=== PATIENT | female | born 1965 | race Caucasian/White ===

== ENCOUNTER 2018-01-29 10:31 | Emergency (ER) | payer OTHER ==
[2018-01-29] MEDS ORDERED: NA CHLORIDE 0.9% 1,000 ML ONE ×2 (11:07→14:00)
[2018-01-29 11:28] LABS: Absolute Lymphocytes (CBC) 1.4 K/uL (0.7-4.9); Absolute Monocytes 0.5 K/uL (0.1-1.3); Absolute Neutrophil 3.6 K/uL (1.8-8.0); Basophils % 0.4 % (0-1.3); Eosinophils % 4.3 % (0-4.4); Hematocrit 34.6 % (36.0-45.0); Lymphocytes % 24.4 % (15.3-44.8); MCH 30.3 pg (27.0-35.0); MCV 88.1 fL (80-100); MPV 8.1 fL (7.6-11.3); Monocytes % 9.3 % (3.3-12.3); RBC Red Blood Cell Count 3.92 M/uL (3.86-4.86)
[2018-01-29 11:34] LABS: Bicarbonate 22 mEq/L (21-31); Glucose Level 131 mg/dL (65-120); Lipase 32 U/L (22-51); Potassium 3.6 mEq/L (3.6-5.0); Sodium Level 135 mEq/L (135-145)
[2018-01-29 11:40] LABS: ALT/SGPT 38 IU/L (10-60); AST/SGOT 22 IU/L (10-42); Albumin 4.1 g/dL (3.2-5.5); Alkaline Phosphatase 169 IU/L (42-121); BUN Blood Urea Nitrogen 5 mg/dL (6-20); Bilirubin Direct < 0.1 mg/dL (0-0.2); Bilirubin Total 0.4 mg/dL (0.3-1.2); Protein, Total 6.5 g/dL (6.0-8.3)
[2018-01-29] MEDS ORDERED: MECLIZINE HCL 12.5 MG TAB ONE (14:00)
--- NOTE | 2018-01-29 14:06 | RAD REPORT ---
EXAM DESCRIPTION: CT - Head Brain Wo Cont - 01/29/2018 1:56 pm CLINICAL HISTORY: Weakness, headache COMPARISON: None. TECHNIQUE: Axial 5 mm thick images of the head were obtained without IV contrast. All CT scans are performed using dose optimization technique as appropriate and may include automated exposure control or mA/KV adjustment according to patient size. FINDINGS: No intracranial hemorrhage, mass, edema or shift of mid-line structures. No acute infarcti on changes seen. No abnormal extra-axial fluid collections. Ventricles are normal. Mastoid air cells and visualized portions of the paranasal sinuses are clear. No acute bony findings. IMPRESSION: Negative non-contrast CT head examination.
--- NOTE | 2018-01-29 15:31 | EDPHYS ---
Physician Documentation [facility] Name: Janice Bosch Age: 52 yrs Sex: Female : 1965 Arrival Date: 01/29/2018 Time: 10:35 Bed 17 Private MD: ED Physician Rob Davis HPI: 01/29 11:04 This 52 yrs old Female presents to ER via Ambulatory with complaints of pm1 Weakness, Decreased Appetite. 11:04 Patient reports flu like symptoms that started two weeks ago that have improved. pm1 Patient initial presentation of symptoms two weeks ago started with a sore throat and a cough. No fevers. Patient's sore throat and cough have resolved but she reports feeling generalized body aches. She reports that her body aches are no different than her chronic fibromyalgia pain. She has not been eating well for the past few days. No nausea, vomiting, or diarrhea. No abdominal pain present. NURSE HEAD: 14:17 LMP N/A - Irregular menses em Historical: - Allergies: 10:43 Reglan; hb 10:43 Requip; hb - Home Meds: 10:43 gabapentin 300 mg Oral cap 2 caps 3 times per day [Active]; amlodipine 5 mg tab once hb daily for Hypertension [Active]; Protonix 40 mg Oral TbEC once daily [Active]; Prozac 40 mg Oral cap 1 cap once daily [Active]; Zanaflex Oral at bedtime [Active]; ziprasidone HCl 60 mg Oral cap at bedtime [Active]; - PMHx: 10:43 Bipolar disorder; bowel obstruction; Fibromyalgia; Hypertension; Migraines; hb - PSHx: 10:43 Hysterectomy; ; Cholecystectomy; Appendectomy; Gastric Bypass; bowel hb obstruction (X 2); - Immunization history:: Adult Immunizations up to date. - Social history:: Smoking status: Patient/guardian denies using tobacco. ROS: 11:04 Eyes: Negative for injury, pain, redness, and discharge, ENT: Negative for injury, pm1 pain, and discharge, Neck: Negative for injury, pain, and swelling, Cardiovascular: Negative for chest pain, palpitations, and edema, Respiratory: Negative for shortness of breath, cough, wheezing, and pleuritic chest pain, Abdomen/GI: Negative for abdominal pain, nausea, vomiting, diarrhea, and constipation, Back: Negative for injury and pain, MS/Extremity: Negative for injury and deformity, Skin: Negative for injury, rash, and discoloration. 11:04 Constitutional: Positive for body aches, poor PO intake, Negative for chills, fever. 11:04 Neuro: Positive for headache, weakness, Negative for numbness, syncope, near syncope, tingling. Exam: 11:04 Constitutional: This is a well developed, well nourished patient who is awake, alert, pm1 and in no acute distress. Head/Face: Normocephalic, atraumatic. Eyes: Pupils equal round and reactive to light, extra-ocular motions intact. Lids and lashes normal. Conjunctiva and sclera are non-icteric and not injected. Cornea within normal limits. Periorbital areas with no swelling, redness, or edema. ENT: Nares patent. No nasal discharge, no septal abnormalities noted. Tympanic membranes are normal and external auditory canals are clear. Oropharynx with no redness, swelling, or masses, exudates, or evidence of obstruction, uvula midline. Mucous membranes moist. Neck: Trachea midline, no thyromegaly or masses palpated, and no cervical lymphadenopathy. Supple, full range of motion without nuchal rigidity, or vertebral point tenderness. No Meningismus. Chest/axilla: Normal chest wall appearance and motion. Nontender with no deformity. No lesions are appreciated. Cardiovascular: Regular rate and rhythm with a normal S1 and S2. No gallops, murmurs, or rubs. No pulse deficits. Respiratory: Lungs have equal breath sounds bilaterally, clear to auscultation and percussion. No rales, rhonchi or wheezes noted. No increased work of breathing, no retractions or nasal flaring. Abdomen/GI: Soft, non-tender, with normal bowel sounds. No distension or tympany. No guarding or rebound. No evidence of tenderness throughout. Back: No spinal tenderness. No costovertebral tenderness. Full range of motion. Skin: Warm, dry with normal turgor. Normal color with no rashes, no lesions, and no evidence of cellulitis. MS/ Extremity: Pulses equal, no cyanosis. Neurovascular intact. Full, normal range of motion. 11:04 Neuro: Orientation: is normal, Mentation: is normal, Cerebellar function: normal finger to nose testing, Motor: is normal, Sensation: is normal, no obvious gross deficits, Gait: is steady, at a normal pace, without difficulty. Vital Signs: 10:43 BP 92 / 67; Pulse 57; Resp 16; Temp 98; Pulse Ox 100% on R/A; Weight 63.5 kg; Height 5 hb ft. 2 in. (157.48 cm); Pain 7/10; 11:00 BP 110 / 71; Pulse 51; Resp 16; Pulse Ox 99% on R/A; Pain 0/10; em 12:05 BP 109 / 69; Pulse 49; Resp 18; Pulse Ox 99% on R/A; em 12:58 BP 100 / 60; Pulse 48; Resp 18; Pulse Ox 100% on R/A; em 14:05 BP 110 / 56; Pulse 48; Resp 18; Pulse Ox 99% on R/A; em 15:05 BP 141 / 84; Pulse 53; Resp 16; Pulse Ox 100% on R/A; em 15:59 BP 116 / 76; Pulse 54; Resp 18; Temp 97.8(O); Pulse Ox 100% on R/A; Pain 0/10; em 10:43 Body Mass Index 25.61 (63.50 kg, 157.48 cm) hb MDM: 10:49 Patient medically screened. pm1 13:30 ED course: Patient with history of vertigo and feels same sensation of spinning. pm1 Patient has taken medications for it with improvement in the past. 15:27 ED course: Patient is feeling better and hungry and wants to go home to eat. Patient pm1 feeling better after medications and NS given in the the ER.. 15:27 Data reviewed: vital signs. Data interpreted: Pulse oximetry: on room air is 100 %. pm1 Interpretation: normal. Counseling: I had a detailed discussion with the patient and/or guardian regarding: the historical points, exam findings, and any diagnostic results supporting the discharge/admit diagnosis, lab results, radiology results, the need for outpatient follow up, to return to the emergency department if symptoms worsen or persist or if there are any questions or concerns that arise at home. 01/29 10:59 Order name: Basic Metabolic Panel; Complete Time: 12:04 pm1 01/29 10:59 Order name: CBC with Diff; Complete Time: 12:04 pm1 01/29 10:59 Order name: Hepatic Function; Complete Time: 12:04 pm1 01/29 10:59 Order name: Lipase; Complete Time: 12:04 pm1 01/29 11:22 Order name: Glucose, Ancillary Testing; Complete Time: 12:04 EDMS 01/29 13:30 Order name: CT Head Brain wo Cont; Complete Time: 14:07 pm1 01/29 10:59 Order name: IV Saline Lock; Complete Time: 11:24 pm1 01/29 10:59 Order name: Labs collected and sent; Complete Time: 11:24 pm1 01/29 10:59 Order name: Urine Dipstick-Ancillary (obtain specimen); Complete Time: 12:23 pm1 Administered Medications: 11:25 Drug: NS 0.9% 1000 ml Route: IV; Rate: 1000 ml; Site: right antecubital; em 15:30 Follow up: IV Status: Completed infusion; IV Intake: 1000ml em 14:12 Drug: Meclizine 50 mg Route: PO; em 15:30 Follow up: Response: No adverse reaction em 14:12 Drug: NS 0.9% 1000 ml Route: IV; Rate: 1000 ml; Site: right antecubital; em 15:30 Follow up: IV Status: Completed infusion; IV Intake: 1000ml em Disposition: 18:55 Co-signature as Attending Physician, Rob Davis MD. Disposition: 01/29/18 15:30 Discharged to Home. Impression: Headache, Benign paroxysmal vertigo. - Condition is Stable. - Discharge Instructions: Benign Positional Vertigo, General Headache Without Cause. - Prescriptions for Meclizine 25 mg Oral Tablet - take 1 tablet by ORAL route every 8 hours As needed; 30 tablet. - Medication Reconciliation Form, Thank You Letter form. - Follow up: Emergency Department; When: As needed; Reason: Worsening of condition. Follow up: Private Physician; When: 2 - 3 days; Reason: Recheck today's complaints, Continuance of care, Re-evaluation by your physician. - Problem is new. - Symptoms have improved. Signatures: Dispatcher [employer] EDMS Zackary Ibarra, PUBLISHING DIRECTOR PUBLISHING DIRECTOR em Nik Griffin, HI LOW TRUCK DRIVER HI LOW TRUCK DRIVER pm1 Ashley Toledo, RN RN Rob Brown MD MD
--- NOTE | 2018-01-29 15:31 | ER ---
Nurse's Notes [facility] Name: Janice Bosch Age: 52 yrs Sex: Female : 1965 Arrival Date: 01/29/2018 Time: 10:35 Bed 17 Private MD: Diagnosis: Headache;Benign paroxysmal vertigo Presentation: 01/29 10:41 Presenting complaint: Patient states: I had the flu 2 weeks ago, and most of my hb symptoms have resolved but I still feel very weak, have a headache, body aches, and have no energy. 10:41 Method Of Arrival: Ambulatory hb 10:42 Transition of care: patient was not received from another setting of care. Onset of hb symptoms is unknown. Care prior to arrival: None. 10:42 Acuity: BONITA 3 hb 10:42 Initial Sepsis Screen: Does the patient meet any 2 criteria? No. Patient's initial hb sepsis screen is negative. Does the patient have a suspected source of infection? No. Patient's initial sepsis screen is negative. 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: 14:17 LMP N/A - Irregular menses em Historical: - Allergies: 10:43 Reglan; hb 10:43 Requip; hb - Home Meds: 10:43 gabapentin 300 mg Oral cap 2 caps 3 times per day [Active]; amlodipine 5 mg tab once hb daily for Hypertension [Active]; Protonix 40 mg Oral TbEC once daily [Active]; Prozac 40 mg Oral cap 1 cap once daily [Active]; Zanaflex Oral at bedtime [Active]; ziprasidone HCl 60 mg Oral cap at bedtime [Active]; - PMHx: 10:43 Bipolar disorder; bowel obstruction; Fibromyalgia; Hypertension; Migraines; hb - PSHx: 10:43 Hysterectomy; ; Cholecystectomy; Appendectomy; Gastric Bypass; bowel hb obstruction (X 2); - Immunization history:: Adult Immunizations up to date. - Social history:: Smoking status: Patient/guardian denies using tobacco. Screenin:42 Abuse screen: Denies threats or abuse. Nutritional screening: No deficits noted. em Tuberculosis screening: No symptoms or risk factors identified. Fall Risk None identified. Assessment: 11:12 General: Appears in no apparent distress. uncomfortable, Behavior is calm, cooperative. em Pain: Denies pain. Neuro: Level of Consciousness is awake, alert, obeys commands, Oriented to person, place, time, situation, Moves all extremities. Speech is normal, Pupils are PERRLA. Cardiovascular: Capillary refill < 3 seconds Patient's skin is warm and dry. Cardiovascular: Heart tones S1 S2 present. Respiratory: Airway is patent Respiratory effort is even, unlabored, Breath sounds are clear bilaterally. GI: Abdomen is flat, non-distended. GI: Reports nausea, vomiting, Patient currently denies diarrhea. : Denies. EENT: No signs and/or symptoms were reported regarding the EENT system. Derm: Skin is intact, Skin is pink, warm \T\ dry. Musculoskeletal: Range of motion: intact in all extremities. 11:20 Reassessment: Patient appears in no apparent distress at this time. No changes from iw previously documented assessment. I agree with above assessment by Zackary Ibarra LVN. 12:05 Reassessment: Patient appears in no apparent distress at this time. Patient and/or em family updated on plan of care and expected duration. Pain level reassessed. Patient is alert, oriented x 3, equal unlabored respirations, skin warm/dry/pink. Patient states symptoms have not improved. 12:56 Reassessment: Patient appears in no apparent distress at this time. Patient and/or em family updated on plan of care and expected duration. Pain level reassessed. Patient is alert, oriented x 3, equal unlabored respirations, skin warm/dry/pink. pt reports having a history of vertigo, sti c/o dizziness. Patient states symptoms have not improved. 14:17 Reassessment: Patient appears in no apparent distress at this time. Patient and/or em family updated on plan of care and expected duration. Pain level reassessed. Patient is alert, oriented x 3, equal unlabored respirations, skin warm/dry/pink. 15:30 Reassessment: Patient appears in no apparent distress at this time. Patient and/or em family updated on plan of care and expected duration. Pain level reassessed. Patient is alert, oriented x 3, equal unlabored respirations, skin warm/dry/pink. Vital Signs: 10:43 BP 92 / 67; Pulse 57; Resp 16; Temp 98; Pulse Ox 100% on R/A; Weight 63.5 kg; Height 5 hb ft. 2 in. (157.48 cm); Pain 7/10; 11:00 BP 110 / 71; Pulse 51; Resp 16; Pulse Ox 99% on R/A; Pain 0/10; em 12:05 BP 109 / 69; Pulse 49; Resp 18; Pulse Ox 99% on R/A; em 12:58 BP 100 / 60; Pulse 48; Resp 18; Pulse Ox 100% on R/A; em 14:05 BP 110 / 56; Pulse 48; Resp 18; Pulse Ox 99% on R/A; em 15:05 BP 141 / 84; Pulse 53; Resp 16; Pulse Ox 100% on R/A; em 15:59 BP 116 / 76; Pulse 54; Resp 18; Temp 97.8(O); Pulse Ox 100% on R/A; Pain 0/10; em 10:43 Body Mass Index 25.61 (63.50 kg, 157.48 cm) hb ED Course: 10:35 Patient arrived in ED. mr 10:44 Arm band placed on right wrist. hb 10:46 Ashley Toledo, RN is Primary Nurse. hb 10:47 Nik Griffin NP is PHCP. pm1 10:47 Rob Davis MD is Attending Physician. pm1 10:48 Triage completed. hb 11:04 Zackary Ibarra LVN is Primary Nurse. em 11:25 Patient has correct armband on for positive identification. Placed in gown. Bed in low em position. Call light in reach. Side rails up X2. Adult w/ patient. 11:25 Initial lab(s) drawn, by me, sent to lab. Inserted saline lock: 22 gauge in right em antecubital area, using aseptic technique. Blood collected. 13:55 CT completed. Patient tolerated procedure well. Patient moved back from CT. cw1 13:56 CT Head Brain wo Cont In Process Unspecified. EDMS 14:18 No provider procedures requiring assistance completed. em 15:58 IV discontinued, intact, bleeding controlled, No redness/swelling at site. Pressure em dressing applied. Administered Medications: 11:25 Drug: NS 0.9% 1000 ml Route: IV; Rate: 1000 ml; Site: right antecubital; em 15:30 Follow up: IV Status: Completed infusion; IV Intake: 1000ml em 14:12 Drug: Meclizine 50 mg Route: PO; em 15:30 Follow up: Response: No adverse reaction em 14:12 Drug: NS 0.9% 1000 ml Route: IV; Rate: 1000 ml; Site: right antecubital; em 15:30 Follow up: IV Status: Completed infusion; IV Intake: 1000ml em Intake: 15:30 IV: 1000ml; Total: 1000ml. em 15:30 IV: 1000ml; Total: 2000ml. em Outcome: 15:30 Discharge ordered by MD. pm1 15:59 Discharged to home ambulatory. em 15:59 Condition: good 15:59 Discharge instructions given to patient, family, Instructed on discharge instructions, follow up and referral plans. medication usage, Demonstrated understanding of instructions, follow-up care, medications, Prescriptions given X 1. 16:00 Patient left the ED. em Signatures: Dispatcher [employer] EDShannan Cunningham, Zackary, TUMBLER DYEING MACHINE OPERATOR TUMBLER DYEING MACHINE OPERATOR em Lesley Wright, Franchesca Corona RN cw1 Nik Griffin, PUNCH PRESS FEEDER PUNCH PRESS FEEDER pm1 Ashley Toledo RN RN hb Corrections: (The following items were deleted from the chart) 10:48 10:42 Initial Sepsis Screen: Does the patient meet any 2 criteria? hb hb
[2018-01-29 16:10] VITALS: O2SAT 100
[2018-01-29 16:11] VITALS: BP 116/76; TEMP 97.8
== END 2018-01-29 16:00 | disposition home or self-care (01) ==
LOC: ER 10:31
DX: H81.10 Benign paroxysmal vertigo, unspecified ear (principal); I10 Essential (primary) hypertension; F31.9 Bipolar disorder, unspecified; Z88.8 Allergy status to other drugs, medicaments and biological substances
CPT/HCPCS: 36415; 70450; 80048; 80076; 82962; 83690; 85025; 96360; 96361; 99284; J7030 ×2

== ENCOUNTER 2018-02-11 12:39 | Emergency (ER) | payer OTHER ==
--- NOTE | 2018-02-11 13:35 | ER ---
Nurse's Notes [facility] Name: Janice Bosch Age: 52 yrs Sex: Female : 1965 Arrival Date: 02/11/2018 Time: 12:43 Bed 23 Private MD: Davin Platt Diagnosis: Encounter for wound check Presentation: 02/11 12:51 Presenting complaint: Patient states: I had sx on my lower back between L4-L5 for pain la1 and my wound has opened back up and is draining clear/blood fluid. Transition of care: patient was not received from another setting of care. Onset of symptoms was February 11, 2018. Initial Sepsis Screen: Does the patient meet any 2 criteria? No. Patient's initial sepsis screen is negative. Does the patient have a suspected source of infection? No. Patient's initial sepsis screen is negative. Care prior to arrival: None. 12:51 Method Of Arrival: Wheelchair la1 12:51 Acuity: BONITA 3 la1 YOKE SETTER: 13:11 LMP N/A - Post-menopause tl3 Historical: - Allergies: 12:52 Reglan; la1 12:52 Requip; la1 - Home Meds: 13:13 amlodipine 5 mg tab once daily for Hypertension [Active]; gabapentin 300 mg Oral cap 2 tl3 caps 3 times per day [Active]; Protonix 40 mg Oral TbEC once daily [Active]; Prozac 40 mg Oral cap 1 cap once daily [Active]; ziprasidone HCl 60 mg Oral cap at bedtime [Active]; Zanaflex Oral at bedtime [Active]; - PMHx: 12:52 Bipolar disorder; bowel obstruction; Fibromyalgia; Hypertension; Migraines; la1 - PSHx: 12:52 ; Cholecystectomy; Appendectomy; Hysterectomy; la1 - Immunization history:: Adult Immunizations up to date. - Social history:: Smoking status: Patient/guardian denies using tobacco. Screenin:07 Abuse screen: Denies threats or abuse. Nutritional screening: No deficits noted. tl3 Tuberculosis screening: No symptoms or risk factors identified. Fall Risk None identified. Assessment: 13:07 General: Appears distressed, uncomfortable, well groomed, well developed, well tl3 nourished, Behavior is calm, cooperative, appropriate for age. Pain: Complains of pain in lumbar area Pain currently is 7 out of 10 on a pain scale. Neuro: Level of Consciousness is awake, alert, obeys commands, Oriented to person, place, time, situation, Appropriate for age. Cardiovascular: No deficits noted. Heart tones S1 S2 present Capillary refill < 3 seconds in bilateral fingers. Respiratory: Breath sounds are clear bilaterally. GI: No signs and/or symptoms were reported involving the gastrointestinal system. : No signs and/or symptoms were reported regarding the genitourinary system. EENT: No signs and/or symptoms were reported regarding the EENT system. Derm: No signs and/or symptoms reported regarding the dermatologic system. Derm: Wound noted lumbar area. Musculoskeletal:. 13:07 Reassessment: pt reports spinal surgery on Tuesday, drainage coming from surgical tl3 site. Dressing changed and site looks WNL, no redness and small amt of bloody discharge noted, site well approximated. Vital Signs: 12:52 BP 147 / 85; Pulse 97; Resp 16; Temp 98.2; Pulse Ox 100% on R/A; Weight 65.77 kg; la1 Height 5 ft. 2 in. (157.48 cm); 13:07 BP 138 / 79; Pulse 85; Resp 18; Pulse Ox 96% on R/A; tl3 13:07 BP 139 / 74; Pulse 84; Resp 18; Pulse Ox 100% on R/A; tl3 12:52 Body Mass Index 26.52 (65.77 kg, 157.48 cm) la1 ED Course: 12:43 Patient arrived in ED. mr 12:43 Davin Platt, DO is Private Physician. mr 12:52 Triage completed. la1 12:53 Arm band placed on left wrist. la1 13:01 Alyssa Braga, LEONID is Primary Nurse. tl3 13:01 Eric Zarco PA is PHCP. jr8 13:01 Mj Jang MD is Attending Physician. jr8 13:07 No apparent distress. Awaiting ED provider evaluation. tl3 13:07 Patient has correct armband on for positive identification. Bed in low position. Call tl3 light in reach. Side rails up X 1. Adult w/ patient. Pulse ox on. NIBP on. 13:07 No provider procedures requiring assistance completed. tl3 13:07 Dressings: Band aid x 1 back and lumbar area non-adherent dressing x 1 back and lumbar tl3 area. Wound care:. Wound care: located on lumbar area Patient tolerated well. Administered Medications: No medications were administered Outcome: 13:34 Discharge ordered by MD. ram 14:01 Patient left the ED. tl3 Signatures: Shannan Angel mr Eric Zarco PA PA jr8 Ernst Flaherty RN RN la1 Alyssa Braga RN RN tl3
--- NOTE | 2018-02-11 13:35 | EDPHYS ---
Physician Documentation [facility] Name: Janice Bosch Age: 52 yrs Sex: Female : 1965 Arrival Date: 02/11/2018 Time: 12:43 Bed 23 Private MD: Lc [facility] ED Physician Mj Jang HPI: 02/11 13:34 This 52 yrs old Female presents to ER via Wheelchair with complaints of jr8 Surgical sight reopened. 13:34 Patient presents to ED for recheck of: incision site. The affected area is on the back. jr8 The patient has not experienced similar symptoms in the past. The patient has not recently seen a physician. Patient had recent spinal surgery. Noted to have drainage from wound last night. Concerned for infection . 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 N/A - Post-menopause tl3 Historical: - Allergies: 12:52 Reglan; la1 12:52 Requip; la1 - Home Meds: 13:13 amlodipine 5 mg tab once daily for Hypertension [Active]; gabapentin 300 mg Oral cap 2 tl3 caps 3 times per day [Active]; Protonix 40 mg Oral TbEC once daily [Active]; Prozac 40 mg Oral cap 1 cap once daily [Active]; ziprasidone HCl 60 mg Oral cap at bedtime [Active]; Zanaflex Oral at bedtime [Active]; - PMHx: 12:52 Bipolar disorder; bowel obstruction; Fibromyalgia; Hypertension; Migraines; la1 - PSHx: 12:52 ; Cholecystectomy; Appendectomy; Hysterectomy; la1 - Immunization history:: Adult Immunizations up to date. - Social history:: Smoking status: Patient/guardian denies using tobacco. ROS: 13:34 Eyes: Negative for injury, pain, redness, and discharge, ENT: Negative for injury, jr8 pain, and discharge, Neck: Negative for injury, pain, and swelling, Cardiovascular: Negative for chest pain, palpitations, and edema, Respiratory: Negative for shortness of breath, cough, wheezing, and pleuritic chest pain, Abdomen/GI: Negative for abdominal pain, nausea, vomiting, diarrhea, and constipation, Back: Negative for injury and pain, MS/Extremity: Negative for injury and deformity, Neuro: Negative for headache, weakness, numbness, tingling, and seizure. 13:34 Skin: Positive for drainage from incision site. Exam: 13:34 Cardiovascular: Regular rate and rhythm with a normal S1 and S2. No gallops, murmurs, jr8 or rubs. Normal PMI, no JVD. No pulse deficits. Respiratory: Lungs have equal breath sounds bilaterally, clear to auscultation and percussion. No rales, rhonchi or wheezes noted. No increased work of breathing, no retractions or nasal flaring. Back: No spinal tenderness. No costovertebral tenderness. Full range of motion. MS/ Extremity: Pulses equal, no cyanosis. Neurovascular intact. Full, normal range of motion. Neuro: Awake and alert, GCS 15, oriented to person, place, time, and situation. Cranial nerves II-XII grossly intact. Motor strength 5/5 in all extremities. Sensory grossly intact. Cerebellar exam normal. Normal gait. 13:34 Skin: approximately 3 inch incision noted to low back midline. Serous drainage noted. No exudative discharge seen or expressed. No surrounding erythema or cellulitis. Mild tenderness to palpation . Vital Signs: 12:52 BP 147 / 85; Pulse 97; Resp 16; Temp 98.2; Pulse Ox 100% on R/A; Weight 65.77 kg; la1 Height 5 ft. 2 in. (157.48 cm); 13:07 BP 138 / 79; Pulse 85; Resp 18; Pulse Ox 96% on R/A; tl3 13:07 BP 139 / 74; Pulse 84; Resp 18; Pulse Ox 100% on R/A; tl3 12:52 Body Mass Index 26.52 (65.77 kg, 157.48 cm) la1 MDM: 13:01 Patient medically screened. jr8 13:31 Data reviewed: vital signs, nurses notes, and as a result, I will discharge patient. jr8 Data interpreted: Pulse oximetry: on room air is 96 %. Interpretation: normal. Counseling: I had a detailed discussion with the patient and/or guardian regarding: the historical points, exam findings, and any diagnostic results supporting the discharge/admit diagnosis, the need for outpatient follow up, spinal surgeon, to return to the emergency department if symptoms worsen or persist or if there are any questions or concerns that arise at home. ED course: Detailed discussion with patient and family that at this time incision site is without discharge, erythema, or surrounding cellulitis. Small amount of serous fluid noted. Mild tenderness to palpation. No fluctuance under wound. More then likely the fluid that was draining last night which we saw today was a seroma. No other signs for infection. Precautions given to watch for fever and increased pain. Patient would f/u with surgeon or come back . 02/11 13:26 Order name: Wound dressing; Complete Time: 13:35 jr8 Administered Medications: No medications were administered Disposition: 02/11/18 13:34 Discharged to Home. Impression: Encounter for wound check . - Condition is Stable. - Discharge Instructions: Incision Care. - Medication Reconciliation Form, Thank You Letter, Antibiotic Education, Prescription Opioid Use form. - Follow up: Private Physician; When: 7 - 10 days; Reason: Recheck today's complaints, Continuance of care, Re-evaluation by your physician. - Problem is new. - Symptoms have improved. Addendum: 02/13/2018 08:55 Co-signature as Attending Physician, Mj Jang MD I agree with the assessment and c nicholas plan of care. Signatures: Mj Jang MD MD cha Roszak, Josh, PA PA jr8 Ernst Flaherty, RN RN la1 Alyssa Braga, RN RN tl3 Corrections: (The following items were deleted from the chart) 02/11 14:01 13:34 02/11/2018 13:34 Discharged to Home. Impression: Encounter for wound check . tl3 Condition is Stable. Forms are Medication Reconciliation Form, Thank You Letter, Antibiotic Education, Prescription Opioid Use. Follow up: Private Physician; When: 7 - 10 days; Reason: Recheck today's complaints, Continuance of care, Re-evaluation by your physician. Problem is new. Symptoms have improved. jr8
[2018-02-11 14:05] VITALS: TEMP 98.2
[2018-02-11 14:06] VITALS: BP 138/79; O2SAT 96
== END 2018-02-11 14:01 | disposition home or self-care (01) ==
LOC: ER 12:39
DX: Z48.01 Encounter for change or removal of surgical wound dressing (principal); I10 Essential (primary) hypertension; F31.9 Bipolar disorder, unspecified; Z88.8 Allergy status to other drugs, medicaments and biological substances
CPT/HCPCS: 99283

== ENCOUNTER 2018-10-18 10:54 | Emergency (ER) | payer OTHER ==
--- OUTSIDE RECORDS SUMMARY | 2018-10-18 10:57 | XMS REPORT ---
:1965 Author Organization [employer] Care Team Providers Name Role Phone Lc Davin Provider Role Unavailable Allergies No Known Allergies Problems Problem Type Condition Code Onset Dates Condition Status Problem Irritable bowel syndrome, K58.9 Active unspecified type Problem Bipolar disorder F31.9 Active Problem Migraine without aura and without G43.009 Active status migrainosus, not intractable Problem Solitary cyst of left breast N60.02 Active Problem Benign essential hypertension I10 Active Problem Depression with anxiety F41.8 Active Problem GERD without esophagitis K21.9 Active Problem Constipation, unspecified K59.00 Active constipation type Problem Nausea R11.0 Active Problem Back pain with left-sided M54.10 Active radiculopathy Problem History of intussusception Z87.19 Active Problem Hemorrhoids, unspecified hemorrhoid K64.9 Active type Problem Fibromyalgia M79.7 Active Medications No Known Medications Results No Known Results Summary Purpose [employer] SBV Submission
--- OUTSIDE RECORDS SUMMARY | 2018-10-18 10:57 | XMS REPORT ---
:1965 Author Organization [employer] Care Team Providers Name Role Phone Lc [facility] Provider Role Unavailable Allergies, Adverse Reactions, Alerts Substance Reaction Event Type Requip Info Not Available Drug Allergy Reglan Info Not Available Drug Allergy surgical tape Info Not Available Non Drug Allergy Problems Problem Type Condition Code Onset Dates Condition Status Problem Irritable bowel syndrome, K58.9 Active unspecified type Problem Bipolar disorder F31.9 Active Problem Migraine without aura and without G43.009 Active status migrainosus, not intractable Problem GERD without esophagitis K21.9 Active Assessment GERD without esophagitis K21.9 Active Problem Constipation, unspecified K59.00 Active constipation type Assessment Hemorrhoids, unspecified hemorrhoid K64.9 Active type Assessment Fibromyalgia M79.7 Active Problem Nausea R11.0 Active Problem Back pain with left-sided M54.10 Active radiculopathy Problem History of intussusception Z87.19 Active Problem Hemorrhoids, unspecified hemorrhoid K64.9 Active type Problem Fibromyalgia M79.7 Active Assessment Benign essential hypertension I10 Active Assessment Depression with anxiety F41.8 Active Assessment Nausea R11.0 Active Assessment Bipolar disorder F31.9 Active Problem Solitary cyst of left breast N60.02 Active Assessment Migraine without aura and without G43.009 Active status migrainosus, not intractable Problem Benign essential hypertension I10 Active Assessment Constipation, unspecified K59.00 Active constipation type Assessment Back pain with left-sided M54.10 Active radiculopathy Problem Depression with anxiety F41.8 Active Medications Medication Code Code Instructions Start End Status Dosage System Date Date Clonazepam [facility] 86502971805 0.5 MG Orally Active 1 tablet at Once a day PRN bedtime Anxiety Prozac [facility] 23499600580 40 MG Orally Active 1 capsule Once a day Propranolol HCl ND 14961640075 10 MG Orally Active 1 tablet on an Twice a day empty stomach Zanaflex [facility] 81275932009 4 MG Orally Active 1 capsule as Once at needed bedtime Vitamin D3 [facility] 64790602074 2000 UNIT Active 1 capsule Orally Once a day baclofen NDC 0 10mg PO Once Active 1 tab as at bedtime as needed for needed pain Gabapentin ND 29157041311 600 MG Orally Active 1 tablet AM Twice a day and 2 Tabs PM Pantoprazole ND 97277189133 40 MG Orally Active 1 tablet Sodium Once a day Promethazine-DM [facility] 34776497010 6.25-15 MG/5ML Active 5 ml as needed Orally every 6 Nausea/Vomitin hrs g Linzess [facility] 40494769750 290 mcg PO QHS Sep 11December Active 1 tab prn 2018 07, constipation 2019 Geodon [facility] 69027972044 60 MG Orally Active 1 capsule with Twice a day food Ultram [facility] 55628253423 50 MG Orally Active 1 tablet as every 6 hrs needed Iron Supplement NDC 0 Active not defined Results No Known Results Summary Purpose [employer] Submission
[2018-10-18 11:16] LABS: Absolute Lymphocytes (CBC) 1.2 K/uL (0.7-4.9); Absolute Monocytes 0.5 K/uL (0.1-1.3); Basophils % 0.5 % (0-1.3); Eosinophils % 4.4 % (0-4.4); Hematocrit 31.1 % (36.0-45.0); MPV 7.8 fL (7.6-11.3); Monocytes % 10.7 % (3.3-12.3); RBC Red Blood Cell Count 3.35 M/uL (3.86-4.86)
[2018-10-18 11:50] LABS: ALT/SGPT 14 U/L (12-78); AST/SGOT 10 U/L (15-37); Alkaline Phosphatase 117 U/L (45-117); BUN Blood Urea Nitrogen 14 mg/dL (7-18); Bicarbonate 20 mmol/L (21-32); Bilirubin Direct < 0.1 mg/dL (0-0.2); Bilirubin Total 0.2 mg/dL (0.2-1.0); Glucose Level 123 mg/dL (74-106); Potassium 3.6 mmol/L (3.5-5.1); Protein, Total 5.7 g/dL (6.4-8.2); Sodium Level 141 mmol/L (136-145); Troponin (Emerg Dept Use Only) < 0.02 ng/mL (0.0-0.045)
[2018-10-18] MEDS ORDERED: GLUCAGON 1 MG/VIAL ONE (11:56)
--- NOTE | 2018-10-18 12:00 | RAD REPORT ---
EXAM DESCRIPTION: CT - Head Brain Wo Cont - 10/18/2018 11:54 am CLINICAL HISTORY: AMS Drowsiness COMPARISON: Head Brain Wo Cont dated 01/29/2018 TECHNIQUE: All CT scans are performed using dose optimization technique as appropriate and may inclu de automated exposure control or mA/KV adjustment according to patient size. FINDINGS: No intracranial hemorrhage, hydrocephalus or extra-axial fluid collection.No areas of brai n edema or evidence of midline shift. The paranasal sinuses and mastoids are clear. The calvarium is intact. IMPRESSION: No acute intracranial abnormality.
[2018-10-18 12:07] LABS: Protime INR 0.96
[2018-10-18] MEDS ORDERED: NA CHLORIDE 0.9% 1,000 ML ONE (12:31)
--- NOTE | 2018-10-18 13:17 | RAD REPORT ---
EXAM DESCRIPTION: RAD - Chest Single View - 10/18/2018 1:11 pm CLINICAL HISTORY: AMS, somnolent, eval for aspiration Chest pain. COMPARISON: ABDOMEN ACUTE SERIES dated 01/29/2015; ABDOMEN 1 VIEW KUB dated 09/06/2014; CHEST SINGLE V IEW dated 09/04/2014; ABDOMEN 1 VIEW KUB dated 04/26/2013 FINDINGS: Portable technique limits examination quality. The lungs are grossly clear. The heart is normal in size. No displaced fractures. IMPRESSION: No acute intrathoracic process suspected.
--- NOTE | 2018-10-18 14:00 | EKG ---
Test Date: 2018-10-18 Test Time: 11:29:06 Back Padder: NIKOLAI MEASUREMENT RESULTS: Intervals: Rate: 50 WA: 164 QRSD: 82 QT: 526 QTc: 479 Marissa: P: 56 WA: 164 QRS: -14 T: 0 INTERPRETIVE STATEMENTS: Sinus bradycardia Otherwise normal ECG Compared to ECG 06/23/2017 16:16:25 Sinus rhythm no longer present Electronically Signed On 10-18-18 14:00:20 HAT LINER by Binu Arroyo
[2018-10-18 14:14] LABS: Urine Blood NEGATIVE (NEG); Urine Glucose NEGATIVE (NEG); Urine Protein NEGATIVE (NEG); Urine Specific Gravity <1.005 (1.005-1.030); Urine pH 6.5 (5.0-7.0)
[2018-10-18 14:34] LABS: Barbiturates NEGATIVE (NEGATIVE); Benzodiazepines NEGATIVE (NEGATIVE); Cocaine NEGATIVE (NEGATIVE); METHAMPHETAM NEGATIVE (NEGATIVE); Methadone NEGATIVE (NEGATIVE); Opiates NEGATIVE (NEGATIVE); Phencyclidine NEGATIVE (NEGATIVE); THC Cannibis NEGATIVE (NEGATIVE)
[2018-10-18] MEDS ORDERED: Calcium Chloride 13.6 mEq (=1 gm)/100 mL NS IV ONE ×2 (15:00)
--- NOTE | 2018-10-18 15:17 | RAD REPORT ---
EXAM DESCRIPTION: RAD - Forearm Left - 10/18/2018 2:53 pm CLINICAL HISTORY: PAIN Swelling COMPARISON: None FINDINGS: Right forearm and right elbow-multiple projections No bone or joint abnormality.
--- NOTE | 2018-10-18 16:01 | ER ---
Nurse's Notes [facility] Name: Janice Bosch Age: 52 yrs Sex: Female : 1965 Arrival Date: 10/18/2018 Time: 10:59 Bed 3 Private MD: Diagnosis: Altered mental status, unspecified;Dehydration Presentation: 10/18 11:09 Presenting complaint: EMS states: pt was found by bystander/family/friend to be drowsy sg and sleeping with pill bottles around the pt, pt reports taking prescribed medicaitons, reports "propranolol and xanax" but not reporting how much of medication she took at this time pt reports she called EMS because she did not know where or who she was. Transition of care: patient was not received from another setting of care. Onset of symptoms was October 18, 2018. Risk Assessment: Do you want to hurt yourself or someone else? Unable to obtain. Initial Sepsis Screen: Does the patient meet any 2 criteria? No. Patient's initial sepsis screen is negative. Does the patient have a suspected source of infection? No. Patient's initial sepsis screen is negative. Care prior to arrival: Medication(s) given: Normal saline infusion, 500 mL, Narcan 1 mg IVP, no effect per EMS IV initiated. 20 GA, in the right forearm. 11:09 Method Of Arrival: EMS: [facility] 11:09 Acuity: BONITA 2 sg Historical: - Allergies: 11:08 Reglan; sg 11:08 Requip; sg - Home Meds: 11:08 amlodipine 5 mg tab once daily for Hypertension [Active]; gabapentin 300 mg Oral cap 2 sg caps 3 times per day [Active]; Protonix 40 mg Oral TbEC once daily [Active]; Prozac 40 mg Oral cap 1 cap once daily [Active]; ziprasidone HCl 60 mg Oral cap at bedtime [Active]; 11:43 Geodon 60 mg oral cap 1 cap 2 times per day [Active]; Zanaflex 4 mg Oral tab 2 tabs sv nightly [Active]; propranolol 10 mg Oral tab twice a day [Active]; clonazepam 0.5 mg Oral tab [Active]; baclofen 10 mg Oral tab [Active]; - PMHx: 11:08 Bipolar disorder; bowel obstruction; Fibromyalgia; Migraines; Hypertension; sg - PSHx: 11:08 ; Cholecystectomy; Appendectomy; Hysterectomy; sg - Immunization history:: Adult Immunizations up to date. - Social history:: Smoking status: unknown. - Ebola Screening: : Unable to complete screening because. - Family history:: not pertinent. - Hospitalizations: : No recent hospitalization is reported. Screenin:00 Abuse screen: Denies threats or abuse. Denies injuries from another. Nutritional sg screening: No deficits noted. Tuberculosis screening: No symptoms or risk factors identified. Never had TB. unknown, but pt has been taking pills as is the reason for ED visit today The patient is alert, able to follow commands. The patient does not exhibit slurred or garbled speech The patient is not exhibiting difficulty speaking. The patient does not exhibit difficulty understanding words. The patient is able to swallow own secretions with no drooling or need for suction. Patient tolerated one teaspoon of water. No drooling, immediate coughing, gurgling, or clearing of the throat was noted. The patient tolerated 90mL of water. No drooling, immediate coughing, gurgling, or clearing of the throat was noted. The patient passed the bedside swallow screening. Oral medications may be given as ordered. Contact Physician for further diet orders. Fall Risk None identified. Assessment: 11:30 General: Appears in no apparent distress. comfortable, well groomed, well developed, sg well nourished, Behavior is cooperative, drowsy, quiet. Pain: Denies pain. 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 Speech is slurred, Facial symmetry appears normal. Cardiovascular: Heart tones S1 S2 present Capillary refill is brisk in bilateral fingers Patient's skin is warm and dry. Chest pain is denied. Respiratory: Airway is patent Respiratory effort is even, unlabored, Respiratory pattern is regular, symmetrical, Breath sounds are clear. GI: Abdomen is round Bowel sounds present X 4 quads. : No signs and/or symptoms were reported regarding the genitourinary system. EENT: No signs and/or symptoms were reported regarding the EENT system. Derm: Skin is intact, is healthy with good turgor, Skin is clammy, Skin is pale, Skin temperature is cool. Musculoskeletal: No deficits noted. 12:37 Reassessment: Patient appears in no apparent distress at this time. Patient and/or sg family updated on plan of care and expected duration. Pain level reassessed. pt spouse remains at bedside at this time, awaiting results, will continue to monitor. 12:54 Reassessment: Patient appears in no apparent distress at this time. xray at bedside at sg this time, pt awakens easily to verbal stimuli, is cooperative at this time. 13:01 Reassessment: Patient appears in no apparent distress at this time. at bedside sg evaluating pt at this time, pt awake, answers questions appropriately at this time. 15:10 Reassessment: Patient appears in no apparent distress at this time. Patient and/or sg family updated on plan of care and expected duration. Pain level reassessed. Patient is alert, oriented x 3, equal unlabored respirations, skin warm/dry/pink. pt spouse remains at bedside at this time, awaiting IV James Gluc to infuse at ordered rate, pt reports feeling better, tolerating PO liquids at this time. 15:50 Reassessment: Patient appears in no apparent distress at this time. pt c/o pain at this sg time, from " my toes to my head." notified pt reports pain at this time, pt is now aa\\T\\ox3 at this time, pt family at bedside, updating on results and plan to be DC to home at this time. Vital Signs: 11:04 BP 115 / 70; Pulse 57; Resp 12; Temp 97.7; Pulse Ox 96% on R/A; sg 12:06 BP 86 / 58; Pulse 45; Resp 13; Pulse Ox 96% on R/A; Pain 0/10; sg 12:30 BP 76 / 49; Pulse 45; Resp 13; Pulse Ox 97% on R/A; sg 13:08 BP 91 / 61; Pulse 45; Resp 17; Pulse Ox 98% on R/A; Pain 3/10; sg 13:35 BP 102 / 60; Pulse 48 MON; Resp 14; Pulse Ox 100% on R/A; sg 14:08 BP 107 / 65; Pulse 43; Resp 14; Pulse Ox 100% ; sv 15:07 BP 113 / 79; Pulse 58; Resp 16; Temp 97.8; Pulse Ox 100% on R/A; sg 15:37 BP 122 / 76; Pulse 57; Resp 17; Pulse Ox 100% on R/A; sg 13:08 pt c/o arm pain at this time, notified, an xray has been ordered per pt sg reports a fall several days ago Vitals: 12:06 Cardiac Rhythm Assessment Sinus anel. sg 12:30 Cardiac Rhythm Assessment Sinus anel. sg NIH Stroke Scale Scores: 13:00 NIHSS Score: 0 sg ED Course: 10:59 Patient arrived in ED. rn 10:59 Dale Varghese MD is Attending Physician. rn 11:03 Gabe Don, LEONID is Primary Nurse. sg 11:12 Triage completed. sg 11:12 Arm band placed on. sg 11:43 EKG done, by tablet technician. reviewed by Dale Varghese MD. tc 11:55 CT Head Brain wo Cont In Process Unspecified. EDMS 11:[address] Patient moved back from [address]. sv 13:06 X-ray completed. Portable x-ray completed in exam room. Patient tolerated procedure mh1 well. 13:12 XRAY Chest (1 view) In Process Unspecified. EDMS 14:55 XRAY Elbow LEFT 3 view In Process Unspecified. EDMS 14:55 XRAY Forearm LEFT In Process Unspecified. EDMS 16:31 No provider procedures requiring assistance completed. IV discontinued, intact, ss bleeding controlled, No redness/swelling at site. Pressure dressing applied. 19:39 Notified ED physician of a critical lab result(s). corrected ETOH level of <3. fc Administered Medications: 11:30 Drug: NS 0.9% 1000 ml Route: IV; Rate: 1000 ml; Site: right forearm; sg 12:30 Follow up: IV Status: Completed infusion; IV Intake: 100ml sg 12:00 Drug: Glucagon 1 mg Route: IVP; Site: right forearm; sg 12:30 Follow up: Response: No adverse reaction; No change in condition sg 12:24 Drug: NS 0.9% 1000 ml Route: IV; Rate: 1000 ml; Site: right antecubital; ss 13:45 Follow up: Response: No adverse reaction; Blood pressure is elevated; IV Status: sg Completed infusion; IV Intake: 990ml 14:38 Drug: Calcium Gluconate 1 grams Route: IVPB; Infused Over: 60 mins; Site: right forearm;sg 15:55 Follow up: Response: No adverse reaction; IV Status: Completed infusion sg Intake: 12:30 IV: 100ml; Total: 100ml. sg 13:45 IV: 990ml; Total: 1090ml. sg Outcome: 16:00 Discharge ordered by . rn 16:31 Discharged to home via wheelchair, with family. ss 16:31 Condition: improved 16:31 Discharge instructions given to patient, family, Instructed on discharge instructions, follow up and referral plans. medication usage, Demonstrated understanding of instructions, follow-up care, medications. 16:31 Patient left the ED. NIH Stroke Scale - NIH Stroke Score Date: 10/18/2018 Time: 13:00 Total Score = 0 1a. Level of Consciousness (LOC) - 0(Alert) 1b. Level of Consciousness (LOC) (Year \\T\\ Age) - 0(Both) 1c. LOC Commands (Open \\T\\ Closes Eyes/Recruitment Internship) - 0(Both) 2. Best Gaze (Lateral Gaze Paresis) - 0(Normal) 3. Visual Field Loss - 0(No visual loss) 4. Facial Palsy - 0(Normal) 5a. Left Arm: Motor (10-second hold) - 0(No drift) 5b. Right Arm: Motor (10-second hold) - 0(No drift) 6a. Left Leg: Motor (5-second hold - always test supine) - 0(No drift) 6b. Right Leg: Motor (5-second hold - always test supine) - 0(No drift) 7. Limb Ataxia (finger/nose \\T\\ heel/fleming - test with eyes open) - 0(Absent) 8. Sensory Loss (pinprick arms/legs/face) - 0(Normal) 9. Best Language: Aphasia (description/naming/reading) - 0(No aphasia) 10. Dysarthria (speech clarity - read or repeat words) - 0(Normal) 11. Extinction and Inattention (visual/tactile/auditory/spatial/personal) - 0(No abnormality) Initials: Signatures: Dispatcher [employer] Kristina Bang RN RN sv Gay, Steven, RN RN Jackelin Redmond [facility] Saima Meza RN RN fc Nieto, Roman, MD MD rn Smirch, Shelby, RN RN Rut Le, screening specialist EKG Ttc Corrections: (The following items were deleted from the chart) 11:43 11:08 Home Meds: Zanaflex Oral at bedtime; sg sv 12:39 11:30 General: Appears in no apparent distress. comfortable, well groomed, well sg developed, well nourished, Behavior is calm, cooperative, appropriate for age, sg
--- NOTE | 2018-10-18 16:01 | EDPHYS ---
Physician Documentation [facility] Name: Janice Bosch Age: 52 yrs Sex: Female : 1965 Arrival Date: 10/18/2018 Time: 10:59 Bed 3 Private MD: ED Physician Dale Varghese HPI: 10/18 11:13 This 52 yrs old Female presents to ER via EMS with complaints of Altered rn Mental Status. 11:13 The patient presents with confusion, decreased mental status, decreased responsiveness. rn Onset: The symptoms/episode began/occurred at an unknown time. Possible causes: unknown. Current symptoms: In the emergency department the patient's symptoms are unchanged from the initial presentation. It is unknown whether or not the patient has had similar symptoms in the past. Per EMS, patient called this morning because didn't feel well, reports felt fine last night, took, xanax and BP med, possibly pain pill reports woke up not feeling good, didn't eat, she didn't know where she was so called 911. Denies focal weakness/visual disturbance/paresthesias. Denies head trauma. Reports headache. Given narcan by EMS without response. . Historical: - Allergies: 11:08 Reglan; sg 11:08 Requip; sg - Home Meds: 11:08 amlodipine 5 mg tab once daily for Hypertension [Active]; gabapentin 300 mg Oral cap 2 sg caps 3 times per day [Active]; Protonix 40 mg Oral TbEC once daily [Active]; Prozac 40 mg Oral cap 1 cap once daily [Active]; ziprasidone HCl 60 mg Oral cap at bedtime [Active]; 11:43 Geodon 60 mg oral cap 1 cap 2 times per day [Active]; Zanaflex 4 mg Oral tab 2 tabs sv nightly [Active]; propranolol 10 mg Oral tab twice a day [Active]; clonazepam 0.5 mg Oral tab [Active]; baclofen 10 mg Oral tab [Active]; - PMHx: 11:08 Bipolar disorder; bowel obstruction; Fibromyalgia; Migraines; Hypertension; sg - PSHx: 11:08 ; Cholecystectomy; Appendectomy; Hysterectomy; sg - Immunization history:: Adult Immunizations up to date. - Social history:: Smoking status: unknown. - Ebola Screening: : Unable to complete screening because. - Family history:: not pertinent. - Hospitalizations: : No recent hospitalization is reported. ROS: 11:13 Constitutional: Negative for fever, chills, and weight loss, Eyes: Negative for injury, rn pain, redness, and discharge, Cardiovascular: Negative for chest pain, palpitations, and edema, Respiratory: Negative for shortness of breath, cough, wheezing, and pleuritic chest pain, Abdomen/GI: Negative for abdominal pain, nausea, vomiting, diarrhea, and constipation, MS/Extremity: Negative for injury and deformity, Skin: Negative for injury, rash, and discoloration, Neuro: Negative for numbness, tingling, and seizure, + generalized weakness and headache Exam: 11:13 Constitutional: This is a well developed, well nourished patient who is awake, rn somnolent but awakens to voice and answers all questions, follows commands Head/Face: Normocephalic, atraumatic. Eyes: Pupils equal round and reactive to light, extra-ocular motions intact. Lids and lashes normal. Conjunctiva and sclera are non-icteric and not injected. Cornea within normal limits. Periorbital areas with no swelling, redness, or edema. ENT: dry MM Neck: Trachea midline, no thyromegaly or masses palpated, and no cervical lymphadenopathy. Supple, full range of motion without nuchal rigidity, or vertebral point tenderness. No Meningismus. Cardiovascular: Regular rate and rhythm. No JVD. No pulse deficits. Respiratory: Lungs have equal breath sounds bilaterally, clear to auscultation MS/ Extremity: Pulses equal, no cyanosis. Neurovascular intact. Full, normal range of motion. Equal circumference. Neuro: Awake and alert, GCS 15, oriented to person, place, and situation. Cranial nerves II-XII grossly intact. Motor strength 4/5 in all extremities. Sensory grossly intact. Slurred speech. Gait not tested due to somnolence Vital Signs: 11:04 BP 115 / 70; Pulse 57; Resp 12; Temp 97.7; Pulse Ox 96% on R/A; sg 12:06 BP 86 / 58; Pulse 45; Resp 13; Pulse Ox 96% on R/A; Pain 0/10; sg 12:30 BP 76 / 49; Pulse 45; Resp 13; Pulse Ox 97% on R/A; sg 13:08 BP 91 / 61; Pulse 45; Resp 17; Pulse Ox 98% on R/A; Pain 3/10; sg 13:35 BP 102 / 60; Pulse 48 MON; Resp 14; Pulse Ox 100% on R/A; sg 14:08 BP 107 / 65; Pulse 43; Resp 14; Pulse Ox 100% ; sv 15:07 BP 113 / 79; Pulse 58; Resp 16; Temp 97.8; Pulse Ox 100% on R/A; sg 15:37 BP 122 / 76; Pulse 57; Resp 17; Pulse Ox 100% on R/A; sg 13:08 pt c/o arm pain at this time, notified, an xray has been ordered per pt sg reports a fall several days ago NIH Stroke Scale Scores: 13:00 NIHSS Score: 0 sg MDM: 10:59 Patient medically screened. rn 11:51 ED course: here, states dizzy and not feeling well for 2 days, reports fell rn recently, hit arm, thinks may have taken extra pain medication last night. Reports got home around 0400 and patient asleep. Awoken this AM when heard "thud". . 14:37 ED course: Pt much improved, more alert, normalized BP, states pretty much back rn to baseline. Normal w/u thus far, anticipate further observation and dc home from ER. Other visits in ER past also show bradycardia in 40s-50s, likely from her taking propranolol. . 15:59 Differential Diagnosis: electrolyte abnormality, alcohol intoxication, hypoglycemia, rn overdose, volume depletion. Data reviewed: vital signs, nurses notes, lab test result(s), EKG, radiologic studies, CT scan, plain films, and as a result, I will discharge patient. Counseling: I had a detailed discussion with the patient and/or guardian regarding: the historical points, exam findings, and any diagnostic results supporting the discharge/admit diagnosis, lab results, radiology results, the need for outpatient follow up, to return to the emergency department if symptoms worsen or persist or if there are any questions or concerns that arise at home. Response to treatment: the patient's symptoms have markedly improved after treatment, the patient's condition has returned to base line, the patient is now symptom free, patient is well hydrated. and as a result, I will discharge patient. Special discussion: I discussed with the patient/guardian in detail that at this point there is no indication for admission to the hospital. It is understood, however, that if the symptoms persist or worsen the patient needs to return immediately for re-evaluation. 10/18 11:01 Order name: Acetaminophen; Complete Time: 12:14 rn 10/18 11:01 Order name: Basic Metabolic Panel; Complete Time: 12:14 rn 10/18 11:01 Order name: CBC with Diff; Complete Time: 11:45 rn 10/18 11:01 Order name: ETOH Level rn 10/18 11:01 Order name: Hepatic Function; Complete Time: 12:14 rn 10/18 11:01 Order name: PT-INR; Complete Time: 12:14 rn 10/18 11:01 Order name: Ptt, Activated; Complete Time: 12:14 rn 10/18 11:01 Order name: Salicylate; Complete Time: 13:26 rn 10/18 11:01 Order name: Urine Drug Screen; Complete Time: 14:34 rn 10/18 11:01 Order name: Troponin (emerg Dept Use Only); Complete Time: 12:14 rn 10/18 11:01 Order name: CT Head Brain wo Cont; Complete Time: 12:14 rn 10/18 11:18 Order name: XRAY Chest (1 view); Complete Time: 13:26 rn 10/18 13:33 Order name: Glucose, Ancillary Testing; Complete Time: 14:18 EDMS 10/18 14:01 Order name: Urine Dipstick--Ancillary (enter results); Complete Time: 14:18 em1 10/18 11:01 Order name: EKG; Complete Time: 11:02 rn 10/18 11:01 Order name: EKG - Nurse/Tech; Complete Time: 11:41 rn 10/18 11:01 Order name: IV Saline Lock; Complete Time: 11:14 rn 10/18 11:01 Order name: Labs collected and sent; Complete Time: 11:14 rn 10/18 11:01 Order name: Urine Dipstick-Ancillary (obtain specimen); Complete Time: 13:58 rn 10/18 11:15 Order name: Straight Cath; Complete Time: 12:24 sg 10/18 14:16 Order name: XRAY Elbow LEFT 3 view rn 10/18 14:16 Order name: XRAY Forearm LEFT; Complete Time: 16:02 rn Administered Medications: 11:30 Drug: NS 0.9% 1000 ml Route: IV; Rate: 1000 ml; Site: right forearm; sg 12:30 Follow up: IV Status: Completed infusion; IV Intake: 100ml sg 12:00 Drug: Glucagon 1 mg Route: IVP; Site: right forearm; sg 12:30 Follow up: Response: No adverse reaction; No change in condition sg 12:24 Drug: NS 0.9% 1000 ml Route: IV; Rate: 1000 ml; Site: right antecubital; ss 13:45 Follow up: Response: No adverse reaction; Blood pressure is elevated; IV Status: sg Completed infusion; IV Intake: 990ml 14:38 Drug: Calcium Gluconate 1 grams Route: IVPB; Infused Over: 60 mins; Site: right forearm;sg 15:55 Follow up: Response: No adverse reaction; IV Status: Completed infusion sg Disposition: 10/18/18 16:00 Discharged to Home. Impression: Altered mental status, unspecified, Dehydration. - Condition is Stable. - Discharge Instructions: Dehydration, Adult, Accidental Overdose, Hypocalcemia, Adult. - Medication Reconciliation Form, Thank You Letter, Antibiotic Education, Prescription Opioid Use form. - Follow up: Private Physician; When: As needed; Reason: Recheck today's complaints, Re-evaluation by your physician. - Problem is new. - Symptoms have improved. NIH Stroke Scale - NIH Stroke Score Date: 10/18/2018 Time: 13:00 Total Score = 0 1a. Level of Consciousness (LOC) - 0(Alert) 1b. Level of Consciousness (LOC) (Year \\T\\ Age) - 0(Both) 1c. LOC Commands (Open \\T\\ Closes Eyes/Certified Physician'S Assistant) - 0(Both) 2. Best Gaze (Lateral Gaze Paresis) - 0(Normal) 3. Visual Field Loss - 0(No visual loss) 4. Facial Palsy - 0(Normal) 5a. Left Arm: Motor (10-second hold) - 0(No drift) 5b. Right Arm: Motor (10-second hold) - 0(No drift) 6a. Left Leg: Motor (5-second hold - always test supine) - 0(No drift) 6b. Right Leg: Motor (5-second hold - always test supine) - 0(No drift) 7. Limb Ataxia (finger/nose \\T\\ heel/fleming - test with eyes open) - 0(Absent) 8. Sensory Loss (pinprick arms/legs/face) - 0(Normal) 9. Best Language: Aphasia (description/naming/reading) - 0(No aphasia) 10. Dysarthria (speech clarity - read or repeat words) - 0(Normal) 11. Extinction and Inattention (visual/tactile/auditory/spatial/personal) - 0(No abnormality) Initials: Signatures: Dispatcher [employer] EDMS Kristina Arriaza RN RN sv Gay, Steven, RN RN sg Nieto, Roman, MD MD rn Smirch, Shelby, RN RN ss Corrections: (The following items were deleted from the chart) 11:19 11:13 Constitutional: This is a well developed, well nourished patient who is rn awake, somnolent but awakens to voice and answers all questions, follows commands Head/Face: Normocephalic, atraumatic. Eyes: Pupils equal round and reactive to light, extra-ocular motions intact. Lids and lashes normal. Conjunctiva and sclera are non-icteric and not injected. Cornea within normal limits. Periorbital areas with no swelling, redness, or edema. ENT: dry MM Neck: Trachea midline, no thyromegaly or masses palpated, and no cervical lymphadenopathy. Supple, full range of motion without nuchal rigidity, or vertebral point tenderness. No Meningismus. Cardiovascular: Regular rate and rhythm. No JVD. No pulse deficits. Respiratory: Lungs have equal breath sounds bilaterally, clear to auscultation rn 11:43 11:08 Home Meds: Zanaflex Oral at bedtime; [facility] 16:31 16:00 10/18/2018 16:00 Discharged to Home. Impression: Altered mental status, ss unspecified; Dehydration. Condition is Stable. Forms are Medication Reconciliation Form, Thank You Letter, Antibiotic Education, Prescription Opioid Use. Follow up: Private Physician; When: As needed; Reason: Recheck today's complaints, Re-evaluation by your physician. Problem is new. Symptoms have improved. rn
[2018-10-18 16:59] VITALS: O2SAT 100
[2018-10-18 17:03] VITALS: TEMP 97.8
[2018-10-18 17:04] VITALS: BP 122/76
--- NOTE | 2018-10-19 10:43 | RAD REPORT ---
EXAM DESCRIPTION: RAD - Elbow Left 3 View - 10/18/2018 2:53 pm CLINICAL HISTORY: PAIN Swelling COMPARISON: None FINDINGS: Right forearm and right elbow-multiple projections No bone or joint abnormality.
== END 2018-10-18 16:31 | disposition home or self-care (01) ==
LOC: ER 10:54
DX: E86.0 Dehydration (principal); R41.82 Altered mental status, unspecified; I10 Essential (primary) hypertension; M79.7 Fibromyalgia; F31.9 Bipolar disorder, unspecified; Z79.899 Other long term (current) drug therapy
CPT/HCPCS: 36415; 70450; 71045; 73080; 73090; 80048; 80076; 80307 ×8; 80320; 80329 ×2; 81003; 82962; 84484; 85025; 85610; 85730; 93005; 96361; 96365; 96375; 99284; J1610; J7030

== ENCOUNTER 2019-06-15 14:55 | Emergency (ER) | payer OTHER ==
--- OUTSIDE RECORDS SUMMARY | 2019-06-15 14:58 | XMS REPORT ---
:1965 Author Organization eClinicalWorks Care Team Providers Name Role Phone Davin Platt Provider Role Unavailable Allergies No Known Allergies [...] Start End Status Dosage System Date Date Geodon [facility] 09133087187 60 MG Orally Active 1 capsule with Twice a day food Linzess [facility] 48287954767 290 mcg PO QHS Active 1 tab prn constipation Zanaflex [facility] 95902343241 4 MG Orally Active 1 capsule as Once at needed bedtime Propranolol HCl [facility] 21333145267 10 MG Orally Active 1 tablet on an Twice a day empty stomach Prozac [facility] 47476446402 40 MG Orally Active 1 capsule Once a day Vitamin D3 [facility] 68162141126 2000 UNIT Active 1 capsule Orally Once a day Iron Supplement [facility] [address]-34 Active not defined baclofen NDC 0 10mg PO Once Active 1 tab as at bedtime as needed for needed pain Gabapentin [facility] 17577739224 600 MG Orally Active 1 tablet AM Twice a day and 2 Tabs PM Pantoprazole [facility] 57025829256 40 MG Orally Active 1 tablet Sodium Once a day Clonazepam [facility] 38282248304 0.5 MG Orally Active 1 tablet at Once a day PRN bedtime Anxiety Promethazine-DM [facility] 42804898086 6.25-15 MG/5ML Active 5 ml as needed Orally every 6 Nausea/Vomitin hrs g Results No Known Results Summary Purpose [employer]ClinicalWorks Submission
--- OUTSIDE RECORDS SUMMARY | 2019-06-15 14:58 | XMS REPORT ---
[...] Medications Results No Known Results Summary Purpose Voovio aka [employer] Submission
--- OUTSIDE RECORDS SUMMARY | 2019-06-15 14:58 | XMS REPORT ---
:1965 Author Organization [employer]Works Care Team Providers Name Role Phone RichDavid Provider Role Unavailable Allergies, Adverse Reactions, Alerts [...] intractable Problem GERD without esophagitis K21.9 Active Problem Constipation, unspecified K59.00 Active constipation type Problem Nausea R11.0 Active Problem Back pain with left-sided M54.10 Active radiculopathy Problem History of intussusception Z87.19 Active Problem Hemorrhoids, unspecified hemorrhoid K64.9 Active type Problem Fibromyalgia M79.7 Active Assessment Pilonidal cyst without infection L05.91 Active Assessment Pilonidal cyst without abscess L05.91 Active Problem Solitary cyst of left breast N60.02 Active Assessment Anal fissure K60.2 Active Problem Benign essential hypertension I10 Active Assessment Grade II hemorrhoids K64.1 Active Problem Depression with anxiety F41.8 Active Medications Medication Code Code Instructions Start End Status Dosage System Date Date Gabapentin [facility] 79452282767 600 MG Orally Active 1 tablet AM Twice a day and 2 Tabs PM Pantoprazole [facility] 52752139635 40 MG Orally Active 1 tablet Sodium Once a day Propranolol HCl [facility] 89424265398 10 MG Orally Active 1 tablet on an Twice a day empty stomach Geodon [facility] 27154680799 60 MG Orally Active 1 capsule with Twice a day food Iron Supplement [facility] [place] [address]-73 Active not defined Zanaflex [facility] 94926215966 4 MG Orally Active 1 capsule as Once at needed bedtime baclofen NDC 0 10mg PO Once Active 1 tab as at bedtime as needed for needed pain Prozac [facility] 87325636905 40 MG Orally Active 1 capsule Once a day Linzess [facility] 33345924513 290 mcg PO QHS Active 1 tab prn constipation Clonazepam [facility] 29487407022 0.5 MG Orally Active 1 tablet at Once a day PRN bedtime Anxiety Vitamin D3 [facility] [place] 29708321147 2000 UNIT Active 1 capsule Orally Once a day Promethazine-DM [facility] 28526669314 6.25-15 MG/5ML Active 5 ml as needed Orally every 6 Nausea/Vomitin hrs g Results No Known Results Summary Purpose eClinicalWorks Submission
--- OUTSIDE RECORDS SUMMARY | 2019-06-15 14:58 | XMS REPORT ---
[...] Medications Results No Known Results Summary Purpose [employer] Submission
--- OUTSIDE RECORDS SUMMARY | 2019-06-15 14:58 | XMS REPORT ---
:1965 Author Organization eClinicalWorks Care Team Providers Name Role Phone L[facility] Provider Role Unavailable Allergies, Adverse Reactions, Alerts [...] End Status Dosage System Date Date Clonazepam [facility] 41977742233 0.5 MG Orally Active 1 tablet at Once a day PRN bedtime Anxiety Prozac [facility] 44547127539 40 MG Orally Active 1 capsule Once a day Propranolol HCl ND 06033255541 10 MG Orally Active 1 tablet on an Twice a day empty stomach Zanaflex [facility] 92054666456 4 MG Orally Active 1 capsule as Once at needed bedtime Vitamin D3 [facility] 19654301240 2000 UNIT Active 1 capsule Orally Once a day baclofen NDC 0 10mg PO Once Active 1 tab as at bedtime as needed for needed pain Gabapentin ND 19985963971 600 MG Orally Active 1 tablet AM Twice a day and 2 Tabs PM Pantoprazole ND 70273754420 40 MG Orally Active 1 tablet Sodium Once a day Promethazine-DM [facility] 19147215598 6.25-15 MG/5ML Active 5 ml as needed Orally every 6 Nausea/Vomitin hrs g Linzess [facility] 68875023750 290 mcg PO QHS Sep 11December Active 1 tab prn 2018 07, constipation 2019 Geodon [facility] 65263673496 60 MG Orally Active 1 capsule with Twice a day food Ultram [facility] 27589281861 50 MG Orally Active 1 tablet as every 6 hrs needed Iron Supplement NDC 0 Active not defined Results No Known Results Summary Purpose eClinicalWorks Submission
--- OUTSIDE RECORDS SUMMARY | 2019-06-15 14:58 | XMS REPORT ---
:1965 Author Organization eClinicalWorks Care Team Providers Name Role Phone SantobrennaDavid Provider Role Unavailable Allergies No Known Allergies [...] Medications Results No Known Results Summary Purpose Anywhere to [employer] Submission
--- OUTSIDE RECORDS SUMMARY | 2019-06-15 14:59 | XMS REPORT ---
:1965 Author Organization eClinicalWorks Care Team Providers Name Role Phone Davin Platt Provider Role Unavailable Allergies, Adverse Reactions, Alerts Substance Reaction Event Type Requip Info Not Available Drug Allergy Reglan Info Not Available Drug Allergy surgical tape Info Not Available Non Drug Allergy Problems Problem Type Condition Code Onset Dates Condition Status Assessment Encounter for screening mammogram Z12.31 Active for breast cancer Assessment Adult BMI 27.0-27.9 kg/sq m Z68.27 Active Assessment Encounter for screening for other Z11.59 Active viral diseases Problem Benign essential hypertension I10 Active Assessment Constipation, unspecified K59.00 Active constipation type Problem Depression with anxiety F41.8 Active Assessment Fibromyalgia M79.7 Active Problem Irritable bowel syndrome, K58.9 Active unspecified type Problem Bipolar disorder F31.9 Active Problem Migraine without aura and without G43.009 Active status migrainosus, not intractable Problem GERD without esophagitis K21.9 Active Problem Constipation, unspecified K59.00 Active constipation type Assessment Nausea R11.0 Active Assessment GERD without esophagitis K21.9 Active Problem Nausea R11.0 Active Assessment Hemorrhoids, unspecified hemorrhoid K64.9 Active type Problem Back pain with left-sided M54.10 Active radiculopathy Problem History of intussusception Z87.19 Active Problem Hemorrhoids, unspecified hemorrhoid K64.9 Active type Problem Fibromyalgia M79.7 Active Assessment Depression with anxiety F41.8 Active Assessment Migraine without aura and without G43.009 Active status migrainosus, not intractable Assessment Bipolar disorder F31.9 Active Assessment Back pain with left-sided M54.10 Active radiculopathy Problem Solitary cyst of left breast N60.02 Active Assessment Medicare annual wellness visit, Z00.00 Active subsequent Assessment Benign essential hypertension I10 Active Medications Medication Code Code Instructions Start End Status Dosage System Date Date Gabapentin [facility] 29232088469 600 MG Orally Active 1 tablet am Twice a day and 2 tabs pm Zanaflex ND 46213311966 4 MG Orally December Active 1 capsule as Once at 31, needed bedtime 2019 Linzess [facility] 09548688757 290 mcg PO QHS Nov 01, Inactive 1 tab prn 2018 constipation Prozac [facility] 32386294911 40 MG Orally Active 1 capsule Once a day Vitamin D3 [facility] 81495982501 2000 UNIT Active 1 capsule Orally Once a day Iron [facility] [address]-07 Active not defined Supplement Promethazine-D [facility] 58766222743 6.25-15 MG/5ML Active 5 ml as M Orally every 6 needed hrs Nausea/Vomiti ng Geodon [facility] 89613921598 60 MG Orally Active 1 capsule Twice a day with food Propranolol [facility] 35927548618 10 MG Orally Active 1 tablet on HCl Twice a day an empty stomach Clonazepam [facility] 93566616238 0.5 MG Orally Active 1 tablet at Once a day PRN bedtime Anxiety Pantoprazole [facility] 34602512319 40 MG Orally Active 1 tablet Sodium Once a day Amitiza [facility] 55510374382 24 MCG Orally Nov 01December Active 1 capsule Twice a day 2018 10, with food 2018 baclofen NDC 0 10mg PO Once Active 1 tab as at bedtime as needed for needed pain Results No Known Results Summary Purpose eClinicalWorks Submission
--- OUTSIDE RECORDS SUMMARY | 2019-06-15 14:59 | XMS REPORT ---
:1965 Author Organization eClinicalWorks Care Team Providers Name Role Phone Platt, [facility] Provider Role Unavailable Allergies, Adverse Reactions, Alerts Substance Reaction Event Type Requip Info Not Available Drug Allergy Reglan Info Not Available Drug Allergy surgical tape Info Not Available Non Drug Allergy Problems Problem Type Condition Code Onset Dates Condition Status Problem Irritable bowel syndrome, K58.9 Active unspecified type Problem History of intussusception Z87.19 Active Problem Bipolar disorder F31.9 Active Problem Fibromyalgia M79.7 Active Problem Nausea R11.0 Active Problem Subclinical hypothyroidism E03.9 Active Problem Hemorrhoids, unspecified hemorrhoid K64.9 Active type Problem Back pain with left-sided M54.10 Active radiculopathy Problem GERD without esophagitis K21.9 Active Problem Constipation, unspecified K59.00 Active constipation type Assessment Acute cystitis without hematuria N30.00 Active Problem Solitary cyst of left breast N60.02 Active Problem Benign essential hypertension I10 Active Assessment Dysuria R30.0 Active Problem Depression with anxiety F41.8 Active Problem Migraine without aura and without G43.009 Active status migrainosus, not intractable Medications Medication Code Code Instructions Start End Status Dosage System Date Date Promethazine-DM [facility] 79972252118 6.25-15 MG/5ML Active 5 ml as Orally every 6 needed hrs Nausea/Vo miting baclofen NDC 0 10mg PO Once at Active 1 tab as bedtime as needed needed for pain Pantoprazole ND 11572849252 40 MG Orally Active 1 tablet Sodium Once a day Geodon ND 26530912601 60 MG Orally Active 1 capsule Twice a day with food Vitamin D3 [facility] 48038704985 2000 UNIT Active 1 capsule Orally Once a day Macrobid ND 00171488015 100 MG Orally January Active 1 capsule every 12 hrs 2018 30, with food 2018 Levothyroxine ND 17212435698 50 MCG Orally December Active 1 tablet Sodium Once a day 2018 on an empty stomach in the morning Gabapentin ND 86416968308 600 MG Orally Active 1 tablet Twice a day am and 2 tabs pm Propranolol HCl [facility] 12195045313 10 MG Orally Active 1 tablet Twice a day on an empty stomach Zanaflex [facility] 41155865879 4 MG Orally Active 1 capsule Once at bedtime as needed Amitiza [facility] 49459570897 24 MCG Orally December Active 1 capsule Twice a day 2018 05, with food 2018 Iron Supplement [facility] [address]-12 Active not defined Clonazepam [facility] 88488645159 0.5 MG Orally Active 1 tablet Once a day PRN at Anxiety bedtime Prozac [facility] 38490101385 40 MG Orally Active 1 capsule Once a day Pyridium [facility] 96305991574 200 MG Orally January Active 1 tablet Three times a 2018, after day 2019 meals Results Name Result Date Reference Range Unit Abnormality Flag Urine Dip Stick ----Appearance clear yellow 20190125 ----SP. Gr 1.010 20190125 ----pH 6.5 20190125 ----Ketone Neg 20190125 ----Glucose Neg 20190125 ----Blood Neg 20190125 ----Protein Trace 20190125 ----Nitrite Neg 20190125 ----Leukocytes Neg 20190125 Summary Purpose eClinicalWorks Submission
--- OUTSIDE RECORDS SUMMARY | 2019-06-15 14:59 | XMS REPORT ---
[...] Medications Results No Known Results Summary Purpose P[employer]ngle Submission
--- OUTSIDE RECORDS SUMMARY | 2019-06-15 14:59 | XMS REPORT ---
:1965 Author Organization eClinicalWorks Care Team Providers Name Role Phone SantobrennaDavid Provider Role Unavailable Allergies, Adverse Reactions, Alerts [...] K64.9 Active type Problem Fibromyalgia M79.7 Active Problem Solitary cyst of left breast N60.02 Active Problem Benign essential hypertension I10 Active Assessment Grade II hemorrhoids K64.1 Active Problem Depression with anxiety F41.8 Active Medications Medication Code Code Instructions Start End Status Dosage System Date Date baclofen NDC 0 10mg PO Once Active 1 tab as at bedtime as needed for needed pain Promethazine-DM ND 78490114816 6.25-15 MG/5ML Active 5 ml as Orally every 6 needed hrs Nausea/Vomiti ng Propranolol HCl ND 40705524603 10 MG Orally Active 1 tablet on Twice a day an empty stomach Zanaflex ND 67647654982 4 MG Orally December Active 1 capsule as Once at 31, needed bedtime 2018 Iron Supplement [facility] [address]-67 Active not defined Geodon ND 19901044967 60 MG Orally Active 1 capsule Twice a day with food Clonazepam ND 16085602788 0.5 MG Orally Active 1 tablet at Once a day PRN bedtime Anxiety Pantoprazole ND 77902770128 40 MG Orally Active 1 tablet Sodium Once a day Rectal Rocket NDC 0 rectally q8 December Active 1 suppository hours as 05, , needed 2019 2019 Gabapentin [facility] 77520762259 600 MG Orally Active 1 tablet am Twice a day and 2 tabs pm Vitamin D3 [facility] 04366036134 2000 UNIT Active 1 capsule Orally Once a day Prozac [facility] 94414268850 40 MG Orally Active 1 capsule Once a day Results No Known Results Summary Purpose eClinicalWorks Submission
--- OUTSIDE RECORDS SUMMARY | 2019-06-15 14:59 | XMS REPORT ---
:1965 Author Organization eClinicalWorks Care Team Providers Name Role Phone Lc Davin Provider Role Unavailable Allergies No Known Allergies Problems Problem Type Condition Code Onset Dates Condition Status Problem Irritable bowel syndrome, K58.9 Active unspecified type Problem History of intussusception Z87.19 Active Problem Bipolar disorder F31.9 Active Problem Solitary cyst of left breast N60.02 Active Problem Benign essential hypertension I10 Active Problem Depression with anxiety F41.8 Active Problem Migraine without aura and without G43.009 Active status migrainosus, not intractable Problem Fibromyalgia M79.7 Active Problem Nausea R11.0 Active Problem Subclinical hypothyroidism E03.9 Active Problem Hemorrhoids, unspecified hemorrhoid K64.9 Active type Problem Back pain with left-sided M54.10 Active radiculopathy Problem GERD without esophagitis K21.9 Active Problem Constipation, unspecified K59.00 Active constipation type Medications No Known Medications Results No Known Results Summary Purpose [employer] Submission
--- OUTSIDE RECORDS SUMMARY | 2019-06-15 14:59 | XMS REPORT ---
[...] Constipation, unspecified K59.00 Active constipation type Problem Solitary cyst of left breast N60.02 Active Problem Benign essential hypertension I10 Active Assessment Acute cystitis without hematuria N30.00 Active Problem Depression with anxiety F41.8 Active Problem Migraine without aura and without G43.009 Active status migrainosus, not intractable Medications Medication Code System Code Instructions Start End Date Status Dosage Date Pyridium [facility] 62434029753 200 MG Orally January 25, Active 1 tablet Three times a day 2018 after meals Bactrim DS ND 66417718914 800-160 MG Orally January 30, February 04, Active 1 tablet Twice a day 2018 2019 Results No Known Results Summary Purpose eClinicalWorks Submission
--- OUTSIDE RECORDS SUMMARY | 2019-06-15 14:59 | XMS REPORT ---
:1965 Author Organization eClinicalWorks Care Team Providers Name Role Phone Lc [facility] Provider Role Unavailable Allergies, Adverse Reactions, Alerts Substance Reaction Event Type Requip Info Not Available Drug Allergy Reglan Info Not Available Drug Allergy surgical tape Info Not Available Non Drug Allergy Problems Problem Type Condition Code Onset Dates Condition Status Assessment Adult BMI 27.0-27.9 kg/sq m Z68.27 Active Assessment Constipation, unspecified K59.00 Active constipation type Assessment Fibromyalgia M79.7 Active Problem Depression with anxiety F41.8 Active Assessment Hemorrhoids, unspecified hemorrhoid K64.9 Active type Problem Migraine without aura and without G43.009 Active status migrainosus, not intractable Assessment GERD without esophagitis K21.9 Active Problem Irritable bowel syndrome, K58.9 Active unspecified type Problem History of intussusception Z87.19 Active Problem Bipolar disorder F31.9 Active Problem Fibromyalgia M79.7 Active Problem Nausea R11.0 Active Assessment Back pain with left-sided M54.10 Active radiculopathy Assessment Bipolar disorder F31.9 Active Problem Subclinical hypothyroidism E03.9 Active Assessment Nausea R11.0 Active Problem Hemorrhoids, unspecified hemorrhoid K64.9 Active type Problem Back pain with left-sided M54.10 Active radiculopathy Problem GERD without esophagitis K21.9 Active Problem Constipation, unspecified K59.00 Active constipation type Assessment Benign essential hypertension I10 Active Assessment Renal insufficiency N28.9 Active Assessment Depression with anxiety F41.8 Active Assessment Migraine without aura and without G43.009 Active status migrainosus, not intractable Problem Solitary cyst of left breast N60.02 Active Problem Benign essential hypertension I10 Active Assessment Subclinical hypothyroidism E03.9 Active Medications Medication Code Code Instructions Start End Status Dosage System Date Date Prozac ND 35098357844 40 MG Orally Active 1 capsule Once a day Pyridium ND 74227725036 200 MG Orally January Active 1 tablet Three times a 2018 after day meals Clonazepam ND 39809452272 0.5 MG Orally Active 1 tablet Once a day PRN at Anxiety bedtime Cambia [facility] 72829027513 50 MG Orally As Sept Active take at needed 14 onset of 2018 severe headache. may repeat in 2 hours if no releif. max 2 in 24 hours Iron Supplement [facility] [address]-91 Active not defined BuPROPion HCl [facility] 11726622217 100 MG Orally Active 1 tablet Twice a day Geodon [facility] 97153636152 60 MG Orally Active 1 capsule Twice a day with food Promethazine-DM [facility] 69552794978 6.25-15 MG/5ML Active 5 ml as Orally every 6 needed hrs Nausea/Vo miting Propranolol HCl [facility] 64036820859 10 MG Orally Active 1 tablet Twice a day on an empty stomach Zanaflex [facility] 30436243586 4 MG Orally Active 1 capsule Once at bedtime as needed baclofen ND 0 10mg PO Once at Active 1 tab as bedtime as needed needed for pain Amitiza [facility] 10002119428 24 MCG Orally Active 1 capsule Twice a day with food Vitamin D3 [facility] 78755761387 2000 UNIT Active 1 capsule Orally Once a day Pantoprazole [facility] 69539691267 40 MG Orally Active 1 tablet Sodium Once a day Levothyroxine [facility] 47736317089 50 MCG Orally Active 1 tablet Sodium Once a day on an empty stomach in the morning Gabapentin [facility] 26833861570 600 MG Orally Active 1 tablet Twice a day am and 2 tabs pm Gabapentin [facility] 35614150894 600 MG Orally Active 1 tablet Twice a day am and 2 tabs pm Wellbutrin SR [facility] 10794956580 100 MG Orally Active 1 tablet Once a day in the morning Pantoprazole [facility] 38051232675 40 MG Orally Active 1 tablet Sodium Once a day Zanaflex [facility] 97746695592 4 MG Active TAKE ONE TABLET BY MOUTH EVERY NIGHT AT BEDTIME NEEDED Results No Known Results Summary Purpose eClinicalWorks Submission
--- OUTSIDE RECORDS SUMMARY | 2019-06-15 14:59 | XMS REPORT ---
:1965 Author Organization eClinicalWorks Care Team Providers Name Role Phone Lc [facility] Provider Role Unavailable Allergies, Adverse [...] End Status Dosage System Date Date Clonazepam [facility] 68862850709 0.5 MG Orally Active 1 tablet at Once a day PRN bedtime Anxiety Propranolol HCl [facility] 83487130509 10 MG Orally Active 1 tablet on Twice a day an empty stomach Iron Supplement [facility] [address]-58 Active not defined Promethazine-DM [facility] 55592937443 6.25-15 MG/5ML Active 5 ml as Orally every 6 needed hrs Nausea/Vomiti ng Gabapentin [facility] 52602008930 600 MG Orally Active 1 tablet am Twice a day and 2 tabs pm Prozac [facility] 18947441763 40 MG Orally Active 1 capsule Once a day Pantoprazole [facility] 38027477773 40 MG Orally Active 1 tablet Sodium Once a day Vitamin D3 [facility] 94508800502 2000 UNIT Active 1 capsule Orally Once a day baclofen NDC 0 10mg PO Once Active 1 tab as at bedtime as needed for needed pain Amitiza [facility] 92345865752 24 MCG Orally December Active 1 capsule Twice a day 07, 05, with food 2018 2018 Levothyroxine [facility] 75908969421 50 MCG Orally December Active 1 tablet on Sodium Once a day 07, an empty 2019 stomach in the morning Rectal Rocket NDC 0 rectally q8 December Active 1 suppository hours as 05, 02, needed 2018 2018 Zanaflex [facility] 67199014847 4 MG Orally Active 1 capsule as Once at needed bedtime Geodon [facility] 05820698768 60 MG Orally Active 1 capsule Twice a day with food Results No Known Results Summary Purpose eClinicalWorks Submission
--- OUTSIDE RECORDS SUMMARY | 2019-06-15 14:59 | XMS REPORT ---
:1965 Author Organization eClinicalWorks Care Team Providers Name Role Phone Lc [facility] Provider Role Unavailable Allergies, Adverse Reactions, Alerts [...] Start End Status Dosage System Date Date Amitiza NDC 08150437737 24 MCG Orally Active 1 capsule Twice a day with food BuPROPion HCl NDC 13810891185 100 MG Orally February 06, Active 1 tablet Twice a day 2018 baclofen NDC 0 10mg PO Once at Active 1 tab as bedtime as needed needed for pain Vitamin D3 [facility] 05749700554 2000 UNIT Active 1 capsule Orally Once a day Zanaflex [facility] 45522443060 4 MG Orally Active 1 capsule Once at bedtime as needed Pantoprazole [facility] 08654108284 40 MG Orally Active 1 tablet Sodium Once a day Zanaflex [facility] 89895566913 4 MG Orally Active 1 capsule Once at bedtime as needed Wellbutrin SR [facility] 10301407178 100 MG Orally Active 1 tablet Once a day in the morning Clonazepam [facility] 96431546155 0.5 MG Orally Active 1 tablet Once a day PRN at Anxiety bedtime Propranolol HCl [facility] 68783303924 10 MG Orally Active 1 tablet Twice a day on an empty stomach Promethazine-DM [facility] 13521387003 6.25-15 MG/5ML Active 5 ml as Orally every 6 needed hrs Nausea/Vo miting Gabapentin [facility] 92015694776 600 MG Orally Active 1 tablet Twice a day am and 2 tabs pm Iron Supplement [facility] [address]-02 Active not defined Geodon [facility] 23047438024 60 MG Orally Active 1 capsule Twice a day with food Pyridium [facility] 91827658198 200 MG Orally Sydnee Active 1 tablet Three times a 2018 after day meals Prozac [facility] 61740799831 40 MG Orally Active 1 capsule Once a day Levothyroxine [facility] 64820741790 50 MCG Orally Active 1 tablet Sodium Once a day on an empty stomach in the morning Results No Known Results Summary Purpose eClinicalWorks Submission
--- OUTSIDE RECORDS SUMMARY | 2019-06-15 15:00 | XMS REPORT ---
[...] Constipation, unspecified K59.00 Active constipation type Assessment Migraine without aura and without G43.009 Active status migrainosus, not intractable Assessment GERD without esophagitis K21.9 Active Assessment Back pain with left-sided M54.10 Active radiculopathy Problem Solitary cyst of left breast N60.02 Active Problem Benign essential hypertension I10 Active Assessment Fibromyalgia M79.7 Active Problem Depression with anxiety F41.8 Active Problem Migraine without aura and without G43.009 Active status migrainosus, not intractable Medications Medication Code Code Instructions Start End Status Dosage System Date Date Gabapentin [facility] 70547496209 300 MG Orally Active 1 capsule twice a day in the morning and 3 capsules in the evening Zanaflex [facility] 06985958997 4 MG Orally Active 1 tablet Once at bedtime as needed Geodon [facility] 52051022638 60 MG Orally Active 1 capsule Twice a day with food Promethazine-DM [facility] 77072467095 6.25-15 MG/5ML Active 5 ml as Orally every 6 needed hrs Nausea/Vom iting Cambia [facility] 76710151406 50 MG Orally As Sept Active take at needed 14, onset of 2019 severe headache. may repeat in 2 hours if no releif. max 2 in 24 hours Clonazepam ND 50600664206 0.5 MG Orally Active 1 tablet Once a day PRN at bedtime Anxiety Propranolol HCl [facility] 90287494488 10 MG Orally Active 1 tablet Twice a day on an empty stomach Pantoprazole [facility] 13876064345 40 MG Orally Active 1 tablet Sodium Once a day Gabapentin [facility] 01623991055 600 MG Orally Active 1 tablet Twice a day am and 2 tabs pm Gabapentin [facility] 59407475204 600 MG Orally Active 1 tablet Twice a day am and 2 tabs pm Zanaflex [facility] 81131513099 4 MG Active TAKE ONE TABLET BY MOUTH EVERY NIGHT AT BEDTIME NEEDED BuPROPion HCl [facility] 46957217162 100 MG Orally Active 1 tablet Twice a day Amitiza [facility] 43977134192 24 MCG Orally Active 1 capsule Twice a day with food Iron Supplement [facility] [address]-05 Active not defined Vitamin D3 [facility] 22664435290 2000 UNIT Active 1 capsule Orally Once a day Prozac [facility] 74613558784 40 MG Orally Active 1 capsule Once a day Pantoprazole [facility] 67249080087 40 MG Orally Active 1 tablet Sodium Once a day Levothyroxine [facility] 83038587289 50 MCG Orally Active 1 tablet Sodium Once a day on an empty stomach in the morning baclofen NDC 0 10mg PO Once at Active 1 tab as bedtime as needed for needed pain Wellbutrin SR [facility] 10868373468 100 MG Orally Active 1 tablet Once a day in the morning Results No Known Results Summary Purpose eClinicalWorks Submission
--- OUTSIDE RECORDS SUMMARY | 2019-06-15 15:00 | XMS REPORT ---
:1965 Author Organization eClinicalWorks Care Team Providers Name Role Phone Justin Platth Provider Role Unavailable Allergies No Known Allergies [...] Medications Results No Known Results Summary Purpose [employer] Submission
[2019-06-15] MEDS ORDERED: HYDROCODONE/APAP 5/325 MG TAB ONE (17:10)
[2019-06-15] MEDS ORDERED: IBUPROFEN 400 MG TAB ONE (17:11)
--- NOTE | 2019-06-15 17:44 | RAD REPORT ---
EXAM DESCRIPTION: RAD - Shoulder Right 2 View - 06/15/2019 5:39 pm CLINICAL HISTORY: PAIN Fall, pain COMPARISON: <Comparisons> FINDINGS: Mildly comminuted fracture is seen involving the proximal right humerus. Dislocation not e vident.
--- NOTE | 2019-06-15 17:54 | EDPHYS ---
Physician Documentation [facility] Name: Janice Bosch Age: 53 yrs Sex: Female : 1965 Arrival Date: 06/15/2019 Time: 14:57 Bed 25 Private MD: ED Physician Dale Varghese HPI: 06/15 16:50 This 53 yrs old Female presents to ER via Ambulatory with complaints of Arm cp Pain. 16:50 The patient or guardian complains of decreased range of motion, injury, pain, that is cp acute. The complaints affect the right shoulder. Context: Patient reports she was removing her pants when she lost her balance and fell forward striking shoulder against table. Onset: The symptoms/episode began/occurred 3 day(s) ago. Treatment prior to arrival includes: sling. Associated signs and symptoms: Pertinent positives: decreased range of motion, Pertinent negatives: deformity, numbness, tingling. 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/A - Hysterectomy hb Historical: - Allergies: 15:12 Reglan; hb 15:12 Requip; hb - Home Meds: 16:54 ziprasidone HCl 60 mg Oral cap at bedtime [Active]; Protonix 40 mg Oral TbEC once daily wh [Active]; propranolol 10 mg Oral tab twice a day [Active]; gabapentin 300 mg Oral cap 2 caps 3 times per day [Active]; clonazepam 0.5 mg Oral tab [Active]; Prozac 40 mg Oral cap 1 cap once daily [Active]; Zanaflex 4 mg Oral tab 2 tabs nightly [Active]; - PMHx: 15:12 Bipolar disorder; Hypertension; Fibromyalgia; bowel obstruction; Migraines; hb - PSHx: 15:12 ; Cholecystectomy; Appendectomy; Hysterectomy; hb - Immunization history:: Adult Immunizations up to date. - Social history:: Smoking status: Patient/guardian denies using tobacco. - Ebola Screening: : No symptoms or risks identified at this time. ROS: 17:00 Constitutional: Negative for body aches, chills, fever, poor PO intake. cp 17:00 Eyes: Negative for injury, pain, redness, and discharge. cp 17:00 ENT: Negative for drainage from ear(s), ear pain, sore throat, difficulty swallowing, difficulty handling secretions. 17:00 Neck: Negative for pain with movement, pain at rest, stiffness, tenderness, bony tenderness. 17:00 Cardiovascular: Negative for chest pain, edema, palpitations. 17:00 Respiratory: Negative for cough, shortness of breath, wheezing. 17:00 Abdomen/GI: Negative for abdominal pain, nausea, vomiting, and diarrhea. 17:00 Back: Negative for pain at rest, pain with movement, radiated pain. 17:00 MS/extremity: Positive for decreased range of motion, pain, tenderness, of the right shoulder, Negative for deformity, paresthesias. 17:00 Neuro: Negative for altered mental status, headache, loss of consciousness, syncope, weakness. 17:00 All other systems are negative. Exam: 17:10 Constitutional: The patient appears in no acute distress, alert, awake, cp non-diaphoretic, non-toxic, well developed, well nourished. 17:10 Head/Face: Normocephalic, atraumatic. cp 17:10 Eyes: Periorbital structures: appear normal, Pupils: equal, round, and reactive to light and accomodation, Conjunctiva: normal, no exudate, no injection, Lids and lashes: appear normal, bilaterally. 17:10 ENT: External ear(s): are unremarkable, Nose: is normal, Mouth: Lips: moist, Oral mucosa: pink and intact, moist, Posterior pharynx: is normal, airway is patent. 17:10 Neck: C-spine: vertebral tenderness, is not appreciated, crepitus, is not appreciated, ROM/movement: is normal, is supple, without pain, no range of motions limitations, no nuchal rigidity. 17:10 Chest/axilla: Inspection: normal, Palpation: is normal, no crepitus, no tenderness. 17:10 Cardiovascular: Rate: normal, Rhythm: regular. 17:10 Respiratory: the patient does not display signs of respiratory distress, Respirations: normal, no use of accessory muscles, no retractions, no splinting, no tachypnea, labored breathing, is not present, Breath sounds: are clear throughout, no decreased breath sounds. 17:10 Back: pain, is absent, ROM is normal. 17:10 Musculoskeletal/extremity: Extremities: grossly normal except: noted in the right shoulder: decreased ROM, pain, tenderness, There is no evidence of deformity, ROM: limited passive range of motion, in the right shoulder, limited passive range of motion due to pain, in the right shoulder, Perfusion: the extremity is normally perfused throughout, Sensation intact. 17:10 Neuro: Orientation: to person, place \T\ time. Mentation: is normal, Sensation: no obvious gross deficits. Vital Signs: 15:12 BP 152 / 82; Pulse 78; Resp 16; Temp 98.5; Pulse Ox 100% on R/A; Weight 73.94 kg; hb Height 5 ft. 2 in. (157.48 cm); Pain 8/10; 16:45 BP 154 / 90; Pulse 68; Resp 18; Pulse Ox 100% on R/A; wh 15:12 Body Mass Index 29.81 (73.94 kg, 157.48 cm) hb MDM: 16:23 Patient medically screened. cp 17:00 Differential diagnosis: dislocation, closed fracture, contusion, tendonitis. cp 17:52 Data reviewed: vital signs, nurses notes, radiologic studies, plain films. cp 17:52 Test interpretation: by ED physician or midlevel provider: plain radiologic studies. cp Counseling: I had a detailed discussion with the patient and/or guardian regarding: the historical points, exam findings, and any diagnostic results supporting the discharge/admit diagnosis, radiology results, the need for outpatient follow up, a orthopedic surgeon. Response to treatment: the patient's symptoms have markedly improved after treatment. ED course: VSS. Pain improved. Patient presented to ED in shoulder sling. Will discharge to home with instructions to continue to wear shoulder sling and f/u with ortho. 06/15 16:47 Order name: XRAY Shoulder RIGHT 2 view cp Administered Medications: 17:12 Drug: Ibuprofen 800 mg Route: PO; 18:03 Follow up: Response: No adverse reaction; Pain is decreased 17:12 Drug: HYDROcodone-acetaminophen (5 mg-500 mg) 1 tabs Route: PO; 18:02 Follow up: Response: No adverse reaction; Pain is decreased; RASS: Alert and Calm (0) Disposition: 06/15/19 17:53 Discharged to Home. Impression: Comminuted fracture proximal right humerus. - Condition is Stable. - Discharge Instructions: Humerus Fracture Treated With Immobilization. - Prescriptions for Ibuprofen 800 mg Oral Tablet - take 1 tablet by ORAL route every 8 hours As needed take with food; 30 tablet. Tylenol- Codeine #3 300-30 mg Oral Tablet - take 2 tablets by ORAL route every 6 hours As needed; 20 tablet. - Medication Reconciliation Form, Thank You Letter, Antibiotic Education, Prescription Opioid Use form. - Follow up: Gabe Hoffman MD; When: 2 - 3 days; Reason: right proximal humerus fracture. - Problem is new. - Symptoms have improved. Addendum: 06/16/2019 20:54 Co-signature as Attending Physician, Dale Varghese MD. r n Signatures: Dispatcher [employer] EDMS Dale Varghese MD MD rn Mj Bhatti PA PA cp Baxter, Heather RN RN Julito Grider Corrections: (The following items were deleted from the chart) 06/15 18:03 17:53 06/15/2019 17:53 Discharged to Home. Impression: Comminuted fracture proximal wh right humerus. Condition is Stable. Forms are Medication Reconciliation Form, Thank You Letter, Antibiotic Education, Prescription Opioid Use. Follow up: Gabe Hoffman; When: 2 - 3 days; Reason: right proximal humerus fracture. Problem is new. Symptoms have improved. cp
--- NOTE | 2019-06-15 17:54 | ER ---
Nurse's Notes [facility] Name: Janice Bosch Age: 53 yrs Sex: Female : 1965 Arrival Date: 06/15/2019 Time: 14:57 Bed 25 [facility] MD: Diagnosis: Comminuted fracture proximal right humerus Presentation: 06/15 15:11 Presenting complaint: Right shoulder pain after fall from standing 3 days ago. hb Transition of care: patient was not received from another setting of care. Onset of symptoms was June 12, 2019. Risk Assessment: Do you want to hurt yourself or someone else? Patient reports no desire to harm self or others. Initial Sepsis Screen: Does the patient meet any 2 criteria? No. Patient's initial sepsis screen is negative. Does the patient have a suspected source of infection? No. Patient's initial sepsis screen is negative. Care prior to arrival: None. 15:11 Method Of Arrival: Ambulatory hb 15:11 Acuity: BONITA 4 hb Triage Assessment: 17:00 General: Behavior is calm, cooperative, appropriate for age. 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 N/A - Hysterectomy hb Historical: - Allergies: 15:12 Reglan; hb 15:12 Requip; hb - Home Meds: 16:54 ziprasidone HCl 60 mg Oral cap at bedtime [Active]; Protonix 40 mg Oral TbEC once daily [Active]; propranolol 10 mg Oral tab twice a day [Active]; gabapentin 300 mg Oral cap 2 caps 3 times per day [Active]; clonazepam 0.5 mg Oral tab [Active]; Prozac 40 mg Oral cap 1 cap once daily [Active]; Zanaflex 4 mg Oral tab 2 tabs nightly [Active]; - PMHx: 15:12 Bipolar disorder; Hypertension; Fibromyalgia; bowel obstruction; Migraines; hb - PSHx: 15:12 ; Cholecystectomy; Appendectomy; Hysterectomy; hb - Immunization history:: Adult Immunizations up to date. - Social history:: Smoking status: Patient/guardian denies using tobacco. - Ebola Screening: : No symptoms or risks identified at this time. Screenin:49 Abuse screen: Denies threats or abuse. Denies injuries from another. Nutritional wh screening: No deficits noted. Tuberculosis screening: No symptoms or risk factors identified. Fall Risk None identified. Assessment: 16:50 General: Appears in no apparent distress. Pain: Complains of pain in Right shoulder wh Pain does not radiate. Pain currently is 8 out of 10 on a pain scale. Quality of pain is described as aching, Pain began 2-3 days ago. Neuro: Level of Consciousness is awake, alert, obeys commands. Cardiovascular: Capillary refill < 3 seconds. Respiratory: Airway is patent Respiratory effort is even, unlabored, Respiratory pattern is regular, symmetrical. GI: Abdomen is flat, non-distended. : No signs and/or symptoms were reported regarding the genitourinary system. EENT: No signs and/or symptoms were reported regarding the EENT system. Derm: Skin is intact, is healthy with good turgor, Skin is pink, warm \T\ dry. normal. Musculoskeletal: Range of motion: limited in right shoulder. 18:01 Reassessment: Patient appears in no apparent distress at this time. No changes from previously documented assessment. Patient and/or family updated on plan of care and expected duration. Pain level reassessed. Patient is alert, oriented x 3, equal unlabored respirations, skin warm/dry/pink. Patient states feeling better. Patient states symptoms have improved. Vital Signs: 15:12 BP 152 / 82; Pulse 78; Resp 16; Temp 98.5; Pulse Ox 100% on R/A; Weight 73.94 kg; hb Height 5 ft. 2 in. (157.48 cm); Pain 8/10; 16:45 BP 154 / 90; Pulse 68; Resp 18; Pulse Ox 100% on R/A; wh 15:12 Body Mass Index 29.81 (73.94 kg, 157.48 cm) ED Course: 14:57 Patient arrived in ED. rg4 15:11 Triage completed. hb 15:12 Arm band placed on. hb 16:18 Julito Grider is Primary Nurse. 16:22 Mj Bhatti PA is PHCP. cp 16:22 Dale Varghese MD is Attending Physician. cp 16:50 Patient has correct armband on for positive identification. Bed in low position. Call light in reach. Side rails up X 1. Pulse ox on. NIBP on. 17:41 XRAY Shoulder RIGHT 2 view In Process Unspecified. EDMS 17:51 Gabe Hoffman MD is Referral Physician. 18:01 No provider procedures requiring assistance completed. Patient did not have IV access during this emergency room visit. Administered Medications: 17:12 Drug: Ibuprofen 800 mg Route: PO; 18:03 Follow up: Response: No adverse reaction; Pain is decreased 17:12 Drug: HYDROcodone-acetaminophen (5 mg-500 mg) 1 tabs Route: PO; 18:02 Follow up: Response: No adverse reaction; Pain is decreased; RASS: Alert and Calm (0) Outcome: 17:53 Discharge ordered by MD. 18:02 Discharged to home ambulatory, with family. 18:02 Condition: good 18:02 Discharge instructions given to patient, Instructed on discharge instructions, follow up and referral plans. no drinking with medication, no driving heavy equipment, medication usage, POC Humerus Fracture Demonstrated understanding of instructions, follow-up care, medications, splint care, POC Prescriptions given X 2. 18:03 Patient left the ED. Signatures: Dispatcher [employer] EDMS Mj Bhatti PA PA cp Baxter, Heather, RN RN Judy Aguilera rg4 Julito Grider
[2019-06-15 18:09] VITALS: O2SAT 100
[2019-06-15 18:10] VITALS: BP 154/90
[2019-06-15 18:15] VITALS: TEMP 98.3
== END 2019-06-15 18:03 | disposition home or self-care (01) ==
LOC: ER 14:55
DX: S42.201A Unspecified fracture of upper end of right humerus, initial encounter for closed fracture (principal); W18.39XA Other fall on same level, initial encounter; Y93.89 Activity, other specified; Y92.9 Unspecified place or not applicable; Z88.8 Allergy status to other drugs, medicaments and biological substances; I10 Essential (primary) hypertension; F31.9 Bipolar disorder, unspecified
CPT/HCPCS: 99284

== ENCOUNTER 2019-06-24 23:19 | Emergency (ER) | payer OTHER ==
--- OUTSIDE RECORDS SUMMARY | 2019-06-24 23:21 | XMS REPORT ---
:1965 Author Organization [employer] Care Team Providers Name Role Phone [place] Provider Role Unavailable Allergies, Adverse Reactions, Alerts [...] Subclinical hypothyroidism E03.9 Active Problem Hemorrhoids, unspecified K64.9 Active hemorrhoid type Problem Back pain with left-sided M54.10 Active radiculopathy Problem GERD without esophagitis K21.9 Active Problem Constipation, unspecified K59.00 Active constipation type Assessment Other closed displaced fracture of S42.291A Active proximal end of right humerus, initial encounter Problem Solitary cyst of left breast N60.02 Active Problem Benign essential hypertension I10 Active Assessment Pain, joint, shoulder, right M25.511 Active Problem Depression with anxiety F41.8 Active Problem Migraine without aura and without G43.009 Active status migrainosus, not intractable Medications Medication Code Code Instructions Start End Status Dosage System Date Date Amitiza [facility] 19465842065 24 MCG Orally Active 1 capsule Twice a day with food Pantoprazole [facility] 29848669354 40 MG Orally Active 1 tablet Sodium Once a day Propranolol HCl ND 43329845813 10 MG Orally Active 1 tablet Twice a day on an empty stomach Vitamin D3 [facility] 75437026485 2000 UNIT Active 1 capsule Orally Once a day Levothyroxine [facility] 70997184932 50 MCG Orally Active 1 tablet Sodium Once a day on an empty stomach in the morning Promethazine-DM [facility] 62849698807 6.25-15 MG/5ML Active 5 ml as Orally every 6 needed hrs Nausea/Vom iting Clonazepam [facility] 88078332814 0.5 MG Orally Active 1 tablet Once a day PRN at bedtime Anxiety BuPROPion HCl [facility] 52732994174 100 MG Orally Active 1 tablet Twice a day Gabapentin [facility] 01952817557 300 MG Orally Active 1 capsule twice a day in the morning and 3 capsules in the evening Zanaflex [facility] 61550267593 4 MG Orally Active 1 tablet Once at bedtime as needed Tylenol # 3 NDC 0 300/30mg PO Jun 20, Active 2 tabs Every 8 hours 2018 as needed for SEVERE PAIN Geodon [facility] 06248972099 60 MG Orally Active 1 capsule Twice a day with food baclofen NDC 0 10mg PO Once at Active 1 tab as bedtime as needed for needed pain Iron Supplement [facility] [address]-63 Active not defined Prozac [facility] 92826615685 40 MG Orally Active 1 capsule Once a day Results No Known Results Summary Purpose [employer] Submission
[2019-06-24] MEDS ORDERED: NA CHLORIDE 0.9% 1,000 ML ONE (23:46)
[2019-06-24] MEDS ORDERED: ONDANSETRON 4 MG/2 ML VIAL ONE (23:46)
[2019-06-24 23:57] LABS: Absolute Lymphocytes (CBC) 1.1 K/uL (0.7-4.9); Basophils % 0.5 % (0-1.3); Hematocrit 37.1 % (36.0-45.0); Lymphocytes % 11.8 % (15.3-44.8); MPV 7.7 fL (7.6-11.3); RBC Red Blood Cell Count 4.23 M/uL (3.86-4.86)
[2019-06-25 00:18] LABS: Bilirubin Direct 0.6 mg/dL (0-0.2); Bilirubin Total 0.8 mg/dL (0.2-1.0); Potassium 4.1 mmol/L (3.5-5.1); Protein, Total 7.6 g/dL (6.4-8.2)
[2019-06-25] MEDS ORDERED: FENTANYL CITR 100 MCG/2 ML ONE ×2 (00:39→02:39)
[2019-06-25 02:27] LABS: Urine Blood NEGATIVE (NEG); Urine Glucose NEGATIVE (NEG); Urine Protein NEGATIVE (NEG)
[2019-06-25 02:28] LABS: Urine Bacteria <20 /HPF (<20); Urine Culture Reflex Order NOT NEEDED; Urine RBC NONE SEEN /HPF (NONE SEEN)
--- NOTE | 2019-06-25 02:46 | ER ---
Nurse's Notes [facility] Name: Janice Bosch Age: 53 yrs Sex: Female : 1965 Arrival Date: 06/24/2019 Time: 23:22 Bed 5 Private MD: Diagnosis: Biliary acute pancreatitis Presentation: 06/24 23:38 Presenting complaint: Patient states: abd pain with N/V since this morning. pt stated ak1 her last BM was this morning and was WNL for pt. pt stated she was in ER last week with fx to right arm and given tylenol #3. Transition of care: patient was not received from another setting of care. Onset of symptoms was June 24, 2019. Risk Assessment: Do you want to hurt yourself or someone else? Patient reports no desire to harm self or others. Initial Sepsis Screen: Does the patient meet any 2 criteria? No. Patient's initial sepsis screen is negative. Does the patient have a suspected source of infection? No. Patient's initial sepsis screen is negative. Care prior to arrival: Phenergan. 23:38 Acuity: BONITA 3 ak1 23:38 Method Of Arrival: Wheelchair ak1 Triage Assessment: 23:37 General: Appears uncomfortable, Behavior is cooperative. Pain: Complains of pain in ak1 abdomen. 23:38 GI: Abdomen is round Reports nausea, vomiting, since this morning. 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 LMP N/A - Hysterectomy ak1 Historical: - Allergies: 23:37 Reglan; ak1 23:37 Requip; ak1 - Home Meds: 23:37 clonazepam 0.5 mg Oral tab [Active]; gabapentin 600 mg oral tab 2 tab [Active]; ak1 ziprasidone HCl 60 mg Oral cap at bedtime [Active]; propranolol 10 mg Oral tab twice a day [Active]; Protonix 40 mg Oral TbEC once daily [Active]; Prozac 40 mg Oral cap 1 cap once daily [Active]; Zanaflex 4 mg Oral tab 2 tabs nightly [Active]; - PMHx: 23:37 Bipolar disorder; bowel obstruction; Fibromyalgia; Hypertension; Migraines; ak1 - PSHx: 23:37 ; Hysterectomy; Appendectomy; Cholecystectomy; bowel obstructions; ak1 - Immunization history:: Adult Immunizations unknown. - Social history:: Smoking status: Patient/guardian denies using tobacco. - Ebola Screening: : No symptoms or risks identified at this time. Screenin:39 Abuse screen: Denies threats or abuse. Denies injuries from another. Nutritional ak1 screening: No deficits noted. Tuberculosis screening: No symptoms or risk factors identified. Fall Risk None identified. Assessment: 06/25 00:24 Reassessment: Patient appears in no apparent distress at this time. No changes from ak1 previously documented assessment. Patient is alert, oriented x 3, equal unlabored respirations, skin warm/dry/pink. pt requesting pain medication, provider notified. pt given blanket. 00:24 GI: Abdomen is round non-distended, Bowel sounds present X 4 quads. Abd is soft and non ak1 tender X 4 quads. 01:31 Reassessment: Patient appears in no apparent distress at this time. Patient is alert, rr5 oriented x 3, equal unlabored respirations, skin warm/dry/pink. awaiting for CT result. 02:35 Reassessment: patient for transfer ED provider explained to patient the result of the rr5 CT scan agreed for the plan of care. she is complaining of severe abdominal pain withorder made and carried out. 03:35 Reassessment: staff nurse diann informed and accepted the case from [facility]. rr5 04:00 Reassessment: Patient appears in no apparent distress at this time. Patient and/or rr5 family updated on plan of care and expected duration. Pain level reassessed. Patient is alert, oriented x 3, equal unlabored respirations, skin warm/dry/pink. awaiting for EMS transport going to [facility]. 04:41 Reassessment: Patient appears in no apparent distress at this time. Patient is alert, rr5 oriented x 3, equal unlabored respirations, skin warm/dry/pink. endorsed to [facility] vitally stable, breathing spontaneously at room air, with IV cannula G20 at left forearm intact. Vital Signs: 06/24 23:37 BP 148 / 91; Pulse 85; Resp 20; Temp 97.9(O); Pulse Ox 99% on R/A; Weight 72.57 kg (R); ak1 Height 5 ft. 2 in. (157.48 cm) (R); Pain 10/10; 06/25 00:30 BP 136 / 95; Pulse 86; Resp 15; Pulse Ox 100% ; rr5 01:30 BP 141 / 85; Pulse 80; Resp 17; Pulse Ox 98% ; rr5 02:35 BP 135 / 82; Pulse 85; Resp 18; Pulse Ox 98% ; Pain 10/10; rr5 03:30 BP 135 / 79; Pulse 89; Resp 19; Pulse Ox 98% ; rr5 03:30 Pain 6/10; rr5 04:30 BP 131 / 80; Pulse 80; Resp 17; Temp 98; Pulse Ox 98% ; rr5 06/24 23:37 Body Mass Index 29.26 (72.57 kg, 157.48 cm) ak1 ED Course: 06/24 23:22 Patient arrived in ED. ds1 23:27 Wayne Chappell MD is Attending Physician. tw4 23:37 Arm band placed on Patient placed in an exam room, on a stretcher, on pulse oximetry, ak1 Patient notified of wait time. 23:39 Triage completed. ak1 23:39 Patient has correct armband on for positive identification. Bed in low position. Call ak1 light in reach. Side rails up X 1. Adult w/ patient. Pulse ox on. NIBP on. 23:40 Inserted saline lock: 20 gauge in left forearm, using aseptic technique. Blood rr5 collected. 06/25 00:23 Silke Shah, RN is Primary Nurse. ak1 01:24 CT Abd/Pelvis - IV Contrast Only In Process Unspecified. EDMS 04:43 No provider procedures requiring assistance completed. Patient transferred, IV remains rr5 in place. intact, No redness/swelling at site. Administered Medications: 06/24 23:52 Drug: NS 0.9% 1000 ml Route: IV; Rate: 1 bolus; Site: left wrist; ak1 06/25 00:23 Follow up: IV Status: Completed infusion; IV Intake: 1000ml ak1 06/24 23:52 Drug: Zofran 4 mg Route: IVP; Site: left forearm; ak1 06/25 00:23 Follow up: Response: No adverse reaction ak1 00:41 Drug: fentaNYL (PF) 25 mcg {Note: rass 0.} Route: IVP; Site: left forearm; rr5 01:40 Follow up: Response: No adverse reaction; RASS: Alert and Calm (0) rr5 02:40 Drug: fentaNYL (PF) 25 mcg {Note: rass 0.} Route: IVP; Site: left forearm; rr5 03:40 Follow up: Response: No adverse reaction; Pain is decreased; RASS: Alert and Calm (0) rr5 03:03 Drug: NS 0.9% 1000 ml Route: IV; Rate: 125 ml/hr; Site: left forearm; rr5 04:44 Follow up: Response: No adverse reaction; IV Status: Infusion continued upon transfer; rr5 IV Intake: 200ml Intake: 00:23 IV: 1000ml; Total: 1000ml. ak1 04:44 IV: 200ml; Total: 1200ml. rr5 Outcome: 02:41 ER care complete, transfer ordered by . tw4 04:43 Transferred by ground EMS to [facility], Transfer form completed. rr5 04:43 Condition: stable 04:43 Instructed on the need for transfer. 04:45 Patient left the ED. rr5 Signatures: Dispatcher [employer] EDOH Aleida Burris ds1 Silke Shah, RN RN ak1 Wayne Chappell MD MD tw4 Anthony Polanco RN RN rr5
--- NOTE | 2019-06-25 02:47 | EDPHYS ---
Physician Documentation [facility] Name: Janice Bosch Age: 53 yrs Sex: Female : 1965 Arrival Date: 06/24/2019 Time: 23:22 Bed 5 Private MD: ED Physician Wayne Chappell HPI: 06/24 23:38 This 53 yrs old Female presents to ER via Unassigned with complaints of tw4 Abdominal Pain, Nausea/Vomiting. 23:38 The patient presents to the emergency department with nausea, vomiting, 5 times since tw4 the onset of symptoms. Onset: The symptoms/episode began/occurred this morning, today. Possible causes: unknown. The symptoms are aggravated by nothing. The symptoms are alleviated by nothing. Associated signs and symptoms: Pertinent positives: abdominal pain, belching, Pertinent negatives: anorexia, constipation, diarrhea, dysuria, fever, flatulence, GI bleeding. The patient has not experienced similar symptoms in the past. 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/A - Hysterectomy ak1 Historical: - Allergies: 23:37 Reglan; ak1 23:37 Requip; ak1 - Home Meds: 23:37 clonazepam 0.5 mg Oral tab [Active]; gabapentin 600 mg oral tab 2 tab [Active]; ak1 ziprasidone HCl 60 mg Oral cap at bedtime [Active]; propranolol 10 mg Oral tab twice a day [Active]; Protonix 40 mg Oral TbEC once daily [Active]; Prozac 40 mg Oral cap 1 cap once daily [Active]; Zanaflex 4 mg Oral tab 2 tabs nightly [Active]; - PMHx: 23:37 Bipolar disorder; bowel obstruction; Fibromyalgia; Hypertension; Migraines; ak1 - PSHx: 23:37 ; Hysterectomy; Appendectomy; Cholecystectomy; bowel obstructions; ak1 - Immunization history:: Adult Immunizations unknown. - Social history:: Smoking status: Patient/guardian denies using tobacco. - Ebola Screening: : No symptoms or risks identified at this time. ROS: 23:38 Constitutional: Negative for fever, chills, and weight loss, Eyes: Negative for injury, tw4 pain, redness, and discharge, Cardiovascular: Negative for chest pain, palpitations, and edema, Respiratory: Negative for shortness of breath, cough, wheezing, and pleuritic chest pain. 23:38 MS/Extremity: Negative for injury and deformity, Skin: Negative for injury, rash, and discoloration. 23:38 Abdomen/GI: Positive for abdominal pain, nausea and vomiting, nausea, vomiting, abdominal cramps, Negative for diarrhea, constipation, abdominal distension, anorexia, dysphagia, hematemesis, black/tarry stool. Exam: 23:38 Constitutional: This is a well developed, well nourished patient who is awake, alert, tw4 and in no acute distress. Eyes: Pupils equal round and reactive to light, extra-ocular motions intact. Lids and lashes normal. Conjunctiva and sclera are non-icteric and not injected. Cornea within normal limits. Periorbital areas with no swelling, redness, or edema. Chest/axilla: Normal chest wall appearance and motion. Nontender with no deformity. No lesions are appreciated. Cardiovascular: Regular rate and rhythm with a normal S1 and S2. No gallops, murmurs, or rubs. Normal PMI, no JVD. No pulse deficits. Respiratory: Lungs have equal breath sounds bilaterally, clear to auscultation and percussion. No rales, rhonchi or wheezes noted. No increased work of breathing, no retractions or nasal flaring. Back: No spinal tenderness. No costovertebral tenderness. Full range of motion. MS/ Extremity: Pulses equal, no cyanosis. Neurovascular intact. Full, normal range of motion. Neuro: Awake and alert, GCS 15, oriented to person, place, time, and situation. Cranial nerves II-XII grossly intact. Motor strength 5/5 in all extremities. Sensory grossly intact. Cerebellar exam normal. Normal gait. 23:38 Abdomen/GI: Inspection: abdomen appears normal, Bowel sounds: diminished, in all quadrants, Palpation: mild abdominal tenderness, in the epigastric area. Vital Signs: 23:37 BP 148 / 91; Pulse 85; Resp 20; Temp 97.9(O); Pulse Ox 99% on R/A; Weight 72.57 kg (R); ak1 Height 5 ft. 2 in. (157.48 cm) (R); Pain 10/10; 06/25 00:30 BP 136 / 95; Pulse 86; Resp 15; Pulse Ox 100% ; rr5 01:30 BP 141 / 85; Pulse 80; Resp 17; Pulse Ox 98% ; rr5 02:35 BP 135 / 82; Pulse 85; Resp 18; Pulse Ox 98% ; Pain 10/10; rr5 03:30 BP 135 / 79; Pulse 89; Resp 19; Pulse Ox 98% ; rr5 03:30 Pain 6/10; rr5 04:30 BP 131 / 80; Pulse 80; Resp 17; Temp 98; Pulse Ox 98% ; rr5 06/24 23:37 Body Mass Index 29.26 (72.57 kg, 157.48 cm) ak1 MDM: 06/24 23:27 Patient medically screened. 06/25 02:42 Differential diagnosis: Nonspecific abd pain, gastritis, cholecystitis, pancreatitis, tw4 appendicitis, diverticulitis, viral gastroenteritis. Data reviewed: vital signs, nurses notes. Data interpreted: Pulse oximetry: Interpretation: normal. Counseling: I had a detailed discussion with the patient and/or guardian regarding: the historical points, exam findings, and any diagnostic results supporting the discharge/admit diagnosis, lab results, radiology results. Medication response: fentanyl. Response to treatment: the patient's symptoms have mildly improved after treatment, and as a result, I will admit patient, administer IV fluids, NS maintenence. 06/24 23:31 Order name: Basic Metabolic Panel; Complete Time: :06/24 23:31 Order name: CBC with Diff; Complete Time: :06/25 01:25 Interpretation: Normal except: MCV 87.7; PLT 425; SOTO% 74.3; LYM% 11.8. 06/24 23:31 Order name: Creatinine for Radiology; Complete Time: 00:15 06/25 00:15 Interpretation: Normal except: GFR 47. 06/24 23:31 Order name: Hepatic Function; Complete Time: :06/25 01:25 Interpretation: Abnormal: AST 1265; ALT 525; ALK 535; BILID 0.6. 06/24 23:31 Order name: Lipase; Complete Time: 01:25 06/25 01:25 Interpretation: Abnormal: LIP 5634. 06/24 23:32 Order name: Urine Microscopic Only; Complete Time: 02:32 06/25 00:14 Order name: CT Abd/Pelvis - IV Contrast Only 06/25 02:17 Order name: Urine Dipstick--Ancillary (enter results); Complete Time: 02:32 em1 06/24 23:31 Order name: IV Saline Lock; Complete Time: 23:44 tw4 06/24 23:31 Order name: Labs collected and sent; Complete Time: 23:44 tw4 06/24 23:32 Order name: Urine Dipstick-Ancillary (obtain specimen); Complete Time: 02:14 tw4 Administered Medications: 06/24 23:52 Drug: NS 0.9% 1000 ml Route: IV; Rate: 1 bolus; Site: left wrist; [facility] 06/25 00:23 Follow up: IV Status: Completed infusion; IV Intake: 1000ml [facility] 06/24 23:52 Drug: Zofran 4 mg Route: IVP; Site: left forearm; [facility] 06/25 00:23 Follow up: Response: No adverse reaction ak1 00:41 Drug: fentaNYL (PF) 25 mcg {Note: rass 0.} Route: IVP; Site: left forearm; rr5 01:40 Follow up: Response: No adverse reaction; RASS: Alert and Calm (0) rr5 02:40 Drug: fentaNYL (PF) 25 mcg {Note: rass 0.} Route: IVP; Site: left forearm; rr5 03:40 Follow up: Response: No adverse reaction; Pain is decreased; RASS: Alert and Calm (0) rr5 03:03 Drug: NS 0.9% 1000 ml Route: IV; Rate: 125 ml/hr; Site: left forearm; rr5 04:44 Follow up: Response: No adverse reaction; IV Status: Infusion continued upon transfer; rr5 IV Intake: 200ml Disposition: 06/25/19 02:41 Transfer ordered to [facility]. Diagnosis is Biliary acute pancreatitis. - Reason for transfer: Higher level of care. - Accepting physician is Dr Donis. - Condition is Fair. - Problem is new. - Symptoms are unchanged. Signatures: Dispatcher [employer] EDSilke Cohen, RN RN ak1 Wayne Chappell MD MD tw4 Anthony Polanco RN RN rr5 Corrections: (The following items were deleted from the chart) 01:30 01:23 TROPONIN (EMERG DEPT USE ONLY)+C.LAB.BRZ ordered. EDMS EDMS 04:45 02:41 06/25/2019 02:41 Transfer ordered to [facility]. Diagnosis is rr5 Biliary acute pancreatitis. Reason for transfer: Higher level of care. Accepting physician is Dr Donis. Condition is Fair. Problem is new. Symptoms are unchanged. tw4
[2019-06-25] MEDS ORDERED: NA CHLORIDE 0.9% 1,000 ML ONE (02:59)
[2019-06-25 05:23] VITALS: O2SAT 98
[2019-06-25 05:27] VITALS: BP 131/80; TEMP 98
--- NOTE | 2019-06-25 10:01 | RAD REPORT ---
EXAM DESCRIPTION: Abdomen Pelvis W Contrast CLINICAL HISTORY: Vomiting;Abd pain COMPARISON: December 07, 2017. TECHNIQUE: CT ABDOMEN PELVIS WITH IV CONTRAST on 06/25/2019 12:14 AM CDT This exam was performed according to our departmental dose-optimization program, which includes autom ated exposure control, adjustment of the mA and/or kV according to patient size and/or use of iterati ve reconstruction technique. FINDINGS: Lower lungs are clear. Abdomen: The liver is normal in appearance. There is minimal intra and extrahepatic biliary dilatatio n. Cholecystectomy was performed. There are postoperative changes of gastric bypass. The pancreas and spleen are normal in appearance. The adrenal glands and kidneys are unremarkable. Abdominal aorta is normal in course and caliber without aneurysm. There is no free air. There is no r etroperitoneal adenopathy. Pelvis: There is extensive dilatation of essentially all of the small bowel to the level of the dista l ileum. Urinary bladder is unremarkable. There is no free fluid. Hysterectomy was performed. Skeleton: There are no acute osseous findings. No suspicious bony lesions. IMPRESSION: Shallow suspect distal small bowel obstruction. Electronically signed by: Tao Benitez MD 06/25/2019 1:46 AM CDT Due to temporary technical issues with the PACS/Fluency reporting system, reports are being signed by the in house radiologist as a courtesy to ensure prompt reporting. The interpreting radiologist is f ully responsible for the content of the report.
== END 2019-06-25 04:45 | disposition short-term general hospital (02) ==
LOC: ER 23:19
DX: K85.10 Biliary acute pancreatitis without necrosis or infection (principal); I10 Essential (primary) hypertension; F31.9 Bipolar disorder, unspecified; Z88.8 Allergy status to other drugs, medicaments and biological substances
CPT/HCPCS: 96361; 85025; 80048; 36415; 80076; 83690; 74177; 96375; 96374; 99285; Q9967; J3010 ×2; J7030 ×2; J2405; 81003; 81015

== ENCOUNTER 2020-07-17 05:09 | Emergency (ER) | payer OTHER ==
--- OUTSIDE RECORDS SUMMARY | 2020-07-17 05:11 | XMS REPORT | Clinical Summary ---
:1965 Author Organization [facility] Address [address] [place] [address] Care Team Providers Name Role Phone Pcp Primary Care Provider Unavailable Allergies Active Allergy Reactions Severity Noted Date Comments Metoclopramide Hcl 06/25/2019 Ropinirole 06/25/2019 Medications Medication Sig Dispensed Refills Start Date End Date Status clonazePAM (KLONOPIN) Take 0.5 mg by 0 Active 0.5 MG tablet mouth 2 (two) times daily as needed for Anxiety. gabapentin Take 600 mg by 0 Acti ve (NEURONTIN) 600 MG mouth 3 (three) tablet times daily. ziprasidone (GEODON) Take 120 mg by 0 Active 60 MG capsule mouth nightly . propranolol (INDERAL) Take 10 mg by 0 Active 10 MG tablet mouth 2 (two) times daily. pantoprazole Take 40 mg by 0 Act dionna (PROTONIX) 40 MG mouth daily. tablet FLUoxetine (PROZAC) Take 40 mg by 0 Active 40 MG capsule mouth daily. tiZANidine (ZANAFLEX) Take 4 mg by 0 Active 4 MG tablet mouth nightly. buPROPion (WELLBUTRIN Take 150 mg by 0 Active XL) 150 MG 24 hr mouth daily. tablet levothyroxine Take 50 mcg by 0 A ctive (SYNTHROID, mouth Every LEVOTHROID) 50 MCG morning on an tablet empty stomach. hydrOXYzine Take 50 mg by 0 Acti ve (VISTARIL) 50 MG mouth once at capsule bedtime. lidocaine (LIDODERM) Place 1 patch 30 patch 0 07/03/201907/05 5 % patch onto the skin daily for 30 days Remove & Discard patch within 12 hours or as directed by MD. Active Problems Problem Noted Date SBO (small bowel obstruction) 06/26/2019 Small bowel obstruction 06/26/2019 Pancreatitis 06/25/2019 Social History Tobacco Use Types Packs/Day Years Used Date Never Smoker Smokeless Tobacco: Never Used Alcohol Use Drinks/Week oz/Week Comments No Alcohol Habits Answer Date Recorded How often do you have a drink containing alcohol? Never 06/25/2019 How many drinks containing alcohol do you have on a typical Not asked day when you are drinking? How often do you have six or more drinks on one occasion? 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 Device Identifier Shelf Model / Expiration Serial / Date Lot Memb Seprafilm Luis F Ramos 5x6 4301-02 - [id number] IMPLANTS N/A : GENZYME DEBORAH: [id number] 11/02/2021 [id number] / Implanted: Qty: 1 on 06/25/2019 by Kendall Cruz MD at [facility] Abdomen BIO-SURG / [id number] Results Not on fileafter 07/17/2019 Insurance Payer Benefit Plan / Subscriber ID Effective Phone Address T ype Group Dates CIGNA CIGNA [id number] 2019-[employer] esent Contracted Advance Directives For more information, please contact: [phone] Code Status Date Activated Date Inactivated Comments Full Code 06/25/2019 10:39 PM 07/03/2019 3:54 PM This code status was determined by: Patient Full Code 06/25/2019 6:16 AM 06/25/2019 10:39 PM This code status was determined by: Patient
--- OUTSIDE RECORDS SUMMARY | 2020-07-17 05:14 | XMS REPORT | Continuity of Care Document ---
:1965 Author Organization [facility] t Address [address] [place] [address] Care Team Providers Name Role Phone Pcp Primary Care Physician Unavailable Clive CONNOLLY Attending Clinician Unavailable Mo BOBBY Admitting Clinician Unavailable Problems Condition Condition Condition Status Onset Resolution Last Treating Co mments Source Name Details Category Date Date Treatment Clinician Date Small Small Disease Active [facility] bowel bowel 06-26 [facility] obstructio obstructio 00:00: Me dical n n 00 Center Pancreatit Pancreatit Disease Active [facility] is is 06-25 [facility] - 00:[facility]: Medical 00 Center Irritable Irritable Problem Active [facility] bowel bowel [facility] - syndrome, syndrome, Daniel candice unspecifie unspecifie l d type d type [facility] Bipolar Bipolar Diagnosis Active [facility] disorder [facility] Migraine Migraine Diagnosis Active [facility] without without [facility] - aura and aura and Memori a without without l status status Outpati migrainosu migrainosu en t s, not s, not Clinics intractabl intractabl e e GERD GERD Problem Active [facility] without without [facility] - esophagiti esophagiti Me moria s s l Outpati ent Clinics Constipati Constipati Problem Active [facility] on, on, [facility] - unspecifie unspecifie Me moria d d l constipati constipati Ou tpati on type on type ent Clinics Hemorrhoid Hemorrhoid Problem Active [facility] s, s, [facility] - unspecifie unspecifie Me moria d d l hemorrhoid hemorrhoid Ou tpati type type ent Clinics Fibromyalg Fibromyalg Problem Active [facility] ia ia [facility] Outpati ent Clinics Nausea Nausea Problem Active [facility] Back pain Back pain Diagnosis Active [facility] with with [facility] - left-sided left-sided Me moria radiculopa radiculopa l thy thy [facility] History of History of Problem Active [facility] intussusce intussusce Maribel kes - ption ption Memoria l [facility] Benign Benign Problem Active [facility] essential essential Luke s - hypertensi hypertensi Me moria on on l [facility] Depression Depression Problem Active [facility] with with [facility] - anxiety anxiety Memoria l [facility] Solitary Solitary Problem Active [facility] cyst of cyst of [facility] - left left Memoria breast breast l [facility] Subclinica Subclinica Diagnosis Active [facility] l l [facility] - hypothyroi hypothyroi Me moria dism dism l [facility] CKD CKD Diagnosis Active [facility] (chronic (chronic [facility] - kidney kidney Memoria disease) disease) l stage 3, stage 3, Outpat i GFR 30-59 GFR 30-59 ent ml/min ml/min Clinics Adult BMI Adult BMI Diagnosis Active [facility] 27.0-27.9 27.0-27.9 Luke s - kg/sq m kg/sq m Memoria l [facility] Allergies, Adverse Reactions, Alerts Allergy Allergy Status Severity Reaction(s) Onset Inactive Treating Comm ents Source Name Type Date Date Clinician Su Miramontes Active [facility] to 06-25 [facility] - Hcl adverse 00:00: Medical reaction 00 [facility] Gely Propensi Active [facility] le ty to 06-25 [facility] - adverse 00:00: Medical reaction 00 [facility] Reglan Adverse Active Info Not [facility] Reaction Available [facility] surgical Adverse Active Info Not [facility] t tape Reaction Available [facility] Requip Adverse Active Info Not [facility] Reaction Available [facility] Social History Social Habit Start Date Stop Date Quantity Comments Source History SDOH [facility] - Alcohol Std Drinks Medica l Center History SDOH [facility] - Alcohol Binge Medical Bruna ter Sex Assigned At [facility] Tobacco use and 2019-06-27 2019-06-[address] Maribel kes - exposure 00:00:00 00:00:00 Medical Center Alcohol intake 2019-06-27 2019-06-[address] [address] Jg es - 00:00:00 00:00:00 non-drinker of Medical Ce nter alcohol (finding) History SDOH 2019-06-25 2019-06-[address] [facility] - Alcohol Frequency 00:00:00 00:00:00 Medical Center Smoking Status Start Date Stop Date Source Never smoker [facility] Medications Ordered Filled Start Stop Current Ordering Indication Dosage Frequency Signature Comments Components Source Medication Medication Date Date Medication? Clinician (SIG) Name Name clonazePAM 2018-10 Yes .5mg Take 0.[address] [facility] (KLONOPIN) 0-01 mg by [facility] - 0.5 MG 13:54: mouth 2 Medical tablet 24 (two) Center times daily as needed for Anxiety. gabapentin 2018-10 Yes 600mg [id number] Take [address] (NEURONTIN) 0-01 [id number] mg by L ukes - 600 MG 13:54: 3D mouth 3 Medical tablet 24 (three) Center times daily. ziprasidone 2018-10 Yes 120mg QD Take [address] (GEODON) 60 0-01 mg by [facility] - MG capsule 13:54: mouth Medica l 24 nightly . Center propranolol 2018-10 Yes 10mg Q.5D Take [address] (INDERAL) 0-01 by mouth 2 Luke s - 10 MG 13:54: (two) Medical tablet 24 times Center daily. pantoprazol 2018-10 Yes 40mg QD Take [address] e 0-01 by mouth [facility] - (PROTONIX) 13:54: daily. Medic al 40 MG 24 Center tablet FLUoxetine 2018-10 Yes 40mg QD Take [address] (PROZAC) 40 0-01 by mouth Luke s - MG capsule 13:54: daily. Medic al 24 Center tiZANidine 2018-10 Yes 4mg QD Take [address] (ZANAFLEX) 0-01 by mouth [facility] - 4 MG tablet 13:54: nightly. Me dical 24 Center buPROPion 2018-10 Yes 150mg QD Take [address] (WELLBUTRIN 0-01 mg by [facility] - XL) 150 MG 13:54: mouth Medica l 24 hr 24 daily. Center tablet levothyroxi 2018-10 Yes 50ug Take [address] ne 0-01 mcg by [facility]ukes - (SYNTHROID, 13:54: mouth Medic al LEVOTHROID) 24 Every Center 50 MCG morning on tablet an empty stomach. hydrOXYzine 2018-10 Yes 50mg Take [address] (VISTARIL) 0-01 by mouth [facility] - 50 MG 13:54: once at Medical capsule 24 bedtime. Center lidocaine 2018-10 2019- No 1{patch Q24H Place [address] (LIDODERM) 0-01 08-02 } patch onto Maribel kes - 5 % patch 00:00: 23:59 the skin Med ical 00 :00 daily for Center 30 days Remove & Discard patch within 12 hours or as directed by . Amitiza Amitiza Yes Davin [address] [facility] with food [facility] Pantoprazol Pantoprazol Yes Davin [address] [facility] e Sodium e Sodium Platt [facility] Propranolol Propranolol Yes Davin [address] [address] HCl HCl Platt on an [facility]ukes - empty Memoria stomach l [facility] Vitamin D3 Vitamin D3 Yes Davin [address] Platt [facility] Levothyroxi Levothyroxi Yes Davin [address] [facility] ne Sodium ne Sodium Platt on an Jg es - empty Memoria stomach in l the [facility] morning ent Clinics Promethazin Promethazin Yes Davin [address] [facility] e-DM e-DM Platt needed [facility] - Nausea/Vom Memoria iting l [facility] Clonazepam Clonazepam Yes Davin [address] [facility] Platt at bedtime [facility] - [facility] Geodon Geodon Yes Davin [address] [facility]att with food [facility] - [facility] baclofen baclofen Yes Davin [address] Platt needed for [facility]ukes - pain Memoria l [facility] Iron Iron Yes Davin not [facility] Supplement Supplement Platt defined [facility] - Memoria l [facility] Ziprasidone Ziprasidone Yes Davin [address] HCl HCl Platt with food [facility] - [facility]oria l [facility] Tizanidine Tizanidine Yes Davin [address] HCl HCl Platt [facility] Outpati ent Clinics HydrOXYzine HydrOXYzine Yes Davin [address] HCl HCl Platt [facility] Outpati ent Clinics Gabapentin Gabapentin Yes Davin [address] Platt am and 2 [facility] Gabapentin Gabapentin Yes Davin TAKE ONE [facility] Platt TABLET BY Lukes - MOUTH Memoria EVERY l MORNING Outpati AND THEN ent TAKE TWO Clinics TABLETS BY MOUTH EVERY EVENING Wellbutrin Wellbutrin Yes Davin [address] [facility] XL XL Platt in the Lukes - morning [facility] l Outpati ent Clinics Fluoxetine Fluoxetine Yes Davin [address] HCl HCl Platt [facility] Outpati ent Clinics Procedures This patient has no known procedures. Encounters Start End Encounter Admission Attending Care Care Encounter Source Date/Time Date/Time Type Type Clinicians Facility Department ID 2020-05-15 2020-05-15 [facility] [id number] 14:15:00 14:15:00 [employer] [facility] Medicine Medicine Outpati ent Clinics 2020-04-09 2020-04-09 [facility] [id number] 08:55:00 08:55:00 [employer] [facility] Medicine Medicine Outpati ent Clinics 2020-04-07 2020-04-07 [facility] [id number] 10:34:00 10:34:00 [employer] [facility] Medicine l Medicine Outpati ent Clinics 2020-02-13 2020-02-13 [facility] [id number] 15:00:00 15:00:00 [employer] [facility] Medicine l Medicine Outpati ent Clinics 2020-02-13 2020-02-13 [facility] [id number] 15:00:00 15:00:00 t [employer] [facility] Medicine l Medicine Outpati ent Clinics 2020-02-08 2020-02-08 [facility] [id number] 08:47:00 08:47:00 [employer] [facility] Medicine l Medicine Outpati ent Clinics 2019-11-19 2019-11-19 [facility] [id number] 13:00:00 13:00:00 t [employer] [facility] ent [facility] 2019-11-12 2019-11-12 [facility] [id number] 08:28:00 08:28:00 [place] [employer] [facility] ent [facility] 2019-09-11 2019-09-11 [facility] [id number] 13:30:00 13:30:00 t Bone Bone and [facility] - and [facility] ent Clinics 2019-08-16 2019-08-16 [facility] [id number] 13:15:00 13:15:00 t [place] [employer] [facility] 2019-07-31 2019-07-31 [facility] [id number] 10:00:00 10:00:00 t Bone Bone and [facility] - and Joint [facility] Clinics 2019-07-30 2019-07-30 [facility] [id number] 14:13:00 14:13:00 t Bone Bone and [facility] - and Joint [facility] Clinics 2019-07-27 2019-07-27 [facility] [id number] 08:51:00 08:51:00 t Bone Bone and [facility] - and Joint [facility] Clinics 2019-07-10 2019-07-10 [facility] [id number] 10:00:00 10:00:00 t Bone Bone and [facility] - and Joint [facility] ent [facility] 2019-07-10 2019-07-10 [facility] [id number] 08:30:00 08:30:00 t [employer] [facility] ent [facility] 2019-07-09 2019-07-09 [facility] [id number] 10:47:00 10:47:00 [place] [employer] Luke s - Drive [facility] Medicine l Medicine Outpati ent Clinics 2019-06-20 2019-06-20 [facility] [id number] 13:30:00 13:30:00 t Bone Bone and [facility] - and Joint [facility] Clinics 2019-06-20 2019-06-20 [facility] [id number] 08:49:00 08:49:00 [place] [employer] Luke s - Drive [facility] Medicine l Medicine Outpati ent Clinics 2019-06-18 2019-06-18 [facility] [id number] 08:30:00 08:30:00 t [place] [employer] s - Drive [facility] l Medicine Outpati ent Clinics 2019-05-21 2019-05-21 [facility] [id number] 13:55:00 13:55:00 [place] [employer] Luke s - Drive [facility] Medicine Outpati ent Clinics 2019-05-18 2019-05-18 [facility] [id number] 14:40:00 14:40:00 t [place] [employer] s - Drive [facility] Medicine Outpati ent Clinics 2019-05-17 2019-05-17 [facility] [id number] 14:00:00 14:00:00 [place] [employer] s - Drive [facility] Medicine Outpati ent Clinics 2019-02-08 2019-02-08 [facility] [id number] 16:40:00 16:40:00 [place] [employer] s - Drive [facility] Medicine Outpati ent Clinics 2019-02-06 2019-02-06 [facility] [id number] 16:30:00 16:30:00 t [place] [employer] s - Drive [facility] l Medicine Outpati ent Clinics 2019-01-30 2019-01-30 [facility] [id number] 11:28:00 11:28:00 [place] [employer] s - Drive [facility] Medicine Outpati ent Clinics 2019-01-25 2019-01-25 [facility] [id number] 14:30:00 14:30:00 t [place] [employer] s - [employer] [facility] Medicine Outpati ent Clinics 2018-12-07 2018-12-07 [facility] [id number] 14:30:00 14:30:00 t [place] [employer] s - [employer] [facility] Medicine Outpati ent Clinics 2018-12-05 2018-12-05 [facility] [id number] 15:15:00 15:15:00 t Specialty/U Maribel kes - Specialty rology Memori a /Urology Clinic l Clinic Outpati ent Clinics 2018-11-08 2018-11-08 [facility] [id number] 13:25:00 13:25:00 t [employer] [facility] Medicine Outpati ent Clinics 2018-11-01 2018-11-01 [facility] [id number] 13:15:00 13:15:00 t [employer] [facility] Medicine Outpati ent Clinics 2018-10-27 2018-10-27 [facility] [id number] 12:16:00 12:16:00 t [employer] [facility] Medicine Outpati ent Clinics 2018-10-26 2018-10-26 [facility] [id number] 15:10:00 15:10:00 t Specialty/U Maribel kes - Specialty rology Memori a /Urology Clinic l Clinic Outpati ent Clinics 2018-10-26 2018-10-26 [facility] [id number] 13:45:00 13:45:00 t Specialty/U Maribel kes - Specialty rology Memori a /Urology Clinic l Clinic Outpati ent Clinics 2018-10-09 2018-10-09 [facility] [id number] 10:45:00 10:45:00 t [place] [employer] [facility] Medicine Outpati ent Clinics 2018-09-13 2018-09-13 [facility] [id number] 09:40:00 09:40:00 [facility] ent [facility] 2018-09-11 2018-09-11 Outpatient [facility]andro [facility] [id number] [facility] 14:30:00 14:30:00 [facility] Results Test Description Test Time Test Comments Results Result Comments Source LIPASE 2019-07-03 06:29:00 Test Item Value Reference Range Interpretation Comme nts LIPASE (BEAKER) (test code = 749) 48 U/L 8-78 COMPREHENSIVE METABOLIC [id number] 06:29:00 Test Item Value Reference Range Interpretation Comments TOTAL PROTEIN 6.4 gm/dL 6.0-8.3 (BEAKER) (test code = 770) ALBUMIN (BEAKER) 3.6 g/dL 3.5-5.0 (test code = 1145) ALKALINE PHOSPHATASE 349 U/L 40-150 H (BEAKER) (test code = 346) BILIRUBIN TOTAL 0.3 mg/dL 0.2-1.2 (BEAKER) (test code = 377) SODIUM (BEAKER) (test 140 meq/L 136-145 code = 381) POTASSIUM (BEAKER) 3.6 meq/L 3.5-5.1 (test code = 379) CHLORIDE (BEAKER) 106 meq/L 98-107 (test code = 382) CO2 (BEAKER) (test 25 meq/L 22-29 code = 355) BLOOD UREA NITROGEN 8 mg/dL 7-21 (BEAKER) (test code = 354) CREATININE (BEAKER) 0.82 mg/dL 0.57-1.25 (test code = 358) GLUCOSE RANDOM 91 mg/dL 70-105 (BEAKER) (test code = 652) CALCIUM (BEAKER) 9.7 mg/dL 8.4-10.2 (test code = 697) AST (SGOT) (BEAKER) 57 U/L 5-34 H (test code = 353) ALT (SGPT) (BEAKER) 64 U/L 6-55 H (test code = 347) EGFR (BEAKER) (test 72 mL/min/1.73 ESTIMA WEN GFR IS code = 1092) sq m NOT ACCURATE CREATININE CLEARANCE IN PREDICTING GLOMERULAR FILTRATION RATE . ESTIMATED GFR I S NOT APPLICABLE FOR DIALYSIS PATIEN TS. CBC W/PLT COUNT & AUTO [id number] 05:57:00 Test Item Value Reference Range Interpretation Comments WHITE BLOOD CELL COUNT (BEAKER) 4.4 K/ L 3.5-10.5 (test code = 775) RED BLOOD CELL COUNT (BEAKER) 3.72 M/ L 3.93-5.22 L (test code = 761) HEMOGLOBIN (BEAKER) (test code = 10.9 GM/DL 11.2-15.7 L 410) HEMATOCRIT (BEAKER) (test code = 33.2 % 34.1-44.9 L 411) MEAN CORPUSCULAR VOLUME (BEAKER) 89.2 fL 79.4-94.8 (test code = 753) MEAN CORPUSCULAR HEMOGLOBIN 29.3 pg 25.6-32.2 (BEAKER) (test code = 751) MEAN CORPUSCULAR HEMOGLOBIN CONC 32.8 GM/DL 32.2-35.5 (BEAKER) (test code = 752) RED CELL DISTRIBUTION WIDTH 13.1 % 11.7-14.4 (BEAKER) (test code = 412) PLATELET COUNT (BEAKER) (test 497 K/CU MM 150-450 H code = 756) MEAN PLATELET VOLUME (BEAKER) 9.3 fL 9.4-12.3 L (test code = 754) NUCLEATED RED BLOOD CELLS 0 /100 WBC 0-0 (BEAKER) (test code = 413) NEUTROPHILS RELATIVE PERCENT 50 % (BEAKER) (test code = 429) LYMPHOCYTES RELATIVE PERCENT 31 % (BEAKER) (test code = 430) MONOCYTES RELATIVE PERCENT 13 % (BEAKER) (test code = 431) EOSINOPHILS RELATIVE PERCENT 6 % (BEAKER) (test code = 432) BASOPHILS RELATIVE PERCENT 0 % (BEAKER) (test code = 437) NEUTROPHILS ABSOLUTE COUNT 2.16 K/ L 1.56-6.13 (BEAKER) (test code = 670) LYMPHOCYTES ABSOLUTE COUNT 1.33 K/ L 1.18-3.74 (BEAKER) (test code = 414) MONOCYTES ABSOLUTE COUNT (BEAKER) 0.55 K/ L 0.24-0.36 H (test code = 415) EOSINOPHILS ABSOLUTE COUNT 0.28 K/ L 0.04-0.36 (BEAKER) (test code = 416) BASOPHILS ABSOLUTE COUNT (BEAKER) 0.01 K/ L 0.01-0.08 (test code = 417) IMMATURE GRANULOCYTES-RELATIVE 1 % 0-1 PERCENT (BEAKER) (test code = 2801) CBC (HEMOGRAM ONLY)2019-07-03 05:57:00 Test Item Value Reference Range Interpretation Comments WHITE BLOOD CELL COUNT (BEAKER) 4.4 K/ L 3.5-10.5 (test code = 775) RED BLOOD CELL COUNT (BEAKER) 3.72 M/ L 3.93-5.22 L (test code = 761) HEMOGLOBIN (BEAKER) (test code = 10.9 GM/DL 11.2-15.7 L 410) HEMATOCRIT (BEAKER) (test code = 33.2 % 34.1-44.9 L 411) MEAN CORPUSCULAR VOLUME (BEAKER) 89.2 fL 79.4-94.8 (test code = 753) MEAN CORPUSCULAR HEMOGLOBIN 29.3 pg 25.6-32.2 (BEAKER) (test code = 751) MEAN CORPUSCULAR HEMOGLOBIN CONC 32.8 GM/DL 32.2-35.5 (BEAKER) (test code = 752) RED CELL DISTRIBUTION WIDTH 13.1 % 11.7-14.4 (BEAKER) (test code = 412) PLATELET COUNT (BEAKER) (test 497 K/CU MM 150-450 H code = 756) MEAN PLATELET VOLUME (BEAKER) 9.3 fL 9.4-12.3 L (test code = 754) NUCLEATED RED BLOOD CELLS 0 /100 WBC 0-0 (BEAKER) (test code = 413) RAD, ABDOMEN SERIES W/ UPRIGHT PA [id number] 13:35:00Reason for exam:- >Postoperative distentionShould this be performed at the bedside?->NoIs the patient ?->NoFINAL REPORT CLINICAL HISTORY: Postoperative distention TECHNIQUE: Supine anderect abdomen and frontal chest views. COMPARISON: Chest 06/25/2019 IMPRESSION: Chest: There are no focal infiltrates or effusions. The cardiomediastinal silhouette is within normal limits for size. The visualized bones are intact. There is elevation of the right hemidiaphragm. Abdomen: The bowel gas pattern is nonspecific with moderate stool in the right hemicolon and transverse colon. There are a few nonspecific air-fluid levels in nondistended appearing loops of small bowel in the upper abdomen. There are left upper and lower abdomen chains sutures with bilateral abdominal surgical clips. There is no free air. Signed: Megha Gutierrez MDReport Verified Date/Time: 07/02/2019 13:35:05 Reading Location: [facility] Radiology Reading Room [id number] 06:54:00 Test Item Value Reference Range Interpretation Comments LIPASE (BEAKER) (test code = 749) 56 U/L 8-78 COMPREHENSIVE METABOLIC [id number] 06:54:00 Test Item Value Reference Range Interpretation Comments TOTAL PROTEIN 6.8 gm/dL 6.0-8.3 (BEAKER) (test code = 770) ALBUMIN (BEAKER) 3.8 g/dL 3.5-5.0 (test code = 1145) ALKALINE PHOSPHATASE 221 U/L 40-150 H (BEAKER) (test code = 346) BILIRUBIN TOTAL 0.3 mg/dL 0.2-1.2 (BEAKER) (test code = 377) SODIUM (BEAKER) (test 138 meq/L 136-145 code = 381) POTASSIUM (BEAKER) 3.6 meq/L 3.5-5.1 (test code = 379) CHLORIDE (BEAKER) 105 meq/L 98-107 (test code = 382) CO2 (BEAKER) (test 25 meq/L 22-29 code = 355) BLOOD UREA NITROGEN 10 mg/dL 7-21 (BEAKER) (test code = 354) CREATININE (BEAKER) 0.95 mg/dL 0.57-1.25 (test code = 358) GLUCOSE RANDOM 79 mg/dL 70-105 (BEAKER) (test code = 652) CALCIUM (BEAKER) 9.6 mg/dL 8.4-10.2 (test code = 697) AST (SGOT) (BEAKER) 26 U/L 5-34 (test code = 353) ALT (SGPT) (BEAKER) 40 U/L 6-55 (test code = 347) EGFR (BEAKER) (test 61 mL/min/1.73 ESTIMA WEN GFR IS code = 1092) sq m NOT ACCURATE CREATININE CLEARANCE IN PREDICTING GLOMERULAR FILTRATION RATE . ESTIMATED GFR I S NOT APPLICABLE FOR DIALYSIS PATIEN TS. CBC W/PLT COUNT & AUTO [id number] 06:31:00 Test Item Value Reference Range Interpretation Comments WHITE BLOOD CELL COUNT (BEAKER) 4.9 K/ L 3.5-10.5 (test code = 775) RED BLOOD CELL COUNT (BEAKER) 3.95 M/ L 3.93-5.22 (test code = 761) HEMOGLOBIN (BEAKER) (test code = 11.1 GM/DL 11.2-15.7 L 410) HEMATOCRIT (BEAKER) (test code = 35.9 % 34.1-44.9 411) MEAN CORPUSCULAR VOLUME (BEAKER) 90.9 fL 79.4-94.8 (test code = 753) MEAN CORPUSCULAR HEMOGLOBIN 28.1 pg 25.6-32.2 (BEAKER) (test code = 751) MEAN CORPUSCULAR HEMOGLOBIN CONC 30.9 GM/DL 32.2-35.5 L (BEAKER) (test code = 752) RED CELL DISTRIBUTION WIDTH 13.1 % 11.7-14.4 (BEAKER) (test code = 412) PLATELET COUNT (BEAKER) (test 463 K/CU MM 150-450 H code = 756) MEAN PLATELET VOLUME (BEAKER) 9.4 fL 9.4-12.3 (test code = 754) NUCLEATED RED BLOOD CELLS 0 /100 WBC 0-0 (BEAKER) (test code = 413) NEUTROPHILS RELATIVE PERCENT 46 % (BEAKER) (test code = 429) LYMPHOCYTES RELATIVE PERCENT 36 % (BEAKER) (test code = 430) MONOCYTES RELATIVE PERCENT 10 % (BEAKER) (test code = 431) EOSINOPHILS RELATIVE PERCENT 7 % (BEAKER) (test code = 432) BASOPHILS RELATIVE PERCENT 0 % (BEAKER) (test code = 437) NEUTROPHILS ABSOLUTE COUNT 2.26 K/ L 1.56-6.13 (BEAKER) (test code = 670) LYMPHOCYTES ABSOLUTE COUNT 1.76 K/ L 1.18-3.74 (BEAKER) (test code = 414) MONOCYTES ABSOLUTE COUNT (BEAKER) 0.51 K/ L 0.24-0.36 H (test code = 415) EOSINOPHILS ABSOLUTE COUNT 0.33 K/ L 0.04-0.36 (BEAKER) (test code = 416) BASOPHILS ABSOLUTE COUNT (BEAKER) 0.02 K/ L 0.01-0.08 (test code = 417) IMMATURE GRANULOCYTES-RELATIVE 1 % 0-1 PERCENT (BEAKER) (test code = 2801) CBC W/PLT COUNT & AUTO [id number] 06:59:00 Test Item Value Reference Range Interpretation Comments WHITE BLOOD CELL COUNT (BEAKER) 4.7 K/ L 3.5-10.5 (test code = 775) RED BLOOD CELL COUNT (BEAKER) 3.66 M/ L 3.93-5.22 L (test code = 761) HEMOGLOBIN (BEAKER) (test code = 10.6 GM/DL 11.2-15.7 L 410) HEMATOCRIT (BEAKER) (test code = 33.5 % 34.1-44.9 L 411) MEAN CORPUSCULAR VOLUME (BEAKER) 91.5 fL 79.4-94.8 (test code = 753) MEAN CORPUSCULAR HEMOGLOBIN 29.0 pg 25.6-32.2 (BEAKER) (test code = 751) MEAN CORPUSCULAR HEMOGLOBIN CONC 31.6 GM/DL 32.2-35.5 L (BEAKER) (test code = 752) RED CELL DISTRIBUTION WIDTH 13.2 % 11.7-14.4 (BEAKER) (test code = 412) PLATELET COUNT (BEAKER) (test 391 K/CU MM 150-450 code = 756) MEAN PLATELET VOLUME (BEAKER) 9.4 fL 9.4-12.3 (test code = 754) NUCLEATED RED BLOOD CELLS 0 /100 WBC 0-0 (BEAKER) (test code = 413) NEUTROPHILS RELATIVE PERCENT 41 % (BEAKER) (test code = 429) LYMPHOCYTES RELATIVE PERCENT 40 % (BEAKER) (test code = 430) MONOCYTES RELATIVE PERCENT 9 % (BEAKER) (test code = 431) EOSINOPHILS RELATIVE PERCENT 9 % (BEAKER) (test code = 432) BASOPHILS RELATIVE PERCENT 1 % (BEAKER) (test code = 437) NEUTROPHILS ABSOLUTE COUNT 1.94 K/ L 1.56-6.13 (BEAKER) (test code = 670) LYMPHOCYTES ABSOLUTE COUNT 1.86 K/ L 1.18-3.74 (BEAKER) (test code = 414) MONOCYTES ABSOLUTE COUNT (BEAKER) 0.42 K/ L 0.24-0.36 H (test code = 415) EOSINOPHILS ABSOLUTE COUNT 0.41 K/ L 0.04-0.36 H (BEAKER) (test code = 416) BASOPHILS ABSOLUTE COUNT (BEAKER) 0.03 K/ L 0.01-0.08 (test code = 417) IMMATURE GRANULOCYTES-RELATIVE 1 % 0-1 PERCENT (BEAKER) (test code = 2801) [id number] 06:51:00 Test Item Value Reference Range Interpretation Comments LIPASE (BEAKER) (test code = 749) 53 U/L 8-78 COMPREHENSIVE METABOLIC [id number] 06:51:00 Test Item Value Reference Range Interpretation Comments TOTAL PROTEIN 6.2 gm/dL 6.0-8.3 (BEAKER) (test code = 770) ALBUMIN (BEAKER) 3.6 g/dL 3.5-5.0 (test code = 1145) ALKALINE PHOSPHATASE 188 U/L 40-150 H (BEAKER) (test code = 346) BILIRUBIN TOTAL 0.2 mg/dL 0.2-1.2 (BEAKER) (test code = 377) SODIUM (BEAKER) (test 140 meq/L 136-145 code = 381) POTASSIUM (BEAKER) 3.5 meq/L 3.5-5.1 (test code = 379) CHLORIDE (BEAKER) 109 meq/L 98-107 H (test code = 382) CO2 (BEAKER) (test 22 meq/L 22-29 code = 355) BLOOD UREA NITROGEN 6 mg/dL 7-21 L (BEAKER) (test code = 354) CREATININE (BEAKER) 0.81 mg/dL 0.57-1.25 (test code = 358) GLUCOSE RANDOM 88 mg/dL 70-105 (BEAKER) (test code = 652) CALCIUM (BEAKER) 9.2 mg/dL 8.4-10.2 (test code = 697) AST (SGOT) (BEAKER) 11 U/L 5-34 (test code = 353) ALT (SGPT) (BEAKER) 43 U/L 6-55 (test code = 347) EGFR (BEAKER) (test 73 mL/min/1.73 ESTIMA WEN GFR IS code = 1092) sq m NOT ACCURATE CREATININE CLEARANCE IN PREDICTING GLOMERULAR FILTRATION RATE . ESTIMATED GFR I S NOT APPLICABLE FOR DIALYSIS PATIEN TS. CBC W/PLT COUNT & AUTO [id number] 06:20:00 Test Item Value Reference Range Interpretation Comments WHITE BLOOD CELL COUNT 3.8 K/ L 3.5-10.5 (BEAKER) (test code = 775) RED BLOOD CELL COUNT 3.71 M/ L 3.93-5.22 L (BEAKER) (test code = 761) HEMOGLOBIN (BEAKER) 10.7 GM/DL 11.2-15.7 L (test code = 410) HEMATOCRIT (BEAKER) 33.4 % 34.1-44.9 L (test code = 411) MEAN CORPUSCULAR 90.0 fL 79.4-94.8 Discordant MCV VOLUME (BEAKER) (test result s compared to code = 753) previous result s; clinical correl ation required. MEAN CORPUSCULAR 28.8 pg 25.6-32.2 HEMOGLOBIN (BEAKER) (test code = 751) MEAN CORPUSCULAR 32.0 GM/DL 32.2-35.5 L HEMOGLOBIN CONC (BEAKER) (test code = 752) RED CELL DISTRIBUTION 13.3 % 11.7-14.4 WIDTH (BEAKER) (test code = 412) PLATELET COUNT 384 K/CU MM 150-450 (BEAKER) (test code = 756) MEAN PLATELET VOLUME 9.6 fL 9.4-12.3 (BEAKER) (test code = 754) NUCLEATED RED BLOOD 0 /100 WBC 0-0 CELLS (BEAKER) (test code = 413) NEUTROPHILS RELATIVE 41 % PERCENT (BEAKER) (test code = 429) LYMPHOCYTES RELATIVE 38 % PERCENT (BEAKER) (test code = 430) MONOCYTES RELATIVE 10 % PERCENT (BEAKER) (test code = 431) EOSINOPHILS RELATIVE 10 % PERCENT (BEAKER) (test code = 432) BASOPHILS RELATIVE 0 % PERCENT (BEAKER) (test code = 437) NEUTROPHILS ABSOLUTE 1.55 K/ L 1.56-6.13 L COUNT (BEAKER) (test code = 670) LYMPHOCYTES ABSOLUTE 1.43 K/ L 1.18-3.74 COUNT (BEAKER) (test code = 414) MONOCYTES ABSOLUTE 0.38 K/ L 0.24-0.36 H COUNT (BEAKER) (test code = 415) EOSINOPHILS ABSOLUTE 0.39 K/ L 0.04-0.36 H COUNT (BEAKER) (test code = 416) BASOPHILS ABSOLUTE 0.01 K/ L 0.01-0.08 COUNT (BEAKER) (test code = 417) IMMATURE 1 % 0-1 GRANULOCYTES-RELATIVE PERCENT (BEAKER) (test code = 2801) [id number] 05:44:00 Test Item Value Reference Range Interpretation Comments LIPASE (BEAKER) (test code = 749) 52 U/L 8-78 COMPREHENSIVE METABOLIC [id number] 05:44:00 Test Item Value Reference Range Interpretation Comments TOTAL PROTEIN 6.1 gm/dL 6.0-8.3 (BEAKER) (test code = 770) ALBUMIN (BEAKER) 3.4 g/dL 3.5-5.0 L (test code = 1145) ALKALINE PHOSPHATASE 194 U/L 40-150 H (BEAKER) (test code = 346) BILIRUBIN TOTAL 0.3 mg/dL 0.2-1.2 (BEAKER) (test code = 377) SODIUM (BEAKER) (test 142 meq/L 136-145 code = 381) POTASSIUM (BEAKER) 3.5 meq/L 3.5-5.1 (test code = 379) CHLORIDE (BEAKER) 113 meq/L 98-107 H (test code = 382) CO2 (BEAKER) (test 22 meq/L 22-29 code = 355) BLOOD UREA NITROGEN 5 mg/dL 7-21 L (BEAKER) (test code = 354) CREATININE (BEAKER) 0.75 mg/dL 0.57-1.25 (test code = 358) GLUCOSE RANDOM 88 mg/dL 70-105 (BEAKER) (test code = 652) CALCIUM (BEAKER) 9.3 mg/dL 8.4-10.2 (test code = 697) AST (SGOT) (BEAKER) 10 U/L 5-34 (test code = 353) ALT (SGPT) (BEAKER) 57 U/L 6-55 H (test code = 347) EGFR (BEAKER) (test 80 mL/min/1.73 ESTIMA WEN GFR IS code = 1092) sq m NOT ACCURATE CREATININE CLEARANCE IN PREDICTING GLOMERULAR FILTRATION RATE . ESTIMATED GFR I S NOT APPLICABLE FOR DIALYSIS PATIEN TS. [id number] 05:21:00 Test Item Value Reference Range Interpretation Comments LIPASE (BEAKER) (test code = 749) 72 U/L 8-78 COMPREHENSIVE METABOLIC [id number] 05:21:00 Test Item Value Reference Range Interpretation Comments TOTAL PROTEIN 6.0 gm/dL 6.0-8.3 (BEAKER) (test code = 770) ALBUMIN (BEAKER) 3.3 g/dL 3.5-5.0 L (test code = 1145) ALKALINE PHOSPHATASE 202 U/L 40-150 H (BEAKER) (test code = 346) BILIRUBIN TOTAL 0.3 mg/dL 0.2-1.2 (BEAKER) (test code = 377) SODIUM (BEAKER) (test 143 meq/L 136-145 code = 381) POTASSIUM (BEAKER) 3.4 meq/L 3.5-5.1 L (test code = 379) CHLORIDE (BEAKER) 118 meq/L 98-107 H (test code = 382) CO2 (BEAKER) (test 19 meq/L 22-29 L code = 355) BLOOD UREA NITROGEN 5 mg/dL 7-21 L (BEAKER) (test code = 354) CREATININE (BEAKER) 0.71 mg/dL 0.57-1.25 (test code = 358) GLUCOSE RANDOM 106 mg/dL 70-105 H (BEAKER) (test code = 652) CALCIUM (BEAKER) 9.5 mg/dL 8.4-10.2 (test code = 697) AST (SGOT) (BEAKER) 17 U/L 5-34 (test code = 353) ALT (SGPT) (BEAKER) 85 U/L 6-55 H (test code = 347) EGFR (BEAKER) (test 85 mL/min/1.73 ESTIMA WEN GFR IS code = 1092) sq m NOT ACCURATE CREATININE CLEARANCE IN PREDICTING GLOMERULAR FILTRATION RATE . ESTIMATED GFR I S NOT APPLICABLE FOR DIALYSIS PATIEN TS. CBC W/PLT COUNT & AUTO [id number] 05:14:00 Test Item Value Reference Range Interpretation Comments WHITE BLOOD CELL COUNT (BEAKER) 4.8 K/ L 3.5-10.5 (test code = 775) RED BLOOD CELL COUNT (BEAKER) 3.63 M/ L 3.93-5.22 L (test code = 761) HEMOGLOBIN (BEAKER) (test code = 10.6 GM/DL 11.2-15.7 L 410) HEMATOCRIT (BEAKER) (test code = 34.6 % 34.1-44.9 411) MEAN CORPUSCULAR VOLUME (BEAKER) 95.3 fL 79.4-94.8 H (test code = 753) MEAN CORPUSCULAR HEMOGLOBIN 29.2 pg 25.6-32.2 (BEAKER) (test code = 751) MEAN CORPUSCULAR HEMOGLOBIN CONC 30.6 GM/DL 32.2-35.5 L (BEAKER) (test code = 752) RED CELL DISTRIBUTION WIDTH 13.2 % 11.7-14.4 (BEAKER) (test code = 412) PLATELET COUNT (BEAKER) (test 322 K/CU MM 150-450 code = 756) MEAN PLATELET VOLUME (BEAKER) 10.0 fL 9.4-12.3 (test code = 754) NUCLEATED RED BLOOD CELLS 0 /100 WBC 0-0 (BEAKER) (test code = 413) NEUTROPHILS RELATIVE PERCENT 39 % (BEAKER) (test code = 429) LYMPHOCYTES RELATIVE PERCENT 39 % (BEAKER) (test code = 430) MONOCYTES RELATIVE PERCENT 12 % (BEAKER) (test code = 431) EOSINOPHILS RELATIVE PERCENT 9 % (BEAKER) (test code = 432) BASOPHILS RELATIVE PERCENT 0 % (BEAKER) (test code = 437) NEUTROPHILS ABSOLUTE COUNT 1.85 K/ L 1.56-6.13 (BEAKER) (test code = 670) LYMPHOCYTES ABSOLUTE COUNT 1.87 K/ L 1.18-3.74 (BEAKER) (test code = 414) MONOCYTES ABSOLUTE COUNT (BEAKER) 0.57 K/ L 0.24-0.36 H (test code = 415) EOSINOPHILS ABSOLUTE COUNT 0.42 K/ L 0.04-0.36 H (BEAKER) (test code = 416) BASOPHILS ABSOLUTE COUNT (BEAKER) 0.02 K/ L 0.01-0.08 (test code = 417) IMMATURE GRANULOCYTES-RELATIVE 1 % 0-1 PERCENT (BEAKER) (test code = 2801) [id number] 05:17:00 Test Item Value Reference Range Interpretation Comments LIPASE (BEAKER) (test code = 749) 55 U/L 8-78 COMPREHENSIVE METABOLIC [id number] 05:17:00 Test Item Value Reference Range Interpretation Comments TOTAL PROTEIN 6.2 gm/dL 6.0-8.3 (BEAKER) (test code = 770) ALBUMIN (BEAKER) 3.4 g/dL 3.5-5.0 L (test code = 1145) ALKALINE PHOSPHATASE 232 U/L 40-150 H (BEAKER) (test code = 346) BILIRUBIN TOTAL 0.5 mg/dL 0.2-1.2 (BEAKER) (test code = 377) SODIUM (BEAKER) (test 137 meq/L 136-145 code = 381) POTASSIUM (BEAKER) 3.8 meq/L 3.5-5.1 (test code = 379) CHLORIDE (BEAKER) 113 meq/L 98-107 H (test code = 382) CO2 (BEAKER) (test 15 meq/L 22-29 L code = 355) BLOOD UREA NITROGEN 5 mg/dL 7-21 L (BEAKER) (test code = 354) CREATININE (BEAKER) 0.74 mg/dL 0.57-1.25 (test code = 358) GLUCOSE RANDOM 121 mg/dL 70-105 H (BEAKER) (test code = 652) CALCIUM (BEAKER) 9.2 mg/dL 8.4-10.2 (test code = 697) AST (SGOT) (BEAKER) 33 U/L 5-34 (test code = 353) ALT (SGPT) (BEAKER) 129 U/L 6-55 H (test code = 347) EGFR (BEAKER) (test 81 mL/min/1.73 ESTIMA WEN GFR IS code = 1092) sq m NOT ACCURATE CREATININE CLEARANCE IN PREDICTING GLOMERULAR FILTRATION RATE . ESTIMATED GFR I S NOT APPLICABLE FOR DIALYSIS PATIEN TS. CBC W/PLT COUNT & AUTO [id number] 04:59:00 Test Item Value Reference Range Interpretation Comments WHITE BLOOD CELL COUNT (BEAKER) 7.5 K/ L 3.5-10.5 (test code = 775) RED BLOOD CELL COUNT (BEAKER) 3.40 M/ L 3.93-5.22 L (test code = 761) HEMOGLOBIN (BEAKER) (test code = 9.7 GM/DL 11.2-15.7 L 410) HEMATOCRIT (BEAKER) (test code = 31.7 % 34.1-44.9 L 411) MEAN CORPUSCULAR VOLUME (BEAKER) 93.2 fL 79.4-94.8 (test code = 753) MEAN CORPUSCULAR HEMOGLOBIN 28.5 pg 25.6-32.2 (BEAKER) (test code = 751) MEAN CORPUSCULAR HEMOGLOBIN CONC 30.6 GM/DL 32.2-35.5 L (BEAKER) (test code = 752) RED CELL DISTRIBUTION WIDTH 13.2 % 11.7-14.4 (BEAKER) (test code = 412) PLATELET COUNT (BEAKER) (test 319 K/CU MM 150-450 code = 756) MEAN PLATELET VOLUME (BEAKER) 9.5 fL 9.4-12.3 (test code = 754) NUCLEATED RED BLOOD CELLS 0 /100 WBC 0-0 (BEAKER) (test code = 413) NEUTROPHILS RELATIVE PERCENT 70 % (BEAKER) (test code = 429) LYMPHOCYTES RELATIVE PERCENT 16 % (BEAKER) (test code = 430) MONOCYTES RELATIVE PERCENT 9 % (BEAKER) (test code = 431) EOSINOPHILS RELATIVE PERCENT 4 % (BEAKER) (test code = 432) BASOPHILS RELATIVE PERCENT 0 % (BEAKER) (test code = 437) NEUTROPHILS ABSOLUTE COUNT 5.23 K/ L 1.56-6.13 (BEAKER) (test code = 670) LYMPHOCYTES ABSOLUTE COUNT 1.22 K/ L 1.18-3.74 (BEAKER) (test code = 414) MONOCYTES ABSOLUTE COUNT (BEAKER) 0.70 K/ L 0.24-0.36 H (test code = 415) EOSINOPHILS ABSOLUTE COUNT 0.30 K/ L 0.04-0.36 (BEAKER) (test code = 416) BASOPHILS ABSOLUTE COUNT (BEAKER) 0.01 K/ L 0.01-0.08 (test code = 417) IMMATURE GRANULOCYTES-RELATIVE 1 % 0-1 PERCENT (BEAKER) (test code = 2801) CBC (HEMOGRAM ONLY)[id number] 04:59:00 Test Item Value Reference Range Interpretation Comments WHITE BLOOD CELL COUNT (BEAKER) 7.5 K/ L 3.5-10.5 (test code = 775) RED BLOOD CELL COUNT (BEAKER) 3.40 M/ L 3.93-5.22 L (test code = 761) HEMOGLOBIN (BEAKER) (test code = 9.7 GM/DL 11.2-15.7 L 410) HEMATOCRIT (BEAKER) (test code = 31.7 % 34.1-44.9 L 411) MEAN CORPUSCULAR VOLUME (BEAKER) 93.2 fL 79.4-94.8 (test code = 753) MEAN CORPUSCULAR HEMOGLOBIN 28.5 pg 25.6-32.2 (BEAKER) (test code = 751) MEAN CORPUSCULAR HEMOGLOBIN CONC 30.6 GM/DL 32.2-35.5 L (BEAKER) (test code = 752) RED CELL DISTRIBUTION WIDTH 13.2 % 11.7-14.4 (BEAKER) (test code = 412) PLATELET COUNT (BEAKER) (test 319 K/CU MM 150-450 code = 756) MEAN PLATELET VOLUME (BEAKER) 9.5 fL 9.4-12.3 (test code = 754) NUCLEATED RED BLOOD CELLS 0 /100 WBC 0-0 (BEAKER) (test code = 413) [id number] 07:03:00 Test Item Value Reference Range Interpretation Comments LIPASE (BEAKER) (test code = 749) 40 U/L 8-78 COMPREHENSIVE METABOLIC [id number] 07:03:00 Test Item Value Reference Range Interpretation Comments TOTAL PROTEIN 5.9 gm/dL 6.0-8.3 L (BEAKER) (test code = 770) ALBUMIN (BEAKER) 3.4 g/dL 3.5-5.0 L (test code = 1145) ALKALINE PHOSPHATASE 259 U/L 40-150 H (BEAKER) (test code = 346) BILIRUBIN TOTAL 0.4 mg/dL 0.2-1.2 (BEAKER) (test code = 377) SODIUM (BEAKER) (test 138 meq/L 136-145 code = 381) POTASSIUM (BEAKER) 3.3 meq/L 3.5-5.1 L (test code = 379) CHLORIDE (BEAKER) 114 meq/L 98-107 H (test code = 382) CO2 (BEAKER) (test 17 meq/L 22-29 L code = 355) BLOOD UREA NITROGEN 6 mg/dL 7-21 L (BEAKER) (test code = 354) CREATININE (BEAKER) 0.78 mg/dL 0.57-1.25 (test code = 358) GLUCOSE RANDOM 118 mg/dL 70-105 H (BEAKER) (test code = 652) CALCIUM (BEAKER) 8.8 mg/dL 8.4-10.2 (test code = 697) AST (SGOT) (BEAKER) 89 U/L 5-34 H (test code = 353) ALT (SGPT) (BEAKER) 192 U/L 6-55 H (test code = 347) EGFR (BEAKER) (test 77 mL/min/1.73 ESTIMA WEN GFR IS code = 1092) sq m NOT ACCURATE CREATININE CLEARANCE IN PREDICTING GLOMERULAR FILTRATION RATE . ESTIMATED GFR I S NOT APPLICABLE FOR DIALYSIS PATIEN TS. CBC W/PLT COUNT & AUTO [id number] 06:03:00 Test Item Value Reference Range Interpretation Comments WHITE BLOOD CELL COUNT (BEAKER) 7.8 K/ L 3.5-10.5 (test code = 775) RED BLOOD CELL COUNT (BEAKER) 3.74 M/ L 3.93-5.22 L (test code = 761) HEMOGLOBIN (BEAKER) (test code = 10.8 GM/DL 11.2-15.7 L 410) HEMATOCRIT (BEAKER) (test code = 35.4 % 34.1-44.9 411) MEAN CORPUSCULAR VOLUME (BEAKER) 94.7 fL 79.4-94.8 (test code = 753) MEAN CORPUSCULAR HEMOGLOBIN 28.9 pg 25.6-32.2 (BEAKER) (test code = 751) MEAN CORPUSCULAR HEMOGLOBIN CONC 30.5 GM/DL 32.2-35.5 L (BEAKER) (test code = 752) RED CELL DISTRIBUTION WIDTH 13.3 % 11.7-14.4 (BEAKER) (test code = 412) PLATELET COUNT (BEAKER) (test 290 K/CU MM 150-450 code = 756) MEAN PLATELET VOLUME (BEAKER) 9.3 fL 9.4-12.3 L (test code = 754) NUCLEATED RED BLOOD CELLS 0 /100 WBC 0-0 (BEAKER) (test code = 413) NEUTROPHILS RELATIVE PERCENT 67 % (BEAKER) (test code = 429) LYMPHOCYTES RELATIVE PERCENT 17 % (BEAKER) (test code = 430) MONOCYTES RELATIVE PERCENT 12 % (BEAKER) (test code = 431) EOSINOPHILS RELATIVE PERCENT 4 % (BEAKER) (test code = 432) BASOPHILS RELATIVE PERCENT 0 % (BEAKER) (test code = 437) NEUTROPHILS ABSOLUTE COUNT 5.27 K/ L 1.56-6.13 (BEAKER) (test code = 670) LYMPHOCYTES ABSOLUTE COUNT 1.32 K/ L 1.18-3.74 (BEAKER) (test code = 414) MONOCYTES ABSOLUTE COUNT (BEAKER) 0.90 K/ L 0.24-0.36 H (test code = 415) EOSINOPHILS ABSOLUTE COUNT 0.29 K/ L 0.04-0.36 (BEAKER) (test code = 416) BASOPHILS ABSOLUTE COUNT (BEAKER) 0.02 K/ L 0.01-0.08 (test code = 417) IMMATURE GRANULOCYTES-RELATIVE 0 % 0-1 PERCENT (BEAKER) (test code = 2801) [id number] 07:19:00 Test Item Value Reference Range Interpretation Comments LIPASE (BEAKER) (test code = 749) 37 U/L 8-78 COMPREHENSIVE METABOLIC [id number] 07:19:00 Test Item Value Reference Range Interpretation Comments TOTAL PROTEIN 6.1 gm/dL 6.0-8.3 (BEAKER) (test code = 770) ALBUMIN (BEAKER) 3.5 g/dL 3.5-5.0 (test code = 1145) ALKALINE PHOSPHATASE 372 U/L 40-150 H (BEAKER) (test code = 346) BILIRUBIN TOTAL 0.5 mg/dL 0.2-1.2 (BEAKER) (test code = 377) SODIUM (BEAKER) (test 140 meq/L 136-145 code = 381) POTASSIUM (BEAKER) 3.6 meq/L 3.5-5.1 (test code = 379) CHLORIDE (BEAKER) 115 meq/L 98-107 H (test code = 382) CO2 (BEAKER) (test 16 meq/L 22-29 L code = 355) BLOOD UREA NITROGEN 10 mg/dL 7-21 (BEAKER) (test code = 354) CREATININE (BEAKER) 0.87 mg/dL 0.57-1.25 (test code = 358) GLUCOSE RANDOM 160 mg/dL 70-105 H (BEAKER) (test code = 652) CALCIUM (BEAKER) 8.2 mg/dL 8.4-10.2 L (test code = 697) AST (SGOT) (BEAKER) 459 U/L 5-34 H (test code = 353) ALT (SGPT) (BEAKER) 353 U/L 6-55 H (test code = 347) EGFR (BEAKER) (test 68 mL/min/1.73 ESTIMA WEN GFR IS code = 1092) sq m NOT ACCURATE CREATININE CLEARANCE IN PREDICTING GLOMERULAR FILTRATION RATE . ESTIMATED GFR I S NOT APPLICABLE FOR DIALYSIS PATIEN TS. CBC W/PLT COUNT & AUTO [id number] 05:30:00 Test Item Value Reference Range Interpretation Comments WHITE BLOOD CELL COUNT (BEAKER) 10.9 K/ L 3.5-10.5 H (test code = 775) RED BLOOD CELL COUNT (BEAKER) 3.95 M/ L 3.93-5.22 (test code = 761) HEMOGLOBIN (BEAKER) (test code = 11.5 GM/DL 11.2-15.7 410) HEMATOCRIT (BEAKER) (test code = 36.9 % 34.1-44.9 411) MEAN CORPUSCULAR VOLUME (BEAKER) 93.4 fL 79.4-94.8 (test code = 753) MEAN CORPUSCULAR HEMOGLOBIN 29.1 pg 25.6-32.2 (BEAKER) (test code = 751) MEAN CORPUSCULAR HEMOGLOBIN CONC 31.2 GM/DL 32.2-35.5 L (BEAKER) (test code = 752) RED CELL DISTRIBUTION WIDTH 13.4 % 11.7-14.4 (BEAKER) (test code = 412) PLATELET COUNT (BEAKER) (test 395 K/CU MM 150-450 code = 756) MEAN PLATELET VOLUME (BEAKER) 9.3 fL 9.4-12.3 L (test code = 754) NUCLEATED RED BLOOD CELLS 0 /100 WBC 0-0 (BEAKER) (test code = 413) NEUTROPHILS RELATIVE PERCENT 85 % (BEAKER) (test code = 429) LYMPHOCYTES RELATIVE PERCENT 5 % (BEAKER) (test code = 430) MONOCYTES RELATIVE PERCENT 9 % (BEAKER) (test code = 431) EOSINOPHILS RELATIVE PERCENT 0 % (BEAKER) (test code = 432) BASOPHILS RELATIVE PERCENT 0 % (BEAKER) (test code = 437) NEUTROPHILS ABSOLUTE COUNT 9.30 K/ L 1.56-6.13 H (BEAKER) (test code = 670) LYMPHOCYTES ABSOLUTE COUNT 0.50 K/ L 1.18-3.74 L (BEAKER) (test code = 414) MONOCYTES ABSOLUTE COUNT (BEAKER) 1.00 K/ L 0.24-0.36 H (test code = 415) EOSINOPHILS ABSOLUTE COUNT 0.04 K/ L 0.04-0.36 (BEAKER) (test code = 416) BASOPHILS ABSOLUTE COUNT (BEAKER) 0.01 K/ L 0.01-0.08 (test code = 417) IMMATURE GRANULOCYTES-RELATIVE 0 % 0-1 PERCENT (BEAKER) (test code = 2801) BASIC METABOLIC [id number] 20:44:00 Test Item Value Reference Range Interpretation Comments SODIUM (BEAKER) 141 meq/L 136-145 (test code = 381) POTASSIUM (BEAKER) 3.3 meq/L 3.5-5.1 L (test code = 379) CHLORIDE (BEAKER) 116 meq/L 98-107 H (test code = 382) CO2 (BEAKER) (test 18 meq/L 22-29 L code = 355) BLOOD UREA NITROGEN 11 mg/dL 7-21 (BEAKER) (test code = 354) CREATININE (BEAKER) 0.82 mg/dL 0.57-1.25 (test code = 358) GLUCOSE RANDOM 105 mg/dL 70-105 (BEAKER) (test code = 652) CALCIUM (BEAKER) 8.0 mg/dL 8.4-10.2 L (test code = 697) EGFR (BEAKER) (test 72 mL/min/1.73 ESTIMA WEN GFR IS code = 1092) sq m NOT ACCURATE CREATININE CLEARANCE IN PREDICTING GLOMERULAR FILTRATION RATE . ESTIMATED GFR I S NOT APPLICABLE FOR DIALYSIS PATIEN TS. CBC (HEMOGRAM ONLY)2019-06-25 20:27:00 Test Item Value Reference Range Interpretation Comments WHITE BLOOD CELL COUNT (BEAKER) 6.1 K/ L 3.5-10.5 (test code = 775) RED BLOOD CELL COUNT (BEAKER) 3.70 M/ L 3.93-5.22 L (test code = 761) HEMOGLOBIN (BEAKER) (test code = 10.8 GM/DL 11.2-15.7 L 410) HEMATOCRIT (BEAKER) (test code = 33.9 % 34.1-44.9 L 411) MEAN CORPUSCULAR VOLUME (BEAKER) 91.6 fL 79.4-94.8 (test code = 753) MEAN CORPUSCULAR HEMOGLOBIN 29.2 pg 25.6-32.2 (BEAKER) (test code = 751) MEAN CORPUSCULAR HEMOGLOBIN CONC 31.9 GM/DL 32.2-35.5 L (BEAKER) (test code = 752) RED CELL DISTRIBUTION WIDTH 13.3 % 11.7-14.4 (BEAKER) (test code = 412) PLATELET COUNT (BEAKER) (test 359 K/CU MM 150-450 code = 756) MEAN PLATELET VOLUME (BEAKER) 9.2 fL 9.4-12.3 L (test code = 754) NUCLEATED RED BLOOD CELLS 0 /100 WBC 0-0 (BEAKER) (test code = 413) PROTHROMBIN TIME/[id number] 15:49:00 Test Item Value Reference Range Interpretation Comments PROTIME (BEAKER) (test code = 13.3 seconds 11.9-14.2 759) INR (BEAKER) (test code = 370) 1.1 <=5.9 Effective 02/28/2019: PT Reference Range ChangeNew: 11.9-14.2 Previous: 11.7- 14.7RECOMMENDED COUMADIN/WARFARIN INR THERAPY RANGESSTANDARD DOSE: 2.0-3.0 Includes: PROPHYLAXIS for venous thrombosis, systemic embolization; TREATMENT for venous thrombosis and/or pulmonary embolus.HIGH RISK: Target INR is2.5-3.5 for patients wiht mechanical heart valves.RAD, CHEST, 1 VIEW, NON [id number] 15:13:00Reason for exam:->preopShould this be performed at the bedside?->YesFINAL REPORT INDICATION: preop COMPARISON: None TECHNIQUE: Single frontal view of the chest. FINDINGS: Lungs and pleura: Clear lungs. No effusion.Heart and mediastinum: Normal heart size. Unremarkable mediastinal contours.Osseous structures: No acute abnormality.Other: None. IMPRESSION: No acute intrathoracic abnormality. Signed: Melonie Fan MDReport Verified Date/Time: 06/25/2019 15:13:30 [facility] [id number] 11:37:00 Test Item Value Reference Range Interpretation Comments LIPASE (BEAKER) (test code = 749) 168 U/L 8-78 H COMPREHENSIVE METABOLIC [id number] 11:37:00 Test Item Value Reference Range Interpretation Comments TOTAL PROTEIN 6.5 gm/dL 6.0-8.3 (BEAKER) (test code = 770) ALBUMIN (BEAKER) 3.8 g/dL 3.5-5.0 (test code = 1145) ALKALINE PHOSPHATASE 379 U/L 40-150 H (BEAKER) (test code = 346) BILIRUBIN TOTAL 0.5 mg/dL 0.2-1.2 (BEAKER) (test code = 377) SODIUM (BEAKER) (test 139 meq/L 136-145 code = 381) POTASSIUM (BEAKER) 3.7 meq/L 3.5-5.1 (test code = 379) CHLORIDE (BEAKER) 110 meq/L 98-107 H (test code = 382) CO2 (BEAKER) (test 21 meq/L 22-29 L code = 355) BLOOD UREA NITROGEN 12 mg/dL 7-21 (BEAKER) (test code = 354) CREATININE (BEAKER) 0.84 mg/dL 0.57-1.25 (test code = 358) GLUCOSE RANDOM 113 mg/dL 70-105 H (BEAKER) (test code = 652) CALCIUM (BEAKER) 8.9 mg/dL 8.4-10.2 (test code = 697) AST (SGOT) (BEAKER) 345 U/L 5-34 H (test code = 353) ALT (SGPT) (BEAKER) 287 U/L 6-55 H (test code = 347) EGFR (BEAKER) (test 70 mL/min/1.73 ESTIMA WEN GFR IS code = 1092) sq m NOT ACCURATE CREATININE CLEARANCE IN PREDICTING GLOMERULAR FILTRATION RATE . ESTIMATED GFR I S NOT APPLICABLE FOR DIALYSIS PATIEN TS. CBC W/PLT COUNT & AUTO [id number] 11:16:00 Test Item Value Reference Range Interpretation Comments WHITE BLOOD CELL COUNT (BEAKER) 6.6 K/ L 3.5-10.5 (test code = 775) RED BLOOD CELL COUNT (BEAKER) 3.79 M/ L 3.93-5.22 L (test code = 761) HEMOGLOBIN (BEAKER) (test code = 11.0 GM/DL 11.2-15.7 L 410) HEMATOCRIT (BEAKER) (test code = 34.3 % 34.1-44.9 411) MEAN CORPUSCULAR VOLUME (BEAKER) 90.5 fL 79.4-94.8 (test code = 753) MEAN CORPUSCULAR HEMOGLOBIN 29.0 pg 25.6-32.2 (BEAKER) (test code = 751) MEAN CORPUSCULAR HEMOGLOBIN CONC 32.1 GM/DL 32.2-35.5 L (BEAKER) (test code = 752) RED CELL DISTRIBUTION WIDTH 13.1 % 11.7-14.4 (BEAKER) (test code = 412) PLATELET COUNT (BEAKER) (test 389 K/CU MM 150-450 code = 756) MEAN PLATELET VOLUME (BEAKER) 9.0 fL 9.4-12.3 L (test code = 754) NUCLEATED RED BLOOD CELLS 0 /100 WBC 0-0 (BEAKER) (test code = 413) NEUTROPHILS RELATIVE PERCENT 79 % (BEAKER) (test code = 429) LYMPHOCYTES RELATIVE PERCENT 13 % (BEAKER) (test code = 430) MONOCYTES RELATIVE PERCENT 7 % (BEAKER) (test code = 431) EOSINOPHILS RELATIVE PERCENT 1 % (BEAKER) (test code = 432) BASOPHILS RELATIVE PERCENT 0 % (BEAKER) (test code = 437) NEUTROPHILS ABSOLUTE COUNT 5.21 K/ L 1.56-6.13 (BEAKER) (test code = 670) LYMPHOCYTES ABSOLUTE COUNT 0.87 K/ L 1.18-3.74 L (BEAKER) (test code = 414) MONOCYTES ABSOLUTE COUNT (BEAKER) 0.43 K/ L 0.24-0.36 H (test code = 415) EOSINOPHILS ABSOLUTE COUNT 0.08 K/ L 0.04-0.36 (BEAKER) (test code = 416) BASOPHILS ABSOLUTE COUNT (BEAKER) 0.01 K/ L 0.01-0.08 (test code = 417) IMMATURE GRANULOCYTES-RELATIVE 0 % 0-1 PERCENT (NISREEN) (test code = 2801)
--- OUTSIDE RECORDS SUMMARY | 2020-07-17 05:14 | XMS REPORT ---
:1965 Author Organization eClinicalWorks Care Team Providers Name Role Phone Lc Davin Provider Role Unavailable Allergies, Adverse Reactions, Alerts Substance Reaction Event Type Requip Info Not Available Drug Allergy Reglan Info Not Available Drug Allergy surgical tape Info Not Available Non Drug Allergy Problems Problem Type Condition Code Onset Dates Condition Statu s Assessment Adult BMI 27.0-27.9 kg/sq m Z68.27 Active Assessment Constipation, unspecified K59.00 Ac tive constipation type Assessment Fibromyalgia M79.7 Active Assessment Hemorrhoids, unspecified hemorrhoid K64.9 Active type Problem Migraine without aura and without G43.009 Active status migrainosus, not intractable Assessment GERD without esophagitis K21.9 Act dionna Problem Irritable bowel syndrome, K58.9 Ac tive unspecified type Assessment Nausea R11.0 Active Problem Bipolar disorder F31.9 Active Problem Back pain with left-sided M54.10 Ac tive radiculopathy Problem History of intussusception Z87.19 A ctive Problem Subclinical hypothyroidism E03.9 A ctive Problem Fibromyalgia M79.7 Active Assessment Depression with anxiety F41.8 Acti ve Assessment Back pain with left-sided M54.10 Ac tive radiculopathy Problem CKD (chronic kidney disease) stage N18.3 Active 3, GFR 30-59 ml/min Assessment Bipolar disorder F31.9 Active Problem Constipation, unspecified K59.00 Ac tive constipation type Problem Hemorrhoids, unspecified hemorrhoid K64.9 Active type Problem Nausea R11.0 Active Problem GERD without esophagitis K21.9 Act dionna Assessment Benign essential hypertension I10 Active Assessment Subclinical hypothyroidism E03.9 A ctive Assessment Migraine without aura and without G43.009 Active status migrainosus, not intractable Assessment CKD (chronic kidney disease) stage N18.3 Active 3, GFR 30-59 ml/min Problem Benign essential hypertension I10 Active Problem Depression with anxiety F41.8 Acti ve Problem Solitary cyst of left breast N60.02 Active Medications Medication Code Code Instructions Start End Status Dosage System Date Date Wellbutrin XL [facility] 17729975944 150 MG Orally Active 1 tablet Once a day in the morning Gabapentin [facility] 25372415174 600 MG Orally Active 1 t ablet Twice a day am and 2 tabs pm Tizanidine HCl ND 72367496446 4 MG Orally Active 1 tablet Once a day pRN bedtime Fluoxetine HCl ND 14504639761 60 MG Orally Active 1 capsule Once a day Promethazine-DM [facility] 56779547033 6.25-15 MG/5ML Activ e 5 ml as Orally every 6 needed hrs Nausea/Vo miting Geodon [facility] 86579421330 60 MG Orally Active 1 capsu le Twice a day with food Iron Supplement [facility] [address]-77 Active no t defined Amitiza [facility] 22817606286 24 MCG Orally Active 1 caps ule Twice a day with food HydrOXYzine HCl [facility] 42295738501 25 MG Orally Active 1 tablet Once a day Propranolol HCl [facility] 91461914119 10 MG Orally Active 1 tablet Twice a day on an empty stomach Gabapentin [facility] 68754256422 600 MG Active TAKE ONE TABLET BY MOUTH EVERY MORNING AND THEN TAKE TWO TABLETS BY MOUTH EVERY EVENING Vitamin D3 [facility] 84689163271 2000 UNIT Active 1 capsu le Orally Once a day Ziprasidone HCl [facility] 08971450166 60 MG Orally Active 1 capsule Twice a day with food baclofen NDC 0 10mg PO Once at Active 1 tab a s bedtime as needed needed for pain Clonazepam ND 10329963664 0.5 MG Orally Active 1 t ablet Once a day PRN at Anxiety bedtime Levothyroxine [facility] 81972949074 50 MCG Orally Active 1 tablet Sodium Once a day on an empty stomach in the morning Pantoprazole [facility] 82931506050 40 MG Orally Active 1 tablet Sodium Once a day Results No Known Results Summary Purpose eClinicalWorks Submission
[2020-07-17] MEDS ORDERED: HYDROCODONE/APAP 5/325 MG TAB ONE (05:54)
[2020-07-17] MEDS ORDERED: TETANUS & DIPHTHERIA TOX,ADULT 0.5 ML VIAL ONE (05:55)
[2020-07-17] MEDS ORDERED: LIDOCAINE 1% MPF 5 ML VIAL ONE (06:10)
--- NOTE | 2020-07-17 07:04 | ER ---
Nurse's Notes [facility] Name: Janice Bosch Age: 54 yrs Sex: Female : 1965 Arrival Date: 07/17/2020 Time: 05:11 Bed 4 Private MD: Diagnosis: Left Distal Radius and Ulna Fracture;Lip Laceration Presentation: 07/17 05:17 Chief complaint: Patient states: I was walking and tripped over this piece of wood i sg use to keep my dog out of the room, fell forward caught myself with my hands outstretched in from of me, pain and swelling in the left wrist with pain radiating up the left arm. pt reports laceration to lip as well, denies head injury or LOC for triage. Coronavirus screen: Client denies travel out of the [place] in the last 14 days. At this time, the client does not indicate any symptoms associated with coronavirus-19. Ebola Screen: Patient negative for fever greater than or equal to 101.5 degrees Fahrenheit, and additional compatible Ebola Virus Disease symptoms Patient denies exposure to infectious person. Patient denies travel to an Ebola-affected area in the 21 days before illness onset. No symptoms or risks identified at this time. Initial Sepsis Screen: Does the patient meet any 2 criteria? No. Patient's initial sepsis screen is negative. Does the patient have a suspected source of infection? No. Patient's initial sepsis screen is negative. Risk Assessment: Do you want to hurt yourself or someone else? Patient reports no desire to harm self or others. Onset of symptoms was July 17, 2020. Care prior to arrival: None. Mechanism of Injury: around 2300 last night. Transition of care: patient was not received from another setting of care. 05:17 Method Of Arrival: Ambulatory 05:17 Acuity: BONITA 3 sg Historical: - Allergies: 05:21 Reglan; sg 05:21 Requip; sg - Home Meds: 05:21 clonazepam 0.5 mg Oral tab [Active]; propranolol 10 mg Oral tab twice a day [Active]; sg Protonix 40 mg Oral TbEC once daily [Active]; Zanaflex 4 mg Oral tab 2 tabs nightly [Active]; ziprasidone HCl 60 mg Oral cap at bedtime [Active]; Prozac 40 mg Oral cap 1 cap once daily [Active]; - PMHx: 05:21 Bipolar disorder; bowel obstruction; Fibromyalgia; Hypertension; Migraines; sg - PSHx: 05:21 Cholecystectomy; ; Hysterectomy; Appendectomy; bowel obstructions; sg - Immunization history:: Adult Immunizations up to date. - Social history:: Smoking status: Patient denies any tobacco usage or history of. Screenin:25 Abuse screen: Denies threats or abuse. Denies injuries from another. Nutritional wh screening: No deficits noted. Tuberculosis screening: No symptoms or risk factors identified. Fall Risk Fall in past 12 months (25 points). Assessment: 05:25 General: Appears in no apparent distress. Behavior is calm, cooperative, appropriate wh for age. Pain: Complains of pain in left forearm Pain does not radiate. Pain: Pain currently is 7 out of 10 on a pain scale. Quality of pain is described as aching. Neuro: Level of Consciousness is awake, alert, obeys commands, Oriented to person, place, time, situation, Appropriate for age. Cardiovascular: Capillary refill < 3 seconds. Respiratory: Airway is patent Respiratory effort is even, unlabored, Respiratory pattern is regular, symmetrical. GI: Abdomen is flat, non-distended. : No signs and/or symptoms were reported regarding the genitourinary system. EENT: laceration in inner lower lip. Derm: Skin is intact, is healthy with good turgor, Skin is pink, warm \T\ dry. normal. Musculoskeletal: Circulation, motion, and sensation intact. 06:30 Reassessment: Patient appears in no apparent distress at this time. No changes from previously documented assessment. Patient and/or family updated on plan of care and expected duration. Pain level reassessed. Patient is alert, oriented x 3, equal unlabored respirations, skin warm/dry/pink. 07:40 Reassessment: pt up for discharge, pt reports pain is unchanged from PO medication, Dr. jame Soliman notified, received new medication orders for PO Zofran and morphine IM x 1. Vital Signs: 05:21 BP 134 / 77; Pulse 72; Resp 16; Pulse Ox 96% on R/A; Weight 70.31 kg; Height 5 ft. 5 sg in. (165.10 cm); Pain 8/10; 06:36 BP 157 / 83; Pulse 55; Resp 18; Pulse Ox 100% on R/A; wh 05:21 Body Mass Index 25.79 (70.31 kg, 165.10 cm) ED Course: 05:11 Patient arrived in ED. cl3 05:16 Marquis Fontenot MD is Attending Physician. mh7 05:19 Triage completed. sg 05:20 ice pack applied to left wrist and left forearm. sg 05:21 Arm band placed on. sg 05:25 Patient has correct armband on for positive identification. Bed in low position. Call light in reach. Side rails up X 1. Pulse ox on. NIBP on. 05:53 Julito Grider is Primary Nurse. 06:23 Assist provider with laceration repair on lower lip that was 2.5 cm. or less using sutures. Set up tray. Performed by Marquis Fontenot MD Patient tolerated well. 07:01 Primary Nurse role handed off by Julito Grider mw2 07:01 Israel Ellis MD is Referral Physician. 7 07:04 Orthoglass splint: Sugar tong splint applied on left arm. tt3 07:33 Zackary Ibarra, RN is Primary Nurse. em 07:53 Patient did not have IV access during this emergency room visit. em 10:01 Wrist Left (3 View) XRAY In Process Unspecified. EDMS 10:01 Forearm Left XRAY In Process Unspecified. EDMS Administered Medications: 05:54 Drug: Brick 5 mg-325 mg 1 tabs Route: PO; 06:23 Follow up: Response: No adverse reaction; Pain is decreased; RASS: Alert and Calm (0) 05:54 Drug: Tetanus-Diphtheria Toxoid Adult 0.5 ml {Countersinker Balance Screw Hole: [employer]. Exp: 11/22/2022. Lot #: [id number]. } Route: IM; Site: right deltoid; 06:23 Follow up: Response: No adverse reaction 06:23 Drug: Lidocaine (1 %) 1 application {Note: Administered by MD.} Volume: 5 ml; Route: wh Infiltration; 07:45 Drug: morphine 4 mg Route: IM; Site: right deltoid; em 07:52 Follow up: Response: Medication administered at discharge. em 07:45 Drug: Zofran (Ondansetron) 4 mg Route: PO; em 07:52 Follow up: Response: Medication administered at discharge. em Outcome: 07:03 Discharge ordered by . emily 07:53 Discharged to home via ambulance, with family. em 07:53 Condition: good 07:53 Discharge instructions given to patient, family, Instructed on discharge instructions, follow up and referral plans. medication usage, Demonstrated understanding of instructions, follow-up care, medications, splint care, Prescriptions given X 1. 07:54 Patient left the ED. em Signatures: Dispatcher [employer] Gabe Mccord RN RN Zackary Ibarra RN RN Julito Grider David Cedeno mw2 Wendy Storm cl3 Marquis Fontenot MD MD 7 Pineda Tripp tt3 Corrections: (The following items were deleted from the chart) 06:24 05:20 No provider procedures requiring assistance completed. [facility]
--- NOTE | 2020-07-17 07:05 | EDPHYS ---
Physician Documentation [facility] Name: Janice Bosch Age: 54 yrs Sex: Female : 1965 Arrival Date: 07/17/2020 Time: 05:11 Bed 4 Private MD: ED Physician Marquis Fontenot HPI: 07/17 06:37 This 54 yrs old Female presents to ER via Ambulatory with complaints of Fall mh7 Injury, Wrist Injury. 06:37 Details of fall: The patient fell from an upright position, while walking. Onset: The mh7 symptoms/episode began/occurred last night. Associated injuries: The patient sustained left wrist, painful injury, swelling, lower lip, laceration, 2 cm(s). Severity of symptoms: At their worst the symptoms were moderate, last night, in the emergency department the symptoms are unchanged. Patient states that she tripped and fell over a wooden object at home \T\ 11 PM. She denies any head injury or LOC. She denies any symptoms prior to falling. She sustained a laceration to her lower lip and left wrist injury.. Historical: - Allergies: 05:21 Reglan; sg 05:21 Requip; sg - Home Meds: 05:21 clonazepam 0.5 mg Oral tab [Active]; propranolol 10 mg Oral tab twice a day [Active]; sg Protonix 40 mg Oral TbEC once daily [Active]; Zanaflex 4 mg Oral tab 2 tabs nightly [Active]; ziprasidone HCl 60 mg Oral cap at bedtime [Active]; Prozac 40 mg Oral cap 1 cap once daily [Active]; - PMHx: 05:21 Bipolar disorder; bowel obstruction; Fibromyalgia; Hypertension; Migraines; sg - PSHx: 05:21 Cholecystectomy; ; Hysterectomy; Appendectomy; bowel obstructions; sg - Immunization history:: Adult Immunizations up to date. - Social history:: Smoking status: Patient denies any tobacco usage or history of. ROS: 06:37 Constitutional: Negative for fever, chills, and weight loss, Eyes: Negative for injury, mh7 pain, redness, and discharge, Neck: Negative for injury, pain, and swelling, Cardiovascular: Negative for chest pain, palpitations, and edema, Respiratory: Negative for shortness of breath, cough, wheezing, and pleuritic chest pain, Abdomen/GI: Negative for abdominal pain, nausea, vomiting, diarrhea, and constipation, Back: Negative for injury and pain, : Negative for injury, bleeding, discharge, and swelling, Neuro: Negative for headache, weakness, numbness, tingling, and seizure, Psych: Negative for depression, anxiety, suicide ideation, homicidal ideation, and hallucinations, Allergy/Immunology: Negative for hives, rash, and allergies, Endocrine: Negative for neck swelling, polydipsia, polyuria, polyphagia, and marked weight changes, Hematologic/Lymphatic: Negative for swollen nodes, abnormal bleeding, and unusual bruising. Exam: 06:37 Constitutional: This is a well developed, well nourished patient who is awake, alert, mh7 and in no acute distress. 06:37 Eyes: Pupils equal round and reactive to light, extra-ocular motions intact. Lids and lashes normal. Conjunctiva and sclera are non-icteric and not injected. Cornea within normal limits. Periorbital areas with no swelling, redness, or edema. ENT: Nares patent. No nasal discharge, no septal abnormalities noted. Tympanic membranes are normal and external auditory canals are clear. Oropharynx with no redness, swelling, or masses, exudates, or evidence of obstruction, uvula midline. Mucous membranes moist. Neck: Trachea midline, no thyromegaly or masses palpated, and no cervical lymphadenopathy. Supple, full range of motion without nuchal rigidity, or vertebral point tenderness. No Meningismus. Chest/axilla: Normal chest wall appearance and motion. Nontender with no deformity. No lesions are appreciated. Cardiovascular: Regular rate and rhythm with a normal S1 and S2. No gallops, murmurs, or rubs. Normal PMI, no JVD. No pulse deficits. Respiratory: Lungs have equal breath sounds bilaterally, clear to auscultation and percussion. No rales, rhonchi or wheezes noted. No increased work of breathing, no retractions or nasal flaring. Abdomen/GI: Soft, non-tender, with normal bowel sounds. No distension or tympany. No guarding or rebound. No evidence of tenderness throughout. Back: No spinal tenderness. No costovertebral tenderness. Full range of motion. Skin: Warm, dry with normal turgor. Normal color with no rashes, no lesions, and no evidence of cellulitis. 06:37 Neuro: Awake and alert, GCS 15, oriented to person, place, time, and situation. Cranial nerves II-XII grossly intact. Motor strength 5/5 in all extremities. Sensory grossly intact. Cerebellar exam normal. Normal gait. Psych: Awake, alert, with orientation to person, place and time. Behavior, mood, and affect are within normal limits. 06:37 Head/face: Noted is a laceration(s), that is superficial, 2 cm(s), of the lower lip. 06:37 Musculoskeletal/extremity: Extremities: noted in the left wrist, forearm: pain, swelling, tenderness, ROM: limited active range of motion, in the left arm, limited passive range of motion, in the left arm, limited active range of motion due to pain, in the left arm, limited passive range of motion due to pain, in the left arm, Circulation is intact in all extremities. Pulses: are normal with no appreciated deficits, Perfusion: the patient is normally perfused throughout, Perfusion: the extremity is normally perfused throughout, Sensation intact. Compartment Syndrome exam of affected extremity: is normal. no numbness, no tingling, no sensation deficit, no palor, no weak pulses, Joints: the left wrist displays limited range of motion, pain at rest, painful range of motion, swelling, tenderness, Weight bearing: able to fully bear weight, without difficulty, Tendon exam: specific tendon testing normal through active and passive range of motion Vital Signs: 05:21 BP 134 / 77; Pulse 72; Resp 16; Pulse Ox 96% on R/A; Weight 70.31 kg; Height 5 ft. 5 sg in. (165.10 cm); Pain 8/10; 06:36 BP 157 / 83; Pulse 55; Resp 18; Pulse Ox 100% on R/A; wh 05:21 Body Mass Index 25.79 (70.31 kg, 165.10 cm) sg Procedures: 06:59 Splinting: Splint applied to left forearm using Orthoglass splint, sling, applied by 7 tech. nurse. Examined by me, post splint application: neurovascular intact, 2+ distal pulses palpable, brisk capillary refill noted, Patient tolerated well. Laceration: 06:51 Wound Repair of 2cm ( 0.8in ) subcutaneous laceration to inner lower lip. Irregularly mh7 shaped.. Distal neuro/vascular/tendon intact. Anesthesia: Local anesthetic administered with 2 mls of 1% lidocaine. Wound prep: Extensive cleansing by me, Wound irrigation, Wound explored. Skin closed with 4 5-0 Fast Absorbing Gut using simple sutures and sterile technique. Patient tolerated well. MDM: 05:29 Patient medically screened. [facility] 06:59 Differential diagnosis: abrasion, contusion, fracture, laceration. Data reviewed: vital [facility] signs, nurses notes, radiologic studies, plain films. Data interpreted: Pulse oximetry: on room air is 100 %. Interpretation: normal. Counseling: I had a detailed discussion with the patient and/or guardian regarding: the historical points, exam findings, and any diagnostic results supporting the discharge/admit diagnosis, the presence of at least one elevated blood pressure reading (>120/80) during this emergency department visit, radiology results. Response to treatment: the patient's symptoms have markedly improved after treatment. 07/17 05:30 Order name: Wrist Left (3 View) XRAY [facility] 07/17 05:35 Order name: Forearm Left XRAY [facility] 07/17 05:55 Order name: Dressing - Wound; Complete Time: 05:58 07/17 05:55 Order name: Gloves, Sterile; Complete Time: 05:58 07/17 05:55 Order name: Setup Suture Tray; Complete Time: 05:58 07/17 06:48 Order name: Splint - Sugar Tong - Forearm; Complete Time: 07:29 [facility] 07/17 06:48 Order name: Sling; Complete Time: 07:29 7 Administered Medications: 05:54 Drug: [place] 5 mg-325 mg 1 tabs Route: PO; 06:23 Follow up: Response: No adverse reaction; Pain is decreased; RASS: Alert and Calm (0) 05:54 Drug: Tetanus-Diphtheria Toxoid Adult 0.5 ml {Return Clerk: Hey, Neighbor!. Exp: 11/22/2022. Lot #: [id number]. } Route: IM; Site: right deltoid; 06:23 Follow up: Response: No adverse reaction 06:23 Drug: Lidocaine (1 %) 1 application {Note: Administered by MD.} Volume: 5 ml; Route: wh Infiltration; 07:45 Drug: morphine 4 mg Route: IM; Site: right deltoid; em 07:52 Follow up: Response: Medication administered at discharge. em 07:45 Drug: Zofran (Ondansetron) 4 mg Route: PO; em 07:52 Follow up: Response: Medication administered at discharge. em Disposition: 07/17/20 07:03 Discharged to Home. Impression: Left Distal Radius and Ulna Fracture, Lip Laceration. - Condition is Stable. - Discharge Instructions: Wrist Fracture Treated With Immobilization, [id number], Facial Laceration, [id number]. - Prescriptions for Tylenol- Codeine #3 300-30 mg Oral Tablet - take 2 tablet by ORAL route every 6 hours As needed; 30 tablet. - Medication Reconciliation Form, Thank You Letter, Antibiotic Education, Prescription Opioid Use form. - Follow up: Private Physician; When: 1 - 2 days; Reason: Worsening of condition, Recheck today's complaints, Continuance of care, Re-evaluation by your physician. Follow up: Israel Ellis MD; When: 2 - 3 days; Reason: Worsening of condition, Recheck today's complaints, Continuance of care. - Problem is new. - Symptoms have improved. Signatures: Dispatcher [employer] EDGabe Elena RN RN Zackary Ibarra RN RN Julito Grider Maurice, MD MD mh7 Corrections: (The following items were deleted from the chart) 07:54 07:03 07/17/2020 07:03 Discharged to Home. Impression: Left Distal Radius and Ulna em Fracture; Lip Laceration. Condition is Stable. Forms are Medication Reconciliation Form, Thank You Letter, Antibiotic Education, Prescription Opioid Use. Follow up: Private Physician; When: 1 - 2 days; Reason: Worsening of condition, Recheck today's complaints, Continuance of care, Re-evaluation by your physician. Follow up: Dr. Israel Ellsi; When: 2 - 3 days; Reason: Worsening of condition, Recheck today's complaints, Continuance of care. Problem is new. Symptoms have improved. mh7
[2020-07-17] MEDS ORDERED: MORPHINE 4 MG/ML SYR ONE (07:58)
[2020-07-17] MEDS ORDERED: ONDANSETRON 4 MG (ODT) TAB ONE (07:58)
[2020-07-17 08:01] VITALS: BP 157/83; O2SAT 100
--- NOTE | 2020-07-17 15:05 | RAD REPORT ---
EXAM DESCRIPTION: XR Left Forearm, 2 Views CLINICAL HISTORY: Trauma TECHNIQUE: Frontal and lateral views of the left forearm. COMPARISON: No relevant prior studies available. FINDINGS: Bones/joints: There is a mildly impacted fracture of the radial metaphysis which is disp laced radial and posterior by slightly greater than one cortex width. There is dorsal tilt. There is probable dorsal intra-articular component. There is similar fracture of the adjacent ulnar meta physis. Trabecular pattern and cortical surfaces of the scaphoid are intact. There is mild spurring of the 1st carpometacarpal joint. No dislocation. Soft tissues: Periarticular soft tissue swelling noted. IMPRESSION: Acute fractures of the distal left radius and ulna as above. Electronically signed by: Nelia Manjarrez MD 07/17/2020 6:28 AM CDT Due to temporary technical issues with the PACS/Fluency reporting system, reports are being signed by the in house radiologist without review as a courtesy to ensure prompt reporting. The interpreting r adiologist is fully responsible for the content of the report.
--- NOTE | 2020-07-17 15:06 | RAD REPORT ---
EXAM DESCRIPTION: XR Left Wrist Complete, 3 Views CLINICAL HISTORY: Trauma TECHNIQUE: Frontal, lateral and oblique views of the left wrist. COMPARISON: No relevant prior studies available. FINDINGS: Bones/joints: There is an acute intra-articular fracture of the distal radius with dorsa l tilt and impaction. Similar fracture of the adjacent ulna noted. There is fracture also of the ulnar styloid. Trabecular pattern and cortical surfaces of the scaphoid are intact. There is mild spurring of the 1st carpometacarpal joint. No dislocation. Soft tissues: Periarticular soft tissue swelling present. No radiopaque foreign body. IMPRESSION: There are acute fractures of the left distal radius and ulna. Electronically signed by: Nelia Manjarrez MD 07/17/2020 6:30 AM CDT Due to temporary technical issues with the PACS/Fluency reporting system, reports are being signed by the in house radiologist without review as a courtesy to ensure prompt reporting. The interpreting r adiologist is fully responsible for the content of the report.
== END 2020-07-17 07:54 | disposition home or self-care (01) ==
LOC: ER 05:09
PROC: 0CQ1XZZ Repair Lower Lip, External Approach (ICD-10-PCS; principal; 2020-07-17)
PROC: 2W3DX1Z Immobilization of Left Lower Arm using Splint (ICD-10-PCS; 2020-07-17)
DX: S52.502A Unspecified fracture of the lower end of left radius, initial encounter for closed fracture (principal); S52.602A Unspecified fracture of lower end of left ulna, initial encounter for closed fracture; W18.09XA Striking against other object with subsequent fall, initial encounter; Y93.01 Activity, walking, marching and hiking; Y92.009 Unspecified place in unspecified non-institutional (private) residence as the place of occurrence of the external cause; Z23 Encounter for immunization; Z88.8 Allergy status to other drugs, medicaments and biological substances; I10 Essential (primary) hypertension; F31.9 Bipolar disorder, unspecified
CPT/HCPCS: 90471; 90714; 96372; 99284

== ENCOUNTER 2020-07-25 07:00 | Day surgery (SDC) | payer OTHER ==
[2020-07-21 16:59] LABS: Absolute Lymphocytes (CBC) 1.3 K/uL (0.7-4.9); Basophils % 0.4 % (0-1.3); Hematocrit 38.4 % (36.0-45.0); Lymphocytes % 25.8 % (15.3-44.8); MPV 7.9 fL (7.6-11.3); Protime INR 1.01; RBC Red Blood Cell Count 4.26 M/uL (3.86-4.86)
--- NOTE | 2020-07-21 17:22 | RAD REPORT ---
EXAM DESCRIPTION: RAD - Chest Pa And Lat (2 Views) - 07/21/2020 5:08 pm CLINICAL HISTORY: pre op, patient pending left wrist open reduction internal fixation surgery COMPARISON: Portable October 2018 TECHNIQUE: Frontal and lateral views of the chest were obtained. FINDINGS: The lungs are clear. Interstitial pattern matches comparison. Heart size is normal and ce ntral vasculature is within normal limits. No pleural effusion or pneumothorax seen. No acute bony finding noted. No aortic abnormality. IMPRESSION: No acute cardiopulmonary process. No significant change from comparison.
[2020-07-21 17:31] LABS: Potassium 4.1 mmol/L (3.5-5.1)
--- NOTE | 2020-07-23 11:31 | EKG ---
Test Date: 2020-07-21 Test Time: 16:29:28 [employer]: TG MEASUREMENT RESULTS: Intervals: Rate: 65 CO: 144 QRSD: 82 QT: 454 QTc: 472 [place]: P: 50 CO: 144 QRS: -31 T: 7 INTERPRETIVE STATEMENTS: Normal sinus rhythm Possible Left atrial enlargement Left axis deviation Left ventricular hypertrophy Nonspecific ST and T wave abnormality Abnormal ECG Compared to ECG 12/19/2019 15:46:07 Left ventricular hypertrophy now present ST (T wave) deviation now present Electronically Signed On 07-23-20 11:27:27 CDT by Guillermo Concepcion
--- OUTSIDE RECORDS SUMMARY | 2020-07-25 07:06 | XMS REPORT | Clinical Summary ---
:1965 Author Organization [facility] Address [address] [place] [address] Care Team Providers Name Role Phone Pcp [...] Not on file Implants Implanted Type Area Post Production Assistant Device Identifier Shelf Model / Expiration Serial / Date Lot Memb Seprafilm Luis F Ramos 5x6 [id number] - [id number] IMPLANTS N/A : GENZYME DEBORAH: [id number] / Implanted: Qty: 1 on 06/25/2019 by Kendall Cruz MD at [facility] Abdomen BIO-SURG / [id number] Results Not on fileafter 07/25/2019 Insurance Payer Benefit Plan / Subscriber ID Effective Phone Address T ype Group Dates CIGNA CIGNA [id number] 2019-Pr Maps [facility] [employer] esent Contracted Advance Directives For more information, please contact: [phone] Code Status Date Activated Date Inactivated Comments Full Code 06/25/2019 10:39 PM 07/03/2019 3:54 PM This code status was determined by: Patient Full Code 06/25/2019 6:16 AM 06/25/2019 10:39 PM This code status was determined by: Patient
--- OUTSIDE RECORDS SUMMARY | 2020-07-25 07:08 | XMS REPORT ---
:1965 Author Organization [facility] Address [address] [place] [place] [address] Care Team Providers Name Role Phone Platt Unavailable [phone] PROBLEMS Type Condition ICD9-CM [id number] Onset Condition SNOMED Code Notes Code Code Dates Status Problem Benign essential I10 Active 7916897 hypertension Problem Solitary cyst of N60.02 Active 160267406 left breast Problem Migraine without G43.009 Active 043808555 aura and without status migrainosus, not intractable Problem Depression with F41.8 Active 666191834 anxiety Problem History of Z87.19 Active 373977624 intussusception Problem Back pain with M54.10 Active 142521994 left-sided radiculopathy Problem Hemorrhoids, K64.9 Active 21942889 unspecified hemorrhoid type Problem Subclinical E03.9 Active 83101510 hypothyroidism Problem Bipolar disorder F31.9 Active 83907385 Problem CKD (chronic N18.3 Active 795034031 kidney disease) stage 3, GFR 30-59 ml/min Problem Irritable bowel K58.9 Active 18674801 syndrome, unspecified type Problem Constipation, K59.00 Active 19418130 unspecified constipation type Problem GERD without K21.9 Active 905868805 esophagitis Problem Nausea R11.0 Active 448176137 Problem Fibromyalgia M79.7 Active 453234307 ALLERGIES Allergen (clinical drug Drug/Non Drug Reaction Allergy Type Onset D ate Status ingredient) Allergy documented on EMR surgical tape Unknown Non Drug Allergy Activ e metoclopramide Reglan(NDC Unknown Drug Allergy Active Code:[address]-50) Requip Unknown Drug Allergy Active ENCOUNTERS from 1965 to 2020-07-21 Encounter Location Date Provider Diagnosis [facility] [address], [facility] [place] [address] IMMUNIZATIONS No Information SOCIAL HISTORY Tobacco Use: Social History Observation Description Date Details (start date - stop date) Never Smoker Sex Assigned At : Social History Observation Description Sex Assigned At Unknown PHQ9 Question Answer Notes Little interest or pleasure in doing things Several days Feeling down, depressed, or hopeless Several days Trouble falling or staying asleep or sleeping too much Sever al days Feeling tired or having little energy Several days Poor appetite or overeating Not at all Feeling bad about yourself, or that you are a failure, or nicholas ve Not at all let yourself or your family down Trouble concentrating on things, such as reading the newspap er Not at all or watching television Moving or speaking so slowly that other people could have Se veral days noticed; or the opposite, being so fidgety or restless that you have been moving around a lot more than usual Total Score 5 Interpretation Mild Depression Thoughts that you would be better off or of hurting Not at all yourself in some way Alcohol Screen Question Answer Notes Did you have a drink containing alcohol in the past Yes year? Points 1 Interpretation Negative How often did you have a drink containing alcohol in Monthly or less (1 point) the past year? Tobacco Use/Smoking Question Answer Notes Are you a never smoker Additional Findings: Tobacco Non-User Current non-smoker REASON FOR REFERRAL No Information VITAL SIGNS No information MEDICATIONS Medication SIG (Take, Route, Start Date End Date Status Frequency, Duration) Pantoprazole Sodium 40 MG 1 tablet Orally Once a day Active for 30 days Vitamin D3 2000 UNIT 1 capsule Orally Once a Active day HydrOXYzine HCl 25 MG 1 tablet Orally Once a day Active baclofen 10mg 1 tab as needed for pain Ac tive PO Once at bedtime as needed Propranolol HCl 10 MG 1 tablet on an empty Active stomach Orally Twice a day for 30 days Levothyroxine Sodium 50 MCG 1 tablet on an empty Active stomach in the morning Orally Once a day for 30 day(s) Tramadol HCl 50 MG 1 tablet Orally Q6H PRN Jul, Active PAIN Amitiza 24 MCG 1 capsule with food Orally Active Twice a day for 30 day(s) Tramadol HCl 50 MG 1 tablet as needed Orally Jul, Active Once a day PRN Severe pain Clonazepam 0.5 MG 1 tablet at bedtime Orally Active Once a day PRN Anxiety for 30 days Promethazine-DM 6.25-15 MG/5ML 5 ml as needed Active Nausea/Vomiting Orally every 6 hrs Fluoxetine HCl 60 MG 1 capsule Orally Once a Active day Gabapentin 600 MG TAKE ONE TABLET BY MOUTH Active EVERY MORNING AND THEN TAKE TWO TABLETS BY MOUTH EVERY EVENING for 30 Iron Supplement Active Ziprasidone HCl 60 MG 1 capsule with food Orally Active Twice a day for 30 day(s) Tizanidine HCl 4 MG 1 tablet Orally Once a day Active pRN bedtime for 30 days Wellbutrin XL 150 MG 1 tablet in the morning Active Orally Once a day Geodon 60 MG 1 capsule with food Orally A ctive Twice a day for 30 days Gabapentin 600 MG 1 tablet am and 2 tabs pm Active Orally Twice a day for 30 days PROCEDURES No Information RESULTS No Results REASON FOR VISIT PCP CLEARANCE REQUEST MEDICAL (GENERAL) HISTORY Type Description Date Medical History Migraine without aura and without status migrainosus, not intractable Medical History Depression with anxiety Medical History Irritable bowel syndrome, unspecified ty pe Medical History Bipolar disorder Medical History Gastroesophageal reflux disease without esophagitis Medical History Solitary cyst of left breast Medical History Benign essential hypertension Medical History History of intussusception Medical History Back pain with left-sided radiculopathy Surgical History section x2 Surgical History appendectomy Surgical History hysterectomy Surgical History gastric bypass Surgical History cholecystectomy Surgical History Feeding tube x 6 mo Surgical History Intussusception Surgical History pinched nerve/bulged disk lumbar Surgical History Bowel Obstruction 06/26/19 Hospitalization History Bowel obstruction 06/2019 Goals Section No Information Health Concerns No Information MEDICAL EQUIPMENT No Information MENTAL STATUS No Information FUNCTIONAL STATUS No Information ASSESSMENTS No Information PLAN OF TREATMENT Medication Medication Name Sig Start Date Stop Date Tramadol HCl 50 MG 1 tablet Orally Q6H PRN PAIN Jul, Next Appt Details Provider Name:Israel Ellis, 2020-08-07 0 1:30:00 PM, [address], [place], [address], Provider Name:Davin Platt, 2020-08-13 0 8:15:00 AM, [address], [place], [address], Insurance Providers Payer Name Payer Payer Insured Patient Coverage Coverage End Address Phone Name Relationship to Start Date Clyde e Insured [employer] [phone] Isreal Bosch self [facility] [id number] [phone] [place] Replace [phone]
--- OUTSIDE RECORDS SUMMARY | 2020-07-25 07:08 | XMS REPORT ---
:1965 Author Organization [facility] Address [address] [place] [place] [address] Care Team Providers Name Role Phone Platt Unavailable [phone] PROBLEMS Type Condition ICD9-CM [id number] Onset Condition SNOMED Code Notes Code Code Dates Status Problem Benign essential I10 Active 7547722 hypertension Problem Solitary cyst of N60.02 Active 076410680 left breast Problem Migraine without G43.009 Active 053429422 aura and without status migrainosus, not intractable Problem Depression with F41.8 Active 584534103 anxiety Problem History of Z87.19 Active 388329301 intussusception Problem Back pain with M54.10 Active 394740059 left-sided radiculopathy Problem Hemorrhoids, K64.9 Active 33420475 unspecified hemorrhoid type Problem Subclinical E03.9 Active 84837905 hypothyroidism Problem Bipolar disorder F31.9 Active 87669318 Problem CKD (chronic N18.3 Active 932594616 kidney disease) stage 3, GFR 30-59 ml/min Problem Irritable bowel K58.9 Active 39327754 syndrome, unspecified type Problem Constipation, K59.00 Active 42965959 unspecified constipation type Problem GERD without K21.9 Active 134997474 esophagitis Problem Nausea R11.0 Active 427082549 Problem Fibromyalgia M79.7 Active 005503580 ALLERGIES Allergen (clinical drug Drug/Non Drug Reaction Allergy Type Onset D ate Status ingredient) Allergy documented on EMR surgical tape Unknown Non Drug Allergy Activ e metoclopramide Reglan(NDC Unknown Drug Allergy Active Code:[address]-79) Requip Unknown Drug Allergy Active ENCOUNTERS from 1965 to 2020-07-21 Encounter Location Date Provider Diagnosis [facility] Josie Rasmussen [address], [place] [address] IMMUNIZATIONS No Information SOCIAL HISTORY Tobacco Use: [...] Information RESULTS No Results REASON FOR VISIT Rx tramadol. pain med for fx MEDICAL (GENERAL) HISTORY Type Description Date Medical [...] PM, [address], [place], [address], Provider Name:Davin Bennettdoni 2020-08-13 0 8:15:00 AM, [address], [place], [address], Insurance Providers Payer Name Payer Payer Insured Patient Coverage Coverage End Address Phone Name Relationship to Start Date Clyde e Insured [employer] [phone] Isreal Bosch self [address] [facility] [id number] [phone] [place] Replace [phone]
--- OUTSIDE RECORDS SUMMARY | 2020-07-25 07:08 | XMS REPORT | Continuity of Care Document ---
:1965 Author Organization [facility] t Address [address] [place] [address] Care Team Providers Name Role Phone Pcp Primary Care Physician Unavailable Steven KIMBROUGH Attending Clinician Clive CONNOLLY Attending Clinician Unavailable Mo BOBBY [...] 06-25 [facility] Allergies, Adverse Reactions, Alerts Allergy Allergy Status Severity Reaction(s) Onset Inactive Treating Comm ents Source Name Type Date Date Clinician Metoclop Propensi Active [facility] H[facility] adverse 00:00: Medical reaction 00 Center s Ropiniro Propensi Active [facility] le ty to 06-25 [facility] - adverse 00:00: Medical reaction 00 Center s Reglan Adverse Active Info Not [facility] Reaction Available [facility] surgical Adverse Active Info Not [facility] tape Reaction Available [facility] Requip Adverse Active Info Not [facility] Reaction Available [facility] Social History Social Habit Start Date Stop Date Quantity Comments Source History SDOH [facility] Alcohol Std Drinks Medica l Center History [facility] - Alcohol Binge Medical Bruna ter Sex Assigned At [facility] marisol - [facility] Center Tobacco use and 2019-06-27 2019-06-27 Never used [facility] L[facility]pez kes - exposure 00:00:00 00:00:00 [facility] Alcohol intake 2019-06-27 2019-06-[address] [facility]00 non-drinker of Medical Ce nter alcohol (finding) History SDOH 2019-06-25 2019-06-[address] [facility] - Alcohol Frequency 00:00:00 00:00:00 [facility] Center Smoking Status Start Date Stop Date Source Never smoker [facility] kes - M edical Center Medications Ordered Filled Start Stop Current Ordering Indication Dosage Frequency Signature Comments Components Source Medication Medication Date Date Medication? Clinician (SIG) Name Name clonazePAM 2018-10 Yes .5mg Take 0.[address] [facility] (KLONOPIN) 0-01 mg by [facility] - 0.5 MG 13:54: mouth 2 Medical tablet 24 (two) Center times daily as needed for Anxiety. gabapentin 2018-10 Yes 600mg [id number] Take [address] (NEURONTIN) 0-01 [id number] mg by L ukes - 600 MG [...] mouth Medica l 24 hr 24 daily. [place] tablet levothyroxi 2018-10 Yes 50ug Take [address] [facility] [facility] ne 0-01 mcg by [facility] - (SYNTHROID, 13:54: mouth Medic al LEVOTHROID) 24 Every Center 50 MCG morning on tablet an empty stomach. hydrOXYzine 2018-10 Yes 50mg Take [address] (VISTARIL) 0-01 by mouth [facility] - 50 MG 13:54: once at Medical capsule 24 bedtime. [place] lidocaine 2018-10 2019- No 1{patch Q24H Place [address] (LIDODERM) 0-08-02 } patch onto Maribel kes - 5 % patch 00:00: 23:59 the skin Med ical 00 :00 daily for Center 30 days Remove & Discard patch within 12 hours or as directed by . Amitiza Amitiza Yes Davin [address] [facility] with food [facility] Pantoprazol Pantoprazol Yes Davin [address] [facility] e Sodium e Sodium Platt [facility] Propranolol Propranolol Yes Davin [address] [address] HCl HCl [place]att on an [facility] - empty Memoria stomach l Outpati ent Clinics Vitamin D3 Vitamin D3 Yes Davin [address] [facility] Levothyroxi Levothyroxi Yes Davin [address] [facility] ne Sodium ne Sodium Platt on an Jg es - empty Memoria stomach in l the Outpati morning ent Clinics Promethazin Promethazin Yes Davin [address] [facility] e-DM e-DM [facility]att needed [facility] - Nausea/Vom Memoria iting l Outpati ent Clinics Clonazepam Clonazepam Yes Davin [address] [facility] at bedtime [facility] Geodon Geodon Yes Davin [address] [facility] with food [facility] baclofen baclofen Yes Davin 1 tab [address] [facility] needed for [facility] pain [facility] Iron Iron Yes Davin not [facility] Supplement Supplement [facility] defined [facility] Ziprasidone Ziprasidone Yes Davin [address] HCl HCl [facility]att with food [facility] Tizanidine Tizanidine Yes Davin [address] HCl HCl Platt [facility]ics HydrOXYzine HydrOXYzine Yes Davin [address] [address] HCl HCl Platt [facility]ics Gabapentin Gabapentin Yes Davin [address] [facility] Platt am and 2 [facility] - tabs pm [facility] Outpat[facility] ent Clinics Gabapentin Gabapentin Yes Davin TAKE ONE [facility] TABLET BY [facility] - MOUTH Memoria EVERY l MORNING Outpati AND THEN ent TAKE TWO Clinics TABLETS BY MOUTH EVERY EVENING Wellbutrin Wellbutrin Yes Davin [address] [facility] XL XL [facility]att in the [facility] - morning [facility] Outpati ent Clinics Fluoxetine Fluoxetine Yes Davin [address] HCl HCl Platt [facility] ent Clinics Procedures This patient has no known procedures. Encounters Start End Encounter Admission Attending Care Care Encounter Source Date/Time Date/Time Type Type Clinicians Facility Department ID 2020-07-24 2020-07-24 [id number] 2020-07-21 2020-07-21 [facility] [id number] [facility] 2020-07-18 2020-07-18 [facility] [id number] [facility] 2020-07-17 2020-07-17 [facility] [id number] 2020-05-15 2020-05-15 [facility] [id number] [address] 14:15:00 14:15:00 [facility] Medicine l Medicine Outpati ent Clinics 2020-04-09 2020-04-09 [facility] [id number] 08:55:00 08:55:[address] [facility] Medicine Outpati ent Clinics 2020-04-07 2020-04-07 [facility] [id number] 10:34:00 10:34:[address] [facility] Medicine Outpati ent Clinics 2020-02-13 2020-02-13 [facility] [id number] 15:00:00 15:00:[address] [facility] Medicine Outpati ent Clinics 2020-02-13 2020-02-13 [facility] [id number] 15:00:00 15:00:[address] [facility] Medicine Outpati ent Clinics 2020-02-08 2020-02-08 [facility] [id number] 08:47:00 08:47:[address] [facility] Medicine Outpati ent Clinics 2019-11-19 2019-11-19 [facility] [id number] 13:00:00 13:00:[address] [facility] Medicine Outpati ent Clinics 2019-11-12 2019-11-12 [facility] [id number] 08:28:00 08:28:[address] [facility] Medicine Outpati ent Clinics 2019-09-11 2019-09-11 [facility] [id number] 13:30:00 13:30:00 t [facility] 2019-08-16 2019-08-16 [facility] [id number] 13:15:00 13:15:00 t [facility] Outpat[facility] ent Clinics 2019-07-31 2019-07-31 [facility] [id number] 10:00:00 10:00:00 t [facility] 2019-07-30 2019-07-30 [facility] [id number] 14:13:00 14:13:00 t [facility] 2019-07-27 2019-07-27 [facility] [id number] 08:51:00 08:51:00 t [facility] 2019-07-10 2019-07-10 [facility] [id number] 10:00:00 10:00:00 t [facility] 2019-07-10 2019-07-10 [facility] [id number] 08:30:00 08:30:00 t [facility] [place] 2019-07-09 2019-07-09 [facility] [id number] 10:47:00 10:47:00 t [facility] [place] 2019-07-06 2019-07-06 Office Steven [facility] [id number] 13:15:43 13:45:43 Visit Zenaida AMBULATOR [id number] 2019-06-20 2019-06-20 [facility] [id number] 13:30:00 13:30:00 t [facility] 2019-06-20 2019-06-20 [facility] [id number] 08:49:00 08:49:00 t [facility] [place] 2019-06-18 2019-06-18 [facility] [id number] 08:30:00 08:30:00 t [facility] [place] 2019-05-21 2019-05-21 [facility] [id number] 13:55:00 13:55:00 [place] [employer] Luke s - [facility] Medicine l Medicine Outpati ent Clinics 2019-05-18 2019-05-18 [facility] [id number] 14:40:00 14:40:00 [place] [employer] Luke s - Drive [facility] l Medicine Outpati ent Clinics 2019-05-17 2019-05-17 [facility] [id number] 14:00:00 14:00:00 [place] [employer] Luke s - Drive [facility] Medicine l Medicine Outpati ent Clinics 2019-02-08 2019-02-08 [facility] [id number] 16:40:00 16:40:00 [place] [employer] - [facility] l Medicine Outpati ent Clinics 2019-02-06 2019-02-06 [facility] [id number] 16:30:00 16:30:00 [place] [employer] s - Drive [facility] l Medicine Outpati ent Clinics 2019-01-30 2019-01-30 [facility] [id number] 11:28:00 11:28:00 [place] [employer] [place] - [facility] l Medicine Outpati ent Clinics 2019-01-25 2019-01-25 [facility] [id number] 14:30:00 14:30:00 [place] [employer] [place] - [facility] l Medicine Outpati ent Clinics 2018-12-07 2018-12-07 [facility] [id number] 14:30:00 14:30:00 [place] [employer] s - Drive [facility] Medicine l Medicine Outpati ent Clinics 2018-12-05 2018-12-05 [facility] [id number] 15:15:00 15:15:00 t Specialty/U Maribel kes - Specialty rology [facility]rology [facility] l Clinic Outpati ent Clinics 2018-11-08 2018-11-08 [facility] [id number] 13:25:00 13:25:00 [place] [employer] s - Drive [facility] Medicine l Medicine Outpati ent Clinics 2018-11-01 2018-11-01 [facility] [id number] 13:15:00 13:15:00 t [place] [employer] - [employer] [facility] Outpati ent Clinics 2018-10-27 2018-10-27 [facility] [id number] 12:16:00 12:16:00 t [place] [employer] - [employer] [facility] Outpati ent Clinics 2018-10-26 2018-10-26 [facility] [id number] 15:10:00 15:10:00 t Specialty/U Maribel kes - Specialty rology Memori a /Urology Clinic l Clinic Outpati ent Clinics 2018-10-26 2018-10-26 [facility] [id number] 13:45:00 13:45:00 t Specialty/U Maribel kes - Specialty rology Memori a /Urology Clinic l Clinic Outpati ent Clinics 2018-10-09 2018-10-09 [facility] [id number] 10:45:00 10:45:00 t [employer] - [employer] EQUIPMENT [facility] Medicine Outpati ent Clinics 2018-09-13 2018-09-13 [facility] [id number] 09:40:00 09:40:00 t [email or web address] [facility] Outpati ent Clinics 2018-09-11 2018-09-11 [facility] [id number] 14:30:00 14:30:00 t [email or web address] [facility] Outpati ent Clinics Results Test Description Test Time Test Comments Results Result Comments Source LIPASE 2019-07-03 06:29:00 Test Item Value Reference Range Interpretation Comme nts LIPASE (BEAKER) (test code = 749) 48 U/L 8-78 COMPREHENSIVE METABOLIC [id number] 06:29:00 Test Item Value Reference Range Interpretation [...] PATIEN TS. CBC W/PLT COUNT & AUTO [id number] 05:57:00 Test Item Value Reference Range Interpretation [...] 413) RAD, ABDOMEN SERIES W/ UPRIGHT PA [id number] 13:35:00Reason for exam:- >Postoperative distentionShould this be [...] MDReport Verified Date/Time: 07/02/2019 13:35:05 Reading Location: [facility] Radiology Reading Room [id number] 06:54:00 Test Item Value Reference Range Interpretation Comments LIPASE (BEAKER) (test code = 749) 56 U/L 8-78 COMPREHENSIVE METABOLIC [id number] 06:54:00 Test Item Value Reference Range Interpretation [...] PATIEN TS. CBC W/PLT COUNT & AUTO [id number] 06:31:00 Test Item Value Reference Range Interpretation [...] = 2801) CBC W/PLT COUNT & AUTO [id number] 06:59:00 Test Item Value Reference Range Interpretation [...] 0-1 PERCENT (BEAKER) (test code = 2801) [id number] 06:51:00 Test Item Value Reference Range Interpretation Comments LIPASE (BEAKER) (test code = 749) 53 U/L 8-78 COMPREHENSIVE METABOLIC [id number] 06:51:00 Test Item Value Reference Range Interpretation [...] PATIEN TS. CBC W/PLT COUNT & AUTO [id number] 06:20:00 Test Item Value Reference Range Interpretation [...] GRANULOCYTES-RELATIVE PERCENT (BEAKER) (test code = 2801) [id number] 05:44:00 Test Item Value Reference Range Interpretation Comments LIPASE (BEAKER) (test code = 749) 52 U/L 8-78 COMPREHENSIVE METABOLIC [id number] 05:44:00 Test Item Value Reference Range Interpretation [...] S NOT APPLICABLE FOR DIALYSIS PATIEN TS. [id number] 05:21:00 Test Item Value Reference Range Interpretation Comments LIPASE (BEAKER) (test code = 749) 72 U/L 8-78 COMPREHENSIVE METABOLIC [id number] 05:21:00 Test Item Value Reference Range Interpretation [...] PATIEN TS. CBC W/PLT COUNT & AUTO [id number] 05:14:00 Test Item Value Reference Range Interpretation [...] 0-1 PERCENT (BEAKER) (test code = 2801) [id number] 05:17:00 Test Item Value Reference Range Interpretation Comments LIPASE (BEAKER) (test code = 749) 55 U/L 8-78 COMPREHENSIVE METABOLIC [id number] 05:17:00 Test Item Value Reference Range Interpretation [...] PATIEN TS. CBC W/PLT COUNT & AUTO [id number] 04:59:00 Test Item Value Reference Range Interpretation [...] WBC 0-0 (BEAKER) (test code = 413) [id number] 07:03:00 Test Item Value Reference Range Interpretation Comments LIPASE (BEAKER) (test code = 749) 40 U/L 8-78 COMPREHENSIVE METABOLIC [id number] 07:03:00 Test Item Value Reference Range Interpretation [...] PATIEN TS. CBC W/PLT COUNT & AUTO [id number] 06:03:00 Test Item Value Reference Range Interpretation [...] 0-1 PERCENT (BEAKER) (test code = 2801) [id number] 07:19:00 Test Item Value Reference Range Interpretation Comments LIPASE (BEAKER) (test code = 749) 37 U/L 8-78 COMPREHENSIVE METABOLIC [id number] 07:19:00 Test Item Value Reference Range Interpretation [...] PATIEN TS. CBC W/PLT COUNT & AUTO [id number] 05:30:00 Test Item Value Reference Range Interpretation [...] (BEAKER) (test code = 2801) BASIC METABOLIC [id number] 20:44:00 Test Item Value Reference Range Interpretation [...] 0-0 (BEAKER) (test code = 413) PROTHROMBIN [id number] 15:49:00 Test Item Value Reference Range Interpretation [...] mechanical heart valves.RAD, CHEST, 1 VIEW, NON [id number] 15:13:00Reason for exam:->preopShould this be performed at the bedside?->YesFINAL REPORT INDICATION: preop COMPARISON: None TECHNIQUE: Single frontal view of the chest. FINDINGS: Lungs and pleura: Clear lungs. No effusion.Heart and mediastinum: Normal heart size. Unremarkable mediastinal contours.Osseous structures: No acute abnormality.Other: None. IMPRESSION: No acute intrathoracic abnormality. Signed: Melonie Fan Verified Date/Time: 06/25/2019 15:13:30 Reading Location: [facility] Radiology Reading Room [id number] 11:37:00 Test Item Value Reference Range Interpretation Comments LIPASE (BEAKER) (test code = 749) 168 U/L 8-78 H COMPREHENSIVE METABOLIC [id number] 11:37:00 Test Item Value Reference Range Interpretation [...] PATIEN TS. CBC W/PLT COUNT & AUTO [id number] 11:16:00 Test Item Value Reference Range Interpretation [...] % 0-1 PERCENT (BEAKER) (test code = 9611)
--- OUTSIDE RECORDS SUMMARY | 2020-07-25 07:08 | XMS REPORT ---
[...] Status Dosage System Date Date Wellbutrin XL [facility] 07104455259 150 MG Orally Active 1 tablet Once a day in the morning Gabapentin [facility] 94243846871 600 MG Orally Active 1 t ablet Twice a day am and 2 tabs pm Tizanidine HCl ND 62952766245 4 MG Orally Active 1 tablet Once a day pRN bedtime Fluoxetine HCl ND 24433551728 60 MG Orally Active 1 capsule Once a day Promethazine-DM [facility] 35901499951 6.25-15 MG/5ML Activ e 5 ml as Orally every 6 needed hrs Nausea/Vo miting Geodon [facility] 97094091262 60 MG Orally Active 1 capsu le Twice a day with food Iron Supplement [facility] [address]-32 Active no t defined Amitiza [facility] 74688464495 24 MCG Orally Active 1 caps ule Twice a day with food HydrOXYzine HCl [facility] 86263838994 25 MG Orally Active 1 tablet Once a day Propranolol HCl [facility] 83447302974 10 MG Orally Active 1 tablet Twice a day on an empty stomach Gabapentin [facility] 64536150471 600 MG Active TAKE ONE TABLET BY MOUTH EVERY MORNING AND THEN TAKE TWO TABLETS BY MOUTH EVERY EVENING Vitamin D3 [facility] 77880682736 2000 UNIT Active 1 capsu le Orally Once a day Ziprasidone HCl [facility] 34400072315 60 MG Orally Active 1 capsule Twice a day with food baclofen NDC 0 10mg PO Once at Active 1 tab a s bedtime as needed needed for pain Clonazepam ND 62594501500 0.5 MG Orally Active 1 t ablet Once a day PRN at Anxiety bedtime Levothyroxine [facility] 40017243180 50 MCG Orally Active 1 tablet Sodium Once a day on an empty stomach in the morning Pantoprazole [facility] 63112723018 40 MG Orally Active 1 tablet Sodium Once a day Results No Known Results Summary Purpose eClinicalWorks Submission
--- OUTSIDE RECORDS SUMMARY | 2020-07-25 07:08 | XMS REPORT ---
:1965 Author Organization [facility] Address [address] [place], [place]. [address] [place] [address] Care Team Providers Name Role Phone Platt Unavailable [phone] PROBLEMS Type Condition ICD9-CM [id number] Onset Condition SNOMED Code Notes Code Code Dates Status Problem Benign essential I10 Active 5089147 hypertension Problem Solitary cyst of N60.02 Active 472737612 left breast Problem Migraine without G43.009 Active 427119803 aura and without status migrainosus, not intractable Problem Depression with F41.8 Active 630201219 anxiety Problem History of Z87.19 Active 927912622 intussusception Problem Back pain with M54.10 Active 128530877 left-sided radiculopathy Problem Hemorrhoids, K64.9 Active 33257491 unspecified hemorrhoid type Problem Subclinical E03.9 Active 78875157 hypothyroidism Problem Bipolar disorder F31.9 Active 28198701 Problem CKD (chronic N18.3 Active 874456108 kidney disease) stage 3, GFR 30-59 ml/min Problem Irritable bowel K58.9 Active 08418703 syndrome, unspecified type Problem Constipation, K59.00 Active 25883265 unspecified constipation type Problem GERD without K21.9 Active 559508867 esophagitis Problem Nausea R11.0 Active 389948713 Problem Fibromyalgia M79.7 Active 489016097 ALLERGIES Allergen (clinical drug Drug/Non Drug Reaction Allergy Type Onset D ate Status ingredient) Allergy documented on EMR surgical tape Unknown Non Drug Allergy Activ e metoclopramide Reglan(NDC Unknown Drug Allergy Active Code:[address]-36) Requip Unknown Drug Allergy Active ENCOUNTERS from 1965 to 2020-07-17 Encounter Location Date Provider Diagnosis Viktor Wunsch-Brautkleid [address] [email or web address] Jul, [facility] Platt Brenda sed fracture of Family Medicine [address], [place] [address] encounter S62. 102A IMMUNIZATIONS No Information SOCIAL HISTORY Tobacco Use: [...] Answer Notes Are you a never smoker REASON FOR REFERRAL No Information VITAL SIGNS No information MEDICATIONS Medication SIG (Take, Route, Start Date End Date Status Frequency, Duration) Wellbutrin XL 150 MG 1 tablet in the morning Active Orally Once a day Levothyroxine Sodium 50 MCG 1 tablet on an empty Active stomach in the morning Orally Once a day for 30 day(s) HydrOXYzine HCl 25 MG 1 tablet Orally Once a day Active Clonazepam 0.5 MG 1 tablet at bedtime Orally Active Once a day PRN Anxiety for 30 days Gabapentin 600 MG TAKE ONE TABLET BY MOUTH Active EVERY MORNING AND THEN TAKE TWO TABLETS BY MOUTH EVERY EVENING for 30 Iron Supplement Active Gabapentin 600 MG 1 tablet am and 2 tabs pm Active Orally Twice a day for 30 days Tizanidine HCl 4 MG 1 tablet Orally Once a day Active pRN bedtime for 30 days Pantoprazole Sodium 40 MG 1 tablet Orally Once a day Active for 30 days Vitamin D3 2000 UNIT 1 capsule Orally Once a day Active Geodon 60 MG 1 capsule with food Orally A ctive Twice a day for 30 days Ziprasidone HCl 60 MG 1 capsule with food Orally Active Twice a day for 30 day(s) Fluoxetine HCl 60 MG 1 capsule Orally Once a day Active Propranolol HCl 10 MG 1 tablet on an empty Active stomach Orally Twice a day for 30 days Promethazine-DM 6.25-15 MG/5ML 5 ml as needed Active Nausea/Vomiting Orally every 6 hrs baclofen 10mg 1 tab as needed for pain PO Active Once at bedtime as needed Amitiza 24 MCG 1 capsule with food Orally Active Twice a day for 30 day(s) PROCEDURES No Information RESULTS No Results REASON FOR VISIT Referral Request MEDICAL (GENERAL) HISTORY Type Description Date Medical [...] No Information FUNCTIONAL STATUS No Information ASSESSMENTS Encounter Date Diagnosis Notes Jul, Closed fracture of left wrist, initial e ncounter (ICD-10 - S62.102A) PLAN OF TREATMENT Medication Medication Name Sig Start Date Stop Date Tizanidine HCl 4 MG 1 tablet Orally Once a day pRN bedtime for 30 days Promethazine-DM 6.25-15 MG/5ML 5 ml as needed Nausea/Vomiting Orally every 6 hrs Gabapentin 600 MG 1 tablet am and 2 tabs pm Orally Twice a day for 30 days Iron Supplement Pantoprazole Sodium 40 MG 1 tablet Orally Once a day for 30 days Vitamin D3 2000 UNIT 1 capsule Orally Once a day baclofen 10mg 1 tab as needed for pain PO Once at bedtime as needed Geodon 60 MG 1 capsule with food Orally Twice a day for 30 days HydrOXYzine HCl 25 MG 1 tablet Orally Once a day Fluoxetine HCl 60 MG 1 capsule Orally Once a day Propranolol HCl 10 MG 1 tablet on an empty stomach Orally Twice a day for 30 days Levothyroxine Sodium 50 MCG 1 tablet on an empty stomach in the morning Orally Once a day for 30 day(s) Amitiza 24 MCG 1 capsule with food Orally Twice a day for 30 day(s) Clonazepam 0.5 MG 1 tablet at bedtime Orally Once a day PRN Anxiety for 30 days Wellbutrin XL 150 MG 1 tablet in the morning Orally Once a day Next Appt Details Provider Name:Israel Ellis, 2020-07-21 1 0:30:00 AM, [address], [place], [address], Provider Name:Davinkimberly Platt, 2020-08-13 0 8:15:00 AM, [address], [place], [address], Insurance Providers Payer Name Payer Payer Insured Patient Coverage Coverage End Address Phone Name Relationship to Start Date Clyde e Insured [employer] [phone] Isreal Bosch self [address] [facility] [id number] [place] Replace [phone]
--- OUTSIDE RECORDS SUMMARY | 2020-07-25 07:09 | XMS REPORT ---
:1965 Author Organization [facility] Address [address] [facility] [address] [place] [address] Care Team Providers Name Role Phone Ellis Unavailable [phone] PROBLEMS Type Condition ICD9-CM [id number] Onset Condition SNOMED Code Notes Code Code Dates Status Problem Benign essential I10 Active 1784043 hypertension Problem Solitary cyst of N60.02 Active 360439439 left breast Problem Migraine without G43.009 Active 764522404 aura and without status migrainosus, not intractable Problem Depression with F41.8 Active 989685262 anxiety Problem History of Z87.19 Active 285955900 intussusception Problem Back pain with M54.10 Active 606821442 left-sided radiculopathy Problem Hemorrhoids, K64.9 Active 30994603 unspecified hemorrhoid type Problem Subclinical E03.9 Active 58982626 hypothyroidism Problem Bipolar disorder F31.9 Active 01724745 Problem CKD (chronic N18.3 Active 321479842 kidney disease) stage 3, GFR 30-59 ml/min Problem Irritable bowel K58.9 Active 83584194 syndrome, unspecified type Problem Constipation, K59.00 Active 01403059 unspecified constipation type Problem GERD without K21.9 Active 776916142 esophagitis Problem Nausea R11.0 Active 185869748 Problem Fibromyalgia M79.7 Active 120944163 ALLERGIES Allergen (clinical drug Drug/Non Drug Reaction Allergy Type Onset D ate Status ingredient) Allergy documented on EMR surgical tape Unknown Non Drug Allergy Activ e metoclopramide Reglan(ND Unknown Drug Allergy Active Code:[address]-44) Requip Unknown Drug Allergy Active ENCOUNTERS from 1965 to 2020-07-24 Encounter Location Date Provider Diagnosis [facility] [address] Jul, [place] [address] IMMUNIZATIONS No Information SOCIAL HISTORY Tobacco Use: [...] Information RESULTS No Results REASON FOR VISIT PRE-OP EKG MEDICAL (GENERAL) HISTORY Type Description Date Medical [...] PAIN Jul, Next Appt Details Provider Name:Israel Ellis 2020-08-07 0 1:30:00 PM, [address], [place], [address], Provider Name:Israel Ellis 2020-08-07 0 3:00:00 PM, [address], [place], [address], Provider Name:Davin Platt, 2020-08-13 0 8:15:00 AM, [address], [place], [address], Insurance Providers Payer Name Payer Payer Insured Patient Coverage Coverage End Address Phone Name Relationship to Start Date Clyde e Insured [employer] [phone] Isreal Bosch self [address] [facility] [id number] [address] [place] Replace [phone]
[2020-07-25] MEDS ORDERED: CEFAZOLIN/SWI 1gm 1 GM/10 ML SYR ONE (08:01)
[2020-07-25] MEDS ORDERED: Ringers Lactate 1,000 ML IV ONE ×2 (08:01→11:07)
[2020-07-25] MEDS ORDERED: MIDAZOLAM HCL 2 MG/2 ML INJ ONE (09:05)
[2020-07-25] MEDS ORDERED: FENTANYL CITR 100 MCG/2 ML ONE (09:05)
[2020-07-25] MEDS ORDERED: propofoL 200 MG/20 ML VIAL IV ONE (09:06)
[2020-07-25] MEDS ORDERED: dexAMETHasone 4 MG/ML VIAL ONE (09:23)
[2020-07-25] MEDS ORDERED: ROPLVACAINE HCL 40 ML ONE (09:24)
[2020-07-25] MEDS ORDERED: KETOROLAC 30 MG/ML INJ ONE (10:02)
[2020-07-25] MEDS ORDERED: ONDANSETRON 4 MG/2 ML VIAL ONE (10:02)
--- NOTE | 2020-07-25 11:18 | RAD REPORT ---
EXAM DESCRIPTION: RAD - Wrist Left 2 View - 07/25/2020 11:12 am CLINICAL HISTORY: ORIF LT WRIST Pain COMPARISON: Wrist Left 3 View dated 07/17/2020; Wrist Left 3 View dated 06/09/2017 FINDINGS: Fluoroscopy time 0.5 minutes.
--- NOTE | 2020-07-25 11:22 | P.BOP ---
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
[2020-07-25 11:48] VITALS: O2SAT 98
--- NOTE | 2020-07-25 12:05 | RAD REPORT ---
EXAM DESCRIPTION: RAD - Wrist Left 2 View - 07/25/2020 11:52 am CLINICAL HISTORY: s/p ORID left distal radial fx Pain COMPARISON: Wrist Left 2 View dated 07/25/2020; Wrist Left 3 View dated 07/17/2020 FINDINGS: Postoperative radiographs of the left wrist were performed. Bone detail is limited by spl int material. Hardware is in place in the distal radius. Ununited ulnar styloid fracture noted.
[2020-07-25] MEDS ORDERED: HYDROCODONE/APAP 7.5/325 MG TAB ONE (12:12)
[2020-07-25 12:28] VITALS: BP 131/74; TEMP 97.6
--- NOTE | 2020-07-25 14:22 | OP ---
Date of Procedure: 07/25/2020 Surgeon: Israel Ellis MD Anesthesiologist: Anesthesia team. Preoperative Diagnosis: Left distal radius fracture. Postoperative Diagnosis: Left distal radius fracture. Procedure Performed: Open reduction and internal fixation, left distal radius fracture. Anesthesia: General LMA with left upper extremity block. Complications: None. Implants: A narrow Acumed distal radius locking plate, 3-hole. Indication Of Procedure: Janice is a 54-year-old female who presented to my clinic after sustaining a fall onto an outstretched left hand with subsequent pain and deformity. She was seen in the emergency room and diagnosed with a left displaced distal radius fracture and placed in a sugar-tong splint. Repeat x-rays demonstrated significant dorsal angulation and displacement. I discussed with the patient at length risks and benefits associated with operative and nonoperative treatment. Given her significant displacement, we will proceed with operative treatment. She expressed understanding and elected to proceed with surgery. Description Of Procedure: After informed consent was obtained, the patient was identified in the preoperative holding area. Her left upper extremity was marked. The patient underwent a supraclavicular block performed by Anesthesia team in PACU. She was then taken to the operating room, transferred to the operating table in supine fashion, and placed under general LMA anesthesia. The left upper extremity was then prepped and draped in the usual sterile fashion. A time-out was initiated. The correct patient and procedure were confirmed and identified. The patient did receive her preoperative prophylactic antibiotics. Approximately 8 cm longitudinal incision was made centered over the FCR tendon consistent with a volar Vasyl approach. The flexor tendon sheath of the FCR tendon was then incised and the FCR tendon was then gently retracted radially. The floor of the tendon sheath was then opened and released both proximally and distally using Metzenbaum. Gentle dissection was then taken using Ragnell till the pronator quadratus was identified. A self-retaining retractor was placed. A 15-blade was then used to release the pronator quadratus off the radial aspect of distal radius. An elevator was then used to elevate the pronator quadratus off the distal radius. The fracture was identified. It was then manipulated, and with use of a [place], the fracture was reduced and confirmed using fluoroscopy. A 3-hole narrower Acumed distal radius locking plate was then placed on the fracture, and then using fluoroscopy, proper placement was then confirmed and the plate was pinned to the distal radius and the distal aspect of the plate was then affixed to the distal radius using 1 cortical screw in bicortical fashion to help reduce the fracture to the plate, followed by 3 unicortical locking screws. There was good overall placement of the hardware and this was confirmed with the fluoroscopy as well as good reduction. Next, the proximal screws were placed with three 3.5 cortical screws in bicortical fashion with good overall bite and fixation. Again, fluoroscopy was used to ensure proper reduction and alignment of the hardware. This was confirmed. The wound was then irrigated thoroughly with normal saline. Subcutaneous tissue was approximated using a 2-0 Vicryl. Skin was approximated using a 3-0 Monocryl subcuticular fashion. Sterile dressings were placed. The patient was placed in a sugar-tong splint. Tourniquet was let down and the patient was awakened and transferred to PACU in stable condition. Postoperative Plan: She will be nonweightbearing on her left upper extremity. She will follow up in my clinic in 2 weeks for wound check and likely transition to a volar brace. CABRERA/EDWIN Voice ID: [id number] Report ID: [id number] JEANETTE
== END 2020-07-25 12:24 | disposition home or self-care (01) ==
LOC: OR 07:00
PROVIDERS: ATTEND Orthopaedic Surgery Sports Medicine
PROC: 0PSJ04Z Reposition Left Radius with Internal Fixation Device, Open Approach (ICD-10-PCS; principal; 2020-07-25 09:00)
DX: S52.502A Unspecified fracture of the lower end of left radius, initial encounter for closed fracture (principal); Z20.828 Contact with and (suspected) exposure to other viral communicable diseases
CPT/HCPCS: 93005; 85025; 80048; 36415; 85610; 85730; 71046; 73100 ×2; 25607; U0002; J2704; J1100; J2250; J3010; J2795; J0690; J7120 ×2; J2405

== ENCOUNTER 2021-07-12 15:54 | Emergency (ER) | payer OTHER ==
[2021-07-12 16:47] LABS: Urine Blood Negative (Negative); Urine Glucose Negative (Negative); Urine Protein Negative (Negative); Urine pH 6.5 (5.0-7.0)
[2021-07-12] MEDS ORDERED: MORPHINE 4 MG/ML SYR ONE (17:03)
[2021-07-12] MEDS ORDERED: ONDANSETRON 4 MG/2 ML VIAL ONE (17:03)
[2021-07-12 17:04] LABS: Absolute Lymphocytes (CBC) 1.8 K/uL (0.7-4.9); Basophils % 0.9 % (0-1.3); Hematocrit 39.4 % (36.0-45.0); Lymphocytes % 37.5 % (15.3-44.8); MPV 7.3 fL (7.6-11.3); RBC Red Blood Cell Count 4.38 M/uL (3.86-4.86)
[2021-07-12 17:52] LABS: Potassium 4.4 mmol/L (3.5-5.1)
--- NOTE | 2021-07-12 18:21 | RAD REPORT ---
EXAM DESCRIPTION: CT - Thorax W/ Con - 07/12/2021 6:06 pm CLINICAL HISTORY: fall, pain and injury left ant/lat ribs COMPARISON: No comparisons TECHNIQUE: Dynamically enhanced 5 mm thick images of the chest were obtained during administration o f 100 mL non-ionic IV contrast. All CT scans are performed using dose optimization technique as appropriate and may include automated exposure control or mA/KV adjustment according to patient size. FINDINGS: No mass or infiltrate in the lung parenchyma. No pleural thickening or pleural effusion. N o pneumothorax. No chest wall mass or abnormal axillary lymphadenopathy. No abnormal mediastinal or hilar mass or lymphadenopathy seen. No displaced or nondisplaced rib fractures identified. There is asymmetry in the appearance the ribca ge due to the underlying thoracic scoliosis. IMPRESSION: Negative contrast enhanced CT chest examination for acute or significant finding.
--- NOTE | 2021-07-12 18:28 | ER ---
Nurse's Notes [facility] Name: Janice Bosch Age: 55 yrs Sex: Female : 1965 Arrival Date: 07/12/2021 Time: 15:56 Bed 23 Private MD: Diagnosis: Contusion of left front wall of thorax Presentation: 07/12 16:18 Chief complaint: Patient states: Pt lost balance, tripped and fell against a book case vg1 at home and landed on the Left side of ribs. Pt states difficulty breathing and shortness of breath and pain upon deep inhalation. States pain on left side of rib radiates to back. Coronavirus screen: Vaccine status: Patient reports receiving the 2nd dose of the covid vaccine. Ebola Screen: Patient negative for fever greater than or equal to 101.5 degrees Fahrenheit, and additional compatible Ebola Virus Disease symptoms. Initial Sepsis Screen: Does the patient meet any 2 criteria? No. Patient's initial sepsis screen is negative. Does the patient have a suspected source of infection? No. Patient's initial sepsis screen is negative. Risk Assessment: Do you want to hurt yourself or someone else? Patient reports no desire to harm self or others. Onset of symptoms was July 02, 2021. 16:18 Method Of Arrival: Ambulatory vg1 16:18 Acuity: BONITA 3 vg1 18:44 Care prior to arrival: None. Mechanism of Injury: Fall. Trauma event details: Injury es2 occurred: July 12, 2021. Triage Assessment: 16:20 General: Appears in no apparent distress. uncomfortable, Behavior is calm, cooperative. vg1 Pain: Complains of pain in left lateral posterior chest. Historical: - Allergies: 16:20 Reglan; vg1 16:20 Requip; vg1 - Home Meds: 16:20 clonazepam 0.5 mg Oral tab [Active]; gabapentin 600 mg Oral tab 2 tab [Active]; vg1 propranolol 10 mg Oral tab twice a day [Active]; Protonix 40 mg Oral TbEC once daily [Active]; Prozac 40 mg Oral cap 1 cap once daily [Active]; Zanaflex 4 mg Oral tab 2 tabs nightly [Active]; ziprasidone HCl 60 mg Oral cap at bedtime [Active]; - Immunization history:: Adult Immunizations up to date, Client reports receiving the 2nd dose of the Covid vaccine. - Social history:: Smoking status: Patient denies any tobacco usage or history of. - Immunization history: Last tetanus immunization: not needed.. - Family history:: not pertinent. - Hospitalizations: : No recent hospitalization is reported. Screenin:52 Abuse screen: Denies threats or abuse. Denies injuries from another. Nutritional es2 screening: No deficits noted. Tuberculosis screening: No symptoms or risk factors identified. Fall Risk IV access (20 points). Gait- Normal/Bed Rest/Wheelchair (0 pts). Primary Survey: 16:53 NO uncontrolled hemorrhage observed. A: Airway: patent. Breathing/Chest: Respiratory es2 pattern: regular, Respiratory effort: spontaneous. Circulation: Skin color: pink. Disability Alert. Exposure/Environment: There is no evidence of uncontrolled external bleeding. Reassessment Airway Airway Patent Breathing/Chest Respiratory pattern Regular Circulation Pulses Palpable Disability Alert. Vital Signs: 16:18 BP 127 / 82; Pulse 74; Resp 16; Temp 98.1; Pulse Ox 98% ; Weight 68.04 kg; Height 5 ft. vg1 10 in. (177.80 cm); Pain 5/10; 16:18 Body Mass Index 21.52 (68.04 kg, 177.80 cm) vg1 Lora Coma Score: 16:53 Eye Response: spontaneous(4). Verbal Response: oriented(5). Motor Response: obeys es2 commands(6). Total: 15. Trauma Score (Adult): 16:53 Eye Response: spontaneous(1); Verbal Response: oriented(1); Motor Response: obeys es2 commands(2); Systolic BP: > 89 mm Hg(4); Respiratory Rate: 10 to 29 per min(4); Lora Score: 15; Trauma Score: 12 ED Course: 15:56 Patient arrived in ED. rg4 16:20 Triage completed. vg1 16:20 Arm band placed on. vg1 16:24 Dale Varghese MD is Attending Physician. rn 16:35 Rocio Fair RN is Primary Nurse. es2 16:52 CBC with Diff Sent. es2 16:52 Inserted saline lock: 20 gauge in right forearm, using aseptic technique. Blood es2 collected. 16:53 No provider procedures requiring assistance completed. es2 17:02 Urine Dipstick-Ancillary Sent. es2 17:02 Beta hcg Sent. es2 17:26 Beta hcg Sent. es2 18:06 CT Chest W/ Con In Process Unspecified. EDMS 18:45 Patient has correct armband on for positive identification. Call light in reach. Side es2 rails up X 1. 18:45 Patient maintains SpO2 saturation greater than 95% on room air. Thermoregulation: warm es2 blanket given to patient. 18:45 IV discontinued, intact, bleeding controlled, No redness/swelling at site. Pressure es2 dressing applied. Administered Medications: 16:51 Drug: Zofran (Ondansetron) 4 mg Route: IVP; Site: right forearm; es2 16:52 Follow up: Response: No adverse reaction es2 16:52 Drug: morphine 4 mg Route: IVP; Site: right forearm; es2 16:52 Follow up: Response: No adverse reaction es2 Output: 16:53 Urine: 50ml (Voided); Total: 50ml. es2 Outcome: 18:27 Discharge ordered by . rn 18:45 Discharged to home ambulatory. es2 18:45 Condition: stable 18:45 Discharge instructions given to patient, significant other, Instructed on discharge instructions, Demonstrated understanding of instructions. 18:45 Patient's length of stay in the Emergency Department was greater than 2 hours. test es2 results.Patient's length of stay extended due to 18:46 Patient left the ED. es2 Signatures: Dispatcher [employer] EDMS Dale Varghese MD MD rn Garcia, Rubi rg4 Julia Guy RN RN 1 Rocio Fair RN RN es2 Corrections: (The following items were deleted from the chart) 17:08 17:02 QUANTITATIVE HCG+C.LAB.BRZ drawn and sent. es2 EDMS 17:09 16:52 BASIC METABOLIC PANEL+C.LAB.BRZ drawn and sent. es2 EDMS
--- NOTE | 2021-07-12 18:28 | EDPHYS ---
Physician Documentation [facility] Name: Janice Bosch Age: 55 yrs Sex: Female : 1965 Arrival Date: 07/12/2021 Time: 15:56 Bed 23 Private MD: ED Physician Dale Varghese HPI: 07/12 16:35 This 55 yrs old Female presents to ER via Ambulatory with complaints of Fall rn Injury. 16:35 This 55 yrs old Female presents to ER via Ambulatory with complaints of Fall rn Injury, rib injury. 16:36 The patient or guardian reports chest pain that is located primarily in the anterior rn chest wall. Onset: The symptoms/episode began/occurred just prior to arrival. The pain does not radiate. Associated signs and symptoms: Pertinent negatives: abdominal pain, cough, diaphoresis, near syncope, palpitations, shortness of breath, syncope, vomiting. The chest pain is described as sharp, stabbing. Duration: The patient or guardian reports multiple episodes, that are intermittent. Modifying factors: The symptoms are alleviated by remaining still, the symptoms are aggravated by deep breath, movement, palpation of area. Severity of pain: At its worst the pain was moderate in the emergency department the pain is unchanged. The patient has not experienced similar symptoms in the past. The patient has not recently seen a physician. Patient reports tripped and fell at home, hit left anterior chest on bookshelf. Reports pain to left anterior lateral chest wall and ribs. No shortness of breath. Worse with palpation and movement. Does not take blood thinners. No head injury or loss of consciousness. Denies any sort of back pain or extremity injury. No abdominal pain. Historical: - Allergies: 16:20 Reglan; vg1 16:20 Requip; vg1 - Home Meds: 16:20 clonazepam 0.5 mg Oral tab [Active]; gabapentin 600 mg Oral tab 2 tab [Active]; vg1 propranolol 10 mg Oral tab twice a day [Active]; Protonix 40 mg Oral TbEC once daily [Active]; Prozac 40 mg Oral cap 1 cap once daily [Active]; Zanaflex 4 mg Oral tab 2 tabs nightly [Active]; ziprasidone HCl 60 mg Oral cap at bedtime [Active]; - Immunization history:: Adult Immunizations up to date, Client reports receiving the 2nd dose of the Covid vaccine. - Social history:: Smoking status: Patient denies any tobacco usage or history of. - Immunization history: Last tetanus immunization: not needed.. - Family history:: not pertinent. - Hospitalizations: : No recent hospitalization is reported. ROS: 16:36 Constitutional: Negative for fever, chills, and weight loss, Eyes: Negative for injury, rn pain, redness, and discharge, Neck: Negative for injury, pain, and swelling, Cardiovascular: Negative for palpitations, and edema, Respiratory: Negative for shortness of breath, cough, wheezing Abdomen/GI: Negative for abdominal pain, nausea, vomiting, diarrhea, and constipation, Back: Negative for injury and pain, MS/Extremity: Negative for injury and deformity, Skin: Negative for injury, rash, and discoloration, Neuro: Negative for headache, weakness, numbness, tingling, and seizure. Exam: 16:36 Constitutional: This is a well developed, well nourished patient who is awake, alert, rn and in no acute distress. Head/Face: Normocephalic, atraumatic. Eyes: Pupils equal round and reactive to light, extra-ocular motions intact. Lids and lashes normal. Conjunctiva and sclera are non-icteric and not injected. Cornea within normal limits. Periorbital areas with no swelling, redness, or edema. Chest/axilla: Tenderness left anterior lateral inferior ribs without crepitus or abnormal motion. No ecchymosis. Cardiovascular: Regular rate and rhythm. No pulse deficits. Respiratory: No increased work of breathing, no retractions or nasal flaring. Splinting with deep breath on left side Abdomen/GI: Soft, non-tender Skin: Warm, dry MS/ Extremity: Pulses equal, no cyanosis. Neuro: Awake and alert, GCS 15, oriented to person, place, time, and situation. Cranial nerves II-XII grossly intact. Motor strength 5/5 in all extremities. Sensory grossly intact. Cerebellar exam normal. Normal gait. Vital Signs: 16:18 BP 127 / 82; Pulse 74; Resp 16; Temp 98.1; Pulse Ox 98% ; Weight 68.04 kg; Height 5 ft. vg1 10 in. (177.80 cm); Pain 5/10; 16:18 Body Mass Index 21.52 (68.04 kg, 177.80 cm) vg1 Lora Coma Score: 16:53 Eye Response: spontaneous(4). Verbal Response: oriented(5). Motor Response: obeys es2 commands(6). Total: 15. Trauma Score (Adult): 16:53 Eye Response: spontaneous(1); Verbal Response: oriented(1); Motor Response: obeys es2 commands(2); Systolic BP: > 89 mm Hg(4); Respiratory Rate: 10 to 29 per min(4); Ava Score: 15; Trauma Score: 12 MDM: 16:24 Patient medically screened. rn 18:01 ED course: Patient with slightly elevated beta-hCG. Status post hysterectomy. 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 18:26 Differential diagnosis: Blunt Chest Trauma Chest Wall Contusion Chest Wall Injury rn Pneumothorax Pulmonary Contusion Rib Fracture. Data reviewed: vital signs, nurses notes, lab test result(s), radiologic studies, CT scan, and as a result, I will discharge patient. Data interpreted: Pulse oximetry: on room air is 98 %. Interpretation: normal. Counseling: I had a detailed discussion with the patient and/or guardian regarding: the historical points, exam findings, and any diagnostic results supporting the discharge/admit diagnosis, lab results, radiology results, the need for outpatient follow up, to return to the emergency department if symptoms worsen or persist or if there are any questions or concerns that arise at home. Response to treatment: the patient's symptoms have mildly improved after treatment, and as a result, I will discharge patient. 07/12 16:34 Order name: CBC with Diff; Complete Time: 17:52 rn 07/12 16:48 Order name: Urine Dipstick-Ancillary; Complete Time: 16:55 EDMS 07/12 16:48 Order name: Urine Dipstick-Ancillary EDMS 07/12 16:55 Order name: Beta hcg; Complete Time: 18:01 rn 07/12 16:34 Order name: IV Start; Complete Time: 16:52 rn 07/12 16:34 Order name: CT Chest W/ Con; Complete Time: 18:22 rn 07/12 17:09 Order name: Basic Metabolic Panel; Complete Time: 18:01 EDMS Administered Medications: 16:51 Drug: Zofran (Ondansetron) 4 mg Route: IVP; Site: right forearm; es2 16:52 Follow up: Response: No adverse reaction es2 16:52 Drug: morphine 4 mg Route: IVP; Site: right forearm; es2 16:52 Follow up: Response: No adverse reaction es2 Disposition Summary: 07/12/21 18:27 Discharge Ordered Location: Home rn Problem: new rn Symptoms: have improved rn Condition: Stable rn Diagnosis - Contusion of left front wall of thorax rn Followup: rn - With: Private Physician - When: As needed - Reason: Recheck today's complaints, Re-evaluation by your physician Discharge Instructions: - Discharge Summary Sheet rn - Rib Contusion rn Forms: - Medication Reconciliation Form rn - Thank You Letter rn - Antibiotic attorney at law - Prescription Opioid Use rn Signatures: Dispatcher [employer] EDMS Dale Varghese MD MD rn Garcia, Victoria RN RN vg1 Rocio Fair RN RN es2 Corrections: (The following items were deleted from the chart) 17:08 16:57 QUANTITATIVE HCG+C.LAB.BRZ ordered. EDMS EDMS 17:09 16:35 BASIC METABOLIC PANEL+C.LAB.BRZ ordered. EDMS EDMS
[2021-07-12 19:00] VITALS: BP 127/82; TEMP 98.1; O2SAT 98
== END 2021-07-12 18:46 | disposition home or self-care (01) ==
LOC: ER 15:54
DX: S20.212A Contusion of left front wall of thorax, initial encounter (principal); W01.190A Fall on same level from slipping, tripping and stumbling with subsequent striking against furniture, initial encounter; Y92.009 Unspecified place in unspecified non-institutional (private) residence as the place of occurrence of the external cause; Z88.8 Allergy status to other drugs, medicaments and biological substances
CPT/HCPCS: 85025; 80048; 36415; 82565; 84702; 81003; 71260; 96375; 96374; 99284; Q9967; J2405

== ENCOUNTER 2022-11-17 11:24 | Day surgery (SDC) | payer MEDICARE, OTHER ==
[2022-11-17] MEDS ORDERED: Ringers Lactate 1,000 ML IV ONE (11:50)
[2022-11-17] MEDS ORDERED: LIDOCAINE 1% MPF 30 ML VIAL ONE (12:05)
[2022-11-17] MEDS ORDERED: TRIAMCINOLONE ACETON 40 MG/ML VIAL ONE (12:05)
[2022-11-17 12:16] VITALS: O2SAT 100
[2022-11-17] MEDS ORDERED: LIDOCAINE 2% MPF 5 ML VIAL ONE (12:31)
[2022-11-17] MEDS ORDERED: MIDAZOLAM HCL 2 MG/2 ML INJ ONE (12:31)
[2022-11-17] MEDS ORDERED: propofoL 200 MG/20 ML VIAL IV ONE (12:31)
[2022-11-17] MEDS ORDERED: BUPIVACAINE 0.25% PF 30 ML VIAL ONE (12:35)
--- NOTE | 2022-11-17 14:30 | RAD REPORT ---
EXAM DESCRIPTION: RAD - Fluoroscopy <1 Hour - 11/17/2022 1:48 pm CLINICAL HISTORY: CATARINO L2-L3, L3-L4 STEROID INJECTION COMPARISON: BREAST/AXILLA, LIMITED dated 07/19/2016 FINDINGS/IMPRESSION: One intraoperative fluoroscopic images was submitted showing needles with tips overlying the L2-3, L3-4, and L4-5 facets. Fluoro dose: 2.3 mGy. Fluoro time: 0.4 minutes
[2022-11-17 14:45] VITALS: BP 120/69; TEMP 97.3
== END 2022-11-17 13:50 | disposition home or self-care (01) ==
LOC: OR 11:24
PROVIDERS: ATTEND Pain Medicine Interventional Pain Medicine
PROC: 3E0S33Z Introduction of Anti-inflammatory into Epidural Space, Percutaneous Approach (ICD-10-PCS; principal; 2022-11-17 12:45)
DX: M47.816 Spondylosis without myelopathy or radiculopathy, lumbar region (principal)
CPT/HCPCS: 62323; J2704; J3301; J2001 ×2; J2250; J7120; Q9967; 76000

== ENCOUNTER 2023-03-20 09:54 | Emergency (ER) | payer MEDICARE ==
--- OUTSIDE RECORDS SUMMARY | 2023-03-20 10:05 | XMS REPORT | Continuity of Care Document ---
:1965 Author Organization [facility] t Address [address] [place] [address] [address] [place] [address] Care Team Providers Name Role Phone GLORIA PLATT Primary Care Physician Unavailable Gloria Platt Attending Clinician Unavailable Marla La Attending Clinician Melissa Dunham Attending Clinician Unavailable Jorge A Attending Clinician Unavailable SHAN SANTANA Attending Clinician Unavailable Shan Santana MD Attending Clinician Doctor Unassigned, Pepper Pike Attending Clinician Unavailable Almita Moore MA Attending Clinician Unavailable SCAR OJEDA Attending Clinician Unavailable NILAY LENNON Attending Clinician Unavailable Nilay Lennon DO Attending Clinician Spike Puri RN Attending Clinician Unavailable JESUS MORA Attending Clinician Unavailable Hill Piña Attending Clinician Pauly Tanner Attending Clinician Herbie Olvera MD Attending Clinician Jesus Mora DO Attending Clinician ABDIRIZAK KRUEGER Attending Clinician Unavailable Abdirizak Krueger MD Attending Clinician [phone] CARLTON ECHEVERRIA Attending Clinician Unavailable Carlton Echeverria MD Attending Clinician Zenaida Harris PA-C Attending Clinician KENYA CONNOLLY Attending Clinician Unavailable Jorge A Admitting Clinician Unavailable SHAN SANTANA Admitting Clinician Unavailable NILAY LENNON Admitting Clinician Unavailable JESUS MORA Admitting Clinician Unavailable Jesus Mora DO Admitting Clinician CARLTON ECHEVERRIA Admitting Clinician Unavailable Carlton Echeverria MD Admitting Clinician MYLENE BOBBY Admitting Clinician Unavailable Payers Payer Name Policy Type Policy Number Effective Date Expiration Date S [facility] 2022 (MEDICARE 00:00:00 REPLACEMENT HMO) [employer] [id number] 2020spring 00:00:00 [facility] [id number] 2018 Common g Medicare 00:00:00 Spirit - [facility] Replace [facility] Problems Condition Condition Condition Status Onset Resolution Last Treating Co mments Source Name Details Category Date Date Treatment Clinician Date Abdominal Abdominal Disease Active Uni vers pain, pain, 9-14 ity [place]spec[place] Medical abdominal abdominal Bran ch location location Small Small Disease Recurre [facility] bowel bowel nce 06-26 [facility] obstructio obstructio 00:00: Me dical n n 00 Center Pancreatit Pancreatit Disease Active C HI St is is 06-25 [facility] 00:00: Medical 00 Center Perimenopa Post Problem Commo n usal hysterecto Spirit disorder my - CHI menopause [facility] Chronic Stage 3b Problem Common kidney chronic Spirit disease kidney - CHI stage 3B disease St (disorder) [facility] Mixed Depression Problem Commo n anxiety with Spirit and anxiety - CHI depressive disorder [facility] Benign Benign Problem Common essential essential Spir it hypertensi hypertensi - CHI on on [facility] Bipolar Bipolar Problem Common disorder disorder Spirit - [facility] Solitary Solitary Problem Commo n cyst of cyst of Spirit breast left - CHI breast [facility] [id number] Irritable Problem Comm on bowel Spirit syndrome, - CHI unspecifie [facility] Migraine Migraine Problem Commo n without without Spirit aura, not aura and - CHI refractory without [facility] migrainosu Medica l s, not Center intractabl e [id number] Mixed Problem Common hyperlipid Spirit emia [facility] [id number] Nausea Problem Common [facility] [id number] Fibromyalg Problem Co mmon ia Spirit [facility] [id number] Hemorrhoid Problem Com mon s, Spirit unspecifie - CHI d hemorrhoid [facility] Pain in Left wrist Problem Comm on wrist pain [facility] [id number] Back pain Problem Com mon with Spirit left-sided - CHI radiculopa [facility] [id number] History of Problem Co mmon intussusce Spirit ption [facility] [id number] Constipati Problem Com mon on, Spirit unspecifie - CHI d constipati [facility] [id number] GERD Problem Common without Spirit esophagiti - CHI s [facility] [id number] Subclinica Problem Com mon l Spirit hypothyroi - CHI dism [facility] [id number] +5th digit Problem Co mmon eff Spirit 07/03/20*CK - CHI D (chronic kidney [facility] disease) Medical stage 3, Center GFR 30-59 ml/min Right Abdominal Problem Common upper pain, RUQ [facility] quadrant - CHI pain [facility] No known No known Disease Unive rs active active ity of problems problems [facility] [place] Allergies, Adverse Reactions, Alerts Allergy Allergy Status Severity Reaction(s) Onset Inactive Treating Comm ents Source Name Type Date Date Clinician Gely Tannerensi Active Nausea 2020-10 Univer s le ty to and/or 10-19 ity of adverse Vomiting 00:00: [place] reaction 00 [facility] Branch METOCLOP DRUG Active Anxiety 2020-10 Univers RAMIDE INGREDI 10-19 ity of 00:00: [place] 00 [facility] ROPINIRO DRUG Active N/V 2020-10 Univers LE INGREDI 1-17 ity of 00:00: [place] 00 Medical Branch Metoclop Propensi Active Anxiety 2020-10 Unive rs ramide ty to 1-17 ity of adverse 00:00: [place] reaction 00 Medical s Branch Metoclop Propensi Active 2018- [facility] ramide ty to 9-23 [facility] adverse 00:00: Medical reaction 00 Center s Ropiniro Propensi Active [facility] le ty to 9-23 [facility] adverse 00:00: Medical reaction 00 Center s METOCLOP Allergy Active 2018- [facility] RAMIDE 9-23 [facility] 00:[facility]: Medical 00 Center ROPINIRO Allergy Active [facility] LE 9-23 [facility] 00:[facility]: Medical 00 Center Hydrochl Propensi Active Other - See 2016-10 Weak U nivers orothiaz ty to comments 0-10 ity of noel adverse 00:00: [place] reaction 00 [facility] HYDROCHL DRUG Active High Other-Cmnt 2016-10 Univ ers OROTHIAZ INGREDI 0-10 ity of NOEL 00:00: [place] 00 [facility] metoclop metoclop Active Unknown Commo n ramide ramide Spirit - [facility] 5921 Drug Active Unknown Common allergy [facility] Social History Social Habit Start Date Stop Date Quantity Comments Source History of Common Spirit - Tobacco Use [facility] History SDOH [facility] Alcohol Std Medical Cente r Drinks History SDOH [facility] Alcohol Binge Medical Bruna ter Exposure to 2022-09-13 2022-09-23 Not sure [facility] SARS-CoV-2 00:00:00 14:14:00 [facility] (event) Branch Education 2022-06-16 2022-06-16 21 University of 00:00:00 00:00:00 [facility] [place] Alcohol intake 2022-04-14 2022-04-[address] [facility] es 00:00:00 00:00:00 non-drinker of Medical Ce nter alcohol (finding) History SDOH 2019-06-25 2019-06-[address] [facility] Alcohol Frequency 00:00:00 00:00:00 Medical Center Tobacco use and 2019-06-25 2019-06-25 Smokeless tobacco [facility] exposure 00:00:00 00:00:00 non-user Medical Center Sex Ass[birth year] At [birth year] ADELAIDE Ridley 00:00:00 00:00:00 Medical Center Smoking Status Start Date Stop Date Source Never smoked tobacco [facility] Unknown if ever smoked [facility] Medications Ordered Filled Start Stop Current Ordering Indication Dosage Frequency Signature Comments Components Source Medication Medication Date Date Medication? Clinician (SIG) Name Name ketorolac 2021-10 No 15mg 15 mg, Unive rs (TORADOL) 0-24 10-25 Slow IV ity of injection 23:00: 22:59 Push, Q6H, [place] 15 mg 00 :00 4 doses, Medical First dose Branch on Tue07/26/22 at 1800, Last dose on Tue07/27/22 at 1200, Routine HYDROcodone 2021-10 No 1{tbl} 1 tablet, Univers -acetaminop 0-24 10-24 Oral, ity of hen (NORCO) 20:45: 19:52 ONCE, 1 [place] 10-325 mg 00 :00 dose, On Medica l tablet 1 [facility] tablet 07/26/22 at 1545, Routine methocarbam 2021-10 No 1000mg 1,000 mg, Univers oL 0-24 10-24 Oral, ity of (ROBAXIN) 17:45: 18:58 ONCE, 1 [place] tablet 00 :00 dose, On Medical 1,000 mg [facility] Branch 07/26/22 at 1245, RUBEN naproxen 2021-10 Yes [id number] 550mg Take 1 Univers sodium 550 0-24 [id number] tablet by it y of mg tablet 00:00: [place] the Medical morning Branch and 1 tablet in the evening. Take with meals. methylPREDN 2021-10 Yes [id number] Take by Univers ISolone 4 0-24 [id number] mouth ity of mg tablets 00:00: [place]-INSTRU [place] 00 CTIONS. Medical follow Branch package directions naproxen 2021-10 Yes [id number] 550mg Take 1 Univers sodium 550 0-24 [id number] tablet by it y of mg tablet 00:00: [place] 00 the Medical morning Branch and 1 tablet in the evening. Take with meals. methylPREDN 2021-10 Yes [id number] Take by Univers ISolone 4 0-24 [id number] mouth ity of mg tablets 00:00: [place]-INSTRU [place] 00 CTIONS. Medical follow Branch package directions naproxen 2021-10 Yes [id number] 550mg Take 1 Univers sodium 550 0- [id number] tablet by it y of mg tablet 00:00: [place] 00 the Medical morning Branch and 1 tablet in the evening. Take with meals. methylPREDN 2021-10 Yes [id number] Take by Univers ISolone 4 0-24 [id number] mouth ity of mg tablets 00:00: SEE-INSTRU [place] 00 CTIONS. Medical follow Branch package directions methocarbam 2021-10- No [id number] 500mg Take 1 Univers oL 500 mg 008-01 [id number] tablet by it y of tablet 00:00: 04:59 mouth in [place] 00 :00 the Medical morning Branch and 1 tablet at noon and 1 tablet in the evening. Do all this for 5 days. lidocaine 5 2021-10- No [id number] 1{patch Apply 1 Univers % (700 007-27 [id number] } Patch to ity of mg/patch) 00:00: 04:59 area(s[place] patch 00 :00 once now Medical for 1 Branch dose. Zofran 4 MG Zofran 4 MG 2021-0 No BID Zofran 4 9-28 MG 00:00: 00 Zofran 4 MG Zofran 4 MG 2021-0 No BID Zofran 4 9-28 MG 00:00: 00 Zofran 4 MG Zofran 4 MG 2021-0 No BID Zofran 4 9-28 MG 00:00: 00 Zofran 4 MG Zofran 4 MG 2021-0 No BID Zofran 4 9-28 MG 00:00: 00 Zofran 4 MG Zofran 4 MG 2-0 No BID Zofran 4 9-28 MG 00:00: 00 Zofran 4 MG Zofran 4 MG 2021-0 No BID Zofran 4 9-28 MG 00:00: 00 Zofran 4 MG Zofran 4 MG 2021-0 No BID Zofran 4 9-28 MG 00:00: 00 Zofran 4 MG Zofran 4 MG 2021-0 No BID Zofran 4 9-28 MG 00:00: 00 Zofran 4 MG Zofran 4 MG 2021-0 No BID Zofran 4 9-28 MG 00:00: 00 Zofran 4 MG Zofran 4 MG 2021-0 No BID Zofran 4 9-28 MG 00:00: 00 Zofran 4 MG Zofran 4 MG 2021-0 No BID Zofran 4 9-28 MG 00:00: 00 Zofran 4 MG Zofran 4 MG 2021-0 No BID Zofran 4 9-28 MG 00:00: 00 Zofran 4 MG Zofran 4 MG 2021-0 No BID Zofran 4 9-28 MG 00:00: 00 Zofran 4 MG Zofran 4 MG 2021-0 No BID Zofran 4 9-28 MG 00:00: 00 gabapentin 2021-0 Yes 300mg Take 300 Un henry 300 mg 9-19 mg by ity of capsule 12:24: mouth 3 [place] 20 (three) Medical times Branch daily. Indication s: 1 in the Am and 4 at bed time ziprasidone 2021-0 Yes 60mg Take 60 mg Univers 60 mg 9-19 by mouth ity of capsule 12:24: daily. [place] [address] Medical Branch PANTOPRAZOL 0 Yes 40mg Take 40 mg Univers E SODIUM 9-19 by mouth. ity of (PROTONIX 12:24: [place] ORAL) 20 Medical Branch tiZANidine 0 Yes 4mg Take 4 mg Un henry 4 mg 9-19 by mouth 2 ity of capsule 12:24: (two) [place] 20 times [facility] daily. Branch IRON &IRON 0 Yes Take by Univ ers ASP 9-19 mouth. ity of GLY-FA-MV,M 12:24: Indication [place] IN38 ORAL 20 s: iron Medical injectio Branch once a month propranolol 2021-0 Yes 20mg Take 20 mg Univers 20 mg 9-19 by mouth ity of tablet 12:24: daily. [place] [address] Medical Branch levothyroxi 0 Yes 50ug Take 50 Uni vers ne 50 mcg 9-19 mcg by ity of tablet 12:24: mouth [place] [address] every Medical morning. Branch hydrOXYzine 0 Yes 50mg Take 50 mg Univers 50 mg 9-19 by mouth ity of tablet 12:24: in the [place] [address] morning Medical and 50 mg Branch in the evening. zolpidem 2021-0 Yes 12.5mg Take 12.5 Un henry 12.5 mg CR 9-19 mg by ity of tablet 12:24: mouth at [place] [address] bedtime as Medical needed for Branch Sleep. buspirone 2021-0 Yes 5mg Take 5 mg Uni vers HCl 9-19 by mouth ity of (BUSPIRONE 12:24: as needed. [place] ORAL) 20 Medical Branch LORazepam 2021-0 Yes .5mg Take 0.5 Univ ers 0.5 mg 9-19 mg by ity of tablet 12:24: mouth as [place] [address] needed. Medical Branch venlafaxine 2021-0 Yes 75mg Take 75 mg Univers XR 75 mg 24 -19 by mouth ity of hr capsule 12:24: daily with [place] 20 breakfast. Medical Branch lamoTRIgine 2021-0 Yes 200mg Take 200 U nivers 200 mg 9-19 mg by ity of tablet 12:24: mouth in [place] [address] the Medical morning. Branch gabapentin 2021-0 Yes 300mg Take 300 Un henry 300 mg 9-19 mg by ity of capsule 12:24: mouth 3 [place] [address] (three) Medical times Branch daily. Indication s: 1 in the Am and 4 at bed time ziprasidone 2021-0 Yes 60mg Take 60 mg Univers 60 mg 9-19 by mouth ity of capsule 12:24: daily. [place] [address] Medical Branch PANTOPRAZOL 2021-0 Yes 40mg Take 40 mg Univers E SODIUM -19 by mouth. ity of (PROTONIX 12:24: [place] ORAL) 20 Medical Branch tiZANidine 2021-0 Yes 4mg Take 4 mg Un henry 4 mg 9-19 by mouth 2 ity of capsule 12:24: (two) [place] 20 times Medical daily. Branch IRON &IRON 2021-0 Yes Take by Univ ers ASP 9-19 mouth. ity of GLY-FA-MV,M 12:24: Indication [place] IN38 ORAL 20 s: iron Medical injectio Branch once a month propranolol 2021-0 Yes 20mg Take 20 mg Univers 20 mg 9-19 by mouth ity of tablet 12:24: daily. [place] [address] Medical Branch levothyroxi 2021-0 Yes 50ug Take 50 Uni vers ne 50 mcg 9-19 mcg by ity of tablet 12:24: mouth [place] 20 every Medical morning. Branch hydrOXYzine 0 Yes 50mg Take 50 mg Univers 50 mg 9-19 by mouth ity of tablet 12:24: in the [place] 20 morning Medical and 50 mg Branch in the evening. zolpidem 0 Yes 12.5mg Take 12.5 Un henry 12.5 mg CR 9-19 mg by ity of tablet 12:24: mouth at [place] [address] bedtime as Medical needed for Branch Sleep. buspirone 2021-0 Yes 5mg Take 5 mg Uni vers HCl 9-19 by mouth ity of (BUSPIRONE 12:24: as needed. [place] ORAL) 20 Medical Branch LORazepam 0 Yes .5mg Take 0.5 Univ ers 0.5 mg 9-19 mg by ity of tablet 12:24: mouth as [place] [address] needed. Medical Branch venlafaxine 0 Yes 75mg Take 75 mg Univers XR 75 mg 24 19 by mouth ity of hr capsule 12:24: daily with [place] 20 breakfast. Medical Branch lamoTRIgine 0 Yes 200mg Take 200 U nivers 200 mg 9-19 mg by ity of tablet 12:24: mouth in [place] 20 the Medical morning. Branch gabapentin 0 Yes 300mg Take 300 Un henry 300 mg 9-19 mg by ity of capsule 12:24: mouth 3 [place] 20 (three) Medical times Branch daily. Indication s: 1 in the Am and 4 at bed time ziprasidone 2021-0 Yes 60mg Take 60 mg Univers 60 mg 9-19 by mouth ity of capsule 12:24: daily. [place] 20 Medical Branch PANTOPRAZOL 0 Yes 40mg Take 40 mg Univers E SODIUM 9-19 by mouth. ity of (PROTONIX 12:24: [place] ORAL) 20 Medical Branch tiZANidine 0 Yes 4mg Take 4 mg Un henry 4 mg 9-19 by mouth 2 ity of capsule 12:24: (two) [place] 20 times Medical daily. Branch IRON &IRON 0 Yes Take by Univ ers ASP 9-19 mouth. ity of GLY-LATOYAM 12:24: Indication [place] IN38 ORAL 20 s: iron Medical injectio Branch once a month propranolol 2021-0 Yes 20mg Take 20 mg Univers 20 mg 9-19 by mouth ity of tablet 12:24: daily. [place] [address] Medical Branch levothyroxi 0 Yes 50ug Take 50 Uni vers ne 50 mcg 9-19 mcg by ity of tablet 12:24: mouth [place] 20 every Medical morning. Branch hydrOXYzine 0 Yes 50mg Take 50 mg Univers 50 mg 9-19 by mouth ity of tablet 12:24: in the [place] 20 morning Medical and 50 mg Branch in the evening. zolpidem 0 Yes 12.5mg Take 12.5 Un henry 12.5 mg CR 9-19 mg by ity of tablet 12:24: mouth at [place] [address] bedtime as Medical needed for Branch Sleep. buspirone 2021-0 Yes 5mg Take 5 mg Uni vers HCl 9-19 by mouth ity of (BUSPIRONE 12:24: as needed. [place] ORAL) 20 Medical Branch LORazepam 2021-0 Yes .5mg Take 0.5 Univ ers 0.5 mg 9-19 mg by ity of tablet 12:24: mouth as [place] [address] needed. Medical Branch venlafaxine 0 Yes 75mg Take 75 mg Univers XR 75 mg 24 9-19 by mouth ity of hr capsule 12:24: daily with [place] 20 breakfast. Medical Branch lamoTRIgine 2021-0 Yes 200mg Take 200 U nivers 200 mg 9-19 mg by ity of tablet 12:24: mouth in [place] 20 the Medical morning. Branch gabapentin 2021-0 Yes 300mg Take 300 Un henry 300 mg 9-19 mg by ity of capsule 12:24: mouth 3 [place] 20 (three) Medical times Branch daily. Indication s: 1 in the Am and 4 at bed time ziprasidone 2021-0 Yes 60mg Take 60 mg Univers 60 mg 9-19 by mouth ity of capsule 12:24: daily. [place] [address] Medical Branch PANTOPRAZOL 2021-0 Yes 40mg Take 40 mg Univers E SODIUM 9-19 by mouth. ity of (PROTONIX 12:24: [place] ORAL) 20 Medical Branch tiZANidine 2021-0 Yes 4mg Take 4 mg Un henry 4 mg 9-19 by mouth 2 ity of capsule 12:24: (two) [place] 20 times Medical daily. Branch IRON &IRON 0 Yes Take by Univ ers ASP 9-19 mouth. ity of GLY-FA-MV,M 12:24: Indication [place] IN38 ORAL 20 s: iron Medical injectio Branch once a month propranolol 2021-0 Yes 20mg Take 20 mg Univers 20 mg 9-19 by mouth ity of tablet 12:24: daily. [place] [address] Medical Branch levothyroxi 0 Yes 50ug Take 50 Uni vers ne 50 mcg 9-19 mcg by ity of tablet 12:24: mouth [place] 20 every Medical morning. Branch hydrOXYzine 0 Yes 50mg Take 50 mg Univers 50 mg 9-19 by mouth ity of tablet 12:24: in the [place] 20 morning Medical and 50 mg Branch in the evening. zolpidem 0 Yes 12.5mg Take 12.5 Un henry 12.5 mg CR 9-19 mg by ity of tablet 12:24: mouth at [place] [address] bedtime as Medical needed for Branch Sleep. buspirone 0 Yes 5mg Take 5 mg Uni vers HCl 9-19 by mouth ity of (BUSPIRONE 12:24: as needed. [place] ORAL) 20 Medical Branch LORazepam 0 Yes .5mg Take 0.5 Univ ers 0.5 mg 9-19 mg by ity of tablet 12:24: mouth as [place] [address] needed. Medical Branch venlafaxine 0 Yes 75mg Take 75 mg Univers XR 75 mg 24 9-19 by mouth ity of hr capsule 12:24: daily with [place] 20 breakfast. Medical Branch lamoTRIgine 2021-0 Yes 200mg Take 200 U nivers 200 mg 9-19 mg by ity of tablet 12:24: mouth in [place] 20 the Medical morning. Branch gabapentin 2021-0 Yes 300mg Take 300 Un henry 300 mg 9-19 mg by ity of capsule 12:24: mouth 3 [place] 20 (three) Medical times Branch daily. Indication s: 1 in the Am and 4 at bed time ziprasidone 2021-0 Yes 60mg Take 60 mg Univers 60 mg 9-19 by mouth ity of capsule 12:24: daily. [place] [address] Medical Branch PANTOPRAZOL 2021-0 Yes 40mg Take 40 mg Univers E SODIUM 9-19 by mouth. ity of (PROTONIX 12:24: [place] ORAL) 20 Medical Branch tiZANidine Yes 4mg Take 4 mg Un henry 4 mg 9-19 by mouth 2 ity of capsule 12:24: (two) [place] 20 times Medical daily. Branch IRON &IRON Yes Take by Univ ers ASP 9-19 mouth. ity of GLY-FA-MV,M 12:24: Indication [place] IN38 ORAL 20 s: iron Medical injectio Branch once a month propranolol 0 Yes 20mg Take 20 mg Univers 20 mg 9-19 by mouth ity of tablet 12:24: daily. [place] 20 Medical Branch levothyroxi 0 Yes 50ug Take 50 Uni vers ne 50 mcg 9-19 mcg by ity of tablet 12:24: mouth [place] 20 every Medical morning. Branch hydrOXYzine Yes 50mg Take 50 mg Univers 50 mg 9-19 by mouth ity of tablet 12:24: in the [place] 20 morning Medical and 50 mg Branch in the evening. zolpidem Yes 12.5mg Take 12.5 Un henry 12.5 mg CR 9-19 mg by ity of tablet 12:24: mouth at [place] 20 bedtime as Medical needed for Branch Sleep. buspirone Yes 5mg Take 5 mg Uni vers HCl - by mouth ity of (BUSPIRONE 12:24: as needed. [place] ORAL) 20 Medical Branch LORazepam Yes .5mg Take 0.5 Univ ers 0.5 mg 9-19 mg by ity of tablet 12:24: mouth as [place] 20 needed. Medical Branch venlafaxine Yes 75mg Take 75 mg Univers XR 75 mg 24 06-21 by mouth ity of hr capsule 12:24: daily with [place] 20 breakfast. Medical Branch lamoTRIgine 0 Yes 200mg Take 200 U nivers 200 mg 9-19 mg by ity of tablet 12:24: mouth in [place] 20 the Medical morning. Branch FLUoxetine 2021-0 2021- No 40mg Take 40 mg Univers 40 mg 06-21 by mouth ity of capsule 11:03: 00:00 daily. [place] 56 :00 Medical Branch DICLOFENAC 2021-0 2021- No Take 50 mg Univers POTASSIUM 06-21 base by ity of (CAMBIA 11:03: 00:00 mouth. [place] ORAL) 56 :00 Medical Branch traMADoL 50 2021- No 4647 50mg Take 1 Uni vers mg tablet 06-21 tablet by ity of 00:00: 04:59 mouth [place] 00 :00 every 6 Medical (six) Branch hours as needed for Pain (scale 7-10) for up to 7 days. Indication s: acute pain traMADoL 50 2021- No 4647 50mg Take 1 Uni vers mg tablet 06-21 tablet by ity of 00:00: 04:59 mouth [place] 00 :00 every 6 Medical (six) Branch hours as needed for Pain (scale 7-10) for up to 7 days. Indication s: acute pain KCL No 40meq 40 mEq, Univers (KLOR-CON 06-20 Oral, ity of M20) tablet 13:45: 14:08 ONCE, 1 [place] 40 mEq 00 :00 dose, On Medical Sun Branch 06/20/22 at 0845, Routine potassium 2021- No 10meq 10 mEq, IV Univers chloride in 06-20 Piggyback, i ty of water 10 13:00: 02:58 Q4H, 4 [place] mEq/100 mL 00 :00 doses, Medical RTU 10 mEq First dose [facility] on 06/20/22 at 0800, Last dose on 06/20/22 at 2000, Administer over 60 Minutes, 100 mL acetaminoph Yes 650mg 650 mg, Un henry en 06-19 Oral, ity of (TYLENOL) 00:38: Q6HPRN, [place] tablet 650 04 Starting Medic al mg on Fri Branch 06/18/22 at 1938, Until Discontinu ed, Routine, Pain (scale 1-3), Temp > 38.5 C maalox:diph 2021- No 15mL 15 mL, Uni vers enhydrAMINE 06-18 Oral, ity of :lidocaine 02:00: 01:22 ONCE, 1 [place] 2 % viscous 00 :00 dose, On Medi carlos 1:1:1 [place] Branch (FIRST-MOUT 06/17/22 at [facility]) 2100, oral Routine suspension 15 mL HYDROcodone 0 Yes 1{tbl} 1 tablet, Univers -acetaminop 16 Oral, ity of hen (NORCO 01:00: Q6HPRN, [place] 5) 5-325 mg 34 Starting Medi carlos tablet 1 on [facility] Branch tablet 06/17/22 at 2000, Until Discontinu ed, Routine, Pain (scale 4-6) morpHINE (2 Yes 2mg 2 mg, Slow Univers mg/mL) 06-17 IV Push, ity of injection 2 20:14: Q6HPRN, [place] as mg 54 Starting Medical on [facility] Branch 06/17/22 at 1514, Until Discontinu ed, Routine, Pain (scale 7-10) maalox:diph 2021-0 2021- No 15mL 15 mL, Uni vers enhydrAMINE 06-1715 Oral, ity of :lidocaine 15:45: 15:51 ONCE, 1 [place] 2 % viscous 00 :00 dose, On Medi carlos 1:1:1 [facility] Branch (FIRST-MOUT 06/17/22 at [facility]) 1045, oral Routine suspension 15 mL pantoprazol Yes 40mg 40 mg, Univ ers e 06-17 Oral, ity of (PROTONIX) 14:00: DAILY, [place] EC tablet 00 First dose Medi carlos 40 mg on [facility] Branch 06/17/22 at 0900, Until Discontinu ed lamoTRIgine Yes 200mg 200 mg, Un henry (LAMICTAL) 15 Oral, ity of tablet 200 14:00: DAILY, [place] mg 00 First dose Medical on [facility] Branch 06/17/22 at 0900, Until Discontinu ed, Routine venlafaxine 0 Yes 75mg 75 mg, Univ ers XR (EFFEXOR 15 Oral, QAM ity of XR) 24 hr 13:00: WITH [place] capsule 75 00 BREAKFAST, Med ical mg First dose Branch on [facility] 06/17/22 at 0800, Until Discontinu ed, Routine tiZANidine Yes 4mg 4 mg, Univer s (ZANAFLEX) 15 Oral, BID, ity of tablet 4 mg 13:00: First dose [place] 00 on [facility] 06/17/22 at Branch 0800, Until Discontinu ed propranoloL 2021-0 Yes 20mg 20 mg, Univ ers (INDERAL) -15 Oral, BID, ity of tablet 20 13:00: First dose [place] mg 00 on [facility] 06/17/22 at Branch 0800, Until Discontinu ed, Routine heparin 2021-0 Yes 5000U 5,000 Univers (porcine) -15 Units, ity of injection 13:00: Subcutaneo [place] 5,000 Units 00 us, Q12H, Med ical First dose Branch on [facility] 06/17/22 at 0800, Until Discontinu ed, Routine levothyroxi 0 Yes 50ug 50 mcg, Uni vers ne 06-17 Oral, ity of (SYNTHROID) 11:00: QAM-0600, [place] tablet 50 00 First dose Medi carlos mcg on [facility] 06/17/22 at 0600, Until Discontinu ed, Routine ziprasidone Yes 120mg 120 mg, Un henry (GEODON) 15 Oral, QHS, ity o f capsule 120 08:30: First dose [place] mg 00 on [facility] 06/17/22 at Branch 0330, Until Discontinu ed, Routine NaCl 0.9% 2021- No 1000mL at 100 Uni vers (NS) IV 06-17 09-17 mL/hr, IV ity of infusion 07:15: 22:39 Infusion, [place] as 1,000 mL 00 :15 CONTINUOUS Medic al , Starting Branch on [facility] 06/17/22 at 0215, Until 06/19/22 at 1739, Routine NaCl 0.9% 0 2021- No 1000mL at 999 Uni vers (NS) bolus 06-17 09-15 mL/hr, ity of infusion 07:15: 07:48 1,000 mL, Faustino as 1,000 mL 00 :04 IV Medical Piggyback, Branch ONCE, 1 dose, On [facility] 06/17/22 at 0215, RUBEN gabapentin 0 Yes 300mg 300 mg, Uni vers (NEURONTIN) 15 Oral, TID, it y of capsule 300 06:30: First dose [place] mg 00 on [facility] 06/17/22 at Branch 0130, Until Discontinu ed, Routine hydrOXYzine 0 Yes 25mg 25 mg, Univ ers (ATARAX) 06-17 Oral, ity of tablet 25 06:19: Q6HPRN, [place] mg 36 Starting Medical on [facility] Branch 06/17/22 at 0119, Until Discontinu ed, Routine, Anxiety zolpidem 0 Yes 10mg 10 mg, Univers (AMBIEN) 06-17 Oral, ity of tablet 10 06:18: QHSPRN, [place] mg 39 Starting Medical on [facility] Branch 06/17/22 at 0118, Until Discontinu ed, Insomnia LORazepam 0 Yes .5mg 0.5 mg, Unive rs (ATIVAN) 06-17 Oral, ity of tablet 0.5 06:16: BIDPRN, [place] 51 Starting Medical on [facility] Branch 06/17/22 at 0116, Until Discontinu ed, Routine, Agitation sennosides 0 Yes 8.6mg 8.6 mg, Uni vers (SENOKOT) 06-17 Oral, BID, ity of tablet 8.6 06:15: First dose [place] mg 00 on [facility] 06/17/22 at Branch 0115, Until Discontinu ed, Routine docusate 0 Yes 100mg 100 mg, Unive rs (COLACE) 06-17 Oral, BID, ity o f capsule 100 06:15: First dose [place] mg 00 on [facility] 06/17/22 at Branch 0115, Until Discontinu ed, Routine pantoprazol 2021- No 40mg 40 mg, Uni vers e 06-17 09-18 Slow IV ity of (PROTONIX) 06:15: 15:58 Push, [place] injection 00 :22 Q12H, Medical 40 mg First dose Branch on [facility] 06/17/22 at 0115, Until Discontinu ed ondansetron Yes 4mg 4 mg, Slow Univers (ZOFRAN 06-17 IV Push, ity of (PF)) 06:06: Q6HPRN, [place] injection 4 09 Starting Medi carlos mg on [facility] Branch 06/17/22 at 0106, Until Discontinu ed, Routine, Nausea and Vomiting (N/V) morpHINE (4 2021- No 4mg 4 mg, Slow Univers mg/mL) 06-17 IV Push, ity of injection 4 03:15: 03:21 ONCE, 1 [place] mg 00 :00 dose, On Medical Wed Branch 06/16/22 at 2215, STAT ondansetron No 4mg 4 mg, Slow Univers (ZOFRAN 06-17 IV Push, ity of (PF)) 02:15: 01:17 ONCE, 1 [place] injection 4 00 :00 dose, On Medi carlos mg Wed Branch 06/16/22 at 2115, RUBEN morpHINE (2 No 4mg 4 mg, Slow Univers mg/mL) 06-17 IV Push, ity of injection 4 02:15: 01:17 ONCE, 1 [place] mg 00 :[place] dose, On Medical Wed Branch 06/16/22 at 2115, STAT iopamidol No [id number] 70mL 70 mL, U nivers (ISOVUE 06-17 Intravenou ity o f 370-500 mL) 01:45: 01:45 s, ONCE, 1 [place] injection 00 :00 dose, On Medica l 70 mL Wed Branch 06/16/22 at 2045, Routine piperacilli No 3.375g 3.375 g, Univers n-tazobacta 06-17 IV ity of m (ZOSYN) 01:30: 01:52 Piggyback, [place] 3.375 g in 00 :00 ONCE, 1 Medica l NaCl 0.9% dose, On Branch (NS) 50 mL Wed MINI-BAG 06/16/22 at 2030, Administer over 30 Minutes, 50 mL
R ranulfo for Anti-Infec tive: Empiric Therapy for Suspected Infection< br>Empiric Therapy Site: Abdominal< br>Duratio n of therapy: 72 hours NaCl 0.9% 2021- No 1000mL at 999 Uni vers (NS) bolus 06-17 mL/hr, ity of infusion 00:00: 02:59 1,000 mL, Faust[place] as 1,000 mL 00 :00 IV Medical Infusion, Branch ONCE, 1 dose, On 06/16/22 at 1900, STAT ibuprofen 2021-0 2021- No 600mg 600 mg, Uni vers (IBU) 06-16 09-15 Oral, ity of tablet 600 23:00: 00:11 ONCE, 1 [place] as mg 00 :00 dose, On Medical Wed Branch 06/16/22 at 1800, RUBEN clonazePAM 0 Yes .5mg Take 0.[address] [facility] (KLONOPIN) 7-13 mg by [facility] MG 13:36: mouth 2 Medical tablet 47 (two) Center times daily as needed for Anxiety. gabapentin Yes 600mg Q.[id number] Take [address] [facility] (NEURONTIN) 7-13 [id number] mg by L u[facility] 600 MG 13:36: 3D mouth 3 Medical tablet 47 (three) Center times daily. ziprasidone 0 Yes 120mg QD Take [address] (GEODON) 60 7-13 mg by [facility] MG capsule 13:36: mouth Medica l 47 nightly . Center propranolol 0 Yes 10mg Q.5D Take [address] [facility] (INDERAL) 7-13 by mouth 2 [facility] 10 MG 13:36: (two) Medical tablet 47 times Center daily. pantoprazol 0 Yes 40mg QD Take [address] [facility] e 7-13 by mouth [facility] (PROTONIX) 13:36: daily. Medic al 40 MG 47 Center tablet FLUoxetine 0 Yes 40mg QD Take [address] (PROZAC) 40 7-13 by mouth Luke s MG capsule 13:36: daily. Medic al 47 Center tiZANidine 0 Yes 4mg QD Take [address] (ZANAFLEX) 7-13 by mouth [facility] 4 MG tablet 13:36: nightly. Me dical 47 Center buPROPion 0 Yes 150mg QD Take [address] [facility] (WELLBUTRIN 7-13 mg by [facility] XL) 150 MG 13:36: mouth Medica l 24 hr 47 daily. Center tablet levothyroxi 0 Yes 50ug Take [address] [facility] ne 7-13 mcg by [facility] (SYNTHROID, 13:36: mouth Medic al LEVOTHROID) 47 Every Center 50 MCG morning on tablet an empty stomach. hydrOXYzine 2022-0 Yes 50mg Take [address] [facility] (VISTARIL) 7-13 by mouth [facility] 50 MG 13:36: once at Medical capsule 47 bedtime. [place] LORazepam Yes .5mg Take 0.[address] [facility] (ATIVAN) 6-16 mg by [facility] 0.5 MG 00:00: mouth 2 Medical tablet 00 (two) Center times daily as needed. zolpidem Yes [facility] (AMBIEN) 10 3-23 [facility] mg tablet 00:00: Medical 00 [place] lamoTRIgine Yes [facility] (LaMICtal) 3-15 [facility] 200 MG 00:00: Medical tablet 00 [place] venlafaxine Yes [facility] (EFFEXOR) 3-04 [facility] 75 MG 00:00: Medical tablet 00 [place] iopamidol 2021- No [id number] 100mL 100 mL, Univers (ISOVUE -14 14 Intravenou ity o f 370-500 mL) 21:47: 21:46 s, ONCE, 1 [place] injection 00 :00 dose, On Medica l 100 mL Fri Branch 10/16/21 at 1600, Routine water for 2020-10 Yes PRN, Univers irrigation - Starting ity o f irrigation 17:03: on e [place] solution 00 09/22/21 Medical at 1103, Branch Until Discontinu ed, Routine, Intra-op simethicone 2020-10 Yes PRN, Univer s (GAS RELIEF - Starting ity of (SIMETHICON 17:03: on Tue [place] E)) 40 00 09/22/21 Medical mg/0.6 mL at 1103, Branch drops Until Discontinu ed, Routine, Intra-op water for 2020-10- No PRN, Univers irrigation 2-09-22 Starting ity of irrigation 17:03: 20:23 on Tue [place] solution 00 :39 09/22/21 Medical at 1103, Branch Until Tue09/22/21 at 1423, Routine, Intra-op simethicone 2020-10- No PRN, Unive rs (GAS RELIEF 2-09-22 Starting ity of (SIMETHICON 17:03: 20:23 on Tue Faustino as E)) 40 00 :39 09/22/21 Medical mg/0.6 mL at 1103, Branch drops Until Tue09/22/21 at 1423, Routine, Intra-op lactated 2020-10- No 1000mL at 42 [facility] rs ringers IV 2-21 12-21 mL/hr, ity of infusion 16:45: 16:47 1,000 mL, Fa[place] as 1,000 mL 00 :00 IV Medical Infusion, Branch ONCE, 1 dose, On Tue09/22/21 at 1045, Routine, DSU Pre-op lactated 2020-10- No 1000mL at 42 [facility] rs ringers IV 2-21 12-21 mL/hr, ity of infusion 16:45: 16:47 1,000 mL, [place] as 1,000 mL 00 :00 IV Medical Infusion, Branch ONCE, 1 dose, On Tue09/22/21 at 1045, Routine, DSU Pre-op FLUoxetine 2020-10 Yes 40mg Take 40 mg U nivers (PROZAC) 40 2-21 by mouth ity of mg capsule 12:23: daily. [address] gabapentin 2020-10 Yes 300mg Take 300 Un henry 300 mg 2-21 mg by ity of capsule 12:23: mouth 3 [place] 30 (three) Medical times Branch daily. Indication s: 1 in the Am and 4 at bed time ziprasidone 2020-10 Yes 60mg Take 60 mg Univers (GEODON) 60 2-21 by mouth ity of mg capsule 12:23: daily. [address] PANTOPRAZOL 2020-10 Yes 40mg Take 40 mg Univers E SODIUM 2-21 by mouth. ity of (PROTONIX 12:23: [place] ORAL) 30 Medical Branch tiZANidine 2020-10 Yes 4mg Take 4 mg Un henry (ZANAFLEX) 2-21 by mouth 2 ity of 4 mg 12:23: (two) [place] capsule 30 times Medical daily. Branch IRON &IRON 2020-10 Yes Take by [facility] ers ASP 2-21 mouth. ity of GLY-FA-MV,M 12:23: Indication [place] IN38 ORAL 30 s: iron Medical injectio Branch once a month DICLOFENAC 2020-10 Yes Take 50 mg U nivers POTASSIUM 2-21 base by ity of (CAMBIA 12:23: mouth. [place] ORAL) 30 Medical Branch propranolol 2020-10 Yes 20mg Take 20 mg Univers 20 mg 2-21 by mouth ity of tablet 12:23: daily. [address] Branch FLUoxetine 2020-10 Yes 40mg Take 40 mg U nivers (PROZAC) 40 2-21 by mouth ity of mg capsule 12:23: daily. [address] gabapentin 2020-10 Yes 300mg Take 300 Un henry 300 mg 2-21 mg by ity of capsule 12:23: mouth 3 [place] 30 (three) Medical times [place] daily. Indication s: 1 in the Am and 4 at bed time ziprasidone 2020-10 Yes 60mg Take 60 mg Univers (GEODON) 60 2-21 by mouth ity of mg capsule 12:23: daily. [address] PANTOPRAZOL 2020-10 Yes 40mg Take 40 mg Univers E SODIUM 2-21 by mouth. ity of (PROTONIX 12:23: [address] tiZANidine 2020-10 Yes 4mg Take 4 mg Un henry (ZANAFLEX) 2-21 by mouth 2 ity of 4 mg 12:23: (two) [place] capsule 30 times Medical daily. Branch IRON &IRON 2020-10 Yes Take by Univ ers ASP 2-21 mouth. ity of GLY-HAROON-JAZMYN,M 12:23: Indication [place] IN ORAL 30 s: iron Medical injectio Branch once a month DICLOFENAC 2020-10 Yes Take 50 mg U nivers POTASSIUM 2-21 base by ity of (CAMBIA 12:23: mouth. [address] propranolol 2020-10 Yes 20mg Take 20 mg Univers 20 mg 2-21 by mouth ity of tablet 12:23: daily. [address] FLUoxetine 2020-10 Yes 40mg Take 40 mg U nivers (PROZAC) 40 2-21 by mouth ity of mg capsule 12:23: daily. [address] gabapentin 2020-10 Yes 300mg Take 300 Un henry 300 mg 2-21 mg by ity of capsule 12:23: mouth 3 [place] [id number] (three) Medical times [place] daily. Indication s: 1 in the Am and 4 at bed time ziprasidone 2020-10 Yes 60mg Take 60 mg Univers (GEODON) 60 2-21 by mouth ity of mg capsule 12:23: daily. [address] PANTOPRAZOL 2020-10 Yes 40mg Take 40 mg Univers E SODIUM 2-21 by mouth. ity of (PROTONIX 12:23: [place] ORAL) [address] [place] [address] Branch tiZANidine 2020-10 Yes 4mg Take 4 mg Un henry (ZANAFLEX) 2-21 by mouth 2 ity of 4 mg 12:23: (two) [place] capsule 30 times Medical daily. Branch IRON &IRON 2020-10 Yes Take by [facility] ers ASP 2-21 mouth. ity of GLY-FA-MV,M 12:23: Indication [place] IN38 ORAL 30 s: iron Medical injectio Branch once a month DICLOFENAC 2020-10 Yes Take 50 mg U nivers POTASSIUM 2-21 base by ity of (CAMBIA 12:23: mouth. [place] ORAL) Medical [place] propranolol 2020-10 Yes 20mg Take 20 mg Univers 20 mg 2-21 by mouth ity of tablet 12:23: daily. [address] FLUoxetine 2020-10 Yes 40mg Take 40 mg U nivers (PROZAC) 40 2-21 by mouth ity of mg capsule 12:23: daily. [address] gabapentin 2020-10 Yes 300mg Take 300 Un henry 300 mg 2-21 mg by ity of capsule 12:23: mouth 3 [place] [address] (three) Medical times Branch daily. Indication s: 1 in the Am and 4 at bed time ziprasidone 2020-10 Yes 60mg Take 60 mg Univers (GEODON) 60 2-21 by mouth ity of mg capsule 12:23: daily. [address] PANTOPRAZOL 2020-10 Yes 40mg Take 40 mg Univers E SODIUM 2-21 by mouth. ity of (PROTONIX 12:23: [place] ORAL) [address] [place] [address] Branch tiZANidine 2020-10 Yes 4mg Take 4 mg Un henry (ZANAFLEX) 2-21 by mouth 2 ity of 4 mg 12:23: (two) [place] capsule 30 times Medical daily. Branch IRON &IRON 2020-10 Yes Take by [facility] ers ASP 2-21 mouth. ity of GLY-FA-MV,M 12:23: Indication [place] IN38 ORAL 30 s: iron Medical injectio Branch once a month DICLOFENAC 2020-10 Yes Take 50 mg U nivers POTASSIUM 2-21 base by ity of (CAMBIA 12:23: mouth. [place] ORAL) [address] [place] [address] Branch propranolol 2020-10 Yes 20mg Take 20 mg Univers 20 mg 2-21 by mouth ity of tablet 12:23: daily. [address] FLUoxetine 2020-10 Yes 40mg Take 40 mg U nivers (PROZAC) 40 2-21 by mouth ity of mg capsule 12:23: daily. [address] gabapentin 2020-10 Yes 300mg Take 300 Un henry 300 mg 2-21 mg by ity of capsule 12:23: mouth 3 [place] 30 (three) Medical times Branch daily. Indication s: 1 in the Am and 4 at bed time ziprasidone 2020-10 Yes 60mg Take 60 mg Univers (GEODON) 60 2-21 by mouth ity of mg capsule 12:23: daily. [address] PANTOPRAZOL 2020-10 Yes 40mg Take 40 mg Univers E SODIUM 2-21 by mouth. ity of (PROTONIX 12:23: [place] ORAL) [address] [place] [address] tiZANidine 2020-10 Yes 4mg Take 4 mg Un henry (ZANAFLEX) 2-21 by mouth 2 ity of 4 mg 12:23: (two) [place] capsule 30 times Medical daily. Branch IRON &IRON 2020-10 Yes Take by Univ ers ASP 2-21 mouth. ity of GLY-HAROON-JAZMYNM 12:23: Indication [place] IN ORAL 30 s: iron Medical injectio Branch once a month DICLOFENAC 2020-10 Yes Take 50 mg U nivers POTASSIUM 2-21 base by ity of (CAMBIA 12:23: mouth. [facility]) [address] [place] [address] propranolol 2020-10 Yes 20mg Take 20 mg Univers 20 mg 2-21 by mouth ity of tablet 12:23: daily. [address] water for 2020-10- No PRN, Univers irrigation 10-20 Starting ity of irrigation 18:20: 21:01 on [place] solution 00 :23 08/20/21 Medical at 1220, Branch Until [place] 08/20/21 at 1501, Routine, Intra-op simethicone 2020-10- No PRN, Unive rs (GAS RELIEF 10-20 Starting ity of (SIMETHICON 18:20: 21:01 on [place] Faustino as E)) 40 00 :23 08/20/21 Medical mg/0.6 mL at 1220, Branch drops Until [place] 08/20/21 at 1501, Routine, Intra-op lactated 2020-10- No 1000mL at 42 [facility] rs ringers IV 1-18 11-18 mL/hr, ity of infusion 18:00: 17:59 1,000 mL, Faust[place] as 1,000 mL 00 :00 IV Medical Infusion, Branch ONCE, 1 dose, On [place] 08/20/21 at 1200, Routine, DSU Pre-op lactated 2020-10- No 1000mL at 42 [facility] rs ringers IV 1-18 11-18 mL/hr, ity of infusion 18:00: 17:59 1,000 mL, [place] as 1,000 mL 00 :00 IV Medical Infusion, Branch ONCE, 1 dose, On [place] 08/20/21 at 1200, Routine, DSU Pre-op FLUoxetine 2020-10 Yes 40mg Take 40 mg U nivers (PROZAC) 40 1-18 by mouth ity of mg capsule 13:01: daily. [address] Branch gabapentin 2020-10 Yes 300mg Take 300 Un henry 300 mg 1-18 mg by ity of capsule 13:01: mouth 3 [place] [address] (three) Medical times Branch daily. Indication s: 1 in the Am and 4 at bed time ziprasidone 2020-10 Yes 60mg Take 60 mg Univers (GEODON) 60 1-18 by mouth ity of mg capsule 13:01: daily. [address] PANTOPRAZOL 2020-10 Yes 40mg Take 40 mg Univers E SODIUM 1-18 by mouth. ity of (PROTONIX 13:01: [place] ORAL) 23 Medical Branch tiZANidine 2020-10 Yes 4mg Take 4 mg Un henry (ZANAFLEX) 1-18 by mouth 2 ity of 4 mg 13:01: (two) [place] capsule 23 times Medical daily. Branch IRON &IRON 2020-10 Yes Take by [facility] ers ASP 1-18 mouth. ity of GLY-FA-MV,M 13:01: Indication [place] IN ORAL 23 s: iron Medical injectio Branch once a month DICLOFENAC 2020-10 Yes Take 50 mg U nivers POTASSIUM 1-18 base by ity of (CAMBIA 13:01: mouth. [place] ORAL) 23 Medical Branch propranolol 2020-10 Yes 20mg Take 20 mg Univers 20 mg 1-18 by mouth ity of tablet 13:01: daily. [address] Branch FLUoxetine 2020-10 Yes 40mg Take 40 mg U nivers (PROZAC) 40 1-18 by mouth ity of mg capsule 13:01: daily. [address] gabapentin 2020-10 Yes 300mg Take 300 Un henry 300 mg 1-18 mg by ity of capsule 13:01: mouth 3 [place] [address] (three) Medical times [place] daily. Indication s: 1 in the Am and 4 at bed time ziprasidone 2020-10 Yes 60mg Take 60 mg Univers (GEODON) 60 1-18 by mouth ity of mg capsule 13:01: daily. [address] PANTOPRAZOL 2020-10 Yes 40mg Take 40 mg Univers E SODIUM 1-18 by mouth. ity of (PROTONIX 13:01: [place] ORAL) [address] [place] [address] tiZANidine 2020-10 Yes 4mg Take 4 mg Un henry (ZANAFLEX) 1-18 by mouth 2 ity of 4 mg 13:01: (two) [place] capsule 23 times [facility] daily. Branch IRON &IRON 2020-10 Yes Take by Univ ers ASP 1-18 mouth. ity of GLY-FA-MV,M 13:01: Indication [place] IN ORAL 23 s: iron Medical injectio Branch once a month DICLOFENAC 2020-10 Yes Take 50 mg U nivers POTASSIUM 1-18 base by ity of (CAMBIA 13:01: mouth. [address] propranolol 2020-10 Yes 20mg Take 20 mg Univers 20 mg 1-18 by mouth ity of tablet 13:01: daily. [address] FLUoxetine 2020-10 Yes 40mg Take 40 mg U nivers (PROZAC) 40 1-18 by mouth ity of mg capsule 13:01: daily. [address] gabapentin 2020-10 Yes 300mg Take 300 Un henry 300 mg 1-18 mg by ity of capsule 13:01: mouth 3 [place] [address] (three) Medical times [place] daily. Indication s: 1 in the Am and 4 at bed time ziprasidone 2020-10 Yes 60mg Take 60 mg Univers (GEODON) 60 1-18 by mouth ity of mg capsule 13:01: daily. [place] 23 Medical Branch PANTOPRAZOL 2020-10 Yes 40mg Take 40 mg Univers E SODIUM 1-18 by mouth. ity of (PROTONIX 13:01: [place] ORAL) 23 Medical Branch tiZANidine 2020-10 Yes 4mg Take 4 mg Un henry (ZANAFLEX) 1-18 by mouth 2 ity of 4 mg 13:01: (two) [place] capsule 23 times Medical daily. Branch IRON &IRON 2020-10 Yes Take by Univ ers ASP 1-18 mouth. ity of GLY-FA-MV,M 13:01: Indication [place] IN38 ORAL 23 s: iron Medical injectio Branch once a month DICLOFENAC 2020-10 Yes Take 50 mg U nivers POTASSIUM 1-18 base by ity of (CAMBIA 13:01: mouth. [place] ORAL) 23 Medical Branch propranolol 2020-10 Yes 20mg Take 20 mg Univers 20 mg 1-18 by mouth ity of tablet 13:01: daily. [address] Branch Sulfamethox Sulfamethox 2020- No 1{table BID Sulfametho azole-Trime azole-Trime 9-30 10-05 t} xazole-Tri thoprim thoprim 00:00: 00:00 methoprim 800-160 MG 800-160 MG 00 :00 800-160 MG traMADol traMADol 2019-10 No 1{table traMADol HCl 50 MG HCl 50 MG 0-19 t} HCl 50 MG 00:00: 00 traMADol traMADol 2019-10 No 1{table traMADol HCl 50 MG HCl 50 MG 0-19 t} HCl 50 MG 00:00: 00 traMADol traMADol 2019-10 No 1{table traMADol HCl 50 MG HCl 50 MG 0-19 t} HCl 50 MG 00:00: 00 traMADol traMADol 2019-10 No 1{table traMADol HCl 50 MG HCl 50 MG 0-19 t} HCl 50 MG 00:00: 00 traMADol traMADol 2019-10 No 1{table traMADol HCl 50 MG HCl 50 MG 0-19 t} HCl 50 MG 00:00: 00 traMADol traMADol 2019-10 No 1{table traMADol HCl 50 MG HCl 50 MG 0-19 t} HCl 50 MG 00:00: 00 traMADol traMADol 2019-10 No 1{table traMADol HCl 50 MG HCl 50 MG 0-19 t} HCl 50 MG 00:00: 00 traMADol traMADol No 1{table traMADol HCl 50 MG HCl 50 MG 0-19 t} HCl 50 MG 00:00: 00 traMADol traMADol 2019- No 1{table traMADol HCl 50 MG HCl 50 MG 0-19 t} HCl 50 MG 00:00: 00 traMADol traMADol 2019- No 1{table traMADol HCl 50 MG HCl 50 MG 0-19 t} HCl 50 MG 00:00: 00 traMADol traMADol 2019- No 1{table traMADol HCl 50 MG HCl 50 MG 0-19 t} HCl 50 MG 00:00: 00 traMADol traMADol 2019- No 1{table traMADol HCl 50 MG HCl 50 MG 0-19 t} HCl 50 MG 00:00: 00 traMADol traMADol 2019- No 1{table traMADol HCl 50 MG HCl 50 MG 0-19 t} HCl 50 MG 00:00: 00 traMADol traMADol 2019-10 No 1{table traMADol HCl 50 MG HCl 50 MG 0-19 t} HCl 50 MG 00:00: 00 traMADol traMADol 2019- No 1{table traMADol HCl 50 MG HCl 50 MG 0-19 t} HCl 50 MG 00:00: 00 traMADol traMADol 2019-10 No 1{table traMADol HCl 50 MG HCl 50 MG 0-19 t} HCl 50 MG 00:00: 00 traMADol traMADol 2019- No 1{table traMADol HCl 50 MG HCl 50 MG 0-19 t} HCl 50 MG 00:00: 00 traMADol traMADol 2019- No 1{table traMADol HCl 50 MG HCl 50 MG 0-19 t} HCl 50 MG 00:00: 00 traMADol traMADol 2019- No 1{table traMADol HCl 50 MG HCl 50 MG 0-19 t} HCl 50 MG 00:00: 00 traMADol traMADol 2019- No 1{table traMADol HCl 50 MG HCl 50 MG 0-19 t} HCl 50 MG 00:00: 00 traMADol traMADol 2019- No 1{table traMADol HCl 50 MG HCl 50 MG 0-19 t} HCl 50 MG 00:00: 00 traMADol traMADol 2019- No 1{table traMADol HCl 50 MG HCl 50 MG 0-19 t} HCl 50 MG 00:00: 00 traMADol traMADol 2019- No 1{table traMADol HCl 50 MG HCl 50 MG 0-19 t} HCl 50 MG 00:00: 00 traMADol traMADol 2019- No 1{table traMADol HCl 50 MG HCl 50 MG 0-19 t} HCl 50 MG 00:00: 00 traMADol traMADol 2019- No 1{table traMADol HCl 50 MG HCl 50 MG 0-19 t} HCl 50 MG 00:00: 00 traMADol traMADol 2019- No 1{table traMADol HCl 50 MG HCl 50 MG 0-16 t_as_ne HCl 50 MG 00:00: eded} traMADol traMADol 2019- No 1{table traMADol HCl 50 MG HCl 50 MG 0-16 t_as_ne HCl 50 MG 00:00: eded} traMADol traMADol 2019- No 1{table traMADol HCl 50 MG HCl 50 MG 0-16 t_as_ne HCl 50 MG 00:00: eded} traMADol traMADol 2019- No 1{table traMADol HCl 50 MG HCl 50 MG 0-16 t_as_ne HCl 50 MG 00:00: eded} traMADol traMADol 2019- No 1{table traMADol HCl 50 MG HCl 50 MG 0-16 t_as_ne HCl 50 MG 00:00: eded} traMADol traMADol 2019- No 1{table traMADol HCl 50 MG HCl 50 MG 0-16 t_as_ne HCl 50 MG 00:00: eded} traMADol traMADol 2019- No 1{table traMADol HCl 50 MG HCl 50 MG 0-16 t_as_ne HCl 50 MG 00:00: eded} traMADol traMADol 2019- No 1{table traMADol HCl 50 MG HCl 50 MG 0-16 t_as_ne HCl 50 MG 00:00: eded} 00 traMADol traMADol 2019- No 1{table traMADol HCl 50 MG HCl 50 MG 0-16 t_as_ne HCl 50 MG 00:00: eded} 00 traMADol traMADol 2019- No 1{table traMADol HCl 50 MG HCl 50 MG 0-16 t_as_ne HCl 50 MG 00:00: eded} 00 traMADol traMADol 2019- No 1{table traMADol HCl 50 MG HCl 50 MG 0-16 t_as_ne HCl 50 MG 00:00: eded} 00 traMADol traMADol 2019- No 1{table traMADol HCl 50 MG HCl 50 MG 0-16 t_as_ne HCl 50 MG 00:00: eded} 00 traMADol traMADol 2019- No 1{table traMADol HCl 50 MG HCl 50 MG 0-16 t_as_ne HCl 50 MG 00:00: eded} 00 traMADol traMADol 2019- No 1{table traMADol HCl 50 MG HCl 50 MG 0-16 t_as_ne HCl 50 MG 00:00: eded} 00 traMADol traMADol 2019- No 1{table traMADol HCl 50 MG HCl 50 MG 0-16 t_as_ne HCl 50 MG 00:00: eded} 00 traMADol traMADol 2019- No 1{table traMADol HCl 50 MG HCl 50 MG 0-16 t_as_ne HCl 50 MG 00:00: eded} 00 traMADol traMADol 2019- No 1{table traMADol HCl 50 MG HCl 50 MG 0-16 t_as_ne HCl 50 MG 00:00: eded} 00 traMADol traMADol 2019- No 1{table traMADol HCl 50 MG HCl 50 MG 0-16 t_as_ne HCl 50 MG 00:00: eded} 00 traMADol traMADol 2019- No 1{table traMADol HCl 50 MG HCl 50 MG 0-16 t_as_ne HCl 50 MG 00:00: eded} 00 traMADol traMADol 2019- No 1{table traMADol HCl 50 MG HCl 50 MG 0-16 t_as_ne HCl 50 MG 00:00: eded} 00 traMADol traMADol 2019- No 1{table traMADol HCl 50 MG HCl 50 MG 0-16 t_as_ne HCl 50 MG 00:00: eded} 00 traMADol traMADol 2019- No 1{table traMADol HCl 50 MG HCl 50 MG 0-16 t_as_ne HCl 50 MG 00:00: eded} 00 traMADol traMADol 2019- No 1{table traMADol HCl 50 MG HCl 50 MG 0-16 t_as_ne HCl 50 MG 00:00: eded} 00 traMADol traMADol 2019- No 1{table traMADol HCl 50 MG HCl 50 MG 0-16 t_as_ne HCl 50 MG 00:00: eded} 00 traMADol traMADol 2019- No 1{table traMADol HCl 50 MG HCl 50 MG 0-16 t_as_ne HCl 50 MG 00:00: eded} 00 amLODIPine 2017-0 Yes 5mg Take 1 Unive rs 5 mg tablet 9-08 tablet by ity of 00:00: mouth [place] 00 daily. Medical Branch amLODIPine 2017-0 Yes 5mg Take 1 Unive rs 5 mg tablet 9-08 tablet by ity of 00:00: mouth [place] 00 daily. Medical Branch amLODIPine 2017-0 Yes 5mg Take 1 Unive rs 5 mg tablet 9-08 tablet by ity of 00:00: mouth [place] 00 daily. Medical Branch amLODIPine 2017-0 Yes 5mg Take 1 Unive rs 5 mg tablet 9-08 tablet by ity of 00:00: mouth [place] 00 daily. Medical Branch amLODIPine 2017-0 Yes 5mg Take 1 Unive rs 5 mg tablet 9-08 tablet by ity of 00:00: mouth [place] 00 daily. Medical Branch amLODIPine 2017-0 Yes 5mg Take 1 Unive rs 5 mg tablet 9-08 tablet by ity of 00:00: mouth [place] 00 daily. Medical Branch amLODIPine 2017-0 Yes 5mg Take 1 Unive rs 5 mg tablet 9-08 tablet by ity of 00:00: mouth [place] 00 daily. Medical Branch amLODIPine 2017-0 Yes 5mg Take 1 [facility] 5 mg tablet 9-08 tablet by [facility] of 00:00: mouth [place] 00 daily. [facility] amLODIPine 2017-0 2022- No 5mg Take 1 [facility] 5 mg tablet 06-10-19 tablet by it y of 00:00: 00:00 mouth [place] 00 :00 daily. [facility] Gabapentin Gabapentin No Gabapentin 600 MG 600 MG 600 MG Propranolol Propranolol No 1{table BID Propranolo HCl 20 MG HCl 20 MG t_on_an l HCl 20 _empty_ MG stomach } Wellbutrin Wellbutrin No 1{table QD Wellbutrin XL 150 MG XL 150 MG t_in_ XL 150 MG e_morni ng} Promethazin Promethazin No QID Promethazi e-DM e-DM ne-DM 6.25-15 6.25-15 6.25-15 MG/5ML MG/5ML MG/5ML baclofen baclofen No baclofen 10mg 10mg 10mg Pantoprazol Pantoprazol No Pantoprazo e Sodium 40 e Sodium 40 le Sodium MG MG 40 MG lamoTRIgine lamoTRIgine No 1{table QD lamoTRIgin 100 MG 100 MG t} e 100 MG FLUoxetine FLUoxetine No 1{capsu QD FLUoxetine HCl 60 MG HCl 60 MG le} HCl 60 MG Ziprasidone Ziprasidone No 2{capsu QD Ziprasidon HCl 60 MG HCl 60 MG le_with e HCl 60 _food} MG Vitamin D3 Vitamin D3 No 1{capsu QD Vitamin D3 2000 UNIT 2000 UNIT le} 2000 UNIT Propranolol Propranolol No Propranolo HCl 10 MG HCl 10 MG l HCl 10 MG tiZANidine tiZANidine No 1{table tiZANidine HCl 4 MG HCl 4 MG t} HCl 4 MG [place] No [place] Effexor Effexor No Effexor Geodon 60 Geodon 60 No 1{capsu BID Geodon 60 MG MG le_with MG _food} Iron Iron No Iron Supplement Supplement Supplement Amitiza 24 Amitiza 24 No 1{capsu BID Amitiza 24 MCG MCG le_with MCG _food} Levothyroxi Levothyroxi No Levothyrox ne Sodium ne Sodium ine Sodium 50 MCG 50 MCG 50 MCG clonazePAM clonazePAM No 1{table clonazePAM 0.5 MG 0.5 MG t_at_be 0.5 MG dtime} Geodon 60 Geodon 60 No 1{capsu BID Geodon 60 MG MG le_with MG _food} Gabapentin Gabapentin No Gabapentin 600 MG 600 MG 600 MG Effexor Effexor No Effexor Zolpidem Zolpidem No 1{table QD Zolpidem Tartrate 10 Tartrate 10 t_at_be Tartrate MG MG dtime_a 10 MG s_neede d} Levothyroxi Levothyroxi No QD Levothyrox ne Sodium ne Sodium ine Sodium 50 MCG 50 MCG 50 MCG Vitamin D3 Vitamin D3 No 1{capsu QD Vitamin D3 2000 UNIT 2000 UNIT le} 2000 UNIT tiZANidine tiZANidine No 1{table tiZANidine HCl 4 MG HCl 4 MG t} HCl 4 MG Propranolol Propranolol No Propranolo HCl 10 MG HCl 10 MG l HCl 10 MG Levothyroxi Levothyroxi No Levothyrox ne Sodium ne Sodium ine Sodium 50 MCG 50 MCG 50 MCG lamoTRIgine lamoTRIgine No 1{table QD lamoTRIgin 200 MG 200 MG t} e 200 MG [place] Propranolol Propranolol No 1{table BID Propranolo HCl 20 MG HCl 20 MG t_on_an l HCl 20 _empty_ MG stomach } Pantoprazol Pantoprazol No Pantoprazo e Sodium 40 e Sodium 40 le Sodium MG MG 40 MG Venlafaxine Venlafaxine No 1{table QD Venlafaxin HCl 75 MG HCl 75 MG t_with_ e HCl 75 food} MG hydrOXYzine hydrOXYzine No 1{table hydrOXYzin HCl 50 MG HCl 50 MG t_as_ne e HCl 50 eded} MG Amitiza 24 Amitiza 24 No 1{capsu BID Amitiza 24 MCG MCG le_with MCG _food} Promethazin Promethazin No QID Promethazi e-DM e-DM ne-DM 6.25-15 6.25-15 6.25-15 MG/5ML MG/5ML MG/5ML Iron Iron No Iron Supplement Supplement Supplement baclofen baclofen No baclofen 10mg 10mg 10mg Ziprasidone Ziprasidone No 2{capsu BID Ziprasidon HCl 60 MG HCl 60 MG le_with e HCl 60 _food} MG Gabapentin Gabapentin No BID Gabapentin 600 MG 600 MG 600 MG tiZANidine tiZANidine No 1{table tiZANidine HCl 4 MG HCl 4 MG t} HCl 4 MG Pantoprazol Pantoprazol No 1{table QD Pantoprazo e Sodium 40 e Sodium 40 t} le Sodium MG MG 40 MG LORazepam LORazepam No 1{table QD LORazepam 0.5 MG 0.5 MG t_at_be 0.5 MG dtime_a s_neede d} Geodon 60 Geodon 60 No 1{capsu BID Geodon 60 MG MG le_with MG _food} Gabapentin Gabapentin No Gabapentin 600 MG 600 MG 600 MG Effexor Effexor No Effexor Zolpidem Zolpidem No 1{table QD Zolpidem Tartrate 10 Tartrate 10 t_at_be Tartrate MG MG dtime_a 10 MG s_neede d} Levothyroxi Levothyroxi No QD Levothyrox ne Sodium ne Sodium ine Sodium 50 MCG 50 MCG 50 MCG Vitamin D3 Vitamin D3 No 1{capsu QD Vitamin D3 2000 UNIT 2000 UNIT le} 2000 UNIT tiZANidine tiZANidine No 1{table tiZANidine HCl 4 MG HCl 4 MG t} HCl 4 MG Propranolol Propranolol No Propranolo HCl 10 MG HCl 10 MG l HCl 10 MG Levothyroxi Levothyroxi No Levothyrox ne Sodium ne Sodium ine Sodium 50 MCG 50 MCG 50 MCG lamoTRIgine lamoTRIgine No 1{table QD lamoTRIgin 200 MG 200 MG t} e 200 MG [place] Propranolol Propranolol No 1{table BID Propranolo HCl 20 MG HCl 20 MG t_on_an l HCl 20 _empty_ MG stomach } Pantoprazol Pantoprazol No Pantoprazo e Sodium 40 e Sodium 40 le Sodium MG MG 40 MG Venlafaxine Venlafaxine No 1{table QD Venlafaxin HCl 75 MG HCl 75 MG t_with_ e HCl 75 food} MG hydrOXYzine hydrOXYzine No 1{table hydrOXYzin HCl 50 MG HCl 50 MG t_as_ne e HCl 50 eded} MG Amitiza 24 Amitiza 24 No 1{capsu BID Amitiza 24 MCG MCG le_with MCG _food} Promethazin Promethazin No QID Promethazi e-DM e-DM ne-DM 6.25-15 6.25-15 6.25-15 MG/5ML MG/5ML MG/5ML Iron Iron No Iron Supplement Supplement Supplement baclofen baclofen No baclofen 10mg 10mg 10mg Ziprasidone Ziprasidone No 2{capsu BID Ziprasidon HCl 60 MG HCl 60 MG le_with e HCl 60 _food} MG Gabapentin Gabapentin No BID Gabapentin 600 MG 600 MG 600 MG tiZANidine tiZANidine No 1{table tiZANidine HCl 4 MG HCl 4 MG t} HCl 4 MG Pantoprazol Pantoprazol No 1{table QD Pantoprazo e Sodium 40 e Sodium 40 t} le Sodium MG MG 40 MG LORazepam LORazepam No 1{table QD LORazepam 0.5 MG 0.5 MG t_at_be 0.5 MG dtime_a s_neede d} Iron Iron No Iron Supplement Supplement Supplement Levothyroxi Levothyroxi No QD Levothyrox ne Sodium ne Sodium ine Sodium 50 MCG 50 MCG 50 MCG Effexor Effexor No Effexor Geodon 60 Geodon 60 No 1{capsu BID Geodon 60 MG MG le_with MG _food} Venlafaxine Venlafaxine No 1{table QD Venlafaxin HCl 75 MG HCl 75 MG t_with_ e HCl 75 food} MG Ziprasidone Ziprasidone No 2{capsu BID Ziprasidon HCl 60 MG HCl 60 MG le_with e HCl 60 _food} MG [place] lamoTRIgine lamoTRIgine No 1{table QD lamoTRIgin 200 MG 200 MG t} e 200 MG LORazepam LORazepam No 1{table QD LORazepam 0.5 MG 0.5 MG t_at_be 0.5 MG dtime_a s_neede d} hydrOXYzine hydrOXYzine No 1{table hydrOXYzin HCl 50 MG HCl 50 MG t_as_ne e HCl 50 eded} MG Promethazin Promethazin No QID Promethazi e-DM e-DM ne-DM 6.25-15 6.25-15 6.25-15 MG/5ML MG/5ML MG/5ML Gabapentin Gabapentin No Gabapentin 600 MG 600 MG 600 MG Pantoprazol Pantoprazol No 1{table QD Pantoprazo e Sodium 40 e Sodium 40 t} le Sodium MG MG 40 MG Amitiza 24 Amitiza 24 No 1{capsu BID Amitiza 24 MCG MCG le_with MCG _food} Propranolol Propranolol No Propranolo HCl 10 MG HCl 10 MG l HCl 10 MG baclofen baclofen No baclofen 10mg 10mg 10mg Propranolol Propranolol No 1{table BID Propranolo HCl 20 MG HCl 20 MG t_on_an l HCl 20 _empty_ MG stomach } Pantoprazol Pantoprazol No Pantoprazo e Sodium 40 e Sodium 40 le Sodium MG MG 40 MG Gabapentin Gabapentin No BID Gabapentin 600 MG 600 MG 600 MG Levothyroxi Levothyroxi No Levothyrox ne Sodium ne Sodium ine Sodium 50 MCG 50 MCG 50 MCG Zolpidem Zolpidem No 1{table QD Zolpidem Tartrate 10 Tartrate 10 t_at_be Tartrate MG MG dtime_a 10 MG s_neede d} Vitamin D3 Vitamin D3 No 1{capsu QD Vitamin D3 2000 UNIT 2000 UNIT le} 2000 UNIT tiZANidine tiZANidine No 1{table tiZANidine HCl 4 MG HCl 4 MG t} HCl 4 MG tiZANidine tiZANidine No 1{table tiZANidine HCl 4 MG HCl 4 MG t} HCl 4 MG Iron Iron No Iron Supplement Supplement Supplement Levothyroxi Levothyroxi No QD Levothyrox ne Sodium ne Sodium ine Sodium 50 MCG 50 MCG 50 MCG Effexor Effexor No Effexor Geodon 60 Geodon 60 No 1{capsu BID Geodon 60 MG MG le_with MG _food} Venlafaxine Venlafaxine No 1{table QD Venlafaxin HCl 75 MG HCl 75 MG t_with_ e HCl 75 food} MG Ziprasidone Ziprasidone No 2{capsu BID Ziprasidon HCl 60 MG HCl 60 MG le_with e HCl 60 _food} MG [place] lamoTRIgine lamoTRIgine No 1{table QD lamoTRIgin 200 MG 200 MG t} e 200 MG LORazepam LORazepam No 1{table QD LORazepam 0.5 MG 0.5 MG t_at_be 0.5 MG dtime_a s_neede d} hydrOXYzine hydrOXYzine No 1{table hydrOXYzin HCl 50 MG HCl 50 MG t_as_ne e HCl 50 eded} MG Promethazin Promethazin No QID Promethazi e-DM e-DM ne-DM 6.25-15 6.25-15 6.25-15 MG/5ML MG/5ML MG/5ML Gabapentin Gabapentin No Gabapentin 600 MG 600 MG 600 MG Pantoprazol Pantoprazol No 1{table QD Pantoprazo e Sodium 40 e Sodium 40 t} le Sodium MG MG 40 MG Amitiza 24 Amitiza 24 No 1{capsu BID Amitiza 24 MCG MCG le_with MCG _food} Propranolol Propranolol No Propranolo HCl 10 MG HCl 10 MG l HCl 10 MG baclofen baclofen No baclofen 10mg 10mg 10mg Propranolol Propranolol No 1{table BID Propranolo HCl 20 MG HCl 20 MG t_on_an l HCl 20 _empty_ MG stomach } Pantoprazol Pantoprazol No Pantoprazo e Sodium 40 e Sodium 40 le Sodium MG MG 40 MG Gabapentin Gabapentin No BID Gabapentin 600 MG 600 MG 600 MG Levothyroxi Levothyroxi No Levothyrox ne Sodium ne Sodium ine Sodium 50 MCG 50 MCG 50 MCG Zolpidem Zolpidem No 1{table QD Zolpidem Tartrate 10 Tartrate 10 t_at_be Tartrate MG MG dtime_a 10 MG s_neede d} Vitamin D3 Vitamin D3 No 1{capsu QD Vitamin D3 2000 UNIT 2000 UNIT le} 2000 UNIT tiZANidine tiZANidine No 1{table tiZANidine HCl 4 MG HCl 4 MG t} HCl 4 MG tiZANidine tiZANidine No 1{table tiZANidine HCl 4 MG HCl 4 MG t} HCl 4 MG Iron Iron No Iron Supplement Supplement Supplement Levothyroxi Levothyroxi No QD Levothyrox ne Sodium ne Sodium ine Sodium 50 MCG 50 MCG 50 MCG Effexor Effexor No Effexor Geodon 60 Geodon 60 No 1{capsu BID Geodon 60 MG MG le_with MG _food} Venlafaxine Venlafaxine No 1{table QD Venlafaxin HCl 75 MG HCl 75 MG t_with_ e HCl 75 food} MG Ziprasidone Ziprasidone No 2{capsu BID Ziprasidon HCl 60 MG HCl 60 MG le_with e HCl 60 _food} MG [place] lamoTRIgine lamoTRIgine No 1{table QD lamoTRIgin 200 MG 200 MG t} e 200 MG LORazepam LORazepam No 1{table QD LORazepam 0.5 MG 0.5 MG t_at_be 0.5 MG dtime_a s_neede d} hydrOXYzine hydrOXYzine No 1{table hydrOXYzin HCl 50 MG HCl 50 MG t_as_ne e HCl 50 eded} MG Promethazin Promethazin No QID Promethazi e-DM e-DM ne-DM 6.25-15 6.25-15 6.25-15 MG/5ML MG/5ML MG/5ML Gabapentin Gabapentin No Gabapentin 600 MG 600 MG 600 MG Pantoprazol Pantoprazol No 1{table QD Pantoprazo e Sodium 40 e Sodium 40 t} le Sodium MG MG 40 MG Amitiza 24 Amitiza 24 No 1{capsu BID Amitiza 24 MCG MCG le_with MCG _food} Propranolol Propranolol No Propranolo HCl 10 MG HCl 10 MG l HCl 10 MG baclofen baclofen No baclofen 10mg 10mg 10mg Propranolol Propranolol No 1{table BID Propranolo HCl 20 MG HCl 20 MG t_on_an l HCl 20 _empty_ MG stomach } Pantoprazol Pantoprazol No Pantoprazo e Sodium 40 e Sodium 40 le Sodium MG MG 40 MG Gabapentin Gabapentin No BID Gabapentin 600 MG 600 MG 600 MG Levothyroxi Levothyroxi No Levothyrox ne Sodium ne Sodium ine Sodium 50 MCG 50 MCG 50 MCG Zolpidem Zolpidem No 1{table QD Zolpidem Tartrate 10 Tartrate 10 t_at_be Tartrate MG MG dtime_a 10 MG s_neede d} Vitamin D3 Vitamin D3 No 1{capsu QD Vitamin D3 2000 UNIT 2000 UNIT le} 2000 UNIT tiZANidine tiZANidine No 1{table tiZANidine HCl 4 MG HCl 4 MG t} HCl 4 MG tiZANidine tiZANidine No 1{table tiZANidine HCl 4 MG HCl 4 MG t} HCl 4 MG Iron Iron No Iron Supplement Supplement Supplement Levothyroxi Levothyroxi No QD Levothyrox ne Sodium ne Sodium ine Sodium 50 MCG 50 MCG 50 MCG Effexor Effexor No Effexor Geodon 60 Geodon 60 No 1{capsu BID Geodon 60 MG MG le_with MG _food} Venlafaxine Venlafaxine No 1{table QD Venlafaxin HCl 75 MG HCl 75 MG t_with_ e HCl 75 food} MG Ziprasidone Ziprasidone No 2{capsu BID Ziprasidon HCl 60 MG HCl 60 MG le_with e HCl 60 _food} MG [place] lamoTRIgine lamoTRIgine No 1{table QD lamoTRIgin 200 MG 200 MG t} e 200 MG LORazepam LORazepam No 1{table QD LORazepam 0.5 MG 0.5 MG t_at_be 0.5 MG dtime_a s_neede d} hydrOXYzine hydrOXYzine No 1{table hydrOXYzin HCl 50 MG HCl 50 MG t_as_ne e HCl 50 eded} MG Amitiza 24 Amitiza 24 No 1{capsu BID Amitiza 24 MCG MCG le_with MCG _food} Gabapentin Gabapentin No Gabapentin 600 MG 600 MG 600 MG Pantoprazol Pantoprazol No 1{table QD Pantoprazo e Sodium 40 e Sodium 40 t} le Sodium MG MG 40 MG Pantoprazol Pantoprazol No Pantoprazo e Sodium 40 e Sodium 40 le Sodium MG MG 40 MG Propranolol Propranolol No Propranolo HCl 10 MG HCl 10 MG l HCl 10 MG baclofen baclofen No baclofen 10mg 10mg 10mg Propranolol Propranolol No 1{table BID Propranolo HCl 20 MG HCl 20 MG t_on_an l HCl 20 _empty_ MG stomach } Promethazin Promethazin No QID Promethazi e-DM e-DM ne-DM 6.25-15 6.25-15 6.25-15 MG/5ML MG/5ML MG/5ML Gabapentin Gabapentin No BID Gabapentin 600 MG 600 MG 600 MG Levothyroxi Levothyroxi No Levothyrox ne Sodium ne Sodium ine Sodium 50 MCG 50 MCG 50 MCG Zolpidem Zolpidem No 1{table QD Zolpidem Tartrate 10 Tartrate 10 t_at_be Tartrate MG MG dtime_a 10 MG s_neede d} Vitamin D3 Vitamin D3 No 1{capsu QD Vitamin D3 2000 UNIT 2000 UNIT le} 2000 UNIT tiZANidine tiZANidine No 1{table tiZANidine HCl 4 MG HCl 4 MG t} HCl 4 MG tiZANidine tiZANidine No 1{table tiZANidine HCl 4 MG HCl 4 MG t} HCl 4 MG Iron Iron No Iron Supplement Supplement Supplement Gabapentin Gabapentin No BID Gabapentin 600 MG 600 MG 600 MG Vitamin D3 Vitamin D3 No 1{capsu QD Vitamin D3 2000 UNIT 2000 UNIT le} 2000 UNIT Pantoprazol Pantoprazol No 1{table QD Pantoprazo e Sodium 40 e Sodium 40 t} le Sodium MG MG 40 MG Venlafaxine Venlafaxine No 1{table QD Venlafaxin HCl 75 MG HCl 75 MG t_with_ e HCl 75 food} MG Levothyroxi Levothyroxi No QD Levothyrox ne Sodium ne Sodium ine Sodium 50 MCG 50 MCG 50 MCG Geodon 60 Geodon 60 No 1{capsu BID Geodon 60 MG MG le_with MG _food} lamoTRIgine lamoTRIgine No 1{table QD lamoTRIgin 200 MG 200 MG t} e 200 MG Propranolol Propranolol No 1{table BID Propranolo HCl 20 MG HCl 20 MG t_on_an l HCl 20 _empty_ MG stomach } Effexor Effexor No [place] hydrOXYzine hydrOXYzine No 1{table hydrOXYzin HCl 50 MG HCl 50 MG t_as_ne e HCl 50 eded} MG tiZANidine tiZANidine No 1{table tiZANidine HCl 4 MG HCl 4 MG t} HCl 4 MG LORazepam LORazepam No 1{table QD LORazepam 0.5 MG 0.5 MG t_at_be 0.5 MG dtime_a s_neede d} Gabapentin Gabapentin No Gabapentin 600 MG 600 MG 600 MG Zolpidem Zolpidem No 1{table QD Zolpidem Tartrate 10 Tartrate 10 t_at_be Tartrate MG MG dtime_a 10 MG s_neede d} Ziprasidone Ziprasidone No 2{capsu BID Ziprasidon HCl 60 MG HCl 60 MG le_with e HCl 60 _food} MG Propranolol Propranolol No Propranolo HCl 10 MG HCl 10 MG l HCl 10 MG [place] Iron Iron No Iron Supplement Supplement Supplement Gabapentin Gabapentin No BID Gabapentin 600 MG 600 MG 600 MG Vitamin D3 Vitamin D3 No 1{capsu QD Vitamin D3 2000 UNIT 2000 UNIT le} 2000 UNIT Pantoprazol Pantoprazol No 1{table QD Pantoprazo e Sodium 40 e Sodium 40 t} le Sodium MG MG 40 MG Venlafaxine Venlafaxine No 1{table QD Venlafaxin HCl 75 MG HCl 75 MG t_with_ e HCl 75 food} MG Levothyroxi Levothyroxi No QD Levothyrox ne Sodium ne Sodium ine Sodium 50 MCG 50 MCG 50 MCG Geodon 60 Geodon 60 No 1{capsu BID Geodon 60 MG MG le_with MG _food} lamoTRIgine lamoTRIgine No 1{table QD lamoTRIgin 200 MG 200 MG t} e 200 MG Propranolol Propranolol No 1{table BID Propranolo HCl 20 MG HCl 20 MG t_on_an l HCl 20 _empty_ MG stomach } Effexor Effexor No [place] hydrOXYzine hydrOXYzine No 1{table hydrOXYzin HCl 50 MG HCl 50 MG t_as_ne e HCl 50 eded} MG tiZANidine tiZANidine No 1{table tiZANidine HCl 4 MG HCl 4 MG t} HCl 4 MG LORazepam LORazepam No 1{table QD LORazepam 0.5 MG 0.5 MG t_at_be 0.5 MG dtime_a s_neede d} Gabapentin Gabapentin No Gabapentin 600 MG 600 MG 600 MG Zolpidem Zolpidem No 1{table QD Zolpidem Tartrate 10 Tartrate 10 t_at_be Tartrate MG MG dtime_a 10 MG s_neede d} Ziprasidone Ziprasidone No 2{capsu BID Ziprasidon HCl 60 MG HCl 60 MG le_with e HCl 60 _food} MG Propranolol Propranolol No Propranolo HCl 10 MG HCl 10 MG l HCl 10 MG [place] LORazepam LORazepam No 1{table QD LORazepam 0.5 MG 0.5 MG t_at_be 0.5 MG dtime_a s_neede d} hydrOXYzine hydrOXYzine No 1{table hydrOXYzin HCl 50 MG HCl 50 MG t_as_ne e HCl 50 eded} MG Propranolol Propranolol No 1{table BID Propranolo HCl 20 MG HCl 20 MG t_on_an l HCl 20 _empty_ MG stomach } Gabapentin Gabapentin No Gabapentin 600 MG 600 MG 600 MG [place] Pantoprazol Pantoprazol No 1{table QD Pantoprazo e Sodium 40 e Sodium 40 t} le Sodium MG MG 40 MG tiZANidine tiZANidine No 1{table tiZANidine HCl 4 MG HCl 4 MG t} HCl 4 MG lamoTRIgine lamoTRIgine No 1{table QD lamoTRIgin 200 MG 200 MG t} e 200 MG Iron Iron No Iron Supplement Supplement Supplement Ziprasidone Ziprasidone No 2{capsu BID Ziprasidon HCl 60 MG HCl 60 MG le_with e HCl 60 _food} MG Propranolol Propranolol No Propranolo HCl 10 MG HCl 10 MG l HCl 10 MG Gabapentin Gabapentin No BID Gabapentin 600 MG 600 MG 600 MG Venlafaxine Venlafaxine No 1{table QD Venlafaxin HCl 75 MG HCl 75 MG t_with_ e HCl 75 food} MG Geodon 60 Geodon 60 No 1{capsu BID Geodon 60 MG MG le_with MG _food} Vitamin D3 Vitamin D3 No 1{capsu QD Vitamin D3 2000 UNIT 2000 UNIT le} 2000 [place]IT Effexor Effexor No Effe[place] Zolpidem Zolpidem No 1{table QD Zolpidem Tartrate 10 Tartrate 10 t_at_be Tartrate MG MG dtime_a 10 MG s_neede d} Levothyroxi Levothyroxi No QD Levothyrox ne Sodium ne Sodium ine Sodium 50 MCG 50 MCG 50 MCG Levothyroxi Levothyroxi No QD Levothyrox ne Sodium ne Sodium ine Sodium 50 MCG 50 MCG 50 MCG Propranolol Propranolol No Propranolo HCl 10 MG HCl 10 MG l HCl 10 MG LORazepam LORazepam No 1{table QD LORazepam 0.5 MG 0.5 MG t_at_be 0.5 MG dtime_a s_neede d} Zolpidem Zolpidem No 1{table QD Zolpidem Tartrate 10 Tartrate 10 t_at_be Tartrate MG MG dtime_a 10 MG s_neede d} hydrOXYzine hydrOXYzine No 1{table hydrOXYzin HCl 50 MG HCl 50 MG t_as_ne e HCl 50 eded} MG lamoTRIgine lamoTRIgine No 1{table QD lamoTRIgin 200 MG 200 MG t} e 200 MG Gabapentin Gabapentin No Gabapentin 600 MG 600 MG 600 MG Iron Iron No Iron Supplement Supplement Supplement tiZANidine tiZANidine No 1{table tiZANidine HCl 4 MG HCl 4 MG t} HCl 4 MG Propranolol Propranolol No Propranolo HCl 20 MG HCl 20 MG l HCl 20 MG Venlafaxine Venlafaxine No 1{table QD Venlafaxin HCl 75 MG HCl 75 MG t_with_ e HCl 75 food} MG [place] Ziprasidone Ziprasidone No 2{capsu BID Ziprasidon HCl 60 MG HCl 60 MG le_with e HCl 60 _food} MG Vitamin D3 Vitamin D3 No 1{capsu QD Vitamin D3 2000 UNIT 2000 UNIT le} 2000 UNIT Pantoprazol Pantoprazol No 1{table QD Pantoprazo e Sodium 40 e Sodium 40 t} le Sodium MG MG 40 MG Gabapentin Gabapentin No BID Gabapentin 600 MG 600 MG 600 MG Effexor Effexor No Effexor Ondansetron Ondansetron No Ondansetro HCl 4 MG HCl 4 MG n HCl 4 MG Geodon 60 Geodon 60 No 1{capsu BID Geodon 60 MG MG le_with MG _food} Levothyroxi Levothyroxi No QD Levothyrox ne Sodium ne Sodium ine Sodium 50 MCG 50 MCG 50 MCG Propranolol Propranolol No Propranolo HCl 10 MG HCl 10 MG l HCl 10 MG LORazepam LORazepam No 1{table QD LORazepam 0.5 MG 0.5 MG t_at_be 0.5 MG dtime_a s_neede d} Zolpidem Zolpidem No 1{table QD Zolpidem Tartrate 10 Tartrate 10 t_at_be Tartrate MG MG dtime_a 10 MG s_neede d} hydrOXYzine hydrOXYzine No 1{table hydrOXYzin HCl 50 MG HCl 50 MG t_as_ne e HCl 50 eded} MG lamoTRIgine lamoTRIgine No 1{table QD lamoTRIgin 200 MG 200 MG t} e 200 MG Gabapentin Gabapentin No Gabapentin 600 MG 600 MG 600 MG Iron Iron No Iron Supplement Supplement Supplement tiZANidine tiZANidine No 1{table tiZANidine HCl 4 MG HCl 4 MG t} HCl 4 MG Propranolol Propranolol No Propranolo HCl 20 MG HCl 20 MG l HCl 20 MG Venlafaxine Venlafaxine No 1{table QD Venlafaxin HCl 75 MG HCl 75 MG t_with_ e HCl 75 food} MG [place] Ziprasidone Ziprasidone No 2{capsu BID Ziprasidon HCl 60 MG HCl 60 MG le_with e HCl 60 _food} MG Vitamin D3 Vitamin D3 No 1{capsu QD Vitamin D3 2000 UNIT 2000 UNIT le} 2000 UNIT Pantoprazol Pantoprazol No 1{table QD Pantoprazo e Sodium 40 e Sodium 40 t} le Sodium MG MG 40 MG Gabapentin Gabapentin No BID Gabapentin 600 MG 600 MG 600 MG Effexor Effexor No Effexor Ondansetron Ondansetron No Ondansetro HCl 4 MG HCl 4 MG n HCl 4 MG Geodon 60 Geodon 60 No 1{capsu BID Geodon 60 MG MG le_with MG _food} Levothyroxi Levothyroxi No QD Levothyrox ne Sodium ne Sodium ine Sodium 50 MCG 50 MCG 50 MCG Propranolol Propranolol No Propranolo HCl 10 MG HCl 10 MG l HCl 10 MG LORazepam LORazepam No 1{table QD LORazepam 0.5 MG 0.5 MG t_at_be 0.5 MG dtime_a s_neede d} Zolpidem Zolpidem No 1{table QD Zolpidem Tartrate 10 Tartrate 10 t_at_be Tartrate MG MG dtime_a 10 MG s_neede d} hydrOXYzine hydrOXYzine No 1{table hydrOXYzin HCl 50 MG HCl 50 MG t_as_ne e HCl 50 eded} MG lamoTRIgine lamoTRIgine No 1{table QD lamoTRIgin 200 MG 200 MG t} e 200 MG Gabapentin Gabapentin No Gabapentin 600 MG 600 MG 600 MG Iron Iron No Iron Supplement Supplement Supplement tiZANidine tiZANidine No 1{table tiZANidine HCl 4 MG HCl 4 MG t} HCl 4 MG Propranolol Propranolol No Propranolo HCl 20 MG HCl 20 MG l HCl 20 MG Venlafaxine Venlafaxine No 1{table QD Venlafaxin HCl 75 MG HCl 75 MG t_with_ e HCl 75 food} MG [place] Ziprasidone Ziprasidone No 2{capsu BID Ziprasidon HCl 60 MG HCl 60 MG le_with e HCl 60 _food} MG Vitamin D3 Vitamin D3 No 1{capsu QD Vitamin D3 2000 UNIT 2000 UNIT le} 2000 UNIT Pantoprazol Pantoprazol No 1{table QD Pantoprazo e Sodium 40 e Sodium 40 t} le Sodium MG MG 40 MG Gabapentin Gabapentin No BID Gabapentin 600 MG 600 MG 600 MG Effexor Effexor No Effexor Ondansetron Ondansetron No Ondansetro HCl 4 MG HCl 4 MG n HCl 4 MG Geodon 60 Geodon 60 No 1{capsu BID Geodon 60 MG MG le_with MG _food} Venlafaxine Venlafaxine No 1{table QD Venlafaxin HCl 75 MG HCl 75 MG t_with_ e HCl 75 food} MG hydrOXYzine hydrOXYzine No 1{table hydrOXYzin HCl 50 MG HCl 50 MG t_as_ne e HCl 50 eded} MG Effexor Effexor No Effexor Pantoprazol Pantoprazol No 1{table QD Pantoprazo e Sodium 40 e Sodium 40 t} le Sodium MG MG 40 MG Iron Iron No Iron Supplement Supplement Supplement Geodon 60 Geodon 60 No 1{capsu BID Geodon 60 MG MG le_with MG _food} Ondansetron Ondansetron No Ondansetro HCl 4 MG HCl 4 MG n HCl 4 MG Gabapentin Gabapentin No BID Gabapentin 600 MG 600 MG 600 MG Ziprasidone Ziprasidone No 2{capsu BID Ziprasidon HCl 60 MG HCl 60 MG le_with e HCl 60 _food} MG LORazepam LORazepam No 1{table QD LORazepam 0.5 MG 0.5 MG t_at_be 0.5 MG dtime_a s_neede d} tiZANidine tiZANidine No 1{table tiZANidine HCl 4 MG HCl 4 MG t} HCl 4 MG Levothyroxi Levothyroxi No QD Levothyrox ne Sodium ne Sodium ine Sodium 50 MCG 50 MCG 50 MCG Zolpidem Zolpidem No 1{table QD Zolpidem Tartrate 10 Tartrate 10 t_at_be Tartrate MG MG dtime_a 10 MG s_neede d} Propranolol Propranolol No Propranolo HCl 10 MG HCl 10 MG l HCl 10 MG Vitamin D3 Vitamin D3 No 1{capsu QD Vitamin D3 2000 UNIT 2000 UNIT le} 2000 UNIT lamoTRIgine lamoTRIgine No 1{table QD lamoTRIgin 200 MG 200 MG t} e 200 MG Propranolol Propranolol No Propranolo HCl 20 MG HCl 20 MG l HCl 20 MG [place] Gabapentin Gabapentin No Gabapentin 600 MG 600 MG 600 MG Ziprasidone Ziprasidone No 2{capsu BID Ziprasidon HCl 60 MG HCl 60 MG le_with e HCl 60 _food} MG Vitamin D3 Vitamin D3 No 1{capsu QD Vitamin D3 2000 UNIT 2000 UNIT le} 2000 UNIT Propranolol Propranolol No Propranolo HCl 10 MG HCl 10 MG l HCl 10 MG LORazepam LORazepam No 1{table QD LORazepam 0.5 MG 0.5 MG t_at_be 0.5 MG dtime_a s_neede d} Venlafaxine Venlafaxine No 1{table QD Venlafaxin HCl 75 MG HCl 75 MG t_with_ e HCl 75 food} MG Gabapentin Gabapentin No Gabapentin 600 MG 600 MG 600 MG Iron Iron No Iron Supplement Supplement Supplement Effexor Effexor No Effexor Levothyroxi Levothyroxi No Levothyrox ne Sodium ne Sodium ine Sodium 50 MCG 50 MCG 50 MCG [place] Pantoprazol Pantoprazol No Pantoprazo e Sodium 40 e Sodium 40 le Sodium MG MG 40 MG Geodon 60 Geodon 60 No 1{capsu BID Geodon 60 MG MG le_with MG _food} Pantoprazol Pantoprazol No 1{table QD Pantoprazo e Sodium 40 e Sodium 40 t} le Sodium MG MG 40 MG Ondansetron Ondansetron No Ondansetro HCl 4 MG HCl 4 MG n HCl 4 MG Gabapentin Gabapentin No BID Gabapentin 600 MG 600 MG 600 MG tiZANidine tiZANidine No 1{table tiZANidine HCl 4 MG HCl 4 MG t} HCl 4 MG Zolpidem Zolpidem No 1{table QD Zolpidem Tartrate 10 Tartrate 10 t_at_be Tartrate MG MG dtime_a 10 MG s_neede d} Propranolol Propranolol No Propranolo HCl 20 MG HCl 20 MG l HCl 20 MG lamoTRIgine lamoTRIgine No 1{table QD lamoTRIgin 200 MG 200 MG t} e 200 MG hydrOXYzine hydrOXYzine No 1{table hydrOXYzin HCl 50 MG HCl 50 MG t_as_ne e HCl 50 eded} MG tiZANidine tiZANidine No 1{table tiZANidine HCl 4 MG HCl 4 MG t} HCl 4 MG Propranolol Propranolol No Propranolo HCl 10 MG HCl 10 MG l HCl 10 MG Propranolol Propranolol No 1{table BID Propranolo HCl 20 MG HCl 20 MG t_on_an l HCl 20 _empty_ MG stomach } Pantoprazol Pantoprazol No 1{table QD Pantoprazo e Sodium 40 e Sodium 40 t} le Sodium MG MG 40 MG Vitamin D3 Vitamin D3 No 1{capsu QD Vitamin D3 2000 UNIT 2000 UNIT le} 2000 UNIT Iron Iron No Iron Supplement Supplement Supplement Gabapentin Gabapentin No BID Gabapentin 600 MG 600 MG 600 MG [place] No [place] Amitiza 24 Amitiza 24 No 1{capsu BID Amitiza 24 MCG MCG le_with MCG _food} Levothyroxi Levothyroxi No QD Levothyrox ne Sodium ne Sodium ine Sodium 50 MCG 50 MCG 50 MCG Zolpidem Zolpidem No 1{table QD Zolpidem Tartrate 10 Tartrate 10 t_at_be Tartrate MG MG dtime_a 10 MG s_neede d} Geodon 60 Geodon 60 No 1{capsu BID Geodon 60 MG MG le_with MG _food} hydrOXYzine hydrOXYzine No 1{table hydrOXYzin HCl 50 MG HCl 50 MG t_as_ne e HCl 50 eded} MG Levothyroxi Levothyroxi No Levothyrox ne Sodium ne Sodium ine Sodium 50 MCG 50 MCG 50 MCG baclofen baclofen No baclofen 10mg 10mg 10mg Effexor Effexor No Effexor Gabapentin Gabapentin No Gabapentin 600 MG 600 MG 600 MG Pantoprazol Pantoprazol No Pantoprazo e Sodium 40 e Sodium 40 le Sodium MG MG 40 MG Promethazin Promethazin No QID Promethazi e-DM e-DM ne-DM 6.25-15 6.25-15 6.25-15 MG/5ML MG/5ML MG/5ML Propranolol Propranolol No Propranolo HCl 20 MG HCl 20 MG l HCl 20 MG Ondansetron Ondansetron No Ondansetro HCl 4 MG HCl 4 MG n HCl 4 MG lamoTRIgine lamoTRIgine No 1{table QD lamoTRIgin 200 MG 200 MG t} e 200 MG Ziprasidone Ziprasidone No 2{capsu BID Ziprasidon HCl 60 MG HCl 60 MG le_with e HCl 60 _food} MG LORazepam LORazepam No 1{table QD LORazepam 0.5 MG 0.5 MG t_at_be 0.5 MG dtime_a s_neede d} Venlafaxine Venlafaxine No 1{table QD Venlafaxin HCl 75 MG HCl 75 MG t_with_ e HCl 75 food} MG tiZANidine tiZANidine No 1{table tiZANidine HCl 4 MG HCl 4 MG t} HCl 4 MG Propranolol Propranolol No Propranolo HCl 10 MG HCl 10 MG l HCl 10 MG Pantoprazol Pantoprazol No 1{table QD Pantoprazo e Sodium 40 e Sodium 40 t} le Sodium MG MG 40 MG [place] Vitamin D3 Vitamin D3 No 1{capsu QD Vitamin D3 2000 UNIT 2000 UNIT le} 2000 UNIT Gabapentin Gabapentin No BID Gabapentin 600 MG 600 MG 600 MG Iron Iron No Iron Supplement Supplement Supplement Amitiza 24 Amitiza 24 No 1{capsu BID Amitiza 24 MCG MCG le_with MCG _food} Levothyroxi Levothyroxi No QD Levothyrox ne Sodium ne Sodium ine Sodium 50 MCG 50 MCG 50 MCG Zolpidem Zolpidem No 1{table QD Zolpidem Tartrate 10 Tartrate 10 t_at_be Tartrate MG MG dtime_a 10 MG s_neede d} Geodon 60 Geodon 60 No 1{capsu BID Geodon 60 MG MG le_with MG _food} hydrOXYzine hydrOXYzine No 1{table hydrOXYzin HCl 50 MG HCl 50 MG t_as_ne e HCl 50 eded} MG Pantoprazol Pantoprazol No Pantoprazo e Sodium 40 e Sodium 40 le Sodium MG MG 40 MG baclofen baclofen No baclofen 10mg 10mg 10mg Effexor Effexor No Effexor Gabapentin Gabapentin No Gabapentin 600 MG 600 MG 600 MG Propranolol Propranolol No Propranolo HCl 20 MG HCl 20 MG l HCl 20 MG Promethazin Promethazin No QID Promethazi e-DM e-DM ne-DM 6.25-15 6.25-15 6.25-15 MG/5ML MG/5ML MG/5ML Levothyroxi Levothyroxi No Levothyrox ne Sodium ne Sodium ine Sodium 50 MCG 50 MCG 50 MCG Ondansetron Ondansetron No Ondansetro HCl 4 MG HCl 4 MG n HCl 4 MG lamoTRIgine lamoTRIgine No 1{table QD lamoTRIgin 200 MG 200 MG t} e 200 MG Ziprasidone Ziprasidone No 2{capsu BID Ziprasidon HCl 60 MG HCl 60 MG le_with e HCl 60 _food} MG LORazepam LORazepam No 1{table QD LORazepam 0.5 MG 0.5 MG t_at_be 0.5 MG dtime_a s_neede d} Venlafaxine Venlafaxine No 1{table QD Venlafaxin HCl 75 MG HCl 75 MG t_with_ e HCl 75 food} MG tiZANidine tiZANidine No 1{table tiZANidine HCl 4 MG HCl 4 MG t} HCl 4 MG Propranolol Propranolol No Propranolo HCl 10 MG HCl 10 MG l HCl 10 MG Pantoprazol Pantoprazol No 1{table QD Pantoprazo e Sodium 40 e Sodium 40 t} le Sodium MG MG 40 MG [place] Vitamin D3 Vitamin D3 No 1{capsu QD Vitamin D3 2000 UNIT 2000 UNIT le} 2000 UNIT Gabapentin Gabapentin No BID Gabapentin 600 MG 600 MG 600 MG Iron Iron No Iron Supplement Supplement Supplement Amitiza 24 Amitiza 24 No 1{capsu BID Amitiza 24 MCG MCG le_with MCG _food} Levothyroxi Levothyroxi No QD Levothyrox ne Sodium ne Sodium ine Sodium 50 MCG 50 MCG 50 MCG Zolpidem Zolpidem No 1{table QD Zolpidem Tartrate 10 Tartrate 10 t_at_be Tartrate MG MG dtime_a 10 MG s_neede d} Geodon 60 Geodon 60 No 1{capsu BID Geodon 60 MG MG le_with MG _food} Effexor Effexor No Effexor Pantoprazol Pantoprazol No Pantoprazo e Sodium 40 e Sodium 40 le Sodium MG MG 40 MG baclofen baclofen No baclofen 10mg 10mg 10mg hydrOXYzine hydrOXYzine No 1{table hydrOXYzin HCl 50 MG HCl 50 MG t_as_ne e HCl 50 eded} MG Gabapentin Gabapentin No Gabapentin 600 MG 600 MG 600 MG Propranolol Propranolol No Propranolo HCl 20 MG HCl 20 MG l HCl 20 MG Promethazin Promethazin No QID Promethazi e-DM e-DM ne-DM 6.25-15 6.25-15 6.25-15 MG/5ML MG/5ML MG/5ML Levothyroxi Levothyroxi No Levothyrox ne Sodium ne Sodium ine Sodium 50 MCG 50 MCG 50 MCG Ondansetron Ondansetron No Ondansetro HCl 4 MG HCl 4 MG n HCl 4 MG lamoTRIgine lamoTRIgine No 1{table QD lamoTRIgin 200 MG 200 MG t} e 200 MG Ziprasidone Ziprasidone No 2{capsu BID Ziprasidon HCl 60 MG HCl 60 MG le_with e HCl 60 _food} MG LORazepam LORazepam No 1{table QD LORazepam 0.5 MG 0.5 MG t_at_be 0.5 MG dtime_a s_neede d} Iron Iron No Iron Supplement Supplement Supplement Venlafaxine Venlafaxine No 1{table QD Venlafaxin HCl 75 MG HCl 75 MG t_with_ e HCl 75 food} MG tiZANidine tiZANidine No 1{table tiZANidine HCl 4 MG HCl 4 MG t} HCl 4 MG Propranolol Propranolol No Propranolo HCl 10 MG HCl 10 MG l HCl 10 MG Pantoprazol Pantoprazol No 1{table QD Pantoprazo e Sodium 40 e Sodium 40 t} le Sodium MG MG 40 MG Levothyroxi Levothyroxi No QD Levothyrox ne Sodium ne Sodium ine Sodium 50 MCG 50 MCG 50 MCG [place] Vitamin D3 Vitamin D3 No 1{capsu QD Vitamin D3 2000 UNIT 2000 UNIT le} 2000 UNIT Gabapentin Gabapentin No BID Gabapentin 600 MG 600 MG 600 MG Iron Iron No Iron Supplement Supplement Supplement Amitiza 24 Amitiza 24 No 1{capsu BID Amitiza 24 MCG MCG le_with MCG _food} Levothyroxi Levothyroxi No QD Levothyrox ne Sodium ne Sodium ine Sodium 50 MCG 50 MCG 50 MCG Zolpidem Zolpidem No 1{table QD Zolpidem Tartrate 10 Tartrate 10 t_at_be Tartrate MG MG dtime_a 10 MG s_neede d} Geodon 60 Geodon 60 No 1{capsu BID Geodon 60 MG MG le_with MG _food} Effexor Effexor No Effexor Effexor Effexor No Effexor Pantoprazol Pantoprazol No Pantoprazo e Sodium 40 e Sodium 40 le Sodium MG MG 40 MG baclofen baclofen No baclofen 10mg 10mg 10mg hydrOXYzine hydrOXYzine No 1{table hydrOXYzin HCl 50 MG HCl 50 MG t_as_ne e HCl 50 eded} MG Gabapentin Gabapentin No Gabapentin 600 MG 600 MG 600 MG Propranolol Propranolol No Propranolo HCl 20 MG HCl 20 MG l HCl 20 MG Promethazin Promethazin No QID Promethazi e-DM e-DM ne-DM 6.25-15 6.25-15 6.25-15 MG/5ML MG/5ML MG/5ML Levothyroxi Levothyroxi No Levothyrox ne Sodium ne Sodium ine Sodium 50 MCG 50 MCG 50 MCG Ondansetron Ondansetron No Ondansetro HCl 4 MG HCl 4 MG n HCl 4 MG lamoTRIgine lamoTRIgine No 1{table QD lamoTRIgin 200 MG 200 MG t} e 200 MG Ziprasidone Ziprasidone No 2{capsu BID Ziprasidon HCl 60 MG HCl 60 MG le_with e HCl 60 _food} MG Geodon 60 Geodon 60 No 1{capsu BID Geodon 60 MG MG le_with MG _food} LORazepam LORazepam No 1{table QD LORazepam 0.5 MG 0.5 MG t_at_be 0.5 MG dtime_a s_neede d} Venlafaxine Venlafaxine No 1{table QD Venlafaxin HCl 75 MG HCl 75 MG t_with_ e HCl 75 food} MG baclofen baclofen No baclofen 10mg 10mg 10mg Venlafaxine Venlafaxine No 1{table QD Venlafaxin HCl 75 MG HCl 75 MG t_with_ e HCl 75 food} MG Ziprasidone Ziprasidone No 2{capsu BID Ziprasidon HCl 60 MG HCl 60 MG le_with e HCl 60 _food} MG LORazepam LORazepam No 1{table QD LORazepam 0.5 MG 0.5 MG t_at_be 0.5 MG dtime_a s_neede d} Propranolol Propranolol No Propranolo HCl 20 MG HCl 20 MG l HCl 20 MG Levothyroxi Levothyroxi No QD Levothyrox ne Sodium ne Sodium ine Sodium 50 MCG 50 MCG 50 MCG Pantoprazol Pantoprazol No 1{table QD Pantoprazo e Sodium 40 e Sodium 40 t} le Sodium MG MG 40 MG Venlafaxine Venlafaxine No 1{table QD Venlafaxin HCl 75 MG HCl 75 MG t_with_ e HCl 75 food} MG Gabapentin Gabapentin No BID Gabapentin 600 MG 600 MG 600 MG tiZANidine tiZANidine No 1{table tiZANidine HCl 4 MG HCl 4 MG t} HCl 4 MG Pantoprazol Pantoprazol No Pantoprazo e Sodium 40 e Sodium 40 le Sodium MG MG 40 MG lamoTRIgine lamoTRIgine No 1{table QD lamoTRIgin 200 MG 200 MG t} e 200 MG Ziprasidone Ziprasidone No 2{capsu BID Ziprasidon HCl 60 MG HCl 60 MG le_with e HCl 60 _food} MG Propranolol Propranolol No Propranolo HCl 10 MG HCl 10 MG l HCl 10 MG Effexor Effexor No Effexor Zolpidem Zolpidem No 1{table QD Zolpidem Tartrate 10 Tartrate 10 t_at_be Tartrate MG MG dtime_a 10 MG s_neede d} Iron Iron No Iron Supplement Supplement Supplement Gabapentin Gabapentin No Gabapentin 600 MG 600 MG 600 MG Vitamin D3 Vitamin D3 No 1{capsu QD Vitamin D3 2000 UNIT 2000 UNIT le} 2000 UNIT Ondansetron Ondansetron No Ondansetro HCl 4 MG HCl 4 MG n HCl 4 MG [place] Promethazin Promethazin No QID Promethazi e-DM e-DM ne-DM 6.25-15 6.25-15 6.25-15 MG/5ML MG/5ML MG/5ML [place] Geodon 60 Geodon 60 No 1{capsu BID Geodon 60 MG MG le_with MG _food} Propranolol Propranolol No 1{table BID Propranolo HCl 20 MG HCl 20 MG t_on_an l HCl 20 _empty_ MG stomach } hydrOXYzine hydrOXYzine No 1{table hydrOXYzin HCl 50 MG HCl 50 MG t_as_ne e HCl 50 eded} MG Levothyroxi Levothyroxi No QD Levothyrox ne Sodium ne Sodium ine Sodium 50 MCG 50 MCG 50 MCG Amitiza 24 Amitiza 24 No 1{capsu BID Amitiza 24 MCG MCG le_with MCG _food} lamoTRIgine lamoTRIgine No 1{table QD lamoTRIgin 200 MG 200 MG t} e 200 MG LORazepam LORazepam No 1{table QD LORazepam 0.5 MG 0.5 MG t_at_be 0.5 MG dtime_a s_neede d} hydrOXYzine hydrOXYzine No 1{table hydrOXYzin HCl 50 MG HCl 50 MG t_as_ne e HCl 50 eded} MG Amitiza 24 Amitiza 24 No 1{capsu BID Amitiza 24 MCG MCG le_with MCG _food} Gabapentin Gabapentin No Gabapentin 600 MG 600 MG 600 MG Pantoprazol Pantoprazol No 1{table QD Pantoprazo e Sodium 40 e Sodium 40 t} le Sodium MG MG 40 MG Amitiza Amitiza Yes Gloria 1 capsule Co [facility]mon [facility] with food [facility] Pantoprazol Pantoprazol Yes Gloria 1 tablet Common e Sodium e Sodium [facility] Propranolol Propranolol Yes Gloria 1 tablet Common HCl HCl [facility]att on an Spirit empty - [facility] stomach [facility] Vitamin D3 Vitamin D3 Yes Gloria 1 capsule Common [facility] Levothyroxi Levothyroxi Yes Gloria 1 tablet Common ne Sodium ne Sodium [facility]att on an Spi rit empty - [facility] stomach in [facility] Promethazin Promethazin Yes Gloria 5 ml as Common e-DM e-DM [facility]att needed Spirit Nausea/Vom - [facility] iting [facility] Clonazepam Clonazepam Yes Gloria 1 tablet Common Platt at bedtime [facility] Geodon Rajeshdon Yes Gloria 1 capsule Comm on Platt with food [facility] baclofen baclofen Yes Gloria 1 tab as C ommon Platt needed for [facility] pain [facility] Iron Iron Yes Gloria not Common Supplement Supplement Platt defined [facility] Ziprasidone Ziprasidone Yes Gloria 1 capsule Common HCl HCl Platt with food [facility] Tizanidine Tizanidine Yes Gloria 1 tablet Common HCl HCl Platt [facility] HydrOXYzine HydrOXYzine Yes Gloria 1 tablet Common HCl HCl Platt [facility] Gabapentin Gabapentin Yes Gloria 1 tablet Common Platt am and 2 Spirit tabs [facility] Gabapentin Gabapentin Yes Gloria TAKE ONE Common Platt TABLET BY [facility] MOUTH [facility] EVERY St MORNING [facility] AND THEN Medical TAKE TWO Center TABLETS BY MOUTH EVERY EVENING Wellbutrin Wellbutrin Yes Gloria 1 tablet Common XL XL [facility]att in the [facility] Fluoxetine Fluoxetine Yes Gloria 1 capsule Common HCl HCl Platt [facility] Pantoprazol Pantoprazol No Pantoprazo e Sodium 40 e Sodium 40 le Sodium MG MG 40 MG Propranolol Propranolol No Propranolo HCl 10 MG HCl 10 MG l HCl 10 MG baclofen baclofen No baclofen 10mg 10mg 10mg Propranolol Propranolol No 1{table BID Propranolo HCl 20 MG HCl 20 MG t_on_an l HCl 20 _empty_ MG stomach } Promethazin Promethazin No QID Promethazi e-DM e-DM ne-DM 6.25-15 6.25-15 6.25-15 MG/5ML MG/5ML MG/5ML Gabapentin Gabapentin No BID Gabapentin 600 MG 600 MG 600 MG Levothyroxi Levothyroxi No Levothyrox ne Sodium ne Sodium ine Sodium 50 MCG 50 MCG 50 MCG Zolpidem Zolpidem No 1{table QD Zolpidem Tartrate 10 Tartrate 10 t_at_be Tartrate MG MG dtime_a 10 MG s_neede d} Vitamin D3 Vitamin D3 No 1{capsu QD Vitamin D3 2000 UNIT 2000 UNIT le} 2000 UNIT tiZANidine tiZANidine No 1{table tiZANidine HCl 4 MG HCl 4 MG t} HCl 4 MG tiZANidine tiZANidine No 1{table tiZANidine HCl 4 MG HCl 4 MG t} HCl 4 MG Iron Iron No Iron Supplement Supplement Supplement Gabapentin Gabapentin No BID Gabapentin 600 MG 600 MG 600 MG Vitamin D3 Vitamin D3 No 1{capsu QD Vitamin D3 2000 UNIT 2000 UNIT le} 2000 UNIT Pantoprazol Pantoprazol No 1{table QD Pantoprazo e Sodium 40 e Sodium 40 t} le Sodium MG MG 40 MG Venlafaxine Venlafaxine No 1{table QD Venlafaxin HCl 75 MG HCl 75 MG t_with_ e HCl 75 food} MG Levothyroxi Levothyroxi No QD Levothyrox ne Sodium ne Sodium ine Sodium 50 MCG 50 MCG 50 MCG Geodon 60 Geodon 60 No 1{capsu BID Geodon 60 MG MG le_with MG _food} lamoTRIgine lamoTRIgine No 1{table QD lamoTRIgin 200 MG 200 MG t} e 200 MG Propranolol Propranolol No 1{table BID Propranolo HCl 20 MG HCl 20 MG t_on_an l HCl 20 _empty_ MG stomach } Effexor Effexor No Effexor hydrOXYzine hydrOXYzine No 1{table hydrOXYzin HCl 50 MG HCl 50 MG t_as_ne e HCl 50 eded} MG tiZANidine tiZANidine No 1{table tiZANidine HCl 4 MG HCl 4 MG t} HCl 4 MG LORazepam LORazepam No 1{table QD LORazepam 0.5 MG 0.5 MG t_at_be 0.5 MG dtime_a s_neede d} Gabapentin Gabapentin No Gabapentin 600 MG 600 MG 600 MG Zolpidem Zolpidem No 1{table QD Zolpidem Tartrate 10 Tartrate 10 t_at_be Tartrate MG MG dtime_a 10 MG s_neede d} Ziprasidone Ziprasidone No 2{capsu BID Ziprasidon HCl 60 MG HCl 60 MG le_with e HCl 60 _food} MG Propranolol Propranolol No Propranolo HCl 10 MG HCl 10 MG l HCl 10 MG [place] FLUoxetine FLUoxetine No 1{capsu QD FLUoxetine HCl 60 MG HCl 60 MG le} HCl 60 MG Vitamin D3 Vitamin D3 No 1{capsu QD Vitamin D3 2000 UNIT 2000 UNIT le} 2000 UNIT Effexor Effexor No Effexor Pantoprazol Pantoprazol No 1{table QD Pantoprazo e Sodium 40 e Sodium 40 t} le Sodium MG MG 40 MG Iron Iron No Iron Supplement Supplement Supplement Zolpidem Zolpidem No 1{table QD Zolpidem Tartrate 10 Tartrate 10 t_at_be Tartrate MG MG dtime_a 10 MG s_neede d} Ziprasidone Ziprasidone No 2{capsu QD Ziprasidon HCl 60 MG HCl 60 MG le_with e HCl 60 _food} MG Propranolol Propranolol No Propranolo HCl 10 MG HCl 10 MG l HCl 10 MG Amitiza 24 Amitiza 24 No 1{capsu BID Amitiza 24 MCG MCG le_with MCG _food} baclofen baclofen No baclofen 10mg 10mg 10mg Venlafaxine Venlafaxine No 1{table QD Venlafaxin HCl 50 MG HCl 50 MG t_with_ e HCl 50 food} MG Levothyroxi Levothyroxi No Levothyrox ne Sodium ne Sodium ine Sodium 50 MCG 50 MCG 50 MCG clonazePAM clonazePAM No 1{table clonazePAM 0.5 MG 0.5 MG t_at_be 0.5 MG dtime} Gabapentin Gabapentin No Gabapentin 600 MG 600 MG 600 MG tiZANidine tiZANidine No tiZANidine HCl 4 MG HCl 4 MG HCl 4 MG Geodon 60 Geodon 60 No 1{capsu BID Geodon 60 MG MG le_with MG _food} Wellbutrin Wellbutrin No 1{table QD Wellbutrin XL 150 MG XL 150 MG t_in_th XL 150 MG e_morni ng} hydrOXYzine hydrOXYzine No 1{table QD hydrOXYzin HCl 25 MG HCl 25 MG t} e HCl 25 MG Pantoprazol Pantoprazol No Pantoprazo e Sodium 40 e Sodium 40 le Sodium MG MG 40 MG Promethazin Promethazin No QID Promethazi e-DM e-DM ne-DM 6.25-15 6.25-15 6.25-15 MG/5ML MG/5ML MG/5ML [place] lamoTRIgine lamoTRIgine No 1{table QD lamoTRIgin 100 MG 100 MG t} e 100 MG clonazePAM clonazePAM No 1{table clonazePAM 0.5 MG 0.5 MG t_at_be 0.5 MG dtime} Iron Iron No Iron Supplement Supplement Supplement Amitiza 24 Amitiza 24 No 1{capsu BID Amitiza 24 MCG MCG le_with MCG _food} Ziprasidone Ziprasidone No 2{capsu QD Ziprasidon HCl 60 MG HCl 60 MG le_with e HCl 60 _food} MG Wellbutrin Wellbutrin No 1{table QD Wellbutrin XL 150 MG XL 150 MG t_in_th XL 150 MG e_morni ng} Venlafaxine Venlafaxine No 1{table QD Venlafaxin HCl 50 MG HCl 50 MG t_with_ e HCl 50 food} MG Propranolol Propranolol No Propranolo HCl 10 MG HCl 10 MG l HCl 10 MG Effexor Effexor No Effexor [place] Pantoprazol Pantoprazol No Pantoprazo e Sodium 40 e Sodium 40 le Sodium MG MG 40 MG lamoTRIgine lamoTRIgine No 1{table QD lamoTRIgin 100 MG 100 MG t} e 100 MG hydrOXYzine hydrOXYzine No 1{table QD hydrOXYzin HCl 25 MG HCl 25 MG t} e HCl 25 MG Levothyroxi Levothyroxi No Levothyrox ne Sodium ne Sodium ine Sodium 50 MCG 50 MCG 50 MCG Promethazin Promethazin No QID Promethazi e-DM e-DM ne-DM 6.25-15 6.25-15 6.25-15 MG/5ML MG/5ML MG/5ML baclofen baclofen No baclofen 10mg 10mg 10mg FLUoxetine FLUoxetine No 1{capsu QD FLUoxetine HCl 60 MG HCl 60 MG le} HCl 60 MG Geodon 60 Geodon 60 No 1{capsu BID Geodon 60 MG MG le_with MG _food} Gabapentin Gabapentin No Gabapentin 600 MG 600 MG 600 MG Vitamin D3 Vitamin D3 No 1{capsu QD Vitamin D3 2000 UNIT 2000 UNIT le} 2000 UNIT Zolpidem Zolpidem No 1{table QD Zolpidem Tartrate 10 Tartrate 10 t_at_be Tartrate MG MG dtime_a 10 MG s_neede d} tiZANidine tiZANidine No tiZANidine HCl 4 MG HCl 4 MG HCl 4 MG Pantoprazol Pantoprazol No 1{table QD Pantoprazo e Sodium 40 e Sodium 40 t} le Sodium MG MG 40 MG tiZANidine tiZANidine No tiZANidine HCl 4 MG HCl 4 MG HCl 4 MG Gabapentin Gabapentin No BID Gabapentin 600 MG 600 MG 600 MG Zolpidem Zolpidem No 1{table QD Zolpidem Tartrate 10 Tartrate 10 t_at_be Tartrate MG MG dtime_a 10 MG s_neede d} tiZANidine tiZANidine No 1{table tiZANidine HCl 4 MG HCl 4 MG t} HCl 4 MG Venlafaxine Venlafaxine No 1{table QD Venlafaxin HCl 50 MG HCl 50 MG t_with_ e HCl 50 food} MG Propranolol Propranolol No 1{table BID Propranolo HCl 20 MG HCl 20 MG t_on_an l HCl 20 _empty_ MG stomach } Gabapentin Gabapentin No Gabapentin 600 MG 600 MG 600 MG Pantoprazol Pantoprazol No 1{table QD Pantoprazo e Sodium 40 e Sodium 40 t} le Sodium MG MG 40 MG Wellbutrin Wellbutrin No 1{table QD Wellbutrin XL 150 MG XL 150 MG t_in_th XL 150 MG e_morni ng} Levothyroxi Levothyroxi No Levothyrox ne Sodium ne Sodium ine Sodium 50 MCG 50 MCG 50 MCG hydrOXYzine hydrOXYzine No 1{table QD hydrOXYzin HCl 25 MG HCl 25 MG t} e HCl 25 MG Vitamin D3 Vitamin D3 No 1{capsu QD Vitamin D3 2000 UNIT 2000 UNIT le} 2000 UNIT Promethazin Promethazin No QID Promethazi e-DM e-DM ne-DM 6.25-15 6.25-15 6.25-15 MG/5ML MG/5ML MG/5ML [place] Pantoprazol Pantoprazol No Pantoprazo e Sodium 40 e Sodium 40 le Sodium MG MG 40 MG Propranolol Propranolol No Propranolo HCl 10 MG HCl 10 MG l HCl 10 MG Geodon 60 Geodon 60 No 1{capsu BID Geodon 60 MG MG le_with MG _food} lamoTRIgine lamoTRIgine No 1{table QD lamoTRIgin 100 MG 100 MG t} e 100 MG FLUoxetine FLUoxetine No 1{capsu QD FLUoxetine HCl 60 MG HCl 60 MG le} HCl 60 MG Ziprasidone Ziprasidone No 2{capsu QD Ziprasidon HCl 60 MG HCl 60 MG le_with e HCl 60 _food} MG Effexor Effexor No Effexor baclofen baclofen No baclofen 10mg 10mg 10mg Iron Iron No Iron Supplement Supplement Supplement Levothyroxi Levothyroxi No QD Levothyrox ne Sodium ne Sodium ine Sodium 50 MCG 50 MCG 50 MCG Amitiza 24 Amitiza 24 No 1{capsu BID Amitiza 24 MCG MCG le_with MCG _food} clonazePAM clonazePAM No 1{table clonazePAM 0.5 MG 0.5 MG t_at_be 0.5 MG dtime} tiZANidine tiZANidine No tiZANidine HCl 4 MG HCl 4 MG HCl 4 MG Pantoprazol Pantoprazol No 1{table QD Pantoprazo e Sodium 40 e Sodium 40 t} le Sodium MG MG 40 MG Zolpidem Zolpidem No 1{table QD Zolpidem Tartrate 10 Tartrate 10 t_at_be Tartrate MG MG dtime_a 10 MG s_neede d} Gabapentin Gabapentin No BID Gabapentin 600 MG 600 MG 600 MG Venlafaxine Venlafaxine No 1{table QD Venlafaxin HCl 50 MG HCl 50 MG t_with_ e HCl 50 food} MG hydrOXYzine hydrOXYzine No 1{table QD hydrOXYzin HCl 25 MG HCl 25 MG t} e HCl 25 MG Immunizations Ordered Filled Immunization Date Status Comments Sourc e Immunization Name Name Diogenes COVID-19 Moderna COVID-19 2022-11-20 Completed [facility] - Vaccine, Bivalent Vaccine, Bivalent 08:50:00 [facility] Moderna COVID-19 Moderna COVID-19 2021-02-14 Completed [facility] - Vaccine Vaccine 09:03:00 [facility] Moderna COVID-19 Moderna COVID-19 2021-02-14 Completed [facility] - Vaccine Vaccine 09:03:00 [facility] Moderna COVID-19 Moderna COVID-19 2021-02-14 Completed [facility] - Vaccine Vaccine 09:03:00 [facility] Moderna COVID-19 Moderna COVID-19 2021-02-14 Completed [facility] - Vaccine Vaccine 09:03:00 [facility] Moderna COVID-19 Moderna COVID-19 2021-02-14 Completed [facility] - Vaccine Vaccine 09:03:00 [facility] Moderna COVID-19 Moderna COVID-19 2021-02-14 Completed [facility] - Vaccine Vaccine 09:03:00 [facility] Moderna COVID-19 Moderna COVID-19 2021-02-14 Completed [facility] - Vaccine Vaccine 09:03:00 [facility] Moderna COVID-19 Moderna COVID-19 2021-02-14 Completed [facility] - Vaccine Vaccine 09:03:00 [facility] Moderna COVID-19 Moderna COVID-19 2021-02-14 Completed [facility] - Vaccine Vaccine 09:03:00 [facility] Moderna COVID-19 Moderna COVID-19 2021-02-14 Completed [facility] - Vaccine Vaccine 09:03:00 [facility] Moderna COVID-19 Moderna COVID-19 2021-02-14 Completed [facility] - Vaccine Vaccine 09:03:00 [facility] Moderna COVID-19 Moderna COVID-19 2021-02-14 Completed [facility] - Vaccine Vaccine 09:03:00 [facility] Moderna COVID-19 Moderna COVID-19 2021-02-14 Completed [facility] - Vaccine Vaccine 09:03:00 [facility] Moderna COVID-19 Moderna COVID-19 2021-02-14 Completed [facility] - Vaccine Vaccine 09:03:00 [facility] Moderna COVID-19 Moderna COVID-19 2021-02-14 Completed [facility] - Vaccine Vaccine 09:03:00 [facility] Moderna COVID-19 Moderna COVID-19 2021-02-14 Completed [facility] - Vaccine Vaccine 09:03:00 [facility] Moderna COVID-19 Moderna COVID-19 2021-02-14 Completed [facility] - Vaccine Vaccine 09:03:00 [facility] Moderna COVID-19 Moderna COVID-19 2021-02-14 Completed [facility] - Vaccine Vaccine 09:03:00 [facility] Moderna COVID-19 Moderna COVID-19 2021-02-14 Completed [facility] - Vaccine Vaccine 09:03:00 [facility] Moderna COVID-19 Moderna COVID-19 2021-02-14 Completed [facility] - Vaccine Vaccine 09:03:00 [facility] Moderna COVID-19 Moderna COVID-19 2021-02-14 Completed [facility] - Vaccine Vaccine 09:03:00 [facility] Moderna COVID-19 Moderna COVID-19 2021-02-14 Completed [facility] - Vaccine Vaccine 09:03:00 [facility] Moderna COVID-19 Moderna COVID-19 2021-02-14 Completed [facility] - Vaccine Vaccine 09:03:00 [facility] Moderna COVID-19 Moderna COVID-19 2021-02-14 Completed [facility] - Vaccine Vaccine 09:03:00 [facility] Moderna COVID-19 Moderna COVID-19 2021-02-14 Completed [facility] - Vaccine Vaccine 09:03:00 [facility] SARS-COV-2 COVID-19 2021-02-10 Completed [facility] VACCINE 00:00:00 [facility] SARS-COV-2 COVID-19 2021-02-10 Completed [facility] VACCINE 00:00:00 [facility] SARS-COV-2 COVID-19 2021-02-10 Completed [facility] VACCINE 00:00:00 [facility] SARS-COV-2 COVID-19 2021-02-10 Completed [facility] of [facility] VACCINE 00:00:00 [facility] SARS-COV-2 COVID-19 2021-02-10 Completed [facility] of MODERNA 12+ YRS 00:00:00 [facility] ical VACCINE Branch SARS-COV-2 COVID-19 2021-02-10 Completed [facility] of MODERNA 12+ YRS 00:00:00 [facility] ical VACCINE Branch SARS-COV-2 COVID-19 2021-02-10 Completed [facility] of MODERNA 12+ YRS 00:00:00 [facility] ical VACCINE Branch SARS-COV-2 COVID-19 2021-02-10 Completed [facility] MODERNA VACCINE 00:00:00 [facility] ical Branch SARS-COV-2 COVID-19 2021-02-10 Completed [facility] of MODERNA 12+ YRS 00:00:00 [facility] ical VACCINE Branch SARS-COV-2 COVID-19 2021-02-10 Completed Unive rsity of MODERNA 12+ YRS 00:00:00 [facility] ical VACCINE Branch SARS-COV-2 COVID-19 2021-02-10 Completed Unive rsity of MODERNA 12+ YRS 00:00:00 [facility] ical VACCINE Branch SARS-COV-2 COVID-19 2021-02-10 Completed Unive rsity of [facility] VACCINE 00:00:00 [facility] SARS-COV-2 COVID-19 2021-02-10 Completed Unive rsity of [place] VACCINE 00:00:00 [facility] Branch Moderna COVID-19 Moderna COVID-19 2021-01-13 Completed [facility] - Vaccine Vaccine 16:57:00 [facility] Moderna COVID-19 Moderna COVID-19 2021-01-13 Completed [facility] - Vaccine Vaccine 16:57:00 [facility] Moderna COVID-19 Moderna COVID-19 2021-01-13 Completed [facility] - Vaccine Vaccine 16:57:00 [facility] Moderna COVID-19 Moderna COVID-19 2021-01-13 Completed [facility] - Vaccine Vaccine 16:57:00 [facility] Moderna COVID-19 Moderna COVID-19 2021-01-13 Completed [facility] - Vaccine Vaccine 16:57:00 [facility] Moderna COVID-19 Moderna COVID-19 2021-01-13 Completed [facility] - Vaccine Vaccine 16:57:00 [facility] Moderna COVID-19 Moderna COVID-19 2021-01-13 Completed [facility] - Vaccine Vaccine 16:57:00 [facility] Moderna COVID-19 Moderna COVID-19 2021-01-13 Completed [facility] - Vaccine Vaccine 16:57:00 [facility] Moderna COVID-19 Moderna COVID-19 2021-01-13 Completed [facility] - Vaccine Vaccine 16:57:00 [facility] Moderna COVID-19 Moderna COVID-19 2021-01-13 Completed [facility] - Vaccine Vaccine 16:57:00 [facility] Moderna COVID-19 Moderna COVID-19 2021-01-13 Completed [facility] - Vaccine Vaccine 16:57:00 [facility] Moderna COVID-19 Moderna COVID-19 2021-01-13 Completed [facility] - Vaccine Vaccine 16:57:00 [facility] Moderna COVID-19 Moderna COVID-19 2021-01-13 Completed [facility] - Vaccine Vaccine 16:57:00 [facility] Moderna COVID-19 Moderna COVID-19 2021-01-13 Completed [facility] - Vaccine Vaccine 16:57:00 [facility] Moderna COVID-19 Moderna COVID-19 2021-01-13 Completed [facility] - Vaccine Vaccine 16:57:00 [facility] Moderna COVID-19 Moderna COVID-19 2021-01-13 Completed [facility] - Vaccine Vaccine 16:57:00 [facility] Moderna COVID-19 Moderna COVID-19 2021-01-13 Completed [facility] - Vaccine Vaccine 16:57:00 [facility] Moderna COVID-19 Moderna COVID-19 2021-01-13 Completed [facility] - Vaccine Vaccine 16:57:00 [facility] Moderna COVID-19 Moderna COVID-19 2021-01-13 Completed [facility] - Vaccine Vaccine 16:57:00 [facility] Moderna COVID-19 Moderna COVID-19 2021-01-13 Completed [facility] - Vaccine Vaccine 16:57:00 [facility] Moderna COVID-19 Moderna COVID-19 2021-01-13 Completed [facility] - Vaccine Vaccine 16:57:00 [facility] Moderna COVID-19 Moderna COVID-19 2021-01-13 Completed [facility] - Vaccine Vaccine 16:57:00 [facility] Moderna COVID-19 Moderna COVID-19 2021-01-13 Completed [facility] - Vaccine Vaccine 16:57:00 [facility] Moderna COVID-19 Moderna COVID-19 2021-01-13 Completed [facility] - Vaccine Vaccine 16:57:00 [facility] Moderna COVID-19 Moderna COVID-19 2021-01-13 Completed [facility] - Vaccine Vaccine 16:57:00 [facility] SARS-COV-2 COVID-19 2021-01-13 Completed Unive rsity of [place] VACCINE 00:00:00 [facility] ical Branch SARS-COV-2 COVID-19 2021-01-13 Completed Unive rsity of [facility] VACCINE 00:00:00 [place] [facility] SARS-COV-2 COVID-19 2021-01-13 Completed Unive rsity of [facility] VACCINE 00:00:00 [place] [facility] SARS-COV-2 COVID-19 2021-01-13 Completed Unive rsity of [facility] VACCINE 00:00:00 [place] [facility] SARS-COV-2 COVID-19 2021-01-13 Completed Unive rsity of MODERNA 12+ YRS 00:00:00 [place] [facility] ical VACCINE Branch SARS-COV-2 COVID-19 2021-01-13 Completed Unive rsity of MODER[facility] 12+ YRS 00:00:00 [place] [facility] ical VACCINE Branch SARS-COV-2 COVID-19 2021-01-13 Completed Unive rsity of MODERNA 12+ YRS 00:00:00 [place] [facility] ical VACCINE Branch SARS-COV-2 COVID-19 2021-01-13 Completed Unive rsity of [facility] VACCINE 00:00:00 [place] [facility] SARS-COV-2 COVID-19 2021-01-13 Completed Unive rsity of MODER[place] 12+ YRS 00:00:00 [place] [facility] ical VACCINE Branch SARS-COV-2 COVID-19 2021-01-13 Completed Unive rsity of MODERNA 12+ YRS 00:00:00 [place] [facility] VACCINE Branch SARS-COV-2 COVID-19 2021-01-13 Completed Unive rsity of MODERNA 12+ YRS 00:00:00 [place] [facility] ical VACCINE Branch SARS-COV-2 COVID-19 2021-01-13 Completed Unive rsity of [facility] VACCINE 00:00:00 [facility] ical Branch SARS-COV-2 COVID-19 2021-01-13 Completed Unive rsity of [place] VACCINE 00:00:00 [facility] Branch Vital Signs Vital Name Observation Time Observation Value Comments Source height 2022-09-22 11:10:00 61.5 [in_i] [facility] weight 2022-09-22 11:10:00 143 [lb_av] [facility] temperature 2022-09-22 11:10:00 98 [degF] [facility] bmi 2022-09-22 11:10:00 26.58 kg/m2 [facility] blood pressure 2022-09-22 11:10:00 128 mm[Hg] [facility] - systolic [facility] blood pressure 2022-09-22 11:10:00 76 mm[Hg] [facility] - diastolic [facility] height 2022-09-06 14:30:00 61.5 [in_i] Common [facility] weight 2022-09-06 14:30:00 145 [lb_av] [facility] temperature 2022-09-06 14:30:00 97.4 [degF] [facility] bmi 2022-09-06 14:30:00 26.95 kg/m2 Common [facility] blood pressure 2022-09-06 14:30:00 125 mm[Hg] [facility] - systolic [facility] blood pressure 2022-09-06 14:30:00 84 mm[Hg] [facility] - diastolic [facility] height 2022-07-29 14:30:00 61.5 [in_i] Common [facility] weight 2022-07-29 14:30:00 145 [lb_av] Common [facility] temperature 2022-07-29 14:30:00 97.0 [degF] Common [facility] bmi 2022-07-29 14:30:00 26.95 kg/m2 Common [facility] blood pressure 2022-07-29 14:30:00 128 mm[Hg] [facility] - systolic [facility] blood pressure 2022-07-29 14:30:00 82 mm[Hg] [facility] - diastolic [facility] Systolic blood 2022-07-26 20:00:00 161 mm[Hg] Univer [facility] of [facility] Diastolic blood 2022-07-26 20:00:00 94 mm[Hg] [facility] of [facility] Heart rate 2022-07-26 20:00:00 78 /min [facility] Oxygen saturation in 2022-07-26 20:00:00 100 /min [facility] Arterial blood by [facility] Pulse oximetry Branch Respiratory rate 2022-07-26 19:40:00 16 /min [facility] Body temperature 2022-07-26 16:42:00 36.89 Sarah [facility] Body height 2022-07-26 16:42:00 157.5 cm [facility] Body weight 2022-07-26 16:42:00 72.576 kg [facility] BMI 2022-07-26 16:42:00 29.26 kg/m2 [facility] height 2022-07-09 09:30:00 61.5 [in_i] Common [facility] weight 2022-07-09 09:30:00 145 [lb_av] [facility] temperature 2022-07-09 09:30:00 97.1 [degF] Common [facility] bmi 2022-07-09 09:30:00 26.95 kg/m2 Common [facility] blood pressure 2022-07-09 09:30:00 100 mm[Hg] Common [facility] - systolic [facility] blood pressure 2022-07-09 09:30:00 68 mm[Hg] Common [facility] - diastolic [facility] height 2022-06-30 15:00:00 61.5 [in_i] [facility] weight 2022-06-30 15:00:00 142 [lb_av] [facility] temperature 2022-06-30 15:00:00 97.9 [degF] [facility] bmi 2022-06-30 15:00:00 26.39 kg/m2 [facility] oximetry 2022-06-30 15:00:00 98 % [facility] respiratory rate 2022-06-30 15:00:00 16 /min [facility] - [facility] blood pressure 2022-06-30 15:00:00 145 mm[Hg] Common [facility] - systolic [facility] blood pressure 2022-06-30 15:00:00 70 mm[Hg] Common [facility] - diastolic [facility] Respiratory rate 2022-06-21 12:47:00 16 /min Univ [facility] Oxygen saturation in 2022-06-21 12:47:00 94 /min [facility] Arterial blood by [facility] Pulse oximetry Branch Systolic blood 2022-06-21 12:43:00 102 mm[Hg] Univer sity of pressure [facility] Diastolic blood 2022-06-21 12:43:00 59 mm[Hg] Unive rsity of pressure [facility] Heart rate 2022-06-21 12:43:00 70 /min [facility] Body temperature 2022-06-21 12:43:00 35.72 Sarah [facility] 2022-06-21 08:14:00 72.666 kg [facility] BMI 2022-06-21 08:14:00 29.30 kg/m2 [facility] Body height 2022-06-17 03:46:00 157.5 cm Universi [facility] height 2022-06-09 13:00:00 61.5 [in_i] Common [facility] weight 2022-06-09 13:00:00 148 [lb_av] [facility] temperature 2022-06-09 13:00:00 98.7 [degF] Common [facility] bmi 2022-06-09 13:00:00 27.51 kg/m2 [facility] oximetry 2022-06-09 13:00:00 96 % [facility] respiratory rate 2022-06-09 13:00:00 16 /min Comm on [facility] blood pressure 2022-06-09 13:00:00 138 mm[Hg] Common [facility] - systolic [facility] blood pressure 2022-06-09 13:00:00 80 mm[Hg] Common [facility] - diastolic [facility] height 2022-06-09 13:00:00 62 [in_i] Common [facility] weight 2022-06-09 13:00:00 148 [lb_av] [facility] temperature 2022-06-09 13:00:00 98.7 [degF] Common [facility] bmi 2022-06-09 13:00:00 27.07 kg/m2 [facility] oximetry 2022-06-09 13:00:00 96 % Common [facility] respiratory rate 2022-06-09 13:00:00 16 /min Comm on [facility] blood pressure 2022-06-09 13:00:00 138 mm[Hg] Common [facility] - systolic [facility] blood pressure 2022-06-09 13:00:00 80 mm[Hg] Common [facility] - diastolic [facility] WEIGHT 2022-04-14 13:36:00 65.454 kg WEIGHT 2022-04-14 13:36:00 65.454 kg height 2022-02-09 13:10:00 62 [in_i] Common [facility] weight 2022-02-09 13:10:00 148.8 [lb_av] [facility] temperature 2022-02-09 13:10:00 96.6 [degF] Common [facility] bmi 2022-02-09 13:10:00 27.21 kg/m2 [facility] oximetry 2022-02-09 13:10:00 100 % [facility] respiratory rate 2022-02-09 13:10:00 18 /min Comm on [facility] blood pressure 2022-02-09 13:10:00 131 mm[Hg] Common [facility] - systolic [facility] blood pressure 2022-02-09 13:10:00 69 mm[Hg] Common [facility] - diastolic [facility] HEIGHT 2022-01-04 10:22:00 157.5 cm WEIGHT 2022-01-04 10:22:00 67.087 kg height 2021-10-12 14:10:00 62 [in_i] [facility] weight 2021-10-12 14:10:00 155 [lb_av] [facility] temperature 2021-10-12 14:10:00 98 [degF] [facility] bmi 2021-10-12 14:10:00 28.35 kg/m2 [facility] blood pressure 2021-10-12 14:10:00 121 mm[Hg] [facility] - [facility] blood pressure 2021-10-12 14:10:00 76 mm[Hg] [facility] - diastolic [facility] Heart rate 2021-09-22 18:07:00 78 /min Aayushi richard [facility] Systolic blood 2021-09-22 18:06:00 117 mm[Hg] Irasema portillo [facility] Diastolic blood 2021-09-22 18:06:00 65 mm[Hg] Unive rsity of pressure [facility] Oxygen saturation in 2021-09-22 18:06:00 100 /min [facility] of Arterial blood by [place] [facility] Pulse oximetry Branch Respiratory rate 2021-09-22 18:05:00 21 /min Univ ers[facility] [place] [facility] Body temperature 2021-09-22 17:42:00 36.5 Sarah Univ [facility] [place] [facility] Body height 2021-09-14 14:52:00 157.5 cm [facility] Body weight 2021-09-14 14:52:00 70.3 kg [facility] [place] [facility] BMI 2021-09-14 14:52:00 28.34 kg/m2 [facility] [place] [facility] Heart rate 2021-09-22 18:01:00 62 /min [facility] [place] [facility] Respiratory rate 2021-09-22 18:01:00 30 /min Univ ers[facility] Oxygen saturation in 2021-09-22 18:01:00 100 /min [facility] Arterial blood by [place] [facility] Pulse oximetry Branch Systolic blood 2021-09-22 17:56:00 105 mm[Hg] Univer sity of pressure [facility] Diastolic blood 2021-09-22 17:56:00 62 mm[Hg] Unive rsity of pressure [facility] Body temperature 2021-09-22 17:42:00 36.5 Sarah [facility] Body height 2021-09-14 14:52:00 157.5 cm [facility] Body weight 2021-09-14 14:52:00 70.3 kg [facility] [place] [facility] BMI 2021-09-14 14:52:00 28.34 kg/m2 [facility] [place] [facility] Heart rate 2021-08-20 18:49:00 62 /min [facility] [place] [facility] Oxygen saturation in 2021-08-20 18:49:00 100 /min [facility] Arterial blood by [place] [facility] Pulse oximetry Branch Respiratory rate 2021-08-20 18:47:00 19 /min Univ [facility] Systolic blood 2021-08-20 18:45:00 127 mm[Hg] Univer sity of pressure [facility] Diastolic blood 2021-08-20 18:45:00 74 mm[Hg] Unive rsity of pressure [facility] Body temperature 2021-08-20 18:33:00 36.39 Sarah Univ ersity of [facility] Body height 2021-08-20 17:49:00 157.5 cm [facility] [place] [facility] [place] Body weight 2021-08-20 17:49:00 70.308 kg Universi ty of [facility] BMI 2021-08-20 17:49:00 28.35 kg/m2 Universi ty of [facility] Heart rate 2021-08-20 18:49:00 62 /min Universi ty of [facility] Oxygen saturation in 2021-08-20 18:49:00 100 /min [facility] Arterial blood by [facility] Pulse oximetry Branch Respiratory rate 2021-08-20 18:47:00 19 /min Univ ersity of [facility] Systolic blood 2021-08-20 18:45:00 127 mm[Hg] Univer sity of pressure [facility] Diastolic blood 2021-08-20 18:45:00 74 mm[Hg] Unive rsity of pressure [facility] Body temperature 2021-08-20 18:33:00 36.39 Sarah Univ ersity of [facility] Body height 2021-08-20 17:49:00 157.5 cm Universi ty of [facility] Body weight 2021-08-20 17:49:00 70.308 kg Universi ty of [facility] BMI 2021-08-20 17:49:00 28.35 kg/m2 Universi ty of [facility] Systolic blood 2019-07-06 18:23:00 126 mm[Hg] [facility] pressure Medicine Diastolic blood 2019-07-06 18:23:00 81 mm[Hg] [facility] pressure Medicine Heart rate 2019-07-06 18:23:00 68 /min [facility] Respiratory rate 2019-07-06 18:23:00 16 /min [facility] Body weight 2019-07-06 18:23:00 70.489 kg [facility] Systolic blood 2019-07-06 18:23:00 126 mm[Hg] [facility] pressure Medicine Diastolic blood 2019-07-06 18:23:00 81 mm[Hg] [facility] Medicine Heart rate 2019-07-06 18:23:00 68 /min [facility] Respiratory rate 2019-07-06 18:23:00 16 /min [facility] Body weight 2019-07-06 18:23:00 70.489 kg [facility] Systolic blood 2022-04-14 13:36:00 118 mm[Hg] [facility] Diastolic blood 2022-04-14 13:36:00 77 mm[Hg] [facility] Heart rate 2022-04-14 13:36:00 69 /min [facility] Body temperature 2022-04-14 13:36:00 36.67 Sarah [facility] Body weight 2022-04-14 13:36:00 65.454 kg [facility] BMI 2022-04-14 13:36:00 26.39 kg/m2 [facility] Procedures Procedure Date / Time Performing Source Performed Clinician MR LUMBAR SPINE WO CONTRAST 2022-09-23 Shan Santana Uni versity of 21:10:02 S [facility] ASSIGNMENT OF BENEFITS 2022-09-23 [facility] 20:12:40 Unassigned, No [facility] COMP. METABOLIC PANEL (90394) 2022-07-26 Nilay Lennon iversity of 18:57:00 [facility] CBC WITH DIFF 2022-07-26 Lennon, Nilay [place] of 18:57:00 [facility] URINALYSIS 2022-07-26 Lennon, Nilay [place] of 18:57:[address] [facility] [address] ABDOMEN PELVIS WO CONTRAST 2022-07-26 Nilay Lennon iversity of 18:03:32 [facility] CONSENT/REFUSAL FOR DIAGNOSIS AND 2022-07-26 [facility] of TREATMENT 16:32:59 Unassigned, No [facility] HEPATIC FUNCTION PANEL ([id number]) 2022-06-21 Tika Cummings niversity of (ALB,T.PRO,BILI 11:05:00 Angela [facility] T,BU/BC,ALT,AST,ALK PHOS) Branch BASIC METABOLIC PANEL (NA, K, CL, 2022-06-21 Tika Cummings of CO2, GLUCOSE, BUN, CREATININE, CA) 11:05:00 [facility] URINALYSIS 2022-06-20 Em[facility] of 22:41:00 [facility] BASIC METABOLIC PANEL (NA, K, CL, 2022-06-20 Em[facility] of CO2, GLUCOSE, BUN, CREATININE, CA) 08:54:00 [facility] CBC WITH DIFF 2022-06-20 Em[facility] of 08:54:00 [facility] HEPATIC FUNCTION PANEL ([id number]) 2022-06-19 Tika Cummings niversity of (ALB,T.PRO,BILI 09:22:00 [facility] T,BU/BC,ALT,AST,ALK PHOS) [place] BASIC METABOLIC PANEL (NA, K, CL, 2022-06-19 Emiliano [facility] CO2, GLUCOSE, BUN, CREATININE, CA) 09:22:00 [facility] CBC WITH DIFF 2022-06-19 Em[facility] of 09:22:00 [facility] BLOOD CULTURE SCREEN 2022-06-19 [facility] of 03:22:00 [facility] BLOOD CULTURE SCREEN 2022-06-19 [facility] of 03:16:00 [facility] XR CHEST 1 VW 2022-06-19 [place] [facility] of 01:50:09 [facility] HEPATIC FUNCTION PANEL ([id number]) 2022-06-18 Tika Cummings niversity of (ALB,T.PRO,BILI 10:14:00 [facility] T,BU/BC,ALT,AST,ALK PHOS) Branch PHOSPHORUS 2022-06-17 Herbie Olvera of 09:00:00 [facility] MAGNESIUM 2022-06-17 Herbie Olvera [place] of 09:00:00 [facility] TROPONIN I 2022-06-17 Herbie Olvera of 09:00:00 [facility] THYROID STIMULATING HORMONE 2022-06-17 Herbie Olvera Univ ersity of 09:00:00 [facility] COMP. METABOLIC PANEL ([id number]) 2022-06-17 Herbie Olvera iversity of 09:00:00 [facility] LIPID PANEL ([id number])(TOTAL 2022-06-17 Herbie Olvera [facility] sit of CHOLESTEROL, TRIGLYCERIDES, HDL) 09:00:00 [facility] CBC WITH DIFF 2022-06-17 Herbie Olvera [place] of 09:00:00 [facility] PROTHROMBIN TIME / INR 2022-06-17 [facility] 09:[facility]00 [facility] HEPATITIS B SURFACE ANTIBODY 2022-06-17 Jesus Mora [facility] versity of 09:00:00 [facility] HEPATITIS B SURFACE ANTIGEN 2022-06-17 Jesus Mora [facility] ersity of 09:00:00 [facility] HCV ANTIBODY 2022-06-17 Jesus Mora [place] of 09:00:00 [facility] HBC ANTIBODY (IGM & IGG) 2022-06-17 Jesus Mora [facility] ity of 09:00:00 [facility] LAMOTRIGINE, LEVEL 2022-06-17 [facility] 09:00:00 [facility] N-TERMINAL PRO-BNP 2022-06-17 [facility] 09:00:00 [facility] PROCALCITONIN 2022-06-17 Wade [facility] of 09:00:[address] [facility] [address] ABDOMEN PELVIS W CONTRAST 2022-06-17 Hill Sawyer Uni versity of 00:50:10 [facility] CBC WITH DIFF 2022-06-17 Hill Sawyer [place] of 00:24:00 [facility] GLYCOSYLATED HEMOGLOBIN (A1C) 2022-06-17 Herbie Olvera Un iversity of 00:24:00 [facility] HB ECG ROUTINE & RHYTHM STRIP 2022-06-17 Hill Sawyer Un iversity of 00:06:46 [facility] BLOOD CULTURE SCREEN 2022-06-17 Hill Sawyer [place] of 00:00:00 [facility] LIPASE 2022-06-17 Hill Sawyer [place] of 00:00:00 [facility] MAGNESIUM 2022-06-17 Hill Sawyer [place] of 00:00:00 [facility] TROPONIN I 2022-06-17 Hill Sawyer of 00:00:00 [facility] COMP. METABOLIC PANEL ([id number]) 2022-06-17 Hill Sawyer Un iversity of 00:00:00 [facility] URINALYSIS 2022-06-17 Hill Sawyer [place] of 00:00:00 [facility] COVID-19 (ID NOW RAPID TESTING) 2022-06-17 Hill Sawyer [place] of 00:00:00 [facility] LAB ONLY COVID INTERPRETATION 2022-06-17 Hill Sawyer Un iversity of 00:00:00 [facility] NOTICE OF PRIVACY PRACTICES 2022-06-16 Doctor [facility] ersity of 22:38:45 Unassigned, No [facility] Name Branch CONSENT/REFUSAL FOR DIAGNOSIS AND 2022-06-16 Doctor University of TREATMENT 22:35:24 Unassigned, No [facility] Name Branch HB CREATININE BLOOD 2021-10-16 Carlton Echeverria [place] f 21:37:00 [facility] NOTICE OF BILLING PRACTICES FOR 2021-10-16 Doctor [place] of MEDICARE PATIENTS 21:05:05 Unassigned, No [facility] Name Branch [facility] PATIENT FINANCIAL POLICY 2021-10-16 Doctor Un iversity of 21:04:40 Unassigned, No [place] [facility] Name Branch NO SHOW OR MISSED APPOINTMENT 2021-10-16 Doctor Un iversity of POLICY ACKNOWLEDGEMENT 21:04:21 Unassigned, No [facility] Name Branch CONSENT/REFUSAL FOR DIAGNOSIS AND 2021-10-16 Doctor [place] of TREATMENT 21:03:59 Unassigned, No [facility] ASSIGNMENT OF BENEFITS 2021-10-16 Doctor [facility] y of 21:03:40 Unassigned, No [facility] Branch COLONOSCOPY 2021-09-22 Carlton Echeverria [place] of 16:38:00 [facility] ESOPHAGOGASTRODUODENOSCOPY 2021-09-22 Carlton E[facility]verria [facility] rsity of 16:38:00 [facility] COLONOSCOPY (ENDO) 2021-09-22 Gloria Platt [facility] 16:33:27 [facility] COLONOSCOPY (ENDO) 2021-09-22 Gloria Platt [facility] 16:33:27 [facility] EGD (ENDO) 2021-09-22 Gloria Platt [facility] 16:23:06 [facility] EGD (ENDO) 2021-09-22 Gloria Platt [facility] 16:23:06 [facility] DAY SURGERY - ADC 2021-09-22 Doctor [place] of 06:01:00 Unassigned, No [facility] EXTERNAL PROVIDER RECORDS 2021-09-16 Doctor Univer sity of 06:01:00 Unassigned, No [facility] EXTERNAL PROVIDER RECORDS 2021-09-16 Doctor Univer sity of 06:01:00 Unassigned, No [facility] EXTERNAL PROVIDER RECORDS 2021-09-14 Doctor Univer sity of 06:01:00 Unassigned, No [facility] EXTERNAL PROVIDER RECORDS 2021-09-14 Doctor Univer sity of 06:01:00 Unassigned, No [facility] COLONOSCOPY (ENDO) 2021-08-20 Carlton Echeverria [facility] 18:15:37 [facility] COLONOSCOPY 2021-08-20 Carlton Echeverria [facility] 18:01:00 [facility] PATIENT QUESTIONNAIRE 2021-08-20 Doctor [place] of 06:01:00 Unassigned, No [facility] EXTERNAL PROVIDER RECORDS 2021-08-03 Doctor Univer sity of 05:01:00 Unassigned, No [facility] EXTERNAL PROVIDER RECORDS 2021-08-03 Doctor Univer sity of 05:01:00 Unassigned, No [facility] Plan of Care Planned Activity Planned Date Details Comments Source Future Scheduled 2031-09-22 Screening for malignant [facility] 00:00:00 neoplasm of colon Medical Ce nter (procedure) [code = 320880655] Future Scheduled 2031-09-22 Screening for malignant [facility] 00:00:00 neoplasm of colon Medical Ce nter (procedure) [code = 889823297] Future Scheduled 2023-06-[address] [facility] 00:00:00 (Season Ended) [code = Medic al Center Influenza Vaccine (Season Ended)] Future Scheduled 2023-04-[address] [facility] 00:00:00 Counseling and Medical Cente r Screening (12+) [code = Tobacco Cessation Counseling and Screening (12+)] Future Scheduled 2022-10-[address] [facility] 00:00:00 (12+) [code = Medical Center DEPRESSION SCREENING (12+)] Future Scheduled 2021-04-11 COVID-19 VACCINE (3 - [facility]00 Booster for Moderna Medical Center series) [code = COVID-19 VACCINE (3 - Booster for Moderna series)] Future Scheduled 2020-06-[address] [facility] 00:00:00 WELLNESS (YEAR 2 or Medical Center FIRST YEAR if no IPPE) [code = MEDICARE ANNUAL WELLNESS (YEAR 2 or FIRST YEAR if no IPPE)] Future Scheduled 2013-12-26 SHINGLES VACCINES ([address] [facility] 00:00:00 2) [code = SHINGLES Medical Center VACCINES (1 of 2)] Future Scheduled 2008-12-26 Lipid panel (procedure) [facility] 00:00:00 [code = 78432597] Medical Ce nter Future Scheduled 1984-12-26 Screening for malignant [facility] 00:00:00 neoplasm of cervix Medical C enter (procedure) [code = 513295621] Future Scheduled 1982-12-26 DTAP/TDAP/TD VACCINES [facility] 00:00:00 (1 - Tdap) [code = Medical C enter DTAP/TDAP/TD VACCINES (1 - Tdap)] Future Scheduled 1981-12-26 HEPATITIS C SCREENING [facility] 00:00:00 [code = HEPATITIS C Medical Center SCREENING] Future Scheduled 1963 Screening for malignant [facility] 00:00:00 neoplasm of breast Medical C enter (procedure) [code = 744640880] Future Scheduled 1963 CT Colonography (combo) [facility] 00:00:00 [code = CT Colonography [facility] (combo)] Future Scheduled 1963 Screening for malignant [facility] 00:00:00 neoplasm of colon Medical Ce nter (procedure) [code = 577022178] Future Scheduled 1963 Screening for malignant [facility] 00:00:00 neoplasm of colon Medical Ce nter (procedure) [code = 707338714] Future Scheduled 1965 Sigmoidoscopy [code = [facility] Sigmoidoscopy] Medical Cente r Future Scheduled COLON CANCER SCREENING: [facility] COLONOSCOPY [code = Medicine COLON CANCER SCREENING: COLONOSCOPY] Future Scheduled MAMMOGRAM ANNUAL [code [employer] Test = MAMMOGRAM ANNUAL] Medicine Future Scheduled MEDICARE AWV [code = [facility] of Test MEDICARE AWV] Medicine Future Scheduled TETANUS SHOT (ADULT) [facility] Test [code = TETANUS SHOT Medicin e (ADULT)] Future Scheduled HEPATITIS C SCREENING [facility] of Test [code = HEPATITIS C Medicine SCREENING] Future Scheduled HIV SCREENING [code = [facility] of Test HIV SCREENING] Medicine Future Scheduled CERVICAL CANCER [facility] Test SCREENING 3 YEAR FOLLOW Medi cine UP [code = CERVICAL CANCER SCREENING 3 YEAR FOLLOW UP] Future Scheduled FLU VACCINE > 6 MONTHS [facility] of Test [code = FLU VACCINE > 6 Medi cine MONTHS] Encounters Start End Encounter Admission Attending Care Care Encounter Source Date/Time Date/Time Type Type Clinicians Facility Department ID 2023-03-18 Outpatient Platt, STLMLC STLMLC [id number] Common 10:58:00 Gloria [id number] [facility] 2023-01-18 Outpatient Platt, STLMLC STLMLC [id number] Common 09:19:00 Gloria [id number] [facility] 2023-01-03 Outpatient Platt, STLMLC STLMLC [id number] Common 13:22:00 Gloria 04589 [facility] 2022-09-20 Outpatient Platt, STLMLC STLMLC [id number] Common 09:30:01 Gloria 92702 [facility] 2022-07-09 Outpatient Platt, STLMLC STLMLC [id number] Common 10:44:00 Gloria [facility] 2022-07-06 Outpatient Platt, STLMLC STLMLC [id number] Common 09:19:01 Gloria [facility] 2022-07-05 Outpatient Platt, STLMLC STLMLC [id number] Common 16:24:02 Gloria [facility] 2022-07-01 Outpatient Platt, STLMLC STLMLC [id number] Common 09:38:00 Gloria [facility] 2022-06-29 Outpatient Platt, STLMLC STLMLC [id number] Common 11:52:00 Gloria [facility] 2021-10-28 Outpatient Platt, STLMLC STLMLC [id number] Common 14:00:30 Gloria [id number] [facility] 2021-10-28 Outpatient Platt, STLMLC STLMLC [id number] Common 13:48:24 Gloria 73110 [facility] 2021-10-28 Outpatient Platt, STLMLC STLMLC [id number] Common 13:04:06 Gloria 36779 [facility] 2021-10-28 Outpatient Platt, STLMLC STLMLC [id number] Common 12:33:05 Gloria 58225 [facility] 2021-10-28 Outpatient Platt, STLMLC STLMLC [id number] Common 12:32:02 Gloria 62744 [facility] 2021-10-28 Outpatient Platt, STLMLC STLMLC [id number] Common 12:11:19 Gloria 36818 [facility] 2021-10-28 Outpatient Platt, STLMLC STLMLC [id number] Common 12:06:04 Gloria [id number] [facility] 2021-10-28 Outpatient Platt, STLMLC STLMLC [id number] Common 11:57:23 Gloria 16989 [facility] 2021-10-28 Outpatient Platt, STLMLC STLMLC [id number] Common 11:38:16 Gloria 35479 [facility] 2021-10-28 Outpatient Platt, STLMLC STLMLC [id number] Common 11:16:03 Gloria 36326 [facility] 2021-10-28 Outpatient Platt, STLMLC STLMLC [id number] Common 11:11:18 Gloria 19901 [facility] 2021-10-28 Outpatient Platt, STLMLC STLMLC [id number] Common 11:09:24 Gloria 71073 [facility] 2021-10-28 Outpatient Platt, STLMLC STLMLC [id number] Common 11:08:56 Gloria 95557 [facility] 2021-10-28 Outpatient Platt, [facility] [id number] Common 11:08:09 [facility] 37674 [facility] 2022-11-16 2022-11-16 CAV Marla Abhinav 2.16.840. 2.16.840.1. C [id number] [facility] 21:30:00 22:30:00 [id number] [facility] [id number] 2022-11-11 2022-11-11 Telephone Roly [facility] [id number] [facility] [address] 00:00:00 00:00:00 [facility] 2022-11-10 2022-11-10 (TEL) [facility] [id number] Co mmon 00:00:00 00:00:00 [facility] 2022-11-09 2022-11-09 Outpatient Alex_R [facility] [id number] Devoted 00:00:00 00:00:00 [id number] [facility] 2022-11-09 2022-11-09 [facility] [id number] Devoted 00:00:00 00:00:00 [id number] Medica l Group 2022-10-29 2022-10-29 (TEL) [facility] [id number] Co mmon 00:00:00 00:00:00 [facility] 2022-10-25 2022-10-25 (TEL) [facility] [id number] Co mmon 00:00:00 00:00:00 [facility] 2022-09-23 2022-09-23 [id number] Univers 14:15:10 23:59:00 SHAN ity of [facility] 2022-09-23 2022-09-23 [facility] 1.2.840.114 [id number] Univers 14:15:10 23:59:00 Encounter Shan Peck [place] 350.1.13.10 itanthony [facility] 4.2.7.2.686 [facility] [id number] [facility] 804 Branch 2022-09-23 2022-09-23 Orders Doctor GRISEL [id number] [id number] Univers 00:00:00 00:00:00 Only Unassigned, LEONIDES 350.1.13.10 ity of [place] [facility] 4.2.7.2.686 [facility] [id number] [facility] 009 Branch 2022-09-22 2022-09-22 OFFICE [facility] [id number] Co mmon 00:00:00 00:00:00 VISIT Juan C ESTAB PT - CHI LEVEL 4 [facility] 2022-09-06 2022-09-06 Telephone Oscar, [facility] [id number] 00:00:00 00:00:00 [facility] 2022-09-06 2022-09-06 OFFICE [facility] [id number] Co mmon 00:00:00 00:00:00 VISIT Juan C ESTAB PT - CHI LEVEL 4 [facility] 2022-08-11 2022-08-11 Outpatient Patsy [facility] [id number] Univers 00:00:00 00:00:00 SCAR [facility] 2022-07-30 2022-07-30 Outpatient DMG [facility] [id number] Devoted 00:00:00 00:00:00 [id number] [facility] 2022-07-29 2022-07-29 Outpatient DMG DM [id number] Devoted 00:00:00 00:00:00 [id number] Medica l Group 2022-07-29 2022-07-29 OFFICE [facility] [id number] Co mmon 00:00:00 00:00:00 VISIT Juan C ESTAB PT - CHI LEVEL 4 [facility] 2022-07-26 2022-07-26 Emergency X SINGER [facility] ERT [id number] Univers 11:44:00 15:33:00 NILAY anthony [facility] 2022-07-26 2022-07-26 Emergency [facility] [id number] [id number] Univers 11:44:00 15:33:00 Nilay BURRELL 350.1.13.10 i ty of [place] [id number] [facility] 084 Branch 2022-07-26 2022-07-26 (TEL) STLMLC STLMLC [id number] Co mmon 00:00:00 00:00:00 [facility] 2022-07-14 2022-07-14 (TEL) STLMLC STLMLC [id number] Co mmon 00:00:00 00:00:00 [facility] 2022-07-09 2022-07-09 OFFICE STLMLC STLMLC [id number] Co mmon 00:00:00 00:00:00 VISIT [facility] LEVEL 4 [facility] 2022-07-06 2022-07-06 (TEL) STLMLC STLMLC [id number] Co mmon 00:00:00 00:00:00 [facility] 2022-07-05 2022-07-05 (TEL) STLMLC STLMLC [id number] Co mmon 00:00:00 00:00:00 [facility] 2022-06-30 2022-06-30 (HOSP F/U) STLMLC STLMLC [id number] Common 00:00:00 00:00:00 [facility] 2022-06-23 2022-06-23 (TEL) STLMLC STLMLC [id number] Co mmon 00:00:00 00:00:00 [facility] 2022-06-22 2022-06-22 Transition MARCELINO Puri 1.2.840.114 [id number] Univers 00:00:00 00:00:00 of Care Spike A MARIUSZ 350.1.13.10 ity DEVONTE 4.2.7.2.686 [facility] [id number] [facility] 403 Branch 2022-06-16 2022-06-21 Inpatient Jason MORA [facility] TANA [id number] Univers 18:03:00 12:23:00 JESUS martinez of [facility] 2022-06-16 2022-06-21 Hospital Hill Sawyer [facility] 1.2.840.1 [id number] [facility] 18:03:00 12:23:00 Encounter Soco Pauly Laura INDRA 350.1.1 3.10 ity of Herbie Olvera 4.2.7.2.686 [facility] [id number] Medical 081 Branch 2022-06-16 2022-06-16 Orders Doctor GRISEL 1.2.840.114 [id number] Univers 00:00:00 00:00:00 Only Unassigned, LEONIDES 350.1.13.10 ity of [place] [facility] 4.2.7.2.686 [facility] [id number] [facility] 009 Branch 2022-06-09 2022-06-09 [id number] 00:00:00 00:00:00 VISIT Spirit ESTAB PT - CHI LEVEL 4 [facility] 2022-06-09 2022-06-09 (TEL) [facility] [id number] Co mmon 00:00:00 00:00:00 Spirit - CHI [facility] 2022-06-09 2022-06-09 SUB ANNUAL [facility] [id number] Common 00:00:00 00:00:00 [facility] Spirit WELLNESS - CHI VISIT [facility] 2022-05-20 2022-05-20 (TEL) [facility] [id number] Co mmon 00:00:00 00:00:00 Spirit - CHI [facility] 2022-05-18 2022-05-18 Telephone Oscar [facility] [id number] 00:00:00 00:00:00 [facility] 2022-04-14 2022-04-14 Outpatient EL EVANS [facility] [id number] 13:18:21 14:25:49 [facility] 2022-04-14 2022-04-14 Office Evans [facility] [id number] 13:15:00 14:25:49 Visit [facility] 2022-02-09 2022-02-09 OFFICE STLC STLC [id number] Co mmon 00:00:00 00:00:00 VISIT Juan C ESTAB PT - CHI LEVEL 4 [facility] 2022-01-04 2022-01-04 Outpatient ISSAC KRUEGER, [facility] [id number] 09:57:22 12:00:27 [facility] 2021-12-17 2021-12-17 (TEL) STLC STLC [id number] Co mmon 00:00:00 00:00:00 Spirit - CHI [facility] 2021-10-16 2021-10-16 [facility] [id number] Univers 15:06:23 23:59:00 CARLTON ity [facility] 2021-10-16 2021-10-16 [facility] [id number] [id number] Univers 15:00:00 23:59:00 Encounter Carlton RUANOTON 350.1.13.[address] [facility] 4.2.7.2.686 [facility] [id number] [place] [address] Branch 2021-10-12 2021-10-12 OFFICE [facility] [id number] Co mmon 00:00:00 00:00:00 VISIT Juan C LEZAMA PT - CHI LEVEL 4 [facility] 2021-09-22 2021-09-22 [facility] [id number] [id number] Univers 10:16:00 12:21:00 Encounter Carlton BURRELL 350.1.13.10 ity [facility] 4[place]2.7.2.[place]ICAL [id number] [facility] 071 Branch 2021-09-22 2021-09-22 Outpatient R [facility] [id number] Univers 10:16:00 12:21:00 CARLTON ity [facility] 2021-09-22 2021-09-22 Surgery [facility] 1.2.840.114 [id number] Univers 10:50:00 12:01:00 Carlton BURRELL 350.1.13.10 i ty of [facility] 4.2.7.2.686 [place] [id number] [facility] 020 Branch 2021-09-22 2021-09-22 Orders Doctor GRISEL 1.2.840.114 [id number] Univers 00:00:00 00:00:00 Only Unassigned, LEONIDES 350.1.13.10 ity of [place] [facility] 4.2.7.2.686 Faustino as [id number] [facility] 009 Branch 2021-09-21 2021-09-21 Outpatient R [facility]IA [facility] [id number] Univers 08:15:00 08:15:00 CARLTON y [facility] 2021-09-04 2021-09-04 (TEL) [facility] [id number] Co mmon 00:00:00 00:00:00 [facility] 2021-08-20 2021-08-20 Surgery [facility] 1.2.840.114 [id number] Univers 12:50:00 14:12:00 Carlton BURRELL 350.1.13.10 i ty of [place].2.[place]ICAL [id number] [facility] 020 Branch 2021-08-20 2021-08-20 Outpatient [facility] [id number] Univers 11:19:00 12:57:00 [facility] 2021-08-20 2021-08-20 [facility] 1.2.896.008 [id number] Univers 11:19:00 12:57:00 Encounter Carlton BURRELL 350.1.13.10 ity of [facility] 4.2.7.2.686 [place]ICAL [id number] [facility] 071 Branch 2021-08-20 2021-08-20 Orders Doctor RECINOS 1.2.840.114 [id number] Univers 00:00:00 00:00:00 Only Unassigned, LEONIDES 350.1.13.10 [facility] 4.2.7.2.686 Faustino as [id number] [facility] 009 Branch 2021-08-17 2021-08-17 Outpatient Patsy [facility] [id number] Univers 08:45:00 08:45:00 CARLTON martinez [facility] 2021-07-13 2021-07-13 (TEL) STLMLC STLMLC [id number] Co mmon 00:00:00 00:00:00 [facility] 2021-07-06 2021-07-06 (TEL) STLMLC STLMLC [id number] Co mmon 00:00:00 00:00:00 [facility] 2021-07-02 2021-07-02 Outpatient STLMLC STLMLC [id number] Common 00:00:00 00:00:00 [facility] 2021-06-16 2021-06-16 Outpatient STLMLC STLMLC [id number] Common 00:00:00 00:00:00 [facility] 2021-06-04 2021-06-04 Outpatient STLMLC STLMLC [id number] Common 00:00:00 00:00:00 [facility] 2021-06-01 2021-06-01 Outpatient STLMLC STLMLC [id number] Common 00:00:00 00:00:00 [facility] 2021-05-27 2021-05-27 Outpatient STLMLC STLMLC [id number] Common 00:00:00 00:00:00 [facility] 2021-05-20 2021-05-20 Outpatient STLMLC STLMLC [id number] Common 00:00:00 00:00:00 [facility] 2021-05-20 2021-05-20 Outpatient STLMLC STLMLC [id number] Common 00:00:00 00:00:00 [facility] 2021-04-08 2021-04-08 Outpatient STLMLC STLMLC [id number] Common 00:00:00 00:00:00 [facility] 2021-04-08 2021-04-08 Outpatient STLMLC STLMLC [id number] Common 00:00:00 00:00:00 [facility] 2021-03-25 2021-03-25 Outpatient STLMLC STLMLC [id number] Common 00:00:00 00:00:00 [facility] 2021-02-16 2021-02-16 Outpatient STLMLC STLMLC [id number] Common 00:00:00 00:00:00 [facility] 2021-02-16 2021-02-16 Outpatient STLMLC STLMLC [id number] Common 00:00:00 00:00:00 [facility] 2020-11-26 2020-11-26 Outpatient STLMLC STLMLC [id number] Common 00:00:00 00:00:00 [facility] 2020-11-20 2020-11-20 Outpatient STLMLC STLMLC [id number] Common 00:00:00 00:00:00 [facility] 2020-11-03 2020-11-03 Outpatient STLMLC STLMLC [id number] Common 00:00:00 00:00:00 [facility] 2020-09-09 2020-09-09 Outpatient STLMLC STLMLC [id number] Common 00:00:00 00:00:00 [facility] 2020-09-08 2020-09-08 Outpatient STLMLC STLMLC [id number] Common 00:00:00 00:00:00 [facility] 2020-08-20 2020-08-20 Outpatient STLMLC STLMLC [id number] Common 00:00:00 00:00:00 [facility] 2020-08-07 2020-08-07 Outpatient STLMLC STLMLC [id number] Common 00:00:00 00:00:00 [facility] 2020-07-24 2020-07-24 Outpatient STLMLC STLMLC [id number] Common 00:00:00 00:00:00 [facility] 2020-07-21 2020-07-21 Outpatient STLMLC STLMLC [id number] Common 00:00:00 00:00:00 [facility] 2020-07-21 2020-07-21 Outpatient STLMLC STLMLC [id number] Common 00:00:00 00:00:00 [facility] 2020-07-18 2020-07-18 Outpatient STLMLC STLMLC [id number] Common 00:00:00 00:00:00 [facility] 2020-07-17 2020-07-17 Outpatient STLMLC STLMLC [id number] Common 00:00:00 00:00:00 [facility] 2020-05-15 2020-05-15 [facility] [id number] Common 14:15:00 14:15:[address] [facility] 2020-04-09 2020-04-09 [facility] [id number] Common 08:55:00 08:55:[address] [facility] 2020-04-07 2020-04-07 Out[facility] [id number] Common 10:34:00 10:34:[address] [facility] 2020-02-13 2020-02-13 Out[facility] [id number] Common 15:00:00 15:00:[address] [facility] 2020-02-13 2020-02-13 Out[facility] [id number] Common 15:00:00 15:00:[address] [facility] 2020-02-08 2020-02-08 Out[facility] [id number] Common 08:47:00 08:47:[address] [facility] 2019-11-19 2019-11-19 Out[facility] [id number] Common 13:00:00 13:00:[address] [facility] 2019-11-12 2019-11-12 Outpatient [facility] [id number] Common 08:28:00 08:28:[address] [facility] 2019-09-11 2019-09-11 Out[facility] [id number] Common 13:30:00 13:30:00 t Bone Bone and Spiri t and Joint Joint - [facility] 2019-08-16 2019-08-16 Out[facility] [id number] Common 13:15:00 13:15:00 t [employer] Sp[address] [facility] 2019-07-31 2019-07-31 [facility] [id number] Common 10:00:00 10:00:00 t Bone Bone and Spiri t and Joint Joint - [facility] 2019-07-30 2019-07-30 [facility] [id number] Common 14:13:00 14:13:00 t Bone Bone and Spiri t and Joint Joint - [facility] 2019-07-27 2019-07-27 Out[facility] [id number] Common 08:51:00 08:51:00 t Bone Bone and Spiri t and Joint Joint - [facility] 2019-07-10 2019-07-10 [facility] [id number] Common 10:00:00 10:00:00 t Bone Bone and Spiri t and Joint Joint - [facility] 2019-07-10 2019-07-10 Out[facility] [id number] Common 08:30:00 08:30:00 [address] [employer] [address] [facility] 2019-07-09 2019-07-09 Outpatient Braz[place] alejandro [place]all[place] [id number] Common 10:47:00 10:47:00 [address] [employer] [address] [facility] 2019-07-06 2019-07-06 Office DEMETRIUS Harris 1.2.840.114 [id number] 13:15:43 13:45:43 Visit Zenaida AMBULATOR 350.1.13.21 Y 0.2.7.2.686 [id number] 800 2019-07-06 2019-07-06 Office DEMETRIUS Harris 1.2.840.114 [id number] [facility] 13:15:43 13:45:43 Visit Zenaida AMBULATOR [id number] College Y [id number] [facility] pancho 800 e 2019-06-20 2019-06-20 [facility] [id number] Common 13:30:00 13:30:00 [facility] 2019-06-20 2019-06-20 [facility] [id number] Common 08:49:00 08:49:[address] [facility] 2019-06-18 2019-06-18 [facility] [id number] Common 08:30:00 08:30:[address] [facility] 2019-05-21 2019-05-21 [id number] Common 13:55:00 13:55:[address] [facility] 2019-05-18 2019-05-18 [facility] [id number] Common 14:40:00 14:40:[address] [facility] 2019-05-17 2019-05-17 [facility] [id number] Common 14:00:00 14:00:[address] [facility] 2019-02-08 2019-02-08 [facility] [id number] Common 16:40:00 16:40:[address] [facility] 2019-02-06 2019-02-06 [facility] [id number] Common 16:30:00 16:30:[address] [facility] 2019-01-30 2019-01-30 [facility] [id number] Common 11:28:00 11:28:[address] [facility] 2019-01-25 2019-01-25 [facility] [id number] Common 14:30:00 14:30:[address] [facility] 2018-12-07 2018-12-07 [facility] [id number] Common 14:30:00 14:30:[address] [facility] 2018-12-05 2018-12-05 [facility] [id number] Common 15:15:00 15:15:00 t Specialty/U Sp anitra Specialty rology - [facility] 2018-11-08 2018-11-08 [facility] [id number] Common 13:25:00 13:25:[address] [facility] 2018-11-01 2018-11-01 [facility] [id number] Common 13:15:00 13:15:[address] [facility] 2018-10-27 2018-10-27 [facility] [id number] Common 12:16:00 12:16:[address] [facility] 2018-10-26 2018-10-26 [facility] [id number] Common 15:10:00 15:10:00 t Specialty/U Sp anitra Specialty rology - [facility] 2018-10-26 2018-10-26 [facility] [id number] Common 13:45:00 13:45:00 t Specialty/U Sp anitra Specialty rology - [facility] 2018-10-09 2018-10-09 [facility] [id number] Common 10:45:00 10:45:[address] [facility] 2018-09-13 2018-09-13 [facility] [id number] Common 09:40:00 09:40:[address] [facility] 2018-09-11 2018-09-11 [facility] [id number] Common 14:30:00 14:30:[address] [facility] Results Test Description Test Time Test Comments Results Result Comments Source BASIC METABOLIC PANEL (NA, K, CL, CO2, GLUCOSE, BUN, 2022-06 11:51:11 CREATININE, [place]) Test Item Value Reference Range Interpretation Comme nts NA (test code = 8906754291) 133 mmol/L 135-145 L K (test code = 3617090443) 3.7 mmol/L 3.5-5 CL (test code = 8374876016) 102 mmol/L 98-108 CO2 TOTAL (test code = 5475253608) 24 mmol/L 23-31 AGAP (test code = 5503968084) 2-16 BUN (test code = 5065369679) 3 mg/dL 7-23 L GLUCOSE (test code = 0621199576) 101 mg/dL 70-110 CREATININE (test code = 0.85 mg/dL 0.5-1.04 1236899497) CALCIUM (test code = 6285146413) 8.7 mg/dL 8.6-10.6 eGFR (test code = 3985728360) mL/min/1.73m2 COLTON (test code = COLTON) Association of Glomerular Filtration Rate (GFR) and Staging of Kidney Disease* + +-------- + ------+| GFR (mL/min/1.73 m2) ?| With Kidney Damage ?| ?Without Kidney Damage+ +-- + +| ?>90 ?| ?Stage one ?| ? Normal ?+ +------- + -------+| ?60-89 ?| ?Stage two ?| ? Decreased GFR ? + +-------- + ------+| ?30-59 ?| ?Stage three ?| ? Stage three ? + +-------- + ------+| ?15-29 ?| ?Stage four ? | ? Stage four ?+ +------- + -------+| ?<15 (or dialysis) ? ?| ?Stage five ? | ? Stage five ?+ +------- + -------+ *Each stage assumes the associated GFR level has been in effect for at least three months. ?Stages 1 to 5, with or without kidney disease, indicate chronic kidney disease. Notes: Determination of stages one and two (with eGFR >59mL/min/1.73 m2) requires estimation of kidney damage for at least three months as defined by structural or functional abnormalities of the kidney, manifested by either:Pathological abnormalities or Markers of kidney damage (including abnormalities in the composition of the blood or urine or abnormalities in imaging tests). Lab Interpretation (test code = Abnormal 13039-2) [facility][id number][facility] (ALB,T.PRO,BILI T,BU/BC,ALT,AST,ALK PHOS)2022-06-21 11:50:31 Test Item Value Reference Range Interpretation Comments TOTAL BILI (test code = 9825493732) 0.2 mg/dL 0.1-1.1 BILI UNCON (test code = 4817627242) 0.1 mg/dL 0.1-1.1 BILI CONJ (test code = 6172476477) 0.0 mg/dL 0-0.3 T PROTEIN (test code = 2455306837) 6.0 g/dL 6.3-8.2 L ALBUMIN (test code = 7462134711) 3.5 g/dL 3.5-5 ALK PHOS (test code = 7612788210) 583 U/L 34-122 H ALTv (test code = 1742-6) 139 U/L 5-35 H AST(SGOT) (test code = 6378805691) 55 U/L 13-40 H Lab Interpretation (test code = Abnormal 60569-5) [facility] (NA, K, CL, CO2, GLUCOSE, BUN, CREATININE, CA)2022-06-20 10:31:12 Test Item Value Reference Range Interpretation Comments NA (test code = 135 mmol/L 135-145 8628060257) K (test code = 2.9 mmol/L 3.5-5 LL 6406002939) CL (test code = 107 mmol/L 98-108 3243743045) CO2 TOTAL (test code = 22 mmol/L 23-31 L 8059151845) AGAP (test code = 2-16 1008968147) BUN (test code = 7-23 L 0502097543) GLUCOSE (test code = 103 mg/dL 70-110 6552514093) CREATININE (test code = 0.73 mg/dL 0.5-1.04 6939549070) CALCIUM (test code = 8.4 mg/dL 8.6-10.6 L 4184743310) eGFR (test code = mL/min/1.73m2 4115308087) COLTON (test code = COLTON) Association of Glomerular Filtration Rate (GFR) and Staging of Kidney Disease* + --+ --+ ------+| GFR (mL/min/1.73 m2) ?| With Kidney Damage ?| ?Without Kidney Damage+ --------+ --------+ +| ?>90 ?| ?Stage one ?| ? Normal ?+ ---+ ---+ -------+| ?60-89 ?| ?Stage two ?| ? Decreased GFR ? + --+ --+ ------+| ?30-59 ?| ?Stage three ?| ? Stage three ? + --+ --+ ------+| ?15-29 ?| ?Stage four ? | ? Stage four ?+ ---+ ---+ -------+| ?<15 (or dialysis) ? ?| ?Stage five ? | ? Stage five ?+ ---+ ---+ -------+ *Each stage assumes the associated GFR level has been in effect for at least three months. ?Stages 1 to 5, with or without kidney disease, indicate chronic kidney disease. Notes: Determination of stages one and two (with eGFR >59mL/min/1.73 m2) requires estimation of kidney damage for at least three months as defined by structural or functional abnormalities of the kidney, manifested by either:Pathological abnormalities or Markers of kidney damage (including abnormalities in the composition of the blood or urine or abnormalities in imaging tests). Lab Interpretation Abnormal (test code = 32697-8) [facility] WITH [id number] 09:21:48 Test Item Value Reference Range Interpretation Comments WBC (test code = See_Comment [Automated 6975-2) message] The sy stem which generated this result transmitted reference range : 4.30 - 11.10 10*3/?L. The reference range was not used to interpret this result as normal/abnormal . RBC (test code = See_Comment L [Automated 949-8) message] The sy stem which generated this result transmitted reference range : 3.93 - 5.25 10*6/?L. The reference range was not used to interpret this result as normal/abnormal . HGB (test code = 9.5 g/dL 11.6-15 L 718-7) HCT (test code = 28.0 % 35.7-45.2 L 4544-3) MCV (test code = 88.9 fL 80.6-95.5 787-2) MCH (test code = 30.2 pg 25.9-32.8 785-6) MCHC (test code = 33.9 g/dL 31.6-35.1 786-4) RDW-SD (test code = 40.5 fL 39-49.9 65152-8) RDW-CV (test code = 12.6 % 12-15.5 788-0) PLT (test code = See_Comment H [Automated 777-3) message] The sy stem which generated this result transmitted reference range : 166 - 358 10*3/ ?L. The reference r susana was not used to interpret this result as normal/abnormal . MPV (test code = 9.0 fL 9.5-12.9 L 23004-5) NRBC/100 WBC (test See_Comment [Automat ed code = 9373765481) message] The system which generated this result transmitted reference range : 0.0 - 10.0 /100 WBCs. The refer ence range was not u sed to interpret th is result as normal/abnormal . NRBC x10^3 (test code See_Comment [Auto mated = 3904600862) message] The s ystem which generated this result transmitted reference range : 10*3/?L. The reference range was not used to interpret this result as normal/abnormal . GRAN MAT (NEUT) % 67.8 % (test code = 770-8) IMM GRAN % (test code 1.20 % = 8700946893) LYMPH % (test code = 17.9 % 736-9) MONO % (test code = 11.7 % 5905-5) EOS % (test code = 1.2 % 713-8) BASO % (test code = 0.2 % 706-2) GRAN MAT x10^3(ANC) 4.02 10*3/uL 1.88-7.09 (test code = 8182283364) IMM GRAN x10^3 (test 0.07 10*3/uL 0-0.06 H code = 4145126557) LYMPH x10^3 (test code 1.06 10*3/uL 1.32-3.29 L = 731-0) MONO x10^3 (test code 0.69 10*3/uL 0.33-0.92 = 742-7) EOS x10^3 (test code = 0.07 10*3/uL 0.03-0.39 711-2) BASO x10^3 (test code 0.01-0.07 = 704-7) Lab Interpretation Abnormal (test code = 67063-0) [facility] PasoLAMOTRIGINE, [id number] 21:07:40 Test Item Value Reference Range Interpretation Comments LAMOTRIGINE (test 3.3 ug/mL 3.0-15.0 INTERPRETI VE code = 6948-4) INFORMATION: ?Lamotrigine Th erapeutic Range: ?3.0-15. 0 ug/mL ?Toxic: ?Greater than or equal t o 20 ug/mL Pharmacok inetics varies widely, particularly wi th co-medications and/or compromised ascencion al function. ?Adve rse effects may inc lude dizziness, somn olence, nausea and vomiting.Perfor med By: [facility] [place] [id number] aboratory Director: Joe Martinez MD, PhD [facility] PasoHEPAT[facility] FUNCTION PANEL (40894) (ALB,T.PRO,BILI T,BU/BC,ALT,AST,ALK PHOS)2022-06-18 11:44:08 Test Item Value Reference Range Interpretation Comments TOTAL BILI (test code = 8511064816) 0.4 mg/dL 0.1-1.1 BILI UNCON (test code = 3116716598) 0.1 mg/dL 0.1-1.1 BILI CONJ (test code = 5616686254) 0.0 mg/dL 0-0.3 T PROTEIN (test code = 7364538330) 6.0 g/dL 6.3-8.2 L ALBUMIN (test code = 3355638091) 3.4 g/dL 3.5-5 L ALK PHOS (test code = 0603738506) 608 U/L 34-122 H ALTv (test code = 1742-6) 373 U/L 5-35 H AST(SGOT) (test code = 0977735900) 357 U/L 13-40 H Lab Interpretation (test code = Abnormal 94707-2) [facility]ATITIS B SURFACE [id number] 20:52:12 Test Item Value Reference Range Interpretation Comments HBsAB (test code = Indeterminate 0537698822) HBsAb mIU/mL Semi-Quantitative (test code = 1063892328) COLTON (test code = Unable to determine if COLTON) antibody to Hepatitis B Surface Antigen is present at levels consistent with immunity. ?Patient's immune status should be assessed with other clinical information and/or retesting in 4-6 weeks as clinically indicated. ?If any questions, please contact Clinical Chemistry Director information services assistant at .Unable to determine if antibody to Hepatitis B Surface Antigen is present at levels consistent with immunity. ?Patient's immune status should be assessed with other clinical information and/or retesting in 4-6 weeks as clinically indicated. ?If any questions, please contact Clinical Chemistry Director information services assistant at .Unable to determine if antibody to Hepatitis B Surface Antigen is present at levels consistent with immunity. ?Patient's immune status should be assessed with other clinical information and/or retesting in 4-6 weeks as clinically indicated. ?If any questions, please contact Clinical Chemistry Director information services assistant at .Interpretati on: ?Hepatitis B Surface Antibody ? Negative - Patient is considered to be not immune to infection with HBV. ? ? Positive - Anti-HBs detected at greater than or equal to 12 mIU/mL. ?Patient is considered to be immune to infection with HBV. ? [facility] Paso[facility]BC ANTIBODY (IGM & IGG)2022-06-17 19:04:09 Test Item Value Reference Range Interpretation Comments HBC (test code = 8033467138) Negative HBC Semi-Quantitative (test code = 3326770646) [facility] Paso[facility]CV [id number] 19:04:09 Test Item Value Reference Range Interpretation Comments HCV Ab (test code = 47578-1) Negative HCV Semi-Quantitative (test code = 01434-2) [facility]AT[facility] B SURFACE [id number] 18:45:46 Test Item Value Reference Range Interpretation Comments HBsAg Semi-Quantitative (test code = Negative Negative 5195-3) [facility] PasoPROCALCITONIN2022-09-15 16:01:08 Test Item Value Reference Interpretation Comments Range Procalcitonin (test 0.31 ng/mL See_Comment H [Automa carlton code = 3508311228) message] The system which generated this result transmitted reference range: <=0.07. The reference range was not used to interpret this result as normal/abnormal . COLTON (test code = INTERPRETATION OF COLTON) PROCALCITONIN RESULTS IN ADULTS >= 18 YEARS OF AGE Initiation and discontinuation of antibiotics on patients with suspected or confirmed Lower Respiratory Tract Infection in Adults >= 18 years of age. + +------ + ----+ +|Procalcit onin |Interpretation ?|Antibiotic ? ? |Considerations ? |ng/mL ? | ?|recommendation | ? + +------ + ----+ +| <0.1 ? | Bacterial ? ? ?| Strongly ? ? ?| ? | ?| infection very | discouraged ? | Overruling: ? | ?| unlikely ? ? ? | ? | ? Clinically unstable ? ? ? + +------ + ----+ ? High risk for adverse ? ? | <0.25 ?| Bacterial ? ? ?| Discouraged ? | ? outcome ? | ?| infection ? ? ?| ? | ? SEE IMPORTANT NOTE ?| ?| unlikely ? ? ? | ? | ? + +------ + ----+ +| >=0.25 ? ? ? | Bacterial ? ? ?| Encouraged ? ?| ? | ?| infection ? ? ?| ? | ? | ?| likely ? | ? | Consider treatment failure ?+ +----- + -----+ if levels does not decrease | >0.5 ? | Bacterial ? ? ?| Strongly ? ? ?| appropriately ? | ?| infection very | encouraged ? ?| ? | ?| likely ? | ? | ? + +------ + ----+ + Discontinuation of antibiotics in high-acuity patients with suspected or confirmed sepsis in Adults >= 18 years of age. + +------ + ----+ +|Procalcit onin |Interpretation ?|Antibiotic ? ? |Considerations ? |ng/mL ? | ?|recommendation | ? + +------ + ----+ +| <0.25 ?| Bacterial ? ? ?| Strongly ? ? ?| ? | ?| infection very | discouraged ? | Overruling: ? | ?| unlikely ? ? ? | ? | ? Clinically unstable ? ? ? + +------ + ----+ ? High risk for adverse ? ? | <0.5 or drop | Bacterial ? ? ?| Discouraged ? | ? outcome ? | >80% from ? ?| infection ? ? ?| ? | ? SEE IMPORTANT NOTE ?| highest PCT ?| unlikely ? ? ? | ? | ? | level ?| ?| ? | ? + +------ + ----+ +| >=0.5 ?| Bacterial ? ? ?| Encouraged ? ?| ? | ?| infection ? ? ?| ? | ? | ?| likely ? | ? | Consider treatment failure ?+ +----- + -----+ if levels does not decrease | >1.0 ? | Bacterial ? ? ?| Strongly ? ? ?| appropriately ? | ?| infection very | encouraged ? ?| ? | ?| likely ? | ? | ? + +------ + ----+ + Percentage of drop of Procalcitonin calculation for Discontinuation of antibiotics in high-acuity patients with suspected or confirmed sepsis in Adults >= 18 years of age. ? Procalcitonin highest{}-Procalcitoni n current{}Delta Procalcitonin = ___ x100% ? Procalcitonin current {} IMPORTANT NOTE: Procalcitonin may be elevated without bacterial infection by physiologic stress related to trauma, ayala, chronic dialysis, metastatic cancer, surgery in the past seven days, malaria, some fungal infections, and some forms of vasculitis. The interpretation algorithm may not apply to patients with immunosuppression (equivalent of >10 mg of prednisone daily), HIV with CD4 cell count < 350 cells/mm3, active malignancy on systemic chemotherapy, solid organ transplant or hematopoietic stem cell transplantation, or hospital acquired pneumonia. Additionally, some clinical trials of procalcitonin have excluded patients with shock requiring vasopressor use, acute respiratory failure requiring mechanical ventilation, or those with known lung abscess/empyema. For further information please refer to:[email or web address] Lab Interpretation Abnormal (test code = 37369-5) [facility] PasoCOM. METABOLIC PANEL (17895)2022-06-17 13:10:04 Test Item Value Reference Range Interpretation Comments NA (test code = 141 mmol/L 135-145 6684690648) K (test code = 3.5 mmol/L 3.5-5 6409910250) CL (test code = 111 mmol/L 98-108 H 2030040199) CO2 TOTAL (test code = 24 mmol/L 23-31 6540622224) AGAP (test code = 2-16 1386514094) BUN (test code = 8 mg/dL 7-23 8141495760) GLUCOSE (test code = 97 mg/dL 70-110 5016908688) CREATININE (test code = 0.89 mg/dL 0.5-1.04 0564424796) TOTAL BILI (test code = 1.1 mg/dL 0.1-1.5 2151035098) CALCIUM (test code = 8.2 mg/dL 8.6-10.6 L 6017206128) T PROTEIN (test code = 5.8 g/dL 6.3-8.2 L 2665520689) ALBUMIN (test code = 3.2 g/dL 3.5-5 L 2451713975) ALK PHOS (test code = 766 U/L 34-122 H 7410840192) ALTv (test code = 634 U/L 5-35 H 1742-6) AST(SGOT) (test code = 1987 U/L 13-40 H 2677252562) eGFR (test code = mL/min/1.73m2 4972632435) COLTON (test code = COLTON) Association of Glomerular Filtration Rate (GFR) and Staging of Kidney Disease* + --+ --+ ------+| GFR (mL/min/1.73 m2) ?| With Kidney Damage ?| ?Without Kidney Damage+ --------+ --------+ +| ?>90 ?| ?Stage one ?| ? Normal ?+ ---+ ---+ -------+| ?60-89 ?| ?Stage two ?| ? Decreased GFR ? + --+ --+ ------+| ?30-59 ?| ?Stage three ?| ? Stage three ? + --+ --+ ------+| ?15-29 ?| ?Stage four ? | ? Stage four ?+ ---+ ---+ -------+| ?<15 (or dialysis) ? ?| ?Stage five ? | ? Stage five ?+ ---+ ---+ -------+ *Each stage assumes the associated GFR level has been in effect for at least three months. ?Stages 1 to 5, with or without kidney disease, indicate chronic kidney disease. Notes: Determination of stages one and two (with eGFR >59mL/min/1.73 m2) requires estimation of kidney damage for at least three months as defined by structural or functional abnormalities of the kidney, manifested by either:Pathological abnormalities or Markers of kidney damage (including abnormalities in the composition of the blood or urine or abnormalities in imaging tests). Lab Interpretation Abnormal (test code = 56889-2) [facility] PasoTHYROID STIMULATING [id number] 12:33:26 Test Item Value Reference Range Interpretation Comments TSH (test code = See_Comment [Automated message] 9115294412) The system OpenSpan generated this result transmitted ref erence range: 0.45 - 4 .70 mIU/L. The refe rence range was not u sed to interpret this result as normal/abnor mal. Lab Interpretation (test Normal code = 53979-0) [facility] PasoTROPONIN [id number] 12:15:04 Test Item Value Reference Interpretation Comments Range TROPONIN I (test 0.006 ng/mL See_Comment [Automated code = 1276500545) message] The system which generated this result transmitted reference range : <=0.034. The reference range was not used to interpret this result as normal/abnormal . COLTON (test code = Reference (Normal) COLTON) Range (defined by the 99th percentile reference limit): <= 0.034 ng/mL Note: Cardiac troponin begins to rise 3-4 hours after the onset of ischemia. Repeat in 4-6 hours if the sample was drawn within 3-4 hours of the onset of the symptom and found normal. Diagnosis of myocardial injury is made with acute changes in cTn concentrations with at least one serial sample above the 99th percentile upper reference limit (URL), taken together with the patient's clinical presentation. Biotin has been reported to cause a negative bias, interpret results relative to patient's use of biotin. Lab Interpretation Normal (test code = 25102-6) [facility] PasoN-TERMINAL [id number] 12:11:41 Test Item Value Reference Range Interpretation Comments NT-proBNP (test code 176 pg/mL See_Comment H [Autom ated = 4837720764) message] The system which generated this result transmitted reference range : <=125. The reference range was not used to interpret this result as normal/abnormal . COLTON (test code = COLTON) Biotin has been reported to cause a negative bias, interpret results relative to patient's use of biotin. Lab Interpretation Abnormal (test code = 48168-4) [facility] PasoLIPID PANEL (07467)(TOTAL CHOLESTEROL, TRIGLYCERIDES, HDL)2022-06-17 12:03:42 Test Item Value Reference Range Interpretation Comments CHOL (test code = 152 mg/dL 120-200 3380741593) HDL (test code = 40 mg/dL See_Comment L [Automated message] 3701232965) The system OpenSpan generated this result transmit carlton reference range : >=50. The refer ence range was not u sed to interpret th is result as normal/abnormal . HDLC RATIO (test code = See_Comment [Au tomated message] 4185744142) The system OpenSpan generated this result transmit carlton reference range : <=4.5. The refe rence range was not u sed to interpret th is result as normal/abnormal . TRIG (test code = 102 mg/dL 30-170 7559175070) LDL CHOL (test code = 92 mg/dL See_Comment [Auto mated message] 95576-9) The system OpenSpan generated this result transmit carlton reference range : <=160. The refe rence range was not u sed to interpret th is result as normal/abnormal . VLDL (test code = 20 mg/dL 5-60 9214866843) Lab Interpretation (test Abnormal code = 03011-8) [facility] PasoMAGNESIUM2022-09-15 12:03:42 Test Item Value Reference Range Interpretation Comments MAGNESIUM (test code = 7585419068) 2.0 mg/dL 1.7-2.4 Lab Interpretation (test code = Normal 19768-4) [facility] PasoPHOSPHORUS2022-09-15 12:03:21 Test Item Value Reference Range Interpretation Comments PHOSPHORUS (test code = 8304237389) 3.7 mg/dL 2.5-5 Lab Interpretation (test code = Normal 35328-2) [facility] PasoProthrombin Time / [id number] 10:10:50 Test Item Value Reference Range Interpretation Comments PROTIME PATIENT (test See_Comment [Auto mated message] code = 5964-2) The system Forter generated this result transmitted ref erence range: 12.0 - 1 4.7 Seconds. The re ference range was not u sed to interpret this result as normal/abnor mal. INR (test code = 6301-6) Nor mal INR <1.1; Warfarin Therap eutic range 2.0 to 3. 0 or 2.5 to 3.5, dep ending upon the indica tions. Lab Interpretation (test Normal code = 69738-8) [facility] PasoCB WITH [id number] 09:47:03 Test Item Value Reference Range Interpretation Comments WBC (test code = See_Comment [Automated 6690-2) message] The sy stem which generated this result transmitted reference range : 4.30 - 11.10 10*3/?L. The reference range was not used to interpret this result as normal/abnormal . RBC (test code = See_Comment L [Automated 789-8) message] The sy stem which generated this result transmitted reference range : 3.93 - 5.25 10*6/?L. The reference range was not used to interpret this result as normal/abnormal . HGB (test code = 10.5 g/dL 11.6-15 L 718-7) HCT (test code = 33.0 % 35.7-45.2 L 4544-3) MCV (test code = 93.2 fL 80.6-95.5 787-2) MCH (test code = 29.7 pg 25.9-32.8 785-6) MCHC (test code = 31.8 g/dL 31.6-35.1 786-4) RDW-SD (test code = 43.2 fL 39-49.9 48907-9) RDW-CV (test code = 12.6 % 12-15.5 788-0) PLT (test code = See_Comment [Automated 777-3) message] The sy stem which generated this result transmitted reference range : 166 - 358 10*3/ ?L. The reference r susana was not used to interpret this result as normal/abnormal . MPV (test code = 9.0 fL 9.5-12.9 L 93633-4) NRBC/100 WBC (test See_Comment [Automat ed code = 2364649229) message] The system which generated this result transmitted reference range : 0.0 - 10.0 /100 WBCs. The refer ence range was not u sed to interpret th is result as normal/abnormal . NRBC x10^3 (test code See_Comment [Auto mated = 2825096737) message] The s ystem which generated this result transmitted reference range : 10*3/?L. The reference range was not used to interpret this result as normal/abnormal . GRAN MAT (NEUT) % 70.7 % (test code = 770-8) IMM GRAN % (test code 0.50 % = 1678718956) LYMPH % (test code = 15.3 % 736-9) MONO % (test code = 12.0 % 5905-5) EOS % (test code = 1.3 % 713-8) BASO % (test code = 0.2 % 706-2) GRAN MAT x10^3(ANC) 5.85 10*3/uL 1.88-7.09 (test code = 5746847283) IMM GRAN x10^3 (test 0.04 10*3/uL 0-0.06 code = 2221371325) LYMPH x10^3 (test code 1.27 10*3/uL 1.32-3.29 L = 731-0) MONO x10^3 (test code 0.99 10*3/uL 0.33-0.92 H = 742-7) EOS x10^3 (test code = 0.11 10*3/uL 0.03-0.39 711-2) BASO x10^3 (test code 0.01-0.07 = 704-7) Lab Interpretation Abnormal (test code = 10758-9) [facility]22-06-17 06:45:49 Test Item Value Reference Range Interpretation Comments HGB A1C (test code = 5.4 % 4-5.7 4548-4) COLTON (test code = COLTON) Reference RangesNormal: <5.7%Prediabetes: 5.7 - 6.4%Diabetes: > 6.5% Lab Interpretation (test Normal code = 90921-8) [facility] [id number] 00:41:17 Test Item Value Reference Interpretation Comments Range TROPONIN I (test 0.004 ng/mL See_Comment [Automated code = 4668813588) message] The system which generated this result transmitted reference range : <=0.034. The reference range was not used to interpret this result as normal/abnormal . COLTON (test code = Reference (Normal) COLTON) Range (defined by the 99th percentile reference limit): <= 0.034 ng/mL Note: Cardiac troponin begins to rise 3-4 hours after the onset of ischemia. Repeat in 4-6 hours if the sample was drawn within 3-4 hours of the onset of the symptom and found normal. Diagnosis of myocardial injury is made with acute changes in cTn concentrations with at least one serial sample above the 99th percentile upper reference limit (URL), taken together with the patient's clinical presentation. Biotin has been reported to cause a negative bias, interpret results relative to patient's use of biotin. Lab Interpretation Normal (test code = 83319-0) [facility] WITH [id number] 00:35:10 Test Item Value Reference Range Interpretation Comments WBC (test code = See_Comment H [Automated 6690-2) message] The sy stem which generated this result transmitted reference range : 4.30 - 11.10 10*3/?L. The reference range was not used to interpret this result as normal/abnormal . RBC (test code = See_Comment [Automated 789-8) message] The sy stem which generated this result transmitted reference range : 3.93 - 5.25 10*6/?L. The reference range was not used to interpret this result as normal/abnormal . HGB (test code = 11.7 g/dL 11.6-15 718-7) HCT (test code = 35.8 % 35.7-45.2 4544-3) MCV (test code = 90.9 fL 80.6-95.5 787-2) MCH (test code = 29.7 pg 25.9-32.8 785-6) MCHC (test code = 32.7 g/dL 31.6-35.1 786-4) RDW-SD (test code = 42.3 fL 39-49.9 16074-2) RDW-CV (test code = 12.6 % 12-15.5 788-0) PLT (test code = See_Comment H [Automated 777-3) message] The sy stem which generated this result transmitted reference range : 166 - 358 10*3/ ?L. The reference r susana was not used to interpret this result as normal/abnormal . MPV (test code = 8.7 fL 9.5-12.9 L 38045-9) NRBC/100 WBC (test See_Comment [Automat ed code = 3419892250) message] The system which generated this result transmitted reference range : 0.0 - 10.0 /100 WBCs. The refer ence range was not u sed to interpret th is result as normal/abnormal . NRBC x10^3 (test code See_Comment [Auto mated = 6947163536) message] The s ystem which generated this result transmitted reference range : 10*3/?L. The reference range was not used to interpret this result as normal/abnormal . GRAN MAT (NEUT) % 73.1 % (test code = 770-8) IMM GRAN % (test code 0.40 % = 7266118247) LYMPH % (test code = 13.3 % 736-9) MONO % (test code = 11.8 % 5905-5) EOS % (test code = 1.1 % 713-8) BASO % (test code = 0.3 % 706-2) GRAN MAT x10^3(ANC) 8.51 10*3/uL 1.88-7.09 H (test code = 9019750911) IMM GRAN x10^3 (test 0.05 10*3/uL 0-0.06 code = 8325724343) LYMPH x10^3 (test code 1.55 10*3/uL 1.32-3.29 = 731-0) MONO x10^3 (test code 1.37 10*3/uL 0.33-0.92 H = 742-7) EOS x10^3 (test code = 0.13 10*3/uL 0.03-0.39 711-2) BASO x10^3 (test code 0.03 10*3/uL 0.01-0.07 = 704-7) Lab Interpretation Abnormal (test code = 45228-5) [facility] MET[facility]OLIC PANEL ([id number])2022-06-17 00:30:09 Test Item Value Reference Range Interpretation Comments NA (test code = 135 mmol/L 135-145 3290530143) K (test code = 4.4 mmol/L 3.5-5 4734187350) CL (test code = 102 mmol/L 98-108 7570355130) CO2 TOTAL (test code = 22 mmol/L 23-31 L 4361524737) AGAP (test code = 2-16 8954156699) BUN (test code = 9 mg/dL 7-23 8122693137) GLUCOSE (test code = 113 mg/dL 70-110 H 5766046491) CREATININE (test code = 0.89 mg/dL 0.5-1.04 9444834381) TOTAL BILI (test code = 0.7 mg/dL 0.1-1.6 6912843461) CALCIUM (test code = 9.2 mg/dL 8.6-10.6 5402050855) T PROTEIN (test code = 7.4 g/dL 6.3-8.2 2749085536) ALBUMIN (test code = 4.4 g/dL 3.5-5 9032777143) ALK PHOS (test code = 158 U/L 34-122 H 1546503349) ALTv (test code = 20 U/L 5-35 2-6) AST(SGOT) (test code = 32 U/L 13-40 7145132994) eGFR (test code = mL/min/1.73m2 9097159728) COLTON (test code = COLTON) Association of Glomerular Filtration Rate (GFR) and Staging of Kidney Disease* + --+ --+ ------+| GFR (mL/min/1.73 m2) ?| With Kidney Damage ?| ?Without Kidney Damage+ --------+ --------+ +| ?>90 ?| ?Stage one ?| ? Normal ?+ ---+ ---+ -------+| ?60-89 ?| ?Stage two ?| ? Decreased GFR ? + --+ --+ ------+| ?30-59 ?| ?Stage three ?| ? Stage three ? + --+ --+ ------+| ?15-29 ?| ?Stage four ? | ? Stage four ?+ ---+ ---+ -------+| ?<15 (or dialysis) ? ?| ?Stage five ? | ? Stage five ?+ ---+ ---+ -------+ *Each stage assumes the associated GFR level has been in effect for at least three months. ?Stages 1 to 5, with or without kidney disease, indicate chronic kidney disease. Notes: Determination of stages one and two (with eGFR >59mL/min/1.73 m2) requires estimation of kidney damage for at least three months as defined by structural or functional abnormalities of the kidney, manifested by either:Pathological abnormalities or Markers of kidney damage (including abnormalities in the composition of the blood or urine or abnormalities in imaging tests). Lab Interpretation Abnormal (test code = 93893-2) [facility]20[facility] 00:30:09 Test Item Value Reference Range Interpretation Comments MAGNESIUM (test code = 9721265109) 2.0 mg/dL 1.7-2.4 Lab Interpretation (test code = Normal 69757-2) [facility]2022-09-15 00:29:54 Test Item Value Reference Range Interpretation Comments LIPASE (test code = 8775295339) 102 U/L 0-220 Lab Interpretation (test code = Normal 58830-1) [facility]PO[facility] [id number] 22:24:44 Test Item Value Reference Range Interpretation Comments POCT Creatinine (test code = 0.7 mg/dL 0.5-1.9 5941150807) Lab Interpretation (test code = Normal 68487-2) [facility]IPASE2019-10-01 06:29:00 Test Item Value Reference Range Interpretation Comments LIPASE (BEAKER) (test code = 749) 48 U/L 8-78 COMPREHENSIVE METABOLIC [id number] 06:29:00 Test Item Value Reference Range Interpretation [...] 347) EGFR (BEAKER) (test 72 mL/min/1.73 ESTIMA CARLTON GFR IS code = 1092) sq m NOT ACCURATE CREATININE CLEARANCE IN PREDICTING GLOMERULAR FILTRATION RATE . ESTIMATED GFR I S NOT APPLICABLE FOR DIALYSIS PATIEN TS. CBC W/PLT COUNT & AUTO [id number] 05:57:00 Test Item Value Reference Range Interpretation [...] 413) RAD, ABDOMEN SERIES W/ UPRIGHT PA [id number] 13:35:00Reason for exam:- >Postoperative distentionShould this be performed at the bedside?->NoIs the patient ?->NoFINAL REPORT CLINICAL HISTORY: Postoperative distention TECHNIQUE: Supine and erect abdomen and frontal chest views. COMPARISON: Chest [...] There is no free air. Signed: Megha Horne MDReport Verified Date/Time: 07/02/2019 13:35:05 Reading Location:[facility] Radiology Reading Room [id number] 06:54:00 Test Item Value Reference Range Interpretation Comments LIPASE (BEAKER) (test code = 749) 56 U/L 8-78 COMPREHENSIVE METABOLIC [id number] 06:54:00 Test Item Value Reference Range Interpretation [...] 347) EGFR (BEAKER) (test 61 mL/min/1.73 ESTIMA CARLTON GFR IS code = 1092) sq m NOT ACCURATE CREATININE CLEARANCE IN PREDICTING GLOMERULAR FILTRATION RATE . ESTIMATED GFR I S NOT APPLICABLE FOR DIALYSIS PATIEN TS. CBC W/PLT COUNT & AUTO [id number] 06:31:00 Test Item Value Reference Range Interpretation [...] = 2801) CBC W/PLT COUNT & AUTO [id number] 06:59:00 Test Item Value Reference Range Interpretation [...] 0-1 PERCENT (BEAKER) (test code = 2801) [id number] 06:51:00 Test Item Value Reference Range Interpretation Comments LIPASE (BEAKER) (test code = 749) 53 U/L 8-78 COMPREHENSIVE METABOLIC [id number] 06:51:00 Test Item Value Reference Range Interpretation [...] 347) EGFR (BEAKER) (test 73 mL/min/1.73 ESTIMA CARLTON GFR IS code = 1092) sq m NOT ACCURATE CREATININE CLEARANCE IN PREDICTING GLOMERULAR FILTRATION RATE . ESTIMATED GFR I S NOT APPLICABLE FOR DIALYSIS PATIEN TS. CBC W/PLT COUNT & AUTO [id number] 06:20:00 Test Item Value Reference Range Interpretation [...] GRANULOCYTES-RELATIVE PERCENT (BEAKER) (test code = 2801) [id number] 05:44:00 Test Item Value Reference Range Interpretation Comments LIPASE (BEAKER) (test code = 749) 52 U/L 8-78 COMPREHENSIVE METABOLIC [id number] 05:44:00 Test Item Value Reference Range Interpretation [...] 347) EGFR (BEAKER) (test 80 mL/min/1.73 ESTIMA CARLTON GFR IS code = 1092) sq m NOT ACCURATE CREATININE CLEARANCE IN PREDICTING GLOMERULAR FILTRATION RATE . ESTIMATED GFR I S NOT APPLICABLE FOR DIALYSIS PATIEN TS. [id number] 05:21:00 Test Item Value Reference Range Interpretation Comments LIPASE (BEAKER) (test code = 749) 72 U/L 8-78 COMPREHENSIVE METABOLIC [id number] 05:21:00 Test Item Value Reference Range Interpretation [...] 347) EGFR (BEAKER) (test 85 mL/min/1.73 ESTIMA CARLTON GFR IS code = 1092) sq m NOT ACCURATE CREATININE CLEARANCE IN PREDICTING GLOMERULAR FILTRATION RATE . ESTIMATED GFR I S NOT APPLICABLE FOR DIALYSIS PATIEN TS. CBC W/PLT COUNT & AUTO [id number] 05:14:00 Test Item Value Reference Range Interpretation [...] 0-1 PERCENT (BEAKER) (test code = 2801) [id number] 05:17:00 Test Item Value Reference Range Interpretation Comments LIPASE (BEAKER) (test code = 749) 55 U/L 8-78 COMPREHENSIVE METABOLIC [id number] 05:17:00 Test Item Value Reference Range Interpretation [...] 347) EGFR (BEAKER) (test 81 mL/min/1.73 ESTIMA CARLTON GFR IS code = 1092) sq m NOT ACCURATE CREATININE CLEARANCE IN PREDICTING GLOMERULAR FILTRATION RATE . ESTIMATED GFR I S NOT APPLICABLE FOR DIALYSIS PATIEN TS. CBC W/PLT COUNT & AUTO [id number] 04:59:00 Test Item Value Reference Range Interpretation [...] WBC 0-0 (BEAKER) (test code = 413) [id number] 07:03:00 Test Item Value Reference Range Interpretation Comments LIPASE (BEAKER) (test code = 749) 40 U/L 8-78 COMPREHENSIVE METABOLIC [id number] 07:03:00 Test Item Value Reference Range Interpretation [...] 347) EGFR (BEAKER) (test 77 mL/min/1.73 ESTIMA CARLTON GFR IS code = 1092) sq m NOT ACCURATE CREATININE CLEARANCE IN PREDICTING GLOMERULAR FILTRATION RATE . ESTIMATED GFR I S NOT APPLICABLE FOR DIALYSIS PATIEN TS. CBC W/PLT COUNT & AUTO [id number] 06:03:00 Test Item Value Reference Range Interpretation [...] 0-1 PERCENT (BEAKER) (test code = 2801) [id number] 07:19:00 Test Item Value Reference Range Interpretation Comments LIPASE (BEAKER) (test code = 749) 37 U/L 8-78 COMPREHENSIVE METABOLIC [id number] 07:19:00 Test Item Value Reference Range Interpretation [...] 347) EGFR (BEAKER) (test 68 mL/min/1.73 ESTIMA CARLTON GFR IS code = 1092) sq m NOT ACCURATE CREATININE CLEARANCE IN PREDICTING GLOMERULAR FILTRATION RATE . ESTIMATED GFR I S NOT APPLICABLE FOR DIALYSIS PATIEN TS. CBC W/PLT COUNT & AUTO [id number] 05:30:00 Test Item Value Reference Range Interpretation [...] (BEAKER) (test code = 2801) BASIC METABOLIC [id number] 20:44:00 Test Item Value Reference Range Interpretation [...] 697) EGFR (BEAKER) (test 72 mL/min/1.73 ESTIMA CARLTON GFR IS code = 1092) sq m [...] 0-0 (BEAKER) (test code = 413) PROTHROMBIN [id number] 15:49:00 Test Item Value Reference Range Interpretation Comments PROTIME (BEAKER) (test code = 13.3 seconds 11.9-14.2 759) INR (BEAKER) (test code = 370) 1.1 <=5.9 Effective 02/28/2019: PT Reference Range ChangeNew: 11.9-14.2 Previous: 11.7- 14.7RECOMMENDED COUMADIN/WARFARIN INR THERAPY RANGESSTANDARD DOSE: 2.0-3.0 Includes: PROPHYLAXIS for venous thrombosis, systemic embolization; TREATMENT for venous thrombosis and/or pulmonary embolus.HIGH RISK: Target INR is 2.5-3.5 for patients wiht mechanical heart valves.RAD, CHEST, 1 VIEW, NON [id number] 15:13:00Reason for exam:->preopShould this be performed at the bedside?->YesFINAL REPORT INDICATION: preop COMPARISON: None TECHNIQUE: Single frontal view of the chest. FINDINGS: Lungs and pleura: Clear lungs. No effusion.Heart and mediastinum: Normal heart size. Unremarkable mediastinal contours.Osseous structures: No acute abnormality.Other: None. IMPRESSION: No acute intrathoracic abnormality. Signed: Charmaine Soliz Verified Date/Time: 06/25/2019 15:13:30 Reading Location: [facility] Radiology Reading Room [id number] 11:37:00 Test Item Value Reference Range Interpretation Comments LIPASE (BEAKER) (test code = 749) 168 U/L 8-78 H COMPREHENSIVE METABOLIC [id number] 11:37:00 Test Item Value Reference Range Interpretation [...] 347) EGFR (BEAKER) (test 70 mL/min/1.73 ESTIMA CARLTON GFR IS code = 1092) sq m NOT ACCURATE CREATININE CLEARANCE IN PREDICTING GLOMERULAR FILTRATION RATE . ESTIMATED GFR I S NOT APPLICABLE FOR DIALYSIS PATIEN TS. CBC W/PLT COUNT & AUTO [id number] 11:16:00 Test Item Value Reference Range Interpretation [...] % 0-1 PERCENT (BEAKER) (test code = 2807)"
[2023-03-20] MEDS ORDERED: HYDROCODONE/APAP 10/325 TAB ONE (11:27)
--- NOTE | 2023-03-20 12:02 | RAD REPORT ---
EXAM DESCRIPTION: CT - Thorax Wo Con - 03/20/2023 10:33 am CLINICAL HISTORY: BLUNT CHEST TRAUMA COMPARISON: Thorax W/ Con dated 07/12/2021 TECHNIQUE: Axial thin cut images of the chest were obtained without IV contrast. Multiplanar reforma ts were generated and reviewed. All CT scans are performed using dose optimization technique as appropriate and may include automated exposure control or mA/KV adjustment according to patient size. FINDINGS: Mildly displaced left posterior ninth and tenth rib fractures. Likely healing or healed ri ght posterior eighth and ninth rib fractures. No mass or infiltrate in the lung parenchyma. Minimal left basilar atelectasis. Mild left posterior p leural thickening overlying the fractures. No pleural effusion. No pneumothorax. No abnormal mediastinal or hilar masses or lymphadenopathy seen. No significant aortic or pulmonary a rtery findings. Assessment is limited in the absence of IV contrast. No chest wall mass or abnormal axillary lymphadenopathy. Evaluation of the solid abdominal structures reveals no suspicious findings. Sequelae of gastric bypa ss surgery noted. Status post cholecystectomy. IMPRESSION: Mildly displaced left posterior ninth and tenth rib fractures. Mild overlying pleural th ickening. Likely healing or healed right posterior eighth and ninth rib fractures.
--- NOTE | 2023-03-20 12:12 | ER ---
Nurse's Notes [facility] Name: Janice Bosch Age: 57 yrs Sex: Female : 1965 Arrival Date: 03/20/2023 Time: 09:54 Bed 16 Private MD: Diagnosis: Multiple fractures of ribs, left side Presentation: 03/20 10:03 Chief complaint: Patient states: "I fell last night hitting my back against the metal vg1 bookcase" stating difficulty breathing and pain upon deep inhalation. Bruising noted to Left side of back. Coronavirus screen: Vaccine status: Patient reports receiving the 2nd dose of the covid vaccine. Ebola Screen: Patient negative for fever greater than or equal to 101.5 degrees Fahrenheit, and additional compatible Ebola Virus Disease symptoms Patient denies exposure to infectious person. Patient denies travel to an Ebola-affected area in the 21 days before illness onset. Initial Sepsis Screen: Does the patient meet any 2 criteria? No. Patient's initial sepsis screen is negative. Does the patient have a suspected source of infection? No. Patient's initial sepsis screen is negative. Risk Assessment: Do you want to hurt yourself or someone else? Patient reports no desire to harm self or others. Onset of symptoms was March 19, 2023. 10:03 Method Of Arrival: Wheelchair vg1 10:03 Acuity: BONITA 3 vg1 Triage Assessment: 10:05 General: Appears uncomfortable, Behavior is cooperative. Pain: Complains of pain in vg1 back Pain currently is 6 out of 10 on a pain scale. Derm: Bruising that is on left mid back. Musculoskeletal: Circulation, motion, and sensation intact. Historical: - Allergies: 10:05 Reglan; vg1 10:05 Requip; vg1 - Home Meds: 12:23 clonazepam 0.5 mg Oral tab [Active]; gabapentin 600 mg Oral tab 2 tab [Active]; sg5 propranolol 10 mg Oral tab twice a day [Active]; Protonix 40 mg Oral TbEC once daily [Active]; Prozac 40 mg Oral cap 1 cap once daily [Active]; Zanaflex 4 mg Oral tab 2 tabs nightly [Active]; ziprasidone HCl 60 mg Oral cap at bedtime [Active]; - PMHx: 10:05 Bipolar disorder; bowel obstruction; Fibromyalgia; Hypertension; Migraines; IBS; vg1 - PSHx: 10:05 Hysterectomy; Cholecystectomy; Appendectomy; section; Gastric Bypass; vg1 - Immunization history:: Client reports receiving the 2nd dose of the Covid vaccine. - Social history:: Smoking status: Patient denies any tobacco usage or history of. Screenin:07 [facility] ED Fall Risk Assessment (Adult) History of falling in the last 3 months, vg1 including since admission Yes- single mechanical fall (1 pt) Confusion or Disorientation No (0 pts) Intoxicated or Sedated No (0 pts) Impaired Gait No (0 pts) Mobility Assist Device Used No (0 pt) Altered Elimination No (0 pt) Score/Fall Risk Level 0 - 2 = Low Risk Oriented to surroundings, Maintained a safe environment, Educated pt \\T\\ family on fall prevention, incl call for assistance when getting out of bed, Assessed \\T\\ reinforced patient's understanding of fall precautions. Abuse screen: Denies threats or abuse. Denies injuries from another. Nutritional screening: No deficits noted. Tuberculosis screening: No symptoms or risk factors identified. Assessment: 10:07 General: Appears in no apparent distress. comfortable, Behavior is calm, cooperative, sg5 appropriate for age. Pain: Complains of pain in left mid back and back. Neuro: Level of Consciousness is awake, alert, obeys commands, Oriented to person, place, time, situation, Appropriate for age. Cardiovascular: Capillary refill < 3 seconds Patient's skin is warm and dry. Respiratory: Airway is patent Respiratory effort is even, unlabored. Respiratory: Reports shortness of breath on exertion. GI: No signs and/or symptoms were reported involving the gastrointestinal system. : No signs and/or symptoms were reported regarding the genitourinary system. EENT: No signs and/or symptoms were reported regarding the EENT system. Derm: Reports pain that is 6 out of 10 on a pain scale. Musculoskeletal: No signs and/or symptoms reported regarding the musculoskeletal system. Vital Signs: 10:03 BP 112 / 72; Pulse 86; Resp 18; Pulse Ox 97% on R/A; Weight 54.43 kg; Height 5 ft. 2 vg1 in. ; Pain 6/10; 10:40 BP 92 / 62; Pulse 74; Resp 18; Pulse Ox 100% on R/A; Pain 6/10; sg5 11:20 BP 96 / 65; Pulse 75; Resp 16; Pulse Ox 100% on R/A; Pain 5/10; sg5 11:50 BP 100 / 62; Pulse 69; Resp 16; Pulse Ox 99% on R/A; Pain 4/10; sg5 10:03 Body Mass Index 21.95 (54.43 kg, 157.48 cm) vg1 10:03 Pain Scale: Adult vg1 10:40 Pain Scale: Adult sg5 11:20 Pain Scale: Adult sg5 11:50 Pain Scale: Adult sg5 ED Course: 09:55 Patient arrived in ED. ts1 09:56 [facility]C [facility]. kb 09:56 Angely Platt MD is Attending Physician. kb 10:00 Kristina Haddad, RN is Primary Nurse. sg5 10:05 Triage completed. vg1 10:05 Arm band placed on. vg1 10:07 Patient has correct armband on for positive identification. Placed in gown. Bed in low vg1 position. Call light in reach. Side rails up X 1. Adult w/ patient. Client placed on continuous cardiac and pulse oximetry monitoring. NIBP monitoring applied. 10:35 CT Chest Wo Con In Process Unspecified. EDMS 12:22 No provider procedures requiring assistance completed. Patient did not have IV access sg5 during this emergency room visit. Administered Medications: 11:20 Drug: [place] PO 10 mg-325 mg 1 tabs Route: PO; sg5 12:18 Drug: Ketorolac IM 30 mg Route: IM; Site: left gluteus; sg5 Medication: 12:24 VIS not applicable for this client. sg5 Outcome: 12:12 Discharge ordered by . kb 12:22 Discharged to home with family. sg5 12:22 Condition: good 12:22 Discharge instructions given to patient, Instructed on discharge instructions, follow up and referral plans. 12:24 Patient left the ED. sg5 Signatures: Dispatcher [employer] EDMS Alee Gabriel FNP-C FNP-Julia Magana, RN RN vg1 Kristina Haddad, LEONID JAQUEZ sg5 Tika Tsai PAS PAS ts1
--- NOTE | 2023-03-20 12:12 | EDPHYS ---
Physician Documentation [facility] Name: Janice Bosch Age: 57 yrs Sex: Female : 1965 Arrival Date: 03/20/2023 Time: 09:54 Bed 16 Private MD: ED Physician Angely Platt HPI: 03/20 11:11 This 57 yrs old Female presents to ER via Wheelchair with complaints of Back Pain, kb Shortness Of Breath. 11:11 Details of fall: The patient fell from an upright position. Onset: The symptoms/episode kb began/occurred yesterday. Associated injuries: The patient sustained left mid back, ecchymosis, painful injury. Severity of symptoms: At their worst the symptoms were moderate, in the emergency department the symptoms are unchanged. The patient has not experienced similar symptoms in the past. The patient has not recently seen a physician. Pt reports she fell backwards yesterday, hitting back on metal bookshelf. Reports increased pain today, worse with breathing. Reports pain radiates to chest. Historical: - Allergies: 10:05 Reglan; vg1 10:05 Requip; vg1 - Home Meds: 12:23 clonazepam 0.5 mg Oral tab [Active]; gabapentin 600 mg Oral tab 2 tab [Active]; sg5 propranolol 10 mg Oral tab twice a day [Active]; Protonix 40 mg Oral TbEC once daily [Active]; Prozac 40 mg Oral cap 1 cap once daily [Active]; Zanaflex 4 mg Oral tab 2 tabs nightly [Active]; ziprasidone HCl 60 mg Oral cap at bedtime [Active]; - PMHx: 10:05 Bipolar disorder; bowel obstruction; Fibromyalgia; Hypertension; Migraines; IBS; vg1 - PSHx: 10:05 Hysterectomy; Cholecystectomy; Appendectomy; section; Gastric Bypass; vg1 - Immunization history:: Client reports receiving the 2nd dose of the Covid vaccine. - Social history:: Smoking status: Patient denies any tobacco usage or history of. ROS: 11:00 Constitutional: Negative for fever, chills, and weight loss. kb 11:00 Cardiovascular: Positive for chest pain, with cough, with movement, of the left mid back. 11:00 Back: Positive for pain at rest, pain with movement. 11:00 All other systems are negative. Exam: 11:00 Constitutional: This is a well developed, well nourished patient who is awake, alert, kb and in no acute distress. Head/Face: Normocephalic, atraumatic. ENT: Moist Mucous membranes Cardiovascular: Regular rate and rhythm with a normal S1 and S2. No gallops, murmurs, or rubs. No pulse deficits. Respiratory: Respirations even and unlabored. No increased work of breathing. Talking in full sentences Abdomen/GI: Soft, non-tender. No distention Skin: Warm, dry with normal turgor. Normal color. MS/ Extremity: Pulses equal, no cyanosis. Neurovascular intact. Full, normal range of motion. Neuro: Awake and alert, GCS 15, oriented to person, place, time, and situation. Moves all extremities. Normal gait. 11:00 Chest/axilla: Inspection: normal, Palpation: is normal. 11:00 ECG was reviewed by the Attending Physician. 11:00 Back: pain, that is moderate, of the left mid back, ROM is painful, small bruise at bra line. Vital Signs: 10:03 BP 112 / 72; Pulse 86; Resp 18; Pulse Ox 97% on R/A; Weight 54.43 kg; Height 5 ft. 2 vg1 in. ; Pain 6/10; 10:40 BP 92 / 62; Pulse 74; Resp 18; Pulse Ox 100% on R/A; Pain 6/10; sg5 11:20 BP 96 / 65; Pulse 75; Resp 16; Pulse Ox 100% on R/A; Pain 5/10; sg5 11:50 BP 100 / 62; Pulse 69; Resp 16; Pulse Ox 99% on R/A; Pain 4/10; sg5 10:03 Body Mass Index 21.95 (54.43 kg, 157.48 cm) vg1 10:03 Pain Scale: Adult vg1 10:40 Pain Scale: Adult sg5 11:20 Pain Scale: Adult sg5 11:50 Pain Scale: Adult sg5 MDM: 09:56 Patient medically screened. kb 11:12 Differential diagnosis: contusion, fracture, pneumothorax. Data reviewed: vital signs, kb nurses notes. 12:09 Counseling: I had a detailed discussion with the patient and/or guardian regarding: the kb historical points, exam findings, and any diagnostic results supporting the discharge/admit diagnosis, radiology results, the need for outpatient follow up, a family practitioner, to return to the emergency department if symptoms worsen or persist or if there are any questions or concerns that arise at home. 03/20 10:01 Order name: CT Chest Wo Con; Complete Time: 12:09 kb 03/20 10:01 Order name: EKG; Complete Time: 10:02 kb 03/20 10:01 Order name: EKG - Nurse/Tech; Complete Time: 10:25 kb EC:00 Rate is 79 beats/min. Rhythm is regular. QRS Ona is Normal. FL interval is normal at kb 152 msec. QRS interval is normal at 82 msec. QT interval is normal at 442 msec. Administered Medications: 11:20 Drug: Spring PO 10 mg-325 mg 1 tabs Route: PO; sg5 12:18 Drug: Ketorolac IM 30 mg Route: IM; Site: left gluteus; sg5 Disposition Summary: 03/20/23 12:12 Discharge Ordered Location: Home kb Condition: Stable kb Diagnosis - Multiple fractures of ribs, left side kb Followup: kb - With: Emergency Department - When: As needed - Reason: Worsening of condition Followup: kb - With: Private Physician - When: 2 - 3 days - Reason: Recheck today's complaints, Continuance of care, Re-evaluation by your physician Discharge Instructions: - Discharge Summary Sheet kb - Rib Fracture, [id number] kb Forms: - Medication Reconciliation Form kb - Thank You Letter kb - Antibiotic Education kb - Prescription Opioid Use kb Prescriptions: - Diclofenac Sodium 75 mg Oral tablet,delayed release (DR/EC) - take 1 tablet by ORAL route 2 times per day As needed; 30 tablet; Refills: 0, kb Product Selection Permitted - orphenadrine citrate 100 mg Oral Tablet Sustained Release - take 1 tablet by ORAL route 2 times per day As needed; 20 tablet; Refills: 0, kb Product Selection Permitted Signatures: Dispatcher [employer] Alee Darnell FNP-C FNP-Ckb Garcia, Victoria, RN RN vg1 Kristina Haddad RN RN sg5 Corrections: (The following items were deleted from the chart) 11:01 11:00 Back: pain, that is moderate, of the left mid back, ROM is painful, kb kb
[2023-03-20] MEDS ORDERED: KETOROLAC 30 MG/ML INJ ONE (12:23)
[2023-03-20 12:33] VITALS: BP 100/62; O2SAT 99
== END 2023-03-20 12:24 | disposition home or self-care (01) ==
LOC: ER 09:54
DX: S22.42XA Multiple fractures of ribs, left side, initial encounter for closed fracture (principal); I10 Essential (primary) hypertension; F31.9 Bipolar disorder, unspecified; Z88.8 Allergy status to other drugs, medicaments and biological substances
CPT/HCPCS: 71250; 93005; 96372; 99284

== ENCOUNTER 2023-04-08 20:22 | Emergency (ER) | payer MEDICARE ==
--- OUTSIDE RECORDS SUMMARY | 2023-04-08 20:34 | XMS REPORT | Continuity of Care Document ---
:1965 Author Organization [facility] t Address [address] [place] [address] [address] [place] [address] Care Team Providers Name Role Phone No, Pcp [facility] Primary Care Physician Unavailable Davin Platt Attending Clinician Unavailable Marla La Attending Clinician Melissa Dunham Attending Clinician Unavailable Jorge A Attending Clinician Unavailable SHAN SANTANA Attending Clinician Unavailable Shan Santana MD Attending Clinician Doctor Unassigned, [place] Attending Clinician Unavailable Almita Moore MA Attending Clinician Unavailable SCAR OJEDA Attending Clinician Unavailable NILAY LENNON Attending Clinician Unavailable Nilay Lennon DO Attending Clinician Spike Puri RN Attending Clinician Unavailable JESUS MORA Attending Clinician Unavailable Hill Piña Attending Clinician Pauly Tanner Attending Clinician Herbie Olvera MD Attending Clinician Jesus Mora DO Attending Clinician Abdirizak Krueger MD Attending Clinician [phone] ABDIRIZAK KRUEGER Attending Clinician Unavailable CARLTON ECHEVERRIA Attending Clinician Unavailable Carlton Echeverria MD Attending Clinician Zenaida Harris PA-C Attending Clinician KENYA CONNOLLY Attending Clinician Unavailable RenukaR Admitting Clinician Unavailable SHAN SANTANA Admitting Clinician Unavailable NILAY LENNON Admitting Clinician Unavailable JESUS MORA Admitting Clinician Unavailable Jesus Mora DO Admitting Clinician CARLTON ECHEVERRIA Admitting Clinician Unavailable Carlton Echeverria MD Admitting Clinician MYLENE BOBBY Admitting Clinician Unavailable Payers Payer Name Policy Type Policy Number Effective Date Expiration Date S [facility] 2022 (MEDICARE 00:00:00 REPLACEMENT HMO) [employer] [id number] 2020spring 00:00:00 [facility] [id number] 2018 Common g Medicare 00:00:00 Spirit - [facility] Replace [facility] Problems Condition Condition Condition Status Onset Resolution Last Treating Co mments Source Name Details Category Date Date Treatment Clinician Date Abdominal Abdominal Disease Active Uni vers pain, pain, 9-14 ity [place]spec[place] 00 Medical abdominal abdominal Bran ch location location Small Small Disease Recurre [facility] bowel bowel nce 06-26 [facility] obstructio obstructio 00:00: Me dical n n 00 Center Pancreatit Pancreatit Disease Active C HI St is is 06-25 [facility] 00:00: Medical 00 Center Perimenopa Post Problem Commo n usal hysterecto Spirit disorder my - CHI menopause [facility] Chronic Stage 3b Problem Common kidney chronic Spirit disease kidney - CHI stage 3B disease St (disorder) [facility] Mixed Depression Problem Commo n anxiety with Spirit and anxiety - CHI depressive disorder [facility] Benign Benign Problem Common essential essential Spir it hypertensi hypertensi - CHI on on [facility] Bipolar Bipolar Problem Common disorder disorder Spirit - [facility] Solitary Solitary Problem Commo n cyst of cyst of Spirit breast left - CHI breast [facility] [id number] Irritable Problem Comm on bowel Spirit syndrome, - CHI unspecifie [facility] Migraine Migraine Problem Commo n without without Spirit aura, not aura and - CHI refractory without [facility] migrainosu Medica l s, not Center intractabl e [id number] Mixed Problem Common hyperlipid [facility] emia [facility] [id number] Nausea Problem Common Spirit [facility] [id number] Fibromyalg Problem Co mmon ia Spirit [facility] [id number] Hemorrhoid Problem Com mon s, Spirit unspecifie - CHI d hemorrhoid [facility] Pain in Left wrist Problem Comm on wrist pain [facility] [id number] Back pain Problem Com mon with Spirit left-sided - CHI radiculopa [facility] [id number] History of Problem Co mmon intussusce Spirit ption [facility] [id number] Constipati Problem Com mon on, Spirit unspecifie - CHI d constipati [facility] [id number] GERD Problem Common without Spirit esophagiti - CHI s [facility] [id number] Subclinica Problem Com mon l Spirit hypothyroi - CHI dism [facility] [id number] +5th digit Problem Co mmon eff Spirit 07/03/20*CK - CHI D (chronic kidney [facility] disease) Medical stage 3, Center GFR 30-59 ml/min Right Abdominal Problem Common upper pain, RUQ Spirit quadrant - CHI pain [facility] No known No known Disease Unive rs active active ity of problems problems [facility] Allergies, Adverse Reactions, Alerts Allergy Allergy Status Severity Reaction(s) Onset Inactive Treating Comm ents Source Name Type Date Date Clinician METOCLOP DRUG Active Anxiety 2020-10 Univers RAMIDE INGREDI 10-19 ity of 00:00: [address] Branch ROPINIRO DRUG Active N/V 2020-10 Univers LE INGREDI 10-19 ity of 00:00: [address] Metoclop Propensi Active Anxiety 2020-10 Unive rs ramide ty to 10-19 ity of adverse 00:00: [place] reaction 00 Medical Branch Ropiniro Propensi Active Nausea 2020-10 Univer s le ty to and/or 1-17 ity of adverse Vomiting 00:00: [place] reaction 00 Medical Branch Metoclop Propensi Active [facility] ramide ty to 9-23 [facility] adverse 00:00: Medical reaction 00 Center s Ropiniro Propensi Active [facility] ty to 9-23 [facility] adverse 00:00: Medical reaction 00 Center s METOCLOP Allergy Active [facility] RAMIDE 9-23 [facility] 00:00: Medical 00 Center ROPINIRO Allergy Active [facility] LE 9-23 [facility] 00:00: Medical 00 [place] Hydrochl Propensi Active Other - See 2016-10 Weak U nivers orothiaz ty to comments 0-10 ity of noel adverse 00:00: [place] reaction 00 [facility] HYDROCHL DRUG Active High Other-Cmnt 2016-10 Univ ers OROTHIAZ INGREDI 0-10 ity of NOEL 00:00: [place] 00 [facility] metoclop metoclop Active Unknown Commo n ramide ramide Spirit - [facility] 5921 Drug Active Unknown Common allergy [facility] Social History Social Habit Start Date Stop Date Quantity Comments Source History of Common Spirit - Tobacco Use [facility] History SDOH [facility] Drinks History SDOH [facility] Alcohol Binge Medical Bruna ter Exposure to 2022-09-13 2022-09-23 Not sure [facility] SARS-CoV-2 00:00:00 14:14:00 [facility] (event) Branch Education 2022-06-16 2022-06-16 21 University of 00:00:00 00:00:00 [facility] Alcohol intake 2022-04-14 2022-04-[address] [...] Date Stop Date Source Never smoked tobacco [facility] Medications Ordered Filled Start Stop Current Ordering Indication Dosage Frequency Signature Comments Components Source Medication Medication Date Date Medication? Clinician (SIG) Name Name ketorolac 2021-10 No 15mg 15 mg, Unive rs (TORADOL) 024 07-27 Slow IV ity of injection 23:00: 22:59 [place], Q6H, [place] 15 mg 00 :00 4 doses, Medical First dose Branch on Tue07/26/22 at 1800, Last dose on Tue07/27/22 at 1200, Routine HYDROcodone 2021-10 No 1{tbl} 1 tablet, Univers -acetaminop 0-24 -24 Oral, ity of hen (NORCO) 20:45: 19:52 ONCE, 1 [place] 10-325 mg 00 :00 dose, On Medica l tablet 1 Tue [place] tablet 07/26/22 at 1545, Routine methocarbam 2021-10 No 1000mg 1,000 mg, Univers oL 0-24 -24 Oral, ity of (ROBAXIN) 17:45: 18:58 ONCE, 1 [place] tablet 00 :00 dose, On Medical 1,000 mg [facility] Branch 07/26/22 at 1245, RUBEN naproxen 2021-10 Yes [id number] 550mg Take 1 Univers sodium 550 0-24 [id number] tablet by it y of mg tablet 00:00: mouth in [place] Medical morning Branch and 1 tablet in the evening. Take with meals. methylPREDN 2021-10 Yes [id number] Take by Univers ISolone 4 0-24 [id number] mouth ity of mg tablets 00:00: [place]-INSTRU [place] 00 CTIONS. Medical follow Branch package directions naproxen 2021-10 Yes [id number] 550mg Take 1 Univers sodium 550 0-24 [id number] tablet by it y of mg tablet 00:00: [place] 00 the Medical morning Branch and 1 tablet in the evening. Take with meals. methylPREDN 2021-10 Yes [id number] Take by Univers ISolone 4 0-24 [id number] mouth ity of mg tablets 00:00: [place]-INSTRU [place] 00 CTIONS. Medical follow Branch package directions naproxen 2021-10 Yes [id number] 550mg Take 1 Univers sodium 550 0-24 [id number] tablet by it y of mg tablet 00:00: [place] 00 the Medical morning Branch and 1 tablet in the evening. Take with meals. methylPREDN 2021-10 Yes [id number] Take by Univers ISolone 4 0-24 [id number] mouth ity of mg tablets 00:00: SEE-INSTRU [place] 00 CTIONS. Medical follow Branch package directions methocarbam 2021-10- No [id number] 500mg Take 1 Univers oL 500 mg 008-01 [id number] tablet by it y of tablet 00:00: 04:59 mouth in [place] 00 :00 the Medical morning Branch and 1 tablet at noon and 1 tablet in the evening. Do all this for 5 days. lidocaine 5 2021-10- No [id number] 1{patch Apply 1 Univers % (700 007-27 [id number] } Patch to ity of mg/patch) 00:00: [...] by mouth ity of capsule 12:24: daily. [place] [address] Medical Branch PANTOPRAZOL 0 Yes 40mg Take 40 mg Univers E SODIUM 9-19 by mouth. ity of (PROTONIX 12:24: [place] ORAL) 20 Medical Branch tiZANidine 0 Yes 4mg Take 4 mg Un henry 4 mg 9-19 by mouth 2 ity of capsule 12:24: (two) [place] 20 times Medical daily. Branch IRON &IRON 0 Yes Take by Univ ers ASP 9-19 mouth. ity of GLY-FA-MV,M 12:24: Indication [place] IN38 ORAL 20 s: iron Medical injectio Branch once a month propranolol 2021-0 Yes 20mg Take 20 mg Univers 20 mg 9-19 by mouth ity of tablet 12:24: daily. [place] 20 Medical Branch levothyroxi 0 Yes 50ug [...] by ity of tablet 12:24: mouth at [place] 20 bedtime as Medical needed for Branch Sleep. buspirone 0 Yes 5mg Take 5 mg Uni vers HCl 9-19 by mouth ity of (BUSPIRONE 12:24: as needed. [place] ORAL) 20 Medical Branch LORazepam 0 Yes .5mg Take 0.5 Univ ers 0.5 mg 9-19 mg by ity of tablet 12:24: mouth as [place] [address] needed. Medical Branch venlafaxine 0 Yes 75mg Take 75 mg Univers XR 75 mg 24 9-19 by mouth ity of hr capsule 12:24: daily with [place] 20 breakfast. Medical Branch lamoTRIgine 0 Yes 200mg Take 200 U nivers 200 mg 9-19 mg by ity of tablet 12:24: mouth in [place] 20 the Medical morning. Branch gabapentin 0 Yes 300mg Take 300 Un henry 300 mg 9-19 mg by ity of capsule 12:24: mouth 3 [place] 20 (three) Medical times Branch daily. Indication s: 1 in the Am and 4 at bed time ziprasidone 2021-0 Yes 60mg Take 60 mg Univers 60 mg 9-19 by mouth ity of capsule 12:24: daily. [place] [address] Medical Branch PANTOPRAZOL 0 Yes 40mg Take [...] by mouth ity of tablet 12:24: daily. [place] [address] Medical Branch levothyroxi 0 Yes 50ug Take 50 Uni vers ne 50 mcg 9-19 mcg by ity of tablet 12:24: mouth [place] 20 every Medical morning. Branch hydrOXYzine 2021-0 Yes 50mg Take 50 mg Univers 50 mg 9-19 by mouth ity of tablet 12:24: in the [place] 20 morning Medical and 50 mg Branch in the evening. zolpidem 2021-0 Yes 12.5mg Take 12.5 Un henry 12.5 mg CR 9-19 mg by ity of tablet 12:24: mouth at [place] [address] bedtime as Medical needed for Branch Sleep. buspirone 2021-0 Yes 5mg Take 5 mg Uni vers HCl -19 by mouth ity of (BUSPIRONE 12:24: as needed. [place] ORAL) 20 Medical Branch LORazepam 2021-0 Yes .5mg Take 0.5 Univ ers 0.5 mg 9-19 mg by ity of tablet 12:24: mouth as [place] [address] needed. Medical Branch venlafaxine 2021-0 Yes 75mg Take 75 mg Univers XR 75 mg 24 06-21 by mouth ity of hr capsule 12:24: daily with [place] 20 breakfast. Medical Branch lamoTRIgine 2021-0 Yes 200mg Take 200 U nivers 200 mg 9-19 mg by ity of tablet 12:24: mouth in [place] 20 the Medical morning. Branch gabapentin 2021-0 Yes 300mg Take 300 Un henry 300 mg 9-19 mg by ity of capsule 12:24: mouth 3 [place] 20 (three) Medical times Branch daily. Indication s: 1 in the Am and 4 at bed time ziprasidone 2021-0 Yes 60mg Take 60 mg Univers 60 mg 9-19 by mouth ity of capsule 12:24: daily. [place] 20 Medical Branch PANTOPRAZOL 2021-0 Yes 40mg Take [...] by mouth ity of tablet 12:24: daily. [place] [address] Medical Branch levothyroxi 0 Yes 50ug Take 50 Uni vers ne 50 mcg 9-19 mcg by ity of tablet 12:24: mouth [place] 20 every Medical morning. Branch hydrOXYzine 0 Yes 50mg Take 50 mg Univers 50 mg 9-19 by mouth ity of tablet 12:24: in the [place] 20 morning Medical and 50 mg Branch in the evening. zolpidem 0 Yes 12.5mg Take 12.5 Un henry 12.5 mg CR 9-19 mg by ity of tablet 12:24: mouth at [place] [address] bedtime as Medical needed for Branch Sleep. buspirone 0 Yes 5mg Take 5 mg Uni vers HCl 9-19 by mouth ity of (BUSPIRONE 12:24: as needed. [place] ORAL) 20 Medical Branch LORazepam 0 Yes .5mg Take 0.5 Univ ers 0.5 mg 9-19 mg by ity of tablet 12:24: mouth as [place] [address] needed. Medical Branch venlafaxine 0 Yes 75mg Take 75 mg Univers XR 75 mg 24 9-19 by mouth ity of hr capsule 12:24: daily with [place] 20 breakfast. Medical Branch lamoTRIgine 0 Yes 200mg Take 200 U nivers 200 mg 9-19 mg by ity of tablet 12:24: mouth in [place] 20 the Medical morning. Branch gabapentin 0 Yes 300mg Take 300 Un henry 300 mg 9-19 mg by ity of capsule 12:24: mouth 3 [place] 20 (three) Medical times Branch daily. Indication s: 1 in the Am and 4 at bed time ziprasidone 2021-0 Yes 60mg Take 60 mg Univers 60 mg 9-19 by mouth ity of capsule 12:24: daily. [place] [address] Medical Branch PANTOPRAZOL 0 Yes 40mg Take [...] mouth. ity of GLY-FA-MV,M 12:24: Indication [place] IN ORAL 20 s: iron Medical injectio Branch once a month propranolol 2021-0 Yes 20mg Take 20 mg Univers 20 mg 9-19 by mouth ity of tablet 12:24: daily. [place] [address] Medical Branch levothyroxi 2021-0 Yes 50ug Take 50 Uni vers ne 50 mcg 9-19 mcg by ity of tablet 12:24: mouth [place] [address] every Medical morning. Branch hydrOXYzine 0 Yes 50mg Take 50 mg Univers 50 mg 9-19 by mouth ity of tablet 12:24: in the [place] 20 morning Medical and 50 mg Branch in the evening. zolpidem 2021-0 Yes 12.5mg Take 12.5 Un henry 12.5 mg CR 9-19 mg by ity of tablet 12:24: mouth at [place] [address] bedtime as Medical needed for Branch Sleep. buspirone 2021-0 Yes 5mg Take 5 mg Uni vers HCl 9-19 by mouth ity of (BUSPIRONE 12:24: as needed. [place] ORAL) 20 Medical Branch LORazepam 2021-0 Yes .5mg Take 0.5 Univ ers 0.5 mg 9-19 mg by ity of tablet 12:24: mouth as [place] [address] needed. Medical Branch venlafaxine 0 Yes 75mg Take 75 mg Univers XR 75 mg 24 9-19 by mouth ity of hr capsule 12:24: daily with [place] 20 breakfast. Medical Branch lamoTRIgine 2021-0 Yes 200mg Take 200 U nivers 200 mg 9-19 mg by ity of tablet 12:24: mouth in [place] 20 the Medical morning. Branch gabapentin 2021-0 Yes 300mg Take 300 Un [place] 300 mg 9-19 mg by ity of capsule 12:24: mouth 3 [place] 20 (three) Medical times Branch daily. Indication s: 1 in the Am and 4 at bed time ziprasidone 2021-0 Yes 60mg Take 60 mg Univers 60 mg 9-19 by mouth ity of capsule 12:24: daily. [place] [address] Medical Branch PANTOPRAZOL 2021-0 Yes 40mg Take 40 mg Univers E SODIUM 9-19 by mouth. ity of (PROTONIX 12:24: [place] ORAL) 20 Medical Branch tiZANidine 0 Yes 4mg Take 4 mg Un henry 4 mg 9-19 by mouth 2 ity of capsule 12:24: (two) [place] 20 times Medical daily. Branch IRON &IRON Yes Take by Univ ers ASP 9-19 mouth. ity of LINUS-LATOYA,M 12:24: Indication [place] IN38 ORAL 20 s: iron Medical injectio Branch once a month propranolol 0 Yes 20mg Take 20 mg Univers 20 mg 9-19 by mouth ity of tablet 12:24: daily. [place] 20 Medical Branch levothyroxi 0 Yes 50ug Take 50 Uni vers ne 50 mcg 9-19 mcg by ity of tablet 12:24: mouth [place] 20 every Medical morning. Branch hydrOXYzine 0 Yes 50mg Take 50 mg Univers 50 mg 9-19 by mouth ity of tablet 12:24: in the [place] 20 morning Medical and 50 mg Branch in the evening. zolpidem Yes 12.5mg Take 12.5 Un henry 12.5 mg CR 9-19 mg by ity of tablet 12:24: mouth at [place] 20 bedtime as Medical needed for Branch Sleep. buspirone 0 Yes 5mg Take 5 mg Uni vers HCl 9-19 by mouth ity of (BUSPIRONE 12:24: as needed. [place] ORAL) 20 Medical Branch LORazepam Yes .5mg Take 0.5 Univ ers 0.5 mg 9-19 mg by ity of tablet 12:24: mouth as [place] [address] needed. Medical Branch venlafaxine Yes 75mg Take 75 mg Univers XR 75 mg 24 06-21 by mouth ity of hr capsule 12:24: daily with [place] 20 breakfast. Medical Branch lamoTRIgine 0 Yes 200mg Take 200 U nivers 200 mg 9-19 mg by ity of tablet 12:24: mouth in [place] 20 the Medical morning. Branch FLUoxetine 2021-0 2021- No 40mg Take 40 mg Univers 40 mg 06-21 by mouth ity of capsule 11:03: 00:00 daily. [place] 56 :00 Medical Branch DICLOFENAC 2021-0 2021- [...] 7 days. Indication s: acute pain KCL 2021- No 40meq 40 mEq, Univers (KLOR-CON 06-20 [...] Medical RTU 10 mEq First dose Bra nch on 06/20/22 at 0800, Last dose on [...] carlos 1:1:1 [place] Branch (FIRST-MOUT 06/17/22 at [facility]) 2100, oral Routine suspension 15 mL HYDROcodone 0 Yes 1{tbl} 1 tablet, Univers -acetaminop 06-18 Oral, ity of hen (NORCO 01:00: Q6HPRN, [place] 5) 5-325 mg 34 Starting Medi [place] tablet 1 on [facility] Branch Branch tablet 06/17/22 at 2000, Until Discontinu ed, Routine, Pain (scale 4-6) morpHINE (2 Yes 2mg 2 mg, Slow Univers mg/mL) 06-17 IV Push, ity of injection 2 20:14: Q6HPRN, [place] as mg 54 Starting Medical on [place] Branch 06/17/22 at 1514, Until Discontinu ed, Routine, Pain (scale 7-10) maalox:diph 2021-0 2021- No 15mL 15 mL, Uni vers enhydrAMINE 06-17 Oral, ity of :lidocaine 15:45: 15:51 ONCE, 1 [place] as 2 % viscous 00 :00 dose, On Medi carlos 1:1:1 [facility] Branch Branch (FIRST-MOUT 06/17/22 at [facility]) 1045, oral Routine suspension 15 mL pantoprazol Yes 40mg 40 mg, Univ ers e 06-17 Oral, ity of (PROTONIX) 14:00: DAILY, [place] EC tablet 00 First dose Medi carlos 40 mg on [place] Branch 06/17/22 at 0900, Until Discontinu ed lamoTRIgine Yes 200mg 200 mg, Un henry (LAMICTAL) 06-17 Oral, ity of tablet 200 14:00: DAILY, [place] mg 00 First dose Medical on [facility] Branch Branch 06/17/22 at 0900, Until Discontinu ed, Routine venlafaxine Yes 75mg 75 mg, Univ ers XR (EFFEXOR 06-17 Oral, QAM ity of XR) 24 hr 13:00: WITH [place] capsule 75 00 BREAKFAST, Med ical mg First dose Branch on [place] 06/17/22 at 0800, Until Discontinu ed, Routine tiZANidine Yes 4mg 4 mg, Univer s (ZANAFLEX) 06-17 Oral, BID, ity of tablet 4 mg 13:00: First dose [place] 00 on [facility] Branch Medical 06/17/22 at Branch 0800, Until Discontinu ed propranoloL 0 Yes 20mg 20 mg, Univ ers (INDERAL) 15 Oral, BID, ity of tablet 20 13:00: First dose [place] mg 00 on [facility] 06/17/22 at Branch 0800, Until Discontinu ed, Routine heparin 0 Yes 5000U 5,000 Univers (porcine) 15 Units, ity of injection 13:00: Subcutaneo [place] 5,000 Units 00 us, Q12H, Med ical First dose Branch on [facility] Branch 06/17/22 at 0800, Until Discontinu ed, Routine levothyroxi Yes 50ug 50 mcg, Uni vers ne 06-17 Oral, ity of (SYNTHROID) 11:00: QAM-0600, [place] tablet 50 00 First dose Medi carlos mcg on [facility] 06/17/22 at 0600, Until Discontinu ed, Routine ziprasidone Yes 120mg 120 mg, Un henry (GEODON) 06-17 Oral, QHS, ity o f capsule 120 08:30: First dose [place] mg 00 on [facility] 06/17/22 at Branch 0330, Until Discontinu ed, Routine NaCl 0.9% 2021- No 1000mL at 100 Uni vers (NS) IV 06-17 09-17 mL/hr, IV ity of infusion 07:15: 22:39 Infusion, [place] 1,000 mL 00 :15 CONTINUOUS Medic al , Starting Branch on [facility] Branch 06/17/22 at 0215, Until 06/19/22 at 1739, Routine NaCl 0.9% 2021- No 1000mL at 999 Uni vers (NS) bolus 06-17 09-15 mL/hr, ity of infusion 07:15: 07:48 1,000 mL, [place] 1,000 mL 00 :04 IV Medical Piggyback, Branch ONCE, 1 dose, On [facility] Branch 06/17/22 at 0215, RUBEN gabapentin 0 Yes 300mg 300 mg, Uni vers (NEURONTIN) 15 Oral, TID, it y of capsule 300 06:30: First dose [place] mg 00 on [facility] 06/17/22 at Branch 0130, Until Discontinu ed, Routine hydrOXYzine 0 Yes 25mg 25 mg, Univ ers (ATARAX) 915 Oral, ity of tablet 25 06:19: Q6HPRN, [place] mg 36 Starting Medical on [place] Branch 06/17/22 at 0119, Until Discontinu ed, Routine, Anxiety zolpidem 2021-0 Yes 10mg 10 mg, Univers (AMBIEN) 15 Oral, ity of tablet 10 06:18: QHSPRN, [place] mg 39 Starting Medical on [facility] Branch Branch 06/17/22 at 0118, Until Discontinu ed, Insomnia LORazepam 2021-0 Yes .5mg 0.5 mg, Unive rs (ATIVAN) 15 Oral, ity of tablet 0.5 06:16: BIDPRN, [place] mg 51 Starting Medical on [facility] Branch Branch 06/17/22 at 0116, Until Discontinu ed, Routine, Agitation sennosides 0 Yes 8.6mg 8.6 mg, Uni vers (SENOKOT) 15 Oral, BID, ity of tablet 8.6 06:15: First dose [place] mg 00 on [facility] Branch Medical 06/17/22 at Branch 0115, Until Discontinu ed, Routine docusate 0 Yes 100mg 100 mg, Unive rs (COLACE) 15 Oral, BID, ity o f capsule 100 06:15: First dose [place] mg 00 on [facility] Branch Medical 06/17/22 at Branch 0115, Until Discontinu ed, Routine pantoprazol 2021- No 40mg 40 mg, Uni vers e 06-17-18 Slow IV ity of (PROTONIX) 06:15: 15:58 Push, [place] injection 00 :22 Q12H, Medical 40 mg First dose Branch on [place] 06/17/22 at 0115, Until Discontinu ed ondansetron 0 Yes 4mg 4 mg, Slow Univers (ZOFRAN 06-17 IV Push, ity of (PF)) 06:06: Q6HPRN, [place] injection 4 09 Starting Medi carlos mg on [place] Branch 06/17/22 at 0106, Until Discontinu ed, Routine, Nausea and Vomiting (N/V) morpHINE (4 0 2021- No 4mg 4 mg, Slow Univers mg/mL) 06-17 IV Push, ity of injection 4 03:15: 03:21 ONCE, 1 [place] mg 00 :00 dose, On Medical Wed Branch 06/16/22 at 2215, STAT ondansetron 2021- No 4mg 4 mg, Slow Univers (ZOFRAN [...] Wed Branch 06/16/22 at 2115, STAT iopamidol 2021- No [id number] 70mL 70 mL, U nivers (ISOVUE 06-17 [...] n of therapy: 72 hours NaCl 0.9% No 1000mL at 999 Uni vers (NS) bolus 06-17 mL/hr, ity of infusion 00:00: 02:59 1,000 mL, [place] 1,000 mL 00 :00 IV Medical Infusion, Branch ONCE, 1 dose, On [facility] 06/16/22 at 1900, STAT ibuprofen 2021- No 600mg 600 mg, Uni vers (IBU) 06-16 09-15 Oral, ity of tablet 600 23:00: 00:11 ONCE, 1 [place] mg 00 :00 dose, On Medical Wed Branch 06/16/22 at 1800, RUBEN clonazePAM Yes .5mg Take 0.[address] (KLONOPIN) 7-13 mg by [facility] 0.5 MG 13:36: mouth 2 Medical tablet 47 (two) Center times daily as needed for Anxiety. gabapentin 0 Yes 600mg [id number] Take [address] (NEURONTIN) 7-13 [id number] mg by L ukes 600 MG 13:36: [...] Medical tablet 47 times Center daily. pantoprazol Yes 40mg QD Take [address] e 7-13 by mouth [facility]ukes (PROTONIX) 13:36: daily. Medic al 40 MG 47 Center tablet FLUoxetine Yes 40mg QD Take 40 mg C [...] morning on tablet an empty stomach. hydrOXYzine 0 Yes 50mg Take [address] (VISTARIL) 7-13 by mouth [facility]ukes 50 MG 13:36: once at Medical capsule 47 bedtime. Center clonazePAM 0 Yes .5mg Take 0.[address] (KLONOPIN) 7-13 mg by [facility]ukes 0.5 MG 13:36: mouth 2 Medical tablet 47 (two) Center times daily as needed for Anxiety. gabapentin 2021-0 Yes 600mg Q.[id number] Take [address] (NEURONTIN) 7-13 [id number] mg by L ukes 600 MG 13:36: [...] 24 hr 47 daily. Center tablet levothyroxi 2021-0 Yes 50ug Take [address] ne 7-13 mcg by Lukes (SYNTHROID, 13:36: mouth Medic al LEVOTHROID) 47 Every Center 50 MCG morning on tablet an empty stomach. hydrOXYzine 0 Yes 50mg Take [address] (VISTARIL) 7-13 by mouth [facility]ukes 50 MG 13:36: once at Medical capsule 47 bedtime. Center LORazepam 0 Yes .5mg Take 0.[address] (ATIVAN) 6-16 mg by [facility]ukes 0.5 MG 00:00: mouth 2 Medical tablet 00 (two) Center times daily as needed. LORazepam Yes .5mg Take 0.[address] (ATIVAN) 6-16 mg by [facility]ukes 0.5 MG 00:00: mouth 2 Medical tablet 00 (two) Center times daily as needed. zolpidem Yes [facility] ([facility] 10 [facility]: [facility] 00 [place] zolpidem [facility] ([facility] 10 3-23 [facility]: Medical 00 [place] lamoTRIgine Yes [facility] (LaMICtal[facility] 3-15 [facility] 200 MG 00:00: Medical tablet 00 [place] lamoTRIgine Yes [facility] ([facility]tal[facility] 3-15 [facility] 200 MG 00:00: Medical tablet 00 [place] venlafaxine Yes [facility] (EFFEXOR) 3-04 [facility] 75 MG 00:00: Medical tablet 00 [place] venlafaxine Yes [facility] (EFF[facility] 3-04 [facility] 75 MG 00:00: Medical tablet 00 [place] iopamidol 2021- No [id number] 100mL 100 mL, [facility] (ISOVUE -14 10-16 Intravenou ity o f 370-500 mL) 21:47: 21:46 s, ONCE, 1 [place] injection 00 :00 dose, On Medica l 100 mL Fri Branch 10/16/21 at 1600, Routine water for 2020-10 Yes PRN, Univers irrigation 2- Starting ity o f irrigation 17:03: on Tue [place] solution 00 09/22/21 Medical at 1103, Branch Until Discontinu ed, Routine, Intra-op simethicone 2020-10 Yes PRN, Univer s (GAS RELIEF 2- Starting ity of (SIMETHICON 17:03: on Tuea s E)) 40 00 09/22/21 Medical mg/0.6 mL at 1103, Branch drops Until Discontinu ed, Routine, Intra-op water for 2020-10- No PRN, Univers irrigation 2-09-22 Starting ity of irrigation 17:03: 20:23 on [place] solution 00 :39 09/22/21 Medical at 1103, Branch Until Tue09/22/21 at 1423, Routine, Intra-op simethicone 2020-10- No [facility]N, [facility] 11-23 Starting ity of (SIMETHICON 17:03: 20:23 on Tue [place] as E)) 40 00 :39 09/22/21 Medical mg/0.6 mL at 1103, Branch drops Until Tue09/22/21 at 1423, Routine, Intra-op lactated 2020-10- No 1000mL at [address] [facility] rs ringers IV 2- 12-21 mL/hr, ity of infusion 16:45: 16:47 1,000 mL, [place] as 1,000 mL 00 :00 IV Medical Infusion, Branch ONCE, 1 dose, On Tue09/22/21 at 1045, Routine, DSU Pre-op lactated 2020-10- No 1000mL at [address] [facility] rs ringers IV - 12- mL/hr, ity of infusion 16:45: 16:47 1,000 mL, [place] as 1,000 mL 00 :00 IV Medical Infusion, Branch ONCE, 1 dose, On Tue09/22/21 at 1045, Routine, DSU Pre-op FLUoxetine 2020-10 Yes 40mg Take 40 mg U nivers (PROZAC) 40 2-21 by mouth ity of mg capsule 12:23: daily. [address] gabapentin 2020-10 Yes 300mg Take 300 Un henry 300 mg 2-21 mg by ity of capsule 12:23: mouth 3 [place] 30 (three) Medical times Branch daily. Indication s: 1 in the Am and 4 at bed time ziprasidone 2020-10 Yes 60mg Take 60 mg Univers (GEODON) 60 2-21 by mouth ity of mg capsule 12:23: daily. [address] PANTOPRAZOL 2020-10 Yes 40mg Take 40 mg Univers E SODIUM 2-21 by mouth. ity of (PROTONIX 12:23: [place] ORAL) 30 Medical Branch tiZANidine 2020-10 Yes 4mg Take 4 mg Un henry (ZANAFLEX) 2-21 by mouth 2 ity of 4 mg 12:23: (two) [place] capsule 30 times Medical daily. Branch IRON &IRON 2020-10 Yes Take by [facility] ers ASP 2-21 mouth. ity of LINUS-HAROONSagarJAZMYN,M 12:23: Indication [place] IN38 ORAL 30 s: iron Medical injectio Branch once a month DICLOFENAC 2020-10 Yes Take 50 mg U nivers POTASSIUM 2-21 base by ity of (CAMBIA 12:23: mouth. [place] ORAL) [address] [place] [address] Branch propranolol 2020-10 Yes 20mg Take 20 mg Univers 20 mg 2-21 by mouth ity of tablet 12:23: daily. [address] Branch FLUoxetine 2020-10 Yes 40mg Take 40 mg U nivers (PROZAC) 40 2-21 by mouth ity of mg capsule 12:23: daily. [address] gabapentin 2020-10 Yes 300mg Take 300 Un henry 300 mg 2-21 mg by ity of capsule 12:23: mouth 3 [place] 30 (three) Medical times Branch daily. Indication s: 1 in the Am and 4 at bed time ziprasidone 2020-10 Yes 60mg Take 60 mg Univers (GEODON) 60 2-21 by mouth ity of mg capsule 12:23: daily. [address] PANTOPRAZOL 2020-10 Yes 40mg Take 40 mg Univers E SODIUM 2-21 by mouth. ity of (PROTONIX 12:23: [place] ORAL) [address] [place] [id number] tiZANidine 2020-10 Yes 4mg Take 4 mg Un henry (ZANAFLEX) 2-21 by mouth 2 ity of 4 mg 12:23: (two) [place] capsule 30 times Medical daily. Branch IRON &IRON 2020-10 Yes Take by [facility] ers ASP 2-21 mouth. ity of LINUSANGIEJAZMYN,M 12:23: Indication [place] IN38 ORAL 30 s: iron Medical injectio Branch once a month DICLOFENAC 2020-10 Yes Take 50 mg U nivers POTASSIUM 2-21 base by ity of (CAMBIA 12:23: mouth. [place] ORAL) [address] [place] [address] Branch propranolol 2020-10 Yes 20mg Take 20 mg Univers 20 mg 2-21 by mouth ity of tablet 12:23: daily. [address] FLUoxetine 2020-10 Yes 40mg Take 40 mg U nivers (PROZAC) 40 2-21 by mouth ity of mg capsule 12:23: daily. [address] gabapentin 2020-10 Yes 300mg Take 300 Un henry 300 mg 2-21 mg by ity of capsule 12:23: mouth 3 [place] 30 (three) Medical times [place] daily. Indication s: 1 in the Am and 4 at bed time ziprasidone 2020-10 Yes 60mg Take 60 mg Univers (GEODON) 60 2-21 by mouth ity of mg capsule 12:23: daily. [address] PANTOPRAZOL 2020-10 Yes 40mg Take 40 mg Univers E SODIUM 2-21 by mouth. ity of (PROTONIX 12:23: [place] ORAL) [address] [place] [address] Branch tiZANidine 2020-10 Yes 4mg Take 4 mg Un henry (ZANAFLEX) 2-21 by mouth 2 ity of 4 mg 12:23: (two) [place] capsule 30 times Medical daily. Branch IRON &IRON 2020-10 Yes Take by Univ ers ASP 2-21 mouth. ity of GLY-FA-MV,M 12:23: Indication [place] IN ORAL 30 s: iron Medical injectio Branch once a month DICLOFENAC 2020-10 Yes Take 50 mg U nivers POTASSIUM 2-21 base by ity of (CAMBIA 12:23: mouth. [address] propranolol 2020-10 Yes 20mg Take 20 mg Univers 20 mg 2-21 by mouth ity of tablet 12:23: daily. [address] FLUoxetine 2020-10 Yes 40mg Take 40 mg U nivers (PROZAC) 40 2-21 by mouth ity of mg capsule 12:23: daily. [address] gabapentin 2020-10 Yes 300mg Take 300 Un henry 300 mg 2-21 mg by ity of capsule 12:23: mouth 3 [place] 30 (three) Medical times [place] daily. Indication s: 1 in the Am and 4 at bed time ziprasidone 2020-10 Yes 60mg Take 60 mg Univers (GEODON) 60 2-21 by mouth ity of mg capsule 12:23: daily. [address] PANTOPRAZOL 2020-10 Yes 40mg Take 40 mg Univers E SODIUM 2-21 by mouth. ity of (PROTONIX 12:23: [place] ORAL) [address] [place] [address] Branch tiZANidine 2020-10 Yes 4mg Take 4 mg Un henry (ZANAFLEX) 2-21 by mouth 2 ity of 4 mg 12:23: (two) [place] capsule 30 times Medical daily. Branch IRON &IRON 2020-10 Yes Take by [facility] ers ASP 2-21 mouth. ity of LINUS-MARCUSJAZMYN,M 12:23: Indication [place] IN38 ORAL 30 s: iron Medical injectio Branch once a month DICLOFENAC 2020-10 Yes Take 50 mg U nivers POTASSIUM 2-21 base by ity of (CAMBIA 12:23: mouth. [place] ORAL) [address] [place] [id number] propranolol 2020-10 Yes 20mg Take 20 mg Univers 20 mg 2-21 by mouth ity of tablet 12:23: daily. [address] FLUoxetine 2020-10 Yes 40mg Take 40 mg U nivers (PROZAC) 40 2-21 by mouth ity of mg capsule 12:23: daily. [address] gabapentin 2020-10 Yes 300mg Take 300 Un henry 300 mg 2-21 mg by ity of capsule 12:23: mouth 3 [place] 30 (three) Medical times Branch daily. Indication s: 1 in the Am and 4 at bed time ziprasidone 2020-10 Yes 60mg Take 60 mg Univers (GEODON) 60 2-21 by mouth ity of mg capsule 12:23: daily. [address] PANTOPRAZOL 2020-10 Yes 40mg Take 40 mg Univers E SODIUM 2-21 by mouth. ity of (PROTONIX 12:23: [place] ORAL) [address] [place] [id number] tiZANidine 2020-10 Yes 4mg Take 4 mg Un henry (ZANAFLEX) 2-21 by mouth 2 ity of 4 mg 12:23: (two) [place] capsule 30 times Medical daily. Branch IRON &IRON 2020-10 Yes Take by [facility] ers ASP 2-21 mouth. ity of SAKSHIJAZMYN,M 12:23: Indication [place] IN38 ORAL 30 s: iron Medical injectio Branch once a month DICLOFENAC 2020-10 Yes Take 50 mg U nivers POTASSIUM 2-21 base by ity of (CAMBIA 12:23: mouth. [place] ORAL) [address] [place] [id number] propranolol 2020-10 Yes 20mg Take 20 mg Univers 20 mg 2-21 by mouth ity of tablet 12:23: daily. [address] water for 2020-10- No PRN, Univers irrigation -18 18 Starting ity of irrigation 18:20: 21:01 on [...] Intra-op lactated 2020-10- No 1000mL at [facility] 10-20 11-18 mL/hr, ity of infusion 18:00: 17:59 1,000 mL, Faust[place] as 1,000 mL 00 :00 IV Medical Infusion, Branch ONCE, 1 dose, On [place] 08/20/21 at 1200, Routine, DSU Pre-op lactated 2020-10- No 1000mL at 42 Unive rs ringers IV 10-2018 mL/hr, ity of infusion 18:00: 17:59 1,000 mL, [place] as 1,000 mL 00 :00 IV Medical Infusion, Branch ONCE, 1 dose, On [place] 08/20/21 at 1200, Routine, DSU Pre-op FLUoxetine 2020-10 Yes 40mg Take 40 mg U nivers (PROZAC) 40 1-18 by mouth ity of mg capsule 13:01: daily. [address] gabapentin 2020-10 Yes 300mg Take 300 Un henry 300 mg 1-18 mg by ity of capsule 13:01: mouth 3 [place] [address] (three) Medical times Branch daily. Indication s: 1 in the Am and 4 at bed time ziprasidone 2020-10 Yes 60mg Take 60 mg Univers (GEODON) 60 1-18 by mouth ity of mg capsule 13:01: daily. [address] PANTOPRAZOL 2020-10 Yes 40mg Take 40 mg Univers E SODIUM 1-18 by mouth. ity of (PROTONIX 13:01: [place] ORAL) Medical Branch tiZANidine 2020-10 Yes 4mg Take 4 mg Un henry (ZANAFLEX) 1-18 by mouth 2 ity of 4 mg 13:01: (two) [place] capsule 23 times Medical daily. Branch IRON &IRON 2020-10 Yes Take by [facility] ers ASP 1-18 mouth. ity of CONSTANTINOM 13:01: Indication [place] IN38 ORAL 23 s: iron Medical injectio Branch once a month DICLOFENAC 2020-10 Yes Take 50 mg U nivers POTASSIUM 1-18 base by ity of (CAMBIA 13:01: mouth. [place] ORAL) [address] [place] [address] propranolol 2020-10 Yes 20mg Take 20 mg Univers 20 mg 1-18 by mouth ity of tablet 13:01: daily. [address] Branch FLUoxetine 2020-10 Yes 40mg Take 40 mg U nivers (PROZAC) 40 1-18 by mouth ity of mg capsule 13:01: daily. [address] gabapentin 2020-10 Yes 300mg Take 300 Un henry 300 mg 1-18 mg by ity of capsule 13:01: mouth 3 [place] [address] (three) Medical times Branch daily. Indication s: 1 in the Am and 4 at bed time ziprasidone 2020-10 Yes 60mg Take 60 mg Univers (GEODON) 60 1-18 by mouth ity of mg capsule 13:01: daily. [address] PANTOPRAZOL 2020-10 Yes 40mg Take 40 mg Univers E SODIUM 1-18 by mouth. ity of (PROTONIX 13:01: [place] ORAL) [address] [place] [address] tiZANidine 2020-10 Yes 4mg Take 4 mg Un henry (ZANAFLEX) 1-18 by mouth 2 ity of 4 mg 13:01: (two) [place] capsule 23 times Medical daily. Branch IRON &IRON 2020-10 Yes Take by [facility] ers ASP 1-18 mouth. ity of Cristofer MEEKS 13:01: Indication [place] IN38 ORAL 23 s: iron Medical injectio Branch once a month DICLOFENAC 2020-10 Yes Take 50 mg U nivers POTASSIUM 1-18 base by ity of (CAMBIA 13:01: mouth. [facility] [place] [facility]) Medical Branch propranolol 2020-10 Yes 20mg Take 20 mg Univers 20 mg 1-18 by mouth ity of tablet 13:01: daily. [address] FLUoxetine 2020-10 Yes 40mg Take 40 mg U nivers (PROZAC) 40 1-18 by mouth ity of mg capsule 13:01: daily. [place] 23 Medical Branch gabapentin 2020-10 Yes 300mg Take 300 Un henry 300 mg 1-18 mg by ity of capsule 13:01: mouth 3 [place] [address] (three) Medical times Branch daily. Indication s: 1 in the Am and 4 at bed time ziprasidone 2020-10 Yes 60mg Take 60 mg Univers (GEODON) 60 1-18 by mouth ity of mg capsule 13:01: daily. [place] [address] Medical Branch PANTOPRAZOL 2020-10 Yes 40mg Take 40 mg Univers E SODIUM 1-18 by mouth. ity of (PROTONIX 13:01: [place] ORAL) 23 Medical Branch tiZANidine 2020-10 Yes [...] base by ity of (CAMBIA 13:01: mouth. [place] ORAL) Medical Branch propranolol 2020-10 Yes 20mg Take 20 mg Univers 20 mg 1-18 by mouth ity of tablet 13:01: daily. [address] Branch Sulfamethox Sulfamethox 2020- No 1{table [...] 50 MG 00:00: eded} 00 traMADol traMADol 2019-10 No 1{table traMADol HCl 50 MG HCl 50 MG 0-16 t_as_ne HCl 50 MG 00:00: eded} 00 traMADol traMADol 2019-10 No 1{table traMADol HCl 50 MG HCl 50 MG 0-16 t_as_ne HCl 50 MG 00:00: eded} 00 traMADol traMADol 2019-10 No 1{table traMADol [...] [place] 00 daily. Medical Branch amLODIPine 2017-0 2021- No 5mg Take 1 Univ ers 5 mg tablet 06-10 tablet by it y of 00:00: 00:00 mouth [place] 00 :00 daily. Medical Branch tiZANidine tiZANidine No tiZANidine HCl 4 MG [...] MG t_in_ XL 150 MG e_morni ng} Levothyroxi Levothyroxi [...] ne-DM 6.25-15 6.25-15 6.25-15 MG/5ML MG/5ML MG/5ML [place] Pantoprazol Pantoprazol No Pantoprazo e Sodium 40 [...] 25 MG t} e HCl 25 MG Gabapentin Gabapentin No Gabapentin 600 MG 600 MG 600 MG Propranolol Propranolol No 1{table BID Propranolo HCl 20 MG HCl 20 MG t_on_an l HCl 20 _empty_ MG stomach } Wellbutrin Wellbutrin No 1{table QD Wellbutrin XL 150 MG XL 150 MG t_in_th XL 150 MG e_morni ng} Promethazin Promethazin [...] HCl 4 MG t} HCl 4 MG [place] Effexor Effexor No Effexor Geodon 60 Geodon [...] MG 200 MG t} e 200 MG [place] Propranolol Propranolol No 1{table BID Propranolo HCl [...] MG 200 MG t} e 200 MG [place] Propranolol Propranolol No 1{table BID Propranolo HCl [...] MG le_with e HCl 60 _food} MG [place] lamoTRIgine lamoTRIgine No 1{table QD lamoTRIgin 200 [...] MG le_with e HCl 60 _food} MG [place] lamoTRIgine lamoTRIgine No 1{table QD lamoTRIgin 200 [...] MG le_with e HCl 60 _food} MG [place] lamoTRIgine lamoTRIgine No 1{table QD lamoTRIgin 200 [...] MG le_with e HCl 60 _food} MG [place] lamoTRIgine lamoTRIgine No 1{table QD lamoTRIgin 200 [...] HCl 10 MG l HCl 10 MG [place] Iron Iron No Iron Supplement Supplement Supplement [...] HCl 10 MG l HCl 10 MG [place] LORazepam LORazepam No 1{table QD LORazepam 0.5 MG 0.5 MG t_at_be 0.5 MG dtime_a s_neede d} hydrOXYzine hydrOXYzine No 1{table hydrOXYzin HCl 50 MG HCl 50 MG t_as_ne e HCl 50 eded} MG Propranolol Propranolol No 1{table BID Propranolo HCl 20 MG HCl 20 MG t_on_an l HCl 20 _empty_ MG stomach } Gabapentin Gabapentin No Gabapentin 600 MG 600 MG 600 MG [place] Pantoprazol Pantoprazol No 1{table QD Pantoprazo e [...] MG t_with_ e HCl 75 food} MG [place] Ziprasidone Ziprasidone No 2{capsu BID Ziprasidon HCl [...] MG t_with_ e HCl 75 food} MG [place] Ziprasidone Ziprasidone No 2{capsu BID Ziprasidon HCl [...] MG t_with_ e HCl 75 food} MG [place] Ziprasidone Ziprasidone No 2{capsu BID Ziprasidon HCl [...] HCl 20 MG l HCl 20 MG [place] Gabapentin Gabapentin No Gabapentin 600 MG 600 [...] Sodium 50 MCG 50 MCG 50 MCG [place] Pantoprazol Pantoprazol No Pantoprazo e Sodium 40 [...] Gabapentin 600 MG 600 MG 600 MG [place] Amitiza 24 Amitiza 24 No 1{capsu BID [...] t} le Sodium MG MG 40 MG [place] Vitamin D3 Vitamin D3 No 1{capsu QD [...] t} le Sodium MG MG 40 MG [place] Vitamin D3 Vitamin D3 No 1{capsu QD [...] Sodium 50 MCG 50 MCG 50 MCG [place] Vitamin D3 Vitamin D3 No 1{capsu QD [...] HCl 4 MG n HCl 4 MG [place] Promethazin Promethazin No QID Promethazi e-DM e-DM ne-DM 6.25-15 6.25-15 6.25-15 MG/5ML MG/5ML MG/5ML [place] Geodon 60 Geodon 60 No 1{capsu BID [...] MG MG 40 MG Amitiza Amitiza Yes Davin 1 capsule Co mmon [place] with food [facility] Pantoprazol Pantoprazol Yes Davin 1 tablet Common e Sodium e Sodium Platt Spirit [facility] Propranolol Propranolol Yes Davin 1 tablet Common HCl HCl Platt on an Spirit empty - [facility] stomach [facility] Vitamin D3 Vitamin D3 Yes Davin 1 capsule Common Platt Spirit [facility] Levothyroxi Levothyroxi Yes Davin 1 tablet Common ne Sodium ne Sodium [place]att on an Spi rit empty - CHI stomach in [facility] Promethazin Promethazin Yes Davin 5 ml as Common e-DM e-DM Platt needed Spirit Nausea/Vom - [facility] iting [facility] Clonazepam Clonazepam Yes Davin 1 tablet Common [place]att at bedtime Spirit [facility] Geodon Geodon Yes Davin 1 capsule Comm on [place]att with food Spirit [facility] baclofen baclofen Yes Davin 1 tab as C ommon Platt needed for Spirit pain - [facility] Iron Iron Yes Davin not Common Supplement Supplement Platt defined [facility] Ziprasidone Ziprasidone Yes Davin 1 capsule Common HCl HCl Platt with food [facility] Tizanidine Tizanidine Yes Davin 1 tablet Common HCl HCl Platt [facility] HydrOXYzine HydrOXYzine Yes Davin 1 tablet Common HCl HCl Platt [facility] Gabapentin Gabapentin Yes Davin 1 tablet Common Platt am and 2 Spirit tabs [facility] Gabapentin Gabapentin Yes Davin TAKE ONE Common [place]att TABLET BY [facility] MOUTH [facility] EVERY St MORN[facility] AND THEN Medical TAKE TWO Center TABLETS BY MOUTH EVERY EVENING Wellbutrin Wellbutrin Yes Davin 1 tablet Common XL XL [place]att in the [facility] Fluoxetine Fluoxetine Yes Davin 1 capsule Common HCl HCl Platt [facility] Pantoprazol Pantoprazol No Pantoprazo e [...] HCl 10 MG l HCl 10 MG [place] FLUoxetine FLUoxetine No 1{capsu QD FLUoxetine HCl [...] ne-DM 6.25-15 6.25-15 6.25-15 MG/5ML MG/5ML MG/5ML [place] lamoTRIgine lamoTRIgine No 1{table QD lamoTRIgin 100 [...] HCl 10 MG Effexor Effexor No Effexor [place] Pantoprazol Pantoprazol No Pantoprazo e Sodium 40 [...] MG MG dtime_a 10 MG s_neede d} Immunizations Ordered Filled Immunization Date Status Comments Sourc e Immunization Name Name Diogenes COVID-19 Moderna COVID-19 2022-11-20 Completed [facility] - Vaccine, Bivalent Vaccine, Bivalent 08:50:00 [facility] Moderna COVID-19 Moderna COVID-19 2021-02-14 Completed [facility] - Vaccine Vaccine 09:03:00 [facility] Moderna COVID-19 Moderna COVID-19 2021-02-14 Completed [facility] - Vaccine Vaccine 09:03:00 [facility] Moderna COVID-19 Moderna COVID-19 2021-02-14 Completed [facility] - Vaccine Vaccine 09:03:00 [facility] Moderna COVID-19 Moderna COVID-19 2021-02-14 Completed [facility] - Vaccine Vaccine 09:03:00 [facility] Moderna COVID-19 Moderna COVID-19 2021-02-14 Completed [facility] - Vaccine Vaccine 09:03:00 [facility] Moderna COVID-19 Moderna COVID-19 2021-02-14 Completed [facility] - Vaccine Vaccine 09:03:00 [facility] Moderna COVID-19 Moderna COVID-19 2021-02-14 Completed [facility] - Vaccine Vaccine 09:03:00 [facility] Moderna COVID-19 Moderna COVID-19 2021-02-14 Completed [facility] - Vaccine Vaccine 09:03:00 [facility] Moderna COVID-19 Moderna COVID-19 2021-02-14 Completed [facility] - Vaccine Vaccine 09:03:00 [facility] Moderna COVID-19 Moderna COVID-19 2021-02-14 Completed [facility] - Vaccine Vaccine 09:03:00 [facility] Moderna COVID-19 Moderna COVID-19 2021-02-14 Completed [facility] - Vaccine Vaccine 09:03:00 [facility] Moderna COVID-19 Moderna COVID-19 2021-02-14 Completed [facility] - Vaccine Vaccine 09:03:00 [facility] Moderna COVID-19 Moderna COVID-19 2021-02-14 Completed [facility] - Vaccine Vaccine 09:03:00 [facility] Moderna COVID-19 Moderna COVID-19 2021-02-14 Completed [facility] - Vaccine Vaccine 09:03:00 [facility] Moderna COVID-19 Moderna COVID-19 2021-02-14 Completed [facility] - Vaccine Vaccine 09:03:00 [facility] Moderna COVID-19 Moderna COVID-19 2021-02-14 Completed [facility] - Vaccine Vaccine 09:03:00 [facility] Moderna COVID-19 Moderna COVID-19 2021-02-14 Completed [facility] - Vaccine Vaccine 09:03:00 [facility] Moderna COVID-19 Moderna COVID-19 2021-02-14 Completed [facility] - Vaccine Vaccine 09:03:00 [facility] Moderna COVID-19 Moderna COVID-19 2021-02-14 Completed [facility] - Vaccine Vaccine 09:03:00 [facility] Moderna COVID-19 Moderna COVID-19 2021-02-14 Completed [facility] - Vaccine Vaccine 09:03:00 [facility] Moderna COVID-19 Moderna COVID-19 2021-02-14 Completed [facility] - Vaccine Vaccine 09:03:00 [facility] Moderna COVID-19 Moderna COVID-19 2021-02-14 Completed [facility] - Vaccine Vaccine 09:03:00 [facility] Moderna COVID-19 Moderna COVID-19 2021-02-14 Completed [facility] - Vaccine Vaccine 09:03:00 [facility] Moderna COVID-19 Moderna COVID-19 2021-02-14 Completed [facility] - Vaccine Vaccine 09:03:00 [facility] Moderna COVID-19 Moderna COVID-19 2021-02-14 Completed [facility] - Vaccine Vaccine 09:03:00 [facility] SARS-COV-2 COVID-19 2021-02-10 Completed Unive rsity of MODERNA VACCINE 00:00:00 [facility] SARS-COV-2 COVID-19 2021-02-10 Completed Unive rsity of MODERNA VACCINE 00:00:00 [facility] SARS-COV-2 COVID-19 2021-02-10 Completed Unive rsity of MODERNA VACCINE 00:00:00 [facility] SARS-COV-2 COVID-19 2021-02-10 Completed Unive rsity of MODERNA VACCINE 00:00:00 [place] [facility] ical Branch SARS-COV-2 COVID-19 2021-02-10 Completed Unive rsity of MODERNA 12+ YRS 00:00:00 [place] [facility] ical VACCINE Branch SARS-COV-2 COVID-19 2021-02-10 Completed Unive rsity of MODERNA 12+ YRS 00:00:00 [place] [facility] ical VACCINE Branch SARS-COV-2 COVID-19 2021-02-10 Completed Unive rsity of MODERNA 12+ YRS 00:00:00 [place] [facility] ical VACCINE Branch SARS-COV-2 COVID-19 2021-02-10 Completed Unive rsity of MODERNA VACCINE 00:00:00 [facility] ical Branch SARS-COV-2 COVID-19 2021-02-10 Completed Unive rsity of MODERNA 12+ YRS 00:00:00 [facility] ical VACCINE Branch SARS-COV-2 COVID-19 2021-02-10 Completed Unive rsity of MODERNA 12+ YRS 00:00:00 [facility] ical VACCINE Branch SARS-COV-2 COVID-19 2021-02-10 Completed Unive rsity of MODERNA 12+ YRS 00:00:00 [place] [facility] ical VACCINE Branch SARS-COV-2 COVID-19 2021-02-10 Completed Unive rsity of MODERNA VACCINE 00:00:00 [facility] ical Branch SARS-COV-2 COVID-19 2021-02-10 Completed Unive rsity of MODERNA VACCINE 00:00:00 [facility] Moderna COVID-19 Moderna COVID-19 2021-01-13 Completed [facility] - Vaccine Vaccine 16:57:00 [facility] Moderna COVID-19 Moderna COVID-19 2021-01-13 Completed [facility] - Vaccine Vaccine 16:57:00 [facility] Moderna COVID-19 Moderna COVID-19 2021-01-13 Completed [facility] - Vaccine Vaccine 16:57:00 [facility] Moderna COVID-19 Moderna COVID-19 2021-01-13 Completed [facility] - Vaccine Vaccine 16:57:00 [facility] Moderna COVID-19 Moderna COVID-19 2021-01-13 Completed [facility] - Vaccine Vaccine 16:57:00 [facility] Moderna COVID-19 Moderna COVID-19 2021-01-13 Completed [facility] - Vaccine Vaccine 16:57:00 [facility] Moderna COVID-19 Moderna COVID-19 2021-01-13 Completed [facility] - Vaccine Vaccine 16:57:00 [facility] Moderna COVID-19 Moderna COVID-19 2021-01-13 Completed [facility] - Vaccine Vaccine 16:57:00 [facility] Moderna COVID-19 Moderna COVID-19 2021-01-13 Completed [facility] - Vaccine Vaccine 16:57:00 [facility] Moderna COVID-19 Moderna COVID-19 2021-01-13 Completed [facility] Vaccine 16:57:00 [facility] Moderna COVID-19 Moderna COVID-19 2021-01-13 Completed [facility] Vaccine Vaccine 16:57:00 [facility] Moderna COVID-19 Moderna COVID-19 2021-01-13 Completed [facility] Vaccine Vaccine 16:57:00 [facility] Moderna COVID-19 Moderna COVID-19 2021-01-13 Completed [facility] Vaccine Vaccine 16:57:00 [facility] Moderna COVID-19 Moderna COVID-19 2021-01-13 Completed [facility] Vaccine Vaccine 16:57:00 [facility] Moderna COVID-19 Moderna COVID-19 2021-01-13 Completed [facility] Vaccine Vaccine 16:57:00 [facility] Moderna COVID-19 Moderna COVID-19 2021-01-13 Completed [facility] Vaccine Vaccine 16:57:00 [facility] Moderna COVID-19 Moderna COVID-19 2021-01-13 Completed [facility] Vaccine Vaccine 16:57:00 [facility] Moderna COVID-19 Moderna COVID-19 2021-01-13 Completed [facility] Vaccine Vaccine 16:57:00 [facility] Moderna COVID-19 Moderna COVID-19 2021-01-13 Completed [facility] Vaccine Vaccine 16:57:00 [facility] Moderna COVID-19 Moderna COVID-19 2021-01-13 Completed [facility] Vaccine Vaccine 16:57:00 [facility] Moderna COVID-19 Moderna COVID-19 2021-01-13 Completed [facility] Vaccine Vaccine 16:57:00 [facility] Moderna COVID-19 Moderna COVID-19 2021-01-13 Completed [facility] Vaccine Vaccine 16:57:00 [facility] Moderna COVID-19 Moderna COVID-19 2021-01-13 Completed [facility] Vaccine Vaccine 16:57:00 [facility] Moderna COVID-19 Moderna COVID-19 2021-01-13 Completed [facility] Vaccine Vaccine 16:57:00 [facility] Moderna COVID-19 Moderna COVID-19 2021-01-13 Completed [facility] Vaccine Vaccine 16:57:00 [facility] SARS-COV-2 COVID-19 2021-01-13 Completed Unive rsity of MODERNA VACCINE 00:00:00 [facility] SARS-COV-2 COVID-19 2021-01-13 Completed Unive rsity of [facility]ERNA VACCINE 00:00:00 [facility] SARS-COV-2 COVID-19 2021-01-13 Completed Unive rsity of MODERNA VACCINE 00:00:00 [facility] ical Branch SARS-COV-2 COVID-19 2021-01-13 Completed Unive rsity of MODERNA VACCINE 00:00:00 [facility] ical Branch SARS-COV-2 COVID-19 2021-01-13 Completed Unive rsity of MODERNA 12+ YRS 00:00:00 [facility] ical VACCINE Branch SARS-COV-2 COVID-19 2021-01-13 Completed Unive rsity of MODERNA 12+ YRS 00:00:00 [facility] VACCINE Branch SARS-COV-2 COVID-19 2021-01-13 Completed Unive [...] Completed Unive rsity of MODERNA VACCINE 00:00:00 [facility] ical Branch SARS-COV-2 COVID-19 2021-01-13 Completed Unive rsity of MODERNA VACCINE 00:00:00 [facility] Vital Signs Vital Name Observation Time Observation Value Comments Source height 2022-09-22 11:10:00 61.5 [in_i] [facility] weight 2022-09-22 11:10:00 143 [lb_av] [facility] temperature 2022-09-22 11:10:00 98 [degF] [facility] bmi 2022-09-22 11:10:00 26.58 [facility] blood pressure 2022-09-22 11:10:00 128 mm[Hg] [facility] systolic [facility] blood pressure 2022-09-22 11:10:00 76 mm[Hg] [facility] diastolic [facility] height 2022-09-06 14:30:00 61.5 [in_i] [facility] weight 2022-09-06 14:30:00 145 [lb_av] [facility] temperature 2022-09-06 14:30:00 97.4 [degF] [facility] bmi 2022-09-06 14:30:00 26.95 kg/m2 [facility] - [facility] blood pressure 2022-09-06 14:30:00 125 mm[Hg] [facility] systolic [facility] blood pressure 2022-09-06 14:30:00 84 mm[Hg] [facility] diastolic [facility] height 2022-07-29 14:30:00 61.5 [in_i] [facility] weight 2022-07-29 14:30:00 145 [lb_av] [facility] temperature 2022-07-29 14:30:00 97.0 [degF] [facility] bmi 2022-07-29 14:30:00 26.95 kg/m2 [facility] blood pressure 2022-07-29 14:30:00 128 mm[Hg] [facility] systolic [facility] blood pressure 2022-07-29 14:30:00 82 mm[Hg] [facility] diastolic [facility] Systolic blood 2022-07-26 20:00:00 161 mm[Hg] Univer sity of [facility] Diastolic blood 2022-07-26 20:00:00 94 mm[Hg] Unive [facility]ity of [facility] Heart rate 2022-07-26 20:00:00 78 /min [facility] Oxygen saturation in 2022-07-26 20:00:00 100 /min [facility] Arterial blood by [facility] Pulse oximetry Branch Respiratory rate 2022-07-26 19:40:00 16 /min Univ [facility] Body temperature 2022-07-26 16:42:00 36.89 Sarah [facility] height 2022-07-26 16:42:00 157.5 cm [facility] Body weight 2022-07-26 16:42:00 72.576 kg [facility] BMI 2022-07-26 16:42:00 29.26 kg/m2 [facility] height 2022-07-09 09:30:00 61.5 [in_i] Common [facility] weight 2022-07-09 09:30:00 145 [lb_av] [facility] temperature 2022-07-09 09:30:00 97.1 [degF] [facility] bmi 2022-07-09 09:30:00 26.95 kg/m2 [facility] blood pressure 2022-07-09 09:30:00 100 mm[Hg] [facility] blood pressure 2022-07-09 09:30:00 68 mm[Hg] Common [facility] - diastolic [facility] height 2022-06-30 15:00:00 61.5 [in_i] [facility] weight 2022-06-30 15:00:00 142 [lb_av] [facility] temperature 2022-06-30 15:00:00 97.9 [degF] [facility] bmi 2022-06-30 15:00:00 26.39 kg/m2 [facility] oximetry 2022-06-30 15:00:00 98 % [facility] respiratory rate 2022-06-30 15:00:00 16 /min Comm on [facility] blood pressure 2022-06-30 15:00:00 145 mm[Hg] Common [facility] - systolic [facility] blood pressure 2022-06-30 15:00:00 70 mm[Hg] Common [facility] - diastolic [facility] Respiratory rate 2022-06-21 12:47:00 16 /min [facility] in 2022-06-21 12:47:00 94 /min [facility] Arterial blood by [facility] Pulse oximetry Branch Systolic blood 2022-06-21 12:43:00 102 mm[Hg] Univer sity of pressure [facility] Diastolic blood 2022-06-21 12:43:00 59 mm[Hg] Unive rsity of pressure [facility] Heart rate 2022-06-21 12:43:00 70 /min [facility] Body temperature 2022-06-21 12:43:00 35.72 Sarah Univ ersity [facility] Body weight 2022-06-21 08:14:00 72.666 kg [facility] BMI 2022-06-21 08:14:00 29.30 kg/m2 [facility] Body height 2022-06-17 03:46:00 157.5 cm [facility] height 2022-06-09 13:00:00 61.5 [in_i] [facility] weight 2022-06-09 13:00:00 148 [lb_av] [facility] temperature 2022-06-09 13:00:00 98.7 [degF] [facility] bmi 2022-06-09 13:00:00 27.51 kg/m2 [facility] oximetry 2022-06-09 13:00:00 96 % [facility] respiratory rate 2022-06-09 13:00:00 16 /min [facility] on [facility] blood pressure 2022-06-09 13:00:00 138 mm[Hg] Common [facility] - systolic [facility] blood pressure 2022-06-09 13:00:00 80 mm[Hg] Common [facility] - diastolic [facility] height 2022-06-09 13:00:00 62 [in_i] Common [facility] weight 2022-06-09 13:00:00 148 [lb_av] [facility] temperature 2022-06-09 13:00:00 98.7 [degF] [facility] bmi 2022-06-09 13:00:00 27.07 kg/m2 [facility] oximetry 2022-06-09 13:00:00 96 % [facility] respiratory rate 2022-06-09 13:00:00 16 /min Comm on [facility] blood pressure 2022-06-09 13:00:00 138 mm[Hg] [facility] systolic [facility] blood pressure 2022-06-09 13:00:00 80 mm[Hg] Common [facility] - diastolic [facility] WEIGHT 2022-04-14 13:36:00 65.454 kg WEIGHT 2022-04-14 13:36:00 65.454 kg height 2022-02-09 13:10:00 62 [in_i] [facility] weight 2022-02-09 13:10:00 148.8 [lb_av] [facility] temperature 2022-02-09 13:10:00 96.6 [degF] [facility] bmi 2022-02-09 13:10:00 27.21 kg/m2 [facility] oximetry 2022-02-09 13:10:00 100 % [facility] respiratory rate 2022-02-09 13:10:00 18 /min [facility] on [facility] blood pressure 2022-02-09 13:10:00 131 mm[Hg] Common [facility] - systolic [facility] blood pressure 2022-02-09 13:10:00 69 mm[Hg] Common [facility] - diastolic [facility] HEIGHT 2022-01-04 10:22:00 157.5 cm WEIGHT 2022-01-04 10:22:00 67.087 kg height 2021-10-12 14:10:00 62 [in_i] [facility] weight 2021-10-12 14:10:00 155 [lb_av] [facility] temperature 2021-10-12 14:10:00 98 [degF] [facility] bmi 2021-10-12 14:10:00 28.35 kg/m2 [facility] blood pressure 2021-10-12 14:10:00 121 mm[Hg] Common [facility] - systolic [facility] blood pressure 2021-10-12 14:10:00 76 mm[Hg] [facility] - diastolic [facility] Heart rate 2021-09-22 18:07:00 78 /min [facility] Systolic blood 2021-09-22 18:06:00 117 mm[Hg] Univer sity of pressure [facility] Diastolic blood 2021-09-22 18:06:00 65 mm[Hg] Unive rsity of pressure [facility] Oxygen saturation in 2021-09-22 18:06:00 100 /min [facility] of Arterial blood by [facility] carlos Pulse oximetry Branch Respiratory rate 2021-09-22 18:05:00 21 /min Univ ersity [facility] Body temperature 2021-09-22 17:42:00 36.5 Sarah [facility] Body height 2021-09-14 14:52:00 157.5 cm [facility] Body weight 2021-09-14 14:52:00 70.3 kg [facility] BMI 2021-09-14 14:52:00 28.34 kg/m2 [facility] Heart rate 2021-09-22 18:01:00 62 /min [facility] Respiratory rate 2021-09-22 18:01:00 30 /min [facility] Oxygen saturation in 2021-09-22 18:01:00 100 /min [facility] Arterial blood by [facility] Pulse oximetry Branch Systolic blood 2021-09-22 17:56:00 105 mm[Hg] Univer [facility] Diastolic blood 2021-09-22 17:56:00 62 mm[Hg] Unive rsity of pressure [facility] Body temperature 2021-09-22 17:42:00 36.5 Sarah [facility] Body height 2021-09-14 14:52:00 157.5 cm [facility] Body weight 2021-09-14 14:52:00 70.3 kg [facility] BMI 2021-09-14 14:52:00 28.34 kg/m2 [facility] Heart rate 2021-08-20 18:49:00 62 /min [facility] Oxygen saturation in 2021-08-20 18:49:00 100 /min [facility] Arterial blood by [facility] Pulse oximetry Branch Respiratory rate 2021-08-20 18:47:00 19 /min Univ ersity of [facility] Systolic blood 2021-08-20 18:45:00 127 mm[Hg] Univer sity of pressure [facility] Diastolic blood 2021-08-20 18:45:00 74 mm[Hg] Unive rsity of pressure [facility] Body temperature 2021-08-20 18:33:00 36.39 Sarah [facility] [place] [facility] [place] Body height 2021-08-20 17:49:00 157.5 cm [facility] Body weight 2021-08-20 17:49:00 70.308 kg [facility] [place] BMI 2021-08-20 17:49:00 28.35 kg/m2 [facility] Heart rate 2021-08-20 18:49:00 62 /min [facility] Oxygen saturation in 2021-08-20 18:49:00 100 /min [facility] Arterial blood by [facility] Pulse oximetry Branch Respiratory rate 2021-08-20 18:47:00 19 /min Univ ersity of [facility] Systolic blood 2021-08-20 18:45:00 127 mm[Hg] Univer [facility]ity of [facility] Diastolic blood 2021-08-20 18:45:00 74 mm[Hg] Unive rsity of pressure [facility] Body temperature 2021-08-20 18:33:00 36.39 Sarah Univ ersity of [facility] Body height 2021-08-20 17:49:00 157.5 cm [facility] Body weight 2021-08-20 17:49:00 70.308 kg [facility] BMI 2021-08-20 17:49:00 28.35 kg/m2 [facility] of [facility] Systolic blood 2022-04-14 13:36:00 118 mm[Hg] [facility] pressure [facility] Diastolic blood 2022-04-14 13:36:00 77 mm[Hg] [facility] pressure [facility] Center Heart rate 2022-04-14 13:36:00 69 /min [facility] Body temperature 2022-04-14 13:36:00 36.67 Sarah [facility] Body weight 2022-04-14 13:36:00 65.454 kg [facility] BMI 2022-04-14 13:36:00 26.39 kg/m2 [facility] Procedures Procedure Date / Time Performing Source Performed Clinician MR LUMBAR SPINE WO CONTRAST 2022-09-23 Shan Santana Uni versity of 21:10:02 S [facility] ASSIGNMENT OF BENEFITS 2022-09-23 [facility] 20:12:40 Unassigned, No [facility] COMP. METABOLIC PANEL (17820) 2022-07-26 Nilay Lennon iversity of 18:57:00 [facility] CBC WITH DIFF 2022-07-26 [facility] of 18:57:00 [facility] URINALYSIS 2022-07-26 [facility] of 18:57:00 [facility] CT ABDOMEN PELVIS WO CONTRAST 2022-07-26 Nilay Lennon iversity of 18:03:32 [facility] CONSENT/REFUSAL FOR DIAGNOSIS AND 2022-07-26 [facility] of TREATMENT 16:32:59 Unassigned, No [facility] HEPATIC FUNCTION PANEL ([id number]) 2022-06-21 Tika Cummings niversity of (ALB,T.PRO,BILI 11:05:00 [facility],BU/BC,ALT,AST,ALK PHOS) [place] BASIC METABOLIC PANEL (NA, K, CL, 2022-06-21 Emiliano Tika [facility] of CO2, GLUCOSE, BUN, CREATININE, CA) 11:05:00 [facility] URINALYSIS 2022-06-20 Tika Cummings [place] of 22:41:00 [facility] BASIC METABOLIC PANEL (NA, K, CL, 2022-06-20 Emiliano [facility] of CO2, GLUCOSE, BUN, CREATININE, CA) 08:54:00 [facility] CBC WITH DIFF 2022-06-20 Tika Cummings [place] of 08:54:00 [facility] HEPATIC FUNCTION PANEL ([id number]) 2022-06-19 Tika Cummings niversity of (ALB,T.PRO,BILI 09:22:00 [facility] T,BU/BC,ALT,AST,ALK PHOS) [place] BASIC METABOLIC PANEL (NA, K, CL, 2022-06-19 Tika Cummings of CO2, GLUCOSE, BUN, CREATININE, CA) 09:22:00 [facility] CBC WITH DIFF 2022-06-19 Tika Cummings of 09:22:00 [facility] BLOOD CULTURE SCREEN 2022-06-19 Jesus Mora [place] of 03:22:00 [facility] BLOOD CULTURE SCREEN 2022-06-19 Jesus Mora [place] of 03:16:00 [facility] XR CHEST 1 VW 2022-06-19 Jesus Mora [place] of 01:50:09 [facility] HEPATIC FUNCTION PANEL ([id number]) 2022-06-18 Tika Cummings niversity of (ALB,T.PRO,BILI 10:14:00 [facility] T,BU/BC,ALT,AST,ALK PHOS) [place] PHOSPHORUS 2022-06-17 Herbie Olvera [place] of 09:00:00 [facility] MAGNESIUM 2022-06-17 [facility] of 09:00:00 [facility] TROPONIN I 2022-06-17 [facility] of 09:00:00 [facility] THYROID STIMULATING HORMONE 2022-06-[address] [facility] ersity of 09:00:00 [facility] COMP. METABOLIC PANEL ([id number]) 2022-06-17 Herbie Olvera iversity of 09:00:00 [facility] LIPID PANEL ([id number])(TOTAL 2022-06-17 [facility] CHOLESTEROL, TRIGLYCERIDES, HDL) 09:00:00 [facility] CBC WITH DIFF 2022-06-17 Herbie Olvera [place] [facility] 09:00:00 [facility] PROTHROMBIN TIME / INR 2022-06-17 Herbie Olvera [facility] y of 09:00:00 [facility] HEPATITIS B SURFACE ANTIBODY 2022-06-17 Jesus Mora [facility] versity of 09:00:00 [facility] HEPATITIS B SURFACE ANTIGEN 2022-06-17 Jesus Mora [facility] ersity of 09:00:00 [facility] HCV ANTIBODY 2022-06-17 Jesus Mora of 09:00:00 [facility] HBC ANTIBODY (IGM & IGG) 2022-06-17 Jesus Mora [facility] ity of 09:00:00 [facility] LAMOTRIGINE, LEVEL 2022-06-17 Herbie Olvera [place] of 09:00:00 [facility] N-TERMINAL PRO-BNP 2022-06-17 Herbie Olvera [place] of 09:00:00 [facility] PROCALCITONIN 2022-06-17 [facility] 09:[facility]00 [facility] CT ABDOMEN PELVIS W CONTRAST 2022-06-17 Hill Sawyer Uni versity of 00:50:10 [facility] CBC WITH DIFF 2022-06-17 Hill Sawyer [place] of 00:24:00 [facility] GLYCOSYLATED HEMOGLOBIN (A1C) 2022-06-17 Herbie Olvera Un iversity of 00:24:00 [facility] HB ECG ROUTINE & RHYTHM STRIP 2022-06-17 Hill Sawyer Un iversity of 00:06:46 [facility] BLOOD CULTURE SCREEN 2022-06-17 Hill Sawyer [place] of 00:00:00 [facility] LIPASE 2022-06-17 Hill Sawyer [place] of 00:00:00 [facility] MAGNESIUM 2022-06-17 Hill Sawyer [place] of 00:00:00 [facility] TROPONIN I 2022-06-17 Hill Sawyer [place] [facility] 00:00:00 [facility] COMP. METABOLIC PANEL ([id number]) 2022-06-17 Hill Sawyer Un iversity of 00:00:00 [facility] URINALYSIS 2022-06-17 Hill Sawyer [place] of 00:00:00 [facility] COVID-19 (ID NOW RAPID TESTING) 2022-06-17 Hill Sawyer of 00:00:00 [facility] LAB ONLY COVID INTERPRETATION 2022-06-17 Hill Sawyer iversity of 00:00:00 [facility] NOTICE OF PRIVACY PRACTICES 2022-06-16 Doctor [facility] ersity of 22:38:45 Unassigned, No [facility] CONSENT/REFUSAL FOR DIAGNOSIS AND 2022-06-16 Doctor [facility] of TREATMENT 22:35:24 Unassigned, No [facility] HB CREATININE BLOOD 2021-10-16 Carlton Echeverria [facility] [facility] f 21:37:00 [facility] NOTICE OF BILLING PRACTICES FOR 2021-10-16 Doctor [place] of MEDICARE PATIENTS 21:05:05 Unassigned, No [facility] PATIENT FINANCIAL POLICY 2021-10-16 Doctor Un iversity of 21:04:40 Unassigned, No [facility] NO SHOW OR MISSED APPOINTMENT 2021-10-16 Doctor Un iversity of POLICY ACKNOWLEDGEMENT 21:04:21 Unassigned, No [facility] CONSENT/REFUSAL FOR DIAGNOSIS AND 2021-10-16 Doctor [facility] 21:03:59 Unassigned, No [facility] ASSIGNMENT OF BENEFITS 2021-10-16 Doctor [facility] of 21:03:40 Unassigned, No [facility] COLONOSCOPY 2021-09-22 Carlton Echeverria [facility] 16:38:00 [facility] ESOPHAGOGASTRODUODENOSCOPY 2021-09-22 [facility] 16:38:00 [facility] COLONOSCOPY (ENDO) 2021-09-22 [facility] 16:33:27 [facility] COLONOSCOPY (ENDO) 2021-09-22 [facility] 16:33:27 [facility] EGD (ENDO) 2021-09-22 [facility] 16:23:06 [facility] EGD (ENDO) 2021-09-22 [facility] 16:23:06 [facility] DAY SURGERY - ADC 2021-09-22 [facility] 06:01:00 Unassigned, No [facility] EXTERNAL PROVIDER RECORDS 2021-09-16 Doctor Univer sity of 06:01:00 Unassigned, No [facility] EXTERNAL PROVIDER RECORDS 2021-09-16 Doctor Univer sity of 06:01:00 Unassigned, No [facility] EXTERNAL PROVIDER RECORDS 2021-09-14 Doctor Univer sity of 06:01:00 Unassigned, No [facility] EXTERNAL PROVIDER RECORDS 2021-09-14 Doctor Univer sity of 06:01:00 Unassigned, No [facility] COLONOSCOPY (ENDO) 2021-08-20 Carlton Echeverria [facility] 18:15:37 [facility] COLONOSCOPY 2021-08-20 Carlton Echeverria [facility] 18:01:00 [facility] PATIENT QUESTIONNAIRE 2021-08-20 Doctor [place] of 06:01:00 Unassigned, No [facility] EXTERNAL PROVIDER RECORDS 2021-08-03 [facility] 05:01:00 Unassigned, No [facility] EXTERNAL PROVIDER RECORDS 2021-08-03 Doctor [facility] sity of 05:01:00 Unassigned, No [facility] Plan of Care Planned Activity Planned Date Details Comments Source Future Scheduled 2031-09-22 Screening for malignant [facility] Test 00:00:00 neoplasm of colon Medical Ce nter (procedure) [code = 228233594] Future Scheduled 2031-09-22 Screening for malignant [facility] Test 00:00:00 neoplasm of colon Medical Ce [facility]ter (procedure) [code = 073021496] Future Scheduled 2031-09-22 Screening for malignant [facility] Test 00:00:00 neoplasm of colon Medical Ce nter (procedure) [code = 525414971] Future Scheduled 2031-09-22 Screening for malignant [facility] Test 00:00:00 neoplasm of colon Medical Ce nter (procedure) [code = 114656382] Future Scheduled 2023-06-03 Influenza Vaccine (#1) [facility] 00:00:00 [code = Influenza Medical Ce nter Vaccine (#1)] Future Scheduled 2023-06-[address] [facility] Test 00:00:00 (Season Ended) [code = Medic sc Center Influenza Vaccine (Season Ended)] Future Scheduled 2023-04-[address] [facility] Test 00:00:00 [facility] Screening (12+) [code = Tobacco Cessation Counseling and Screening (12+)] Future Scheduled 2023-04-[address] [facility] Test 00:00:00 [facility] Screening (12+) [code = Tobacco Cessation Counseling and Screening (12+)] Future Scheduled 2022-10-[address] [facility] Test 00:00:00 (12+) [code = Medical Center DEPRESSION SCREENING (12+)] Future Scheduled 2022-10-[address] [facility] Test 00:00:00 (12+) [code = Medical Center DEPRESSION SCREENING (12+)] Future Scheduled 2021-04-11 COVID-19 VACCINE (3 - [facility] series) [code = COVID-19 VACCINE (3 - Booster for [facility] series)] Future Scheduled 2021-04-11 COVID-19 VACCINE (3 - [...] FIRST YEAR if no IPPE)] Future Scheduled 2020-06-[address] [facility] 00:[facility]:00 WELLNESS (YEAR 2 or Medical Center FIRST YEAR if no IPPE) [code = MEDICARE ANNUAL WELLNESS (YEAR 2 or FIRST YEAR if no IPPE)] Future Scheduled 2013-12-26 SHINGLES VACCINES ([address] [facility] 00:00:00 2) [code = SHINGLES [facility] VACCINES (1 of 2)] Future Scheduled 2013-12-26 SHINGLES VACCINES ([address] [facility] 00:00:00 2) [code = SHINGLES [facility] VACCINES (1 of 2)] Future Scheduled 2008-12-26 Lipid panel (procedure) [facility] 00:00:00 [code = 29367949] Medical Ce nter Future Scheduled 2008-12-26 Lipid panel (procedure) [facility] 00:00:00 [code = 64835088] Medical Ce nter Future Scheduled 1984-12-26 Screening for malignant [facility] 00:00:00 neoplasm of cervix Medical C enter (procedure) [code = 157410605] Future Scheduled 1984-12-26 Screening for malignant [facility] 00:00:00 neoplasm of cervix Medical C enter (procedure) [code = 430165522] Future Scheduled 1982-12-26 DTAP/TDAP/TD VACCINES [facility] 00:00:00 (1 - Tdap) [code = Medical C enter DTAP/TDAP/TD VACCINES (1 - Tdap)] Future Scheduled 1982-12-26 DTAP/TDAP/TD VACCINES [facility] 00:00:00 (1 - Tdap) [code = Medical C enter DTAP/TDAP/TD VACCINES (1 - Tdap)] Future Scheduled 1981-12-26 HEPATITIS C SCREENING [facility] [code = HEPATITIS C Medical Center SCREENING] Future Scheduled 1981-12-26 HEPATITIS C [facility]CRE[facility]ING [facility]00 [code = HEPATITIS C Medical Center SCREENING] Future Scheduled 1963 Screening for malignant [facility] 00:00:00 neoplasm of breast Medical C enter (procedure) [code = 946346330] Future Scheduled 1963 CT Colonography (combo) [facility] 00:00:00 [code = CT Colonography [facility] (combo)] Future Scheduled 1963 Screening for malignant [facility] 00:00:00 neoplasm of colon Medical Ce nter (procedure) [code = 639188343] Future Scheduled 1963 Screening for malignant [facility] 00:00:00 neoplasm of colon Medical Ce nter (procedure) [code = 614610608] Future Scheduled 1963 Sigmoidoscopy [code = [facility] Sigmoidoscopy] Medical Cente r Future Scheduled 1963 Screening for malignant [facility] 00:00:00 neoplasm of breast Medical C enter (procedure) [code = 537512103] Future Scheduled 1963 CT Colonography (combo) [facility] 00:00:00 [code = CT Colonography [facility] (combo)] Future Scheduled 1963 Screening for malignant [facility] 00:00:00 neoplasm of colon Medical Ce nter (procedure) [code = 034346442] Future Scheduled 1963 Screening for malignant [facility] 00:00:00 neoplasm of colon Medical Ce nter (procedure) [code = 610195616] Future Scheduled 1963 Sigmoidoscopy [code = [facility] Sigmoidoscopy] Medical Cente r Encounters Start End Encounter Admission Attending Care Care Encounter Source Date/Time Date/Time Type Type Clinicians Facility Department ID 2023-03-18 Outpatient Platt, STLMLC STLMLC [id number] Common 10:58:00 Davin 70337 [facility] 2023-01-18 Outpatient Platt, STLMLC STLMLC [id number] Common 09:19:00 Davin 43607 [facility] 2023-01-03 Outpatient Platt, STLMLC STLMLC [id number] Common 13:22:00 Davin 15046 [facility] 2022-09-20 Outpatient Platt, STLMLC STLMLC [id number] Common 09:30:01 Davin 25721 [facility] 2022-07-09 Outpatient Platt, STLMLC STLMLC [id number] Common 10:44:00 Davin [facility] 2022-07-06 Outpatient Platt, STLMLC STLMLC [id number] Common 09:19:01 Davin [facility] 2022-07-05 Outpatient Platt, STLMLC STLMLC [id number] Common 16:24:02 Davin [facility] 2022-07-01 Outpatient Platt, STLMLC STLMLC [id number] Common 09:38:00 Davin 68689 [facility] 2022-06-29 Outpatient Platt, STLMLC STLMLC [id number] Common 11:52:00 Davin 30159 [facility] 2021-10-28 Outpatient Platt, STLMLC STLMLC [id number] Common 14:00:30 Davin 74382 [facility] 2021-10-28 Outpatient Platt, STLMLC STLMLC [id number] Common 13:48:24 Davin 77340 [facility] 2021-10-28 Outpatient Platt, STLMLC STLMLC [id number] Common 13:04:06 Davin 08613 [facility] 2021-10-28 Outpatient Platt, STLMLC STLMLC [id number] Common 12:33:05 Davin 82536 [facility] 2021-10-28 Outpatient Platt, STLMLC STLC [id number] Common 12:32:02 Davin 32183 [facility] 2021-10-28 Outpatient Platt, STLMLC STLC [id number] Common 12:11:19 Davin 68293 [facility] 2021-10-28 Outpatient Platt, STLMLC STLC [id number] Common 12:06:04 Davin 42003 [facility] 2021-10-28 Outpatient Platt, STLMLC STLC [id number] Common 11:57:23 Davin 58578 [facility] 2021-10-28 Outpatient Platt, STLMLC STLC [id number] Common 11:38:16 Davin 10732 [facility] 2021-10-28 Outpatient Platt, STLMLC STLC [id number] Common 11:16:03 Davin 55301 [facility] 2021-10-28 Outpatient Platt, STLMLC STLC [id number] Common 11:11:18 Davin 16013 [facility] 2021-10-28 Outpatient Platt, STLMLC STLC [id number] Common 11:09:24 Davin 07192 [facility] 2021-10-28 Outpatient Paltt, STLMLC STLC [id number] Common 11:08:56 Davin 36967 [facility] 2021-10-28 Outpatient Platt, STLMLC STLC [id number] Common 11:08:09 Davin 40572 [facility] 2022-11-16 2022-11-16 ROSALBA La 2.16.840. 2.16.840.1. C [id number] Devoted 21:30:00 22:30:00 [id number] [facility] [id number] 2022-11-11 2022-11-[address] [facility] [id number] 00:[facility] 00:00:00 [facility] 2022-11-11 2022-11-[address] [facility] [id number] 00:[facility]00 00:00:00 [facility] 2022-11-10 2022-11-10 (TEL) STLC STLMLC [id number] Co mmon 00:00:00 00:00:00 [facility] 2022-11-09 2022-11-09 Outpatient Alex_R DMG [facility] [id number] Devoted 00:00:00 00:00:00 [id number] [facility] 2022-11-09 2022-11-09 Outpatient Alex_R DMG DMG [id number] Devoted 00:00:00 00:00:00 [id number] [facility] l [facility] 2022-10-29 2022-10-29 (TEL) [facility] [id number] Co mmon 00:00:00 00:00:00 [facility] 2022-10-25 2022-10-25 (TEL) STLC STLC [id number] Co mmon 00:00:00 00:00:00 [facility] 2022-09-23 2022-09-23 Outpatient R [facility] [id number] Univers 14:15:10 23:59:00 SHAN ity of [facility] 2022-09-23 2022-09-23 [facility] 1.2.840.114 [id number] Univers 14:15:10 23:59:00 Encounter Shan BURRELL 350.1.13.10 ity of [place] 4.2.7.2.686 [facility] [id number] [facility] 804 Branch 2022-09-23 2022-09-23 Orders Doctor GRISEL 1.2.840.114 [id number] Univers 00:00:00 00:00:00 Only Unassigned, LEONIDES 350.1.13.10 ity of [place] [facility] 4.2.7.2.686 Faustino [id number] [facility] 009 Branch 2022-09-22 2022-09-22 [facility]ICE [facility] [id number] Co mmon 00:00:00 00:00:00 VISIT Juan C ESTAB PT - CHI LEVEL 4 [facility] 2022-09-06 2022-09-06 Telephone Oscar, [facility] [id number] [facility] 00:00:00 [facility] 2022-09-06 2022-09-06 Telephone Oscar, [facility] [id number] 00:00[facility]00 00:00:00 [facility] 2022-09-06 2022-09-06 [facility] [id number] Co mmon 00:00:00 00:00:00 VISIT Juan C ESTAB PT - CHI LEVEL 4 [facility] 2022-08-11 2022-08-11 Outpatient Patsy OJEDA [facility] [id number] Univers 00:00:00 00:00:00 SCAR [facility] 2022-07-30 2022-07-30 Outpatient DMG [facility] [id number] Devoted 00:00:00 00:00:00 [id number] [facility] 2022-07-29 2022-07-29 Outpatient DMG [facility] [id number] Devoted 00:00:00 00:00:00 [id number] [facility] 2022-07-29 2022-07-29 [facility] [id number] Co mmon 00:00:00 00:00:00 VISIT Juan C ESTAB PT - CHI LEVEL 4 [facility] 2022-07-26 2022-07-26 Emergency X [facility] ERT [id number] Univers 11:44:00 15:33:00 NILAY martinez [facility] 2022-07-26 2022-07-26 [facility] [id number] Univers 11:44:00 15:33:00 Nilay INDRA 350.1.13.10 i ty of [place] 4.2.7.2.686 [facility] [id number] [facility] 084 Branch 2022-07-26 2022-07-26 (TEL) STLMLC STLMLC [id number] Co mmon 00:00:00 00:00:00 [facility] 2022-07-14 2022-07-14 (TEL) STLMLC STLMLC [id number] Co mmon 00:00:00 00:00:00 [facility] 2022-07-09 2022-07-09 OFFICE STLMLC STLMLC [id number] Co mmon 00:00:00 00:00:00 VISIT [facility] LEVEL 4 [facility] 2022-07-06 2022-07-06 (TEL) STLMLC STLMLC [id number] Co mmon 00:00:00 00:00:00 [facility] 2022-07-05 2022-07-05 (TEL) STLMLC STLMLC [id number] Co mmon 00:00:00 00:00:00 [facility] 2022-06-30 2022-06-30 (HOSP F/U) STLMLC STLMLC [id number] Common 00:00:00 00:00:00 [facility] Follow Up [facility] 2022-06-23 2022-06-23 (TEL) STLMLC STLMLC [id number] Co mmon 00:00:00 00:00:00 [facility] 2022-06-22 2022-06-22 Transition MARCELINO Puri 1.2.840.114 [id number] Univers 00:00:00 00:00:00 of Care Spike VEE 350.1.13.[address] [facility] [id number] [address] Branch 2022-06-16 2022-06-21 Inpatient Jason MORA [facility] TANA [id number] Univers 18:03:00 12:23:00 JESUS martinez [facility] 2022-06-16 2022-06-21 [facility] [place] Sawyer [facility] 1.2.840.1 [id number] Univers 18:03:00 12:23:00 Encounter Pauly Wan 350.1.1 3.10 ity of [place] 4.2.7.2.686 [facility] [id number] Medical 081 Branch 2022-06-16 2022-06-16 Orders Doctor GRISEL 1.2.840.114 [id number] Univers 00:00:00 00:00:00 Only Unassigned, LEONIDES 350.1.13.10 ity of [place] [facility] 4.2.7.2.686 [facility] [id number] [facility] 009 Branch 2022-06-09 2022-06-09 [facility] [id number] Co mmon 00:00:00 00:00:00 VISIT Spirit ESTAB PT - CHI LEVEL 4 [facility] 2022-06-09 2022-06-09 (TEL) [facility] [id number] Co mmon 00:00:00 00:00:00 Spirit - [facility] 2022-06-09 2022-06-09 SUB ANNUAL [facility] [id number] Common 00:00:00 00:00:00 [facility] Spirit WELLNESS - CHI VISIT [facility] 2022-05-20 2022-05-20 (TEL) [facility] [id number] Co mmon 00:00:00 00:00:00 Spirit - [facility] 2022-05-18 2022-05-18 Telephone Oscar, [facility] [id number] 00:00[facility]00 00:00:00 [facility] 2022-05-18 2022-05-18 Telephone Oscar, [facility] [id number] 00:00[facility]00 00:00:00 [facility] 2022-04-14 2022-04-[address] [facility] [id number] 13:15:00 14:25:49 Visit [facility] 2022-04-14 2022-04-[address] [facility] [id number] 13:15:00 14:25:49 Visit [facility] 2022-02-09 2022-02-09 OFFICE STLMLC STLMLC [id number] Co mmon 00:00:00 00:00:00 VISIT Juan C ESTAB PT - CHI LEVEL 4 [facility] 2022-01-04 2022-01-04 Outpatient ISSAC KRUEGER, [facility] [id number] 09:57:22 12:00:27 [facility] 2021-12-17 2021-12-17 (TEL) STLC STLMLC [id number] Co mmon 00:00:00 00:00:00 Spirit - [facility] 2021-10-16 2021-10-16 [facility] [id number] Univers 15:06:23 23:59:00 CARLTON itanthony [facility] 2021-10-16 2021-10-16 [facility] [id number] [id number] Univers 15:00:00 23:59:00 Encounter Carlton BURRELL 350.1.13.10 ity [facility] 4.2.7.2.686 [facility] [id number] [place] [address] Branch 2021-10-12 2021-10-12 OFFICE STLC STLC [id number] Co mmon 00:00:00 00:00:00 VISIT Juan C ESTAB PT - CHI LEVEL 4 [facility] 2021-09-22 2021-09-22 [facility] 1.2.967.003 [id number] Univers 10:16:00 12:21:00 Encounter Carlton BURRELL 350.1.13.10 ity [facility] 4.2.7.2.686 [facility] [id number] Med [facility] CENTER 071 Branch 2021-09-22 2021-09-22 [facility] [id number] Univers 10:16:00 12:21:00 CARLTON ity [facility] 2021-09-22 2021-09-22 Surgery [facility] 1.2.840.114 [id number] Univers 10:50:00 12:01:00 Carlton BURRELL 350.1.13.10 i ty of [facility] [place]ICAL [id number] [facility] 020 Branch 2021-09-22 2021-09-22 Orders Doctor GRISEL 1.2.840.114 [id number] Univers 00:00:00 00:00:00 Only Unassigned, LEONIDES 350.1.13.10 ity of [place] [facility] 4.2.7.2.686 Faustino as [id number] [facility] 009 Branch 2021-09-21 2021-09-21 [facility] [id number] Univers 08:15:00 08:15:00 CARLTON ity [facility] 2021-09-04 2021-09-04 (TEL) [facility] [id number] Co mmon 00:00:00 00:00:00 [facility] 2021-08-20 2021-08-20 Surgery [facility] 1.2.840.114 [id number] Univers 12:50:00 14:12:00 Carlton BURRELL 350.1.13.10 i ty [place] [id number] [facility] 020 Branch 2021-08-20 2021-08-20 Outpatient [facility] [id number] Univers 11:19:00 12:57:00 CARLTON y [facility] 2021-08-20 2021-08-20 [facility] 1.2.754.169 [id number] Univers 11:19:00 12:57:00 Encounter Carlton BURRELL 350.1.13.10 ity of [facility] 4.[place] [id number] [facility] 071 Branch 2021-08-20 2021-08-20 Orders Doctor GRISEL 1.2.840.114 [id number] Univers 00:00:00 00:00:00 Only Unassigned, LEONIDES 350.1.13.10 ity of [place] [facility] 4.2.7.2.686 Faustino as [id number] [facility] 009 Branch 2021-08-17 2021-08-17 Outpatient [facility]atsy [facility] [id number] Univers 08:45:00 08:45:00 CARLTON nitishanthony [facility] 2021-07-13 2021-07-13 (TEL) STLMLC STLMLC [id number] Co mmon 00:00:00 00:00:00 [facility] 2021-07-06 2021-07-06 (TEL) STLMLC STLMLC [id number] Co mmon 00:00:00 00:00:00 [facility] 2021-07-02 2021-07-02 Outpatient STLMLC STLMLC [id number] Common 00:00:00 00:00:00 [facility] 2021-06-16 2021-06-16 Outpatient STLMLC STLMLC [id number] Common 00:00:00 00:00:00 [facility] 2021-06-04 2021-06-04 Outpatient STLMLC STLMLC [id number] Common 00:00:00 00:00:00 [facility] 2021-06-01 2021-06-01 Outpatient STLMLC STLMLC [id number] Common 00:00:00 00:00:00 [facility] 2021-05-27 2021-05-27 Outpatient STLMLC STLMLC [id number] Common 00:00:00 00:00:00 [facility] 2021-05-20 2021-05-20 Outpatient STLMLC STLMLC [id number] Common 00:00:00 00:00:00 [facility] 2021-05-20 2021-05-20 Outpatient STLMLC STLMLC [id number] Common 00:00:00 00:00:00 [facility] 2021-04-08 2021-04-08 Outpatient STLMLC STLMLC [id number] Common 00:00:00 00:00:00 [facility] 2021-04-08 2021-04-08 Outpatient STLMLC STLMLC [id number] Common 00:00:00 00:00:00 [facility] 2021-03-25 2021-03-25 Outpatient STLMLC STLMLC [id number] Common 00:00:00 00:00:00 [facility] 2021-02-16 2021-02-16 Outpatient STLMLC STLMLC [id number] Common 00:00:00 00:00:00 [facility] 2021-02-16 2021-02-16 Outpatient STLMLC STLMLC [id number] Common 00:00:00 00:00:00 [facility] 2020-11-26 2020-11-26 Outpatient STLMLC STLMLC [id number] Common 00:00:00 00:00:00 [facility] 2020-11-20 2020-11-20 Outpatient STLMLC STLMLC [id number] Common 00:00:00 00:00:00 [facility] 2020-11-03 2020-11-03 Outpatient STLMLC STLMLC [id number] Common 00:00:00 00:00:00 [facility] 2020-09-09 2020-09-09 Outpatient STLMLC STLMLC [id number] Common 00:00:00 00:00:00 [facility] 2020-09-08 2020-09-08 Outpatient STLMLC STLMLC [id number] Common 00:00:00 00:00:00 [facility] 2020-08-20 2020-08-20 Outpatient STLMLC STLMLC [id number] Common 00:00:00 00:00:00 [facility] 2020-08-07 2020-08-07 Outpatient STLMLC STLMLC [id number] Common 00:00:00 00:00:00 [facility] 2020-07-24 2020-07-24 Outpatient STLMLC STLMLC [id number] Common 00:00:00 00:00:00 [facility] 2020-07-21 2020-07-21 Outpatient STLMLC STLMLC [id number] Common 00:00:00 00:00:00 [facility] 2020-07-21 2020-07-21 Outpatient STLMLC STLMLC [id number] Common 00:00:00 00:00:00 [facility] 2020-07-18 2020-07-18 Outpatient STLMLC STLMLC [id number] Common 00:00:00 00:00:00 [facility] 2020-07-17 2020-07-17 Outpatient STLMLC STLMLC [id number] Common 00:00:00 00:00:00 [facility] 2020-05-15 2020-05-15 [facility] [id number] Common 14:15:00 14:15:[address] [facility] 2020-04-09 2020-04-09 Out[facility] [id number] Common 08:55:00 08:55:[address] [facility] 2020-04-07 2020-04-07 [facility] [id number] Common 10:34:00 10:34:[address] [facility] 2020-02-13 2020-02-13 Outpatient [facility] [id number] Common 15:00:00 15:00:[address] [facility] 2020-02-13 2020-02-13 Outpatient [facility] [id number] Common 15:00:00 15:00:[address] [facility] 2020-02-08 2020-02-08 Out[facility] [id number] Common 08:47:00 08:47:[address] [facility] 2019-11-19 2019-11-19 Out[facility] [id number] Common 13:00:00 13:00:[address] [facility] 2019-11-12 2019-11-12 Out[facility] [id number] Common 08:28:00 08:28:[address] [facility] 2019-09-11 2019-09-11 Outpatient [facility] [id number] Common 13:30:00 13:30:00 t Bone Bone and Spiri t and Joint [facility] - [facility] 2019-08-16 2019-08-16 Out[facility] [id number] Common 13:15:00 13:15:[address] [facility] 2019-07-31 2019-07-31 Out[facility] [id number] Common 10:00:00 10:00:00 t Bone Bone and Spiri t and Joint [facility] - [facility] 2019-07-30 2019-07-30 [facility] [id number] Common 14:13:00 14:13:00 t Bone Bone and Spiri t and Joint [facility] - [facility] 2019-07-27 2019-07-27 Out[facility] [id number] Common 08:51:00 08:51:00 t Bone Bone and Spiri t and Joint Joint - [facility] 2019-07-10 2019-07-10 Outpatient [facility] [id number] Common 10:00:00 10:00:00 t Bone Bone and Spiri t and Joint [facility] - [facility] 2019-07-10 2019-07-10 Out[facility] [id number] Common 08:30:00 08:30:[address] [facility] 2019-07-09 2019-07-09 Outpatient [facility] [id number] Common 10:47:00 10:47:[address] [facility] 2019-07-06 2019-07-06 Office Steven [facility] 1.2.840.114 [id number] 13:15:43 13:45:43 Visit Zenaida AMBULATOR 350.1.13.21 Y 0.2.7.2.686 [id number] 800 2019-06-20 2019-06-20 [facility] [id number] Common 13:30:00 13:30:00 t Bone Bone and Spiri t and Joint Joint - [facility] 2019-06-20 2019-06-20 Outpatient [facility] [id number] Common 08:49:00 08:49:[address] [facility] 2019-06-18 2019-06-18 Outpatient [facility] [id number] Common 08:30:00 08:30:[address] [facility] 2019-05-21 2019-05-21 Outpatient [facility] [id number] Common 13:55:00 13:55:[address] [facility] 2019-05-18 2019-05-18 Outpatient [facility] [id number] Common 14:40:00 14:40:[address] [facility] 2019-05-17 2019-05-17 Outpatient [facility] [id number] Common 14:00:00 14:00:[address] [facility] 2019-02-08 2019-02-08 Outpatient [facility] [id number] Common 16:40:00 16:40:[address] [facility] 2019-02-06 2019-02-06 Outpatient [facility] [id number] Common 16:30:00 16:30:[address] [facility] 2019-01-30 2019-01-30 Outpatient [facility] [id number] Common 11:28:00 11:28:[address] [facility] 2019-01-25 2019-01-25 Outpatient [facility] [id number] Common 14:30:00 14:30:[address] [facility] 2018-12-07 2018-12-07 Outpatient [facility] [id number] Common 14:30:00 14:30:[address] [facility] 2018-12-05 2018-12-05 Outpatient [facility] [id number] Common 15:15:00 15:15:00 t Specialty/U Sp anitra Specialty rology - [facility] /Urology Clinic [facility] 2018-11-08 2018-11-08 Out[facility] [id number] Common 13:25:00 13:25:[address] [facility] 2018-11-01 2018-11-01 [id number] Common 13:15:00 13:15:[address] [facility] 2018-10-27 2018-10-27 [id number] Common 12:16:00 12:16:[address] [place] [address] [facility] 2018-10-26 2018-10-26 [id number] Common 15:10:00 15:10:00 t Specialty/U Sp anitra Specialty rology - [facility] /Urology [facility] 2018-10-26 2018-10-26 [id number] Common 13:45:00 13:45:00 t Specialty/U Sp anitra Specialty rology - [facility] /Urology [facility] 2018-10-09 2018-10-09 [facility] [id number] Common 10:45:00 10:45:[address] [facility] 2018-09-13 2018-09-13 [facility] [id number] Common 09:40:00 09:40:[address] [facility] 2018-09-11 2018-09-11 [facility] [id number] Common 14:30:00 14:30:[address] [facility] Results Test Description Test Time Test Comments Results Result Comments Source BASIC METABOLIC PANEL (NA, K, CL, CO2, GLUCOSE, BUN, 2022-06 11:51:11 CREATININE, CA) Test Item Value Reference Range Interpretation Comme nts NA (test code = 0338679862) 133 mmol/L 135-145 L K (test code = 7564506230) 3.7 mmol/L 3.5-5 CL (test code = 9156699594) 102 mmol/L 98-108 CO2 TOTAL (test code = 0226848000) 24 mmol/L 23-31 AGAP (test code = 8265068439) 2-16 BUN (test code = 2705466917) 3 mg/dL 7-23 L GLUCOSE (test code = 8528102371) 101 mg/dL 70-110 CREATININE (test code = 0.85 mg/dL 0.5-1.04 2424006237) CALCIUM (test code = 6962689323) 8.7 mg/dL 8.6-10.6 eGFR (test code = 5002435829) mL/min/1.73m2 COLTON (test code = COLTON) Association [...] tests). Lab Interpretation (test code = Abnormal 37872-8) [facility]26719[facility] (ALB,T.PRO,BILI T,BU/BC,ALT,AST,ALK PHOS)2022-06-21 11:50:31 Test Item Value Reference Range Interpretation Comments TOTAL BILI (test code = 7802188196) 0.2 mg/dL 0.1-1.1 BILI UNCON (test code = 2678024797) 0.1 mg/dL 0.1-1.1 BILI CONJ (test code = 2021981368) 0.0 mg/dL 0-0.3 T PROTEIN (test code = 7694552951) 6.0 g/dL 6.3-8.2 L ALBUMIN (test code = 7569826209) 3.5 g/dL 3.5-5 ALK PHOS (test code = 4287373112) 583 U/L 34-122 H ALTv (test code = 1742-6) 139 U/L 5-35 H AST(SGOT) (test code = 0675752401) 55 U/L 13-40 H Lab Interpretation (test code = Abnormal 61639-2) [facility] (NA, K, CL, CO2, GLUCOSE, BUN, CREATININE, CA)2022-06-20 10:31:12 Test Item Value Reference Range Interpretation Comments NA (test code = 135 mmol/L 135-145 5593783674) K (test code = 2.9 mmol/L 3.5-5 LL 4844243375) CL (test code = 107 mmol/L 98-108 2485811932) CO2 TOTAL (test code = 22 mmol/L 23-31 L 7667564505) AGAP (test code = 2-16 6114234867) BUN (test code = 7-23 L 5173442514) GLUCOSE (test code = 103 mg/dL 70-110 9667330786) CREATININE (test code = 0.73 mg/dL 0.5-1.04 5716518673) CALCIUM (test code = 8.4 mg/dL 8.6-10.6 L 2828458017) eGFR (test code = mL/min/1.73m2 3448923814) COLTON (test code = COLTON) Association of [...] tests). Lab Interpretation Abnormal (test code = 70974-7) [facility] WITH [id number] 09:21:48 Test Item Value Reference Range Interpretation Comments WBC (test code = See_Comment [Automated 1690-2) message] The sy stem which generated this result transmitted reference range : 4.30 - 11.10 10*3/?L. The reference range was not used to interpret this result as normal/abnormal . RBC (test code = See_Comment L [Automated 739-8) message] The sy stem which generated this [...] RDW-SD (test code = 40.5 fL 39-49.9 16537-5) RDW-CV (test code = 12.6 % 12-15.5 788-0) PLT (test code = See_Comment H [Automated 777-3) message] The sy stem which generated this result transmitted reference range : 166 - 358 10*3/ ?L. The reference r susana was not used to interpret this result as normal/abnormal . MPV (test code = 9.0 fL 9.5-12.9 L 32454-3) NRBC/100 WBC (test See_Comment [Automat ed code = 4626707479) message] The system which generated this result transmitted reference range : 0.0 - 10.0 /100 WBCs. The refer ence range was not u sed to interpret th is result as normal/abnormal . NRBC x10^3 (test code See_Comment [Auto mated = 5107229103) message] The s ystem which generated this result transmitted reference range : 10*3/?L. The reference range was not used to interpret this result as normal/abnormal . GRAN MAT (NEUT) % 67.8 % (test code = 770-8) IMM GRAN % (test code 1.20 % = 7516510404) LYMPH % (test code = 17.9 % 736-9) MONO % (test code = 11.7 % 5905-5) EOS % (test code = 1.2 % 713-8) BASO % (test code = 0.2 % 706-2) GRAN MAT x10^3(ANC) 4.02 10*3/uL 1.88-7.09 (test code = 7674405240) IMM GRAN x10^3 (test 0.07 10*3/uL 0-0.06 H code = 6381046565) LYMPH x10^3 (test code 1.06 10*3/uL 1.32-3.29 L = 731-0) MONO x10^3 (test code 0.69 10*3/uL 0.33-0.92 = 742-7) EOS x10^3 (test code = 0.07 10*3/uL 0.03-0.39 711-2) BASO x10^3 (test code 0.01-0.07 = 704-7) Lab Interpretation Abnormal (test code = 21269-6) [facility]LAM[facility]IG[facility], [id number] 21:07:40 Test Item Value Reference Range Interpretation [...] nausea and vomiting.Perfor med By: [facility] [address] [place] [address] [id number] aboratory Director: Joe Martinez MD, PhD [facility] (08959[facility] (ALB,T.PRO,BILI T,BU/BC,ALT,AST,ALK PHOS)2022-06-18 11:44:08 Test Item Value Reference Range Interpretation Comments TOTAL BILI (test code = 9714935810) 0.4 mg/dL 0.1-1.1 BILI UNCON (test code = 9127164535) 0.1 mg/dL 0.1-1.1 BILI CONJ (test code = 4586628482) 0.0 mg/dL 0-0.3 T PROTEIN (test code = 7268503242) 6.0 g/dL 6.3-8.2 L ALBUMIN (test code = 4566994148) 3.4 g/dL 3.5-5 L ALK PHOS (test code = 0216505792) 608 U/L 34-122 H ALTv (test code = 1742-6) 373 U/L 5-35 H AST(SGOT) (test code = 2626018818) 357 U/L 13-40 H Lab Interpretation (test code = Abnormal 41673-2) [facility]AT[facility] SURFACE [id number] 20:52:12 Test Item Value Reference Range Interpretation Comments HBsAB (test code = Indeterminate 4300152835) HBsAb mIU/mL Semi-Quantitative (test code = 1206662123) COLTON (test code = Unable to determine if COLTON) antibody to Hepatitis B Surface Antigen is present at levels consistent with immunity. ?Patient's immune status should be assessed with other clinical information and/or retesting in 4-6 weeks as clinically indicated. ?If any questions, please contact Clinical Chemistry Director motion picture scene builder at .Unable to determine if antibody to Hepatitis B Surface Antigen is present at levels consistent with immunity. ?Patient's immune status should be assessed with other clinical information and/or retesting in 4-6 weeks as clinically indicated. ?If any questions, please contact Clinical Chemistry Director motion picture scene builder at .Unable to determine if antibody to Hepatitis B Surface Antigen is present at levels consistent with immunity. ?Patient's immune status should be assessed with other clinical information and/or retesting in 4-6 weeks as clinically indicated. ?If any questions, please contact Clinical Chemistry Director motion picture scene builder at .Interpretati on: ?Hepatitis B Surface Antibody ? Negative - Patient is considered to be not immune to infection with HBV. ? ? Positive - Anti-HBs detected at greater than or equal to 12 mIU/mL. ?Patient is considered to be immune to infection with HBV. ? [facility]HBC ANTIBODY (IGM & IGG)2022-06-17 19:04:09 Test Item Value Reference Range Interpretation Comments HBC (test code = 5287433564) Negative HBC Semi-Quantitative (test code = 7376261359) [facility] HospitalHCV [id number] 19:04:09 Test Item Value Reference Range Interpretation Comments HCV Ab (test code = 18074-9) Negative HCV Semi-Quantitative (test code = 26794-2) [facility] SURFACE [id number] 18:45:46 Test Item Value Reference Range Interpretation Comments HBsAg Semi-Quantitative (test code = Negative Negative 5195-3) [facility] HospitalPROCALCITONIN2022-09-15 16:01:08 Test Item Value Reference Interpretation Comments Range Procalcitonin (test 0.31 ng/mL See_Comment H [Automa cartlon code = 9323335182) message] The system which generated this result [...] lung abscess/empyema. For further information please refer to:[email or web address] Lab Interpretation Abnormal (test code = 15687-8) [facility]. METABOLIC PANEL (24037)2022-06-17 13:10:04 Test Item Value Reference Range Interpretation Comments NA (test code = 141 mmol/L 135-145 8840372017) K (test code = 3.5 mmol/L 3.5-5 3467429890) CL (test code = 111 mmol/L 98-108 H 7482208824) CO2 TOTAL (test code = 24 mmol/L 23-31 0212954771) AGAP (test code = 2-16 1170548807) BUN (test code = 8 mg/dL 7-23 6249359655) GLUCOSE (test code = 97 mg/dL 70-110 3213378572) CREATININE (test code = 0.89 mg/dL 0.5-1.04 4210739323) TOTAL BILI (test code = 1.1 mg/dL 0.1-1.3 9688889402) CALCIUM (test code = 8.2 mg/dL 8.6-10.6 L 9132670087) T PROTEIN (test code = 5.8 g/dL 6.3-8.2 L 3890308861) ALBUMIN (test code = 3.2 g/dL 3.5-5 L 4651512990) ALK PHOS (test code = 766 U/L 34-122 H 9666046644) ALTv (test code = 634 U/L 5-35 H 1742-6) AST(SGOT) (test code = 1987 U/L 13-40 H 9488752300) eGFR (test code = mL/min/1.73m2 5290040985) COLTON (test code = COLTON) Association of [...] tests). Lab Interpretation Abnormal (test code = 89032-2) [facility] HospitalTHYROID STIMULATING [id number] 12:33:26 Test Item Value Reference Range Interpretation Comments TSH (test code = See_Comment [Automated message] 8449335144) The system [employer] generated this result transmitted ref erence range: 0.45 - 4 .70 mIU/L. The refe rence range was not u sed to interpret this result as normal/abnor mal. Lab Interpretation (test Normal code = 65465-2) [facility] HospitalTROPONIN [id number] 12:15:04 Test Item Value Reference Interpretation Comments Range TROPONIN I (test 0.006 ng/mL See_Comment [Automated code = 7155595234) message] The system which generated this result [...] biotin. Lab Interpretation Normal (test code = 14307-4) [facility] HospitalN-TERMINAL [id number] 12:11:41 Test Item Value Reference Range Interpretation Comments NT-proBNP (test code 176 pg/mL See_Comment H [Autom ated = 0881225776) message] The system which generated this result transmitted reference range : <=125. The reference range was not used to interpret this result as normal/abnormal . COLTON (test code = COLTON) Biotin has been reported to cause a negative bias, interpret results relative to patient's use of biotin. Lab Interpretation Abnormal (test code = 24120-1) [facility] HospitalLIPID PANEL (92687)(TOTAL CHOLESTEROL, TRIGLYCERIDES, HDL)2022-06-17 12:03:42 Test Item Value Reference Range Interpretation Comments CHOL (test code = 152 mg/dL 120-200 8239153605) HDL (test code = 40 mg/dL See_Comment L [Automated message] 9635590866) The system [employer] generated this result transmit carlton reference range : >=50. The refer ence range was not u sed to interpret th is result as normal/abnormal . HDLC RATIO (test code = See_Comment [Au tomated message] 4138838698) The system [employer] generated this result transmit carlton reference range : <=4.5. The refe rence range was not u sed to interpret th is result as normal/abnormal . TRIG (test code = 102 mg/dL 30-170 4666907414) LDL CHOL (test code = 92 mg/dL See_Comment [Auto mated message] 61045-6) The system ic h generated this result transmit carlton reference range : <=160. The refe rence range was not u sed to interpret th is result as normal/abnormal . VLDL (test code = 20 mg/dL 5-60 6098223089) Lab Interpretation (test Abnormal code = 72528-6) [facility] HospitalMAGNESIUM2022-09-15 12:03:42 Test Item Value Reference Range Interpretation Comments MAGNESIUM (test code = 2286567805) 2.0 mg/dL 1.7-2.4 Lab Interpretation (test code = Normal 51774-3) [facility] HospitalPHOSPHORUS2022-09-15 12:03:21 Test Item Value Reference Range Interpretation Comments PHOSPHORUS (test code = 5924759701) 3.7 mg/dL 2.5-5 Lab Interpretation (test code = Normal 65426-5) [facility] HospitalProthrombin Time / [id number] 10:10:50 Test Item Value Reference Range Interpretation Comments PROTIME PATIENT (test See_Comment [Auto mated message] code = 5964-2) The system [facility] generated this result transmitted ref erence range: 12.0 - 1 4.7 Seconds. The re ference range was not u sed to interpret this result as normal/abnor mal. INR (test code = 6301-6) Nor mal INR <1.1; Warfarin Therap eutic range 2.0 to 3. 0 or 2.5 to 3.5, dep ending upon the indica tions. Lab Interpretation (test Normal code = 23160-7) [facility]CB WITH [id number] 09:47:03 Test Item Value Reference Range Interpretation Comments WBC (test code = See_Comment [Automated 3490-2) message] The sy stem which generated this result transmitted reference range : 4.30 - 11.10 10*3/?L. The reference range was not used to interpret this result as normal/abnormal . RBC (test code = See_Comment L [Automated 099-8) message] The sy stem which generated this [...] RDW-SD (test code = 43.2 fL 39-49.9 04079-5) RDW-CV (test code = 12.6 % 12-15.5 788-0) PLT (test code = See_Comment [Automated 777-3) message] The sy stem which generated this result transmitted reference range : 166 - 358 10*3/ ?L. The reference r susana was not used to interpret this result as normal/abnormal . MPV (test code = 9.0 fL 9.5-12.9 L 07066-9) NRBC/100 WBC (test See_Comment [Automat ed code = 9780970361) message] The system which generated this result transmitted reference range : 0.0 - 10.0 /100 WBCs. The refer ence range was not u sed to interpret th is result as normal/abnormal . NRBC x10^3 (test code See_Comment [Auto mated = 5299172567) message] The s ystem which generated this result transmitted reference range : 10*3/?L. The reference range was not used to interpret this result as normal/abnormal . GRAN MAT (NEUT) % 70.7 % (test code = 770-8) IMM GRAN % (test code 0.50 % = 2516031948) LYMPH % (test code = 15.3 % 736-9) MONO % (test code = 12.0 % 5905-5) EOS % (test code = 1.3 % 713-8) BASO % (test code = 0.2 % 706-2) GRAN MAT x10^3(ANC) 5.85 10*3/uL 1.88-7.09 (test code = 5341195913) IMM GRAN x10^3 (test 0.04 10*3/uL 0-0.06 code = 5825269232) LYMPH x10^3 (test code 1.27 10*3/uL 1.32-3.29 L = 731-0) MONO x10^3 (test code 0.99 10*3/uL 0.33-0.92 H = 742-7) EOS x10^3 (test code = 0.11 10*3/uL 0.03-0.39 711-2) BASO x10^3 (test code 0.01-0.07 = 704-7) Lab Interpretation Abnormal (test code = 57652-2) [facility] HospitalGLYCOSYLATED HEMOGLOBIN (A1C)2022-06-17 06:45:49 Test Item Value Reference Range Interpretation Comments HGB A1C (test code = 5.4 % 4-5.7 4548-4) COLTON (test code = COLTON) Reference RangesNormal: <5.7%Prediabetes: 5.7 - 6.4%Diabetes: > 6.5% Lab Interpretation (test Normal code = 35090-1) [facility] HospitalTROPONIN [id number] 00:41:17 Test Item Value Reference Interpretation Comments Range TROPONIN I (test 0.004 ng/mL See_Comment [Automated code = 7681359041) message] The system which generated this result [...] biotin. Lab Interpretation Normal (test code = 33053-9) [facility] WITH [id number] 00:35:10 Test Item Value Reference Range Interpretation [...] RDW-SD (test code = 42.3 fL 39-49.9 17587-1) RDW-CV (test code = 12.6 % 12-15.5 788-0) PLT (test code = See_Comment H [Automated 777-3) message] The sy stem which generated this result transmitted reference range : 166 - 358 10*3/ ?L. The reference r susana was not used to interpret this result as normal/abnormal . MPV (test code = 8.7 fL 9.5-12.9 L 45363-6) NRBC/100 WBC (test See_Comment [Automat ed code = 9149338799) message] The system which generated this result transmitted reference range : 0.0 - 10.0 /100 WBCs. The refer ence range was not u sed to interpret th is result as normal/abnormal . NRBC x10^3 (test code See_Comment [Auto mated = 5566442273) message] The s ystem which generated this result transmitted reference range : 10*3/?L. The reference range was not used to interpret this result as normal/abnormal . GRAN MAT (NEUT) % 73.1 % (test code = 770-8) IMM GRAN % (test code 0.40 % = 4378771337) LYMPH % (test code = 13.3 % 736-9) MONO % (test code = 11.8 % 5905-5) EOS % (test code = 1.1 % 713-8) BASO % (test code = 0.3 % 706-2) GRAN MAT x10^3(ANC) 8.51 10*3/uL 1.88-7.09 H (test code = 8182795013) IMM GRAN x10^3 (test 0.05 10*3/uL 0-0.06 code = 0211867608) LYMPH x10^3 (test code 1.55 10*3/uL 1.32-3.29 = 731-0) MONO x10^3 (test code 1.37 10*3/uL 0.33-0.92 H = 742-7) EOS x10^3 (test code = 0.13 10*3/uL 0.03-0.39 711-2) BASO x10^3 (test code 0.03 10*3/uL 0.01-0.07 = 704-7) Lab Interpretation Abnormal (test code = 97608-3) [facility] HospitalCOM. METABOLIC PANEL (55721)2022-06-17 00:30:09 Test Item Value Reference Range Interpretation Comments NA (test code = 135 mmol/L 135-145 8387378009) K (test code = 4.4 mmol/L 3.5-5 0341122946) CL (test code = 102 mmol/L 98-108 2695544804) CO2 TOTAL (test code = 22 mmol/L 23-31 L 3044017127) AGAP (test code = 2-16 7430286616) BUN (test code = 9 mg/dL 7-23 0123447610) GLUCOSE (test code = 113 mg/dL 70-110 H 1474135236) CREATININE (test code = 0.89 mg/dL 0.5-1.04 3803660239) TOTAL BILI (test code = 0.7 mg/dL 0.1-1.1 7157538031) CALCIUM (test code = 9.2 mg/dL 8.6-10.6 7646429056) T PROTEIN (test code = 7.4 g/dL 6.3-8.2 7381531942) ALBUMIN (test code = 4.4 g/dL 3.5-5 1009713429) ALK PHOS (test code = 158 U/L 34-122 H 6858626439) ALTv (test code = 20 U/L 5-35 1742-6) AST(SGOT) (test code = 32 U/L 13-40 5549747268) eGFR (test code = mL/min/1.73m2 5579993775) COLTON (test code = COLTON) Association of [...] tests). Lab Interpretation Abnormal (test code = 99080-8) [facility]20[facility] 00:30:09 Test Item Value Reference Range Interpretation Comments MAGNESIUM (test code = 3847892317) 2.0 mg/dL 1.7-2.4 Lab Interpretation (test code = Normal 72949-0) [facility]LIPASE2022-[facility] 00:29:54 Test Item Value Reference Range Interpretation Comments LIPASE (test code = 5980323222) 102 U/L 0-220 Lab Interpretation (test code = Normal 96429-4) [facility] HospitalPOCT [id number] 22:24:44 Test Item Value Reference Range Interpretation Comments POCT Creatinine (test code = 0.7 mg/dL 0.5-1.2 3172665003) Lab Interpretation (test code = Normal 22939-1) [facility] HospitalLIPASE2019-10-01 06:29:00 Test Item Value Reference Range Interpretation Comments LIPASE (BEAKER) (test code = 749) 48 U/L 8-78 COMPREHENSIVE METABOLIC [id number] 06:29:00 Test Item Value Reference Range Interpretation [...] PATIEN TS. CBC W/PLT COUNT & AUTO [id number] 05:57:00 Test Item Value Reference Range Interpretation [...] 413) RAD, ABDOMEN SERIES W/ UPRIGHT PA [id number] 13:35:00Reason for exam:- >Postoperative distentionShould this be [...] [facility]ort Verified Date/Time: 07/02/2019 13:35:05 Reading Location:[facility] Radiology Reading Room [id number] 06:54:00 Test Item Value Reference Range Interpretation Comments LIPASE (BEAKER) (test code = 749) 56 U/L 8-78 COMPREHENSIVE METABOLIC [id number] 06:54:00 Test Item Value Reference Range Interpretation [...] PATIEN TS. CBC W/PLT COUNT & AUTO [id number] 06:31:00 Test Item Value Reference Range Interpretation [...] = 2801) CBC W/PLT COUNT & AUTO [id number] 06:59:00 Test Item Value Reference Range Interpretation [...] 0-1 PERCENT (BEAKER) (test code = 2801) [id number] 06:51:00 Test Item Value Reference Range Interpretation Comments LIPASE (BEAKER) (test code = 749) 53 U/L 8-78 COMPREHENSIVE METABOLIC [id number] 06:51:00 Test Item Value Reference Range Interpretation [...] PATIEN TS. CBC W/PLT COUNT & AUTO [id number] 06:20:00 Test Item Value Reference Range Interpretation [...] GRANULOCYTES-RELATIVE PERCENT (BEAKER) (test code = 2801) [id number] 05:44:00 Test Item Value Reference Range Interpretation Comments LIPASE (BEAKER) (test code = 749) 52 U/L 8-78 COMPREHENSIVE METABOLIC [id number] 05:44:00 Test Item Value Reference Range Interpretation [...] S NOT APPLICABLE FOR DIALYSIS PATIEN TS. [id number] 05:21:00 Test Item Value Reference Range Interpretation Comments LIPASE (BEAKER) (test code = 749) 72 U/L 8-78 COMPREHENSIVE METABOLIC [id number] 05:21:00 Test Item Value Reference Range Interpretation [...] PATIEN TS. CBC W/PLT COUNT & AUTO [id number] 05:14:00 Test Item Value Reference Range Interpretation [...] 0-1 PERCENT (BEAKER) (test code = 2801) [id number] 05:17:00 Test Item Value Reference Range Interpretation Comments LIPASE (BEAKER) (test code = 749) 55 U/L 8-78 COMPREHENSIVE METABOLIC [id number] 05:17:00 Test Item Value Reference Range Interpretation [...] PATIEN TS. CBC W/PLT COUNT & AUTO [id number] 04:59:00 Test Item Value Reference Range Interpretation [...] WBC 0-0 (BEAKER) (test code = 413) [id number] 07:03:00 Test Item Value Reference Range Interpretation Comments LIPASE (BEAKER) (test code = 749) 40 U/L 8-78 COMPREHENSIVE METABOLIC [id number] 07:03:00 Test Item Value Reference Range Interpretation [...] PATIEN TS. CBC W/PLT COUNT & AUTO [id number] 06:03:00 Test Item Value Reference Range Interpretation [...] 0-1 PERCENT (BEAKER) (test code = 2801) [id number] 07:19:00 Test Item Value Reference Range Interpretation Comments LIPASE (BEAKER) (test code = 749) 37 U/L 8-78 COMPREHENSIVE METABOLIC [id number] 07:19:00 Test Item Value Reference Range Interpretation [...] PATIEN TS. CBC W/PLT COUNT & AUTO [id number] 05:30:00 Test Item Value Reference Range Interpretation [...] (BEAKER) (test code = 2801) BASIC METABOLIC [id number] 20:44:00 Test Item Value Reference Range Interpretation [...] 0-0 (BEAKER) (test code = 413) PROTHROMBIN TIME/[id number] 15:49:00 Test Item Value Reference Range Interpretation [...] mechanical heart valves.RAD, CHEST, 1 VIEW, NON [id number] 15:13:00Reason for exam:->preopShould this be performed at the bedside?->YesFINAL REPORT INDICATION: preop COMPARISON: None TECHNIQUE: Single frontal view of the chest. FINDINGS: Lungs and pleura: Clear lungs. No effusion.Heart and mediastinum: Normal heart size. Unremarkable mediastinal contours.Osseous structures: No acute abnormality.Other: None. IMPRESSION: No acute intrathoracic abnormality. Signed: Charmaine Soliz Verified Date/Time: 06/25/2019 15:13:30 Reading Location: [facility] Radiology Reading Room [id number] 11:37:00 Test Item Value Reference Range Interpretation Comments LIPASE (BEAKER) (test code = 749) 168 U/L 8-78 H COMPREHENSIVE METABOLIC [id number] 11:37:00 Test Item Value Reference Range Interpretation [...] PATIEN TS. CBC W/PLT COUNT & AUTO [id number] 11:16:00 Test Item Value Reference Range Interpretation [...] % 0-1 PERCENT (BEAKER) (test code = 2801)"
--- NOTE | 2023-04-08 22:11 | RAD REPORT ---
EXAM DESCRIPTION: CT - CTHCSPWOC - 04/08/2023 9:28 pm CLINICAL HISTORY: HEADACHE COMPARISON: No comparisons TECHNIQUE: Axial thin cut noncontrast CT images of the head were obtained. Axial thin cut noncontrast CT images of the cervical spine were obtained. Multiplanar reformatted images were generated and reviewed. All CT scans are performed using dose optimization technique as appropriate and may include automated exposure control or mA/KV adjustment according to patient size. FINDINGS: CT HEAD WITHOUT CONTRAST: No acute hemorrhage, hydrocephalus or extra-axial collection is identified. Mild diffuse parenchymal volume loss. No areas of brain edema or midline shift. The paranasal sinuses and mastoids are clear.The calvarium is intact. CT CERVICAL SPINE WITHOUT CONTRAST: No fracture or subluxation.Mild degenerative changes with moderate disc height loss at C6-7.No prever tebral soft tissues swelling is identified. IMPRESSION: No acute traumatic intracranial or cervical spine findings. Chronic findings as above.
[2023-04-08] MEDS ORDERED: NA CHLORIDE 0.9% 1,000 ML ONE (22:19)
[2023-04-08] MEDS ORDERED: ONDANSETRON 4 MG/2 ML VIAL ONE (22:19)
[2023-04-08] MEDS ORDERED: MORPHINE 4 MG/ML SYR ONE (22:19)
[2023-04-08] MEDS ORDERED: MECLIZINE HCL 12.5 MG TAB ONE (22:19)
[2023-04-08] MEDS ORDERED: Magnesium Sulfate 2gm IVPB 2 G/50 ML BAG IV ONE (22:19)
[2023-04-08 22:25] LABS: Absolute Lymphocytes (CBC) 1.9 K/uL (0.7-4.9); Hematocrit 37.7 % (36.0-45.0); Lymphocytes % 28.4 % (15.3-44.8); MCV 92.5 fL (80-100); MPV 6.9 fL (7.6-11.3); RBC Red Blood Cell Count 4.07 M/uL (3.86-4.86)
[2023-04-08 22:41] LABS: Albumin 3.2 g/dL (3.4-5.0); Bilirubin Direct 0.1 mg/dL (0-0.2); Bilirubin Indirect, Calculated 0.2 mg/dL (0.2-0.8); Bilirubin Total 0.3 mg/dL (0.2-1.0); Magnesium 2.2 mg/dL (1.6-2.4); Potassium 4.4 mEq/L (3.5-5.1); Protein, Total 6.5 g/dL (6.4-8.2); Troponin High Sensitivity 3.6 pg/mL (<58.9)
--- NOTE | 2023-04-08 22:42 | RAD REPORT ---
[facility] DES[facility] 10:25 pm CLINICAL HISTORY: CHEST PAIN COMPARISON: Chest Pa And Lat (2 Views) dated 07/21/2020; Chest Single View dated 10/18/2018; ABDOMEN ACUTE SERIES dated 01/29/2015; ABDOMEN 1 VIEW KUB dated 09/06/2014 TECHNIQUE: Portable AP view of the chest. FINDINGS: The lungs are clear. Rectangular osseous density overlying the posterior right eighth rib, may relate to rib fracture of indeterminate age or calcific lung nodule. I was not discretely visual ized on prior exam. No pneumothorax or effusion. The cardiomediastinal contours are unremarkable. IMPRESSION: No acute cardiopulmonary process. Sequelae of right eighth rib fracture versus calcific lung nodule as above.
--- NOTE | 2023-04-08 23:13 | ER ---
Nurse's Notes [facility] Name: Janice Bosch Age: 57 yrs Sex: Female : 1965 Arrival Date: 04/08/2023 Time: 20:22 Bed External Waiting Private MD: Davin Platt Diagnosis: Unspecified injury of head, initial encounter;Other peripheral vertigo Presentation: 04/08 20:36 Chief complaint: Patient states: I fell a couple of weeks ago and hurt my ribs. at the vc1 time that I fell I hit my head and every thing was fine. I fell again Tuesday night and I hit my head again. Now I can't even look side to side because I am so dizzy and the pain is so bad. Coronavirus screen: Vaccine status: Patient reports receiving the 2nd dose of the covid vaccine. plus one booster; Moderna Client denies travel out of the [place] in the last 14 days. At this time, the client does not indicate any symptoms associated with coronavirus-19. Ebola Screen: Patient negative for fever greater than or equal to 101.5 degrees Fahrenheit, and additional compatible Ebola Virus Disease symptoms Patient denies exposure to infectious person. Patient denies travel to an Ebola-affected area in the 21 days before illness onset. No symptoms or risks identified at this time. Risk Assessment: Do you want to hurt yourself or someone else? Patient reports no desire to harm self or others. Onset of symptoms is unknown. 20:36 Method Of Arrival: Wheelchair vc1 20:36 Acuity: BONITA 2 vc1 20:42 Initial Sepsis Screen: Does the patient meet any 2 criteria? No. Patient's initial vc1 sepsis screen is negative. Does the patient have a suspected source of infection? No. Patient's initial sepsis screen is negative. Triage Assessment: 20:44 General: Appears in no apparent distress. uncomfortable, slender, Behavior is vc1 cooperative, appropriate for age. Pain: Complains of pain in left parietal area, right parietal area and occipital area Pain does not radiate. Pain currently is 10 out of 10 on a pain scale. Also complains of inability to perform activities of daily living, dizziness. EENT: No deficits noted. No signs and/or symptoms were reported regarding the EENT system. Neuro: Magana Agitation-Sedation Scale (RASS): 0 - Alert and Calm Level of Consciousness is awake, obeys commands, Oriented to person, place, time, situation, Appropriate for age Reports dizziness, headache. Cardiovascular: No deficits noted. Respiratory: Airway is patent Respiratory effort is even, unlabored, Respiratory pattern is regular, symmetrical. GI: No deficits noted. No signs and/or symptoms were reported involving the gastrointestinal system. : No deficits noted. No signs and/or symptoms were reported regarding the genitourinary system. Derm: No deficits noted. No signs and/or symptoms reported regarding the dermatologic system. Musculoskeletal: No deficits noted. No signs and/or symptoms reported regarding the musculoskeletal system. Historical: - Allergies: 20:41 Reglan; vc1 20:41 Requip; vc1 - PMHx: 20:41 Bipolar disorder; bowel obstruction; Fibromyalgia; Hypertension; ibs; Migraines; vc1 - PSHx: 20:41 Appendectomy; section; Cholecystectomy; Gastric Bypass; hysterectomy; vc1 - Immunization history:: Client reports receiving the 2nd dose of the Covid vaccine. - Social history:: Smoking status: Patient denies any tobacco usage or history of. - Family history:: not pertinent. Screenin:00 [facility] ED Fall Risk Assessment (Adult) History of falling in the last 3 months, vc1 including since admission Yes- fall prone (multiple falls) (3 pts) Confusion or Disorientation No (0 pts) Intoxicated or Sedated No (0 pts) Impaired Gait Yes (1 pt) Mobility Assist Device Used No (0 pt) Altered Elimination Yes (1 pt) Score/Fall Risk Level 3 or more points = High Risk Oriented to surroundings, Maintained a safe environment, Educated pt \T\ family on fall prevention, incl call for assistance when getting out of bed. Abuse screen: Denies threats or abuse. Nutritional screening: No deficits noted. Tuberculosis screening: No symptoms or risk factors identified. Assessment: 22:00 Reassessment: No changes from previously documented assessment. Patient and/or family vc1 updated on plan of care and expected duration. Pain level reassessed. Patient is alert, oriented x 3, equal unlabored respirations, skin warm/dry/pink. Vital Signs: 20:42 BP 146 / 87; Pulse 88; Resp 15; Temp 98.8; Pulse Ox 100% ; Weight 56.7 kg; Height 5 ft. vc1 2 in. ; Pain 10/10; 22:01 BP 145 / 82; Pulse 77; Resp 15; Pulse Ox 100% ; vc1 22:45 BP 153 / 85; Pulse 86; Resp 15; Pulse Ox 98% ; vc1 20:42 Body Mass Index 22.86 (56.70 kg, 157.48 cm) vc1 20:42 Pain Scale: Adult vc1 ED Course: 20:24 Patient arrived in ED. mr 20:24 Davin Platt DO is Private Physician. mr 20:34 Dillon Arzola MD is Attending Physician. rt 20:41 Triage completed. vc1 20:41 Arm band placed on left wrist. vc1 21:30 CT Head C Spine In Process Unspecified. EDMS 21:51 Shaneka Marrufo, RN is Primary Nurse. vc1 22:00 Patient has correct armband on for positive identification. Bed in low position. Call vc1 light in reach. Client placed on continuous cardiac and pulse oximetry monitoring. NIBP monitoring applied. 22:17 Initial lab(s) drawn, by me, sent to lab. EKG done, by ED staff, reviewed by Dillon Arzola MD. Inserted saline lock: 22 gauge in left antecubital area, using aseptic technique. Blood collected. 22:18 Basic Metabolic Panel Sent. jw7 22:18 CBC with Diff Sent. jw7 22:18 LFT's Sent. jw7 22:18 Magnesium Sent. jw7 22:18 Troponin HS Sent. jw7 22:27 XRAY Chest (1 view) In Process Unspecified. EDMS 23:11 Davin Platt DO is Referral Physician. rt 23:31 No provider procedures requiring assistance completed. IV discontinued, intact, vc1 bleeding controlled, No redness/swelling at site. Pressure dressing applied. Administered Medications: 22:32 Drug: morphine IVP or IV 4 mg Route: IVP; Infused Over: 4 mins; Site: left antecubital; vc1 23:30 Follow up: Response: No adverse reaction; Marked relief of symptoms vc1 22:32 Drug: Ondansetron IVP 4 mg Route: IVP; Site: left antecubital; vc1 23:30 Follow up: Response: No adverse reaction; Marked relief of symptoms vc1 22:32 Drug: Meclizine PO 50 mg Route: PO; vc1 23:30 Follow up: Response: No adverse reaction; Marked relief of symptoms vc1 22:32 Drug: Magnesium Sulfate IVPB 2 grams Route: IVPB; Infused Over: 1 hrs; Site: left vc1 antecubital; 23:30 Follow up: IV Status: Completed infusion; IV Intake: 50ml vc1 22:32 Drug: NS 0.9% IV 1000 ml Route: IV; Rate: 1 bolus; Site: left antecubital; vc1 23:29 Follow up: IV Status: Completed infusion; IV Intake: 1000ml vc1 23:19 Drug: Diazepam PO 10 mg Route: PO; vc1 23:29 Follow up: Response: Medication administered at discharge. vc1 Medication: 23:31 VIS not applicable for this client. vc1 Intake: 23:29 IV: 1000ml; Total: 1000ml. vc1 23:30 IV: 50ml; Total: 1050ml. vc1 Outcome: 23:13 Discharge ordered by . rt 23:31 Discharged to home via wheelchair, with significant other. vc1 23:31 Condition: good 23:31 Discharge instructions given to patient, significant other, Instructed on discharge instructions, follow up and referral plans. medication usage, Demonstrated understanding of instructions, follow-up care, medications, Prescriptions given X 1. 23:31 Patient left the ED. vc1 Signatures: Dispatcher [employer] ANDRIY AngelJoanne armendariz Vanessa, RN RN vc1 Indu Tapia jw7 Dillon Arzola MD MD rt
--- NOTE | 2023-04-08 23:13 | EDPHYS ---
Physician Documentation [facility] Name: Janice Bosch Age: 57 yrs Sex: Female : 1965 Arrival Date: 04/08/2023 Time: 20:22 Bed External Waiting Private MD: Davin Platt ED Physician Dillon Arzola HPI: 04/08 23:16 This 57 yrs old Female presents to ER via Wheelchair with complaints of Head pressure, rt Dizziness. 23:16 Patient presents to the ED 1 week following a head injury. She states that she has had rt a headache described as a pressure since then. She states that whenever she would look to the left, she would develop with dizziness in which she fell like she was on a fan and spinning. This caused nausea and vomiting. She denies other acute complaints at this time. Symptoms are moderate severity, no other aggravating alleviating factors.. Historical: - Allergies: 20:41 Reglan; vc1 20:41 Requip; vc1 - PMHx: 20:41 Bipolar disorder; bowel obstruction; Fibromyalgia; Hypertension; ibs; Migraines; vc1 - PSHx: 20:41 Appendectomy; section; Cholecystectomy; Gastric Bypass; hysterectomy; vc1 - Immunization history:: Client reports receiving the 2nd dose of the Covid vaccine. - Social history:: Smoking status: Patient denies any tobacco usage or history of. - Family history:: not pertinent. ROS: 23:16 Constitutional: Negative for fever, chills, and weight loss, Cardiovascular: Negative rt for chest pain, palpitations, and edema, Respiratory: Negative for shortness of breath, cough, wheezing, and pleuritic chest pain, MS/Extremity: Negative for injury and deformity, Skin: Negative for injury, rash, and discoloration, Psych: Negative for depression, anxiety, suicide ideation, homicidal ideation, and hallucinations. 23:16 Abdomen/GI: Positive for nausea and vomiting, Negative for abdominal pain. 23:16 Neuro: Positive for dizziness, headache. Exam: 23:16 Constitutional: This is a well developed, well nourished patient who is awake, alert, rt and in no acute distress. Chest/axilla: Normal chest wall appearance and motion. Nontender with no deformity. No lesions are appreciated. Cardiovascular: Regular rate and rhythm with a normal S1 and S2. No gallops, murmurs, or rubs. Normal PMI, no JVD. No pulse deficits. Respiratory: Lungs have equal breath sounds bilaterally, clear to auscultation and percussion. No rales, rhonchi or wheezes noted. No increased work of breathing, no retractions or nasal flaring. Abdomen/GI: Soft, non-tender, with normal bowel sounds. No distension or tympany. No guarding or rebound. No evidence of tenderness throughout. Skin: Warm, dry with normal turgor. Normal color with no rashes, no lesions, and no evidence of cellulitis. MS/ Extremity: Pulses equal, no cyanosis. Neurovascular intact. Full, normal range of motion. Neuro: Awake and alert, GCS 15, oriented to person, place, time, and situation. Cranial nerves II-XII grossly intact. Motor strength 5/5 in all extremities. Sensory grossly intact. Cerebellar exam normal. Normal gait. Psych: Awake, alert, with orientation to person, place and time. Behavior, mood, and affect are within normal limits. 23:16 ECG was reviewed by the Attending Physician. Vital Signs: 20:42 BP 146 / 87; Pulse 88; Resp 15; Temp 98.8; Pulse Ox 100% ; Weight 56.7 kg; Height 5 ft. vc1 2 in. ; Pain 10/10; 22:01 BP 145 / 82; Pulse 77; Resp 15; Pulse Ox 100% ; vc1 22:45 BP 153 / 85; Pulse 86; Resp 15; Pulse Ox 98% ; vc1 20:42 Body Mass Index 22.86 (56.70 kg, 157.48 cm) vc1 20:42 Pain Scale: Adult vc1 MDM: 20:38 Patient medically screened. rt 23:18 Differential diagnosis: vertigo, Intracranial hemorrhage, concussion, migraine rt headache. Data reviewed: vital signs, nurses notes. I considered the following discharge prescriptions or medication management in the emergency department Medications were administered in the Emergency Department. See MAR. Independent interpretation of the following test(s) in the Emergency Department CT Scan: My interpretation is No hemorrhage seen on interpretation of CT scan images. Test considered but Not performed: MRI: No focal deficits, CT unremarkable, very low suspicion for ischemic stroke, MRI not indicated. Care significantly affected by the following chronic conditions: Hypertension. Counseling: I had a detailed discussion with the patient and/or guardian regarding: the historical points, exam findings, and any diagnostic results supporting the discharge/admit diagnosis, the presence of at least one elevated blood pressure reading (>120/80) during this emergency department visit, lab results, radiology results, the need for outpatient follow up. Response to treatment: the patient's symptoms have markedly improved after treatment. 04/08 20:45 Order name: Basic Metabolic Panel; Complete Time: 22:43 rt 04/08 20:45 Order name: CBC with Diff; Complete Time: 22:43 rt 04/08 20:45 Order name: LFT's; Complete Time: 22:43 rt 04/08 20:45 Order name: Magnesium; Complete Time: 22:43 rt 04/08 20:45 Order name: Troponin HS; Complete Time: 22:43 rt 04/08 20:45 Order name: CT Head C Spine; Complete Time: 22:43 rt 04/08 20:45 Order name: XRAY Chest (1 view); Complete Time: 22:43 rt 04/08 20:45 Order name: EKG; Complete Time: 20:47 rt 04/08 20:45 Order name: Cardiac monitoring; Complete Time: 22:18 rt 04/08 20:45 Order name: EKG - Nurse/Tech; Complete Time: 22:18 rt 04/08 20:45 Order name: IV Saline Lock; Complete Time: 22:18 rt 04/08 20:45 Order name: Labs collected and sent; Complete Time: 22:18 rt 04/08 20:45 Order name: O2 Per Protocol; Complete Time: 22:18 rt 04/08 20:45 Order name: O2 Sat Monitoring; Complete Time: 22:18 rt EC:16 Rate is 71 beats/min. Rhythm is regular, Normal Sinus Rhythm with No ectopy. Left axis rt deviation noted. AR interval is normal. QRS interval is normal. QT interval is normal. No Q waves. T waves are Normal. No ST changes noted. Interpreted by me. Administered Medications: 22:32 Drug: morphine IVP or IV 4 mg Route: IVP; Infused Over: 4 mins; Site: left antecubital; vc1 23:30 Follow up: Response: No adverse reaction; Marked relief of symptoms vc1 22:32 Drug: Ondansetron IVP 4 mg Route: IVP; Site: left antecubital; vc1 23:30 Follow up: Response: No adverse reaction; Marked relief of symptoms vc1 22:32 Drug: Meclizine PO 50 mg Route: PO; vc1 23:30 Follow up: Response: No adverse reaction; Marked relief of symptoms vc1 22:32 Drug: Magnesium Sulfate IVPB 2 grams Route: IVPB; Infused Over: 1 hrs; Site: left vc1 antecubital; 23:30 Follow up: IV Status: Completed infusion; IV Intake: 50ml vc1 22:32 Drug: NS 0.9% IV 1000 ml Route: IV; Rate: 1 bolus; Site: left antecubital; vc1 23:29 Follow up: IV Status: Completed infusion; IV Intake: 1000ml vc1 23:19 Drug: Diazepam PO 10 mg Route: PO; vc1 23:29 Follow up: Response: Medication administered at discharge. vc1 Disposition Summary: 04/08/23 23:13 Discharge Ordered Location: Home rt Problem: new rt Symptoms: have improved rt Condition: Stable rt Diagnosis - Unspecified injury of head, initial encounter rt - Other peripheral vertigo rt Followup: rt - With: Davin Platt, DO - When: 2 - 3 days - Reason: Discharge Instructions: - Discharge Summary Sheet rt - Head Injury, Adult rt - Vertigo rt Forms: - Medication Reconciliation Form rt - Thank You Letter rt - Antibiotic Education rt - Prescription Opioid Use rt - [email or web address] rt Prescriptions: - Meclizine 25 mg Oral Tablet - take 1 tablet by ORAL route every 8 hours As needed; 30 tablet; Refills: 0, rt Product Selection Permitted Signatures: Dispatcher [employer] Shaneka Wiseman RN RN vc1 Dillon Arzola MD MD rt
[2023-04-08] MEDS ORDERED: DIAZEPAM 5 MG TABLET ONE (23:25)
[2023-04-09 01:32] VITALS: TEMP 98.8
[2023-04-09 01:34] VITALS: BP 153/85; O2SAT 98
--- NOTE | 2023-04-09 16:17 | EKG ---
Test Date: 2023-04-08 Test Time: 22:03:09 Nurse Head: BEATRIS MEASUREMENT RESULTS: Intervals: Rate: 71 LA: 126 QRSD: 86 QT: 430 QTc: 467 Emerson: P: -8 LA: 126 QRS: -38 T: 56 INTERPRETIVE STATEMENTS: Normal sinus rhythm Left axis deviation Abnormal ECG Compared to ECG 03/20/2023 10:23:33 Left-axis deviation now present Left anterior fascicular block no longer present Electronically Signed On 04-09-23 16:16:09 CDT by Lee Braga
== END 2023-04-08 23:31 | disposition home or self-care (01) ==
LOC: ER 20:22
DX: H81.399 Other peripheral vertigo, unspecified ear (principal); R11.2 Nausea with vomiting, unspecified; I10 Essential (primary) hypertension; Z88.8 Allergy status to other drugs, medicaments and biological substances
CPT/HCPCS: 96365; 93005; 85025; 80048; 36415; 83735; 80076; 84484; 70450; 72125; 71045; 96375; 99285; J8597; J3475; J2405; J7030

== ENCOUNTER 2023-04-13 10:06 | Observation (INO) | payer MEDICARE ==
--- OUTSIDE RECORDS SUMMARY | 2023-04-13 10:19 | XMS REPORT | Continuity of Care Document ---
:1965 Author Organization [facility] t Address [address] [place] [address] [address] [place] [address] Care Team Providers Name Role Phone GLORIA PLATT Primary Care Physician Unavailable Gloria Platt Attending Clinician Unavailable Marla La Attending Clinician Melissa Dunham Attending Clinician Unavailable Jorge A Attending Clinician Unavailable SHAN SANTANA Attending Clinician Unavailable Shan Santana MD Attending Clinician Doctor Unassigned, [place] Attending Clinician Unavailable Almita Moore MA Attending Clinician Unavailable SCAR OJEDA Attending Clinician Unavailable NILAY LENNON Attending Clinician Unavailable Nilay Lennon DO Attending Clinician Spike Puri RN Attending Clinician Unavailable JESUS MORA Attending Clinician Unavailable Hill Piña Attending Clinician Pauly Tanner Attending Clinician Herbie Olvera MD Attending Clinician Jesus Mora DO Attending Clinician Abdirizak Krueger MD Attending Clinician [phone] ABDIRIZAK KRUEGER Attending Clinician Unavailable CARLTON [...] Policy Number Effective Date Expiration Date S [facility] 2022 (MEDICARE 00:00:00 REPLACEMENT HMO) [employer] [id number] 2020spring 00:00:[facility] [id number] 2018 Common g Medicare 00:00:00 Spirit - [facility] Replace [facility] Problems Condition Condition Condition Status Onset Resolution Last Treating Co mments Source Name Details Category Date Date Treatment Clinician Date Abdominal Abdominal Disease Active Uni vers pain, pain, 9-14 ity [place]spec[place] Medical abdominal abdominal Bran ch location location Small Small Disease Recurre [facility] bowel bowel nce 06-26 [facility] obstructio obstructio 00:00: Me dical n n 00 Center Pancreatit Pancreatit Disease Active C HI St is is 06-25 [facility] 00:00: Medical 00 Center Perimenopa Post Problem Commo n usal hysterecto Spirit disorder my - CHI menopause [facility] Chronic Stage 3b Problem Common kidney chronic Spirit disease kidney - CHI stage 3B disease St (disorder) [facility] Mixed Depression Problem Commo n anxiety with Spirit and anxiety - CHI depressive disorder [facility] Benign Benign Problem Common essential essential Spir it hypertensi hypertensi - CHI on on [facility] Bipolar Bipolar Problem Common disorder disorder Spirit - [facility] Solitary Solitary Problem Commo n cyst of cyst of Spirit breast left - CHI breast [facility] [id number] Irritable Problem Comm on bowel Spirit syndrome, - CHI unspecifie [facility] Migraine Migraine Problem Commo n without without Spirit aura, not aura and - CHI refractory without [facility] migrainosu Medica l s, not Center intractabl e [id number] Mixed Problem Common hyperlipid [facility] emia [facility] [id number] Nausea Problem Common Spirit [facility] [id number] Fibromyalg Problem Co mmon ia Spirit [facility] [id number] Hemorrhoid Problem Com mon s, Spirit unspecifie - CHI d hemorrhoid [facility] Pain in Left wrist Problem Comm on wrist pain [facility] [id number] Back pain Problem Com mon with Spirit left-sided - CHI radiculopa [facility] [id number] History of Problem Co mmon intussusce Spirit ption [facility] [id number] Constipati Problem Com mon on, Spirit unspecifie - CHI d constipati [facility] [id number] GERD Problem Common without Spirit esophagiti - CHI s [facility] [id number] Subclinica Problem Com mon l Spirit hypothyroi - CHI dism [facility] [id number] +5th digit Problem Co mmon eff Spirit 07/03/20*CK - CHI D (chronic kidney [facility] disease) Medical stage 3, Center GFR 30-59 ml/min Right Abdominal Problem Common upper pain, RUQ Spirit quadrant - CHI pain [facility] No known No known Disease Unive rs active active ity of problems problems [facility] Allergies, Adverse Reactions, Alerts Allergy Allergy Status Severity Reaction(s) Onset Inactive Treating Comm ents Source Name Type Date Date Clinician METOCLOP DRUG Active Anxiety 2020-10 Univers RAMIDE INGREDI 10-19 ity of 00:00: [address] Branch ROPINIRO DRUG Active N/V 2020-10 Univers LE INGREDI 10-19 ity of 00:00: [address] Metoclop Propensi Active Anxiety 2020-10 Unive rs ramide ty to 10-19 ity of adverse 00:00: [place] reaction 00 Medical Branch Ropiniro Propensi Active Nausea 2020-10 Univer s le ty to and/or 1-17 ity of adverse Vomiting 00:00: [place] reaction 00 Medical s Branch METOCLOP Allergy Active [facility] RAMIDE 9-23 [facility] 00:[facility]: Medical 00 Center ROPINIRO Allergy Active [facility] LE 9-23 [facility] 00:00: Medical 00 Center Metoclop Propensi Active [facility] ramide ty to 9-23 [facility] adverse 00:00: Medical reaction 00 Center s Ropiniro Propensi Active [facility] le ty to 9-23 [facility] adverse 00:00: Medical reaction 00 [place] s Hydrochl Propensi Active Other - See 2016-10 Weak U nivers orothiaz ty to comments 0-10 ity of noel adverse 00:00: [place] reaction 00 [facility] HYDROCHL DRUG Active High Other-Cmnt 2016-10 Univ ers OROTHIAZ INGREDI 0-10 ity of NOEL 00:00: [place] 00 [facility] metoclop metoclop Active Unknown Commo n ramide ramide Spirit - [facility] 5921 Drug Active Unknown Common allergy [facility] Social History Social Habit Start Date Stop Date Quantity Comments Source History of Common Spirit - Tobacco Use [facility] History SDOH [facility] Alcohol Std Medical Cente r Drinks History SDOH [facility] Alcohol Binge Medical Bruna ter Exposure to 2022-09-13 2022-09-23 Not sure [facility] SARS-CoV-2 00:00:00 14:14:00 [facility] (event) Branch Education 2022-06-16 2022-06-16 21 University of 00:00:00 00:00:00 [facility] Alcohol intake 2022-04-14 2022-04-[address] J[facility] es 00:00:00 00:00:00 non-drinker of Medical Ce nter alcohol (finding) Tobacco use and 2019-06-25 2019-06-25 Smokeless tobacco [facility] exposure 00:00:00 00:00:00 non-user Medical Center History SDOH 2019-06-25 2019-06-[address] [facility] Alcohol Frequency 00:00:00 00:00:00 Medical Center Sex [birth year] At [birth year] ADELAIDE [place] 00:00:00 00:00:00 Medical Center Smoking Status Start Date Stop Date Source Never smoked tobacco [facility] Medications Ordered Filled Start Stop Current [...] dose, On Medica l tablet 1 Tue [place] tablet 07/26/22 at 1545, Routine methocarbam 2021-10 No 1000mg 1,000 mg, Univers oL 0-24 -24 Oral, ity of (ROBAXIN) 17:45: 18:58 ONCE, 1 [place] tablet 00 :00 dose, On Medical 1,000 mg [facility] Branch 07/26/22 at 1245, RUBEN naproxen 2021-10 Yes [id number] 550mg Take 1 Univers sodium 550 0-24 [id number] tablet by it y of mg tablet 00:00: mouth [place] Medical morning Branch and 1 tablet in the evening. Take with meals. methylPREDN 2021-10 Yes [id number] Take by Univers ISolone 4 0-24 [id number] mouth ity of mg tablets 00:00: [place]INSTRU [place] 00 CTIONS. Medical follow Branch package directions naproxen 2021-10 Yes [id number] 550mg Take 1 Univers sodium 550 0-24 [id number] tablet by it y of mg tablet 00:00: [place] 00 the Medical morning Branch and 1 tablet in the evening. Take with meals. methylPREDN 2021-10 Yes [id number] Take by Univers ISolone 4 0-24 [id number] mouth ity of mg tablets 00:00: [place]-INSTRU [place] 00 CTIONS. Medical follow Branch package directions naproxen 2021-10 Yes [id number] 550mg Take 1 Univers sodium 550 0-24 [id number] tablet by it y of mg tablet 00:00: [place] 00 the Medical morning Branch and 1 tablet in the evening. Take with meals. methylPREDN 2021-10 Yes [id number] Take by Univers ISolone 4 0-24 [id number] mouth ity of mg tablets 00:00: [place]-INSTRU [place] 00 CTIONS. Medical follow Branch package directions methocarbam 2021-10- No [id number] 500mg Take 1 Univers oL 500 mg 008-01 [id number] tablet by it y of tablet 00:00: 04:59 mouth in [place] 00 :00 the Medical morning Branch and 1 tablet at noon and 1 tablet in the evening. Do all this for 5 days. lidocaine 5 2021-10- No [id number] 1{patch Apply 1 Univers % (700 007-27 [id number] } Patch to ity of mg/patch) 00:00: [...] by mouth ity of capsule 12:24: daily. [place] [address] Medical Branch PANTOPRAZOL 0 Yes 40mg Take 40 mg Univers E SODIUM 9-19 by mouth. ity of (PROTONIX 12:24: [place] ORAL) 20 Medical Branch tiZANidine 0 Yes 4mg Take 4 mg Un henry 4 mg 9-19 by mouth 2 ity of capsule 12:24: (two) [place] 20 times Medical daily. Branch IRON &IRON 0 Yes Take by Univ ers ASP 9-19 mouth. ity of GLY-FA-MV,M 12:24: Indication [place] IN38 ORAL 20 s: iron Medical injectio Branch once a month propranolol 2021-0 Yes 20mg Take 20 mg Univers 20 mg 9-19 by mouth ity of tablet 12:24: daily. [place] 20 Medical Branch levothyroxi 0 Yes 50ug [...] by ity of tablet 12:24: mouth at [place] 20 bedtime as Medical needed for Branch Sleep. buspirone 0 Yes 5mg Take 5 mg Uni vers HCl 9-19 by mouth ity of (BUSPIRONE 12:24: as needed. [place] ORAL) 20 Medical Branch LORazepam 0 Yes .5mg Take 0.5 Univ ers 0.5 mg 9-19 mg by ity of tablet 12:24: mouth as [place] [address] needed. Medical Branch venlafaxine 0 Yes 75mg Take 75 mg Univers XR 75 mg 24 9-19 by mouth ity of hr capsule 12:24: daily with [place] 20 breakfast. Medical Branch lamoTRIgine 0 Yes 200mg Take 200 U nivers 200 mg 9-19 mg by ity of tablet 12:24: mouth in [place] 20 the Medical morning. Branch gabapentin 0 Yes 300mg Take 300 Un henry 300 mg 9-19 mg by ity of capsule 12:24: mouth 3 [place] 20 (three) Medical times Branch daily. Indication s: 1 in the Am and 4 at bed time ziprasidone 2021-0 Yes 60mg Take 60 mg Univers 60 mg 9-19 by mouth ity of capsule 12:24: daily. [place] [address] Medical Branch PANTOPRAZOL 0 Yes 40mg Take [...] by mouth ity of tablet 12:24: daily. [place] [address] Medical Branch levothyroxi 0 Yes 50ug Take 50 Uni vers ne 50 mcg 9-19 mcg by ity of tablet 12:24: mouth [place] 20 every Medical morning. Branch hydrOXYzine 2021-0 Yes 50mg Take 50 mg Univers 50 mg 9-19 by mouth ity of tablet 12:24: in the [place] 20 morning Medical and 50 mg Branch in the evening. zolpidem 2021-0 Yes 12.5mg Take 12.5 Un henry 12.5 mg CR 9-19 mg by ity of tablet 12:24: mouth at [place] [address] bedtime as Medical needed for Branch Sleep. buspirone 2021-0 Yes 5mg Take 5 mg Uni vers HCl -19 by mouth ity of (BUSPIRONE 12:24: as needed. [place] ORAL) 20 Medical Branch LORazepam 2021-0 Yes .5mg Take 0.5 Univ ers 0.5 mg 9-19 mg by ity of tablet 12:24: mouth as [place] [address] needed. Medical Branch venlafaxine 2021-0 Yes 75mg Take 75 mg Univers XR 75 mg 24 06-21 by mouth ity of hr capsule 12:24: daily with [place] 20 breakfast. Medical Branch lamoTRIgine 2021-0 Yes 200mg Take 200 U nivers 200 mg 9-19 mg by ity of tablet 12:24: mouth in [place] 20 the Medical morning. Branch gabapentin 2021-0 Yes 300mg Take 300 Un henry 300 mg 9-19 mg by ity of capsule 12:24: mouth 3 [place] 20 (three) Medical times Branch daily. Indication s: 1 in the Am and 4 at bed time ziprasidone 2021-0 Yes 60mg Take 60 mg Univers 60 mg 9-19 by mouth ity of capsule 12:24: daily. [place] 20 Medical Branch PANTOPRAZOL 2021-0 Yes 40mg [...] by mouth ity of tablet 12:24: daily. [place] [address] Medical Branch levothyroxi 0 Yes 50ug Take 50 Uni vers ne 50 mcg 9-19 mcg by ity of tablet 12:24: mouth [place] 20 every Medical morning. Branch hydrOXYzine 0 Yes 50mg Take 50 mg Univers 50 mg 9-19 by mouth ity of tablet 12:24: in the [place] 20 morning Medical and 50 mg Branch in the evening. zolpidem 0 Yes 12.5mg Take 12.5 Un henry 12.5 mg CR 9-19 mg by ity of tablet 12:24: mouth at [place] [address] bedtime as Medical needed for Branch Sleep. buspirone 0 Yes 5mg Take 5 mg Uni vers HCl 9-19 by mouth ity of (BUSPIRONE 12:24: as needed. [place] ORAL) 20 Medical Branch LORazepam 0 Yes .5mg Take 0.5 Univ ers 0.5 mg 9-19 mg by ity of tablet 12:24: mouth as [place] [address] needed. Medical Branch venlafaxine 0 Yes 75mg Take 75 mg Univers XR 75 mg 24 9-19 by mouth ity of hr capsule 12:24: daily with [place] 20 breakfast. Medical Branch lamoTRIgine 0 Yes 200mg Take 200 U nivers 200 mg 9-19 mg by ity of tablet 12:24: mouth in [place] 20 the Medical morning. Branch gabapentin 0 Yes 300mg Take 300 Un henry 300 mg 9-19 mg by ity of capsule 12:24: mouth 3 [place] 20 (three) Medical times Branch daily. Indication s: 1 in the Am and 4 at bed time ziprasidone 2021-0 Yes 60mg Take 60 mg Univers 60 mg 9-19 by mouth ity of capsule 12:24: daily. [place] [address] Medical Branch PANTOPRAZOL 0 Yes 40mg Take [...] by mouth ity of tablet 12:24: daily. [place] [address] Medical Branch levothyroxi 2021-0 Yes 50ug Take 50 Uni vers ne 50 mcg 9-19 mcg by ity of tablet 12:24: mouth [place] [address] every Medical morning. Branch hydrOXYzine 0 Yes 50mg Take 50 mg Univers 50 mg 9-19 by mouth ity of tablet 12:24: in the [place] 20 morning Medical and 50 mg Branch in the evening. zolpidem 2021-0 Yes 12.5mg Take 12.5 Un henry 12.5 mg CR 9-19 mg by ity of tablet 12:24: mouth at [place] [address] bedtime as Medical needed for Branch Sleep. buspirone 2021-0 Yes 5mg Take 5 mg Uni vers HCl 9-19 by mouth ity of (BUSPIRONE 12:24: as needed. [place] ORAL) 20 Medical Branch LORazepam 2021-0 Yes .5mg Take 0.5 Univ ers 0.5 mg 9-19 mg by ity of tablet 12:24: mouth as [place] [address] needed. Medical Branch venlafaxine 0 Yes 75mg Take 75 mg Univers XR 75 mg 24 9-19 by mouth ity of hr capsule 12:24: daily with [place] 20 breakfast. Medical Branch lamoTRIgine 2021-0 Yes 200mg Take 200 U nivers 200 mg 9-19 mg by ity of tablet 12:24: mouth in [place] 20 the Medical morning. Branch gabapentin 2021-0 Yes 300mg Take 300 Un henry 300 mg 9-19 mg by ity of capsule 12:24: mouth 3 [place] 20 (three) Medical times Branch daily. Indication s: 1 in the Am and 4 at bed time ziprasidone 2021-0 Yes 60mg Take 60 mg Univers 60 mg 9-19 by mouth ity of capsule 12:24: daily. [place] [address] Medical Branch PANTOPRAZOL 2021-0 Yes 40mg Take [...] by mouth ity of tablet 12:24: daily. [place] 20 Medical Branch levothyroxi 0 Yes 50ug Take 50 Uni vers ne 50 mcg 9-19 mcg by ity of tablet 12:24: mouth [place] 20 every Medical morning. Branch hydrOXYzine 0 Yes 50mg Take 50 mg Univers 50 mg 9-19 by mouth ity of tablet 12:24: in the [place] 20 morning Medical and 50 mg Branch in the evening. zolpidem Yes 12.5mg Take 12.5 Un henry 12.5 mg CR 9-19 mg by ity of tablet 12:24: mouth at [place] 20 bedtime as Medical needed for Branch Sleep. buspirone 0 Yes 5mg Take 5 mg Uni vers HCl 9-19 by mouth ity of (BUSPIRONE 12:24: as needed. [place] ORAL) 20 Medical Branch LORazepam Yes .5mg Take 0.5 Univ ers 0.5 mg 9-19 mg by ity of tablet 12:24: mouth as [place] [address] needed. Medical Branch venlafaxine Yes 75mg Take 75 mg Univers XR 75 mg 24 06-21 by mouth ity of hr capsule 12:24: daily with [place] 20 breakfast. Medical Branch lamoTRIgine 0 Yes 200mg Take 200 U nivers 200 mg 9-19 mg by ity of tablet 12:24: mouth in [place] 20 the Medical morning. Branch FLUoxetine 2021-0 2021- No 40mg Take 40 mg Univers 40 mg 06-21 by mouth ity of capsule 11:03: 00:00 daily. [place] 56 :00 Medical Branch DICLOFENAC 2021-0 2021- [...] carlos 1:1:1 [place] Branch (FIRST-MOUT 06/17/22 at [facility]) 2100, oral Routine suspension 15 mL HYDROcodone 0 Yes 1{tbl} 1 tablet, Univers -acetaminop 06-18 Oral, ity of hen (NORCO 01:00: Q6HPRN, [place] 5) 5-325 mg 34 Starting Medi carlos tablet 1 on [facility] Branch tablet 06/17/22 at 2000, Until [...] :00 dose, On Medi carlos 1:1:1 [facility] Branch (FIRST-MOUT 06/17/22 at [facility]) 1045, oral Routine suspension 15 mL pantoprazol [...] mg 00 First dose Medical on [facility] Branch 06/17/22 at 0900, Until Discontinu [...] mg 13:00: First dose [place] 00 on [facility] Medical 06/17/22 at Branch 0800, Until Discontinu ed propranoloL 0 Yes 20mg 20 mg, Univ ers (INDERAL) 15 Oral, BID, ity of tablet 20 13:00: [place] dose [place] mg 00 on [facility] 06/17/22 at Branch 0800, Until Discontinu ed, Routine heparin 0 Yes 5000U 5,000 Univers (porcine) 15 Units, ity of injection 13:00: Subcutaneo [place] 5,000 Units 00 us, Q12H, Med ical First dose Branch on [facility] 06/17/22 at 0800, Until Discontinu ed, Routine levothyroxi Yes 50ug 50 mcg, Uni vers ne 06-17 Oral, ity of (SYNTHROID) 11:00: QAM-0600, [place] tablet 50 00 First dose Medi carlos mcg on [facility] 06/17/22 at 0600, Until Discontinu ed, Routine ziprasidone Yes 120mg 120 mg, Un henry (GEODON) 06-17 Oral, QHS, ity o f capsule 120 08:30: First dose [place] mg 00 on [facility] 06/17/22 at Branch 0330, Until Discontinu ed, Routine NaCl 0.9% 2021- No 1000mL at 100 Uni vers (NS) IV 06-17 09-17 mL/hr, IV ity of infusion 07:15: 22:39 Infusion, [place] as 1,000 mL 00 :15 CONTINUOUS Medic al , Starting Branch on [facility] 06/17/22 at 0215, Until 06/19/22 at 1739, Routine NaCl 0.9% 2021- No 1000mL at 999 Uni vers (NS) bolus 06-17 09-15 mL/hr, ity of infusion 07:15: 07:48 1,000 mL, [place] as 1,000 mL 00 :04 IV Medical Piggyback, Branch ONCE, 1 dose, On [facility] 06/17/22 at 0215, RUBEN gabapentin 0 Yes 300mg 300 mg, Uni vers (NEURONTIN) 15 Oral, TID, it y of capsule 300 06:30: First dose [place] mg 00 on [facility] 06/17/22 at Branch 0130, Until Discontinu [...] [place] mg 39 Starting Medical on [facility] Branch 06/17/22 at 0118, Until Discontinu ed, Insomnia LORazepam 2021-0 Yes .5mg 0.5 mg, Unive rs (ATIVAN) 15 Oral, ity of tablet 0.5 06:16: BIDPRN, [place] mg 51 Starting Medical on [facility] Branch 06/17/22 at 0116, Until Discontinu ed, Routine, Agitation sennosides 0 Yes 8.6mg 8.6 mg, Uni vers (SENOKOT) 15 Oral, BID, ity of tablet 8.6 06:15: First dose [place] mg 00 on [facility] Medical 06/17/22 at Branch 0115, Until Discontinu ed, Routine docusate 0 Yes 100mg 100 mg, Unive rs (COLACE) 15 Oral, BID, ity o f capsule 100 06:15: First dose [place] mg 00 on [facility] Medical 06/17/22 at Branch 0115, Until Discontinu [...] 06/16/22 at 2115, STAT iopamidol 2021- No [id number] 70mL 70 mL, U nivers (ISOVUE 06-17 [...] Medical Infusion, Branch ONCE, 1 dose, On [facility] 06/16/22 at 1900, STAT ibuprofen 2021- [...] needed for Anxiety. gabapentin 0 Yes 600mg Q.[id number] Take [address] (NEURONTIN) 7-13 [id number] mg by L ukes 600 MG 13:36: [...] at Medical capsule 47 bedtime. Center clonazePAM 2021-0 Yes .5mg Take 0.[address] (KLONOPIN) 7-13 mg by [facility]ukes 0.5 MG 13:36: mouth 2 Medical tablet 47 (two) Center times daily as needed for Anxiety. gabapentin 2021-0 Yes 600mg Q.[id number] Take [address] (NEURONTIN) 7-13 [id number] mg by L ukes 600 MG 13:36: [...] 13:36: nightly. Me dical 47 Center buPROPion 2021-0 Yes 150mg QD Take [address] (WELLBUTRIN 7-13 mg by Lukes XL) 150 MG 13:36: mouth Medica l 24 hr 47 daily. Center tablet levothyroxi 2021-0 Yes 50ug Take [address] ne 7-13 mcg by Lukes (SYNTHROID, 13:36: mouth Medic al LEVOTHROID) 47 Every Center 50 MCG morning on tablet an empty stomach. hydrOXYzine 2021-0 Yes 50mg Take [address] (VISTARIL) 7-13 by mouth Lukes 50 MG 13:36: once at Medical capsule 47 bedtime. Center clonazePAM 2021-0 Yes .5mg Take 0.[address] (KLONOPIN) 7-13 mg by Lukes 0.5 MG 13:36: mouth 2 Medical tablet 47 (two) Center times daily as needed for Anxiety. gabapentin 2021-0 Yes 600mg Q.[id number] Take [address] (NEURONTIN) 7-13 [id number] mg by L ukes 600 MG 13:36: 3D mouth 3 Medical tablet 47 (three) Center times daily. ziprasidone 2021-0 Yes 120mg QD Take [address] (GEODON) 60 7-13 mg by Lukes MG capsule 13:36: mouth Medica l 47 nightly . Center propranolol 2021-0 Yes 10mg Q.5D Take 10 mg CHI [...] morning on tablet an empty stomach. hydrOXYzine 2021-0 Yes 50mg Take [address] (VISTARIL) 7-13 by mouth Lukes 50 MG 13:36: once at Medical capsule 47 bedtime. Center LORazepam 2021-0 Yes .5mg Take 0.[address] (ATIVAN) 6-16 mg by Lukes 0.5 MG 00:00: mouth 2 Medical tablet 00 (two) Center times daily as needed. LORazepam 2021-0 Yes .5mg Take 0.[address] (ATIVAN) [...] 3-23 Lukes mg tablet 00:00: Medical 00 [place] zolpidem Yes [facility] (AMBIEN) 10 3-23 [facility]ukes mg tablet 00:00: Medical 00 [place] zolpidem Yes [facility] (AMBIEN) 10 3-23 Lukes mg tablet 00:00: Medical 00 [place] lamoTRIgine Yes [facility] (LaMICtal) 3-15 [facility]ukes 200 MG 00:00: Medical tablet 00 [place] lamoTRIgine Yes [facility] (LaMICtal) 3-15 [facility] 200 MG 00:00: Medical tablet 00 [place] lamoTRIgine Yes [facility] (LaMICtal) 3-15 [facility] 200 MG 00:00: Medical tablet 00 [place] venlafaxine Yes [facility] (EFFEXOR) 3-04 [facility] 75 MG 00:00: Medical tablet 00 [place] venlafaxine Yes [facility] (EFFEXOR) 3-04 [facility] 75 MG 00:00: Medical tablet 00 [place] venlafaxine Yes [facility] (EFFEXOR) 3-04 [facility] 75 MG 00:00: Medical tablet 00 [place] iopamidol 2021- No [id number] 100mL 100 mL, Univers (ISOVUE 10-16 Intravenou ity o f 370-500 mL) 21:47: 21:46 s, ONCE, 1 [place] injection 00 :00 dose, On Medica l 100 mL Fri Branch 10/16/21 at 1600, Routine water for 2020-10 Yes PRN, Univers irrigation 2-21 Starting ity o f irrigation 17:03: on e [place] solution 00 09/22/21 Medical at 1103, Branch Until Discontinu ed, Routine, Intra-op simethicone 2020-10 Yes PRN, Univer s (GAS RELIEF - Starting ity of (SIMETHICON 17:03: on Tue [place] E)) 40 00 09/22/21 Medical mg/0.6 mL at 1103, Branch drops Until Discontinu ed, Routine, Intra-op water for 2020-10- No PRN, Univers irrigation 11-23 Starting ity of irrigation 17:03: 20:23 on Tue [place] solution 00 :39 09/22/21 Medical at 1103, Branch Until Tue09/22/21 at 1423, Routine, Intra-op simethicone 2020-10- No PRN, Unive rs (GAS RELIEF 11-23 Starting ity of (SIMETHICON 17:03: 20:23 on Tue [place] E)) 40 00 :39 09/22/21 Medical mg/0.6 mL at 1103, Branch drops Until Tue09/22/21 at 1423, Routine, Intra-op lactated 2020-10- No 1000mL at 42 [facility] rs ringers IV 2- 12-21 mL/hr, ity of infusion 16:45: 16:47 1,000 mL, [place] 1,000 mL 00 :00 IV Medical Infusion, Branch ONCE, 1 dose, On Tue09/22/21 at 1045, Routine, DSU Pre-op lactated 2020-10- No 1000mL at 42 [facility] rs ringers IV 2- 12-21 mL/hr, ity of infusion 16:45: 16:47 1,000 mL, [place] 1,000 mL 00 :00 IV Medical Infusion, Branch ONCE, 1 dose, On Tue09/22/21 at 1045, Routine, DSU Pre-op FLUoxetine 2020-10 Yes 40mg Take 40 mg U nivers (PROZAC) 40 2-21 by mouth ity of mg capsule 12:23: daily. [place] [address] Medical Branch gabapentin 2020-10 Yes 300mg Take 300 Un henry 300 mg 2-21 mg by ity of capsule 12:23: mouth 3 [place] 30 (three) Medical times Branch daily. Indication s: 1 in the Am and 4 at bed time ziprasidone 2020-10 Yes 60mg Take 60 mg Univers (GEODON) 60 2-21 by mouth ity of mg capsule 12:23: daily. [address] PANTOPRAZOL 2020-10 Yes 40mg Take 40 mg Univers E SODIUM 2-21 by mouth. ity of (PROTONIX 12:23: [place] ORAL) Medical Branch tiZANidine 2020-10 Yes 4mg Take 4 mg Un henry (ZANAFLEX) 2-21 by mouth 2 ity of 4 mg 12:23: (two) [place] capsule 30 times Medical daily. Branch IRON &IRON 2020-10 Yes Take by [facility] ers ASP 2-21 mouth. ity of GLY-FA-MV,M 12:23: Indication [place] IN38 ORAL 30 s: iron Medical injectio Branch once a month DICLOFENAC 2020-10 Yes Take 50 mg U nivers POTASSIUM 2-21 base by ity of (CAMBIA 12:23: mouth. [facility]) Medical Branch propranolol 2020-10 Yes 20mg Take 20 mg Univers 20 mg 2-21 by mouth ity of tablet 12:23: daily. [address] FLUoxetine 2020-10 Yes 40mg Take 40 mg U nivers (PROZAC) 40 2-21 by mouth ity of mg capsule 12:23: daily. [address] gabapentin 2020-10 Yes 300mg Take 300 Un henry 300 mg 2-21 mg by ity of capsule 12:23: mouth [address] [place] [address] (three) Medical times Branch daily. Indication s: 1 in the Am and 4 at bed time ziprasidone 2020-10 Yes 60mg Take 60 mg Univers (GEODON) 60 2-21 by mouth ity of mg capsule 12:23: daily. [address] PANTOPRAZOL 2020-10 Yes 40mg Take 40 mg Univers E SODIUM 2-21 by mouth. ity of (PROTONIX 12:23: [place] ORAL) Medical Branch tiZANidine 2020-10 Yes 4mg Take 4 mg Un henry (ZANAFLEX) 2-21 by mouth 2 ity of 4 mg 12:23: (two) [place] capsule 30 times Medical daily. Branch IRON &IRON 2020-10 Yes Take by [facility] ers ASP 2-21 mouth. ity of GLY-FA-MV,M 12:23: Indication [place] IN38 ORAL 30 s: iron Medical injectio Branch once a month DICLOFENAC 2020-10 Yes Take 50 mg U nivers POTASSIUM 2-21 base by ity of (CAMBIA 12:23: mouth. [place] ORAL) [address] [place] [address] propranolol 2020-10 Yes 20mg Take 20 mg Univers 20 mg 2-21 by mouth ity of tablet 12:23: daily. [address] FLUoxetine 2020-10 Yes 40mg Take 40 mg U nivers (PROZAC) 40 2-21 by mouth ity of mg capsule 12:23: daily. [address] gabapentin 2020-10 Yes 300mg Take 300 Un henry 300 mg 2-21 mg by ity of capsule 12:23: mouth 3 [place] 30 (three) Medical times [place] daily. Indication s: 1 in the Am and 4 at bed time ziprasidone 2020-10 Yes 60mg Take 60 mg Univers (GEODON) 60 2-21 by mouth ity of mg capsule 12:23: daily. [address] PANTOPRAZOL 2020-10 Yes 40mg Take 40 mg [facility] E SODIUM 2-21 by mouth. ity of (PROTONIX 12:23: [place] ORAL) [address] [place] [address] tiZANidine 2020-10 Yes 4mg Take 4 mg Un henry (ZANAFLEX) 2-21 by mouth 2 ity of 4 mg 12:23: (two) [place] capsule 30 times Medical daily. Branch IRON &IRON 2020-10 Yes Take by [facility] ers ASP 2-21 mouth. ity of GLY-FA-MV,M 12:23: Indication [place] IN ORAL 30 s: iron Medical injectio Branch once a month DICLOFENAC 2020-10 Yes Take 50 mg U nivers POTASSIUM 2-21 base by ity of (CAMBIA 12:23: mouth. [facility]) [address] [place] [address] propranolol 2020-10 Yes 20mg Take 20 mg Univers 20 mg 2-21 by mouth ity of tablet 12:23: daily. [address] FLUoxetine 2020-10 Yes 40mg Take 40 mg U nivers (PROZAC) 40 2-21 by mouth ity of mg capsule 12:23: daily. [address] gabapentin 2020-10 Yes 300mg Take 300 Un henry 300 mg 2-21 mg by ity of capsule 12:23: mouth 3 [place] 30 (three) Medical times [place] daily. Indication s: 1 in the Am and 4 at bed time ziprasidone 2020-10 Yes 60mg Take 60 mg Univers (GEODON) 60 2-21 by mouth ity of mg capsule 12:23: daily. [address] PANTOPRAZOL 2020-10 Yes 40mg Take 40 mg Univers E SODIUM 2-21 by mouth. ity of (PROTONIX 12:23: [place] ORAL) [address] [place] [address] Branch tiZANidine 2020-10 Yes 4mg Take 4 mg Un henry (ZANAFLEX) 2-21 by mouth 2 ity of 4 mg 12:23: (two) [place] capsule 30 times Medical daily. Branch IRON &IRON 2020-10 Yes Take by [facility] ers ASP 2-21 mouth. ity of GLY-FA-MV,M 12:23: Indication [place] IN38 ORAL 30 s: iron Medical injectio Branch once a month DICLOFENAC 2020-10 Yes Take 50 mg U nivers POTASSIUM 2-21 base by ity of (CAMBIA 12:23: mouth. [facility]) Medical [place] propranolol 2020-10 Yes 20mg Take 20 mg Univers 20 mg 2-21 by mouth ity of tablet 12:23: daily. [address] FLUoxetine 2020-10 Yes 40mg Take 40 mg U nivers (PROZAC) 40 2-21 by mouth ity of mg capsule 12:23: daily. [address] gabapentin 2020-10 Yes 300mg Take 300 Un henry 300 mg 2-21 mg by ity of capsule 12:23: mouth 3 [place] [address] (three) Medical times Branch daily. Indication s: 1 in the Am and 4 at bed time ziprasidone 2020-10 Yes 60mg Take 60 mg Univers (GEODON) 60 2-21 by mouth ity of mg capsule 12:23: daily. [address] PANTOPRAZOL 2020-10 Yes 40mg Take 40 mg [facility] E SODIUM 2-21 by mouth. ity of (PROTONIX 12:23: [place] ORAL) [address] [place] [address] Branch tiZANidine 2020-10 Yes 4mg Take 4 mg Un henry (ZANAFLEX) 2-21 by mouth 2 ity of 4 mg 12:23: (two) [place] capsule 30 times Medical daily. Branch IRON &IRON 2020-10 Yes Take by [facility] ers ASP 2-21 mouth. ity of GLY-FA-MV,M 12:23: Indication [place] IN38 ORAL 30 s: iron Medical injectio Branch once a month DICLOFENAC 2020-10 Yes Take 50 mg U nivers POTASSIUM 2-21 base by ity of (CAMBIA 12:23: mouth. [place] ORAL 30 [facility] Branch propranolol 2020-10 Yes 20mg Take 20 mg Univers 20 mg 2-21 by mouth ity of tablet 12:23: daily. [place] 30 [facility] Branch water for 2020-10- No PRN, Univers irrigation [...] Intra-op lactated 2020-10- No 1000[facility] -18 11-18 mL/hr, ity of infusion 18:00: 17:59 1,000 mL, Faustino as 1,000 mL 00 :00 IV Medical Infusion, Branch ONCE, 1 dose, On Jennie 08/20/21 at 1200, Routine, DSU Pre-op lactated 2020-10- No 1000mL at [facility] IV -18 11-18 mL/hr, ity of infusion 18:00: 17:59 1,000 mL, Faustino as 1,000 mL 00 :00 IV Medical Infusion, Branch ONCE, 1 dose, On [place] 08/20/21 at 1200, Routine, DSU Pre-op FLUoxetine 2020-10 Yes 40mg Take 40 mg U nivers (PROZAC) 40 1-18 by mouth ity of mg capsule 13:01: daily. [address] Branch gabapentin 2020-10 Yes 300mg Take 300 Un henry 300 mg 1-18 mg by ity of capsule 13:01: mouth 3 [place] 23 (three) Medical times Branch daily. Indication s: 1 in the Am and 4 at bed time ziprasidone 2020-10 Yes 60mg Take 60 mg Univers (GEODON) 60 1-18 by mouth ity of mg capsule 13:01: daily. [address] PANTOPRAZOL 2020-10 Yes 40mg Take 40 mg Univers E SODIUM 1-18 by mouth. ity of (PROTONIX 13:01: [place] ORAL) [address] [place] [address] tiZANidine 2020-10 Yes 4mg Take 4 mg Un henry (ZANAFLEX) 1-18 by mouth 2 ity of 4 mg 13:01: (two) [place] capsule 23 times Medical daily. Branch IRON &IRON 2020-10 Yes Take by [facility] ers ASP 1-18 mouth. ity of GLY-FA-MV,M 13:01: Indication [place] IN38 ORAL 23 s: iron Medical injectio Branch once a month DICLOFENAC 2020-10 Yes Take 50 mg U nivers POTASSIUM 1-18 base by ity of (CAMBIA 13:01: mouth. [facility]) Medical [place] propranolol 2020-10 Yes 20mg Take 20 mg Univers 20 mg 1-18 by mouth ity of tablet 13:01: daily. [address] FLUoxetine 2020-10 Yes 40mg Take 40 mg U nivers (PROZAC) 40 1-18 by mouth ity of mg capsule 13:01: daily. [address] gabapentin 2020-10 Yes 300mg Take 300 Un hen[place] 300 mg 1-18 mg by ity of capsule 13:01: mouth 3 [place] [address] (three) Medical times [place] daily. Indication s: 1 in the Am and 4 at bed time ziprasidone 2020-10 Yes 60mg Take 60 mg Univers (GEODON) 60 1-18 by mouth ity of mg capsule 13:01: daily. [address] PANTOPRAZOL 2020-10 Yes 40mg Take 40 mg [facility] E SODIUM 1-18 by mouth. ity of (PROTONIX 13:01: [place] ORAL) Medical Branch tiZANidine 2020-10 Yes 4mg Take 4 mg Un henry (ZANAFLEX) 1-18 by mouth 2 ity of 4 mg 13:01: (two) [place] capsule 23 times Medical daily. Branch IRON &IRON 2020-10 Yes Take by [facility] ers ASP 1-18 mouth. ity of GLY-FA-MV,M 13:01: Indication [place] IN ORAL 23 s: iron Medical injectio Branch once a month DICLOFENAC 2020-10 Yes Take 50 mg U nivers POTASSIUM 1-18 base by ity of (CAMBIA 13:01: mouth. [place] ORAL) 23 Medical Branch propranolol 2020-10 Yes 20mg Take 20 mg Univers 20 mg 1-18 by mouth ity of tablet 13:01: daily. [address] Branch FLUoxetine 2020-10 Yes 40mg Take 40 mg U nivers (PROZAC) 40 1-18 by mouth ity of mg capsule 13:01: daily. [address] Branch gabapentin 2020-10 Yes 300mg Take 300 Un henry 300 mg 1-18 mg by ity of capsule 13:01: mouth 3 [place] 23 (three) Medical times Branch daily. Indication s: 1 in the Am and 4 at bed time ziprasidone 2020-10 Yes 60mg Take 60 mg Univers (GEODON) 60 1-18 by mouth ity of mg capsule 13:01: daily. [address] Branch PANTOPRAZOL 2020-10 Yes 40mg Take 40 mg Univers E SODIUM 1-18 by mouth. ity of (PROTONIX 13:01: [place] ORAL) Medical Branch tiZANidine 2020-10 Yes 4mg Take 4 mg Un henry (ZANAFLEX) 1-18 by mouth 2 ity of 4 mg 13:01: (two) [place] capsule 23 times Medical daily. Branch IRON &IRON 2020-10 Yes Take by Univ ers ASP 1-18 mouth. ity of GLY-HAROON-JAZMYNM 13:01: Indication [place] IN ORAL 23 s: iron Medical injectio Branch once a month DICLOFENAC 2020-10 Yes Take 50 mg U nivers POTASSIUM 1-18 base by ity of (CAMBIA 13:01: mouth. [place] ORAL) Medical Branch propranolol 2020-10 Yes 20mg Take 20 mg Univers 20 mg 1-18 by mouth ity of tablet 13:01: daily. [address] Branch Sulfamethox Sulfamethox 2020- No 1{table [...] HCl 50 MG 00:00: eded} traMADol traMADol 2019-10 No 1{table traMADol HCl [...] mouth [place] 00 daily. Medical Branch amLODIPine 2016-0 Yes 5mg Take 1 Unive rs 5 mg tablet 9-08 tablet by ity of 00:00: mouth [place] 00 daily. Medical Branch amLODIPine 2016-0 Yes 5mg Take 1 Unive rs 5 mg tablet 9-08 tablet by ity of 00:00: mouth [place] 00 daily. Medical Branch amLODIPine 2016-0 Yes 5mg Take 1 Unive rs 5 mg tablet 9-08 tablet by ity of 00:00: mouth [place] 00 daily. Medical Branch amLODIPine 2017-0 Yes 5mg Take 1 Unive rs 5 mg tablet 9-08 tablet by ity of 00:00: mouth [place] 00 daily. Medical Branch amLODIPine 2016-0 Yes 5mg Take 1 Unive rs 5 [...] mouth [place] 00 :00 daily. Medical Branch Promethazin Promethazin No QID Promethazi e-DM e-DM [...] MG le_with e HCl 60 _food} MG [place] lamoTRIgine lamoTRIgine No 1{table QD lamoTRIgin 200 [...] MG le_with e HCl 60 _food} MG [place] lamoTRIgine lamoTRIgine No 1{table QD lamoTRIgin 200 [...] MG le_with e HCl 60 _food} MG [place] lamoTRIgine lamoTRIgine No 1{table QD lamoTRIgin 200 [...] MG le_with e HCl 60 _food} MG [place] lamoTRIgine lamoTRIgine No 1{table QD lamoTRIgin 200 [...] HCl 10 MG l HCl 10 MG [place] No [place] Iron Iron No Iron Supplement Supplement Supplement [...] HCl 10 MG l HCl 10 MG [place] LORazepam LORazepam No 1{table QD LORazepam 0.5 MG 0.5 MG t_at_be 0.5 MG dtime_a s_neede d} hydrOXYzine hydrOXYzine No 1{table hydrOXYzin HCl 50 MG HCl 50 MG t_as_ne e HCl 50 eded} MG Propranolol Propranolol No 1{table BID Propranolo HCl 20 MG HCl 20 MG t_on_an l HCl 20 _empty_ MG stomach } Gabapentin Gabapentin No Gabapentin 600 MG 600 MG 600 MG [place] Pantoprazol Pantoprazol No 1{table QD Pantoprazo e [...] MG t_with_ e HCl 75 food} MG [place] Ziprasidone Ziprasidone No 2{capsu BID Ziprasidon HCl [...] MG t_with_ e HCl 75 food} MG [place] Ziprasidone Ziprasidone No 2{capsu BID Ziprasidon HCl [...] MG t_with_ e HCl 75 food} MG [place] Ziprasidone Ziprasidone No 2{capsu BID Ziprasidon HCl [...] HCl 20 MG l HCl 20 MG [place] Gabapentin Gabapentin No Gabapentin 600 MG 600 [...] Sodium 50 MCG 50 MCG 50 MCG [place] Pantoprazol Pantoprazol No Pantoprazo e Sodium 40 [...] Gabapentin 600 MG 600 MG 600 MG [place] No [place] Amitiza 24 Amitiza 24 No 1{capsu BID [...] t} le Sodium MG MG 40 MG [place] Vitamin D3 Vitamin D3 No 1{capsu QD [...] t} le Sodium MG MG 40 MG [place] No [place] Vitamin D3 Vitamin D3 No 1{capsu QD [...] Sodium 50 MCG 50 MCG 50 MCG [place] Vitamin D3 Vitamin D3 No 1{capsu QD [...] HCl 4 MG n HCl 4 MG [place] Promethazin Promethazin No QID Promethazi e-DM e-DM ne-DM 6.25-15 6.25-15 6.25-15 MG/5ML MG/5ML MG/5ML [place] Geodon 60 Geodon 60 No 1{capsu BID [...] 1 capsule Co mmon [place] with food [facility] Pantoprazol Pantoprazol Yes [place] 1 tablet Common e Sodium e Sodium Platt [facility] Propranolol Propranolol Yes [place] 1 tablet Common HCl HCl Platt on an Spirit empty - [facility] stomach [facility] Vitamin D3 Vitamin D3 Yes [place] [address] [facility] Levothyroxi Levothyroxi Yes [place] 1 tablet Common ne Sodium ne Sodium [place] on an Spi rit empty - [facility]I stomach in [facility] Promethazin Promethazin Yes [place] 5 ml as Common e-DM e-DM Platt needed Spirit Nausea/Vom - [facility] iting [facility] Clonazepam Clonazepam Yes [place] 1 tablet Common Platt at bedtime [facility] Geodon Geodon Yes [place] 1 capsule Comm on Platt with food [facility] baclofen baclofen Yes [place] 1 tab as C ommon Platt needed for Spirit pain - [facility] Iron Iron Yes Gloria not Common Supplement Supplement Platt defined [facility] Ziprasidone Ziprasidone Yes [place] 1 capsule Common HCl HCl Platt with food [facility] Tizanidine Tizanidine Yes [place] 1 tablet Common HCl HCl Platt [facility] HydrOXYzine HydrOXYzine Yes [place] 1 tablet Common HCl HCl Platt [facility] Gabapentin Gabapentin Yes [place] 1 tablet Common [place]att am and 2 Spirit tabs pm - [facility] Gabapentin Gabapentin Yes [place] TAKE ONE Common [place]att TABLET BY [facility] MOUTH - [facility] M[facility] THEN Medical TAKE TWO Center TABLETS BY MOUTH EVERY EVENING Wellbutrin Wellbutrin Yes [place] 1 tablet Common XL XL Platt in the [facility] morning [facility] Fluoxetine Fluoxetine Yes [place] 1 capsule Common HCl HCl Platt [facility] Pantoprazol Pantoprazol No Pantoprazo e [...] HCl 10 MG l HCl 10 MG [place] FLUoxetine FLUoxetine No 1{capsu QD FLUoxetine HCl [...] ne-DM 6.25-15 6.25-15 6.25-15 MG/5ML MG/5ML MG/5ML [place] lamoTRIgine lamoTRIgine No 1{table QD lamoTRIgin 100 [...] HCl 10 MG Effexor Effexor No Effexor [place] Pantoprazol Pantoprazol No Pantoprazo e Sodium 40 [...] ne-DM 6.25-15 6.25-15 6.25-15 MG/5ML MG/5ML MG/5ML [place] Pantoprazol Pantoprazol No Pantoprazo e Sodium 40 [...] HCl 4 MG t} HCl 4 MG [place] Effexor Effexor No Effexor Geodon 60 Geodon [...] MG 200 MG t} e 200 MG [place] No [place] Propranolol Propranolol No 1{table BID Propranolo HCl [...] MG 200 MG t} e 200 MG [place] No [place] Propranolol Propranolol No 1{table BID Propranolo HCl [...] Amitiza 24 MCG MCG le_with MCG _food} Immunizations Ordered Filled Immunization Date Status Comments [facility] e Immunization Name Name Moderna COVID-19 Moderna COVID-19 2022-11-20 Completed [facility] - Vaccine, Bivalent Vaccine, Bivalent 08:50:00 [facility] Moderna COVID-19 Moderna COVID-19 2021-02-14 Completed [facility] - Vaccine Vaccine 09:03:00 [facility] Moderna COVID-19 Moderna COVID-19 2021-02-14 Completed [facility] - Vaccine Vaccine 09:03:00 [facility] Moderna COVID-19 Moderna COVID-19 2021-02-14 Completed [facility] - Vaccine Vaccine 09:03:00 [facility] Moderna COVID-19 Moderna COVID-19 2021-02-14 Completed [facility] - Vaccine Vaccine 09:03:00 [facility] Moderna COVID-19 Moderna COVID-19 2021-02-14 Completed [facility] - Vaccine Vaccine 09:03:00 [facility] Moderna COVID-19 Moderna COVID-19 2021-02-14 Completed [facility] - Vaccine Vaccine 09:03:00 [facility] Moderna COVID-19 Moderna COVID-19 2021-02-14 Completed [facility] - Vaccine Vaccine 09:03:00 [facility] Moderna COVID-19 Moderna COVID-19 2021-02-14 Completed [facility] - Vaccine Vaccine 09:03:00 [facility] Moderna COVID-19 Moderna COVID-19 2021-02-14 Completed [facility] - Vaccine Vaccine 09:03:00 [facility] Moderna COVID-19 Moderna COVID-19 2021-02-14 Completed [facility] - Vaccine Vaccine 09:03:00 [facility] Moderna COVID-19 Moderna COVID-19 2021-02-14 Completed [facility] - Vaccine Vaccine 09:03:00 [facility] Moderna COVID-19 Moderna COVID-19 2021-02-14 Completed [facility] - Vaccine Vaccine 09:03:00 [facility] Moderna COVID-19 Moderna COVID-19 2021-02-14 Completed [facility] - Vaccine Vaccine 09:03:00 [facility] Moderna COVID-19 Moderna COVID-19 2021-02-14 Completed [facility] - Vaccine Vaccine 09:03:00 [facility] Moderna COVID-19 Moderna COVID-19 2021-02-14 Completed [facility] - Vaccine Vaccine 09:03:00 [facility] Moderna COVID-19 Moderna COVID-19 2021-02-14 Completed [facility] - Vaccine Vaccine 09:03:00 [facility] Moderna COVID-19 Moderna COVID-19 2021-02-14 Completed [facility] - Vaccine Vaccine 09:03:00 [facility] Moderna COVID-19 Moderna COVID-19 2021-02-14 Completed [facility] - Vaccine Vaccine 09:03:00 [facility] Moderna COVID-19 Moderna COVID-19 2021-02-14 Completed [facility] - Vaccine Vaccine 09:03:00 [facility] Moderna COVID-19 Moderna COVID-19 2021-02-14 Completed [facility] - Vaccine Vaccine 09:03:00 [facility] Moderna COVID-19 Moderna COVID-19 2021-02-14 Completed [facility] - Vaccine Vaccine 09:03:00 [facility] Moderna COVID-19 Moderna COVID-19 2021-02-14 Completed [facility] - Vaccine Vaccine 09:03:00 [facility] Moderna COVID-19 Moderna COVID-19 2021-02-14 Completed [facility] - Vaccine Vaccine 09:03:00 [facility] Moderna COVID-19 Moderna COVID-19 2021-02-14 Completed [facility] - Vaccine Vaccine 09:03:00 [facility] Moderna COVID-19 Moderna COVID-19 2021-02-14 Completed [facility] - Vaccine Vaccine 09:03:00 [facility] SARS-COV-2 COVID-19 2021-02-10 Completed Unive rsity of MODERNA VACCINE 00:00:00 [place] Med ical Branch SARS-COV-2 COVID-19 2021-02-10 Completed Unive rsity of MODERNA VACCINE 00:00:00 [place] Med ical Branch SARS-COV-2 COVID-19 2021-02-10 Completed Unive rsity of MODERNA VACCINE 00:00:00 [place] Med ical Branch SARS-COV-2 COVID-19 2021-02-10 Completed Unive rsity of MODERNA VACCINE 00:00:00 [place] Med ical Branch SARS-COV-2 COVID-19 2021-02-10 Completed Unive rsity of MODERNA 12+ YRS 00:00:00 [place] Med ical VACCINE Branch SARS-COV-2 COVID-19 2021-02-10 Completed Unive rsity of MODERNA 12+ YRS 00:00:00 [place] Med ical VACCINE Branch SARS-COV-2 COVID-19 2021-02-10 Completed Unive rsity of MODERNA 12+ YRS 00:00:00 [place] Med ical VACCINE Branch SARS-COV-2 COVID-19 2021-02-10 Completed Unive rsity of MODERNA VACCINE 00:00:00 [place] Med ical Branch SARS-COV-2 COVID-19 2021-02-10 Completed Unive rsity of MODERNA 12+ YRS 00:00:00 [place] Med ical VACCINE Branch SARS-COV-2 COVID-19 2021-02-10 Completed Unive rsity of MODERNA 12+ YRS 00:00:00 [place] Med ical VACCINE Branch SARS-COV-2 COVID-19 2021-02-10 Completed Unive rsity of MODERNA 12+ YRS 00:00:00 [place] Med ical VACCINE Branch SARS-COV-2 COVID-19 2021-02-10 Completed Unive rsity of MODERNA VACCINE 00:00:00 [place] Med ical Branch SARS-COV-2 COVID-19 2021-02-10 Completed Unive rsity of MODERNA VACCINE 00:00:00 [place] Med ical Branch Moderna COVID-19 Moderna COVID-19 2021-01-13 Completed [facility] - Vaccine Vaccine 16:57:00 [facility] Moderna COVID-19 Moderna COVID-19 2021-01-13 Completed [facility] - Vaccine Vaccine 16:57:00 [facility] Moderna COVID-19 Moderna COVID-19 2021-01-13 Completed [facility] - Vaccine Vaccine 16:57:00 [facility] Moderna COVID-19 Moderna COVID-19 2021-01-13 Completed [facility] - Vaccine Vaccine 16:57:00 [facility] Moderna COVID-19 Moderna COVID-19 2021-01-13 Completed [facility] - Vaccine Vaccine 16:57:00 [facility] Moderna COVID-19 Moderna COVID-19 2021-01-13 Completed [facility] - Vaccine Vaccine 16:57:00 [facility] Moderna COVID-19 Moderna COVID-19 2021-01-13 Completed [facility] - Vaccine Vaccine 16:57:00 [facility] Moderna COVID-19 Moderna COVID-19 2021-01-13 Completed [facility] - Vaccine Vaccine 16:57:00 [facility] Moderna COVID-19 Moderna COVID-19 2021-01-13 Completed [facility] - Vaccine Vaccine 16:57:00 [facility] Moderna COVID-19 Moderna COVID-19 2021-01-13 Completed [facility] - Vaccine Vaccine 16:57:00 [facility] Moderna COVID-19 Moderna COVID-19 2021-01-13 Completed [facility] - Vaccine Vaccine 16:57:00 [facility] Moderna COVID-19 Moderna COVID-19 2021-01-13 Completed [facility] - Vaccine Vaccine 16:57:00 [facility] Moderna COVID-19 Moderna COVID-19 2021-01-13 Completed [facility] - Vaccine Vaccine 16:57:00 [facility] Moderna COVID-19 Moderna COVID-19 2021-01-13 Completed [facility] - Vaccine Vaccine 16:57:00 [facility] Moderna COVID-19 Moderna COVID-19 2021-01-13 Completed [facility] - Vaccine Vaccine 16:57:00 [facility] Moderna COVID-19 Moderna COVID-19 2021-01-13 Completed [facility] - Vaccine Vaccine 16:57:00 [facility] Moderna COVID-19 Moderna COVID-19 2021-01-13 Completed [facility] - Vaccine Vaccine 16:57:00 [facility] Moderna COVID-19 Moderna COVID-19 2021-01-13 Completed [facility] - Vaccine Vaccine 16:57:00 [facility] Moderna COVID-19 Moderna COVID-19 2021-01-13 Completed [facility] - Vaccine Vaccine 16:57:00 [facility] Moderna COVID-19 Moderna COVID-19 2021-01-13 Completed [facility] - Vaccine Vaccine 16:57:00 [facility] Moderna COVID-19 Moderna COVID-19 2021-01-13 Completed [facility] - Vaccine Vaccine 16:57:00 [facility] Moderna COVID-19 Moderna COVID-19 2021-01-13 Completed [facility] - Vaccine Vaccine 16:57:00 [facility] Moderna COVID-19 Moderna COVID-19 2021-01-13 Completed [facility] - Vaccine Vaccine 16:57:00 [facility] Moderna COVID-19 Moderna COVID-19 2021-01-13 Completed [facility] - Vaccine Vaccine 16:57:00 [facility] Moderna COVID-19 Moderna COVID-19 2021-01-13 Completed [facility] - Vaccine Vaccine 16:57:00 [facility] SARS-COV-2 COVID-19 2021-01-13 Completed Unive rsity of MODERNA VACCINE 00:00:[address] [facility] SARS-COV-2 COVID-19 2021-01-13 Completed Unive rsity of MODERNA VACCINE 00:00:[address] [facility] SARS-COV-2 COVID-19 2021-01-13 Completed Unive rsity of MODERNA VACCINE 00:00:[address] [facility] SARS-COV-2 COVID-19 2021-01-13 Completed Unive rsity [...] Unive rsity of MODERNA 12+ YRS 00:00:00 [place] Med ical VACCINE Branch SARS-COV-2 COVID-19 2021-01-13 Completed Unive rsity of MODERNA 12+ YRS 00:00:00 [place] Med ical VACCINE Branch SARS-COV-2 COVID-19 2021-01-13 Completed Unive rsity of MODERNA VACCINE 00:00:00 [facility] ical Branch SARS-COV-2 COVID-19 2021-01-13 Completed Unive rsity of MODERNA VACCINE 00:00:00 [facility] ical Branch Vital Signs Vital Name Observation Time Observation Value Comments Source height 2022-09-22 11:10:00 61.5 [in_i] [facility] weight 2022-09-22 11:10:00 143 [lb_av] [facility] temperature 2022-09-22 11:10:00 98 [degF] [facility] bmi 2022-09-22 11:10:00 26.58 kg/m2 [facility] blood pressure 2022-09-22 11:10:00 128 mm[Hg] [facility] - systolic [facility] blood pressure 2022-09-22 11:10:00 76 mm[Hg] [facility] - diastolic [facility] height 2022-09-06 14:30:00 61.5 [in_i] Common [facility] weight 2022-09-06 14:30:00 145 [lb_av] [facility] temperature 2022-09-06 14:30:00 97.4 [degF] [facility] bmi 2022-09-06 14:30:00 26.95 kg/m2 Common S pirit - [facility] blood pressure 2022-09-06 14:30:00 125 mm[Hg] [facility] - systolic [facility] blood pressure 2022-09-06 14:30:00 84 mm[Hg] [facility] - diastolic [facility] height 2022-07-29 14:30:00 61.5 [in_i] [facility] weight 2022-07-29 14:30:00 145 [lb_av] [facility] temperature 2022-07-29 14:30:00 97.0 [degF] [facility] bmi 2022-07-29 14:30:00 26.95 kg/m2 Common [facility] blood pressure 2022-07-29 14:30:00 128 mm[Hg] [facility] - systolic [facility] blood pressure 2022-07-29 14:30:00 82 mm[Hg] [facility] - diastolic [facility] Systolic blood 2022-07-26 20:00:00 161 mm[Hg] [facility] Diastolic blood 2022-07-26 20:00:00 94 mm[Hg] Unive rsity of pressure [facility] Heart rate 2022-07-26 20:00:00 78 /min Universi [facility] Oxygen saturation in 2022-07-26 20:00:00 100 /min [facility] Arterial blood by [facility] Pulse oximetry Branch Respiratory rate 2022-07-26 19:40:00 16 /min Univ ersity [facility] Body temperature 2022-07-26 16:42:00 36.89 Sarah [facility] Body height 2022-07-26 16:42:00 157.5 cm [facility] Body weight 2022-07-26 16:42:00 72.576 kg [facility] BMI 2022-07-26 16:42:00 29.26 kg/m2 [facility] height 2022-07-09 09:30:00 61.5 [in_i] Common [facility] weight 2022-07-09 09:30:00 145 [lb_av] Common [facility] temperature 2022-07-09 09:30:00 97.1 [degF] Common [facility] bmi 2022-07-09 09:30:00 26.95 kg/m2 Common [facility] blood pressure 2022-07-09 09:30:00 100 mm[Hg] [facility] - systolic [facility] blood pressure 2022-07-09 09:30:00 68 mm[Hg] [facility] - diastolic [facility] height 2022-06-30 15:00:00 61.5 [in_i] Common [facility] weight 2022-06-30 15:00:00 142 [lb_av] Common [facility] temperature 2022-06-30 15:00:00 97.9 [degF] Common [facility] bmi 2022-06-30 15:00:00 26.39 kg/m2 [facility] oximetry 2022-06-30 15:00:00 98 % Common [facility] respiratory rate 2022-06-30 15:00:00 16 /min Comm [facility] blood pressure 2022-06-30 15:00:00 145 mm[Hg] [facility] - systolic [facility] blood pressure 2022-06-30 15:00:00 70 mm[Hg] [facility] - diastolic [facility] Respiratory rate 2022-06-21 12:47:00 16 /min [facility] in 2022-06-21 12:47:00 94 /min [facility] Arterial blood by [facility] Pulse oximetry Branch Systolic blood 2022-06-21 12:43:00 102 mm[Hg] Univer sity of pressure [facility] Diastolic blood 2022-06-21 12:43:00 59 mm[Hg] [facility] Heart rate 2022-06-21 12:43:00 70 /min [facility] Body temperature 2022-06-21 12:43:00 35.72 Sarah [facility] weight 2022-06-21 08:14:00 72.666 kg [facility] BMI 2022-06-21 08:14:00 29.30 kg/m2 [facility] Body height 2022-06-17 03:46:00 157.5 cm [facility] height 2022-06-09 13:00:00 61.5 [in_i] [facility] weight 2022-06-09 13:00:00 148 [lb_av] [facility] temperature 2022-06-09 13:00:00 98.7 [degF] [facility] bmi 2022-06-09 13:00:00 27.51 kg/m2 [facility] oximetry 2022-06-09 13:00:00 96 % [facility] respiratory rate 2022-06-09 13:00:00 16 /min Comm on Spirit - [facility] blood pressure 2022-06-09 13:00:00 138 mm[Hg] [facility] - systolic [facility] blood pressure 2022-06-09 13:00:00 80 mm[Hg] Common [facility] - diastolic [facility] height 2022-06-09 13:00:00 62 [in_i] [facility] weight 2022-06-09 13:00:00 148 [lb_av] [facility] temperature 2022-06-09 13:00:00 98.7 [degF] Common S pirit [facility] bmi 2022-06-09 13:00:00 27.07 kg/m2 Common S [facility] oximetry 2022-06-09 13:00:00 96 % [facility] respiratory rate 2022-06-09 13:00:00 16 /min Comm [facility] blood pressure 2022-06-09 13:00:00 138 mm[Hg] Common [facility] - systolic [facility] blood pressure 2022-06-09 13:00:00 80 mm[Hg] Common [facility] - diastolic [facility] WEIGHT 2022-04-14 13:36:00 65.454 kg WEIGHT 2022-04-14 13:36:00 65.454 kg height 2022-02-09 13:10:00 62 [in_i] [facility] weight 2022-02-09 13:10:00 148.8 [lb_av] [facility] temperature 2022-02-09 13:10:00 96.6 [degF] Common [facility] bmi 2022-02-09 13:10:00 27.21 kg/m2 [facility] oximetry 2022-02-09 13:10:00 100 % [facility] respiratory rate 2022-02-09 13:10:00 18 /min [facility] blood pressure 2022-02-09 13:10:00 131 mm[Hg] Common [facility] - systolic [facility] blood pressure 2022-02-09 13:10:00 69 mm[Hg] Common [facility] - diastolic [facility] HEIGHT 2022-01-04 10:22:00 157.5 cm WEIGHT 2022-01-04 10:22:00 67.087 kg height 2021-10-12 14:10:00 62 [in_i] Common [facility] weight 2021-10-12 14:10:00 155 [lb_av] Common [facility] temperature 2021-10-12 14:10:00 98 [degF] Common [facility] bmi 2021-10-12 14:10:00 28.35 kg/m2 [facility] blood pressure 2021-10-12 14:10:00 121 mm[Hg] [facility] - systolic [facility] blood pressure 2021-10-12 14:10:00 76 mm[Hg] [facility] - diastolic [facility] Heart rate 2021-09-22 18:07:00 78 /min [facility]i [facility] Systolic blood 2021-09-22 18:06:00 117 mm[Hg] Univer sity of pressure [facility] Diastolic blood 2021-09-22 18:06:00 65 mm[Hg] [facility] Oxygen saturation in 2021-09-22 18:06:00 100 /min University of Arterial blood by [employer] Pulse oximetry Branch Respiratory rate 2021-09-22 18:05:00 21 /min Univ ersity of [facility] Body temperature 2021-09-22 17:42:00 36.5 Sarah Univ ersity [facility] Body height 2021-09-14 14:52:00 157.5 cm Universi ty [facility] Body weight 2021-09-14 14:52:00 70.3 kg Universi ty [facility] BMI 2021-09-14 14:52:00 28.34 kg/m2 Universi ty [facility] Heart rate 2021-09-22 18:01:00 62 /min Universi ty [facility] Respiratory rate 2021-09-22 18:01:00 30 /min Univ ersity of [facility] Oxygen saturation in 2021-09-22 18:01:00 100 /min University of Arterial blood by [employer] Pulse oximetry Branch Systolic blood 2021-09-22 17:56:00 105 mm[Hg] Univer sity of pressure [facility] Diastolic blood 2021-09-22 17:56:00 62 mm[Hg] Unive rsity of pressure [facility] Body temperature 2021-09-22 17:42:00 36.5 Sarah [facility] Body height 2021-09-14 14:52:00 157.5 cm [facility] Body weight 2021-09-14 14:52:00 70.3 kg [facility] BMI 2021-09-14 14:52:00 28.34 kg/m2 [facility] Heart rate 2021-08-20 18:49:00 62 /min [facility] Oxygen saturation in 2021-08-20 18:49:00 100 /min University of Arterial blood by [place] [employer] [facility] Pulse oximetry Branch Respiratory rate 2021-08-20 18:47:00 19 /min [facility] Systolic blood 2021-08-20 18:45:00 127 mm[Hg] Univer [facility]ity of [facility] Diastolic blood 2021-08-20 18:45:00 74 mm[Hg] Unive rsity of pressure [facility] Body temperature 2021-08-20 18:33:00 36.39 Sarah [facility] Body height 2021-08-20 17:49:00 157.5 cm [facility] Body weight 2021-08-20 17:49:00 70.308 kg [facility] BMI 2021-08-20 17:49:00 28.35 kg/m2 [facility] Heart rate 2021-08-20 18:49:00 62 /min [facility] Oxygen saturation in 2021-08-20 18:49:00 100 /min University of Arterial blood by [place] [employer] [facility] Pulse oximetry Branch Respiratory rate 2021-08-20 18:47:00 19 /min [facility] Systolic blood 2021-08-20 18:45:00 127 mm[Hg] Univer [facility]ity of [facility] Diastolic blood 2021-08-20 18:45:00 74 mm[Hg] Unive rsity of [facility] Body temperature 2021-08-20 18:33:00 36.39 Sarah [facility] Body height 2021-08-20 17:49:00 157.5 cm [facility] Body weight 2021-08-20 17:49:00 70.308 kg [facility] BMI 2021-08-20 17:49:00 28.35 kg/m2 [facility] Systolic blood 2022-04-14 13:36:00 118 mm[Hg] [facility] Diastolic blood 2022-04-14 13:36:00 77 mm[Hg] [facility] Heart rate 2022-04-14 13:36:00 69 /min [facility] Body temperature 2022-04-14 13:36:00 36.67 Sarah [facility] Body weight 2022-04-14 13:36:00 65.454 kg [facility] BMI 2022-04-14 13:36:00 26.39 kg/m2 [facility] Procedures Procedure Date / Time Performing Source Performed Clinician MR LUMBAR SPINE WO CONTRAST 2022-09-23 Shan Santana Uni versity of 21:10:02 S [facility] ASSIGNMENT OF BENEFITS 2022-09-23 Doctor [facility] y of 20:12:40 Unassigned, No [facility] COMP. METABOLIC PANEL ([id number]) 2022-07-26 Nilay Lennon iversity of 18:57:00 [facility] CBC WITH DIFF 2022-07-26 Singer Nilay Gorham of 18:57:00 [facility] URINALYSIS 2022-07-26 Singer Nilay [facility] of 18:57:00 [facility] CT ABDOMEN PELVIS WO CONTRAST 2022-07-26 Nilay Lennon iversity of 18:03:32 [facility] CONSENT/REFUSAL FOR DIAGNOSIS AND 2022-07-26 [facility] of TREATMENT 16:32:59 Unassigned, No [facility] HEPATIC FUNCTION PANEL ([id number]) 2022-06-21 Tika Cummings niversity of (ALB,T.PRO,BILI 11:05:00 [facility],BU/BC,ALT,AST,ALK PHOS) Lenora BASIC METABOLIC PANEL (NA, K, CL, 2022-06-21 Tika Cummings of CO2, GLUCOSE, BUN, CREATININE, CA) 11:05:00 [facility] URINALYSIS 2022-06-20 Tika Cummings of 22:41:00 [facility] BASIC METABOLIC PANEL (NA, K, CL, 2022-06-20 Emiliano [facility] of CO2, GLUCOSE, BUN, CREATININE, CA) 08:54:00 [facility] CBC WITH DIFF 2022-06-20 [facility] 08:54:00 [facility] HEPATIC FUNCTION PANEL ([id number]) 2022-06-19 Tika Cummings U niversity of (ALB,T.PRO,BILI 09:22:00 [facility] T,BU/BC,ALT,AST,ALK PHOS) Lenora BASIC METABOLIC PANEL (NA, K, CL, 2022-06-19 Emiliano [facility] of CO2, GLUCOSE, BUN, CREATININE, CA) 09:22:00 [facility] CBC WITH DIFF 2022-06-19 Tika Cummings [facility] of 09:22:00 [facility] BLOOD CULTURE SCREEN 2022-06-19 [place] [facility] of 03:22:00 [facility] BLOOD CULTURE SCREEN 2022-06-19 [place] [facility] of 03:16:00 [facility] XR CHEST 1 VW 2022-06-19 [place] [facility] of 01:50:09 [facility] HEPATIC FUNCTION PANEL ([id number]) 2022-06-18 Tika Cummings niversity of (ALB,T.PRO,BILI 10:14:00 [facility] T,BU/BC,ALT,AST,ALK PHOS) [place] PHOSPHORUS 2022-06-17 Herbie Olvera of 09:00:00 [facility] MAGNESIUM 2022-06-17 Herbie Olvera [facility] of 09:00:00 [facility] TROPONIN I 2022-06-17 Herbie Olvera [facility] of 09:00:00 [facility] THYROID STIMULATING HORMONE 2022-06-17 Herbie Olvera [facility] ersity of 09:00:00 [facility] COMP. METABOLIC PANEL ([id number]) 2022-06-17 Herbie Olvera iversity of 09:00:00 [facility] LIPID PANEL ([id number])(TOTAL 2022-06-17 Herbie Olvera [facility] sity of CHOLESTEROL, TRIGLYCERIDES, HDL) 09:00:00 [facility] CBC WITH DIFF 2022-06-17 Herbie Olvera [facility] of 09:00:00 [facility] PROTHROMBIN TIME / INR 2022-06-17 [facility] 09:[facility]00 [facility] HEPATITIS B SURFACE ANTIBODY 2022-06-17 Jesus Mora Uni versity of 09:00:00 [facility] HEPATITIS B SURFACE ANTIGEN 2022-06-17 Jesus Mora [facility] ersity of 09:00:00 [facility] HCV ANTIBODY 2022-06-17 Jesus Mora [facility] of 09:00:00 [facility] HBC ANTIBODY (IGM & IGG) 2022-06-17 Jesus Mora [facility] ity of 09:00:00 [facility] LAMOTRIGINE, LEVEL 2022-06-17 Wade [facility] of 09:00:00 [facility] N-TERMINAL PRO-BNP 2022-06-17 Wade, [facility] of 09:00:00 [facility] PROCALCITONIN 2022-06-17 Wade [facility] of 09:00:00 [facility] CT ABDOMEN PELVIS W CONTRAST 2022-06-17 Hill Sawyer Uni versity of 00:50:10 [facility] CBC WITH DIFF 2022-06-17 Hill Sawyer [facility] of 00:24:00 [facility] GLYCOSYLATED HEMOGLOBIN (A1C) 2022-06-17 Herbie Olvera Un iversity of 00:24:00 [facility] HB ECG ROUTINE & RHYTHM STRIP 2022-06-17 Hill Sawyer Un iversity of 00:06:46 [facility] BLOOD CULTURE SCREEN 2022-06-17 Hill Sawyer of 00:00:00 [facility] LIPASE 2022-06-17 Hill Sawyer [facility] of 00:00:00 [facility] MAGNESIUM 2022-06-17 Hill Sawyer [facility] of 00:00:00 [facility] TROPONIN I 2022-06-17 Hill Sawyer of 00:00:00 [facility] COMP. METABOLIC PANEL ([id number]) 2022-06-17 Hill Sawyer Un iversity of 00:00:00 [facility] URINALYSIS 2022-06-17 Hill Sawyer of 00:00:00 [facility] COVID-19 (ID NOW RAPID TESTING) 2022-06-17 Hill Sawyer [facility] of 00:00:00 [facility] LAB ONLY COVID INTERPRETATION 2022-06-17 Hill Sawyer Un iversity of 00:00:00 [facility] NOTICE OF PRIVACY PRACTICES 2022-06-16 [facility] 22:38:45 Unassigned, No [facility] CONSENT/REFUSAL FOR DIAGNOSIS AND 2022-06-16 Doctor [facility] TREATMENT 22:35:24 Unassigned, No [facility] HB CREATININE BLOOD 2021-10-16 Carlton Echeverria Gorham o f 21:37:00 [facility] NOTICE OF BILLING PRACTICES FOR 2021-10-16 Doctor Gorham of MEDICARE PATIENTS 21:05:05 Unassigned, No [facility] PATIENT FINANCIAL POLICY 2021-10-16 Doctor iversity of 21:04:40 Unassigned, No [facility] NO SHOW OR MISSED APPOINTMENT 2021-10-16 Doctor Un iversity of POLICY ACKNOWLEDGEMENT 21:04:21 Unassigned, No [facility] ica Name Branch CONSENT/REFUSAL FOR DIAGNOSIS AND 2021-10-16 Doctor [facility] 21:03:59 Unassigned, No [facility] ASSIGNMENT OF BENEFITS 2021-10-16 Doctor [facility] of 21:03:40 Unassigned, No [place] [facility] COLONOSCOPY 2021-09-22 Carlton Echeverria Gorham of 16:38:00 [facility] ESOPHAGOGASTRODUODENOSCOPY 2021-09-22 [facility] 16:38:00 [facility] COLONOSCOPY (ENDO) 2021-09-22 Gloria Platt [facility] 16:33:27 [facility] COLONOSCOPY (ENDO) 2021-09-22 Gloria Platt [facility] of 16:33:27 [facility] EGD (ENDO) 2021-09-22 Gloria Platt [facility] of 16:23:06 [facility] EGD (ENDO) 2021-09-22 Gloria Platt [facility] of 16:23:06 [facility] DAY SURGERY - ADC 2021-09-22 Doctor Ponce of 06:01:00 Unassigned, No [facility] EXTERNAL PROVIDER RECORDS 2021-09-16 Doctor Univer sity of 06:01:00 Unassigned, No [facility] EXTERNAL PROVIDER RECORDS 2021-09-16 Doctor Univer sity of 06:01:00 Unassigned, No [facility] EXTERNAL PROVIDER RECORDS 2021-09-14 Doctor Univer sity of 06:01:00 Unassigned, No [facility] EXTERNAL PROVIDER RECORDS 2021-09-14 Doctor Univer sity of 06:01:00 Unassigned, No [facility] COLONOSCOPY (ENDO) 2021-08-20 Carlton Echeverria [facility] 18:15:37 [facility] COLONOSCOPY 2021-08-20 Carlton Echeverria [facility] 18:01:00 [facility] PATIENT QUESTIONNAIRE 2021-08-20 [facility] of 06:01:00 Unassigned, No [place] [facility] EXTERNAL PROVIDER RECORDS 2021-08-03 Doctor Univer sity of 05:01:00 Unassigned, No [place] [facility] EXTERNAL PROVIDER RECORDS 2021-08-03 Doctor Univer sity of 05:01:00 Unassigned, No [facility] Plan of Care Planned Activity Planned Date Details Comments Source Future Scheduled 2031-09-22 Screening for malignant [facility] Test 00:00:00 neoplasm of colon Medical Ce nter (procedure) [code = 916995373] Future Scheduled 2031-09-22 Screening for malignant [facility] Test 00:00:00 neoplasm of colon Medical Ce nter (procedure) [code = 344901048] Future Scheduled 2031-09-22 Screening for malignant [facility] Test 00:00:00 neoplasm of colon Medical Ce nter (procedure) [code = 380024433] Future Scheduled 2031-09-22 Screening for malignant [facility] Test 00:00:00 neoplasm of colon Medical Ce nter (procedure) [code = 615178255] Future Scheduled 2031-09-22 Screening for malignant [facility] Test 00:00:00 neoplasm of colon Medical Ce nter (procedure) [code = 231666878] Future Scheduled 2031-09-22 Screening for malignant [facility] Test 00:00:00 neoplasm of colon Medical Ce nter (procedure) [code = 701707806] Future Scheduled 2023-06-[address] [facility] 00:00:00 (Season Ended) [code = [facility] Influenza Vaccine (Season Ended)] Future Scheduled 2023-06-03 Influenza Vaccine (#1) [facility] 00:00[facility]00 [code = Influenza Medical Ce nter Vaccine (#1)] Future Scheduled 2023-06-03 Influenza Vaccine (#1) [facility] 00:00:00 [code = Influenza Medical Ce nter Vaccine (#1)] Future Scheduled 2023-04-[address] [facility] 00:[facility]:00 (12+) [code = [facility] DEPRESSION SCREENING (12+)] Future Scheduled 2022-10-[address] [facility] 00:00:00 (12+) [code = [facility] DEPRESSION SCREENING (12+)] Future Scheduled 2022-10-[address] [facility] 00:00:00 (12+) [code = [facility] DEPRESSION SCREENING (12+)] Future Scheduled 2021-04-11 [...] [facility] Future Scheduled 2013-12-26 SHINGLES VACCINES ([address] [facility] 00:00:00 2) [facility] ([facility] of 2)] Future Scheduled 2013-12-26 SHINGLES VACCINES ([address] [facility] 00:00:00 2) [[facility] V[facility] (1 of 2)] Future Scheduled 2008-12-26 Lipid panel (procedure) [facility] 00:00:00 [code = 82691348] Medical Ce nter Future Scheduled 2008-12-26 Lipid panel (procedure) [facility] 00:00:00 [code = 47166852] Medical Ce nter Future Scheduled 2008-12-26 Lipid panel (procedure) [facility] 00:00:00 [code = 62459533] Medical Ce nter Future Scheduled 1984-12-26 Screening for malignant [facility] 00:00:00 neoplasm of cervix Medical C enter (procedure) [code = 758550526] Future Scheduled 1984-12-26 Screening for malignant [facility] 00:00:00 neoplasm of cervix Medical C enter (procedure) [code = 945965697] Future Scheduled 1984-12-26 Screening for malignant [facility] 00:00:00 neoplasm of cervix Medical C enter (procedure) [code = 627273190] Future Scheduled 1982-12-26 DTAP/TDAP/TD VACCINES CH I [...] breast Medical C enter (procedure) [code = 278281172] Future Scheduled 1963 CT Colonography (combo) [facility] 00:00:00 [code = CT Colonography [facility] (combo)] Future Scheduled 1963 Screening for malignant [facility] 00:00:00 neoplasm of colon Medical Ce nter (procedure) [code = 760166701] Future Scheduled 1963 Screening for malignant [facility] 00:00:00 neoplasm of colon Medical Ce nter (procedure) [code = 334819825] Future Scheduled 1963 Sigmoidoscopy [code = [facility]] Medical Cente r Future Scheduled 1963 Screening for malignant [facility] 00:00:00 neoplasm of breast Medical C enter (procedure) [code = 918254264] Future Scheduled 1963 CT Colonography (combo) [facility] 00:00:00 [code = CT Colonography [facility] (combo)] Future Scheduled 1963 Screening for malignant [facility] 00:00:00 neoplasm of colon Medical Ce nter (procedure) [code = 364570554] Future Scheduled 1963 Screening for malignant [facility] 00:00:00 neoplasm of colon Medical Ce nter (procedure) [code = 595982668] Future Scheduled 1963 Sigmoidoscopy [facility]code = [facility]oscopy] Medical Cente r Future Scheduled 1963 Screening for malignant [facility] 00:00:00 neoplasm of breast Medical C enter (procedure) [code = 287433195] Future Scheduled 1963 CT Colonography (combo) [facility] Test 00:00:00 [code = CT Colonography [facility] (combo)] Future Scheduled 1963 Screening for malignant [facility] 00:00:00 neoplasm of colon Medical Ce nter (procedure) [code = 326851030] Future Scheduled 1963 Screening for malignant [facility] 00:00:00 neoplasm of colon Medical Ce nter (procedure) [code = 932202726] Future Scheduled 1963 Sigmoidoscopy [facility]code [facility]oscopy] Medical Cente r Encounters Start End Encounter Admission Attending Care Care Encounter Source Date/Time Date/Time Type Type Clinicians Facility Department ID 2023-03-18 Outpatient Platt, [facility] [id number] Common 10:58:[id number] [facility] 2023-01-18 [facility] [id number] Common 09:19:[id number] [facility] 2023-01-03 Outpatient Platt, [facility] [id number] Common 13:22:[id number] [facility] 2022-09-20 Outpatient Platt, [facility] [id number] Common 09:30:[id number] [facility] 2022-07-09 Outpatient Platt, [facility] [id number] Common 10:44:[address] [facility] 2022-07-06 Outpatient Platt, [facility] [id number] Common 09:19:01 Gloria [facility] 2022-07-05 Outpatient Platt, STLMLC STLMLC [id number] Common 16:24:[address] [facility] 2022-07-01 Outpatient Platt, STLMLC STLMLC [id number] Common 09:38:[address] [facility] 2022-06-29 Outpatient Platt, STLMLC STLMLC [id number] Common 11:52:[address] [facility] 2021-10-28 Outpatient Platt, STLMLC STLMLC [id number] Common 14:00:[address] [facility] 2021-10-28 Outpatient Platt, STLMLC STLMLC [id number] Common 13:48:[address] [facility] 2021-10-28 Outpatient Platt, STLMLC STLMLC [id number] Common 13:04:[address] [facility] 2021-10-28 Outpatient Platt, STLMLC STLMLC [id number] Common 12:33:[address] [facility] 2021-10-28 Outpatient Platt, STLMLC STLMLC [id number] Common 12:32:[address] [facility] 2021-10-28 Outpatient Platt, STLMLC STLMLC [id number] Common 12:11:[id number] [facility] 2021-10-28 Outpatient Platt, STLMLC STLMLC [id number] Common 12:06:[address] [facility] 2021-10-28 Outpatient Platt, STLMLC STLMLC [id number] Common 11:57:[address] [facility] 2021-10-28 Outpatient Platt, STLMLC STLMLC [id number] Common 11:38:[address] [facility] 2021-10-28 Outpatient Platt, STLMLC STLMLC [id number] Common 11:16:[address] [facility] 2021-10-28 Outpatient Platt, STLMLC [facility] [id number] Common 11:11:[id number] [facility] 2021-10-28 Outpatient Platt, STLMLC [facility] [id number] Common 11:09:[address] [facility] 2021-10-28 Outpatient Platt, STLMLC [facility] [id number] Common 11:08:[address] [facility] 2021-10-28 Outpatient Platt, STLC [facility] [id number] Common 11:08:[address] [facility] 2022-11-16 2022-11-16 ROSALBA [place] 2.16.840. 2.16.840.1. C [id number] [facility]oted 21:30:00 22:30:00 [id number]. [id number] [facility] [id number] 2022-11-11 2022-11-11 Telephone Borpa, [facility] [id number] 00:00[facility]00 00:00:00 [facility] 2022-11-11 2022-11-11 Telephone Boror, [facility] [id number] 00:00:00 00:00:00 [facility] 2022-11-10 2022-11-10 (TEL) [facility] [id number] Co mmon 00:00:00 00:00:00 [facility] 2022-11-09 2022-11-09 Outpatient Alex_R DMG DM [id number] [facility] 00:00:00 00:00:00 [id number] 2022-11-09 2022-11-09 Outpatient Alex_R DMG DMG [id number] [facility] 00:00:00 00:00:00 [id number] [facility] 2022-10-29 2022-10-29 (TEL) [facility] [id number] Co mmon 00:00:00 00:00:00 Spirit - [facility] 2022-10-25 2022-10-25 (TEL) [facility] [id number] Co mmon 00:00:00 00:00:00 Spirit - [facility] 2022-09-23 2022-09-23 Outpatient Patsy [facility] [id number] Univers 14:15:10 23:59:00 SHAN ity of [facility] 2022-09-23 2022-09-23 [facility] 1.2.840.114 [id number] Univers 14:15:10 23:59:00 Encounter Shan Cisco INDRA 350.1.13.10 ity [facility] 4.2.7.2.686 [facility] [id number] [facility] 804 Branch 2022-09-23 2022-09-23 Orders Doctor GRISEL 1.2.840.114 [id number] Univers 00:00:00 00:00:00 Only Unassigned, LEONIDES 350.1.13.10 ity of [facility] 4.2.7.2.686 [facility] [id number] [facility] [address] 2022-09-22 2022-09-22 OFFICE [facility] [id number] Co mmon 00:00:00 00:00:00 VISIT Spirit [facility] PT - CHI LEVEL 4 [facility] 2022-09-06 2022-09-06 Telephone Oscar, [facility] [id number] 00:00:00 00:00:00 [facility] 2022-09-06 2022-09-06 Telephone Oscar, [facility] [id number] [id number] 00:00:00 00:00:00 [facility] 2022-09-06 2022-09-06 OFFICE [facility] [id number] Co mmon 00:00:00 00:00:00 VISIT Spirit [facility] PT - CHI LEVEL 4 [facility] 2022-08-11 2022-08-11 Outpatient Patsy [facility] [id number] Univers 00:00:00 00:00:00 SCAR martinez [facility] 2022-07-30 2022-07-30 Outpatient DMG DMG [id number] [facility] 00:00:00 00:00:00 [id number] [facility] 2022-07-29 2022-07-29 Outpatient DMG DMG [id number] Devoted 00:00:00 00:00:00 [id number] [facility] 2022-07-29 2022-07-29 OFFICE STLMLC STLMLC [id number] Co mmon 00:00:00 00:00:00 VISIT Spirit ESTAB PT - CHI LEVEL 4 [facility] 2022-07-26 2022-07-26 [facility] [id number] Univers 11:44:00 15:33:00 NILAY martinez [facility] 2022-07-26 2022-07-26 Emergency LennonRUST [id number] [id number] Univers 11:44:00 15:33:00 Nilay BURRELL 350.1.13.10 ty [facility] 4.2.7.2.686 [facility] [id number] [place] [address] Branch 2022-07-26 2022-07-26 (TEL) STLMLC STLMLC [id number] Co mmon 00:00:00 00:00:00 [facility] 2022-07-14 2022-07-14 (TEL) STLMLC STLMLC [id number] Co mmon 00:00:00 00:00:00 [facility] 2022-07-09 2022-07-09 OFFICE STLMLC STLMLC [id number] Co mmon 00:00:00 00:00:00 VISIT Spirit ESTAB PT - CHI LEVEL 4 [facility] 2022-07-06 2022-07-06 (TEL) STLMLC STLMLC [id number] Co mmon 00:00:00 00:00:00 [facility] 2022-07-05 2022-07-05 (TEL) STLMLC STLMLC [id number] Co mmon 00:00:00 00:00:00 [facility] 2022-06-30 2022-06-30 (HOSP F/U) STLMLC STLMLC [id number] Common 00:00:00 00:00:00 [facility] Follow Up - [facility] 2022-06-23 2022-06-23 (TEL) STLMLC STLC [id number] Co mmon 00:00:00 00:00:00 Spirit - [facility] 2022-06-22 2022-06-22 Transition ERIK PuriRamesh 1.2.840.114 [id number] Univers 00:00:00 00:00:00 of Care Spike Leonarda VEE 350.1.13.10 ity of [place] [id number] [facility] [address] 2022-06-16 2022-06-21 Inpatient X [facility] [id number] Univers 18:03:00 12:23:00 JESUS ity of [facility] 2022-06-16 2022-06-21 Hospital Hill Sawyer [facility] 1.2.840.1 [id number] Univers 18:03:00 12:23:00 Encounter Pauly Wan 350.1.1 3.10 ity of [place] 4.2.7.2.686 [facility] [id number] Medical 081 [address] 2022-06-16 2022-06-16 Orders Doctor GRISEL 1.2.840.114 [id number] Univers 00:00:00 00:00:00 Only Unassigned, LEONIDES 350.1.13.10 ity of [place] [facility] 4.2.7.2.686 Faustino as [phone] [facility] 009 Branch 2022-06-09 2022-06-09 OFFICE STLC STLC [id number] Co mmon 00:00:00 00:00:00 VISIT Spirit ESTAB PT - CHI LEVEL 4 [facility] 2022-06-09 2022-06-09 (TEL) STLC STLC [id number] Co mmon 00:00:00 00:00:00 Spirit - [facility] 2022-06-09 2022-06-09 SUB ANNUAL [facility] [id number] Common 00:00:00 00:00:00 MCR Spirit WELLNESS - CHI VISIT [facility] 2022-05-20 2022-05-20 (TEL) STLC STLC [id number] Co mmon 00:00:00 00:00:00 Spirit - [facility] 2022-05-18 2022-05-18 Telephone Oscar, [facility] [id number] [id number] 00:00:00 00:00:00 [facility] 2022-05-18 2022-05-18 Telephone Oscar, [facility] [id number] [id number] 00:00[facility]00 00:00:00 [facility] 2022-04-14 2022-04-14 Office ISSAC Krueger, [facility] [id number] 13:15:00 14:25:49 Visit [facility] 2022-04-14 2022-04-14 Office Maggie, [facility] [id number] 13:15:00 14:25:49 Visit [facility] 2022-02-09 2022-02-09 OFFICE [facility] [id number] Co mmon 00:00:00 00:00:00 VISIT Spirit ESTAB PT - CHI LEVEL 4 [facility] 2022-01-04 2022-01-04 Outpatient ISSAC KRUEGER [facility] [id number] 09:57:22 12:00:27 [facility] 2021-12-17 2021-12-17 (TEL) [facility] STLC [id number] Co mmon 00:00:00 00:00:00 Spirit - [facility] 2021-10-16 2021-10-16 Outpatient [facility] [id number] Univers 15:06:23 23:59:00 CARLTON martinez of [facility] 2021-10-16 2021-10-16 [facility] [id number] Univers 15:00:00 23:59:00 Encounter Carlton A [place] 350.1.13.10 ity of [facility] [place] [id number] [facility] [address] 2021-10-12 2021-10-12 OFFICE STLMLC STLC [id number] Co mmon 00:00:00 00:00:00 VISIT Juan C TEJA PT - CHI LEVEL 4 [facility] 2021-09-22 2021-09-22 Hospital [facility] [id number] [id number] Univers 10:16:00 12:21:00 Encounter Carlton Brower [place] 350.1.13.10 it[place] [id number] [facility] 071 Branch 2021-09-22 2021-09-22 [facility] [id number] Univers 10:16:00 12:21:00 CARLTON ity [facility] 2021-09-22 2021-09-22 Surgery [facility] 1.2.840.114 [id number] Univers 10:50:00 12:01:00 Carlton RUANOTON 350.1.13.10 i ty of [place] [id number] [facility] 020 Branch 2021-09-22 2021-09-22 Orders Doctor GRISEL 1.2.840.114 [id number] Univers 00:00:00 00:00:00 Only Unassigned, LEONIDES 350.1.13.[address] ity [place] [facility] 4.2.7.2.686 Faustino as [phone] [facility] 009 Branch 2021-09-21 2021-09-21 Outpatient R [facility] [id number] Univers 08:15:00 08:15:00 CARLTON ity [facility] 2021-09-04 2021-09-04 (TEL) STLC STLC [id number] Co mmon 00:00:00 00:00:00 Spirit [facility] 2021-08-20 2021-08-20 Surgery [facility] 1.2.840.114 [id number] Univers 12:50:00 14:12:00 Carlton BURRELL 350.1.13.10 i ty of [place] [id number] [facility] 020 Branch 2021-08-20 2021-08-20 Outpatient R [facility] [id number] Univers 11:19:00 12:57:00 CARLTON ity [facility] 2021-08-20 2021-08-20 [facility] 1.2.745.391 [id number] Univers 11:19:00 12:57:00 Encounter Carlton BURRELL 350.1.13.10 ity of [place] [id number] [facility] 071 Branch 2021-08-20 2021-08-20 Orders Doctor RECINOS 1.2.840.114 [id number] Univers 00:00:00 00:00:00 Only Unassigned, LEONIDES 350.1.13.10 ity of [facility] 4.2.7.2.686 Faust[place] as [phone] [place] [address] Branch 2021-08-17 2021-08-[address] [facility] [id number] Univers 08:45:00 08:45:00 CARLTON y [facility] 2021-07-13 2021-07-13 (TEL) STLMLC STLMLC [id number] Co mmon 00:00:00 00:00:00 [facility] 2021-07-06 2021-07-06 (TEL) STLMLC STLMLC [id number] Co mmon 00:00:00 00:00:00 [facility] 2021-07-02 2021-07-02 Outpatient STLMLC STLMLC [id number] Common 00:00:00 00:00:00 [facility] 2021-06-16 2021-06-16 Outpatient STLMLC STLMLC [id number] Common 00:00:00 00:00:00 [facility] 2021-06-04 2021-06-04 Outpatient STLMLC STLMLC [id number] Common 00:00:00 00:00:00 [facility] 2021-06-01 2021-06-01 Outpatient STLMLC STLMLC [id number] Common 00:00:00 00:00:00 [facility] 2021-05-27 2021-05-27 Outpatient STLMLC STLMLC [id number] Common 00:00:00 00:00:00 [facility] 2021-05-20 2021-05-20 Outpatient STLMLC STLMLC [id number] Common 00:00:00 00:00:00 [facility] 2021-05-20 2021-05-20 Outpatient STLMLC STLMLC [id number] Common 00:00:00 00:00:00 [facility] 2021-04-08 2021-04-08 Outpatient STLMLC STLMLC [id number] Common 00:00:00 00:00:00 [facility] 2021-04-08 2021-04-08 Outpatient STLMLC STLMLC [id number] Common 00:00:00 00:00:00 [facility] 2021-03-25 2021-03-25 Outpatient STLMLC STLMLC [id number] Common 00:00:00 00:00:00 [facility] 2021-02-16 2021-02-16 Outpatient STLMLC STLMLC [id number] Common 00:00:00 00:00:00 [facility] 2021-02-16 2021-02-16 Outpatient STLMLC STLMLC [id number] Common 00:00:00 00:00:00 [facility] 2020-11-26 2020-11-26 Outpatient STLMLC STLMLC [id number] Common 00:00:00 00:00:00 [facility] 2020-11-20 2020-11-20 Outpatient STLMLC STLMLC [id number] Common 00:00:00 00:00:00 [facility] 2020-11-03 2020-11-03 Outpatient STLMLC STLMLC [id number] Common 00:00:00 00:00:00 [facility] 2020-09-09 2020-09-09 Outpatient STLMLC STLMLC [id number] Common 00:00:00 00:00:00 [facility] 2020-09-08 2020-09-08 Outpatient STLMLC STLMLC [id number] Common 00:00:00 00:00:00 [facility] 2020-08-20 2020-08-20 Outpatient STLMLC STLMLC [id number] Common 00:00:00 00:00:00 [facility] 2020-08-07 2020-08-07 Outpatient STLMLC STLMLC [id number] Common 00:00:00 00:00:00 [facility] 2020-07-24 2020-07-24 Outpatient STLMLC STLMLC [id number] Common 00:00:00 00:00:00 [facility] 2020-07-21 2020-07-21 Outpatient STLMLC STLMLC [id number] Common 00:00:00 00:00:00 [facility] 2020-07-21 2020-07-21 Outpatient STLMLC STLMLC [id number] Common 00:00:00 00:00:00 [facility] 2020-07-18 2020-07-18 Outpatient STLMLC STLMLC [id number] Common 00:00:00 00:00:00 [facility] 2020-07-17 2020-07-17 Outpatient STLMLC STLMLC [id number] Common 00:00:00 00:00:00 [facility] 2020-05-15 2020-05-15 [facility] [id number] Common 14:15:00 14:15:[address] [facility] 2020-04-09 2020-04-09 [facility] [id number] Common 08:55:00 08:55:[address] [facility] 2020-04-07 2020-04-07 [facility] [id number] Common 10:34:00 10:34:[address] [facility] 2020-02-13 2020-02-13 Out[facility] [id number] Common 15:00:00 15:00:[address] [facility] 2020-02-13 2020-02-13 Out[facility] [id number] Common 15:00:00 15:00:[address] [facility] 2020-02-08 2020-02-08 Out[facility] [id number] Common 08:47:00 08:47:[address] [facility] 2019-11-19 2019-11-19 Out[facility] [id number] Common 13:00:00 13:00:[address] [facility] 2019-11-12 2019-11-12 Out[facility] [id number] Common 08:28:00 08:28:[address] [facility] 2019-09-11 2019-09-11 Out[facility] [id number] Common 13:30:00 13:30:00 t [facility] Bone [facility] Spiri t and Joint Joint - [facility] 2019-08-16 2019-08-16 [facility] [id number] Common 13:15:00 13:15:[address] [facility] 2019-07-31 2019-07-31 Out[facility] [id number] Common 10:00:00 10:00:00 t Bone Bone and Spiri t and Joint Joint - [facility] 2019-07-30 2019-07-30 [facility] [id number] Common 14:13:00 14:13:00 t Bone Bone and Spiri t and Joint Joint - [facility] 2019-07-27 2019-07-27 Out[facility] [id number] Common 08:51:00 08:51:00 t Bone Bone and Spiri t and Joint Joint - [facility] 2019-07-10 2019-07-10 Out[facility] [id number] Common 10:00:00 10:00:00 t Bone Bone and Spiri t and Joint Joint - [facility] 2019-07-10 2019-07-10 Out[facility] [id number] Common 08:30:00 08:30:[address] [facility] 2019-07-09 2019-07-09 Outpatient [facility] [id number] Common 10:47:00 10:47:[address] [facility] 2019-07-06 2019-07-06 Office DEMETRIUS Harris 1.2.840.114 [id number] 13:15:43 13:45:43 Visit Zenaida AMBULATOR 350.1.13.21 Y 0.2.7.2.686 [id number] 2019-06-20 2019-06-20 [facility] [id number] Common 13:30:00 13:30:00 t Bone Bone and Spiri t and Joint [facility] - [facility] 2019-06-20 2019-06-20 Outpatient [facility] [id number] Common 08:49:00 08:49:[address] [facility] 2019-06-18 2019-06-18 Outpatient [facility] [id number] Common 08:30:00 08:30:[address] [facility] 2019-05-21 2019-05-21 Outpatient [facility] [id number] Common 13:55:00 13:55:[address] [facility] 2019-05-18 2019-05-18 Outpatient [facility] [id number] Common 14:40:00 14:40:[address] [facility] 2019-05-17 2019-05-17 Outpatient [facility] [id number] Common 14:00:00 14:00:[address] [facility] 2019-02-08 2019-02-08 Outpatient [facility] [id number] Common 16:40:00 16:40:[address] [facility] 2019-02-06 2019-02-06 Out[facility] [id number] Common 16:30:00 16:30:[address] [facility] 2019-01-30 2019-01-30 Outpatient [facility] [id number] Common 11:28:00 11:28:[address] [facility] 2019-01-25 2019-01-25 Outpatient [facility] [id number] Common 14:30:00 14:30:[address] [facility] 2018-12-07 2018-12-07 Outpatient [facility] [id number] Common 14:30:00 14:30:[address] [facility] 2018-12-05 2018-12-05 Outpatient [facility] [id number] Common 15:15:00 15:15:00 t Specialty/U Sp anitra Specialty rology - [facility] /[facility] 2018-11-08 2018-11-08 Out[facility] [id number] Common 13:25:00 13:25:[address] [facility] 2018-11-01 2018-11-01 Outpatient [facility] [id number] Common 13:15:00 13:15:[address] [facility] 2018-10-27 2018-10-27 Outpatient [facility] [id number] Common 12:16:00 12:16:[address] [facility] 2018-10-26 2018-10-26 Outpatient [facility] [id number] Common 15:10:00 15:10:00 t Specialty/U Sp anitra Specialty rology - [facility] /[facility] 2018-10-26 2018-10-26 Outpatient Federico Hoang [id number] Common 13:45:00 13:45:00 t Specialty/U Sp anitra Specialty rology - [facility] 2018-10-09 2018-10-09 Outpatient Federico Caballerot [id number] Common 10:45:00 10:45:[address] [facility] 2018-09-13 2018-09-13 Outpatient Federico Hoang [id number] Common 09:40:00 09:40:[address] [facility] 2018-09-11 2018-09-11 Outpatient Federico Hoang [id number] Common 14:30:00 14:30:[address] [facility] Results Test Description Test Time Test Comments Results Result Comments Source BASIC METABOLIC PANEL (NA, K, CL, CO2, GLUCOSE, BUN, 2022-06 11:51:11 CREATININE, [place]) Test Item Value Reference Range Interpretation Comme nts NA (test code = 1910792548) 133 mmol/L 135-145 L K (test code = 8591264034) 3.7 mmol/L 3.5-5 CL (test code = 3291363429) 102 mmol/L 98-108 CO2 TOTAL (test code = 3163413227) 24 mmol/L 23-31 AGAP (test code = 1008159282) 2-16 BUN (test code = 5151972260) 3 mg/dL 7-23 L GLUCOSE (test code = 6547608282) 101 mg/dL 70-110 CREATININE (test code = 0.85 mg/dL 0.5-1.04 6806974777) CALCIUM (test code = 4562615040) 8.7 mg/dL 8.6-10.6 eGFR (test code = 9619439249) mL/min/1.73m2 COLTON (test code = COLTON) Association [...] tests). Lab Interpretation (test code = Abnormal 77832-4) [facility] (ALB,T.PRO,BILI T,BU/BC,ALT,AST,ALK PHOS)2022-06-21 11:50:31 Test Item Value Reference Range Interpretation Comments TOTAL BILI (test code = 5108428421) 0.2 mg/dL 0.1-1.1 BILI UNCON (test code = 7396219674) 0.1 mg/dL 0.1-1.1 BILI CONJ (test code = 5430044052) 0.0 mg/dL 0-0.3 T PROTEIN (test code = 0567839916) 6.0 g/dL 6.3-8.2 L ALBUMIN (test code = 9958681035) 3.5 g/dL 3.5-5 ALK PHOS (test code = 0289331308) 583 U/L 34-122 H ALTv (test code = 1742-6) 139 U/L 5-35 H AST(SGOT) (test code = 2056639617) 55 U/L 13-40 H Lab Interpretation (test code = Abnormal 47849-2) [facility] METABOLIC PANEL (NA, K, CL, CO2, GLUCOSE, BUN, CREATININE, CA)2022-06-20 10:31:12 Test Item Value Reference Range Interpretation Comments NA (test code = 135 mmol/L 135-145 0067239106) K (test code = 2.9 mmol/L 3.5-5 LL 9250957360) CL (test code = 107 mmol/L 98-108 6431320549) CO2 TOTAL (test code = 22 mmol/L 23-31 L 3879415372) AGAP (test code = 2-16 8793388381) BUN (test code = 7-23 L 9563145370) GLUCOSE (test code = 103 mg/dL 70-110 0317498203) CREATININE (test code = 0.73 mg/dL 0.5-1.04 6867284780) CALCIUM (test code = 8.4 mg/dL 8.6-10.6 L 5209083095) eGFR (test code = mL/min/1.73m2 9552519552) COLTON (test code = COLTON) Association of [...] tests). Lab Interpretation Abnormal (test code = 00338-4) [facility] WITH [id number] 09:21:48 Test Item Value Reference Range Interpretation [...] RDW-SD (test code = 40.5 fL 39-49.9 96506-5) RDW-CV (test code = 12.6 % 12-15.5 788-0) PLT (test code = See_Comment H [Automated 777-3) message] The sy stem which generated this result transmitted reference range : 166 - 358 10*3/ ?L. The reference r susana was not used to interpret this result as normal/abnormal . MPV (test code = 9.0 fL 9.5-12.9 L 11729-9) NRBC/100 WBC (test See_Comment [Automat ed code = [id number]) message] The system which generated this result transmitted reference range : 0.0 - 10.0 /100 WBCs. The refer ence range was not u sed to interpret th is result as normal/abnormal . NRBC x10^3 (test code See_Comment [Auto mated = [id number]) message] The s ystem which generated this result transmitted reference range : 10*3/?L. The reference range was not used to interpret this result as normal/abnormal . GRAN MAT (NEUT) % 67.8 % (test code = 770-8) IMM GRAN % (test code 1.20 % = [id number]) LYMPH % (test code = 17.9 % 736-9) MONO % (test code = 11.7 % 5905-5) EOS % (test code = 1.2 % 713-8) BASO % (test code = 0.2 % 706-2) GRAN MAT x10^3(ANC) 4.02 10*3/uL 1.88-7.09 (test code = [id number]) IMM GRAN x10^3 (test 0.07 10*3/uL 0-0.06 H code = [id number]) LYMPH x10^3 (test code 1.06 10*3/uL 1.32-3.29 L = 731-0) MONO x10^3 (test code 0.69 10*3/uL 0.33-0.92 = 742-7) EOS x10^3 (test code = 0.07 10*3/uL 0.03-0.39 711-2) BASO x10^3 (test code 0.01-0.07 = 704-7) Lab Interpretation Abnormal (test code = 71746-9) [id number] 21:07:40 Test Item Value Reference Range Interpretation Comments LAMOTRIGINE (test 3.3 ug/mL 3.0-15.0 INTERPRETI VE code = 6948-4) INFORMATION: ?Lamotrigine Th erapeutic Range: ?3.0-15. 0 ug/mL ?Toxic: ?Greater than or equal t o 20 ug/mL Pharmacok inetics varies widely, particularly wi th co-medications and/or compromised ascencion al function. ?Adve rse effects may inc lude dizziness, somn olence, nausea and vomiting.Perfor med By: [facility] [address] [place], [place] [address]T aboratory Director: Joe Martinez MD, PhD [facility] (77185) (ALB,T.PRO,BILI T,BU/BC,ALT,AST,ALK PHOS)2022-06-18 11:44:08 Test Item Value Reference Range Interpretation Comments TOTAL BILI (test code = 7754060054) 0.4 mg/dL 0.1-1.1 BILI UNCON (test code = 0250700288) 0.1 mg/dL 0.1-1.1 BILI CONJ (test code = 6783328513) 0.0 mg/dL 0-0.3 T PROTEIN (test code = 4380000078) 6.0 g/dL 6.3-8.2 L ALBUMIN (test code = 0741215173) 3.4 g/dL 3.5-5 L ALK PHOS (test code = 9439082463) 608 U/L 34-122 H ALTv (test code = 1742-6) 373 U/L 5-35 H AST(SGOT) (test code = 4732060376) 357 U/L 13-40 H Lab Interpretation (test code = Abnormal 01632-6) [facility] SURFACE [id number] 20:52:12 Test Item Value Reference Range Interpretation Comments HBsAB (test code = Indeterminate 5611845793) HBsAb mIU/mL Semi-Quantitative (test code = 7338787094) COLTON (test code = Unable to determine if COLTON) antibody to Hepatitis B Surface Antigen is present at levels consistent with immunity. ?Patient's immune status should be assessed with other clinical information and/or retesting in 4-6 weeks as clinically indicated. ?If any questions, please contact Clinical Chemistry Director director of land acquisition at .Unable to determine if antibody to Hepatitis B Surface Antigen is present at levels consistent with immunity. ?Patient's immune status should be assessed with other clinical information and/or retesting in 4-6 weeks as clinically indicated. ?If any questions, please contact Clinical Chemistry Director director of land acquisition at .Unable to determine if antibody to Hepatitis B Surface Antigen is present at levels consistent with immunity. ?Patient's immune status should be assessed with other clinical information and/or retesting in 4-6 weeks as clinically indicated. ?If any questions, please contact Clinical Chemistry Director director of land acquisition at .Interpretati on: ?Hepatitis B Surface Antibody ? Negative - Patient is considered to be not immune to infection with HBV. ? ? Positive - Anti-HBs detected at greater than or equal to 12 mIU/mL. ?Patient is considered to be immune to infection with HBV. ? [facility]TIBODY ([facility]M & IGG)2022-06-17 19:04:09 Test Item Value Reference Range Interpretation Comments HBC (test code = 9388855700) Negative HBC Semi-Quantitative (test code = 8222572566) [facility] HospitalHCV [id number] 19:04:09 Test Item Value Reference Range Interpretation Comments HCV Ab (test code = 72826-4) Negative HCV Semi-Quantitative (test code = 72129-1) [facility] [id number] 18:45:46 Test Item Value Reference Range Interpretation Comments HBsAg Semi-Quantitative (test code = Negative Negative 5195-3) [facility] HospitalPROCALCITONIN2022-09-15 16:01:08 Test Item Value Reference Interpretation Comments Range Procalcitonin (test 0.31 ng/mL See_Comment H [Automa carlton code = 2503300270) message] The system which generated this result [...] lung abscess/empyema. For further information please refer to:[email or web address] Lab Interpretation Abnormal (test code = 56248-6) [facility]. METABOLIC PANEL (24000)2022-06-17 13:10:04 Test Item Value Reference Range Interpretation Comments NA (test code = 141 mmol/L 135-145 2004699322) K (test code = 3.5 mmol/L 3.5-5 2687323124) CL (test code = 111 mmol/L 98-108 H 1005373024) CO2 TOTAL (test code = 24 mmol/L 23-31 5479551938) AGAP (test code = 2-16 6968077784) BUN (test code = 8 mg/dL 7-23 0210212797) GLUCOSE (test code = 97 mg/dL 70-110 1914007736) CREATININE (test code = 0.89 mg/dL 0.5-1.04 6832212743) TOTAL BILI (test code = 1.1 mg/dL 0.1-1.7 9240526160) CALCIUM (test code = 8.2 mg/dL 8.6-10.6 L 4155438754) T PROTEIN (test code = 5.8 g/dL 6.3-8.2 L 5476700640) ALBUMIN (test code = 3.2 g/dL 3.5-5 L 2192605091) ALK PHOS (test code = 766 U/L 34-122 H 9475360534) ALTv (test code = 634 U/L 5-35 H 1742-6) AST(SGOT) (test code = 1987 U/L 13-40 H 1540189492) eGFR (test code = mL/min/1.73m2 8634058568) COLTON (test code = COLTON) Association of [...] tests). Lab Interpretation Abnormal (test code = 99072-2) [facility] HospitalTHYROID STIMULATING [id number] 12:33:26 Test Item Value Reference Range Interpretation Comments TSH (test code = See_Comment [Automated message] 8098060243) The system [employer] generated this result transmitted ref erence range: 0.45 - 4 .70 mIU/L. The refe rence range was not u sed to interpret this result as normal/abnor mal. Lab Interpretation (test Normal code = 54029-2) [facility] HospitalTROPONIN [id number] 12:15:04 Test Item Value Reference Interpretation Comments Range TROPONIN I (test 0.006 ng/mL See_Comment [Automated code = 8235235114) message] The system which generated this result [...] biotin. Lab Interpretation Normal (test code = 54801-8) [facility] HospitalN-TERMINAL [id number] 12:11:41 Test Item Value Reference Range Interpretation Comments NT-proBNP (test code 176 pg/mL See_Comment H [Autom ated = 6262002418) message] The system which generated this result transmitted reference range : <=125. The reference range was not used to interpret this result as normal/abnormal . COLTON (test code = COLTON) Biotin has been reported to cause a negative bias, interpret results relative to patient's use of biotin. Lab Interpretation Abnormal (test code = 33124-8) [facility] HospitalLIPID PANEL (33091)(TOTAL CHOLESTEROL, TRIGLYCERIDES, HDL)2022-06-17 12:03:42 Test Item Value Reference Range Interpretation Comments CHOL (test code = 152 mg/dL 120-200 3126058263) HDL (test code = 40 mg/dL See_Comment L [Automated message] 2171848243) The system [employer] generated this result transmit carlton reference range : >=50. The refer ence range was not u sed to interpret th is result as normal/abnormal . HDLC RATIO (test code = See_Comment [Au tomated message] 0218415056) The system [employer] generated this result transmit carlton reference range : <=4.5. The refe rence range was not u sed to interpret th is result as normal/abnormal . TRIG (test code = 102 mg/dL 30-170 8952476840) LDL CHOL (test code = 92 mg/dL See_Comment [Auto mated message] 19749-2) The system [employer] generated this result transmit carlton reference range : <=160. The refe rence range was not u sed to interpret th is result as normal/abnormal . VLDL (test code = 20 mg/dL 5-60 4810625564) Lab Interpretation (test Abnormal code = 02773-3) [facility]MAGNESIUM2022-09-15 12:03:42 Test Item Value Reference Range Interpretation Comments MAGNESIUM (test code = 7090979902) 2.0 mg/dL 1.7-2.4 Lab Interpretation (test code = Normal 87330-5) [facility] HospitalPHOSPHORUS2022-09-15 12:03:21 Test Item Value Reference Range Interpretation Comments PHOSPHORUS (test code = 3557837279) 3.7 mg/dL 2.5-5 Lab Interpretation (test code = Normal 30250-3) [facility] HospitalProthrombin Time / [id number] 10:10:50 Test Item Value Reference Range Interpretation Comments PROTIME PATIENT (test See_Comment [Auto mated message] code = 5964-2) The system wh ich generated this result transmitted ref erence range: 12.0 - 1 4.7 Seconds. The re ference range was not u sed to interpret this result as normal/abnor mal. INR (test code = 6301-6) Nor mal INR <1.1; Warfarin Therap eutic range 2.0 to 3. 0 or 2.5 to 3.5, dep ending upon the indica tions. Lab Interpretation (test Normal code = 44257-1) [facility] WITH [id number] 09:47:03 Test Item Value Reference Range Interpretation [...] RDW-SD (test code = 43.2 fL 39-49.9 60982-2) RDW-CV (test code = 12.6 % 12-15.5 788-0) PLT (test code = See_Comment [Automated 777-3) message] The sy stem which generated this result transmitted reference range : 166 - 358 10*3/ ?L. The reference r susana was not used to interpret this result as normal/abnormal . MPV (test code = 9.0 fL 9.5-12.9 L 03276-5) NRBC/100 WBC (test See_Comment [Automat ed code = 3560058935) message] The system which generated this result transmitted reference range : 0.0 - 10.0 /100 WBCs. The refer ence range was not u sed to interpret th is result as normal/abnormal . NRBC x10^3 (test code See_Comment [Auto mated = 5922180009) message] The s ystem which generated this result transmitted reference range : 10*3/?L. The reference range was not used to interpret this result as normal/abnormal . GRAN MAT (NEUT) % 70.7 % (test code = 770-8) IMM GRAN % (test code 0.50 % = 6140418118) LYMPH % (test code = 15.3 % 736-9) MONO % (test code = 12.0 % 5905-5) EOS % (test code = 1.3 % 713-8) BASO % (test code = 0.2 % 706-2) GRAN MAT x10^3(ANC) 5.85 10*3/uL 1.88-7.09 (test code = 6874926509) IMM GRAN x10^3 (test 0.04 10*3/uL 0-0.06 code = 0177633401) LYMPH x10^3 (test code 1.27 10*3/uL 1.32-3.29 L = 731-0) MONO x10^3 (test code 0.99 10*3/uL 0.33-0.92 H = 742-7) EOS x10^3 (test code = 0.11 10*3/uL 0.03-0.39 711-2) BASO x10^3 (test code 0.01-0.07 = 704-7) Lab Interpretation Abnormal (test code = 61624-3) [facility] HospitalGLYCOSYLATED HEMOGLOBIN (A1C)2022-06-17 06:45:49 Test Item Value Reference Range Interpretation Comments HGB A1C (test code = 5.4 % 4-5.7 4548-4) COLTON (test code = COLTON) Reference RangesNormal: <5.7%Prediabetes: 5.7 - 6.4%Diabetes: > 6.5% Lab Interpretation (test Normal code = 04819-0) [facility] HospitalTROPONIN [id number] 00:41:17 Test Item Value Reference Interpretation Comments Range TROPONIN I (test 0.004 ng/mL See_Comment [Automated code = 1167789362) message] The system which generated this result [...] biotin. Lab Interpretation Normal (test code = 50730-4) [facility] HospitalCB WITH [id number] 00:35:10 Test Item Value Reference Range Interpretation Comments WBC (test code = See_Comment H [Automated 1525-2) message] The sy stem which generated this result transmitted reference range : 4.30 - 11.10 10*3/?L. The reference range was not used to interpret this result as normal/abnormal . RBC (test code = See_Comment [Automated 947-8) message] The sy stem which generated this [...] RDW-SD (test code = 42.3 fL 39-49.9 31508-2) RDW-CV (test code = 12.6 % 12-15.5 788-0) PLT (test code = See_Comment H [Automated 777-3) message] The sy stem which generated this result transmitted reference range : 166 - 358 10*3/ ?L. The reference r susana was not used to interpret this result as normal/abnormal . MPV (test code = 8.7 fL 9.5-12.9 L 52587-9) NRBC/100 WBC (test See_Comment [Automat ed code = 4199096966) message] The system which generated this result transmitted reference range : 0.0 - 10.0 /100 WBCs. The refer ence range was not u sed to interpret th is result as normal/abnormal . NRBC x10^3 (test code See_Comment [Auto mated = 9906770680) message] The s ystem which generated this result transmitted reference range : 10*3/?L. The reference range was not used to interpret this result as normal/abnormal . GRAN MAT (NEUT) % 73.1 % (test code = 770-8) IMM GRAN % (test code 0.40 % = 9880185001) LYMPH % (test code = 13.3 % 736-9) MONO % (test code = 11.8 % 5905-5) EOS % (test code = 1.1 % 713-8) BASO % (test code = 0.3 % 706-2) GRAN MAT x10^3(ANC) 8.51 10*3/uL 1.88-7.09 H (test code = 7701029459) IMM GRAN x10^3 (test 0.05 10*3/uL 0-0.06 code = 5530856662) LYMPH x10^3 (test code 1.55 10*3/uL 1.32-3.29 = 731-0) MONO x10^3 (test code 1.37 10*3/uL 0.33-0.92 H = 742-7) EOS x10^3 (test code = 0.13 10*3/uL 0.03-0.39 711-2) BASO x10^3 (test code 0.03 10*3/uL 0.01-0.07 = 704-7) Lab Interpretation Abnormal (test code = 59682-6) [facility]. METABOLIC PANEL (33291)2022-06-17 00:30:09 Test Item Value Reference Range Interpretation Comments NA (test code = 135 mmol/L 135-145 4708479315) K (test code = 4.4 mmol/L 3.5-5 0970832899) CL (test code = 102 mmol/L 98-108 3389639739) CO2 TOTAL (test code = 22 mmol/L 23-31 L 5774680370) AGAP (test code = 2-16 8962525236) BUN (test code = 9 mg/dL 7-23 6307874540) GLUCOSE (test code = 113 mg/dL 70-110 H 0504147529) CREATININE (test code = 0.89 mg/dL 0.5-1.04 2607888413) TOTAL BILI (test code = 0.7 mg/dL 0.1-1.7 0681455743) CALCIUM (test code = 9.2 mg/dL 8.6-10.6 9944111325) T PROTEIN (test code = 7.4 g/dL 6.3-8.2 0392452592) ALBUMIN (test code = 4.4 g/dL 3.5-5 2628860170) ALK PHOS (test code = 158 U/L 34-122 H 2475146038) ALTv (test code = 20 U/L 5-35 1742-6) AST(SGOT) (test code = 32 U/L 13-40 6142361433) eGFR (test code = mL/min/1.73m2 6990128062) COLTON (test code = COLTON) Association of [...] tests). Lab Interpretation Abnormal (test code = 29924-5) [facility]MAG[facility]UM2022-[facility] 00:30:09 Test Item Value Reference Range Interpretation Comments MAGNESIUM (test code = 7943385378) 2.0 mg/dL 1.7-2.4 Lab Interpretation (test code = Normal 03362-6) [facility] HospitalLIPASE2022-[facility] 00:29:54 Test Item Value Reference Range Interpretation Comments LIPASE (test code = 8368856801) 102 U/L 0-220 Lab Interpretation (test code = Normal 12460-1) [facility] HospitalPOCT [id number] 22:24:44 Test Item Value Reference Range Interpretation Comments POCT Creatinine (test code = 0.7 mg/dL 0.5-1.0 8222659746) Lab Interpretation (test code = Normal 13568-2) [facility] HospitalLIPASE2019-10-01 06:29:00 Test Item Value Reference Range Interpretation Comments LIPASE (BEAKER) (test code = 749) 48 U/L 8-78 COMPREHENSIVE METABOLIC [id number] 06:29:00 Test Item Value Reference Range Interpretation [...] PATIEN TS. CBC W/PLT COUNT & AUTO [id number] 05:57:00 Test Item Value Reference Range Interpretation [...] 413) RAD, ABDOMEN SERIES W/ UPRIGHT PA [id number] 13:35:00Reason for exam:- >Postoperative distentionShould this be [...] Horne MDReport Verified Date/Time: 07/02/2019 13:35:05 Reading Location:[facility] Radiology Reading Room [id number] 06:54:00 Test Item Value Reference Range Interpretation Comments LIPASE (BEAKER) (test code = 749) 56 U/L 8-78 COMPREHENSIVE METABOLIC [id number] 06:54:00 Test Item Value Reference Range Interpretation [...] PATIEN TS. CBC W/PLT COUNT & AUTO [id number] 06:31:00 Test Item Value Reference Range Interpretation [...] = 2801) CBC W/PLT COUNT & AUTO [id number] 06:59:00 Test Item Value Reference Range Interpretation [...] 0-1 PERCENT (BEAKER) (test code = 2801) [id number] 06:51:00 Test Item Value Reference Range Interpretation Comments LIPASE (BEAKER) (test code = 749) 53 U/L 8-78 COMPREHENSIVE METABOLIC [id number] 06:51:00 Test Item Value Reference Range Interpretation [...] PATIEN TS. CBC W/PLT COUNT & AUTO [id number] 06:20:00 Test Item Value Reference Range Interpretation [...] GRANULOCYTES-RELATIVE PERCENT (BEAKER) (test code = 2801) [id number] 05:44:00 Test Item Value Reference Range Interpretation Comments LIPASE (BEAKER) (test code = 749) 52 U/L 8-78 COMPREHENSIVE METABOLIC [id number] 05:44:00 Test Item Value Reference Range Interpretation [...] S NOT APPLICABLE FOR DIALYSIS PATIEN TS. [id number] 05:21:00 Test Item Value Reference Range Interpretation Comments LIPASE (BEAKER) (test code = 749) 72 U/L 8-78 COMPREHENSIVE METABOLIC [id number] 05:21:00 Test Item Value Reference Range Interpretation [...] PATIEN TS. CBC W/PLT COUNT & AUTO [id number] 05:14:00 Test Item Value Reference Range Interpretation [...] 0-1 PERCENT (BEAKER) (test code = 2801) [id number] 05:17:00 Test Item Value Reference Range Interpretation Comments LIPASE (BEAKER) (test code = 749) 55 U/L 8-78 COMPREHENSIVE METABOLIC [id number] 05:17:00 Test Item Value Reference Range Interpretation [...] PATIEN TS. CBC W/PLT COUNT & AUTO [id number] 04:59:00 Test Item Value Reference Range Interpretation [...] WBC 0-0 (BEAKER) (test code = 413) [id number] 07:03:00 Test Item Value Reference Range Interpretation Comments LIPASE (BEAKER) (test code = 749) 40 U/L 8-78 COMPREHENSIVE METABOLIC [id number] 07:03:00 Test Item Value Reference Range Interpretation [...] PATIEN TS. CBC W/PLT COUNT & AUTO [id number] 06:03:00 Test Item Value Reference Range Interpretation [...] 0-1 PERCENT (BEAKER) (test code = 2801) [id number] 07:19:00 Test Item Value Reference Range Interpretation Comments LIPASE (BEAKER) (test code = 749) 37 U/L 8-78 COMPREHENSIVE METABOLIC [id number] 07:19:00 Test Item Value Reference Range Interpretation [...] PATIEN TS. CBC W/PLT COUNT & AUTO [id number] 05:30:00 Test Item Value Reference Range Interpretation [...] (BEAKER) (test code = 2801) BASIC METABOLIC [id number] 20:44:00 Test Item Value Reference Range Interpretation [...] 0-0 (BEAKER) (test code = 413) PROTHROMBIN TIME/[id number] 15:49:00 Test Item Value Reference Range Interpretation [...] mechanical heart valves.RAD, CHEST, 1 VIEW, NON [id number] 15:13:00Reason for exam:->preopShould this be performed at the bedside?->YesFINAL REPORT INDICATION: preop COMPARISON: None TECHNIQUE: Single frontal view of the chest. FINDINGS: Lungs and pleura: Clear lungs. No effusion.Heart and mediastinum: Normal heart size. Unremarkable mediastinal contours.Osseous structures: No acute abnormality.Other: None. IMPRESSION: No acute intrathoracic abnormality. Signed: Charmaine Soliz MDReport Verified Date/Time: 06/25/2019 15:13:30 Reading Location: [facility] Radiology Reading Room [id number] 11:37:00 Test Item Value Reference Range Interpretation Comments LIPASE (BEAKER) (test code = 749) 168 U/L 8-78 H COMPREHENSIVE METABOLIC [id number] 11:37:00 Test Item Value Reference Range Interpretation [...] PATIEN TS. CBC W/PLT COUNT & AUTO [id number] 11:16:00 Test Item Value Reference Range Interpretation [...] % 0-1 PERCENT (BEAKER) (test code = 5696)"
[2023-04-13] MEDS ORDERED: NA CHLORIDE 0.9% 1,000 ML ONE (11:00)
[2023-04-13 11:02] LABS: Absolute Lymphocytes (CBC) 1.8 K/uL (0.7-4.9); Hematocrit 39.1 % (36.0-45.0); Lymphocytes % 36.8 % (15.3-44.8); MCV 92.3 fL (80-100); MPV 6.9 fL (7.6-11.3); RBC Red Blood Cell Count 4.23 M/uL (3.86-4.86)
[2023-04-13 11:08] LABS: Protime INR 0.94
[2023-04-13 11:21] LABS: Albumin 3.4 g/dL (3.4-5.0); Bilirubin Direct 0.1 mg/dL (0-0.2); Bilirubin Indirect, Calculated 0.2 mg/dL (0.2-0.8); Bilirubin Total 0.3 mg/dL (0.2-1.0); Magnesium 2.2 mg/dL (1.6-2.4); Potassium 3.9 mEq/L (3.5-5.1); Protein, Total 6.4 g/dL (6.4-8.2); Troponin High Sensitivity 3.6 pg/mL (<58.9)
[2023-04-13] MEDS ORDERED: FOLIC ACID 5 MG/ML VIAL ONE (11:25)
--- NOTE | 2023-04-13 12:09 | RAD REPORT ---
EXAM DESCRIPTION: US - CP - 04/13/2023 11:41 am CLINICAL HISTORY: DIZZINESS COMPARISON: Head C Spine Mpr Wo Con dated 04/08/2023 TECHNIQUE: Real-time sonographic grayscale, color duplex, and spectral wave Doppler evaluation of jones carotid systems was performed. FINDINGS: Normal high resistance waveforms are noted in both external carotid arteries. The common c arotid arteries and internal carotid arteries show normal low resistance waveforms. Mild plaque formation seen at both carotid bulbs, with smooth mildly echogenic plaque. Peak systolic velocity less than 125 cm/ sec bilaterally. ICA/CCA peak systolic ratios less than 2.0 bilaterally. Antegrade flow seen in both vertebral arteries. IMPRESSION: Mild atherosclerotic changes noted at the carotid bulbs bilaterally. Less than 50% stenosis of the internal carotid arteries. Evaluation of carotid artery stenosis, if any, is reported based on consensus recommendations of the Society of Radiologists in Ultrasound (Damian et al., Radiology, 2003)
--- NOTE | 2023-04-13 12:16 | RAD REPORT ---
EXAM DESCRIPTION: RADChest Single View04/13/2023 12:11 pm CLINICAL HISTORY: COUGH COMPARISON: Chest Single View dated 04/08/2023; Chest Pa And Lat (2 Views) dated 07/21/2020; Chest Sin gle View dated 10/18/2018; ABDOMEN ACUTE SERIES dated 01/29/2015 TECHNIQUE: Portable AP view of the chest. FINDINGS: The lungs are clear. No pneumothorax or effusion. The cardiomediastinal contours are unre markable. IMPRESSION: No acute cardiopulmonary process.
--- NOTE | 2023-04-13 12:20 | EDPHYS ---
Physician Documentation [facility] Name: Janice Bosch Age: 57 yrs Sex: Female : 1965 Arrival Date: 04/13/2023 Time: 10:06 Bed 16 Private MD: L[facility] ED Physician Mj Jang HPI: 04/13 10:55 This 57 yrs old Female presents to ER via Wheelchair with complaints of Head ellis pressure, Vision Problem. 10:55 The patient has experienced syncope, collapsed. Onset: The symptoms/episode ellis began/occurred 2 day(s) ago. Duration: The patient has had multiple episodes, that last an unknown period of time. Context: the episode(s) was witnessed, by no one, occurred at home. Associated injury: The patient did not suffer any apparent associated injury. Associated signs and symptoms: Pertinent positives:. Historical: - Allergies: 10:18 Reglan; ll1 10:18 Requip; ll1 - PMHx: 10:18 Bipolar disorder; bowel obstruction; Fibromyalgia; Hypertension; ibs; Migraines; ll1 - PSHx: 10:18 section; Cholecystectomy; Appendectomy; Gastric Bypass; hysterectomy; ll1 - Immunization history:: Client reports receiving the 2nd dose of the Covid vaccine. - Social history:: Smoking status: Patient denies any tobacco usage or history of. ROS: 11:06 Constitutional: Negative for fever, chills, and weight loss, Eyes: Negative for injury, ellis pain, redness, and discharge, ENT: Negative for injury, pain, and discharge, Neck: Negative for injury, pain, and swelling, Cardiovascular: Negative for chest pain, palpitations, and edema, Respiratory: Negative for shortness of breath, cough, wheezing, and pleuritic chest pain, Abdomen/GI: Negative for abdominal pain, nausea, vomiting, diarrhea, and constipation, Back: Negative for injury and pain, : Negative for injury, bleeding, discharge, and swelling, MS/Extremity: Negative for injury and deformity, Skin: Negative for injury, rash, and discoloration, Psych: Negative for depression, anxiety, suicide ideation, homicidal ideation, and hallucinations, Allergy/Immunology: Negative for hives, rash, and allergies, Endocrine: Negative for neck swelling, polydipsia, polyuria, polyphagia, and marked weight changes, Hematologic/Lymphatic: Negative for swollen nodes, abnormal bleeding, and unusual bruising. 11:06 Neuro: Positive for syncope, near syncope, tingling, weakness. Exam: 11:06 Constitutional: This is a well developed, well nourished patient who is awake, alert, ellis and in no acute distress. Head/Face: Normocephalic, atraumatic. Eyes: Pupils equal round and reactive to light, extra-ocular motions intact. Lids and lashes normal. Conjunctiva and sclera are non-icteric and not injected. Cornea within normal limits. Periorbital areas with no swelling, redness, or edema. ENT: Nares patent. No nasal discharge, no septal abnormalities noted. Tympanic membranes are normal and external auditory canals are clear. Oropharynx with no redness, swelling, or masses, exudates, or evidence of obstruction, uvula midline. Mucous membranes moist. Neck: Trachea midline, no thyromegaly or masses palpated, and no cervical lymphadenopathy. Supple, full range of motion without nuchal rigidity, or vertebral point tenderness. No Meningismus. Chest/axilla: Normal chest wall appearance and motion. Nontender with no deformity. No lesions are appreciated. Cardiovascular: Regular rate and rhythm with a normal S1 and S2. No gallops, murmurs, or rubs. Normal PMI, no JVD. No pulse deficits. Respiratory: Lungs have equal breath sounds bilaterally, clear to auscultation and percussion. No rales, rhonchi or wheezes noted. No increased work of breathing, no retractions or nasal flaring. Abdomen/GI: Soft, non-tender, with normal bowel sounds. No distension or tympany. No guarding or rebound. No evidence of tenderness throughout. Back: No spinal tenderness. No costovertebral tenderness. Full range of motion. Female : Normal external genitalia. Skin: Warm, dry with normal turgor. Normal color with no rashes, no lesions, and no evidence of cellulitis. MS/ Extremity: Pulses equal, no cyanosis. Neurovascular intact. Full, normal range of motion. Psych: Awake, alert, with orientation to person, place and time. Behavior, mood, and affect are within normal limits. 11:06 Neuro: Orientation: is normal, appropriate for stated age, no acute changes, Mentation: is normal, appropriate for stated age, no acute changes, Memory: appropriate for stated age, no acute changes, Cranial nerves: grossly normal, is grossly normal based on the patient's age, no acute changes, Cerebellar function: is grossly normal, is grossly normal based on the patient's age, no acute changes, Motor: strength is 4/5 in the right leg and left leg, Sensation: is normal, no obvious gross deficits, appropriate tingling, that is mild, of the right arm and left arm, Gait: not tested. Babinski testing is normal. 11:41 ECG was reviewed by the Attending Physician. [facility] Vital Signs: 10:18 BP 139 / 89; Pulse 77; Resp 17; Temp 98; Pulse Ox 99% on R/A; Weight 56.7 kg; Height 5 ll1 ft. 2 in. ; Pain 8/10; 11:52 BP 145 / 83; Pulse 68; Resp 14 S; Pulse Ox 100% on R/A; kc6 13:10 BP 132 / 79; Pulse 67; Resp 19 S; Pulse Ox 100% on R/A; kc6 14:00 BP 145 / 80; Pulse 66; Resp 19 S; Pulse Ox 100% on R/A; kc6 10:18 Body Mass Index 22.86 (56.70 kg, 157.48 cm) ll1 10:18 Pain Scale: Adult ll1 MDM: 10:12 Patient medically screened. [facility] 11:08 Differential Diagnosis: aortic aneurysm, cardiac arrhythmia, cerebrovascular accident, ellis emotional response, seizure, transient ischemic attack, vasovagal episode. Data reviewed: vital signs, nurses notes, lab test result(s), EKG, radiologic studies, CT scan, doppler, MRI, plain films. Consideration of Admission/Observation Escalation of care including admission/observation considered. Management of patient was discussed with the following: Hat Former: dr gao. Independent interpretation of the following test(s) in the Emergency Department EKG: See my EKG interpretation above. Test considered but Not performed: Ultrasound no abd usg. Care significantly affected by the following chronic conditions: Hypertension, fibro, bipolar , ibs. 04/13 10:48 Order name: Basic Metabolic Panel; Complete Time: 11:44 [facility] 04/13 10:48 Order name: CBC with Diff; Complete Time: 11:44 [facility] 04/13 10:48 Order name: LFT's; Complete Time: 11:44 [facility] 04/13 10:48 Order name: Magnesium; Complete Time: 11:44 [facility] 04/13 10:48 Order name: NT PRO-BNP; Complete Time: 11:44 [facility] 04/13 10:48 Order name: PT-INR; Complete Time: 11:44 [facility] 04/13 10:48 Order name: Troponin HS; Complete Time: 11:44 [facility] 04/13 10:48 Order name: Urinalysis w/ reflexes [facility] 04/13 16:27 Order name: Phosphorus EDMS 04/13 16:27 Order name: T4 Free EDMS 04/13 16:27 Order name: Magnesium EDMS 04/13 16:27 Order name: Thyroid Stimulating Hormone EDMS 04/13 10:48 Order name: XRAY Chest (1 view); Complete Time: 12:59 [facility] 04/13 10:48 Order name: US Carotid Artery Bilateral; Complete Time: 12:15 [facility] 04/13 10:55 Order name: Echo w/ Doppler [facility] 04/13 12:50 Order name: Brain Wo Cont; Complete Time: 13:51 EDWY 04/13 15:04 Order name: ERT ORTHOSTATIC V/S EDMS 04/13 15:04 Order name: ERT ORTHOSTATIC V/S EDMS 04/13 15:04 Order name: ERT ORTHOSTATIC V/S EDMS 04/13 15:04 Order name: ERT ORTHOSTATIC V/S EDMS 04/13 15:04 Order name: ERT ORTHOSTATIC V/S EDMS 04/13 15:04 Order name: ERT ORTHOSTATIC V/S EDMS 04/13 15:04 Order name: ERT ORTHOSTATIC V/S EDMS 04/13 10:48 Order name: EKG; Complete Time: 10:48 [facility] 04/13 10:48 Order name: Cardiac monitoring; Complete Time: 10:49 [facility] 04/13 10:48 Order name: EKG - Nurse/Tech; Complete Time: 10:49 [facility] 04/13 10:48 Order name: IV Saline Lock; Complete Time: 10:49 [facility] 04/13 10:48 Order name: Labs collected and sent; Complete Time: 10:49 [facility] 04/13 10:48 Order name: O2 Per Protocol; Complete Time: 10:49 [facility] 04/13 10:48 Order name: O2 Sat Monitoring; Complete Time: 10:49 [facility] EC:41 Rate is 72 beats/min. Rhythm is regular. QRS [place] is Normal. [place] interval is normal. QRS ellis interval is normal. QT interval is normal. No Q waves. T waves are Normal. No ST changes noted. Clinical impression: NSR w/ Non-specific ST/T Changes and No evidence of ischemia. Interpreted by me. Reviewed by me. Administered Medications: 10:55 Drug: NS 0.9% IV 1000 ml Route: IV; Rate: 1 bolus; Site: left antecubital; kc6 12:19 Follow up: Response: No adverse reaction; IV Status: Completed infusion; IV Intake: kc6 1000ml 11:51 Drug: foLIC Acid IVPB 1 mg Route: IVPB; Site: left antecubital; kc6 12:19 Follow up: Response: No adverse reaction; IV Status: Completed infusion kc6 12:18 Drug: Benztropine IVP 1 mg Route: IVP; Site: left antecubital; kc6 12:40 Follow up: Response: No adverse reaction kc6 Disposition Summary: 04/13/23 12:19 Hospitalization Ordered Hospitalization Status: Observation ellis Provider: Sam Strong cha Location: Telemetry/MedSur (observation) ellis Condition: Fair ellis Problem: new ellis Symptoms: have improved ellis Bed/Room Type: Standard ellis Room Assignment: 211(04/13/23 15:58) dw Diagnosis - Repeated falls ellis - Syncope Near ellis - Adverse effect of unspecified drugs, medicaments and biological substances ellis Discharge Instructions: - Discharge Summary Sheet ellis - Near-Syncope ellis - Syncope ellis - Weakness ellis - Near-Syncope, [id number] ellis - Syncope, [id number] ellis - Weakness, [id number] ellis Forms: - Medication Reconciliation Form ellis - SBAR form ellis Signatures: Dispatcher [employer] EDLiza oPwers RN RN dw Anderson, Corey, MD MD cha Lewis, Lynsay, RN RN ll1 Cecilia Mcguire RN RN kc6 Corrections: (The following items were deleted from the chart) 12:50 10:48 MR STROKE PROTOCOL+MRI.RAD.BRZ ordered. EDWY EDMS 15:58 12:19 ellis dw
--- NOTE | 2023-04-13 12:20 | ER ---
Nurse's Notes [facility] Name: Janice Bosch Age: 57 yrs Sex: Female : 1965 Arrival Date: 04/13/2023 Time: 10:06 Bed 16 Private MD: Davin Platt Diagnosis: Repeated falls;Syncope Near;Adverse effect of unspecified drugs, medicaments and biological substances Presentation: 04/13 10:18 Chief complaint: Patient states: Head pressure, dizziness continues since her last ll1 visit here on Tuesday. Vision changes started today. reported syncopal event last night. Vertigo medication did not help. Coronavirus screen: Vaccine status: Patient reports receiving the 2nd dose of the covid vaccine. Client denies travel out of the [place] in the last 14 days. At this time, the client does not indicate any symptoms associated with coronavirus-19. Ebola Screen: Patient denies travel to an Ebola-affected area in the 21 days before illness onset. Initial Sepsis Screen: Does the patient meet any 2 criteria? No. Patient's initial sepsis screen is negative. Does the patient have a suspected source of infection? No. Patient's initial sepsis screen is negative. Risk Assessment: Do you want to hurt yourself or someone else? Patient reports no desire to harm self or others. Onset of symptoms was April 08, 2023. 10:18 Method Of Arrival: Wheelchair ll1 10:18 Acuity: BONITA 3 ll1 Triage Assessment: 10:22 General: Appears distressed, uncomfortable, ill, Behavior is cooperative, flat. Pain: ll1 Complains of pain in head Quality of pain is described as aching, throbbing. Neuro: Reports blurred vision diplopia, dizziness, headache a syncopal episode weakness. Historical: - Allergies: 10:18 Reglan; ll1 10:18 Requip; ll1 - PMHx: 10:18 Bipolar disorder; bowel obstruction; Fibromyalgia; Hypertension; ibs; Migraines; ll1 - PSHx: 10:18 section; Cholecystectomy; Appendectomy; Gastric Bypass; hysterectomy; ll1 - Immunization history:: Client reports receiving the 2nd dose of the Covid vaccine. - Social history:: Smoking status: Patient denies any tobacco usage or history of. Screenin:21 [facility] ED Fall Risk Assessment (Adult) History of falling in the last 3 months, kc6 including since admission Yes- physiologic fall (2 pts) Confusion or Disorientation No (0 pts) Intoxicated or Sedated No (0 pts) Impaired Gait No (0 pts) Mobility Assist Device Used No (0 pt) Altered Elimination No (0 pt) Score/Fall Risk Level 0 - 2 = Low Risk Oriented to surroundings, Maintained a safe environment, Educated pt \T\ family on fall prevention, incl call for assistance when getting out of bed, Assessed \T\ reinforced patient's understanding of fall precautions, Hourly rounding (assess needs \T\ fall precautionary measures) done. Abuse screen: Denies threats or abuse. Denies injuries from another. Nutritional screening: No deficits noted. Tuberculosis screening: No symptoms or risk factors identified. Assessment: 10:22 General: Appears in no apparent distress. uncomfortable, Behavior is cooperative, kc6 appropriate for age, anxious. Pain: Complains of pain in head. Neuro: Level of Consciousness is awake, alert, obeys commands, Oriented to person, place, time, situation, Appropriate for age Moves all extremities. Speech is normal, Facial symmetry appears normal, Pupils are PERRLA. Cardiovascular: Heart tones S1 S2 present Capillary refill < 3 seconds. Respiratory: Airway is patent Trachea midline Respiratory effort is even, unlabored, Respiratory pattern is regular, symmetrical. GI: No signs and/or symptoms were reported involving the gastrointestinal system. : No signs and/or symptoms were reported regarding the genitourinary system. EENT: Reports blurred vision. Derm: No signs and/or symptoms reported regarding the dermatologic system. Skin is intact, is healthy with good turgor, Skin is pink, warm \T\ dry. Musculoskeletal: No signs and/or symptoms reported regarding the musculoskeletal system. Circulation, motion, and sensation intact. Capillary refill < 3 seconds, Range of motion: intact in all extremities. 10:50 Reassessment: pt to US via wheel chair. kc6 11:50 Reassessment: pt returned from US via wheelchair. pt appears to be unstable on her feet kc6 with shuffled gait while ambulating from wheelchair to bed. 11:50 Reassessment: Patient appears in no apparent distress at this time. No changes from kc6 previously documented assessment. Patient and/or family updated on plan of care and expected duration. Pain level reassessed. Patient is alert, oriented x 3, equal unlabored respirations, skin warm/dry/pink. 12:40 Reassessment: pt to MRI via stretcher. kc6 12:50 Reassessment: Patient appears in no apparent distress at this time. No changes from kc6 previously documented assessment. Patient and/or family updated on plan of care and expected duration. Pain level reassessed. Patient is alert, oriented x 3, equal unlabored respirations, skin warm/dry/pink. 13:50 Reassessment: Patient appears in no apparent distress at this time. No changes from kc6 previously documented assessment. Patient and/or family updated on plan of care and expected duration. Pain level reassessed. Patient is alert, oriented x 3, equal unlabored respirations, skin warm/dry/pink. 14:30 Reassessment: Patient appears in no apparent distress at this time. No changes from kc6 previously documented assessment. Patient and/or family updated on plan of care and expected duration. Pain level reassessed. Patient is alert, oriented x 3, equal unlabored respirations, skin warm/dry/pink. 16:43 Reassessment: attempted to call report, nurse unavailable. just started blood. kc6 17:04 Reassessment: attempted to call report, nurse unavailable. kc6 Vital Signs: 10:18 BP 139 / 89; Pulse 77; Resp 17; Temp 98; Pulse Ox 99% on R/A; Weight 56.7 kg; Height 5 ll1 ft. 2 in. ; Pain 8/10; 11:52 BP 145 / 83; Pulse 68; Resp 14 S; Pulse Ox 100% on R/A; kc6 13:10 BP 132 / 79; Pulse 67; Resp 19 S; Pulse Ox 100% on R/A; kc6 14:00 BP 145 / 80; Pulse 66; Resp 19 S; Pulse Ox 100% on R/A; kc6 10:18 Body Mass Index 22.86 (56.70 kg, 157.48 cm) ll1 10:18 Pain Scale: Adult ll1 ED Course: 10:08 Patient arrived in ED. im 10:09 Davin Platt DO is Private Physician. im 10:11 Cecilia Mcguire, LEONID is Primary Nurse. kc6 10:11 Arm band placed on Patient placed in an exam room, on a stretcher. ll1 10:12 Mj Jang MD is Attending Physician. ellis 10:15 Notified ED physician of other patient signs/symptoms. ll1 10:21 Inserted saline lock: 20 gauge in left antecubital area, using aseptic technique. Blood kc6 collected. 10:22 Triage completed. ll1 10:23 Patient has correct armband on for positive identification. Bed in low position. Call kc6 light in reach. Side rails up X2. Adult w/ patient. 10:26 EKG done, by ED staff, reviewed by Mj Jang MD. mb4 10:28 Lights dimmed. Warm blanket given. Client placed on continuous cardiac and pulse mb4 oximetry monitoring. NIBP monitoring applied. school bus monitor on. Pulse ox on. NIBP on. 11:43 US Carotid Artery Bilateral In Process Unspecified. EDMS 12:13 XRAY Chest (1 view) In Process Unspecified. EDMS 12:18 Sam Strong MD is Hospitalizing Provider. ellis 12:59 Brain Wo Cont In Process Unspecified. EDMS 18:22 No provider procedures requiring assistance completed. Patient admitted, IV remains in kc place. Administered Medications: 10:55 Drug: NS 0.9% IV 1000 ml Route: IV; Rate: 1 bolus; Site: left antecubital; [facility] 12:19 Follow up: Response: No adverse reaction; IV Status: Completed infusion; IV Intake: kc6 1000ml 11:51 Drug: foLIC Acid IVPB 1 mg Route: IVPB; Site: left antecubital; kc6 12:19 Follow up: Response: No adverse reaction; IV Status: Completed infusion [facility] 12:18 Drug: Benztropine IVP 1 mg Route: IVP; Site: left antecubital; kc6 12:40 Follow up: Response: No adverse reaction [facility] Medication: 18:23 VIS not applicable for this client. kc Intake: 12:19 IV: 1000ml; Total: 1000ml. [facility] Outcome: 12:19 Decision to Hospitalize by Provider. ellis 18:22 Admitted to Med/surg accompanied by tech, via wheelchair, with chart, Report called to [facility] April Lomax RN 18:22 Condition: stable 18:22 Instructed on the need for admit. 18:23 Patient left the ED. [facility] Signatures: Dispatcher [employer] Mj Johnson MD MD cha Baxter, Mackenzie mb4 Shade Storm RN RN ll1 Cecilia Mcguire RN RN kc6 Jessenia Nash Corrections: (The following items were deleted from the chart) 11:52 10:50 Reassessment: pt to US and MRI via wheel chair kc6 kc6
[2023-04-13] MEDS ORDERED: BENZTROPINE 2 MG/2 ML VIAL ONE (12:22)
--- NOTE | 2023-04-13 13:15 | RAD REPORT ---
EXAM DESCRIPTION: MRI - Brain Wo Cont - 04/13/2023 12:58 pm CLINICAL HISTORY: Dizziness;Syncope COMPARISON: Head C Spine Mpr Wo Con dated 04/08/2023 TECHNIQUE: Sagittal T1-weighted images were obtained along with PD/heavily T2-weighted and T2-FLAIR images. Axial DWI and ADC mapping sequences were also obtained along with coronal heavily T2-weighted images were obtained. FINDINGS: No intracranial hemorrhage, mass or acute infarction. There is no edema or shift of midlin e structures. No extra-axial fluid collections. Signal voids are seen as a normal finding in the randolph r intracranial vessels. No significant white matter disease. Mastoid air cells and paranasal sinuses are clear. IMPRESSION: Negative non-contrast MRI of the Brain.
[2023-04-13] MEDS ORDERED: ACETAMINOPHEN 325 MG TABLET PO PRN (15:00)
[2023-04-13] MEDS ORDERED: HYDROCODONE/APAP 5/325 MG TAB PO PRN (15:00)
[2023-04-13] MEDS ORDERED: HYDRALAZINE HCL 20 MG/ML VIAL IV PRN (15:22)
--- NOTE | 2023-04-13 15:22 | P.HP ---
Certification for Inpatient Patient admitted to: Observation With expected LOS: <2 Midnights Patient will require the following post-hospital care: None Practitioner: I am a practitioner with admitting privileges, knowledge of patient current condition, hospital course, and medical plan of care. Services: Services provided to patient in accordance with Admission requirements found in Title 42 Section 412.3 of the Code of Federal Regulations Patient History Date of Service: 04/13/23 Reason for admission: Headache, head pressure and syncope History of Present Illness: Patient is a 57-year-old female with a past medical history significant for bipolar disorder, fibromyalgia, depression, hypertension, migraine headache, IBS, anxiety disorder, insomnia, who presents with complaint of headache, head pressure and syncope. Patient reported that she was seen in the ER on Tuesday last week for similar symptoms. Patient's spouse reported that patient was found on the floor yesterday. Patient cannot remember falling. Patient reported that she has been having episode of dizziness for quite some time now. Patient reported new onset of blurry vision yesterday. Patient reported that she has not been able to walk due to weakness. Reported associated signs and symptoms of fatigue and nausea. Patient denies any other signs or symptoms. S ymptoms are aggravated or relieved by nothing. Patient decided to present to the hospital for medical evaluation. Allergies metoclopramide HCl [From Reglan] Allergy (Mild, Verified 01/05/23 08:48) Hives/Rash ropinirole HCl [From Requip] Allergy (Mild, Verified 01/05/23 08:48) Nausea/Vomiting Home Medications: Ziprasidone [Geodon*] 60 mg PO DAILY 04/25/13 Tizanidine [Zanaflex] 4 mg PO BEDTIME PRN PRN 07/21/20 Diclofenac Sodium 2 tab PO DAILY 11/17/22 Hydrocodone Bit/Acetaminophen [Shiloh 7.5-325 Tablet] 1 each PO TIDP PRN 11/17/22 LORazepam [Ativan] 2 tab PO BID PRN 11/17/22 Venlafaxine HCl [Effexor Xr] 1 tab PO DAILY 11/17/22 Zolpidem Tartrate [Ambien Cr] 1 tab PO BEDTIME 11/17/22 lamoTRIgine [Lamictal] 200 mg PO DAILY 11/17/22 Levothyroxine [Synthroid] 50 mcg PO [id number] 01/04/23 Pantoprazole [Protonix Tab] 40 mg PO DAILY 01/04/23 Propranolol HCl 20 mg PO BID 01/04/23 hydrOXYzine HCL [Atarax] 50 mg PO BIDP PRN 01/04/23 Cholecalciferol (Vitamin D3) [Vitamin D3] 1,000 unit PO DAILY 01/05/23 Multivitamin 1 each PO DAILY 01/05/23 - Past Medical/Surgical History Diabetic: No -: Intestinal blockage -: Bipolar disorder, , depression, hypertension, migraine head -: Fibromyalgia -: Hypertension -: Migraine headache -: IBS -: Anxiety disorder -: Insomnia -: 2 csec -: hyst -: appy -: anderson - Family History Family History: Reviewed- Non-Contributory - Social History Smoking Status: Never smoker Alcohol use: No CD- Drugs: No Caffeine use: No Place of Residence: Home Review of Systems General: Weakness, Other (Fatigue) Eyes: Vision Change ENT: Unremarkable Respiratory: Unremarkable Cardiovascular: Unremarkable Gastrointestinal: Nausea Genitourinary: Unremarkable Musculoskeletal: Unremarkable Integumentary: Unremarkable Neurological: Other (Dizziness, headache, syncope, weakness) Physical Examination - Physical Exam General: Alert, In no apparent distress, Oriented x3, Cooperative HEENT: Atraumatic, PERRLA, Mucous membr. moist/pink, EOMI, Sclerae nonicteric Neck: Supple, 2+ carotid pulse no bruit, No LAD, Without JVD or thyroid abnormality Respiratory: Clear to auscultation bilaterally, Normal air movement Cardiovascular: No edema, Regular rate/rhythm, Normal S1 S2 Capillary refill: <2 Seconds Gastrointestinal: Normal bowel sounds, Non-distended, No tenderness Musculoskeletal: No clubbing, No swelling, No tenderness Integumentary: No rashes, No significant lesion Neurological: Normal speech, Normal tone, Normal affect Lymphatics: No axilla or inguinal lymphadenopathy - Studies Laboratory Data (last 24 hrs) 04/13/23 10:53: PT 10.3, INR 0.94 04/13/23 10:53: WBC 4.80, Hgb 12.5, Hct 39.1, Plt Count 463 H 04/13/23 10:53: Sodium 133 L, Potassium 3.9, BUN 11, Creatinine 0.87, Glucose 90, Magnesium 2.2, Total Bilirubin 0.3, AST 16, ALT 25, Alkaline Phosphatase 161 H Assessment and Plan - Plan --Syncope. Unclear etiology. MRI brain negative for any acute intracranial abnormality. Carotid Doppler indicates Mild atherosclerotic changes noted at the carotid bulbs bilaterally. Less than 50% stenosis of the internal carotid arteries. We will get some orthostatic vital signs. Neurology consulted. Will await further recommendations. --Blurry vision. MRI brain unremarkable for any acute intracranial abnormality. Further management per neurologist. --Anxiety disorder\bipolar disorder\depression. Continue home medications when appropriate.. --History of IBS. Stable. Continue home medication --Hypothyroidism. Continue Synthroid. --GERD. Continue Protonix. --Generalized weakness\difficulty walking. MRI brain unremarkable for any acute finding. Neurology on board. PT eval and treat. We will await further recommendation from neurologist. --Hypertension. Poorly controlled. Continue home medications and hydralazine as needed. --Headache. Continue home medication and Tylenol as needed. --DVT prophylaxis with Lovenox subQ. Discharge Plan: Home Plan to discharge in: 48 Hours - Advance Directives Does patient have a Living Will: No Does patient have a Durable POA for Healthcare: No - Code Status/Comfort Care Code Status Assessed: Yes Physician Review: Patient Assessed, Agree with Above Assessment and Plan Critical Care: No
[2023-04-13] MEDS: ENOXAPARIN 40 MG/0.4 ML SQ SCH (16:00)
[2023-04-13 16:26] LABS: Magnesium 2.4 mg/dL (1.6-2.4); Phosphorus 3.9 mg/dL (2.5-4.9); Thyroid Stimulating Hormone 3.36 uIU/mL (0.358-3.740)
[2023-04-13] MEDS ORDERED: ACETAMINOPHEN 325 MG TABLET ONE (16:28)
[2023-04-13] MEDS ORDERED: ENOXAPARIN 40 MG/0.4 ML SQ ONE (16:29)
--- NOTE | 2023-04-13 17:02 | EKG ---
Test Date: 2023-04-13 Test Time: 10:22:35 Radio Recorder: MB MEASUREMENT RESULTS: Intervals: Rate: 72 NH: 132 QRSD: 90 QT: 420 QTc: 459 [place]: P: -14 NH: 132 QRS: -46 T: 48 INTERPRETIVE STATEMENTS: Normal sinus rhythm Left anterior fascicular block Nonspecific ST abnormality Abnormal ECG Compared to ECG 04/08/2023 22:03:09 Left anterior fascicular block now present ST (T wave) deviation now present Left-axis deviation no longer present Electronically Signed On 04-13-23 17:01:51 CDT by Lee Braga
[2023-04-13 19:35] VITALS: O2SAT 100
[2023-04-13] MEDS: MELATONIN 5 MG TABLET PO PRN (19:59)
[2023-04-13 21:15] LABS: Specific Gravity 1.012 (1.005-1.030); Urine Bacteria None Seen /HPF (<20); Urine Bilirubin NEGATIVE (Negative); Urine Blood Negative (Negative); Urine Clarity Clear (Clear); Urine Color Light-Yellow (Yellow); Urine Glucose NEGATIVE (Negative); Urine Protein NEGATIVE (Negative); Urine RBC <5 /HPF (None Seen); Urine Urobilinogen Normal (Normal)
[2023-04-13] MEDS ORDERED: DIPHENHYDRAMINE 50 MG/ML VIAL IV ONE (23:10)
[2023-04-13] MEDS ORDERED: METOCLOPRAMIDE 10 MG/2mL INJ IV SCH (23:45)
[2023-04-14] MEDS: HYDROCODONE/APAP 5/325 MG TAB PO PRN ×2 (00:48→04:43)
[2023-04-14 01:41] VITALS: BMI 22.8
[2023-04-14 03:27] LABS: Absolute Lymphocytes (CBC) 1.4 K/uL (0.7-4.9); Hematocrit 37.9 % (36.0-45.0); Lymphocytes % 22.3 % (15.3-44.8); MCV 92.2 fL (80-100); MPV 7.1 fL (7.6-11.3); RBC Red Blood Cell Count 4.11 M/uL (3.86-4.86)
[2023-04-14 03:38] LABS: Potassium 3.9 mEq/L (3.5-5.1)
[2023-04-14] MEDS ORDERED: MORPHINE 2 MG/ML SYR IV ONE (07:06)
[2023-04-14] MEDS: ENOXAPARIN 40 MG/0.4 ML SQ SCH (08:58)
[2023-04-14] MEDS: ASPIRIN 81 MG CHEWABLE TABLET PO SCH (08:58)
[2023-04-14] MEDS ORDERED: ONDANSETRON 4 MG/2 ML VIAL IV PRN (10:34)
[2023-04-14] MEDS ORDERED: MECLIZINE HCL 12.5 MG TAB PO PRN (10:34)
[2023-04-14] MEDS ORDERED: TIZANIDINE 4 MG TABLET PO PRN (10:34)
[2023-04-14] MEDS ORDERED: ZIPRASIDONE 20 MG CAP PO ONE (11:00)
[2023-04-14] MEDS: lamoTRIgine 100 MG TAB PO SCH (11:16)
[2023-04-14] MEDS: HYDROCODONE/APAP 10/325 TAB PO PRN ×3 (13:15→21:34)
[2023-04-14] MEDS: LORAZEPAM 0.5 MG TABLET PO PRN ×2 (13:16→22:40)
[2023-04-14] MEDS: VENLAFAXINE HCL XR 75 MG CAP PO SCH (15:07)
[2023-04-14] MEDS ORDERED: ZIPRASIDONE 20 MG CAP PO SCH (21:00)
[2023-04-14] MEDS: MELATONIN 5 MG TABLET PO PRN (21:35)
[2023-04-14] MEDS: PROPRANOLOL HCL 10 MG TAB PO SCH (21:35)
[2023-04-15] MEDS: HYDROCODONE/APAP 10/325 TAB PO PRN (03:39)
[2023-04-15 04:02] LABS: Potassium 3.3 mEq/L (3.5-5.1)
[2023-04-15] MEDS ORDERED: POTASSIUM 25 MEQ EFFERV TAB PO ONE (05:18)
[2023-04-15] MEDS ORDERED: LEVOTHYROXINE SOD 0.05 MG TABLET PO SCH (06:00)
[2023-04-15] MEDS: ASPIRIN 81 MG CHEWABLE TABLET PO SCH (08:59)
[2023-04-15] MEDS: PROPRANOLOL HCL 10 MG TAB PO SCH (08:59)
[2023-04-15] MEDS: VENLAFAXINE HCL XR 75 MG CAP PO SCH (08:59)
[2023-04-15] MEDS: lamoTRIgine 100 MG TAB PO SCH (09:00)
[2023-04-15] MEDS ORDERED: PANTOPRAZOLE 40MG TABLET PO SCH (09:00)
[2023-04-15] MEDS ORDERED: GABAPENTIN 300 MG CAP PO SCH (09:00)
[2023-04-15] MEDS ORDERED: HOME MED 1 EA UNK (Venlafaxine Hcl [Effexor Xr] 150 MG Cap.Er.24h) PO SCH (09:00)
[2023-04-15] MEDS: ENOXAPARIN 40 MG/0.4 ML SQ SCH (09:01)
--- NOTE | 2023-04-15 09:08 | ECHO ---
HEIGHT: 5 ft 2 in WEIGHT: 125 lb 0 oz DATE OF STUDY: 04/14/[address]: Mj Jang MD 2-DIMENSIONAL: YES M.MODE: YES DOPPLER: YES COLOR FLOW: YES TDS: YES PORTABLE: YES DEFINITY: NO BUBBLE STUDY: NO DIAGNOSIS: SYNCOPE CARDIAC HISTORY: CATHERIZATION: SURGERY: PROSTHETIC VALVE: PACEMAKER: MEASUREMENTS (cm) DIASTOLIC (NORMALS) SYSTOLIC (NORMALS) IVSd 1.0 (0.6-1.2) LA Diam 3.6 (1.9-4.0) LVEF 72% LVIDd 3.5 (3.5-5.7) LVIDs 2.1 (2.0-3.5) %FS 40% LVPWd 1.1 (0.6-1.2) Ao Diam 2.8 (2.0-3.7) 2 DIMENSIONAL ASSESSMENT: RIGHT ATRIUM: NORMAL LEFT ATRIUM: NORMAL RIGHT VENTRICLE: NORMAL LEFT VENTRICLE: NORMAL TRICUSPID VALVE: MILD TR MITRAL VALVE: MILD MR PULMONIC VALVE: NORMAL AORTIC VALVE: NORMAL PERICARDIAL EFFUSION: NONE AORTIC ROOT: NORMAL LEFT VENTRICULAR WALL MOTION: NORMAL DOPPLER/COLOR FLOW: SEE BELOW COMMENTS: 1. NORMAL LEFT VENTRICULAR EJECTION FRACTION >60%. 2. NORMAL WALL MOTION. 3. NORMAL DIASTOLIC FUNCTION. 4. MILD MITRAL REGURGITATION. 5. MILD TRICUSPID REGURGITATION. TECHNOLOGIST: Yaya AQUINO
--- NOTE | 2023-04-15 09:37 | P.PN ---
Date of Service: 04/14/23 Subjective Patient behavior is very bizarre. She is staring and not really moving. She appears to be acutely psychotic. Physical Examination -Vitals Reviewed - Physical Exam General: Alert, In no apparent distress, Oriented x3, Cooperative Respiratory: Clear to auscultation bilaterally, Normal air movement Cardiovascular: Regular rate/rhythm, Normal S1 S2 Gastrointestinal: Normal bowel sounds, Non-distended, No tenderness Musculoskeletal: No clubbing, No swelling, No tenderness Neurological: Normal speech, Normal tone, Normal affect Psych: Assessment and Plan - Assessment/Plan -- Acute psychosis; resumes antipsychotic --Syncope. We will get some orthostatic vital signs. Neurology consulted. Will await further recommendations. --Blurry vision. Resolved --Anxiety disorder\bipolar disorder\depression. Continue home medications when appropriate.. --History of IBS. Stable. Continue home medication --Hypothyroidism. Continue Synthroid. --GERD. Continue Protonix. --Generalized weakness\difficulty walking. MRI brain unremarkable for any acute finding. Neurology on board. PT eval and treat. We will await further recommendation from neurologist. --Hypertension. Continue home medications and hydralazine as needed. --Headache. Continue home medication and Tylenol as needed. --DVT prophylaxis with Lovenox subQ. Discharge Plan: Home Plan to discharge in: 48 Hours - Advance Directives Does patient have a Living Will: No Does patient have a Durable POA for Healthcare: No - Code Status/Comfort Care Code Status Assessed: Yes Physician Review: Patient Assessed, Agree with Above Assessment and Plan Critical Care: No
[2023-04-15 11:50] VITALS: BP 94/57; TEMP 97.7
== END 2023-04-15 14:29 | disposition home or self-care (01) ==
LOC: ER 10:06 → ERHOLD 14:58 → 2ND 18:48
PROVIDERS: ADMIT Hospitalist; ATTEND Hospitalist
DX: R55 Syncope and collapse (principal); F23 Brief psychotic disorder; R51.9 Headache, unspecified; H53.8 Other visual disturbances; E03.9 Hypothyroidism, unspecified; K21.9 Gastro-esophageal reflux disease without esophagitis; I10 Essential (primary) hypertension; R53.1 Weakness; F31.9 Bipolar disorder, unspecified; M79.7 Fibromyalgia; F32.A Depression, unspecified; K58.9 Irritable bowel syndrome, unspecified; Z88.8 Allergy status to other drugs, medicaments and biological substances
CPT/HCPCS: 96365; 96361; 93005; 93306; 85025 ×2; 81001; 80048 ×3; 36415 ×2; 83735 ×2; 84100; 85610; 80061; 80076; 84443; 84484; 84439; 83880; 71045; 93880; 70551; 97116; 97161; 97530; 96375; 99285; J0360; J0515; J1200; J1650 ×3; J2270; J2405; J7030

== ENCOUNTER 2023-04-23 17:15 | Inpatient (IN) | payer MEDICARE ==
--- OUTSIDE RECORDS SUMMARY | 2023-04-23 17:30 | XMS REPORT | Continuity of Care Document ---
:1965 Author Organization [facility] t Address [address] [place] [address] [address] [place] [address] Care Team Providers Name Role Phone No, Pcp [facility] Primary Care Physician Unavailable Davin Platt Attending Clinician Unavailable [email or web address] Attending Clinician Unavailable Dana Lunsford Attending Clinician Marla La Attending Clinician Melissa Dunham Attending Clinician Unavailable Abhinav_R Attending Clinician Unavailable SHAN SANTANA Attending Clinician Unavailable Shan Santana MD Attending Clinician Doctor Unassigned, [place] Attending Clinician Unavailable Almita Moore MA Attending Clinician Unavailable SCAR OJEDA Attending Clinician Unavailable NILAY LENNON Attending Clinician Unavailable Nilay Lennon DO Attending Clinician Spike Puri RN Attending Clinician Unavailable JESUS MORA Attending Clinician Unavailable Hill Piña Attending Clinician Pauly Tanner Attending Clinician Wade HART, Adpreethi Attending Clinician Jesus Mora DO Attending Clinician Abdirizak Krueger MD Attending Clinician [phone] ABDIRIZAK KRUEGER Attending Clinician Unavailable CARLTON ECHEVERRIA Attending Clinician Unavailable Carlton Echeverria MD Attending Clinician KENYA CONNOLLY Attending Clinician Unavailable [email or web address]_S Admitting Clinician Unavailable Alex_R Admitting Clinician Unavailable SHAN SANTANA Admitting Clinician Unavailable NILAY LENNON Admitting Clinician Unavailable JESUS MORA Admitting Clinician Unavailable Jesus Mora DO Admitting Clinician CARLTON ECHEVERRIA Admitting Clinician Unavailable Carlton Echeverria MD Admitting Clinician MYLENE BOBBY Admitting Clinician Unavailable Payers Payer Name Policy Type Policy Number Effective Date Expiration Date S julio [facility] 2022 (MEDICARE 00:00:00 REPLACEMENT HMO) Fingo [id number] 2020spring 00:00:00 [employer] [id number] 2018 Common g Medicare 00:00:00 [facility] Replace [facility] Problems Condition Condition Condition Status Onset Resolution Last Treating Co mments Source Name Details Category Date Date Treatment Clinician Date Abdominal Abdominal Disease Active Uni vers pain, pain, 9-14 ity [place]specif[place] Medical abdominal abdominal Bran ch location location Small Small Disease Recurre [facility] bowel bowel nce 06-26 [facility] obstructio obstructio 00:00: Me dical n n 00 Center Pancreatit Pancreatit Disease Active C HI St is is 06-25 [facility] 00:00: Medical 00 Center Perimenopa Post Problem Commo n usal hysterecto Spirit disorder my - CHI menopause [facility] Chronic Stage 3b Problem Common kidney chronic Spirit disease kidney - [facility]I stage 3B disease St (disorder) [facility] Mixed Depression Problem Commo n anxiety with Spirit and anxiety - CHI depressive [facility] Benign Benign Problem Common essential essential Spir it hypertensi hypertensi - CHI on on [facility] Bipolar Bipolar Problem Common disorder disorder Spirit [facility] Solitary Solitary Problem Commo n cyst of cyst of Spirit breast left - CHI breast [facility] [id number] Irritable Problem Comm on bowel Spirit syndrome, - CHI unspecifie [facility] Migraine Migraine Problem Commo n without without Spirit aura, not aura and - CHI refractory without [facility] migrainosu Medica l s, not Center intractabl e [id number] Mixed Problem Common hyperlipid Spirit emia - CHI [facility] [id number] Nausea Problem Common Spirit [facility] [id number] Fibromyalg Problem Co mmon ia Spirit [facility] [id number] Hemorrhoid Problem Com mon s, Spirit unspecifie - CHI d hemorrhoid [facility] Pain in Left wrist Problem Comm on wrist pain [facility] [id number] Back pain Problem Com mon with Spirit left-sided - CHI radiculopa [facility] [id number] History of Problem Co mmon intussusce [facility] ption [facility] [id number] Constipati Problem Com mon on, Spirit unspecifie - CHI d constipati [facility] [id number] GERD Problem Common without Spirit esophagiti - CHI s [facility] [id number] Subclinica Problem Com mon l Spirit hypothyroi - CHI dism [facility] [id number] +5th digit Problem Co mmon eff Spirit 07/03/20*CK - CHI D (chronic kidney [facility] disease) Medical stage 3, Center GFR 30-59 ml/min Right Abdominal Problem Common upper pain, RUQ Spirit quadrant - CHI pain [facility] No known No known Disease Unive rs active active ity of problems problems [facility] Allergies, Adverse Reactions, Alerts Allergy Allergy Status Severity Reaction(s) Onset Inactive Treating Comm ents Source Name Type Date Date Clinician METOCLOP DRUG Active Anxiety 2020-10 Univers RAMIDE INGREDI 10-19 ity of 00:00: [address] ROPINIRO DRUG Active N/V 2020-10 Univers LE INGREDI 10-19 ity of 00:00: [place] 00 Medical Branch Metoclop Propensi Active Anxiety 2020-10 Unive rs ramide ty to -17 ity of adverse 00:00: [place] reaction 00 Medical s Branch Ropiniro Propensi Active Nausea 2020-10 Univer s le ty to and/or 17 ity of adverse Vomiting 00:00: [place] reaction 00 Medical s Branch Metoclop Propensi Active [facility] ramide ty to 9-23 [facility] adverse 00:[facility]: Medical reaction 00 Center s Ropiniro Propensi Active [facility] le ty to 9-23 [facility] adverse 00:00: Medical reaction 00 Center s METOCLOP Allergy Active [facility] RAMIDE 9-23 [facility] 00:00: Medical 00 Center ROPINIRO Allergy Active [facility] LE 9-23 [facility] 00:00: Medical 00 [place] Hydrochl Propensi Active Other - See 2016-10 Weak U nivers orothiaz ty to comments 0-10 ity of noel adverse 00:00: [place] reaction [facility] HYDROCHL DRUG Active High Other-Cmnt 2016-10 Univ ers OROTHIAZ INGREDI 0-10 ity of NOEL 00:00: [place] 00 [facility] metoclop metoclop Active Unknown Commo n ramide ramide [facility] 5921 Drug Active Unknown Common allergy [facility] Social History Social Habit Start Date Stop Date Quantity Comments Source History of Common Spirit - Tobacco Use [facility] History SDOH [facility] Std [facility] Drinks History [facility] Alcohol Binge Medical Bruna ter Exposure to 2022-09-13 2022-09-23 Not sure [facility] SARS-CoV-2 00:00:00 14:14:00 [facility] (event) Branch Education 2022-06-16 2022-06-16 21 University 00:00:00 00:00:00 [facility] Alcohol intake 2022-04-14 2022-04-[address] [facility] St Jg es 00:00:00 00:00:00 non-drinker of Medical Ce nter alcohol (finding) History SDOH 2019-06-25 2019-06-[address] [facility] Alcohol Frequency 00:00:00 00:00:00 [facility] Tobacco use and 2019-06-25 2019-06-25 Smokeless tobacco CH Sharyn Moreland exposure 00:00:00 00:00:00 non-user Medical Center Sex Ass[birth year] At [birth year] ADELAIDE Sandersons 00:00:00 00:00:00 Medical Center Smoking Status Start Date Stop Date Source Never smoked tobacco [facility] Medications Ordered Filled Start Stop Current Ordering [...] dose on Tue07/27/22 at 1200, Routine HYDROcodone 2021-10- No 1{tbl} 1 tablet, Univers -acetaminop 0-24 10-24 Oral, ity of hen (NORCO) 20:45: 19:52 [place]CE[place] 1 [place] 10-325 mg 00 :00 dose, On Medica l tablet 1 Tue Branch tablet 07/26/22 at 1545, Routine methocarbam 2021-10 No 1000mg 1,000 mg, Univers oL 0-24 10-24 Oral, ity of (ROBAXIN) 17:45: 18:58 ONCE, 1 [place] tablet [place] :[place] dose, On Medical 1,000 mg Tue Branch 07/26/22 at 1245, RUBEN naproxen 2021-10 Yes [id number] 550mg Take 1 Univers sodium 550 0-24 [id number] tablet by it y of mg tablet 00:00: [place] 00 the Medical morning Branch and 1 tablet in the evening. Take with meals. methylPREDN 2021-10 Yes [id number] Take by Univers ISolone 4 0-24 [id number] mouth ity of mg tablets 00:00: [place]-INSTRU [place] 00 CTIONS. Medical follow Branch package directions naproxen 2021-10 Yes [id number] 550mg Take 1 Univers sodium 550 0-24 [id number] tablet by it y of mg tablet 00:00: [place] 00 the Medical morning Branch and 1 tablet in the evening. Take with meals. methylPREDN 2021-10 Yes [id number] Take by Univers ISolone 4 0-24 [id number] mouth ity of mg tablets 00:00: [place]-INSTRU [place] 00 CTIONS. Medical follow Branch package directions naproxen 2021-10 Yes [id number] 550mg Take 1 Univers sodium 550 0-24 [id number] tablet by it y of mg tablet 00:00: [place] 00 the Medical morning Branch and 1 tablet in the evening. Take with meals. methylPREDN 2021-10 Yes [id number] Take by Univers ISolone 4 0-24 [id number] mouth ity of mg tablets 00:00: SEE-INSTRU [place] 00 CTIONS. Medical follow Branch package directions methocarbam 2021-10- No [id number] 500mg Take 1 Univers oL 500 mg 0-24 08-01 [id number] tablet by it y of tablet 00:00: 04:59 mouth in [place] 00 :00 the Medical morning Branch and 1 tablet at noon and 1 tablet in the evening. Do all this for 5 days. lidocaine 5 2021-10- No [id number] 1{patch Apply 1 Univers % (700 0-24 [id number] } Patch to ity of mg/patch) 00:00: 04:59 area(s) [place] patch 00 :00 once now Medical for 1 Branch dose. Zofran 4 MG Zofran 4 MG No BID Zofran 4 9-28 MG 00:00: [...] by ity of capsule 12:24: mouth 3 [place] 20 (three) Medical times Branch daily. Indication s: 1 in the Am and 4 at bed time ziprasidone 2021-0 Yes 60mg Take 60 mg Univers 60 mg 9-19 by mouth ity of capsule 12:24: daily. [place] [address] Medical Branch PANTOPRAZOL 0 Yes 40mg Take [...] by mouth ity of tablet 12:24: daily. [place] [address] Medical Branch levothyroxi 0 Yes 50ug Take 50 Uni vers ne 50 mcg 9-19 mcg by ity of tablet 12:24: mouth [place] [address] every Medical morning. Branch hydrOXYzine 2022-0 Yes 50mg Take 50 mg Univers 50 mg 9-19 by mouth ity of tablet 12:24: in the [place] [address] morning Medical and 50 mg Branch in the evening. zolpidem 2021-0 Yes 12.5mg Take 12.5 Un henry 12.5 mg CR 9-19 mg by ity of tablet 12:24: mouth at [place] [address] bedtime as Medical needed for Branch Sleep. buspirone 2021-0 Yes 5mg Take 5 mg Uni vers HCl 9-19 by mouth ity of (BUSPIRONE 12:24: as needed. [place] ORAL) 20 Medical Branch LORazepam 2021-0 Yes .5mg Take 0.5 Univ ers 0.5 mg 9-19 mg by ity of tablet 12:24: mouth as [place] [address] needed. Medical Branch venlafaxine 0 Yes 75mg Take 75 mg Univers XR 75 mg 24 06-21 by mouth ity of hr capsule 12:24: daily with [place] 20 breakfast. Medical Branch lamoTRIgine 2021-0 Yes 200mg Take 200 U nivers 200 mg 9-19 mg by ity of tablet 12:24: mouth in [place] [address] the Medical morning. Branch gabapentin 0 Yes 300mg Take 300 Un henry 300 mg 9-19 mg by ity of capsule 12:24: mouth 3 [place] [address] (three) Medical times Branch daily. Indication s: 1 in the Am and 4 at bed time ziprasidone 2021-0 Yes 60mg Take 60 mg Univers 60 mg 9-19 by mouth ity of capsule 12:24: daily. [place] [address] Medical Branch PANTOPRAZOL 2021-0 Yes 40mg Take 40 mg Univers E SODIUM 9-19 by mouth. ity of (PROTONIX 12:24: [place] ORAL) 20 Medical Branch tiZANidine 0 Yes 4mg Take 4 mg Un henry 4 mg 9-19 by mouth 2 ity of capsule 12:24: (two) [place] [address] times Medical daily. Branch IRON &IRON 0 Yes Take by Univ ers ASP 9-19 mouth. ity of GLY-FA-MV,M 12:24: Indication [place] IN38 ORAL 20 s: iron Medical injectio Branch once a month propranolol 2021-0 Yes 20mg Take 20 mg Univers 20 mg 9-19 by mouth ity of tablet 12:24: daily. [place] [address] Medical Branch levothyroxi 0 Yes 50ug Take 50 Uni vers ne 50 mcg 9-19 mcg by ity of tablet 12:24: mouth [place] [address] every Medical morning. Branch hydrOXYzine 0 Yes 50mg Take 50 mg Univers 50 mg 9-19 by mouth ity of tablet 12:24: in the [place] [address] morning Medical and 50 mg Branch in the evening. zolpidem 2021-0 Yes 12.5mg Take 12.5 Un henry 12.5 mg CR 9-19 mg by ity of tablet 12:24: mouth at [place] [address] bedtime as Medical needed for Branch Sleep. buspirone 0 Yes 5mg Take 5 mg Uni vers HCl 9-19 by mouth ity of (BUSPIRONE 12:24: as needed. [place] ORAL) 20 Medical Branch LORazepam 0 Yes .5mg Take 0.5 Univ ers 0.5 mg 9-19 mg by ity of tablet 12:24: mouth as [place] [address] needed. Medical Branch venlafaxine 0 Yes 75mg Take 75 mg Univers XR 75 mg 24 9-19 by mouth ity of hr capsule 12:24: daily with [place] 20 breakfast. Medical Branch lamoTRIgine 0 Yes 200mg Take 200 U nivers 200 mg 9-19 mg by ity of tablet 12:24: mouth in [place] [address] the Medical morning. Branch gabapentin 0 Yes 300mg Take 300 Un henry 300 mg 9-19 mg by ity of capsule 12:24: mouth 3 [place] [address] (three) Medical times Branch daily. Indication s: 1 in the Am and 4 at bed time ziprasidone 2021-0 Yes 60mg Take 60 mg Univers 60 mg 9-19 by mouth ity of capsule 12:24: daily. [place] [address] Medical Branch PANTOPRAZOL 2021-0 Yes 40mg Take 40 mg Univers E SODIUM 9-19 by mouth. ity of (PROTONIX 12:24: [place] ORAL) 20 Medical Branch tiZANidine 2021-0 Yes 4mg Take 4 mg Un henry 4 mg 9-19 by mouth 2 ity of capsule 12:24: (two) [place] 20 times Medical daily. Branch IRON &IRON 2021-0 Yes Take by Univ ers ASP 9-19 mouth. ity of GLY-FA-MV,M 12:24: Indication [place] IN ORAL 20 s: iron Medical injectio Branch once a month propranolol 2021-0 Yes 20mg Take 20 mg Univers 20 mg 9-19 by mouth ity of tablet 12:24: daily. [place] [address] Medical Branch levothyroxi 2021-0 Yes 50ug Take 50 Uni vers ne 50 mcg 9-19 mcg by ity of tablet 12:24: mouth [place] 20 every Medical morning. Branch hydrOXYzine 2021-0 Yes 50mg Take 50 mg Univers 50 mg 9-19 by mouth ity of tablet 12:24: in the [place] 20 morning Medical and 50 mg Branch in the evening. zolpidem 2021-0 Yes 12.5mg Take 12.5 Un henry 12.5 mg CR 9-19 mg by ity of tablet 12:24: mouth at [place] [address] bedtime as Medical needed for Branch Sleep. buspirone 2021-0 Yes 5mg Take 5 mg Uni vers HCl 9-19 by mouth ity of (BUSPIRONE 12:24: as needed. [place] ORAL) 20 Medical Branch LORazepam 2021-0 Yes .5mg Take 0.5 Univ ers 0.5 mg 9-19 mg by ity of tablet 12:24: mouth as [place] [address] needed. Medical Branch venlafaxine 2021-0 Yes 75mg Take 75 mg Univers XR 75 mg 24 9-19 by mouth ity of hr capsule 12:24: daily with [place] 20 breakfast. Medical Branch lamoTRIgine 2021-0 Yes 200mg Take 200 U nivers 200 mg 9-19 mg by ity of tablet 12:24: mouth in [place] 20 the Medical morning. Branch gabapentin 2021-0 Yes 300mg Take 300 Un henry 300 mg 9-19 mg by ity of capsule 12:24: mouth 3 [place] 20 (three) Medical times Branch daily. Indication s: 1 in the Am and 4 at bed time ziprasidone 2021-0 Yes 60mg Take 60 mg Univers 60 mg 9-19 by mouth ity of capsule 12:24: daily. [place] [address] Medical Branch PANTOPRAZOL 2021-0 Yes 40mg Take [...] by mouth ity of tablet 12:24: daily. [place] 20 Medical Branch levothyroxi 2021-0 Yes 50ug Take [...] by ity of tablet 12:24: mouth at [place] 20 bedtime as Medical needed for Branch Sleep. buspirone 2021-0 Yes 5mg Take 5 mg Uni vers HCl 9-19 by mouth ity of (BUSPIRONE 12:24: as needed. [place] ORAL) 20 Medical Branch LORazepam 0 Yes .5mg Take 0.5 Univ ers 0.5 mg 9-19 mg by ity of tablet 12:24: mouth as [place] 20 needed. Medical Branch venlafaxine 2021-0 Yes 75mg [...] by mouth ity of capsule 12:24: daily. [place] 20 Medical Branch PANTOPRAZOL 2022-0 Yes 40mg Take 40 mg Univers E SODIUM 9-19 by mouth. ity of (PROTONIX 12:24: [place] ORAL) 20 Medical Branch tiZANidine 0 Yes 4mg Take 4 mg Un henry 4 mg 9-19 by mouth 2 ity of capsule 12:24: (two) [place] 20 times Medical daily. Branch IRON &IRON 0 Yes Take by Univ ers ASP 9-19 mouth. ity of GLY-HAROON-JAZMYN,M 12:24: Indication [place] IN38 ORAL 20 s: iron Medical injectio Branch once a month propranolol 0 Yes 20mg Take 20 mg Univers 20 mg 9-19 by mouth ity of tablet 12:24: daily. [place] 20 Medical Branch levothyroxi 0 Yes 50ug [...] by ity of tablet 12:24: mouth as [place] 20 needed. Medical Branch venlafaxine 0 Yes 75mg [...] 40mg Take 40 mg Univers 40 mg 9-19 -19 by mouth ity of capsule 11:03: 00:00 daily. [place] 56 :00 Medical Branch DICLOFENAC 2021- No Take 50 mg Univers POTASSIUM [...] days. Indication s: acute pain traMADoL 50 0 2021- No 4647 50mg Take 1 Uni [...] Medical RTU 10 mEq First dose Bra nc on 06/20/22 at 0800, Last dose on [...] carlos 1:1:1 [place] (FIRST-MOUT 06/17/[address] [facility]) 2100, oral Routine suspension 15 mL HYDROcodone 2021-0 Yes 1{tbl} 1 tablet, Univers -acetaminop 16 Oral, ity of hen (NORCO 01:00: Q6HPRN, [place] 5) 5-325 mg 34 Starting Medi car[place] tablet 1 on [place] Branch tablet 06/17/22 at 2000, Until Discontinu ed, Routine, Pain (scale 4-6) morpHINE (2 0 Yes 2mg 2 mg, Slow Univers mg/mL) 15 IV Push, ity of injection 2 20:14: Q6HPRN, [place] as mg 54 Starting Medical on [place] Branch 06/17/22 at 1514, Until Discontinu ed, Routine, Pain (scale 7-10) maalox:diph 2021-0 202- No 15mL 15 mL, Uni vers enhydrAMINE 06-17-15 Oral, ity of :lidocaine 15:45: 15:51 ONCE, 1 [place] as 2 % viscous 00 :00 dose, On Medi carlos 1:1:1 [place] (FIRST-MOUT 06/17/[address] [facility]) 1045, oral Routine suspension 15 mL pantoprazol 0 Yes 40mg 40 mg, Univ ers e 06-17 Oral, ity of (PROTONIX) 14:00: DAILY, [place] EC tablet 00 First dose Medi carlos 40 mg on [place] Branch 06/17/22 at 0900, Until Discontinu ed lamoTRIgine 0 Yes 200mg 200 mg, Un henry (LAMICTAL) 15 Oral, ity of tablet 200 14:00: DAILY, [place] mg 00 First dose Medical on [facility] Branch 06/17/22 at 0900, Until Discontinu ed, Routine venlafaxine 0 Yes 75mg 75 mg, Univ ers XR (EFFEXOR 06-17 Oral, QAM ity of XR) 24 hr 13:00: WITH [place] capsule 75 00 BREAKFAST, Med ical mg First dose Branch on [place] 06/17/22 at 0800, Until Discontinu ed, Routine tiZANidine 0 Yes 4mg 4 mg, Univer s (ZANAFLEX) 9-15 Oral, BID, ity of tablet 4 mg 13:00: First dose [place] 00 on [facility] 06/17/22 at Branch 0800, Until Discontinu ed propranoloL 0 Yes 20mg 20 mg, Univ ers (INDERAL) 15 Oral, BID, ity of tablet 20 13:00: First dose [place] mg 00 on [facility] 06/17/22 at Branch 0800, Until Discontinu ed, Routine heparin 0 Yes 5000U 5,000 Univers (porcine) 15 Units, ity of injection 13:00: Subcutaneo [place] 5,000 Units 00 us, Q12H, Med ical First dose Branch on [facility] 06/17/22 at 0800, Until Discontinu ed, Routine levothyroxi Yes 50ug 50 mcg, Uni vers ne 06-17 Oral, ity of (SYNTHROID) 11:00: QAM-0600, [place] tablet 50 00 First dose Medi carlos mcg on [facility] 06/17/22 at 0600, Until Discontinu ed, Routine ziprasidone Yes 120mg 120 mg, Un henry (GEODON) 15 Oral, QHS, ity o f capsule 120 08:30: First dose [place] mg 00 on [facility] 06/17/22 at Branch 0330, Until Discontinu ed, Routine NaCl 0.9% 2021- No 1000mL at 100 Uni vers (NS) IV 06-17 09-17 mL/hr, IV ity of infusion 07:15: 22:39 Infusion, [place] as 1,000 mL 00 :15 CONTINUOUS Medic al , Starting Branch on [facility] 06/17/22 at 0215, Until 06/19/22 at 1739, Routine NaCl 0.9% 0 2021- No 1000mL at 999 Uni vers (NS) bolus 06-17 09-15 mL/hr, ity of infusion 07:15: 07:48 1,000 mL, [place] as 1,000 mL 00 :04 IV Medical Piggyback, Branch ONCE, 1 dose, On [facility] 06/17/22 at 0215, RUBEN gabapentin 0 Yes 300mg 300 mg, Uni vers (NEURONTIN) 15 Oral, TID, it y of capsule 300 06:30: First dose [place] mg 00 on [facility] Medical 06/17/22 at Branch 0130, Until Discontinu ed, Routine hydrOXYzine 2021-0 Yes 25mg 25 mg, Univ ers (ATARAX) 915 Oral, ity of tablet 25 06:19: Q6HPRN, [place] mg 36 Starting Medical on [facility] Branch 06/17/22 at 0119, Until Discontinu ed, Routine, Anxiety zolpidem 2021-0 Yes 10mg 10 mg, Univers (AMBIEN) 15 Oral, ity of tablet 10 06:18: QHSPRN, [place] mg 39 Starting Medical on [facility] Branch 06/17/22 at 0118, Until Discontinu ed, Insomnia LORazepam 2021-0 Yes .5mg 0.5 mg, Unive rs (ATIVAN) 06-17 Oral, ity of tablet 0.5 06:16: BIDPRN, [place] mg 51 Starting Medical on [facility] Branch 06/17/22 at 0116, Until Discontinu ed, Routine, Agitation sennosides 0 Yes 8.6mg 8.6 mg, Uni vers (SENOKOT) 15 Oral, BID, ity of tablet 8.6 06:15: First dose [place] mg 00 on [facility] Medical 06/17/22 at Branch 0115, Until Discontinu ed, Routine docusate 0 Yes 100mg 100 mg, Unive rs (COLACE) 15 Oral, BID, ity o f capsule 100 06:15: First dose [place] mg 00 on [facility] 06/17/22 at Branch 0115, Until Discontinu ed, Routine pantoprazol 2021-0 2021- No 40mg 40 mg, Uni vers e 06-1718 Slow IV ity of (PROTONIX) 06:15: 15:58 Push, [place] injection 00 :22 Q12H, Medical 40 mg First dose Branch on [facility] 06/17/22 at 0115, Until Discontinu ed ondansetron 0 Yes 4mg 4 mg, Slow Univers (ZOFRAN 06-17 IV Push, ity of (PF)) 06:06: Q6HPRN, [place] injection 4 09 Starting Medi carlos mg on [facility] Branch 06/17/22 at 0106, Until Discontinu ed, Routine, Nausea and Vomiting (N/V) morpHINE (4 No 4mg 4 mg, Slow Univers mg/mL) [...] 06/16/22 at 2115, STAT iopamidol 2021- No [id number] 70mL 70 mL, U nivers (ISOVUE 06-17 [...] Medical Infusion, Branch ONCE, 1 dose, On Tue06/16/22 at 1900, STAT ibuprofen 2021-0 2021- No 600mg 600 mg, Uni vers (IBU) 06-16 0915 Oral, ity of tablet 600 23:00: 00:11 ONCE, 1 [place] as mg 00 :00 dose, On Medical Wed Branch 06/16/22 at 1800, RUBEN clonazePAM Yes .5mg Take 0.[address] (KLONOPIN) 7-13 mg by [facility] 0.5 MG 13:36: mouth 2 Medical tablet 47 (two) Center times daily as needed for Anxiety. gabapentin Yes 600mg Q.[id number] Take [address] (NEURONTIN) 7-13 [id number] mg by L ukes 600 MG 13:36: 3D mouth 3 Medical tablet 47 (three) Center times daily. ziprasidone Yes 120mg QD Take 120 C HI [...] 13:36: daily. Medic al 47 Center tiZANidine Yes 4mg QD Take [address] (ZANAFLEX) 7-13 by mouth [facility]ukes 4 MG tablet 13:36: nightly. Me dical 47 Center buPROPion 0 Yes 150mg QD Take [address] (WELLBUTRIN 7-13 mg by [facility]ukes XL) 150 MG 13:36: mouth Medica l 24 hr 47 daily. Center tablet levothyroxi Yes 50ug Take [address] ne [...] needed for Anxiety. gabapentin 0 Yes 600mg Q.[id number] Take [address] (NEURONTIN) 7-13 [id number] mg by L ukes 600 MG 13:36: 3D mouth 3 Medical tablet 47 (three) Center times daily. ziprasidone 0 Yes 120mg QD Take [address] (GEODON) 60 7-13 mg by Lukes MG capsule 13:36: mouth Medica l 47 nightly . [place] propranolol 0 Yes 10mg Q.5D Take 10 [...] needed for Anxiety. gabapentin 0 Yes 600mg Q.[id number] Take [address] (NEURONTIN) 7-13 [id number] mg by L ukes 600 MG 13:36: [...] needed for Anxiety. gabapentin 2021-0 Yes 600mg Q.[id number] Take [address] (NEURONTIN) 7-13 [id number] mg by L ukes 600 MG 13:36: [...] Medical tablet 47 times Center daily. pantoprazol 2021-0 Yes 40mg QD Take [address] e 7-13 by mouth Lukes (PROTONIX) 13:36: daily. Medic al 40 MG 47 Center tablet FLUoxetine 2021-0 Yes 40mg QD Take [address] (PROZAC) 40 7-13 by mouth Luke s MG capsule 13:36: daily. Medic al 47 Center tiZANidine 2021-0 Yes 4mg QD Take 4 mg CH [...] (two) Center times daily as needed. LORazepam 2-0 Yes .5mg Take 0.[address] (ATIVAN) 6-16 mg by Lukes 0.5 MG 00:00: mouth 2 Medical tablet 00 (two) Center times daily as needed. LORazepam 0 Yes .5mg Take 0.[address] (ATIVAN) 6-16 mg by Lukes 0.5 MG 00:00: mouth 2 Medical tablet 00 (two) Center times daily as needed. LORazepam 0 Yes .5mg Take 0.[address] (ATIVAN) 6-16 mg by [facility]ukes 0.5 MG 00:00: mouth 2 Medical tablet 00 (two) Center times daily as needed. zolpidem Yes [facility] (AMBIEN) 10 3-23 Lukes mg tablet 00:00: Medical 00 [place] zolpidem [address] (AMBIEN) 10 3-23 [facility] mg tablet 00:00: Medical 00 [place] zolpidem [address] (AMBIEN) 10 3-23 [facility] mg tablet 00:00: Medical 00 [place] zolpidem [address] (AMBIEN) 10 3-23 [facility] mg tablet 00:00: Medical 00 [place] [place] lamoTRIgine [address] [facility] (La[facility]tal[facility] 3-15 [facility] 200 MG 00:00: Medical tablet 00 [place] lamoTRIgine [address] [facility] ([facility] 3-15 [facility] 200 MG 00:00: Medical tablet 00 [place] lamoTRIgine [address] [facility] (La[facility]tal) 3-15 [facility] 200 MG 00:00: Medical tablet 00 [place] lamoTRIgine [address] [facility] ([facility]tal) 3-15 [facility] 200 MG 00:00: Medical tablet 00 [place] venlafaxine [address] [facility] (EFFEXOR) 3-04 [facility] 75 MG 00:00: Medical tablet 00 [place] venlafaxine [address] [facility] (EFFEXOR) 3-04 [facility] 75 MG 00:00: Medical tablet 00 [place] venlafaxine [address] [facility] (EFFEXOR) 3-04 [facility] 75 MG 00:00: Medical tablet 00 [place] venlafaxine [address] [facility] (EFFEXOR) 3-04 [facility] 75 MG 00:00: Medical tablet 00 [place] iopamidol 2021- No [id number] 100mL 100 mL, Univers (ISOVUE -14 10-16 Intravenou ity o f 370-500 mL) 21:47: 21:46 s, ONCE, 1 [place] injection 00 :00 dose, On Medica l 100 mL Fri Branch 10/16/21 at 1600, Routine water for 2020-10 Yes PRN, Univers irrigation 11-23 Starting ity o f irrigation 17:03: on Tue [place] solution 00 09/22/21 Medical at 1103, Branch Until Discontinu ed, Routine, Intra-op simethicone 2020-10 Yes PRN, Univer s (GAS RELIEF 11-23 Starting ity of (SIMETHICON 17:03: [place] E)) 40 00 09/22/21 Medical mg/0.6 mL at 1103, Branch drops Until Discontinu ed, Routine, Intra-op water for 2020-10- No PRN, Univers irrigation 11-23 Starting ity of irrigation 17:03: 20:23 [place] solution 00 :39 09/22/21 Medical at 1103, Branch Until Tue09/22/21 at 1423, Routine, Intra-op simethicone 2020-10- No PRN, Unive rs (GAS RELIEF 11-23 Starting ity of (SIMETHICON 17:03: 20:23 on Tue [place] as E)) 40 00 :39 09/22/21 Medical mg/0.6 mL at 1103, Branch drops Until Tue09/22/21 at 1423, Routine, Intra-op lactated 2020-10- No 1000mL at 42 Unive rs ringers IV - 12-21 mL/hr, ity of infusion 16:45: 16:47 1,000 mL, [place] as 1,000 mL 00 :00 IV Medical Infusion, Branch ONCE, 1 dose, On Tue09/22/21 at 1045, Routine, DSU Pre-op lactated 2020-10- No 1000mL at 42 Unive rs ringers IV - 12-21 mL/hr, ity of infusion 16:45: 16:47 1,000 mL, [place] 1,000 mL 00 :00 IV Medical Infusion, Branch ONCE, 1 dose, On Tue09/22/21 at 1045, Routine, DSU Pre-op FLUoxetine 2020-10 Yes 40mg Take 40 mg U nivers (PROZAC) 40 2-21 by mouth ity of mg capsule 12:23: daily. [address] gabapentin 2020-10 Yes 300mg Take 300 Un henry 300 mg 2-21 mg by ity of capsule 12:23: mouth 3 [place] 30 (three) Medical times [place] daily. Indication s: 1 in the Am and 4 at bed time ziprasidone 2020-10 Yes 60mg Take 60 mg Univers (GEODON) 60 2-21 by mouth ity of mg capsule 12:23: daily. [address] PANTOPRAZOL 2020-10 Yes 40mg Take 40 mg Univers E SODIUM 2-21 by mouth. ity of (PROTONIX 12:23: [place] ORAL) [address] [place] [address] Branch tiZANidine 2020-10 Yes 4mg Take 4 mg Un henry (ZANAFLEX) 2-21 by mouth 2 ity of 4 mg 12:23: (two) [place] capsule 30 times Medical daily. Branch IRON &IRON 2020-10 Yes Take by Univ ers ASP 2-21 mouth. ity of GLY-FA-MV,M 12:23: Indication [place] IN ORAL 30 s: iron Medical injectio Branch once a month DICLOFENAC 2020-10 Yes Take 50 mg U nivers POTASSIUM 2-21 base by ity of (CAMBIA 12:23: mouth. [facility]) [address] [place] [address] Branch propranolol 2020-10 Yes 20mg Take 20 mg Univers 20 mg 2-21 by mouth ity of tablet 12:23: daily. [address] FLUoxetine 2020-10 Yes 40mg Take 40 mg U nivers (PROZAC) 40 2-21 by mouth ity of mg capsule 12:23: daily. [address] gabapentin 2020-10 Yes 300mg Take 300 Un henry 300 mg 2-21 mg by ity of capsule 12:23: mouth 3 [place] 30 (three) Medical times [place] daily. Indication s: 1 in the Am and 4 at bed time ziprasidone 2020-10 Yes 60mg Take 60 mg Univers (GEODON) 60 2-21 by mouth ity of mg capsule 12:23: daily. [address] PANTOPRAZOL 2021-1 Yes 40mg Take 40 mg Univers E SODIUM 2-21 by mouth. ity of (PROTONIX 12:23: [place] ORAL) 30 Medical Branch tiZANidine 2020-10 Yes 4mg Take 4 mg Un henry (ZANAFLEX) 2-21 by mouth 2 ity of 4 mg 12:23: (two) [place] capsule 30 times Medical daily. Branch IRON &IRON 2020-10 Yes Take by [facility] ers ASP 2-21 mouth. ity of CONSTANTINO,M 12:23: Indication [place] IN38 ORAL 30 s: iron Medical injectio Branch once a month DICLOFENAC 2020-10 Yes Take 50 mg U nivers POTASSIUM 2-21 base by ity of (CAMBIA 12:23: mouth. [place] ORAL) 30 Medical Branch propranolol 2020-10 Yes 20mg Take 20 mg Univers 20 mg 2-21 by mouth ity of tablet 12:23: daily. [address] FLUoxetine 2020-10 Yes 40mg Take 40 mg U nivers (PROZAC) 40 2-21 by mouth ity of mg capsule 12:23: daily. [address] gabapentin 2020-10 Yes 300mg Take 300 Un henry 300 mg 2-21 mg by ity of capsule 12:23: mouth 3 [place] 30 (three) Medical times Branch daily. Indication s: 1 in the Am and 4 at bed time ziprasidone 2020-10 Yes 60mg Take 60 mg Univers (GEODON) 60 2-21 by mouth ity of mg capsule 12:23: daily. [address] PANTOPRAZOL 2020-10 Yes 40mg Take 40 mg Univers E SODIUM 2-21 by mouth. ity of (PROTONIX 12:23: [place] ORAL) 30 Medical Branch tiZANidine 2020-10 Yes 4mg Take 4 mg Un henry (ZANAFLEX) 2-21 by mouth 2 ity of 4 mg 12:23: (two) [place] capsule 30 times Medical daily. Branch IRON &IRON 2020-10 Yes Take by [facility] ers ASP 2-21 mouth. ity of CONSTANTINO,M 12:23: Indication [place] IN38 ORAL 30 s: iron Medical injectio Branch once a month DICLOFENAC 2020-10 Yes Take 50 mg U nivers POTASSIUM 2-21 base by ity of (CAMBIA 12:23: mouth. [place] ORAL) Medical Branch propranolol 2020-10 Yes 20mg Take 20 mg Univers 20 mg 2-21 by mouth ity of tablet 12:23: daily. [address] FLUoxetine 2020-10 Yes 40mg Take 40 mg U nivers (PROZAC) 40 2-21 by mouth ity of mg capsule 12:23: daily. [address] gabapentin 2020-10 Yes 300mg Take 300 Un henry 300 mg 2-21 mg by ity of capsule 12:23: mouth 3 [place] 30 (three) Medical times [place] daily. Indication s: 1 in the Am and 4 at bed time ziprasidone 2020-10 Yes 60mg Take 60 mg Univers (GEODON) 60 2-21 by mouth ity of mg capsule 12:23: daily. [address] PANTOPRAZOL 2020-10 Yes 40mg Take 40 mg Univers E SODIUM 2-21 by mouth. ity of (PROTONIX 12:23: [place] ORAL) [address] [place] [address] Branch tiZANidine 2020-10 Yes 4mg Take 4 mg Un henry (ZANAFLEX) 2-21 by mouth 2 ity of 4 mg 12:23: (two) [place] capsule 30 times Medical daily. Branch IRON &IRON 2020-10 Yes Take by Univ ers ASP 2-21 mouth. ity of GLY-FA-MV,M 12:23: Indication [place] IN38 ORAL 30 s: iron Medical injectio Branch once a month DICLOFENAC 2020-10 Yes Take 50 mg U nivers POTASSIUM 2-21 base by ity of (CAMBIA 12:23: mouth. [facility]) [address] [place] [address] Branch propranolol 2020-10 Yes 20mg Take 20 mg Univers 20 mg 2-21 by mouth ity of tablet 12:23: daily. [address] FLUoxetine 2020-10 Yes 40mg Take 40 mg U nivers (PROZAC) 40 2-21 by mouth ity of mg capsule 12:23: daily. [address] gabapentin 2020-10 Yes 300mg Take 300 Un henry 300 mg 2-21 mg by ity of capsule 12:23: mouth 3 [place] [address] (three) Medical times [place] daily. Indication s: 1 in the Am and 4 at bed time ziprasidone 2020-10 Yes 60mg Take 60 mg Univers (GEODON) 60 2-21 by mouth ity of mg capsule 12:23: daily. [address] PANTOPRAZOL 2020-10 Yes 40mg Take 40 [...] by mouth ity of tablet 12:23: daily. [address] water for 2020-10- No PRN, Univers [...] Intra-op lactated 2020-10- No 1000mL at 42 Unive rs ringers IV -18 11-18 mL/hr, ity of infusion 18:00: 17:59 1,000 mL, [place] as 1,000 mL 00 :00 IV Medical Infusion, Branch ONCE, 1 dose, On [place] 08/20/21 at 1200, Routine, DSU Pre-op lactated 2020-10- No 1000mL at 42 Unive rs ringers IV -18 11-18 mL/hr, ity of infusion 18:00: 17:59 1,000 mL, [place] as 1,000 mL 00 :00 IV Medical Infusion, Branch ONCE, 1 dose, On [place] 08/20/21 at 1200, Routine, DSU Pre-op FLUoxetine 2020-10 Yes 40mg Take 40 mg U nivers (PROZAC) 40 1-18 by mouth ity of mg capsule 13:01: daily. [address] gabapentin 2020-10 Yes 300mg Take 300 Un henry 300 mg 1-18 mg by ity of capsule 13:01: mouth 3 [place] [address] (three) Medical times [place] daily. Indication s: 1 in the Am and 4 at bed time ziprasidone 2020-10 Yes 60mg Take 60 mg Univers (GEODON) 60 1-18 by mouth ity of mg capsule 13:01: daily. [address] PANTOPRAZOL 2020-10 Yes 40mg Take 40 mg Univers E SODIUM 1-18 by mouth. ity of (PROTONIX 13:01: [place] ORAL) Medical Branch tiZANidine 2020-10 Yes 4mg Take 4 mg Un henry (ZANAFLEX) 1-18 by mouth 2 ity of 4 mg 13:01: (two) [place] capsule [address] [place] [address] daily. Branch IRON &IRON 2020-10 Yes Take by Univ ers ASP 1-18 mouth. ity of GLY-FA-MV,M 13:01: Indication [place] IN ORAL 23 s: iron Medical injectio Branch once a month DICLOFENAC 2020-10 Yes Take 50 mg U nivers POTASSIUM 1-18 base by ity of (CAMBIA 13:01: mouth. [facility]) Medical Branch propranolol 2020-10 Yes 20mg Take 20 mg Univers 20 mg 1-18 by mouth ity of tablet 13:01: daily. [address] FLUoxetine 2020-10 Yes 40mg Take 40 mg U nivers (PROZAC) 40 1-18 by mouth ity of mg capsule 13:01: daily. [address] gabapentin 2020-10 Yes 300mg Take 300 Un henry 300 mg 1-18 mg by ity of capsule 13:01: mouth 3 [place] [address] (three) Medical times [place] daily. Indication s: 1 in the Am and 4 at bed time ziprasidone 2020-10 Yes 60mg Take 60 mg Univers (GEODON) 60 1-18 by mouth ity of mg capsule 13:01: daily. [address] PANTOPRAZOL 2020-10 Yes 40mg Take 40 mg Univers E SODIUM 1-18 by mouth. ity of (PROTONIX 13:01: [place] ORAL) Medical Branch tiZANidine 2020-10 Yes 4mg Take 4 mg Un henry (ZANAFLEX) 1-18 by mouth 2 ity of 4 mg 13:01: (two) [place] capsule 23 times Medical daily. Branch IRON &IRON 2020-10 Yes Take by [facility] ers ASP 1-18 mouth. ity of Cristofer MEEKS 13:01: Indication [place] IN38 ORAL 23 s: iron Medical injectio Branch once a month DICLOFENAC 2020-10 Yes Take 50 mg U nivers POTASSIUM 1-18 base by ity of (CAMBIA 13:01: mouth. [place] ORAL) Medical Branch propranolol 2020-10 Yes 20mg Take 20 mg Univers 20 mg 1-18 by mouth ity of tablet 13:01: daily. [address] Branch FLUoxetine 2020-10 Yes 40mg Take 40 mg U nivers (PROZAC) 40 1-18 by mouth ity of mg capsule 13:01: daily. [address] gabapentin 2020-10 Yes 300mg Take 300 Un henry 300 mg 1-18 mg by ity of capsule 13:01: mouth 3 [place] [address] (three) Medical times Branch daily. Indication s: 1 in the Am and 4 at bed time ziprasidone 2020-10 Yes 60mg Take 60 mg Univers (GEODON) 60 1-18 by mouth ity of mg capsule 13:01: daily. [address] PANTOPRAZOL 2020-10 Yes 40mg Take 40 mg Univers E SODIUM 1-18 by mouth. ity of (PROTONIX 13:01: [place] ORAL) Medical Branch tiZANidine 2020-10 Yes 4mg Take 4 mg Un henry (ZANAFLEX) 1-18 by mouth 2 ity of 4 mg 13:01: (two) [place] capsule 23 times Medical daily. Branch IRON &IRON 2020-10 Yes Take by [facility] ers ASP 1-18 mouth. ity of Cristofer MEEKS 13:01: Indication [place] IN38 ORAL 23 s: iron Medical injectio Branch once a month DICLOFENAC 2020-10 Yes Take 50 mg U nivers POTASSIUM 1-18 base by ity of (CAMBIA 13:01: mouth. [place] ORAL) Medical Branch propranolol 2020-10 Yes 20mg Take 20 mg Univers 20 mg 1-18 by mouth ity of tablet 13:01: daily. [address] Sulfamethox Sulfamethox 2020- No 1{table BID Sulfametho [...] HCl 50 MG 00:00: eded} traMADol traMADol 2019-1 No 1{table traMADol HCl 50 MG HCl 50 MG 0-16 t_as_ne HCl 50 MG 00:00: eded} 00 traMADol traMADol 2019-1 No 1{table traMADol HCl 50 MG HCl [...] 50 MG 00:00: eded} 00 traMADol traMADol 2019-1 No 1{table traMADol HCl 50 MG HCl [...] Take 1 Unive rs 5 mg tablet 06-10 tablet by ity of 00:00: mouth [place] 00 daily. Medical Branch amLODIPine 2017-0 Yes 5mg Take 1 Unive rs 5 mg tablet 06-10 tablet by ity of 00:00: mouth [place] 00 daily. Medical Branch amLODIPine 2017- Yes 5mg Take 1 Unive rs 5 mg tablet 06-10 tablet by ity of 00:00: mouth [place] 00 daily. Medical Branch amLODIPine 2017-0 2021- No 5mg Take 1 Univ ers 5 mg tablet 06-10 tablet by it y of 00:00: 00:00 mouth [place] 00 :00 daily. Medical Branch lamoTRIgine lamoTRIgine No 1{table QD lamoTRIgin 100 [...] HCl 10 MG Effexor Effexor No Effexor [place] No [place] Pantoprazol Pantoprazol No Pantoprazo e Sodium 40 [...] ne-DM 6.25-15 6.25-15 6.25-15 MG/5ML MG/5ML MG/5ML [place] No [place] Pantoprazol Pantoprazol No Pantoprazo e Sodium 40 [...] HCl 4 MG t} HCl 4 MG [place] No [place] Effexor Effexor No Effexor Geodon 60 Geodon [...] MG 200 MG t} e 200 MG [place] No [place] Propranolol Propranolol No 1{table BID Propranolo HCl [...] MG 200 MG t} e 200 MG [place] No [place] Propranolol Propranolol No 1{table BID Propranolo HCl [...] MG le_with e HCl 60 _food} MG [place] No [place] lamoTRIgine lamoTRIgine No 1{table QD lamoTRIgin 200 [...] MG le_with e HCl 60 _food} MG [place] No [place] lamoTRIgine lamoTRIgine No 1{table QD lamoTRIgin 200 [...] MG le_with e HCl 60 _food} MG [place] No [place] lamoTRIgine lamoTRIgine No 1{table QD lamoTRIgin 200 [...] MG le_with e HCl 60 _food} MG [place] No [place] lamoTRIgine lamoTRIgine No 1{table QD lamoTRIgin 200 [...] HCl 10 MG l HCl 10 MG [place] No [place] Iron Iron No Iron Supplement Supplement Supplement [...] HCl 10 MG l HCl 10 MG [place] LORazepam LORazepam No 1{table QD LORazepam 0.5 MG 0.5 MG t_at_be 0.5 MG dtime_a s_neede d} hydrOXYzine hydrOXYzine No 1{table hydrOXYzin HCl 50 MG HCl 50 MG t_as_ne e HCl 50 eded} MG Propranolol Propranolol No 1{table BID Propranolo HCl 20 MG HCl 20 MG t_on_an l HCl 20 _empty_ MG stomach } Gabapentin Gabapentin No Gabapentin 600 MG 600 MG 600 MG [place] No [place] Pantoprazol Pantoprazol No 1{table QD Pantoprazo e [...] MG t_with_ e HCl 75 food} MG [place] No [place] Ziprasidone Ziprasidone No 2{capsu BID Ziprasidon HCl [...] MG t_with_ e HCl 75 food} MG [place] No [place] Ziprasidone Ziprasidone No 2{capsu BID Ziprasidon HCl [...] MG t_with_ e HCl 75 food} MG [place] No [place] Ziprasidone Ziprasidone No 2{capsu BID Ziprasidon HCl [...] HCl 20 MG l HCl 20 MG [place] No [place] Gabapentin Gabapentin No Gabapentin 600 MG 600 [...] Sodium 50 MCG 50 MCG 50 MCG [place] No [place] Pantoprazol Pantoprazol No Pantoprazo e Sodium 40 [...] Gabapentin 600 MG 600 MG 600 MG [place] No [place] Amitiza 24 Amitiza 24 No 1{capsu BID [...] t} le Sodium MG MG 40 MG [place] No [place] Vitamin D3 Vitamin D3 No 1{capsu QD [...] t} le Sodium MG MG 40 MG [place] No [place] Vitamin D3 Vitamin D3 No 1{capsu QD [...] Sodium 50 MCG 50 MCG 50 MCG [place] No [place] Vitamin D3 Vitamin D3 No 1{capsu QD [...] HCl 4 MG n HCl 4 MG [place] No [place] Promethazin Promethazin No QID Promethazi e-DM e-DM ne-DM 6.25-15 6.25-15 6.25-15 MG/5ML MG/5ML MG/5ML [place] No [place] Geodon 60 Geodon 60 No 1{capsu BID [...] 1 capsule Co mmon [place] with food [facility] Pantoprazol Pantoprazol Yes Davin 1 tablet Common e Sodium e Sodium Platt [facility] Propranolol Propranolol Yes Davin 1 tablet Common HCl HCl Platt on an Spirit empty - [facility]I stomach [facility] Vitamin D3 Vitamin D3 Yes Davin 1 capsule Common Platt [facility] Levothyroxi Levothyroxi Yes Davin 1 tablet Common ne Sodium ne Sodium Platt on an Spi rit empty - CHI stomach in [facility] Promethazin Promethazin Yes Davin 5 ml as Common e-DM e-DM Platt needed Spirit Nausea/Vom - [facility] iting [facility] Clonazepam Clonazepam Yes Davin 1 tablet Common Platt at bedtime [facility] Geodon Geodon Yes Davin 1 capsule Comm on Platt with food [facility] baclofen baclofen Yes Davin 1 tab as C ommon Platt needed for [facility] pain [facility] Iron Iron Yes Davin not Common Supplement Supplement Platt defined [facility] Ziprasidone Ziprasidone Yes Davin 1 capsule Common HCl HCl Platt with food [facility] Tizanidine Tizanidine Yes Davin 1 tablet Common HCl HCl Platt [facility] HydrOXYzine HydrOXYzine Yes Davin 1 tablet Common HCl HCl Platt [facility] Gabapentin Gabapentin Yes Davin 1 tablet Common Platt am and 2 Spirit tabs pm [facility] Gabapentin Gabapentin Yes Davin TAKE ONE Common Platt TABLET BY [facility] MOUTH [facility] EVERY [facility] AND THEN Medical TAKE TWO Center TABLETS BY MOUTH EVERY EVENING Wellbutrin Wellbutrin Yes Davin 1 tablet Common XL XL Platt in the [facility] Fluoxetine Fluoxetine Yes Davin 1 capsule Common HCl HCl Platt [facility] Pantoprazol Pantoprazol No Pantoprazo e Sodium 40 [...] HCl 10 MG l HCl 10 MG [place] No [place] FLUoxetine FLUoxetine No 1{capsu QD FLUoxetine HCl [...] ne-DM 6.25-15 6.25-15 6.25-15 MG/5ML MG/5ML MG/5ML [place] No [place] Immunizations Ordered Filled Immunization Date Status Comments Sour e Immunization Name Name Moderna COVID-19 Moderna COVID-19 2022-11-20 Completed [facility] - Vaccine, Bivalent Vaccine, Bivalent 08:50:00 [facility] Moderna COVID-19 Moderna COVID-19 2021-02-14 Completed [facility] - Vaccine Vaccine 09:03:00 [facility] Moderna COVID-19 Moderna COVID-19 2021-02-14 Completed [facility] - Vaccine Vaccine 09:03:00 [facility] Moderna COVID-19 Moderna COVID-19 2021-02-14 Completed [facility] - Vaccine Vaccine 09:03:00 [facility] Moderna COVID-19 Moderna COVID-19 2021-02-14 Completed [facility] - Vaccine Vaccine 09:03:00 [facility] Moderna COVID-19 Moderna COVID-19 2021-02-14 Completed [facility] - Vaccine Vaccine 09:03:00 [facility] Moderna COVID-19 Moderna COVID-19 2021-02-14 Completed [facility] - Vaccine Vaccine 09:03:00 [facility] Moderna COVID-19 Moderna COVID-19 2021-02-14 Completed [facility] - Vaccine Vaccine 09:03:00 [facility] Moderna COVID-19 Moderna COVID-19 2021-02-14 Completed [facility] - Vaccine Vaccine 09:03:00 [facility] Moderna COVID-19 Moderna COVID-19 2021-02-14 Completed [facility] - Vaccine Vaccine 09:03:00 [facility] Moderna COVID-19 Moderna COVID-19 2021-02-14 Completed [facility] - Vaccine Vaccine 09:03:00 [facility] Moderna COVID-19 Moderna COVID-19 2021-02-14 Completed [facility] - Vaccine Vaccine 09:03:00 [facility] Moderna COVID-19 Moderna COVID-19 2021-02-14 Completed [facility] - Vaccine Vaccine 09:03:00 [facility] Moderna COVID-19 Moderna COVID-19 2021-02-14 Completed [facility] - Vaccine Vaccine 09:03:00 [facility] Moderna COVID-19 Moderna COVID-19 2021-02-14 Completed [facility] - Vaccine Vaccine 09:03:00 [facility] Moderna COVID-19 Moderna COVID-19 2021-02-14 Completed [facility] - Vaccine Vaccine 09:03:00 [facility] Moderna COVID-19 Moderna COVID-19 2021-02-14 Completed [facility] - Vaccine Vaccine 09:03:00 [facility] Moderna COVID-19 Moderna COVID-19 2021-02-14 Completed [facility] - Vaccine Vaccine 09:03:00 [facility] Moderna COVID-19 Moderna COVID-19 2021-02-14 Completed [facility] - Vaccine Vaccine 09:03:00 [facility] Moderna COVID-19 Moderna COVID-19 2021-02-14 Completed [facility] - Vaccine Vaccine 09:03:00 [facility] Moderna COVID-19 Moderna COVID-19 2021-02-14 Completed [facility] - Vaccine Vaccine 09:03:00 [facility] Moderna COVID-19 Moderna COVID-19 2021-02-14 Completed [facility] - Vaccine Vaccine 09:03:00 [facility] Moderna COVID-19 Moderna COVID-19 2021-02-14 Completed [facility] - Vaccine Vaccine 09:03:00 [facility] Moderna COVID-19 Moderna COVID-19 2021-02-14 Completed [facility] - Vaccine Vaccine 09:03:00 [facility] Moderna COVID-19 Moderna COVID-19 2021-02-14 Completed [facility] - Vaccine Vaccine 09:03:00 [facility] Moderna COVID-19 Moderna COVID-19 2021-02-14 Completed [facility] - Vaccine Vaccine 09:03:00 [facility] SARS-COV-2 COVID-19 2021-02-10 Completed Unive rsity of [...] Completed Unive rsity of MODERNA VACCINE 00:00:00 [facility] Branch SARS-COV-2 COVID-19 2021-02-10 Completed Unive rsity of MODERNA VACCINE 00:00:00 [facility] Moderna COVID-19 Moderna COVID-19 2021-01-13 Completed [facility] - Vaccine Vaccine 16:57:00 [facility] Moderna COVID-19 Moderna COVID-19 2021-01-13 Completed [facility] - Vaccine Vaccine 16:57:00 [facility] Moderna COVID-19 Moderna COVID-19 2021-01-13 Completed [facility] - Vaccine Vaccine 16:57:00 [facility] Moderna COVID-19 Moderna COVID-19 2021-01-13 Completed [facility] - Vaccine Vaccine 16:57:00 [facility] Moderna COVID-19 Moderna COVID-19 2021-01-13 Completed [facility] - Vaccine Vaccine 16:57:00 [facility] Moderna COVID-19 Moderna COVID-19 2021-01-13 Completed [facility] - Vaccine Vaccine 16:57:00 [facility] Moderna COVID-19 Moderna COVID-19 2021-01-13 Completed [facility] - Vaccine Vaccine 16:57:00 [facility] Moderna COVID-19 Moderna COVID-19 2021-01-13 Completed [facility] - Vaccine Vaccine 16:57:00 [facility] Moderna COVID-19 Moderna COVID-19 2021-01-13 Completed [facility] - Vaccine Vaccine 16:57:00 [facility] Moderna COVID-19 Moderna COVID-19 2021-01-13 Completed [facility] - Vaccine Vaccine 16:57:00 [facility] Moderna COVID-19 Moderna COVID-19 2021-01-13 Completed [facility] - Vaccine Vaccine 16:57:00 [facility] Moderna COVID-19 Moderna COVID-19 2021-01-13 Completed [facility] - Vaccine Vaccine 16:57:00 [facility] [facility] Moderna COVID-19 Moderna COVID-19 2021-01-13 Completed [facility] - Vaccine Vaccine 16:57:00 [facility] Moderna COVID-19 Moderna COVID-19 2021-01-13 Completed [facility] - Vaccine Vaccine 16:57:00 [facility] Moderna COVID-19 Moderna COVID-19 2021-01-13 Completed [facility] - Vaccine Vaccine 16:57:00 [facility] Moderna COVID-19 Moderna COVID-19 2021-01-13 Completed [facility] - Vaccine Vaccine 16:57:00 [facility] Moderna COVID-19 Moderna COVID-19 2021-01-13 Completed [facility] - Vaccine Vaccine 16:57:00 [facility] Moderna COVID-19 Moderna COVID-19 2021-01-13 Completed [facility] - Vaccine Vaccine 16:57:00 [facility] Moderna COVID-19 Moderna COVID-19 2021-01-13 Completed [facility] - Vaccine Vaccine 16:57:00 [facility] Moderna COVID-19 Moderna COVID-19 2021-01-13 Completed [facility] - Vaccine Vaccine 16:57:00 [facility] Moderna COVID-19 Moderna COVID-19 2021-01-13 Completed [facility] - Vaccine Vaccine 16:57:00 [facility] Moderna COVID-19 Moderna COVID-19 2021-01-13 Completed [facility] - Vaccine Vaccine 16:57:00 [facility] Moderna COVID-19 Moderna COVID-19 2021-01-13 Completed [facility] - Vaccine Vaccine 16:57:00 [facility] Moderna COVID-19 Moderna COVID-19 2021-01-13 Completed [facility] - Vaccine Vaccine 16:57:00 [facility] Moderna COVID-19 Moderna COVID-19 2021-01-13 Completed [facility] - Vaccine Vaccine 16:57:00 [facility] SARS-COV-2 COVID-19 2021-01-13 Completed Unive rsity of [...] MODERNA VACCINE 00:00:00 [place] [facility] Vital Signs Vital Name Observation Time Observation Value Comments Source height 2022-09-22 11:10:00 61.5 [in_i] [facility] - [facility] weight 2022-09-22 11:10:00 143 [lb_av] Common [facility] temperature 2022-09-22 11:10:00 98 [degF] Common [facility] 2022-09-22 11:10:00 26.58 kg/m2 Common [facility] blood pressure 2022-09-22 11:10:00 128 mm[Hg] [facility] - systolic [facility] blood pressure 2022-09-22 11:10:00 76 mm[Hg] [facility] - diastolic [facility] height 2022-09-06 14:30:00 61.5 [in_i] Common [facility] weight 2022-09-06 14:30:00 145 [lb_av] Common pirit [facility] temperature 2022-09-06 14:30:00 97.4 [degF] [facility] bmi 2022-09-06 14:30:00 26.95 kg/m2 Common [facility] blood pressure 2022-09-06 14:30:00 125 mm[Hg] [facility] - systolic [facility] blood pressure 2022-09-06 14:30:00 84 mm[Hg] [facility] - diastolic [facility] height 2022-07-29 14:30:00 61.5 [in_i] Common [facility] weight 2022-07-29 14:30:00 145 [lb_av] Common [facility] temperature 2022-07-29 14:30:00 97.0 [degF] Common [facility] p[facility] bmi 2022-07-29 14:30:00 26.95 kg/m2 Common [facility] blood pressure 2022-07-29 14:30:00 128 mm[Hg] [facility] - systolic [facility] blood pressure 2022-07-29 14:30:00 82 mm[Hg] [facility] - diastolic [facility] Systolic blood 2022-07-26 20:00:00 161 mm[Hg] Univer sity of [facility] Diastolic blood 2022-07-26 20:00:00 94 mm[Hg] Unive rsity of [facility] Heart rate 2022-07-26 20:00:00 78 /min [facility] Oxygen saturation in 2022-07-26 20:00:00 100 /min [facility] Arterial blood by [facility] Pulse oximetry Branch Respiratory rate 2022-07-26 19:40:00 16 /min [facility] Body temperature 2022-07-26 16:42:00 36.89 Sarah [facility] Body height 2022-07-26 16:42:00 157.5 cm [facility] Body weight 2022-07-26 16:42:00 72.576 kg [facility] BMI 2022-07-26 16:42:00 29.26 kg/m2 [facility] height 2022-07-09 09:30:00 61.5 [in_i] Common [facility] weight 2022-07-09 09:30:00 145 [lb_av] [facility] temperature 2022-07-09 09:30:00 97.1 [degF] [facility] bmi 2022-07-09 09:30:00 26.95 kg/m2 [facility] blood pressure 2022-07-09 09:30:00 100 mm[Hg] [facility] - systolic [facility] blood pressure 2022-07-09 09:30:00 68 mm[Hg] [facility] - diastolic [facility] height 2022-06-30 15:00:00 61.5 [in_i] Common [facility] weight 2022-06-30 15:00:00 142 [lb_av] [facility] temperature 2022-06-30 15:00:00 97.9 [degF] [facility] bmi 2022-06-30 15:00:00 26.39 kg/m2 Common [facility] oximetry 2022-06-30 15:00:00 98 % Common [facility] respiratory rate 2022-06-30 15:00:00 16 /min Comm [facility] blood pressure 2022-06-30 15:00:00 145 mm[Hg] Common [facility] - systolic [facility] blood pressure 2022-06-30 15:00:00 70 mm[Hg] Common [facility] - diastolic [facility] Respiratory rate 2022-06-21 12:47:00 16 /min Univ [facility] Oxygen saturation in 2022-06-21 12:47:00 94 /min [facility] Arterial blood by [facility] Pulse oximetry Branch Systolic blood 2022-06-21 12:43:00 102 mm[Hg] Univer sit of [facility] Diastolic blood 2022-06-21 12:43:00 59 mm[Hg] [facility] 2022-06-21 12:43:00 70 /min [facility] Body temperature 2022-06-21 12:43:00 35.72 Sarah [facility] Body weight 2022-06-21 08:14:00 72.666 kg [facility] BMI 2022-06-21 08:14:00 29.30 kg/m2 [facility] Body height 2022-06-17 03:46:00 157.5 cm [facility] height 2022-06-09 13:00:00 61.5 [in_i] [facility] weight 2022-06-09 13:00:00 148 [lb_av] [facility] temperature 2022-06-09 13:00:00 98.7 [degF] Common [facility] bmi 2022-06-09 13:00:00 27.51 kg/m2 [facility] oximetry 2022-06-09 13:00:00 96 % [facility] respiratory rate 2022-06-09 13:00:00 16 /min Comm on [facility] blood pressure 2022-06-09 13:00:00 138 mm[Hg] Common [facility] - systolic [facility] blood pressure 2022-06-09 13:00:00 80 mm[Hg] Common [facility] - diastolic [facility] height 2022-06-09 13:00:00 62 [in_i] Common [facility] weight 2022-06-09 13:00:00 148 [lb_av] Common [facility] temperature 2022-06-09 13:00:00 98.7 [degF] Common [facility] bmi 2022-06-09 13:00:00 27.07 kg/m2 [facility] oximetry 2022-06-09 13:00:00 96 % [facility] respiratory rate 2022-06-09 13:00:00 16 /min Comm on [facility] blood pressure 2022-06-09 13:00:00 138 mm[Hg] Common [facility] - systolic [facility] blood pressure 2022-06-09 13:00:00 80 mm[Hg] Common [facility] - diastolic [facility] WEIGHT 2022-04-14 13:36:00 65.454 kg height 2022-02-09 13:10:00 62 [in_i] [facility] weight 2022-02-09 13:10:00 148.8 [lb_av] Common [facility] temperature 2022-02-09 13:10:00 96.6 [degF] Common [facility] bmi 2022-02-09 13:10:00 27.21 kg/m2 [facility] oximetry 2022-02-09 13:10:00 100 % [facility] respiratory rate 2022-02-09 13:10:00 18 /min Comm on [facility] blood pressure 2022-02-09 13:10:00 131 mm[Hg] [facility] - systolic [facility] blood pressure 2022-02-09 13:10:00 69 mm[Hg] [facility] - diastolic [facility] HEIGHT 2022-01-04 10:22:00 157.5 cm WEIGHT 2022-01-04 10:22:00 67.087 kg height 2021-10-12 14:10:00 62 [in_i] [facility] weight 2021-10-12 14:10:00 155 [lb_av] [facility] temperature 2021-10-12 14:10:00 98 [degF] [facility] bmi 2021-10-12 14:10:00 28.35 kg/m2 [facility] blood pressure 2021-10-12 14:10:00 121 mm[Hg] [facility] - systolic [facility] blood pressure 2021-10-12 14:10:00 76 mm[Hg] [facility] - diastolic [facility] Heart rate 2021-09-22 18:07:00 78 /min Universi ty of [facility] Systolic blood 2021-09-22 18:06:00 117 mm[Hg] Univer sity of pressure [facility] Diastolic blood 2021-09-22 18:06:00 65 mm[Hg] Unive rsity of pressure [facility] Oxygen saturation in 2021-09-22 18:06:00 100 /min [facility] Arterial blood by [facility] Pulse oximetry Branch Respiratory rate 2021-09-22 18:05:00 21 /min Univ ersity of [facility] Body temperature 2021-09-22 17:42:00 36.5 Sarah Univ ersity [facility] Body height 2021-09-14 14:52:00 157.5 cm Universi ty of [facility] Body weight 2021-09-14 14:52:00 70.3 kg Universi ty of [facility] BMI 2021-09-14 14:52:00 28.34 kg/m2 Universi ty [facility] Heart rate 2021-09-22 18:01:00 62 /min Universi ty [facility] Respiratory rate 2021-09-22 18:01:00 30 /min Univ ersity of [facility] Oxygen saturation in 2021-09-22 18:01:00 100 /min University of Arterial blood by [place] [facility] Pulse oximetry Branch Systolic blood 2021-09-22 17:56:00 105 mm[Hg] Univer sity of pressure [facility] Diastolic blood 2021-09-22 17:56:00 62 mm[Hg] Unive rsity of pressure [facility] Body temperature 2021-09-22 17:42:00 36.5 Sarah Univ ersity of [facility] Body height 2021-09-14 14:52:00 157.5 cm Universi ty [facility] Body weight 2021-09-14 14:52:00 70.3 kg [facility] BMI 2021-09-14 14:52:00 28.34 kg/m2 [facility] Heart rate 2021-08-20 18:49:00 62 /min Universi ty of [facility] Oxygen saturation in 2021-08-20 18:49:00 100 /min University of Arterial blood by [place] [facility] Pulse oximetry Branch Respiratory rate 2021-08-20 18:47:00 19 /min Univ ersity of [facility] Systolic blood 2021-08-20 18:45:00 127 mm[Hg] Univer sity of pressure [facility] Diastolic blood 2021-08-20 18:45:00 74 mm[Hg] Unive rsity of pressure [facility] Body temperature 2021-08-20 18:33:00 36.39 Sarah Univ ersity of [facility] Body height 2021-08-20 17:49:00 157.5 cm Universi ty [facility] Body weight 2021-08-20 17:49:00 70.308 kg [facility] BMI 2021-08-20 17:49:00 28.35 kg/m2 [facility] Heart rate 2021-08-20 18:49:00 62 /min [facility]i [facility] Oxygen saturation in 2021-08-20 18:49:00 100 /min University of Arterial blood by [place] [facility] Pulse oximetry Branch Respiratory rate 2021-08-20 18:47:00 19 /min Univ ersity of [facility] Systolic blood 2021-08-20 18:45:00 127 mm[Hg] Univer sity of pressure [facility] Diastolic blood 2021-08-20 18:45:00 74 mm[Hg] Unive rsity of pressure [facility] Body temperature 2021-08-20 18:33:00 36.39 Sarah [facility] Body height 2021-08-20 17:49:00 157.5 cm Universi ty [facility] Body weight 2021-08-20 17:49:00 70.308 kg Universi [facility] BMI 2021-08-20 17:49:00 28.35 kg[facility]m2 [facility] Diastolic blood 2022-04-14 13:36:00 77 mm[Hg] [facility] Heart rate 2022-04-14 13:36:00 69 /min [facility] Body temperature 2022-04-14 13:36:00 36.67 Sarah [facility] Body weight 2022-04-14 13:36:00 65.454 kg [facility] BMI 2022-04-14 13:36:00 26.39 kg/m2 [facility] Systolic blood 2022-04-14 13:36:00 118 mm[Hg] [facility] Procedures Procedure Date / Time Performing Source Performed Clinician MR LUMBAR SPINE WO CONTRAST 2022-09-23 Scott Shan Uni versity of 21:10:02 S [facility] ASSIGNMENT OF BENEFITS 2022-09-23 Doctor [facility] y of 20:12:40 Unassigned, No [facility] COMP. METABOLIC PANEL ([id number]) 2022-07-26 Nilay Lennon Un iversity of 18:57:00 [facility] CBC WITH DIFF 2022-07-26 Nilay Lennon [place] of 18:57:00 [facility] URINALYSIS 2022-07-26 Nilay Lennon [place] of 18:57:00 [facility] CT ABDOMEN PELVIS WO CONTRAST 2022-07-26 Nilay Lennon iversity of 18:03:32 [facility] CONSENT/REFUSAL FOR DIAGNOSIS AND 2022-07-26 [facility] of TREATMENT 16:32:59 Unassigned, No [facility] HEPATIC FUNCTION PANEL ([id number]) 2022-06-21 Tika Cummings niversity of (ALB,T.PRO,BILI 11:05:00 [facility] T,BU/BC,ALT,AST,ALK PHOS) [place] BASIC METABOLIC PANEL (NA, K, CL, 2022-06-21 Emiliano, [facility] University of CO2, GLUCOSE, BUN, CREATININE, CA) 11:05:00 [facility] URINALYSIS 2022-06-20 [facility] 22:41:00 [facility] BASIC METABOLIC PANEL (NA, K, CL, 2022-06-20 Emiliano, [facility] of CO2, GLUCOSE, BUN, CREATININE, CA) 08:54:00 [facility] CBC WITH DIFF 2022-06-20 Emiliano [facility] of 08:54:00 [facility] HEPATIC FUNCTION PANEL ([id number]) 2022-06-19 Tika Cummings niversity of (ALB,T.PRO,BILI 09:22:00 [facility] T,BU/BC,ALT,AST,ALK PHOS) [place] BASIC METABOLIC PANEL (NA, K, CL, 2022-06-19 Emiliano, [facility] of CO2, GLUCOSE, BUN, CREATININE, CA) 09:22:00 [facility] CBC WITH DIFF 2022-06-19 [facility] 09:22:00 [facility] BLOOD CULTURE SCREEN 2022-06-[address] [facility] of 03:22:00 [facility] BLOOD CULTURE SCREEN 2022-06-[address] [facility] of 03:16:00 [facility] XR CHEST 1 VW 2022-06-[address] [facility] of 01:50:09 [facility] HEPATIC FUNCTION PANEL ([id number]) 2022-06-18 Tika Cummings niversity of (ALB,T.PRO,BILI 10:14:00 [facility],BU/BC,ALT,AST,ALK PHOS) Branch PHOSPHORUS 2022-06-17 Herbie Olvera of 09:00:00 [facility] MAGNESIUM 2022-06-17 Herbie Olvera [place] of 09:00:00 [facility] TROPONIN I 2022-06-17 Herbie Olvera [place] of 09:00:00 [facility] THYROID STIMULATING HORMONE 2022-06-17 Herbie Olvera [facility] ersity of 09:00:00 [facility] COMP. METABOLIC PANEL ([id number]) 2022-06-17 Herbie Olvera Un iversity of 09:00:00 [facility] LIPID PANEL ([id number])(TOTAL 2022-06-17 Herbie Olvera [facility] sity of CHOLESTEROL, TRIGLYCERIDES, HDL) 09:00:00 [facility] CBC WITH DIFF 2022-06-17 Herbie Olvera [place] of 09:00:00 [facility] PROTHROMBIN TIME / INR 2022-06-17 [facility] 09:00:00 [facility] HEPATITIS B SURFACE ANTIBODY 2022-06-17 Jesus Mora [facility] versity of 09:00:00 [facility] HEPATITIS B SURFACE ANTIGEN 2022-06-17 Jesus Mora [facility] ersity of 09:00:00 [facility] HCV ANTIBODY 2022-06-17 Jesus Mora [place] of 09:00:00 [facility] HBC ANTIBODY (IGM & IGG) 2022-06-17 Jesus [facility] ity of 09:00:00 [facility] LAMOTRIGINE, LEVEL 2022-06-17 [facility] 09:00:00 [facility] N-TERMINAL PRO-BNP 2022-06-17 Herbie Olvera [place] of 09:00:00 [facility] PROCALCITONIN 2022-06-17 [facility] 09:00:00 [facility] CT ABDOMEN PELVIS W CONTRAST 2022-06-17 Hill Sawyer Uni versity of 00:50:10 [facility] CBC WITH DIFF 2022-06-17 Hill Sawyer of 00:24:00 [facility] GLYCOSYLATED HEMOGLOBIN (A1C) 2022-06-17 Herbie Olvera Un iversity of 00:24:00 [facility] HB ECG ROUTINE & RHYTHM STRIP 2022-06-17 Hill Sawyer Un iversity of 00:06:46 [facility] BLOOD CULTURE SCREEN 2022-06-17 Hill Sawyer of 00:00:00 [facility] LIPASE 2022-06-17 Hill Sawyer of 00:00:00 [facility] MAGNESIUM 2022-06-17 Hill Sawyer [place] of 00:00:00 [facility] TROPONIN I 2022-06-17 Hill Sawyer [place] of 00:00:00 [facility] COMP. METABOLIC PANEL ([id number]) 2022-06-17 Hill Sawyer Un iversity of 00:00:00 [facility] URINALYSIS 2022-06-17 Hill Sawyer [place] of 00:00:00 [facility] COVID-19 (ID NOW RAPID TESTING) 2022-06-17 Hill Sawyer [place] of 00:00:00 [facility] LAB ONLY COVID INTERPRETATION 2022-06-17 Hill Sawyer Un iversity of 00:00:00 [facility] NOTICE OF PRIVACY PRACTICES 2022-06-16 Doctor [facility] ersity of 22:38:45 Unassigned, No [facility] CONSENT/REFUSAL FOR DIAGNOSIS AND 2022-06-16 Doctor [facility] 22:35:24 Unassigned, No [facility] HB CREATININE BLOOD 2021-10-16 Carlton Echeverria [place] f 21:37:00 [facility] NOTICE OF BILLING PRACTICES FOR 2021-10-16 Doctor [place] of MEDICARE PATIENTS 21:05:05 Unassigned, No [facility] PATIENT FINANCIAL POLICY 2021-10-16 Doctor Un iversity of 21:04:40 Unassigned, No [facility] NO SHOW OR MISSED APPOINTMENT 2021-10-16 Doctor Un iversity of POLICY ACKNOWLEDGEMENT 21:04:21 Unassigned, No [facility] CONSENT/REFUSAL FOR DIAGNOSIS AND 2021-10-16 Doctor [facility] 21:03:59 Unassigned, No [facility] ASSIGNMENT OF BENEFITS 2021-10-16 Doctor Universit y of 21:03:40 Unassigned, No [facility] COLONOSCOPY 2021-09-22 Carlton Echeverria [place] of 16:38:00 [facility] ESOPHAGOGASTRODUODENOSCOPY 2021-09-22 Carlton Echeverria [facility] rsity of 16:38:00 [facility] COLONOSCOPY (ENDO) 2021-09-22 Justin Platth Cristofer [place] of 16:33:27 [facility] COLONOSCOPY (ENDO) 2021-09-22 Davin Platt [facility] 16:33:27 [facility] EGD (ENDO) 2021-09-22 Davin Platt [facility] 16:23:06 [facility] EGD (ENDO) 2021-09-22 Davin Platt [facility] 16:23:06 [facility] DAY SURGERY - ADC 2021-09-22 Doctor [place] of 06:01:00 Unassigned, No [facility] EXTERNAL PROVIDER RECORDS 2021-09-16 Doctor Univer sity of 06:01:00 Unassigned, No [facility] EXTERNAL PROVIDER RECORDS 2021-09-16 Doctor Univer sity of 06:01:00 Unassigned, No [facility] EXTERNAL PROVIDER RECORDS 2021-09-14 Doctor Univer sity of 06:01:00 Unassigned, No [facility] EXTERNAL PROVIDER RECORDS 2021-09-14 Doctor Univer sity of 06:01:00 Unassigned, No [facility] COLONOSCOPY (ENDO) 2021-08-20 Carlton Echeverria [facility] 18:15:37 [facility] COLONOSCOPY 2021-08-20 Carlton Echeverria [facility] 18:01:00 [facility] PATIENT QUESTIONNAIRE 2021-08-20 [place] of 06:01:00 Unassigned, No [facility] EXTERNAL PROVIDER RECORDS 2021-08-03 Doctor Univer sity of 05:01:00 Unassigned, No [facility] EXTERNAL PROVIDER RECORDS 2021-08-03 Doctor Univer sity of 05:01:00 Unassigned, No [place] [facility] Plan of Care Planned Activity Planned Date Details Comments Source Future Scheduled 2031-09-22 Screening for malignant [facility] Test 00:00:00 neoplasm of colon Medical Ce nter (procedure) [code = 407700471] Future Scheduled 2031-09-22 Screening for malignant [facility] Test 00:00:00 neoplasm of colon Medical Ce nter (procedure) [code = 997437394] Future Scheduled 2031-09-22 Screening for malignant [facility] Test 00:00:00 neoplasm of colon Medical Ce nter (procedure) [code = [id number]] Future Scheduled 2031-09-22 Screening for malignant [facility] Test 00:00:00 neoplasm of colon Medical Ce nter (procedure) [code = 271003511] Future Scheduled 2031-09-22 Screening for malignant [facility] 00:00:00 neoplasm of colon Medical Ce nter (procedure) [code = 323183860] Future Scheduled 2031-09-22 Screening for malignant [facility] 00:00:00 neoplasm of colon Medical Ce nter (procedure) [code = 607942064] Future Scheduled 2031-09-22 Screening for malignant [facility] 00:00:00 neoplasm of colon Medical Ce nter (procedure) [code = 413655214] Future Scheduled 2031-09-22 Screening for malignant [facility] 00:00:00 neoplasm of colon Medical Ce nter (procedure) [code = 395720806] Future Scheduled 2023-06-03 Influenza Vaccine (#1) [facility] [code = Influenza Vaccine Me dical Center (#1)] Future Scheduled 2023-06-03 Influenza Vaccine (Season [facility] 00:00:00 Ended) [code = Influenza Med ical Center Vaccine (Season Ended)] Future Scheduled 2023-06-03 Influenza Vaccine (#1) [facility] 00:00:00 [code = Influenza Vaccine Me dical Center (#1)] Future Scheduled 2023-06-03 Influenza Vaccine (#1) [facility] 00:00:00 [code = Influenza Vaccine Me dical Center (#1)] Future Scheduled 2023-04-[address] [facility] 00:00:00 Counseling and Screening Med ical Center (12+) [code = Tobacco Cessation Counseling and Screening (12+)] Future Scheduled 2023-04-[address] [facility] 00:00:00 Counseling and Screening Med ical Center (12+) [code = Tobacco Cessation Counseling and Screening (12+)] Future Scheduled 2023-04-[address] [facility] 00:00:00 Counseling and Screening Med ical Center (12+) [code = Tobacco Cessation Counseling and Screening (12+)] Future Scheduled 2023-04-[address] [facility] 00:00:00 Counseling and Screening Med ical Center (12+) [code = Tobacco Cessation Counseling and Screening (12+)] Future Scheduled 2022-10-[address] [facility] 00:00:00 (12+) [code = DEPRESSION Med ical Center SCREENING (12+)] Future Scheduled 2022-10-[address] [facility] 00:00:00 (12+) [code = DEPRESSION Med ical Center SCREENING (12+)] Future Scheduled 2022-10-[address] [facility] 00:00:00 (12+) [code = DEPRESSION Med ical Center SCREENING (12+)] Future Scheduled 2022-10-[address] [facility] 00:00:00 (12+) [code = DEPRESSION Med ical Center SCREENING (12+)] Future Scheduled 2021-04-11 COVID-19 VACCINE [...] Moderna series)] Future Scheduled 2020-06-26 MED[address]AL WELLNESS [facility] 00:00:00 (YEAR 2 or FIRST YEAR if Med ical Center no IPPE) [code = MEDICARE ANNUAL WELLNESS (YEAR 2 or FIRST YEAR if no IPPE)] Future Scheduled 2020-06-26 MEDICARE ANNUAL WELLNESS [facility] 00:00:00 (YEAR 2 or FIRST YEAR if Med ical Center no IPPE) [code = MEDICARE ANNUAL WELLNESS (YEAR 2 or FIRST YEAR if no IPPE)] Future Scheduled 2020-06-26 MEDICARE ANNUAL WELLNESS [facility] 00:00:00 (YEAR 2 or FIRST YEAR if Med ical Center no IPPE) [code = MEDICARE ANNUAL WELLNESS (YEAR 2 or FIRST YEAR if no IPPE)] Future Scheduled 2020-06-26 MEDICARE ANNUAL WELLNESS [facility] 00:00:00 (YEAR 2 or FIRST YEAR if [facility] no IPPE) [code = MEDICARE ANNUAL WELLNESS [...] [facility] 00:00:00 [code = 68145383] Medical Ce nter Future Scheduled 2008-12-26 Lipid panel (procedure) [facility] 00:00:00 [code = 14425058] Medical Ce nter Future Scheduled 2008-12-26 Lipid panel (procedure) [facility] 00:00:00 [code = 68939620] Medical Ce nter Future Scheduled 2008-12-26 Lipid panel (procedure) [facility] 00:00:00 [code = 86119458] Medical Ce nter Future Scheduled 1984-12-26 Screening for malignant [facility] 00:00:00 neoplasm of cervix Medical C enter (procedure) [code = 629174415] Future Scheduled 1984-12-26 Screening for malignant [facility] 00:00:00 neoplasm of cervix Medical C enter (procedure) [code = 210776447] Future Scheduled 1984-12-26 Screening for malignant [facility] 00:00:00 neoplasm of cervix Medical C enter (procedure) [code = 892872707] Future Scheduled 1984-12-26 Screening for malignant [facility] 00:00:00 neoplasm of cervix Medical C enter (procedure) [code = 781019882] Future Scheduled 1982-12-26 DTAP/TDAP/TD VACCINES ([address] [facility] 00:00:00 - Tdap) [code = Medical Cent er DTAP/TDAP/TD VACCINES (1 - Tdap)] Future Scheduled 1982-12-26 DTAP/TDAP/TD VACCINES ([address] [facility] 00:00:00 - Tdap) [code = Medical Cent er DTAP/TDAP/TD VACCINES (1 - Tdap)] Future Scheduled 1982-12-26 DTAP/TDAP/TD VACCINES ([address] [facility] 00:00:00 - Tdap) [code = Medical Cent er DTAP/TDAP/TD VACCINES (1 - Tdap)] Future Scheduled 1982-12-26 DTAP/TDAP/TD VACCINES ([address] [facility] 00:00:00 - Tdap) [code = Medical Cent er DTAP/TDAP/TD VACCINES (1 - Tdap)] Future Scheduled [...] HEPATITIS C Medical Center SCREENING] Future Scheduled 1978-12-[address] [facility] 00:[facility]:00 virus screening Medical Cent er (procedure) [code = 234946861] Future Scheduled 1963 Screening for malignant [facility] 00:00:00 neoplasm of breast Medical C enter (procedure) [code = 462633906] Future Scheduled 1963 CT Colonography (combo) [facility] 00:00:00 [code = CT Colonography [facility] (combo)] Future Scheduled 1963 Screening for malignant [facility] 00:00:00 neoplasm of colon Medical Ce nter (procedure) [code = 370036603] Future Scheduled 1963 Screening for malignant [facility] 00:00:00 neoplasm of colon Medical Ce nter (procedure) [code = 802131497] Future Scheduled 1963 Sigmoidoscopy [code = [facility]] Medical Cente r Future Scheduled 1963 Screening for malignant [facility] 00:00:00 neoplasm of breast Medical C enter (procedure) [code = 495432467] Future Scheduled 1963 CT Colonography (combo) [facility] 00:00:00 [code = CT [facility] ([facility]bo)] Future Scheduled 1963 Screening for malignant [facility] 00:00:00 neoplasm of colon Medical Ce nter (procedure) [code = 601098480] Future Scheduled 1963 Screening for malignant [facility] 00:00:00 neoplasm of colon Medical Ce nter (procedure) [code = 103227450] Future Scheduled 1963 Sigmoidoscopy [code = [facility]oscopy] Medical Cente r Future Scheduled 1963 Screening for malignant [facility] 00:00:00 neoplasm of breast Medical C enter (procedure) [code = 393256457] Future Scheduled 1963 CT Colonography (combo) [facility] 00:00:00 [code = CT Colonography [facility] (combo)] Future Scheduled 1963 Screening for malignant [facility] 00:00:00 neoplasm of colon Medical Ce nter (procedure) [code = 962546156] Future Scheduled 1963 Screening for malignant [facility] 00:00:00 neoplasm of colon Medical Ce nter (procedure) [code = 994484076] Future Scheduled 1963 Sigmoidoscopy [code = [facility] S[facility]oscopy] Medical Cente r Future Scheduled 1963 Screening for malignant [facility] 00:00:00 neoplasm of breast Medical C enter (procedure) [code = 047387369] Future Scheduled 1963 CT Colonography (combo) [facility] 00:00:00 [code = CT Colonography [facility] (combo)] Future Scheduled 1963 Screening for malignant [facility] 00:00:00 neoplasm of colon Medical Ce nter (procedure) [code = 287821964] Future Scheduled 1963 Screening for malignant [facility] 00:00:00 neoplasm of colon Medical Ce nter (procedure) [code = 086480479] Future Scheduled 1963 Sigmoidoscopy [code = [facility] S[facility]oscopy] Medical Cente r Encounters Start End Encounter Admission Attending Care Care Encounter Source Date/Time Date/Time Type Type Clinicians Facility Department ID 2023-04-20 Outpatient Platt, STLMLC STLMLC [id number] Common 15:37:00 Davin 90158 [facility] 2023-03-18 Outpatient Platt, STLMLC STLMLC [id number] Common 10:58:00 Davin 29780 [facility] 2023-01-18 Outpatient Platt, STLMLC STLMLC [id number] Common 09:19:00 Davin 62318 [facility] 2023-01-03 Outpatient Platt, STLMLC STLMLC [id number] Common 13:22:00 Davin 26391 [facility] 2022-09-20 Outpatient Platt, STLMLC STLMLC [id number] Common 09:30:01 Davin 41897 [facility] 2022-07-09 Outpatient Platt, STLMLC STLMLC [id number] Common 10:44:00 Davin 26951 [facility] 2022-07-06 Outpatient Platt, STLMLC STLMLC [id number] Common 09:19:01 Davin 28178 [facility] 2022-07-05 Outpatient Platt, STLMLC STLMLC [id number] Common 16:24:02 Davin 18472 [facility] 2022-07-01 Outpatient Platt, STLMLC STLMLC [id number] Common 09:38:00 Davin 55575 [facility] 2022-06-29 Outpatient Platt, STLMLC STLMLC [id number] Common 11:52:00 Davin 40793 [facility] 2021-10-28 Outpatient Platt, STLMLC STLMLC [id number] Common 14:00:30 Davin 00329 [facility] 2021-10-28 Outpatient Platt, STLMLC STLMLC [id number] Common 13:48:24 Davin 80113 [facility] 2021-10-28 Outpatient Platt, STLMLC STLMLC [id number] Common 13:04:06 Davin 88570 [facility] 2021-10-28 Outpatient Platt, STLMLC STLMLC [id number] Common 12:33:05 Davin 87746 [facility] 2021-10-28 Outpatient Platt, STLMLC STLMLC [id number] Common 12:32:02 Davin 17242 [facility] 2021-10-28 Outpatient Platt, STLMLC STLMLC [id number] Common 12:11:19 Davin 31238 [facility] 2021-10-28 Outpatient Platt, STLMLC STLMLC [id number] Common 12:06:04 Davin 32942 [facility] 2021-10-28 Outpatient Platt, STLMLC STLMLC [id number] Common 11:57:23 Davin 30251 [facility] 2021-10-28 Outpatient Platt, STLMLC STLMLC [id number] Common 11:38:16 Davin 93830 [facility] 2021-10-28 Outpatient Platt, STLMLC STLMLC [id number] Common 11:16:03 Davin 11786 [facility] 2021-10-28 Outpatient Platt, STLMLC STLMLC [id number] Common 11:11:18 Davin 02330 [facility] 2021-10-28 Outpatient Platt, STLMLC STLMLC [id number] Common 11:09:24 Davin 86328 [facility] 2021-10-28 Outpatient Platt, STLMLC STLMLC [id number] Common 11:08:56 Davin 57399 [facility] 2021-10-28 Outpatient Platt, [facility] [id number] Common 11:08:09 [facility] 7[address]32 [facility] 2023-04-21 2023-04-21 Outpatient [id number] PRIV PRIV [id number] [facility] 00:00:00 00:00:00 diyala_S [id number] Medic al 2023-04-18 2023-04-18 JALEEL Visit Marlisa 2.16.840. 2.16.840.1. CL [id number] [facility] 15:30:00 16:30:00 [place] 1.305994. [id number]. GZY Medical [id number] [id number] 2022-11-16 2022-11-16 CAV Marla Abhinav 2.16.840. 2.16.840.1. C [id number] [facility] 21:30:00 22:30:00 [id number]. [id number]. RRG Medical [id number] [id number] 2022-11-11 2022-11-11 Telephone Bormn, [facility] [id number] [facility] [address] 00:00:00 00:00:00 [facility] 2022-11-11 2022-11-11 Telephone Boror, [facility] [id number] [facility] St 00:00:00 00:00:00 [facility] 2022-11-10 2022-11-10 (TEL) [facility] [id number] Co mmon 00:00:00 00:00:00 [facility] 2022-11-09 2022-11-09 Outpatient Alex_R DMG [facility] [id number] [facility] 00:00:00 00:00:00 [id number] [facility]ica l Group 2022-11-09 2022-11-09 Outpatient Alex_R DMG DM [id number] [facility] 00:00:00 00:00:00 [id number] Medica l Group 2022-10-29 2022-10-29 (TEL) [facility] [id number] Co mmon 00:00:00 00:00:00 [facility] 2022-10-25 2022-10-25 (TEL) STLMLC STLC [id number] Co mmon 00:00:00 00:00:00 Spirit - [facility] 2022-09-23 2022-09-23 Outpatient Patsy SANTANA [facility] [id number] Univers 14:15:10 23:59:00 SHAN ity of [facility] 2022-09-23 2022-09-23 [facility] 1.2.840.114 [id number] Univers 14:15:10 23:59:00 Encounter Shan BURRELL 350.1.13.10 ity of [place] 4.2.7.2.686 [facility] [phone] [facility] [address] 2022-09-23 2022-09-23 Orders Doctor GRISEL 1.2.840.114 [id number] Univers 00:00:00 00:00:00 Only Unassigned, LEONIDES 350.1.13.[address] [facility] 4.2.7.2.686 [facility] [phone] [facility] [address] 2022-09-22 2022-09-22 OFFICE [facility] ST[facility] [id number] Co mmon 00:00:00 00:00:00 VISIT [facility] PT - CHI LEVEL 4 [facility] 2022-09-06 2022-09-06 Telephone Oscar, [facility] [id number] 00:00[facility]00 00:00:00 [facility] 2022-09-06 2022-09-06 Telephone Oscar, [facility] [id number] 00:00[facility]00 00:00:00 [facility] 2022-09-06 2022-09-06 OFFICE STLC STLC [id number] Co mmon 00:00:00 00:00:00 VISIT Spirit [facility] PT - CHI LEVEL 4 [facility] 2022-08-11 2022-08-11 Outpatient Patsy OJEDA [facility] [id number] Univers 00:00:00 00:00:00 SCAR itanthony [facility] 2022-07-30 2022-07-30 Outpatient DMG DMG [id number] [facility] 00:00:00 00:00:00 [id number] Medica l Group 2022-07-29 2022-07-29 Outpatient DMG DMG [id number] [facility] 00:00:00 00:00:00 [id number] Medica l Group 2022-07-29 2022-07-29 OFFICE STLMLC STLMLC [id number] Co mmon 00:00:00 00:00:00 VISIT [facility] ESTAB PT - CHI LEVEL 4 [facility] 2022-07-26 2022-07-26 Emergency X [facility] ERT [id number] Univers 11:44:00 15:33:00 NILAY martinez [facility] 2022-07-26 2022-07-26 Emergency [facility] [id number] [id number] Univers 11:44:00 15:33:00 Nilay BURRELL 350.1.13.10 [facility] 4.2.7.2.686 [facility] [id number] [facility] [address] 2022-07-26 2022-07-26 (TEL) STLMLC STLMLC [id number] Co mmon 00:00:00 00:00:00 [facility] 2022-07-14 2022-07-14 (TEL) STLMLC STLMLC [id number] Co mmon 00:00:00 00:00:00 Spirit - [facility] 2022-07-09 2022-07-09 OFFICE STLMLC STLMLC [id number] Co mmon 00:00:00 00:00:00 VISIT Spirit ESTAB PT - CHI LEVEL 4 [facility] 2022-07-06 2022-07-06 (TEL) STLMLC STLMLC [id number] Co mmon 00:00:00 00:00:00 Spirit - [facility] 2022-07-05 2022-07-05 (TEL) STLMLC STLMLC [id number] Co mmon 00:00:00 00:00:00 Spirit [facility] 2022-06-30 2022-06-30 (HOSP F/U) STLMLC STLMLC [id number] Common 00:00:00 00:00:00 [facility] Follow Up - [facility] 2022-06-23 2022-06-23 (TEL) STLMLC STLC [id number] Co mmon 00:00:00 00:00:00 Spirit - [facility] 2022-06-22 2022-06-22 Transition MARCELINO Puri 1.2.840.114 [id number] Univers 00:00:00 00:00:00 of Care Spike VEE 350.1.13.10 ity of [place] [id number] [facility] [address] 2022-06-16 2022-06-21 Inpatient X [facility] [id number] Univers 18:03:00 12:23:00 JESUS ity of [facility] 2022-06-16 2022-06-21 [facility] [place] Sawyer [facility] 1.2.840.1 14 [id number] Univers 18:03:00 12:23:00 Encounter Pauly Wan 350.1.1 3.10 ity of Herbie Olvera 4.2.7.2.686 [facility] [id number] Medical 0[address] 2022-06-16 2022-06-16 Orders Doctor GRISEL 1.2.840.114 [id number] Univers 00:00:00 00:00:00 Only Unassigned, LEONIDES 350.1.13.10 ity of [place] [facility] 4.2.7.2.686 Faustino as [phone] [facility] [address] 2022-06-09 2022-06-09 OFFICE [facility] STLC [id number] Co mmon 00:00:00 00:00:00 VISIT Spirit ESTAB PT - CHI LEVEL 4 [facility] 2022-06-09 2022-06-09 (TEL) STLMLC STLC [id number] Co mmon 00:00:00 00:00:00 Spirit - [facility] 2022-06-09 2022-06-09 SUB ANNUAL [facility] [id number] Common 00:00:00 00:00:00 MCR Spirit WELLNESS - CHI VISIT [facility] 2022-05-20 2022-05-20 (TEL) [facility] [id number] Co mmon 00:00:00 00:00:00 [facility] - [facility] 2022-05-18 2022-05-18 Telephone Oscar, [facility] [id number] 00:00[facility]00 00:00:00 [facility] 2022-05-18 2022-05-18 Telephone Oscar, [facility] [id number] 00:00:00 00:00:00 [facility] 2022-04-14 2022-04-14 Office ISSAC Krueger [facility] [id number] 13:15:00 14:25:49 Visit [facility] 2022-02-09 2022-02-09 [facility]ICE [facility] [id number] Co mmon 00:00:00 00:00:00 VISIT Spirit ESTAB PT - CHI LEVEL 4 [facility] 2022-01-04 2022-01-04 Outpatient ISSAC KRUEGER [facility] [id number] 09:57:22 12:00:27 [facility] 2021-12-17 2021-12-17 (TEL) [facility] [id number] Co mmon 00:00:00 00:00:00 Spirit - [facility] 2021-10-16 2021-10-16 [facility] [id number] Univers 15:06:23 23:59:00 CARLTON ity of [facility] 2021-10-16 2021-10-16 [facility] 1.2.486.857 [id number] Univers 15:00:00 23:59:00 Encounter Carlton BURRELL 350.1.13.10 [facility] 4.2.7.2.686 [facility] [id number] [address] 2021-10-12 2021-10-12 OFFICE STLMLC STLMLC [id number] Co mmon 00:00:00 00:00:00 VISIT Spirit ESTAB PT - CHI LEVEL 4 [facility] 2021-09-22 2021-09-22 [facility] 1.2.746.987 [id number] Univers 10:16:00 12:21:00 Encounter Carlton Brower [place] 350.1.13.10 ity [place] [id number] [facility] [address] 2021-09-22 2021-09-22 Outpatient R [facility] CAND[facility] [id number] Univers 10:16:00 12:21:00 CARLTON y [facility] 2021-09-22 2021-09-22 [facility] 1.2.840.114 [id number] Univers 10:50:00 12:01:00 Carlotn Brower [place] 350.1.13.10 i ty [place] [id number] [facility] 0[address] 2021-09-22 2021-09-22 Orders Doctor GRISEL 1.2.840.114 [id number] Univers 00:00:00 00:00:00 Only Unassigned, LEONIDES 350.1.13.10 ity of [place] [facility] 4.2.7.2.686 Faustino as [phone] [place] [address] Branch 2021-09-21 2021-09-21 [facility] [id number] Univers 08:15:00 08:15:00 CARLTON ity [facility] 2021-09-04 2021-09-04 (TEL) STLMLC STLMLC [id number] Co mmon 00:00:00 00:00:00 Spirit - [facility] 2021-08-20 2021-08-20 Surgery [facility] 1.2.840.114 [id number] Univers 12:50:00 14:12:00 Carlton Leonarda [place] 350.1.13.10 i ty [place] [id number] [address] 2021-08-20 2021-08-20 Outpatient R MARIA [facility] [id number] Univers 11:19:00 12:57:00 CARLTON ity [facility] 2021-08-20 2021-08-20 [facility] 1.2.224.582 [id number] Univers 11:19:00 12:57:00 Encounter Carlton Brower [place] 350.1.13.10 ity of [place] [id number] [facility] [address] 2021-08-20 2021-08-20 Orders Doctor GRISEL 1.2.840.114 [id number] Univers 00:00:00 00:00:00 Only Unassigned, LEONIDES 350.1.13.10 [facility] 4.2.7.2.686 Faustino as [phone] [place] [address] Branch 2021-08-17 2021-08-17 [facility] [id number] Univers 08:45:00 08:45:00 CARLTON y [facility] 2021-07-13 2021-07-13 (TEL) STLMLC STLMLC [id number] Co mmon 00:00:00 00:00:00 [facility] 2021-07-06 2021-07-06 (TEL) STLMLC STLMLC [id number] Co mmon 00:00:00 00:00:00 [facility] 2021-07-02 2021-07-02 Outpatient STLMLC STLMLC [id number] Common 00:00:00 00:00:00 [facility] 2021-06-16 2021-06-16 Outpatient STLMLC STLMLC [id number] Common 00:00:00 00:00:00 [facility] 2021-06-04 2021-06-04 Outpatient STLMLC STLMLC [id number] Common 00:00:00 00:00:00 [facility] 2021-06-01 2021-06-01 Outpatient STLMLC STLMLC [id number] Common 00:00:00 00:00:00 [facility] 2021-05-27 2021-05-27 Outpatient STLMLC STLMLC [id number] Common 00:00:00 00:00:00 [facility] 2021-05-20 2021-05-20 Outpatient STLMLC STLMLC [id number] Common 00:00:00 00:00:00 [facility] 2021-05-20 2021-05-20 Outpatient STLMLC STLMLC [id number] Common 00:00:00 00:00:00 [facility] 2021-04-08 2021-04-08 Outpatient STLMLC STLMLC [id number] Common 00:00:00 00:00:00 [facility] 2021-04-08 2021-04-08 Outpatient STLMLC STLMLC [id number] Common 00:00:00 00:00:00 [facility] 2021-03-25 2021-03-25 Outpatient STLMLC STLMLC [id number] Common 00:00:00 00:00:00 [facility] 2021-02-16 2021-02-16 Outpatient STLMLC STLMLC [id number] Common 00:00:00 00:00:00 [facility] 2021-02-16 2021-02-16 Outpatient STLMLC STLMLC [id number] Common 00:00:00 00:00:00 [facility] 2020-11-26 2020-11-26 Outpatient STLMLC STLMLC [id number] Common 00:00:00 00:00:00 [facility] 2020-11-20 2020-11-20 Outpatient STLMLC STLMLC [id number] Common 00:00:00 00:00:00 [facility] 2020-11-03 2020-11-03 Outpatient STLMLC STLMLC [id number] Common 00:00:00 00:00:00 [facility] 2020-09-09 2020-09-09 Outpatient STLMLC STLMLC [id number] Common 00:00:00 00:00:00 [facility] 2020-09-08 2020-09-08 Outpatient STLMLC STLMLC [id number] Common 00:00:00 00:00:00 [facility] 2020-08-20 2020-08-20 Outpatient STLMLC STLMLC [id number] Common 00:00:00 00:00:00 [facility] 2020-08-07 2020-08-07 Outpatient STLMLC STLMLC [id number] Common 00:00:00 00:00:00 [facility] 2020-07-24 2020-07-24 Outpatient STLMLC STLMLC [id number] Common 00:00:00 00:00:00 [facility] 2020-07-21 2020-07-21 Outpatient STLMLC STLMLC [id number] Common 00:00:00 00:00:00 [facility] 2020-07-21 2020-07-21 Outpatient STLMLC STLMLC [id number] Common 00:00:00 00:00:00 [facility] 2020-07-18 2020-07-18 Outpatient STLMLC STLMLC [id number] Common 00:00:00 00:00:00 [facility] 2020-07-17 2020-07-17 Outpatient STLMLC STLMLC [id number] Common 00:00:00 00:00:00 [facility] 2020-05-15 2020-05-15 [facility] [id number] Common 14:15:00 14:15:[address] [facility] 2020-04-09 2020-04-09 [facility] [id number] Common 08:55:00 08:55:[address] [facility] 2020-04-07 2020-04-07 [facility] [id number] Common 10:34:00 10:34:[address] [facility] 2020-02-13 2020-02-13 [facility] [id number] Common 15:00:00 15:00:[address] [facility] [facility] 2020-02-13 2020-02-13 [facility] [id number] Common 15:00:00 15:00:[address] [facility] 2020-02-08 2020-02-08 [facility] 30 [id number] Common 08:47:00 08:47:[address] [facility] 2019-11-19 2019-11-19 [facility] 28 [id number] Common 13:00:00 13:00:[address] [facility] 2019-11-12 2019-11-12 [facility] 29 [id number] Common 08:28:00 08:28:[address] [facility] 2019-09-11 2019-09-11 [facility] 28 [id number] Common 13:30:00 13:30:00 t [facility] Spiri t [facility] Joint [facility] 2019-08-16 2019-08-16 [facility] 27 [id number] Common 13:15:00 13:15:[address] [facility] 2019-07-31 2019-07-31 [facility] 27 [id number] Common 10:00:00 10:00:00 t Bone Bone and Spiri t and Joint [facility] - [facility] 2019-07-30 2019-07-30 [facility] 28 [id number] Common 14:13:00 14:13:00 t Bone Bone and Spiri t and Joint [facility] - [facility] 2019-07-27 2019-07-27 [facility] [id number] Common 08:51:00 08:51:00 t Bone Bone and Spiri t and Joint [facility] - [facility] [place] [facility] 2019-07-10 2019-07-10 [facility] 27 [id number] Common 10:00:00 10:00:00 t Bone Bone and Spiri t and Joint [facility] - [facility] 2019-07-10 2019-07-10 [facility] 27 [id number] Common 08:30:00 08:30:[address] [facility] 2019-07-09 2019-07-09 [facility] 27 [id number] Common 10:47:00 10:47:[address] [facility] 2019-06-20 2019-06-20 [facility] 27 [id number] Common 13:30:00 13:30:00 t Bone Bone and Spiri t and Joint [facility] - [facility] [place] [facility] 2019-06-20 2019-06-20 [facility] 27 [id number] Common 08:49:00 08:49:[address] [facility] 2019-06-18 2019-06-18 [facility] 27 [id number] Common 08:30:00 08:30:[address] [facility] 2019-05-21 2019-05-21 [facility] [id number] Common 13:55:00 13:55:[address] [facility] 2019-05-18 2019-05-18 [facility] 27 [id number] Common 14:40:00 14:40:[address] [facility] 2019-05-17 2019-05-17 [facility] 25 [id number] Common 14:00:00 14:00:[address] [facility] 2019-02-08 2019-02-08 [facility] 25 [id number] Common 16:40:00 16:40:[address] [facility] 2019-02-06 2019-02-06 [facility] 24 [id number] Common 16:30:00 16:30:[address] [facility] 2019-01-30 2019-01-30 [facility] 25 [id number] Common 11:28:00 11:28:[address] [facility] 2019-01-25 2019-01-25 [facility] 25 [id number] Common 14:30:00 14:30:[address] [facility] 2018-12-07 2018-12-07 [facility] 24 [id number] Common 14:30:00 14:30:[address] [facility] 2018-12-05 2018-12-05 [facility] 24 [id number] Common 15:15:00 15:15:00 t Specialty/U Sp anitra Specialty rology - [facility] 2018-11-08 2018-11-08 [facility] 24 [id number] Common 13:25:00 13:25:[address] [facility] 2018-11-01 2018-11-01 [facility] 23 [id number] Common 13:15:00 13:15:[address] [facility] 2018-10-27 2018-10-27 [facility] 23 [id number] Common 12:16:00 12:16:[address] [facility] 2018-10-26 2018-10-26 [facility] 23 [id number] Common 15:10:00 15:10:00 t Specialty/U Sp anitra Specialty rology - [facility] 2018-10-26 2018-10-26 [facility] 23 [id number] Common 13:45:00 13:45:00 t Specialty/U Sp anitra Specialty rology - [facility] 2018-10-09 2018-10-09 [facility] 23 [id number] Common 10:45:00 10:45:[address] [facility] 2018-09-13 2018-09-13 Outpatient Federico Hoang 23 [id number] Common 09:40:00 09:40:[address] [employer] [address] [facility] 2018-09-11 2018-09-11 Outpatient Federico Hoang 22 [id number] Common 14:30:00 14:30:[address] [employer] [address] [facility] Results Test Description Test Time Test Comments Results Result Comments Source BASIC METABOLIC PANEL (NA, K, CL, CO2, GLUCOSE, BUN, 2022-06 11:51:11 CREATININE, CA) Test Item Value Reference Range Interpretation Comme nts NA (test code = 1069274308) 133 mmol/L 135-145 L K (test code = 5417731387) 3.7 mmol/L 3.5-5 CL (test code = 2157119062) 102 mmol/L 98-108 CO2 TOTAL (test code = 9805648235) 24 mmol/L 23-31 AGAP (test code = 3381625527) 2-16 BUN (test code = 5242195494) 3 mg/dL 7-23 L GLUCOSE (test code = 4752264312) 101 mg/dL 70-110 CREATININE (test code = 0.85 mg/dL 0.5-1.04 2017211624) CALCIUM (test code = 1652897834) 8.7 mg/dL 8.6-10.6 eGFR (test code = 7740519870) mL/min/1.73m2 COLTON (test code = COLTON) Association [...] tests). Lab Interpretation (test code = Abnormal 21534-4) [facility][id number][facility] (ALB,T.PRO,BILI T,BU/BC,ALT,AST,ALK PHOS)2022-06-21 11:50:31 Test Item Value Reference Range Interpretation Comments TOTAL BILI (test code = 6316376329) 0.2 mg/dL 0.1-1.1 BILI UNCON (test code = 9846065528) 0.1 mg/dL 0.1-1.1 BILI CONJ (test code = 9366891562) 0.0 mg/dL 0-0.3 T PROTEIN (test code = 4149248429) 6.0 g/dL 6.3-8.2 L ALBUMIN (test code = 9547153838) 3.5 g/dL 3.5-5 ALK PHOS (test code = 5622096896) 583 U/L 34-122 H ALTv (test code = 1742-6) 139 U/L 5-35 H AST(SGOT) (test code = 6307331239) 55 U/L 13-40 H Lab Interpretation (test code = Abnormal 26689-2) [facility] (NA, K, CL, CO2, GLUCOSE, BUN, CREATININE, CA)2022-06-20 10:31:12 Test Item Value Reference Range Interpretation Comments NA (test code = 135 mmol/L 135-145 5515955801) K (test code = 2.9 mmol/L 3.5-5 LL 5993793960) CL (test code = 107 mmol/L 98-108 6378488112) CO2 TOTAL (test code = 22 mmol/L 23-31 L 3385618026) AGAP (test code = 2-16 7400898515) BUN (test code = 7-23 L 5889128057) GLUCOSE (test code = 103 mg/dL 70-110 1692248589) CREATININE (test code = 0.73 mg/dL 0.5-1.04 4590518442) CALCIUM (test code = 8.4 mg/dL 8.6-10.6 L 8702230794) eGFR (test code = mL/min/1.73m2 6259133551) COLTON (test code = COLTON) Association of [...] tests). Lab Interpretation Abnormal (test code = 07266-5) [facility] WITH [id number] 09:21:48 Test Item Value Reference Range Interpretation [...] RDW-SD (test code = 40.5 fL 39-49.9 44147-5) RDW-CV (test code = 12.6 % 12-15.5 788-0) PLT (test code = See_Comment H [Automated 777-3) message] The sy stem which generated this result transmitted reference range : 166 - 358 10*3/ ?L. The reference r susana was not used to interpret this result as normal/abnormal . MPV (test code = 9.0 fL 9.5-12.9 L 52137-8) NRBC/100 WBC (test See_Comment [Automat ed code = 1715505652) message] The system which generated this result transmitted reference range : 0.0 - 10.0 /100 WBCs. The refer ence range was not u sed to interpret th is result as normal/abnormal . NRBC x10^3 (test code See_Comment [Auto mated = 3657205184) message] The s ystem which generated this result transmitted reference range : 10*3/?L. The reference range was not used to interpret this result as normal/abnormal . GRAN MAT (NEUT) % 67.8 % (test code = 770-8) IMM GRAN % (test code 1.20 % = 0103134268) LYMPH % (test code = 17.9 % 736-9) MONO % (test code = 11.7 % 5905-5) EOS % (test code = 1.2 % 713-8) BASO % (test code = 0.2 % 706-2) GRAN MAT x10^3(ANC) 4.02 10*3/uL 1.88-7.09 (test code = 4336813702) IMM GRAN x10^3 (test 0.07 10*3/uL 0-0.06 H code = 0859403263) LYMPH x10^3 (test code 1.06 10*3/uL 1.32-3.29 L = 731-0) MONO x10^3 (test code 0.69 10*3/uL 0.33-0.92 = 742-7) EOS x10^3 (test code = 0.07 10*3/uL 0.03-0.39 711-2) BASO x10^3 (test code 0.01-0.07 = 704-7) Lab Interpretation Abnormal (test code = 25127-4) [facility]AM[facility], [id number] 21:07:40 Test Item Value Reference Range Interpretation [...] and vomiting.Perfor med By: [facility] [address] [place], [place] [address]Q aboratory Director: Joe Martinez MD, PhD [facility] ([id number]) (ALB,T.PRO,BILI T,BU/BC,ALT,AST,ALK PHOS)2022-06-18 11:44:08 Test Item Value Reference Range Interpretation Comments TOTAL BILI (test code = 6977036904) 0.4 mg/dL 0.1-1.1 BILI UNCON (test code = 4487317197) 0.1 mg/dL 0.1-1.1 BILI CONJ (test code = 2518403131) 0.0 mg/dL 0-0.3 T PROTEIN (test code = 2949256696) 6.0 g/dL 6.3-8.2 L ALBUMIN (test code = 6490532431) 3.4 g/dL 3.5-5 L ALK PHOS (test code = 6844697696) 608 U/L 34-122 H ALTv (test code = 1742-6) 373 U/L 5-35 H AST(SGOT) (test code = 4001047444) 357 U/L 13-40 H Lab Interpretation (test code = Abnormal 26870-2) [facility] [id number] 20:52:12 Test Item Value Reference Range Interpretation Comments HBsAB (test code = Indeterminate 7663647087) HBsAb mIU/mL Semi-Quantitative (test code = 4718056005) COLTON (test code = Unable to determine if COLTON) antibody to Hepatitis B Surface Antigen is present at levels consistent with immunity. ?Patient's immune status should be assessed with other clinical information and/or retesting in 4-6 weeks as clinically indicated. ?If any questions, please contact Clinical Chemistry Director platform operations director at .Unable to determine if antibody to Hepatitis B Surface Antigen is present at levels consistent with immunity. ?Patient's immune status should be assessed with other clinical information and/or retesting in 4-6 weeks as clinically indicated. ?If any questions, please contact Clinical Chemistry Director platform operations director at .Unable to determine if antibody to Hepatitis B Surface Antigen is present at levels consistent with immunity. ?Patient's immune status should be assessed with other clinical information and/or retesting in 4-6 weeks as clinically indicated. ?If any questions, please contact Clinical Chemistry Director platform operations director at .Interpretati on: ?Hepatitis B Surface Antibody ? Negative - Patient is considered to be not immune to infection with HBV. ? ? Positive - Anti-HBs detected at greater than or equal to 12 mIU/mL. ?Patient is considered to be immune to infection with HBV. ? [facility] ANTIBODY (IGM & IGG)2022-06-17 19:04:09 Test Item Value Reference Range Interpretation Comments HBC (test code = 8639938424) Negative HBC Semi-Quantitative (test code = 5046502672) [facility] Renaissance[facility]CV [id number] 19:04:09 Test Item Value Reference Range Interpretation Comments HCV Ab (test code = 74812-6) Negative HCV Semi-Quantitative (test code = 58967-8) [facility] SURFACE [id number] 18:45:46 Test Item Value Reference Range Interpretation Comments HBsAg Semi-Quantitative (test code = Negative Negative 5195-3) [facility] RenaissancePROCALCITONIN2022-09-15 16:01:08 Test Item Value Reference Interpretation Comments Range Procalcitonin (test 0.31 ng/mL See_Comment H [Automa carlton code = 5125298320) message] The system which generated this result [...] lung abscess/empyema. For further information please refer to:[email or web address] Lab Interpretation Abnormal (test code = 85652-7) [facility] RenaissanceCOMP. METABOLIC PANEL (26355)2022-06-17 13:10:04 Test Item Value Reference Range Interpretation Comments NA (test code = 141 mmol/L 135-145 5326403622) K (test code = 3.5 mmol/L 3.5-5 6731954317) CL (test code = 111 mmol/L 98-108 H 5913304330) CO2 TOTAL (test code = 24 mmol/L 23-31 9686028730) AGAP (test code = 2-16 0207552761) BUN (test code = 8 mg/dL 7-23 8005869052) GLUCOSE (test code = 97 mg/dL 70-110 8893066728) CREATININE (test code = 0.89 mg/dL 0.5-1.04 9350325608) TOTAL BILI (test code = 1.1 mg/dL 0.1-1.2 1983013849) CALCIUM (test code = 8.2 mg/dL 8.6-10.6 L 7292982901) T PROTEIN (test code = 5.8 g/dL 6.3-8.2 L 6641193475) ALBUMIN (test code = 3.2 g/dL 3.5-5 L 5520420473) ALK PHOS (test code = 766 U/L 34-122 H 7428322004) ALTv (test code = 634 U/L 5-35 H 1742-6) AST(SGOT) (test code = 1987 U/L 13-40 H 9848476556) eGFR (test code = mL/min/1.73m2 0681411727) COLTON (test code = COLTON) Association of [...] tests). Lab Interpretation Abnormal (test code = 46819-2) [facility]YRO[facility] STIM[facility]ATING [id number] 12:33:26 Test Item Value Reference Range Interpretation Comments TSH (test code = See_Comment [Automated message] 0646316661) The system [employer] generated this result transmitted ref erence range: 0.45 - 4 .70 mIU/L. The refe rence range was not u sed to interpret this result as normal/abnor mal. Lab Interpretation (test Normal code = 38458-0) [facility] RenaissanceTROPONIN [id number] 12:15:04 Test Item Value Reference Interpretation Comments Range TROPONIN I (test 0.006 ng/mL See_Comment [Automated code = 0840523506) message] The system which generated this result [...] biotin. Lab Interpretation Normal (test code = 57515-8) [facility] RenaissanceN-TERMINAL [id number] 12:11:41 Test Item Value Reference Range Interpretation Comments NT-proBNP (test code 176 pg/mL See_Comment H [Autom ated = 1563418037) message] The system which generated this result transmitted reference range : <=125. The reference range was not used to interpret this result as normal/abnormal . COLTON (test code = COLTON) Biotin has been reported to cause a negative bias, interpret results relative to patient's use of biotin. Lab Interpretation Abnormal (test code = 17744-0) [facility] RenaissanceLIPID PANEL (66489)(TOTAL CHOLESTEROL, TRIGLYCERIDES, HDL)2022-06-17 12:03:42 Test Item Value Reference Range Interpretation Comments CHOL (test code = 152 mg/dL 120-200 8369176890) HDL (test code = 40 mg/dL See_Comment L [Automated message] 7348365022) The system [employer] generated this result transmit carlton reference range : >=50. The refer ence range was not u sed to interpret th is result as normal/abnormal . HDLC RATIO (test code = See_Comment [Au tomated message] 5312082528) The system [employer] generated this result transmit carlton reference range : <=4.5. The refe rence range was not u sed to interpret th is result as normal/abnormal . TRIG (test code = 102 mg/dL 30-170 5719246974) LDL CHOL (test code = 92 mg/dL See_Comment [Auto mated message] 32772-3) The system [employer] generated this result transmit carlton reference range : <=160. The refe rence range was not u sed to interpret th is result as normal/abnormal . VLDL (test code = 20 mg/dL 5-60 1744249315) Lab Interpretation (test Abnormal code = 06109-8) [facility]MAGNESIUM2022-09-15 12:03:42 Test Item Value Reference Range Interpretation Comments MAGNESIUM (test code = 5559230282) 2.0 mg/dL 1.7-2.4 Lab Interpretation (test code = Normal 75338-7) [facility]PHOSPHORUS2022-09-15 12:03:21 Test Item Value Reference Range Interpretation Comments PHOSPHORUS (test code = 2125387812) 3.7 mg/dL 2.5-5 Lab Interpretation (test code = Normal 47506-6) [facility] RenaissanceProthrombin Time / [id number] 10:10:50 Test Item Value Reference Range Interpretation Comments PROTIME PATIENT (test See_Comment [Auto mated message] code = 5964-2) The system [employer] generated this result transmitted ref erence range: 12.0 - 1 4.7 Seconds. The re ference range was not u sed to interpret this result as normal/abnor mal. INR (test code = 6301-6) Nor mal INR <1.1; Warfarin Therap eutic range 2.0 to 3. 0 or 2.5 to 3.5, dep ending upon the indica tions. Lab Interpretation (test Normal code = 02242-6) [facility] WITH [id number] 09:47:03 Test Item Value Reference Range Interpretation Comments WBC (test code = See_Comment [Automated 7490-2) message] The sy stem which generated this [...] RDW-SD (test code = 43.2 fL 39-49.9 14381-1) RDW-CV (test code = 12.6 % 12-15.5 788-0) PLT (test code = See_Comment [Automated 777-3) message] The sy stem which generated this result transmitted reference range : 166 - 358 10*3/ ?L. The reference r susana was not used to interpret this result as normal/abnormal . MPV (test code = 9.0 fL 9.5-12.9 L 60385-8) NRBC/100 WBC (test See_Comment [Automat ed code = 3826287596) message] The system which generated this result transmitted reference range : 0.0 - 10.0 /100 WBCs. The refer ence range was not u sed to interpret th is result as normal/abnormal . NRBC x10^3 (test code See_Comment [Auto mated = 7200226842) message] The s ystem which generated this result transmitted reference range : 10*3/?L. The reference range was not used to interpret this result as normal/abnormal . GRAN MAT (NEUT) % 70.7 % (test code = 770-8) IMM GRAN % (test code 0.50 % = 9490695397) LYMPH % (test code = 15.3 % 736-9) MONO % (test code = 12.0 % 5905-5) EOS % (test code = 1.3 % 713-8) BASO % (test code = 0.2 % 706-2) GRAN MAT x10^3(ANC) 5.85 10*3/uL 1.88-7.09 (test code = 0345831244) IMM GRAN x10^3 (test 0.04 10*3/uL 0-0.06 code = 5538999643) LYMPH x10^3 (test code 1.27 10*3/uL 1.32-3.29 L = 731-0) MONO x10^3 (test code 0.99 10*3/uL 0.33-0.92 H = 742-7) EOS x10^3 (test code = 0.11 10*3/uL 0.03-0.39 711-2) BASO x10^3 (test code 0.01-0.07 = 704-7) Lab Interpretation Abnormal (test code = 44655-8) [facility] RenaissanceGLYCOSYLATED HEMOGLOBIN (A1C)2022-06-17 06:45:49 Test Item Value Reference Range Interpretation Comments HGB A1C (test code = 5.4 % 4-5.7 4548-4) COLTON (test code = COLTON) Reference RangesNormal: <5.7%Prediabetes: 5.7 - 6.4%Diabetes: > 6.5% Lab Interpretation (test Normal code = 49727-9) [facility] RenaissanceTROPONIN [id number] 00:41:17 Test Item Value Reference Interpretation Comments Range TROPONIN I (test 0.004 ng/mL See_Comment [Automated code = 0740113607) message] The system which generated this result [...] biotin. Lab Interpretation Normal (test code = 93413-3) [facility] WITH [id number] 00:35:10 Test Item Value Reference Range Interpretation Comments WBC (test code = See_Comment H [Automated 4341-2) message] The sy stem which generated this result transmitted reference range : 4.30 - 11.10 10*3/?L. The reference range was not used to interpret this result as normal/abnormal . RBC (test code = See_Comment [Automated 449-8) message] The sy stem which generated this [...] RDW-SD (test code = 42.3 fL 39-49.9 50015-5) RDW-CV (test code = 12.6 % 12-15.5 788-0) PLT (test code = See_Comment H [Automated 447-3) message] The sy stem which generated this result transmitted reference range : 166 - 358 10*3/ ?L. The reference r susana was not used to interpret this result as normal/abnormal . MPV (test code = 8.7 fL 9.5-12.9 L 43789-3) NRBC/100 WBC (test See_Comment [Automat ed code = 5195010530) message] The system which generated this result transmitted reference range : 0.0 - 10.0 /100 WBCs. The refer ence range was not u sed to interpret th is result as normal/abnormal . NRBC x10^3 (test code See_Comment [Auto mated = 6652709387) message] The s ystem which generated this result transmitted reference range : 10*3/?L. The reference range was not used to interpret this result as normal/abnormal . GRAN MAT (NEUT) % 73.1 % (test code = 770-8) IMM GRAN % (test code 0.40 % = 6155414514) LYMPH % (test code = 13.3 % 736-9) MONO % (test code = 11.8 % 5905-5) EOS % (test code = 1.1 % 713-8) BASO % (test code = 0.3 % 706-2) GRAN MAT x10^3(ANC) 8.51 10*3/uL 1.88-7.09 H (test code = 8757649488) IMM GRAN x10^3 (test 0.05 10*3/uL 0-0.06 code = 5170026015) LYMPH x10^3 (test code 1.55 10*3/uL 1.32-3.29 = 731-0) MONO x10^3 (test code 1.37 10*3/uL 0.33-0.92 H = 742-7) EOS x10^3 (test code = 0.13 10*3/uL 0.03-0.39 711-2) BASO x10^3 (test code 0.03 10*3/uL 0.01-0.07 = 704-7) Lab Interpretation Abnormal (test code = 69990-9) [facility]. METABOLIC PANEL (73349)2022-06-17 00:30:09 Test Item Value Reference Range Interpretation Comments NA (test code = 135 mmol/L 135-145 5950111930) K (test code = 4.4 mmol/L 3.5-5 3948293761) CL (test code = 102 mmol/L 98-108 9605932418) CO2 TOTAL (test code = 22 mmol/L 23-31 L 7637217825) AGAP (test code = 2-16 2086704842) BUN (test code = 9 mg/dL 7-23 4093288037) GLUCOSE (test code = 113 mg/dL 70-110 H 7418749954) CREATININE (test code = 0.89 mg/dL 0.5-1.04 2506859420) TOTAL BILI (test code = 0.7 mg/dL 0.1-1.7 4734238179) CALCIUM (test code = 9.2 mg/dL 8.6-10.6 6678105657) T PROTEIN (test code = 7.4 g/dL 6.3-8.2 9754486006) ALBUMIN (test code = 4.4 g/dL 3.5-5 8817498507) ALK PHOS (test code = 158 U/L 34-122 H 4378973946) ALTv (test code = 20 U/L 5-35 1742-6) AST(SGOT) (test code = 32 U/L 13-40 7987463069) eGFR (test code = mL/min/1.73m2 4717831652) COLTON (test code = COLTON) Association of [...] tests). Lab Interpretation Abnormal (test code = 26842-8) [facility]2022-[facility]-15 00:30:09 Test Item Value Reference Range Interpretation Comments MAGNESIUM (test code = 2670042871) 2.0 mg/dL 1.7-2.4 Lab Interpretation (test code = Normal 16962-9) [facility]2022-09-15 00:29:54 Test Item Value Reference Range Interpretation Comments LIPASE (test code = 5341156931) 102 U/L 0-220 Lab Interpretation (test code = Normal 39400-2) [facility] RenaissancePOCT [id number] 22:24:44 Test Item Value Reference Range Interpretation Comments POCT Creatinine (test code = 0.7 mg/dL 0.5-1.4 5559388027) Lab Interpretation (test code = Normal 62556-3) [facility]2019-10-01 06:29:00 Test Item Value Reference Range Interpretation Comments LIPASE (BEAKER) (test code = 749) 48 U/L 8-78 COMPREHENSIVE METABOLIC [id number] 06:29:00 Test Item Value Reference Range Interpretation [...] PATIEN TS. CBC W/PLT COUNT & AUTO [id number] 05:57:00 Test Item Value Reference Range Interpretation [...] 413) RAD, ABDOMEN SERIES W/ UPRIGHT PA [id number] 13:35:00Reason for exam:- >Postoperative distentionShould this be [...] [facility] Verified Date/Time: 07/02/2019 13:35:05 Reading Location:[facility] Radiology Reading Room [id number] 06:54:00 Test Item Value Reference Range Interpretation Comments LIPASE (BEAKER) (test code = 749) 56 U/L 8-78 COMPREHENSIVE METABOLIC [id number] 06:54:00 Test Item Value Reference Range Interpretation [...] PATIEN TS. CBC W/PLT COUNT & AUTO [id number] 06:31:00 Test Item Value Reference Range Interpretation [...] = 2801) CBC W/PLT COUNT & AUTO [id number] 06:59:00 Test Item Value Reference Range Interpretation [...] 0-1 PERCENT (BEAKER) (test code = 2801) [id number] 06:51:00 Test Item Value Reference Range Interpretation Comments LIPASE (BEAKER) (test code = 749) 53 U/L 8-78 COMPREHENSIVE METABOLIC [id number] 06:51:00 Test Item Value Reference Range Interpretation [...] PATIEN TS. CBC W/PLT COUNT & AUTO [id number] 06:20:00 Test Item Value Reference Range Interpretation [...] GRANULOCYTES-RELATIVE PERCENT (BEAKER) (test code = 2801) [id number] 05:44:00 Test Item Value Reference Range Interpretation Comments LIPASE (BEAKER) (test code = 749) 52 U/L 8-78 COMPREHENSIVE METABOLIC [id number] 05:44:00 Test Item Value Reference Range Interpretation [...] S NOT APPLICABLE FOR DIALYSIS PATIEN TS. [id number] 05:21:00 Test Item Value Reference Range Interpretation Comments LIPASE (BEAKER) (test code = 749) 72 U/L 8-78 COMPREHENSIVE METABOLIC [id number] 05:21:00 Test Item Value Reference Range Interpretation [...] PATIEN TS. CBC W/PLT COUNT & AUTO [id number] 05:14:00 Test Item Value Reference Range Interpretation [...] 0-1 PERCENT (BEAKER) (test code = 2801) [id number] 05:17:00 Test Item Value Reference Range Interpretation Comments LIPASE (BEAKER) (test code = 749) 55 U/L 8-78 COMPREHENSIVE METABOLIC [id number] 05:17:00 Test Item Value Reference Range Interpretation [...] PATIEN TS. CBC W/PLT COUNT & AUTO [id number] 04:59:00 Test Item Value Reference Range Interpretation [...] WBC 0-0 (BEAKER) (test code = 413) [id number] 07:03:00 Test Item Value Reference Range Interpretation Comments LIPASE (BEAKER) (test code = 749) 40 U/L 8-78 COMPREHENSIVE METABOLIC [id number] 07:03:00 Test Item Value Reference Range Interpretation [...] PATIEN TS. CBC W/PLT COUNT & AUTO [id number] 06:03:00 Test Item Value Reference Range Interpretation [...] 0-1 PERCENT (BEAKER) (test code = 2801) [id number] 07:19:00 Test Item Value Reference Range Interpretation Comments LIPASE (BEAKER) (test code = 749) 37 U/L 8-78 COMPREHENSIVE METABOLIC [id number] 07:19:00 Test Item Value Reference Range Interpretation [...] PATIEN TS. CBC W/PLT COUNT & AUTO [id number] 05:30:00 Test Item Value Reference Range Interpretation [...] (BEAKER) (test code = 2801) BASIC METABOLIC [id number] 20:44:00 Test Item Value Reference Range Interpretation [...] 0-0 (BEAKER) (test code = 413) PROTHROMBIN [id number] 15:49:00 Test Item Value Reference Range Interpretation [...] mechanical heart valves.RAD, CHEST, 1 VIEW, NON [id number] 15:13:00Reason for exam:->preopShould this be performed at the bedside?->YesFINAL REPORT INDICATION: preop COMPARISON: None TECHNIQUE: Single frontal view of the chest. FINDINGS: Lungs and pleura: Clear lungs. No effusion.Heart and mediastinum: Normal heart size. Unremarkable mediastinal contours.Osseous structures: No acute abnormality.Other: None. IMPRESSION: No acute intrathoracic abnormality. Signed: Charmaine Soliz MDReport Verified Date/Time: 06/25/2019 15:13:30 Reading Location: [facility] Radiology Reading Room [id number] 11:37:00 Test Item Value Reference Range Interpretation Comments LIPASE (BEAKER) (test code = 749) 168 U/L 8-78 H COMPREHENSIVE METABOLIC [id number] 11:37:00 Test Item Value Reference Range Interpretation [...] PATIEN TS. CBC W/PLT COUNT & AUTO [id number] 11:16:00 Test Item Value Reference Range Interpretation [...] % 0-1 PERCENT (BEAKER) (test code = 1786)"
[2023-04-23] MEDS ORDERED: BENZTROPINE 2 MG/2 ML VIAL ONE ×2 (18:19→19:28)
--- NOTE | 2023-04-23 18:55 | RAD REPORT ---
EXAM DESCRIPTION: CT - Head Brain Wo Cont - 04/23/2023 6:30 pm CLINICAL HISTORY: Alteration of awareness/confusion COMPARISON: April 08, 2023 TECHNIQUE: Computed axial tomography of the head was obtained. IV contrast was not requested. All CT scans are performed using dose optimization technique as appropriate and may include automated exposure control or mA/KV adjustment according to patient size. FINDINGS: An intracranial bleed is not seen The ventricles are normal in caliber No extra-axial fluid collection is noted. No significant hypodensity within the brain. Fluid within the sinuses/ mastoids is not seen. IMPRESSION: No acute intracranial abnormality is seen If patient's symptoms persist MRI of the brain would be recommended
[2023-04-23 19:09] LABS: Absolute Lymphocytes (CBC) 1.1 K/uL (0.7-4.9); Hematocrit 33.6 % (36.0-45.0); Lymphocytes % 16.8 % (15.3-44.8); MCV 90.6 fL (80-100); MPV 6.8 fL (7.6-11.3); RBC Red Blood Cell Count 3.71 M/uL (3.86-4.86)
[2023-04-23 19:15] LABS: ALT/SGPT 20 U/L (13-56); AST/SGOT 10 U/L (15-37); Albumin 3.1 g/dL (3.4-5.0); Alkaline Phosphatase 122 U/L (45-117); BUN Blood Urea Nitrogen 5 mg/dL (7-18); Bicarbonate 22 mEq/L (21-32); Bilirubin Direct 0.1 mg/dL (0-0.2); Bilirubin Indirect, Calculated 0.2 mg/dL (0.2-0.8); Bilirubin Total 0.3 mg/dL (0.2-1.0); Glomerular Filtration Rate 80 ml/min (=/>90); Glucose Level 97 mg/dL (74-106); Potassium 2.7 mEq/L (3.5-5.1); Protein, Total 5.8 g/dL (6.4-8.2); Sodium Level 136 mEq/L (136-145)
--- NOTE | 2023-04-23 20:24 | EDPHYS ---
Physician Documentation [facility] Name: Janice Bosch Age: 57 yrs Sex: Female : 1965 Arrival Date: 04/23/2023 Time: 17:15 Bed 5 Private MD: ED Physician Zacarias Brown HPI: 04/23 18:06 This 57 yrs old Female presents to ER via EMS with complaints of Altered Mental Status. jmm 18:06 Onset: The symptoms/episode began/occurred yesterday. Is a 57-year-old female with jmm history of bipolar, bowel obstruction, fibromyalgia, hypertension the presents emerged department with complaints of difficulty speaking beginning yesterday evening. Patient was recently admitted for altered mental status. Patient was discharged this past Tuesday and psychiatry altered medications. noticed patient having difficulty speaking Tuesday.. Historical: - Allergies: 17:28 Reglan; ss 17:28 Requip; ss - Home Meds: 17:28 clonazepam 0.5 mg Oral tab [Active]; gabapentin 600 mg Oral tab 2 tabs [Active]; ss propranolol 10 mg Oral tab twice a day [Active]; Protonix 40 mg Oral TbEC once daily [Active]; Lorazepam 0.5 mg BID PRN [Active]; zolpidem 12.5 mg Oral Tablet, ER Multiphase once [Active]; Hydroxyzine 50 mg [Active]; venlafaxine 225 mg oral Tablet, Extended Release 24 hr every morning [Active]; - PMHx: 17:28 Bipolar disorder; bowel obstruction; Fibromyalgia; Hypertension; ibs; Migraines; ss - PSHx: 17:28 section; Appendectomy; Cholecystectomy; Gastric Bypass; hysterectomy; ss ROS: 18:06 Constitutional: Negative for fever, chills, and weight loss, Cardiovascular: Negative jmm for chest pain, palpitations, and edema, Respiratory: Negative for shortness of breath, cough, wheezing, and pleuritic chest pain. 18:06 Neuro: Positive for speech changes. 18:06 All other systems are negative. Exam: 18:06 Constitutional: This is a well developed, well nourished patient who is awake, alert, jmm and in no acute distress. Head/Face: atraumatic. Eyes: EOMI, no conjunctival erythema appreciated ENT: Moist Mucus Membranes Neck: Trachea midline, Supple Chest/axilla: Normal chest wall appearance and motion. Cardiovascular: Regular rate and rhythm. No edema appreciated Respiratory: Normal respirations, no respiratory distress appreciated Abdomen/GI: Non distended Back: Normal ROM Skin: General appearance color normal 18:06 Psych: Behavior is normal, Mood is normal, Patient is cooperative and pleasant 18:06 Neuro: Orientation: is normal, Mentation: is normal, Memory: is normal, Cranial nerves: Speech is dysarthric. Vital Signs: 17:56 BP 149 / 106; Pulse 91; Resp 19; Temp 97.9(TE); Pulse Ox 100% ; Weight 55.79 kg; Height ss 5 ft. 2 in. ; Pain 3/10; 18:51 BP 142 / 83; Pulse 84; Resp 16 S; Pulse Ox 100% on R/A; aa5 20:00 BP 161 / 82; Pulse 83; Resp 16; Pulse Ox 100% on R/A; jb4 21:18 BP 137 / 86; Pulse 86; Resp 16; Pulse Ox 100% on R/A; jb4 22:30 BP 130 / 75; Pulse 81; Resp 16; Pulse Ox 100% on R/A; jb4 17:56 Body Mass Index 22.50 (55.79 kg, 157.48 cm) ss 17:56 Pain Scale: Adult ss MDM: 18:06 Patient medically screened. [facility] 20:00 Transition of care: Care assumed from Pancho AG. ms3 21:31 Differential Diagnosis: CVA, electrolyte abnormality, Dystonic rxn. Data reviewed: ms3 vital signs, nurses notes, lab test result(s), and as a result, I will admit patient. Consideration of Admission/Observation Patient was admitted/placed on observation. Management of patient was discussed with the following: Hospitalist: Ernst Flaherty NP. I considered the following discharge prescriptions or medication management in the emergency department Medications were administered in the Emergency Department. See MAR. Historians other than the Patient: Spouse/Significant Other: Patient's . Counseling: I had a detailed discussion with the patient and/or guardian regarding: the historical points, exam findings, and any diagnostic results supporting the discharge/admit diagnosis, lab results, radiology results, the need for further work-up and treatment in the hospital, to return to the emergency department if symptoms worsen or persist or if there are any questions or concerns that arise at home. 04/23 18:06 Order name: Acetaminophen; Complete Time: 19:20 [facility] 04/23 18:06 Order name: Basic Metabolic Panel; Complete Time: 19:20 [facility] 04/23 18:06 Order name: CBC with Diff; Complete Time: 19:12 [facility] 04/23 18:06 Order name: ETOH Level; Complete Time: 19:20 [facility] 04/23 18:06 Order name: Hepatic Function; Complete Time: 19:20 [facility] 04/23 18:06 Order name: PT-INR; Complete Time: 19:09 [facility] 04/23 18:06 Order name: Ptt, Activated; Complete Time: 19:09 [facility] 04/23 18:06 Order name: Salicylate; Complete Time: 19:32 [facility] 04/23 18:06 Order name: Urine Drug Screen; Complete Time: 23:01 [facility] 04/23 22:04 Order name: Magnesium; Complete Time: 23:01 [facility] 04/23 18:06 Order name: CT Head Brain wo Cont; Complete Time: 19:00 [facility] 04/23 18:06 Order name: EKG; Complete Time: 18:07 [facility] 04/23 18:06 Order name: EKG - Nurse/Tech; Complete Time: 18:52 [facility] 04/23 18:06 Order name: IV Saline Lock; Complete Time: 18:52 [facility] 04/23 18:06 Order name: Labs collected and sent; Complete Time: 18:52 jm Administered Medications: 18:50 Drug: Benztropine IVP 1 mg Route: IVP; Site: right antecubital; aa5 19:23 Drug: Benztropine IVP 1 mg Route: IVP; Site: right antecubital; jb4 19:41 Drug: Potassium Chloride IV 20 mEq {Note: Running with 250ml on NS over 2 hours.} jb4 Route: IV; Rate: calculated rate; Site: right antecubital; Disposition: 21:47 Co-signature as Attending Physician, Zacarias Brown DO. ms3 Disposition Summary: 04/23/23 20:23 Hospitalization Ordered Hospitalization Status: Observation ms3 Provider: Kendall Hoffman ms3 Location: Telemetry/MedSurg (observation) ms3 Condition: Stable ms3 Problem: new ms3 Symptoms: are unchanged ms3 Bed/Room Type: Standard ms3 Room Assignment: 222(04/23/23 22:26) cg Diagnosis - Dysarthria ms3 - Altered Mental Status ms3 Forms: - Medication Reconciliation Form ms3 - SBAR form ms3 Signatures: Dispatcher [employer] Pancho Huertas PA PA jmm Calderon, Audri, RN RN aa5 Seema Coelho RN RN ss Sary Guy RN RN cg Bryson, James, RN RN jb4 Zacarias Brown DO DO ms3 Corrections: (The following items were deleted from the chart) 20:23 ms3 cg
--- NOTE | 2023-04-23 20:24 | ER ---
Nurse's Notes [facility] Name: Janice Bosch Age: 57 yrs Sex: Female : 1965 Arrival Date: 04/23/2023 Time: 17:15 Bed 5 Private MD: Diagnosis: Dysarthria;Altered Mental Status Presentation: 04/23 17:25 Chief complaint: EMS states: AMS that has been ongoing since Tuesday according to ss . PT recently had some of her psych medications changed and has a lot of medications that the is unaware of at home. Coronavirus screen: Client denies travel out of the [place] in the last 14 days. Ebola Screen: Patient denies exposure to infectious person. Patient denies travel to an Ebola-affected area in the 21 days before illness onset. Initial Sepsis Screen: Does the patient meet any 2 criteria? No. Patient's initial sepsis screen is negative. Does the patient have a suspected source of infection? No. Patient's initial sepsis screen is negative. Risk Assessment: Do you want to hurt yourself or someone else? Patient reports no desire to harm self or others. Onset of symptoms is unknown. 17:25 Method Of Arrival: EMS: [facility] 17:25 Acuity: BONITA 2 ss Historical: - Allergies: 17:28 Reglan; ss 17:28 Requip; ss - Home Meds: 17:28 clonazepam 0.5 mg Oral tab [Active]; gabapentin 600 mg Oral tab 2 tabs [Active]; ss propranolol 10 mg Oral tab twice a day [Active]; Protonix 40 mg Oral TbEC once daily [Active]; Lorazepam 0.5 mg BID PRN [Active]; zolpidem 12.5 mg Oral Tablet, ER Multiphase once [Active]; Hydroxyzine 50 mg [Active]; venlafaxine 225 mg oral Tablet, Extended Release 24 hr every morning [Active]; - PMHx: 17:28 Bipolar disorder; bowel obstruction; Fibromyalgia; Hypertension; ibs; Migraines; ss - PSHx: 17:28 section; Appendectomy; Cholecystectomy; Gastric Bypass; hysterectomy; ss Screenin:38 [facility] ED Fall Risk Assessment (Adult) History of falling in the last 3 months, jb4 including since admission No falls in past 3 months (0 pts) Confusion or Disorientation No (0 pts) Score/Fall Risk Level 0 - 2 = Low Risk Oriented to surroundings, Maintained a safe environment. Abuse screen: Denies threats or abuse. Nutritional screening: No deficits noted. Tuberculosis screening: No symptoms or risk factors identified. Assessment: 18:15 General: Appears comfortable, Behavior is calm, cooperative, Reports feeling tired and aa5 sleepy. Pain: Denies pain. 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 Speech slurred at times and difficult to understand, clear at times. . Facial symmetry appears normal. Cardiovascular: Heart tones S1 S2 present Rhythm is regular. Respiratory: Airway is patent Respiratory effort is even, unlabored, Respiratory pattern is regular, symmetrical. GI: Abdomen is flat, non-distended, Bowel sounds present X 4 quads. Abd is soft and non tender X 4 quads. : No signs and/or symptoms were reported regarding the genitourinary system. EENT: No signs and/or symptoms were reported regarding the EENT system. Derm: Skin is pink, warm \T\ dry. Musculoskeletal: Range of motion: intact in all extremities. 18:20 Reassessment: Pt to CT scan via stretcher. . aa5 18:35 Reassessment: Awaiting pt to return from CT scan to draw blood and complete EKG. . aa5 18:50 Reassessment: Pt back from CT scan . aa5 20:19 Reassessment: Pt remains altered. Family agreed for pt to be admitted. jb4 21:18 Reassessment: Patient appears in no apparent distress at this time. No changes from jb4 previously documented assessment. Patient and/or family updated on plan of care and expected duration. Pain level reassessed. 22:30 Reassessment: Patient appears in no apparent distress at this time. No changes from jb4 previously documented assessment. Patient and/or family updated on plan of care and expected duration. Pain level reassessed. 23:22 Reassessment: Patient appears in no apparent distress at this time. No changes from jb4 previously documented assessment. Patient and/or family updated on plan of care and expected duration. Pain level reassessed. Vital Signs: 17:56 BP 149 / 106; Pulse 91; Resp 19; Temp 97.9(TE); Pulse Ox 100% ; Weight 55.79 kg; Height ss 5 ft. 2 in. ; Pain 3/10; 18:51 BP 142 / 83; Pulse 84; Resp 16 S; Pulse Ox 100% on R/A; aa5 20:00 BP 161 / 82; Pulse 83; Resp 16; Pulse Ox 100% on R/A; jb4 21:18 BP 137 / 86; Pulse 86; Resp 16; Pulse Ox 100% on R/A; jb4 22:30 BP 130 / 75; Pulse 81; Resp 16; Pulse Ox 100% on R/A; jb4 17:56 Body Mass Index 22.50 (55.79 kg, 157.48 cm) ss 17:56 Pain Scale: Adult ss ED Course: 17:23 Patient arrived in ED. ss 17:28 Triage completed. ss 17:28 Arm band placed on right wrist. ss 18:00 Pancho Freitas PA is PHCP. [facility] 18:00 Sigrid Strong is Attending Physician. [facility] 18:11 Sarah Ocasio, RN is Primary Nurse. aa5 18:15 Patient has correct armband on for positive identification. Bed in low position. Call aa5 light in reach. Side rails up X2. Client placed on continuous cardiac and pulse oximetry monitoring. NIBP monitoring applied. 18:32 CT Head Brain wo Cont In Process Unspecified. EDMS 18:42 Initial lab(s) drawn, by id, sent to lab. Inserted saline lock: 22 gauge in right aa5 antecubital area, using aseptic technique. Blood collected. 18:45 EKG done, by ED staff, reviewed by Pancho AG. aa5 19:10 Report given to Kathe Rn and Leonid Sung. aa 19:50 Attending Physician role handed off by Sigrid Strong [facility] 19:50 Zacarias Brown DO is Attending Physician. [facility] 20:22 Kendall Hoffman MD is Hospitalizing Provider. ms3 20:38 No provider procedures requiring assistance completed. Patient admitted, IV remains in jb4 place. 20:39 PHCP role handed off by Pancho Freitas PA jb 20:39 Primary Nurse role handed off by Sarah Ocasio, LEONID [facility] 21:18 Josué Collier, RN is Primary Nurse. jb4 Administered Medications: 18:50 Drug: Benztropine IVP 1 mg Route: IVP; Site: right antecubital; aa5 19:23 Drug: Benztropine IVP 1 mg Route: IVP; Site: right antecubital; jb4 19:41 Drug: Potassium Chloride IV 20 mEq {Note: Running with 250ml on NS over 2 hours.} jb4 Route: IV; Rate: calculated rate; Site: right antecubital; Outcome: 20:23 Decision to Hospitalize by Provider. ms3 23:23 Admitted to Med/surg accompanied by nurse, via wheelchair, room 222, with chart, Report jb4 called to LEONID Prince 23:23 Condition: stable 23:23 Discharge instructions given to patient, family, Instructed on the need for admit, Demonstrated understanding of instructions. 23:24 Patient left the ED. jb4 Signatures: Dispatcher [employer] EDMS Pancho Freitas PA PA jmm Calderon, Audri, RN RN aaSeema Rust RN RN ss Bryson, James, RN RN jb4 Paola Castro RN RN ap3 Zacarias Brown DO DO ms3 Corrections: (The following items were deleted from the chart) 17:53 17:25 Chief complaint: EMS states: AMS that has been ongoing all day today. PT recently ss had some of her psych medications changed and has a lot of medications that the is unaware of at home ss 18:57 18:51 BP 142 / 83; Pulse 84bpm; Pulse Ox 100% RA; ap3 aa5 20:40 20:38 Admitted to Med/surg accompanied by nurse, via stretcher, room 209, with chart, jb4 Report called to LEONID Camarena jb4 20:40 20:38 Condition: stable jb4 jb4 20:40 20:38 Discharge instructions given to patient, family, Instructed on the need for jb4 admit, Demonstrated understanding of instructions, jb4 20:40 20:39 Patient left the ED. jb4 jb4
--- NOTE | 2023-04-23 22:14 | P.HP ---
Certification for Inpatient Patient admitted to: Observation With expected LOS: <2 Midnights Patient will require the following post-hospital care: None Practitioner: I am a practitioner with admitting privileges, knowledge of patient current condition, hospital course, and medical plan of care. Services: Services provided to patient in accordance with Admission requirements found in Title 42 Section 412.3 of the Code of Federal Regulations Patient History Date of Service: 04/23/23 Reason for admission: AMS, dysarthria History of Present Illness: 57-year-old female with history of BPD, fibromyalgia, depression, hypertension, migraines, IBS, anxiety, insomnia presents to the emergency department with chief complaint of altered mental status, slurred speech. Her at bedside reports that she saw her psychiatrist on and he believed they reduce the dose of her venlafaxine but he cannot be sure, ever since then she has been more confused and having trouble with her speech, ED note that she was having some lip smacking and thought she may be having a dystonic reaction. She was given 2 rounds of benztropine IV with very minimal improvement in her symptoms. Her labs were significant for potassium of 2.7 hemoglobin 10.[address] head was negative for acute findings of note patient had an MRI on 04/13/2023 of her brain which showed no acute findings. She was admitted on 04/13/2023 for syncope, evaluated and subsequently discharged. She was having some difficulty walking at that time as well. Allergies metoclopramide HCl [From Reglan] Allergy (Mild, Verified 01/05/23 08:48) Hives/Rash ropinirole HCl [From Requip] Allergy (Mild, Verified 01/05/23 08:48) Nausea/Vomiting Home Medications: Ziprasidone [Geodon*] 120 mg PO DAILY 04/25/13 Tizanidine [Zanaflex*] 4 mg PO BEDTIME PRN PRN 07/21/20 Diclofenac Sodium 2 tab PO DAILY 11/17/22 LORazepam [Ativan*] 2 tab PO BID PRN 11/17/22 Venlafaxine HCl [Effexor Xr] 200 mg PO DAILY 11/17/22 Zolpidem Tartrate [Ambien Cr] 1 tab PO BEDTIME 11/17/22 lamoTRIgine [Lamictal] 200 mg PO DAILY 11/17/22 Levothyroxine [Synthroid*] 50 mcg PO [id number] 01/04/23 Pantoprazole [Protonix Tab*] 40 mg PO DAILY 01/04/23 Propranolol HCl 20 mg PO BID 01/04/23 hydrOXYzine HCL [Atarax] 50 mg PO BIDP PRN 01/04/23 Cholecalciferol (Vitamin D3) [Vitamin D3] 1,000 unit PO DAILY 01/05/23 Gabapentin 600 mg PO DIRECTED 04/13/23 Gabapentin 600 mg PO DAILY 04/13/23 Hydrocodone 10/APAP 325 [Olin 10/325*] 1 tab PO Q4HP PRN 04/13/23 Meclizine HCl [Antivert] 25 mg PO Q8HP PRN 04/13/23 Melatonin 10 mg PO BEDTIME PRN PRN #60 tab 04/15/23 - Past Medical/Surgical History Diabetic: No -: Intestinal blockage -: Bipolar disorder, , depression -: Fibromyalgia -: Hypertension -: Migraine headache -: IBS -: Anxiety disorder -: Insomnia -: bulging disc -: 2 csec -: hyst -: appy -: anderson -: gastric bypass -: L fractured wrist w/ plates and screws - Family History Mother -: Heart disease, Cancer - Social History Smoking Status: Never smoker Alcohol use: Yes CD- Drugs: No Caffeine use: Yes Place of Residence: Home Review of Systems 10-point ROS is otherwise unremarkable Neurological: Change in Speech, As per HPI Physical Examination - Physical Exam General: Alert, In no apparent distress, Oriented x3 HEENT: Atraumatic, PERRLA, Mucous membr. moist/pink, EOMI, Sclerae nonicteric Neck: Supple, 2+ carotid pulse no bruit, No LAD, Without JVD or thyroid abnormality Respiratory: Clear to auscultation bilaterally, Normal air movement Cardiovascular: No edema, Regular rate/rhythm, Normal S1 S2 Gastrointestinal: Normal bowel sounds, No tenderness Musculoskeletal: No tenderness Integumentary: No rashes Neurological: Normal strength at 5/5 x4 extr, Normal tone, Normal affect, Abnormal speech (Speech is slurred, noted lipsmacking movements, tangential speech) - Studies Laboratory Data (last 24 hrs) 04/23/23 18:42: PT 11.0, INR 1.00, APTT 24.2 L 04/23/23 18:42: WBC 6.80, Hgb 10.8 L, Hct 33.6 L, Plt Count 403 04/23/23 18:42: Sodium 136, Potassium 2.7 L, BUN 5 L, Creatinine 0.84, Glucose 97, Total Bilirubin 0.3, AST 10 L, ALT 20, Alkaline Phosphatase 122 H Assessment and Plan - Plan Assessment: AMS, dysarthria-concern for dystonic reaction Hypokalemia BPD, fibromyalgia, anxiety/depression Hypertension Plan: AMS, dysarthria-concern for dystonic reaction states medications were adjusted last although pharmacy records show same dose of venlafaxine as previous. He reports her dose was decreased but cannot be sure. We will hold venlafaxine, ziprasidone. Patient was given benztropine 1 mg IV x2 in ED with minimal relief in symptoms still with tangential speech, dysarthria. Neurology consult. If patient abby in the hospital on Tuesday/Tuesday may benefit with MRI, psychiatric evaluation. Hypokalemia Replaced in ED, protocol in place, check mag level. BPD, fibromyalgia, anxiety/depression Evaluate home medications, hold medications that may contribute to dystonic reaction, continue other home medications. Hypertension Continue home medications. DVT PPX: Lovenox Code status: Full Discharge Plan: Home Plan to discharge in: 24 Hours - Advance Directives Does patient have a Living Will: No Does patient have a Durable POA for Healthcare: No - Code Status/Comfort Care Code Status Assessed: Yes (Full code) Critical Care: No Time Spent Managing Pts Care (In Minutes): 55
[2023-04-23 22:27] LABS: Barbiturates NEGATIVE (NEGATIVE); Benzodiazepines NEGATIVE (NEGATIVE); Cocaine NEGATIVE (NEGATIVE); METHAMPHETAM NEGATIVE (NEGATIVE); Methadone NEGATIVE (NEGATIVE); Opiates NEGATIVE (NEGATIVE); Phencyclidine NEGATIVE (NEGATIVE); THC Cannibis NEGATIVE (NEGATIVE)
[2023-04-23 23:48] VITALS: BMI 22.4
[2023-04-24] MEDS ORDERED: ZOLPIDEM TARTRATE 10 MG TABLET PO ONE (01:58)
[2023-04-24] MEDS: HYDROCODONE/APAP 10/325 TAB PO PRN ×3 (05:04→19:46)
[2023-04-24] MEDS ORDERED: POTASSIUM CL SA 10 MEQ TAB PO ONE (06:38)
[2023-04-24 08:20] LABS: Absolute Lymphocytes (CBC) 1.4 K/uL (0.7-4.9); Hematocrit 31.8 % (36.0-45.0); Lymphocytes % 28.1 % (15.3-44.8); MCV 90.2 fL (80-100); MPV 6.4 fL (7.6-11.3); RBC Red Blood Cell Count 3.53 M/uL (3.86-4.86)
[2023-04-24] MEDS ORDERED: MAGNESIUM SULFATE 1 gm IVPB 1 GM/100 ML BAG IV ONE (09:00)
[2023-04-24] MEDS: ENOXAPARIN 40 MG/0.4 ML SQ SCH (09:00)
[2023-04-24 09:01] LABS: Magnesium 1.9 mg/dL (1.6-2.4); Potassium 2.8 mEq/L (3.5-5.1); Thyroid Stimulating Hormone 1.36 uIU/mL (0.358-3.740)
[2023-04-24] MEDS: ACETAMINOPHEN 500 MG TAB PO PRN (09:04)
[2023-04-24] MEDS: ONDANSETRON 4 MG/2 ML VIAL IV PRN ×2 (09:15→14:57)
--- NOTE | 2023-04-24 16:17 | P.PN ---
Subjective Date of Service: 04/24/23 Chief Complaint: AMS, dysarthria She appears less confused this morning. She states that her Psychiatrist referred her to the hospital due to concern for polypharmacy. Her daughter stated that she was having confusion and hallucinations, but this is largely improved today. Review of Systems 10-point ROS is otherwise unremarkable Neurological: Other (anxiety/tremors) Physical Examination - Vital Signs Temperature: 9.8 F Blood Pressure: 147/78 Pulse: 89 Respirations: 14 Pulse Ox (%): 99 - Physical Exam General: Alert, In no apparent distress, Oriented x3 HEENT: Atraumatic, Mucous membr. moist/pink, Sclerae nonicteric Neck: JVD not distended Respiratory: Clear to auscultation bilaterally, Normal air movement Cardiovascular: No edema, Regular rate/rhythm, Normal S1 S2, No gallops, No rubs, No murmurs Gastrointestinal: Normal bowel sounds, Soft and benign, Non-distended, No tenderness, No rebound, No guarding Musculoskeletal: No clubbing Integumentary: No rashes Neurological: Normal speech, Normal affect, Other (bilateral upper extremity tremors, with upper extremity rigidity) - Studies Laboratory Data (last 24 hrs) 04/23/23 18:42: Magnesium 1.8 04/23/23 18:42: PT 11.0, INR 1.00, APTT 24.2 L 04/23/23 18:42: WBC 6.80, Hgb 10.8 L, Hct 33.6 L, Plt Count 403 04/23/23 18:42: Sodium 136, Potassium 2.7 L, BUN 5 L, Creatinine 0.84, Glucose 97, Total Bilirubin 0.3, AST 10 L, ALT 20, Alkaline Phosphatase 122 H Assessment And Plan - Plan # Acute Encephalopathy likely secondary to Polypharmacy - improved # Bipolar Disorder # Fibromyalgia # Anxiety # Depression She appears to be less confused this morning. However, she appears to be exp eriencing some dystonia. She states that she was sent in by Dr. Dorantes due to concern for her being on too many medications. - S/P benztropine in ED - Urine drug screen = negative - Reportedly takes several medications at home; however, medication list is unavailable - Urinalysis = pending - CT head = "no acute intracranial abnormality is seen." - Consulted Psychiatry and Neurology - recommendations appreciated # Hypokalemia - Replete electrolytes as needed # Hypertension - Reconcile home medications once verified Kendall Hoffman M.D.
[2023-04-24] MEDS: ZOLPIDEM TARTRATE 10 MG TABLET PO PRN (20:17)
[2023-04-24] MEDS ORDERED: TIZANIDINE 4 MG TABLET PO PRN (20:25)
--- NOTE | 2023-04-24 20:39 | P.PN ---
Date of Service: 04/25/23 Subjective: ROS: 10 point ROS as noted above, otherwise negative Physical Exam: Gen: Alert,oriented, NAD HEENT: normal conjunctiva, Sclera nonicteric CV: regular rate & rhythm, no edema Pulm: non-labored respirations on room air, clear bilaterally Abd: soft, non-tender, non-distended MSK: no joint tenderness Integumentary Neuro: normal speech, normal affect, bilateral upper extremity tremors, with upper extremity rigidity Problem List: 1. Acute Encephalopathy likely secondary to Polypharmacy - improved 2. Bipolar Disorder 3. Fibromyalgia 4. Anxiety 5. Depression 6. Hypokalemia 7. Hypertension PLAN She states that she was sent in by Dr. Dorantes due to concern for her being on too many medications. Reportedly takes several medications at home S/P benztropine in ED Urine drug screen: negative Urinalysis = pending CT head: no acute intracranial abnormality is seen Psychology consulted Neuro consulted Replete electrolytes as needed confirm home medications, restart as appropriate VTE: Lovenox
[2023-04-24] MEDS: LORAZEPAM 0.5 MG TABLET PO PRN (20:56)
[2023-04-24] MEDS: PANTOPRAZOLE 40MG TABLET PO SCH (20:59)
[2023-04-24] MEDS ORDERED: GABAPENTIN 300 MG CAP PO SCH (21:00)
[2023-04-25] MEDS: HYDROCODONE/APAP 10/325 TAB PO PRN ×2 (01:59→13:39)
[2023-04-25] MEDS: ONDANSETRON 4 MG/2 ML VIAL IV PRN ×2 (01:59→09:57)
[2023-04-25 03:34] LABS: Absolute Lymphocytes (CBC) 2.3 K/uL (0.7-4.9); Hematocrit 33.6 % (36.0-45.0); MCV 90.8 fL (80-100); MPV 6.7 fL (7.6-11.3)
[2023-04-25 04:13] LABS: Magnesium 2.1 mg/dL (1.6-2.4); Potassium 3.4 mEq/L (3.5-5.1)
[2023-04-25] MEDS: LEVOTHYROXINE SOD 0.05 MG TABLET PO SCH (05:38)
[2023-04-25] MEDS ORDERED: HYDRALAZINE HCL 20 MG/ML VIAL IV PRN (05:43)
[2023-04-25] MEDS: LORAZEPAM 0.5 MG TABLET PO PRN ×2 (06:44→22:18)
[2023-04-25] MEDS: ENOXAPARIN 40 MG/0.4 ML SQ SCH (07:56)
[2023-04-25] MEDS ORDERED: POTASSIUM CL SA 10 MEQ TAB PO ONE ×2 (09:00→21:00)
[2023-04-25] MEDS ORDERED: NA CHLORIDE 0.9% 500 ML IV ONE (09:20)
[2023-04-25] MEDS ORDERED: LORazepam 2 MG/ML VIAL IV ONE (09:20)
--- NOTE | 2023-04-25 09:21 | RAD REPORT ---
EXAM DESCRIPTION: MRI - Brain Wo Cont - 04/25/2023 9:10 am CLINICAL HISTORY: AMS, dysarthria Headache, drowsiness COMPARISON: Head Brain Wo Cont dated 04/23/2023; Brain Wo Cont dated 04/13/2023 TECHNIQUE: Multi-sequence, multiplanar MR imaging of the brain was performed without contrast. FINDINGS: No intracranial hemorrhage, hydrocephalus or extra-axial fluid collections. No edema or sh ift of midline structures. No findings to suspect brain mass. DWI is negative for acute CVA. Midline structures are normally formed. Mastoid air cells and paranasal sinuses are clear. IMPRESSION: Negative for acute CVA or other acute intracranial process.
[2023-04-25] MEDS: ZIPRASIDONE 20 MG CAP PO SCH ×2 (09:53→21:14)
[2023-04-25] MEDS: PROPRANOLOL HCL 10 MG TAB PO SCH ×2 (09:54→21:13)
[2023-04-25] MEDS: VENLAFAXINE HCL XR 75 MG CAP PO SCH (09:57)
[2023-04-25] MEDS: NA CHLORIDE 0.9% 1,000 ML IV SCH (09:58)
[2023-04-25] MEDS: GABAPENTIN 300 MG CAP PO SCH ×2 (13:39→21:13)
[2023-04-25] MEDS: PANTOPRAZOLE 40MG TABLET PO SCH (21:13)
[2023-04-25 23:53] VITALS: O2SAT 100
[2023-04-26] MEDS: ZOLPIDEM TARTRATE 10 MG TABLET PO PRN (00:05)
[2023-04-26 03:26] LABS: Absolute Lymphocytes (CBC) 2.3 K/uL (0.7-4.9); Hematocrit 31.3 % (36.0-45.0); Lymphocytes % 35.3 % (15.3-44.8); MCV 91.1 fL (80-100); MPV 6.6 fL (7.6-11.3); RBC Red Blood Cell Count 3.44 M/uL (3.86-4.86)
[2023-04-26 03:40] LABS: Magnesium 1.8 mg/dL (1.6-2.4); Potassium 3.4 mEq/L (3.5-5.1)
[2023-04-26] MEDS: NA CHLORIDE 0.9% 1,000 ML IV SCH (05:03)
[2023-04-26] MEDS: LEVOTHYROXINE SOD 0.05 MG TABLET PO SCH (05:04)
[2023-04-26] MEDS: ACETAMINOPHEN 500 MG TAB PO PRN ×2 (05:16→08:52)
[2023-04-26 05:43] VITALS: TEMP 97.7
[2023-04-26] MEDS ORDERED: POTASSIUM CL SA 10 MEQ TAB PO ONE (06:00)
[2023-04-26] MEDS ORDERED: MAGNESIUM SULFATE 1 gm IVPB 1 GM/100 ML BAG IV ONE (06:00)
[2023-04-26] MEDS: ENOXAPARIN 40 MG/0.4 ML SQ SCH (08:52)
[2023-04-26] MEDS: VENLAFAXINE HCL XR 75 MG CAP PO SCH (08:53)
[2023-04-26] MEDS: ZIPRASIDONE 20 MG CAP PO SCH (08:53)
[2023-04-26] MEDS: PROPRANOLOL HCL 10 MG TAB PO SCH (08:53)
[2023-04-26] MEDS: GABAPENTIN 300 MG CAP PO SCH ×2 (08:53→14:51)
[2023-04-26 12:09] VITALS: BP 119/65
--- NOTE | 2023-04-26 14:55 | EKG ---
Test Date: 2023-04-25 Test Time: 12:52:29 Guest Experience Captain: [facility] MEASUREMENT RESULTS: Intervals: Rate: 85 SC: 138 QRSD: 82 QT: 394 QTc: 468 [place]: P: 70 SC: 138 QRS: -45 T: 29 INTERPRETIVE STATEMENTS: Normal sinus rhythm Left anterior fascicular block Abnormal ECG Compared to ECG 04/23/2023 18:45:55 Left anterior fascicular block now present Left ventricular hypertrophy no longer present Early repolarization no longer present Prolonged QT interval no longer present Electronically Signed On 04-26-23 14:54:14 CDT by Lee Braga
--- NOTE | 2023-04-26 15:01 | EKG ---
Test Date: 2023-04-23 Test Time: 18:45:55 Highway Maintainer: JAYANT MEASUREMENT RESULTS: Intervals: Rate: 83 SC: 150 QRSD: 94 QT: 414 QTc: 486 [place]: P: 60 SC: 150 QRS: -25 T: 29 INTERPRETIVE STATEMENTS: Normal sinus rhythm Left ventricular hypertrophy with repolarization abnormality Prolonged QT Abnormal ECG Compared to ECG 04/13/2023 10:22:35 Left ventricular hypertrophy now present Early repolarization now present Prolonged QT interval now present Left anterior fascicular block no longer present ST (T wave) deviation no longer present Electronically Signed On 04-26-23 14:57:19 CDT by Lee Braga
--- NOTE | 2023-04-26 21:51 | CON ---
Reason For Consultation: Consultation was called because of episodes of diffuse weakness, dysarthria , and confusion. History Of Present Illness: Ms. Bosch is a 57-year-old patient with bipolar disorder, fibromyalgia, depression, anxiety, hypertension, migraine, irritable bowel syndrome, who comes to [facility] after multiple episodes of repeated diffuse weakness, confusion, and difficulty with getting thoug hts and words out. Her boyfriend was in the room. Said she had similar episodes last where she could not walk and then that recovered and prior to that 3 months ago had similar episodes becom e diffuse, could not walk and then became normal again. She linked it to changing some of her psychi atric medications, but is unsure which medication. She has been on Effexor, lamotrigine, Geodon per Psychiatry. At this hospitalization, she came in with hypokalemia. Potassium is low to 2.8 on 04/24, today is 04/26. The potassium has been corrected and in parallel, she appears to have improve d her ability to get up, get around, and ambulate. She at the time of my evaluation was alert and or iented to situation, place, person, but she was unable to recall 3 words after 3 minutes. She did fo llow simple commands and was able to spell the word world in reverse, but could not perform serial se vens. Her workup includes negative brain MRI and CT scan for any acute ischemic or hemorrhagic findi ngs. The EEG is not available. Past Medical History: As noted. Allergies: METOCLOPRAMIDE AND ROPINIROLE. Home Medications: Geodon 120 mg daily, Zanaflex 4 mg at night, diclofenac 2 tablets daily, Ativan 2 daily as needed, venlafaxine 200 mg daily, Ambien 1 at bedtime, Lamictal 200 mg daily, Synthroid 50 m cg daily, Protonix 40 mg daily, propranolol 20 mg twice daily, Atarax 50 mg twice daily as needed, vi tamin D 1000 units daily, gabapentin 600 mg daily, [place] 10/325 every 4 hours as needed, meclizine 25 mg every 8 hours as needed, melatonin 10 at bedtime. Past Surgical History: twice, hysterectomy, appendectomy, cholecystectomy, gastric bypass surgery and surgery for left wrist fracture with plates and screws. Family History: Cancer and heart disease in mother. Social History: Occasional alcohol use. No tobacco or IV drug use. Review of Systems: As noted some difficulty getting thoughts and words out with confusion. Some diffuse weakness, myalg ias, arthralgias. No rash. No headache. No weight change and some racing thoughts. Otherwise, neg ative on a 10 point system of review. Physical Examination: Vital Signs: Blood pressure 119/65, pulse 71, respiratory rate 16, temperature 97.7, oxygen saturati on 96%. General: Ms. Bosch is resting in bed, in no acute distress. HEENT: She appears normocephalic, atraumatic. Sclerae anicteric. Oropharynx is pink and moist. Neck: Supple. Chest: Clear. Heart: Regular. Extremities: Show no clubbing, cyanosis, or edema. Neurological: She is alert and oriented to person, place, situation, and hospital. She does follow simple commands without difficulty, but cognitively she is unable to perform serial sevens and recall 3 words after 3 minutes. She did identify objects appropriately. Cranial nerves show no focal defi cits. She has no focal sensation, coordination, or strength deficits. Reflexes are symmetric. Gait : She was able to ambulate to the bathroom earlier without difficulty. Laboratory Studies: White blood cell count 6.6, hemoglobin 10.5, platelets 376. Sodium 141, potassi um 3.8, chloride 114, carbon dioxide 21, glucose 87, calcium 8. Magnesium 1.8. Drug screen is negat dionna. Assessment: Ms. Bosch is a 57-year-old patient with no focal neurologic deficits, unremarkable brain MRI, and routine EEG, who has some episodes of periodic generalized weakness and confusion. Her las t episode was associated with hypokalemia. There is no clear connection to her medications and weakn ess at this point. However, her significant electrolyte abnormalities such as hypokalemia may be blake sherrill a role. She has no evidence of seizure activity. Plan: 1.She may continue with potassium replacement, perhaps 10 mEq daily. 2.Potassium level should be checked in the next week. 3.After discharge followup in Dr. Pantoja's office and EEG may be performed. If the patient has re peated episodes, ambulatory EEG monitoring to rule out potential seizure activity. 4.Follow up with Psychiatry for her multiple comorbid conditions, which are noted above and follow u p with her primary care physician as well for her comorbid conditions that are noted. ALICIA/EDWIN Voice ID: [id number] Report ID: [id number]
== END 2023-04-26 15:28 | disposition home or self-care (01) | DRG 93 ==
LOC: ER 17:15 → ERHOLD 22:03 → 2ND 22:57 → OBSVTOIN 04-26 08:16
PROVIDERS: ADMIT Internal Medicine; ATTEND Hospitalist
DX: G92.8 Other toxic encephalopathy (principal); M79.7 Fibromyalgia; I10 Essential (primary) hypertension; G47.00 Insomnia, unspecified; E87.6 Hypokalemia; F31.9 Bipolar disorder, unspecified; F41.9 Anxiety disorder, unspecified; T50.915A Adverse effect of multiple unspecified drugs, medicaments and biological substances, initial encounter; Z88.8 Allergy status to other drugs, medicaments and biological substances; Z90.49 Acquired absence of other specified parts of digestive tract; Z98.84 Bariatric surgery status; Z90.710 Acquired absence of both cervix and uterus; Z79.899 Other long term (current) drug therapy
CPT/HCPCS: 36415; 70450; 70551; 80048; 80076; 80143; 80179; 80307; 82077; 82140; 82607; 83735; 84132; 84439; 84443; 85025; 85610; 85730; 93005; 96374; 96375; 99285; J0360; J0515; J1650; J2405; J3475; J7030; J7040

== ENCOUNTER 2023-04-28 18:13 | Inpatient (IN) | payer MEDICARE ==
--- OUTSIDE RECORDS SUMMARY | 2023-04-28 18:28 | XMS REPORT | Continuity of Care Document ---
:[address] [facility] t Address [address] [place] [address] [address] [place] [address] Care Team Providers Name Role Phone No, Pcp [facility] Primary Care Physician Unavailable Davin Platt Attending Clinician Unavailable [email or web address] Attending Clinician Unavailable Dana Lunsford Attending Clinician Marla La Attending Clinician Melissa Dunham Attending Clinician Unavailable Abhinav_R Attending Clinician Unavailable SHAN SANTANA Attending Clinician Unavailable Shan Santana MD Attending Clinician Doctor Unassigned, [place] Attending Clinician Unavailable Almita Moore MA Attending Clinician Unavailable SCAR OJEDA Attending Clinician Unavailable NILAY LENNON Attending Clinician Unavailable Nilay Lennon DO Attending Clinician Spike Puri RN Attending Clinician Unavailable JESUS MORA Attending Clinician Unavailable Hill Piña Attending Clinician Pauly Tanner Attending Clinician Wade HART, Adpreethi Attending Clinician Jesus Mora DO Attending Clinician Abdirizak Krueger MD Attending Clinician [phone] ABDIRIZAK KRUEGER Attending Clinician Unavailable CARLTON [...] Number Effective Date Expiration Date S julio [facility] 2022 (MEDICARE 00:00:00 REPLACEMENT HMO) [employer] [id number] 2020spring 00:00:00 [employer] C1 [id number] 2018 Common g Medicare 00:00:00 [facility] Replace [facility] Problems Condition Condition Condition Status Onset Resolution Last Treating Co mments Source Name Details Category Date Date Treatment Clinician Date Abdominal Abdominal Disease Active Uni vers pain, pain, 9-14 ity [place]specif[place] Medical abdominal abdominal Bran ch location location Small Small Disease Recurre [facility] bowel bowel nce 06-26 [facility] obstructio obstructio 00:00: Me dical n n 00 Center Pancreatit Pancreatit Disease Active C HI St is is 06-25 [facility] 00:00: Medical 00 Center Perimenopa Post Problem Commo n usal hysterecto Spirit disorder my - CHI menopause [facility] Chronic Stage 3b Problem Common kidney chronic Spirit disease kidney - CHI stage 3B disease St (disorder) [facility] Mixed Depression Problem Commo n anxiety with Spirit and anxiety - [facility] depressive [facility] Benign Benign Problem Common essential essential Spir it hypertensi hypertensi - CHI on on [facility] Bipolar Bipolar Problem Common disorder disorder Spirit [facility] Solitary Solitary Problem Commo n cyst of cyst of Spirit breast left - CHI breast [facility] [id number] Irritable Problem Comm on bowel Spirit syndrome, - CHI unspecifie [facility] Migraine Migraine Problem Commo n without without Spirit aura, not aura and - CHI refractory without [facility] migrainosu Medica l s, not Center intractabl e [id number] Mixed Problem Common hyperlipid Spirit emia - CHI [facility] [id number] Nausea Problem Common [facility] [id number] Fibromyalg Problem Co mmon ia Spirit [facility] [id number] Hemorrhoid Problem Com mon s, Spirit unspecifie - CHI d hemorrhoid [facility] Pain in Left wrist Problem Comm on wrist pain [facility] [id number] Back pain Problem Com mon with Spirit left-sided - CHI radiculopa [facility] [id number] History of Problem Co mmon intussusce [facility] ption [facility] [id number] Constipati Problem Com mon on, Spirit unspecifie - CHI d constipati [facility] [id number] GERD Problem Common without Spirit esophagiti - CHI s [facility] [id number] Subclinica Problem Com mon l Spirit hypothyroi - CHI dism [facility] [id number] +5th digit Problem Co mmon eff Spirit 07/03/20*CK - CHI D (chronic kidney [facility] disease) Medical stage 3, Center GFR 30-59 ml/min Right Abdominal Problem Common upper pain, RUQ Spirit quadrant - CHI pain [facility] No known No known Disease Unive rs active active ity of problems problems [facility] Allergies, Adverse Reactions, Alerts Allergy Allergy Status Severity Reaction(s) Onset Inactive Treating Comm ents Source Name Type Date Date Clinician METOCLOP DRUG Active Anxiety 2020-10 Univers RAMIDE INGREDI 10-19 ity of 00:00: [address] ROPINIRO DRUG Active N/V 2020-10 Univers [...] St LE 9-23 [facility] 00:[facility]: Medical 00 [place] Hydrochl Propensi Active Other - See 2016-10 Weak U nivers orothiaz ty to comments 0-10 ity of noel adverse 00:00: [place] reaction [facility] HYDROCHL DRUG Active High Other-Cmnt 2016-10 Univ ers OROTHIAZ INGREDI 0-10 ity of NOEL 00:00: [place] 00 [facility] metoclop metoclop Active Unknown Commo n ramide ramide [facility] 5921 Drug Active Unknown Common allergy [facility] Social History Social Habit Start Date Stop Date Quantity Comments Source History of Common Spirit - Tobacco Use [facility] History SDOH [facility] Alcohol Std Medical Cent[facility] r Drinks History [facility] Alcohol Binge Medical Bruna ter Exposure to 2022-09-13 2022-09-23 Not sure [facility] SARS-CoV-2 00:00:00 14:14:00 [facility] (event) Branch Education 2022-06-16 2022-06-16 21 University 00:00:00 00:00:00 [facility] Alcohol intake 2022-04-14 2022-04-[address] [facility] [address] Jg es 00:00:00 00:00:00 non-drinker of Medical Ce nter alcohol (finding) History SDOH 2019-06-25 2019-06-[address] [facility] [address] [facility] Alcohol Frequency 00:00:00 00:00:00 [facility] Tobacco use and 2019-06-25 2019-06-25 Smokeless tobacco CH Sharyn Moreland exposure 00:00:00 00:00:00 non-user Medical Center Sex Ass[birth year] At [birth year] ADELAIDE Sandersons 00:00:00 00:00:00 Medical Center Smoking Status Start Date Stop Date Source Never smoked tobacco [facility] Medications Ordered Filled Start Stop Current Ordering [...] 07/26/22 at 1245, RUBEN naproxen 2021-10 Yes [id number] 550mg Take 1 Univers sodium 550 0-24 [id number] tablet by it y of mg tablet 00:00: [place] the Medical morning Branch and 1 tablet in the evening. Take with meals. methylPREDN 2021-10 Yes [id number] Take by Univers ISolone 4 0-24 [id number] mouth ity of mg tablets 00:00: [place]-INSTRU [place] 00 CTIONS. Medical follow Branch package directions naproxen 2021-10 Yes [id number] 550mg Take 1 Univers sodium 550 0-24 [id number] tablet by it y of mg tablet 00:00: [place] the Medical morning Branch and 1 tablet in the evening. Take with meals. methylPREDN 2021-10 Yes [id number] Take by Univers ISolone 4 0-24 [id number] mouth ity of mg tablets 00:00: [place]-INSTRU [place] 00 CTIONS. Medical follow Branch package directions naproxen 2021-10 Yes [id number] 550mg Take 1 Univers sodium 550 0-24 [id number] tablet by it y of mg tablet 00:00: [place] the Medical morning Branch and 1 tablet in the evening. Take with meals. methylPREDN 2021-10 Yes [id number] Take by Univers ISolone 4 0-24 [id number] mouth ity of mg tablets 00:00: SEE-INSTRU [place] 00 CTIONS. Medical follow Branch package directions methocarbam 2021-10- No [id number] 500mg Take 1 Univers oL 500 mg 0-24 08-01 [id number] tablet by it y of tablet 00:00: 04:59 mouth in [place] 00 :00 the Medical morning Branch and 1 tablet at noon and 1 tablet in the evening. Do all this for 5 days. lidocaine 5 2021-10- No [id number] 1{patch Apply 1 Univers % (700 0-24 [id number] } Patch to ity of mg/patch) 00:00: [...] by ity of capsule 12:24: mouth 3 [place] 20 (three) Medical times Branch daily. Indication s: 1 in the Am and 4 at bed time ziprasidone 2021-0 Yes 60mg Take 60 mg Univers 60 mg 9-19 by mouth ity of capsule 12:24: daily. [place] [address] Medical Branch PANTOPRAZOL 0 Yes 40mg Take [...] by mouth ity of tablet 12:24: daily. [place] [address] Medical Branch levothyroxi 0 Yes 50ug Take 50 Uni vers ne 50 mcg 9-19 mcg by ity of tablet 12:24: mouth [place] [address] every Medical morning. Branch hydrOXYzine 2022-0 Yes 50mg Take 50 mg Univers 50 mg 9-19 by mouth ity of tablet 12:24: in the [place] [address] morning Medical and 50 mg Branch in the evening. zolpidem 2021-0 Yes 12.5mg Take 12.5 Un henry 12.5 mg CR 9-19 mg by ity of tablet 12:24: mouth at [place] [address] bedtime as Medical needed for Branch Sleep. buspirone 2021-0 Yes 5mg Take 5 mg Uni vers HCl 9-19 by mouth ity of (BUSPIRONE 12:24: as needed. [place] ORAL) 20 Medical Branch LORazepam 2021-0 Yes .5mg Take 0.5 Univ ers 0.5 mg 9-19 mg by ity of tablet 12:24: mouth as [place] [address] needed. Medical Branch venlafaxine 0 Yes 75mg Take 75 mg Univers XR 75 mg 24 06-21 by mouth ity of hr capsule 12:24: daily with [place] 20 breakfast. Medical Branch lamoTRIgine 2021-0 Yes 200mg Take 200 U nivers 200 mg 9-19 mg by ity of tablet 12:24: mouth in [place] [address] the Medical morning. Branch gabapentin 0 Yes 300mg Take 300 Un henry 300 mg 9-19 mg by ity of capsule 12:24: mouth 3 [place] [address] (three) Medical times Branch daily. Indication s: 1 in the Am and 4 at bed time ziprasidone 2021-0 Yes 60mg Take 60 mg Univers 60 mg 9-19 by mouth ity of capsule 12:24: daily. [place] [address] Medical Branch PANTOPRAZOL 2021-0 Yes 40mg Take 40 mg Univers E SODIUM 9-19 by mouth. ity of (PROTONIX 12:24: [place] ORAL) 20 Medical Branch tiZANidine 0 Yes 4mg Take 4 mg Un henry 4 mg 9-19 by mouth 2 ity of capsule 12:24: (two) [place] [address] times Medical daily. Branch IRON &IRON 0 Yes Take by Univ ers ASP 9-19 mouth. ity of GLY-FA-MV,M 12:24: Indication [place] IN38 ORAL 20 s: iron Medical injectio Branch once a month propranolol 2021-0 Yes 20mg Take 20 mg Univers 20 mg 9-19 by mouth ity of tablet 12:24: daily. [place] [address] Medical Branch levothyroxi 0 Yes 50ug Take 50 Uni vers ne 50 mcg 9-19 mcg by ity of tablet 12:24: mouth [place] [address] every Medical morning. Branch hydrOXYzine 0 Yes 50mg Take 50 mg Univers 50 mg 9-19 by mouth ity of tablet 12:24: in the [place] [address] morning Medical and 50 mg Branch in the evening. zolpidem 2021-0 Yes 12.5mg Take 12.5 Un henry 12.5 mg CR 9-19 mg by ity of tablet 12:24: mouth at [place] [address] bedtime as Medical needed for Branch Sleep. buspirone 0 Yes 5mg Take 5 mg Uni vers HCl 9-19 by mouth ity of (BUSPIRONE 12:24: as needed. [place] ORAL) 20 Medical Branch LORazepam 0 Yes .5mg Take 0.5 Univ ers 0.5 mg 9-19 mg by ity of tablet 12:24: mouth as [place] [address] needed. Medical Branch venlafaxine 0 Yes 75mg Take 75 mg Univers XR 75 mg 24 9-19 by mouth ity of hr capsule 12:24: daily with [place] 20 breakfast. Medical Branch lamoTRIgine 0 Yes 200mg Take 200 U nivers 200 mg 9-19 mg by ity of tablet 12:24: mouth in [place] [address] the Medical morning. Branch gabapentin 0 Yes 300mg Take 300 Un henry 300 mg 9-19 mg by ity of capsule 12:24: mouth 3 [place] [address] (three) Medical times Branch daily. Indication s: 1 in the Am and 4 at bed time ziprasidone 2021-0 Yes 60mg Take 60 mg Univers 60 mg 9-19 by mouth ity of capsule 12:24: daily. [place] [address] Medical Branch PANTOPRAZOL 2021-0 Yes 40mg Take 40 mg Univers E SODIUM 9-19 by mouth. ity of (PROTONIX 12:24: [place] ORAL) 20 Medical Branch tiZANidine 2021-0 Yes 4mg Take 4 mg Un henry 4 mg 9-19 by mouth 2 ity of capsule 12:24: (two) [place] 20 times Medical daily. Branch IRON &IRON 2021-0 Yes Take by Univ ers ASP 9-19 mouth. ity of GLY-FA-MV,M 12:24: Indication [place] IN ORAL 20 s: iron Medical injectio Branch once a month propranolol 2021-0 Yes 20mg Take 20 mg Univers 20 mg 9-19 by mouth ity of tablet 12:24: daily. [place] [address] Medical Branch levothyroxi 2021-0 Yes 50ug Take 50 Uni vers ne 50 mcg 9-19 mcg by ity of tablet 12:24: mouth [place] 20 every Medical morning. Branch hydrOXYzine 2021-0 Yes 50mg Take 50 mg Univers 50 mg 9-19 by mouth ity of tablet 12:24: in the [place] 20 morning Medical and 50 mg Branch in the evening. zolpidem 2021-0 Yes 12.5mg Take 12.5 Un henry 12.5 mg CR 9-19 mg by ity of tablet 12:24: mouth at [place] [address] bedtime as Medical needed for Branch Sleep. buspirone 2021-0 Yes 5mg Take 5 mg Uni vers HCl 9-19 by mouth ity of (BUSPIRONE 12:24: as needed. [place] ORAL) 20 Medical Branch LORazepam 2021-0 Yes .5mg Take 0.5 Univ ers 0.5 mg 9-19 mg by ity of tablet 12:24: mouth as [place] [address] needed. Medical Branch venlafaxine 2021-0 Yes 75mg Take 75 mg Univers XR 75 mg 24 9-19 by mouth ity of hr capsule 12:24: daily with [place] 20 breakfast. Medical Branch lamoTRIgine 2021-0 Yes 200mg Take 200 U nivers 200 mg 9-19 mg by ity of tablet 12:24: mouth in [place] 20 the Medical morning. Branch gabapentin 2021-0 Yes 300mg Take 300 Un henry 300 mg 9-19 mg by ity of capsule 12:24: mouth 3 [place] 20 (three) Medical times Branch daily. Indication s: 1 in the Am and 4 at bed time ziprasidone 2021-0 Yes 60mg Take 60 mg Univers 60 mg 9-19 by mouth ity of capsule 12:24: daily. [place] [address] Medical Branch PANTOPRAZOL 2021-0 Yes 40mg Take [...] by ity of tablet 12:24: mouth at [place] 20 bedtime as Medical needed for Branch [...] by mouth ity of capsule 12:24: daily. [place] 20 Medical Branch PANTOPRAZOL 2022-0 Yes 40mg [...] by mouth ity of tablet 12:24: daily. [place] 20 Medical Branch levothyroxi 0 Yes 50ug [...] carlos 1:1:1 [place] Branch ([facility]MOUT 06/17/22 at [facility]) 2100, oral Routine suspension 15 [...] carlos 1:1:1 [place] (FIRST-MOUT 06/17/22 at [facility]) 1045, oral Routine suspension 15 [...] [place] mg 00 First dose Medical on [facility] Branch 06/17/22 at 0900, Until Discontinu ed, [...] mg 13:00: First dose [place] 00 on [facility] 06/17/22 at Branch 0800, Until Discontinu ed propranoloL 0 Yes 20mg 20 mg, Univ ers (INDERAL) 15 Oral, BID, ity of tablet 20 13:00: [place] 00 [place] [facility] 06/17/22 at Branch 0800, Until Discontinu ed, Routine heparin 0 Yes 5000U 5,000 Univers (porcine) 15 Units, ity of injection 13:00: Subcutaneo [place] 5,000 Units 00 us, Q12H, Med ical First dose Branch on [facility] 06/17/22 at 0800, Until Discontinu ed, Routine levothyroxi Yes 50ug 50 mcg, Uni vers ne 06-17 Oral, ity of (SYNTHROID) 11:00: QAM-0600, [place] tablet 50 00 First dose Medi carlos mcg on [facility] 06/17/22 at 0600, Until Discontinu ed, Routine ziprasidone Yes 120mg 120 mg, Un henry (GEODON) 15 Oral, QHS, ity o f capsule 120 08:30: First dose [place] mg 00 on [facility] 06/17/22 at Branch 0330, Until Discontinu ed, Routine NaCl 0.9% 2021- No 1000mL at 100 Uni vers (NS) IV 06-17 09-17 mL/hr, IV ity of infusion 07:15: 22:39 Infusion, [place] as 1,000 mL 00 :15 CONTINUOUS Medic al , Starting Branch on [facility] 06/17/22 at 0215, Until 06/19/22 at 1739, Routine NaCl 0.9% 0 2021- No 1000mL at 999 Uni vers (NS) bolus 06-17 09-15 mL/hr, ity of infusion 07:15: 07:48 1,000 mL, [place] as 1,000 mL 00 :04 IV Medical Piggyback, Branch ONCE, 1 dose, On [facility] 06/17/22 at 0215, RUBEN gabapentin 0 Yes 300mg 300 mg, Uni vers (NEURONTIN) 15 Oral, TID, it y of capsule 300 06:30: First dose [place] mg 00 on [facility] Medical 06/17/22 at Branch 0130, Until Discontinu ed, Routine hydrOXYzine 2021-0 Yes 25mg 25 mg, Univ ers (ATARAX) 915 Oral, ity of tablet 25 06:19: Q6HPRN, [place] mg 36 Starting Medical on [facility] Branch 06/17/22 at 0119, Until Discontinu ed, Routine, Anxiety zolpidem 2021-0 Yes 10mg 10 mg, Univers (AMBIEN) 15 Oral, ity of tablet 10 06:18: QHSPRN, [place] mg 39 Starting Medical on [facility] Branch 06/17/22 at 0118, Until Discontinu ed, Insomnia LORazepam 2021-0 Yes .5mg 0.5 mg, Unive rs (ATIVAN) 06-17 Oral, ity of tablet 0.5 06:16: BIDPRN, [place] mg 51 Starting Medical on [facility] Branch 06/17/22 at 0116, Until Discontinu ed, Routine, Agitation sennosides 0 Yes 8.6mg 8.6 mg, Uni vers (SENOKOT) 15 Oral, BID, ity of tablet 8.6 06:15: First dose [place] mg 00 on [facility] Medical 06/17/22 at Branch 0115, Until Discontinu ed, Routine docusate 0 Yes 100mg 100 mg, Unive rs (COLACE) 15 Oral, BID, ity o f capsule 100 06:15: First dose [place] mg 00 on [facility] 06/17/22 at Branch 0115, Until Discontinu ed, Routine pantoprazol 2021-0 2021- No 40mg 40 mg, Uni vers e 06-1718 Slow IV ity of (PROTONIX) 06:15: 15:58 Push, [place] injection 00 :22 Q12H, Medical 40 mg First dose Branch on [facility] 06/17/22 at 0115, Until Discontinu ed ondansetron 0 Yes 4mg 4 mg, Slow Univers (ZOFRAN 06-17 IV Push, ity of (PF)) 06:06: Q6HPRN, [place] injection 4 09 Starting Medi carlos mg on [facility] Branch 06/17/22 at 0106, Until Discontinu ed, [...] 06/16/22 at 2115, STAT iopamidol 2021- No [id number] 70mL 70 mL, U nivers (ISOVUE 06-17 [...] as needed for Anxiety. gabapentin Yes 600mg Q.32938489 Take [address] (NEURONTIN) 7-13 [id number] mg by L ukes 600 MG 13:36: [...] needed for Anxiety. gabapentin 0 Yes 600mg Q.35401659 Take [address] (NEURONTIN) 7-13 [id number] mg by L ukes 600 MG 13:36: 3D mouth 3 Medical tablet 47 (three) Center times daily. ziprasidone 0 Yes 120mg QD Take [address] (GEODON) 60 7-13 mg by [facility] MG capsule 13:36: mouth Medica l 47 nightly . [place] propranolol 0 Yes 10mg Q.5D Take 10 [...] needed for Anxiety. gabapentin 0 Yes 600mg Q.50592754 Take [address] (NEURONTIN) 7-13 [id number] mg by L ukes 600 MG 13:36: [...] needed for Anxiety. gabapentin 2021-0 Yes 600mg Q.95297197 Take [address] (NEURONTIN) 7-13 [id number] mg by L ukes 600 MG 13:36: [...] needed for Anxiety. gabapentin 2021-0 Yes 600mg Q.88168665 Take [address] (NEURONTIN) 7-13 [id number] mg by L ukes 600 MG 13:36: [...] (two) Center times daily as needed. LORazepam 2022-0 Yes .5mg Take 0.[address] (ATIVAN) [...] (two) Center times daily as needed. zolpidem [address] (AMBIEN) 10 3-23 [facility] mg tablet 00:00: Medical 00 [place] zolpidem [address] (AMBIEN) 10 3-23 [facility] mg tablet 00:00: Medical 00 [place] zolpidem [address] (AMBIEN) 10 3-23 [facility]ukes mg tablet 00:00: Medical 00 [place] zolpidem [address] (AMBIEN) 10 3-23 [facility] mg tablet 00:00: Medical 00 [place] zolpidem [address] (AMBIEN) 10 3-23 [facility] mg tablet 00:00: Medical 00 [place] lamoTRIgine [address] (LaMICtal) 3-15 [facility] 200 MG 00:00: Medical tablet 00 [place] lamoTRIgine [address] (LaMICtal) 3-15 [facility] 200 MG 00:00: Medical tablet 00 [place] lamoTRIgine Yes [facility] (LaMICtal) 3-15 [facility] 200 MG 00:00: Medical tablet 00 [place] lamoTRIgine Yes [facility] (LaMICtal) 3-15 [facility] 200 MG 00:00: Medical tablet 00 [place] lamoTRIgine [address] (LaMICtal) 3-15 [facility] 200 MG 00:00: Medical tablet 00 [place] venlafaxine Yes [facility] (EFFEXOR) 3-04 [facility] 75 MG 00:00: Medical tablet 00 [place] venlafaxine Yes [facility] (EFFEXOR) 3-04 [facility] 75 MG 00:00: Medical tablet 00 [place] venlafaxine Yes [facility] (EFFEXOR) 3-04 [facility] 75 MG 00:00: Medical tablet 00 [place] venlafaxine Yes [facility] (EFFEXOR) 3-04 [facility] 75 MG 00:00: Medical tablet 00 [place] venlafaxine Yes [facility] (EFFEXOR) 3-04 [facility] 75 MG 00:00: Medical tablet 00 [place] iopamidol 2021- No [id number] 100mL 100 mL, Univers (ISOVUE 10-16 Intravenou [...] 11-23 Starting ity of (SIMETHICON 17:03: on Tue [...] Starting ity of (SIMETHICON 17:03: 20:23 on e Faustino as E)) 40 00 :39 09/22/21 Medical mg/0.6 mL at 1103, Branch drops Until Tue09/22/21 at 1423, Routine, Intra-op lactated 2020-10- No 1000mL at 42 Unive rs ringers IV 2- 12-21 mL/hr, ity of infusion 16:45: 16:47 1,000 mL, [place] as 1,000 mL 00 :00 IV Medical Infusion, Branch ONCE, 1 dose, On Tue09/22/21 at 1045, Routine, DSU Pre-op lactated 2020-10- No 1000mL at 42 Univ rs ringers IV 2-21 12-21 mL/hr, ity of infusion 16:45: 16:47 1,000 mL, [place] 1,000 mL 00 :00 IV Medical Infusion, Branch ONCE, 1 dose, On Tue09/22/21 at 1045, Routine, DSU Pre-op FLUoxetine 2020-10 Yes 40mg Take 40 mg U nivers (PROZAC) 40 2-21 by mouth ity of mg capsule 12:23: daily. [address] gabapentin 2020-10 Yes 300mg Take 300 Un henry 300 mg 2-21 mg by ity of capsule 12:23: mouth 3 [place] 30 (three) Medical times Branch daily. Indication s: 1 in the Am and 4 at bed time ziprasidone 2020-10 Yes 60mg Take 60 mg Univers (GEODON) 60 2-21 by mouth ity of mg capsule 12:23: daily. [address] PANTOPRAZOL 2020-10 Yes 40mg Take 40 mg Univers E SODIUM 2-21 by mouth. ity of (PROTONIX 12:23: [place] ORAL) [address] [place] [address] Branch tiZANidine 2020-10 Yes 4mg Take 4 mg Un henry (ZANAFLEX) 2-21 by mouth 2 ity of 4 mg 12:23: (two) [place] capsule 30 times Medical daily. Branch IRON &IRON 2020-10 Yes Take by [facility] ers ASP 2-21 mouth. ity of GLY-FA-MV,M 12:23: Indication [place] IN38 ORAL 30 s: iron Medical injectio Branch once a month DICLOFENAC 2020-10 Yes Take 50 mg U nivers POTASSIUM 2-21 base by ity of (CAMBIA 12:23: mouth. [facility]) Medical Branch propranolol 2020-10 Yes 20mg Take 20 mg Univers 20 mg 2-21 by mouth ity of tablet 12:23: daily. [address] FLUoxetine 2020-10 Yes 40mg Take 40 mg U nivers (PROZAC) 40 2-21 by mouth ity of mg capsule 12:23: daily. [address] gabapentin 2020-10 Yes 300mg Take 300 Un henry 300 mg 2-21 mg by ity of capsule 12:23: mouth 3 [place] 30 (three) Medical times [place] daily. Indication s: 1 in the Am and 4 at bed time ziprasidone 2020-10 Yes 60mg Take 60 mg Univers (GEODON) 60 2-21 by mouth ity of mg capsule 12:23: daily. [address] PANTOPRAZOL 2020-10 Yes 40mg Take 40 mg Univers E SODIUM 2-21 by mouth. ity of (PROTONIX 12:23: [place] ORAL) 30 [facility] Branch tiZANidine 2020-10 Yes 4mg Take 4 mg Un henry (ZANAFLEX) 2-21 by mouth 2 ity of 4 mg 12:23: (two) [place] capsule 30 times Medical daily. Branch IRON &IRON 2020-10 Yes Take by Univ ers ASP 2-21 mouth. ity of GLY-FA-MV,M 12:23: Indication [place] IN ORAL 30 s: iron Medical injectio Branch once a month DICLOFENAC 2020-10 Yes Take 50 mg U nivers POTASSIUM 2-21 base by ity of (CAMBIA 12:23: mouth. [address] Branch propranolol 2020-10 Yes 20mg Take 20 mg Univers 20 mg 2-21 by mouth ity of tablet 12:23: daily. [address] FLUoxetine 2020-10 Yes 40mg Take 40 mg U nivers (PROZAC) 40 2-21 by mouth ity of mg capsule 12:23: daily. [address] gabapentin 2020-10 Yes 300mg Take 300 Un henry 300 mg 2-21 mg by ity of capsule 12:23: mouth 3 [place] 30 (three) Medical times [place] daily. Indication s: 1 in the Am and 4 at bed time ziprasidone 2020-10 Yes 60mg Take 60 mg Univers (GEODON) 60 2-21 by mouth ity of mg capsule 12:23: daily. [address] PANTOPRAZOL 2020-10 Yes 40mg Take 40 mg Univers E SODIUM 2-21 by mouth. ity of (PROTONIX 12:23: [place] ORAL) 30 [facility] Branch tiZANidine 2020-10 Yes 4mg Take 4 mg Un henry (ZANAFLEX) 2-21 by mouth 2 ity of 4 mg 12:23: (two) [place] capsule 30 times Medical daily. Branch IRON &IRON 2020-10 Yes Take by [facility] ers ASP 2-21 mouth. ity of LINUS-HAROON-JAZMYN,M 12:23: Indication [place] IN38 ORAL 30 s: iron Medical injectio Branch once a month DICLOFENAC 2020-10 Yes Take 50 mg U nivers POTASSIUM 2-21 base by ity of (CAMBIA 12:23: mouth. [place] ORAL) [address] [place] [address] Branch propranolol 2020-10 Yes 20mg Take 20 mg Univers 20 mg 2-21 by mouth ity of tablet 12:23: daily. [address] Branch FLUoxetine 2020-10 Yes 40mg Take 40 mg U nivers (PROZAC) 40 2-21 by mouth ity of mg capsule 12:23: daily. [address] gabapentin 2020-10 Yes 300mg Take 300 Un henry 300 mg 2-21 mg by ity of capsule 12:23: mouth 3 [place] 30 (three) Medical times Branch daily. Indication s: 1 in the Am and 4 at bed time ziprasidone 2020-10 Yes 60mg Take 60 mg Univers (GEODON) 60 2-21 by mouth ity of mg capsule 12:23: daily. [address] PANTOPRAZOL 2020-10 Yes 40mg Take 40 mg Univers E SODIUM 2-21 by mouth. ity of (PROTONIX 12:23: [place] ORAL) [address] [place] [address] tiZANidine 2020-10 Yes 4mg Take 4 mg Un henry (ZANAFLEX) 2-21 by mouth 2 ity of 4 mg 12:23: (two) [place] capsule 30 times Medical daily. Branch IRON &IRON 2020-10 Yes Take by [facility] ers ASP 2-21 mouth. ity of LINUS-MARCUSJAZMYN,M 12:23: Indication [place] IN38 ORAL 30 s: iron Medical injectio Branch once a month DICLOFENAC 2020-10 Yes Take 50 mg U nivers POTASSIUM 2-21 base by ity of (CAMBIA 12:23: mouth. [place] ORAL) [address] [place] [address] Branch propranolol 2020-10 Yes 20mg Take 20 mg Univers 20 mg 2-21 by mouth ity of tablet 12:23: daily. [address] FLUoxetine 2020-10 Yes 40mg Take 40 mg U nivers (PROZAC) 40 2-21 by mouth ity of mg capsule 12:23: daily. [address] gabapentin 2020-10 Yes 300mg Take 300 Un henry 300 mg 2-21 mg by ity of capsule 12:23: mouth 3 [place] 30 (three) Medical times Branch daily. Indication s: 1 in the Am and 4 at bed time ziprasidone 2020-10 Yes 60mg Take 60 mg Univers (GEODON) 60 2-21 by mouth ity of mg capsule 12:23: daily. [address] PANTOPRAZOL 2020-10 Yes 40mg Take 40 mg Univers E SODIUM 2-21 by mouth. ity of (PROTONIX 12:23: [place] ORAL) [address] [place] [address] tiZANidine 2020-10 Yes 4mg Take 4 mg Un henry (ZANAFLEX) 2-21 by mouth 2 ity of 4 mg 12:23: (two) [place] capsule 30 times Medical daily. Branch IRON &IRON 2020-10 Yes Take by Univ ers ASP 2-21 mouth. ity of GLY-FA-MV,M 12:23: Indication [place] IN38 ORAL 30 s: iron Medical injectio Branch once a month DICLOFENAC 2020-10 Yes Take 50 mg U nivers POTASSIUM 2-21 base by ity of (CAMBIA 12:23: mouth. [facility]) [address] [place] [address] propranolol 2020-10 Yes 20mg Take 20 mg Univers 20 mg 2-21 by mouth ity of tablet 12:23: daily. [address] water for 2020-10- No PRN, Univers [...] 1000mL at 42 Unive rs ringers IV 1-18 11-18 mL/hr, ity of infusion 18:00: 17:59 1,000 mL, Faustino as 1,000 mL 00 :00 IV Medical Infusion, Branch ONCE, 1 dose, On Jennie 08/20/21 at 1200, Routine, [facility] Pre-op FLUoxetine 2020-10 Yes 40mg Take 40 mg U nivers (PROZAC) 40 1-18 by mouth ity of mg capsule 13:01: daily. [address] Branch gabapentin 2020-10 Yes 300mg Take 300 Un henry 300 mg 1-18 mg by ity of capsule 13:01: mouth 3 [place] 23 (three) Medical times Branch daily. Indication s: 1 in the Am and 4 at bed time ziprasidone 2020-10 Yes 60mg Take 60 mg Univers (GEODON) 60 1-18 by mouth ity of mg capsule 13:01: daily. [address] Branch PANTOPRAZOL 2020-10 Yes 40mg Take 40 mg Univers E SODIUM 1-18 by mouth. ity of (PROTONIX 13:01: [place] ORAL) 23 Medical Branch tiZANidine 2020-10 Yes 4mg Take 4 mg Un henry (ZANAFLEX) 1-18 by mouth 2 ity of 4 mg 13:01: (two) [place] capsule 23 times Medical daily. Branch IRON &IRON 2020-10 Yes Take by [facility] ers ASP 1-18 mouth. ity of GLY-FA-MV,M 13:01: Indication [place] IN38 ORAL 23 s: iron Medical injectio Branch once a month DICLOFENAC 2020-10 Yes Take 50 mg U nivers POTASSIUM 1-18 base by ity of (CAMBIA 13:01: mouth. [facility]) 23 Medical Branch propranolol 2020-10 Yes 20mg Take 20 mg Univers 20 mg 1-18 by mouth ity of tablet 13:01: daily. [address] FLUoxetine 2020-10 Yes 40mg Take 40 mg U nivers (PROZAC) 40 1-18 by mouth ity of mg capsule 13:01: daily. [address] Branch gabapentin 2020-10 Yes 300mg Take 300 Un henry 300 mg 1-18 mg by ity of capsule 13:01: mouth 3 [place] [address] (three) Medical times [place] daily. Indication s: 1 in the Am and 4 at bed time ziprasidone 2020-10 Yes 60mg Take 60 mg Univers (GEODON) 60 1-18 by mouth ity of mg capsule 13:01: daily. [address] PANTOPRAZOL 2020-10 Yes 40mg Take 40 mg Univers E SODIUM 1-18 by mouth. ity of (PROTONIX 13:01: [place] ORAL) [address] [place] [address] Branch tiZANidine 2020-10 Yes 4mg Take 4 mg Un henry (ZANAFLEX) 1-18 by mouth 2 ity of 4 mg 13:01: (two) [place] capsule 23 times Medical daily. Branch IRON &IRON 2020-10 Yes Take by Univ ers ASP 1-18 mouth. ity of GLY-FA-MV,M 13:01: Indication [place] [address] ORAL 23 s: iron Medical injectio Branch once a month DICLOFENAC 2020-10 Yes Take 50 mg U nivers POTASSIUM 1-18 base by ity of (CAMBIA 13:01: mouth. [address] propranolol 2020-10 Yes 20mg Take 20 mg Univers 20 mg 1-18 by mouth ity of tablet 13:01: daily. [address] FLUoxetine 2020-10 Yes 40mg Take 40 mg U nivers (PROZAC) 40 1-18 by mouth ity of mg capsule 13:01: daily. [address] gabapentin 2020-10 Yes 300mg Take 300 Un henry 300 mg 1-18 mg by ity of capsule 13:01: mouth 3 [place] [address] (three) Medical times [place] daily. Indication s: 1 in the Am and 4 at bed time ziprasidone 2020-10 Yes 60mg Take 60 mg Univers (GEODON) 60 1-18 by mouth ity of mg capsule 13:01: daily. [address] PANTOPRAZOL 2020-10 Yes 40mg Take 40 mg Univers E SODIUM 1-18 by mouth. ity of (PROTONIX 13:01: [place] ORAL) [address] [place] [address] Branch tiZANidine 2020-10 Yes 4mg Take 4 [...] base by ity of (CAMBIA 13:01: mouth. [place] ORAL) 23 Medical Branch propranolol 2020-10 Yes 20mg Take 20 mg Univers 20 mg 1-18 by mouth ity of tablet 13:01: daily. [place] 23 Medical Branch Sulfamethox Sulfamethox 2020- No 1{table BID [...] mouth [place] 00 :00 daily. Medical Branch Pantoprazol Pantoprazol No 1{table QD Pantoprazo e [...] ne-DM 6.25-15 6.25-15 6.25-15 MG/5ML MG/5ML MG/5ML Marshall Marshall No Marshall lamoTRIgine lamoTRIgine No 1{table QD lamoTRIgin 100 [...] HCl 10 MG Effexor Effexor No Effexor Marshall Marshall No Marshall Pantoprazol Pantoprazol No Pantoprazo e Sodium 40 [...] ne-DM 6.25-15 6.25-15 6.25-15 MG/5ML MG/5ML MG/5ML Marshall Marshall No Marshall Pantoprazol Pantoprazol No Pantoprazo e Sodium 40 [...] HCl 4 MG t} HCl 4 MG Marshall Marshall No Marshall Effexor Effexor No Effexor Geodon 60 Geodon [...] MG 200 MG t} e 200 MG Marshall Marshall No Marshall Propranolol Propranolol No 1{table BID Propranolo HCl [...] MG 200 MG t} e 200 MG Marshall Marshall No Marshall Propranolol Propranolol No 1{table BID Propranolo HCl [...] MG le_with e HCl 60 _food} MG Marshall Marshall No Marshall lamoTRIgine lamoTRIgine No 1{table QD lamoTRIgin 200 [...] MG le_with e HCl 60 _food} MG Marshall Marshall No Marshall lamoTRIgine lamoTRIgine No 1{table QD lamoTRIgin 200 [...] MG le_with e HCl 60 _food} MG Marshall Marshall No Marshall lamoTRIgine lamoTRIgine No 1{table QD lamoTRIgin 200 [...] MG le_with e HCl 60 _food} MG Marshall Marshall No Marshall lamoTRIgine lamoTRIgine No 1{table QD lamoTRIgin 200 [...] HCl 10 MG l HCl 10 MG Marshall Marshall No Marshall Iron Iron No Iron Supplement Supplement Supplement [...] HCl 10 MG l HCl 10 MG Marshall Marshall No Marshall LORazepam LORazepam No 1{table QD LORazepam 0.5 MG 0.5 MG t_at_be 0.5 MG dtime_a s_neede d} hydrOXYzine hydrOXYzine No 1{table hydrOXYzin HCl 50 MG HCl 50 MG t_as_ne e HCl 50 eded} MG Propranolol Propranolol No 1{table BID Propranolo HCl 20 MG HCl 20 MG t_on_an l HCl 20 _empty_ MG stomach } Gabapentin Gabapentin No Gabapentin 600 MG 600 MG 600 MG Marshall Marshall No Marshall Pantoprazol Pantoprazol No 1{table QD Pantoprazo e [...] MG t_with_ e HCl 75 food} MG Marshall Marshall No Marshall Ziprasidone Ziprasidone No 2{capsu BID Ziprasidon HCl [...] MG t_with_ e HCl 75 food} MG Marshall Marshall No Marshall Ziprasidone Ziprasidone No 2{capsu BID Ziprasidon HCl [...] MG t_with_ e HCl 75 food} MG Marshall Marshall No Marshall Ziprasidone Ziprasidone No 2{capsu BID Ziprasidon HCl [...] HCl 20 MG l HCl 20 MG Marshall Marshall No Marshall Gabapentin Gabapentin No Gabapentin 600 MG 600 [...] Sodium 50 MCG 50 MCG 50 MCG Marshall Marshall No Marshall Pantoprazol Pantoprazol No Pantoprazo e Sodium 40 [...] Gabapentin 600 MG 600 MG 600 MG Marshall Marshall No Marshall Amitiza 24 Amitiza 24 No 1{capsu BID [...] t} le Sodium MG MG 40 MG Marshall Marshall No Marshall Vitamin D3 Vitamin D3 No 1{capsu QD [...] t} le Sodium MG MG 40 MG Marshall Marshall No Marshall Vitamin D3 Vitamin D3 No 1{capsu QD [...] Sodium 50 MCG 50 MCG 50 MCG Marshall Marshall No Marshall Vitamin D3 Vitamin D3 No 1{capsu QD [...] HCl 4 MG n HCl 4 MG Marshall Marshall No Marshall Promethazin Promethazin No QID Promethazi e-DM e-DM ne-DM 6.25-15 6.25-15 6.25-15 MG/5ML MG/5ML MG/5ML Marshall Marshall No Marshall Geodon 60 Geodon 60 No 1{capsu BID [...] 1 capsule Co mmon Platt with food [facility] Pantoprazol Pantoprazol Yes Davin 1 tablet Common e Sodium e Sodium Platt [facility] Propranolol Propranolol Yes Davin 1 tablet Common HCl HCl Platt on an Spirit empty - [facility]I stomach [facility] Vitamin D3 Vitamin D3 Yes Davin 1 capsule Common Platt [facility] Levothyroxi Levothyroxi Yes Davin 1 tablet Common ne Sodium ne Sodium Platt on an Spi rit empty - CHI stomach in [facility] Promethazin Promethazin Yes Davin 5 ml as Common e-DM e-DM Platt needed Spirit Nausea/Vom - [facility] iting [facility] Clonazepam Clonazepam Yes Davin 1 tablet Common Platt at bedtime [facility] Geodon Geodon Yes Davin 1 capsule Comm on Platt with food [facility] baclofen baclofen Yes Davin 1 tab as C ommon Platt needed for [facility] pain [facility] Iron Iron Yes Davin not Common Supplement Supplement Platt defined [facility] Ziprasidone Ziprasidone Yes Davin 1 capsule Common HCl HCl Platt with food [facility] Tizanidine Tizanidine Yes Davin 1 tablet Common HCl HCl Platt [facility] HydrOXYzine HydrOXYzine Yes Davin 1 tablet Common HCl HCl Platt [facility] Gabapentin Gabapentin Yes Davin 1 tablet Common Platt am and 2 Spirit tabs pm [facility] Gabapentin Gabapentin Yes Davin TAKE ONE Common Platt TABLET BY [facility] MOUTH - [facility] AND THEN Medical TAKE TWO Center TABLETS BY MOUTH EVERY EVENING Wellbutrin Wellbutrin Yes Davin 1 tablet Common XL XL Platt in the [facility] morning [facility] Fluoxetine Fluoxetine Yes Davin 1 capsule Common HCl HCl Platt [facility] Pantoprazol Pantoprazol No Pantoprazo e Sodium 40 [...] HCl 10 MG l HCl 10 MG Marshall Marshall No Marshall FLUoxetine FLUoxetine No 1{capsu QD FLUoxetine HCl 60 MG HCl 60 MG le} HCl 60 MG Vitamin D3 Vitamin D3 No 1{capsu QD Vitamin D3 2000 UNIT 2000 UNIT le} 2000 UNIT Effexor Effexor No Effexor Immunizations Ordered Filled Immunization Date Status Comments Sourc e Immunization Name Name Moderna COVID-19 Moderna COVID-19 2022-11-20 Completed Co mmon [facility] - Vaccine, Bivalent Vaccine, Bivalent 08:50:00 [facility] Moderna COVID-19 Moderna COVID-19 2021-02-14 Completed [facility] - Vaccine Vaccine 09:03:00 [facility] Moderna COVID-19 Moderna COVID-19 2021-02-14 Completed [facility] - Vaccine Vaccine 09:03:00 [facility] Moderna COVID-19 Moderna COVID-19 2021-02-14 Completed [facility] - Vaccine Vaccine 09:03:00 [facility] Moderna COVID-19 Moderna COVID-19 2021-02-14 Completed [facility] - Vaccine Vaccine 09:03:00 [facility] Moderna COVID-19 Moderna COVID-19 2021-02-14 Completed [facility] - Vaccine Vaccine 09:03:00 [facility] Moderna COVID-19 Moderna COVID-19 2021-02-14 Completed [facility] - Vaccine Vaccine 09:03:00 [facility] Moderna COVID-19 Moderna COVID-19 2021-02-14 Completed [facility] - Vaccine Vaccine 09:03:00 [facility] Moderna COVID-19 Moderna COVID-19 2021-02-14 Completed [facility] - Vaccine Vaccine 09:03:00 [facility] Moderna COVID-19 Moderna COVID-19 2021-02-14 Completed [facility] - Vaccine Vaccine 09:03:00 [facility] Moderna COVID-19 Moderna COVID-19 2021-02-14 Completed Co m[facility] - Vaccine Vaccine 09:03:00 [facility] Moderna COVID-19 Moderna COVID-19 2021-02-14 Completed Co m[facility] - Vaccine Vaccine 09:03:00 [facility] Moderna COVID-19 Moderna COVID-19 2021-02-14 Completed Co m[facility] - Vaccine Vaccine 09:03:00 [facility] Moderna COVID-19 Moderna COVID-19 2021-02-14 Completed Co m[facility] - Vaccine Vaccine 09:03:00 [facility] Moderna COVID-19 Moderna COVID-19 2021-02-14 Completed Co m[facility] - Vaccine Vaccine 09:03:00 [facility] Moderna COVID-19 Moderna COVID-19 2021-02-14 Completed Co m[facility] - Vaccine Vaccine 09:03:00 [facility] Moderna COVID-19 Moderna COVID-19 2021-02-14 Completed Co m[facility] - Vaccine Vaccine 09:03:00 [facility] Moderna COVID-19 Moderna COVID-19 2021-02-14 Completed Co m[facility] - Vaccine Vaccine 09:03:00 [facility] Moderna COVID-19 Moderna COVID-19 2021-02-14 Completed Co mmon [facility] - Vaccine Vaccine 09:03:00 [facility] Moderna COVID-19 Moderna COVID-19 2021-02-14 Completed Co m[facility] - Vaccine Vaccine 09:03:00 [facility] Moderna COVID-19 Moderna COVID-19 2021-02-14 Completed Co m[facility] - Vaccine Vaccine 09:03:00 [facility] Moderna COVID-19 Moderna COVID-19 2021-02-14 Completed Co m[facility] - Vaccine Vaccine 09:03:00 [facility] Moderna COVID-19 Moderna COVID-19 2021-02-14 Completed Co [facility] - Vaccine Vaccine 09:03:00 [facility] Moderna COVID-19 Moderna COVID-19 2021-02-14 Completed Co [facility] - Vaccine Vaccine 09:03:00 [facility] Moderna COVID-19 Moderna COVID-19 2021-02-14 Completed [facility] - Vaccine Vaccine 09:03:00 [facility] Moderna COVID-19 Moderna COVID-19 2021-02-14 Completed Co mmon Spirit - Vaccine Vaccine 09:03:00 [facility] SARS-COV-2 COVID-19 2021-02-10 Completed Unive rsity of MODERNA VACCINE 00:00:00 [facility] ical Branch SARS-COV-2 COVID-19 2021-02-10 Completed Unive rsity of MODERNA VACCINE 00:00:00 [facility] ical Branch SARS-COV-2 COVID-19 2021-02-10 Completed Unive rsity of MODERNA VACCINE 00:00:00 [facility] ical Branch SARS-COV-2 COVID-19 2021-02-10 Completed Unive rsity of MODERNA VACCINE 00:00:00 [place] [facility] ical Branch SARS-COV-2 COVID-19 2021-02-10 Completed Unive rsity of MODERNA 12+ YRS 00:00:00 [place] ical VACCINE Branch SARS-COV-2 COVID-19 2021-02-10 Completed Unive rsity of MODERNA 12+ YRS 00:00:00 [place] [facility] ical VACCINE Branch SARS-COV-2 COVID-19 2021-02-10 Completed Unive rsity of MODERNA 12+ YRS 00:00:00 [place] [facility] ical VACCINE Branch SARS-COV-2 COVID-19 2021-02-10 Completed Unive rsity of MODERNA VACCINE 00:00:00 [facility] ical Branch SARS-COV-2 COVID-19 2021-02-10 Completed Unive rsity of MODERNA 12+ YRS 00:00:00 [facility] ical VACCINE Branch SARS-COV-2 COVID-19 2021-02-10 Completed Unive rsity of MODERNA 12+ YRS 00:00:00 [facility] ical VACCINE Branch SARS-COV-2 COVID-19 2021-02-10 Completed Unive rsity of MODERNA 12+ YRS 00:00:00 [facility] ical VACCINE Branch SARS-COV-2 COVID-19 2021-02-10 Completed Unive rsity of MODERNA VACCINE 00:00:00 [facility] ical Branch SARS-COV-2 COVID-19 2021-02-10 Completed Unive rsity of MODERNA VACCINE 00:00:00 [facility] Moderna COVID-19 Moderna COVID-19 2021-01-13 Completed Co mmon Spirit - Vaccine Vaccine 16:57:00 [facility] Moderna COVID-19 Moderna COVID-19 2021-01-13 Completed Co mmon [facility] - Vaccine Vaccine 16:57:00 [facility] Moderna COVID-19 Moderna COVID-19 2021-01-13 Completed [facility] - Vaccine Vaccine 16:57:00 [facility] Moderna COVID-19 Moderna COVID-19 2021-01-13 Completed [facility] - Vaccine Vaccine 16:57:00 [facility] Moderna COVID-19 Moderna COVID-19 2021-01-13 Completed [facility] - Vaccine Vaccine 16:57:00 [facility] Moderna COVID-19 Moderna COVID-19 2021-01-13 Completed [facility] - Vaccine Vaccine 16:57:00 [facility] Moderna COVID-19 Moderna COVID-19 2021-01-13 Completed [facility] - Vaccine Vaccine 16:57:00 [facility] Moderna COVID-19 Moderna COVID-19 2021-01-13 Completed [facility] - Vaccine Vaccine 16:57:00 [facility] Moderna COVID-19 Moderna COVID-19 2021-01-13 Completed [facility] - Vaccine Vaccine 16:57:00 [facility] Moderna COVID-19 Moderna COVID-19 2021-01-13 Completed [facility] - Vaccine Vaccine 16:57:00 [facility] Moderna COVID-19 Moderna COVID-19 2021-01-13 Completed [facility] - Vaccine Vaccine 16:57:00 [facility] Moderna COVID-19 Moderna COVID-19 2021-01-13 Completed [facility] - Vaccine Vaccine 16:57:00 [facility] Moderna COVID-19 Moderna COVID-19 2021-01-13 Completed [facility] - Vaccine Vaccine 16:57:00 [facility] Moderna COVID-19 Moderna COVID-19 2021-01-13 Completed [facility] - Vaccine Vaccine 16:57:00 [facility] Moderna COVID-19 Moderna COVID-19 2021-01-13 Completed [facility] - Vaccine Vaccine 16:57:00 [facility] Moderna COVID-19 Moderna COVID-19 2021-01-13 Completed [facility] - Vaccine Vaccine 16:57:00 [facility] Moderna COVID-19 Moderna COVID-19 2021-01-13 Completed [facility] - Vaccine Vaccine 16:57:00 [facility] Moderna COVID-19 Moderna COVID-19 2021-01-13 Completed [facility] - Vaccine Vaccine 16:57:00 [facility] Moderna COVID-19 Moderna COVID-19 2021-01-13 Completed [facility] - Vaccine Vaccine 16:57:00 [facility] Moderna COVID-19 Moderna COVID-19 2021-01-13 Completed [facility] - Vaccine Vaccine 16:57:00 [facility] Moderna COVID-19 Moderna COVID-19 2021-01-13 Completed [facility] - Vaccine Vaccine 16:57:00 [facility] Moderna COVID-19 Moderna COVID-19 2021-01-13 Completed [facility] - Vaccine Vaccine 16:57:00 [facility] Moderna COVID-19 Moderna COVID-19 2021-01-13 Completed Co [facility] - Vaccine Vaccine 16:57:00 [facility] Moderna COVID-19 Moderna COVID-19 2021-01-13 Completed [facility] - Vaccine Vaccine 16:57:00 [facility] Moderna COVID-19 Moderna COVID-19 2021-01-13 Completed [facility] - Vaccine Vaccine 16:57:00 [facility] SARS-COV-2 COVID-19 2021-01-13 Completed Unive rsity [...] Completed Unive rsity of MODERNA VACCINE 00:00:00 [facility] ical Branch SARS-COV-2 COVID-19 2021-01-13 Completed Unive rsity of MODERNA VACCINE 00:00:00 [facility] Branch Vital Signs Vital Name Observation Time Observation Value Comments Source height 2022-09-22 11:10:00 61.5 [in_i] [facility] weight 2022-09-22 11:10:00 143 [facility] temperature 2022-09-22 11:10:00 98 [degF] [facility] bmi 2022-09-22 11:10:00 26.58 kg/m2 [facility] blood pressure 2022-09-22 11:10:00 128 mm[Hg] [facility] - systolic [facility] blood pressure 2022-09-22 11:10:00 76 mm[Hg] [facility] - diastolic [facility] height 2022-09-06 14:30:00 61.5 [in_i] [facility] weight 2022-09-06 14:30:00 145 [lb_av] [facility] temperature 2022-09-06 14:30:00 97.4 [degF] [facility] bmi 2022-09-06 14:30:00 26.95 kg/m2 [facility] blood pressure 2022-09-06 14:30:00 125 mm[Hg] [facility] - systolic [facility] blood pressure 2022-09-06 14:30:00 84 mm[Hg] [facility] - diastolic [facility] height 2022-07-29 14:30:00 61.5 [in_i] [facility] weight 2022-07-29 14:30:00 145 [lb_av] [facility] temperature 2022-07-29 14:30:00 97.0 [degF] [facility] S pirit [facility] 2022-07-29 14:30:00 26.95 kg/m2 Common S pirit - [facility] blood pressure 2022-07-29 14:30:00 128 mm[Hg] [facility] - systolic [facility] blood pressure 2022-07-29 14:30:00 82 mm[Hg] [facility] - diastolic [facility] Systolic blood 2022-07-26 20:00:00 161 mm[Hg] Univer sity of [facility] Diastolic blood 2022-07-26 20:00:00 94 mm[Hg] Unive rsity of [facility] Heart rate 2022-07-26 20:00:00 78 /min [facility] Oxygen saturation in 2022-07-26 20:00:00 100 /min [facility] Arterial blood by [facility] Pulse oximetry Branch Respiratory rate 2022-07-26 19:40:00 16 /min [facility] Body temperature 2022-07-26 16:42:00 36.89 Sarah [facility] Body height 2022-07-26 16:42:00 157.5 cm [facility] Body weight 2022-07-26 16:42:00 72.576 kg [facility] BMI 2022-07-26 16:42:00 29.26 kg/m2 [facility] height 2022-07-09 09:30:00 61.5 [in_i] [facility] weight 2022-07-09 09:30:00 145 [lb_av] Common S pirit [facility] temperature 2022-07-09 09:30:00 97.1 [degF] Common S pirit [facility] bmi 2022-07-09 09:30:00 26.95 kg/m2 Common S pirit [facility] blood pressure 2022-07-09 09:30:00 100 mm[Hg] [facility] - systolic [facility] blood pressure 2022-07-09 09:30:00 68 mm[Hg] [facility] - diastolic [facility] height 2022-06-30 15:00:00 61.5 [in_i] Common [facility] weight 2022-06-30 15:00:00 142 [lb_av] [facility] temperature 2022-06-30 15:00:00 97.9 [degF] [facility] bmi 2022-06-30 15:00:00 26.39 kg/m2 [facility] oximetry 2022-06-30 15:00:00 98 % [facility] respiratory rate 2022-06-30 15:00:00 16 /min Comm on Spirit [facility] blood pressure 2022-06-30 15:00:00 145 mm[Hg] Common [facility] systolic [facility] blood pressure 2022-06-30 15:00:00 70 mm[Hg] Common [facility] diastolic [facility] Respiratory rate 2022-06-21 12:47:00 16 /min [facility] 2022-06-21 12:47:00 94 /min [facility] Arterial blood by [facility] Pulse oximetry Branch Systolic blood 2022-06-21 12:43:00 102 mm[Hg] Univer sity of [facility] Diastolic blood 2022-06-21 12:43:00 59 mm[Hg] Unive [facility] Heart rate 2022-06-21 12:43:00 70 /min [facility] Body temperature 2022-06-21 12:43:00 35.72 Sarah [facility] weight 2022-06-21 08:14:00 72.666 kg [facility] BMI 2022-06-21 08:14:00 29.30 kg/m2 [facility] Body height 2022-06-17 03:46:00 157.5 cm [facility] height 2022-06-09 13:00:00 61.5 [in_i] [facility] weight 2022-06-09 13:00:00 148 [lb_av] [facility] temperature 2022-06-09 13:00:00 98.7 [degF] Common [facility] bmi 2022-06-09 13:00:00 27.51 kg/m2 [facility] oximetry 2022-06-09 13:00:00 96 % [facility] respiratory rate 2022-06-09 13:00:00 16 /min Comm on [facility] blood pressure 2022-06-09 13:00:00 138 mm[Hg] Common [facility] - systolic [facility] blood pressure 2022-06-09 13:00:00 80 mm[Hg] Common [facility] - diastolic [facility] height 2022-06-09 13:00:00 62 [in_i] [facility] weight 2022-06-09 13:00:00 148 [lb_av] [facility] temperature 2022-06-09 13:00:00 98.7 [degF] [facility] bmi 2022-06-09 13:00:00 27.07 kg/m2 [facility] oximetry 2022-06-09 13:00:00 96 % [facility] respiratory rate 2022-06-09 13:00:00 16 /min Comm on [facility] blood pressure 2022-06-09 13:00:00 138 mm[Hg] Common [facility] - systolic [facility] blood pressure 2022-06-09 13:00:00 80 mm[Hg] Common [facility] - diastolic [facility] WEIGHT 2022-04-14 13:36:00 65.454 kg height 2022-02-09 13:10:00 62 [in_i] [facility] weight 2022-02-09 13:10:00 148.8 [lb_av] Common [facility] temperature 2022-02-09 13:10:00 96.6 [degF] [facility] bmi 2022-02-09 13:10:00 27.21 kg/m2 [facility] oximetry 2022-02-09 13:10:00 100 % [facility] respiratory rate 2022-02-09 13:10:00 18 /min Comm on [facility] blood pressure 2022-02-09 13:10:00 131 mm[Hg] Common [facility] - systolic [facility] blood pressure 2022-02-09 13:10:00 69 mm[Hg] [facility] - [facility] HEIGHT 2022-01-04 10:22:00 157.5 cm WEIGHT 2022-01-04 10:22:00 67.087 kg height 2021-10-12 14:10:00 62 [in_i] [facility] weight 2021-10-12 14:10:00 155 [lb_av] [facility] temperature 2021-10-12 14:10:00 98 [degF] [facility] bmi 2021-10-12 14:10:00 28.35 kg/m2 [facility] blood pressure 2021-10-12 14:10:00 121 mm[Hg] Common [facility] - systolic [facility] blood pressure 2021-10-12 14:10:00 76 mm[Hg] Common [facility] - diastolic [facility] Heart rate 2021-09-22 18:07:00 78 /min Universi ty [facility] Systolic blood 2021-09-22 18:06:00 117 mm[Hg] Univer sity of [facility] Diastolic blood 2021-09-22 18:06:00 65 mm[Hg] [facility] Oxygen saturation in 2021-09-22 18:06:00 100 /min [facility] Arterial blood by [facility] Pulse oximetry Branch Respiratory rate 2021-09-22 18:05:00 21 /min [facility] Body temperature 2021-09-22 17:42:00 36.5 Sarah [facility] Body height 2021-09-14 14:52:00 157.5 cm [facility] Body weight 2021-09-14 14:52:00 70.3 kg [facility] BMI 2021-09-14 14:52:00 28.34 kg/m2 [facility] Heart rate 2021-09-22 18:01:00 62 /min [facility] Respiratory rate 2021-09-22 18:01:00 30 /min Univ ers[facility] Oxygen saturation in 2021-09-22 18:01:00 100 /min [facility] blood [facility] oxim[facility] Systolic blood 2021-09-22 17:56:00 105 mm[Hg] Univer sity of pressure [facility] Diastolic blood 2021-09-22 17:56:00 62 mm[Hg] Unive rsity of pressure [facility] Body temperature 2021-09-22 17:42:00 36.5 Sarah [facility] Body height 2021-09-14 14:52:00 157.5 cm [facility] Body weight 2021-09-14 14:52:00 70.3 kg [facility] BMI 2021-09-14 14:52:00 28.34 kg/m2 [facility] Heart rate 2021-08-20 18:49:00 62 /min [facility] Oxygen saturation in 2021-08-20 18:49:00 100 /min University of Arterial blood by [facility] carlos Pulse oximetry Branch Respiratory rate 2021-08-20 18:47:00 19 /min Univ ers[facility] Systolic blood 2021-08-20 18:45:00 127 mm[Hg] Univer sity of pressure [facility] Diastolic blood 2021-08-20 18:45:00 74 mm[Hg] Unive rsity of pressure [facility] Body temperature 2021-08-20 18:33:00 36.39 Sarah [facility] Body height 2021-08-20 17:49:00 157.5 cm [facility] Body weight 2021-08-20 17:49:00 70.308 kg [facility] BMI 2021-08-20 17:49:00 28.35 kg/m2 [facility] Heart rate 2021-08-20 18:49:00 62 /min [facility] Oxygen saturation in 2021-08-20 18:49:00 100 /min [facility] Arterial blood by [facility] Pulse oximetry Branch Respiratory rate 2021-08-20 18:47:00 19 /min [facility] Systolic blood 2021-08-20 18:45:00 127 mm[Hg] Univer sity of [facility] Diastolic blood 2021-08-20 18:45:00 74 mm[Hg] Unive rsity of [facility] Body temperature 2021-08-20 18:33:00 36.39 Sarah [facility] Body height 2021-08-20 17:49:00 157.5 cm [facility] Body weight 2021-08-20 17:49:00 70.308 kg [facility] BMI 2021-08-20 17:49:00 28.35 kg/m2 [facility] Systolic blood 2022-04-14 13:36:00 118 mm[Hg] [facility] Diastolic blood 2022-04-14 13:36:00 77 mm[Hg] [facility] Heart rate 2022-04-14 13:36:00 69 /min [facility] Body temperature 2022-04-14 13:36:00 36.67 Sarah [facility] Body weight 2022-04-14 13:36:00 65.454 kg [facility] BMI 2022-04-14 13:36:00 26.39 kg/m2 [facility] Procedures Procedure Date / Time Performing Source Performed Clinician MR LUMBAR SPINE WO CONTRAST 2022-09-23 Shan Santana Uni versity of 21:10:02 S [facility] ASSIGNMENT OF BENEFITS 2022-09-23 Doctor Universit y of 20:12:40 Unassigned, No [facility] COMP. METABOLIC PANEL ([id number]) 2022-07-26 Nilay Lennon iversity of 18:57:00 [facility] CBC WITH DIFF 2022-07-26 Nilay Lennon of 18:57:00 [facility] URINALYSIS 2022-07-26 Nilay Lennon of 18:57:00 [facility] CT ABDOMEN PELVIS WO CONTRAST 2022-07-26 Nilay Lennon iversity of 18:03:32 [facility] CONSENT/REFUSAL FOR DIAGNOSIS AND 2022-07-26 [facility] of TREATMENT 16:32:59 Unassigned, No [facility] HEPATIC FUNCTION PANEL ([id number]) 2022-06-21 Tika Cummings niversity of (ALB,T.PRO,BILI 11:05:00 [facility] Medical T,BU/BC,ALT,AST,ALK PHOS) [place] BASIC METABOLIC PANEL (NA, K, CL, 2022-06-21 Emiliano [facility] of CO2, GLUCOSE, BUN, CREATININE, CA) 11:05:00 [facility] URINALYSIS 2022-06-20 Emiliano [facility] of 22:41:00 [facility] BASIC METABOLIC PANEL (NA, K, CL, 2022-06-20 Emiliano, [facility] of CO2, GLUCOSE, BUN, CREATININE, CA) 08:54:00 [facility] CBC WITH DIFF 2022-06-20 [facility] 08:54:00 [facility] HEPATIC FUNCTION PANEL ([id number]) 2022-06-19 Tika Cummings niversity of (ALB,T.PRO,BILI 09:22:00 [facility] T,BU/BC,ALT,AST,ALK PHOS) [place] BASIC METABOLIC PANEL (NA, K, CL, 2022-06-19 Emiliano [facility] of CO2, GLUCOSE, BUN, CREATININE, CA) 09:22:00 [facility] CBC WITH DIFF 2022-06-19 Emiliano [facility] of 09:22:00 [facility] BLOOD CULTURE SCREEN 2022-06-19 Jesus Mora [place] of 03:22:00 [facility] BLOOD CULTURE SCREEN 2022-06-19 Jesus Mora [place] of 03:16:00 [facility] XR CHEST 1 VW 2022-06-19 Jesus Mora of 01:50:09 [facility] HEPATIC FUNCTION PANEL ([id number]) 2022-06-18 Tika Cummings niversity of (ALB,T.PRO,BILI 10:14:00 Angela [facility] T,BU/BC,ALT,AST,ALK PHOS) Branch PHOSPHORUS 2022-06-17 [facility] 09:00:00 [facility] MAGNESIUM 2022-06-17 Wade, [facility] of 09:00:00 [facility] TROPONIN I 2022-06-17 Wade, [facility] of 09:00:00 [facility] THYROID STIMULATING HORMONE 2022-06-17 Wade, [facility] ersity of 09:00:00 [facility] COMP. METABOLIC PANEL ([id number]) 2022-06-17 Wade, [facility] iversity of 09:00:00 [facility] LIPID PANEL ([id number])(TOTAL 2022-06-17 [facility] CHOLESTEROL, TRIGLYCERIDES, HDL) 09:00:00 [facility] CBC WITH DIFF 2022-06-17 Wade [facility] of 09:00:00 [facility] PROTHROMBIN TIME / INR 2022-06-17 [facility] 09:[facility]00 [facility] HEPATITIS B SURFACE ANTIBODY 2022-06-17 Jesus Mora [facility] versity of 09:00:00 [facility] HEPATITIS B SURFACE ANTIGEN 2022-06-17 Jesus Mora [facility] ersity of 09:00:00 [facility] HCV ANTIBODY 2022-06-17 Jesus Mora [place] of 09:00:00 [facility] HBC ANTIBODY (IGM & IGG) 2022-06-17 Jesus Mora [facility] ity of 09:00:00 [facility] LAMOTRIGINE, LEVEL 2022-06-17 Wade [facility] of 09:00:00 [facility] N-TERMINAL PRO-BNP 2022-06-17 Wade [facility] of 09:00:00 [facility] PROCALCITONIN 2022-06-17 Wade [facility] of 09:00:00 [facility] CT ABDOMEN PELVIS W CONTRAST 2022-06-17 Hill Sawyer Uni versity of 00:50:10 [facility] CBC WITH DIFF 2022-06-17 Hill Sawyer University of 00:24:00 [facility] GLYCOSYLATED HEMOGLOBIN (A1C) 2022-06-17 Herbie Olvera Un iversity of 00:24:00 [facility] HB ECG ROUTINE & RHYTHM STRIP 2022-06-17 Hill Sawyer Un iversity of 00:06:46 [facility] BLOOD CULTURE SCREEN 2022-06-17 Hill Sawyer [place] of 00:00:00 [facility] LIPASE 2022-06-17 Hill Sawyer [place] of 00:00:00 [facility] MAGNESIUM 2022-06-17 Hill Sawyer [place] of 00:00:00 [facility] TROPONIN I 2022-06-17 Hill Sawyer [place] of 00:00:00 [facility] COMP. METABOLIC PANEL ([id number]) 2022-06-17 Hill Sawyer Un iversity of 00:00:00 [facility] URINALYSIS 2022-06-17 Hill Sawyer [place] of 00:00:00 [facility] COVID-19 (ID NOW RAPID TESTING) 2022-06-17 Hill Sawyer [place] of 00:00:00 [facility] LAB ONLY COVID INTERPRETATION 2022-06-17 Hill Sawyer Un iversity of 00:00:00 [facility] NOTICE OF PRIVACY PRACTICES 2022-06-16 Doctor Univ ersity of 22:38:45 Unassigned, No [facility] CONSENT/REFUSAL FOR DIAGNOSIS AND 2022-06-16 Doctor [facility] 22:35:24 Unassigned, No [facility] HB CREATININE BLOOD 2021-10-16 Carlton Echeverria [place] f 21:37:00 [facility] NOTICE OF BILLING PRACTICES FOR 2021-10-16 Doctor [facility] MEDICARE PATIENTS 21:05:05 Unassigned, No [facility] PATIENT FINANCIAL POLICY 2021-10-16 Doctor Un iversity of 21:04:40 Unassigned, No [facility] NO SHOW OR MISSED APPOINTMENT 2021-10-16 Doctor Un iversity of POLICY ACKNOWLEDGEMENT 21:04:21 Unassigned, No [place] [facility] CONSENT/REFUSAL FOR DIAGNOSIS AND 2021-10-16 Doctor [facility] TREATMENT 21:03:59 Unassigned, No [facility] ASSIGNMENT OF BENEFITS 2021-10-16 Doctor Universit y of 21:03:40 Unassigned, No [facility] COLONOSCOPY 2021-09-22 Carlton Echeverria [facility] 16:38:00 [facility] ESOPHAGOGASTRODUODENOSCOPY 2021-09-22 Carlton Echeverria [facility] of 16:38:00 [facility] COLONOSCOPY (ENDO) 2021-09-22 Platt, [facility] 16:33:27 [facility] COLONOSCOPY (ENDO) 2021-09-22 [facility] 16:33:27 [facility] EGD (ENDO) 2021-09-22 Platt [facility] 16:23:06 [facility] EGD (ENDO) 2021-09-22 [facility] 16:23:06 [facility] DAY SURGERY - ADC 2021-09-22 [place] of 06:01:00 Unassigned, No [facility] EXTERNAL PROVIDER RECORDS 2021-09-16 [facility] 06:01:00 Unassigned, No [place] [facility] EXTERNAL PROVIDER RECORDS 2021-09-16 Doctor Univer sity of 06:01:00 Unassigned, No [facility] EXTERNAL PROVIDER RECORDS 2021-09-14 [facility] 06:01:00 Unassigned, No [facility] EXTERNAL PROVIDER RECORDS 2021-09-14 Doctor Univer sity of 06:01:00 Unassigned, No [facility] COLONOSCOPY (ENDO) 2021-08-20 Carlton Echeverria [facility] 18:15:37 [facility] COLONOSCOPY 2021-08-20 Carlton Echeverria [facility] 18:01:00 [facility] PATIENT QUESTIONNAIRE 2021-08-20 Doctor [place] of 06:01:00 Unassigned, No [place] [facility] EXTERNAL PROVIDER RECORDS 2021-08-03 [facility] 05:01:00 Unassigned, No [facility] EXTERNAL PROVIDER RECORDS 2021-08-03 Doctor Univer sity of 05:01:00 Unassigned, No [facility] Plan of Care Planned Activity Planned Date Details Comments Source Future Scheduled 2031-09-22 Screening for malignant [facility] Test 00:00:00 neoplasm of colon Medical Ce nter (procedure) [code = 433733353] Future Scheduled 2031-09-22 Screening for malignant [facility] Test 00:00:00 neoplasm of colon Medical Ce nter (procedure) [code = 052818346] Future Scheduled 2031-09-22 Screening for malignant [facility] Test 00:00:00 neoplasm of colon Medical Ce nter (procedure) [code = 699331869] Future Scheduled 2031-09-22 Screening for malignant [facility] Test 00:00:00 neoplasm of colon Medical Ce nter (procedure) [code = 349310498] Future Scheduled 2031-09-22 Screening for malignant [facility] Test 00:00:00 neoplasm of colon Medical Ce nter (procedure) [code = 480933837] Future Scheduled 2031-09-22 Screening for malignant [facility] Test 00:00:00 neoplasm of colon Medical Ce nter (procedure) [code = 143978717] Future Scheduled 2031-09-22 Screening for malignant [facility] Test 00:00:00 neoplasm of colon Medical Ce nter (procedure) [code = 414738407] Future Scheduled 2031-09-22 Screening for malignant [facility] Test 00:00:00 neoplasm of colon Medical Ce nter (procedure) [code = 070734275] Future Scheduled 2031-09-22 Screening for malignant [facility] Test 00:00:00 neoplasm of colon Medical Ce nter (procedure) [code = 333921057] Future Scheduled 2031-09-22 Screening for malignant [facility] Test 00:00:00 neoplasm of colon Medical Ce nter (procedure) [code = 814480472] Future Scheduled 2023-06-03 Influenza Vaccine (#1) [facility] Future Scheduled 2013-12-26 SHINGLES VACCINES ([address] [facility] 00:00:00 2) [facility] of 2)] Future Scheduled 2013-12-26 SHINGLES VACCINES ([address] [facility] 00:00:00 2) [facility] (1 of 2)] Future Scheduled 2013-12-26 SHINGLES VACCINES ([address] [facility] 00:00:00 2) [facility] of 2)] Future Scheduled 2013-12-26 SHINGLES VACCINES ([address] [facility] 00:00:00 2) [facility] Future Scheduled 2008-12-26 Lipid panel (procedure) [facility] 00:00:00 [code = 25430786] Medical Ce nter Future Scheduled 2008-12-26 Lipid panel (procedure) [facility] 00:00:00 [code = 08761263] Medical Ce nter Future Scheduled 2008-12-26 Lipid panel (procedure) [facility] 00:00:00 [code = 83974290] Medical Ce nter Future Scheduled 2008-12-26 Lipid panel (procedure) [facility] 00:00:00 [code = 07462897] Medical Ce nter Future Scheduled 2008-12-26 Lipid panel (procedure) [facility] 00:00:00 [code = 12295934] Medical Ce nter Future Scheduled 1984-12-26 Screening for malignant [facility] 00:00:00 neoplasm of cervix Medical C enter (procedure) [code = 980491044] Future Scheduled 1984-12-26 Screening for malignant [facility] 00:00:00 neoplasm of cervix Medical C enter (procedure) [code = 808057594] Future Scheduled 1984-12-26 Screening for malignant [facility] 00:00:00 neoplasm of cervix Medical C enter (procedure) [code = 704251162] Future Scheduled 1984-12-26 Screening for malignant [facility] 00:00:00 neoplasm of cervix Medical C enter (procedure) [code = 682826398] Future Scheduled 1984-12-26 Screening for malignant [facility] 00:00:00 neoplasm of cervix Medical C enter (procedure) [code = 552715839] Future Scheduled 1982-12-26 DTAP/TDAP/TD VACCINES (1 [facility] [...] screening Medical [facility] er (procedure) [code = 701992356] Future Scheduled 1978-12-[address] [facility] 00:00:00 virus screening Medical Cent er (procedure) [code = 737738599] Future Scheduled 1963 Screening for malignant [facility] 00:00:00 neoplasm of breast Medical C enter (procedure) [code = 855139751] Future Scheduled 1963 CT Colonography (combo) [facility] 00:00:00 [code = CT Colonography [facility] (combo)] Future Scheduled 1963 Screening for malignant [facility] 00:00:00 neoplasm of colon Medical Ce nter (procedure) [code = 987458403] Future Scheduled 1963 Screening for malignant [facility] 00:00:00 neoplasm of colon Medical Ce nter (procedure) [code = 211639444] Future Scheduled 1963 Sigmoidoscopy [code = [facility]oscopy] Medical Cente r Future Scheduled 1963 Screening for malignant [facility] 00:00:00 neoplasm of breast Medical C enter (procedure) [code = 548276814] Future Scheduled 1963 CT Colonography (combo) [facility] 00:00:00 [code = CT Colonography [facility] (combo)] Future Scheduled 1963 Screening for malignant [facility] 00:00:00 neoplasm of colon Medical Ce nter (procedure) [code = 337562563] Future Scheduled 1963 Screening for malignant [facility] 00:00:00 neoplasm of colon Medical Ce nter (procedure) [code = 944546519] Future Scheduled 1963 Sigmoidoscopy [facility]code = [facility] S[facility]oscopy] Medical Cente r Future Scheduled 1963 Screening for malignant [facility] 00:00:00 neoplasm of breast Medical C enter (procedure) [code = 534293231] Future Scheduled 1963 CT Colonography (combo) [facility] 00:00:00 [code = CT Colonography [facility] (combo)] Future Scheduled 1963 Screening for malignant [facility] 00:00:00 neoplasm of colon Medical Ce nter (procedure) [code = 591254474] Future Scheduled 1963 Screening for malignant [facility] 00:00:00 neoplasm of colon Medical Ce nter (procedure) [code = 564647449] Future Scheduled 1963 Sigmoidoscopy [code = [facility] S[facility]oidoscopy] Medical Cente r Future Scheduled 1963 Screening for malignant [facility] 00:00:00 neoplasm of breast Medical C enter (procedure) [code = 505700276] Future Scheduled 1963 CT Colonography (combo) [facility] 00:00:00 [code = CT Colonography [facility] (combo)] Future Scheduled 1963 Screening for malignant [facility] 00:00:00 neoplasm of colon Medical Ce nter (procedure) [code = 016128157] Future Scheduled 1963 Screening for malignant [facility] 00:00:00 neoplasm of colon Medical Ce nter (procedure) [code = 385541315] Future Scheduled 1963 Sigmoidoscopy [facility]code [facility]oscopy] Medical Cente r Future Scheduled 1963 Screening for malignant [facility] 00:00:00 neoplasm of breast Medical C enter (procedure) [code = 399844940] Future Scheduled 1963 CT Colonography (combo) [facility] 00:00:00 [code = CT Colonography [facility] (combo)] Future Scheduled 1963 Screening for malignant [facility] 00:00:00 neoplasm of colon Medical Ce nter (procedure) [code = 757748825] Future Scheduled 1963 Screening for malignant [facility] 00:00:00 neoplasm of colon Medical Ce nter (procedure) [code = 127523446] Future Scheduled 1963 Sigmoidoscopy [code = [facility] S[facility]oscopy] Medical Luis Daniele r Encounters Start End Encounter Admission Attending Care Care Encounter Source Date/Time Date/Time Type Type Clinicians Facility Department ID 2023-04-20 Outpatient Platt, [facility] [id number] Common 15:37:00 [facility] [address] [facility] 2023-03-18 Outpatient Platt, STLMLC STLMLC [id number] Common 10:58:00 Davin [address] [facility] 2023-01-18 Outpatient Platt, STLMLC STLMLC [id number] Common 09:19:00 Davin [address]16 [facility] 2023-01-03 Outpatient Platt, STLMLC STLMLC [id number] Common 13:22:00 Davin [id number] [facility] 2022-09-20 Outpatient Platt, STLMLC STLMLC [id number] Common 09:30:01 Davin 32651 [facility] 2022-07-09 Outpatient Platt, STLMLC STLMLC [id number] Common 10:44:00 Davin [facility] 2022-07-06 Outpatient Platt, STLMLC STLMLC [id number] Common 09:19:01 Davin [facility] 2022-07-05 Outpatient Platt, STLMLC STLMLC [id number] Common 16:24:02 Davin [facility] 2022-07-01 Outpatient Platt, STLMLC STLMLC [id number] Common 09:38:00 Davin [address]15 [facility] 2022-06-29 Outpatient Platt, STLMLC STLMLC [id number] Common 11:52:00 Davin [facility] 2021-10-28 Outpatient Platt, STLMLC STLMLC [id number] Common 14:00:30 Davin [id number] [facility] 2021-10-28 Outpatient Platt, STLMLC STLMLC [id number] Common 13:48:24 Davin 10086 [facility] 2021-10-28 Outpatient Platt, STLMLC STLMLC [id number] Common 13:04:06 Davin 38420 [facility] 2021-10-28 Outpatient Platt, STLMLC STLMLC [id number] Common 12:33:05 Davin [id number] [facility] 2021-10-28 Outpatient Platt, STLMLC STLMLC [id number] Common 12:32:02 Davin [id number] [facility] 2021-10-28 Outpatient Platt, STLMLC STLMLC [id number] Common 12:11:19 Davin 74649 [facility] 2021-10-28 Outpatient Platt, STLMLC STLMLC [id number] Common 12:06:04 Davin 74059 [facility] 2021-10-28 Outpatient Platt, STLMLC STLMLC [id number] Common 11:57:23 Davin 40189 [facility] 2021-10-28 Outpatient Platt, STLMLC STLMLC [id number] Common 11:38:16 Davin [id number] [facility] 2021-10-28 Outpatient Platt, STLMLC STLMLC [id number] Common 11:16:03 Davin [id number] [facility] 2021-10-28 Outpatient Platt, STLMLC STLMLC [id number] Common 11:11:18 Davin 50276 [facility] 2021-10-28 Outpatient Platt, STLMLC STLMLC [id number] Common 11:09:24 Davin [id number] [facility] 2021-10-28 Outpatient Platt, STLMLC STLMLC [id number] Common 11:08:56 Davin [id number] [facility] 2021-10-28 Outpatient Platt, STLMLC STLMLC [id number] Common 11:08:09 Davin [id number] [facility] 2023-04-21 2023-04-21 Outpatient GC_GCBZW_Ka PRIV PRIV [id number] [facility] 00:00:00 00:00:00 diyala_S [id number] Medic al 2023-04-18 2023-04-18 JALEEL Visit Dana 2.16.840. 2.16.840.1. CL [id number] [facility] 15:30:00 16:30:00 Jonn [id number]. [id number]. [facility] Medical 4.6.02403 [id number] 2022-11-16 2022-11-16 CAV Marla La 2.16.840. 2.16.840.1. C [id number] [facility] 21:30:00 22:30:00 [id number]. [id number]. [facility] 4.6.13166 [id number] 2022-11-11 2022-11-11 Telephone Borandra, [facility] [id number] 00:[facility]00 00:00:00 [facility] 2022-11-11 2022-11-11 Telephone Borandra, [facility] [id number] 00:00[facility]00 00:00:00 [facility] 2022-11-10 2022-11-10 (TEL) [facility] [id number] Co mmon 00:00:00 00:00:00 [facility] 2022-11-09 2022-11-09 Outpatient Alex_R DMG [facility] [id number] [facility] 00:00:00 00:00:00 [id number] [facility] 2022-11-09 2022-11-09 Outpatient Alex_R DMG [facility] [id number] [facility] 00:00:00 00:00:00 [id number] [facility] 2022-11-09 2022-11-09 Outpatient Alex_R DMG DM [id number] [facility] 00:00:00 00:00:00 [id number] [facility] l [facility] 2022-10-29 2022-10-29 (TEL) STLC STLC [id number] Co mmon 00:00:00 00:00:00 [facility] 2022-10-25 2022-10-25 (TEL) STLMLC STLMLC [id number] Co mmon 00:00:00 00:00:00 [facility] 2022-09-23 2022-09-23 Outpatient R [facility] [id number] Univers 14:15:10 23:59:00 [facility] 2022-09-23 2022-09-23 [facility] 1.2.840.114 [id number] [facility] 14:15:10 23:59:00 Encounter Shan BURRELL 350.1.13.10 ity of [place] 4.2.7.2.686 [facility] [phone] [facility] 804 Branch 2022-09-23 2022-09-23 Orders Doctor GRISEL 1.2.840.114 [id number] Univers 00:00:00 00:00:00 Only Unassigned, LEONIDES 350.1.13.10 ity of [facility] 4.2.7.2.686 [facility] [id number] [facility] 009 Branch 2022-09-22 2022-09-22 OFFICE STLMLC STLC [id number] Co mmon 00:00:00 00:00:00 VISIT Juan C LEZAMA PT - CHI LEVEL 4 [facility] 2022-09-06 2022-09-06 Telephone Oscar, [facility] [id number] 00:00[facility]00 00:00:00 [facility] 2022-09-06 2022-09-06 Telephone Oscar, [facility] [id number] 00:00:00 00:00:00 [facility] 2022-09-06 2022-09-[address] [facility] [id number] Co mmon 00:00:00 00:00:00 VISIT Juan C LEZAMA PT - CHI LEVEL 4 [facility] 2022-08-11 2022-08-11 Outpatient Patsy OJEDA [facility] [id number] Aayush 00:00:00 00:00:00 SCAR ity of [facility] 2022-07-30 2022-07-30 Outpatient DMG DM [id number] [facility] 00:00:00 00:00:00 [id number] Medica l Group 2022-07-29 2022-07-29 Outpatient DMG DMTa [id number] [facility] 00:00:00 00:00:00 [id number] [facility] l [facility] 2022-07-29 2022-07-29 OFFICE STLMLC STLC [id number] Co mmon 00:00:00 00:00:00 VISIT Juan C LEZAMA PT - CHI LEVEL 4 [facility] 2022-07-26 2022-07-26 Emergency X [facility] ERT [id number] Univers 11:44:00 15:33:00 NILAY martinez of [facility] 2022-07-26 2022-07-26 Emergency [facility] 1.2.007.751 [id number] Univers 11:44:00 15:33:00 Nilay BURRELL 350.1.13.10 i ty [facility] 4.2.7.2.686 [facility] [id number] [place] [id number] Branch 2022-07-26 2022-07-26 (TEL) STLMLC STLMLC [id number] Co mmon 00:00:00 00:00:00 [facility] 2022-07-14 2022-07-14 (TEL) STLMLC STLMLC [id number] Co mmon 00:00:00 00:00:00 [facility] 2022-07-09 2022-07-09 OFFICE STLMLC STLMLC [id number] Co mmon 00:00:00 00:00:00 VISIT [facility] LEVEL 4 [facility] 2022-07-06 2022-07-06 (TEL) STLMLC STLMLC [id number] Co mmon 00:00:00 00:00:00 [facility] 2022-07-05 2022-07-05 (TEL) STLMLC STLMLC [id number] Co mmon 00:00:00 00:00:00 [facility] 2022-06-30 2022-06-30 (HOSP F/U) STLMLC STLMLC [id number] Common 00:00:00 00:00:00 Hospital [facility] Follow [facility] 2022-06-23 2022-06-23 (TEL) STLMLC STLMLC [id number] Co mmon 00:00:00 00:00:00 [facility] 2022-06-22 2022-06-22 Transition MARCELINO Puri 1.2.840.114 [id number] Univers 00:00:00 00:00:00 of Care Spike VEE 350.1.13.10 [place] [id number] [facility] 403 [address] 2022-06-16 2022-06-21 Inpatient X MORGAN [facility] TANA [id number] Univers 18:03:00 12:23:00 JESUS ity of [facility] 2022-06-16 2022-06-21 Hospital Hill Sawyer [facility] 1.2.840.1 [id number] Univers 18:03:00 12:23:00 Encounter Pauly Wan 350.1.1 3.10 ity of [place]bie [place] 4.2.7.2.686 [facility] [id number] Medical 081 Branch 2022-06-16 2022-06-16 Orders Doctor GRISEL 1.2.840.114 [id number] Univers 00:00:00 00:00:00 Only Unassigned, LEONIDES 350.1.13.10 ity of [place] [facility] 4.2.7.2.686 Faustino as [id number] [facility] 009 Branch 2022-06-09 2022-06-09 OFFICE [facility] [id number] Co mmon 00:00:00 00:00:00 VISIT Spirit ESTAB PT - CHI LEVEL 4 [facility] 2022-06-09 2022-06-09 (TEL) [facility] [id number] Co mmon 00:00:00 00:00:00 Spirit - [facility] 2022-06-09 2022-06-09 SUB ANNUAL [facility] [id number] Common 00:00:00 00:00:00 MCR Spirit WELLNESS - CHI VISIT [facility] 2022-05-20 2022-05-20 (TEL) [facility] [id number] Co mmon 00:00:00 00:00:00 Spirit - [facility] 2022-05-18 2022-05-18 Telephone Oscar [facility] [id number] 00:00[facility]00 00:00:00 [facility] 2022-05-18 2022-05-18 Telephone Oscar [facility] [id number] 00:00[facility]00 00:00:00 [facility] 2022-04-14 2022-04-14 Office DONI Krueger [facility] [id number] 13:15:00 14:25:49 Visit [facility] 2022-02-09 2022-02-[address] [facility] [id number] Co mmon 00:00:00 00:00:00 VISIT Juan C ESTAB PT - CHI LEVEL 4 [facility] 2022-01-04 2022-01-04 Outpatient DONI KRUEGER [facility] [id number] 09:57:22 12:00:27 [facility] 2021-12-17 2021-12-17 (TEL) STLC STLC [id number] Co mmon 00:00:00 00:00:00 Spirit - [facility] 2021-10-16 2021-10-16 [facility] [id number] Univers 15:06:23 23:59:00 CARLTON ity of [facility] 2021-10-16 2021-10-16 [facility] 1.2.809.652 [id number] Univers 15:00:00 23:59:00 Encounter Carlton Leonarda [place] 350.1.13.10 ity [facility] 4.2.7.2.686 [facility] [id number] [place] [address] Branch 2021-10-12 2021-10-[address] [facility] [id number] Co mmon 00:00:00 00:00:00 VISIT Juan C ESTAB PT - CHI LEVEL 4 [facility] 2021-09-22 2021-09-22 [facility] [id number] [id number] Univers 10:16:00 12:21:00 Encounter Carlton Brower [place] 350.1.13.10 ity [facility] 4.2.7.2.686 [facility] [id number] [facility] 071 Branch 2021-09-22 2021-09-22 Outpatient R GUTHRIE [facility] CANDIS [id number] Univers 10:16:00 12:21:00 CARLTON ity [facility] 2021-09-22 2021-09-22 Surgery [facility] 1.2.840.114 [id number] Univers 10:50:00 12:01:00 Carlton A INDRA 350.1.13.10 i ty [facility] [place] [id number] [facility] [address] [place] 2021-09-22 2021-09-22 Orders Doctor GRISEL 1.2.840.114 [id number] Univers 00:00:00 00:00:00 Only Unassigned, LEONIDES 350.1.13.10 [facility] 4.2.7.2.686 Faustino as [id number] [address] 2021-09-21 2021-09-21 Outpatient [facility] [id number] Univers 08:15:00 08:15:00 CARLTON [facility] 2021-09-04 2021-09-04 (TEL) STLMLC STLC [id number] Co mmon 00:00:00 00:00:00 [facility] 2021-08-20 2021-08-20 Surgery [facility] 1.2.840.114 [id number] Univers 12:50:00 14:12:00 Carlton BURRELL 350.1.13.10 i ty [id number] [address] 2021-08-20 2021-08-20 Outpatient R GUTHRIE [facility] C[facility] [id number] Univers 11:19:00 12:57:00 CARLTON ity [facility] 2021-08-20 2021-08-20 [facility] 1.2.073.641 [id number] Univers 11:19:00 12:57:00 Encounter Carlton BURRELL 350.1.13.10 ity [facility] [place] [id number] [place] [id number] Branch 2021-08-20 2021-08-20 Orders Doctor GRISEL 1.2.840.114 [id number] Univers 00:00:00 00:00:00 Only Unassigned, LEONIDES 350.1.13.10 ity [facility] 4.2.7.2.686 Faustino as [id number] [address] 2021-08-17 2021-08-17 Outpatient Patsy ECHEVERRIA, [facility] [id number] Univers 08:45:00 08:45:00 CARLTON itanthony [facility] 2021-07-13 2021-07-13 (TEL) STLMLC STLMLC [id number] Co mmon 00:00:00 00:00:00 [facility] 2021-07-06 2021-07-06 (TEL) STLMLC STLMLC [id number] Co mmon 00:00:00 00:00:00 [facility] 2021-07-02 2021-07-02 Outpatient STLMLC STLMLC [id number] Common 00:00:00 00:00:00 [facility] 2021-06-16 2021-06-16 Outpatient STLMLC STLMLC [id number] Common 00:00:00 00:00:00 [facility] 2021-06-04 2021-06-04 Outpatient STLMLC STLMLC [id number] Common 00:00:00 00:00:00 [facility] 2021-06-01 2021-06-01 Outpatient STLMLC STLMLC [id number] Common 00:00:00 00:00:00 [facility] 2021-05-27 2021-05-27 Outpatient STLMLC STLMLC [id number] Common 00:00:00 00:00:00 [facility] 2021-05-20 2021-05-20 Outpatient STLMLC STLMLC [id number] Common 00:00:00 00:00:00 [facility] 2021-05-20 2021-05-20 Outpatient STLMLC STLMLC [id number] Common 00:00:00 00:00:00 [facility] 2021-04-08 2021-04-08 Outpatient STLMLC STLMLC [id number] Common 00:00:00 00:00:00 [facility] 2021-04-08 2021-04-08 Outpatient STLMLC STLMLC [id number] Common 00:00:00 00:00:00 [facility] 2021-03-25 2021-03-25 Outpatient STLMLC STLMLC [id number] Common 00:00:00 00:00:00 [facility] 2021-02-16 2021-02-16 Outpatient STLMLC STLMLC [id number] Common 00:00:00 00:00:00 [facility] 2021-02-16 2021-02-16 Outpatient STLMLC STLMLC [id number] Common 00:00:00 00:00:00 [facility] 2020-11-26 2020-11-26 Outpatient STLMLC STLMLC [id number] Common 00:00:00 00:00:00 [facility] 2020-11-20 2020-11-20 Outpatient STLMLC STLMLC [id number] Common 00:00:00 00:00:00 [facility] 2020-11-03 2020-11-03 Outpatient STLMLC STLMLC [id number] Common 00:00:00 00:00:00 [facility] 2020-09-09 2020-09-09 Outpatient STLMLC STLMLC [id number] Common 00:00:00 00:00:00 [facility] 2020-09-08 2020-09-08 Outpatient STLMLC STLMLC [id number] Common 00:00:00 00:00:00 [facility] 2020-08-20 2020-08-20 Outpatient STLMLC STLMLC [id number] Common 00:00:00 00:00:00 [facility] 2020-08-07 2020-08-07 Outpatient STLMLC STLMLC [id number] Common 00:00:00 00:00:00 [facility] 2020-07-24 2020-07-24 Outpatient STLMLC STLMLC [id number] Common 00:00:00 00:00:00 [facility] 2020-07-21 2020-07-21 Outpatient STLMLC STLMLC [id number] Common 00:00:00 00:00:00 [facility] 2020-07-21 2020-07-21 Outpatient STLMLC STLMLC [id number] Common 00:00:00 00:00:00 [facility] 2020-07-18 2020-07-18 Outpatient STLMLC STLMLC [id number] Common 00:00:00 00:00:00 [facility] 2020-07-17 2020-07-17 Outpatient STLMLC STLMLC [id number] Common 00:00:00 00:00:00 [facility] 2020-05-15 2020-05-15 [facility] [id number] Common 14:15:00 14:15:[address] [facility] 2020-04-09 2020-04-09 Outpatient [facility] [id number] Common 08:55:00 08:55:[address] [facility] 2020-04-07 2020-04-07 Out[facility] [id number] Common 10:34:00 10:34:[address] [facility] 2020-02-13 2020-02-13 Outpatient [facility] [id number] Common 15:00:00 15:00:[address] Family - [facility] 2020-02-13 2020-02-13 Out[facility] [id number] Common 15:00:00 15:00:[address] [facility] 2020-02-08 2020-02-08 Outpatient [facility] [id number] Common 08:47:00 08:47:[address] [facility] 2019-11-19 2019-11-19 Outpatient [facility] [id number] Common 13:00:00 13:00:[address] [facility] 2019-11-12 2019-11-12 Outpatient [facility] [id number] Common 08:28:00 08:28:[address] [facility] 2019-09-11 2019-09-11 Outpatient [facility] [id number] Common 13:30:00 13:30:00 t Bone Bone and Spiri t and Joint [facility] - [facility] 2019-08-16 2019-08-16 [facility] [id number] Common 13:15:00 13:15:[address] [facility] 2019-07-31 2019-07-31 Out[facility] [id number] Common 10:00:00 10:00:00 t Bone Bone and Spiri t and Joint [facility] - [facility] 2019-07-30 2019-07-30 Out[facility] [id number] Common 14:13:00 14:13:00 t Bone Bone and Spiri t and Joint Joint - [facility] 2019-07-27 2019-07-27 Out[facility] [id number] Common 08:51:00 08:51:00 t Bone Bone and Spiri t and Joint [facility] - [facility] 2019-07-10 2019-07-10 Out[facility] [id number] Common 10:00:00 10:00:00 t Bone Bone and Spiri t and Joint Joint - [facility] 2019-07-10 2019-07-10 Out[facility] [id number] Common 08:30:00 08:30:[address] [facility] 2019-07-09 2019-07-09 Outpatient [facility] [id number] Common 10:47:00 10:47:[address] [facility] 2019-06-20 2019-06-20 Outpatient [facility] [id number] Common 13:30:00 13:30:00 t Bone Bone and Spiri t and Joint [facility] - [facility] 2019-06-20 2019-06-20 Outpatient [facility] [id number] Common 08:49:00 08:49:[address] [facility] 2019-06-18 2019-06-18 Outpatient [facility] [id number] Common 08:30:00 08:30:[address] [facility] 2019-05-21 2019-05-21 Outpatient [facility] [id number] Common 13:55:00 13:55:[address] [facility] 2019-05-18 2019-05-18 Outpatient [facility] [id number] Common 14:40:00 14:40:[address] [facility] 2019-05-17 2019-05-17 Outpatient [facility] [id number] Common 14:00:00 14:00:[address] [facility] 2019-02-08 2019-02-08 Out[facility] [id number] Common 16:40:00 16:40:[address] [facility] 2019-02-06 2019-02-06 Outpatient [facility] [id number] Common 16:30:00 16:30:[address] [facility] 2019-01-30 2019-01-30 Outpatient [facility] [id number] Common 11:28:00 11:28:[address] [facility] 2019-01-25 2019-01-25 Outpatient [facility] [id number] Common 14:30:00 14:30:[address] [facility] 2018-12-07 2018-12-07 Outpatient [facility] [id number] Common 14:30:00 14:30:[address] [facility] 2018-12-05 2018-12-05 Outpatient [facility] [id number] Common 15:15:00 15:15:00 t Specialty/U Sp anitra Specialty rology - [facility] /[facility]rology Clinic [facility] 2018-11-08 2018-11-08 [facility] [id number] Common 13:25:00 13:25:[address] [facility] 2018-11-01 2018-11-01 Outpatient [facility] [id number] Common 13:15:00 13:15:[address] [facility] 2018-10-27 2018-10-27 Outpatient [facility] [id number] Common 12:16:00 12:16:[address] [facility] 2018-10-26 2018-10-26 Outpatient [facility] [id number] Common 15:10:00 15:10:00 t Specialty/U Sp anitra Specialty rology - [facility]I /Urology Clinic [facility] 2018-10-26 2018-10-26 Out[facility] [id number] Common 13:45:00 13:45:00 t Specialty/U Sp anitra Specialty rology - [facility]I /[facility]rology Clinic [facility] 2018-10-09 2018-10-09 Outpatient [facility] [id number] Common 10:45:00 10:45:[address] [facility] 2018-09-13 2018-09-13 Outpatient [facility] [id number] Common 09:40:00 09:40:[address] [facility] 2018-09-11 2018-09-11 Outpatient [facility] [id number] Common 14:30:00 14:30:[address] [facility] Results Test Description Test Time Test Comments Results Result Comments Source BASIC METABOLIC PANEL (NA, K, CL, CO2, GLUCOSE, BUN, 2022-06 11:51:11 CREATININE, CA) Test Item Value Reference Range Interpretation Comme nts NA (test code = 2938864450) 133 mmol/L 135-145 L K (test code = 8393926340) 3.7 mmol/L 3.5-5 CL (test code = 6295730686) 102 mmol/L 98-108 CO2 TOTAL (test code = 3701256321) 24 mmol/L 23-31 AGAP (test code = 3812476837) 2-16 BUN (test code = 3273796094) 3 mg/dL 7-23 L GLUCOSE (test code = 5320726335) 101 mg/dL 70-110 CREATININE (test code = 0.85 mg/dL 0.5-1.04 2474164365) CALCIUM (test code = 3814295102) 8.7 mg/dL 8.6-10.6 eGFR (test code = 4011137050) mL/min/1.73m2 COLTON (test code = COLTON) Association [...] tests). Lab Interpretation (test code = Abnormal 58696-3) [facility]05046[facility] (ALB,T.PRO,BILI T,BU/BC,ALT,AST,ALK PHOS)2022-06-21 11:50:31 Test Item Value Reference Range Interpretation Comments TOTAL BILI (test code = 7885312046) 0.2 mg/dL 0.1-1.1 BILI UNCON (test code = 8626618429) 0.1 mg/dL 0.1-1.1 BILI CONJ (test code = 2021883154) 0.0 mg/dL 0-0.3 T PROTEIN (test code = 8600994284) 6.0 g/dL 6.3-8.2 L ALBUMIN (test code = 1043246969) 3.5 g/dL 3.5-5 ALK PHOS (test code = 8810707017) 583 U/L 34-122 H ALTv (test code = 1742-6) 139 U/L 5-35 H AST(SGOT) (test code = 5376760320) 55 U/L 13-40 H Lab Interpretation (test code = Abnormal 28160-0) [facility] (NA, K, CL, CO2, GLUCOSE, BUN, CREATININE, CA)2022-06-20 10:31:12 Test Item Value Reference Range Interpretation Comments NA (test code = 135 mmol/L 135-145 6051911356) K (test code = 2.9 mmol/L 3.5-5 LL 1031681861) CL (test code = 107 mmol/L 98-108 2708363373) CO2 TOTAL (test code = 22 mmol/L 23-31 L 8313087856) AGAP (test code = 2-16 0565432854) BUN (test code = 7-23 L 8644697902) GLUCOSE (test code = 103 mg/dL 70-110 9574031828) CREATININE (test code = 0.73 mg/dL 0.5-1.04 5745516495) CALCIUM (test code = 8.4 mg/dL 8.6-10.6 L 7876068955) eGFR (test code = mL/min/1.73m2 9207016773) COLTON (test code = COLTON) Association of [...] tests). Lab Interpretation Abnormal (test code = 36169-1) [facility] WITH [id number] 09:21:48 Test Item Value Reference Range Interpretation Comments WBC (test code = See_Comment [Automated 0678-2) message] The sy stem which generated this result transmitted reference range : 4.30 - 11.10 10*3/?L. The reference range was not used to interpret this result as normal/abnormal . RBC (test code = See_Comment L [Automated 587-5) message] The sy stem which generated this [...] RDW-SD (test code = 40.5 fL 39-49.9 25301-2) RDW-CV (test code = 12.6 % 12-15.5 788-0) PLT (test code = See_Comment H [Automated 777-3) message] The sy stem which generated this result transmitted reference range : 166 - 358 10*3/ ?L. The reference r susana was not used to interpret this result as normal/abnormal . MPV (test code = 9.0 fL 9.5-12.9 L 32257-9) NRBC/100 WBC (test See_Comment [Automat ed code = 7389524632) message] The system which generated this result transmitted reference range : 0.0 - 10.0 /100 WBCs. The refer ence range was not u sed to interpret th is result as normal/abnormal . NRBC x10^3 (test code See_Comment [Auto mated = 7742539946) message] The s ystem which generated this result transmitted reference range : 10*3/?L. The reference range was not used to interpret this result as normal/abnormal . GRAN MAT (NEUT) % 67.8 % (test code = 770-8) IMM GRAN % (test code 1.20 % = 0237913847) LYMPH % (test code = 17.9 % 736-9) MONO % (test code = 11.7 % 5905-5) EOS % (test code = 1.2 % 713-8) BASO % (test code = 0.2 % 706-2) GRAN MAT x10^3(ANC) 4.02 10*3/uL 1.88-7.09 (test code = 1103859970) IMM GRAN x10^3 (test 0.07 10*3/uL 0-0.06 H code = 1730741295) LYMPH x10^3 (test code 1.06 10*3/uL 1.32-3.29 L = 731-0) MONO x10^3 (test code 0.69 10*3/uL 0.33-0.92 = 742-7) EOS x10^3 (test code = 0.07 10*3/uL 0.03-0.39 711-2) BASO x10^3 (test code 0.01-0.07 = 704-7) Lab Interpretation Abnormal (test code = 29641-7) [facility] [id number] 21:07:40 Test Item Value Reference Range Interpretation [...] nausea and vomiting.Perfor med By: [facility] [id number] [place], [place] [address]M aboratory Director: Joe Martinez MD, PhD [facility] (91773) (ALB,T.PRO,BILI T,BU/BC,ALT,AST,ALK PHOS)2022-06-18 11:44:08 Test Item Value Reference Range Interpretation Comments TOTAL BILI (test code = 1652867776) 0.4 mg/dL 0.1-1.1 BILI UNCON (test code = 7734453644) 0.1 mg/dL 0.1-1.1 BILI CONJ (test code = 9906081914) 0.0 mg/dL 0-0.3 T PROTEIN (test code = 8863472609) 6.0 g/dL 6.3-8.2 L ALBUMIN (test code = 4948016438) 3.4 g/dL 3.5-5 L ALK PHOS (test code = 3497611864) 608 U/L 34-122 H ALTv (test code = 1742-6) 373 U/L 5-35 H AST(SGOT) (test code = 3889219541) 357 U/L 13-40 H Lab Interpretation (test code = Abnormal 82421-2) [facility] SURFACE [id number] 20:52:12 Test Item Value Reference Range Interpretation Comments HBsAB (test code = Indeterminate 9281872450) HBsAb mIU/mL Semi-Quantitative (test code = 6012010532) COLTON (test code = Unable to determine if COLTON) antibody to Hepatitis B Surface Antigen is present at levels consistent with immunity. ?Patient's immune status should be assessed with other clinical information and/or retesting in 4-6 weeks as clinically indicated. ?If any questions, please contact Clinical Chemistry Director workers' compensation magistrate at .Unable to determine if antibody to Hepatitis B Surface Antigen is present at levels consistent with immunity. ?Patient's immune status should be assessed with other clinical information and/or retesting in 4-6 weeks as clinically indicated. ?If any questions, please contact Clinical Chemistry Director workers' compensation magistrate at .Unable to determine if antibody to Hepatitis B Surface Antigen is present at levels consistent with immunity. ?Patient's immune status should be assessed with other clinical information and/or retesting in 4-6 weeks as clinically indicated. ?If any questions, please contact Clinical Chemistry Director workers' compensation magistrate at .Interpretati on: ?Hepatitis B Surface Antibody ? Negative - Patient is considered to be not immune to infection with HBV. ? ? Positive - Anti-HBs detected at greater than or equal to 12 mIU/mL. ?Patient is considered to be immune to infection with HBV. ? [facility]22-[facility]-17 19:04:09 Test Item Value Reference Range Interpretation Comments HBC (test code = 9599267239) Negative HBC Semi-Quantitative (test code = 7551999411) [facility] [id number] 19:04:09 Test Item Value Reference Range Interpretation Comments HCV Ab (test code = 23488-8) Negative HCV Semi-Quantitative (test code = 10569-9) [facility] SystemHEPAT[facility]IS B SURFACE [id number] 18:45:46 Test Item Value Reference Range Interpretation Comments HBsAg Semi-Quantitative (test code = Negative Negative 5195-3) [facility] SystemPROCALCITONIN2022-09-15 16:01:08 Test Item Value Reference Interpretation Comments Range Procalcitonin (test 0.31 ng/mL See_Comment H [Automa carlton code = 5780348301) message] The system which generated this result [...] lung abscess/empyema. For further information please refer to:[email or web address] Lab Interpretation Abnormal (test code = 79423-0) [facility]. METABOLIC PANEL (50447)2022-06-17 13:10:04 Test Item Value Reference Range Interpretation Comments NA (test code = 141 mmol/L 135-145 3350429651) K (test code = 3.5 mmol/L 3.5-5 8070308731) CL (test code = 111 mmol/L 98-108 H 3015276410) CO2 TOTAL (test code = 24 mmol/L 23-31 7924662658) AGAP (test code = 2-16 2866610132) BUN (test code = 8 mg/dL 7-23 9644845240) GLUCOSE (test code = 97 mg/dL 70-110 1163907262) CREATININE (test code = 0.89 mg/dL 0.5-1.04 3275763542) TOTAL BILI (test code = 1.1 mg/dL 0.1-1.8 0406788837) CALCIUM (test code = 8.2 mg/dL 8.6-10.6 L 8416253022) T PROTEIN (test code = 5.8 g/dL 6.3-8.2 L 2930288044) ALBUMIN (test code = 3.2 g/dL 3.5-5 L 8610708769) ALK PHOS (test code = 766 U/L 34-122 H 8479588271) ALTv (test code = 634 U/L 5-35 H 1742-6) AST(SGOT) (test code = 1987 U/L 13-40 H 0110397482) eGFR (test code = mL/min/1.73m2 1103106004) COLTON (test code = COLTON) Association of [...] tests). Lab Interpretation Abnormal (test code = 78418-8) [facility] System[facility] STIMULATING [id number] 12:33:26 Test Item Value Reference Range Interpretation Comments TSH (test code = See_Comment [Automated message] 9793895306) The system [employer] generated this result transmitted ref erence range: 0.45 - 4 .70 mIU/L. The refe rence range was not u sed to interpret this result as normal/abnor mal. Lab Interpretation (test Normal code = 91343-0) [facility] SystemTROP[facility]IN [id number] 12:15:04 Test Item Value Reference Interpretation Comments Range TROPONIN I (test 0.006 ng/mL See_Comment [Automated code = 1744097701) message] The system which generated this result [...] biotin. Lab Interpretation Normal (test code = 55532-2) [facility] SystemN-TERMINAL [id number] 12:11:41 Test Item Value Reference Range Interpretation Comments NT-proBNP (test code 176 pg/mL See_Comment H [Autom ated = 1464536384) message] The system which generated this result transmitted reference range : <=125. The reference range was not used to interpret this result as normal/abnormal . COLTON (test code = COLTON) Biotin has been reported to cause a negative bias, interpret results relative to patient's use of biotin. Lab Interpretation Abnormal (test code = 27196-2) [facility] SystemLIP[facility] PANEL (87473)(TOTAL CHOLESTEROL, TRIGLYCERIDES, HDL)2022-06-17 12:03:42 Test Item Value Reference Range Interpretation Comments CHOL (test code = 152 mg/dL 120-200 8893066716) HDL (test code = 40 mg/dL See_Comment L [Automated message] 3558882921) The system [employer] generated this result transmit carlton reference range : >=50. The refer ence range was not u sed to interpret th is result as normal/abnormal . HDLC RATIO (test code = See_Comment [Au tomated message] 7039941785) The system [employer] generated this result transmit carlton reference range : <=4.5. The refe rence range was not u sed to interpret th is result as normal/abnormal . TRIG (test code = 102 mg/dL 30-170 7500598513) LDL CHOL (test code = 92 mg/dL See_Comment [Auto mated message] 46722-1) The system [employer] generated this result transmit carlton reference range : <=160. The refe rence range was not u sed to interpret th is result as normal/abnormal . VLDL (test code = 20 mg/dL 5-60 0868740141) Lab Interpretation (test Abnormal code = 15849-5) [facility] SystemMAGNESIUM2022-09-15 12:03:42 Test Item Value Reference Range Interpretation Comments MAGNESIUM (test code = 4332866296) 2.0 mg/dL 1.7-2.4 Lab Interpretation (test code = Normal 04182-3) [facility] SystemPHOSPHORUS2022-09-15 12:03:21 Test Item Value Reference Range Interpretation Comments PHOSPHORUS (test code = 4088339916) 3.7 mg/dL 2.5-5 Lab Interpretation (test code = Normal 51371-9) [facility] SystemProthrombin Time / [id number] 10:10:50 Test Item Value Reference Range Interpretation Comments PROTIME PATIENT (test See_Comment [Auto mated message] code = 5964-2) The system Clari generated this result transmitted ref erence range: 12.0 - 1 4.7 Seconds. The re ference range was not u sed to interpret this result as normal/abnor mal. INR (test code = 6301-6) Nor mal INR <1.1; Warfarin Therap eutic range 2.0 to 3. 0 or 2.5 to 3.5, dep ending upon the indica tions. Lab Interpretation (test Normal code = 50955-2) [facility] SystemCB WITH [id number] 09:47:03 Test Item Value Reference Range Interpretation [...] RDW-SD (test code = 43.2 fL 39-49.9 03029-8) RDW-CV (test code = 12.6 % 12-15.5 788-0) PLT (test code = See_Comment [Automated 777-3) message] The sy stem which generated this result transmitted reference range : 166 - 358 10*3/ ?L. The reference r susana was not used to interpret this result as normal/abnormal . MPV (test code = 9.0 fL 9.5-12.9 L 54041-2) NRBC/100 WBC (test See_Comment [Automat ed code = 0722601338) message] The system which generated this result transmitted reference range : 0.0 - 10.0 /100 WBCs. The refer ence range was not u sed to interpret th is result as normal/abnormal . NRBC x10^3 (test code See_Comment [Auto mated = 6758631087) message] The s ystem which generated this result transmitted reference range : 10*3/?L. The reference range was not used to interpret this result as normal/abnormal . GRAN MAT (NEUT) % 70.7 % (test code = 770-8) IMM GRAN % (test code 0.50 % = 7497610378) LYMPH % (test code = 15.3 % 736-9) MONO % (test code = 12.0 % 5905-5) EOS % (test code = 1.3 % 713-8) BASO % (test code = 0.2 % 706-2) GRAN MAT x10^3(ANC) 5.85 10*3/uL 1.88-7.09 (test code = 2153155840) IMM GRAN x10^3 (test 0.04 10*3/uL 0-0.06 code = 3026224807) LYMPH x10^3 (test code 1.27 10*3/uL 1.32-3.29 L = 731-0) MONO x10^3 (test code 0.99 10*3/uL 0.33-0.92 H = 742-7) EOS x10^3 (test code = 0.11 10*3/uL 0.03-0.39 711-2) BASO x10^3 (test code 0.01-0.07 = 704-7) Lab Interpretation Abnormal (test code = 29005-8) [facility] SystemGLYCOSYLATED HEMOGLOBIN (A1C)2022-06-17 06:45:49 Test Item Value Reference Range Interpretation Comments HGB A1C (test code = 5.4 % 4-5.7 4548-4) COLTON (test code = COLTON) Reference RangesNormal: <5.7%Prediabetes: 5.7 - 6.4%Diabetes: > 6.5% Lab Interpretation (test Normal code = 91346-7) [facility] SystemTROPONIN [id number] 00:41:17 Test Item Value Reference Interpretation Comments Range TROPONIN I (test 0.004 ng/mL See_Comment [Automated code = 1654592320) message] The system which generated this result [...] biotin. Lab Interpretation Normal (test code = 57675-5) [facility] WITH [id number] 00:35:10 Test Item Value Reference Range Interpretation [...] RDW-SD (test code = 42.3 fL 39-49.9 03682-9) RDW-CV (test code = 12.6 % 12-15.5 788-0) PLT (test code = See_Comment H [Automated 777-3) message] The sy stem which generated this result transmitted reference range : 166 - 358 10*3/ ?L. The reference r susana was not used to interpret this result as normal/abnormal . MPV (test code = 8.7 fL 9.5-12.9 L 38742-5) NRBC/100 WBC (test See_Comment [Automat ed code = 1896916724) message] The system which generated this result transmitted reference range : 0.0 - 10.0 /100 WBCs. The refer ence range was not u sed to interpret th is result as normal/abnormal . NRBC x10^3 (test code See_Comment [Auto mated = 8173337270) message] The s ystem which generated this result transmitted reference range : 10*3/?L. The reference range was not used to interpret this result as normal/abnormal . GRAN MAT (NEUT) % 73.1 % (test code = 770-8) IMM GRAN % (test code 0.40 % = 2932935979) LYMPH % (test code = 13.3 % 736-9) MONO % (test code = 11.8 % 5905-5) EOS % (test code = 1.1 % 713-8) BASO % (test code = 0.3 % 706-2) GRAN MAT x10^3(ANC) 8.51 10*3/uL 1.88-7.09 H (test code = 3816614557) IMM GRAN x10^3 (test 0.05 10*3/uL 0-0.06 code = 0314490504) LYMPH x10^3 (test code 1.55 10*3/uL 1.32-3.29 = 731-0) MONO x10^3 (test code 1.37 10*3/uL 0.33-0.92 H = 742-7) EOS x10^3 (test code = 0.13 10*3/uL 0.03-0.39 711-2) BASO x10^3 (test code 0.03 10*3/uL 0.01-0.07 = 704-7) Lab Interpretation Abnormal (test code = 44715-6) [facility]. METABOLIC PANEL (42754)2022-06-17 00:30:09 Test Item Value Reference Range Interpretation Comments NA (test code = 135 mmol/L 135-145 2265447987) K (test code = 4.4 mmol/L 3.5-5 0261568709) CL (test code = 102 mmol/L 98-108 7262726338) CO2 TOTAL (test code = 22 mmol/L 23-31 L 8500272285) AGAP (test code = 2-16 1344012580) BUN (test code = 9 mg/dL 7-23 1914016205) GLUCOSE (test code = 113 mg/dL 70-110 H 1439709593) CREATININE (test code = 0.89 mg/dL 0.5-1.04 1929041535) TOTAL BILI (test code = 0.7 mg/dL 0.1-1.5 4651182213) CALCIUM (test code = 9.2 mg/dL 8.6-10.6 9493773077) T PROTEIN (test code = 7.4 g/dL 6.3-8.2 9157642169) ALBUMIN (test code = 4.4 g/dL 3.5-5 7763496041) ALK PHOS (test code = 158 U/L 34-122 H 9316310141) ALTv (test code = 20 U/L 5-35 1742-6) AST(SGOT) (test code = 32 U/L 13-40 0271557423) eGFR (test code = mL/min/1.73m2 6049848010) COLTON (test code = COLTON) Association of [...] tests). Lab Interpretation Abnormal (test code = 34846-3) [facility]2022-[facility]-15 00:30:09 Test Item Value Reference Range Interpretation Comments MAGNESIUM (test code = 6225769463) 2.0 mg/dL 1.7-2.4 Lab Interpretation (test code = Normal 38416-7) [facility] SystemLIPASE2022-09-15 00:29:54 Test Item Value Reference Range Interpretation Comments LIPASE (test code = 6382191236) 102 U/L 0-220 Lab Interpretation (test code = Normal 09395-7) [facility] SystemPOCT [id number] 22:24:44 Test Item Value Reference Range Interpretation Comments POCT Creatinine (test code = 0.7 mg/dL 0.5-1.8 2507743750) Lab Interpretation (test code = Normal 82453-3) [facility] SystemL[facility]ASE2019-10-01 06:29:00 Test Item Value Reference Range Interpretation Comments LIPASE (BEAKER) (test code = 749) 48 U/L 8-78 COMPREHENSIVE METABOLIC [id number] 06:29:00 Test Item Value Reference Range Interpretation [...] PATIEN TS. CBC W/PLT COUNT & AUTO [id number] 05:57:00 Test Item Value Reference Range Interpretation [...] 413) RAD, ABDOMEN SERIES W/ UPRIGHT PA [id number] 13:35:00Reason for exam:- >Postoperative distentionShould this be [...] MDReport Verified Date/Time: 07/02/2019 13:35:05 Reading Location:[facility] Radiology Reading Room [id number] 06:54:00 Test Item Value Reference Range Interpretation Comments LIPASE (BEAKER) (test code = 749) 56 U/L 8-78 COMPREHENSIVE METABOLIC [id number] 06:54:00 Test Item Value Reference Range Interpretation [...] PATIEN TS. CBC W/PLT COUNT & AUTO [id number] 06:31:00 Test Item Value Reference Range Interpretation [...] = 2801) CBC W/PLT COUNT & AUTO [id number] 06:59:00 Test Item Value Reference Range Interpretation [...] 0-1 PERCENT (BEAKER) (test code = 2801) [id number] 06:51:00 Test Item Value Reference Range Interpretation Comments LIPASE (BEAKER) (test code = 749) 53 U/L 8-78 COMPREHENSIVE METABOLIC [id number] 06:51:00 Test Item Value Reference Range Interpretation [...] PATIEN TS. CBC W/PLT COUNT & AUTO [id number] 06:20:00 Test Item Value Reference Range Interpretation [...] GRANULOCYTES-RELATIVE PERCENT (BEAKER) (test code = 2801) [id number] 05:44:00 Test Item Value Reference Range Interpretation Comments LIPASE (BEAKER) (test code = 749) 52 U/L 8-78 COMPREHENSIVE METABOLIC [id number] 05:44:00 Test Item Value Reference Range Interpretation [...] S NOT APPLICABLE FOR DIALYSIS PATIEN TS. [id number] 05:21:00 Test Item Value Reference Range Interpretation Comments LIPASE (BEAKER) (test code = 749) 72 U/L 8-78 COMPREHENSIVE METABOLIC [id number] 05:21:00 Test Item Value Reference Range Interpretation [...] PATIEN TS. CBC W/PLT COUNT & AUTO [id number] 05:14:00 Test Item Value Reference Range Interpretation [...] 0-1 PERCENT (BEAKER) (test code = 2801) [id number] 05:17:00 Test Item Value Reference Range Interpretation Comments LIPASE (BEAKER) (test code = 749) 55 U/L 8-78 COMPREHENSIVE METABOLIC [id number] 05:17:00 Test Item Value Reference Range Interpretation [...] PATIEN TS. CBC W/PLT COUNT & AUTO [id number] 04:59:00 Test Item Value Reference Range Interpretation [...] WBC 0-0 (BEAKER) (test code = 413) [id number] 07:03:00 Test Item Value Reference Range Interpretation Comments LIPASE (BEAKER) (test code = 749) 40 U/L 8-78 COMPREHENSIVE METABOLIC [id number] 07:03:00 Test Item Value Reference Range Interpretation [...] PATIEN TS. CBC W/PLT COUNT & AUTO [id number] 06:03:00 Test Item Value Reference Range Interpretation [...] 0-1 PERCENT (BEAKER) (test code = 2801) [id number] 07:19:00 Test Item Value Reference Range Interpretation Comments LIPASE (BEAKER) (test code = 749) 37 U/L 8-78 COMPREHENSIVE METABOLIC [id number] 07:19:00 Test Item Value Reference Range Interpretation [...] PATIEN TS. CBC W/PLT COUNT & AUTO [id number] 05:30:00 Test Item Value Reference Range Interpretation [...] (BEAKER) (test code = 2801) BASIC METABOLIC [id number] 20:44:00 Test Item Value Reference Range Interpretation [...] 0-0 (BEAKER) (test code = 413) PROTHROMBIN [id number] 15:49:00 Test Item Value Reference Range Interpretation [...] mechanical heart valves.RAD, CHEST, 1 VIEW, NON [id number] 15:13:00Reason for exam:->preopShould this be performed at the bedside?->YesFINAL REPORT INDICATION: preop COMPARISON: None TECHNIQUE: Single frontal view of the chest. FINDINGS: Lungs and pleura: Clear lungs. No effusion.Heart and mediastinum: Normal heart size. Unremarkable mediastinal contours.Osseous structures: No acute abnormality.Other: None. IMPRESSION: No acute intrathoracic abnormality. Signed: Charmaine Soliz Verified Date/Time: 06/25/2019 15:13:30 Reading Location: [facility] Radiology Reading Room [id number] 11:37:00 Test Item Value Reference Range Interpretation Comments LIPASE (BEAKER) (test code = 749) 168 U/L 8-78 H COMPREHENSIVE METABOLIC [id number] 11:37:00 Test Item Value Reference Range Interpretation [...] PATIEN TS. CBC W/PLT COUNT & AUTO [id number] 11:16:00 Test Item Value Reference Range Interpretation [...]
--- NOTE | 2023-04-28 18:56 | RAD REPORT ---
EXAM DESCRIPTION: RAD - Chest Single View - 04/28/2023 6:45 pm CLINICAL HISTORY: vomiting COMPARISON: Chest Single View dated 04/13/2023; Chest Single View dated 04/08/2023; Chest Pa And Lat (2 Views) dated 07/21/2020; Chest Single View dated 10/18/2018 FINDINGS: Lines: None. Lungs: No evidence of edema or pneumonia. Pleural: No significant pleural effusions or pneumothorax. Cardiac: The heart size is within normal limits. Mediastinum: Within normal limits. Bones: No acute fractures. Other: None IMPRESSION: No acute cardiopulmonary disease.
--- NOTE | 2023-04-28 19:00 | RAD REPORT ---
EXAM DESCRIPTION: CT - Head Brain Wo Cont - 04/28/2023 6:52 pm CLINICAL HISTORY: WEAKNESS COMPARISON: Head Brain Wo Cont dated 04/23/2023; Head Brain Wo Cont dated 10/18/2018 TECHNIQUE: All CT scans are performed using dose optimization technique as appropriate and may inclu de automated exposure control or mA/KV adjustment according to patient size. FINDINGS: No intracranial hemorrhage, hydrocephalus or extra-axial fluid collection.No areas of brai n edema or evidence of midline shift. The paranasal sinuses and mastoids are clear. The calvarium is intact. IMPRESSION: No acute intracranial abnormality.
[2023-04-28] MEDS ORDERED: ONDANSETRON 4 MG/2 ML VIAL ONE (19:11)
[2023-04-28] MEDS ORDERED: FAMOTIDINE 20 MG/2 ML VIAL IV ONE (19:11)
[2023-04-28] MEDS ORDERED: NA CHLORIDE 0.9% 0 ML ONE (19:11)
[2023-04-28 19:55] LABS: Absolute Lymphocytes (CBC) 1.3 K/uL (0.7-4.9); Lymphocytes % 29.1 % (15.3-44.8); MPV 6.4 fL (7.6-11.3); RBC Red Blood Cell Count 3.89 M/uL (3.86-4.86)
[2023-04-28 20:03] LABS: Protime INR 0.9
[2023-04-28 20:15] LABS: Albumin 2.6 g/dL (3.4-5.0); Bilirubin Direct 0.1 mg/dL (0-0.2); Bilirubin Indirect, Calculated 0.4 mg/dL (0.2-0.8); Bilirubin Total 0.5 mg/dL (0.2-1.0); Magnesium 1.5 mg/dL (1.6-2.4); Potassium 3.4 mEq/L (3.5-5.1); Protein, Total 5.5 g/dL (6.4-8.2); Troponin High Sensitivity 7.2 pg/mL (<58.9)
[2023-04-28 20:21] LABS: Specific Gravity 1.019 (1.005-1.030); Urine Bacteria 20-50 /HPF (<20); Urine Bilirubin NEGATIVE (Negative); Urine Blood Negative (Negative); Urine Clarity Extremely Turbid (Clear); Urine Color Yellow (Yellow); Urine Glucose NEGATIVE (Negative); Urine Mucus Slight /HPF (None Seen); Urine Protein 1+ (Negative); Urine Urobilinogen Normal (Normal); Urine pH 6.5 (5.0-7.0)
[2023-04-28] MEDS ORDERED: POTASSIUM 25 MEQ EFFERV TAB ONE (20:58)
[2023-04-28] MEDS ORDERED: HYDROMORPHONE HCL 1 MG/ML INJ ONE (20:59)
--- NOTE | 2023-04-28 21:53 | RAD REPORT ---
EXAM DESCRIPTION: CTAbdomen Pelvis W Contrast - 04/28/2023 9:33 pm CLINICAL HISTORY: ABD PAIN COMPARISON: Abdomen Pelvis W Contrast dated 06/25/2019; Abdomen Pelvis W Contrast dated 12/07/2017; Abdomen Pelvis W Contrast dated 09/16/2016; Abdomen Pelvis W Contrast dated 01/15/2016 TECHNIQUE: CT of the abdomen and pelvis was performed. All CT scans are performed using dose optimization technique as appropriate and may include automated exposure control or mA/KV adjustment according to patient size. FINDINGS: Lower chest: No acute abnormality. Liver: No acute abnormality or suspicious lesions. Biliary: Mild intrahepatic biliary duct dilatation and extrahepatic biliary duct dilatation. This may be related to the postcholecystectomy state. Stomach: Marlys-en-Y gastric bypass. Duodenum: No significant focal abnormality. Pancreas: No significant abnormality. Spleen: No significant abnormality. Adrenal: No suspicious lesions. Kidney/ureter: No hydronephrosis. No renal calculi. Retroperitoneum: No retroperitoneal adenopathy. Vascular: No aneurysm. Bowel: No significant focal abnormality. Peritoneum: No ascites or free air. Bladder: Grossly unremarkable. Reproductive: No adnexal masses. Bones: No acute fracture. Grade 2 anterolisthesis of L4 on L5. Remote rib fractures. Other: n/a IMPRESSION: No acute intra-abdominal or pelvic finding.
--- NOTE | 2023-04-28 22:22 | ER ---
Nurse's Notes [facility] Name: Janice Bosch Age: 57 yrs Sex: Female : 1965 Arrival Date: 04/28/2023 Time: 18:13 Bed 18 Private MD: Diagnosis: Nausea with vomiting, unspecified;Acidosis;UTI/ Urinary tract infection, site not specified Presentation: 04/28 18:12 Chief complaint: EMS states: PATIENT TODAY WITH N/V. SEEN TUESDAY FOR PSYCH AND LOW db POTASSIUM. Coronavirus screen: Vaccine status: Patient reports receiving the 2nd dose of the covid vaccine. Client denies travel out of the [place] in the last 14 days. At this time, the client does not indicate any symptoms associated with coronavirus-19. Ebola Screen: Patient negative for fever greater than or equal to 101.5 degrees Fahrenheit, and additional compatible Ebola Virus Disease symptoms Patient denies exposure to infectious person. Patient denies travel to an Ebola-affected area in the 21 days before illness onset. No symptoms or risks identified at this time. Initial Sepsis Screen: Does the patient meet any 2 criteria? No. Patient's initial sepsis screen is negative. Does the patient have a suspected source of infection? No. Patient's initial sepsis screen is negative. Risk Assessment: Do you want to hurt yourself or someone else? Patient reports no desire to harm self or others. Onset of symptoms was April 28, 2023. 18:12 Method Of Arrival: EMS: [facility] db 18:12 Acuity: BONITA 3 db Triage Assessment: 18:39 General: Appears in no apparent distress. comfortable, Behavior is calm, cooperative. db Pain: Denies pain. Neuro: Level of Consciousness is awake, alert, obeys commands, Oriented to person, place, time, situation, Speech is normal. Respiratory: Airway is patent Respiratory effort is even, unlabored, Respiratory pattern is regular, symmetrical. GI: Reports nausea, vomiting. Historical: - Allergies: 18:39 Reglan; db 18:39 Requip; db - PMHx: 18:39 Bipolar disorder; bowel obstruction; Fibromyalgia; Hypertension; ibs; Migraines; db - PSHx: 18:39 Appendectomy; section; Cholecystectomy; Gastric Bypass; hysterectomy; db - Immunization history:: Client reports receiving the 2nd dose of the Covid vaccine. - Social history:: Smoking status: Patient denies any tobacco usage or history of. Screenin:44 [facility] ED Fall Risk Assessment (Adult) History of falling in the last 3 months, db including since admission No falls in past 3 months (0 pts) Confusion or Disorientation No (0 pts) Intoxicated or Sedated No (0 pts) Impaired Gait No (0 pts) Mobility Assist Device Used No (0 pt) Altered Elimination No (0 pt) Score/Fall Risk Level 0 - 2 = Low Risk Oriented to surroundings, Maintained a safe environment. Abuse screen: Denies threats or abuse. Denies injuries from another. Nutritional screening: No deficits noted. Tuberculosis screening: No symptoms or risk factors identified. Assessment: 18:30 Reassessment: SEE TRIAGE FOR INITIAL ASSESSMENT. db 18:44 Reassessment: PATIENT TO CT. db 19:46 General: Appears uncomfortable, Behavior is cooperative, anxious. Pain: Complains of ha1 pain in abdomen and head Pain does not radiate. Pain currently is 8 out of 10 on a pain scale. Quality of pain is described as crampy, pressure. Neuro: Level of Consciousness is awake, alert, obeys commands, Oriented to person, place, time, situation. Cardiovascular: Patient's skin is warm and dry. Respiratory: Airway is patent Respiratory effort is even, unlabored, Respiratory pattern is regular, symmetrical. GI: Abdomen is flat, non-distended, Bowel sounds present X 4 quads. Reports lower abdominal pain. : No signs and/or symptoms were reported regarding the genitourinary system. Derm: Skin is pale. Musculoskeletal: Circulation, motion, and sensation intact. 20:24 Reassessment: Patient and/or family updated on plan of care and expected duration. Pain ha1 level reassessed. Patient is alert, oriented x 3, equal unlabored respirations, skin warm/dry/pink. pain 7/10. 21:20 Reassessment: Patient and/or family updated on plan of care and expected duration. Pain ha1 level reassessed. Patient is alert, oriented x 3, equal unlabored respirations, skin warm/dry/pink. pain 9/10 notified care provider. 22:20 Reassessment: Patient and/or family updated on plan of care and expected duration. Pain ha1 level reassessed. Patient is alert, oriented x 3, equal unlabored respirations, skin warm/dry/pink. 23:20 Reassessment: Patient and/or family updated on plan of care and expected duration. Pain ha1 level reassessed. Patient is alert, oriented x 3, equal unlabored respirations, skin warm/dry/pink. 04/29 00:20 Reassessment: Patient and/or family updated on plan of care and expected duration. Pain ha1 level reassessed. Patient is alert, oriented x 3, equal unlabored respirations, skin warm/dry/pink. Vital Signs: 04/28 18:12 BP 118 / 84; Pulse 92; Resp 16; Temp 97.9(O); Pulse Ox 99% ; Weight 56.7 kg; Height 5 db ft. 2 in. ; Pain 0/10; 19:35 BP 117 / 72; Pulse 108; Resp 19 S; Pulse Ox 100% on R/A; ha1 20:24 BP 118 / 73; Pulse 95; Resp 18 S; Pulse Ox 100% on R/A; ha1 21:00 BP 131 / 75; Pulse 94; Resp 98 S; Pulse Ox 100% on R/A; ha1 22:00 BP 125 / 68; Pulse 92; Resp 18 S; Pulse Ox 100% on R/A; ha1 23:00 BP 130 / 76; Pulse 85; Resp 16 S; Pulse Ox 99% on R/A; ha1 04/29 00:00 BP 125 / 71; Pulse 98; Resp 18 S; Temp 97.7; Pulse Ox 100% on R/A; ha1 04/28 18:12 Body Mass Index 22.86 (56.70 kg, 157.48 cm) db 04/28 18:12 Pain Scale: Adult db ED Course: 04/28 18:19 Patient arrived in ED. db 18:22 Mj Bhatti PA is PHCP. cp 18:22 Angely Platt MD is Attending Physician. cp 18:30 Maintain EMS IV. Dressing intact. Good blood return noted. Site clean \T\ dry. Gauge \T\ db site: 20G LAC. 18:39 Triage completed. db 18:43 France Garcia, RN is Primary Nurse. db 18:43 Arm band placed on Patient placed in an exam room. EKG completed in triage. Results db shown to MD. 18:47 XRAY Chest (1 view) In Process Unspecified. EDMS 18:54 CT Head Brain wo Cont In Process Unspecified. EDMS 19:10 Patient has correct armband on for positive identification. Placed in gown. Bed in low ha1 position. Call light in reach. Side rails up X 1. Adult w/ patient. 19:46 Sanjana Godinez, RN is Primary Nurse. ha1 21:10 No provider procedures requiring assistance completed. Inserted saline lock: 22 gauge ha1 in left antecubital area, using aseptic technique. 21:35 CT Abd/Pelvis - IV Contrast Only In Process Unspecified. EDMS 22:21 Prashanth Ziegler is Hospitalizing Provider. 04/29 01:10 Patient admitted, IV remains in place. ha1 01:30 Provided Education on: need fro admission. ha1 Administered Medications: 04/28 19:00 Drug: NS 0.9% IV 1000 ml Route: IV; Rate: 1000 ml/hr; Site: left hand; ha1 19:02 Drug: Famotidine IVP 20 mg Route: IVP; Site: left hand; ha1 19:05 Drug: Ondansetron IVP 4 mg Route: IVP; Site: left hand; ha1 20:50 Drug: HYDROmorphone IVP 1 mg Route: IVP; Site: left hand; ha1 20:53 Drug: Potassium PO Effervescent Tablet 25 mEq Route: PO; ha1 22:32 Drug: Rocephin IV 1 grams Route: IV; Rate: calculated rate; Site: left hand; ha1 22:38 Follow up: Response: No adverse reaction ha1 22:40 Drug: Magnesium Sulfate IVPB 1 grams Route: IVPB; Infused Over: 1 hrs; Site: left hand; ha1 Medication: 04/29 01:30 VIS not applicable for this client. ha1 Outcome: 04/28 22:22 Decision to Hospitalize by Provider. 04/29 01:30 Admitted to Tele accompanied by nurse, via stretcher, room 430, with chart, Report ha1 called to LEONID Bosch 01:30 Condition: stable ha1 01:30 Discharge instructions given to patient, family, Instructed on the need for admit. 01:32 Patient left the ED. kl Signatures: Dispatcher [employer] Samia Ryan RN RN kl Page, Corey, PA PA cp Godinez, Sanjana, RN RN ha1 France Garcia, RN RN db
--- NOTE | 2023-04-28 22:22 | EDPHYS ---
Physician Documentation [facility] Name: Janice Bosch Age: 57 yrs Sex: Female : 1965 Arrival Date: 04/28/2023 Time: 18:13 Bed 18 Private MD: ED Physician Angely Platt HPI: 04/28 18:35 This 57 yrs old Female presents to ER via EMS with complaints of Nausea/Vomiting. cp 18:35 The patient presents to the emergency department with nausea, with "dry heaves", cp vomiting, that is intermittent, described as bilious, abdominal pain. 18:35 Onset: The symptoms/episode began/occurred 2 day(s) ago. Associated signs and symptoms: cp Pertinent positives: anorexia, Pertinent negatives: constipation, diarrhea, fever, GI bleeding. Severity of symptoms: in the emergency department the symptoms are unchanged despite home interventions. Historical: - Allergies: 18:39 Reglan; db 18:39 Requip; db - PMHx: 18:39 Bipolar disorder; bowel obstruction; Fibromyalgia; Hypertension; ibs; Migraines; db - PSHx: 18:39 Appendectomy; section; Cholecystectomy; Gastric Bypass; hysterectomy; db - Immunization history:: Client reports receiving the 2nd dose of the Covid vaccine. - Social history:: Smoking status: Patient denies any tobacco usage or history of. ROS: 18:40 Constitutional: Positive for poor PO intake, Negative for body aches, chills, fever. cp 18:40 Eyes: Negative for injury, pain, redness, and discharge. cp 18:40 ENT: Negative for drainage from ear(s), ear pain, sore throat, difficulty swallowing, difficulty handling secretions. 18:40 Cardiovascular: Negative for chest pain, palpitations. 18:40 Respiratory: Negative for cough, shortness of breath, wheezing. 18:40 Abdomen/GI: Positive for abdominal pain, nausea and vomiting, anorexia, Negative for diarrhea, constipation, hematemesis, black/tarry stool, rectal bleeding. 18:40 Back: Negative for pain at rest, pain with movement. 18:40 : Negative for urinary symptoms. 18:40 Neuro: Negative for loss of consciousness, syncope. 18:40 All other systems are negative. Exam: 18:45 Constitutional: The patient appears in no acute distress, alert, awake, cp non-diaphoretic, non-toxic, well developed, well nourished. 18:45 Head/Face: Normocephalic, atraumatic. cp 18:45 Eyes: Periorbital structures: appear normal, Pupils: equal, round, and reactive to light and accomodation, Conjunctiva: normal, no exudate, no injection, Sclera: no appreciated abnormality, Lids and lashes: appear normal, bilaterally. 18:45 ENT: External ear(s): are unremarkable, Nose: is normal, Mouth: Lips: dry, Oral mucosa: pink and intact, dry, Posterior pharynx: is normal, airway is patent, no erythema, no exudate. 18:45 Neck: C-spine: vertebral tenderness, is not appreciated, crepitus, is not appreciated, ROM/movement: is normal, is supple, no range of motions limitations, no meningismus, no nuchal rigidity. 18:45 Chest/axilla: Inspection: normal, Palpation: is normal, no crepitus, no tenderness. 18:45 Cardiovascular: Rate: normal, Rhythm: regular, Edema: is not appreciated, JVD: is not appreciated. 18:45 Respiratory: the patient does not display signs of respiratory distress, Respirations: normal, no use of accessory muscles, no retractions, labored breathing, is not present, Breath sounds: are clear throughout, no decreased breath sounds, no stridor, no wheezing. 18:45 Abdomen/GI: Inspection: abdomen appears normal, Bowel sounds: active, all quadrants, Palpation: soft, in all quadrants, severe abdominal tenderness, in all quadrants, rebound tenderness, is not appreciated. 18:45 Back: CVA tenderness, is absent. 18:45 Neuro: Orientation: to person, situation, Mentation: able to follow commands, slow to respond, Motor: moves all fours. 19:12 ECG was reviewed by the Attending Physician. cp Vital Signs: 18:12 BP 118 / 84; Pulse 92; Resp 16; Temp 97.9(O); Pulse Ox 99% ; Weight 56.7 kg; Height 5 db ft. 2 in. ; Pain 0/10; 19:35 BP 117 / 72; Pulse 108; Resp 19 S; Pulse Ox 100% on R/A; ha1 20:24 BP 118 / 73; Pulse 95; Resp 18 S; Pulse Ox 100% on R/A; ha1 21:00 BP 131 / 75; Pulse 94; Resp 98 S; Pulse Ox 100% on R/A; ha1 22:00 BP 125 / 68; Pulse 92; Resp 18 S; Pulse Ox 100% on R/A; ha1 23:00 BP 130 / 76; Pulse 85; Resp 16 S; Pulse Ox 99% on R/A; ha1 04/29 00:00 BP 125 / 71; Pulse 98; Resp 18 S; Temp 97.7; Pulse Ox 100% on R/A; ha1 04/28 18:12 Body Mass Index 22.86 (56.70 kg, 157.48 cm) db 04/28 18:12 Pain Scale: Adult db MDM: 04/28 18:22 Patient medically screened. cp 22:10 Data reviewed: vital signs, nurses notes, lab test result(s), EKG, radiologic studies, cp CT scan, plain films. 22:10 Differential diagnosis: Nonspecific abd pain, gastritis, cholecystitis, pancreatitis, cp viral gastroenteritis, gastroenteritis. Consideration of Admission/Observation Patient was admitted/placed on observation. Management of patient was discussed with the following: Hospitalist: Kavya Case, [employer] will admit after discussion. I considered the following discharge prescriptions or medication management in the emergency department Medications were administered in the Emergency Department. See MAR. Care significantly affected by the following chronic conditions: Hypertension. Counseling: I had a detailed discussion with the patient and/or guardian regarding: the historical points, exam findings, and any diagnostic results supporting the discharge/admit diagnosis, lab results, radiology results. Response to treatment: the patient's symptoms have mildly improved after treatment. 04/28 18:33 Order name: Basic Metabolic Panel; Complete Time: 20:29 04/28 20:30 Interpretation: Normal except: K 3.4; CL 111; CO2 15; ANION GAP 16.4; GFR 76. 04/28 18:33 Order name: CBC with Diff; Complete Time: 20:29 04/28 20:30 Interpretation: Normal except: HGB 11.5; HCT 35.0; MPV 6.4; MN% 16.1. 04/28 18:33 Order name: LFT's; Complete Time: 20:29 04/28 20:30 Interpretation: Normal except: ALK 142; TP 5.5; ALB 2.6; A/G 0.9. cp 04/28 18:33 Order name: Magnesium; Complete Time: 20:29 cp 04/28 20:31 Interpretation: Abnormal: MG 1.5. cp 04/28 18:33 Order name: NT PRO-BNP; Complete Time: 20:29 cp 04/28 20:32 Interpretation: Reviewed. cp 04/28 18:33 Order name: PT-INR; Complete Time: 20:29 cp 04/28 18:33 Order name: Troponin HS; Complete Time: 20:29 cp 04/28 20:33 Interpretation: Troponin HS 7.2; Reviewed. cp 04/28 18:33 Order name: Urinalysis W/Microscopic; Complete Time: 20:29 cp 04/28 20:30 Interpretation: Normal except: [facility] Extremely Turbid; UKET 2+; UPROT 1+; UESTR 500; cp UWBC 10-20; URBC 5-10; UBACT 20-50; THOMAS Cx 2+; HYAL 5-10. 04/28 18:33 Order name: Lipase; Complete Time: 20:29 cp 04/28 20:25 Order name: Urine Culture EDKY 04/28 21:01 Order name: Lactate w/ 2H reflex if indic.; Complete Time: 23:41 cp 04/28 21:01 Order name: Blood Culture Adult (2) 04/28 22:17 Order name: Urinalysis w/ reflexes EDMS 04/28 22:17 Order name: Urinalysis w/ reflexes EDKY 04/28 22:17 Order name: Basic Metabolic Panel EDMS 04/28 22:17 Order name: Basic Metabolic Panel EDMS 04/28 22:17 Order name: Basic Metabolic Panel EDMS 04/28 22:17 Order name: Basic Metabolic Panel EDMS 04/28 22:17 Order name: CBC with Automated Diff EDMS 04/28 22:17 Order name: CBC with Automated Diff EDMS 04/28 22:17 Order name: CBC with Automated Diff EDMS 04/28 22:17 Order name: CBC with Automated Diff EDMS 04/28 22:17 Order name: Magnesium EDMS 04/28 22:17 Order name: Magnesium EDMS 04/28 22:17 Order name: Magnesium EDMS 04/28 22:17 Order name: Magnesium EDMS 04/28 23:07 Order name: ABG 04/28 23:35 Order name: ABG Arterial Blood Gas; Complete Time: 23:41 [facility] 04/28 23:42 Interpretation: Reviewed. 04/28 18:33 Order name: XRAY Chest (1 view); Complete Time: 20:29 04/28 18:33 Order name: CT Head Brain wo Cont; Complete Time: 20:29 04/28 20:52 Order name: CT Abd/Pelvis - IV Contrast Only; Complete Time: 21:54 04/28 18:33 Order name: EKG; Complete Time: 18:34 04/28 22:12 Order name: CONS Physician Consult [facility] 04/28 22:16 Order name: Full Liquid [facility] 04/28 18:33 Order name: Cardiac monitoring; Complete Time: 19:20 04/28 18:33 Order name: EKG - Nurse/Tech; Complete Time: 19:20 04/28 18:33 Order name: IV Saline Lock; Complete Time: 19:20 04/28 18:33 Order name: Labs collected and sent; Complete Time: 19:20 04/28 18:33 Order name: O2 Per Protocol; Complete Time: 19:21 04/28 18:33 Order name: O2 Sat Monitoring; Complete Time: 19:20 cp EC:12 Rate is 98 beats/min. Rhythm is regular. WA interval is normal. QRS interval is normal. cp QT interval is normal. Interpreted by me. Reviewed by me. Administered Medications: 19:00 Drug: NS 0.9% IV 1000 ml Route: IV; Rate: 1000 ml/hr; Site: left hand; ha1 19:02 Drug: Famotidine IVP 20 mg Route: IVP; Site: left hand; ha1 19:05 Drug: Ondansetron IVP 4 mg Route: IVP; Site: left hand; ha1 20:50 Drug: HYDROmorphone IVP 1 mg Route: IVP; Site: left hand; ha1 20:53 Drug: Potassium PO Effervescent Tablet 25 mEq Route: PO; ha1 22:32 Drug: Rocephin IV 1 grams Route: IV; Rate: calculated rate; Site: left hand; ha1 22:38 Follow up: Response: No adverse reaction ha1 22:40 Drug: Magnesium Sulfate IVPB 1 grams Route: IVPB; Infused Over: 1 hrs; Site: left hand; ha Disposition Summary: 04/28/23 22:22 Hospitalization Ordered Hospitalization Status: Inpatient Admission cp Provider: Prashanth Ziegler cp Location: Telemetry/MedSurg (Inpatient) cp Condition: Stable cp Problem: new cp Symptoms: have improved cp Bed/Room Type: Standard cp Room Assignment: 430(04/29/23 00:08) mw Diagnosis - Nausea with vomiting, unspecified cp - Acidosis cp - UTI/ Urinary tract infection, site not specified cp Forms: - Medication Reconciliation Form cp - SBAR form cp Signatures: Dispatcher [employer] EDJackelin Alas RN RN mw Mj Bhatti PA PA cp Sanjana Godinez RN RN [facility] [place] Garcia RN RN db Corrections: (The following items were deleted from the chart) 04/29 00:08 04/28 22:22 cp mw
[2023-04-28] MEDS ORDERED: LORazepam 2 MG/ML VIAL IV ONE (22:30)
[2023-04-28] MEDS ORDERED: MAGNESIUM SULFATE 1 gm IVPB 1 GM/100 ML BAG IV ONE (22:58)
[2023-04-28] MEDS ORDERED: CEFTRIAXONE 1000 MG/VIAL ONE (22:58)
[2023-04-28] MEDS ORDERED: NA CHLORIDE 0.9% 50 ML ONE (22:59)
[2023-04-28] MEDS: NA CHLORIDE 0.9% 1,000 ML IV SCH (23:00)
[2023-04-28] MEDS ORDERED: POTASSIUM CL 40 MEQ in NA CHLORIDE 0.9% 500 ML IV ONE (23:00)
--- NOTE | 2023-04-28 23:04 | P.HP ---
Certification for Inpatient Patient admitted to: Inpatient With expected LOS: <2 Midnights Patient will require the following post-hospital care: None Practitioner: I am a practitioner with admitting privileges, knowledge of patient current condition, hospital course, and medical plan of care. Services: Services provided to patient in accordance with Admission requirements found in Title 42 Section 412.3 of the Code of Federal Regulations Patient History Date of Service: 04/29/23 Reason for admission: acute cystitis, nausea vomiting History of Present Illness: 57-year-old female with a past medical history of bipolar, fibromyalgia, migraines, IBS, hypertension, history of Marlys-en-Y bypass in the presents to the emergency room for nausea, generalized weakness, fall today. reports she fell last week, fell today due to generalized weakness, she denies loss of consciousness. reports she has intermittent nausea vomiting couple ti mes a week. She reports vomiting started today, poor appetite. Reports mild associated suprapubic abdominal tenderness. she denies fever, chills, denies flank pain, denies chest pain, cough, shortness of breath. Plan to admit for acute cystitis, nausea vomiting, acidosis. Laboratory evaluation mild hypokalemia 3.4-magnesium 1.5, troponin is normal at 7.2, elevated BNP at 342, CBC normal WBCs, normocytic anemia hemoglobin 11.5, 35.0. urinalysis greater than 500 leukoesterase, 20-50 bacteria, 5-10 hyaline cast, nitrite negative. CT of the head no acute abnormality, Chest x-ray heart insulin with within normal size, no acute cardiopulmonary process CT of the abdomen pelvis no acute intra-abdominal pelvic finding, no hydronephrosis, no renal calculi Allergies metoclopramide HCl [From Reglan] Allergy (Mild, Verified 01/05/23 08:48) Hives/Rash ropinirole HCl [From Requip] Allergy (Mild, Verified 01/05/23 08:48) Nausea/Vomiting Home Medications: Tizanidine [Zanaflex*] 4 mg PO BEDTIME PRN PRN 07/21/20 Diclofenac Sodium 50 mg PO BID 11/17/22 LORazepam [Ativan*] 0.5 mg PO BID PRN 11/17/22 Venlafaxine HCl [Effexor Xr] 225 mg PO DAILY 11/17/22 Levothyroxine [Synthroid*] 50 mcg PO [id number] 01/04/23 Pantoprazole [Protonix Tab*] 40 mg PO BEDTIME 01/04/23 Propranolol HCl 20 mg PO BID 01/04/23 hydrOXYzine HCL [Atarax] 50 mg PO BIDP PRN 01/04/23 Cholecalciferol (Vitamin D3) [Vitamin D3] 5,000 unit PO DAILY 01/05/23 Hydrocodone 10/APAP 325 [[place] 10/325*] 1 tab PO Q4HP PRN 04/13/23 Meclizine HCl [Antivert] 25 mg PO Q8HP PRN 04/13/23 Docusate [Colace Cap*] 100 mg PO BID 04/24/23 Mecobalamin [B12 Active] 3,000 mcg PO DAILY 04/24/23 Ped Multivit 43/Iron Fumarate [Flintstones Complete Chew Tab] 1 tab PO DAILY 04/24/23 Gabapentin 300 mg PO TID #90 tab 04/26/23 Ziprasidone [Geodon*] 60 mg PO BEDTIME #90 cap 04/26/23 - Past Medical/Surgical History Diabetic: No -: Intestinal blockage -: Bipolar disorder, , depression -: Fibromyalgia -: Hypertension -: Migraine headache -: IBS -: Anxiety disorder -: Insomnia -: bulging disc -: 2 csec -: hyst -: appy -: anderson -: gastric bypass -: L fractured wrist w/ plates and screws - Family History Mother -: Heart disease, Cancer Notes: cardiac stent. lung cancer - Social History Alcohol use: No CD- Drugs: No Caffeine use: Yes Review of Systems 10-point ROS is otherwise unremarkable Physical Examination - Physical Exam General: Alert, Oriented x3 (60), Other (anxious) HEENT: Atraumatic, Normocephalic, PERRLA Neck: Supple, 2+ carotid pulse no bruit, JVD not distended Respiratory: Clear to auscultation bilaterally, Normal air movement Cardiovascular: No edema, Normal pulses, Regular rate/rhythm Gastrointestinal: Normal bowel sounds, Other (Suprapubic tenderness) Musculoskeletal: No clubbing, No swelling Integumentary: No rashes, No breakdown Neurological: Normal strength at 5/5 x4 extr, Cranial nerves 3-12 intact - Studies Laboratory Data (last 24 hrs) 04/28/23 19:47: PT 10.8, INR 0.90 04/28/23 19:47: WBC 4.40, Hgb 11.5 L, Hct 35.0 L, Plt Count 371 04/28/23 19:47: Sodium 139, Potassium 3.4 L, BUN 9, Creatinine 0.88, Glucose 95, Magnesium 1.5 L, Total Bilirubin 0.5, AST 34, ALT 42, Alkaline Phosphatase 142 H, Lipase 36 Assessment and Plan - Plan Assessment plan Acute cystitis Nausea vomiting Acidosis Hypokalemia Hypomagnesia Generalized weakness Fall Normocytic anemia Elevated BNP History of hypertension History of bipolar History of gastric bypass DVT prophylaxis Assessment /plan Acute cystitis IV ceftriaxone antibiotics, IV fluids, urinalysis greater than 500 leukoesterase, 20-50 bacteria, 5-10 hyaline cast, nitrite negative. Infectious disease consult, urine culture, blood culture Nausea vomiting As needed antiemetics CT of the abdomen pelvis no acute intra-abdominal pelvic finding, no hydronephrosis, no renal calculi Acidosis likely secondary to nausea vomiting, IV fluids, as needed antiemetics Hypokalemia Hypomagnesia Trend electrolytes replace as needed mild hypokalemia 3.4-magnesium 1.5, Generalized weakness Fall Fall precautions CT of the head no acute abnormality, PT eval for ambulation and frequent falls 88 Normocytic anemia CBC normal WBCs, normocytic anemia hemoglobin 11.5, 35.0. Trend H&H Elevated BNP Chest x-ray heart insulin with within normal size, no acute cardiopulmonary process History of hypertension History of bipolar History of gastric bypass Resume appropriate home medications DVT prophylaxis Lovenox Diet clear liquid Full code Discharge Plan: Home Plan to discharge in: 48 Hours - Advance Directives Does patient have a Living Will: No Does patient have a Durable POA for Healthcare: No - Code Status/Comfort Care Code Status: Full Code Physician Review: Patient Assessed, Agree with Above Assessment and Plan Critical Care: No Time Spent Managing Pts Care (In Minutes): 50
[2023-04-28 23:34] LABS: Blood Gas Oxyhemoglobin 92.2 % (94-97)
[2023-04-29] MEDS ORDERED: LORazepam 2 MG/ML VIAL ONE (00:27)
[2023-04-29] MEDS ORDERED: NA CHLORIDE 0.9% 1,000 ML ONE (00:27)
[2023-04-29] MEDS ORDERED: ONDANSETRON 4 MG/2 ML VIAL ONE ×2 (00:27→00:30)
[2023-04-29] MEDS: ONDANSETRON 4 MG/2 ML VIAL IV PRN ×4 (00:30→17:58)
[2023-04-29 01:46] VITALS: O2SAT 100
[2023-04-29] MEDS ORDERED: MORPHINE 2 MG/ML SYR IV ONE ×2 (01:50→05:39)
[2023-04-29 01:55] VITALS: BMI 21.0
[2023-04-29] MEDS: KCL 20 MEQ/100 mL IVPB 20 MEQ/100 ML BAG IV SCH ×2 (01:59→05:07)
[2023-04-29 03:49] LABS: Absolute Lymphocytes (CBC) 1.9 K/uL (0.7-4.9); Hematocrit 32.2 % (36.0-45.0); Lymphocytes % 33.3 % (15.3-44.8); MCV 89.9 fL (80-100); MPV 6.9 fL (7.6-11.3); RBC Red Blood Cell Count 3.58 M/uL (3.86-4.86)
[2023-04-29 04:07] LABS: Potassium 2.8 mEq/L (3.5-5.1)
[2023-04-29] MEDS ORDERED: SODIUM CHLORIDE 0.9% 10ML INJ IV PRN (08:57)
[2023-04-29] MEDS: NA CHLORIDE 0.9% 1,000 ML IV SCH ×2 (09:00→17:58)
[2023-04-29] MEDS ORDERED: KCL 20 MEQ/100 mL IVPB 20 MEQ/100 ML BAG IV SCH (09:00)
[2023-04-29] MEDS: PANTOPRAZOLE 40 MG INJ IVP SCH ×2 (09:07→22:01)
[2023-04-29] MEDS: ENOXAPARIN 40 MG/0.4 ML SQ SCH (09:08)
[2023-04-29] MEDS: CEFTRIAXONE 2,000 MG in NA CHLORIDE 0.9% 100 ML IV SCH (09:08)
--- NOTE | 2023-04-29 09:53 | P.CNS ---
Date of Consult: 04/29/23 Reason for Consult: Acute Cystitis Chief Complaint: acute cystitis, nausea vomiting History of Present Illness: Patient is a 57-year-old female with a past medical history of bipolar disorder, fibromyalgia, migraines, IBS, hypertension, history of Marlys-en-Y bypass who presented to the ED with complaints of nausea, generalized weakness and suprapubic pain. Urine and blood cultures obtained. Patient admitted for further manegement. Allergies metoclopramide HCl [From Reglan] Allergy (Mild, Verified 01/05/23 08:48) Hives/Rash ropinirole HCl [From Requip] Allergy (Mild, Verified 01/05/23 08:48) Nausea/Vomiting Home medications list reviewed: Yes Home Medications: Tizanidine [Zanaflex*] 4 mg PO BEDTIME PRN PRN 07/21/20 Diclofenac Sodium 50 mg PO Q8H 11/17/22 LORazepam [Ativan*] 1 mg PO BID PRN 11/17/22 Venlafaxine HCl [Effexor Xr] 225 mg PO DAILY 11/17/22 Levothyroxine [Synthroid*] 50 mcg PO [id number] 01/04/23 Pantoprazole [Protonix Tab*] 40 mg PO BEDTIME 01/04/23 Propranolol HCl 20 mg PO BID 01/04/23 hydrOXYzine HCL [Atarax] 50 mg PO BIDP PRN 01/04/23 Cholecalciferol (Vitamin D3) [Vitamin D3] 5,000 unit PO DAILY 01/05/23 Hydrocodone 10/APAP 325 [[place] 10/325*] 1 tab PO Q6HP PRN 04/13/23 Meclizine HCl [Antivert] 25 mg PO Q8HP PRN 04/13/23 Docusate [Colace Cap*] 100 mg PO BID 04/24/23 Mecobalamin [B12 Active] 3,000 mcg PO DAILY 04/24/23 Ped Multivit 43/Iron Fumarate [Flintstones Complete Chew Tab] 1 tab PO DAILY 04/24/23 Gabapentin 300 mg PO TID #90 tab 04/26/23 Ziprasidone [Geodon*] 60 mg PO BEDTIME #90 cap 04/26/23 lamoTRIgine [Lamotrigine] 200 mg PO DAILY 04/29/23 - Past Medical/Surgical History Diabetic: No -: Intestinal blockage -: Bipolar disorder, , depression -: Fibromyalgia -: Hypertension -: Migraine headache -: IBS -: Anxiety disorder -: Insomnia -: bulging disc -: 2 csec -: hyst -: appy -: anderson -: gastric bypass -: L fractured wrist w/ plates and screws - Family History Mother Medical History: Heart disease, Cancer Notes: cardiac stent. lung cancer - Social History Smoking Status: Unknown if ever smoked Alcohol use: No CD- Drugs: No Caffeine use: Yes Place of Residence: Home Review of Systems 10-point ROS is otherwise unremarkable General: Weakness, Malaise Gastrointestinal: Nausea, Vomiting Genitourinary: Dysuria, Other (suprapubic pain) Musculoskeletal: Back Pain Physical Examination Temp Pulse Resp BP Pulse Ox 97.7 F 98 H 18 125/71 97 04/29/23 01:44 04/29/23 01:44 04/29/23 06:11 04/29/23 01:44 04/29/23 06:11 General: Alert, Oriented x3, Mild distress HEENT: Atraumatic, Normocephalic Neck: Supple, JVD not distended Respiratory: Normal air movement, Other (room air) Cardiovascular: No edema, Normal pulses Gastrointestinal: Normal bowel sounds, Non-distended Musculoskeletal: No clubbing, No swelling Integumentary: No rashes, No breakdown Neurological: Normal speech Laboratory Data (last 24 hrs) 04/28/23 19:47: PT 10.8, INR 0.90 04/28/23 19:47: WBC 4.40, Hgb 11.5 L, Hct 35.0 L, Plt Count 371 04/28/23 19:47: Sodium 139, Potassium 3.4 L, BUN 9, Creatinine 0.88, Glucose 95, Magnesium 1.5 L, Total Bilirubin 0.5, AST 34, ALT 42, Alkaline Phosphatase 142 H, Lipase 36 Microbiology Data - Blood cultures 04/28: Pending - urine culture 04/28: Pending Imagings Data: - Reviewed Conclusions/Impression: Problem List Acute Cystitis Bipolar Disorder Fibromyalgia Migraines IBS Hypertension Hx Marlys-en-Y bypass Acute Cystitis - Urinalysis 04/28: 2+ ketones, LE 500, RBC 5-10, WBC 10-20, Bacteria 20-50, Hyaline cases 5-10, Protein 1+ - Urine culture 04/28: Pending - Patient reports dysuria, suprapubic pain, nausea and decreased appetite - CT abdomen pelvis 04/28: "No acute intra-abdominal or pelvic finding" - Currently on Rocephin IV (04/29-) Blood cultures 04/28: Pending No leukocytosis. Afebrile Recommendations - Continue Rocephin for now (started 04/29) - Follow up with urine and blood culture results and adjust antibiotics as ap propriate. Continue antibiotic therapy for at least 7 days. - supportive care and nutritional support as tolerated Case discussed with Aj Mayberry
[2023-04-29] MEDS ORDERED: MORPHINE 2 MG/ML SYR IV PRN (09:54)
--- NOTE | 2023-04-29 13:25 | EKG ---
Test Date: 2023-04-28 Test Time: 19:07:35 Geriatric Physician: SHALINI MEASUREMENT RESULTS: Intervals: Rate: 98 ND: 130 QRSD: 82 QT: 224 QTc: 285 [place]: P: 80 ND: 130 QRS: -61 T: 75 INTERPRETIVE STATEMENTS: Normal sinus rhythm Left anterior fascicular block Nonspecific ST and T wave abnormality Abnormal ECG Compared to ECG 04/25/2023 12:52:29 ST (T wave) deviation now present Electronically Signed On 04-29-23 13:24:09 CDT by Lee Braag
[2023-04-29] MEDS: MORPHINE 4 MG/ML SYR IV PRN ×3 (14:20→23:03)
[2023-04-29] MEDS ORDERED: POTASSIUM CL 40 MEQ in NA CHLORIDE 0.9% 500 ML IV ONE (17:34)
--- NOTE | 2023-04-29 19:05 | P.PN ---
Subjective Date of Service: 04/29/23 Chief Complaint: acute cystitis, nausea vomiting Patient is complaining of uncontrolled abdominal pain and nausea. She has not been able to tolerate clear liquid diet. No recorded fever. Physical Examination - Vital Signs Temperature: 97.9 F Blood Pressure: 145/79 Pulse: 99 Respirations: 18 Pulse Ox (%): 97 - Studies Laboratory Data (last 24 hrs) 04/28/23 04/28/23 04/28/23 19:47 19:47 19:47 WBC 4.40 Hgb 11.5 L Hct 35.0 L Plt Count 371 PT 10.8 INR 0.90 Sodium 139 Potassium 3.4 L BUN 9 Creatinine 0.88 Glucose 95 Magnesium 1.5 L Total Bilirubin 0.5 AST 34 ALT 42 Alkaline Phosphatase 142 H Lipase 36 Assessment And Plan - Plan Physical Exam General: Alert, Oriented x3, moderate distress due to pain Neck: Supple, JVD not distended Respiratory: Clear to auscultation bilaterally, Normal air movement Cardiovascular: No edema, Normal pulses, Regular rate/rhythm Gastrointestinal: Normal bowel sounds, diffuse abdominal tenderness. Musculoskeletal: No clubbing, No swelling Integumentary: No rashes, No breakdown Neurological: No focal motor deficit Diagnosis Acute cystitis Intractable nausea and vomiting Hypokalemia Hypomagnesia Fall Anemia Hypertension Bipolar disorder History of gastric bypass Assessment /plan Acute cystitis Continue IV ceftriaxone antibiotics, IV fluids, Infectious disease input appreciated. Follow urine culture and blood cultures Intractable nausea vomiting Differential diagnosis fluid acute cystitis versus gastritis given history of gastric bypass. Supportive measures with antiemetics as needed IV fluid Clear liquid diet as tolerated Trial of IV PPI. Hypokalemia Hypomagnesia Replace electrolytes as needed Generalized weakness Fall Fall precautions PT eval for ambulation and frequent falls Metabolic acidosis Unknown etiology IV hydration and monitor BMP. History of hypertension History of bipolar History of gastric bypass Continue home oral medications as tolerated DVT prophylaxis: Lovenox. Diet clear liquid Full code
[2023-04-30] MEDS: DIPHENHYDRAMINE 25 MG TAB/CAP PO PRN ×2 (02:41→14:34)
[2023-04-30 03:40] LABS: Absolute Lymphocytes (CBC) 1.5 K/uL (0.7-4.9); Lymphocytes % 28.2 % (15.3-44.8); MCV 91.6 fL (80-100)
[2023-04-30 03:53] LABS: Magnesium 1.7 mg/dL (1.6-2.4); Potassium 3.4 mEq/L (3.5-5.1)
[2023-04-30] MEDS ORDERED: MAGNESIUM SULFATE 1 gm IVPB 1 GM/100 ML BAG IV ONE (05:00)
[2023-04-30] MEDS ORDERED: CEFTRIAXONE 2000 MG/VIAL ONE (08:24)
[2023-04-30] MEDS: PANTOPRAZOLE 40 MG INJ IVP SCH (08:31)
[2023-04-30] MEDS: NA CHLORIDE 0.9% 1,000 ML IV SCH (08:31)
[2023-04-30] MEDS: ENOXAPARIN 40 MG/0.4 ML SQ SCH (08:31)
[2023-04-30] MEDS: MORPHINE 4 MG/ML SYR IV PRN ×2 (08:32→14:35)
[2023-04-30] MEDS: ONDANSETRON 4 MG/2 ML VIAL IV PRN (08:50)
[2023-04-30] MEDS ORDERED: NA CHLORIDE 0.9% 100 ML ONE (08:50)
[2023-04-30] MEDS: CEFTRIAXONE 2,000 MG in NA CHLORIDE 0.9% 100 ML IV SCH (08:51)
[2023-04-30 09:09] VITALS: BP 159/78; TEMP 98.4
[2023-04-30] MEDS: KCL 20 MEQ/100 mL IVPB 20 MEQ/100 ML BAG IV SCH ×2 (14:24→14:29)
[2023-04-30] MEDS ORDERED: ACETAMINOPHEN 325 MG TABLET PO PRN (15:22)
--- NOTE | 2023-04-30 15:38 | P.PN ---
Subjective Date of Service: 04/30/23 Chief Complaint: acute cystitis, nausea vomiting Patient is complaining of headache. She she has poor oral intake. No vomiting today. No recorded fever. Physical Examination - Vital Signs Temperature: 98.4 F Blood Pressure: 159/78 Pulse: 95 Respirations: 18 Pulse Ox (%): 98 Assessment And Plan - Plan Physical Exam General: Alert, Oriented x3, moderate distress due to pain Neck: Supple, JVD not distended Respiratory: Clear to auscultation bilaterally, Normal air movement Cardiovascular: No edema, Normal pulses, Regular rate/rhythm Gastrointestinal: Normal bowel sounds, diffuse abdominal tenderness. Musculoskeletal: No clubbing, No swelling Integumentary: No rashes, No breakdown Neurological: No focal motor deficit Diagnosis Acute cystitis Intractable nausea and vomiting Hypokalemia Hypomagnesia Fall Anemia Hypertension Bipolar disorder History of gastric bypass Assessment /plan Acute cystitis Urine culture is growing gram-negative alberto Continue IV ceftriaxone antibiotics, IV fluids, Infectious disease is following. Intractable nausea vomiting/functional constipation/irritable bowel syndrome Differential diagnosis fluid acute cystitis versus gastritis given history of gastric bypass. Supportive measures with antiemetics as needed IV fluid Liquid diet as tolerated PPI given history of gastric bypass surgery and possibility of gastritis Dulcolax suppository. Oral stool softeners and laxatives once patient is able to tolerate p.o. Hypokalemia Hypomagnesia Replace electrolytes as needed Generalized weakness Fall Fall precautions PT Metabolic acidosis Unknown etiology Continue IV hydration and monitor BMP. History of hypertension History of bipolar History of gastric bypass Continue home oral medications as tolerated DVT prophylaxis: Lovenox.
[2023-04-30] MEDS ORDERED: BISACODYL 10 MG RECTAL SUPP PR ONE (15:45)
--- NOTE | 2023-04-30 16:40 | P.DS ---
Admission Date: 04/28/23 Discharge Date: 04/30/23 Disposition: AMA-LEFT AGAINST MEDICAL ADVIC Reason for Admission: acute cystitis, nausea vomiting Brief History of Present Illness: 57-year-old female with a past medical history of bipolar, fibromyalgia, migrai erwin, IBS, hypertension, history of Marlys-en-Y bypass presented to the emergency room for nausea, generalized weakness,and fall. reports she fell last week, again on the day of a presentation due to generalized weakness. She denies loss of consciousness. reported she has intermittent nausea vomiting couple times a week. She reported poor appetite and decreased oral intake. She reports suprapubic tenderness. Laboratory evaluation mild hypokalemia 3.4- magnesium 1.5, troponin is normal at 7.2, elevated BNP at 342, CBC normal WBCs, normocytic anemia hemoglobin 11.5, 35.0. urinalysis suggested the presence of UTI. CT of the head no acute abnormality, Chest x-ray- no acute cardiopulmonary process, CT of the abdomen pelvis showed no acute intra-abdominal pelvic finding, no hydronephrosis, no renal calculi. Patient was hospitalized for further management. Hospital Course: Diagnosis Acute cystitis Intractable nausea and vomiting Hypokalemia Hypomagnesia Fall Anemia Hypertension Bipolar disorder History of gastric bypass Patient admitted to the medical floor and the following medical problems addressed: Acute cystitis Urine culture is grew gram-negative alberto, later reported as mixed growth. She was treated with IV Rocephin Infectious disease evaluated patient and assisted with management. She is discharged with oral cefpodoxime. Intractable nausea vomiting/functional constipation/irritable bowel syndrome Differential diagnosis fluid acute cystitis versus gastritis given history of gastric bypass. She was treated with supportive measures including antiemetics as needed and IV fluid She was placed liquid diet as tolerated Treated with PPI given history of gastric bypass surgery and possibility of gastritis Dulcolax suppository ordered for constipation but patient did not use it. I was called to patient room because she wants to leave the hospital against medical. I explained the patient's she has not yet responded to treatment, her oral intake is minimal and therefore need to stay to continue IV hydration, treat the UTI with IV antibiotics and general supportive care. Patient is adamant on leaving AGAINST MEDICAL ADVICE. Patient and requested for prescription. She has tolerated IV Rocephin with no adverse effect. She is therefore pres cribed oral cefpodoxime to complete at least 5 days of antibiotics for UTI. Hypokalemia Hypomagnesia Electrolyte replaced IV. Generalized weakness Fall Metabolic acidosis Unknown etiology Metabolic acidosis improved with IV hydration. Vital Signs/Physical Exam: Temp Pulse Resp BP Pulse Ox 98.4 F 95 H 18 159/78 H 98 04/30/23 15:42 04/30/23 15:42 04/30/23 15:42 04/30/23 15:42 04/30/23 15:42 Laboratory Data at Discharge: WBC 5.10 thou/uL (4.3-10.9) 04/30/23 03:09 Hgb 10.7 g/dL (12.0-15.0) L 04/30/23 03:09 Hct 33.0 % (36.0-45.0) L 04/30/23 03:09 Plt Count 336 thou/uL (152-406) 04/30/23 03:09 PT 10.8 SECONDS (9.2-12.8) 04/28/23 19:47 INR 0.90 04/28/23 19:47 Sodium 140 mEq/L (136-145) 04/30/23 03:09 Potassium 3.4 mEq/L (3.5-5.1) L 04/30/23 03:09 BUN 3 mg/dL (7-18) L 04/30/23 03:09 Creatinine 0.69 mg/dL (0.55-1.02) 04/30/23 03:09 Glucose 80 mg/dL (74-106) 04/30/23 03:09 Magnesium 1.7 mg/dL (1.6-2.4) 04/30/23 03:09 Total Bilirubin 0.5 mg/dL (0.2-1.0) 04/28/23 19:47 AST 34 U/L (15-37) 04/28/23 19:47 ALT 42 U/L (13-56) 04/28/23 19:47 Alkaline Phosphatase 142 U/L (45-117) H 04/28/23 19:47 Lipase 36 U/L (13-75) 04/28/23 19:47 Home Medications: Tizanidine [Zanaflex*] 4 mg PO BEDTIME PRN PRN 07/21/20 Diclofenac Sodium 50 mg PO Q8H 11/17/22 LORazepam [Ativan*] 1 mg PO BID PRN 11/17/22 Venlafaxine HCl [Effexor Xr] 225 mg PO DAILY 11/17/22 Levothyroxine [Synthroid*] 50 mcg PO [id number] 01/04/23 Pantoprazole [Protonix Tab*] 40 mg PO BEDTIME 01/04/23 Propranolol HCl 20 mg PO BID 01/04/23 hydrOXYzine HCL [Atarax] 50 mg PO BIDP PRN 01/04/23 Cholecalciferol (Vitamin D3) [Vitamin D3] 5,000 unit PO DAILY 01/05/23 Hydrocodone 10/APAP 325 [[place] 10/325*] 1 tab PO Q6HP PRN 04/13/23 Meclizine HCl [Antivert] 25 mg PO Q8HP PRN 04/13/23 Docusate [Colace Cap*] 100 mg PO BID 04/24/23 Mecobalamin [B12 Active] 3,000 mcg PO DAILY 04/24/23 Ped Multivit 43/Iron Fumarate [Flintstones Complete Chew Tab] 1 tab PO DAILY 04/24/23 Gabapentin 300 mg PO TID #90 tab 04/26/23 Ziprasidone [Geodon*] 60 mg PO BEDTIME #90 cap 04/26/23 lamoTRIgine [Lamotrigine] 200 mg PO DAILY 04/29/23 Cefpodoxime Proxetil 100 mg PO BID #6 tab 04/30/23 New Medications: Cefpodoxime Proxetil 100 mg PO BID #6 tab
--- NOTE | 2023-05-02 06:45 | CON ---
Date of Consultation: 04/25/2023 Reason For Consult: Evaluate the patient with altered mental status and make recommendations. Chief Complaint: Worsening confusion and hallucination. History Of Present Illness: She is a 57-year-old female with psychiatric history significa nt for bipolar disorder; anxiety disorder, unspecified; and insomnia. She also has other comorbid me dical conditions such as migraine, IBS, and chronic back pain. She on account of worsenin g confusion and onset of hallucination after having that medication she had never had thes e symptoms in the past and taken her to the ER. all her medications were discontinued, nicholas s anxiety feeling emotional. No suicidal thoughts. States she does not have any hallucin ations and she does not feel confused as she is aware of environment. taking her psychiat martha medications. She also takes other medications for pain with anxiety and depressive sy mptoms. She denies alcohol or substance abuse. She denies taking any other medications o r agitation. She lives with her , who was present during the interview and collaborated her s ymptoms associated with patient's EKG showed no evidence of acute . Physical Examination: Vital Signs: Blood pressure 122/77, pulse rate is 89, respiratory rate is 16, temperature is 97.7, O 2 sat on room air is 96%. on admission showed hypokalemia of 2.7 and anemia of 10.8. Mental Status Examination: Patient is female appropriately dressed . Alert and oriented x3. Noted to be . Mild psychomotor retardation. Speech is spontaneou s, normal rate and rhythm and volume. Mood is described as anxious. Affect is mood congruent. Thou ght process is linear and circumferential. Thought content: No delusional thinking. No . No suicidal or homicidal ideation and no rumination. . Fund of knowledge is fair. Insi ght, judgment, impulse . Diagnoses: 1.Altered mental status . 2.Bipolar disorder. 3.Anxiety disorder, unspecified. 4.Insomnia. Plan: 1. discontinue her medication at this time. 2.We will start olanzapine 2.5 mg p.o. b.i.d. and 5 mg at bedtime for mood stability. 3.Recommend continuing venlafaxine 25 mg p.o. daily for anxiety and depression, Lunesta 3 mg p.o. at bedtime for sleep. 4.Recommend continue 0.5 mg p.o. b.i.d. p.r.n. for panic attacks and severe anxiety. Sabrina lyles does not require . RUTH/EDWIN Voice ID: [id number] Report ID: [id number]
== END 2023-04-30 17:08 | disposition left against medical advice (07) | DRG 690 ==
LOC: ER 18:13 → ERHOLD 22:08 → 4TH 04-29 00:37
PROVIDERS: ADMIT Internal Medicine; ATTEND Internal Medicine
DX: N30.00 Acute cystitis without hematuria (principal); E87.20 Acidosis, unspecified; M79.7 Fibromyalgia; K58.9 Irritable bowel syndrome, unspecified; E87.6 Hypokalemia; I10 Essential (primary) hypertension; K59.04 Chronic idiopathic constipation; F31.9 Bipolar disorder, unspecified; G43.909 Migraine, unspecified, not intractable, without status migrainosus; F41.9 Anxiety disorder, unspecified; D64.9 Anemia, unspecified; E83.42 Hypomagnesemia; G47.00 Insomnia, unspecified; Z88.8 Allergy status to other drugs, medicaments and biological substances; Z98.84 Bariatric surgery status; Z90.49 Acquired absence of other specified parts of digestive tract; Z79.890 Hormone replacement therapy; Z90.710 Acquired absence of both cervix and uterus; Z79.899 Other long term (current) drug therapy
CPT/HCPCS: 36415; 70450; 71045; 74177; 80048; 80076; 81001; 82805; 83605; 83690; 83735; 83880; 84132; 84484; 85025; 85610; 87040; 87077; 87086; 87088; 87186; 93005; 96374; 96375; 97116; 97163; 99285; C9113; J0696; J1170; J1650; J2270; J2405; J3475; J3480; J7030; J7040; Q9967

== ENCOUNTER 2023-05-10 19:42 | Emergency (ER) | payer MEDICARE ==
--- OUTSIDE RECORDS SUMMARY | 2023-05-10 19:54 | XMS REPORT | Continuity of Care Document ---
:1965 Author Organization [facility] t Address [address] [facility] [address] [place] [address] Care Team Providers Name Role Phone No, Pcp [facility] Primary Care Physician Unavailable Davin Platt Attending Clinician Unavailable Kathie Angel Attending Clinician Kristopher Blackwood Attending Clinician [email or web address] Attending Clinician Unavailable Dana Lunsford Attending Clinician Marla La Attending Clinician Melissa Dunham Attending Clinician Unavailable Jorge A Attending Clinician Unavailable SHAN SANTANA Attending Clinician Unavailable Shan Santana MD Attending Clinician Doctor Unassigned, [place] Attending Clinician Unavailable Almita Moore MA Attending Clinician Unavailable SCAR OJEDA Attending Clinician Unavailable NILAY LENNON Attending Clinician Unavailable Nilay Lennon DO Attending Clinician Khushi JAQUEZ, Spike Brower Attending Clinician Unavailable JESUS MORA Attending Clinician Unavailable Hill Piña Patience Attending Clinician Soco TESSAPauly Attending Clinician Herbie Olvera MD Attending Clinician Jesus Mora DO Attending Clinician Abdirizak Krueger MD Attending Clinician [phone] ABDIRIZAK KRUEGER Attending Clinician Unavailable CARLTON ECHEVERRIA Attending Clinician Unavailable Carlton Echeverria MD Attending Clinician KENYA CONNOLLY Attending Clinician Unavailable [email or web address] Admitting Clinician Unavailable Jorge A Admitting Clinician Unavailable SHAN SANTANA Admitting Clinician Unavailable NILAY LENNON Admitting Clinician Unavailable JESUS MORA Admitting Clinician Unavailable Jesus Mora DO Admitting Clinician CARLTON ECHEVERRIA Admitting Clinician Unavailable Carlton Echeverria MD Admitting Clinician MYLENE BOBBY Admitting Clinician Unavailable Payers Payer Name Policy Type Policy Number Effective Date Expiration Date S [facility] 2022 (MEDICARE 00:00:00 REPLACEMENT HMO) TeamVisibility [id number] 2020spring 00:00:00 GivitSprin C1 [id number] 2018 Common g Medicare 00:00:00 [facility] Replace [facility] Problems Condition Condition Condition Status Onset Resolution Last Treating Co mments Source Name Details Category Date Date Treatment Clinician Date Abdominal Abdominal Disease Active Uni vers pain, pain, 9-14 ity of unspecif[place] Medical abdominal abdominal Bran ch location location Small Small Disease Recurre [facility] obstructio 00:00: Me dical n n 00 Center Pancreatit Pancreatit Disease Active C HI [facility] is is 06-25 00:00: Medical 00 Center Perimenopa Post Problem Commo n usal hysterecto Spirit disorder my - CHI menopause [facility] Chronic Stage 3b Problem Common kidney chronic Spirit disease kidney - CHI stage 3B disease St (disorder) [facility] Mixed Depression Problem Commo n anxiety with Spirit and anxiety - CHI depressive disorder [facility] Benign Benign Problem Common essential essential Spir it hypertensi hypertensi - CHI on on [facility] Bipolar Bipolar Problem Common disorder disorder [facility] Solitary Solitary Problem Commo n cyst of cyst of Spirit breast left - CHI breast [facility] [id number] Irritable Problem Comm on bowel Spirit syndrome, - CHI unspecifie [facility] Migraine Migraine Problem Commo n without without Spirit aura, not aura and - CHI refractory without [facility] migrainosu Medica l s, not Center intractabl e [id number] Mixed Problem Common hyperlipid [facility] emia [facility] [id number] Nausea Problem Common Spirit [facility] [id number] Fibromyalg Problem Co mmon ia [facility] [id number] Hemorrhoid Problem Com mon s, Spirit unspecifie - CHI d hemorrhoid [facility] Pain in Left wrist Problem Comm on wrist pain [facility] [id number] Back pain Problem Com mon with Spirit left-sided - CHI radiculopa [facility] [id number] History of Problem Co mmon intussusce [facility] ption [facility]I [facility] [id number] Constipati Problem Com mon on, Spirit unspecifie - CHI d constipati [facility] [id number] GERD Problem Common without Spirit esophagiti - CHI s [facility] [id number] Subclinica Problem Com mon l Spirit hypothyroi - CHI dism [facility] [id number] +5th digit Problem Co mmon eff Spirit 07/03/20*CK - CHI D (chronic St kidney [facility] disease) Medical stage 3, Center GFR 30-59 ml/min Right Abdominal Problem Common upper pain, RUQ Spirit quadrant - CHI pain [facility] No known No known Disease Unive rs active active ity of problems problems [facility] Allergies, Adverse Reactions, Alerts Allergy Allergy Status Severity Reaction(s) Onset Inactive Treating Comm ents Source Name Type Date Date Clinician METOCLOP DRUG Active Anxiety 2020-10 Univers RAMIDE INGREDI 10-19 ity of 00:00: [place] 00 Medical Branch ROPINIRO DRUG Active N/V 2020-10 Univers [...] of noel adverse 00:00: [place] reaction 00 Medical Branch HYDROCHL DRUG Active High Other-Cmnt 2016-10 Univ ers OROTHIAZ INGREDI 0-10 ity of NOEL 00:00: [place] 00 Medical Branch metoclop metoclop Active Unknown Commo n ramide ramide [facility] - [facility] 5921 Drug Active Unknown Common allergy [facility] - [facility] Social History Social Habit Start Date Stop Date Quantity Comments Source History of Common Spirit - Tobacco Use [facility] History SDOH [facility] Drinks History SDOH [facility] Alcohol Binge Medical Bruna ter Exposure to 2022-09-13 2022-09-23 Not sure University of SARS-CoV-2 00:00:00 14:14:00 [facility] (event) Branch Education 2022-06-16 2022-06-16 21 University of 00:00:00 00:00:00 [facility] Alcohol intake 2022-04-14 2022-04-[address] [facility] es 00:00:00 00:00:00 non-drinker of Medical Ce nter alcohol (finding) History SDOH 2019-06-25 2019-06-25 1 ADELAIDE [place] Alcohol Frequency 00:00:00 00:00:00 [facility] Center Tobacco use and 2019-06-25 2019-06-[address] [facility] exposure 00:00:00 00:00:00 non-user [facility] Center Sex Ass[birth year] At [birth year] ADELAIDE Sandersons 00:00:00 00:00:00 [facility] Center Smoking Status Start Date Stop Date Source Never smoked tobacco [facility] Medications Ordered Filled Start Stop Current Ordering Indication Dosage Frequency Signature Comments Components Source Medication Medication Date Date Medication? Clinician (SIG) Name Name ketorolac 2021-10- No 15mg 15 mg, Unive rs (TORADOL) 0-24 10- Slow IV ity of injection 23:00: 22:59 [...] dose, On Medica l tablet 1 Tue [place] tablet 07/26/22 at 1545, Routine methocarbam 2021-10 No 1000mg 1,000 mg, Univers oL 0-24 10-24 Oral, ity of (ROBAXIN) 17:45: 18:58 ONCE, 1 [place] tablet [place] :[place] dose, On Medical 1,000 mg [facility] Branch 07/26/22 at 1245, RUBEN naproxen 2021-10 Yes [id number] 550mg Take 1 Univers sodium 550 0-24 [id number] tablet by it y of mg tablet 00:00: [place] 00 the Medical morning Branch and 1 tablet in the evening. Take with meals. methylPREDN 2021-10 Yes [id number] Take by Univers ISolone 4 0-24 [id number] mouth ity of mg tablets 00:00: [place]INSTRU [place] 00 CTIONS. Medical follow Branch package directions naproxen 2021-10 Yes [id number] 550mg Take 1 Univers sodium 550 0-24 [id number] tablet by it y of mg tablet 00:00: [place] 00 the Medical morning Branch and 1 tablet in the evening. Take with meals. methylPREDN 2021-10 Yes [id number] Take by Univers ISolone 4 0-24 [id number] mouth ity of mg tablets 00:00: [place]-INSTRU [place] 00 CTIONS. Medical follow Branch package directions naproxen 2021-10 Yes [id number] 550mg Take 1 Univers sodium 550 0-24 [id number] tablet by it y of mg tablet 00:00: [place] 00 the Medical morning Branch and 1 tablet in the evening. Take with meals. methylPREDN 2021-10 Yes [id number] Take by [facility] ISolone 4 0-24 [id number] mouth ity of mg tablets 00:00: [place]-INSTRU [place] 00 CTIONS. Medical follow Branch package directions methocarbam 2021-10- No [id number] 500mg Take 1 Univers oL 500 mg 008-01 [id number] tablet by it y of tablet 00:00: 04:59 mouth in [place] 00 :00 the Medical morning Branch and 1 tablet at noon and 1 tablet in the evening. Do all this for 5 days. lidocaine 5 2021-10- No [id number] 1{patch Apply 1 Univers % (700 0-24 10 [id number] } Patch to ity of mg/patch) 00:00: 04:59 [facility] once now Medical for [...] by ity of capsule 12:24: mouth 3 [place] 20 (three) Medical times Branch daily. Indication s: 1 in the Am and 4 at bed time ziprasidone 2021-0 Yes 60mg Take 60 mg Univers 60 mg 9-19 by mouth ity of capsule 12:24: daily. [place] [address] Medical Branch PANTOPRAZOL 0 Yes 40mg Take [...] by mouth ity of tablet 12:24: daily. [place] [address] Medical Branch levothyroxi 2022-0 Yes 50ug Take 50 Uni vers ne 50 mcg 9-19 mcg by ity of tablet 12:24: mouth [place] 20 every Medical morning. Branch hydrOXYzine 0 Yes 50mg Take 50 mg Univers 50 mg 9-19 by mouth ity of tablet 12:24: in the [place] 20 morning Medical and 50 mg Branch in the evening. zolpidem 2021-0 Yes 12.5mg Take 12.5 Un henry 12.5 mg CR 9-19 mg by ity of tablet 12:24: mouth at [place] [address] bedtime as Medical needed for Branch Sleep. buspirone 2021-0 Yes 5mg Take 5 mg Uni vers HCl 9-19 by mouth ity of (BUSPIRONE 12:24: as needed. [place] ORAL) 20 Medical Branch LORazepam 0 Yes .5mg Take 0.5 Univ ers 0.5 mg 9-19 mg by ity of tablet 12:24: mouth as [place] [address] needed. Medical Branch venlafaxine 0 Yes 75mg Take 75 mg Univers XR 75 mg 24 19 by mouth ity of hr capsule 12:24: daily with [place] 20 breakfast. Medical Branch lamoTRIgine 0 Yes 200mg Take 200 U nivers 200 mg 9-19 mg by ity of tablet 12:24: mouth in [place] 20 the Medical morning. Branch gabapentin 0 Yes 300mg Take 300 Un henry 300 mg 9-19 mg by ity of capsule 12:24: mouth 3 [place] 20 (three) Medical times Branch daily. Indication s: 1 in the Am and 4 at bed time ziprasidone 2021-0 Yes 60mg Take 60 mg Univers 60 mg 9-19 by mouth ity of capsule 12:24: daily. [place] 20 Medical Branch PANTOPRAZOL 0 Yes 40mg Take 40 mg Univers E SODIUM 9-19 by mouth. ity of (PROTONIX 12:24: [place] ORAL) 20 Medical Branch tiZANidine 0 Yes 4mg Take 4 mg Un henry 4 mg 9-19 by mouth 2 ity of capsule 12:24: (two) [place] 20 times Medical daily. Branch IRON &IRON 0 Yes Take by Univ ers ASP 9-19 mouth. ity of GLY-HAROON-JAZMYN,M 12:24: Indication [place] IN38 ORAL 20 s: iron Medical injectio Branch once a month propranolol 2021-0 Yes 20mg Take 20 mg Univers 20 mg 9-19 by mouth ity of tablet 12:24: daily. [place] [address] Medical Branch levothyroxi 0 Yes 50ug Take 50 Uni vers ne 50 mcg 9-19 mcg by ity of tablet 12:24: mouth [place] 20 every Medical morning. Branch hydrOXYzine 0 Yes 50mg Take 50 mg Univers 50 mg 9-19 by mouth ity of tablet 12:24: in the [place] 20 morning Medical and 50 mg Branch in the evening. zolpidem 0 Yes 12.5mg Take 12.5 Un henry 12.5 mg CR 9-19 mg by ity of tablet 12:24: mouth at [place] [address] bedtime as Medical needed for Branch Sleep. buspirone 2021-0 Yes 5mg Take 5 mg Uni vers HCl 9-19 by mouth ity of (BUSPIRONE 12:24: as needed. [place] ORAL) 20 Medical Branch LORazepam 2021-0 Yes .5mg Take 0.5 Univ ers 0.5 mg 9-19 mg by ity of tablet 12:24: mouth as [place] [address] needed. Medical Branch venlafaxine 0 Yes 75mg Take 75 mg Univers XR 75 mg 24 9-19 by mouth ity of hr capsule 12:24: daily with [place] 20 breakfast. Medical Branch lamoTRIgine 0 Yes 200mg Take 200 U nivers 200 mg 9-19 mg by ity of tablet 12:24: mouth in [place] 20 the Medical morning. Branch gabapentin 0 Yes 300mg Take 300 Un henry 300 mg 9-19 mg by ity of capsule 12:24: mouth 3 [place] 20 (three) Medical times Branch daily. Indication s: 1 in the Am and 4 at bed time ziprasidone 2021-0 Yes 60mg Take 60 mg Univers 60 mg 9-19 by mouth ity of capsule 12:24: daily. [place] [address] Medical Branch PANTOPRAZOL 2021-0 Yes 40mg Take 40 mg Univers E SODIUM 9-19 by mouth. ity of (PROTONIX 12:24: [place] ORAL) 20 Medical Branch tiZANidine 2021-0 Yes 4mg Take 4 mg Un henry 4 mg 9-19 by mouth 2 ity of capsule 12:24: (two) [place] 20 times Medical daily. Branch IRON &IRON 0 Yes Take by Univ ers ASP 9-19 mouth. ity of GLY-HAROON-MV,M 12:24: Indication [place] IN38 ORAL 20 s: iron Medical injectio Branch once a month propranolol 2021-0 Yes 20mg Take 20 mg Univers 20 mg 9-19 by mouth ity of tablet 12:24: daily. [place] 20 Medical Branch levothyroxi 2021-0 Yes 50ug Take 50 Uni vers ne 50 mcg 9-19 mcg by ity of tablet 12:24: mouth [place] 20 every Medical morning. Branch hydrOXYzine 0 Yes 50mg Take 50 mg Univers 50 mg 9-19 by mouth ity of tablet 12:24: in the [place] 20 morning Medical and 50 mg Branch in the evening. zolpidem 0 Yes 12.5mg Take 12.5 Un henry 12.5 mg CR 9-19 mg by ity of tablet 12:24: mouth at [place] [address] bedtime as Medical needed for Branch Sleep. buspirone 2021-0 Yes 5mg Take 5 mg Uni vers HCl 9-19 by mouth ity of (BUSPIRONE 12:24: as needed. [place] ORAL) 20 Medical Branch LORazepam 0 Yes .5mg Take 0.5 Univ ers 0.5 mg 9-19 mg by ity of tablet 12:24: mouth as [place] [address] needed. Medical Branch venlafaxine 0 Yes 75mg [...] by mouth ity of capsule 12:24: daily. [place] 20 Medical Branch PANTOPRAZOL 2021-0 Yes 40mg [...] by mouth ity of tablet 12:24: daily. [place] 20 Medical Branch levothyroxi 0 Yes 50ug [...] Am and 4 at bed time ziprasidone 2022-0 Yes 60mg Take 60 mg Univers 60 mg 9-19 by mouth ity of capsule 12:24: daily. [place] [address] Medical Branch PANTOPRAZOL 0 Yes 40mg Take [...] Medical injectio Branch once a month propranolol Yes 20mg Take 20 mg Univers 20 mg 9-19 by mouth ity of tablet 12:24: daily. [place] [address] Medical Branch levothyroxi 0 Yes 50ug Take 50 Uni vers ne 50 mcg 9-19 mcg by ity of tablet 12:24: mouth [place] 20 every Medical morning. Branch hydrOXYzine Yes 50mg Take 50 mg Univers 50 mg 9-19 by mouth ity of tablet 12:24: in the [place] 20 morning Medical and 50 mg Branch in the evening. zolpidem Yes 12.5mg Take 12.5 Un henry 12.5 mg CR 9-19 mg by ity of tablet 12:24: mouth at [place] 20 bedtime as Medical needed for Branch Sleep. buspirone Yes 5mg Take 5 mg Uni vers HCl 9-19 by mouth ity of (BUSPIRONE 12:24: as needed. [place] ORAL) 20 Medical Branch LORazepam Yes .5mg Take 0.5 Univ ers 0.5 mg 9-19 mg by ity of tablet 12:24: mouth as [place] 20 needed. Medical Branch venlafaxine Yes 75mg Take 75 mg Univers XR 75 mg 24 9-19 by mouth ity of hr capsule 12:24: daily with [place] 20 breakfast. Medical Branch lamoTRIgine Yes 200mg Take 200 U nivers 200 mg 9-19 mg by ity of tablet 12:24: mouth in [place] 20 the Medical morning. Branch FLUoxetine No 40mg Take 40 mg Univers 40 [...] Sun Branch 06/20/22 at 0845, Routine potassium No 10meq 10 mEq, IV Univers chloride [...] 00 :00 dose, On Medi carlos 1:1:1 [facility] Branch (FIRST-MOUT 06/17/22 at [facility]) 2100, oral Routine suspension 15 mL HYDROcodone 2021-0 Yes 1{tbl} 1 tablet, Univers -acetaminop 16 Oral, ity of hen (NORCO 01:00: Q6HPRN, [place] 5) 5-325 mg 34 Starting Medi carlos tablet 1 on [facility] Branch tablet 06/17/22 at 2000, Until Discontinu ed, Routine, Pain (scale 4-6) morpHINE (2 0 Yes 2mg 2 mg, Slow Univers mg/mL) 9-15 IV Push, ity of injection 2 20:14: Q6HPRN, [place] as mg 54 Starting Medical on [facility] Branch 06/17/22 at 1514, Until Discontinu ed, Routine, Pain (scale 7-10) maalox:diph 2021-0 2021- No 15mL 15 mL, Uni vers enhydrAMINE 06-17 Oral, ity of :lidocaine 15:45: 15:51 ONCE, 1 [place] as 2 % viscous 00 :00 dose, On Medi carlos 1:1:1 [facility] Branch (FIRST-MOUT 06/17/22 at [facility]) 1045, oral Routine suspension 15 mL pantoprazol 2021-0 Yes 40mg 40 mg, Univ ers e 06-17 Oral, ity of (PROTONIX) 14:00: DAILY, [place] EC tablet 00 First dose Medi carlos 40 mg on [facility] Branch 06/17/22 at 0900, Until Discontinu ed lamoTRIgine 2021-0 Yes 200mg 200 mg, Un henry (LAMICTAL) 15 Oral, ity of tablet 200 14:00: DAILY, [place] mg 00 First dose Medical on [facility] Branch 06/17/22 at 0900, Until Discontinu ed, Routine venlafaxine 2021-0 Yes 75mg 75 mg, Univ ers XR (EFFEXOR 15 Oral, QAM ity of XR) 24 hr 13:00: WITH [place] capsule 75 00 BREAKFAST, Med ical mg First dose Branch on [facility] 06/17/22 at 0800, Until Discontinu ed, Routine tiZANidine 2021-0 Yes 4mg 4 mg, Univer s (ZANAFLEX) 9-15 Oral, BID, ity of tablet 4 mg 13:00: First dose [place] 00 on [facility] 06/17/22 at Branch 0800, Until Discontinu ed propranoloL 2021-0 Yes 20mg 20 mg, Univ ers (INDERAL) 9-15 Oral, BID, ity of tablet 20 13:00: First [place] mg 00 on [facility] 06/17/22 at Branch 0800, Until Discontinu ed, Routine heparin 2021-0 Yes 5000U 5,000 Univers (porcine) 9-15 Units, ity of injection 13:00: Subcutaneo [place] 5,000 Units 00 us, Q12H, Med ical First dose Branch on [facility] 06/17/22 at 0800, Until Discontinu ed, Routine levothyroxi 2021-0 Yes 50ug 50 mcg, Uni vers ne 15 Oral, ity of (SYNTHROID) 11:00: QAM-0600, [place] tablet 50 00 First dose Medi carlos mcg on [facility] 06/17/22 at 0600, Until Discontinu ed, Routine ziprasidone 2021-0 Yes 120mg 120 mg, Un henry (GEODON) 9-15 Oral, QHS, ity o f capsule 120 08:30: First dose [place] mg 00 on [facility] 06/17/22 at Branch 0330, Until Discontinu ed, Routine NaCl 0.9% 0 2021- No 1000mL at 100 Uni vers (NS) IV 06-17-17 mL/hr, IV ity of infusion 07:15: 22:39 Infusion, [place] 1,000 mL 00 :15 CONTINUOUS Medic al , Starting Branch on [facility] 06/17/22 at 0215, Until 06/19/22 at 1739, Routine NaCl 0.9% 0 2021- No 1000mL at 999 Uni vers (NS) bolus 06-17 09-15 mL/hr, ity of infusion 07:15: 07:48 1,000 mL, [place] 1,000 mL 00 :04 IV Medical Piggyback, Branch ONCE, 1 dose, On [facility] 06/17/22 at 0215, RUBEN gabapentin 2021-0 Yes 300mg 300 mg, Uni vers (NEURONTIN) -15 Oral, TID, it y of capsule 300 06:30: First dose [place] mg 00 on [facility] 06/17/22 at Branch 0130, Until Discontinu ed, Routine hydrOXYzine 2021-0 Yes 25mg 25 mg, Univ ers (ATARAX) -15 Oral, ity of tablet 25 06:19: Q6HPRN, [place] mg 36 Starting Medical on [facility] 06/17/22 at 0119, Until Discontinu ed, Routine, Anxiety zolpidem 2021-0 Yes 10mg 10 mg, Univers (AMBIEN) 15 Oral, ity of tablet 10 06:18: QHSPRN, [place] mg 39 Starting Medical on [facility] 06/17/22 at 0118, Until Discontinu ed, Insomnia LORazepam 2021-0 Yes .5mg 0.5 mg, Unive rs (ATIVAN) 06-17 Oral, ity of tablet 0.5 06:16: BIDPRN, [place] mg 51 Starting Medical on [facility] 06/17/22 at 0116, Until Discontinu ed, Routine, Agitation sennosides 2021-0 Yes 8.6mg 8.6 mg, Uni vers (SENOKOT) -15 Oral, BID, ity of tablet 8.6 06:15: First dose [place] mg 00 on [facility] 06/17/22 at Branch 0115, Until Discontinu ed, Routine docusate 2021-0 Yes 100mg 100 mg, Unive rs (COLACE) -15 Oral, BID, ity o f capsule 100 06:15: First dose [place] mg 00 on [facility] 06/17/22 at Branch 0115, Until Discontinu ed, Routine pantoprazol 2021-0 202- No 40mg 40 mg, Uni vers e 06-17 09-18 Slow IV ity of (PROTONIX) 06:15: 15:58 Push, [place] injection 00 :22 Q12H, Medical 40 mg First dose Branch on [facility] 06/17/22 at 0115, Until Discontinu ed ondansetron 2021-0 Yes 4mg 4 mg, Slow Univers (ZOFRAN [...] Branch 06/16/22 at 2115, RUBEN morpHINE (2 2021- No 4mg 4 mg, Slow Univers mg/mL) 06-17 IV Push, ity of injection 4 02:15: 01:17 ONCE, 1 [place] mg 00 :00 dose, On Medical Wed Branch 06/16/22 at 2115, STAT iopamidol 2021- No [id number] 70mL 70 mL, U nivers (ISOVUE 06-17 Intravenou ity o f 370-500 mL) 01:45: 01:45 s, ONCE, 1 [place] injection 00 :00 dose, On Medica l 70 mL Wed Branch 06/16/22 at 2045, Routine piperacilli 2021- No 3.375g 3.375 g, Univers n-tazobacta 06-17 [...] 1000mL at 999 Uni vers (NS) bolus 06-17-15 mL/hr, ity of infusion 00:00: 02:59 1,000 mL, [place] as 1,000 mL 00 :00 IV Medical Infusion, Branch ONCE, 1 dose, On Tue06/16/22 at 1900, STAT ibuprofen 2021-0 2021- No 600mg 600 mg, Uni vers (IBU) 06-1615 Oral, ity of tablet 600 23:00: 00:11 ONCE, 1 [place] mg 00 :00 dose, On Medical Wed Branch 06/16/22 at 1800, RUBEN tiZANidine 0 Yes 4mg QD Take [address] (ZANAFLEX) 7-13 by mouth [facility] 4 MG tablet 13:36: nightly. [place] 47 Center buPROPion 2021-0 Yes 150mg [...] needed for Anxiety. gabapentin 2021-0 Yes 600mg Q.21272995 Take [address] (NEURONTIN) 7-13 [id number] mg by L ukes 600 MG 13:36: [...] needed for Anxiety. gabapentin 2021-0 Yes 600mg Q.[id number] Take [address] (NEURONTIN) 7-13 [id number] mg by L ukes 600 MG 13:36: 3D mouth 3 Medical tablet 47 (three) Center times daily. ziprasidone 2021-0 Yes 120mg QD Take [address] (GEODON) 60 7-13 mg by [facility]ukes MG capsule 13:36: mouth Medica l 47 nightly . Center propranolol 2-0 Yes 10mg Q.5D Take 10 mg CHI [...] Center times daily as needed for Anxiety. clonazePAM 2-0 Yes .5mg Take 0.[address] (KLONOPIN) 7-13 mg by [facility]ukes 0.5 MG 13:36: mouth 2 Medical tablet 47 (two) Center times daily as needed for Anxiety. gabapentin 2021-0 Yes 600mg Q.[id number] Take [address] (NEURONTIN) 7-13 [id number] mg by L ukes 600 MG 13:36: 3D mouth 3 Medical tablet 47 (three) Center times daily. ziprasidone 2022-0 Yes 120mg QD Take [address] (GEODON) 60 7-13 mg by [facility]ukes MG capsule 13:36: mouth Medica l 47 nightly . Center propranolol 2-0 Yes 10mg Q.5D Take [address] (INDERAL) 7-13 by mouth 2 Luke s 10 MG 13:36: (two) Medical tablet 47 times Center daily. pantoprazol 2022-0 Yes 40mg QD Take 40 mg CHI [...] once at Medical capsule 47 bedtime. Center gabapentin 2021-0 Yes 600mg Q.[id number] Take [address] (NEURONTIN) 7-13 [id number] mg by L ukes 600 MG 13:36: [...] needed for Anxiety. gabapentin 0 Yes 600mg Q.[id number] Take [address] (NEURONTIN) 7-13 [id number] mg by L ukes 600 MG 13:36: [...] 24 hr 47 daily. Center tablet levothyroxi 202-0 Yes 50ug Take [address] ne 7-13 mcg by Lukes (SYNTHROID, 13:36: mouth Medic al LEVOTHROID) 47 Every Center 50 MCG morning on tablet an empty stomach. hydrOXYzine 2021-0 Yes 50mg Take [address] (VISTARIL) 7-13 by mouth [facility] 50 MG 13:36: once at Medical capsule 47 bedtime. Center clonazePAM 2022-0 Yes .5mg Take 0.[address] (KLONOPIN) 7-13 mg by [facility]ukes 0.5 MG 13:36: mouth 2 Medical tablet 47 (two) Center times daily as needed for Anxiety. gabapentin 2022-0 Yes 600mg Q.[id number] Take [address] (NEURONTIN) 7-13 [id number] mg by L ukes 600 MG 13:36: 3D mouth 3 Medical tablet 47 (three) Center times daily. ziprasidone 2021-0 Yes 120mg QD Take [address] (GEODON) 60 7-13 mg by Lukes MG capsule 13:36: mouth Medica l 47 nightly . Center propranolol 2022-0 Yes 10mg Q.5D Take [address] (INDERAL) 7-13 by mouth 2 Luke s 10 MG 13:36: (two) Medical tablet 47 times Center daily. pantoprazol 2-0 Yes 40mg QD Take [address] e 7-13 by mouth [facility]ukes (PROTONIX) 13:36: daily. Medic al 40 MG 47 Center tablet FLUoxetine 2021-0 Yes 40mg QD Take [address] (PROZAC) 40 7-13 by mouth Luke s MG capsule 13:36: daily. Medic al 47 Center LORazepam 2022-0 Yes .5mg Take 0.5 CHI [...] 3-23 [facility]ukes mg tablet 00:00: Medical 00 [place] zolpidem 2021-[address] (AMBIEN) 10 3-23 [facility] mg tablet 00:00: Medical 00 [place] zolpidem 2021-0 Yes [facility] [place] zolpidem 2021-[address] [facility] 10 3-23 [facility]: [facility] 00 [place] zolpidem 2021-[address] [facility] 10 3-23 [facility]: [facility] 00 [place] zolpidem 2021-[address] [facility] ([facility] 10 3-23 [facility]: Medical 00 [place] lamoTRIgine 2021-[address] [facility] (LaMICtal) 3-15 [facility] 200 MG 00:00: Medical tablet 00 [place] lamoTRIgine 2021-[address] [facility] 3-15 [facility] 200 MG 00:00: Medical tablet 00 [place] lamoTRIgine 2021-[address] [facility] ([facility] 3-15 [facility] 200 MG 00:00: Medical tablet 00 [place] lamoTRIgine 2021-[address] [facility] 3-15 [facility] 200 MG 00:00: Medical tablet 00 [place] lamoTRIgine 2021-[address] [facility] ([facility] 3-15 [facility] 200 MG 00:00: Medical tablet 00 [place] lamoTRIgine Yes [facility] ([facility] 3-15 [facility] 200 MG 00:00: Medical tablet 00 [place] venlafaxine [facility] (EFFEXOR) 3-04 [facility] 75 MG 00:00: Medical tablet 00 [place] venlafaxine [facility] ([facility] 3-04 [facility] 75 MG 00:00: Medical tablet 00 [place] venlafaxine [facility] ([facility] 3-04 [facility] 75 MG 00:00: Medical tablet 00 [place] venlafaxine [facility] ([facility] 3-04 [facility] 75 MG 00:00: Medical tablet 00 [place] venlafaxine [facility] ([facility] 3-04 [facility] 75 MG 00:00: Medical tablet 00 [place] venlafaxine [facility] ([facility] 3-04 [facility] 75 MG 00:00: Medical tablet 00 [place] iopamidol 2021- No [id number] 100mL 100 mL, Univers (ISOVUE -10-16 Intravenou ity o f 370-500 mL) 21:47: [...] 2- Starting ity of (SIMETHICON 17:03: on Tue [...] 2020-10- No PRN, Unive rs (GAS RELIEF -09-22 Starting ity of (SIMETHICON 17:03: 20:23 on Tue Faustino as E)) 40 00 :39 09/22/21 Medical mg/0.6 mL at 1103, Branch drops Until Tue09/22/21 at 1423, Routine, Intra-op lactated 2020-10- [facility] - 12- mL/hr, ity of infusion 16:45: 16:47 1,000 mL, Faustino as 1,000 mL 00 :00 IV Medical Infusion, Branch ONCE, 1 dose, On Tue09/22/21 at 1045, Routine, DSU Pre-op lactated 2020-10- No 1000mL at 42 [facility] rs ringers IV - 12- mL/hr, ity of infusion 16:45: 16:47 1,000 mL, Faustino as 1,000 mL 00 :00 IV Medical Infusion, Branch ONCE, 1 dose, On Tue09/22/21 at 1045, Routine, DSU Pre-op FLUoxetine 2020-10 Yes 40mg Take 40 mg U nivers (PROZAC) 40 2-21 by mouth ity of mg capsule 12:23: daily. [address] gabapentin 2020-10 Yes 300mg Take 300 Un henry 300 mg 2-21 mg by ity of capsule 12:23: mouth 3 [place] [address] (three) Medical times [place] daily. Indication s: 1 in the Am and 4 at bed time ziprasidone 2020-10 Yes 60mg Take 60 mg Univers (GEODON) 60 2-21 by mouth ity of mg capsule 12:23: daily. [address] PANTOPRAZOL 2020-10 Yes 40mg Take 40 mg Univers E SODIUM 2-21 by mouth. ity of (PROTONIX 12:23: [place] ORAL) 30 Medical Branch tiZANidine 2020-10 Yes 4mg Take 4 mg Un henry (ZANAFLEX) 2-21 by mouth 2 ity of 4 mg 12:23: (two) [place] capsule 30 times Medical daily. Branch IRON &IRON 2020-10 Yes Take by [facility] ers ASP 2-21 mouth. ity of GLY-FA-MV,M 12:23: Indication [place] IN38 ORAL 30 s: iron Medical injectio Branch once a month DICLOFENAC 2020-10 Yes Take 50 mg U nivers POTASSIUM 2-21 base by ity of (CAMBIA 12:23: mouth. [place] ORAL) [address] [place] [address] Branch propranolol 2020-10 Yes 20mg Take 20 mg Univers 20 mg 2-21 by mouth ity of tablet 12:23: daily. [address] FLUoxetine 2020-10 Yes 40mg Take 40 mg U nivers (PROZAC) 40 2-21 by mouth ity of mg capsule 12:23: daily. [address] gabapentin 2020-10 Yes 300mg Take 300 Un henry 300 mg 2-21 mg by ity of capsule 12:23: mouth 3 [place] 30 (three) Medical times Branch daily. Indication s: 1 in the Am and 4 at bed time ziprasidone 2020-10 Yes 60mg Take 60 mg Univers (GEODON) 60 2-21 by mouth ity of mg capsule 12:23: daily. [address] PANTOPRAZOL 2020-10 Yes 40mg Take 40 mg Univers E SODIUM 2-21 by mouth. ity of (PROTONIX 12:23: [place] ORAL) [address] [place] [address] Branch tiZANidine 2020-10 Yes 4mg Take 4 mg Un henry (ZANAFLEX) 2-21 by mouth 2 ity of 4 mg 12:23: (two) [place] capsule 30 times Medical daily. Branch IRON &IRON 2020-10 Yes Take by Univ ers ASP 2-21 mouth. ity of LINUS-HAROON-JAZMYN,M 12:23: Indication [place] IN38 ORAL 30 s: iron Medical injectio Branch once a month DICLOFENAC 2020-10 Yes Take 50 mg U nivers POTASSIUM 2-21 base by ity of (CAMBIA 12:23: mouth. [place] ORAL) [address] [place] [address] Branch propranolol 2020-10 Yes 20mg Take 20 mg Univers 20 mg 2-21 by mouth ity of tablet 12:23: daily. [address] FLUoxetine 2020-10 Yes 40mg Take 40 mg U nivers (PROZAC) 40 2-21 by mouth ity of mg capsule 12:23: daily. [address] gabapentin 2020-10 Yes 300mg Take 300 Un henry 300 mg 2-21 mg by ity of capsule 12:23: mouth 3 [place] 30 (three) Medical times Branch daily. Indication s: 1 in the Am and 4 at bed time ziprasidone 2020-10 Yes 60mg Take 60 mg Univers (GEODON) 60 2-21 by mouth ity of mg capsule 12:23: daily. [address] Branch PANTOPRAZOL 2020-10 Yes 40mg Take 40 mg Univers E SODIUM 2-21 by mouth. ity of (PROTONIX 12:23: [place] ORAL) 30 Medical Branch tiZANidine 2020-10 Yes 4mg Take 4 mg Un henry (ZANAFLEX) 2-21 by mouth 2 ity of 4 mg 12:23: (two) [place] capsule 30 times Medical daily. Branch IRON &IRON 2020-10 Yes Take by [facility] ers ASP 2-21 mouth. ity of GLY-FA-MV,M 12:23: Indication [place] IN ORAL 30 s: iron Medical injectio Branch once a month DICLOFENAC 2020-10 Yes Take 50 mg U nivers POTASSIUM 2-21 base by ity of (CAMBIA 12:23: mouth. [facility]) Medical Branch propranolol 2020-10 Yes 20mg Take 20 mg Univers 20 mg 2-21 by mouth ity of tablet 12:23: daily. [address] FLUoxetine 2020-10 Yes 40mg Take 40 mg U nivers (PROZAC) 40 2-21 by mouth ity of mg capsule 12:23: daily. [address] gabapentin 2020-10 Yes 300mg Take 300 Un henry 300 mg 2-21 mg by ity of capsule 12:23: mouth 3 [place] 30 (three) Medical times [place] daily. Indication s: 1 in the Am and 4 at bed time ziprasidone 2020-10 Yes 60mg Take 60 mg Univers (GEODON) 60 2-21 by mouth ity of mg capsule 12:23: daily. [address] Branch PANTOPRAZOL 2020-10 Yes 40mg Take 40 mg Univers E SODIUM 2-21 by mouth. ity of (PROTONIX 12:23: [place] ORAL) 30 Medical Branch tiZANidine 2020-10 Yes 4mg Take 4 mg Un henry (ZANAFLEX) 2-21 by mouth 2 ity of 4 mg 12:23: (two) [place] capsule 30 times Medical daily. Branch IRON &IRON 2020-10 Yes Take by [facility] ers ASP 2-21 mouth. ity of GLY-FA-MV,M 12:23: Indication [place] IN38 ORAL 30 s: iron Medical injectio Branch once a month DICLOFENAC 2020-10 Yes Take 50 mg U nivers POTASSIUM 2-21 base by ity of (CAMBIA 12:23: mouth. [place] ORAL) [address] [place] [address] propranolol 2020-10 Yes 20mg Take 20 mg Univers 20 mg 2-21 by mouth ity of tablet 12:23: daily. [address] FLUoxetine 2020-10 Yes 40mg Take 40 mg U nivers (PROZAC) 40 2-21 by mouth ity of mg capsule 12:23: daily. [address] gabapentin 2020-10 Yes 300mg Take 300 Un henry 300 mg 2-21 mg by ity of capsule 12:23: mouth 3 [place] 30 (three) Medical times Branch daily. Indication s: 1 in the Am and 4 at bed time ziprasidone 2020-10 Yes 60mg Take 60 mg Univers (GEODON) 60 2-21 by mouth ity of mg capsule 12:23: daily. [address] PANTOPRAZOL 2020-10 Yes 40mg Take 40 mg Univers E SODIUM 2-21 by mouth. ity of (PROTONIX 12:23: [place] ORAL) [address] [place] [address] tiZANidine 2020-10 Yes 4mg Take 4 mg Un henry (ZANAFLEX) 2-21 by mouth 2 ity of 4 mg 12:23: (two) [place] capsule 30 times Medical daily. Branch IRON &IRON 2020-10 Yes Take by Univ ers ASP 2-21 mouth. ity of LINUS-HAROON-JAZMYN,M 12:23: Indication [place] IN38 ORAL 30 s: iron Medical injectio Branch once a month DICLOFENAC 2020-10 Yes Take 50 mg U nivers POTASSIUM 2-21 base by ity of (CAMBIA 12:23: mouth. [facility]) [address] [place] [address] propranolol 2020-10 Yes 20mg Take 20 mg Univers 20 mg 2-21 by mouth ity of tablet 12:23: daily. [address] water for 2020-10- No PRN, Univers irrigation 10-20 Starting ity of irrigation 18:20: 21:01 on [facility] [place] solution 00 :23 08/20/21 Medical at 1220, Branch Until [place] 08/20/21 at 1501, Routine, Intra-op simethicone 2020-10- No PRN, Unive rs (GAS RELIEF -18 18 Starting ity of (SIMETHICON 18:20: 21:01 on [...] mouth ity of mg capsule 13:01: daily. [address] gabapentin 2020-10 Yes 300mg Take 300 Un henry 300 mg 1-18 mg by ity of capsule 13:01: mouth 3 [place] [address] (three) Medical times Branch daily. Indication s: 1 in the Am and 4 at bed time ziprasidone 2020-10 Yes 60mg Take 60 mg Univers (GEODON) 60 1-18 by mouth ity of mg capsule 13:01: daily. [address] PANTOPRAZOL 2020-10 Yes 40mg Take 40 mg Univers E SODIUM 1-18 by mouth. ity of (PROTONIX 13:01: [place] ORAL) [address] [place] [address] tiZANidine 2020-10 Yes 4mg Take 4 mg Un henry (ZANAFLEX) 1-18 by mouth 2 ity of 4 mg 13:01: (two) [place] capsule 23 times Medical daily. Branch IRON &IRON 2020-10 Yes Take by [facility] ers ASP 1-18 mouth. ity of GLY-FA-MV,M 13:01: Indication [place] IN38 ORAL 23 s: iron Medical injectio Branch once a month DICLOFENAC 2020-10 Yes Take 50 mg U nivers POTASSIUM 1-18 base by ity of (CAMBIA 13:01: mouth. [place] ORAL) [address] [place] [address] Branch propranolol 2020-10 Yes 20mg Take 20 mg Univers 20 mg 1-18 by mouth ity of tablet 13:01: daily. [address] FLUoxetine 2020-10 Yes 40mg Take 40 mg U nivers (PROZAC) 40 1-18 by mouth ity of mg capsule 13:01: daily. [address] gabapentin 2020-10 Yes 300mg Take 300 Un henry 300 mg 1-18 mg by ity of capsule 13:01: mouth 3 [place] [address] (three) Medical times [place] daily. Indication s: 1 in the Am and 4 at bed time ziprasidone 2020-10 Yes 60mg Take 60 mg Univers (GEODON) 60 1-18 by mouth ity of mg capsule 13:01: daily. [address] PANTOPRAZOL 2020-10 Yes 40mg Take 40 mg Univers E SODIUM 1-18 by mouth. ity of (PROTONIX 13:01: [place] ORAL) [address] [place] [address] Branch tiZANidine 2020-10 Yes 4mg Take 4 mg Un henry (ZANAFLEX) 1-18 by mouth 2 ity of 4 mg 13:01: (two) [place] capsule 23 times [facility] daily. Branch IRON &IRON 2020-10 Yes Take by Univ ers ASP 1-18 mouth. ity of Cristofer MEEKS 13:01: Indication [place] IN ORAL 23 s: iron Medical injectio Branch once a month DICLOFENAC 2020-10 Yes Take 50 mg U nivers POTASSIUM 1-18 base by ity of (CAMBIA 13:01: mouth. [facility]) [address] [place] [address] Branch propranolol 2020-10 Yes 20mg Take 20 mg Univers 20 mg 1-18 by mouth ity of tablet 13:01: daily. [address] FLUoxetine 2020-10 Yes 40mg Take 40 mg U nivers (PROZAC) 40 1-18 by mouth ity of mg capsule 13:01: daily. [address] gabapentin 2020-10 Yes 300mg Take 300 Un henry 300 mg 1-18 mg by ity of capsule 13:01: mouth 3 [place] [address] (three) Medical times Branch daily. Indication s: 1 in the Am and 4 at bed time ziprasidone 2020-10 Yes 60mg Take 60 mg Univers (GEODON) 60 1-18 by mouth ity of mg capsule 13:01: daily. [address] Branch PANTOPRAZOL 2020-10 Yes 40mg Take 40 mg Univers E SODIUM 1-18 by mouth. ity of (PROTONIX 13:01: [place] ORAL) 23 Medical Branch tiZANidine 2020-10 Yes 4mg Take 4 mg Un henry (ZANAFLEX) 1-18 by mouth 2 ity of 4 mg 13:01: (two) [place] capsule 23 times Medical daily. Branch IRON &IRON 2020-10 Yes Take by Univ ers ASP 1-18 mouth. ity of LINUS-LATOYAM 13:01: Indication [place] IN38 ORAL 23 s: iron Medical injectio Branch once a month DICLOFENAC 2020-10 Yes Take 50 mg U nivers POTASSIUM 1-18 base by ity of (CAMBIA 13:01: mouth. [place] ORAL) Medical Branch propranolol 2020-10 Yes 20mg Take 20 mg Univers 20 mg 1-18 by mouth ity of tablet 13:01: daily. [address] Branch Sulfamethox Sulfamethox 2020- No 1{table [...] HCl 50 MG 00:00: 00 traMADol traMADol 2020-1 No 1{table traMADol HCl 50 MG HCl [...] mouth [place] 00 :00 daily. Medical Branch Amitiza Amitiza Yes Davin 1 capsule Co mmon [place]att with food [facility] Pantoprazol Pantoprazol Yes Davin 1 tablet Common e Sodium e Sodium Platt [facility] Propranolol Propranolol Yes Davin 1 tablet Common HCl HCl Platt on an Spirit empty - CHI stomach [facility] Vitamin D3 Vitamin D3 Yes Davin 1 capsule Common Platt Spirit [facility] Levothyroxi Levothyroxi Yes Davin 1 tablet Common ne Sodium ne Sodium Platt on an Spi rit empty - CHI stomach in [facility] Promethazin Promethazin Yes Davin 5 ml as Common e-DM e-DM Platt needed Spirit Nausea/Vom - CHI iting [facility] Clonazepam Clonazepam Yes Davin 1 tablet Common Platt at bedtime [facility] Geodon Geodon Yes Davin 1 capsule Comm on Platt with food [facility] baclofen baclofen Yes Davin 1 tab as C ommon Platt needed for [facility] pain [facility] Iron Iron Yes Davin not Common Supplement Supplement Platt defined [facility] Ziprasidone Ziprasidone Yes Davin 1 capsule Common HCl HCl Platt with food [facility] Tizanidine Tizanidine Yes Davin 1 tablet Common HCl HCl Platt [facility] HydrOXYzine HydrOXYzine Yes Davin 1 tablet Common HCl HCl Platt [facility] Gabapentin Gabapentin Yes Davin 1 tablet Common Platt am and 2 Spirit tabs [facility] Gabapentin Gabapentin Yes Davin TAKE ONE Common Platt TABLET BY [facility] MOUTH [facility] EVERY [facility] M[facility] AND THEN Medical TAKE TWO Center TABLETS BY MOUTH EVERY EVENING Wellbutrin Wellbutrin Yes Davin 1 tablet Common XL XL Platt in the [facility] Fluoxetine Fluoxetine Yes Davin 1 capsule Common HCl HCl Platt [facility] Pantoprazol Pantoprazol No Pantoprazo e Sodium 40 [...] Vitamin D3 No 1{capsu QD Vitamin D3 1999 UNIT 2000 UNIT le} 2000 UNIT Pantoprazol [...] HCl 10 MG l HCl 10 MG [place] No [place] FLUoxetine FLUoxetine No 1{capsu QD FLUoxetine HCl [...] ne-DM 6.25-15 6.25-15 6.25-15 MG/5ML MG/5ML MG/5ML [place] No Henderson lamoTRIgine lamoTRIgine No 1{table QD lamoTRIgin 100 [...] HCl 10 MG Effexor Effexor No Effexor [place] No [place] Pantoprazol Pantoprazol No Pantoprazo e Sodium 40 [...] ne-DM 6.25-15 6.25-15 6.25-15 MG/5ML MG/5ML MG/5ML [place] No [place] Pantoprazol Pantoprazol No Pantoprazo e Sodium 40 [...] Vitamin D3 No 1{capsu QD Vitamin D3 1999 UNIT 2000 UNIT le} 2000 UNIT Propranolol Propranolol No Propranolo HCl 10 MG HCl 10 MG l HCl 10 MG tiZANidine tiZANidine No 1{table tiZANidine HCl 4 MG HCl 4 MG t} HCl 4 MG [place] No [place] Effexor Effexor No Effexor Geodon 60 Geodon [...] MG 200 MG t} e 200 MG [place] No [place] Propranolol Propranolol No 1{table BID Propranolo HCl [...] MG 200 MG t} e 200 MG [place] No [place] Propranolol Propranolol No 1{table BID Propranolo HCl [...] MG le_with e HCl 60 _food} MG [place] No [place] lamoTRIgine lamoTRIgine No 1{table QD lamoTRIgin 200 [...] MG le_with e HCl 60 _food} MG [place] No [place] lamoTRIgine lamoTRIgine No 1{table QD lamoTRIgin 200 [...] MG le_with e HCl 60 _food} MG [place] No [place] lamoTRIgine lamoTRIgine No 1{table QD lamoTRIgin 200 [...] MG le_with e HCl 60 _food} MG [place] No [place] lamoTRIgine lamoTRIgine No 1{table QD lamoTRIgin 200 [...] HCl 10 MG l HCl 10 MG [place] No [place] Iron Iron No Iron Supplement Supplement Supplement [...] HCl 10 MG l HCl 10 MG [place] No [place] LORazepam LORazepam No 1{table QD LORazepam 0.5 MG 0.5 MG t_at_be 0.5 MG dtime_a s_neede d} hydrOXYzine hydrOXYzine No 1{table hydrOXYzin HCl 50 MG HCl 50 MG t_as_ne e HCl 50 eded} MG Propranolol Propranolol No 1{table BID Propranolo HCl 20 MG HCl 20 MG t_on_an l HCl 20 _empty_ MG stomach } Gabapentin Gabapentin No Gabapentin 600 MG 600 MG 600 MG [place] No [place] Pantoprazol Pantoprazol No 1{table QD Pantoprazo e [...] MG t_with_ e HCl 75 food} MG [place] No [place] Ziprasidone Ziprasidone No 2{capsu BID Ziprasidon HCl [...] MG t_with_ e HCl 75 food} MG [place] No [place] Ziprasidone Ziprasidone No 2{capsu BID Ziprasidon HCl [...] MG t_with_ e HCl 75 food} MG [place] No [place] Ziprasidone Ziprasidone No 2{capsu BID Ziprasidon HCl [...] HCl 20 MG l HCl 20 MG [place] No [place] Gabapentin Gabapentin No Gabapentin 600 MG 600 [...] Sodium 50 MCG 50 MCG 50 MCG [place] No [place] Pantoprazol Pantoprazol No Pantoprazo e Sodium 40 [...] Gabapentin 600 MG 600 MG 600 MG [place] No [place] Amitiza 24 Amitiza 24 No 1{capsu BID [...] t} le Sodium MG MG 40 MG [place] No [place] Vitamin D3 Vitamin D3 No 1{capsu QD [...] t} le Sodium MG MG 40 MG [place] No [place] Vitamin D3 Vitamin D3 No 1{capsu QD [...] Sodium 50 MCG 50 MCG 50 MCG [place] No [place] Vitamin D3 Vitamin D3 No 1{capsu QD [...] HCl 4 MG n HCl 4 MG [place] No [place] Promethazin Promethazin No QID Promethazi e-DM e-DM ne-DM 6.25-15 6.25-15 6.25-15 MG/5ML MG/5ML MG/5ML [place] No [place] Geodon 60 Geodon 60 No 1{capsu BID [...] t} le Sodium MG MG 40 MG Immunizations Ordered Filled Immunization Date Status Comments Sourc e Immunization Name Name Modernkala COVID-19 Moderna COVID-19 2022-11-20 Completed [facility] - Vaccine, Bivalent Vaccine, Bivalent 08:50:00 [facility] Moderna COVID-19 Moderna COVID-19 2021-02-14 Completed [facility] - Vaccine Vaccine 09:03:00 [facility] Moderna COVID-19 Moderna COVID-19 2021-02-14 Completed [facility] - Vaccine Vaccine 09:03:00 [facility] Moderna COVID-19 Moderna COVID-19 2021-02-14 Completed [facility] - Vaccine Vaccine 09:03:00 [facility] Moderna COVID-19 Moderna COVID-19 2021-02-14 Completed [facility] - Vaccine Vaccine 09:03:00 [facility] Moderna COVID-19 Moderna COVID-19 2021-02-14 Completed [facility] - Vaccine Vaccine 09:03:00 [facility] Moderna COVID-19 Moderna COVID-19 2021-02-14 Completed [facility] - Vaccine Vaccine 09:03:00 [facility] Moderna COVID-19 Moderna COVID-19 2021-02-14 Completed [facility] - Vaccine Vaccine 09:03:00 [facility] Moderna COVID-19 Moderna COVID-19 2021-02-14 Completed [facility] - Vaccine Vaccine 09:03:00 [facility] Moderna COVID-19 Moderna COVID-19 2021-02-14 Completed [facility] - Vaccine Vaccine 09:03:00 [facility] Moderna COVID-19 Moderna COVID-19 2021-02-14 Completed [facility] - Vaccine Vaccine 09:03:00 [facility] Moderna COVID-19 Moderna COVID-19 2021-02-14 Completed [facility] - Vaccine Vaccine 09:03:00 [facility] Moderna COVID-19 Moderna COVID-19 2021-02-14 Completed [facility] - Vaccine Vaccine 09:03:00 [facility] Moderna COVID-19 Moderna COVID-19 2021-02-14 Completed [facility] - Vaccine Vaccine 09:03:00 [facility] Moderna COVID-19 Moderna COVID-19 2021-02-14 Completed [facility] - Vaccine Vaccine 09:03:00 [facility] Moderna COVID-19 Moderna COVID-19 2021-02-14 Completed [facility] - Vaccine Vaccine 09:03:00 [facility] Moderna COVID-19 Moderna COVID-19 2021-02-14 Completed [facility] - Vaccine Vaccine 09:03:00 [facility] Moderna COVID-19 Moderna COVID-19 2021-02-14 Completed [facility] - Vaccine Vaccine 09:03:00 [facility] Moderna COVID-19 Moderna COVID-19 2021-02-14 Completed [facility] - Vaccine Vaccine 09:03:00 [facility] Moderna COVID-19 Moderna COVID-19 2021-02-14 Completed [facility] - Vaccine Vaccine 09:03:00 [facility] Moderna COVID-19 Moderna COVID-19 2021-02-14 Completed [facility] - Vaccine Vaccine 09:03:00 [facility] Moderna COVID-19 Moderna COVID-19 2021-02-14 Completed [facility] - Vaccine Vaccine 09:03:00 [facility] Moderna COVID-19 Moderna COVID-19 2021-02-14 Completed [facility] - Vaccine Vaccine 09:03:00 [facility] Moderna COVID-19 Moderna COVID-19 2021-02-14 Completed [facility] - Vaccine Vaccine 09:03:00 [facility] Moderna COVID-19 Moderna COVID-19 2021-02-14 Completed [facility] - Vaccine Vaccine 09:03:00 [facility] Moderna COVID-19 Moderna COVID-19 2021-02-14 Completed [facility] - Vaccine Vaccine 09:03:00 [facility] SARS-COV-2 COVID-19 2021-02-10 Completed Unive rsity of MODERNA VACCINE 00:00:00 [facility] [place] [facility] SARS-COV-2 COVID-19 2021-02-10 Completed Unive rsity of MODERNA VACCINE 00:00:00 [facility] [place] [facility] SARS-COV-2 COVID-19 2021-02-10 Completed Unive rsity of MODERNA VACCINE 00:00:00 [facility] [place] [facility] SARS-COV-2 COVID-19 2021-02-10 Completed Unive rsity of MODERNA VACCINE 00:00:00 [facility] [place] [facility] SARS-COV-2 COVID-19 2021-02-10 Completed Unive rsity of MODERNA 12+ YRS 00:00:00 [place] [facility] ical VACCINE Branch SARS-COV-2 COVID-19 2021-02-10 Completed Unive rsity of MODERNA 12+ YRS 00:00:00 [place] [facility] ical VACCINE Branch SARS-COV-2 COVID-19 2021-02-10 Completed Unive rsity of MODERNA 12+ YRS 00:00:00 [facility] ical VACCINE Branch SARS-COV-2 COVID-19 2021-02-10 Completed Unive rsity of MODERNA VACCINE 00:00:00 [facility] ical Branch SARS-COV-2 COVID-19 2021-02-10 Completed Unive rsity of MODERNA 12+ YRS 00:00:00 [facility] ical VACCINE Branch SARS-COV-2 COVID-19 2021-02-10 Completed Unive rsity of MODERNA 12+ YRS 00:00:00 [facility] ical VACCINE Branch SARS-COV-2 COVID-19 2021-02-10 Completed Unive rsity of MODERNA 12+ YRS 00:00:00 [facility] ical VACCINE Branch SARS-COV-2 COVID-19 2021-02-10 Completed Unive rsity of MODERNA VACCINE 00:00:00 [facility] ical Branch SARS-COV-2 COVID-19 2021-02-10 Completed Unive rsity of MODERNA VACCINE 00:00:00 [facility] Branch Moderna COVID-19 Moderna COVID-19 2021-01-13 Completed [facility] - Vaccine Vaccine 16:57:00 [facility] Moderna COVID-19 Moderna COVID-19 2021-01-13 Completed [facility] - Vaccine Vaccine 16:57:00 [facility] Moderna COVID-19 Moderna COVID-19 2021-01-13 Completed [facility] - Vaccine Vaccine 16:57:00 [facility] Moderna COVID-19 Moderna COVID-19 2021-01-13 Completed [facility] - Vaccine Vaccine 16:57:00 [facility] Moderna COVID-19 Moderna COVID-19 2021-01-13 Completed [facility] - Vaccine Vaccine 16:57:00 [facility] Moderna COVID-19 Moderna COVID-19 2021-01-13 Completed [facility] - Vaccine Vaccine 16:57:00 [facility] Moderna COVID-19 Moderna COVID-19 2021-01-13 Completed [facility] - Vaccine Vaccine 16:57:00 [facility] Moderna COVID-19 Moderna COVID-19 2021-01-13 Completed [facility] - Vaccine Vaccine 16:57:00 [facility] Moderna COVID-19 Moderna COVID-19 2021-01-13 Completed [facility] - Vaccine Vaccine 16:57:00 [facility] Moderna COVID-19 Moderna COVID-19 2021-01-13 Completed [facility] - Vaccine Vaccine 16:57:00 [facility] Moderna COVID-19 Moderna COVID-19 2021-01-13 Completed [facility] - Vaccine Vaccine 16:57:00 [facility] Moderna COVID-19 Moderna COVID-19 2021-01-13 Completed [facility] - Vaccine Vaccine 16:57:00 [facility] Moderna COVID-19 Moderna COVID-19 2021-01-13 Completed [facility] - Vaccine Vaccine 16:57:00 [facility] Moderna COVID-19 Moderna COVID-19 2021-01-13 Completed [facility] - Vaccine Vaccine 16:57:00 [facility] Moderna COVID-19 Moderna COVID-19 2021-01-13 Completed [facility] - Vaccine Vaccine 16:57:00 [facility] [facility] COVID-19 Moderna COVID-19 2021-01-13 [facility] 16:57:00 [facility] Moderna COVID-19 Moderna COVID-19 2021-01-13 Completed [facility] Vaccine 16:57:00 [facility] Moderna COVID-19 Moderna COVID-19 2021-01-13 Completed [facility] Vaccine 16:57:00 [facility] Moderna COVID-19 Moderna COVID-19 2021-01-13 Completed [facility] Vaccine 16:57:00 [facility] Moderna COVID-19 Moderna COVID-19 2021-01-13 Completed [facility] Vaccine 16:57:00 [facility] Moderna COVID-19 Moderna COVID-19 2021-01-13 Completed [facility] Vaccine 16:57:00 [facility] Moderna COVID-19 Moderna COVID-19 2021-01-13 Completed [facility] Vaccine 16:57:00 [facility] Moderna COVID-19 Moderna COVID-19 2021-01-13 Completed [facility] Vaccine 16:57:00 [facility] Moderna COVID-19 Moderna COVID-19 2021-01-13 Completed [facility] Vaccine 16:57:00 [facility] Moderna COVID-19 Moderna COVID-19 2021-01-13 Completed [facility] Vaccine 16:57:00 [facility] SARS-COV-2 COVID-19 2021-01-13 Completed Unive rsity of MODERNA VACCINE 00:00:00 [facility] ical Branch SARS-COV-2 COVID-19 2021-01-13 Completed Unive rsity of [facility] VACCINE 00:00:00 [facility] ical Branch SARS-COV-2 COVID-19 2021-01-13 Completed Unive rsity of [facility]ERNA VACCINE 00:00:00 [facility] ical Branch SARS-COV-2 COVID-19 2021-01-13 Completed Unive rsity of [facility]NA VACCINE 00:00:00 [facility] ical Branch SARS-COV-2 COVID-19 2021-01-13 Completed Unive rsity of MODERNA 12+ YRS 00:00:00 [facility] ical VACCINE Branch SARS-COV-2 COVID-19 2021-01-13 Completed Unive rsity of MODERNA 12+ YRS 00:00:00 [facility] ical VACCINE Branch SARS-COV-2 COVID-19 2021-01-13 Completed Unive rsity of MODERNA 12+ YRS 00:00:00 [facility] ical VACCINE Branch SARS-COV-2 COVID-19 2021-01-13 Completed Unive rsity of [facility] VACCINE 00:00:00 [place] [facility] SARS-COV-2 COVID-19 2021-01-13 Completed Unive rsity of MODERNA 12+ YRS 00:00:00 [place] [facility] VACCINE [facility] SARS-COV-2 COVID-19 2021-01-13 Completed Unive rsity of MODERNA 12+ YRS 00:00:00 [place] [facility] VACCINE [facility] SARS-COV-2 COVID-19 2021-01-13 Completed Unive rsity of MODERNA 12+ YRS 00:00:00 [place] [facility] VACCINE [facility] SARS-COV-2 COVID-19 2021-01-13 Completed Unive rsity of MODERNA VACCINE 00:00:00 [facility] ical Branch SARS-COV-2 COVID-19 2021-01-13 Completed Unive rsity of MODERNA VACCINE 00:00:00 [facility] Branch Vital Signs Vital Name Observation Time Observation Value Comments Source height 2022-09-22 11:10:00 61.5 [in_i] [facility] weight 2022-09-22 11:10:00 143 [lb_av] [facility] temperature 2022-09-22 11:10:00 98 [degF] [facility] bmi 2022-09-22 11:10:00 26.58 kg/m2 [facility] blood pressure 2022-09-22 11:10:00 128 mm[Hg] [facility] systolic [facility] blood pressure 2022-09-22 11:10:00 76 mm[Hg] [facility] - diastolic [facility] height 2022-09-06 14:30:00 61.5 [in_i] [facility] weight 2022-09-06 14:30:00 145 [lb_av] [facility] temperature 2022-09-06 14:30:00 97.4 [degF] [facility] bmi 2022-09-06 14:30:00 26.95 kg/m2 [facility] blood pressure 2022-09-06 14:30:00 125 mm[Hg] [facility] - [facility] blood pressure 2022-09-06 14:30:00 84 mm[Hg] [facility] - [facility] height 2022-07-29 14:30:00 61.5 [in_i] [facility] weight 2022-07-29 14:30:00 145 [lb_av] [facility] temperature 2022-07-29 14:30:00 97.0 [degF] [facility] bmi 2022-07-29 14:30:00 26.95 kg/m2 [facility] blood pressure 2022-07-29 14:30:00 128 mm[Hg] [facility] - systolic [facility] blood pressure 2022-07-29 14:30:00 82 mm[Hg] [facility] - diastolic [facility] Systolic blood 2022-07-26 20:00:00 161 mm[Hg] [facility]iver [facility] Diastolic blood 2022-07-26 20:00:00 94 mm[Hg] [place] [facility] Heart rate 2022-07-26 20:00:00 78 /min [facility] Oxygen saturation in 2022-07-26 20:00:00 100 /min [facility] Arterial blood by [facility] Pulse oximetry Branch Respiratory rate 2022-07-26 19:40:00 16 /min [facility] Body temperature 2022-07-26 16:42:00 36.89 Sarah [facility] Body height 2022-07-26 16:42:00 157.5 cm [facility] Body weight 2022-07-26 16:42:00 72.576 kg [facility] BMI 2022-07-26 16:42:00 29.26 kg/m2 [facility] height 2022-07-09 09:30:00 61.5 [in_i] Common S [facility] weight 2022-07-09 09:30:00 145 [lb_av] Common [facility] temperature 2022-07-09 09:30:00 97.1 [degF] Common [facility] bmi 2022-07-09 09:30:00 26.95 kg/m2 [facility] blood pressure 2022-07-09 09:30:00 100 mm[Hg] Common [facility] - systolic [facility] blood pressure 2022-07-09 09:30:00 68 mm[Hg] Common [facility] - diastolic [facility] height 2022-06-30 15:00:00 61.5 [in_i] [facility] weight 2022-06-30 15:00:00 142 [lb_av] [facility] temperature 2022-06-30 15:00:00 97.9 [degF] [facility] bmi 2022-06-30 15:00:00 26.39 kg/m2 [facility] oximetry 2022-06-30 15:00:00 98 % [facility] respiratory rate 2022-06-30 15:00:00 16 /min [facility] blood pressure 2022-06-30 15:00:00 145 mm[Hg] [facility] - systolic [facility] blood pressure 2022-06-30 15:00:00 70 mm[Hg] [facility] - diastolic [facility] Respiratory rate 2022-06-21 12:47:00 16 /min [facility] in 2022-06-21 12:47:00 94 /min [facility] Arterial blood by [facility] Pulse oximetry Branch Systolic blood 2022-06-21 12:43:00 102 mm[Hg] [facility]iver [facility] of [facility] Diastolic blood 2022-06-21 12:43:00 59 mm[Hg] [facility] [place] [facility] Heart rate 2022-06-21 12:43:00 70 /min [facility] Body temperature 2022-06-21 12:43:00 35.72 Sarah [facility] weight 2022-06-21 08:14:00 72.666 kg [facility] BMI 2022-06-21 08:14:00 29.30 kg/m2 [facility] Body height 2022-06-17 03:46:00 157.5 cm [facility] height 2022-06-09 13:00:00 61.5 [in_i] Common [facility] weight 2022-06-09 13:00:00 148 [lb_av] Common [facility] temperature 2022-06-09 13:00:00 98.7 [degF] [facility] bmi 2022-06-09 13:00:00 27.51 kg/m2 [facility] oximetry 2022-06-09 13:00:00 96 % [facility] respiratory rate 2022-06-09 13:00:00 16 /min [facility] blood pressure 2022-06-09 13:00:00 138 mm[Hg] Common [facility] - systolic [facility] blood pressure 2022-06-09 13:00:00 80 mm[Hg] Common [facility] - diastolic [facility] height 2022-06-09 13:00:00 62 [in_i] Common [facility] weight 2022-06-09 13:00:00 148 [lb_av] Common [facility] temperature 2022-06-09 13:00:00 98.7 [degF] Common [facility] bmi 2022-06-09 13:00:00 27.07 kg/m2 [facility] oximetry 2022-06-09 13:00:00 96 % [facility] respiratory rate 2022-06-09 13:00:00 16 /min [facility] blood pressure 2022-06-09 13:00:00 138 mm[Hg] Common [facility] - systolic [facility] blood pressure 2022-06-09 13:00:00 80 mm[Hg] [facility] - [facility] WEIGHT 2022-04-14 13:36:00 65.454 kg height 2022-02-09 13:10:00 62 [in_i] [facility] weight 2022-02-09 13:10:00 148.8 [lb_av] Common [facility] temperature 2022-02-09 13:10:00 96.6 [degF] Common [facility] bmi 2022-02-09 13:10:00 27.21 kg/m2 [facility] oximetry 2022-02-09 13:10:00 100 % [facility] respiratory rate 2022-02-09 13:10:00 18 /min [facility] blood pressure 2022-02-09 13:10:00 131 mm[Hg] Common [facility] - systolic [facility] blood pressure 2022-02-09 13:10:00 69 mm[Hg] Common [facility] - diastolic [facility] HEIGHT 2022-01-04 10:22:00 157.5 cm WEIGHT 2022-01-04 10:22:00 67.087 kg height 2021-10-12 14:10:00 62 [in_i] [facility] weight 2021-10-12 14:10:00 155 [lb_av] Common [facility] temperature 2021-10-12 14:10:00 98 [degF] [facility] bmi 2021-10-12 14:10:00 28.35 kg/m2 Common [facility] blood pressure 2021-10-12 14:10:00 121 mm[Hg] Common [facility] - systolic [facility] blood pressure 2021-10-12 14:10:00 76 mm[Hg] Common [facility] - diastolic [facility] Heart rate 2021-09-22 18:07:00 78 /min [facility] Systolic blood 2021-09-22 18:06:00 117 mm[Hg] Univer sity of pressure [facility] Diastolic blood 2021-09-22 18:06:00 65 mm[Hg] Unive rsity of pressure [facility] Oxygen saturation in 2021-09-22 18:06:00 100 /min [facility] Arterial blood by [place] [facility] Pulse oximetry Branch Respiratory rate 2021-09-22 18:05:00 21 /min Univ ers[facility] Body temperature 2021-09-22 17:42:00 36.5 Sarah [facility] Body height 2021-09-14 14:52:00 157.5 cm [facility] Body weight 2021-09-14 14:52:00 70.3 kg [facility] [place] [facility] BMI 2021-09-14 14:52:00 28.34 kg/m2 [facility] Heart rate 2021-09-22 18:01:00 62 /min [facility] [place] [facility] Respiratory rate 2021-09-22 18:01:00 30 /min Univ ers[facility] of [facility] Oxygen saturation in 2021-09-22 18:01:00 100 /min [facility] Arterial blood by [place] [facility] Pulse oximetry Branch Systolic blood 2021-09-22 17:56:00 105 mm[Hg] Univer sity of pressure [facility] Diastolic blood 2021-09-22 17:56:00 62 mm[Hg] Unive rsity of pressure [facility] Body temperature 2021-09-22 17:42:00 36.5 Sarah Univ [facility] Body height 2021-09-14 14:52:00 157.5 [...] 18:45:00 127 mm[Hg] Univer sity of pressure [facility] Diastolic blood 2021-08-20 18:45:00 74 mm[Hg] Unive rsity of pressure [facility] Body temperature 2021-08-20 18:33:00 36.39 Sarah Univ ersity of [facility] Body height 2021-08-20 17:49:00 157.5 cm Universi ty of [facility] Body weight 2021-08-20 17:49:00 70.308 kg Universi [facility] BMI 2021-08-20 17:49:00 28.35 kg/m2 [facility] Heart rate 2021-08-20 18:49:00 62 /min [facility]i [facility] Oxygen saturation in 2021-08-20 18:49:00 100 /min [facility] Arterial blood by [facility] Pulse oximetry Branch Respiratory rate 2021-08-20 18:47:00 19 /min Univ ersity of [facility] Systolic blood 2021-08-20 18:45:00 127 mm[Hg] Univer sity of [facility] Diastolic blood 2021-08-20 18:45:00 74 mm[Hg] Unive rsity of [facility] Body temperature 2021-08-20 18:33:00 36.39 Sarah Univ ersity of [facility] Body height 2021-08-20 17:49:00 157.5 cm Universi ty of [facility] Body weight 2021-08-20 17:49:00 70.308 kg [facility]i [facility] BMI 2021-08-20 17:49:00 28.35 kg/m2 Universi [facility] of [facility] Systolic blood 2022-04-14 13:36:00 118 mm[Hg] [facility] Diastolic blood 2022-04-14 13:36:00 77 mm[Hg] [facility] S t [facility] Heart rate 2022-04-14 13:36:00 69 /min [facility] Body temperature 2022-04-14 13:36:00 36.67 Sarah [facility] Body weight 2022-04-14 13:36:00 65.454 kg [facility] BMI 2022-04-14 13:36:00 26.39 kg/m2 [facility] Procedures Procedure Date / Time Performing Source Performed Clinician MR LUMBAR SPINE WO CONTRAST 2022-09-23 Shan Santana Uni versity of 21:10:02 S [facility] ASSIGNMENT OF BENEFITS 2022-09-[address] [facility] y of 20:12:40 Unassigned, No [facility] COMP. METABOLIC PANEL ([id number]) 2022-07-26 Nilay Lennon iversity of 18:57:00 [facility] CBC WITH DIFF 2022-07-26 Lennon, [facility] of 18:57:00 [facility] URINALYSIS 2022-07-26 Singer [facility] of 18:57:[address] [facility] [address] ABDOMEN PELVIS WO CONTRAST 2022-07-26 Nilay Lennon iversity of 18:03:32 [facility] CONSENT/REFUSAL FOR DIAGNOSIS AND 2022-07-26 [facility] TREATMENT 16:32:59 Unassigned, No [facility] HEPATIC FUNCTION PANEL ([id number]) 2022-06-21 Tika Cummings U niversity of (ALB,T.PRO,BILI 11:05:00 [facility] T,BU/BC,ALT,AST,ALK PHOS) [place] BASIC METABOLIC PANEL (NA, K, CL, 2022-06-21 Emiliano Tika University of CO2, GLUCOSE, BUN, CREATININE, CA) 11:05:00 [facility] URINALYSIS 2022-06-20 Tika Cummings [place] of 22:41:00 [facility] BASIC METABOLIC PANEL (NA, K, CL, 2022-06-20 Emiliano Tika University of CO2, GLUCOSE, BUN, CREATININE, CA) 08:54:00 [facility] CBC WITH DIFF 2022-06-20 Tika Cummings [place] of 08:54:00 [facility] HEPATIC FUNCTION PANEL ([id number]) 2022-06-19 Tika Cummings U niversity of (ALB,T.PRO,BILI 09:22:00 [facility] T,BU/BC,ALT,AST,ALK PHOS) Branch BASIC METABOLIC PANEL (NA, K, CL, 2022-06-19 Emiliano Tika University of CO2, GLUCOSE, BUN, CREATININE, CA) 09:22:00 [facility] CBC WITH DIFF 2022-06-19 Tika Cummings of 09:22:00 [facility] BLOOD CULTURE SCREEN 2022-06-19 Jesus Mora of 03:22:00 [facility] BLOOD CULTURE SCREEN 2022-06-19 Jesus Mora of 03:16:00 [facility] XR CHEST 1 VW 2022-06-19 Jesus Mora of 01:50:09 [facility] HEPATIC FUNCTION PANEL ([id number]) 2022-06-18 Tika Cummings niversity of (ALB,T.PRO,BILI 10:14:00 [facility],BU/BC,ALT,AST,ALK PHOS) Branch PHOSPHORUS 2022-06-17 Herbie Olvera [place] of 09:00:00 [facility] MAGNESIUM 2022-06-17 [facility] of 09:00:00 [facility] TROPONIN I 2022-06-17 [facility] of 09:00:00 [facility] THYROID STIMULATING HORMONE 2022-06-17 [facility] ersity of 09:00:00 [facility] COMP. METABOLIC PANEL ([id number]) 2022-06-17 Herbie Olvera iversity of 09:00:00 [facility] LIPID PANEL ([id number])(TOTAL 2022-06-17 Herbie Olvera [facility] sity of CHOLESTEROL, TRIGLYCERIDES, HDL) 09:00:00 [facility] CBC WITH DIFF 2022-06-17 Herbie Olvera [place] of 09:00:00 [facility] PROTHROMBIN TIME / IN[facility] 2022-06-17 [facility] 09:00:00 [facility] HEPATITIS B SURFACE ANTIBODY 2022-06-17 Jesus Mora [facility] versity of 09:00:00 [facility] HEPATITIS B SURFACE ANTIGEN 2022-06-17 Jesus Mora [facility] ersity of 09:00:00 [facility] HCV ANTIBODY 2022-06-17 Jesus Mora of 09:00:00 [facility] HBC ANTIBODY (IGM & IGG) 2022-06-17 Jesus Mora [facility] ity of 09:00:00 [facility] LAMOTRIGINE, LEVEL 2022-06-17 Herbie Olvera [place] of 09:00:00 [facility] N-TERMINAL PRO-BNP 2022-06-17 Herbie Olvera of 09:00:00 [facility] PROCALCITONIN 2022-06-17 Herbie Olvera of 09:00:[address] [facility] [address] ABDOMEN PELVIS W CONTRAST 2022-06-17 Hill Sawyer Uni versity of 00:50:10 [facility] CBC WITH DIFF 2022-06-17 Hill Sawyer [place] of 00:24:00 [facility] GLYCOSYLATED HEMOGLOBIN (A1C) 2022-06-17 Herbie Olvera Un iversity of 00:24:00 [facility] HB ECG ROUTINE & RHYTHM STRIP 2022-06-17 Hill Sawyer Un iversity of 00:06:46 [facility] BLOOD CULTURE SCREEN 2022-06-17 Hill Sawyer [place] [facility] 00:00:00 [facility] LIPASE 2022-06-17 Hill Sawyer [place] of 00:00:00 [facility] MAGNESIUM 2022-06-17 Hill Sawyer [place] of 00:00:00 [facility] TROPONIN I 2022-06-17 Hill Sawyer of 00:00:00 [facility] COMP. METABOLIC PANEL ([id number]) 2022-06-17 Hill Sawyer Un iversity of 00:00:00 [facility] URINALYSIS 2022-06-17 Hill Sawyer [place] of 00:00:00 [facility] COVID-19 (ID NOW RAPID TESTING) 2022-06-17 Hill Sawyer of 00:00:00 [facility] LAB ONLY COVID INTERPRETATION 2022-06-17 Hill Sawyer Un iversity of 00:00:00 [facility] NOTICE OF PRIVACY PRACTICES 2022-06-16 Doctor [facility] ersity of 22:38:45 Unassigned, No [facility] CONSENT/REFUSAL FOR DIAGNOSIS AND 2022-06-16 Doctor University of TREATMENT 22:35:24 Unassigned, No [facility] HB CREATININE BLOOD 2021-10-16 Carlton Echeverria [place] [facility] f 21:37:00 [facility] NOTICE OF BILLING PRACTICES FOR 2021-10-16 Doctor [place] of MEDICARE PATIENTS 21:05:05 Unassigned, No [facility] PATIENT FINANCIAL POLICY 2021-10-16 Doctor Un iversity of 21:04:40 Unassigned, No [facility] NO SHOW OR MISSED APPOINTMENT 2021-10-16 Doctor Un iversity of POLICY ACKNOWLEDGEMENT 21:04:21 [facility], No [facility] CONSENT/REFUSAL FOR DIAGNOSIS AND 2021-10-16 Doctor [place] of TREATMENT 21:03:59 Unassigned, No [facility] ASSIGNMENT OF BENEFITS 2021-10-16 Doctor [facility] of 21:03:40 Unassigned, No [facility] COLONOSCOPY 2021-09-22 Carlton Echeverria [facility] 16:38:00 [facility] ESOPHAGOGASTRODUODENOSCOPY 2021-09-22 Carlton Echeverria [facility] of 16:38:00 [facility] COLONOSCOPY (ENDO) 2021-09-22 [facility] 16:33:27 [facility] COLONOSCOPY (ENDO) 2021-09-22 Platt [facility] 16:33:27 [facility] EGD (ENDO) 2021-09-22 [facility] 16:23:06 [facility] EGD (ENDO) 2021-09-22 [facility] 16:23:06 [facility] DAY SURGERY - ADC 2021-09-22 [place] [facility] 06:01:00 Unassigned, No [place] [facility] EXTERNAL PROVIDER RECORDS 2021-09-16 Doctor Univer sity of 06:01:00 Unassigned, No [facility] EXTERNAL PROVIDER RECORDS 2021-09-16 Doctor Univer sity of 06:01:00 Unassigned, No [facility] EXTERNAL PROVIDER RECORDS 2021-09-14 Doctor Univer sity of 06:01:00 Unassigned, No [facility] EXTERNAL PROVIDER RECORDS 2021-09-14 Doctor Univer sity of 06:01:00 Unassigned, No [facility] COLONOSCOPY (ENDO) 2021-08-20 Carlton Echeverria [facility] 18:15:37 [facility] COLONOSCOPY 2021-08-20 Carlton Echeverria [place] of 18:01:00 [facility] PATIENT QUESTIONNAIRE 2021-08-20 Doctor Kris of 06:01:00 Unassigned, No [facility] EXTERNAL PROVIDER RECORDS 2021-08-03 Doctor Irasema portillo of 05:01:00 Unassigned, No [facility] EXTERNAL PROVIDER RECORDS 2021-08-03 [facility] 05:01:00 Unassigned, No [facility] Plan of Care Planned Activity Planned Date Details Comments Source Future Scheduled 2031-09-22 Screening for malignant [facility] Test 00:00:00 neoplasm of colon Medical Ce nter (procedure) [code = 485438834] Future Scheduled 2031-09-22 Screening for malignant [facility] Test 00:00:00 neoplasm of colon Medical Ce nter (procedure) [code = 012921286] Future Scheduled 2031-09-22 Screening for malignant [facility] Test 00:00:00 neoplasm of colon Medical Ce nter (procedure) [code = 875256792] Future Scheduled 2031-09-22 Screening for malignant [facility] Test 00:00:00 neoplasm of colon Medical Ce nter (procedure) [code = 693117699] Future Scheduled 2031-09-22 Screening for malignant [facility] Test 00:00:00 neoplasm of colon Medical Ce nter (procedure) [code = 914008415] Future Scheduled 2031-09-22 Screening for malignant [facility] Test 00:00:00 neoplasm of colon Medical Ce nter (procedure) [code = 230276367] Future Scheduled 2031-09-22 Screening for malignant [facility] Test 00:00:00 neoplasm of colon Medical Ce nter (procedure) [code = 322724845] Future Scheduled 2031-09-22 Screening for malignant [facility] Test 00:00:00 neoplasm of colon Medical Ce nter (procedure) [code = 001698299] Future Scheduled 2031-09-22 Screening for malignant [facility] Test 00:00:00 neoplasm of colon Medical Ce nter (procedure) [code = 679884465] Future Scheduled 2031-09-22 Screening for malignant [facility] Test 00:00:00 neoplasm of colon Medical Ce nter (procedure) [code = 904252371] Future Scheduled 2031-09-22 Screening for malignant [facility] Test 00:00:00 neoplasm of colon Medical Ce nter (procedure) [code = 733880934] Future Scheduled 2031-09-22 Screening for malignant [facility] Test 00:00:00 neoplasm of colon Medical Ce nter (procedure) [code = 494517991] Future Scheduled 2023-06-03 Influenza Vaccine (#1) C [...] [facility] Test 00:00:00 2) [code = SHINGLES [facility] VACCINES (1 of 2)] Future Scheduled 2013-12-26 SHINGLES VACCINES ([address] [facility] 00:00:00 2) [code = SHINGLES [facility] VACCINES (1 of 2)] Future Scheduled 2013-12-26 SHINGLES VACCINES ([address] [facility] Test 00:00:00 2) [code = SHINGLES [facility] VACCINES (1 of 2)] Future Scheduled 2013-12-26 SHINGLES VACCINES ([address] [facility] Test 00:00:00 2) [facility] Future Scheduled 2008-12-26 Lipid panel (procedure) [facility] 00:00:00 [code = 99818431] Medical Ce nter Future Scheduled 2008-12-26 Lipid panel (procedure) [facility] 00:00:00 [code = 94763668] Medical Ce nter Future Scheduled 2008-12-26 Lipid panel (procedure) [facility] 00:00:00 [code = 40522639] Medical Ce nter Future Scheduled 2008-12-26 Lipid panel (procedure) [facility] 00:00:00 [code = 23860984] Medical Ce nter Future Scheduled 2008-12-26 Lipid panel (procedure) [facility] 00:00:00 [code = 66143096] Medical Ce nter Future Scheduled 2008-12-26 Lipid panel (procedure) [facility] Test 00:00:00 [code = 62011905] Medical Ce nter Future Scheduled 1984-12-26 Screening for malignant [facility] Test 00:00:00 neoplasm of cervix Medical C enter (procedure) [code = 397109038] Future Scheduled 1984-12-26 Screening for malignant [facility] Test 00:00:00 neoplasm of cervix Medical C enter (procedure) [code = 234872015] Future Scheduled 1984-12-26 Screening for malignant [facility] Test 00:00:00 neoplasm of cervix Medical C enter (procedure) [code = 039343272] Future Scheduled 1984-12-26 Screening for malignant [facility] Test 00:00:00 neoplasm of cervix Medical C enter (procedure) [code = 960619967] Future Scheduled 1984-12-26 Screening for malignant [facility] Test 00:00:00 neoplasm of cervix Medical C enter (procedure) [code = 620938762] Future Scheduled 1984-12-26 Screening for malignant [facility] Test 00:00:00 neoplasm of cervix Medical C enter (procedure) [code = 572737977] Future Scheduled 1982-12-26 DTAP/TDAP/TD VACCINES (1 [facility] [...] screening [facility] (procedure) [code = 447072946] Future Scheduled 1978-12-[address] [facility]procedure[facility] [code = 363046773] Future Scheduled 1978-12-[address] [facility] (procedure) [code = 114824309] Future Scheduled 1963 Screening for malignant [facility] 00:00:00 neoplasm of breast Medical C enter (procedure) [code = 844714862] Future Scheduled 1963 CT Colonography (combo) [facility] 00:[facility] [code = CT [facility] (combo[facility] Future Scheduled 1963 Screening for malignant [facility] 00:00:00 neoplasm of colon Medical Ce nter (procedure) [code = 956698414] Future Scheduled 1963 Screening for malignant [facility] 00:00:00 neoplasm of colon Medical Ce nter (procedure) [code = 375401551] Future Scheduled 1963 Sigmoidoscopy [code = [facility]] Medical Cente r Future Scheduled 1963 Screening for malignant [facility] 00:00:00 neoplasm of breast Medical C enter (procedure) [code = 687111156] Future Scheduled 1963 CT Colonography (combo) [facility] 00:00:00 [code = CT Colonography [facility] (combo)] Future Scheduled 1963 Screening for malignant [facility] 00:00:00 neoplasm of colon Medical Ce nter (procedure) [code = 590229257] Future Scheduled 1963 Screening for malignant [facility] 00:00:00 neoplasm of colon Medical Ce nter (procedure) [code = 339528689] Future Scheduled 1963 Sigmoidoscopy [facility]code = [facility]oscopy] Medical Cente r Future Scheduled 1963 Screening for malignant [facility] 00:00:00 neoplasm of breast Medical C enter (procedure) [code = 912940149] Future Scheduled 1963 CT Colonography (combo) [facility] 00:00:00 [code = CT [facility] (combo)] Future Scheduled 1963 Screening for malignant [facility] 00:00:00 neoplasm of colon Medical Ce nter (procedure) [code = 545097705] Future Scheduled 1963 Screening for malignant [facility] 00:00:00 neoplasm of colon Medical Ce nter (procedure) [code = 465612366] Future Scheduled 1963 Sigmoidoscopy [code = [facility] S[facility]oidoscopy] Medical Luis Daniele r Future Scheduled 1963 Screening for malignant [facility] 00:00:00 neoplasm of breast Medical C enter (procedure) [code = 431250275] Future Scheduled 1963 CT Colonography (combo) [facility] 00:00:00 [code = CT [facility] (combo)] Future Scheduled 1963 Screening for malignant [facility] 00:00:00 neoplasm of colon Medical Ce nter (procedure) [code = 705822194] Future Scheduled 1963 Screening for malignant [facility] 00:00:00 neoplasm of colon Medical Ce nter (procedure) [code = 947328963] Future Scheduled 1963 Sigmoidoscopy [facility]code = [facility]oscopy] Medical Cente r Future Scheduled 1963 Screening for malignant [facility] 00:00:00 neoplasm of breast Medical C enter (procedure) [code = 293541114] Future Scheduled 1963 CT Colonography (combo) [facility] 00:00:00 [code = CT [facility] (combo)] Future Scheduled 1963 Screening for malignant [facility] 00:00:00 neoplasm of colon Medical Ce nter (procedure) [code = 906549541] Future Scheduled 1963 Screening for malignant [facility] 00:00:00 neoplasm of colon Medical Ce nter (procedure) [code = 167961378] Future Scheduled 1963 Sigmoidoscopy [code = [facility] S[facility]oidoscopy] Medical Cente r Future Scheduled 1963 Screening for malignant [facility] 00:00:00 neoplasm of breast Medical C enter (procedure) [code = 499206505] Future Scheduled 1963 CT Colonography (combo) [facility] 00:00:00 [code = CT [facility] (combo)] Future Scheduled 1963 Screening for malignant [facility] 00:00:00 neoplasm of colon Medical Ce nter (procedure) [code = 687358203] Future Scheduled 1963 Screening for malignant [facility] 00:00:00 neoplasm of colon Medical Ce nter (procedure) [code = 485276526] Future Scheduled 1963 Sigmoidoscopy [facility]code = [facility] S[facility]oscopy] Medical Cente r Encounters Start End Encounter Admission Attending Care Care Encounter Source Date/Time Date/Time Type Type Clinicians Facility Department ID 2023-04-20 Outpatient Platt, STLMLC STLC [id number] Common 15:37:00 Davin 16763 [facility] 2023-03-18 Outpatient Platt, STLMLC STLC [id number] Common 10:58:00 Davin 63725 [facility] 2023-01-18 Outpatient Platt, STLMLC STLC [id number] Common 09:19:00 Davin 18121 [facility] 2023-01-03 Outpatient Platt, STLMLC STLC [id number] Common 13:22:00 Davin 64991 [facility] 2022-09-20 Outpatient Platt, STLMLC STLC [id number] Common 09:30:01 Davin 85999 [facility] 2022-07-09 Outpatient Platt, STLMLC STLC [id number] Common 10:44:00 Davin [facility] 2022-07-06 Outpatient Platt, STLMLC STLMLC [id number] Common 09:19:01 Davin [facility] 2022-07-05 Outpatient Platt, STLMLC STLMLC [id number] Common 16:24:02 Davin [facility] 2022-07-01 Outpatient Platt, STLMLC STLMLC [id number] Common 09:38:00 Davin [facility] 2022-06-29 Outpatient Platt, STLMLC STLMLC [id number] Common 11:52:00 Davin [facility] 2021-10-28 Outpatient Platt, STLMLC STLMLC [id number] Common 14:00:30 Davin 88103 [facility] 2021-10-28 Outpatient Platt, STLMLC STLMLC [id number] Common 13:48:24 Davin 53591 [facility] 2021-10-28 Outpatient Platt, STLMLC STLMLC [id number] Common 13:04:06 Davin 47739 [facility] 2021-10-28 Outpatient Platt, STLMLC STLMLC [id number] Common 12:33:05 Davin 45084 [facility] 2021-10-28 Outpatient Platt, STLMLC STLMLC [id number] Common 12:32:02 Davin 57471 [facility] 2021-10-28 Outpatient Platt, STLMLC STLMLC [id number] Common 12:11:19 Davin 09906 [facility] 2021-10-28 Outpatient Platt, STLMLC STLMLC [id number] Common 12:06:04 Davin 18040 [facility] 2021-10-28 Outpatient Platt, STLMLC STLMLC [id number] Common 11:57:23 Davin 33185 [facility] 2021-10-28 Outpatient Platt, STLMLC STLMLC [id number] Common 11:38:16 Davin 14184 [facility] 2021-10-28 Outpatient Platt, ST[facility] [id number] Common 11:16:03 Davin 12795 [facility] 2021-10-28 Outpatient Platt, [facility] [id number] Common 11:11:18 Davin 95269 [facility] 2021-10-28 Outpatient Platt, [facility] [id number] Common 11:09:24 Davin 47525 [facility] 2021-10-28 Outpatient Platt, [facility] [id number] Common 11:08:56 Davin 74722 [facility] 2021-10-28 Outpatient Platt, [facility] [id number] Common 11:08:09 Davin 85847 [facility] 2023-05-06 2023-05-06 Care Kathie 2.16.840. 2.16.840.1. CLAC [id number] [facility] 20:00:00 20:30:00 Coordinati Stanley 1.644644. 094184.4.6. 6U6 Medical on Non 4.6.09265 [id number] Billable 85291 2023-05-03 2023-05-03 JALEEL Visit Kristopher 2.16.840. 2.16.840.1. CL [id number] [facility] 18:00:00 19:00:00 [place] 1.420561. 222621.4.6. CFY Medical 4.6.83861 [id number] 2023-04-21 2023-04-21 Outpatient GC_GCBZW_Ka PRIV PRIV [id number] [facility] 00:00:00 00:00:00 tayler_Cisco [id number] Medic al 2023-04-18 2023-04-18 JALEEL Visit Marydaniel 2.16.840. 2.16.840.1. CL [id number] [facility] 15:30:00 16:30:00 [place] 1.873786. 803320.4.6. GZY Medical 4.6.79628 [id number] 2022-11-16 2022-11-16 ROSALBA Gutiérrez Abhinav 2.16.840. 2.16.840.1. C [id number] [facility] 21:30:00 22:30:00 1.154328. 642353.4.6. RRG [facility] 4.6.16835 [id number] 2022-11-11 2022-11-11 [id number] [facility] 00:[facility]00 00:00:00 [facility] 2022-11-11 2022-11-11 Telephone Roly, [facility] [id number] 00:[facility]00 00:00:00 [facility] 2022-11-10 2022-11-10 [facility]EL) [facility] [id number] Co mmon 00:00:00 00:00:00 [facility] 2022-11-09 2022-11-09 Outpatient Alex_R DMG [facility] [id number] [facility] 00:00:00 00:00:00 [id number] [facility] 2022-11-09 2022-11-09 Outpatient Alex_R DMG [facility] [id number] [facility] 00:00:00 00:00:00 [id number] [facility]ica l Group 2022-11-09 2022-11-09 Outpatient Alex_R DMG [facility] [id number] [facility] 00:00:00 00:00:00 [id number] [facility]ica l Group 2022-10-29 2022-10-29 (TEL) [facility] [id number] Co mmon 00:00:00 00:00:00 [facility] 2022-10-25 2022-10-25 (TEL) [facility] [id number] Co mmon 00:00:00 00:00:00 [facility] 2022-09-23 2022-09-23 Outpatient Patsy SANTANA [facility] [id number] Univers 14:15:10 23:59:[address] [facility] 2022-09-23 2022-09-23 [facility] 1.2.840.114 [id number] Univers 14:15:10 23:59:00 Encounter Shan BURRELL 350.1.13.10 ity of [place] 4.2.7.2.686 [facility] [id number] [facility] 804 Branch 2022-09-23 2022-09-23 Orders Doctor GRISEL 1.2.840.114 [id number] Univers 00:00:00 00:00:00 Only Unassigned, LEONIDES 350.1.13.[address] [facility] 4.2.7.2.686 [facility] [id number] [facility] 009 Branch 2022-09-22 2022-09-22 OFFICE STLMLC STLC [id number] Co mmon 00:00:00 00:00:00 VISIT Juan C LEZAMA PT - CHI LEVEL 4 [facility] 2022-09-06 2022-09-06 Telephone Oscar, [facility] [id number] 00:00[facility]00 00:00:00 [facility] 2022-09-06 2022-09-06 Telephone Oscar[facility] [id number] 00:00:00 00:00:00 [facility] 2022-09-06 2022-09-06 OFFICE STLC STLC [id number] Co mmon 00:00:00 00:00:00 VISIT Juan C LEZAMA PT - CHI LEVEL 4 [facility] 2022-08-11 2022-08-11 Outpatient Patsy OJEDA, [facility] [id number] Univers 00:00:00 00:00:00 SCAR ity of [facility] 2022-07-30 2022-07-30 Outpatient DMG DMG [id number] [facility] 00:00:00 00:00:00 [id number] [facility]ica l Group 2022-07-29 2022-07-29 Outpatient DMG DMG [id number] [facility]oted 00:00:00 00:00:00 [id number] Medica l Group 2022-07-29 2022-07-29 OFFICE STLMLC STLC [id number] Co mmon 00:00:00 00:00:00 VISIT Spirit ESTAB PT - CHI LEVEL 4 [facility] 2022-07-26 2022-07-26 Emergency X , [facility] ERT [id number] Univers 11:44:00 15:33:00 NILAY martinez of [facility] 2022-07-26 2022-07-26 Emergency [facility] 1.2.748.014 [id number] Univers 11:44:00 15:33:00 Nilay BURRELL 350.1.13.10 i ty [facility] 4.2.7.2.686 [facility] [id number] [place] 645374 Branch 2022-07-26 2022-07-26 (TEL) STLMLC STLMLC [id number] Co mmon 00:00:00 00:00:00 [facility] 2022-07-14 2022-07-14 (TEL) STLMLC STLMLC [id number] Co mmon 00:00:00 00:00:00 Spirit [facility] 2022-07-09 2022-07-09 OFFICE STLMLC STLMLC [id number] Co mmon 00:00:00 00:00:00 VISIT Spirit ESTAB PT - CHI LEVEL 4 [facility] 2022-07-06 2022-07-06 (TEL) STLMLC STLMLC [id number] Co mmon 00:00:00 00:00:00 [facility] 2022-07-05 2022-07-05 (TEL) STLMLC STLMLC [id number] Co mmon 00:00:00 00:00:00 [facility] 2022-06-30 2022-06-30 (HOSP F/U) STLMLC STLMLC [id number] Common 00:00:00 00:00:00 [facility] 2022-06-23 2022-06-23 (TEL) STLMLC STLMLC [id number] Co mmon 00:00:00 00:00:00 [facility] 2022-06-22 2022-06-22 Transition MARCELINO Puri 1.2.840.114 [id number] Univers 00:00:00 00:00:00 of Care Spike VEE 350.1.13.10 [place] [id number] [facility] 403 Branch 2022-06-16 2022-06-21 Inpatient [facility] [id number] Univers 18:03:00 12:23:00 JESUS ity of [facility] 2022-06-16 2022-06-21 [facility] [place] Patience [facility] 1.2.840.1 [id number] Univers 18:03:00 12:23:00 Encounter Pauly Wan 350.1.1 3.10 ity of [place] 4.2.7.2.686 [facility] [id number] Medical 081 Branch 2022-06-16 2022-06-16 Orders Doctor GRISEL 1.2.840.114 [id number] Univers 00:00:00 00:00:00 Only Unassigned, LEONIDES 350.1.13.10 ity [place] [facility] 4.2.7.2.686 Faustino as [id number] [facility] 009 Branch 2022-06-09 2022-06-09 OFFICE [facility] [id number] Co mmon 00:00:00 00:00:00 VISIT Spirit ESTAB PT - CHI LEVEL 4 [facility] 2022-06-09 2022-06-09 (TEL) [facility] [id number] Co mmon 00:00:00 00:00:00 Spirit - [facility] 2022-06-09 2022-06-09 SUB ANNUAL [facility] [id number] Common 00:00:00 00:00:00 MCR Spirit WELLNESS - CHI VISIT [facility] 2022-05-20 2022-05-20 (TEL) [facility] [id number] Co mmon 00:00:00 00:00:00 Spirit - [facility] 2022-05-18 2022-05-18 Telephone Oscar, [facility] [id number] [facility] St 00:00:00 00:00:00 [facility] 2022-05-18 2022-05-18 Telephone Oscar [facility] [id number] 00:00:00 00:00:00 [facility] 2022-04-14 2022-04-14 Office ISSAC Krueger [facility] [id number] 13:15:00 14:25:49 Visit [facility] 2022-02-09 2022-02-09 OFFICE STLC STLC [id number] Co mmon 00:00:00 00:00:00 VISIT Juan C LEZAMA PT - CHI LEVEL 4 [facility] 2022-01-04 2022-01-04 Outpatient ISSAC KRUEGER [facility] [id number] 09:57:22 12:00:27 [facility] 2021-12-17 2021-12-17 (TEL) STLMLC STLC [id number] Co mmon 00:00:00 00:00:00 Spirit - [facility] 2021-10-16 2021-10-16 Outpatient [facility] [id number] [facility] 15:06:23 23:59:[address] [facility] 2021-10-16 2021-10-16 [facility] [id number] [id number] Univers 15:00:00 23:59:00 Encounter Carlton A [place] 350.1.13.10 ity [facility] 4.2.7.2.686 [facility] [id number] [place] [address] Branch 2021-10-12 2021-10-12 OFFICE STLMLC STLMLC [id number] Co mmon 00:00:00 00:00:00 VISIT Juan C ESTAB PT - CHI LEVEL 4 [facility] 2021-09-22 2021-09-22 [facility] [id number] [id number] Univers 10:16:00 12:21:00 Encounter Cralton A [place] 350.1.13.10 ity [facility] 4.2.7.2.686 [facility] [id number] [place] [id number] Branch 2021-09-22 2021-09-22 Outpatient R MARIA TMORGAN [facility] CANDIS [id number] Univers 10:16:00 12:21:[address] [facility] 2021-09-22 2021-09-22 Surgery [facility] 1.2.840.114 [id number] Univers 10:50:00 12:01:00 Carlton RUANOTON 350.1.13.10 i [place] [id number] [facility] 020 Branch 2021-09-22 2021-09-22 Orders Doctor GRISEL 1.2.840.114 [id number] Univers 00:00:00 00:00:00 Only Unassigned, ELONIDES 350.1.13.[address] [facility] 4.2.7.2.686 Faustino as [id number] [place] [address] Branch 2021-09-21 2021-09-21 Outpatient R MARIA [facility] [id number] Univers 08:15:00 08:15:00 [facility] 2021-09-04 2021-09-04 (TEL) STLMLC STLMLC [id number] Co mmon 00:00:00 00:00:00 [facility] 2021-08-20 2021-08-20 Surgery [facility] 1.2.840.114 [id number] Univers 12:50:00 14:12:00 Carlton BURRELL 350.1.13.10 i [place] [id number] [facility] 020 Branch 2021-08-20 2021-08-20 Outpatient R [facility] [id number] Univers 11:19:00 12:57:[address] [facility] 2021-08-20 2021-08-20 [facility] 1.2.126.599 [id number] Univers 11:19:00 12:57:00 Encounter Carlton RUANOTON 350.1.13.10 [place] [id number] [facility] 071 Branch 2021-08-20 2021-08-20 Orders Doctor GRISEL 1.2.840.114 [id number] Univers 00:00:00 00:00:00 Only Unassigned, LEONIDES 350.1.13.[address] [facility] 4.2.7.2.686 Faustino as [id number] [place] [address] Branch 2021-08-17 2021-08-17 Outpatient Patsy ECHEVERRIA [facility] [id number] Univers 08:45:00 08:45:[address] [facility] 2021-07-13 2021-07-13 (TEL) STLMLC STLMLC [id number] Co mmon 00:00:00 00:00:00 [facility] 2021-07-06 2021-07-06 (TEL) STLMLC STLMLC [id number] Co mmon 00:00:00 00:00:00 [facility] 2021-07-02 2021-07-02 Outpatient STLMLC STLMLC [id number] Common 00:00:00 00:00:00 [facility] 2021-06-16 2021-06-16 Outpatient STLMLC STLMLC [id number] Common 00:00:00 00:00:00 [facility] 2021-06-04 2021-06-04 Outpatient STLMLC STLMLC [id number] Common 00:00:00 00:00:00 [facility] 2021-06-01 2021-06-01 Outpatient STLMLC STLMLC [id number] Common 00:00:00 00:00:00 [facility] 2021-05-27 2021-05-27 Outpatient STLMLC STLMLC [id number] Common 00:00:00 00:00:00 [facility] 2021-05-20 2021-05-20 Outpatient STLMLC STLMLC [id number] Common 00:00:00 00:00:00 [facility] 2021-05-20 2021-05-20 Outpatient STLMLC STLMLC [id number] Common 00:00:00 00:00:00 [facility] 2021-04-08 2021-04-08 Outpatient STLMLC STLMLC [id number] Common 00:00:00 00:00:00 [facility] 2021-04-08 2021-04-08 Outpatient STLMLC STLMLC [id number] Common 00:00:00 00:00:00 [facility] 2021-03-25 2021-03-25 Outpatient STLMLC STLMLC [id number] Common 00:00:00 00:00:00 [facility] 2021-02-16 2021-02-16 Outpatient STLMLC STLMLC [id number] Common 00:00:00 00:00:00 [facility] 2021-02-16 2021-02-16 Outpatient STLMLC STLMLC [id number] Common 00:00:00 00:00:00 [facility] 2020-11-26 2020-11-26 Outpatient STLMLC STLMLC [id number] Common 00:00:00 00:00:00 [facility] 2020-11-20 2020-11-20 Outpatient STLMLC STLMLC [id number] Common 00:00:00 00:00:00 [facility] 2020-11-03 2020-11-03 Outpatient STLMLC STLMLC [id number] Common 00:00:00 00:00:00 [facility] 2020-09-09 2020-09-09 Outpatient STLMLC STLMLC [id number] Common 00:00:00 00:00:00 [facility] 2020-09-08 2020-09-08 Outpatient STLMLC STLMLC [id number] Common 00:00:00 00:00:00 [facility] 2020-08-20 2020-08-20 Outpatient STLMLC STLMLC [id number] Common 00:00:00 00:00:00 [facility] 2020-08-07 2020-08-07 Outpatient STLMLC STLMLC [id number] Common 00:00:00 00:00:00 [facility] 2020-07-24 2020-07-24 Outpatient STLMLC STLMLC [id number] Common 00:00:00 00:00:00 [facility] 2020-07-21 2020-07-21 Outpatient STLMLC STLMLC [id number] Common 00:00:00 00:00:00 [facility] 2020-07-21 2020-07-21 Outpatient STLMLC STLMLC [id number] Common 00:00:00 00:00:00 [facility] 2020-07-18 2020-07-18 Outpatient STLMLC STLMLC [id number] Common 00:00:00 00:00:00 [facility] 2020-07-17 2020-07-17 Outpatient STLMLC STLMLC [id number] Common 00:00:00 00:00:00 [facility] 2020-05-15 2020-05-15 Out[facility] [id number] Common 14:15:00 14:15:[address] [facility] 2020-04-09 2020-04-09 Outpatient [facility] [id number] Common 08:55:00 08:55:[address] [facility] 2020-04-07 2020-04-07 Outpatient [facility] [id number] Common 10:34:00 10:34:[address] [facility] 2020-02-13 2020-02-13 Outpatient [facility] [id number] Common 15:00:00 15:00:[address] Family - [facility] 2020-02-13 2020-02-13 Out[facility] [id number] Common 15:00:00 15:00:[address] [facility] 2020-02-08 2020-02-08 Outpatient [facility] [id number] Common 08:47:00 08:47:[address] [facility] 2019-11-19 2019-11-19 Outpatient [facility] [id number] Common 13:00:00 13:00:[address] [facility] 2019-11-12 2019-11-12 Outpatient [facility] [id number] Common 08:28:00 08:28:[address] [facility] 2019-09-11 2019-09-11 Outpatient [facility] [id number] Common 13:30:00 13:30:00 t Bone Bone and Spiri t and Joint [facility] - [facility] 2019-08-16 2019-08-16 Outpatient [facility] [id number] Common 13:15:00 13:15:[address] [facility] 2019-07-31 2019-07-31 Outpatient [facility] [id number] Common 10:00:00 10:00:00 t Bone Bone and Spiri t and Joint [facility] - [facility] 2019-07-30 2019-07-30 Outpatient [facility] [id number] Common 14:13:00 14:13:00 t Bone Bone and Spiri t and Joint [facility] - [facility] 2019-07-27 2019-07-27 Outpatient [facility] [id number] Common 08:51:00 08:51:00 t Bone Bone and Spiri t and Joint [facility] - [facility] 2019-07-10 2019-07-10 Outpatient [facility] [id number] Common 10:00:00 10:00:00 t Bone Bone and Spiri t and Joint [facility] - [facility] 2019-07-10 2019-07-10 Outpatient [facility] [id number] Common 08:30:00 08:30:[address] [facility] 2019-07-09 2019-07-09 Outpatient [facility] [id number] Common 10:47:00 10:47:[address] [facility] 2019-06-20 2019-06-20 Outpatient [facility] [id number] Common 13:30:00 13:30:00 t Bone Bone and Spiri t and Joint [facility] - [facility] 2019-06-20 2019-06-20 Outpatient [facility] [id number] Common 08:49:00 08:49:[address] [facility] 2019-06-18 2019-06-18 Outpatient [facility] [id number] Common 08:30:00 08:30:[address] [facility] 2019-05-21 2019-05-21 Outpatient [facility] [id number] Common 13:55:00 13:55:[address] [facility] 2019-05-18 2019-05-18 Out[facility] [id number] Common 14:40:00 14:40:[address] [facility] 2019-05-17 2019-05-17 Outpatient [facility] [id number] Common 14:00:00 14:00:[address] [facility] 2019-02-08 2019-02-08 Outpatient [facility] [id number] Common 16:40:00 16:40:[address] [facility] 2019-02-06 2019-02-06 Outpatient [facility] [id number] Common 16:30:00 16:30:[address] [facility] 2019-01-30 2019-01-30 [facility] [id number] Common 11:28:00 11:28:[address] [facility] 2019-01-25 2019-01-25 [facility] [id number] Common 14:30:00 14:30:[address] [facility] 2018-12-07 2018-12-07 [facility] [id number] Common 14:30:00 14:30:[address] [facility] 2018-12-05 2018-12-05 [facility] [id number] Common 15:15:00 15:15:00 t Specialty/U Sp anitra Specialty rology - [facility] 2018-11-08 2018-11-08 [facility] [id number] Common 13:25:00 13:25:[address] [facility] 2018-11-01 2018-11-01 [facility] [id number] Common 13:15:00 13:15:[address] [facility] 2018-10-27 2018-10-27 [facility] [id number] Common 12:16:00 12:16:[address] [facility] 2018-10-26 2018-10-26 [facility] [id number] Common 15:10:00 15:10:00 t Specialty/U Sp anitra Specialty rology - [facility] 2018-10-26 2018-10-26 [facility] [id number] Common 13:45:00 13:45:00 t Specialty/U Sp anitra Specialty rology - [facility] 2018-10-09 2018-10-09 [facility] 23 [id number] Common 10:45:00 10:45:[address] [facility] 2018-09-13 2018-09-13 [facility] [id number] Common 09:40:00 09:40:[address] [facility] 2018-09-11 2018-09-11 [facility] 22 [id number] Common 14:30:00 14:30:[address] [facility] Results Test Description Test Time Test Comments Results Result Comments Source BASIC METABOLIC PANEL (NA, K, CL, CO2, GLUCOSE, BUN, 2022-06 11:51:11 CREATININE, CA) Test Item Value Reference Range Interpretation Comme nts NA (test code = 2996802321) 133 mmol/L 135-145 L K (test code = 0025149667) 3.7 mmol/L 3.5-5 CL (test code = 1911644506) 102 mmol/L 98-108 CO2 TOTAL (test code = 7458323876) 24 mmol/L 23-31 AGAP (test code = 3296540933) 2-16 BUN (test code = 4858790322) 3 mg/dL 7-23 L GLUCOSE (test code = 7934558798) 101 mg/dL 70-110 CREATININE (test code = 0.85 mg/dL 0.5-1.04 3809925881) CALCIUM (test code = 3511588098) 8.7 mg/dL 8.6-10.6 eGFR (test code = 7760562765) mL/min/1.73m2 COLOTN (test code = COLTON) Association of Glomerular [...] tests). Lab Interpretation (test code = Abnormal 48618-2) [facility]28[facility] (ALB,T.PRO,BILI T,BU/BC,ALT,AST,ALK PHOS)2022-06-21 11:50:31 Test Item Value Reference Range Interpretation Comments TOTAL BILI (test code = 5113708887) 0.2 mg/dL 0.1-1.1 BILI UNCON (test code = 9521036787) 0.1 mg/dL 0.1-1.1 BILI CONJ (test code = 9805879885) 0.0 mg/dL 0-0.3 T PROTEIN (test code = 0527093552) 6.0 g/dL 6.3-8.2 L ALBUMIN (test code = 7379484835) 3.5 g/dL 3.5-5 ALK PHOS (test code = 7548349543) 583 U/L 34-122 H ALTv (test code = 1742-6) 139 U/L 5-35 H AST(SGOT) (test code = 0274953044) 55 U/L 13-40 H Lab Interpretation (test code = Abnormal 25942-0) [facility] (NA, K, CL, CO2, GLUCOSE, BUN, CREATININE, CA)2022-06-20 10:31:12 Test Item Value Reference Range Interpretation Comments NA (test code = 135 mmol/L 135-145 4595638291) K (test code = 2.9 mmol/L 3.5-5 LL 4794077311) CL (test code = 107 mmol/L 98-108 7163540289) CO2 TOTAL (test code = 22 mmol/L 23-31 L 1350508610) AGAP (test code = 2-16 9661501981) BUN (test code = 7-23 L 4141811282) GLUCOSE (test code = 103 mg/dL 70-110 8659259525) CREATININE (test code = 0.73 mg/dL 0.5-1.04 2997960247) CALCIUM (test code = 8.4 mg/dL 8.6-10.6 L 5147806692) eGFR (test code = mL/min/1.73m2 1394988187) COLTON (test code = COLTON) Association of [...] tests). Lab Interpretation Abnormal (test code = 77238-9) [facility] WITH [id number] 09:21:48 Test Item Value Reference Range Interpretation Comments WBC (test code = See_Comment [Automated 4091-2) message] The sy stem which generated this result transmitted reference range : 4.30 - 11.10 10*3/?L. The reference range was not used to interpret this result as normal/abnormal . RBC (test code = See_Comment L [Automated 213-8) message] The sy stem which generated this [...] RDW-SD (test code = 40.5 fL 39-49.9 70979-9) RDW-CV (test code = 12.6 % 12-15.5 788-0) PLT (test code = See_Comment H [Automated 777-3) message] The sy stem which generated this result transmitted reference range : 166 - 358 10*3/ ?L. The reference r susana was not used to interpret this result as normal/abnormal . MPV (test code = 9.0 fL 9.5-12.9 L 65893-1) NRBC/100 WBC (test See_Comment [Automat ed code = 7350404126) message] The system which generated this result transmitted reference range : 0.0 - 10.0 /100 WBCs. The refer ence range was not u sed to interpret th is result as normal/abnormal . NRBC x10^3 (test code See_Comment [Auto mated = 2416072273) message] The s ystem which generated this result transmitted reference range : 10*3/?L. The reference range was not used to interpret this result as normal/abnormal . GRAN MAT (NEUT) % 67.8 % (test code = 770-8) IMM GRAN % (test code 1.20 % = 5514109448) LYMPH % (test code = 17.9 % 736-9) MONO % (test code = 11.7 % 5905-5) EOS % (test code = 1.2 % 713-8) BASO % (test code = 0.2 % 706-2) GRAN MAT x10^3(ANC) 4.02 10*3/uL 1.88-7.09 (test code = 5206916615) IMM GRAN x10^3 (test 0.07 10*3/uL 0-0.06 H code = 0612951510) LYMPH x10^3 (test code 1.06 10*3/uL 1.32-3.29 L = 731-0) MONO x10^3 (test code 0.69 10*3/uL 0.33-0.92 = 742-7) EOS x10^3 (test code = 0.07 10*3/uL 0.03-0.39 711-2) BASO x10^3 (test code 0.01-0.07 = 704-7) Lab Interpretation Abnormal (test code = 98092-4) [facility]AM[facility], [id number] 21:07:40 Test Item Value Reference Range Interpretation Comments LAMOTRIGINE (test 3.3 ug/mL 3.0-15.0 INTERPRETI VE code = 6948-4) INFORMATION: ?Lamotrigine Th erapeutic Range: ?3.0-15. 0 ug/mL ?Toxic: ?Greater than or equal t o 20 ug/mL Pharmacok inetics varies widely, particularly wi th co-medications and/or compromised ascencion al function. ?Adve rse effects may inc lude dizziness, somn olence, nausea and vomiting.Perfor med By: [facility] [address] [place], [place] [address]D aboratory Director: Joe Martinez MD, PhD [facility] PAN[facility] (23236) (ALB,T.PRO,BILI T,BU/BC,ALT,AST,ALK PHOS)2022-06-18 11:44:08 Test Item Value Reference Range Interpretation Comments TOTAL BILI (test code = 5452170009) 0.4 mg/dL 0.1-1.1 BILI UNCON (test code = 2566051675) 0.1 mg/dL 0.1-1.1 BILI CONJ (test code = 0512083277) 0.0 mg/dL 0-0.3 T PROTEIN (test code = 1320043469) 6.0 g/dL 6.3-8.2 L ALBUMIN (test code = 0133049663) 3.4 g/dL 3.5-5 L ALK PHOS (test code = 8347453873) 608 U/L 34-122 H ALTv (test code = 1742-6) 373 U/L 5-35 H AST(SGOT) (test code = 1262284351) 357 U/L 13-40 H Lab Interpretation (test code = Abnormal 02055-7) [facility]AT[facility] B SURFACE [id number] 20:52:12 Test Item Value Reference Range Interpretation Comments HBsAB (test code = Indeterminate 8088001770) HBsAb mIU/mL Semi-Quantitative (test code = 0978875871) COLTON (test code = Unable to determine if COLTON) antibody to Hepatitis B Surface Antigen is present at levels consistent with immunity. ?Patient's immune status should be assessed with other clinical information and/or retesting in 4-6 weeks as clinically indicated. ?If any questions, please contact Clinical Chemistry Director electronics worker at .Unable to determine if antibody to Hepatitis B Surface Antigen is present at levels consistent with immunity. ?Patient's immune status should be assessed with other clinical information and/or retesting in 4-6 weeks as clinically indicated. ?If any questions, please contact Clinical Chemistry Director electronics worker at .Unable to determine if antibody to Hepatitis B Surface Antigen is present at levels consistent with immunity. ?Patient's immune status should be assessed with other clinical information and/or retesting in 4-6 weeks as clinically indicated. ?If any questions, please contact Clinical Chemistry Director electronics worker at .Interpretati on: ?Hepatitis B Surface Antibody ? Negative - Patient is considered to be not immune to infection with HBV. ? ? Positive - Anti-HBs detected at greater than or equal to 12 mIU/mL. ?Patient is considered to be immune to infection with HBV. ? [facility] ANTIBODY (IGM & IGG)2022-06-17 19:04:09 Test Item Value Reference Range Interpretation Comments HBC (test code = 1053190352) Negative HBC Semi-Quantitative (test code = 1361900077) [facility]CV [id number] 19:04:09 Test Item Value Reference Range Interpretation Comments HCV Ab (test code = 99131-1) Negative HCV Semi-Quantitative (test code = 97994-7) [facility] B SURFACE [id number] 18:45:46 Test Item Value Reference Range Interpretation Comments HBsAg Semi-Quantitative (test code = Negative Negative 5195-3) [facility] HeightsPROCALCITONIN2022-09-15 16:01:08 Test Item Value Reference Interpretation Comments Range Procalcitonin (test 0.31 ng/mL See_Comment H [Automa carlton code = 6123190199) message] The system which generated this result [...] lung abscess/empyema. For further information please refer to:[email or web address] Lab Interpretation Abnormal (test code = 67165-0) [facility]COMP. METABOLIC PANEL (37287)2022-06-17 13:10:04 Test Item Value Reference Range Interpretation Comments NA (test code = 141 mmol/L 135-145 1497345456) K (test code = 3.5 mmol/L 3.5-5 8507247333) CL (test code = 111 mmol/L 98-108 H 7994260898) CO2 TOTAL (test code = 24 mmol/L 23-31 0314745346) AGAP (test code = 2-16 7584118793) BUN (test code = 8 mg/dL 7-23 5600487199) GLUCOSE (test code = 97 mg/dL 70-110 0327487167) CREATININE (test code = 0.89 mg/dL 0.5-1.04 4483015343) TOTAL BILI (test code = 1.1 mg/dL 0.1-1.7 1631181699) CALCIUM (test code = 8.2 mg/dL 8.6-10.6 L 0628616254) T PROTEIN (test code = 5.8 g/dL 6.3-8.2 L 0679715536) ALBUMIN (test code = 3.2 g/dL 3.5-5 L 7984372307) ALK PHOS (test code = 766 U/L 34-122 H 2890663281) ALTv (test code = 634 U/L 5-35 H 1742-6) AST(SGOT) (test code = 1987 U/L 13-40 H 3402878029) eGFR (test code = mL/min/1.73m2 7003032512) COLTON (test code = COLTON) Association of [...] tests). Lab Interpretation Abnormal (test code = 01909-9) [facility] HeightsTHYROID STIMULATING [id number] 12:33:26 Test Item Value Reference Range Interpretation Comments TSH (test code = See_Comment [Automated message] 9693338693) The system Baileyu generated this result transmitted ref erence range: 0.45 - 4 .70 mIU/L. The refe rence range was not u sed to interpret this result as normal/abnor mal. Lab Interpretation (test Normal code = 73422-3) [facility] HeightsTROPONIN [id number] 12:15:04 Test Item Value Reference Interpretation Comments Range TROPONIN I (test 0.006 ng/mL See_Comment [Automated code = 9927441744) message] The system which generated this result [...] biotin. Lab Interpretation Normal (test code = 62434-3) [facility] HeightsN-TERMINAL [id number] 12:11:41 Test Item Value Reference Range Interpretation Comments NT-proBNP (test code 176 pg/mL See_Comment H [Autom ated = 0473913433) message] The system which generated this result transmitted reference range : <=125. The reference range was not used to interpret this result as normal/abnormal . COLTON (test code = COLTON) Biotin has been reported to cause a negative bias, interpret results relative to patient's use of biotin. Lab Interpretation Abnormal (test code = 01897-6) [facility] HeightsLIPID PANEL (21041)(TOTAL CHOLESTEROL, TRIGLYCERIDES, HDL)2022-06-17 12:03:42 Test Item Value Reference Range Interpretation Comments CHOL (test code = 152 mg/dL 120-200 1386480934) HDL (test code = 40 mg/dL See_Comment L [Automated message] 2664452577) The system [facility] generated this result transmit carlton reference range : >=50. The refer ence range was not u sed to interpret th is result as normal/abnormal . HDLC RATIO (test code = See_Comment [Au tomated message] 1772488911) The system Baileyu generated this result transmit carlton reference range : <=4.5. The refe rence range was not u sed to interpret th is result as normal/abnormal . TRIG (test code = 102 mg/dL 30-170 7044160081) LDL CHOL (test code = 92 mg/dL See_Comment [Auto mated message] 54427-2) The system Baileyu generated this result transmit carlton reference range : <=160. The refe rence range was not u sed to interpret th is result as normal/abnormal . VLDL (test code = 20 mg/dL 5-60 6019177563) Lab Interpretation (test Abnormal code = 83990-9) [facility]UM2022-09-15 12:03:42 Test Item Value Reference Range Interpretation Comments MAGNESIUM (test code = 1410541151) 2.0 mg/dL 1.7-2.4 Lab Interpretation (test code = Normal 86291-6) [facility] HeightsPHOSPHORUS2022-09-15 12:03:21 Test Item Value Reference Range Interpretation Comments PHOSPHORUS (test code = 1768360390) 3.7 mg/dL 2.5-5 Lab Interpretation (test code = Normal 53182-4) [facility] HeightsProthrombin Time / [id number] 10:10:50 Test Item Value Reference Range Interpretation Comments PROTIME PATIENT (test See_Comment [Auto mated message] code = 5964-2) The system [employer] generated this result transmitted ref erence range: 12.0 - 1 4.7 Seconds. The re ference range was not u sed to interpret this result as normal/abnor mal. INR (test code = 6301-6) Nor mal INR <1.1; Warfarin Therap eutic range 2.0 to 3. 0 or 2.5 to 3.5, dep ending upon the indica tions. Lab Interpretation (test Normal code = 52564-7) [facility] HeightsCB WITH [id number] 09:47:03 Test Item Value Reference Range Interpretation [...] RDW-SD (test code = 43.2 fL 39-49.9 36923-5) RDW-CV (test code = 12.6 % 12-15.5 788-0) PLT (test code = See_Comment [Automated 777-3) message] The sy stem which generated this result transmitted reference range : 166 - 358 10*3/ ?L. The reference r susana was not used to interpret this result as normal/abnormal . MPV (test code = 9.0 fL 9.5-12.9 L 16299-5) NRBC/100 WBC (test See_Comment [Automat ed code = 7635718613) message] The system which generated this result transmitted reference range : 0.0 - 10.0 /100 WBCs. The refer ence range was not u sed to interpret th is result as normal/abnormal . NRBC x10^3 (test code See_Comment [Auto mated = 6399796245) message] The s ystem which generated this result transmitted reference range : 10*3/?L. The reference range was not used to interpret this result as normal/abnormal . GRAN MAT (NEUT) % 70.7 % (test code = 770-8) IMM GRAN % (test code 0.50 % = 5642187597) LYMPH % (test code = 15.3 % 736-9) MONO % (test code = 12.0 % 5905-5) EOS % (test code = 1.3 % 713-8) BASO % (test code = 0.2 % 706-2) GRAN MAT x10^3(ANC) 5.85 10*3/uL 1.88-7.09 (test code = 8872822966) IMM GRAN x10^3 (test 0.04 10*3/uL 0-0.06 code = 9247809001) LYMPH x10^3 (test code 1.27 10*3/uL 1.32-3.29 L = 731-0) MONO x10^3 (test code 0.99 10*3/uL 0.33-0.92 H = 742-7) EOS x10^3 (test code = 0.11 10*3/uL 0.03-0.39 711-2) BASO x10^3 (test code 0.01-0.07 = 704-7) Lab Interpretation Abnormal (test code = 78379-3) [facility] HeightsGLYCOSYLATED HEMOGLOBIN (A1C)2022-06-17 06:45:49 Test Item Value Reference Range Interpretation Comments HGB A1C (test code = 5.4 % 4-5.7 4548-4) COLTON (test code = COLTON) Reference RangesNormal: <5.7%Prediabetes: 5.7 - 6.4%Diabetes: > 6.5% Lab Interpretation (test Normal code = 30476-2) [facility]TROPONIN [id number] 00:41:17 Test Item Value Reference Interpretation Comments Range TROPONIN I (test 0.004 ng/mL See_Comment [Automated code = 5091971495) message] The system which generated this result [...] biotin. Lab Interpretation Normal (test code = 10807-2) [facility] WITH [id number] 00:35:10 Test Item Value Reference Range Interpretation Comments WBC (test code = See_Comment H [Automated 9290-2) message] The sy stem which generated this [...] RDW-SD (test code = 42.3 fL 39-49.9 21515-0) RDW-CV (test code = 12.6 % 12-15.5 788-0) PLT (test code = See_Comment H [Automated 777-3) message] The sy stem which generated this result transmitted reference range : 166 - 358 10*3/ ?L. The reference r susana was not used to interpret this result as normal/abnormal . MPV (test code = 8.7 fL 9.5-12.9 L 21771-3) NRBC/100 WBC (test See_Comment [Automat ed code = 1159874149) message] The system which generated this result transmitted reference range : 0.0 - 10.0 /100 WBCs. The refer ence range was not u sed to interpret th is result as normal/abnormal . NRBC x10^3 (test code See_Comment [Auto mated = 2998014487) message] The s ystem which generated this result transmitted reference range : 10*3/?L. The reference range was not used to interpret this result as normal/abnormal . GRAN MAT (NEUT) % 73.1 % (test code = 770-8) IMM GRAN % (test code 0.40 % = 7855208533) LYMPH % (test code = 13.3 % 736-9) MONO % (test code = 11.8 % 5905-5) EOS % (test code = 1.1 % 713-8) BASO % (test code = 0.3 % 706-2) GRAN MAT x10^3(ANC) 8.51 10*3/uL 1.88-7.09 H (test code = 1700224546) IMM GRAN x10^3 (test 0.05 10*3/uL 0-0.06 code = 0822457172) LYMPH x10^3 (test code 1.55 10*3/uL 1.32-3.29 = 731-0) MONO x10^3 (test code 1.37 10*3/uL 0.33-0.92 H = 742-7) EOS x10^3 (test code = 0.13 10*3/uL 0.03-0.39 711-2) BASO x10^3 (test code 0.03 10*3/uL 0.01-0.07 = 704-7) Lab Interpretation Abnormal (test code = 06618-0) [facility]. METABOLIC PANEL (27194)2022-06-17 00:30:09 Test Item Value Reference Range Interpretation Comments NA (test code = 135 mmol/L 135-145 7849285763) K (test code = 4.4 mmol/L 3.5-5 9220212726) CL (test code = 102 mmol/L 98-108 5431710247) CO2 TOTAL (test code = 22 mmol/L 23-31 L 9872414388) AGAP (test code = 2-16 3393733367) BUN (test code = 9 mg/dL 7-23 5308603862) GLUCOSE (test code = 113 mg/dL 70-110 H 4689143925) CREATININE (test code = 0.89 mg/dL 0.5-1.04 0964597580) TOTAL BILI (test code = 0.7 mg/dL 0.1-1.5 6047137799) CALCIUM (test code = 9.2 mg/dL 8.6-10.6 1495052578) T PROTEIN (test code = 7.4 g/dL 6.3-8.2 0728836272) ALBUMIN (test code = 4.4 g/dL 3.5-5 6863250409) ALK PHOS (test code = 158 U/L 34-122 H 9999199153) ALTv (test code = 20 U/L 5-35 1742-6) AST(SGOT) (test code = 32 U/L 13-40 8352140672) eGFR (test code = mL/min/1.73m2 6042874551) COLTON (test code = COLTON) Association of [...] tests). Lab Interpretation Abnormal (test code = 87304-2) [facility]2022-09-15 00:30:09 Test Item Value Reference Range Interpretation Comments MAGNESIUM (test code = 6199848349) 2.0 mg/dL 1.7-2.4 Lab Interpretation (test code = Normal 23457-3) [facility]2022-[facility] 00:29:54 Test Item Value Reference Range Interpretation Comments LIPASE (test code = 3724133091) 102 U/L 0-220 Lab Interpretation (test code = Normal 44904-7) [facility] HeightsPOCT [id number] 22:24:44 Test Item Value Reference Range Interpretation Comments POCT Creatinine (test code = 0.7 mg/dL 0.5-1.7 7727567252) Lab Interpretation (test code = Normal 84661-2) [facility]2019-10-01 06:29:00 Test Item Value Reference Range Interpretation Comments LIPASE (BEAKER) (test code = 749) 48 U/L 8-78 COMPREHENSIVE METABOLIC [id number] 06:29:00 Test Item Value Reference Range Interpretation [...] PATIEN TS. CBC W/PLT COUNT & AUTO [id number] 05:57:00 Test Item Value Reference Range Interpretation [...] 413) RAD, ABDOMEN SERIES W/ UPRIGHT PA [id number] 13:35:00Reason for exam:- >Postoperative distentionShould this be [...] [facility] Verified Date/Time: 07/02/2019 13:35:05 Reading Location:[facility] Radiology Reading Room [id number] 06:54:00 Test Item Value Reference Range Interpretation Comments LIPASE (BEAKER) (test code = 749) 56 U/L 8-78 COMPREHENSIVE METABOLIC [id number] 06:54:00 Test Item Value Reference Range Interpretation [...] PATIEN TS. CBC W/PLT COUNT & AUTO [id number] 06:31:00 Test Item Value Reference Range Interpretation [...] = 2801) CBC W/PLT COUNT & AUTO [id number] 06:59:00 Test Item Value Reference Range Interpretation [...] 0-1 PERCENT (BEAKER) (test code = 2801) [id number] 06:51:00 Test Item Value Reference Range Interpretation Comments LIPASE (BEAKER) (test code = 749) 53 U/L 8-78 COMPREHENSIVE METABOLIC [id number] 06:51:00 Test Item Value Reference Range Interpretation [...] PATIEN TS. CBC W/PLT COUNT & AUTO [id number] 06:20:00 Test Item Value Reference Range Interpretation [...] GRANULOCYTES-RELATIVE PERCENT (BEAKER) (test code = 2801) [id number] 05:44:00 Test Item Value Reference Range Interpretation Comments LIPASE (BEAKER) (test code = 749) 52 U/L 8-78 COMPREHENSIVE METABOLIC [id number] 05:44:00 Test Item Value Reference Range Interpretation [...] S NOT APPLICABLE FOR DIALYSIS PATIEN TS. [id number] 05:21:00 Test Item Value Reference Range Interpretation Comments LIPASE (BEAKER) (test code = 749) 72 U/L 8-78 COMPREHENSIVE METABOLIC [id number] 05:21:00 Test Item Value Reference Range Interpretation [...] PATIEN TS. CBC W/PLT COUNT & AUTO [id number] 05:14:00 Test Item Value Reference Range Interpretation [...] 0-1 PERCENT (BEAKER) (test code = 2801) [id number] 05:17:00 Test Item Value Reference Range Interpretation Comments LIPASE (BEAKER) (test code = 749) 55 U/L 8-78 COMPREHENSIVE METABOLIC [id number] 05:17:00 Test Item Value Reference Range Interpretation [...] PATIEN TS. CBC W/PLT COUNT & AUTO [id number] 04:59:00 Test Item Value Reference Range Interpretation [...] WBC 0-0 (BEAKER) (test code = 413) [id number] 07:03:00 Test Item Value Reference Range Interpretation Comments LIPASE (BEAKER) (test code = 749) 40 U/L 8-78 COMPREHENSIVE METABOLIC [id number] 07:03:00 Test Item Value Reference Range Interpretation [...] PATIEN TS. CBC W/PLT COUNT & AUTO [id number] 06:03:00 Test Item Value Reference Range Interpretation [...] 0-1 PERCENT (BEAKER) (test code = 2801) [id number] 07:19:00 Test Item Value Reference Range Interpretation Comments LIPASE (BEAKER) (test code = 749) 37 U/L 8-78 COMPREHENSIVE METABOLIC [id number] 07:19:00 Test Item Value Reference Range Interpretation [...] PATIEN TS. CBC W/PLT COUNT & AUTO [id number] 05:30:00 Test Item Value Reference Range Interpretation [...] (BEAKER) (test code = 2801) BASIC METABOLIC [id number] 20:44:00 Test Item Value Reference Range Interpretation [...] 0-0 (BEAKER) (test code = 413) PROTHROMBIN TIME/[id number] 15:49:00 Test Item Value Reference Range Interpretation [...] mechanical heart valves.RAD, CHEST, 1 VIEW, NON [id number] 15:13:00Reason for exam:->preopShould this be performed at the bedside?->YesFINAL REPORT INDICATION: preop COMPARISON: None TECHNIQUE: Single frontal view of the chest. FINDINGS: Lungs and pleura: Clear lungs. No effusion.Heart and mediastinum: Normal heart size. Unremarkable mediastinal contours.Osseous structures: No acute abnormality.Other: None. IMPRESSION: No acute intrathoracic abnormality. Signed: Charmaine Soliz Verified Date/Time: 06/25/2019 15:13:30 Reading Location: [facility] Radiology Reading Room [id number] 11:37:00 Test Item Value Reference Range Interpretation Comments LIPASE (BEAKER) (test code = 749) 168 U/L 8-78 H COMPREHENSIVE METABOLIC [id number] 11:37:00 Test Item Value Reference Range Interpretation [...] PATIEN TS. CBC W/PLT COUNT & AUTO [id number] 11:16:00 Test Item Value Reference Range Interpretation [...] % 0-1 PERCENT (BEAKER) (test code = 2802)"
[2023-05-10] MEDS ORDERED: NA CHLORIDE 0.9% 500 ML ONE (20:33)
[2023-05-10 20:53] LABS: Absolute Lymphocytes (CBC) 1.3 K/uL (0.7-4.9); Lymphocytes % 24.9 % (15.3-44.8); MPV 7.9 fL (7.6-11.3); Platelets 353 thou/uL (152-406); RBC Red Blood Cell Count 3.59 M/uL (3.86-4.86)
[2023-05-10 21:09] LABS: Albumin 2.5 g/dL (3.4-5.0); Bilirubin Total 0.3 mg/dL (0.2-1.0); Potassium 3.8 mEq/L (3.5-5.1); Protein, Total 5.1 g/dL (6.4-8.2)
--- NOTE | 2023-05-10 22:24 | RAD REPORT ---
EXAM DESCRIPTION: CT - [id number] - 05/10/2023 9:50 pm CLINICAL HISTORY: FALL LOC COMPARISON: Head C Spine Mpr Wo Con dated 04/08/2023 TECHNIQUE: Axial thin cut noncontrast CT images of the head were obtained. Axial thin cut noncontrast CT images of the cervical spine were obtained. Multiplanar reformatted images were generated and reviewed. All CT scans are performed using dose optimization technique as appropriate and may include automated exposure control or mA/KV adjustment according to patient size. FINDINGS: CT HEAD WITHOUT CONTRAST: No acute hemorrhage, hydrocephalus or extra-axial collection is identified.No areas of brain edema or midline shift. The paranasal sinuses and mastoids are clear.The calvarium is intact. CT CERVICAL SPINE WITHOUT CONTRAST: No fracture or subluxation.Straightening of normal cervical lordosis which may be positional or secon mario to muscle spasm.No prevertebral soft tissues swelling is identified. IMPRESSION: No acute traumatic intracranial or cervical spine findings.
[2023-05-10] MEDS ORDERED: LIDOCAINE 1% 20 ML MDV ONE (22:58)
--- NOTE | 2023-05-10 23:04 | EDPHYS ---
Physician Documentation [facility] Name: Janice Bosch Age: 57 yrs Sex: Female : 1965 Arrival Date: 05/10/2023 Time: 19:42 Bed 4 Private MD: ED Physician Emeterio Mojica HPI: 05/10 20:48 This 57 yrs old Female presents to ER via Wheelchair with complaints of Head Injury kdr With LOC-Adult. 21:26 Patient was getting up out of bed and using her walker when it pushed forward and she kdr fell backwards striking the back of her head on the side board of the bed. She states she had a brief perhaps 30 seconds loss of consciousness. She denies any other injuries. She had earlier in the year broken some ribs on the left side though seem to be somewhat aggravated but otherwise she had no other focal injury. There does appear to be a small laceration on the occiput of her head. Onset: The symptoms/episode began/occurred suddenly, just prior to arrival. Severity of symptoms: At their worst the symptoms were mild in the emergency department the symptoms are unchanged. Severity of symptoms: At their worst the symptoms were incapacitating in the emergency department the symptoms. The patient has experienced similar episodes in the past, Patient has been falling on a recurrent basis. The patient has not recently seen a physician. Historical: - Allergies: 20:06 Reglan; nj1 20:06 Requip; nj1 - PMHx: 20:06 Bipolar disorder; bowel obstruction; Fibromyalgia; Hypertension; ibs; Migraines; nj1 Chronic back pain; - PSHx: 20:06 Appendectomy; Cholecystectomy; Gastric Bypass; section; hysterectomy; nj1 - Immunization history:: Client reports receiving the 2nd dose of the Covid vaccine. - Social history:: Smoking status: Patient denies any tobacco usage or history of. ROS: 21:26 Constitutional: Negative for fever, chills, and weight loss, Eyes: Negative for injury, kdr pain, redness, and discharge, Neck: Negative for injury, pain, and swelling, Cardiovascular: Negative for chest pain, palpitations, and edema, Respiratory: Negative for shortness of breath, cough, wheezing, and pleuritic chest pain, Abdomen/GI: Negative for abdominal pain, nausea, vomiting, diarrhea, and constipation, Back: Negative for injury and pain, : Negative for injury, bleeding, discharge, and swelling, MS/Extremity: Negative for injury and deformity, Skin: Negative for injury, rash, and discoloration, Neuro: Negative for headache, weakness, numbness, tingling, and seizure activity. Psych: Negative for depression, anxiety, suicide ideation, homicidal ideation, and hallucinations, Allergy/Immunology: Negative for hives, rash, and allergies, Endocrine: Negative for neck swelling, polydipsia, polyuria, polyphagia, and marked weight changes, Hematologic/Lymphatic: Negative for swollen nodes, abnormal bleeding, and unusual bruising. 21:26 Skin: Positive for laceration(s), of the scalp. Exam: 21:26 Constitutional: This is a well developed, well nourished patient who is awake, alert, kdr and in no acute distress. Eyes: Pupils equal round and reactive to light, extra-ocular motions intact. Lids and lashes normal. Conjunctiva and sclera are non-icteric and not injected. Cornea within normal limits. Periorbital areas with no swelling, redness, or edema. Neck: Trachea midline, no thyromegaly or masses palpated, and no cervical lymphadenopathy. Supple, full range of motion without nuchal rigidity, or vertebral point tenderness. No Meningismus. Chest/axilla: Normal chest wall appearance and motion. Nontender with no deformity. No lesions are appreciated. Cardiovascular: Regular rate and rhythm with a normal S1 and S2. No gallops, murmurs, or rubs. Normal PMI, no JVD. No pulse deficits. Respiratory: Lungs have equal breath sounds bilaterally, clear to auscultation and percussion. No rales, rhonchi or wheezes noted. No increased work of breathing, no retractions or nasal flaring. 21:26 Head/face: Noted is abrasion(s), contusion, a laceration(s), that is jagged. Vital Signs: 19:48 BP 98 / 67; Pulse 75; Resp 18; Temp 98.1(O); Pulse Ox 98% on R/A; Weight 56.7 kg; nj1 Height 5 ft. 2 in. ; 20:15 BP 87 / 86; Pulse 68; Resp 15 S; Pulse Ox 99% on R/A; lg3 20:48 BP 100 / 69; Pulse 68; Resp 16 S; Pulse Ox 98% on R/A; lg3 22:32 BP 116 / 81; Pulse 70; Resp 15 S; Pulse Ox 100% on R/A; lg3 23:19 BP 113 / 89; Pulse 69; Resp 16 S; Pulse Ox 99% on R/A; lg3 19:48 Body Mass Index 22.86 (56.70 kg, 157.48 cm) nj1 Laceration: 23:00 Wound Repair of 3cm ( 1.2in ) subcutaneous laceration to right parietal area. sp4 Irregularly shaped.. C-shaped laceration all the way to the skull. Distal neuro/vascular/tendon intact. Anesthesia: Wound infiltrated with 20 mls of 1% lidocaine. Wound prep: Moderate cleansing by me, Copious irrigation. Skin closed with 6 4-0 Silk using interrupted sutures and sterile technique. Dressed with left to air . Patient tolerated well. MDM: 21:26 Data reviewed: vital signs, nurses notes, lab test result(s), radiologic studies. kdr 21:40 Patient medically screened. sp4 23:02 Differential Diagnosis altered mental status, sepsis, flu, Fall at home. Data reviewed: sp4 radiologic studies, CT scan. Consideration of Admission/Observation Escalation of care including admission/observation considered. ED course: Patient states she has frequent history of falls, along with chronic back pain, she is on daily hydrocodone , also history of bipolar disorder and bowel obstruction fibromyalgia and hypertension. CT head is negative, CT C-spine is negative, scalp laceration was repaired. Patient is stable for discharge home at this time. Advised standard wound care to the scalp laceration. Silk sutures should fall out by themselves, suture removal is not necessary. 05/10 20:38 Order name: CBC with Diff; Complete Time: 21:12 lg3 05/10 20:38 Order name: CMP; Complete Time: 21:12 lg3 05/10 21:11 Order name: CT Head C Spine; Complete Time: 22:26 kdr 05/10 22:33 Order name: Dressing - Wound; Complete Time: 22:46 sp4 05/10 22:33 Order name: Gloves, Sterile; Complete Time: 22:46 sp4 05/10 22:33 Order name: Setup Suture Tray; Complete Time: 22:46 sp4 Administered Medications: 20:38 Drug: NS 0.9% IV 500 ml Route: IV; Rate: bolus; Site: right antecubital; lg3 22:46 Follow up: IV Status: Completed infusion; IV Intake: 500ml jb4 23:19 Drug: Lidocaine Infiltration (1 %) 20 ml Volume: 20 ml; Route: Infiltration; Site: lg3 affected area; 23:19 Follow up: Response: No adverse reaction lg3 Disposition Summary: 05/10/23 23:03 Discharge Ordered Location: Home sp4 Problem: new sp4 Symptoms: have improved sp4 Condition: Stable sp4 Diagnosis - Laceration without foreign body of scalp sp4 - Acute fall at home, posterior scalp laceration, head injury, closed head injury sp4 Followup: sp4 - With: Private Physician - When: 7 - 10 days - Reason: Recheck today's complaints Discharge Instructions: - Discharge Summary Sheet sp4 - Head Injury, Adult, [id number] sp4 Forms: - Patient Portal Instructions sp4 Signatures: Dispatcher [employer] Kristopher Resendez MD MD kdr Gibson, Lacie, RN RN lg3 Emeterio Mojica MD MD sp4 Ani Powell RN RN nj1 Josué Collier RN jb4
--- NOTE | 2023-05-10 23:04 | ER ---
Nurse's Notes [facility] Name: Janice Bosch Age: 57 yrs Sex: Female : 1965 Arrival Date: 05/10/2023 Time: 19:42 Bed 4 Private MD: Diagnosis: Laceration without foreign body of scalp;Acute fall at home, posterior scalp laceration, head injury, closed head injury Presentation: 05/10 19:48 Chief complaint: Patient states: Was using walker but walker took off faster than nj1 patient making her fall. States she lost consciousness after hitting her head, denies blood thinners use. Has a lac on the back of the head. 19:48 Coronavirus screen: Vaccine status: Patient reports receiving the 2nd dose of the covid nj1 vaccine. Ebola Screen: Patient denies travel to an Ebola-affected area in the 21 days before illness onset. Initial Sepsis Screen: Does the patient meet any 2 criteria? No. Patient's initial sepsis screen is negative. Does the patient have a suspected source of infection? No. Patient's initial sepsis screen is negative. Risk Assessment: Do you want to hurt yourself or someone else? Patient reports no desire to harm self or others. Onset of symptoms was May 10, 2023. 19:48 Method Of Arrival: Wheelchair [facility] 19:48 Acuity: BONITA 3 nj1 Historical: - Allergies: 20:06 Reglan; nj1 20:06 Requip; nj1 - PMHx: 20:06 Bipolar disorder; bowel obstruction; Fibromyalgia; Hypertension; ibs; Migraines; nj1 Chronic back pain; - PSHx: 20:06 Appendectomy; Cholecystectomy; Gastric Bypass; section; hysterectomy; nj1 - Immunization history:: Client reports receiving the 2nd dose of the Covid vaccine. - Social history:: Smoking status: Patient denies any tobacco usage or history of. Screenin:[address] [facility] ED Fall Risk Assessment (Adult) History of falling in the last 3 months, lg3 including since admission Yes- fall prone (multiple falls) (3 pts) Confusion or Disorientation No (0 pts) Intoxicated or Sedated No (0 pts) Impaired Gait Yes (1 pt) Mobility Assist Device Used Yes (1 pt) Altered Elimination No (0 pt) Score/Fall Risk Level 3 or more points = High Risk Oriented to surroundings, Maintained a safe environment, Educated pt \T\ family on fall prevention, incl call for assistance when getting out of bed, Provided non-skid footwear, Utilized family, sitter, or virtual supervisor pipeline as indicated. Abuse screen: Denies threats or abuse. Denies injuries from another. Nutritional screening: No deficits noted. Tuberculosis screening: No symptoms or risk factors identified. Assessment: 20:15 General: Appears in no apparent distress. comfortable, Behavior is calm, cooperative, lg3 flat. Pain: Complains of pain in scalp. Neuro: Amgana Agitation-Sedation Scale (RASS): -1 Drowsy Level of Consciousness is awake, alert, obeys commands, Oriented to person, place, time, situation. Cardiovascular: No deficits noted. Denies chest pain, shortness of breath, Capillary refill < 3 seconds Clubbing of nail beds is absent JVD is absent Patient's skin is warm and dry. Respiratory: No deficits noted. Airway is patent Trachea midline Respiratory effort is even, unlabored, Respiratory pattern is regular, symmetrical. GI: No deficits noted. No signs and/or symptoms were reported involving the gastrointestinal system. Abdomen is flat, non-distended. : No deficits noted. No signs and/or symptoms were reported regarding the genitourinary system. EENT: No deficits noted. No signs and/or symptoms were reported regarding the EENT system. Derm: Skin is intact, is thin, Skin is dry, Skin is pale, Skin temperature is cool Wound noted scalp Wound is linear laceration. Musculoskeletal: Circulation, motion, and sensation intact. Range of motion: intact in all extremities, Reports generalized weakness. 20:48 Reassessment: Patient appears in no apparent distress at this time. No changes from lg3 previously documented assessment. Patient and/or family updated on plan of care and expected duration. Pain level reassessed. Patient is alert, oriented x 3, equal unlabored respirations, skin warm/dry/pink. 22:32 Reassessment: Patient appears in no apparent distress at this time. No changes from lg3 previously documented assessment. Patient and/or family updated on plan of care and expected duration. Pain level reassessed. Patient is alert, oriented x 3, equal unlabored respirations, skin warm/dry/pink. 23:19 Reassessment: Patient appears in no apparent distress at this time. No changes from lg3 previously documented assessment. Patient and/or family updated on plan of care and expected duration. Pain level reassessed. Patient is alert, oriented x 3, equal unlabored respirations, skin warm/dry/pink. Vital Signs: 19:48 BP 98 / 67; Pulse 75; Resp 18; Temp 98.1(O); Pulse Ox 98% on R/A; Weight 56.7 kg; nj1 Height 5 ft. 2 in. ; 20:15 BP 87 / 86; Pulse 68; Resp 15 S; Pulse Ox 99% on R/A; lg3 20:48 BP 100 / 69; Pulse 68; Resp 16 S; Pulse Ox 98% on R/A; lg3 22:32 BP 116 / 81; Pulse 70; Resp 15 S; Pulse Ox 100% on R/A; lg3 23:19 BP 113 / 89; Pulse 69; Resp 16 S; Pulse Ox 99% on R/A; lg3 19:48 Body Mass Index 22.86 (56.70 kg, 157.48 cm) nj1 ED Course: 19:43 Patient arrived in ED. kj1 19:45 Kristopher Soliman MD is Attending Physician. kdr 20:06 Triage completed. nj1 20:07 Arm band placed on right wrist. nj1 20:14 Bette Servin, RN is Primary Nurse. lg3 20:15 Patient has correct armband on for positive identification. Placed in gown. Bed in low lg3 position. Call light in reach. Side rails up X 1. Client placed on continuous cardiac and pulse oximetry monitoring. NIBP monitoring applied. personnel monitor on. Door closed. Noise minimized. Warm blanket given. Family accompanied patient. 20:30 Inserted saline lock: 20 gauge in right antecubital area, using aseptic technique. pf1 Blood collected. 21:39 Attending Physician role handed off by Kristopher Soliman MD sp4 21:39 Emeterio Mojica MD is Attending Physician. sp4 21:51 CT Head C Spine In Process Unspecified. EDMS 23:17 Assist provider with laceration repair on scalp that was 2.5 cm. or less using sutures. lg3 Set up tray. Performed by Emeterio Mojica MD Patient tolerated well. IV discontinued, intact, bleeding controlled, No redness/swelling at site. Pressure dressing applied. Administered Medications: 20:38 Drug: NS 0.9% IV 500 ml Route: IV; Rate: bolus; Site: right antecubital; lg3 22:46 Follow up: IV Status: Completed infusion; IV Intake: 500ml jb4 23:19 Drug: Lidocaine Infiltration (1 %) 20 ml Volume: 20 ml; Route: Infiltration; Site: lg3 affected area; 23:19 Follow up: Response: No adverse reaction lg3 Medication: 23:19 VIS not applicable for this client. lg3 Intake: 22:46 IV: 500ml; Total: 500ml. jb4 Outcome: 23:03 Discharge ordered by . spIván 23:19 Discharged to home via wheelchair, with significant other. lg3 23:19 Condition: stable 23:19 Discharge instructions given to patient, Instructed on discharge instructions, follow up and referral plans. wound care, Demonstrated understanding of instructions, follow-up care, wound care. 23:20 Patient left the ED. lg3 Signatures: Dispatcher [employer] EDMS Kristopher Soliman MD MD kdr Josué Collier RN RN jb4 Eleonora Gabriel1 Bette Servin RN RN lg3 Niesha Greer RN RN pf1 Emeterio Mojica MD MD sp4 Ani Powell RN RN nj1
[2023-05-11 00:18] VITALS: TEMP 97.7
[2023-05-11 00:23] VITALS: BP 149/50; O2SAT 96
== END 2023-05-10 23:20 | disposition home or self-care (01) ==
LOC: ER 19:42
PROC: 0HQ0XZZ Repair Scalp Skin, External Approach (ICD-10-PCS; principal; 2023-05-10)
DX: S01.01XA Laceration without foreign body of scalp, initial encounter (principal); W18.30XA Fall on same level, unspecified, initial encounter; Y92.009 Unspecified place in unspecified non-institutional (private) residence as the place of occurrence of the external cause; Z88.8 Allergy status to other drugs, medicaments and biological substances
CPT/HCPCS: 85025; 36415; 80053; 70450; 72125; 12002; J2001; J7040

== ENCOUNTER 2023-07-19 14:21 | Inpatient (IN) | payer MEDICARE ==
[2023-07-19] MEDS ORDERED: PROMETHAZINE INJ 25 MG/ML AMP ONE (15:04)
[2023-07-19] MEDS ORDERED: NA CHLORIDE 0.9% 1,000 ML ONE (15:04)
[2023-07-19] MEDS ORDERED: FAMOTIDINE 20 MG/2 ML VIAL IV ONE (15:04)
[2023-07-19 15:15] LABS: Absolute Lymphocytes (CBC) 2.2 K/uL (0.7-4.9); Hematocrit 36.9 % (36.0-45.0); Lymphocytes % 31.5 % (15.3-44.8); MCV 90.9 fL (80-100); MPV 6.4 fL (7.6-11.3); Platelets 640 thou/uL (152-406); RBC Red Blood Cell Count 4.06 M/uL (3.86-4.86)
[2023-07-19 15:18] LABS: SARS-CoV-2 Antigen Rapid Res Negative (Negative)
[2023-07-19 15:27] LABS: Specific Gravity 1.006 (1.005-1.030); Urine Bilirubin NEGATIVE (Negative); Urine Blood Negative (Negative); Urine Clarity Clear (Clear); Urine Color Light-Yellow (Yellow); Urine Glucose NEGATIVE (Negative); Urine Protein NEGATIVE (Negative); Urine Urobilinogen Normal (Normal); Urine pH 6.5 (5.0-7.0)
[2023-07-19 15:37] LABS: Albumin 2.5 g/dL (3.4-5.0); Bilirubin Total 0.5 mg/dL (0.2-1.0); Potassium 3.4 mEq/L (3.5-5.1); Protein, Total 5.4 g/dL (6.4-8.2)
--- OUTSIDE RECORDS SUMMARY | 2023-07-19 15:38 | XMS REPORT | Continuity of Care Document ---
:1965 Author Organization [facility] t Address [address] [facility] [address] [place] [address] Care Team Providers Name Role Phone No, Pcp [facility] Primary Care Physician Unavailable Davin Platt Attending Clinician Unavailable [email or web address] Attending Clinician Unavailable Kathie Angel Attending Clinician Kristopher Blackwood Attending Clinician Dana Lunsford Attending Clinician Marla La Attending Clinician Melissa Dunham Attending Clinician Unavailable Jorge A Attending Clinician Unavailable SHAN SANTANA Attending Clinician Unavailable Shan Santana MD Attending Clinician Doctor Unassigned, [place] Attending Clinician Unavailable Almita Moore MA Attending Clinician Unavailable SCAR OJEDA Attending Clinician Unavailable NILAY LENNON Attending Clinician Unavailable Nilay Lennno DO Attending Clinician Khushi JAQUEZ, Spike Brower Attending Clinician Unavailable JESUS MORA Attending Clinician Unavailable Hill Piña Patience Attending Clinician Soco TESSAPauly Attending Clinician Herbie Olvera MD Attending Clinician Jesus Mora DO Attending Clinician Abdirizak Krueger MD Attending Clinician [phone] ABDIRIZAK KRUEGER Attending Clinician Unavailable CARLTON ECHEVERRIA Attending Clinician Unavailable Carlton Echeverria MD Attending Clinician KENYA CONNOLLY Attending Clinician Unavailable [email or web address] Admitting Clinician Unavailable Jorge A Admitting Clinician Unavailable SHAN SANTANA Admitting Clinician Unavailable NILAY LENNON Admitting Clinician Unavailable JESUS MORA Admitting Clinician Unavailable Jesus Mora DO Admitting Clinician CARLTON ECHEVERRIA Admitting Clinician Unavailable Carlton Echeverria MD Admitting Clinician MYLENE BOBBY Admitting Clinician Unavailable Payers Payer Name Policy Type Policy Number Effective Date Expiration Date S [facility] 2022 (MEDICARE 00:00:00 REPLACEMENT HMO) [employer] [id number] 2020spring 00:00:00 [employer] C1 [id number] 2018 Common g Medicare 00:00:00 Spirit - [facility] Replace [facility] Problems Condition Condition Condition Status Onset Resolution Last Treating Co mments Source Name Details Category Date Date Treatment Clinician Date Abdominal Abdominal Disease Active Uni vers pain, pain, 9-14 ity of [place]specif[place] Medical abdominal abdominal Bran ch location location Small Small Disease Recurre [facility] bowel bowel nce 06-[facility] obstructio obstructio 00:00: Me dical n n 00 Center Pancreatit Pancreatit Disease Active C HI [facility] is is 06-25 00:00: Medical 00 Center Perimenopa Post Problem Commo n usal hysterecto Spirit disorder my - CHI menopause [facility] Chronic Stage 3b Problem Common kidney chronic Spirit disease kidney - CHI stage 3B disease St (disorder) [facility] Mixed Depression Problem Commo n anxiety with Spirit and anxiety - CHI depressive disorder [facility] Benign Benign Problem Common essential essential Spir it hypertensi hypertensi - CHI on on [facility] Bipolar Bipolar Problem Common disorder disorder [facility] Solitary Solitary Problem Commo n cyst of cyst of Spirit breast left - CHI breast [facility] [id number] Irritable Problem Comm on bowel Spirit syndrome, - CHI unspecifie [facility] Migraine Migraine Problem Commo n without without Spirit aura, not aura and - CHI refractory without [facility] migrainosu Medica l s, not Center intractabl e [id number] Mixed Problem Common hyperlipid [facility]ia [facility] [id number] Nausea Problem Common Spirit [facility] [id number] Fibromyalg Problem Co mmon ia [facility] [id number] Hemorrhoid Problem Com mon s, Spirit unspecifie - CHI d hemorrhoid [facility] Pain in Left wrist Problem Comm on wrist pain [facility] [id number] Back pain Problem Com mon with Spirit left-sided - CHI radiculopa [facility] [id number] History of Problem Co mmon intussusce [facility] ption CHI [facility] [id number] Constipati Problem Com mon on, Spirit unspecifie - CHI d constipati [facility] [id number] GERD Problem Common without Spirit esophagiti - CHI s [facility] [id number] Subclinica Problem Com mon l Spirit hypothyroi - CHI dism [facility] [id number] +5th digit Problem Co mmon eff Spirit 07/03/20*CK - CHI D (chronic St kidney [facility] disease) Medical stage 3, Center GFR 30-59 ml/min Right Abdominal Problem Common upper pain, RUQ Spirit quadrant - CHI pain [facility] No known No known Disease Unive rs active active ity of problems problems [facility] Allergies, Adverse Reactions, Alerts Allergy Allergy [...] Unknown Commo n ramide ramide Spirit - [facility] 5921 Drug Active Unknown Common allergy [facility] - [facility] Social History Social Habit Start Date Stop Date Quantity Comments Source History of Common Spirit - Tobacco Use [facility] History SDOH [facility] Drinks History SDOH [facility] Alcohol Binge Medical Bruna ter Exposure to 2022-09-13 2022-09-23 Not sure University of SARS-CoV-2 00:00:00 14:14:00 [facility] (event) Branch Education 2022-06-16 2022-06-16 21 University of 00:00:00 00:00:00 [facility] Alcohol intake 2022-04-14 2022-04-[address] [facility] 00:00:00 00:00:00 non-drinker of Medical Ce nter alcohol (finding) Tobacco use and 2019-06-25 2019-06-25 Smokeless tobacco [facility] exposure 00:00:00 00:00:00 non-user Medical Center History SDOH 2019-06-25 2019-06-25 1 ADELAIDE [place] Alcohol Frequency 00:00:00 00:00:00 [facility] Sex Assigned At [birth year] ADELAIDE Sandersons 00:00:00 00:00:00 Medical Center Smoking Status Start Date Stop Date Source Never smoked tobacco [facility] Medications Ordered Filled Start Stop Current Ordering [...] dose, On Medica l tablet 1 Tue [place] tablet 07/26/22 at 1545, Routine methocarbam 2021-10- No 1000mg 1,000 mg, Univers oL 0-24 10-24 Oral, ity of (ROBAXIN) 17:45: 18:58 ONCE, [place] tablet 00 :00 dose, On Medical 1,[address] [facility] Branch 07/26/22 at 1245, RUBEN naproxen 2021-10 Yes [id number] 550mg Take 1 Univers sodium 550 0-24 [id number] tablet by it y of mg tablet 00:00: [place] 00 the Medical morning Branch and 1 tablet in the evening. Take with meals. methylPREDN 2021-10 Yes [id number] Take by Univers ISolone 4 0-24 [id number] mouth ity of mg tablets 00:00: [place]-INSTRU [place] 00 CTIONS. Medical follow Branch package directions naproxen 2021-10 Yes [id number] 550mg Take 1 Univers sodium 550 0-24 [id number] tablet by it y of mg tablet 00:00: [place] 00 the Medical morning Branch and 1 tablet in the evening. Take with meals. methylPREDN 2021-10 Yes [id number] Take by Univers ISolone 4 0-24 [id number] mouth ity of mg tablets 00:00: [place]-INSTRU [place] 00 CTIONS. Medical follow Branch package directions naproxen 2021-10 Yes [id number] 550mg Take 1 Univers sodium 550 0-24 [id number] tablet by it y of mg tablet 00:00: [place] the Medical morning Branch and 1 tablet in the evening. Take with meals. methylPREDN 2021-10 Yes [id number] Take by [facility] ISolone 4 0-24 [id number] mouth ity of mg tablets 00:00: SEE-INSTRU [place] 00 CTIONS. Medical follow Branch package directions methocarbam 2021-10- No [id number] 500mg Take 1 Univers oL 500 mg 008-01 [id number] tablet by it y of tablet 00:00: 04:59 mouth in [place] 00 :00 the Medical morning Branch and 1 tablet at noon and 1 tablet in the evening. Do all this for 5 days. lidocaine 5 2021-10- No [id number] 1{patch Apply 1 Univers % (700 0-24 10 [id number] } Patch to ity of mg/patch) 00:00: 04:59 [facility] once now Medical for [...] by ity of capsule 12:24: mouth 3 [place] 20 (three) Medical times Branch daily. Indication s: 1 in the Am and 4 at bed time ziprasidone 2021-0 Yes 60mg Take 60 mg Univers 60 mg 9-19 by mouth ity of capsule 12:24: daily. [place] [address] Medical Branch PANTOPRAZOL 0 Yes 40mg Take [...] by mouth ity of tablet 12:24: daily. [place] [address] Medical Branch levothyroxi 2022-0 Yes 50ug Take 50 Uni vers ne 50 mcg 9-19 mcg by ity of tablet 12:24: mouth [place] 20 every Medical morning. Branch hydrOXYzine 0 Yes 50mg Take 50 mg Univers 50 mg 9-19 by mouth ity of tablet 12:24: in the [place] 20 morning Medical and 50 mg Branch in the evening. zolpidem 2021-0 Yes 12.5mg Take 12.5 Un henry 12.5 mg CR 9-19 mg by ity of tablet 12:24: mouth at [place] [address] bedtime as Medical needed for Branch Sleep. buspirone 2021-0 Yes 5mg Take 5 mg Uni vers HCl 9-19 by mouth ity of (BUSPIRONE 12:24: as needed. [place] ORAL) 20 Medical Branch LORazepam 0 Yes .5mg Take 0.5 Univ ers 0.5 mg 9-19 mg by ity of tablet 12:24: mouth as [place] [address] needed. Medical Branch venlafaxine 0 Yes 75mg Take 75 mg Univers XR 75 mg 24 19 by mouth ity of hr capsule 12:24: daily with [place] 20 breakfast. Medical Branch lamoTRIgine 0 Yes 200mg Take 200 U nivers 200 mg 9-19 mg by ity of tablet 12:24: mouth in [place] 20 the Medical morning. Branch gabapentin 0 Yes 300mg Take 300 Un henry 300 mg 9-19 mg by ity of capsule 12:24: mouth 3 [place] 20 (three) Medical times Branch daily. Indication s: 1 in the Am and 4 at bed time ziprasidone 2021-0 Yes 60mg Take 60 mg Univers 60 mg 9-19 by mouth ity of capsule 12:24: daily. [place] 20 Medical Branch PANTOPRAZOL 0 Yes 40mg Take 40 mg Univers E SODIUM 9-19 by mouth. ity of (PROTONIX 12:24: [place] ORAL) 20 Medical Branch tiZANidine 0 Yes 4mg Take 4 mg Un henry 4 mg 9-19 by mouth 2 ity of capsule 12:24: (two) [place] 20 times Medical daily. Branch IRON &IRON 0 Yes Take by Univ ers ASP 9-19 mouth. ity of GLY-HAROON-JAZMYN,M 12:24: Indication [place] IN38 ORAL 20 s: iron Medical injectio Branch once a month propranolol 2021-0 Yes 20mg Take 20 mg Univers 20 mg 9-19 by mouth ity of tablet 12:24: daily. [place] [address] Medical Branch levothyroxi 0 Yes 50ug Take 50 Uni vers ne 50 mcg 9-19 mcg by ity of tablet 12:24: mouth [place] 20 every Medical morning. Branch hydrOXYzine 0 Yes 50mg Take 50 mg Univers 50 mg 9-19 by mouth ity of tablet 12:24: in the [place] 20 morning Medical and 50 mg Branch in the evening. zolpidem 0 Yes 12.5mg Take 12.5 Un henry 12.5 mg CR 9-19 mg by ity of tablet 12:24: mouth at [place] [address] bedtime as Medical needed for Branch Sleep. buspirone 2021-0 Yes 5mg Take 5 mg Uni vers HCl 9-19 by mouth ity of (BUSPIRONE 12:24: as needed. [place] ORAL) 20 Medical Branch LORazepam 2021-0 Yes .5mg Take 0.5 Univ ers 0.5 mg 9-19 mg by ity of tablet 12:24: mouth as [place] [address] needed. Medical Branch venlafaxine 0 Yes 75mg Take 75 mg Univers XR 75 mg 24 9-19 by mouth ity of hr capsule 12:24: daily with [place] 20 breakfast. Medical Branch lamoTRIgine 0 Yes 200mg Take 200 U nivers 200 mg 9-19 mg by ity of tablet 12:24: mouth in [place] 20 the Medical morning. Branch gabapentin 0 Yes 300mg Take 300 Un henry 300 mg 9-19 mg by ity of capsule 12:24: mouth 3 [place] 20 (three) Medical times Branch daily. Indication s: 1 in the Am and 4 at bed time ziprasidone 2021-0 Yes 60mg Take 60 mg Univers 60 mg 9-19 by mouth ity of capsule 12:24: daily. [place] [address] Medical Branch PANTOPRAZOL 2021-0 Yes 40mg Take [...] by mouth ity of tablet 12:24: daily. [place] 20 Medical Branch levothyroxi 2021-0 Yes 50ug Take 50 Uni vers ne 50 mcg 9-19 mcg by ity of tablet 12:24: mouth [place] 20 every Medical morning. Branch hydrOXYzine 0 Yes 50mg Take 50 mg Univers 50 mg 9-19 by mouth ity of tablet 12:24: in the [place] 20 morning Medical and 50 mg Branch in the evening. zolpidem 0 Yes 12.5mg Take 12.5 Un henry 12.5 mg CR 9-19 mg by ity of tablet 12:24: mouth at [place] [address] bedtime as Medical needed for Branch Sleep. buspirone 2021-0 Yes 5mg Take 5 mg Uni vers HCl 9-19 by mouth ity of (BUSPIRONE 12:24: as needed. [place] ORAL) 20 Medical Branch LORazepam 0 Yes .5mg Take 0.5 Univ ers 0.5 mg 9-19 mg by ity of tablet 12:24: mouth as [place] [address] needed. Medical Branch venlafaxine 0 Yes 75mg [...] by mouth ity of capsule 12:24: daily. [place] 20 Medical Branch PANTOPRAZOL 2021-0 Yes 40mg [...] by mouth ity of tablet 12:24: daily. [place] 20 Medical Branch levothyroxi 0 Yes 50ug [...] by mouth ity of capsule 12:24: daily. [place] [address] Medical Branch PANTOPRAZOL 0 Yes 40mg Take [...] by mouth ity of tablet 12:24: daily. [place] [address] Medical Branch levothyroxi 0 Yes 50ug Take 50 Uni vers ne 50 mcg 9-19 mcg by ity of tablet 12:24: mouth [place] 20 every Medical morning. Branch hydrOXYzine Yes 50mg Take 50 mg Univers 50 mg 9-19 by mouth ity of tablet 12:24: in the [place] 20 morning Medical and 50 mg Branch in the evening. zolpidem Yes 12.5mg Take 12.5 Un henry 12.5 mg CR 9-19 mg by ity of tablet 12:24: mouth at [place] 20 bedtime as Medical needed for Branch [...] 00 :00 dose, On Medi carlos 1:1:1 [facility] Branch (FIRST-MOUT 06/17/22 at [facility]) 2100, oral Routine suspension 15 mL HYDROcodone 2021-0 Yes 1{tbl} 1 tablet, Univers -acetaminop 16 Oral, ity of hen (NORCO 01:00: Q6HPRN, [place] 5) 5-325 mg 34 Starting Medi carlos tablet 1 on [facility] Branch tablet 06/17/22 at 2000, Until Discontinu ed, Routine, Pain (scale 4-6) morpHINE (2 0 Yes 2mg 2 mg, Slow Univers mg/mL) 9-15 IV Push, ity of injection 2 20:14: Q6HPRN, [place] as mg 54 Starting Medical on [facility] Branch 06/17/22 at 1514, Until Discontinu ed, Routine, Pain (scale 7-10) maalox:diph 2021-0 2021- No 15mL 15 mL, Uni vers enhydrAMINE 06-17 Oral, ity of :lidocaine 15:45: 15:51 ONCE, 1 [place] 2 % viscous 00 :00 dose, On Medi carlos 1:1:1 [facility] Branch (FIRST-MOUT 06/17/22 at [facility]) 1045, oral Routine suspension 15 mL pantoprazol 2021-0 Yes 40mg 40 mg, Univ ers e 06-17 Oral, ity of (PROTONIX) 14:00: DAILY, [place] EC tablet 00 First dose Medi carlos 40 mg on [facility] Branch 06/17/22 at 0900, Until Discontinu ed lamoTRIgine 2021-0 Yes 200mg 200 mg, Un henry (LAMICTAL) 15 Oral, ity of tablet 200 14:00: DAILY, [place] mg 00 First dose Medical on [facility] Branch 06/17/22 at 0900, Until Discontinu ed, Routine venlafaxine 2021-0 Yes 75mg 75 mg, Univ ers XR (EFFEXOR 15 Oral, QAM ity of XR) 24 hr 13:00: WITH [place] capsule 75 00 BREAKFAST, Med ical mg First dose Branch on [facility] 06/17/22 at 0800, Until Discontinu ed, Routine tiZANidine 2021-0 Yes 4mg 4 mg, Univer s (ZANAFLEX) 9-15 Oral, BID, ity of tablet 4 mg 13:00: First dose [place] 00 on [facility] 06/17/22 at Branch 0800, Until Discontinu ed propranoloL 2021-0 Yes 20mg 20 mg, Univ ers (INDERAL) 9-15 Oral, BID, ity of tablet 20 13:00: First dose [place] mg 00 on [facility] 06/17/22 at Branch 0800, Until Discontinu ed, Routine heparin 2021-0 Yes 5000U 5,000 Univers (porcine) 9-15 Units, ity of injection 13:00: Subcutaneo [place] 5,000 Units 00 us, Q12H, Med ical First dose Branch on [facility] 06/17/22 at 0800, Until Discontinu ed, Routine levothyroxi 2021-0 Yes 50ug 50 mcg, Uni vers ne 15 Oral, ity of (SYNTHROID) 11:00: QAM-0600, [place] tablet 50 00 First dose Medi carlos mcg on [facility] 06/17/22 at 0600, Until Discontinu ed, Routine ziprasidone 2021-0 Yes 120mg 120 mg, Un henry (GEODON) 9-15 Oral, QHS, ity o f capsule 120 08:30: First dose [place] mg 00 on [facility] 06/17/22 at Branch 0330, Until Discontinu ed, Routine NaCl 0.9% 0 2021- No 1000mL at 100 Uni vers (NS) IV 06-17-17 mL/hr, IV ity of infusion 07:15: 22:39 Infusion, [place] 1,000 mL 00 :15 CONTINUOUS Medic al , Starting Branch on [facility] 06/17/22 at 0215, Until 06/19/22 at 1739, Routine NaCl 0.9% 0 2021- No 1000mL at 999 Uni vers (NS) bolus 06-17 09-15 mL/hr, ity of infusion 07:15: 07:48 1,000 mL, [place] 1,000 mL 00 :04 IV Medical Piggyback, Branch ONCE, 1 dose, On [facility] 06/17/22 at 0215, RUBEN gabapentin 2021-0 Yes 300mg 300 mg, Uni vers (NEURONTIN) -15 Oral, TID, it y of capsule 300 06:30: First dose [place] mg 00 on [facility] 06/17/22 at Branch 0130, Until Discontinu ed, Routine hydrOXYzine 2021-0 Yes 25mg 25 mg, Univ ers (ATARAX) -15 Oral, ity of tablet 25 06:19: Q6HPRN, [place] mg 36 Starting Medical on [facility] 06/17/22 at 0119, Until Discontinu ed, Routine, Anxiety zolpidem 2021-0 Yes 10mg 10 mg, Univers (AMBIEN) 15 Oral, ity of tablet 10 06:18: QHSPRN, [place] mg 39 Starting Medical on [facility] 06/17/22 at 0118, Until Discontinu ed, Insomnia LORazepam 2021-0 Yes .5mg 0.5 mg, Unive rs (ATIVAN) 06-17 Oral, ity of tablet 0.5 06:16: BIDPRN, [place] mg 51 Starting Medical on [facility] 06/17/22 at 0116, Until Discontinu ed, Routine, Agitation sennosides 2021-0 Yes 8.6mg 8.6 mg, Uni vers (SENOKOT) -15 Oral, BID, ity of tablet 8.6 06:15: First dose [place] mg 00 on [facility] 06/17/22 at Branch 0115, Until Discontinu ed, Routine docusate 2021-0 Yes 100mg 100 mg, Unive rs (COLACE) -15 Oral, BID, ity o f capsule 100 06:15: First dose [place] mg 00 on [facility] 06/17/22 at Branch 0115, Until Discontinu ed, Routine pantoprazol 2021-0 202- No 40mg 40 mg, Uni vers e 06-17 09-18 Slow IV ity of (PROTONIX) 06:15: 15:58 Push, [place] injection 00 :22 Q12H, Medical 40 mg First dose Branch on [facility] 06/17/22 at 0115, Until Discontinu ed [...] 06/16/22 at 2115, STAT iopamidol 2021- No [id number] 70mL 70 mL, U nivers (ISOVUE 06-17 [...] dose, On Tue06/16/22 at 1900, STAT ibuprofen 0 2021- No 600mg 600 mg, Uni vers (IBU) 06-1615 Oral, ity of tablet 600 23:00: 00:11 ONCE, 1 [place] as mg 00 :00 dose, On Tue Branch 06/16/22 at 1800, RUBEN ziprasidone 0 Yes 120mg QD Take 120 [...] morning on tablet an empty stomach. hydrOXYzine Yes 50mg Take [address] (VISTARIL) 7-13 by mouth [facility] 50 MG 13:36: once at Medical capsule 47 bedtime. Center clonazePAM 0 Yes .5mg Take 0.[address] (KLONOPIN) 7-13 mg by [facility]ukes 0.5 MG 13:36: mouth 2 Medical tablet 47 (two) Center times daily as needed for Anxiety. gabapentin 2021-0 Yes 600mg Q.[id number] Take [address] (NEURONTIN) 7-13 [id number] mg by L ukes 600 MG 13:36: [...] needed for Anxiety. gabapentin 2021-0 Yes 600mg Q.[id number] Take [address] (NEURONTIN) 7-13 [id number] mg by L ukes 600 MG 13:36: [...] needed for Anxiety. gabapentin 2021-0 Yes 600mg Q.[id number] Take [address] (NEURONTIN) 7-13 [id number] mg by L ukes 600 MG 13:36: [...] needed for Anxiety. gabapentin 2021-0 Yes 600mg Q.[id number] Take [address] (NEURONTIN) 7-13 [id number] mg by L ukes 600 MG 13:36: [...] needed for Anxiety. gabapentin 2021-0 Yes 600mg Q.[id number] Take [address] (NEURONTIN) 7-13 [id number] mg by L ukes 600 MG 13:36: [...] needed for Anxiety. gabapentin 2021-0 Yes 600mg Q.[id number] Take [address] (NEURONTIN) 7-13 [id number] mg by L ukes 600 MG 13:36: [...] times daily as needed for Anxiety. gabapentin 2-0 Yes 600mg Q.77250532 Take [address] (NEURONTIN) 7-13 [id number] mg by L ukes 600 MG 13:36: 3D mouth 3 Medical tablet 47 (three) Center times daily. LORazepam 2022-0 Yes .5mg Take 0.5 CHI [...] 3-23 Lukes mg tablet 00:00: Medical 00 [place] zolpidem [address] (AMBIEN) 10 3-23 [facility] mg tablet 00:00: Medical 00 [place] zolpidem 2021-[address] (AMBIEN) 10 3-23 [facility] mg tablet 00:00: Medical 00 [place] zolpidem 2021-[address] (AMBIEN) 10 3-23 [facility] mg tablet 00:00: Medical 00 [place] zolpidem 2021-[address] (AMBIEN) 10 3-23 [facility] mg tablet 00:00: Medical 00 [place] zolpidem 2021-[address] (AMBIEN) 10 3-23 [facility]ukes mg tablet 00:00: Medical 00 [place] zolpidem 2021-[address] (AMBIEN) 10 3-23 [facility] mg tablet 00:00: Medical 00 [place] lamoTRIgine 2021-[address] (LaMICtal) 3-15 [facility] 200 MG 00:00: Medical tablet 00 [place] lamoTRIgine [address] (LaMICtal) 3-15 [facility] 200 MG 00:00: Medical tablet 00 [place] lamoTRIgine 2021-[address] (LaMICtal) 3-15 [facility] 200 MG 00:00: Medical tablet 00 [place] lamoTRIgine 2021-[address] (LaMICtal) 3-15 [facility] 200 MG 00:00: Medical tablet 00 [place] lamoTRIgine Yes [facility] (LaMICtal) 3-15 [facility] 200 MG 00:00: Medical tablet 00 [place] lamoTRIgine Yes [facility] (LaMICtal) 3-15 [facility] 200 MG 00:00: Medical tablet 00 [place] lamoTRIgine Yes [facility] (LaMICtal) 3-15 [facility] 200 MG 00:00: Medical tablet 00 [place] venlafaxine Yes [facility] (EFFEXOR) 3-04 [facility] 75 MG 00:00: Medical tablet 00 [place] venlafaxine Yes [facility] (EFFEXOR) 3-04 [facility] 75 MG 00:00: Medical tablet 00 [place] venlafaxine Yes [facility] (EFFEXOR) 3-04 [facility] 75 MG 00:00: Medical tablet 00 [place] venlafaxine Yes [facility] (EFFEXOR) 3-04 [facility] 75 MG 00:00: Medical tablet 00 [place] venlafaxine Yes [facility] (EFFEXOR) 3-04 [facility] 75 MG 00:00: Medical tablet 00 [place] venlafaxine Yes [facility] (EFFEXOR) 3-04 [facility] 75 MG 00:00: Medical tablet 00 [place] venlafaxine Yes [facility] (EFFEXOR) 3-04 [facility] 75 MG 00:00: Medical tablet 00 [place] iopamidol 2021- No [id number] 100mL 100 mL, Univers (ISOVUE -14 10-16 [...] 2020-10 Yes PRN, Univer s (GAS RELIEF 2-21 Starting ity of (SIMETHICON 17:03: on Tue [...] 1000mL at 42 [facility] IV - 12-21 mL/hr, ity of infusion 16:45: 16:47 1,000 mL, [place] 1,000 mL 00 :00 IV Medical Infusion, Branch ONCE, 1 dose, On Tue09/22/21 at 1045, Routine, DSU Pre-op lactated 2020-10- No 1000mL at 42 Unive rs ringers IV - 12- mL/hr, ity of infusion 16:45: 16:47 1,000 mL, [place] 1,000 mL 00 :00 IV Medical Infusion, Branch ONCE, 1 dose, On Tue09/22/21 at 1045, Routine, DSU Pre-op FLUoxetine 2020-10 Yes 40mg Take 40 mg U nivers (PROZAC) 40 2-21 by mouth ity of mg capsule 12:23: daily. [address] gabapentin 2020-10 Yes 300mg Take 300 Un henry 300 mg 2-21 mg by ity of capsule 12:23: mouth 3 [place] 30 (three) Medical times Branch daily. Indication s: 1 in the Am and 4 at bed time ziprasidone 2020-10 Yes 60mg Take 60 mg Univers (GEODON) 60 2-21 by mouth ity of mg capsule 12:23: daily. [address] Branch PANTOPRAZOL 2020-10 Yes 40mg Take 40 mg Univers E SODIUM 2-21 by mouth. ity of (PROTONIX 12:23: [place] ORAL) 30 Medical Branch tiZANidine 2020-10 Yes 4mg Take 4 mg Un henry (ZANAFLEX) 2-21 by mouth 2 ity of 4 mg 12:23: (two) [place] capsule 30 times Medical daily. Branch IRON &IRON 2020-10 Yes Take by [facility] ers ASP 2-21 mouth. ity of LINUS-LATOYA,M 12:23: Indication [place] IN38 ORAL 30 s: iron Medical injectio Branch once a month DICLOFENAC 2020-10 Yes Take 50 mg U nivers POTASSIUM 2-21 base by ity of (CAMBIA 12:23: mouth. [place] ORAL) 30 Medical Branch propranolol 2020-10 Yes 20mg Take 20 mg Univers 20 mg 2-21 by mouth ity of tablet 12:23: daily. [address] FLUoxetine 2020-10 Yes 40mg Take 40 mg U nivers (PROZAC) 40 2-21 by mouth ity of mg capsule 12:23: daily. [address] gabapentin 2020-10 Yes 300mg Take 300 Un henry 300 mg 2-21 mg by ity of capsule 12:23: mouth 3 [place] 30 (three) Medical times Branch daily. Indication s: 1 in the Am and 4 at bed time ziprasidone 2020-10 Yes 60mg Take 60 mg Univers (GEODON) 60 2-21 by mouth ity of mg capsule 12:23: daily. [address] [place] [address] PANTOPRAZOL 2020-10 Yes 40mg Take 40 mg Univers E SODIUM 2-21 by mouth. ity of (PROTONIX 12:23: [place] ORAL) 30 Medical Branch tiZANidine 2020-10 Yes 4mg Take 4 mg Un henry (ZANAFLEX) 2-21 by mouth 2 ity of 4 mg 12:23: (two) [place] capsule 30 times Medical daily. Branch IRON &IRON 2020-10 Yes Take by [facility] ers ASP 2-21 mouth. ity of LINUS-LATOYA,M 12:23: Indication [place] IN38 ORAL 30 s: iron Medical injectio Branch once a month DICLOFENAC 2020-10 Yes Take 50 mg U nivers POTASSIUM 2-21 base by ity of (CAMBIA 12:23: mouth. [place] ORAL) 30 Medical Branch propranolol 2020-10 Yes 20mg Take 20 mg Univers 20 mg 2-21 by mouth ity of tablet 12:23: daily. [address] FLUoxetine 2020-10 Yes 40mg Take 40 mg U nivers (PROZAC) 40 2-21 by mouth ity of mg capsule 12:23: daily. [address] gabapentin 2020-10 Yes 300mg Take 300 Un henry 300 mg 2-21 mg by ity of capsule 12:23: mouth 3 [place] 30 (three) Medical times Branch daily. Indication s: 1 in the Am and 4 at bed time ziprasidone 2020-10 Yes 60mg Take 60 mg Univers (GEODON) 60 2-21 by mouth ity of mg capsule 12:23: daily. [address] PANTOPRAZOL 2020-10 Yes 40mg Take 40 mg Univers E SODIUM 2-21 by mouth. ity of (PROTONIX 12:23: [place] ORAL) [address] [place] [address] Branch tiZANidine 2020-10 Yes 4mg Take 4 mg Un henry (ZANAFLEX) 2-21 by mouth 2 ity of 4 mg 12:23: (two) [place] capsule 30 times Medical daily. Branch IRON &IRON 2020-10 Yes Take by Univ ers ASP 2-21 mouth. ity of GLY-FA-MV,M 12:23: Indication [place] IN38 ORAL 30 s: iron Medical injectio Branch once a month DICLOFENAC 2020-10 Yes Take 50 mg U nivers POTASSIUM 2-21 base by ity of (CAMBIA 12:23: mouth. [facility]) [address] [place] [address] Branch propranolol 2020-10 Yes 20mg Take 20 mg Univers 20 mg 2-21 by mouth ity of tablet 12:23: daily. [address] FLUoxetine 2020-10 Yes 40mg Take 40 mg U nivers (PROZAC) 40 2-21 by mouth ity of mg capsule 12:23: daily. [address] gabapentin 2020-10 Yes 300mg Take 300 Un henry 300 mg 2-21 mg by ity of capsule 12:23: mouth 3 [place] [id number] (three) Medical times [place] daily. Indication s: 1 in the Am and 4 at bed time ziprasidone 2020-10 Yes 60mg Take 60 mg Univers (GEODON) 60 2-21 by mouth ity of mg capsule 12:23: daily. [address] PANTOPRAZOL 2020-10 Yes 40mg Take 40 mg Univers E SODIUM 2-21 by mouth. ity of (PROTONIX 12:23: [place] ORAL) 30 Medical Branch tiZANidine 2020-10 Yes 4mg Take 4 mg Un henry (ZANAFLEX) 2-21 by mouth 2 ity of 4 mg 12:23: (two) [place] capsule 30 times Medical daily. Branch IRON &IRON 2020-10 Yes Take by [facility] ers ASP 2-21 mouth. ity of CONSTANTINO,M 12:23: Indication [place] IN38 ORAL 30 s: iron Medical injectio Branch once a month DICLOFENAC 2020-10 Yes Take 50 mg U nivers POTASSIUM 2-21 base by ity of (CAMBIA 12:23: mouth. [place] ORAL) 30 Medical Branch propranolol 2020-10 Yes 20mg Take 20 mg Univers 20 mg 2-21 by mouth ity of tablet 12:23: daily. [address] FLUoxetine 2020-10 Yes 40mg Take 40 mg U nivers (PROZAC) 40 2-21 by mouth ity of mg capsule 12:23: daily. [address] gabapentin 2020-10 Yes 300mg Take 300 Un henry 300 mg 2-21 mg by ity of capsule 12:23: mouth 3 [place] 30 (three) Medical times Branch daily. Indication s: 1 in the Am and 4 at bed time ziprasidone 2020-10 Yes 60mg Take 60 mg Univers (GEODON) 60 2-21 by mouth ity of mg capsule 12:23: daily. [address] PANTOPRAZOL 2020-10 Yes 40mg Take 40 mg Univers E SODIUM 2-21 by mouth. ity of (PROTONIX 12:23: [place] ORAL) 30 Medical Branch tiZANidine 2020-10 Yes 4mg Take 4 mg Un henry (ZANAFLEX) 2-21 by mouth 2 ity of 4 mg 12:23: (two) [place] capsule 30 times Medical daily. Branch IRON &IRON 2020-10 Yes Take by [facility] ers ASP 2-21 mouth. ity of CONSTANTINO,M 12:23: Indication [place] IN38 ORAL 30 s: iron Medical injectio Branch once a month DICLOFENAC 2020-10 Yes Take 50 mg U nivers POTASSIUM 2-21 base by ity of (CAMBIA 12:23: mouth. [place] ORAL) 30 Medical Branch propranolol 2020-10 Yes 20mg Take 20 mg Univers 20 mg 2-21 by mouth ity of tablet 12:23: daily. [place] [address] [facility] water for 2020-10- No PRN, Univers irrigation [...] mouth ity of mg capsule 13:01: daily. [address] gabapentin 2020-10 Yes 300mg Take 300 Un henry 300 mg 1-18 mg by ity of capsule 13:01: mouth 3 [place] [address] (three) Medical times [place] daily. Indication s: 1 in the Am and 4 at bed time ziprasidone 2020-10 Yes 60mg Take 60 mg Univers (GEODON) 60 1-18 by mouth ity of mg capsule 13:01: daily. [address] PANTOPRAZOL 2020-10 Yes 40mg Take 40 mg Univers E SODIUM 1-18 by mouth. ity of (PROTONIX 13:01: [place] ORAL) Medical Branch tiZANidine 2020-10 Yes 4mg Take 4 mg Un henry (ZANAFLEX) 1-18 by mouth 2 ity of 4 mg 13:01: (two) [place] capsule 23 times Medical daily. Branch IRON &IRON 2020-10 Yes Take by [facility] ers ASP 1-18 mouth. ity of Cristofer MEEKS 13:01: Indication [place] IN38 ORAL 23 s: iron Medical injectio Branch once a month DICLOFENAC 2020-10 Yes Take 50 mg U nivers POTASSIUM 1-18 base by ity of (CAMBIA 13:01: mouth. [place] ORAL) Medical Branch propranolol 2020-10 Yes 20mg Take 20 mg Univers 20 mg 1-18 by mouth ity of tablet 13:01: daily. [address] Branch FLUoxetine 2020-10 Yes 40mg Take 40 mg U nivers (PROZAC) 40 1-18 by mouth ity of mg capsule 13:01: daily. [address] gabapentin 2020-10 Yes 300mg Take 300 Un henry 300 mg 1-18 mg by ity of capsule 13:01: mouth 3 [place] [address] (three) Medical times Branch daily. Indication s: 1 in the Am and 4 at bed time ziprasidone 2020-10 Yes 60mg Take 60 mg Univers (GEODON) 60 1-18 by mouth ity of mg capsule 13:01: daily. [address] Branch PANTOPRAZOL 2020-10 Yes 40mg Take 40 mg Univers E SODIUM 1-18 by mouth. ity of (PROTONIX 13:01: [place] ORAL) Medical Branch tiZANidine 2020-10 Yes 4mg Take 4 mg Un henry (ZANAFLEX) 1-18 by mouth 2 ity of 4 mg 13:01: (two) [place] capsule 23 times Medical daily. Branch IRON &IRON 2020-10 Yes Take by [facility] ers ASP 1-18 mouth. ity of Cristofer MEEKS 13:01: Indication [place] IN38 ORAL 23 s: iron Medical injectio Branch once a month DICLOFENAC 2020-10 Yes Take 50 mg U nivers POTASSIUM 1-18 base by ity of (CAMBIA 13:01: mouth. [place] ORAL) Medical Branch propranolol 2020-10 Yes 20mg Take 20 mg Univers 20 mg 1-18 by mouth ity of tablet 13:01: daily. [address] Branch FLUoxetine 2020-10 Yes 40mg Take 40 mg U nivers (PROZAC) 40 1-18 by mouth ity of mg capsule 13:01: daily. [address] Branch gabapentin 2020-10 Yes 300mg Take 300 Un henry 300 mg 1-18 mg by ity of capsule 13:01: mouth 3 [place] [address] (three) Medical times Branch daily. Indication s: 1 in the Am and 4 at bed time ziprasidone 2020-10 Yes 60mg Take 60 mg Univers (GEODON) 60 1-18 by mouth ity of mg capsule 13:01: daily. [address] Branch PANTOPRAZOL 2020-10 Yes 40mg Take 40 mg Univers E SODIUM 1-18 by mouth. ity of (PROTONIX 13:01: [place] ORAL) Medical Branch tiZANidine 2020-10 Yes 4mg Take 4 mg Un henry (ZANAFLEX) 1-18 by mouth 2 ity of 4 mg 13:01: (two) [place] capsule 23 times Medical daily. Branch IRON &IRON 2020-10 Yes Take by Univ ers ASP 1-18 mouth. ity of GLY-FA-MV,M 13:01: Indication [place] IN ORAL 23 s: iron Medical injectio Branch once a month DICLOFENAC 2020-10 Yes Take 50 mg U nivers POTASSIUM 1-18 base by ity of (CAMBIA 13:01: mouth. [facility]) Medical Branch propranolol 2020-10 Yes 20mg Take 20 mg Univers 20 mg 1-18 by mouth ity of tablet 13:01: daily. [address] Branch Sulfamethox Sulfamethox 2020- No 1{table [...] [place] 00 daily. Medical Branch amLODIPine 2017-0 202- No 5mg Take 1 Univ ers 5 mg tablet 9-05 11- tablet by it y of 00:00: 00:00 mouth [place] 00 :00 daily. Medical Branch Amitiza Amitiza Yes Davin 1 capsule Co mmon Platt with food [facility] Pantoprazol Pantoprazol Yes Davin 1 tablet Common e Sodium e Sodium Platt [facility] Propranolol Propranolol Yes Davin 1 tablet Common HCl HCl Platt on an Spirit empty - [facility] stomach [facility] Vitamin D3 Vitamin D3 Yes Davin 1 capsule Common Platt [facility] Levothyroxi Levothyroxi Yes Davin 1 tablet Common ne Sodium ne Sodium Platt on an Spi rit empty - CHI stomach in [facility] Promethazin Promethazin Yes Davin 5 ml as Common e-DM e-DM Platt needed [facility] Nausea/Vom - [facility] iting [facility] Clonazepam Clonazepam Yes Davin 1 tablet Common Platt at bedtime [facility] Geodon Geodon Yes Davin 1 capsule Comm on Platt with food [facility] baclofen baclofen Yes Davin 1 tab as C ommon Platt needed for [facility] pain [facility] Iron Iron Yes Davin not Common Supplement Supplement Platt defined [facility] Ziprasidone Ziprasidone Yes Davin 1 capsule Common HCl HCl Platt with food [facility] Tizanidine Tizanidine Yes Davin 1 tablet Common HCl HCl Platt [facility] HydrOXYzine HydrOXYzine Yes Davin 1 tablet Common HCl HCl Platt [facility] Gabapentin Gabapentin Yes Davin 1 tablet Common Platt am and 2 Spirit tabs pm [facility] Gabapentin Gabapentin Yes Davin TAKE ONE Common Platt TABLET BY Spirit MOUTH - [facility] EVERY [facility] AND THEN Medical TAKE TWO Center TABLETS BY MOUTH EVERY EVENING Wellbutrin Wellbutrin Yes Davin 1 tablet Common XL XL Platt in the [facility] morning [facility] Fluoxetine Fluoxetine Yes Davin 1 capsule Common HCl HCl Platt [facility] Pantoprazol Pantoprazol No Pantoprazo e Sodium 40 [...] HCl 10 MG l HCl 10 MG Strang Strang No Strang FLUoxetine FLUoxetine No 1{capsu QD FLUoxetine HCl [...] ne-DM 6.25-15 6.25-15 6.25-15 MG/5ML MG/5ML MG/5ML Strang Strang No Strang lamoTRIgine lamoTRIgine No 1{table QD lamoTRIgin 100 [...] HCl 10 MG Effexor Effexor No Effexor Strang Strang No Strang Pantoprazol Pantoprazol No Pantoprazo e Sodium 40 [...] ne-DM 6.25-15 6.25-15 6.25-15 MG/5ML MG/5ML MG/5ML Strang Strang No Strang Pantoprazol Pantoprazol No Pantoprazo e Sodium 40 [...] HCl 4 MG t} HCl 4 MG Strang Strang No Strang Effexor Effexor No Effexor Geodon 60 Geodon [...] MG 200 MG t} e 200 MG Strang Strang No Strang Propranolol Propranolol No 1{table BID Propranolo HCl [...] MG 200 MG t} e 200 MG Strang Strang No Strang Propranolol Propranolol No 1{table BID Propranolo HCl [...] MG le_with e HCl 60 _food} MG Strang Strang No Strang lamoTRIgine lamoTRIgine No 1{table QD lamoTRIgin 200 [...] MG le_with e HCl 60 _food} MG Strang Strang No Strang lamoTRIgine lamoTRIgine No 1{table QD lamoTRIgin 200 [...] MG le_with e HCl 60 _food} MG Strang Strang No Strang lamoTRIgine lamoTRIgine No 1{table QD lamoTRIgin 200 [...] MG le_with e HCl 60 _food} MG Strang Strang No Strang lamoTRIgine lamoTRIgine No 1{table QD lamoTRIgin 200 [...] HCl 10 MG l HCl 10 MG Strang Strang No Strang Iron Iron No Iron Supplement Supplement Supplement [...] HCl 10 MG l HCl 10 MG Strang Strang No Strang LORazepam LORazepam No 1{table QD LORazepam 0.5 MG 0.5 MG t_at_be 0.5 MG dtime_a s_neede d} hydrOXYzine hydrOXYzine No 1{table hydrOXYzin HCl 50 MG HCl 50 MG t_as_ne e HCl 50 eded} MG Propranolol Propranolol No 1{table BID Propranolo HCl 20 MG HCl 20 MG t_on_an l HCl 20 _empty_ MG stomach } Gabapentin Gabapentin No Gabapentin 600 MG 600 MG 600 MG Strang Strang No Strang Pantoprazol Pantoprazol No 1{table QD Pantoprazo e [...] MG t_with_ e HCl 75 food} MG Strang Strang No Strang Ziprasidone Ziprasidone No 2{capsu BID Ziprasidon HCl [...] MG t_with_ e HCl 75 food} MG Strang Strang No Strang Ziprasidone Ziprasidone No 2{capsu BID Ziprasidon HCl [...] MG t_with_ e HCl 75 food} MG Strang Strang No Strang Ziprasidone Ziprasidone No 2{capsu BID Ziprasidon HCl [...] HCl 20 MG l HCl 20 MG Strang Strang No Strang Gabapentin Gabapentin No Gabapentin 600 MG 600 [...] Sodium 50 MCG 50 MCG 50 MCG Strang Strang No Strang Pantoprazol Pantoprazol No Pantoprazo e Sodium 40 [...] Gabapentin 600 MG 600 MG 600 MG Strang Strang No Strang Amitiza 24 Amitiza 24 No 1{capsu BID [...] t} le Sodium MG MG 40 MG Strang Strang No Strang Vitamin D3 Vitamin D3 No 1{capsu QD [...] t} le Sodium MG MG 40 MG Strang Strang No Strang Vitamin D3 Vitamin D3 No 1{capsu QD [...] Sodium 50 MCG 50 MCG 50 MCG Strang Strang No Strang Vitamin D3 Vitamin D3 No 1{capsu QD [...] HCl 4 MG n HCl 4 MG Strang Strang No Strang Promethazin Promethazin No QID Promethazi e-DM e-DM ne-DM 6.25-15 6.25-15 6.25-15 MG/5ML MG/5ML MG/5ML Strang Strang No Strang Geodon 60 Geodon 60 No 1{capsu BID [...] t} le Sodium MG MG 40 MG Vital Signs Vital Name Observation Time Observation Value Comments Source height 2022-09-22 11:10:00 61.5 [in_i] Common S [facility] weight 2022-09-22 11:10:00 143 [lb_av] Common S pirit - [facility] temperature 2022-09-22 11:10:00 98 [degF] Common S pirit - [facility] bmi 2022-09-22 11:10:00 26.58 kg/m2 Common S pirit - [facility] blood pressure 2022-09-22 11:10:00 128 mm[Hg] Common Spirit - systolic [facility] blood pressure 2022-09-22 11:10:00 76 mm[Hg] Common [facility] - diastolic [facility] height 2022-09-06 14:30:00 61.5 [in_i] Common S pirit [facility] weight 2022-09-06 14:30:00 145 [lb_av] [facility] temperature 2022-09-06 14:30:00 97.4 [degF] Common S pirit [facility] bmi 2022-09-06 14:30:00 26.95 kg/m2 Common S pirit [facility] blood pressure 2022-09-06 14:30:00 125 mm[Hg] Common Spirit - systolic [facility] blood pressure 2022-09-06 14:30:00 84 mm[Hg] Common Spirit - diastolic [facility] height 2022-07-29 14:30:00 61.5 [in_i] Common S pirit - [facility] weight 2022-07-29 14:30:00 145 [lb_av] Common S pirit - [facility] temperature 2022-07-29 14:30:00 97.0 [degF] Common S pirit [facility] bmi 2022-07-29 14:30:00 26.95 kg/m2 Common S pirit [facility] blood pressure 2022-07-29 14:30:00 128 mm[Hg] Common Spirit - systolic [facility] blood pressure 2022-07-29 14:30:00 82 mm[Hg] Common Spirit - diastolic [facility] Systolic blood 2022-07-26 20:00:00 161 mm[Hg] Univer sity of pressure [facility] Diastolic blood 2022-07-26 20:00:00 94 mm[Hg] Unive rsity of [facility] Heart rate 2022-07-26 20:00:00 78 /min [facility] Oxygen saturation in 2022-07-26 20:00:00 100 /min [facility] blood by [facility] Pulse oximetry Branch Respiratory rate 2022-07-26 19:40:00 16 /min [facility] Body temperature 2022-07-26 16:42:00 36.89 Sarah [facility] Body height 2022-07-26 16:42:00 157.5 cm [facility] Body weight 2022-07-26 16:42:00 72.576 kg [facility] BMI 2022-07-26 16:42:00 29.26 kg/m2 [facility] height 2022-07-09 09:30:00 61.5 [in_i] Common [facility] weight 2022-07-09 09:30:00 145 [lb_av] [facility] temperature 2022-07-09 09:30:00 97.1 [degF] [facility] bmi 2022-07-09 09:30:00 26.95 kg/m2 Common [facility] blood pressure 2022-07-09 09:30:00 100 mm[Hg] Common Spirit - systolic [facility] blood pressure 2022-07-09 09:30:00 68 mm[Hg] Common Spirit - diastolic [facility] height 2022-06-30 15:00:00 61.5 [in_i] Common [facility] weight 2022-06-30 15:00:00 142 [lb_av] [facility] temperature 2022-06-30 15:00:00 97.9 [degF] [facility] bmi 2022-06-30 15:00:00 26.39 kg/m2 [facility] oximetry 2022-06-30 15:00:00 98 % Common [facility] respiratory rate 2022-06-30 15:00:00 16 /min Comm on Spirit - [facility] blood pressure 2022-06-30 15:00:00 145 mm[Hg] Common Spirit - systolic [facility] blood pressure 2022-06-30 15:00:00 70 mm[Hg] Common [facility] - diastolic [facility] Respiratory rate 2022-06-21 12:47:00 16 /min [facility] Oxygen saturation in 2022-06-21 12:47:00 94 /min [facility] Arterial blood by [facility] Pulse oximetry Branch Systolic blood 2022-06-21 12:43:00 102 mm[Hg] Univer sity of [facility] Diastolic blood 2022-06-21 12:43:00 59 mm[facility]Hg[facility] 2022-[facility]-21 12:43:00 70 /min [facility] Body temperature 2022-06-21 12:43:00 35.72 Sarah [facility] weight 2022-06-21 08:14:00 72.666 kg [facility] BMI 2022-06-21 08:14:00 29.30 kg/m2 [facility] Body height 2022-06-17 03:46:00 157.5 cm [facility] height 2022-06-09 13:00:00 61.5 [in_i] [facility] weight 2022-06-09 13:00:00 148 [lb_av] [facility] temperature 2022-06-09 13:00:00 98.7 [degF] [facility] bmi 2022-06-09 13:00:00 27.51 kg/m2 [facility] oximetry 2022-06-09 13:00:00 96 % Common [facility] respiratory rate 2022-06-09 13:00:00 16 /min Comm on [facility] blood pressure 2022-06-09 13:00:00 138 mm[Hg] Common [facility] - systolic [facility] blood pressure 2022-06-09 13:00:00 80 mm[Hg] Common [facility] - diastolic [facility] height 2022-06-09 13:00:00 62 [in_i] Common [facility] weight 2022-06-09 13:00:00 148 [lb_av] Common [facility] temperature 2022-06-09 13:00:00 98.7 [degF] [facility] bmi 2022-06-09 13:00:00 27.07 kg/m2 [facility] oximetry 2022-06-09 13:00:00 96 % [facility] respiratory rate 2022-06-09 13:00:00 16 /min Comm on [facility] blood pressure 2022-06-09 13:00:00 138 mm[Hg] Common [facility] - systolic [facility] blood pressure 2022-06-09 13:00:00 80 mm[Hg] Common [facility] diastolic [facility] WEIGHT 2022-04-14 13:36:00 65.454 kg height 2022-02-09 13:10:00 62 [in_i] Common [facility] weight 2022-02-09 13:10:00 148.8 [lb_av] [facility] temperature 2022-02-09 13:10:00 96.6 [degF] Common [facility] bmi 2022-02-09 13:10:00 27.21 kg/m2 [facility] oximetry 2022-02-09 13:10:00 100 % [facility] respiratory rate 2022-02-09 13:10:00 18 /min Comm on [facility] blood pressure 2022-02-09 13:10:00 131 mm[Hg] Common [facility] - systolic [facility] blood pressure 2022-02-09 13:10:00 69 mm[Hg] Common [facility] - diastolic [facility] HEIGHT 2022-01-04 10:22:00 157.5 cm WEIGHT 2022-01-04 10:22:00 67.087 kg height 2021-10-12 14:10:00 62 [in_i] [facility] weight 2021-10-12 14:10:00 155 [lb_av] [facility] temperature 2021-10-12 14:10:00 98 [degF] [facility] bmi 2021-10-12 14:10:00 28.35 kg/m2 [facility] blood pressure 2021-10-12 14:10:00 121 mm[Hg] Common [facility] - systolic [facility] blood pressure 2021-10-12 14:10:00 76 mm[Hg] Common Spirit - diastolic [facility] Heart rate 2021-09-22 18:07:00 78 /min Universi ty of [facility] Systolic blood 2021-09-22 18:06:00 117 mm[Hg] Univer sity of pressure [facility] Diastolic blood 2021-09-22 18:06:00 65 mm[Hg] Unive rsity of [facility] Oxygen saturation in 2021-09-22 18:06:00 100 /min [facility] Arterial blood by [facility] Pulse oximetry Branch Respiratory rate 2021-09-22 18:05:00 21 /min Univ ersity of [facility] Body temperature 2021-09-22 17:42:00 36.5 Sarah Univ ersity [facility] Body height 2021-09-14 14:52:00 157.5 cm Universi ty [facility] Body weight 2021-09-14 14:52:00 70.3 kg Universi ty [facility] BMI 2021-09-14 14:52:00 28.34 kg/m2 Universi ty [facility] Heart rate 2021-09-22 18:01:00 62 /min Universi [...] 17:56:00 62 mm[Hg] Unive rsity of pressure [place] [facility] Body temperature 2021-09-22 17:42:00 36.5 Sarah Univ ersity of [place] [facility] Body height 2021-09-14 14:52:00 157.5 cm Universi ty of [place] [facility] Body weight 2021-09-14 14:52:00 70.3 kg Universi ty of [place] [facility] BMI 2021-09-14 14:52:00 28.34 kg/m2 Universi ty of [place] [facility] Heart rate 2021-08-20 18:49:00 62 /min Universi ty [facility] [place] [facility] Oxygen saturation in 2021-08-20 18:49:00 100 /min University of Arterial blood by [place] [facility] carlos Pulse oximetry Branch Respiratory rate 2021-08-20 18:47:00 19 /min Univ ersity of [place] [facility] Systolic blood 2021-08-20 18:45:00 127 mm[Hg] Univer sity of pressure [place] [facility] Diastolic blood 2021-08-20 18:45:00 74 mm[Hg] Unive rsity of pressure [place] [facility] Body temperature 2021-08-20 18:33:00 36.39 Sarah Univ ersity of [place] [facility] Body height 2021-08-20 17:49:00 157.5 [...] 18:45:00 127 mm[Hg] Univer sity of pressure [facility] Diastolic blood 2021-08-20 18:45:00 74 mm[Hg] Unive rsity of pressure [facility] Body temperature 2021-08-20 18:33:00 36.39 Sarah [facility] Body height 2021-08-20 17:49:00 157.5 cm [facility] Body weight 2021-08-20 17:49:00 70.308 kg [facility] BMI 2021-08-20 17:49:00 28.35 kg/m2 [facility] Systolic blood 2022-04-14 13:36:00 118 mm[Hg] [facility] Diastolic blood 2022-04-14 13:36:00 77 mm[Hg] [facility] S [facility] Heart rate 2022-04-14 13:36:00 69 /min [facility] Body temperature 2022-04-14 13:36:00 36.67 Sarah [facility] Body weight 2022-04-14 13:36:00 65.454 kg [facility] BMI 2022-04-14 13:36:00 26.39 kg/m2 [facility] Procedures Procedure Date / Time Performing Source Performed Clinician MR LUMBAR SPINE WO CONTRAST 2022-09-23 Jeanne Santanat Uni versity of 21:10:02 S [facility] ASSIGNMENT OF BENEFITS 2022-09-23 Doctor [facility] [place] [facility] y of 20:12:40 Unassigned, No [facility] Branch COMP. METABOLIC PANEL ([id number]) 2022-07-26 Nilay Lennon Un iversity of 18:57:00 [facility] CBC WITH DIFF 2022-07-26 Nilay Lennon [place] of 18:57:00 [facility] URINALYSIS 2022-07-26 Nilay Lennon [place] of 18:57:[address] [facility] [address] ABDOMEN PELVIS WO CONTRAST 2022-07-26 Nilay Lennon iversity of 18:03:32 [facility] CONSENT/REFUSAL FOR DIAGNOSIS AND 2022-07-26 [facility] of TREATMENT 16:32:59 Unassigned, No [facility] HEPATIC FUNCTION PANEL (72056) 2022-06-21 Tika Cummings U niversity of (ALB,T.PRO,BILI 11:05:00 [facility],BU/BC,ALT,AST,ALK PHOS) [place] BASIC METABOLIC PANEL (NA, K, CL, 2022-06-21 Emiliano, [facility] of CO2, GLUCOSE, BUN, CREATININE, CA) 11:05:00 [facility] URINALYSIS 2022-06-20 Emiliano [facility] of 22:41:00 [facility] BASIC METABOLIC PANEL (NA, K, CL, 2022-06-20 Emiliano, [facility] of CO2, GLUCOSE, BUN, CREATININE, CA) 08:54:00 [facility] CBC WITH DIFF 2022-06-20 [facility] 08:54:00 [facility] HEPATIC FUNCTION PANEL (48415) 2022-06-19 Tika Cummings niversity of (ALB,T.PRO,BILI 09:22:00 [facility],BU/BC,ALT,AST,ALK PHOS) [place] BASIC METABOLIC PANEL (NA, K, CL, 2022-06-19 Emiliano, [facility] of CO2, GLUCOSE, BUN, CREATININE, CA) 09:22:00 [facility] CBC WITH DIFF 2022-06-19 Emiliano [facility] of 09:22:00 [facility] BLOOD CULTURE SCREEN 2022-06-19 Mian [facility] of 03:22:00 [facility] BLOOD CULTURE SCREEN 2022-06-19 [facility] of 03:16:00 [facility] XR CHEST 1 VW 2022-06-19 [facility] of 01:50:09 [facility] HEPATIC FUNCTION PANEL (90493) 2022-06-18 Tika Cummings niversity of (ALB,T.PRO,BILI 10:14:00 [facility],BU/BC,ALT,AST,ALK PHOS) Branch PHOSPHORUS 2022-06-17 Herbie Olvera [place] of 09:00:00 [facility] MAGNESIUM 2022-06-17 Herbie Olvera [place] of 09:00:00 [facility] TROPONIN I 2022-06-17 Herbie Olvera [place] of 09:00:00 [facility] THYROID STIMULATING HORMONE 2022-06-17 Wade, [facility] ersity of 09:00:00 [facility] COMP. METABOLIC PANEL (50025) 2022-06-17 Herbie Olvera iversity of 09:00:00 [facility] LIPID PANEL (51714)(TOTAL 2022-06-17 Wade, [facility] of CHOLESTEROL, TRIGLYCERIDES, HDL) 09:00:00 [facility] CBC WITH DIFF 2022-06-17 [facility] 09:00:00 [facility] PROTHROMBIN TIME / INR 2022-06-17 [facility] HEPATITIS B SURFACE ANTIBODY 2022-06-17 Jeuss Mora [facility] versity of 09:00:00 [facility] HEPATITIS B SURFACE ANTIGEN 2022-06-17 Jesus Mora [facility] ersity of 09:00:00 [facility] HCV ANTIBODY 2022-06-17 Jesus Mora [place] of 09:00:00 [facility] HBC ANTIBODY (IGM & IGG) 2022-06-17 Jesus Mora [facility] ity of 09:00:00 [facility] LAMOTRIGINE, LEVEL 2022-06-17 [facility] 09:00:00 [facility] N-TERMINAL PRO-BNP 2022-06-17 [facility] of 09:00:00 [facility] PROCALCITONIN 2022-06-17 [facility] of 09:00:[address] [facility] [address] ABDOMEN PELVIS W CONTRAST 2022-06-17 Hill Sawyer Uni versity of 00:50:10 [facility] CBC WITH DIFF 2022-06-17 Hill Sawyer of 00:24:00 [facility] GLYCOSYLATED HEMOGLOBIN (A1C) 2022-06-17 Herbie Olvera Un iversity of 00:24:00 [facility] HB ECG ROUTINE & RHYTHM STRIP 2022-06-17 Hill Sawyer Un iversity of 00:06:46 [facility] BLOOD CULTURE SCREEN 2022-06-17 Hill Sawyer of 00:00:00 [facility] LIPASE 2022-06-17 Hill Sawyer [place] of 00:00:00 [facility] MAGNESIUM 2022-06-17 Hill Sawyer [place] of 00:00:00 [facility] TROPONIN I 2022-06-17 Hill Sawyer [place] of 00:00:00 [facility] COMP. METABOLIC PANEL (97882) 2022-06-17 Hill Sawyer Un iversity of 00:00:00 [facility] URINALYSIS 2022-06-17 Hill Sawyer [place] of 00:00:00 [facility] COVID-19 (ID NOW RAPID TESTING) 2022-06-17 Hill Sawyer [place] of 00:00:00 [facility] LAB ONLY COVID INTERPRETATION 2022-06-17 Hill Sawyer Un iversity of 00:00:00 [facility] NOTICE OF PRIVACY PRACTICES 2022-06-16 Doctor [facility] ersity of 22:38:45 Unassigned, No [facility] CONSENT/REFUSAL FOR DIAGNOSIS AND 2022-06-16 Doctor [facility] 22:35:24 Unassigned, No [facility] HB CREATININE BLOOD 2021-10-16 Carlton Echeverria [place] f 21:37:00 [facility] NOTICE OF BILLING PRACTICES FOR 2021-10-16 [place] of MEDICARE PATIENTS 21:05:05 Unassigned, No [facility] PATIENT FINANCIAL POLICY 2021-10-16 Doctor Un iversity of 21:04:40 Unassigned, No [facility] NO SHOW OR MISSED APPOINTMENT 2021-10-16 Doctor Un iversity of POLICY ACKNOWLEDGEMENT 21:04:21 Unassigned, No [facility] CONSENT/REFUSAL FOR DIAGNOSIS AND 2021-10-16 Doctor [facility] TREATMENT 21:03:59 Unassigned, No [facility] ASSIGNMENT OF BENEFITS 2021-10-16 Doctor Universit y of 21:03:40 Unassigned, No [facility] COLONOSCOPY 2021-09-22 Carlton Echeverria [place] of 16:38:00 [facility] ESOPHAGOGASTRODUODENOSCOPY 2021-09-22 Carlton Echeverria Unive rsity of 16:38:00 [facility] COLONOSCOPY (ENDO) 2021-09-22 Davin Platt [place] of 16:33:27 [facility] COLONOSCOPY (ENDO) 2021-09-22 Davin Platt [facility] 16:33:27 [facility] EGD (ENDO) 2021-09-22 Davin Platt [facility] 16:23:06 [facility] EGD (ENDO) 2021-09-22 Davin Platt [place] of 16:23:06 [facility] DAY SURGERY - ADC 2021-09-22 [place] of 06:01:00 Unassigned, No [facility] EXTERNAL PROVIDER RECORDS 2021-09-16 Doctor Univer sity of 06:01:00 Unassigned, No [facility] EXTERNAL PROVIDER RECORDS 2021-09-16 Doctor Univer sity of 06:01:00 Unassigned, No [facility] EXTERNAL PROVIDER RECORDS 2021-09-14 Doctor Univer sity of 06:01:00 Unassigned, No [facility] EXTERNAL PROVIDER RECORDS 2021-09-14 Doctor Univer sity of 06:01:00 Unassigned, No [facility] COLONOSCOPY (ENDO) 2021-08-20 Carlton Echeverria [facility] 18:15:37 [facility] COLONOSCOPY 2021-08-20 Carlton Echeverria [facility] 18:01:00 [facility] PATIENT QUESTIONNAIRE 2021-08-20 [place] of 06:01:00 Unassigned, No [facility] EXTERNAL PROVIDER RECORDS 2021-08-03 Doctor Univer sity of 05:01:00 Unassigned, No [facility] EXTERNAL PROVIDER RECORDS 2021-08-03 Doctor Univer sity of 05:01:00 Unassigned, No [facility] Plan of Care Planned Activity Planned Date Details Comments Source Future Scheduled 2031-09-22 Screening for malignant [facility] 00:00:00 neoplasm of colon Medical Ce nter (procedure) [code = 909144368] Future Scheduled 2031-09-22 Screening for malignant [facility] Test 00:00:00 neoplasm of colon Medical Ce nter (procedure) [code = 395714000] Future Scheduled 2031-09-22 Screening for malignant [facility] Test 00:00:00 neoplasm of colon Medical Ce nter (procedure) [code = 264285650] Future Scheduled 2031-09-22 Screening for malignant [facility] Test 00:00:00 neoplasm of colon Medical Ce nter (procedure) [code = 295681252] Future Scheduled 2031-09-22 Screening for malignant [facility] Test 00:00:00 neoplasm of colon Medical Ce nter (procedure) [code = 170396291] Future Scheduled 2031-09-22 Screening for malignant [facility] Test 00:00:00 neoplasm of colon Medical Ce nter (procedure) [code = 420138710] Future Scheduled 2031-09-22 Screening for malignant [facility] Test 00:00:00 neoplasm of colon Medical Ce nter (procedure) [code = 035895292] Future Scheduled 2031-09-22 Screening for malignant [facility] Test 00:00:00 neoplasm of colon Medical Ce nter (procedure) [code = 817091978] Future Scheduled 2031-09-22 Screening for malignant [facility] 00:00:00 neoplasm of colon Medical Ce nter (procedure) [code = 595920723] Future Scheduled 2031-09-22 Screening for malignant [facility] 00:00:00 neoplasm of colon Medical Ce nter (procedure) [code = 008826698] Future Scheduled 2031-09-22 Screening for malignant [facility] 00:00:00 neoplasm of colon Medical Ce nter (procedure) [code = 983896277] Future Scheduled 2031-09-22 Screening for malignant [facility] 00:00:00 neoplasm of colon Medical Ce nter (procedure) [code = 949892530] Future Scheduled 2031-09-22 Screening for malignant [facility] 00:00:00 neoplasm of colon Medical Ce nter (procedure) [code = 010933969] Future Scheduled 2031-09-22 Screening for malignant [facility] 00:00:00 neoplasm of colon Medical Ce nter (procedure) [code = 910750201] Future Scheduled 2023-06-03 Influenza Vaccine (#1) C [...] [facility] 00:00:00 [code = 32635007] Medical Ce nter Future Scheduled 2008-12-26 Lipid panel (procedure) [facility] 00:00:00 [code = 99321976] Medical Ce nter Future Scheduled 2008-12-26 Lipid panel (procedure) [facility] 00:00:00 [code = 20710604] Medical Ce nter Future Scheduled 2008-12-26 Lipid panel (procedure) [facility] 00:00:00 [code = 65779927] Medical Ce nter Future Scheduled 2008-12-26 Lipid panel (procedure) [facility] 00:00:00 [code = 56516898] Medical Ce nter Future Scheduled 2008-12-26 Lipid panel (procedure) [facility] 00:00:00 [code = 36902011] Medical Ce nter Future Scheduled 2008-12-26 Lipid panel (procedure) [facility] 00:00:00 [code = 38749567] Medical Ce nter Future Scheduled 1984-12-26 Screening for malignant [facility] 00:00:00 neoplasm of cervix Medical C enter (procedure) [code = 292838414] Future Scheduled 1984-12-26 Screening for malignant [facility] 00:00:00 neoplasm of cervix Medical C enter (procedure) [code = 331723536] Future Scheduled 1984-12-26 Screening for malignant [facility] 00:00:00 neoplasm of cervix Medical C enter (procedure) [code = 244473288] Future Scheduled 1984-12-26 Screening for malignant [facility] 00:00:00 neoplasm of cervix Medical C enter (procedure) [code = 363465856] Future Scheduled 1984-12-26 Screening for malignant [facility] 00:00:00 neoplasm of cervix Medical C enter (procedure) [code = 861075023] Future Scheduled 1984-12-26 Screening for malignant [facility] 00:00:00 neoplasm of cervix Medical C enter (procedure) [code = 920817417] Future Scheduled 1984-12-26 Screening for malignant [facility] 00:00:00 neoplasm of cervix Medical C enter (procedure) [code = 414154246] Future Scheduled 1982-12-26 DTAP/TDAP/TD VACCINES (1 [facility] [...] screening [facility] er (procedure) [code = 331687222] Future Scheduled 1978-12-[address] [facility] virus screening [facility] (procedure) [code = 068683185] Future Scheduled 1978-12-[address] Human immunodeficiency [facility] 00:[facility] virus screening [facility] (procedure) [code = 126361019] Future Scheduled 1978-12-[address] Human immunodeficiency [facility] 00:00:00 virus screening [facility] Cent [facility] (procedure) [code = 781217399] Future Scheduled 1963 Screening for malignant [facility] 00:00:00 neoplasm of breast Medical C enter (procedure) [code = 747579898] Future Scheduled 1963 CT Colonography (combo) [facility] 00:00:00 [code = CT [facility] ([facility])] Future Scheduled 1963 Screening for malignant [facility] 00:00:00 neoplasm of colon Medical Ce nter (procedure) [code = 069334200] Future Scheduled 1963 Screening for malignant [facility] 00:00:00 neoplasm of colon Medical Ce nter (procedure) [code = 630058095] Future Scheduled 1963 Sigmoidoscopy [facility]code = [facility]] Medical Cent[facility] r Future Scheduled 1963 Screening for malignant [facility] 00:00:00 neoplasm of breast Medical C enter (procedure) [code = 505805569] Future Scheduled 1963 CT Colonography (combo) [facility] 00:00:00 [code = CT Colon[facility] (combo)] Future Scheduled 1963 Screening for malignant [facility] 00:00:00 neoplasm of colon Medical Ce nter (procedure) [code = 292061666] Future Scheduled 1963 Screening for malignant [facility] 00:00:00 neoplasm of colon Medical Ce nter (procedure) [code = 073558100] Future Scheduled 1963 Sigmoidoscopy [facility]code [facility]oscopy] Medical Cent[facility] r Future Scheduled 1963 Screening for malignant [facility] 00:00:00 neoplasm of breast Medical C enter (procedure) [code = 331269884] Future Scheduled 1963 CT Colonography (combo) [facility] 00:00:00 [code = CT [facility] ([facility])] Future Scheduled 1963 Screening for malignant [facility] 00:00:00 neoplasm of colon Medical Ce nter (procedure) [code = 178201028] Future Scheduled 1963 Screening for malignant [facility] 00:00:00 neoplasm of colon Medical Ce nter (procedure) [code = 091855173] Future Scheduled 1963 Sigmoidoscopy [facility]code = [facility] S[facility]oscopy] Medical Cente r Future Scheduled 1963 Screening for malignant [facility] 00:00:00 neoplasm of breast Medical C enter (procedure) [code = 992240148] Future Scheduled 1963 CT Colonography (combo) [facility] 00:00:00 [code = CT [facility] ([facility])] Future Scheduled 1963 Screening for malignant [facility] 00:00:00 neoplasm of colon Medical Ce nter (procedure) [code = 872927378] Future Scheduled 1963 Screening for malignant [facility] 00:00:00 neoplasm of colon Medical Ce nter (procedure) [code = 571402774] Future Scheduled 1963 Sigmoidoscopy [facility]code [facility]oscopy] Medical Cente r Future Scheduled 1963 Screening for malignant [facility] 00:00:00 neoplasm of breast Medical C enter (procedure) [code = 975741927] Future Scheduled 1963 CT Colonography (combo) [facility] 00:00:00 [code = CT Colonography [facility] (combo)] Future Scheduled 1963 Screening for malignant [facility] 00:00:00 neoplasm of colon Medical Ce nter (procedure) [code = 847714946] Future Scheduled 1963 Screening for malignant [facility] 00:00:00 neoplasm of colon Medical Ce nter (procedure) [code = 242743944] Future Scheduled 1963 Sigmoidoscopy [facility]code = [facility]oscopy] Medical Cente r Future Scheduled 1963 Screening for malignant [facility] 00:00:00 neoplasm of breast Medical C enter (procedure) [code = 926211300] Future Scheduled 1963 CT Colonography (combo) [facility] 00:00:00 [code = CT [facility] ([facility])] Future Scheduled 1963 Screening for malignant [facility] 00:00:00 neoplasm of colon Medical Ce nter (procedure) [code = 811234815] Future Scheduled 1963 Screening for malignant [facility] 00:00:00 neoplasm of colon Medical Ce nter (procedure) [code = 698986532] Future Scheduled 1963 Sigmoidoscopy [facility]code [facility]oscopy] Medical Cente r Future Scheduled 1963 Screening for malignant [facility] 00:00:00 neoplasm of breast Medical C enter (procedure) [code = 017675875] Future Scheduled 1963 CT Colonography (combo) [facility] 00:00:00 [code = CT Colonography [facility] (combo)] Future Scheduled 1963 Screening for malignant [facility] 00:00:00 neoplasm of colon Medical Ce nter (procedure) [code = 730487754] Future Scheduled 1963 Screening for malignant [facility] 00:00:00 neoplasm of colon Medical Ce nter (procedure) [code = 885192300] Future Scheduled 1963 S[facility]oidoscopy [facility]oscopy] Medical Cente r Encounters Start End Encounter Admission Attending Care Care Encounter Source Date/Time Date/Time Type Type Clinicians Facility Department ID 2023-06-22 Outpatient Platt, STLMLC [facility] [id number] Common 10:44:01 Davin [id number] [facility] 2023-06-21 Outpatient Platt, STLMLC ST[facility] [id number] Common 13:20:00 Davin [id number] [facility] 2023-05-17 Outpatient Platt, STLMLC STLC [id number] Common 15:09:00 Davin [id number] [facility] 2023-04-20 Outpatient Platt, STLMLC STLC [id number] Common 15:37:00 Davin [id number] [facility] 2023-03-18 Outpatient Platt, STLMLC STLC [id number] Common 10:58:00 Davin 97728 [facility] 2023-01-18 Outpatient Platt, STLMLC STLC [id number] Common 09:19:00 Davin [id number] [facility] 2023-01-03 Outpatient Platt, STLMLC STLMLC [id number] Common 13:22:00 Davin [id number] [facility] 2022-09-20 Outpatient Platt, STLMLC STLMLC [id number] Common 09:30:01 Davin [id number] [facility] 2022-07-09 Outpatient Platt, STLMLC STLMLC [id number] Common 10:44:00 Davin [facility] 2022-07-06 Outpatient Platt, STLMLC STLMLC [id number] Common 09:19:01 Davin [facility] 2022-07-05 Outpatient Platt, STLMLC STLMLC [id number] Common 16:24:02 Davin [facility] 2022-07-01 Outpatient Platt, STLMLC STLMLC [id number] Common 09:38:00 Davin 99827 [facility] 2022-06-29 Outpatient Platt, STLMLC STLMLC [id number] Common 11:52:00 Davin [id number] [facility] 2021-10-28 Outpatient Platt, STLMLC STLMLC [id number] Common 14:00:30 Davin [id number] [facility] 2021-10-28 Outpatient Platt, STLMLC STLMLC [id number] Common 13:48:24 Davin [id number] [facility] 2021-10-28 Outpatient Platt, STLMLC STLMLC [id number] Common 13:04:06 Davin [id number] [facility] 2021-10-28 Outpatient Platt, STLMLC STLMLC [id number] Common 12:33:05 Davin [id number] [facility] 2021-10-28 Outpatient Platt, STLMLC STLMLC [id number] Common 12:32:02 Davin 95595 [facility] 2021-10-28 Outpatient Platt, STLMLC STLMLC [id number] Common 12:11:19 Davin 08005 [facility] 2021-10-28 Outpatient Platt, STLMLC STLMLC [id number] Common 12:06:04 Davin 88563 [facility] 2021-10-28 Outpatient Platt, STLMLC STLMLC [id number] Common 11:57:23 Davin [id number] [facility] 2021-10-28 Outpatient Platt, STLMLC STLMLC [id number] Common 11:38:16 Davin 92768 [facility] 2021-10-28 Outpatient Platt, STLMLC STLMLC [id number] Common 11:16:03 Davin [id number] [facility] 2021-10-28 Outpatient Platt, STLMLC STLMLC [id number] Common 11:11:18 Davin 88399 [facility] 2021-10-28 Outpatient Platt, STLMLC STLMLC [id number] Common 11:09:24 Davin [id number] [facility] 2021-10-28 Outpatient Platt, STLMLC STLMLC [id number] Common 11:08:56 Davin [id number] [facility] 2021-10-28 Outpatient Platt, STLMLC STLMLC [id number] Common 11:08:09 Davin [id number] [facility] 2023-07-04 2023-07-04 Outpatient GC_GCBZW_Ka PRIV PRIV [id number] [facility] 00:00:00 00:00:00 diyala_S [id number] Medic al 2023-07-04 2023-07-04 Outpatient GC_GCBZW_Ka PRIV PRIV [id number] [facility] 00:00:00 00:00:00 diyala_S [id number] Medic al 2023-07-02 2023-07-02 Outpatient GC_GCBZW_Ka PRIV PRIV [id number] [facility] 00:00:00 00:00:00 diyala_S [id number] Medic al 2023-05-19 2023-05-19 Outpatient GC_GCBZW_Ka PRIV PRIV [id number] [facility] 00:00:00 00:00:00 diyala_S [id number] Medic al 2023-05-12 2023-05-12 IHC Kathie 2.16.840. 2.16.840.1. CLAC [id number] [facility] 18:30:00 19:30:00 Physician Stanley 1.928589. 947997.4.6. HKS Medical Visit 4.6.18522 [id number] 2023-05-06 2023-05-06 Care Kathie 2.16.840. 2.16.840.1. CLAC [id number] [facility] 20:00:00 20:30:00 Coordinati Stanley 1.996279. 952901.4.6. 6U6 Medical on Non 4.6.12783 [id number] Billable [id number] 2023-05-03 2023-05-03 JALEEL Visit Kristopher 2.16.840. 2.16.840.1. CL [id number] [facility] 18:00:00 19:00:00 [place] 1.796753. 423069.4.6. CFY Medical 4.6.43733 [id number] 2023-04-21 2023-04-21 Outpatient GC_GCBZW_Ka PRIV PRIV [id number] [facility] 00:00:00 00:00:00 diyala_S [id number] Medic al 2023-04-18 2023-04-18 JALEEL Visit Marlisa 2.16.840. 2.16.840.1. CL [id number] [facility] 15:30:00 16:30:00 [place] 1.113396. 740086.4.6. GZY Medical 4.6.63462 [id number] 2022-11-16 2022-11-16 CAV Marla Abhinav 2.16.840. 2.16.840.1. C [id number] [facility] 21:30:00 22:30:00 1.824928. 375958.4.6. RRG Medical 4.6.52852 [id number] 2022-11-11 2022-11-11 Harmony Dunham [facility] [id number] [address] 00:[facility] 00:00:00 [facility] 2022-11-11 2022-11-11 Harmony Dunham [facility] [id number] 00:00[facility]00 00:00:00 [facility] 2022-11-10 2022-11-10 (TEL) STLMLC STLMLC [id number] Co mmon 00:00:00 00:00:00 [facility] 2022-11-09 2022-11-09 Outpatient Alex_R DMG [facility] [id number] [facility] 00:00:00 00:00:00 [id number] [facility] 2022-11-09 2022-11-09 Outpatient Alex_R DMG [facility] [id number] [facility] 00:00:00 00:00:00 [id number] [facility] 2022-11-09 2022-11-09 Outpatient Alex_R DMG [facility] [id number] [facility] 00:00:00 00:00:00 [id number] [facility] 2022-10-29 2022-10-29 (TEL) STLMLC STLC [id number] Co mmon 00:00:00 00:00:00 [facility] 2022-10-25 2022-10-25 (TEL) STLMLC STLC [id number] Co mmon 00:00:00 00:00:00 [facility] 2022-09-23 2022-09-23 [facility] [id number] Univers 14:15:10 23:59:00 SHAN ity of [facility] 2022-09-23 2022-09-23 [facility] 1.2.840.114 [id number] Univers 14:15:10 23:59:00 Encounter Shan BURRELL 350.1.13.10 ity [facility] 4.2.7.2.686 [facility] [id number] [facility] [address] 2022-09-23 2022-09-23 Orders Doctor RECINOS 1.2.840.114 [id number] 10 00:00:00 00:00:00 Only Unassigned, LEONIDES 350.1.13.10 ity of [place] [facility] 4.2.7.2.686 Faustino as [id number] [address] 2022-09-22 2022-09-22 OFFICE [facility] [id number] Co mmon 00:00:00 00:00:00 VISIT Spirit ESTAB PT - CHI LEVEL 4 [facility] 2022-09-06 2022-09-06 Telephone Oscar, [facility] [id number] 00:00[facility]00 00:00:00 [facility] 2022-09-06 2022-09-06 Telephone [facility] [id number] 00:00[facility]00 00:00:00 [facility] 2022-09-06 2022-09-06 OFFICE [facility] [id number] Co mmon 00:00:00 00:00:00 VISIT Juan C ESTAB PT - CHI LEVEL 4 [facility] 2022-08-11 2022-08-11 Outpatient Patsy [facility] [id number] Univers 00:00:00 00:00:00 SCAR [facility] 2022-07-30 2022-07-30 Outpatient DMG DM [id number] [facility] 00:00:00 00:00:00 [id number] [facility] l Group 2022-07-29 2022-07-29 Outpatient DMG DMG [id number] [facility] 00:00:00 00:00:00 [id number] [facility] 2022-07-29 2022-07-29 OFFICE [facility] [id number] Co mmon 00:00:00 00:00:00 VISIT Juan C ESTAB PT - CHI LEVEL 4 [facility] 2022-07-26 2022-07-26 Emergency X [facility] ERT [id number] Univers 11:44:00 15:33:00 NILAY [facility] 2022-07-26 2022-07-26 Emergency [facility] [id number] [id number] Univers 11:44:00 15:33:00 Nilay BURRELL 350.1.13.10 i ty of [place] [id number] [facility] [address] 2022-07-26 2022-07-26 (TEL) STLMLC STLMLC [id number] Co mmon 00:00:00 00:00:00 [facility] 2022-07-14 2022-07-14 (TEL) STLMLC STLMLC [id number] Co mmon 00:00:00 00:00:00 [facility] 2022-07-09 2022-07-09 OFFICE STLMLC STLMLC [id number] Co mmon 00:00:00 00:00:00 VISIT [facility] LEVEL 4 [facility] 2022-07-06 2022-07-06 (TEL) STLMLC STLMLC [id number] Co mmon 00:00:00 00:00:00 [facility] 2022-07-05 2022-07-05 (TEL) STLMLC STLMLC [id number] Co mmon 00:00:00 00:00:00 [facility] 2022-06-30 2022-06-30 (HOSP F/U) STLMLC STLMLC [id number] Common 00:00:00 00:00:00 [facility] 2022-06-23 2022-06-23 (TEL) STLMLC STLMLC [id number] Co mmon 00:00:00 00:00:00 [facility] 2022-06-22 2022-06-22 Transition MARCELINO Puri 1.2.840.114 [id number] Univers 00:00:00 00:00:00 of Care Spike Leonarda VEE 350.1.13.10 ity DEVONTE 4.2.7.2.686 [facility] [id number] [facility] [address] 2022-06-16 2022-06-21 Inpatient Jason [facility] [id number] Univers 18:03:00 12:23:00 JESUS martinez of [facility] 2022-06-16 2022-06-21 [facility] 1.2.840.1 [id number] [facility] 18:03:00 12:23:00 Encounter Pauly Wan 350.1.1 3.10 ity of Herbie Olvera 4.2.7.2.686 [facility] [id number] Medical 0[address] 2022-06-16 2022-06-16 Orders Doctor GRISEL 1.2.840.114 [id number] Univers 00:00:00 00:00:00 Only Unassigned, LEONIDES 350.1.13.10 ity of [place] [facility] 4.2.7.2.686 [facility] [phone] [facility] [address] 2022-06-09 2022-06-09 OFFICE [facility] STLC [id number] Co mmon 00:00:00 00:00:00 VISIT Juan C [facility] PT - [facility]I LEVEL 4 [facility] 2022-06-09 2022-06-09 (TEL) [facility] STLC [id number] Co mmon 00:00:00 00:00:00 Spirit - [facility]I [facility] 2022-06-09 2022-06-09 SUB ANNUAL STLC STLC [id number] Common 00:00:00 00:00:00 MCR Juan C WELLNESS - CHI VISIT [facility] 2022-05-20 2022-05-20 (TEL) [facility] STLC [id number] Co mmon 00:00:00 00:00:00 Spirit - [facility] 2022-05-18 2022-05-18 Telephone Oscar [facility] [id number] 00:[facility] 00[facility]00[facility]00 [facility] 2022-04-14 2022-04-14 Office ISSAC Krueger [facility] [id number] 13:15:00 14:25:[address] [facility] 2022-02-09 2022-02-09 OFFICE [facility] STLC [id number] Co mmon 00:00:00 00:00:00 VISIT Juan C LEZAMA PT - CHI LEVEL 4 [facility] 2022-01-04 2022-01-04 Outpatient ISSAC KRUEGER[facility] [id number] 09:57:22 12:00:27 [facility] 2021-12-17 2021-12-17 (TEL) [facility] STLC [id number] Co mmon 00:00:00 00:00:00 Spirit - [facility] 2021-10-16 2021-10-16 [facility] [id number] Univers 15:06:23 23:59:00 CARLTON ity [facility] 2021-10-16 2021-10-16 [facility] [id number] [id number] Univers 15:00:00 23:59:00 Encounter Carlton BURRELL 350.1.13.10 ity [facility] [place] [id number] [facility] [address] 2021-10-12 2021-10-12 OFFICE [facility] [id number] Co mmon 00:00:00 00:00:00 VISIT Juan C ESTAB PT - CHI LEVEL 4 [facility] 2021-09-22 2021-09-22 [facility] 1.2.294.984 [id number] Univers 10:16:00 12:21:00 Encounter Carlton BURRELL 350.1.13.10 ity [facility] [place] [id number] [facility] 071 Branch 2021-09-22 2021-09-22 Outpatient Patsy [facility] CANDIS [id number] Univers 10:16:00 12:21:00 [facility] 2021-09-22 2021-09-22 Surgery [facility] 1.2.840.114 [id number] Univers 10:50:00 12:01:00 Carlton BURRELL 350.1.13.10 i ty [facility] [place] [id number] [facility] 020 Branch 2021-09-22 2021-09-22 Orders Doctor RECINOS 1.2.840.114 [id number] Univers 00:00:00 00:00:00 Only Unassigned, LEONIDES 350.1.13.10 ity of [place] [facility] 4.2.7.2.686 Faustino as [id number] [facility] [address] 2021-09-21 2021-09-21 [facility] [id number] Univers 08:15:00 08:15:00 CARLTON ity [facility] 2021-09-04 2021-09-04 (TEL) STLMLC STLMLC [id number] Co mmon 00:00:00 00:00:00 [facility] 2021-08-20 2021-08-20 Surgery [facility] 1.2.840.114 [id number] Univers 12:50:00 14:12:00 Carlton Leonarda [place] 350.1.13.10 i ty [place] [id number] [facility] 020 Branch 2021-08-20 2021-08-20 Outpatient Patsy [facility] [id number] Univers 11:19:00 12:57:00 CARLTON [facility] 2021-08-20 2021-08-20 [facility] 1.2.443.404 [id number] Univers 11:19:00 12:57:00 Encounter Carlton BURRELL 350.1.13.10 [place] [id number] [facility] 071 [address] 2021-08-20 2021-08-20 Orders Doctor RECINOS 1.2.840.114 [id number] Univers 00:00:00 00:00:00 Only Unassigned, LEONIDES 350.1.13.10 ity of [place] [facility] 4.2.7.2.686 Faustino as [id number] [facility] [address] 2021-08-17 2021-08-17 [facility] [id number] Univers 08:45:00 08:45:00 CARLTON ity [facility] 2021-07-13 2021-07-13 (TEL) STLMLC STLMLC [id number] Co mmon 00:00:00 00:00:00 [facility] 2021-07-06 2021-07-06 (TEL) STLMLC STLMLC [id number] Co mmon 00:00:00 00:00:00 [facility] 2021-07-02 2021-07-02 Outpatient STLMLC STLMLC [id number] Common 00:00:00 00:00:00 [facility] 2021-06-16 2021-06-16 Outpatient STLMLC STLMLC [id number] Common 00:00:00 00:00:00 [facility] 2021-06-04 2021-06-04 Outpatient STLMLC STLMLC [id number] Common 00:00:00 00:00:00 [facility] 2021-06-01 2021-06-01 Outpatient STLMLC STLMLC [id number] Common 00:00:00 00:00:00 [facility] 2021-05-27 2021-05-27 Outpatient STLMLC STLMLC [id number] Common 00:00:00 00:00:00 [facility] 2021-05-20 2021-05-20 Outpatient STLMLC STLMLC [id number] Common 00:00:00 00:00:00 [facility] 2021-05-20 2021-05-20 Outpatient STLMLC STLMLC [id number] Common 00:00:00 00:00:00 [facility] 2021-04-08 2021-04-08 Outpatient STLMLC STLMLC [id number] Common 00:00:00 00:00:00 [facility] 2021-04-08 2021-04-08 Outpatient STLMLC STLMLC [id number] Common 00:00:00 00:00:00 [facility] 2021-03-25 2021-03-25 Outpatient STLMLC STLMLC [id number] Common 00:00:00 00:00:00 [facility] 2021-02-16 2021-02-16 Outpatient STLMLC STLMLC [id number] Common 00:00:00 00:00:00 [facility] 2021-02-16 2021-02-16 Outpatient STLMLC STLMLC [id number] Common 00:00:00 00:00:00 [facility] 2020-11-26 2020-11-26 Outpatient STLMLC STLMLC [id number] Common 00:00:00 00:00:00 [facility] 2020-11-20 2020-11-20 Outpatient STLMLC STLMLC [id number] Common 00:00:00 00:00:00 [facility] 2020-11-03 2020-11-03 Outpatient STLMLC STLMLC [id number] Common 00:00:00 00:00:00 [facility] 2020-09-09 2020-09-09 Outpatient STLMLC STLMLC [id number] Common 00:00:00 00:00:00 [facility] 2020-09-08 2020-09-08 Outpatient STLMLC STLMLC [id number] Common 00:00:00 00:00:00 [facility] 2020-08-20 2020-08-20 Outpatient STLMLC STLMLC [id number] Common 00:00:00 00:00:00 [facility] 2020-08-07 2020-08-07 Outpatient STLMLC STLMLC [id number] Common 00:00:00 00:00:00 [facility] 2020-07-24 2020-07-24 Outpatient STLMLC STLMLC [id number] Common 00:00:00 00:00:00 [facility] 2020-07-21 2020-07-21 Outpatient STLMLC STLMLC [id number] Common 00:00:00 00:00:00 [facility] 2020-07-21 2020-07-21 Outpatient STLMLC STLMLC [id number] Common 00:00:00 00:00:00 [facility] 2020-07-18 2020-07-18 Outpatient STLMLC STLMLC [id number] Common 00:00:00 00:00:00 [facility] 2020-07-17 2020-07-17 Outpatient STLMLC STLMLC [id number] Common 00:00:00 00:00:00 [facility] 2020-05-15 2020-05-15 [facility] [id number] Common 14:15:00 14:15:00 [place] [address] [facility] 2020-04-09 2020-04-09 Out[facility] [id number] Common 08:55:00 08:55:00 [place] [address] [facility] 2020-04-07 2020-04-07 Out[facility] [id number] Common 10:34:00 10:34:00 [place] [address] [facility] 2020-02-13 2020-02-13 Out[facility] [id number] Common 15:00:00 15:00:00 [place] [address] [facility] 2020-02-13 2020-02-13 Out[facility] [id number] Common 15:00:00 15:00:00 [place] [address] [facility] 2020-02-08 2020-02-08 Out[facility] [id number] Common 08:47:00 08:47:00 [place] [address] [facility] 2019-11-19 2019-11-19 Out[facility] [id number] Common 13:00:00 13:00:00 [place] [address] [facility] 2019-11-12 2019-11-12 Out[facility] [id number] Common 08:28:00 08:28:00 [place] [address] [facility] 2019-09-11 2019-09-11 Out[facility] [id number] Common 13:30:00 13:30:00 t Bone Bone and Spiri t and Joint [facility] 2019-08-16 2019-08-16 Out[facility] [id number] Common 13:15:00 13:15:00 [place] [address] [facility] 2019-07-31 2019-07-31 Out[facility] [id number] Common 10:00:00 10:00:00 t Bone Bone and Spiri t and Joint [facility] - [facility] 2019-07-30 2019-07-30 Out[facility] [id number] Common 14:13:00 14:13:00 t Bone Bone and Spiri t and Joint [facility] - [facility] 2019-07-27 2019-07-27 Out[facility] [id number] Common 08:51:00 08:51:00 t Bone Bone and Spiri t and Joint [facility] - [facility] 2019-07-10 2019-07-10 Out[facility] [id number] Common 10:00:00 10:00:00 t Bone Bone and Spiri t and Joint [facility] - [facility] 2019-07-10 2019-07-10 Out[facility] [id number] Common 08:30:00 08:30:00 [place] [address] [facility] 2019-07-09 2019-07-09 Out[facility] [id number] Common 10:47:00 10:47:00 [place] [address] [facility] 2019-06-20 2019-06-20 Outpatient [facility] [id number] Common 13:30:00 13:30:00 t Bone Bone and Spiri t and Joint [facility] - [facility] 2019-06-20 2019-06-20 Outpatient [facility] [id number] Common 08:49:00 08:49:00 [place] [address] [facility] 2019-06-18 2019-06-18 Out[facility] [id number] Common 08:30:00 08:30:00 [place] [address] [facility] 2019-05-21 2019-05-21 Outpatient [facility] [id number] Common 13:55:00 13:55:00 [place] [address] [facility] 2019-05-18 2019-05-18 Outpatient [facility] [id number] Common 14:40:00 14:40:00 [place] [address] [facility] 2019-05-17 2019-05-17 Out[facility] [id number] Common 14:00:00 14:00:00 [place] [address] [facility] 2019-02-08 2019-02-08 Out[facility] [id number] Common 16:40:00 16:40:00 [place] [address] [facility] 2019-02-06 2019-02-06 Out[facility] [id number] Common 16:30:00 16:30:00 [place] [address] [facility] 2019-01-30 2019-01-30 Out[facility] [id number] Common 11:28:00 11:28:00 [place] [address] [facility] 2019-01-25 2019-01-25 Out[facility] [id number] Common 14:30:00 14:30:00 [place] [address] [facility] 2018-12-07 2018-12-07 Out[facility] [id number] Common 14:30:00 14:30:00 [place] [address] [facility] 2018-12-05 2018-12-05 Out[facility] [id number] Common 15:15:00 15:15:00 t Specialty/U Sp anitra Specialty rology - [facility] 2018-11-08 2018-11-08 Out[facility] [id number] Common 13:25:00 13:25:00 [place] [address] [facility] 2018-11-01 2018-11-01 Out[facility] [id number] Common 13:15:00 13:15:00 [place] [address] [facility] 2018-10-27 2018-10-27 Out[facility] [id number] Common 12:16:00 12:16:00 [place] [address] [facility] 2018-10-26 2018-10-26 Outpatient [facility] [id number] Common 15:10:00 15:10:00 t Specialty/U Sp anitra Specialty rology - [facility] /[facility] 2018-10-26 2018-10-26 Out[facility] [id number] Common 13:45:00 13:45:00 t Specialty/U Sp anitra Specialty rology [facility] /[facility]rology [facility] 2018-10-09 2018-10-09 Outpatient [facility] [id number] Common 10:45:00 10:45:00 [place] [address] [facility] 2018-09-13 2018-09-13 Out[facility] [id number] Common 09:40:00 09:40:00 [place] [address] [facility] 2018-09-11 2018-09-11 Outpatient [facility] [id number] Common 14:30:00 14:30:00 [place] [address] [facility] Results Test Description Test Time Test Comments Results Result Comments Source BASIC METABOLIC PANEL (NA, K, CL, CO2, GLUCOSE, BUN, 2022-06 11:51:11 CREATININE, CA) Test Item Value Reference Range Interpretation Comme nts NA (test code = 9335246163) 133 mmol/L 135-145 L K (test code = 9736342539) 3.7 mmol/L 3.5-5 CL (test code = 6100495367) 102 mmol/L 98-108 CO2 TOTAL (test code = 9060965011) 24 mmol/L 23-31 AGAP (test code = 9310987428) 2-16 BUN (test code = 9294367774) 3 mg/dL 7-23 L GLUCOSE (test code = 8338639207) 101 mg/dL 70-110 CREATININE (test code = 0.85 mg/dL 0.5-1.04 0835710733) CALCIUM (test code = 0038979152) 8.7 mg/dL 8.6-10.6 eGFR (test code = 2750883587) mL/min/1.73m2 COLTON (test code = COLTON) Association [...] tests). Lab Interpretation (test code = Abnormal 44607-1) [facility]21778[facility] (ALB,T.PRO,BILI T,BU/BC,ALT,AST,ALK PHOS)2022-06-21 11:50:31 Test Item Value Reference Range Interpretation Comments TOTAL BILI (test code = 5268763909) 0.2 mg/dL 0.1-1.1 BILI UNCON (test code = 8297350114) 0.1 mg/dL 0.1-1.1 BILI CONJ (test code = 2745943683) 0.0 mg/dL 0-0.3 T PROTEIN (test code = 4719275703) 6.0 g/dL 6.3-8.2 L ALBUMIN (test code = 4320146366) 3.5 g/dL 3.5-5 ALK PHOS (test code = 9220912866) 583 U/L 34-122 H ALTv (test code = 1742-6) 139 U/L 5-35 H AST(SGOT) (test code = 8090943929) 55 U/L 13-40 H Lab Interpretation (test code = Abnormal 63125-3) [facility] METABOLIC PANEL (NA, K, CL, CO2, GLUCOSE, BUN, CREATININE, CA)2022-06-20 10:31:12 Test Item Value Reference Range Interpretation Comments NA (test code = 135 mmol/L 135-145 4396802489) K (test code = 2.9 mmol/L 3.5-5 LL 6514087780) CL (test code = 107 mmol/L 98-108 9947225015) CO2 TOTAL (test code = 22 mmol/L 23-31 L 0225331441) AGAP (test code = 2-16 7134567717) BUN (test code = 7-23 L 1853352877) GLUCOSE (test code = 103 mg/dL 70-110 9777540239) CREATININE (test code = 0.73 mg/dL 0.5-1.04 3419345315) CALCIUM (test code = 8.4 mg/dL 8.6-10.6 L 3549137283) eGFR (test code = mL/min/1.73m2 8820466078) COLTON (test code = COLTON) Association of [...] tests). Lab Interpretation Abnormal (test code = 55897-4) [facility] acute hospital WITH [id number] 09:21:48 Test Item Value Reference Range Interpretation Comments WBC (test code = See_Comment [Automated 1490-2) message] The sy stem which generated this result transmitted reference range : 4.30 - 11.10 10*3/?L. The reference range was not used to interpret this result as normal/abnormal . RBC (test code = See_Comment L [Automated 329-8) message] The sy stem which generated this [...] RDW-SD (test code = 40.5 fL 39-49.9 10758-4) RDW-CV (test code = 12.6 % 12-15.5 788-0) PLT (test code = See_Comment H [Automated 777-3) message] The sy stem which generated this result transmitted reference range : 166 - 358 10*3/ ?L. The reference r susana was not used to interpret this result as normal/abnormal . MPV (test code = 9.0 fL 9.5-12.9 L 39272-3) NRBC/100 WBC (test See_Comment [Automat ed code = 6539977246) message] The system which generated this result transmitted reference range : 0.0 - 10.0 /100 WBCs. The refer ence range was not u sed to interpret th is result as normal/abnormal . NRBC x10^3 (test code See_Comment [Auto mated = 1637783173) message] The s ystem which generated this result transmitted reference range : 10*3/?L. The reference range was not used to interpret this result as normal/abnormal . GRAN MAT (NEUT) % 67.8 % (test code = 770-8) IMM GRAN % (test code 1.20 % = 4217895483) LYMPH % (test code = 17.9 % 736-9) MONO % (test code = 11.7 % 5905-5) EOS % (test code = 1.2 % 713-8) BASO % (test code = 0.2 % 706-2) GRAN MAT x10^3(ANC) 4.02 10*3/uL 1.88-7.09 (test code = 0694192685) IMM GRAN x10^3 (test 0.07 10*3/uL 0-0.06 H code = 6656232414) LYMPH x10^3 (test code 1.06 10*3/uL 1.32-3.29 L = 731-0) MONO x10^3 (test code 0.69 10*3/uL 0.33-0.92 = 742-7) EOS x10^3 (test code = 0.07 10*3/uL 0.03-0.39 711-2) BASO x10^3 (test code 0.01-0.07 = 704-7) Lab Interpretation Abnormal (test code = 29771-3) [facility], [id number] 21:07:40 Test Item Value Reference Range Interpretation [...] and vomiting.Perfor med By: [facility] [address] [place], [place] [address]S aboratory Director: Joe Martinez MD, PhD [facility] PAN[facility] (64578) (ALB,T.PRO,BILI T,BU/BC,ALT,AST,ALK PHOS)2022-06-18 11:44:08 Test Item Value Reference Range Interpretation Comments TOTAL BILI (test code = 1795752751) 0.4 mg/dL 0.1-1.1 BILI UNCON (test code = 1210988449) 0.1 mg/dL 0.1-1.1 BILI CONJ (test code = 1028062994) 0.0 mg/dL 0-0.3 T PROTEIN (test code = 8668558180) 6.0 g/dL 6.3-8.2 L ALBUMIN (test code = 3306926251) 3.4 g/dL 3.5-5 L ALK PHOS (test code = 5118785312) 608 U/L 34-122 H ALTv (test code = 1742-6) 373 U/L 5-35 H AST(SGOT) (test code = 3903761026) 357 U/L 13-40 H Lab Interpretation (test code = Abnormal 19692-7) [facility] SURFACE [id number] 20:52:12 Test Item Value Reference Range Interpretation Comments HBsAB (test code = Indeterminate 5625333448) HBsAb mIU/mL Semi-Quantitative (test code = 6094101632) COLTON (test code = Unable to determine if COLTON) antibody to Hepatitis B Surface Antigen is present at levels consistent with immunity. ?Patient's immune status should be assessed with other clinical information and/or retesting in 4-6 weeks as clinically indicated. ?If any questions, please contact Clinical Chemistry Director ekg monitor at .Unable to determine if antibody to Hepatitis B Surface Antigen is present at levels consistent with immunity. ?Patient's immune status should be assessed with other clinical information and/or retesting in 4-6 weeks as clinically indicated. ?If any questions, please contact Clinical Chemistry Director ekg monitor at .Unable to determine if antibody to Hepatitis B Surface Antigen is present at levels consistent with immunity. ?Patient's immune status should be assessed with other clinical information and/or retesting in 4-6 weeks as clinically indicated. ?If any questions, please contact Clinical Chemistry Director ekg monitor at .Interpretati on: ?Hepatitis B Surface Antibody ? Negative - Patient is considered to be not immune to infection with HBV. ? ? Positive - Anti-HBs detected at greater than or equal to 12 mIU/mL. ?Patient is considered to be immune to infection with HBV. ? [facility] ANTIBODY (IGM & IGG)2022-06-17 19:04:09 Test Item Value Reference Range Interpretation Comments HBC (test code = 7600909816) Negative HBC Semi-Quantitative (test code = 8162538329) [facility]CV [id number] 19:04:09 Test Item Value Reference Range Interpretation Comments HCV Ab (test code = 18800-9) Negative HCV Semi-Quantitative (test code = 35311-3) [facility]AT[facility] SURFACE [id number] 18:45:46 Test Item Value Reference Range Interpretation Comments HBsAg Semi-Quantitative (test code = Negative Negative 5195-3) [facility]ALCITONIN2022-09-15 16:01:08 Test Item Value Reference Interpretation Comments Range Procalcitonin (test 0.31 ng/mL See_Comment H [Automa carlton code = 5422188444) message] The system which generated this result [...] lung abscess/empyema. For further information please refer to:[email or web address] p Lab Interpretation Abnormal (test code = 53539-5) [facility]. METABOLIC PANEL (30406)2022-06-17 13:10:04 Test Item Value Reference Range Interpretation Comments NA (test code = 141 mmol/L 135-145 8653974140) K (test code = 3.5 mmol/L 3.5-5 4099972533) CL (test code = 111 mmol/L 98-108 H 6413273887) CO2 TOTAL (test code = 24 mmol/L 23-31 0584494507) AGAP (test code = 2-16 2245649704) BUN (test code = 8 mg/dL 7-23 8842739762) GLUCOSE (test code = 97 mg/dL 70-110 6817752320) CREATININE (test code = 0.89 mg/dL 0.5-1.04 7561090366) TOTAL BILI (test code = 1.1 mg/dL 0.1-1.4 4058810540) CALCIUM (test code = 8.2 mg/dL 8.6-10.6 L 7912337981) T PROTEIN (test code = 5.8 g/dL 6.3-8.2 L 3119227991) ALBUMIN (test code = 3.2 g/dL 3.5-5 L 4801578006) ALK PHOS (test code = 766 U/L 34-122 H 1102447647) ALTv (test code = 634 U/L 5-35 H 1742-6) AST(SGOT) (test code = 1987 U/L 13-40 H 2318791545) eGFR (test code = mL/min/1.73m2 9445610442) COLTON (test code = COLTON) Association of [...] tests). Lab Interpretation Abnormal (test code = 86239-8) [facility]ney[facility]YROID STIMULATING [id number] 12:33:26 Test Item Value Reference Range Interpretation Comments TSH (test code = See_Comment [Automated message] [id number]) The system [employer] generated this result transmitted ref erence range: 0.45 - 4 .70 mIU/L. The refe rence range was not u sed to interpret this result as normal/abnor mal. Lab Interpretation (test Normal code = 55128-4) [facility] [id number] 12:15:04 Test Item Value Reference Interpretation Comments Range TROPONIN I (test 0.006 ng/mL See_Comment [Automated code = [id number]) message] The system which generated this result [...] biotin. Lab Interpretation Normal (test code = 07604-7) [facility] [id number] 12:11:41 Test Item Value Reference Range Interpretation Comments NT-proBNP (test code 176 pg/mL See_Comment H [Autom ated = 6421603631) message] The system which generated this result transmitted reference range : <=125. The reference range was not used to interpret this result as normal/abnormal . COLTON (test code = COLTON) Biotin has been reported to cause a negative bias, interpret results relative to patient's use of biotin. Lab Interpretation Abnormal (test code = 98604-9) [facility]neyLIP[facility] PAN[facility] (53274)(TOTAL CHOLESTEROL, TRIGLYCERIDES, HDL)2022-06-17 12:03:42 Test Item Value Reference Range Interpretation Comments CHOL (test code = 152 mg/dL 120-200 4537437110) HDL (test code = 40 mg/dL See_Comment L [Automated message] [id number]) The system [employer] generated this result transmit carlton reference range : >=50. The refer ence range was not u sed to interpret th is result as normal/abnormal . HDLC RATIO (test code = See_Comment [Au tomated message] 5821010957) The system [employer] generated this result transmit carlton reference range : <=4.5. The refe rence range was not u sed to interpret th is result as normal/abnormal . TRIG (test code = 102 mg/dL 30-170 3651377453) LDL CHOL (test code = 92 mg/dL See_Comment [Auto mated message] 21469-1) The system [employer] generated this result transmit carlton reference range : <=160. The refe rence range was not u sed to interpret th is result as normal/abnormal . VLDL (test code = 20 mg/dL 5-60 2314553400) Lab Interpretation (test Abnormal code = 74551-7) [facility]2022-[facility]-15 12:03:42 Test Item Value Reference Range Interpretation Comments MAGNESIUM (test code = 2300692052) 2.0 mg/dL 1.7-2.4 Lab Interpretation (test code = Normal 16659-0) [facility]2022-09-15 12:03:21 Test Item Value Reference Range Interpretation Comments PHOSPHORUS (test code = 7038679345) 3.7 mg/dL 2.5-5 Lab Interpretation (test code = Normal 60867-2) [facility]neyProthrombin Time / [id number] 10:10:50 Test Item Value Reference Range Interpretation [...] tions. Lab Interpretation (test Normal code = 14041-0) [facility]neyCB WITH [id number] 09:47:03 Test Item Value Reference Range Interpretation Comments WBC (test code = See_Comment [Automated 6690-2) message] The sy stem which generated this result transmitted reference range : 4.30 - 11.10 10*3/?L. The reference range was not used to interpret this result as normal/abnormal . RBC (test code = See_Comment L [Automated 419-8) message] The sy stem which generated this [...] RDW-SD (test code = 43.2 fL 39-49.9 11362-8) RDW-CV (test code = 12.6 % 12-15.5 788-0) PLT (test code = See_Comment [Automated 777-3) message] The sy stem which generated this result transmitted reference range : 166 - 358 10*3/ ?L. The reference r susana was not used to interpret this result as normal/abnormal . MPV (test code = 9.0 fL 9.5-12.9 L 94397-2) NRBC/100 WBC (test See_Comment [Automat ed code = 2479252949) message] The system which generated this result transmitted reference range : 0.0 - 10.0 /100 WBCs. The refer ence range was not u sed to interpret th is result as normal/abnormal . NRBC x10^3 (test code See_Comment [Auto mated = 5352429987) message] The s ystem which generated this result transmitted reference range : 10*3/?L. The reference range was not used to interpret this result as normal/abnormal . GRAN MAT (NEUT) % 70.7 % (test code = 770-8) IMM GRAN % (test code 0.50 % = 4213092491) LYMPH % (test code = 15.3 % 736-9) MONO % (test code = 12.0 % 5905-5) EOS % (test code = 1.3 % 713-8) BASO % (test code = 0.2 % 706-2) GRAN MAT x10^3(ANC) 5.85 10*3/uL 1.88-7.09 (test code = 0196030187) IMM GRAN x10^3 (test 0.04 10*3/uL 0-0.06 code = 4045655478) LYMPH x10^3 (test code 1.27 10*3/uL 1.32-3.29 L = 731-0) MONO x10^3 (test code 0.99 10*3/uL 0.33-0.92 H = 742-7) EOS x10^3 (test code = 0.11 10*3/uL 0.03-0.39 711-2) BASO x10^3 (test code 0.01-0.07 = 704-7) Lab Interpretation Abnormal (test code = 89838-8) [facility]neyGLYCOSYLATED HEMOGLOBIN (A1C)2022-06-17 06:45:49 Test Item Value Reference Range Interpretation Comments HGB A1C (test code = 5.4 % 4-5.7 4548-4) COLTON (test code = COLTON) Reference RangesNormal: <5.7%Prediabetes: 5.7 - 6.4%Diabetes: > 6.5% Lab Interpretation (test Normal code = 73348-9) [facility]neyTROPONIN [id number] 00:41:17 Test Item Value Reference Interpretation Comments Range TROPONIN I (test 0.004 ng/mL See_Comment [Automated code = 7264245597) message] The system which generated this result [...] biotin. Lab Interpretation Normal (test code = 00306-7) [facility]neyCBC WITH [id number] 00:35:10 Test Item Value Reference Range Interpretation Comments WBC (test code = See_Comment H [Automated 5290-2) message] The sy stem which generated this result transmitted reference range : 4.30 - 11.10 10*3/?L. The reference range was not used to interpret this result as normal/abnormal . RBC (test code = See_Comment [Automated 009-8) message] The sy stem which generated this [...] RDW-SD (test code = 42.3 fL 39-49.9 10529-8) RDW-CV (test code = 12.6 % 12-15.5 788-0) PLT (test code = See_Comment H [Automated 777-3) message] The sy stem which generated this result transmitted reference range : 166 - 358 10*3/ ?L. The reference r susana was not used to interpret this result as normal/abnormal . MPV (test code = 8.7 fL 9.5-12.9 L 44328-8) NRBC/100 WBC (test See_Comment [Automat ed code = 1134035951) message] The system which generated this result transmitted reference range : 0.0 - 10.0 /100 WBCs. The refer ence range was not u sed to interpret th is result as normal/abnormal . NRBC x10^3 (test code See_Comment [Auto mated = 6895221750) message] The s ystem which generated this result transmitted reference range : 10*3/?L. The reference range was not used to interpret this result as normal/abnormal . GRAN MAT (NEUT) % 73.1 % (test code = 770-8) IMM GRAN % (test code 0.40 % = 0224714346) LYMPH % (test code = 13.3 % 736-9) MONO % (test code = 11.8 % 5905-5) EOS % (test code = 1.1 % 713-8) BASO % (test code = 0.3 % 706-2) GRAN MAT x10^3(ANC) 8.51 10*3/uL 1.88-7.09 H (test code = 5242355307) IMM GRAN x10^3 (test 0.05 10*3/uL 0-0.06 code = 3227382002) LYMPH x10^3 (test code 1.55 10*3/uL 1.32-3.29 = 731-0) MONO x10^3 (test code 1.37 10*3/uL 0.33-0.92 H = 742-7) EOS x10^3 (test code = 0.13 10*3/uL 0.03-0.39 711-2) BASO x10^3 (test code 0.03 10*3/uL 0.01-0.07 = 704-7) Lab Interpretation Abnormal (test code = 99392-7) [facility]neyCOMP. METABOLIC PANEL (01467)2022-06-17 00:30:09 Test Item Value Reference Range Interpretation Comments NA (test code = 135 mmol/L 135-145 4034585080) K (test code = 4.4 mmol/L 3.5-5 1882164511) CL (test code = 102 mmol/L 98-108 5232619762) CO2 TOTAL (test code = 22 mmol/L 23-31 L 3094467257) AGAP (test code = 2-16 6011767280) BUN (test code = 9 mg/dL 7-23 5420965718) GLUCOSE (test code = 113 mg/dL 70-110 H 8443053014) CREATININE (test code = 0.89 mg/dL 0.5-1.04 6809734382) TOTAL BILI (test code = 0.7 mg/dL 0.1-1.6 3684849990) CALCIUM (test code = 9.2 mg/dL 8.6-10.6 6131168532) T PROTEIN (test code = 7.4 g/dL 6.3-8.2 7097291079) ALBUMIN (test code = 4.4 g/dL 3.5-5 7413716250) ALK PHOS (test code = 158 U/L 34-122 H 7504048163) ALTv (test code = 20 U/L 5-35 1742-6) AST(SGOT) (test code = 32 U/L 13-40 0618588663) eGFR (test code = mL/min/1.73m2 6872676254) COLTON (test code = COLTON) Association of [...] tests). Lab Interpretation Abnormal (test code = 33814-8) [facility]2022-09-15 00:30:09 Test Item Value Reference Range Interpretation Comments MAGNESIUM (test code = 5399971564) 2.0 mg/dL 1.7-2.4 Lab Interpretation (test code = Normal 67618-6) [facility]neyLIPASE2022-09-15 00:29:54 Test Item Value Reference Range Interpretation Comments LIPASE (test code = 1049648440) 102 U/L 0-220 Lab Interpretation (test code = Normal 55164-1) [facility]neyPOCT [id number] 22:24:44 Test Item Value Reference Range Interpretation Comments POCT Creatinine (test code = 0.7 mg/dL 0.5-1.7 4033191177) Lab Interpretation (test code = Normal 86570-1) [facility]2019-10-01 06:29:00 Test Item Value Reference Range Interpretation Comments LIPASE (BEAKER) (test code = 749) 48 U/L 8-78 COMPREHENSIVE METABOLIC [id number] 06:29:00 Test Item Value Reference Range Interpretation [...] PATIEN TS. CBC W/PLT COUNT & AUTO [id number] 05:57:00 Test Item Value Reference Range Interpretation [...] 413) RAD, ABDOMEN SERIES W/ UPRIGHT PA [id number] 13:35:00Reason for exam:- >Postoperative distentionShould this be [...] Horne MDReport Verified Date/Time: 07/02/2019 13:35:05 Reading Location: [facility] Reading Room [id number] 06:54:00 Test Item Value Reference Range Interpretation Comments LIPASE (BEAKER) (test code = 749) 56 U/L 8-78 COMPREHENSIVE METABOLIC [id number] 06:54:00 Test Item Value Reference Range Interpretation [...] PATIEN TS. CBC W/PLT COUNT & AUTO [id number] 06:31:00 Test Item Value Reference Range Interpretation [...] = 2801) CBC W/PLT COUNT & AUTO [id number] 06:59:00 Test Item Value Reference Range Interpretation [...] 0-1 PERCENT (BEAKER) (test code = 2801) [id number] 06:51:00 Test Item Value Reference Range Interpretation Comments LIPASE (BEAKER) (test code = 749) 53 U/L 8-78 COMPREHENSIVE METABOLIC [id number] 06:51:00 Test Item Value Reference Range Interpretation [...] PATIEN TS. CBC W/PLT COUNT & AUTO [id number] 06:20:00 Test Item Value Reference Range Interpretation [...] GRANULOCYTES-RELATIVE PERCENT (BEAKER) (test code = 2801) [id number] 05:44:00 Test Item Value Reference Range Interpretation Comments LIPASE (BEAKER) (test code = 749) 52 U/L 8 COMPREHENSIVE METABOLIC [id number] 05:44:00 Test Item Value Reference Range Interpretation [...] S NOT APPLICABLE FOR DIALYSIS PATIEN TS. [id number] 05:21:00 Test Item Value Reference Range Interpretation Comments LIPASE (BEAKER) (test code = 749) 72 U/L 8 COMPREHENSIVE METABOLIC [id number] 05:21:00 Test Item Value Reference Range Interpretation [...] PATIEN TS. CBC W/PLT COUNT & AUTO [id number] 05:14:00 Test Item Value Reference Range Interpretation [...] 0-1 PERCENT (BEAKER) (test code = 2801) [id number] 05:17:00 Test Item Value Reference Range Interpretation Comments LIPASE (BEAKER) (test code = 749) 55 U/L 8-78 COMPREHENSIVE METABOLIC [id number] 05:17:00 Test Item Value Reference Range Interpretation [...] PATIEN TS. CBC W/PLT COUNT & AUTO [id number] 04:59:00 Test Item Value Reference Range Interpretation [...] WBC 0-0 (BEAKER) (test code = 413) [id number] 07:03:00 Test Item Value Reference Range Interpretation Comments LIPASE (BEAKER) (test code = 749) 40 U/L 8-78 COMPREHENSIVE METABOLIC [id number] 07:03:00 Test Item Value Reference Range Interpretation [...] PATIEN TS. CBC W/PLT COUNT & AUTO [id number] 06:03:00 Test Item Value Reference Range Interpretation [...] 0-1 PERCENT (BEAKER) (test code = 2801) [id number] 07:19:00 Test Item Value Reference Range Interpretation Comments LIPASE (BEAKER) (test code = 749) 37 U/L 8-78 COMPREHENSIVE METABOLIC [id number] 07:19:00 Test Item Value Reference Range Interpretation [...] PATIEN TS. CBC W/PLT COUNT & AUTO [id number] 05:30:00 Test Item Value Reference Range Interpretation [...] (BEAKER) (test code = 2801) BASIC METABOLIC [id number] 20:44:00 Test Item Value Reference Range Interpretation [...] 0-0 (BEAKER) (test code = 413) PROTHROMBIN TIME/[id number] 15:49:00 Test Item Value Reference Range Interpretation [...] mechanical heart valves.RAD, CHEST, 1 VIEW, NON [id number] 15:13:00Reason for exam:->preopShould this be performed at the bedside?->YesFINAL REPORT INDICATION: preop COMPARISON: None TECHNIQUE: Single frontal view of the chest. FINDINGS: Lungs and pleura: Clear lungs. No effusion.Heart and mediastinum: Normal heart size. Unremarkable mediastinal contours.Osseous structures: No acute abnormality.Other: None. IMPRESSION: No acute intrathoracic abnormality. Signed: Charmaine Soliz Verified Date/Time: 06/25/2019 15:13:30 Reading Location: [facility] Reading Room [id number] 11:37:00 Test Item Value Reference Range Interpretation Comments LIPASE (BEAKER) (test code = 749) 168 U/L 8-78 H COMPREHENSIVE METABOLIC [id number] 11:37:00 Test Item Value Reference Range Interpretation [...] PATIEN TS. CBC W/PLT COUNT & AUTO [id number] 11:16:00 Test Item Value Reference Range Interpretation [...]
--- NOTE | 2023-07-19 17:20 | RAD REPORT ---
EXAM DESCRIPTION: CT - Abdomen Pelvis W Contrast - 07/19/2023 4:34 pm CLINICAL HISTORY: Abd pain;Nausea / vomiting COMPARISON: Abdomen Pelvis W Contrast dated 04/28/2023; Abdomen Pelvis W Contrast dated 06/25/2019 ; Abdomen Pelvis W Contrast dated 12/07/2017; Abdomen Pelvis W Contrast dated 09/16/2016 TECHNIQUE: Thin cut axial CT imaging of the abdomen and pelvis was performed following intravenous a dministration of 100 mL Isovue 300. Multiplanar reformats were generated and reviewed. All CT scans are performed using dose optimization technique as appropriate and may include automated exposure control or mA/KV adjustment according to patient size. FINDINGS: No suspicious findings in the lung bases. The liver, spleen, adrenal glands, and pancreas show no suspicious findings. Gallbladder were surgica lly removed. Prominent common bile duct and mild central intrahepatic biliary ductal dilation nonspec ific but may relate to sequelae of cholecystectomy. Symmetric renal function is seen with no hydronephrosis or suspicious renal mass. Ovoid structure which may be in the lumen of the excluded stomach, axial image 25, indeterminate. No dilated bowel loops. Bowel wall thickening and mucosal hyperenhancement involving most of the ascendi ng colon through proximal descending colon. Sequelae of gastric bypass. No free air, free fluid or in flammatory stranding. No hernia, mass or bulky lymphadenopathy. The urinary bladder is without significant finding. No suspicious bony findings. Multiple healing/healed rib fractures. IMPRESSION: Bowel wall thickening and mucosal hyperenhancement involving most of the ascending colon through proximal descending colon. Findings suggest segmental colitis. Small ovoid indeterminate structure within the lumen of the excluded stomach. This may relate to a pr ior procedure, or an ingested object. Please correlate clinically. Prominent central intrahepatic biliary radicles, may relate to status post cholecystectomy.
--- NOTE | 2023-07-19 17:30 | EDPHYS ---
Physician Documentation [facility] Name: Janice Bosch Age: 57 yrs Sex: Female : 1965 Arrival Date: 07/19/2023 Time: 14:21 Bed 8 Private MD: ED Physician Dale Varghese HPI: 07/19 14:49 This 57 yrs old Female presents to ER via Wheelchair with complaints of rn Nausea/Vomiting/Diarrhea. 14:49 The patient presents to the emergency department with nausea, vomiting, diarrhea, rn abdominal pain. Onset: The symptoms/episode began/occurred 4 day(s) ago. Possible causes: unknown. The symptoms are aggravated by nothing. The symptoms are alleviated by nothing. Associated signs and symptoms: Pertinent positives: abdominal pain, diarrhea, nausea, vomiting, Pertinent negatives: fever, GI bleeding. Severity of symptoms: At their worst the symptoms were moderate in the emergency department the symptoms are unchanged. The patient has experienced a previous episode. The patient has not recently seen a physician. Historical: - Allergies: 14:39 Reglan; ap3 14:39 Requip; ap3 - PMHx: 14:39 Bipolar disorder; bowel obstruction; chronic back pain; Fibromyalgia; Hypertension; ap3 ibs; Migraines; - Immunization history:: Adult Immunizations up to date. - Family history:: not pertinent. - Social history:: Smoking status: Patient denies any tobacco usage or history of. - Hospitalizations: : No recent hospitalization is reported. ROS: 14:49 Constitutional: Negative for fever, chills, and weight loss, Eyes: Negative for injury, rn pain, redness, and discharge, Cardiovascular: Negative for chest pain, palpitations, and edema, Respiratory: Negative for shortness of breath, cough, wheezing, and pleuritic chest pain, Abdomen/GI: Positive for abdominal pain/nausea/vomiting/diarrhea MS/Extremity: Negative for injury and deformity, Skin: Negative for injury, rash, and discoloration, Neuro: Positive for generalized weakness Exam: 14:49 Constitutional: This is a well developed, well nourished patient who is awake, rn somnolent, but sitting upright in wheelchair. Head/Face: Normocephalic, atraumatic. Cardiovascular: Regular rate and rhythm. No pulse deficits. Respiratory: No increased work of breathing, no retractions or nasal flaring. Abdomen/GI: soft, + epigastric tenderness, no rebound Skin: Warm, dry MS/ Extremity: Pulses equal, no cyanosis. Neuro: Awake and somnolent, GCS 15, moves all 4 extremities. Vital Signs: 14:37 BP 125 / 86; Pulse 76; Resp 18; Pulse Ox 98% ; ap3 16:02 Resp 16; Temp 98; Pain 0/10; ll1 17:48 BP 134 / 77; Pulse 72; Resp 17; Pulse Ox 99% ; ll1 18:43 BP 134 / 80; Pulse 72; Resp 16; Temp 97.6(TE); Pulse Ox 99% on R/A; ll1 19:55 BP 122 / 68; Pulse 71; Resp 14; Pulse Ox 99% ; bp 16:02 Pain Scale: Adult ll1 MDM: 14:26 Patient medically screened. rn 15:44 ED course: patient improved with fluids and phenergan. rn 17:24 Differential diagnosis: Nonspecific abd pain, diverticulitis, viral gastroenteritis, rn gastroenteritis, colitis. 17:27 Data reviewed: vital signs, nurses notes, lab test result(s), radiologic studies, CT rn scan, and as a result, I will discharge patient. Counseling: I had a detailed discussion with the patient and/or guardian regarding the historical points, exam findings, and any diagnostic results supporting the discharge/admit diagnosis, lab results, radiology results, the need for further work-up and treatment in the hospital. Response to treatment: the patient's symptoms have mildly improved after treatment, and as a result, I will admit patient. 07/19 14:42 Order name: CBC with Diff; Complete Time: 15:39 rn 07/19 14:42 Order name: CMP; Complete Time: 15:39 rn 07/19 14:42 Order name: Lipase; Complete Time: 15:39 rn 07/19 14:42 Order name: Urinalysis w/ reflexes; Complete Time: 15:39 rn 07/19 14:42 Order name: SARS RAPID; Complete Time: 15:39 rn 07/19 14:42 Order name: Flu; Complete Time: 15:39 rn 07/19 17:40 Order name: C.difficile GDH Ag EDMS 07/19 17:40 Order name: CBC with Automated Diff EDMS 07/19 17:40 Order name: CBC with Automated Diff EDMS 07/19 17:40 Order name: Comprehensive Metabolic Panel EDMS 07/19 17:40 Order name: Comprehensive Metabolic Panel EDMS 07/19 17:40 Order name: Protime (+INR) EDMS 07/19 17:40 Order name: Protime (+INR) EDMS 07/19 17:40 Order name: PTT, Activated Partial Thromb EDMS 07/19 17:40 Order name: PTT, Activated Partial Thromb EDMS 07/19 17:40 Order name: Fecal Leukocyte Stain EDMS 07/19 17:40 Order name: Stool Culture EDMS 07/19 14:42 Order name: CT Abd/Pelvis - IV Contrast Only; Complete Time: 17:22 rn 07/19 14:42 Order name: IV Saline Lock; Complete Time: 14:49 rn 07/19 14:42 Order name: Labs collected and sent; Complete Time: 15:03 rn Administered Medications: 15:25 Drug: NS 0.9% IV 1000 ml IV at 1 bolus Per protocol; 1000 mL bolus Route: IV; Rate: 1 ll1 bolus; Site: right forearm; 17:08 Follow up: Response: No adverse reaction; IV Status: Completed infusion; IV Intake: ll1 1000ml 15:25 Drug: Famotidine IVP 20 mg IVP once; dilute with 10 mL 0.9% NaCl; give over 2 minutes ll1 Route: IVP; Site: right forearm; 16:02 Follow up: Response: No adverse reaction ll1 15:25 Drug: Promethazine IVP 12.5 mg IVP once Route: IVP; Site: right forearm; ll1 16:01 Follow up: Response: No adverse reaction; Nausea is decreased ll1 17:48 Drug: metroNIDAZOLE IVPB 500 mg 100 ml IVPB at 200 ml/hr once over 30 mins Volume: 100 ll1 ml; Route: IVPB; Rate: 200 ml/hr; Infused Over: 30 mins; Site: right antecubital; 18:42 Follow up: Response: No adverse reaction; IV Status: Completed infusion; IV Intake: ll1 200ml 18:43 Drug: Ciprofloxacin IVPB 400 mg 200 ml IVPB once over 60 mins Volume: 200 ml; Route: ll1 IVPB; Infused Over: 60 mins; Site: right antecubital; 19:59 Follow up: IV Status: Completed infusion; IV Intake: 200ml bp Disposition Summary: 07/19/23 17:29 Hospitalization Ordered Notes: Hospitalization Status: Inpatient Admission rn Location: Telemetry/MedSurg (Inpatient) rn Condition: Stable rn Problem: new rn Symptoms: have improved rn Bed/Room Type: Standard rn Provider: Sam Strong(07/19/23 17:36) rn Room Assignment: 220(07/19/23 18:51) bd Diagnosis - Infectious gastroenteritis and colitis, unspecified rn - Dehydration rn - Muscle weakness (generalized) rn Forms: - Medication Reconciliation Form rn - SBAR form rn - Leadership Thank You Letter rn Signatures: Dispatcher [employer] EDNelia Beckham Roman, MD MD rn Paola Castro RN RN ap3 Shade Storm RN RN ll1 Zaki Lozano RN bp Corrections: (The following items were deleted from the chart) 17:36 17:29 Prashanth Ziegler rn rn 18:51 17:29 rn bd
--- NOTE | 2023-07-19 17:30 | ER ---
Nurse's Notes [facility] Name: Janice Bosch Age: 57 yrs Sex: Female : 1965 Arrival Date: 07/19/2023 Time: 14:21 Bed 8 Private MD: Diagnosis: Infectious gastroenteritis and colitis, unspecified;Dehydration;Muscle weakness (generalized) Presentation: 07/19 14:37 Chief complaint: Patient states: she has been having nausea, vomiting and diarrhea for ap3 approx 4-5 days now. patient reports feeling weak and not having much appetite. Coronavirus screen: At this time, the client does not indicate any symptoms associated with coronavirus-19. Ebola Screen: No symptoms or risks identified at this time. Initial Sepsis Screen: Does the patient meet any 2 criteria? No. Patient's initial sepsis screen is negative. Does the patient have a suspected source of infection? Yes: Acute abdominal pain. Risk Assessment: Do you want to hurt yourself or someone else? Patient reports no desire to harm self or others. Onset of symptoms was July 14, 2023. 14:37 Method Of Arrival: Wheelchair ap3 14:37 Acuity: BONITA 3 ap3 Triage Assessment: 14:39 General: Appears uncomfortable, ill, Behavior is calm, cooperative, appropriate for ap3 age. General: Reports fatigue for. Pain: Complains of pain in abdomen Pain began 4-5 days ago. Neuro: Level of Consciousness is awake, alert, obeys commands, Oriented to person, place, time, situation, Weakness. Cardiovascular: Patient's skin is warm and dry. Respiratory: Airway is patent Respiratory effort is even, unlabored, Respiratory pattern is regular, symmetrical. GI: Reports nausea, vomiting. Historical: - Allergies: 14:39 Reglan; ap3 14:39 Requip; ap3 - PMHx: 14:39 Bipolar disorder; bowel obstruction; chronic back pain; Fibromyalgia; Hypertension; ap3 ibs; Migraines; - Immunization history:: Adult Immunizations up to date. - Family history:: not pertinent. - Social history:: Smoking status: Patient denies any tobacco usage or history of. - Hospitalizations: : No recent hospitalization is reported. Screenin:40 Abuse screen: Denies threats or abuse. Nutritional screening: Has had N/V for 3 or more ap3 days. Tuberculosis screening: No symptoms or risk factors identified. 19:58 [facility] ED Fall Risk Assessment (Adult) History of falling in the last 3 months, bp including since admission No falls in past 3 months (0 pts). Assessment: 14:54 Reassessment: No changes from previously documented assessment. Patient and/or family ll1 updated on plan of care and expected duration. Pain level reassessed. Patient is alert, oriented x 3, equal unlabored respirations, skin warm/dry/pink. 15:25 Reassessment: No changes from previously documented assessment. Patient and/or family ll1 updated on plan of care and expected duration. Pain level reassessed. Patient is alert, oriented x 3, equal unlabored respirations, skin warm/dry/pink. 16:01 Reassessment: No changes from previously documented assessment. Patient and/or family ll1 updated on plan of care and expected duration. Pain level reassessed. Patient is alert, oriented x 3, equal unlabored respirations, skin warm/dry/pink. Patient states feeling better. 17:08 Reassessment: No changes from previously documented assessment. Patient and/or family ll1 updated on plan of care and expected duration. Pain level reassessed. Patient is alert, oriented x 3, equal unlabored respirations, skin warm/dry/pink. 17:49 Reassessment: No changes from previously documented assessment. Patient and/or family ll1 updated on plan of care and expected duration. Pain level reassessed. Patient is alert, oriented x 3, equal unlabored respirations, skin warm/dry/pink. 18:43 Reassessment: No changes from previously documented assessment. Patient and/or family ll1 updated on plan of care and expected duration. Pain level reassessed. Patient is alert, oriented x 3, equal unlabored respirations, skin warm/dry/pink. Vital Signs: 14:37 BP 125 / 86; Pulse 76; Resp 18; Pulse Ox 98% ; ap3 16:02 Resp 16; Temp 98; Pain 0/10; ll1 17:48 BP 134 / 77; Pulse 72; Resp 17; Pulse Ox 99% ; ll1 18:43 BP 134 / 80; Pulse 72; Resp 16; Temp 97.6(TE); Pulse Ox 99% on R/A; ll1 19:55 BP 122 / 68; Pulse 71; Resp 14; Pulse Ox 99% ; bp 16:02 Pain Scale: Adult ll1 ED Course: 14:26 Patient arrived in ED. kj1 14:26 Dale Varghese MD is Attending Physician. rn 14:39 Triage completed. ap3 14:40 Arm band placed on right wrist. ap3 14:49 Shade Storm, LEONID is Primary Nurse. ll1 14:54 Flu Sent. ld1 14:54 SARS RAPID Sent. ld1 14:55 No provider procedures requiring assistance completed. ll1 15:03 Inserted saline lock: 22 gauge in right forearm, using aseptic technique. Blood ds4 collected. 15:07 Urine collected: clean catch specimen, clear. tm3 15:25 Flu Sent. ll1 16:01 Patient has correct armband on for positive identification. Bed in low position. ll1 Cardiac monitoring not applicable on this patient. 16:36 CT Abd/Pelvis - IV Contrast Only In Process Unspecified. EDMS 17:29 Prashanth Ziegler is Hospitalizing Provider. rn 17:36 Sam Strong MD is Hospitalizing Provider. rn 19:06 Primary Nurse role handed off by Shade Storm, LEONID bp 19:06 Zaki Lozano, LEONID is Primary Nurse. bp 19:58 Provided Education on: N/A. bp 19:58 Patient admitted, IV remains in place. bp Administered Medications: 15:25 Drug: NS 0.9% IV 1000 ml IV at 1 bolus Per protocol; 1000 mL bolus Route: IV; Rate: 1 ll1 bolus; Site: right forearm; 17:08 Follow up: Response: No adverse reaction; IV Status: Completed infusion; IV Intake: ll1 1000ml 15:25 Drug: Famotidine IVP 20 mg IVP once; dilute with 10 mL 0.9% NaCl; give over 2 minutes ll1 Route: IVP; Site: right forearm; 16:02 Follow up: Response: No adverse reaction ll1 15:25 Drug: Promethazine IVP 12.5 mg IVP once Route: IVP; Site: right forearm; ll1 16:01 Follow up: Response: No adverse reaction; Nausea is decreased ll1 17:48 Drug: metroNIDAZOLE IVPB 500 mg 100 ml IVPB at 200 ml/hr once over 30 mins Volume: 100 ll1 ml; Route: IVPB; Rate: 200 ml/hr; Infused Over: 30 mins; Site: right antecubital; 18:42 Follow up: Response: No adverse reaction; IV Status: Completed infusion; IV Intake: ll1 200ml 18:43 Drug: Ciprofloxacin IVPB 400 mg 200 ml IVPB once over 60 mins Volume: 200 ml; Route: ll1 IVPB; Infused Over: 60 mins; Site: right antecubital; 19:59 Follow up: IV Status: Completed infusion; IV Intake: 200ml bp Medication: 14:55 VIS not applicable for this client. ll1 Intake: 17:08 IV: 1000ml; Total: 1000ml. ll1 18:42 IV: 200ml; Total: 1200ml. ll1 19:59 IV: 200ml; Total: 1400ml. bp Outcome: 17:29 Decision to Hospitalize by Provider. rn 19:54 Admitted to Med/surg accompanied by nurse, via stretcher, room 220, with chart, Report bp called to ESVIN JAQUEZ 19:54 Condition: stable 19:54 Instructed on the need for admit, 19:59 Patient left the ED. bp Signatures: Dispatcher [employer] EDMS Rojas Shelton tm3 Dale Varghese MD MD rn Swanson, Donovan ds4 Zaki Lozano RN RN bp Paola Castro RN RN ap3 Eleonora Gabriel kj1 Shade Storm RN RN ll1 Indira Brown, LEONID RN ld1 Corrections: (The following items were deleted from the chart) 19:02 18:43 BP 134 / 80; Pulse 72bpm; Resp 16bpm; Pulse Ox 99% RA; ll1 ll1
[2023-07-19] MEDS ORDERED: ACETAMINOPHEN 500 MG TAB PO PRN (17:35)
--- NOTE | 2023-07-19 17:50 | P.HP ---
Certification for Inpatient Patient admitted to: Inpatient With expected LOS: >2 Midnights Patient will require the following post-hospital care: None Practitioner: I am a practitioner with admitting privileges, knowledge of patient current condition, hospital course, and medical plan of care. Services: Services provided to patient in accordance with Admission requirements found in Title 42 Section 412.3 of the Code of Federal Regulations Patient History Date of Service: 07/19/23 Allergies metoclopramide HCl [From Reglan] Allergy (Mild, Verified 01/05/23 08:48) Hives/Rash ropinirole HCl [From Requip] Allergy (Mild, Verified 01/05/23 08:48) Nausea/Vomiting Home Medications: Tizanidine [Zanaflex*] 4 mg PO BEDTIME PRN PRN 07/21/20 Diclofenac Sodium 50 mg PO Q8H 11/17/22 LORazepam [Ativan*] 1 mg PO BID PRN 11/17/22 Venlafaxine HCl [Effexor Xr] 225 mg PO DAILY 11/17/22 Levothyroxine [Synthroid*] 50 mcg PO [id number] 01/04/23 Pantoprazole [Protonix Tab*] 40 mg PO BEDTIME 01/04/23 Propranolol HCl 20 mg PO BID 01/04/23 hydrOXYzine HCL [Atarax] 50 mg PO BIDP PRN 01/04/23 Cholecalciferol (Vitamin D3) [Vitamin D3] 5,000 unit PO DAILY 01/05/23 Hydrocodone 10/APAP 325 [[place] 10/325*] 1 tab PO Q6HP PRN 04/13/23 Meclizine HCl [Antivert] 25 mg PO Q8HP PRN 04/13/23 Docusate [Colace Cap*] 100 mg PO BID 04/24/23 Mecobalamin [B12 Active] 3,000 mcg PO DAILY 04/24/23 Ped Multivit 43/Iron Fumarate [Flintstones Complete Chew Tab] 1 tab PO DAILY 04/24/23 Gabapentin 300 mg PO TID #90 tab 04/26/23 Ziprasidone [Geodon*] 60 mg PO BEDTIME #90 cap 04/26/23 lamoTRIgine [Lamotrigine] 200 mg PO DAILY 04/29/23 Cefpodoxime Proxetil 100 mg PO BID #6 tab 04/30/23 - Past Medical/Surgical History Diabetic: No -: Intestinal blockage -: Bipolar disorder, , depression -: Fibromyalgia -: Hypertension -: Migraine headache -: IBS -: Anxiety disorder -: Insomnia -: bulging disc -: 2 csec -: hyst -: appy -: anderson -: gastric bypass -: L fractured wrist w/ plates and screws - Family History Mother Medical History: Heart disease, Cancer Notes: cardiac stent. lung cancer - Social History Alcohol use: No CD- Drugs: No Caffeine use: Yes Physical Examination - Studies Laboratory Data (last 24 hrs) 07/19/23 07/19/23 14:57 14:57 WBC 7.10 Hgb 12.4 Hct 36.9 Plt Count 640 H Sodium 137 Potassium 3.4 L BUN 10 Creatinine 1.24 H Glucose 134 H Total Bilirubin 0.5 AST 12 L ALT 36 Alkaline Phosphatase 168 H Lipase 19 Microbiology Data (last 24 hrs): 07/19/23 14:55 Nasopharnyx Influenza Type A Antigen Screen - Final 07/19/23 14:55 Nasopharnyx Influenza Type B Antigen Screen - Final Assessment & Plan - Advance Directives Does patient have a Living Will: No Does patient have a Durable POA for Healthcare: No
[2023-07-19] MEDS ORDERED: CIPROFLOXACIN 400mg IV 400 MG/200 ML BAG IV ONE (17:53)
[2023-07-19] MEDS ORDERED: Levofloxacin500mg IV 500 MG/100 ML BAG IV SCH (18:00)
[2023-07-19] MEDS ORDERED: TIZANIDINE 4 MG TABLET PO PRN (18:54)
[2023-07-19] MEDS ORDERED: hydrOXYzine HCL 25 MG TAB PO PRN (18:54)
[2023-07-19] MEDS ORDERED: MECLIZINE HCL 12.5 MG TAB PO PRN (18:54)
[2023-07-19] MEDS ORDERED: LORAZEPAM 0.5 MG TABLET PO PRN (18:54)
[2023-07-19] MEDS ORDERED: DICLOFENAC SODIUM 50 MG PO SCH (19:00)
[2023-07-19] MEDS: NA CHLORIDE 0.9% 1,000 ML IV SCH (21:25)
[2023-07-19] MEDS: METRONIDAZOLE 500mg IVPB 500 MG/100 ML BAG IV SCH (21:26)
[2023-07-19] MEDS: PROPRANOLOL HCL 10 MG TAB PO SCH (21:27)
[2023-07-19] MEDS: PANTOPRAZOLE 40MG TABLET PO SCH (21:27)
[2023-07-19] MEDS: DOCUSATE NA 100 MG CAP PO SCH (21:27)
[2023-07-19] MEDS: METHYLPREDNISOLONE 125 MG INJ IV SCH (21:28)
[2023-07-19] MEDS: ZIPRASIDONE 20 MG CAP PO SCH (21:33)
[2023-07-19] MEDS: GABAPENTIN 300 MG CAP PO SCH (21:40)
[2023-07-19] MEDS: DICLOFENAC 50 MG PO SCH (21:54)
[2023-07-19] MEDS: ONDANSETRON 4 MG/2 ML VIAL IV PRN (21:59)
[2023-07-19] MEDS: MORPHINE 2 MG/ML SYR IV PRN (21:59)
[2023-07-20 03:45] LABS: Protime INR 0.99
[2023-07-20 03:46] LABS: Absolute Lymphocytes (CBC) 0.5 K/uL (0.7-4.9); Hematocrit 31.9 % (36.0-45.0); Lymphocytes % 16.2 % (15.3-44.8); MCV 90.9 fL (80-100); MPV 6.7 fL (7.6-11.3); Platelets 541 thou/uL (152-406); RBC Red Blood Cell Count 3.51 M/uL (3.86-4.86)
[2023-07-20 03:47] LABS: Albumin 2.2 g/dL (3.4-5.0); Bilirubin Total 0.5 mg/dL (0.2-1.0); Potassium 3.2 mEq/L (3.5-5.1); Protein, Total 4.8 g/dL (6.4-8.2)
[2023-07-20] MEDS: NA CHLORIDE 0.9% 1,000 ML IV SCH ×2 (04:36→12:20)
[2023-07-20] MEDS: DICLOFENAC 50 MG PO SCH ×2 (06:00→14:00)
[2023-07-20] MEDS: HYDROCODONE/APAP 10/325 TAB PO PRN ×2 (06:06→12:11)
[2023-07-20] MEDS: LEVOTHYROXINE SOD 0.05 MG TABLET PO SCH (06:07)
[2023-07-20] MEDS: METHYLPREDNISOLONE 125 MG INJ IV SCH ×4 (06:07→17:29)
[2023-07-20] MEDS: METRONIDAZOLE 500mg IVPB 500 MG/100 ML BAG IV SCH ×4 (06:07→17:29)
[2023-07-20] MEDS: DOCUSATE NA 100 MG CAP PO SCH ×2 (08:01→20:45)
[2023-07-20] MEDS: GABAPENTIN 300 MG CAP PO SCH ×3 (08:01→20:45)
[2023-07-20] MEDS: lamoTRIgine 100 MG TAB PO SCH (08:01)
[2023-07-20] MEDS: VENLAFAXINE HCL XR 75 MG CAP PO SCH (08:01)
[2023-07-20] MEDS: PROPRANOLOL HCL 10 MG TAB PO SCH ×2 (08:01→20:45)
[2023-07-20] MEDS: MORPHINE 2 MG/ML SYR IV PRN ×3 (09:34→20:46)
[2023-07-20] MEDS: ONDANSETRON 4 MG/2 ML VIAL IV PRN (09:39)
[2023-07-20] MEDS: Levofloxacin 750mg IV 750 MG/150 ML BAG IV SCH (16:04)
[2023-07-20] MEDS ORDERED: DIPHENHYDRAMINE 25 MG TAB/CAP PO PRN (16:22)
--- NOTE | 2023-07-20 16:48 | P.CNS ---
Date of Consult: 07/20/23 Reason for Consult: colitis Chief Complaint: nausea and vomiting History of Present Illness: Patient is a 57 yo female with a past medical history of IBS, bipolar disorder, fibromyalgia, hypertension, migraines who presented to the ED with complaints of nausea and vomiting. CT abdomen pelvis showing "Bowel wall thickening and mucosal hyperenhancement involving most of the ascending colon through proximal descending colon. Findings suggest segmental colitis. Small ovoid indeterminate structure within the lumen of the excluded stomach. This may relate to a prior procedure, or an ingested object. Please correlate clinically. Prominent central intrahepatic biliary radicles, may relate to status post cholecystectomy." Infectious origin suspected and infectious disease was consulted. Allergies metoclopramide HCl [From Reglan] Allergy (Mild, Verified 01/05/23 08:48) Hives/Rash ropinirole HCl [From Requip] Allergy (Mild, Verified 01/05/23 08:48) Nausea/Vomiting Home medications list reviewed: Yes Home Medications: Tizanidine [Zanaflex*] 4 mg PO BEDTIME PRN PRN 07/21/20 Diclofenac Sodium 50 mg PO Q8H 11/17/22 LORazepam [Ativan*] 1 mg PO BID PRN 11/17/22 Venlafaxine HCl [Effexor Xr] 225 mg PO DAILY 11/17/22 Levothyroxine [Synthroid*] 50 mcg PO [id number] 01/04/23 Pantoprazole [Protonix Tab*] 40 mg PO BEDTIME 01/04/23 Propranolol HCl 20 mg PO BID 01/04/23 hydrOXYzine HCL [Atarax] 50 mg PO BIDP PRN 01/04/23 Cholecalciferol (Vitamin D3) [Vitamin D3] 5,000 unit PO DAILY 01/05/23 Hydrocodone 10/APAP 325 [[place] 10/325*] 1 tab PO Q6HP PRN 04/13/23 Meclizine HCl [Antivert] 25 mg PO Q8HP PRN 04/13/23 Docusate [Colace Cap*] 100 mg PO BID 04/24/23 Mecobalamin [B12 Active] 3,000 mcg PO DAILY 04/24/23 Ped Multivit 43/Iron Fumarate [Flintstones Complete Chew Tab] 1 tab PO DAILY 04/24/23 Gabapentin 300 mg PO TID #90 tab 04/26/23 Ziprasidone [Geodon*] 60 mg PO BEDTIME #90 cap 04/26/23 lamoTRIgine [Lamotrigine] 200 mg PO DAILY 04/29/23 Cefpodoxime Proxetil 100 mg PO BID #6 tab 04/30/23 - Past Medical/Surgical History Diabetic: No -: Intestinal blockage -: Bipolar disorder, , depression -: Fibromyalgia -: Hypertension -: Migraine headache -: IBS -: Anxiety disorder -: Insomnia -: bulging disc -: 2 csec -: hyst -: appy -: anderson -: gastric bypass -: L fractured wrist w/ plates and screws - Family History Mother Medical History: Heart disease, Cancer Notes: cardiac stent. lung cancer - Social History Smoking Status: Unknown if ever smoked Alcohol use: No CD- Drugs: No Caffeine use: Yes Review of Systems 10-point ROS is otherwise unremarkable General: Weakness Gastrointestinal: Nausea, Vomiting Physical Examination Temp Pulse Resp BP Pulse Ox 97.5 F 71 14 118/70 96 07/20/23 15:58 07/20/23 15:58 07/20/23 15:58 07/20/23 15:58 07/20/23 15:58 General: Alert, In no apparent distress, Oriented x3 HEENT: Atraumatic, Normocephalic Neck: Supple Respiratory: Clear to auscultation bilaterally, Normal air movement, Other (on room air) Cardiovascular: No edema, Regular rate/rhythm Gastrointestinal: Normal bowel sounds, Soft and benign, No tenderness Integumentary: No rashes Neurological: Normal speech, Normal tone Laboratory Data - Reviewed Microbiology Data - Reviewed Imagings Data: - Reviewed Conclusions/Impression: Problem List Colitis Nausea/Vomiting Irritable Bowel Syndrome Bipolar Disorder Fibromyalgia Hypertension Migraines Colitis Nausea, Vomiting - CT abdomen pelvis 07/19: "Bowel wall thickening and mucosal hyperenhancement involving most of the ascending colon through proximal descending colon. Findings suggest segmental colitis. Small ovoid indeterminate structure within the lumen of the excluded stomach. This may relate to a prior procedure, or an ingested object. Please correlate clinically. Prominent central intrahepatic biliary radicles, may relate to status post cholecystectomy." - Patient was experiencing nausea, vomiting and diarrhea 3-4 days prior to arrival. Vomiting and diarrhea have improved since admission. + nausea although improved since admission. - No leukocytosis. Afebile Recommendations - Continue with Ciprofloxacin and Metronidazole for now. - Obtain stool sample / culture - monitor wbc and fever trends - Consider GI consult - IV hydration while NPO Plan of care discussed with patient and at bedside. Case discussed with Aj Mayberry
[2023-07-20] MEDS: PANTOPRAZOLE 40MG TABLET PO SCH (20:45)
[2023-07-20] MEDS: ZIPRASIDONE 20 MG CAP PO SCH (22:11)
[2023-07-21] MEDS: METRONIDAZOLE 500mg IVPB 500 MG/100 ML BAG IV SCH ×4 (01:12→17:02)
[2023-07-21] MEDS: METHYLPREDNISOLONE 125 MG INJ IV SCH ×2 (01:12→07:34)
[2023-07-21] MEDS: NA CHLORIDE 0.9% 1,000 ML IV SCH ×3 (01:12→20:43)
[2023-07-21] MEDS: MORPHINE 2 MG/ML SYR IV PRN ×4 (03:22→18:27)
[2023-07-21] MEDS: ONDANSETRON 4 MG/2 ML VIAL IV PRN ×4 (03:23→18:27)
[2023-07-21] MEDS: LEVOTHYROXINE SOD 0.05 MG TABLET PO SCH (08:21)
[2023-07-21] MEDS: VENLAFAXINE HCL XR 75 MG CAP PO SCH (08:22)
[2023-07-21] MEDS: lamoTRIgine 100 MG TAB PO SCH (08:23)
[2023-07-21] MEDS: DOCUSATE NA 100 MG CAP PO SCH ×2 (08:24→20:45)
[2023-07-21] MEDS: GABAPENTIN 300 MG CAP PO SCH ×3 (08:24→20:45)
[2023-07-21] MEDS: PROPRANOLOL HCL 10 MG TAB PO SCH ×2 (08:25→20:43)
[2023-07-21 08:42] LABS: Albumin 2.3 g/dL (3.4-5.0); Bilirubin Total 0.4 mg/dL (0.2-1.0); Magnesium 2.2 mg/dL (1.6-2.4); Phosphorus 2.7 mg/dL (2.5-4.9); Potassium 3.3 mEq/L (3.5-5.1); Protein, Total 4.8 g/dL (6.4-8.2)
[2023-07-21 10:29] LABS: Absolute Lymphocytes (CBC) 0.7 K/uL (0.7-4.9); Hematocrit 34.7 % (36.0-45.0); Lymphocytes % 5.5 % (15.3-44.8); MCV 92.8 fL (80-100); Platelets 660 thou/uL (152-406); RBC Red Blood Cell Count 3.74 M/uL (3.86-4.86)
[2023-07-21] MEDS ORDERED: POLYETHYL GLY 3350 17 GM/DOSE PO ONE (11:06)
[2023-07-21] MEDS ORDERED: ZOLPIDEM TARTRATE 5 MG TABLET PO PRN (11:07)
[2023-07-21 12:34] LABS: Blood Morphology Comment NOT SEEN (NOT SEEN); Hypersegmented Neutrophils 1+; Platelet Estimate ADEQ; White Blood Cell Scan OK (OK)
--- NOTE | 2023-07-21 14:43 | P.PN ---
Date of Service: 07/21/23 Chief Complaint: nausea and vomiting Subjective: Patient seen and examined at bedside. No acute events reported overnight. + constipation Physical Examination Temp Pulse Resp BP Pulse Ox 98.1 F 74 13 111/69 98 07/21/23 12:00 07/21/23 12:00 07/21/23 14:07 07/21/23 12:00 07/21/23 14:07 General: Alert, In no apparent distress, Oriented x3 HEENT: Atraumatic, Normocephalic Neck: Supple Respiratory: Clear to auscultation bilaterally, Normal air movement. On room air. Cardiovascular: No edema, Regular rate/rhythm Gastrointestinal: Normal bowel sounds, Soft and benign, No tenderness Integumentary: No rashes Neurological: Normal speech, Normal tone Laboratory Data - Reviewed Microbiology Data - Reviewed Imagings Data: - Reviewed Medications List: Reviewed Assessment and Plan Problem List Colitis Nausea/Vomiting Irritable Bowel Syndrome Bipolar Disorder Fibromyalgia Hypertension Migraines History of Gastric bypass and multiple abdominal surgeries History of ileus, recurrent Colitis Nausea, Vomiting- resolved - CT abdomen pelvis 07/19: "Bowel wall thickening and mucosal hyperenhancement involving most of the ascending colon through proximal descending colon. Findings suggest segmental colitis. Small ovoid indeterminate structure within the lumen of the excluded stomach. This may relate to a prior procedure, or an ingested object. Please correlate clinically. Prominent central intrahepatic biliary radicles, may relate to status post cholecystectomy." - Patient was experiencing nausea, vomiting and diarrhea 3-4 days prior to arrival. - No vomiting since admission. Reports improvement in nausea. - Previously on SoluMedrol 60mg IV Q6H (07/19-07/21) Recommendations - Continue with Ciprofloxacin and Metronidazole for now. - monitor WBC and fever trends - Tolerating full liquid diet. - Follow up with GI as outpatient. Plan of care discussed with patient. Case discussed with Aj Mayberry
[2023-07-21] MEDS: Levofloxacin 750mg IV 750 MG/150 ML BAG IV SCH (15:10)
[2023-07-21] MEDS ORDERED: MAGNESIUM HYDROXIDE 8% 30 ML PO ONE ×2 (19:07→21:00)
[2023-07-21] MEDS: ZIPRASIDONE 20 MG CAP PO SCH (20:43)
[2023-07-21] MEDS: PANTOPRAZOLE 40MG TABLET PO SCH (20:45)
[2023-07-21] MEDS ORDERED: MAGNESIUM HYDROXIDE 8% 30 ML ONE (20:49)
[2023-07-21 23:49] VITALS: O2SAT 98
[2023-07-21 23:50] VITALS: BMI 21.3
[2023-07-22] MEDS: METRONIDAZOLE 500mg IVPB 500 MG/100 ML BAG IV SCH ×3 (00:49→11:36)
[2023-07-22] MEDS: NA CHLORIDE 0.9% 1,000 ML IV SCH (04:09)
[2023-07-22] MEDS: MORPHINE 2 MG/ML SYR IV PRN (05:15)
[2023-07-22] MEDS: ONDANSETRON 4 MG/2 ML VIAL IV PRN (05:15)
[2023-07-22] MEDS: LEVOTHYROXINE SOD 0.05 MG TABLET PO SCH (06:26)
--- NOTE | 2023-07-22 08:09 | RAD REPORT ---
EXAM DESCRIPTION: RAD - Abdomen W Erect - 07/22/2023 5:50 am CLINICAL HISTORY: Abdominal pain FINDINGS: Free air is not seen beneath the diaphragm Air is present within nondilated large and small bowel in a nonspecific fashion. Surgical clips are present within the abdomen
--- NOTE | 2023-07-22 08:35 | P.PN ---
Date of Service: 07/22/23 Chief Complaint: nausea and vomiting Subjective: Patient seen and examined at bedside. Denies nausea or vomiting. + constipation + lower abdominal cramping Physical Examination Temp Pulse Resp BP Pulse Ox 97.8 F 63 18 109/61 98 07/22/23 04:00 07/22/23 04:00 07/22/23 05:15 07/22/23 04:00 07/22/23 05:15 General: Alert, In no apparent distress, Oriented x3 HEENT: Atraumatic, Normocephalic Neck: Supple Respiratory: Clear to auscultation bilaterally, Normal air movement. On room air. Cardiovascular: No edema, Regular rate/rhythm Gastrointestinal: Normal bowel sounds, Soft and benign, No tenderness. Integumentary: No rashes Neurological: Normal speech, Normal tone Laboratory Data - Reviewed Microbiology Data - Reviewed Imagings Data: - Reviewed Medications List: Reviewed Assessment and Plan Problem List Colitis Nausea/Vomiting Irritable Bowel Syndrome Bipolar Disorder Fibromyalgia Hypertension Migraines History of Gastric bypass and multiple abdominal surgeries History of ileus, recurrent Colitis Nausea, Vomiting- resolved - CT abdomen pelvis 07/19: "Bowel wall thickening and mucosal hyperenhancement involving most of the ascending colon through proximal descending colon. Findings suggest segmental colitis. Small ovoid indeterminate structure within the lumen of the excluded stomach. This may relate to a prior procedure, or an ingested object. Please correlate clinically. Prominent central intrahepatic biliary radicles, may relate to status post cholecystectomy." - Patient was experiencing nausea, vomiting and diarrhea 3-4 days prior to arrival. - Nausea and vomiting resolved. - KUB XR 07/22: "Free air is not seen beneath the diaphragm. Air is present within nondilated large and small bowel in a nonspecific fashion. Surgical clips are present within the abdomen." Recommendations - Continue with Ciprofloxacin and Metronidazole for 5-7 days. Switch to PO as tolerated. - monitor WBC and fever trends - Advance diet as tolerated - Follow up with GI as outpatient. Plan of care discussed with patient at bedside. Case discussed with Aj Mayberry
[2023-07-22] MEDS: DOCUSATE NA 100 MG CAP PO SCH (09:29)
[2023-07-22] MEDS: lamoTRIgine 100 MG TAB PO SCH (09:30)
[2023-07-22] MEDS: VENLAFAXINE HCL XR 75 MG CAP PO SCH (09:30)
[2023-07-22] MEDS: PROPRANOLOL HCL 10 MG TAB PO SCH (09:30)
[2023-07-22] MEDS: GABAPENTIN 300 MG CAP PO SCH (09:30)
[2023-07-22 12:13] VITALS: BP 126/76; TEMP 98
== END 2023-07-22 13:00 | disposition home health service (06) | DRG 392 ==
LOC: ER 14:21 → ERHOLD 17:35 → 2ND 19:48
PROVIDERS: ADMIT Hospitalist; ATTEND Hospitalist
DX: A09 Infectious gastroenteritis and colitis, unspecified (principal); I10 Essential (primary) hypertension; M79.7 Fibromyalgia; E86.0 Dehydration; G89.29 Other chronic pain; M54.9 Dorsalgia, unspecified; F31.9 Bipolar disorder, unspecified; K59.00 Constipation, unspecified; K58.0 Irritable bowel syndrome with diarrhea; G43.909 Migraine, unspecified, not intractable, without status migrainosus; Z88.8 Allergy status to other drugs, medicaments and biological substances; Z90.49 Acquired absence of other specified parts of digestive tract; Z98.84 Bariatric surgery status; Z79.890 Hormone replacement therapy; Z79.899 Other long term (current) drug therapy; Z90.710 Acquired absence of both cervix and uterus; Z20.822 Contact with and (suspected) exposure to COVID-19
CPT/HCPCS: 36415; 74019; 74177; 80053; 81003; 83690; 83735; 83880; 84100; 85025; 85610; 85730; 87804; 87811; 96361; 96365; 96367; 96375; 99285; J0744; J2270; J2405; J2550; J2930; J7030; Q9967

== ENCOUNTER 2023-08-23 11:25 | Inpatient (IN) | payer MEDICARE ==
--- OUTSIDE RECORDS SUMMARY | 2023-08-23 11:41 | XMS REPORT | Continuity of Care Document ---
:1965 Author Organization [facility] t Address [address] [place] [address] Care Team Providers Name Role Phone No, Pcp [facility] Primary Care Physician Unavailable Davin Platt Attending Clinician Unavailable [email or web address] Attending Clinician Unavailable Kathie Angel Attending Clinician Kristopher Blackwood Attending Clinician Dana Lunsford Attending Clinician Marla La Attending Clinician Melissa Dunham Attending Clinician Unavailable Jorge A Attending Clinician Unavailable SHAN SANTANA Attending Clinician Unavailable Shan Santana MD Attending Clinician Doctor Unassigned, [place] Attending Clinician Unavailable Almita Moore MA Attending Clinician Unavailable SCAR OJEDA Attending Clinician Unavailable NILAY LENNON Attending Clinician Unavailable Nilay Lennon DO Attending Clinician Khushi JAQUEZ, Spike Brower Attending Clinician Unavailable JESUS MORA Attending Clinician Unavailable Hill Piñage Attending Clinician Soco TESSAPauly Attending Clinician Herbie Olvera MD Attending Clinician Jesus Mora DO Attending Clinician Abdirizak Krueger MD Attending Clinician [phone] ABDIRIZAK KRUEGER Attending Clinician Unavailable CARLTON ECHEVERRIA Attending Clinician Unavailable Carlton Echeverria MD Attending Clinician KENYA CONNOLLY Attending Clinician Unavailable [email or web address] Admitting Clinician Unavailable Jorge A Admitting Clinician Unavailable SHAN SANTANA Admitting Clinician Unavailable NILAY LENNON Admitting Clinician Unavailable JESUS MORA Admitting Clinician Unavailable Jesus Mora DO Admitting Clinician CARLTON ECHEVERRIA Admitting Clinician Unavailable Carlton Echeverria MD Admitting Clinician MYLENE BOBBY Admitting Clinician Unavailable Payers Payer Name Policy Type Policy Number Effective Date Expiration Date [facility] 2022 (MEDICARE 00:00:00 REPLACEMENT HMO) THUBIT [id number] 2020spring 00:00:00 [address] [place] [id number] 2018 Common g Medicare 00:00:00 Spirit - [facility] Replace [facility] Problems Condition Condition Condition Status Onset Resolution Last Treating Co mments Source Name Details Category Date Date Treatment Clinician Date Abdominal Abdominal Disease Active Uni vers pain, pain, 9-14 ity [place] 00 Medical abdominal abdominal Bran ch location location SBO (small SBO (small Disease Active C [facility] bowel bowel 06-26 obstructio obstructio 00:00: Me dical n) n) 00 Center Pancreatit Pancreatit Disease Active C [facility] is is 06-25 00:00: Medical 00 Center Perimenopa Post Problem Commo n usal hysterecto Spirit disorder my - CHI menopause [facility] Chronic Stage 3b Problem Common kidney chronic Spirit disease kidney - CHI stage 3B disease St (disorder) [facility] Mixed Depression Problem Commo n anxiety with Spirit and anxiety - CHI depressive disorder [facility] Benign Benign Problem Common essential essential Spir it hypertensi hypertensi - CHI on on [facility] Bipolar Bipolar Problem Common disorder disorder [facility] Solitary Solitary Problem Commo n cyst of cyst of Spirit breast left - CHI breast [facility] [id number] Irritable Problem Comm on bowel Spirit syndrome, - CHI unspecifie [facility] Migraine Migraine Problem Commo n without without Spirit aura, not aura and - CHI refractory without [facility] migrainosu Medica l s, not Center intractabl e [id number] Mixed Problem Common hyperlipid [facility] emia [facility] [id number] Nausea Problem Common [facility] [id number] Fibromyalg Problem Co mmon ia [facility] [id number] Hemorrhoid Problem Com mon s, Spirit unspecifie - CHI d hemorrhoid [facility] Pain in Left wrist Problem Comm on wrist pain [facility] [id number] Back pain Problem Com mon with Spirit left-sided - CHI radiculopa [facility] [id number] History of Problem Co mmon intussusce [facility] ption [facility] [id number] Constipati Problem Com mon on, Spirit unspecifie - CHI d constipati [facility] [id number] GERD Problem Common without Spirit esophagiti - CHI s [facility] [id number] Subclinica Problem Com mon l Spirit hypothyroi - CHI dism [facility] [id number] +5th digit Problem Co mmon eff Spirit 07/03/20*CK - CHI D (chronic kidney [facility] disease) Medical stage 3, Center GFR 30-59 ml/min Right Abdominal Problem Common upper pain, RUQ [facility] quadrant - CHI pain [facility] Recurrent Repeated Problem Comm on falls falls [facility] Irritable Irritable Problem Com mon bowel bowel Spirit syndrome syndrome - CHI characteri with St zed by constipati 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 d Medical pathologic Center al fracture presence No known No known Disease Unive rs active active ity of problems problems [facility] Allergies, Adverse Reactions, Alerts Allergy Allergy Status Severity Reaction(s) Onset Inactive Treating Comm ents Source Name Type Date Date Clinician METOCLOP DRUG Active Anxiety 2020-10 Univers RAMIDE INGREDI 10-19 ity of 00:00: [facility] ROPINIRO DRUG Active N/V 2020-10 Univers LE INGREDI 10-19 ity of 00:00: [facility] Metoclop Propensi Active Anxiety 2020-10 Unive rs ramide ty to 10-19 ity of adverse 00:00: [place] reaction 00 [facility] Ropiniro Propensi Active Nausea 2020-10 Univer s le ty to and/or 10-19 ity of adverse Vomiting 00:00: [place] reaction 00 [facility] METOCLOP Allergy Active 2018- [facility] RAMIDE 9-23 [facility] Medical 00 Center Metoclop Propensi Active 2018-[address] ramide ty to 9-23 [facility] adverse 00:00: Medical reaction 00 [place] [facility] Ropiniro Propensi Active 2018- [facility] le ty to 9-23 [facility] adverse 00:00: Medical reaction 00 [place] [facility] ROPINIRO Allergy Active 2019-[address] LE 9-23 [facility] 00:[facility]: Medical [facility] Center Hydrochl Propensi Active Other - See 2016-10 Weak U nivers orothiaz ty to comments 0-10 ity of noel adverse 00:00: [place] reaction 00 [facility] HYDROCHL DRUG Active High Other-Cmnt 2016-10 Univ ers OROTHIAZ INGREDI 0-10 ity of NOEL 00:00: [place] 00 [facility] metoclop metoclop Active Unknown Commo n ramide ramide [facility] 5921 Drug Active Unknown Common allergy Spirit - [facility] Social History Social Habit Start Date Stop Date Quantity Comments Source History of Common Spirit - Tobacco Use [facility] History SDOH [facility] Alcohol Std [facility]inge Medical Bruna ter Exposure to 2022-09-13 2022-09-23 Not sure [facility]-CoV-2 00:00:00 14:14:00 [facility] (event) Branch Education 2022-06-16 2022-06-16 21 [facility] 00:00:00 00:00:00 [facility] Tobacco use and 2022-06-16 2022-06-16 Smokeless tobacco Un iversity of exposure 00:00:00 00:00:00 non-user [facility] Alcohol intake 2022-04-14 2022-04-14 Current [facility] es 00:00:00 00:00:00 non-drinker of Medical Ce nter alcohol (finding) History SDAL 2019-06-25 2019-06-25 [facility] Alcohol Frequency 00:00:00 00:00:00 [facility] Sex Ass[birth year] At [birth year] [facility] tracys 00:00:00 00:00:00 [facility] Smoking Status Start Date Stop Date Source Never smoked tobacco [facility] Medications Ordered Filled Start Stop Current Ordering Indication Dosage Frequency Signature Comments Components Source Medication Medication Date Date Medication? Clinician (SIG) Name Name ketorolac 2021-10 No 15mg 15 mg, Unive rs (TORADOL) 0- Slow IV ity of injection 23:00: 22:59 Push, Q6H, [place] 15 mg 00 :00 4 doses, Medical First dose Branch on Tue07/26/22 at 1800, Last dose on Tue07/27/22 at 1200, Routine HYDROcodone 2021-10 No 1{tbl} 1 tablet, Univers -acetaminop 0- 10-24 Oral, ity of hen (NORCO) 20:45: 19:52 ONCE, 1 [place] 10-325 mg 00 :00 dose, On Medica l tablet 1 Mon Branch tablet 07/26/22 at 1545, Routine methocarbam 2021-10 No 1000mg 1,000 mg, Univers oL 0-24 10-24 Oral, ity of (ROBAXIN) 17:45: 18:58 ONCE, 1 [place] tablet 00 :00 dose, On Medical 1,000 mg [facility] Branch 07/26/22 at 1245, RUBEN naproxen 2021-10 Yes [id number] 550mg Take 1 Univers sodium 550 0-24 [id number] tablet by it y of mg tablet 00:00: [place] 00 the Medical morning Branch and 1 tablet in the evening. Take with meals. methylPREDN 2021-10 Yes [id number] Take by Univers ISolone 4 0-24 [id number] mouth ity of mg tablets 00:00: [place]-INSTRU [place] 00 CTIONS. Medical follow Branch package directions naproxen 2021-10 Yes [id number] 550mg Take 1 Univers sodium 550 0-24 [id number] tablet by it y of mg tablet 00:00: [place] 00 the Medical morning Branch and 1 tablet in the evening. Take with meals. methylPREDN 2021-10 Yes [id number] Take by Univers ISolone 4 0-24 [id number] mouth ity of mg tablets 00:00: [place]-INSTRU [place] 00 CTIONS. Medical follow Branch package directions naproxen 2021-10 Yes [id number] 550mg Take 1 Univers sodium 550 0-24 [id number] tablet by it y of mg tablet 00:00: [place] 00 the Medical morning Branch and 1 tablet in the evening. Take with meals. methylPREDN 2021-10 Yes [id number] Take by Univers ISolone 4 0-24 [id number] mouth ity of mg tablets 00:00: SEE-INSTRU [place] 00 CTIONS. Medical follow Branch package directions methocarbam 2021-10- No [id number] 500mg Take 1 Univers oL 500 mg 0-24 10-30 [id number] tablet by it y of tablet 00:00: 04:59 mouth in [place] 00 :00 the Medical morning Branch and 1 tablet at noon and 1 tablet in the evening. Do all this for 5 days. lidocaine 5 2021-10- No [id number] 1{patch Apply 1 Univers % (700 0-24 10-25 [id number] } Patch to ity of mg/patch) 00:00: 04:59 area(s) [place] patch 00 :00 once now Medical for 1 Branch dose. Zofran 4 MG Zofran 4 MG 2-0 No BID Zofran 4 9-28 MG 00:00: 00 Zofran 4 MG Zofran 4 MG 2022-0 No BID Zofran 4 9-28 MG 00:00: [...] Zofran 4 9-28 MG 00:00: 00 gabapentin 2-0 Yes 300mg Take 300 Un henry 300 mg 9-19 mg by ity of capsule 12:24: mouth 3 [place] 20 (three) Medical times Branch daily. Indication s: 1 in the Am and 4 at bed time ziprasidone 2-0 Yes 60mg Take 60 mg Univers 60 mg 9-19 by mouth ity of capsule 12:24: daily. [place] 20 Medical Branch PANTOPRAZOL 0 Yes 40mg [...] Univ ers ASP 9-19 mouth. ity of GLY-LATOYA,M 12:24: Indication [place] IN38 ORAL 20 s: iron Medical injectio Branch once a month propranolol 0 Yes 20mg Take 20 mg Univers 20 mg 9-19 by mouth ity of tablet 12:24: daily. [place] 20 Medical Branch levothyroxi 0 Yes 50ug [...] [place] 20 the Medical morning. Branch gabapentin 0 Yes 300mg Take 300 Un henry 300 mg 9-19 mg by ity of capsule 12:24: mouth 3 [place] 20 (three) Medical times Branch daily. Indication s: 1 in the Am and 4 at bed time ziprasidone 2021-0 Yes 60mg Take 60 mg Univers 60 mg 9-19 by mouth ity of capsule 12:24: daily. [place] [address] Medical Branch PANTOPRAZOL 2021-0 Yes 40mg Take 40 mg Univers E SODIUM 9-19 by mouth. ity of (PROTONIX 12:24: [place] ORAL) 20 Medical Branch tiZANidine 2021-0 Yes 4mg Take 4 mg Un henry 4 mg 9-19 by mouth 2 ity of capsule 12:24: (two) [place] 20 times Medical daily. Branch IRON &IRON 0 Yes Take by Univ ers ASP 9-19 mouth. ity of GLY-HAROON-JAZMYN,M 12:24: Indication [place] IN38 ORAL 20 s: iron Medical injectio Branch once a month propranolol 2021-0 Yes 20mg Take 20 mg Univers 20 mg 9-19 by mouth ity of tablet 12:24: daily. [place] [address] Medical Branch levothyroxi 0 Yes 50ug Take 50 Uni vers ne 50 mcg 9-19 mcg by ity of tablet 12:24: mouth [place] 20 every Medical morning. Branch hydrOXYzine 0 Yes 50mg Take 50 mg Univers 50 mg 9-19 by mouth ity of tablet 12:24: in the [place] [address] morning Medical and 50 mg Branch in the evening. zolpidem 0 Yes 12.5mg Take 12.5 Un henry 12.5 mg CR 9-19 mg by ity of tablet 12:24: mouth at [place] [address] bedtime as Medical needed for Branch Sleep. buspirone 0 Yes 5mg Take 5 mg Uni vers HCl 9-19 by mouth ity of (BUSPIRONE 12:24: as needed. [place] ORAL) 20 Medical Branch LORazepam 0 Yes .5mg Take 0.5 Univ ers 0.5 mg 9-19 mg by ity of tablet 12:24: mouth as [place] needed. Medical Branch venlafaxine 0 Yes 75mg Take 75 mg Univers XR 75 mg 24 9-19 by mouth ity of hr capsule 12:24: daily with [place] 20 breakfast. Medical Branch lamoTRIgine 2021-0 Yes 200mg Take 200 U nivers 200 mg 9-19 mg by ity of tablet 12:24: mouth in [place] 20 the Medical morning. Branch gabapentin 0 Yes 300mg Take 300 Un henry 300 mg 9-19 mg by ity of capsule 12:24: mouth 3 [place] 20 (three) Medical times Branch daily. Indication s: 1 in the Am and 4 at bed time ziprasidone 2021-0 Yes 60mg Take 60 mg Univers 60 mg 9-19 by mouth ity of capsule 12:24: daily. [place] [address] Medical Branch PANTOPRAZOL 2021-0 Yes 40mg Take 40 mg Univers E SODIUM 9-19 by mouth. ity of (PROTONIX 12:24: [place] ORAL) 20 Medical Branch tiZANidine 0 Yes 4mg Take 4 mg Un henry 4 mg 9-19 by mouth 2 ity of capsule 12:24: (two) [place] 20 times Medical daily. Branch IRON &IRON 0 Yes Take by Univ ers ASP 9-19 mouth. ity of GLY-FA-MV,M 12:24: Indication [place] IN ORAL 20 s: iron Medical injectio Branch once a month propranolol 2021-0 Yes 20mg Take 20 mg Univers 20 mg 9-19 by mouth ity of tablet 12:24: daily. [place] [address] Medical Branch levothyroxi 0 Yes 50ug Take 50 Uni vers ne 50 mcg 9-19 mcg by ity of tablet 12:24: mouth [place] [address] every Medical morning. Branch hydrOXYzine 0 Yes 50mg Take 50 mg Univers 50 mg 9-19 by mouth ity of tablet 12:24: in the [place] [address] morning Medical and 50 mg Branch in the evening. zolpidem 2021-0 Yes 12.5mg Take 12.5 Un henry 12.5 mg CR 9-19 mg by ity of tablet 12:24: mouth at [place] [address] bedtime as Medical needed for Branch Sleep. buspirone 2021-0 Yes 5mg Take 5 mg Uni vers HCl 9-19 by mouth ity of (BUSPIRONE 12:24: as needed. [place] ORAL) 20 Medical Branch LORazepam 0 Yes .5mg Take 0.5 Univ ers 0.5 mg 9-19 mg by ity of tablet 12:24: mouth as [place] [address] needed. Medical Branch venlafaxine 0 Yes 75mg Take 75 mg Univers XR 75 mg 24 9-19 by mouth ity of hr capsule 12:24: daily with [place] 20 breakfast. Medical Branch lamoTRIgine 0 Yes 200mg Take 200 U nivers 200 mg 9-19 mg by ity of tablet 12:24: mouth in [place] 20 the Medical morning. Branch gabapentin 0 Yes 300mg Take 300 Un henry 300 mg 9-19 mg by ity of capsule 12:24: mouth 3 [place] 20 (three) Medical times Branch daily. Indication s: 1 in the Am and 4 at bed time ziprasidone 2021-0 Yes 60mg Take 60 mg Univers 60 mg 9-19 by mouth ity of capsule 12:24: daily. [place] [address] Medical Branch PANTOPRAZOL 0 Yes 40mg Take 40 mg Univers E SODIUM 9-19 by mouth. ity of (PROTONIX 12:24: [place] ORAL) 20 Medical Branch tiZANidine 0 Yes 4mg Take 4 mg Un henry 4 mg 9-19 by mouth 2 ity of capsule 12:24: (two) [place] [address] times Medical daily. Branch IRON &IRON 0 Yes Take by Univ ers ASP 9-19 mouth. ity of GLY-FA-MV,M 12:24: Indication [place] IN38 ORAL 20 s: iron Medical injectio Branch once a month propranolol 2021-0 Yes 20mg Take 20 mg Univers 20 mg 9-19 by mouth ity of tablet 12:24: daily. [place] [address] Medical Branch levothyroxi 0 Yes 50ug Take 50 Uni vers ne 50 mcg 9-19 mcg by ity of tablet 12:24: mouth [place] [address] every Medical morning. Branch hydrOXYzine 0 Yes 50mg Take 50 mg Univers 50 mg 9-19 by mouth ity of tablet 12:24: in the [place] [address] morning Medical and 50 mg Branch in the evening. zolpidem 0 Yes 12.5mg Take 12.5 Un henry 12.5 mg CR 9-19 mg by ity of tablet 12:24: mouth at [place] [address] bedtime as Medical needed for Branch Sleep. buspirone 2021-0 Yes 5mg Take 5 mg Uni vers HCl 9-19 by mouth ity of (BUSPIRONE 12:24: as needed. [place] ORAL) 20 Medical Branch LORazepam 2022-0 Yes .5mg Take 0.5 Univ ers 0.5 mg 9-19 mg by ity of tablet 12:24: mouth as [place] needed. Medical Branch venlafaxine 0 Yes 75mg [...] ity of capsule 12:24: daily. [place] [address] Medical Branch PANTOPRAZOL 0 Yes 40mg Take 40 mg Univers E SODIUM 919 by mouth. ity of (PROTONIX 12:24: [place] ORAL) 20 Medical Branch tiZANidine 0 Yes 4mg Take 4 mg Un henry 4 mg 9-19 by mouth 2 ity of capsule 12:24: (two) [place] 20 times Medical daily. Branch IRON &IRON 0 Yes Take by Univ ers ASP 9-19 mouth. ity of LINUS-LATOYA,M 12:24: Indication [place] IN38 ORAL 20 s: iron Medical injectio Branch once a month propranolol 2021-0 Yes 20mg Take 20 mg Univers 20 mg 9-19 by mouth ity of tablet 12:24: daily. [place] [address] Medical Branch levothyroxi 0 Yes 50ug Take [...] of tablet 12:24: mouth at [place] [address] bedtime as Medical needed for Branch Sleep. buspirone Yes 5mg Take 5 mg Uni vers HCl 06-21 by mouth ity of (BUSPIRONE 12:24: as [...] [place] 20 the Medical morning. Branch FLUoxetine 2021- No 40mg Take 40 mg Univers 40 mg 06-21 by mouth ity of capsule 11:03: 00:00 daily. [place] 56 :00 Medical Branch DICLOFENAC 2021- No Take 50 mg Univers POTASSIUM 06-21 base by ity of (CAMBIA 11:03: 00:00 mouth. [place] ORAL) 56 :00 Medical Branch traMADoL 50 2021-0 2021- No [id number] 50mg Take 1 Uni vers mg tablet 06-21 tablet by ity of 00:00: 04:59 mouth [place] 00 :00 every 6 Medical (six) Branch hours as needed for Pain (scale 7-10) for up to 7 days. Indication s: acute pain traMADoL 50 2021-0 2021- No 4647 50mg Take 1 Uni vers mg tablet 06-21 tablet by ity of 00:00: 04:59 mouth [place] 00 :00 every 6 Medical (six) Branch hours as needed for Pain (scale 7-10) for up to 7 days. Indication s: acute pain KCL 2021-2021- No 40meq 40 mEq, Univers (KLOR-CON 06-20 Oral, ity of M20) tablet 13:45: 14:08 ONCE, 1 [place] 40 mEq 00 :00 dose, On Medical Sun Branch 06/20/22 at 0845, Routine potassium 2021-2021- No 10meq 10 mEq, IV Univers chloride in 06-20 Piggyback, i ty of water 10 13:00: 02:58 Q4H, 4 [place] mEq/100 mL 00 :00 doses, Medical RTU 10 mEq First dose Bra nch on 06/20/22 at 0800, Last dose on 06/20/22 at 2000, Administer over 60 Minutes, 100 mL acetaminoph 2021-0 Yes 650mg 650 mg, Un henry en 06-19 Oral, ity of (TYLENOL) 00:38: Q6HPRN, [place] tablet 650 04 Starting Medic al mg on Tue Branch 06/18/22 at 1938, Until Discontinu ed, Routine, Pain (scale 1-3), Temp > 38.5 C maalox:diph 2021-0 2021- No 15mL 15 mL, Uni vers enhydrAMINE 06-18 Oral, ity of :lidocaine 02:00: 01:22 ONCE, 1 [place] as 2 % viscous 00 :00 dose, On [facility] 1:1:1 [facility] Branch (FIRST-MOUT 06/17/22 at [facility]) 2100, oral Routine suspension 15 mL HYDROcodone 2021-0 Yes 1{tbl} 1 tablet, Univers -acetaminop 06-18 Oral, ity of hen (NORCO 01:00: Q6HPRN, [place] 5) 5-325 mg 34 Starting [facility] tablet 1 on [place] Branch tablet 06/17/22 at 2000, Until Discontinu ed, Routine, Pain (scale 4-6) morpHINE (2 2021-0 Yes 2mg 2 mg, Slow Univers mg/mL) 9-15 IV Push, ity of injection 2 20:14: Q6HPRN, [place] as mg 54 Starting Medical on [place] Branch 06/17/22 at 1514, Until Discontinu ed, Routine, Pain (scale 7-10) maalox:diph 2021-0 2021- No 15mL 15 mL, Uni vers enhydrAMINE 06-17 Oral, ity of :lidocaine 15:45: 15:51 ONCE, 1 [place] 2 % viscous 00 :00 dose, On [facility] 1:1:1 [facility] Branch (FIRST-MOUT 06/17/22 at [facility]) 1045, oral Routine suspension 15 mL pantoprazol 2021-0 Yes 40mg 40 mg, Univ ers e 9-15 Oral, ity of (PROTONIX) 14:00: DAILY, [place] EC tablet 00 First dose Medi carlos 40 mg on [facility] 06/17/22 at 0900, Until Discontinu ed lamoTRIgine 0 Yes 200mg 200 mg, Un henry (LAMICTAL) 9-15 Oral, ity of tablet 200 14:00: DAILY, [place] mg 00 First dose Medical on [facility] 06/17/22 at 0900, Until Discontinu ed, Routine venlafaxine 0 Yes 75mg 75 mg, Univ ers XR (EFFEXOR 9-15 Oral, QAM ity of XR) 24 hr 13:00: WITH [place] capsule 75 00 BREAKFAST, Med ical mg First dose Branch on [facility] 06/17/22 at 0800, Until Discontinu ed, Routine tiZANidine 0 Yes 4mg 4 mg, Univer s (ZANAFLEX) 9-15 Oral, BID, ity of tablet 4 mg 13:00: First dose [place] 00 on [facility] 06/17/22 at Branch 0800, Until Discontinu ed propranoloL 0 Yes 20mg 20 mg, Univ ers (INDERAL) 9-15 Oral, BID, ity of tablet 20 13:00: First dose [place] mg 00 on [facility] 06/17/22 at Branch 0800, Until Discontinu ed, Routine heparin 0 Yes 5000U 5,000 Univers (porcine) 9-15 Units, ity of injection 13:00: Subcutaneo [place] 5,000 Units 00 us, Q12H, Med ical First dose Branch on [facility] 06/17/22 at 0800, Until Discontinu ed, Routine levothyroxi 0 Yes 50ug 50 mcg, Uni vers ne 9-15 Oral, ity of (SYNTHROID) 11:00: QAM-0600, [place] tablet 50 00 First dose Medi carlos mcg on [facility] 06/17/22 at 0600, Until Discontinu ed, Routine ziprasidone 0 Yes 120mg 120 mg, Un henry (GEODON) 9-15 Oral, QHS, ity o f capsule 120 08:30: First dose [place] mg 00 on [facility] 06/17/22 at Branch 0330, Until Discontinu ed, Routine NaCl 0.9% 2021- No 1000mL at 100 Uni vers (NS) IV 06-17 09-17 mL/hr, IV ity of infusion 07:15: 22:39 Infusion, [place] 1,000 mL 00 :15 CONTINUOUS Medic al , Starting Branch on [place] 06/17/22 at 0215, Until 06/19/22 at 1739, Routine NaCl 0.9% 2021- No 1000mL at 999 Uni vers (NS) bolus 06-17 09-15 mL/hr, ity of infusion 07:15: 07:48 1,000 mL, [place] 1,000 mL 00 :04 IV Medical Piggyback, [place] ONCE, 1 dose, On [facility] 06/17/22 at 0215, RUBEN gabapentin Yes 300mg 300 mg, Uni vers (NEURONTIN) 15 Oral, TID, it y of capsule 300 06:30: First dose [place] mg 00 on [facility] 06/17/22 at Branch 0130, Until Discontinu ed, Routine hydrOXYzine Yes 25mg 25 mg, Univ ers (ATARAX) 15 Oral, ity of tablet 25 06:19: Q6HPRN, [place] mg 36 Starting Medical on [facility] 06/17/22 at 0119, Until Discontinu ed, Routine, Anxiety zolpidem Yes 10mg 10 mg, Univers (AMBIEN) 915 Oral, ity of tablet 10 06:18: QHSPRN, [place] mg 39 Starting Medical on [facility] 06/17/22 at 0118, Until Discontinu ed, Insomnia LORazepam Yes .5mg 0.5 mg, Unive rs (ATIVAN) 15 Oral, ity of tablet 0.5 06:16: BIDPRN, [place] mg 51 Starting Medical on [facility] 06/17/22 at 0116, Until Discontinu ed, Routine, Agitation sennosides Yes 8.6mg 8.6 mg, Uni vers (SENOKOT) 9-15 Oral, BID, ity of tablet 8.6 06:15: First dose [place] mg 00 on [facility] 06/17/22 at Branch 0115, Until Discontinu ed, Routine docusate Yes 100mg 100 mg, Unive rs (COLACE) 06-17 Oral, BID, ity o f capsule 100 06:15: First dose [place] mg 00 on [place] Medical 06/17/22 at Branch 0115, Until Discontinu ed, Routine pantoprazol 2021- No 40mg 40 mg, Uni vers e 06-17 Slow IV ity of (PROTONIX) 06:15: 15:58 Push, [place] injection 00 :22 Q12H, Medical 40 mg First dose Branch on [place] 06/17/22 at 0115, Until Discontinu ed ondansetron Yes 4mg 4 mg, Slow Univers (ZOFRAN 06-17 IV Push, ity of (PF)) 06:06: Q6HPRN, [place] injection 4 09 Starting Medi carlos mg on [facility] 06/17/22 at 0106, Until Discontinu ed, Routine, Nausea and Vomiting (N/V) morpHINE (4 No 4mg 4 mg, Slow Univers mg/mL) 06-17 IV Push, ity of injection 4 03:15: 03:21 [place] :[place] dose, On [facility] Branch 06/16/22 at 2215, STAT ondansetron 2021- No 4mg 4 mg, Slow Univers (ZOFRAN 06-17 IV Push, ity of (PF)) 02:15: 01:17 ONCE, 1 [place] injection 4 00 :00 dose, On Medi carlos mg [facility] 06/16/22 at 2115, RUBEN morpHINE (2 No 4mg 4 mg, Slow Univers mg/mL) 06-17 IV Push, ity of injection 4 02:15: 01:17 [place] :[place] dose, On [facility] 06/16/22 at 2115, STAT iopamidol 0 2021- No [id number] 70mL 70 mL, U nivers (ISOVUE 06-17 Intravenou ity o f 370-500 mL) 01:45: 01:45 s, ONCE, 1 [place] injection 00 :00 dose, On Medica l 70 mL [facility] 06/16/22 at 2045, Routine piperacilli 2021- No [...] dose, On 06/16/22 at 1900, STAT ibuprofen 2021- No 600mg 600 mg, Uni vers (IBU) 06-16 Oral, ity of tablet 600 23:00: 00:11 ONCE, 1 [place] as mg 00 :00 dose, On Medical Wed Branch 06/16/22 at 1800, RUBEN buPROPion Yes 150mg QD Take [address] [facility] [facility] [...] needed for Anxiety. gabapentin 2021-0 Yes 600mg Q.[id number] Take [address] [address] (NEURONTIN) 7-13 [id number] mg by L ukes 600 MG 13:36: [...] needed for Anxiety. gabapentin 0 Yes 600mg Q.[id number] Take [address] (NEURONTIN) 7-13 [id number] mg by L ukes 600 MG 13:36: [...] needed for Anxiety. gabapentin 2022-0 Yes 600mg Q.[id number] Take [address] [facility] [address] (NEURONTIN) 7-13 [id number] mg by L ukes 600 MG 13:36: [...] needed for Anxiety. gabapentin 2021-0 Yes 600mg Q.[id number] Take [address] (NEURONTIN) 7-13 [id number] mg by L ukes 600 MG 13:36: [...] needed for Anxiety. gabapentin 2021-0 Yes 600mg Q.[id number] Take [address] (NEURONTIN) 7-13 [id number] mg by L ukes 600 MG 13:36: [...] needed for Anxiety. gabapentin 2021-0 Yes 600mg Q.[id number] Take [address] (NEURONTIN) 7-13 [id number] mg by L ukes 600 MG 13:36: [...] needed for Anxiety. gabapentin 2021-0 Yes 600mg Q.[id number] Take [address] (NEURONTIN) 7-13 [id number] mg by L ukes 600 MG 13:36: [...] mouth [facility] 4 MG tablet 13:36: nightly. [place] [address] Center LORazepam 2022-0 Yes .5mg Take 0.5 [...] (two) Center times daily as needed. zolpidem 2022-[address] [facility] (AMBIEN) 10 3-23 [facility] mg tablet 00:00: Medical 00 [place] zolpidem 2022-[address] [facility] (AMBIEN) 10 3-23 [facility] mg tablet 00:00: Medical 00 [place] zolpidem 2022-[address] [facility] (AMBIEN) 10 3-23 [facility] mg tablet 00:00: Medical 00 [place] zolpidem 2022-[address] [facility] (AMBIEN) 10 3-23 [facility] mg tablet 00:00: Medical 00 [place] zolpidem 2022-[address] [facility] (AMBIEN) 10 3-23 [facility] mg tablet 00:00: Medical 00 [place] zolpidem [address] [facility] (AMBIEN) 10 3-23 [facility] mg tablet 00:00: Medical 00 [place] zolpidem [address] [facility] (AMBIEN) 10 3-23 [facility] mg tablet 00:00: Medical 00 [place] lamoTRIgine [address] [facility] (LaMICtal) 3-15 [facility] 200 MG 00:00: Medical tablet 00 [place] lamoTRIgine [address] [facility] (LaMICtal) 3-15 [facility] 200 MG 00:00: Medical tablet 00 [place] lamoTRIgine Yes [facility] (LaMICtal) 3-15 [facility] 200 MG 00:00: Medical tablet 00 [place] lamoTRIgine Yes [facility] (LaMICtal) 3-15 [facility] 200 MG 00:00: Medical tablet 00 [place] lamoTRIgine Yes [facility] (LaMICtal) 3-15 [facility] 200 MG 00:00: Medical tablet 00 [place] lamoTRIgine Yes [facility] (LaMICtal) 3-15 [facility] 200 MG 00:00: Medical tablet 00 [place] lamoTRIgine Yes [facility] (LaMICtal) 3-15 [facility] 200 MG 00:00: Medical tablet 00 [place] venlafaxine [address] [facility] (EFFEXOR) 3-04 [facility] 75 MG 00:00: Medical tablet 00 [place] venlafaxine [address] [facility] (EFFEXOR) 3-04 [facility] 75 MG 00:00: Medical tablet 00 [place] venlafaxine [address] [facility] (EFFEXOR) 3-04 [facility] 75 MG 00:00: Medical tablet 00 [place] venlafaxine [address] [facility] (EFFEXOR) 3-04 [facility] 75 MG 00:00: Medical tablet 00 [place] venlafaxine [address] [facility] (EFFEXOR) 3-04 [facility] 75 MG 00:00: Medical tablet 00 [place] venlafaxine [address] [facility] (EFFEXOR) 3-04 [facility] 75 MG 00:00: Medical tablet 00 [place] venlafaxine [address] [facility] (EFFEXOR) 3-04 [facility] 75 MG 00:00: Medical tablet 00 [place] iopamidol 2021- No [id number] 100mL 100 mL, Univers (ISOVUE -14 10-16 [...] Intra-op lactated 2020-10- No 1000mL at 42 [place] [facility] rs ringers IV - 12-21 mL/hr, ity [...] mouth ity of mg capsule 12:23: daily. [address] gabapentin 2020-10 Yes 300mg Take 300 Un henry 300 mg 2-21 mg by ity of capsule 12:23: mouth 3 [place] 30 (three) Medical times Branch daily. Indication s: 1 in the Am and 4 at bed time ziprasidone 2020-10 Yes 60mg Take 60 mg Univers (GEODON) 60 2-21 by mouth ity of mg capsule 12:23: daily. [address] PANTOPRAZOL 2020-10 Yes 40mg Take 40 mg Univers E SODIUM 2-21 by mouth. ity of (PROTONIX 12:23: [place] ORAL) [address] [place] [address] tiZANidine 2020-10 Yes 4mg Take 4 mg Un henry (ZANAFLEX) 2-21 by mouth 2 ity of 4 mg 12:23: (two) [place] capsule 30 times Medical daily. Branch IRON &IRON 2020-10 Yes Take by Univ ers ASP 2-21 mouth. ity of GLY-FA-MV,M 12:23: Indication [place] IN38 ORAL 30 s: iron Medical injectio Branch once a month DICLOFENAC 2020-10 Yes Take 50 mg U nivers POTASSIUM 2-21 base by ity of (CAMBIA 12:23: mouth. [address] propranolol 2020-10 Yes 20mg Take 20 mg Univers 20 mg 2-21 by mouth ity of tablet 12:23: daily. [address] FLUoxetine 2020-10 Yes 40mg Take 40 mg U nivers (PROZAC) 40 2-21 by mouth ity of mg capsule 12:23: daily. [address] gabapentin 2020-10 Yes 300mg Take 300 Un henry 300 mg 2-21 mg by ity of capsule 12:23: mouth 3 [place] 30 (three) Medical times [place] daily. Indication s: 1 in the Am and 4 at bed time ziprasidone 2020-10 Yes 60mg Take 60 mg Univers (GEODON) 60 2-21 by mouth ity of mg capsule 12:23: daily. [address] PANTOPRAZOL 2020-10 Yes 40mg Take 40 mg Univers E SODIUM 2-21 by mouth. ity of (PROTONIX 12:23: [place] ORAL) 30 Medical Branch tiZANidine 2020-10 Yes 4mg Take 4 mg Un henry (ZANAFLEX) 2-21 by mouth 2 ity of 4 mg 12:23: (two) [place] capsule 30 times Medical daily. Branch IRON &IRON 2020-10 Yes Take by [facility] ers ASP 2-21 mouth. ity of GLY-FA-MV,M 12:23: Indication [place] IN38 ORAL 30 s: iron Medical injectio Branch once a month DICLOFENAC 2020-10 Yes Take 50 mg U nivers POTASSIUM 2-21 base by ity of (CAMBIA 12:23: mouth. [place] ORAL) Medical Branch propranolol 2020-10 Yes 20mg Take 20 mg Univers 20 mg 2-21 by mouth ity of tablet 12:23: daily. [address] FLUoxetine 2020-10 Yes 40mg Take 40 mg U nivers (PROZAC) 40 2-21 by mouth ity of mg capsule 12:23: daily. [address] gabapentin 2020-10 Yes 300mg Take 300 Un henry 300 mg 2-21 mg by ity of capsule 12:23: mouth 3 [place] 30 (three) Medical times Branch daily. Indication s: 1 in the Am and 4 at bed time ziprasidone 2020-10 Yes 60mg Take 60 mg Univers (GEODON) 60 2-21 by mouth ity of mg capsule 12:23: daily. [address] PANTOPRAZOL 2020-10 Yes 40mg Take 40 mg Univers E SODIUM 2-21 by mouth. ity of (PROTONIX 12:23: [place] ORAL) [address] [place] [address] Branch tiZANidine 2020-10 Yes 4mg Take 4 mg Un henry (ZANAFLEX) 2-21 by mouth 2 ity of 4 mg 12:23: (two) [place] capsule 30 times Medical daily. Branch IRON &IRON 2020-10 Yes Take by [facility] ers ASP 2-21 mouth. ity of GLY-FA-MV,M 12:23: Indication [place] IN38 ORAL 30 s: iron Medical injectio Branch once a month DICLOFENAC 2020-10 Yes Take 50 mg U nivers POTASSIUM 2-21 base by ity of (CAMBIA 12:23: mouth. [place] ORAL) 30 Medical Branch propranolol 2020-10 Yes 20mg Take 20 mg Univers 20 mg 2-21 by mouth ity of tablet 12:23: daily. [address] FLUoxetine 2020-10 Yes 40mg Take 40 mg U nivers (PROZAC) 40 2-21 by mouth ity of mg capsule 12:23: daily. [address] gabapentin 2020-10 Yes 300mg Take 300 Un henry 300 mg 2-21 mg by ity of capsule 12:23: mouth 3 [place] 30 (three) Medical times [place] daily. Indication s: 1 in the Am and 4 at bed time ziprasidone 2020-10 Yes 60mg Take 60 mg Univers (GEODON) 60 2-21 by mouth ity of mg capsule 12:23: daily. [address] PANTOPRAZOL 2020-10 Yes 40mg Take 40 mg Univers E SODIUM 2-21 by mouth. ity of (PROTONIX 12:23: [place] ORAL[address] tiZANidine 2020-10 Yes 4mg Take 4 mg Un henry (ZANAFLEX) 2-21 by mouth 2 ity of 4 mg 12:23: (two) [place] capsule 30 times Medical daily. Branch IRON &IRON 2020-10 Yes Take by Univ ers ASP 2-21 mouth. ity of GLY-FA-MV,M 12:23: Indication [place] IN ORAL 30 s: iron Medical injectio Branch once a month DICLOFENAC 2020-10 Yes Take 50 mg U nivers POTASSIUM 2-21 base by ity of (CAMBIA 12:23: mouth. [address] propranolol 2020-10 Yes 20mg Take 20 mg Univers 20 mg 2-21 by mouth ity of tablet 12:23: daily. [address] FLUoxetine 2020-10 Yes 40mg Take 40 mg U nivers (PROZAC) 40 2-21 by mouth ity of mg capsule 12:23: daily. [address] gabapentin 2020-10 Yes 300mg Take 300 Un [place] 300 mg 2-21 mg by ity of capsule 12:23: mouth 3 [place] [address] (three) Medical times [place] daily. Indication s: 1 in the Am and 4 at bed time ziprasidone 2020-10 Yes 60mg Take 60 mg Univers (GEODON) 60 2-21 by mouth ity of mg capsule 12:23: daily. [address] PANTOPRAZOL 2020-10 Yes 40mg Take 40 mg Univers E SODIUM 2-21 by mouth. ity of (PROTONIX 12:23: [place] ORAL) 30 [facility] tiZANidine 2020-10 Yes 4mg Take 4 mg [...] base by ity of (CAMBIA 12:23: mouth. [place] ORAL) 30 Medical Branch propranolol 2020-10 Yes 20mg Take 20 mg Univers 20 mg 2-21 by mouth ity of tablet 12:23: daily. [address] water for 2020-10- No PRN, Univers irrigation 10-20 Starting ity of irrigation 18:20: 21:01 on [facility] [place] solution 00 :23 08/20/21 Medical at 1220, Branch Until [place] 08/20/21 at 1501, Routine, Intra-op simethicone 2020-10- No PRN, [facility] rs (GAS RELIEF 10-20 Starting ity of (SIMETHICON 18:20: 21:01 on [place] Faustino as E)) 40 00 :23 08/20/21 Medical mg/0.6 mL at 1220, Branch drops Until [place] 08/20/21 at 1501, Routine, Intra-op lactated 2020-10- No 1000mL at 42 [facility] rs ringers IV -18 11-18 mL/hr, ity of infusion 18:00: 17:59 1,000 mL, [place] as 1,000 mL 00 :00 IV Medical Infusion, Branch ONCE, 1 dose, On [place] 08/20/21 at 1200, Routine, DSU Pre-op lactated 2020-10- No 1000mL at 42 [place] [facility] rs ringers IV -18 11-18 mL/hr, ity of infusion 18:00: 17:59 1,000 mL, [place] as 1,000 mL 00 :00 IV Medical Infusion, Branch ONCE, 1 dose, On [place] 08/20/21 at 1200, Routine, DSU Pre-op FLUoxetine 2020-10 Yes 40mg Take 40 mg U nivers (PROZAC) 40 1-18 by mouth ity of mg capsule 13:01: daily. [address] gabapentin 2020-10 Yes 300mg Take 300 Un [place] 300 mg 1-18 mg by ity of capsule 13:01: mouth 3 [place] [address] (three) Medical times [place] daily. Indication s: 1 in the Am and 4 at bed time ziprasidone 2020-10 Yes 60mg Take 60 mg Univers (GEODON) 60 1-18 by mouth ity of mg capsule 13:01: daily. [address] PANTOPRAZOL 2020-10 Yes 40mg Take 40 mg Univers E SODIUM 1-18 by mouth. ity of (PROTONIX 13:01: [place] ORAL) [address] [place] [address] Branch tiZANidine 2020-10 Yes 4mg Take 4 mg Un henry (ZANAFLEX) 1-18 by mouth 2 ity of 4 mg 13:01: (two) [place] capsule 23 times [facility] daily. Branch IRON &IRON 2020-10 Yes Take by Univ ers ASP 1-18 mouth. ity of GLY-FA-MV,M 13:01: Indication [place] IN ORAL 23 s: iron Medical injectio Branch once a month DICLOFENAC 2020-10 Yes Take 50 mg U nivers POTASSIUM 1-18 base by ity of (CAMBIA 13:01: mouth. [facility]) Medical Branch propranolol 2020-10 Yes 20mg Take 20 mg Univers 20 mg 1-18 by mouth ity of tablet 13:01: daily. [address] FLUoxetine 2020-10 Yes 40mg Take 40 mg U nivers (PROZAC) 40 1-18 by mouth ity of mg capsule 13:01: daily. [address] gabapentin 2020-10 Yes 300mg Take 300 Un [place] 300 mg 1-18 mg by ity of capsule 13:01: mouth 3 [place] [address] (three) Medical times [place] daily. Indication s: 1 in the Am and 4 at bed time ziprasidone 2020-10 Yes 60mg Take 60 mg Univers (GEODON) 60 1-18 by mouth ity of mg capsule 13:01: daily. [address] PANTOPRAZOL 2020-10 Yes 40mg Take 40 mg Univers E SODIUM 1-18 by mouth. ity of (PROTONIX 13:01: [place] ORAL) 23 Medical Branch tiZANidine 2020-10 Yes 4mg Take 4 mg Un henry (ZANAFLEX) 1-18 by mouth 2 ity of 4 mg 13:01: (two) [place] capsule 23 times Medical daily. Branch IRON &IRON 2020-10 Yes Take by [facility] ers ASP 1-18 mouth. ity of CONSTANTINO,M 13:01: Indication [place] IN38 ORAL 23 s: iron Medical injectio Branch once a month DICLOFENAC 2020-10 Yes Take 50 mg U nivers POTASSIUM 1-18 base by ity of (CAMBIA 13:01: mouth. [place] ORAL) Medical Branch propranolol 2020-10 Yes 20mg Take 20 mg Univers 20 mg 1-18 by mouth ity of tablet 13:01: daily. [address] FLUoxetine 2020-10 Yes 40mg Take 40 mg U nivers (PROZAC) 40 1-18 by mouth ity of mg capsule 13:01: daily. [address] gabapentin 2020-10 Yes 300mg Take 300 Un [place] 300 mg 1-18 mg by ity of capsule 13:01: mouth 3 [place] [address] (three) Medical times Branch daily. Indication s: 1 in the Am and 4 at bed time ziprasidone 2020-10 Yes 60mg Take 60 mg Univers (GEODON) 60 1-18 by mouth ity of mg capsule 13:01: daily. [address] PANTOPRAZOL 2020-10 Yes 40mg Take 40 mg Univers E SODIUM 1-18 by mouth. ity of (PROTONIX 13:01: [place] ORAL) Medical Branch tiZANidine 2020-10 Yes 4mg Take 4 mg Un henry (ZANAFLEX) 1-18 by mouth 2 ity of 4 mg 13:01: (two) [place] capsule 23 times Medical daily. Branch IRON &IRON 2020-10 Yes Take by [facility] ers ASP 1-18 mouth. ity of CONSTANTINOM 13:01: Indication [place] IN38 ORAL 23 s: iron Medical injectio Branch once a month DICLOFENAC 2020-10 Yes Take 50 mg U nivers POTASSIUM 1-18 base by ity of (CAMBIA 13:01: mouth. [place] ORAL) Medical Branch propranolol 2020-10 Yes 20mg Take 20 mg Univers 20 mg 1-18 by mouth ity of tablet 13:01: daily. [address] Branch Sulfamethox Sulfamethox 2020- No 1{table [...] mouth [place] 00 daily. Medical Branch amLODIPine 2016- Yes 5mg Take 1 Unive rs 5 [...] Take 1 Unive rs 5 mg tablet 9- tablet by ity of 00:00: mouth [place] 00 daily. Medical Branch amLODIPine 2017-0 Yes 5mg Take 1 Unive rs 5 mg tablet 9- tablet by ity of 00:00: mouth [place] 00 daily. Medical Branch amLODIPine 2017-0 Yes 5mg Take 1 Unive rs 5 mg tablet 9- tablet by ity of 00:00: mouth [place] 00 daily. Medical Branch amLODIPine 2017- 202- No 5mg Take 1 Univ ers 5 mg tablet 06-10 tablet by it y of 00:00: 00:00 mouth [place] 00 :00 daily. Medical Branch Amitiza Amitiza Yes Davin 1 capsule Co mmon [place]att with food [facility] Pantoprazol Pantoprazol Yes Davin 1 tablet Common e Sodium e Sodium Platt [facility] Propranolol Propranolol Yes Davin 1 tablet Common HCl HCl Platt on an Spirit empty - [facility] stomach [facility] Vitamin D3 Vitamin D3 Yes Davin 1 capsule Common Platt [facility] Levothyroxi Levothyroxi Yes Davin 1 tablet Common ne Sodium ne Sodium Platt on an Spi rit empty - [facility]I stomach in [facility] Promethazin Promethazin Yes Davin 5 ml as Common e-DM e-DM Platt needed Spirit Nausea/Vom - [facility] iting [facility] Clonazepam Clonazepam Yes Davin 1 tablet Common Platt at bedtime [facility] Geodon Geodon Yes Davin 1 capsule Comm on Platt with food [facility] baclofen baclofen Yes Davin 1 tab as C ommon Platt needed for [facility] pain [facility] Iron Iron Yes Davin not Common Supplement Supplement Platt defined [facility] Ziprasidone Ziprasidone Yes Davin 1 capsule Common HCl HCl Platt with food [facility] Tizanidine Tizanidine Yes Davin 1 tablet Common HCl HCl Platt [facility] HydrOXYzine HydrOXYzine Yes Davin 1 tablet Common HCl HCl Platt [facility] Gabapentin Gabapentin Yes Davin 1 tablet Common Platt am and 2 Spirit tabs [facility] Gabapentin Gabapentin Yes Davin TAKE ONE Common [place]att TABLET BY [facility] MOUTH - [facility] EVERY [facility] MORNING [facility] AND THEN Medical TAKE TWO Center TABLETS BY MOUTH EVERY EVENING Wellbutrin Wellbutrin Yes Davin 1 tablet Common XL XL Platt in the [facility] Fluoxetine Fluoxetine Yes Davin 1 capsule Common HCl HCl Platt [facility] Pantoprazol Pantoprazol No Pantoprazo e Sodium 40 e Sodium 40 le Sodium MG MG 40 MG Promethazin Promethazin No QID Promethazi e-DM e-DM ne-DM 6.25-15 6.25-15 6.25-15 MG/5ML MG/5ML MG/5ML hydrOXYzine hydrOXYzine No 1{table hydrOXYzin HCl 50 MG HCl 50 MG t_as_ne e HCl 50 eded} MG Meclizine Meclizine No 1{table BID Meclizine HCl 25 MG HCl 25 MG t_as_ne HCl 25 MG eded} lamoTRIgine lamoTRIgine No 1{table QD lamoTRIgin 200 MG 200 MG t} e 200 MG Propranolol Propranolol No 1{table BID Propranolo HCl 20 MG HCl 20 MG t_on_an l HCl 20 _empty_ MG stomach } HYDROcodone HYDROcodone No 1{table QID HYDROcodon -Acetaminop -Acetaminop t_as_ne e-Acetamin hen 7.5-325 hen 7.5-325 eded} ophen MG MG 7.5-325 MG Levothyroxi Levothyroxi No QD Levothyrox ne Sodium ne Sodium ine Sodium 50 MCG 50 MCG 50 MCG Ziprasidone Ziprasidone No 2{capsu BID Ziprasidon HCl 60 MG HCl 60 MG le_with e HCl 60 _food} MG Ondansetron Ondansetron No Ondansetro HCl 4 MG HCl 4 MG n HCl 4 MG Propranolol Propranolol No Propranolo [...] HCl 10 MG l HCl 10 MG [facility] FLUoxetine FLUoxetine No 1{capsu QD FLUoxetine HCl [...] ne-DM 6.25-15 6.25-15 6.25-15 MG/5ML MG/5ML MG/5ML [place] lamoTRIgine lamoTRIgine No 1{table QD lamoTRIgin 100 [...] HCl 10 MG Effexor Effexor No Effexor [facility] [place] [facility] [place] Pantoprazol Pantoprazol No Pantoprazo e Sodium 40 [...] ne-DM 6.25-15 6.25-15 6.25-15 MG/5ML MG/5ML MG/5ML [place] [facility] [place] Pantoprazol Pantoprazol No Pantoprazo e Sodium 40 [...] HCl 4 MG t} HCl 4 MG [place] [facility] [place] Effexor Effexor No Effexor Geodon 60 Geodon [...] MG 200 MG t} e 200 MG [facility] [place] [facility] [place] Propranolol Propranolol No 1{table BID Propranolo HCl [...] MG 200 MG t} e 200 MG [place] [facility] [place] Propranolol Propranolol No 1{table BID Propranolo HCl [...] MG le_with e HCl 60 _food} MG [place] lamoTRIgine lamoTRIgine No 1{table QD lamoTRIgin 200 [...] MG le_with e HCl 60 _food} MG [place] lamoTRIgine lamoTRIgine No 1{table QD lamoTRIgin 200 [...] MG le_with e HCl 60 _food} MG [place] lamoTRIgine lamoTRIgine No 1{table QD lamoTRIgin 200 [...] MG le_with e HCl 60 _food} MG [place] No [place] lamoTRIgine lamoTRIgine No 1{table QD lamoTRIgin 200 [...] HCl 10 MG l HCl 10 MG [place] [facility] [place] Iron Iron No Iron Supplement Supplement Supplement [...] HCl 10 MG l HCl 10 MG [place] LORazepam LORazepam No 1{table QD LORazepam 0.5 MG 0.5 MG t_at_be 0.5 MG dtime_a s_neede d} hydrOXYzine hydrOXYzine No 1{table hydrOXYzin HCl 50 MG HCl 50 MG t_as_ne e HCl 50 eded} MG Propranolol Propranolol No 1{table BID Propranolo HCl 20 MG HCl 20 MG t_on_an l HCl 20 _empty_ MG stomach } Gabapentin Gabapentin No Gabapentin 600 MG 600 MG 600 MG [facility] [place] [facility] [place] Pantoprazol Pantoprazol No 1{table QD Pantoprazo e [...] MG t_with_ e HCl 75 food} MG [place] [facility] [place] Ziprasidone Ziprasidone No 2{capsu BID Ziprasidon HCl [...] MG t_with_ e HCl 75 food} MG [place] Ziprasidone Ziprasidone No 2{capsu BID Ziprasidon HCl [...] MG t_with_ e HCl 75 food} MG [place] Ziprasidone Ziprasidone No 2{capsu BID Ziprasidon HCl [...] HCl 20 MG l HCl 20 MG [place] [facility] [place] Gabapentin Gabapentin No Gabapentin 600 MG 600 [...] Sodium 50 MCG 50 MCG 50 MCG [place] [facility] [place] Pantoprazol Pantoprazol No Pantoprazo e Sodium 40 [...] Gabapentin 600 MG 600 MG 600 MG [place] [facility] [place] Amitiza 24 Amitiza 24 No 1{capsu BID [...] t} le Sodium MG MG 40 MG [place] [facility] [place] Vitamin D3 Vitamin D3 No 1{capsu QD [...] t} le Sodium MG MG 40 MG [place] No [place] Vitamin D3 Vitamin D3 No 1{capsu QD [...] Sodium 50 MCG 50 MCG 50 MCG [place] No [place] Vitamin D3 Vitamin D3 No 1{capsu QD [...] HCl 4 MG n HCl 4 MG [place] Promethazin Promethazin No QID Promethazi e-DM e-DM ne-DM 6.25-15 6.25-15 6.25-15 MG/5ML MG/5ML MG/5ML [place] Geodon 60 Geodon 60 No 1{capsu BID [...] MG dtime_a s_neede d} hydrOXYzine hydrOXYzine No hydrOXYzin HCl 50 MG HCl 50 MG e HCl 50 MG Amitiza 24 Amitiza 24 No 1{capsu BID Amitiza 24 MCG MCG le_with MCG _food} tiZANidine tiZANidine No tiZANidine HCl 4 MG HCl 4 MG HCl 4 MG tiZANidine tiZANidine No 1{table tiZANidine HCl 4 MG HCl 4 MG t} HCl 4 MG Meclizine Meclizine No 1{table BID Meclizine HCl 12.5 MG HCl 12.5 MG t_as_ne HCl 12.5 eded} MG Venlafaxine Venlafaxine No 1{table QD Venlafaxin HCl 75 MG HCl 75 MG t_with_ e HCl 75 food} MG Diclofenac Diclofenac No BID Diclofenac Potassium Potassium Potassium 50 MG 50 MG 50 MG LORazepam LORazepam No 1{table QD LORazepam 0.5 MG 0.5 MG t_at_be 0.5 MG dtime_a s_neede d} baclofen baclofen No baclofen 10mg 10mg 10mg Geodon 60 Geodon 60 No 1{capsu BID Geodon 60 MG MG le_with MG _food} Pantoprazol Pantoprazol No 1{table QD Pantoprazo e Sodium 40 e Sodium 40 t} le Sodium MG MG 40 MG Gabapentin Gabapentin No BID Gabapentin 600 MG 600 MG 600 MG Promethazin Promethazin No QID Promethazi e-DM e-DM ne-DM 6.25-15 6.25-15 6.25-15 MG/5ML MG/5ML MG/5ML hydrOXYzine hydrOXYzine No 1{table hydrOXYzin HCl 50 MG HCl 50 MG t_as_ne e HCl 50 eded} MG Meclizine Meclizine No 1{table BID Meclizine HCl 25 MG HCl 25 MG t_as_ne HCl 25 MG eded} lamoTRIgine lamoTRIgine No 1{table QD lamoTRIgin 200 MG 200 MG t} e 200 MG Propranolol Propranolol No 1{table BID Propranolo HCl 20 MG HCl 20 MG t_on_an l HCl 20 _empty_ MG stomach } HYDROcodone HYDROcodone No 1{table QID HYDROcodon -Acetaminop -Acetaminop t_as_ne e-Acetamin hen 7.5-325 hen 7.5-325 eded} ophen MG MG 7.5-325 MG Levothyroxi Levothyroxi No QD Levothyrox ne Sodium ne Sodium ine Sodium 50 MCG 50 MCG 50 MCG Ziprasidone Ziprasidone No 2{capsu BID Ziprasidon HCl 60 MG HCl 60 MG le_with e HCl 60 _food} MG Ondansetron Ondansetron No Ondansetro HCl 4 MG HCl 4 MG n HCl 4 MG hydrOXYzine hydrOXYzine No 1{table hydrOXYzin HCl 50 MG HCl 50 MG t_as_ne e HCl 50 eded} MG hydrOXYzine hydrOXYzine No hydrOXYzin HCl 50 MG HCl 50 MG e HCl 50 MG Amitiza 24 Amitiza 24 No 1{capsu BID Amitiza 24 MCG MCG le_with MCG _food} tiZANidine tiZANidine No tiZANidine HCl 4 MG HCl 4 MG HCl 4 MG tiZANidine tiZANidine No 1{table tiZANidine HCl 4 MG HCl 4 MG t} HCl 4 MG Meclizine Meclizine No 1{table BID Meclizine HCl 12.5 MG HCl 12.5 MG t_as_ne HCl 12.5 eded} MG Venlafaxine Venlafaxine No 1{table QD Venlafaxin HCl 75 MG HCl 75 MG t_with_ e HCl 75 food} MG Diclofenac Diclofenac No BID Diclofenac Potassium Potassium Potassium 50 MG 50 MG 50 MG LORazepam LORazepam No 1{table QD LORazepam 0.5 MG 0.5 MG t_at_be 0.5 MG dtime_a s_neede d} baclofen baclofen No baclofen 10mg 10mg 10mg Amitiza 24 Amitiza 24 No 1{capsu BID Amitiza 24 MCG MCG le_with MCG _food} Geodon 60 Geodon 60 No 1{capsu BID Geodon 60 MG MG le_with MG _food} Pantoprazol Pantoprazol No 1{table QD Pantoprazo e Sodium 40 e Sodium 40 t} le Sodium MG MG 40 MG Gabapentin Gabapentin No BID Gabapentin 600 MG 600 MG 600 MG Promethazin Promethazin No QID Promethazi e-DM e-DM ne-DM 6.25-15 6.25-15 6.25-15 MG/5ML MG/5ML MG/5ML hydrOXYzine hydrOXYzine No 1{table hydrOXYzin HCl 50 MG HCl 50 MG t_as_ne e HCl 50 eded} MG Meclizine Meclizine No 1{table BID Meclizine HCl 25 MG HCl 25 MG t_as_ne HCl 25 MG eded} lamoTRIgine lamoTRIgine No 1{table QD lamoTRIgin 200 MG 200 MG t} e 200 MG Propranolol Propranolol No 1{table BID Propranolo HCl 20 MG HCl 20 MG t_on_an l HCl 20 _empty_ MG stomach } HYDROcodone HYDROcodone No 1{table QID HYDROcodon -Acetaminop -Acetaminop t_as_ne e-Acetamin hen 7.5-325 hen 7.5-325 eded} ophen MG MG 7.5-325 MG Levothyroxi Levothyroxi No QD Levothyrox ne Sodium ne Sodium ine Sodium 50 MCG 50 MCG 50 MCG Gabapentin Gabapentin No Gabapentin 600 MG 600 MG 600 MG Ziprasidone Ziprasidone No 2{capsu BID Ziprasidon HCl 60 MG HCl 60 MG le_with e HCl 60 _food} MG Ondansetron Ondansetron No Ondansetro HCl 4 MG HCl 4 MG n HCl 4 MG hydrOXYzine hydrOXYzine No hydrOXYzin HCl 50 MG HCl 50 MG e HCl 50 MG Amitiza 24 Amitiza 24 No 1{capsu BID Amitiza 24 MCG MCG le_with MCG _food} Pantoprazol Pantoprazol No 1{table QD Pantoprazo e Sodium 40 e Sodium 40 t} le Sodium MG MG 40 MG tiZANidine tiZANidine No tiZANidine HCl 4 MG HCl 4 MG HCl 4 MG tiZANidine tiZANidine No 1{table tiZANidine HCl 4 MG HCl 4 MG t} HCl 4 MG Meclizine Meclizine No 1{table BID Meclizine HCl 12.5 MG HCl 12.5 MG t_as_ne HCl 12.5 eded} MG Venlafaxine Venlafaxine No 1{table QD Venlafaxin HCl 75 MG HCl 75 MG t_with_ e HCl 75 food} MG Diclofenac Diclofenac No BID Diclofenac Potassium Potassium Potassium 50 MG 50 MG 50 MG LORazepam LORazepam No 1{table QD LORazepam 0.5 MG 0.5 MG t_at_be 0.5 MG dtime_a s_neede d} baclofen baclofen No baclofen 10mg 10mg 10mg Geodon 60 Geodon 60 No 1{capsu BID Geodon 60 MG MG le_with MG _food} Pantoprazol Pantoprazol No 1{table QD Pantoprazo e Sodium 40 e Sodium 40 t} le Sodium MG MG 40 MG Gabapentin Gabapentin No BID Gabapentin 600 MG 600 MG 600 MG Immunizations Ordered Filled Date Status Comments Source Immunization Name Immunization Name Diogenes COVID-19 Moderna COVID-19 2022-11-20 [facility] Vaccine, Bivalent 08:50:00 [facility] Moderna COVID-19 Moderna COVID-19 2021-02-14 Completed [facility] Vaccine Vaccine 09:03:00 [facility] Moderna COVID-19 Moderna COVID-19 2021-02-14 Completed [facility] Vaccine Vaccine 09:03:00 [facility] Moderna COVID-19 Moderna COVID-19 2021-02-14 Completed [facility] Vaccine Vaccine 09:03:00 [facility] Moderna COVID-19 Moderna COVID-19 2021-02-14 Completed [facility] Vaccine Vaccine 09:03:00 [facility] Moderna COVID-19 Moderna COVID-19 2021-02-14 Completed [facility] Vaccine Vaccine 09:03:00 [facility] Moderna COVID-19 Moderna COVID-19 2021-02-14 Completed [facility] Vaccine Vaccine 09:03:00 [facility] Moderna COVID-19 Moderna COVID-19 2021-02-14 Completed [facility] Vaccine Vaccine 09:03:00 [facility] Moderna COVID-19 Moderna COVID-19 2021-02-14 Completed [facility] Vaccine Vaccine 09:03:00 [facility] Moderna COVID-19 Moderna COVID-19 2021-02-14 Completed [facility] Vaccine Vaccine 09:03:00 [facility] Moderna COVID-19 Moderna COVID-19 2021-02-14 Completed [facility] Vaccine Vaccine 09:03:00 [facility] Moderna COVID-19 Moderna COVID-19 2021-02-14 Completed [facility] Vaccine Vaccine 09:03:00 [facility] Moderna COVID-19 Moderna COVID-19 2021-02-14 Completed [facility] Vaccine Vaccine 09:03:00 [facility] Moderna COVID-19 Moderna COVID-19 2021-02-14 Completed [facility] Vaccine Vaccine 09:03:00 [facility] Moderna COVID-19 Moderna COVID-19 2021-02-14 Completed [facility] Vaccine Vaccine 09:03:00 [facility] Moderna COVID-19 Moderna COVID-19 2021-02-14 Completed [facility] Vaccine Vaccine 09:03:00 [facility] Moderna COVID-19 Moderna COVID-19 2021-02-14 Completed [facility] Vaccine Vaccine 09:03:00 [facility] Moderna COVID-19 Moderna COVID-19 2021-02-14 Completed [facility] Vaccine Vaccine 09:03:00 [facility] Moderna COVID-19 Moderna COVID-19 2021-02-14 Completed [facility] Vaccine Vaccine 09:03:00 [facility] Moderna COVID-19 Moderna COVID-19 2021-02-14 Completed [facility] Vaccine Vaccine 09:03:00 [facility] Moderna COVID-19 Moderna COVID-19 2021-02-14 Completed [facility] Vaccine Vaccine 09:03:00 [facility] Moderna COVID-19 Moderna COVID-19 2021-02-14 Completed [facility] Vaccine Vaccine 09:03:00 [facility] Moderna COVID-19 Moderna COVID-19 2021-02-14 Completed [facility] Vaccine Vaccine 09:03:00 [facility] Moderna COVID-19 Moderna COVID-19 2021-02-14 Completed [facility] Vaccine Vaccine 09:03:00 [facility] Moderna COVID-19 Moderna COVID-19 2021-02-14 Completed [facility] Vaccine Vaccine 09:03:00 [facility] Moderna COVID-19 Moderna COVID-19 2021-02-14 Completed [facility] Vaccine Vaccine 09:03:00 [facility] SARS-COV-2 COVID-19 2021-02-10 Completed [facility] VACCINE 00:00:00 [facility] SARS-COV-2 COVID-19 2021-02-10 Completed [facility] VACCINE 00:00:00 [facility] SARS-COV-2 COVID-19 2021-02-10 Completed [facility] VACCINE 00:00:00 [facility] ical Branch SARS-COV-2 COVID-19 2021-02-10 Completed [facility] VACCINE 00:00:00 [facility] ical Branch SARS-COV-2 COVID-19 2021-02-10 Completed [facility] of [facility] 12+ YRS 00:00:00 [facility] ical VACCINE Branch SARS-COV-2 COVID-19 2021-02-10 Completed [facility] of [facility] 12+ YRS 00:00:00 [facility] ical VACCINE Branch SARS-COV-2 COVID-19 2021-02-10 Completed [facility] of [facility] 12+ YRS 00:00:00 [facility] ical VACCINE Branch SARS-COV-2 COVID-19 2021-02-10 Completed [facility] VACCINE 00:00:00 [facility] ical Branch SARS-COV-2 COVID-19 2021-02-10 Completed Unive rs[facility] of [facility] 12+ YRS 00:00:00 [facility] ical VACCINE Branch SARS-COV-2 COVID-19 2021-02-10 Completed [facility] of [facility] 12+ YRS 00:00:00 [facility] ical VACCINE Branch SARS-COV-2 COVID-19 2021-02-10 Completed [facility]ive [facility] of [facility] 12+ YRS 00:00:00 [facility] ical VACCINE Branch SARS-COV-2 COVID-19 2021-02-10 Completed [facility] VACCINE 00:00:00 [facility] ical Branch SARS-COV-2 COVID-19 2021-02-10 Completed [facility] VACCINE 00:00:00 [facility] ical Branch Moderna COVID-19 Moderna COVID-19 2021-01-13 Completed [facility] Vaccine Vaccine 16:57:00 [facility] Moderna COVID-19 Moderna COVID-19 2021-01-13 Completed [facility] - Vaccine Vaccine 16:57:00 [facility] Moderna COVID-19 Moderna COVID-19 2021-01-13 Completed [facility] Vaccine Vaccine 16:57:00 [facility] Moderna COVID-19 Moderna COVID-19 2021-01-13 Completed [facility] Vaccine Vaccine 16:57:00 [facility] Moderna COVID-19 Moderna COVID-19 2021-01-13 Completed [facility] Vaccine Vaccine 16:57:00 [facility] Moderna COVID-19 Moderna COVID-19 2021-01-13 Completed [facility] - Vaccine Vaccine 16:57:00 [facility] Moderna COVID-19 Moderna COVID-19 2021-01-13 Completed [facility] - Vaccine Vaccine 16:57:00 [facility] Moderna COVID-19 Moderna COVID-19 2021-01-13 Completed [facility] Vaccine Vaccine 16:57:00 [facility] Moderna COVID-19 Moderna COVID-19 2021-01-13 Completed [facility] - Vaccine Vaccine 16:57:00 [facility] Moderna COVID-19 Moderna COVID-19 2021-01-13 Completed [facility] Vaccine Vaccine 16:57:00 [facility] Moderna COVID-19 Moderna COVID-19 2021-01-13 Completed [facility] Vaccine Vaccine 16:57:00 [facility] Moderna COVID-19 Moderna COVID-19 2021-01-13 Completed [facility] - Vaccine Vaccine 16:57:00 [facility] Moderna COVID-19 Moderna COVID-19 2021-01-13 Completed [facility] - Vaccine Vaccine 16:57:00 [facility] Moderna COVID-19 Moderna COVID-19 2021-01-13 Completed [facility] Vaccine Vaccine 16:57:00 [facility] Moderna COVID-19 Moderna COVID-19 2021-01-13 Completed [facility] - Vaccine Vaccine 16:57:00 [facility] Moderna COVID-19 Moderna COVID-19 2021-01-13 Completed [facility] - Vaccine Vaccine 16:57:00 [facility] Moderna COVID-19 Moderna COVID-19 2021-01-13 Completed [facility] - Vaccine Vaccine 16:57:00 [facility] Moderna COVID-19 Moderna COVID-19 2021-01-13 Completed [facility] - Vaccine Vaccine 16:57:00 [facility] Moderna COVID-19 Moderna COVID-19 2021-01-13 Completed [facility] - Vaccine Vaccine 16:57:00 [facility] Moderna COVID-19 Moderna COVID-19 2021-01-13 Completed [facility] - Vaccine Vaccine 16:57:00 [facility] Moderna COVID-19 Moderna COVID-19 2021-01-13 Completed [facility] - Vaccine Vaccine 16:57:00 [facility] Moderna COVID-19 Moderna COVID-19 2021-01-13 Completed [facility] - Vaccine Vaccine 16:57:00 [facility] Moderna COVID-19 Moderna COVID-19 2021-01-13 Completed [facility] - Vaccine Vaccine 16:57:00 [facility] Moderna COVID-19 Moderna COVID-19 2021-01-13 Completed [facility] Vaccine Vaccine 16:57:00 [facility] Moderna COVID-19 Moderna COVID-19 2021-01-13 Completed [facility] Vaccine Vaccine 16:57:00 [facility] SARS-COV-2 COVID-19 2021-01-13 Completed [facility] VACCINE 00:00:00 [facility] SARS[facility]COV[facility]2 COVID-19 2021-01-13 Completed [facility] VACCINE 00:00:00 [facility] ical Branch SARS-COV-2 COVID-19 2021-01-13 Completed [facility] VACCINE 00:00:00 [facility] SARS-COV-2 COVID-19 2021-01-13 Completed [facility] VACCINE 00:00:00 [facility] SARS-COV-2 COVID-19 2021-01-13 Completed [facility] of [facility] 12+ YRS 00:00:00 [facility] SARS-COV-2 COVID-19 2021-01-13 Completed [facility] of [facility] 12+ YRS 00:00:00 [facility] ical VACCINE Branch SARS-COV-2 COVID-19 2021-01-13 Completed [facility] of [facility] 12+ YRS 00:00:00 [facility] ical VACCINE Branch SARS-COV-2 COVID-19 2021-01-13 Completed [facility] VACCINE 00:00:00 [facility] ical Branch SARS-COV-2 COVID-19 2021-01-13 Completed [facility] of [facility] 12+ YRS 00:00:00 [facility] ical VACCINE Branch SARS-COV-2 COVID-19 2021-01-13 Completed [facility] of [facility] 12+ YRS 00:00:00 [facility] ical VACCINE Branch SARS-COV-2 COVID-19 2021-01-13 Completed [facility] of [facility] 12+ YRS 00:00:00 [facility] ical VACCINE Branch SARS-COV-2 COVID-19 2021-01-13 Completed [facility] VACCINE 00:00:00 [facility] ical Branch SARS-COV-2 COVID-19 2021-01-13 Completed [facility] VACCINE 00:00:00 [facility] Moderna COVID-19 Moderna COVID-19 Unknown Completed [facility] - Vaccine, Bivalent Vaccine, Bivalent [facility] Moderna COVID-19 Moderna COVID-19 Unknown Completed [facility] - Vaccine Vaccine [facility] Moderna COVID-19 Moderna COVID-19 Unknown Completed [facility] - Vaccine Vaccine [facility] Moderna COVID-19 Moderna COVID-19 Unknown Completed [facility] - Vaccine, Bivalent Vaccine, Bivalent [facility] Moderna COVID-19 Moderna COVID-19 Unknown Completed [facility] - Vaccine Vaccine [facility] Moderna COVID-19 Moderna COVID-19 Unknown Completed [facility] - Vaccine Vaccine [facility] Moderna COVID-19 Moderna COVID-19 Unknown Completed [facility] - Vaccine, Bivalent Vaccine, Bivalent [facility] Moderna COVID-19 Moderna COVID-19 Unknown Completed [facility] - Vaccine Vaccine [facility] Moderna COVID-19 Moderna COVID-19 Unknown Completed [facility] - Vaccine Vaccine [facility] Vital Signs Vital Name Observation Time Observation Value Comments Source height 2022-09-22 11:10:00 61.5 [in_i] [facility] weight 2022-09-22 11:10:00 143 [lb_av] [facility] temperature 2022-09-22 11:10:00 98 [degF] [facility] bmi 2022-09-22 11:10:00 26.58 kg/m2 [facility] blood pressure 2022-09-22 11:10:00 128 mm[Hg] [facility] - systolic [facility] blood pressure 2022-09-22 11:10:00 76 mm[Hg] [facility] - diastolic [facility] height 2022-09-06 14:30:00 61.5 [in_i] [facility] weight 2022-09-06 14:30:00 145 [lb_av] [facility] temperature 2022-09-06 14:30:00 97.4 [degF] [facility] bmi 2022-09-06 14:30:00 26.95 kg/m2 [facility] blood pressure 2022-09-06 14:30:00 125 mm[Hg] [facility] - systolic [facility] blood pressure 2022-09-06 14:30:00 84 mm[Hg] [facility] - diastolic [facility] height 2022-07-29 14:30:00 61.5 [in_i] [facility] weight 2022-07-29 14:30:00 145 [lb_av] [facility] temperature 2022-07-29 14:30:00 97.0 [degF] [facility] bmi 2022-07-29 14:30:00 26.95 kg/m2 [facility] blood pressure 2022-07-29 14:30:00 128 mm[Hg] [facility] - systolic [facility] blood pressure 2022-07-29 14:30:00 82 mm[Hg] [facility] - diastolic [facility] Systolic blood 2022-07-26 20:00:00 161 mm[Hg] [facility] Diastolic blood 2022-07-26 20:00:00 94 mm[Hg] [facility] Heart rate 2022-07-26 20:00:00 78 /min [facility] Oxygen saturation in 2022-07-26 20:00:00 100 /min [facility] Arterial blood by [facility] Pulse oximetry Branch Respiratory rate 2022-07-26 19:40:00 16 /min [facility] Body temperature 2022-07-26 16:42:00 36.89 Sarah [facility] Body height 2022-07-26 16:42:00 157.5 cm [facility] Body weight 2022-07-26 16:42:00 72.576 kg [facility] BMI 2022-07-26 16:42:00 29.26 kg/m2 [facility] height 2022-07-09 09:30:00 61.5 [in_i] Common [facility] weight 2022-07-09 09:30:00 145 [lb_av] Common [facility] temperature 2022-07-09 09:30:00 97.1 [degF] [facility] bmi 2022-07-09 09:30:00 26.95 kg/m2 [facility] blood pressure 2022-07-09 09:30:00 100 mm[Hg] [facility] - systolic [facility] blood pressure 2022-07-09 09:30:00 68 mm[Hg] [facility] - diastolic [facility] height 2022-06-30 15:00:00 61.5 [in_i] Common [facility] weight 2022-06-30 15:00:00 142 [lb_av] [facility] temperature 2022-06-30 15:00:00 97.9 [degF] [facility] bmi 2022-06-30 15:00:00 26.39 kg/m2 [facility] oximetry 2022-06-30 15:00:00 98 % [facility] respiratory rate 2022-06-30 15:00:00 16 /min [facility] blood pressure 2022-06-30 15:00:00 145 mm[Hg] [facility] - systolic [facility] blood pressure 2022-06-30 15:00:00 70 mm[Hg] Common [facility] diastolic [facility] Respiratory rate 2022-06-21 12:47:00 16 /min [facility] Oxygen saturation in 2022-06-21 12:47:00 94 /min [facility] Arterial blood by [facility] Pulse oximetry Branch Systolic blood 2022-06-21 12:43:00 102 mm[Hg] [facility] Diastolic blood 2022-06-21 12:43:00 59 mm[Hg] [facility] Heart rate 2022-06-21 12:43:00 70 /min [facility] Body temperature 2022-06-21 12:43:[address] weight 2022-06-21 08:14:00 72.666 kg [facility] BMI 2022-06-21 08:14:00 29.30 kg/m2 [facility] Body height 2022-06-17 03:46:00 157.5 cm [facility] height 2022-06-09 13:00:00 61.5 [in_i] [facility] weight 2022-06-09 13:00:00 148 [lb_av] [facility] temperature 2022-06-09 13:00:00 98.7 [degF] [facility] bmi 2022-06-09 13:00:00 27.51 kg/m2 [facility] oximetry 2022-06-09 13:00:00 96 % Common [facility] respiratory rate 2022-06-09 13:00:00 16 /min [facility] blood pressure 2022-06-09 13:00:00 138 mm[Hg] Common [facility] - systolic [facility] blood pressure 2022-06-09 13:00:00 80 mm[Hg] Common [facility] - diastolic [facility] height 2022-06-09 13:00:00 62 [in_i] Common [facility] weight 2022-06-09 13:00:00 148 [lb_av] [facility] temperature 2022-06-09 13:00:00 98.7 [degF] Common [facility] bmi 2022-06-09 13:00:00 27.07 kg/m2 [facility] oximetry 2022-06-09 13:00:00 96 % [facility] respiratory rate 2022-06-09 13:00:00 16 /min [facility] blood pressure 2022-06-09 13:00:00 138 mm[Hg] Common [facility] - systolic [facility] blood pressure 2022-06-09 13:00:00 80 mm[Hg] Common [facility] - diastolic [facility] WEIGHT 2022-04-14 13:36:00 65.454 kg height 2022-02-09 13:10:00 62 [in_i] [facility] weight 2022-02-09 13:10:00 148.8 [lb_av] [facility] temperature 2022-02-09 13:10:00 96.6 [degF] [facility] bmi 2022-02-09 13:10:00 27.21 kg/m2 [facility] oximetry 2022-02-09 13:10:00 100 % [facility] respiratory rate 2022-02-09 13:10:00 18 /min [facility] blood pressure 2022-02-09 13:10:00 131 mm[Hg] Common [facility] - systolic [facility] blood pressure 2022-02-09 13:10:00 69 mm[Hg] [facility] - diastolic [facility] HEIGHT 2022-01-04 10:22:00 157.5 cm WEIGHT 2022-01-04 10:22:00 67.087 kg height 2021-10-12 14:10:00 62 [in_i] [facility] weight 2021-10-12 14:10:00 155 [lb_av] [facility] temperature 2021-10-12 14:10:00 98 [degF] [facility] bmi 2021-10-12 14:10:00 28.35 kg/m2 [facility] blood pressure 2021-10-12 14:10:00 121 mm[Hg] Common [facility] - systolic [facility] blood pressure 2021-10-12 14:10:00 76 mm[Hg] Common [facility] - diastolic [facility] Heart rate 2021-09-22 18:07:00 78 /min [facility] Systolic blood 2021-09-22 18:06:00 117 mm[Hg] [facility] of pressure [facility] Diastolic blood 2021-09-22 18:06:00 65 mm[Hg] [facility]ive [facility] of pressure [facility] Oxygen saturation in 2021-09-22 18:06:00 100 /min [facility] Arterial blood by [facility] Pulse oximetry Branch Respiratory rate 2021-09-22 18:05:00 21 /min [facility] Body temperature 2021-09-22 17:42:[address] [facility] Body height 2021-09-14 14:52:00 157.5 cm [facility] Body weight 2021-09-14 14:52:00 70.3 kg [facility] BMI 2021-09-14 14:52:00 28.34 kg/m2 [facility] Heart rate 2021-09-22 18:01:00 62 /min [facility] Respiratory rate 2021-09-22 18:01:00 30 /min [facility] Oxygen saturation in 2021-09-22 18:01:00 100 /min [facility] Arterial blood by [facility] carlos Pulse oximetry Branch Systolic blood 2021-09-22 17:56:00 105 mm[Hg] [facility] Diastolic blood 2021-09-22 17:56:00 62 mm[Hg] [facility] Body temperature 2021-09-22 17:42:00 36.5 Sarah [facility] Body height 2021-09-14 14:52:00 157.5 cm [facility] Body weight 2021-09-14 14:52:00 70.3 kg [facility] BMI 2021-09-14 14:52:00 28.34 kg/m2 [facility] Heart rate 2021-08-20 18:49:00 62 /min [facility] Oxygen saturation in 2021-08-20 18:49:00 100 /min [facility] Arterial blood by [facility] Pulse oximetry Branch Respiratory rate 2021-08-20 18:47:00 19 /min [facility] Systolic blood 2021-08-20 18:45:00 127 mm[Hg] [facility] Diastolic blood 2021-08-20 18:45:00 74 mm[Hg] [facility] Body temperature 2021-08-20 18:33:00 36.39 Sarah [facility] Body height 2021-08-20 17:49:00 157.5 cm [facility] Body weight 2021-08-20 17:49:00 70.308 kg [facility] BMI 2021-08-20 17:49:00 28.35 kg/m2 [facility] Heart rate 2021-08-20 18:49:00 62 /min [facility] Oxygen saturation in 2021-08-20 18:49:00 100 /min [facility] Arterial blood by [facility] Pulse oximetry Branch Respiratory rate 2021-08-20 18:47:00 19 /min [facility] Systolic blood 2021-08-20 18:45:00 127 mm[Hg] Univer [facility]ity of pressure [facility] Diastolic blood 2021-08-20 18:45:00 74 mm[Hg] [facility] Body temperature 2021-08-20 18:33:00 36.39 Sarah [facility] Body height 2021-08-20 17:49:00 157.5 cm [facility] Body weight 2021-08-20 17:49:00 70.308 kg [facility] BMI 2021-08-20 17:49:00 28.35 kg/m2 [facility] Systolic blood 2022-04-14 13:36:00 118 mm[Hg] [facility] Diastolic blood 2022-04-14 13:36:00 77 mm[Hg] [facility] Heart rate 2022-04-14 13:36:00 69 /min [facility] Body temperature 2022-04-14 13:36:00 36.67 Sarah [facility] Body weight 2022-04-14 13:36:00 65.454 kg [facility] BMI 2022-04-14 13:36:00 26.39 kg/m2 [facility] Procedures Procedure Date / Time Performing Source Performed Clinician MR LUMBAR SPINE WO CONTRAST 2022-09-23 Shan Santana Uni versity of 21:10:02 S [facility] ASSIGNMENT OF BENEFITS 2022-09-23 Doctor Universit y of 20:12:40 Unassigned, No [facility] COMP. METABOLIC PANEL (55048) 2022-07-26 Nilay Lennon iversity of 18:57:00 [facility] CBC WITH DIFF 2022-07-26 Nilay Lennon [place] of 18:57:00 [facility] URINALYSIS 2022-07-26 Nilay Lennon [place] of 18:57:00 [facility] CT ABDOMEN PELVIS WO CONTRAST 2022-07-26 Nilay Lennon Ion iversity of 18:03:32 [facility] CONSENT/REFUSAL FOR DIAGNOSIS AND 2022-07-26 [facility] 16:32:59 Unassigned, No [facility] HEPATIC FUNCTION PANEL (05042) 2022-06-21 Tika Cummings niversity of (ALB,T.PRO,BILI 11:05:00 [facility] T,BU/BC,ALT,AST,ALK PHOS) [place] BASIC METABOLIC PANEL (NA, K, CL, 2022-06-21 Emiliano, [facility] University of CO2, GLUCOSE, BUN, CREATININE, CA) 11:05:00 [facility] URINALYSIS 2022-06-20 Emiliano [facility] of 22:41:00 [facility] BASIC METABOLIC PANEL (NA, K, CL, 2022-06-20 [place], [facility] University of CO2, GLUCOSE, BUN, CREATININE, CA) 08:54:00 [facility] CBC WITH DIFF 2022-06-20 Emiliano [facility] of 08:54:00 [facility] HEPATIC FUNCTION PANEL (10271) 2022-06-19 Tika Cummings U niversity of (ALB,T.PRO,BILI 09:22:00 [facility] T,BU/BC,ALT,AST,ALK PHOS) [place] BASIC METABOLIC PANEL (NA, K, CL, 2022-06-19 Emiliano, [facility] University of CO2, GLUCOSE, BUN, CREATININE, CA) 09:22:00 [facility] CBC WITH DIFF 2022-06-19 Tika Cummings [place] of 09:22:00 [facility] BLOOD CULTURE SCREEN 2022-06-19 Jesus Mora [place] of 03:22:00 [facility] BLOOD CULTURE SCREEN 2022-06-19 Jesus Mora [place] of 03:16:00 [facility] XR CHEST 1 VW 2022-06-19 Jesus Mora [place] of 01:50:09 [facility] HEPATIC FUNCTION PANEL ([id number]) 2022-06-18 Tika Cummings niversity of (ALB,T.PRO,BILI 10:14:00 [facility] T,BU/BC,ALT,AST,ALK PHOS) Branch PHOSPHORUS 2022-06-17 [place], [facility] of 09:00:00 [facility] MAGNESIUM 2022-06-17 [place], [facility] of 09:00:00 [facility] TROPONIN I 2022-06-17 [place], [facility] of 09:00:00 [facility] THYROID STIMULATING HORMONE 2022-06-17 Wade, [facility] ersity of 09:00:00 [facility] COMP. METABOLIC PANEL (61857) 2022-06-17 Herbie Olvera iversity of 09:00:00 [facility] LIPID PANEL (70537)(TOTAL 2022-06-17 [facility] CHOLESTEROL, TRIGLYCERIDES, HDL) 09:00:00 [facility] CBC WITH DIFF 2022-06-17 Wade [facility] of 09:00:00 [facility] PROTHROMBIN TIME / INR 2022-06-17 [place], [facility] 09:00:00 [facility] HEPATITIS B SURFACE ANTIBODY 2022-06-17 Jesus Mora [facility] versity of 09:00:00 [facility] HEPATITIS B SURFACE ANTIGEN 2022-06-17 Jesus Mora [facility] ersity of 09:00:00 [facility] HCV ANTIBODY 2022-06-17 Jesus Mora [place] of 09:00:00 [facility] HBC ANTIBODY (IGM & IGG) 2022-06-17 Jesus Mora [facility] ity of 09:00:00 [facility] LAMOTRIGINE, LEVEL 2022-06-17 Wade [facility] of 09:00:00 [facility] N-TERMINAL PRO-BNP 2022-06-17 Wade [facility] of 09:00:00 [facility] PROCALCITONIN 2022-06-17 Wade [facility] of 09:00:00 [facility] CT ABDOMEN PELVIS W CONTRAST 2022-06-17 Hill Sawyer Uni versity of 00:50:10 [facility] CBC WITH DIFF 2022-06-17 Hill Sawyer University of 00:24:00 [facility] GLYCOSYLATED HEMOGLOBIN (A1C) 2022-06-17 Herbie Olvera Un iversity of 00:24:00 [facility] HB ECG ROUTINE & RHYTHM STRIP 2022-06-17 Hill Swayer Un iversity of 00:06:46 [facility] BLOOD CULTURE SCREEN 2022-06-17 Hill Sawyer [place] of 00:00:00 [facility] LIPASE 2022-06-17 Hill Sawyer [place] of 00:00:00 [facility] MAGNESIUM 2022-06-17 Hill Sawyer [place] of 00:00:00 [facility] TROPONIN I 2022-06-17 Hill Sawyer [place] of 00:00:00 [facility] COMP. METABOLIC PANEL ([id number]) 2022-06-17 Hill Sawyer iversity of 00:00:00 [facility] URINALYSIS 2022-06-17 Hill Sawyer [place] of 00:00:00 [facility] COVID-19 (ID NOW RAPID TESTING) 2022-06-17 Hill Sawyer [place] of 00:00:00 [facility] LAB ONLY COVID INTERPRETATION 2022-06-17 Hill Sawyer iversity of 00:00:00 [facility] NOTICE OF PRIVACY PRACTICES 2022-06-16 Doctor [facility] ersity of 22:38:45 Unassigned, No [facility] CONSENT/REFUSAL FOR DIAGNOSIS AND 2022-06-16 [facility] 22:35:24 Unassigned, No [facility] HB CREATININE BLOOD 2021-10-16 Carlton Echeverria [place] f 21:37:00 [facility] NOTICE OF BILLING PRACTICES FOR 2021-10-16 [place] MEDICARE PATIENTS 21:05:05 Unassigned, No [facility] PATIENT FINANCIAL POLICY 2021-10-16 Doctor Un iversity of 21:04:40 Unassigned, No [facility] NO SHOW OR MISSED APPOINTMENT 2021-10-16 Doctor Un iversity of POLICY ACKNOWLEDGEMENT 21:04:21 Unassigned, No [facility] Name Cart[place] CONSENT/REFUSAL FOR DIAGNOSIS AND 2021-10-16 Doctor [facility] TREATMENT 21:03:59 Unassigned, No [facility] ASSIGNMENT OF BENEFITS 2021-10-16 Doctor Universit y of 21:03:40 Unassigned, No [facility] COLONOSCOPY 2021-09-22 Carlton Echeverria [place] of 16:38:00 [facility] ESOPHAGOGASTRODUODENOSCOPY 2021-09-22 Carlton Echeverria [facility] of 16:38:00 [facility] COLONOSCOPY (ENDO) 2021-09-22 [facility] 16:33:27 [facility] COLONOSCOPY (ENDO) 2021-09-22 [facility] 16:33:27 [facility] EGD (ENDO) 2021-09-22 [facility] 16:23:06 [facility] EGD (ENDO) 2021-09-22 [facility] 16:23:06 [facility] DAY SURGERY - ADC 2021-09-22 [place] of 06:01:00 Unassigned, No [facility] EXTERNAL PROVIDER RECORDS 2021-09-16 Doctor [facility] sity of 06:01:00 Unassigned, No [facility] EXTERNAL PROVIDER RECORDS 2021-09-16 Doctor [facility] sity of 06:01:00 Unassigned, No [facility] EXTERNAL PROVIDER RECORDS 2021-09-14 Doctor [facility] sity of 06:01:00 Unassigned, No [facility] EXTERNAL PROVIDER RECORDS 2021-09-14 Doctor Univer sity of 06:01:00 Unassigned, No [facility] COLONOSCOPY (ENDO) 2021-08-20 Carlton Echeverria [facility] 18:15:37 [facility] COLONOSCOPY 2021-08-20 Carlton Echeverria [place] [facility] 18:01:00 [facility] PATIENT QUESTIONNAIRE 2021-08-20 [place] of 06:01:00 Unassigned, No [facility] EXTERNAL PROVIDER RECORDS 2021-08-03 Doctor [facility] sity of 05:01:00 Unassigned, No [facility] EXTERNAL PROVIDER RECORDS 2021-08-03 Doctor Univer sity of 05:01:00 Unassigned, No [facility] Plan of Care Planned Activity Planned Date Details Comments Source Future Scheduled 2031-09-22 Screening for malignant [facility] 00:00:00 neoplasm of colon Medical Ce nter (procedure) [code = 626902386] Future Scheduled 2031-09-22 Screening for malignant [facility] 00:00:00 neoplasm of colon Medical Ce [facility]ter (procedure) [code = 550875500] Future Scheduled 2031-09-22 Screening for malignant [facility] 00:00:00 neoplasm of colon Medical Ce [facility]ter (procedure) [code = 427940039] Future Scheduled 2031-09-22 Screening for malignant [facility] 00:00:00 neoplasm of colon Medical Ce [facility]ter (procedure) [code = 416174988] Future Scheduled 2031-09-22 Screening for malignant [facility] 00:00:00 neoplasm of colon Medical Ce nter (procedure) [code = 452388125] Future Scheduled 2031-09-22 Screening for malignant [facility] 00:00:00 neoplasm of colon Medical Ce nter (procedure) [code = 057761935] Future Scheduled 2031-09-22 Screening for malignant [facility] 00:00:00 neoplasm of colon Medical Ce nter (procedure) [code = 347192941] Future Scheduled 2031-09-22 Screening for malignant [facility] 00:00:00 neoplasm of colon Medical Ce nter (procedure) [code = 965948887] Future Scheduled 2031-09-22 Screening for malignant [facility] 00:00:00 neoplasm of colon Medical Ce nter (procedure) [code = 700714471] Future Scheduled 2031-09-22 Screening for malignant [facility] 00:00:00 neoplasm of colon Medical Ce nter (procedure) [code = 855728994] Future Scheduled 2031-09-22 Screening for malignant [facility] 00:00:00 neoplasm of colon Medical Ce nter (procedure) [code = 378632200] Future Scheduled 2031-09-22 Screening for malignant [facility] 00:00:00 neoplasm of colon Medical Ce nter (procedure) [code = 059832103] Future Scheduled 2031-09-22 Screening for malignant [facility] 00:00:00 neoplasm of colon Medical Ce nter (procedure) [code = 669954852] Future Scheduled 2031-09-22 Screening for malignant [facility] 00:00:00 neoplasm of colon Medical Ce nter (procedure) [code = 381691627] Future Scheduled 2023-06-03 Influenza Vaccine (#1) C [...] 00:00:00 (YEAR 2 or FIRST YEAR if [facility] no IPPE) [code = MEDICARE ANNUAL WELLNESS [...] [facility] 00:00:00 [code = 08700573] Medical Ce nter Future Scheduled 2008-12-26 Lipid panel (procedure) [facility] 00:00:00 [code = 86140614] Medical Ce nter Future Scheduled 2008-12-26 Lipid panel (procedure) [facility] 00:00:00 [code = 76776891] Medical Ce nter Future Scheduled 2008-12-26 Lipid panel (procedure) [facility] 00:00:00 [code = 77198621] Medical Ce nter Future Scheduled 2008-12-26 Lipid panel (procedure) [facility] 00:00:00 [code = 40713948] Medical Ce nter Future Scheduled 2008-12-26 Lipid panel (procedure) [facility] 00:00:00 [code = 72790842] Medical Ce nter Future Scheduled 2008-12-26 Lipid panel (procedure) [facility] 00:00:00 [code = 52669692] Medical Ce nter Future Scheduled 1984-12-26 Screening for malignant [facility] 00:00:00 neoplasm of cervix Medical C enter (procedure) [code = 670345535] Future Scheduled 1984-12-26 Screening for malignant [facility] 00:00:00 neoplasm of cervix Medical C enter (procedure) [code = 185615411] Future Scheduled 1984-12-26 Screening for malignant [facility] 00:00:00 neoplasm of cervix Medical C enter (procedure) [code = 901869549] Future Scheduled 1984-12-26 Screening for malignant [facility] 00:00:00 neoplasm of cervix Medical C enter (procedure) [code = 706631406] Future Scheduled 1984-12-26 Screening for malignant [facility] 00:00:00 neoplasm of cervix Medical C enter (procedure) [code = 911906989] Future Scheduled 1984-12-26 Screening for malignant [facility] 00:00:00 neoplasm of cervix Medical C enter (procedure) [code = 860689066] Future Scheduled 1984-12-26 Screening for malignant [facility] 00:00:00 neoplasm of cervix Medical C enter (procedure) [code = 596624590] Future Scheduled 1982-12-26 DTAP/TDAP/TD VACCINES (1 [facility] [...] screening [facility] Cent er (procedure) [code = 971217840] Future Scheduled 1978-12-[address] [facility]00 virus screening [facility] (procedure) [code = 629710040] Future Scheduled 1978-12-[address] Human immunodeficiency [facility] 00:[facility]:00 virus screening [facility] (procedure) [code = 535655164] Future Scheduled 1978-12-26 Human immunodeficiency [facility] 00:[facility]:00 virus screening [facility] Cent [facility] (procedure) [code = 064878496] Future Scheduled 1963 Screening for malignant [facility] 00:00:00 neoplasm of breast Medical C enter (procedure) [code = 334240872] Future Scheduled 1963 CT Colonography (combo) [facility] 00:00:00 [code = CT [facility] ([facility])] Future Scheduled 1963 Screening for malignant [facility] 00:00:00 neoplasm of colon Medical Ce nter (procedure) [code = 513968841] Future Scheduled 1963 Screening for malignant [facility] 00:00:00 neoplasm of colon Medical Ce [facility]ter (procedure) [code = 024180919] Future Scheduled 1963 Sigmoidoscopy [code = [facility]] Medical Cent[facility] r Future Scheduled 1963 Screening for malignant [facility] 00:00:00 neoplasm of breast Medical C enter (procedure) [code = 268924021] Future Scheduled 1963 CT Colonography (combo) [facility] 00:00:00 [code = CT Colon[facility] (combo)] Future Scheduled 1963 Screening for malignant [facility] 00:00:00 neoplasm of colon Medical Ce nter (procedure) [code = 897521900] Future Scheduled 1963 Screening for malignant [facility] 00:00:00 neoplasm of colon Medical Ce [facility]ter (procedure) [code = 845062020] Future Scheduled 1963 Sigmoidoscopy [facility]code [facility]oscopy] Medical Cent[facility] r Future Scheduled 1963 Screening for malignant [facility] 00:00:00 neoplasm of breast Medical C enter (procedure) [code = 021545342] Future Scheduled 1963 CT Colonography (combo) [facility] 00:00:00 [code = CT Colonography [facility] (combo)] Future Scheduled 1963 Screening for malignant [facility] 00:00:00 neoplasm of colon Medical Ce nter (procedure) [code = 790488280] Future Scheduled 1963 Screening for malignant [facility] 00:00:00 neoplasm of colon Medical Ce nter (procedure) [code = 727974460] Future Scheduled 1963 Sigmoidoscopy [facility]code = [facility] S[facility]oscopy] Medical Cente r Future Scheduled 1963 Screening for malignant [facility] 00:00:00 neoplasm of breast Medical C enter (procedure) [code = 518193426] Future Scheduled 1963 CT Colonography (combo) [facility] 00:00:00 [code = CT Colonography [facility] (combo)] Future Scheduled 1963 Screening for malignant [facility] 00:00:00 neoplasm of colon Medical Ce nter (procedure) [code = 172114590] Future Scheduled 1963 Screening for malignant [facility] 00:00:00 neoplasm of colon Medical Ce nter (procedure) [code = 602841842] Future Scheduled 1963 Sigmoidoscopy [facility]code = [facility]oscopy] Medical Cente r Future Scheduled 1963 Screening for malignant [facility] 00:00:00 neoplasm of breast Medical C enter (procedure) [code = 356315896] Future Scheduled 1963 CT Colonography (combo) [facility] 00:00:00 [code = CT Colonography [facility] (combo)] Future Scheduled 1963 Screening for malignant [facility] 00:00:00 neoplasm of colon Medical Ce nter (procedure) [code = 963362675] Future Scheduled 1963 Screening for malignant [facility] 00:00:00 neoplasm of colon Medical Ce nter (procedure) [code = 329293514] Future Scheduled 1963 Sigmoidoscopy [facility]code = [facility] S[facility]oscopy] Medical Cente r Future Scheduled 1963 Screening for malignant [facility] 00:00:00 neoplasm of breast Medical C enter (procedure) [code = 654073290] Future Scheduled 1963 CT Colonography (combo) [facility] 00:00:00 [code = CT Colonography [facility] (combo)] Future Scheduled 1963 Screening for malignant [facility] 00:00:00 neoplasm of colon Medical Ce nter (procedure) [code = 625594402] Future Scheduled 1963 Screening for malignant [facility] 00:00:00 neoplasm of colon Medical Ce nter (procedure) [code = 953427462] Future Scheduled 1963 Sigmoidoscopy [facility]code = [facility] S[facility]oscopy] Medical Cente r Future Scheduled 1963 Screening for malignant [facility] 00:00:00 neoplasm of breast Medical C enter (procedure) [code = 405435785] Future Scheduled 1963 CT Colonography (combo) [facility] 00:00:00 [code = CT Colonography [facility] (combo)] Future Scheduled 1963 Screening for malignant [facility] 00:00:00 neoplasm of colon Medical Ce nter (procedure) [code = 753494259] Future Scheduled 1963 Screening for malignant [facility] 00:00:00 neoplasm of colon Medical Ce nter (procedure) [code = 480787594] Future Scheduled 1963 Sigmoidoscopy [facility]code [facility] S[facility]oscopy] Medical Cente r Encounters Start End Encounter Admission Attending Care Care Encounter Source Date/Time Date/Time Type Type Clinicians Facility Department ID 2023-06-22 Outpatient Platt, STLML[facility] [id number] Common 10:44:01 Davin 44273 [facility] 2023-06-21 Outpatient Platt, STLMLC [facility] [id number] Common 13:20:00 Davin 27372 [facility] 2023-05-17 Outpatient Platt, STLMLC [facility] [id number] Common 15:09:00 Davin 23179 [facility] 2023-04-20 Outpatient Platt, STLMLC [facility] [id number] Common 15:37:00 Davin 96295 [facility] 2023-03-18 Outpatient Platt, STLMLC [facility] [id number] Common 10:58:00 Davin 53168 [facility] 2023-01-18 Outpatient Platt, STLMLC [facility] [id number] Common 09:19:00 Davin 57947 [facility] 2023-01-03 Outpatient Platt, STLMLC [facility] [id number] Common 13:22:00 Davin 12077 [facility] 2022-09-20 Outpatient Platt, STLMLC [facility] [id number] Common 09:30:01 Davin 82835 [facility] 2022-07-09 Outpatient Platt, STLMLC [facility] [id number] Common 10:44:00 Davin [facility] 2022-07-06 Outpatient Platt, STLMLC [facility] [id number] Common 09:19:01 Davin [facility] 2022-07-05 Outpatient Platt, STLMLC ST[facility] [id number] Common 16:24:02 Davin [facility] 2022-07-01 Outpatient Platt, STLMLC [facility] [id number] Common 09:38:00 Davin 16728 [facility] 2022-06-29 Outpatient Platt, STLMLC [facility] [id number] Common 11:52:00 Davin 15423 [facility] 2021-10-28 Outpatient Platt, STLMLC ST[facility] [id number] Common 14:00:30 Davin 73095 [facility] 2021-10-28 Outpatient Platt, STLMLC [facility] [id number] Common 13:48:24 Davin 84544 [facility] 2021-10-28 Outpatient Platt, STLMLC [facility] [id number] Common 13:04:06 Davin 39668 [facility] 2021-10-28 Outpatient Platt, STLMLC [facility] [id number] Common 12:33:05 Davin 77079 [facility] 2021-10-28 Outpatient Platt, STLMLC [facility] [id number] Common 12:32:02 Davin 47197 [facility] 2021-10-28 Outpatient Platt, STLMLC [facility] [id number] Common 12:11:19 Davin 90506 [facility] 2021-10-28 Outpatient Platt, STLMLC ST[facility] [id number] Common 12:06:04 Davin 62302 [facility] 2021-10-28 Outpatient Platt, STLMLC [facility] [id number] Common 11:57:23 Davin 41714 [facility] 2021-10-28 Outpatient Platt, STLMLC [facility] [id number] Common 11:38:16 Davin 49243 [facility] 2021-10-28 Outpatient Platt, STLMLC [facility] [id number] Common 11:16:03 Davin 23955 [facility] 2021-10-28 Outpatient Platt, STLMLC [facility] [id number] Common 11:11:18 Davin 60743 [facility] 2021-10-28 Outpatient Platt, STLMLC [facility] [id number] Common 11:09:24 Davin 46861 [facility] 2021-10-28 Outpatient Platt, STLMLC [facility] [id number] Common 11:08:56 Davin 59802 [facility] 2021-10-28 Outpatient Platt, STLMLC [facility] [id number] Common 11:08:09 Davin 74152 [facility] 2023-08-15 2023-08-15 Outpatient GC_GCBZW_Ka PRIV PRIV [id number] [facility] 00:00:00 00:00:00 diyala_S [id number] Medic al 2023-07-28 2023-07-28 Outpatient GC_GCBZW_Ka PRIV PRIV [id number] [facility] 00:00:00 00:00:00 diyala_S [id number] Medic al 2023-07-04 2023-07-04 Outpatient GC_GCBZW_Ka PRIV PRIV [id number] [facility] 00:00:00 00:00:00 diyala_S [id number] Medic al 2023-07-04 2023-07-04 Outpatient GC_GCBZW_Ka PRIV PRIV [id number] [facility] 00:00:00 00:00:00 diyala_S [id number] Medic al 2023-07-02 2023-07-02 Outpatient GC_GCBZW_Ka PRIV PRIV [id number] [facility] 00:00:00 00:00:00 diyala_S [id number] Medic al 2023-05-19 2023-05-19 Outpatient GC_GCBZW_Ka PRIV PRIV [id number] [facility] 00:00:00 00:00:00 diyala_S [id number] Medic al 2023-05-12 2023-05-12 IHC Kathie 2.16.840. 2.16.840.1. CLAC [id number] [facility] 18:30:00 19:30:00 Physician Stanley [id number]. [id number]. HKS Medical Visit [id number] [id number] 2023-05-06 2023-05-06 Care Kathie 2.16.840. 2.16.840.1. CLAC [id number] [facility] 20:00:00 20:30:00 Coordinati Stanley [id number]. [id number]. 6U6 Medical on Non 4.6.93419 [id number] Billable [id number] 2023-05-03 2023-05-03 JALEEL Visit Kristopher 2.16.840. 2.16.840.1. CL [id number] [facility] 18:00:00 19:00:00 [place] [id number]. [id number]. CFY Medical 4.6.58906 [id number] 2023-04-21 2023-04-21 Outpatient GC_GCBZW_Ka PRIV PRIV [id number] [facility] 00:00:00 00:00:00 diyala_S [id number] Medic al 2023-04-18 2023-04-18 JALEEL Visit Marlisa 2.16.840. 2.16.840.1. CL [id number] [facility] 15:30:00 16:30:00 [place] [id number]. 903275.4.6. [facility] Medical 4.6.04655 [id number] 2023-01-03 2023-01-03 (TEL) [facility] [id number] Co mmon 00:00:00 00:00:00 [facility] 2022-12-28 2022-12-28 (TEL) [facility] [id number] Co mmon 00:00:00 00:00:00 [facility] 2022-11-16 2022-11-16 CAV Marla Abhinav 2.16.840. 2.16.840.1. C [id number] [facility] 21:30:00 22:30:00 [id number]. 028926.4.6. [facility] [id number] [id number] 2022-11-12 2022-11-12 (TEL) [facility] [id number] Co mmon 00:00:00 00:00:00 [facility] 2022-11-11 2022-11-11 Harmony Dunham [facility] [id number] [facility] [address] 00:00:00 00:00:00 [facility] 2022-11-10 2022-11-10 (TEL) [facility] [id number] Co mmon 00:00:00 00:00:00 [facility] 2022-11-09 2022-11-09 Outpatient Alex_R [facility] [id number] Devoted 00:00:00 00:00:00 [id number] [facility] 2022-11-09 2022-11-09 Outpatient Alex_R [facility] [id number] Devoted 00:00:00 00:00:00 [id number] [facility] l Group 2022-11-09 2022-11-09 Outpatient Alex_R DMG DM [id number] Devoted 00:00:00 00:00:00 [id number] Medica l Group 2022-11-09 2022-11-09 Outpatient Alex_R DMG DMG [id number] Devoted 00:00:00 00:00:00 [id number] Medica l Group 2022-10-29 2022-10-29 (TEL) STLMLC STLMLC [id number] Co mmon 00:00:00 00:00:00 [facility] 2022-10-25 2022-10-25 (TEL) STLMLC STLMLC [id number] Co mmon 00:00:00 00:00:00 [facility] 2022-09-23 2022-09-23 [facility] [id number] Univers 14:15:10 23:59:00 SHAN ity of [facility] 2022-09-23 2022-09-23 [facility] 1.2.840.114 [id number] Univers 14:15:10 23:59:00 Encounter Shan BURRELL 350.1.13.10 ity of [place] 4.2.7.2.686 [facility] [id number] [facility] [address] Branch 2022-09-23 2022-09-23 Orders Doctor GRISEL 1.2.840.114 [id number] Univers 00:00:00 00:00:00 Only Unassigned, LEONIDES 350.1.13.10 ity of [place] [facility] 4.2.7.2.686 Faustino [id number] [facility] 00[address] Branch 2022-09-22 2022-09-22 OFFICE STLC STLC [id number] Co mmon 00:00:00 00:00:00 VISIT Spirit ESTAB PT - CHI LEVEL 4 [facility] 2022-09-06 2022-09-06 Telephone Oscar, [facility] [id number] 00:00[facility]00 00:00:00 [facility] 2022-09-06 2022-09-06 OFFICE STLMLC STLC [id number] Co mmon 00:00:00 00:00:00 VISIT Spirit ESTAB PT - CHI LEVEL 4 [facility] 2022-08-11 2022-08-11 [facility]patient [facility] [id number] [facility] 00:00:00 00:00:[address] [facility] 2022-07-30 2022-07-30 Outpatient DMG DMG [id number] Devoted 00:00:00 00:00:00 [id number] Medica l Group 2022-07-29 2022-07-29 Outpatient DMG DMG [id number] Devoted 00:00:00 00:00:00 [id number] Medica l Group 2022-07-29 2022-07-29 OFFICE STLMLC STLMLC [id number] Co mmon 00:00:00 00:00:00 VISIT Spirit ESTAB PT - CHI LEVEL 4 [facility] 2022-07-26 2022-07-26 Emergency X [facility] ERT [id number] Univers 11:44:00 15:33:[address] [facility] 2022-07-26 2022-07-26 [facility] [id number] Univers 11:44:00 15:33:00 Nilay BURRELL 350.1.13.10 ty [facility] 4.2.7.2.686 [facility] [phone] [facility] 0[address] 2022-07-26 2022-07-26 (TEL) STLMLC STLMLC [id number] Co mmon 00:00:00 00:00:00 Spirit - [facility] 2022-07-14 2022-07-14 (TEL) STLMLC STLMLC [id number] Co mmon 00:00:00 00:00:00 Spirit - [facility] 2022-07-09 2022-07-09 OFFICE STLMLC STLMLC [id number] Co mmon 00:00:00 00:00:00 VISIT Spirit ESTAB PT - CHI LEVEL 4 [facility] 2022-07-06 2022-07-06 (TEL) STLMLC STLMLC [id number] Co mmon 00:00:00 00:00:00 Spirit - [facility] 2022-07-05 2022-07-05 (TEL) STLMLC STLMLC [id number] Co mmon 00:00:00 00:00:00 Spirit - [facility] 2022-06-30 2022-06-30 (HOSP F/U) STLMLC STLC [id number] Common 00:00:00 00:00:00 [facility] Follow Up - CHI [facility] 2022-06-23 2022-06-23 (TEL) STLC STLC [id number] Co mmon 00:00:00 00:00:00 Spirit - [facility] 2022-06-22 2022-06-22 Transition MARCELINO Puri 1.2.840.114 [id number] Univers 00:00:00 00:00:00 of Care Spike VEE 350.1.13.10 ity of [place] [id number] [facility] 403 [address] 2022-06-16 2022-06-21 Inpatient X [facility] [id number] Univers 18:03:00 12:23:00 JESUS ity of [facility] 2022-06-16 2022-06-21 [facility] Hill Sawyer [facility] 1.2.840.1 [id number] Univers 18:03:00 12:23:00 Encounter Pauly Wan 350.1.1 3.10 ity of [place] 4.2.7.2.686 [facility] [id number] Medical 0[address] 2022-06-16 2022-06-16 Orders Doctor GRISEL 1.2.840.114 [id number] Univers 00:00:00 00:00:00 Only Unassigned, LEONIDES 350.1.13.10 ity of [place] [facility] 4.2.7.2.686 Faustino as [id number] [facility] 00[address] 2022-06-09 2022-06-09 [facility] [id number] Co mmon 00:00:00 00:00:00 VISIT Spirit ESTAB PT - CHI LEVEL 4 [facility] 2022-06-09 2022-06-09 (TEL) STLMLC STLC [id number] Co mmon 00:00:00 00:00:00 Spirit - [facility] 2022-06-09 2022-06-09 SUB ANNUAL STLC [facility] [id number] Common 00:00:00 00:00:00 MCR [facility] WELLNESS - CHI VISIT [facility] 2022-05-20 2022-05-20 (TEL) STLMLC STLC [id number] Co mmon 00:00:00 00:00:00 Spirit - [facility] 2022-05-18 2022-05-18 Telephone Oscar [facility] [id number] 00:00[facility]00 00:00:00 [facility] 2022-04-14 2022-04-14 Office ISSAC Krueger [facility] [id number] 13:15:00 14:25:49 Visit [facility] 2022-02-09 2022-02-09 [facility] [id number] Co mmon 00:00:00 00:00:00 VISIT [facility] PT - CHI LEVEL 4 [facility] 2022-01-04 2022-01-04 Outpatient ISSAC KRUEGER [facility] [id number] 09:57:22 12:00:27 [facility] 2021-12-17 2021-12-17 (TEL) [facility] [id number] Co mmon 00:00:00 00:00:00 Spirit - [facility] 2021-10-16 2021-10-16 Outpatient [facility] [id number] Univers 15:06:23 23:59:[address] [facility] 2021-10-16 2021-10-16 [facility] [id number] Univers 15:00:00 23:59:00 Encounter Carlton BURRELL 350.1.13.10 ity [facility] 4.2.7.2.686 [facility] [id number] [place] [address] Branch 2021-10-12 2021-10-12 OFFICE STLC STLC [id number] Co mmon 00:00:00 00:00:00 VISIT [facility] PT - CHI LEVEL 4 [facility] 2021-09-22 2021-09-22 [facility] [id number] Univers 10:16:00 12:21:00 Encounter Carlton Brower INDRA 350.1.13.10 it[facility] [place] [facility] [id number] [facility] 071 Branch 2021-09-22 2021-09-22 Outpatient R [facility] [id number] Univers 10:16:00 12:21:[address] [facility] 2021-09-22 2021-09-[address] [facility] 1.2.840.114 [id number] Univers 10:50:00 12:01:00 Carlton Leonarda INDRA 350.1.13.10 i ty [facility] [place] [id number] [facility] [address] [place] 2021-09-22 2021-09-22 Orders Doctor RECINOS 1.2.840.114 [id number] Univers 00:00:00 00:00:00 Only Unassigned, LEONIDES 350.1.13.10 ity of [place] [facility] 4.2.7.2.686 Faustino as [id number] [address] 2021-09-21 2021-09-21 Outpatient Patsy ECHEVERRIA [facility] [id number] Univers 08:15:00 08:15:00 [facility] 2021-09-04 2021-09-04 (TEL) ST[facility] [id number] Co mmon 00:00:00 00:00:00 Spirit - [facility] 2021-08-20 2021-08-[address] [facility] 1.2.840.114 [id number] Univers 12:50:00 14:12:00 Carlton Leonarda INDRA 350.1.13.10 i ty [facility] [place] [id number] [facility] [address] [place] 2021-08-20 2021-08-20 [facility] [id number] Univers 11:19:00 12:57:[address] [facility] 2021-08-20 2021-08-20 [facility] [id number] Univers 11:19:00 12:57:00 Encounter Carlton BURRELL 350.1.13.10 ity of [place] [id number] [place] 990691 Branch 2021-08-20 2021-08-20 Orders Doctor GRISEL 1.2.840.114 [id number] Univers 00:00:00 00:00:00 Only Unassigned, LEONIDES 350.1.13.10 [facility] 4.2.7.2.686 Fa[place] as [id number] [place] [address] Branch 2021-08-17 2021-08-17 [facility] [id number] Univers 08:45:00 08:45:[address] [facility] 2021-07-13 2021-07-13 (TEL) STLMLC STLMLC [id number] Co mmon 00:00:00 00:00:00 [facility] 2021-07-06 2021-07-06 (TEL) STLMLC STLMLC [id number] Co mmon 00:00:00 00:00:00 [facility] 2021-07-02 2021-07-02 Outpatient STLMLC STLMLC [id number] Common 00:00:00 00:00:00 [facility] 2021-06-16 2021-06-16 Outpatient STLMLC STLMLC [id number] Common 00:00:00 00:00:00 [facility] 2021-06-04 2021-06-04 Outpatient STLMLC STLMLC [id number] Common 00:00:00 00:00:00 [facility] 2021-06-01 2021-06-01 Outpatient STLMLC STLMLC [id number] Common 00:00:00 00:00:00 [facility] 2021-05-27 2021-05-27 Outpatient STLMLC STLMLC [id number] Common 00:00:00 00:00:00 [facility] 2021-05-20 2021-05-20 Outpatient STLMLC STLMLC [id number] Common 00:00:00 00:00:00 [facility] 2021-05-20 2021-05-20 Outpatient STLMLC STLMLC [id number] Common 00:00:00 00:00:00 [facility] 2021-04-08 2021-04-08 Outpatient STLMLC STLMLC [id number] Common 00:00:00 00:00:00 [facility] 2021-04-08 2021-04-08 Outpatient STLMLC STLMLC [id number] Common 00:00:00 00:00:00 [facility] 2021-03-25 2021-03-25 Outpatient STLMLC STLMLC [id number] Common 00:00:00 00:00:00 [facility] 2021-02-16 2021-02-16 Outpatient STLMLC STLMLC [id number] Common 00:00:00 00:00:00 [facility] 2021-02-16 2021-02-16 Outpatient STLMLC STLMLC [id number] Common 00:00:00 00:00:00 [facility] 2020-11-26 2020-11-26 Outpatient STLMLC STLMLC [id number] Common 00:00:00 00:00:00 [facility] 2020-11-20 2020-11-20 Outpatient STLMLC STLMLC [id number] Common 00:00:00 00:00:00 [facility] 2020-11-03 2020-11-03 Outpatient STLMLC STLMLC [id number] Common 00:00:00 00:00:00 [facility] 2020-09-09 2020-09-09 Outpatient STLMLC STLMLC [id number] Common 00:00:00 00:00:00 [facility] 2020-09-08 2020-09-08 Outpatient STLMLC STLMLC [id number] Common 00:00:00 00:00:00 [facility] 2020-08-20 2020-08-20 Outpatient STLMLC STLMLC [id number] Common 00:00:00 00:00:00 [facility] 2020-08-07 2020-08-07 Outpatient STLMLC STLMLC [id number] Common 00:00:00 00:00:00 [facility] 2020-07-24 2020-07-24 Outpatient STLMLC STLMLC [id number] Common 00:00:00 00:00:00 [facility] 2020-07-21 2020-07-21 Outpatient STLMLC STLMLC [id number] Common 00:00:00 00:00:00 [facility] 2020-07-21 2020-07-21 Outpatient STLMLC STLMLC [id number] Common 00:00:00 00:00:00 [facility] 2020-07-18 2020-07-18 Outpatient STLMLC STLMLC [id number] Common 00:00:00 00:00:00 [facility] 2020-07-17 2020-07-17 Outpatient STLMLC STLMLC [id number] Common 00:00:00 00:00:00 [facility] 2020-05-15 2020-05-15 [facility] [id number] Common 14:15:00 14:15:[address] [facility] 2020-04-09 2020-04-09 Out[facility] [id number] Common 08:55:00 08:55:[address] [facility] 2020-04-07 2020-04-07 Out[facility] [id number] Common 10:34:00 10:34:[address] [facility] 2020-02-13 2020-02-13 Outpatient [facility] [id number] Common 15:00:00 15:00:[address] [facility] 2020-02-13 2020-02-13 Outpatient [facility] [id number] Common 15:00:00 15:00:[address] [facility] 2020-02-08 2020-02-08 Outpatient [facility] [id number] Common 08:47:00 08:47:[address] [facility] 2019-11-19 2019-11-19 Out[facility] [id number] Common 13:00:00 13:00:[address] [facility] 2019-11-12 2019-11-12 Outpatient [facility] [id number] Common 08:28:00 08:28:[address] [facility] 2019-09-11 2019-09-11 Outpatient [facility] [id number] Common 13:30:00 13:30:00 t [facility] Sp[facility] t [facility] Joint [facility] - [facility] 2019-08-16 2019-08-16 Out[facility] [id number] Common 13:15:00 13:15:[address] [facility] 2019-07-31 2019-07-31 Outpatient [facility] [id number] Common 10:00:00 10:00:00 t Bone Bone and Spiri t and Joint Joint - [facility] 2019-07-30 2019-07-30 Out[facility] [id number] Common 14:13:00 14:13:00 t Bone Bone and Spiri t and Joint Joint - [facility] 2019-07-27 2019-07-27 Out[facility] [id number] Common 08:51:00 08:51:00 t Bone Bone and Spiri t and Joint Joint - [facility] 2019-07-10 2019-07-10 Out[facility] [id number] Common 10:00:00 10:00:00 t Bone Bone and Spiri t and Joint [facility] - [facility] 2019-07-10 2019-07-10 Out[facility] [id number] Common 08:30:00 08:30:[address] [facility] 2019-07-09 2019-07-09 Outpatient [facility] [id number] Common 10:47:00 10:47:[address] [facility] 2019-06-20 2019-06-20 Outpatient [facility] [id number] Common 13:30:00 13:30:00 t Bone Bone and Spiri t and Joint [facility] - [facility] 2019-06-20 2019-06-20 Outpatient [facility] [id number] Common 08:49:00 08:49:[address] [facility] 2019-06-18 2019-06-18 Outpatient [facility] [id number] Common 08:30:00 08:30:[address] [facility] 2019-05-21 2019-05-21 Outpatient [facility] [id number] Common 13:55:00 13:55:[address] [facility] 2019-05-18 2019-05-18 Outpatient [facility] [id number] Common 14:40:00 14:40:[address] [facility] 2019-05-17 2019-05-17 Outpatient [facility] [id number] Common 14:00:00 14:00:[address] [facility] 2019-02-08 2019-02-08 Outpatient [facility] [id number] Common 16:40:00 16:40:[address] [facility] 2019-02-06 2019-02-06 Outpatient [facility] [id number] Common 16:30:00 16:30:[address] [facility] 2019-01-30 2019-01-30 Outpatient [facility] [id number] Common 11:28:00 11:28:[address] [facility] 2019-01-25 2019-01-25 Outpatient [facility] [id number] Common 14:30:00 14:30:[address] [facility] 2018-12-07 2018-12-07 Outpatient [facility] [id number] Common 14:30:00 14:30:[address] [facility] 2018-12-05 2018-12-05 Outpatient [facility] [id number] Common 15:15:00 15:15:00 t Specialty/U Sp anitra Specialty rology - [facility] /Urology Clinic [facility] 2018-11-08 2018-11-08 Out[facility] [id number] Common 13:25:00 13:25:[address] [facility] 2018-11-01 2018-11-01 Outpatient [facility] [id number] Common 13:15:00 13:15:[address] [facility] 2018-10-27 2018-10-27 Outpatient [facility] [id number] Common 12:16:00 12:16:[address] [facility] 2018-10-26 2018-10-26 Outpatient [facility] [id number] Common 15:10:00 15:10:00 t Specialty/U Sp anitra Specialty rology - [facility]I /[facility] Clinic [facility] 2018-10-26 2018-10-26 Outpatient [facility] [id number] Common 13:45:00 13:45:00 t Specialty/U Sp anitra Specialty rology - [facility]I /[facility] Clinic [facility] 2018-10-09 2018-10-09 Outpatient [facility] [id number] Common 10:45:00 10:45:[address] [facility] 2018-09-13 2018-09-13 Outpatient [facility] [id number] Common 09:40:00 09:40:[address] [facility] 2018-09-11 2018-09-11 Outpatient Federico Hoang [id number] Common 14:30:00 14:30:00 DNsolution [facility] Results Test Description Test Time Test Comments Results Result Comments Source BASIC METABOLIC PANEL (NA, K, CL, CO2, GLUCOSE, BUN, 2022-06 11:51:11 CREATININE, CA) Test Item Value Reference Range Interpretation Comme nts NA (test code = 2022371225) 133 mmol/L 135-145 L K (test code = 2961336332) 3.7 mmol/L 3.5-5 CL (test code = 2744493176) 102 mmol/L 98-108 CO2 TOTAL (test code = 5788615047) 24 mmol/L 23-31 AGAP (test code = 6617465417) 2-16 BUN (test code = 2745740421) 3 mg/dL 7-23 L GLUCOSE (test code = 9884044813) 101 mg/dL 70-110 CREATININE (test code = 0.85 mg/dL 0.5-1.04 0112842483) CALCIUM (test code = 7573169837) 8.7 mg/dL 8.6-10.6 eGFR (test code = 5149837541) mL/min/1.73m2 COLTON (test code = COLTON) Association [...] tests). Lab Interpretation (test code = Abnormal 17319-0) [facility]87452[facility] (ALB,T.PRO,BILI T,BU/BC,ALT,AST,ALK PHOS)2022-06-21 11:50:31 Test Item Value Reference Range Interpretation Comments TOTAL BILI (test code = 3755884594) 0.2 mg/dL 0.1-1.1 BILI UNCON (test code = 6342494872) 0.1 mg/dL 0.1-1.1 BILI CONJ (test code = 3052866314) 0.0 mg/dL 0-0.3 T PROTEIN (test code = 7147609516) 6.0 g/dL 6.3-8.2 L ALBUMIN (test code = 7919489260) 3.5 g/dL 3.5-5 ALK PHOS (test code = 0708494152) 583 U/L 34-122 H ALTv (test code = 1742-6) 139 U/L 5-35 H AST(SGOT) (test code = 6274823851) 55 U/L 13-40 H Lab Interpretation (test code = Abnormal 00686-3) [facility] (NA, K, CL, CO2, GLUCOSE, BUN, CREATININE, CA)2022-06-20 10:31:12 Test Item Value Reference Range Interpretation Comments NA (test code = 135 mmol/L 135-145 2940160857) K (test code = 2.9 mmol/L 3.5-5 LL 8564171227) CL (test code = 107 mmol/L 98-108 7024152171) CO2 TOTAL (test code = 22 mmol/L 23-31 L 9063942167) AGAP (test code = 2-16 6509131632) BUN (test code = 7-23 L 6446322825) GLUCOSE (test code = 103 mg/dL 70-110 6857396665) CREATININE (test code = 0.73 mg/dL 0.5-1.04 8061637495) CALCIUM (test code = 8.4 mg/dL 8.6-10.6 L 5623268547) eGFR (test code = mL/min/1.73m2 1725432165) COLTON (test code = COLTON) Association of [...] tests). Lab Interpretation Abnormal (test code = 70066-7) [facility] WITH [id number] 09:21:48 Test Item Value Reference Range Interpretation [...] RDW-SD (test code = 40.5 fL 39-49.9 67464-1) RDW-CV (test code = 12.6 % 12-15.5 788-0) PLT (test code = See_Comment H [Automated 777-3) message] The sy stem which generated this result transmitted reference range : 166 - 358 10*3/ ?L. The reference r susana was not used to interpret this result as normal/abnormal . MPV (test code = 9.0 fL 9.5-12.9 L 94936-7) NRBC/100 WBC (test See_Comment [Automat ed code = 4313880395) message] The system which generated this result transmitted reference range : 0.0 - 10.0 /100 WBCs. The refer ence range was not u sed to interpret th is result as normal/abnormal . NRBC x10^3 (test code See_Comment [Auto mated = 5902308254) message] The s ystem which generated this result transmitted reference range : 10*3/?L. The reference range was not used to interpret this result as normal/abnormal . GRAN MAT (NEUT) % 67.8 % (test code = 770-8) IMM GRAN % (test code 1.20 % = 1442173071) LYMPH % (test code = 17.9 % 736-9) MONO % (test code = 11.7 % 5905-5) EOS % (test code = 1.2 % 713-8) BASO % (test code = 0.2 % 706-2) GRAN MAT x10^3(ANC) 4.02 10*3/uL 1.88-7.09 (test code = 8678464562) IMM GRAN x10^3 (test 0.07 10*3/uL 0-0.06 H code = 0421409262) LYMPH x10^3 (test code 1.06 10*3/uL 1.32-3.29 L = 731-0) MONO x10^3 (test code 0.69 10*3/uL 0.33-0.92 = 742-7) EOS x10^3 (test code = 0.07 10*3/uL 0.03-0.39 711-2) BASO x10^3 (test code 0.01-0.07 = 704-7) Lab Interpretation Abnormal (test code = 62775-2) [facility]AM[facility]IG[facility], [id number] 21:07:40 Test Item Value Reference Range Interpretation [...] and vomiting.Perfor med By: [facility] [address] [place], [place] [address]V aboratory Director: Joe Martinez MD, PhD [facility] PAN[facility] (80980) (ALB,T.PRO,BILI T,BU/BC,ALT,AST,ALK PHOS)2022-06-18 11:44:08 Test Item Value Reference Range Interpretation Comments TOTAL BILI (test code = 4224743903) 0.4 mg/dL 0.1-1.1 BILI UNCON (test code = 7681748095) 0.1 mg/dL 0.1-1.1 BILI CONJ (test code = 9395987901) 0.0 mg/dL 0-0.3 T PROTEIN (test code = 7064968527) 6.0 g/dL 6.3-8.2 L ALBUMIN (test code = 6503045735) 3.4 g/dL 3.5-5 L ALK PHOS (test code = 4550838306) 608 U/L 34-122 H ALTv (test code = 1742-6) 373 U/L 5-35 H AST(SGOT) (test code = 2183230606) 357 U/L 13-40 H Lab Interpretation (test code = Abnormal 67046-1) [facility] [id number] 20:52:12 Test Item Value Reference Range Interpretation Comments HBsAB (test code = Indeterminate 4838753536) HBsAb mIU/mL Semi-Quantitative (test code = 6438343615) COLTON (test code = Unable to determine if COLTON) antibody to Hepatitis B Surface Antigen is present at levels consistent with immunity. ?Patient's immune status should be assessed with other clinical information and/or retesting in 4-6 weeks as clinically indicated. ?If any questions, please contact Clinical Chemistry Director worksite wellness practitioner at .Unable to determine if antibody to Hepatitis B Surface Antigen is present at levels consistent with immunity. ?Patient's immune status should be assessed with other clinical information and/or retesting in 4-6 weeks as clinically indicated. ?If any questions, please contact Clinical Chemistry Director worksite wellness practitioner at .Unable to determine if antibody to Hepatitis B Surface Antigen is present at levels consistent with immunity. ?Patient's immune status should be assessed with other clinical information and/or retesting in 4-6 weeks as clinically indicated. ?If any questions, please contact Clinical Chemistry Director worksite wellness practitioner at .Interpretati on: ?Hepatitis B Surface Antibody ? Negative - Patient is considered to be not immune to infection with HBV. ? ? Positive - Anti-HBs detected at greater than or equal to 12 mIU/mL. ?Patient is considered to be immune to infection with HBV. ? [facility]GG[facility]2022-[facility]-17 19:04:09 Test Item Value Reference Range Interpretation Comments HBC (test code = 4578544843) Negative HBC Semi-Quantitative (test code = 8608215222) [facility] [id number] 19:04:09 Test Item Value Reference Range Interpretation Comments HCV Ab (test code = 27293-2) Negative HCV Semi-Quantitative (test code = 60754-4) [facility]HEPAT[facility]IS [facility] SURFACE [id number] 18:45:46 Test Item Value Reference Range Interpretation Comments HBsAg Semi-Quantitative (test code = Negative Negative 5195-3) [facility]PROCALCITONIN2022-09-15 16:01:08 Test Item Value Reference Interpretation Comments Range Procalcitonin (test 0.31 ng/mL See_Comment H [Automa carlton code = 7730856820) message] The system which generated this result [...] lung abscess/empyema. For further information please refer to:[email or web address] Lab Interpretation Abnormal (test code = 78264-4) [facility]COMP. METABOLIC PANEL (41931)2022-06-17 13:10:04 Test Item Value Reference Range Interpretation Comments NA (test code = 141 mmol/L 135-145 0032606991) K (test code = 3.5 mmol/L 3.5-5 1785718899) CL (test code = 111 mmol/L 98-108 H 2253346233) CO2 TOTAL (test code = 24 mmol/L 23-31 1928692669) AGAP (test code = 2-16 8296317952) BUN (test code = 8 mg/dL 7-23 7140111859) GLUCOSE (test code = 97 mg/dL 70-110 9306064155) CREATININE (test code = 0.89 mg/dL 0.5-1.04 8155007049) TOTAL BILI (test code = 1.1 mg/dL 0.1-1.5 6006806918) CALCIUM (test code = 8.2 mg/dL 8.6-10.6 L 5650073091) T PROTEIN (test code = 5.8 g/dL 6.3-8.2 L 8968486432) ALBUMIN (test code = 3.2 g/dL 3.5-5 L 8109854878) ALK PHOS (test code = 766 U/L 34-122 H 5897615211) ALTv (test code = 634 U/L 5-35 H 1742-6) AST(SGOT) (test code = 1987 U/L 13-40 H 9473965685) eGFR (test code = mL/min/1.73m2 3292725820) COLTON (test code = COLTON) Association of [...] tests). Lab Interpretation Abnormal (test code = 42533-6) [facility] HospitalTHYROID STIMULATING [id number] 12:33:26 Test Item Value Reference Range Interpretation Comments TSH (test code = See_Comment [Automated message] 1873194588) The system [employer] generated this result transmitted ref erence range: 0.45 - 4 .70 mIU/L. The refe rence range was not u sed to interpret this result as normal/abnor mal. Lab Interpretation (test Normal code = 41300-8) [facility] HospitalTROPONIN [id number] 12:15:04 Test Item Value Reference Interpretation Comments Range TROPONIN I (test 0.006 ng/mL See_Comment [Automated code = 3347080212) message] The system which generated this result [...] biotin. Lab Interpretation Normal (test code = 52956-7) [facility]N-TERMINAL [id number] 12:11:41 Test Item Value Reference Range Interpretation Comments NT-proBNP (test code 176 pg/mL See_Comment H [Autom ated = 7248503515) message] The system which generated this result transmitted reference range : <=125. The reference range was not used to interpret this result as normal/abnormal . COLTON (test code = COLTON) Biotin has been reported to cause a negative bias, interpret results relative to patient's use of biotin. Lab Interpretation Abnormal (test code = 40283-1) [facility] HospitalLIPID PANEL (25027)(TOTAL CHOLESTEROL, TRIGLYCERIDES, HDL)2022-06-17 12:03:42 Test Item Value Reference Range Interpretation Comments CHOL (test code = 152 mg/dL 120-200 0348966919) HDL (test code = 40 mg/dL See_Comment L [Automated message] 8755334803) The system [employer] generated this result transmit carlton reference range : >=50. The refer ence range was not u sed to interpret th is result as normal/abnormal . HDLC RATIO (test code = See_Comment [Au tomated message] 5152422663) The system [employer] generated this result transmit carlton reference range : <=4.5. The refe rence range was not u sed to interpret th is result as normal/abnormal . TRIG (test code = 102 mg/dL 30-170 1669068045) LDL CHOL (test code = 92 mg/dL See_Comment [Auto mated message] 34918-8) The system [employer] generated this result transmit carlton reference range : <=160. The refe rence range was not u sed to interpret th is result as normal/abnormal . VLDL (test code = 20 mg/dL 5-60 8811900852) Lab Interpretation (test Abnormal code = 20844-1) [facility]MAGNESIUM2022-[facility]-15 12:03:42 Test Item Value Reference Range Interpretation Comments MAGNESIUM (test code = 8279675596) 2.0 mg/dL 1.7-2.4 Lab Interpretation (test code = Normal 35716-0) [facility] HospitalPHOSPHORUS2022-09-15 12:03:21 Test Item Value Reference Range Interpretation Comments PHOSPHORUS (test code = 5697987886) 3.7 mg/dL 2.5-5 Lab Interpretation (test code = Normal 22464-2) [facility] HospitalProthrombin Time / [id number] 10:10:50 Test Item Value Reference Range Interpretation Comments PROTIME PATIENT (test See_Comment [Auto mated message] code = 5964-2) The system [employer] generated this result transmitted ref erence range: 12.0 - 1 4.7 Seconds. The re ference range was not u sed to interpret this result as normal/abnor mal. INR (test code = 6301-6) Nor mal INR <1.1; Warfarin Therap eutic range 2.0 to 3. 0 or 2.5 to 3.5, dep ending upon the indica tions. Lab Interpretation (test Normal code = 36645-9) [facility] WITH [id number] 09:47:03 Test Item Value Reference Range Interpretation [...] RDW-SD (test code = 43.2 fL 39-49.9 49895-1) RDW-CV (test code = 12.6 % 12-15.5 788-0) PLT (test code = See_Comment [Automated 777-3) message] The sy stem which generated this result transmitted reference range : 166 - 358 10*3/ ?L. The reference r susana was not used to interpret this result as normal/abnormal . MPV (test code = 9.0 fL 9.5-12.9 L 96137-5) NRBC/100 WBC (test See_Comment [Automat ed code = 6860200099) message] The system which generated this result transmitted reference range : 0.0 - 10.0 /100 WBCs. The refer ence range was not u sed to interpret th is result as normal/abnormal . NRBC x10^3 (test code See_Comment [Auto mated = 7683137399) message] The s ystem which generated this result transmitted reference range : 10*3/?L. The reference range was not used to interpret this result as normal/abnormal . GRAN MAT (NEUT) % 70.7 % (test code = 770-8) IMM GRAN % (test code 0.50 % = 2635792478) LYMPH % (test code = 15.3 % 736-9) MONO % (test code = 12.0 % 5905-5) EOS % (test code = 1.3 % 713-8) BASO % (test code = 0.2 % 706-2) GRAN MAT x10^3(ANC) 5.85 10*3/uL 1.88-7.09 (test code = 9478833517) IMM GRAN x10^3 (test 0.04 10*3/uL 0-0.06 code = 3296576715) LYMPH x10^3 (test code 1.27 10*3/uL 1.32-3.29 L = 731-0) MONO x10^3 (test code 0.99 10*3/uL 0.33-0.92 H = 742-7) EOS x10^3 (test code = 0.11 10*3/uL 0.03-0.39 711-2) BASO x10^3 (test code 0.01-0.07 = 704-7) Lab Interpretation Abnormal (test code = 00364-0) [facility] HospitalGLYCOSYLATED HEMOGLOBIN (A1C)2022-06-17 06:45:49 Test Item Value Reference Range Interpretation Comments HGB A1C (test code = 5.4 % 4-5.7 4548-4) COLTON (test code = COLTON) Reference RangesNormal: <5.7%Prediabetes: 5.7 - 6.4%Diabetes: > 6.5% Lab Interpretation (test Normal code = 03287-9) [facility] HospitalTROPONIN [id number] 00:41:17 Test Item Value Reference Interpretation Comments Range TROPONIN I (test 0.004 ng/mL See_Comment [Automated code = 2608044635) message] The system which generated this result [...] biotin. Lab Interpretation Normal (test code = 41306-6) [facility] WITH [id number] 00:35:10 Test Item Value Reference Range Interpretation Comments WBC (test code = See_Comment H [Automated 7590-2) message] The sy stem which generated this [...] RDW-SD (test code = 42.3 fL 39-49.9 30230-5) RDW-CV (test code = 12.6 % 12-15.5 788-0) PLT (test code = See_Comment H [Automated 777-3) message] The sy stem which generated this result transmitted reference range : 166 - 358 10*3/ ?L. The reference r susana was not used to interpret this result as normal/abnormal . MPV (test code = 8.7 fL 9.5-12.9 L 46422-9) NRBC/100 WBC (test See_Comment [Automat ed code = 7252740232) message] The system which generated this result transmitted reference range : 0.0 - 10.0 /100 WBCs. The refer ence range was not u sed to interpret th is result as normal/abnormal . NRBC x10^3 (test code See_Comment [Auto mated = 5068906021) message] The s ystem which generated this result transmitted reference range : 10*3/?L. The reference range was not used to interpret this result as normal/abnormal . GRAN MAT (NEUT) % 73.1 % (test code = 770-8) IMM GRAN % (test code 0.40 % = 7751511605) LYMPH % (test code = 13.3 % 736-9) MONO % (test code = 11.8 % 5905-5) EOS % (test code = 1.1 % 713-8) BASO % (test code = 0.3 % 706-2) GRAN MAT x10^3(ANC) 8.51 10*3/uL 1.88-7.09 H (test code = 7682910809) IMM GRAN x10^3 (test 0.05 10*3/uL 0-0.06 code = 2684177841) LYMPH x10^3 (test code 1.55 10*3/uL 1.32-3.29 = 731-0) MONO x10^3 (test code 1.37 10*3/uL 0.33-0.92 H = 742-7) EOS x10^3 (test code = 0.13 10*3/uL 0.03-0.39 711-2) BASO x10^3 (test code 0.03 10*3/uL 0.01-0.07 = 704-7) Lab Interpretation Abnormal (test code = 99563-7) [facility]COMP. MET[facility]OLIC PANEL (44350)2022-06-17 00:30:09 Test Item Value Reference Range Interpretation Comments NA (test code = 135 mmol/L 135-145 9594666260) K (test code = 4.4 mmol/L 3.5-5 7565845197) CL (test code = 102 mmol/L 98-108 6289623886) CO2 TOTAL (test code = 22 mmol/L 23-31 L 2987770708) AGAP (test code = 2-16 0778795717) BUN (test code = 9 mg/dL 7-23 9014285224) GLUCOSE (test code = 113 mg/dL 70-110 H 5695838666) CREATININE (test code = 0.89 mg/dL 0.5-1.04 9227906519) TOTAL BILI (test code = 0.7 mg/dL 0.1-1.8 7204624261) CALCIUM (test code = 9.2 mg/dL 8.6-10.6 3570365379) T PROTEIN (test code = 7.4 g/dL 6.3-8.2 6241279634) ALBUMIN (test code = 4.4 g/dL 3.5-5 3677447732) ALK PHOS (test code = 158 U/L 34-122 H 1989813025) ALTv (test code = 20 U/L 5-35 1742-6) AST(SGOT) (test code = 32 U/L 13-40 1060025417) eGFR (test code = mL/min/1.73m2 5705024473) COLTON (test code = COLTON) Association of [...] tests). Lab Interpretation Abnormal (test code = 34126-9) [facility]2022-[facility] 00:30:09 Test Item Value Reference Range Interpretation Comments MAGNESIUM (test code = 0535953022) 2.0 mg/dL 1.7-2.4 Lab Interpretation (test code = Normal 01761-7) [facility] HospitalLIPASE2022-09-15 00:29:54 Test Item Value Reference Range Interpretation Comments LIPASE (test code = 1143238259) 102 U/L 0-220 Lab Interpretation (test code = Normal 13462-9) [facility] HospitalPOCT [id number] 22:24:44 Test Item Value Reference Range Interpretation Comments POCT Creatinine (test code = 0.7 mg/dL 0.5-1.6 6181938211) Lab Interpretation (test code = Normal 00887-3) [facility] HospitalLIPASE2019-10-01 06:29:00 Test Item Value Reference Range Interpretation Comments LIPASE (BEAKER) (test code = 749) 48 U/L 8-78 COMPREHENSIVE METABOLIC [id number] 06:29:00 Test Item Value Reference Range Interpretation [...] PATIEN TS. CBC W/PLT COUNT & AUTO [id number] 05:57:00 Test Item Value Reference Range Interpretation [...] 413) RAD, ABDOMEN SERIES W/ UPRIGHT PA [id number] 13:35:00Reason for exam:- >Postoperative distentionShould this be [...] Horne MDReport Verified Date/Time: 07/02/2019 13:35:05 Reading Location:[facility] Radiology Reading Room [id number] 06:54:00 Test Item Value Reference Range Interpretation Comments LIPASE (BEAKER) (test code = 749) 56 U/L 8-78 COMPREHENSIVE METABOLIC [id number] 06:54:00 Test Item Value Reference Range Interpretation [...] PATIEN TS. CBC W/PLT COUNT & AUTO [id number] 06:31:00 Test Item Value Reference Range Interpretation [...] = 2801) CBC W/PLT COUNT & AUTO [id number] 06:59:00 Test Item Value Reference Range Interpretation [...] 0-1 PERCENT (BEAKER) (test code = 2801) [id number] 06:51:00 Test Item Value Reference Range Interpretation Comments LIPASE (BEAKER) (test code = 749) 53 U/L 8-78 COMPREHENSIVE METABOLIC [id number] 06:51:00 Test Item Value Reference Range Interpretation [...] PATIEN TS. CBC W/PLT COUNT & AUTO [id number] 06:20:00 Test Item Value Reference Range Interpretation [...] GRANULOCYTES-RELATIVE PERCENT (BEAKER) (test code = 2801) [id number] 05:44:00 Test Item Value Reference Range Interpretation Comments LIPASE (BEAKER) (test code = 749) 52 U/L 8-78 COMPREHENSIVE METABOLIC [id number] 05:44:00 Test Item Value Reference Range Interpretation [...] S NOT APPLICABLE FOR DIALYSIS PATIEN TS. [id number] 05:21:00 Test Item Value Reference Range Interpretation Comments LIPASE (BEAKER) (test code = 749) 72 U/L 8-78 COMPREHENSIVE METABOLIC [id number] 05:21:00 Test Item Value Reference Range Interpretation [...] PATIEN TS. CBC W/PLT COUNT & AUTO [id number] 05:14:00 Test Item Value Reference Range Interpretation [...] 0-1 PERCENT (BEAKER) (test code = 2801) [id number] 05:17:00 Test Item Value Reference Range Interpretation Comments LIPASE (BEAKER) (test code = 749) 55 U/L 8-78 COMPREHENSIVE METABOLIC [id number] 05:17:00 Test Item Value Reference Range Interpretation [...] PATIEN TS. CBC W/PLT COUNT & AUTO [id number] 04:59:00 Test Item Value Reference Range Interpretation [...] WBC 0-0 (BEAKER) (test code = 413) [id number] 07:03:00 Test Item Value Reference Range Interpretation Comments LIPASE (BEAKER) (test code = 749) 40 U/L 8-78 COMPREHENSIVE METABOLIC [id number] 07:03:00 Test Item Value Reference Range Interpretation [...] PATIEN TS. CBC W/PLT COUNT & AUTO [id number] 06:03:00 Test Item Value Reference Range Interpretation [...] 0-1 PERCENT (BEAKER) (test code = 2801) [id number] 07:19:00 Test Item Value Reference Range Interpretation Comments LIPASE (BEAKER) (test code = 749) 37 U/L 8-78 COMPREHENSIVE METABOLIC [id number] 07:19:00 Test Item Value Reference Range Interpretation [...] PATIEN TS. CBC W/PLT COUNT & AUTO [id number] 05:30:00 Test Item Value Reference Range Interpretation [...] (BEAKER) (test code = 2801) BASIC METABOLIC [id number] 20:44:00 Test Item Value Reference Range Interpretation [...] 0-0 (BEAKER) (test code = 413) PROTHROMBIN TIME/[id number] 15:49:00 Test Item Value Reference Range Interpretation [...] mechanical heart valves.RAD, CHEST, 1 VIEW, NON [id number] 15:13:00Reason for exam:->preopShould this be performed at the bedside?->YesFINAL REPORT INDICATION: preop COMPARISON: None TECHNIQUE: Single frontal view of the chest. FINDINGS: Lungs and pleura: Clear lungs. No effusion.Heart and mediastinum: Normal heart size. Unremarkable mediastinal contours.Osseous structures: No acute abnormality.Other: None. IMPRESSION: No acute intrathoracic abnormality. Signed: Charmaine Soliz Verified Date/Time: 06/25/2019 15:13:30 Reading Location: [facility] Radiology Reading Room [id number] 11:37:00 Test Item Value Reference Range Interpretation Comments LIPASE (BEAKER) (test code = 749) 168 U/L 8-78 H COMPREHENSIVE METABOLIC [id number] 11:37:00 Test Item Value Reference Range Interpretation [...] PATIEN TS. CBC W/PLT COUNT & AUTO [id number] 11:16:00 Test Item Value Reference Range Interpretation [...] % 0-1 PERCENT (BEAKER) (test code = 5372)"
[2023-08-23 12:36] LABS: Absolute Lymphocytes (CBC) 1.7 K/uL (0.7-4.9); Hematocrit 41.1 % (36.0-45.0); Lymphocytes % 44.5 % (15.3-44.8); MCV 91.4 fL (80-100); Platelets 352 thou/uL (152-406)
[2023-08-23] MEDS ORDERED: NA CHLORIDE 0.9% 1,000 ML ONE ×2 (12:40→14:18)
[2023-08-23] MEDS ORDERED: ONDANSETRON 4 MG/2 ML VIAL ONE (12:40)
[2023-08-23] MEDS ORDERED: MORPHINE 4 MG/ML SYR ONE (12:40)
[2023-08-23 12:57] LABS: Albumin 2.7 g/dL (3.4-5.0); Bilirubin Total 0.5 mg/dL (0.2-1.0); Potassium 2.7 mEq/L (3.5-5.1); Protein, Total 5.3 g/dL (6.4-8.2)
[2023-08-23] MEDS ORDERED: PROMETHAZINE 25 MG/SUPP PR ONE (13:03)
--- NOTE | 2023-08-23 13:34 | RAD REPORT ---
EXAM DESCRIPTION: CTAbdomen Pelvis W Contrast - 08/23/2023 1:20 pm CLINICAL HISTORY: Abd pain;Constipation COMPARISON: Abdomen Pelvis W Contrast dated 07/19/2023; Abdomen Pelvis W Contrast dated 3; Abdomen Pelvis W Contrast dated 06/25/2019; Abdomen Pelvis W Contrast dated 12/07/2017 TECHNIQUE: CT of the abdomen and pelvis was performed. All CT scans are performed using dose optimization technique as appropriate and may include automated exposure control or mA/KV adjustment according to patient size. FINDINGS: Lower chest: No acute abnormality. Liver: No acute abnormality or suspicious lesions. Biliary: Similar intra and extrahepatic biliary duct dilatation. Cholecystectomy Stomach: Marlys-en-Y gastric bypass. Duodenum: No significant focal abnormality. Pancreas: Pancreatic atrophy. Spleen: No significant abnormality. Adrenal: No suspicious lesions. Kidney/ureter: No hydronephrosis. No renal calculi. Retroperitoneum: No retroperitoneal adenopathy. Vascular: No aneurysm. Bowel: Moderate colonic stool. No bowel obstruction. Previously noted colonic wall thickening has mos tly resolved. There is some questionable residual wall thickening at the proximal transverse colon. Peritoneum: No ascites or free air. Bladder: Grossly unremarkable. Reproductive: No adnexal masses. Bones: No acute fracture. Grade 1/2 anterolisthesis of L4 on L5. Other: n/a IMPRESSION: Previously noted colonic wall thickening has mostly resolved. Moderate colonic stool not ed. No bowel obstruction. Other incidental findings as noted above including similar intra and extrah epatic biliary ductal dilatation.
--- NOTE | 2023-08-23 13:53 | ER ---
Nurse's Notes [facility] Name: Janice Bosch Age: 57 yrs Sex: Female : 1965 Arrival Date: 08/23/2023 Time: 11:25 Bed 16 Private MD: Diagnosis: Dehydration;Hypokalemia;Intractable abdominal pain with nausea and vomiting;Constipation Presentation: 08/23 12:09 Chief complaint: Parent and/or Guardian states: Abdominal pain since Tuesday along nj1 nausea. Constipated for a week, has taken laxatives with no relief. No vomiting. Coronavirus screen: Vaccine status: Patient reports receiving the 2nd dose of the covid vaccine. Ebola Screen: Patient denies travel to an Ebola-affected area in the 21 days before illness onset. Initial Sepsis Screen: Does the patient meet any 2 criteria? HR > 90 bpm. No. Patient's initial sepsis screen is negative. Does the patient have a suspected source of infection? No. Patient's initial sepsis screen is negative. Risk Assessment: Do you want to hurt yourself or someone else? Patient reports no desire to harm self or others. Onset of symptoms was August 21, 2023. 12:09 Method Of Arrival: Wheelchair nj1 12:09 Acuity: BONITA 3 nj1 Historical: - Allergies: 12:11 Reglan; nj1 12:11 Requip; nj1 - PMHx: 12:11 Migraines; ibs; Hypertension; Fibromyalgia; chronic back pain; bowel obstruction; nj1 Bipolar disorder; - PSHx: 12:11 Appendectomy; section; Cholecystectomy; hysterectomy; Gastric Bypass; nj1 - Immunization history:: Client reports receiving the 2nd dose of the Covid vaccine. - Social history:: Smoking status: Patient denies any tobacco usage or history of. Screenin:31 [facility] ED Fall Risk Assessment (Adult) History of falling in the last 3 months, me1 including since admission No falls in past 3 months (0 pts) Confusion or Disorientation No (0 pts) Intoxicated or Sedated No (0 pts) Impaired Gait No (0 pts) Mobility Assist Device Used No (0 pt) Altered Elimination No (0 pt) Score/Fall Risk Level 0 - 2 = Low Risk. Abuse screen: Denies threats or abuse. Nutritional screening: No deficits noted. Tuberculosis screening: No symptoms or risk factors identified. Assessment: 12:31 General: Appears uncomfortable, well groomed, well developed, well nourished, Behavior me1 is cooperative, appropriate for age, crying, restless, Reports Abdominal pain since Tuesday along nausea. Constipated for a week, has taken laxatives with no relief. No vomiting. Pain: Complains of pain in abdomen Pain does not radiate. Pain currently is 10 out of 10 on a pain scale. Quality of pain is described as crampy, Pain began gradually, one week Is continuous. Neuro: Level of Consciousness is awake, alert, obeys commands, Oriented to person, place, time, situation, Appropriate for age. Cardiovascular: Capillary refill < 3 seconds Patient's skin is warm and dry. Respiratory: Airway is patent Respiratory effort is even, unlabored, Respiratory pattern is regular, symmetrical. GI: Abdomen is distended, Bowel sounds present X 4 quads. Abd is soft X 4 quads. : Denies burning with urination, pain urinary frequency. Vital Signs: 12:09 BP 118 / 74; Pulse 94; Resp 20; Temp 98.3(O); Pulse Ox 100% ; Weight 56.7 kg; Height 5 nj1 ft. 2 in. ; Pain 10/10; 12:30 BP 135 / 70; Pulse 88; Resp 19; Pulse Ox 100% on R/A; me1 13:00 BP 141 / 79; Pulse 83; Resp 19; Pulse Ox 100% on R/A; me1 14:00 BP 131 / 80; Pulse 86; Resp 20; Pulse Ox 100% on R/A; me1 15:00 BP 139 / 84; Pulse 89; Resp 18; Pulse Ox 100% on R/A; me1 16:20 BP 114 / 60; Pulse 75; Resp 16; Pulse Ox 99% on R/A; me1 17:01 BP 129 / 64; Pulse 80; Resp 16; Pulse Ox 100% on R/A; me1 12:09 Body Mass Index 22.86 (56.70 kg, 157.48 cm) nj1 12:09 Pain Scale: Adult [facility] ED Course: 11:28 Patient arrived in ED. mg5 11:31 [facility]oney [facility] jh7 11:31 Michael Michele MD is Attending Physician. 7 12:11 Triage completed. nj1 12:12 Arm band placed on right wrist. nj1 12:19 Inserted saline lock: 20 gauge in left antecubital area, using aseptic technique. Blood nj1 collected. 12:24 Mine Childers, LEONID is Primary Nurse. me1 12:31 Patient has correct armband on for positive identification. Bed in low position. Call me1 light in reach. Side rails up X 1. Provided Education on: POC. Verbalized understanding. . 12:31 No provider procedures requiring assistance completed. Flushed left antecubital. me1 13:20 CT Abd/Pelvis - IV Contrast Only In Process Unspecified. EDMS 13:51 Isauro Chen MD is Hospitalizing Provider. 7 16:56 Patient admitted, IV remains in place. me1 17:02 IV discontinued, intact, bleeding controlled, No redness/swelling at site. Pressure me1 dressing applied. Administered Medications: 12:31 Drug: NS 0.9% IV 1000 ml IV at 1 bolus Per protocol; 1000 mL bolus Route: IV; Rate: 1 me1 bolus; Site: left antecubital; 15:22 Follow up: IV Status: Completed infusion me1 12:31 Drug: Ondansetron IVP 4 mg IVP once; over 2 minutes Route: IVP; Site: left antecubital; me1 13:10 Follow up: Response: (VIS) Vaccine information sheet provided today. Questions and/or me1 concerns addressed. VIS edition date: May 08, 2021.; Nausea unchanged 12:31 Drug: morphine IVP or IV 4 mg IVP once over 4 mins Route: IVP; Infused Over: 4 mins; me1 Site: left antecubital; 13:09 Follow up: Response: No adverse reaction; Pain is decreased me1 12:54 CANCELLED (changed to suppositoryy): [id number] mg IVP once me1 12:54 Drug: Promethazine PA Suppository 25 mg PA once Route: PA; me1 13:10 Follow up: Response: No adverse reaction; Nausea is decreased me1 14:13 Drug: Potassium Chloride IV 20 mEq IV at 1 calculated rate once; administer over 1-2 me1 hours Route: IV; Rate: 1 calculated rate; Site: left antecubital; 16:13 Follow up: Response: No adverse reaction; IV Status: Completed infusion me1 14:13 Drug: fentaNYL (PF) IVP 50 mcg IVP once Route: IVP; Site: left antecubital; wa1 15:19 Follow up: Response: No adverse reaction; Pain is decreased me1 Medication: 12:31 VIS not applicable for this client. wa1 Outcome: 13:52 Decision to Hospitalize by Provider. [facility] 16:56 Admitted to Med/surg accompanied by tech, via wheelchair, room 202, with chart, Report me1 called to LEONID Palacio 16:56 Condition: stable me1 16:56 Instructed on the need for admit, 17:04 Patient left the ED. [facility] Signatures: Dispatcher [employer] EDSoheila Dubon, TIRE TECHNICIAN TIRE TECHNICIAN 7 Ani Powell RN RN dc1 Mine Childers RN RN wa1 Riya Holder mg5 Corrections: (The following items were deleted from the chart) 11:59 11:59 The history from the nurse's notes was reviewed and I agree with what is [facility] documented. [facility] 12:12 12:09 Pulse 94bpm; Resp 20bpm; Pulse Ox 100%; Temp 98.3F Oral; 56.7 kg; Height 5 ft. 2 nj1 in.; BMI: 22.8; Pain 10, Adult; [facility] 12:31 12:09 Chief complaint: Parent and/or Guardian states: Abdominal pain since Tuesday along me1 nausea. Constipated for a week, has taken laxatives with no relief. No vomiting. [facility]
--- NOTE | 2023-08-23 13:53 | EDPHYS ---
Physician Documentation [facility] Name: Janice Bosch Age: 57 yrs Sex: Female : 1965 Arrival Date: 08/23/2023 Time: 11:25 Bed 16 Private MD: ED Physician Michael Michele HPI: 08/23 11:31 This 57 yrs old Female presents to ER via Unassigned with complaints of Abdominal Pain. jh7 11:31 The patient presents with abdominal pain in the epigastric area. Onset: The jh7 symptoms/episode began/occurred 5 day(s) ago, and became worse today. The symptoms do not radiate. Associated signs and symptoms: Pertinent positives: nausea and vomiting, constipation, Pertinent negatives: diarrhea, fever. The symptoms are described as sharp. Modifying factors: the symptoms are aggravated by touching the area. Severity of pain: in the emergency department the pain is actually worse markedly. History of small bowel obstruction and hypertension. Historical: - Allergies: 12:11 Reglan; nj1 12:11 Requip; nj1 - PMHx: 12:11 Migraines; ibs; Hypertension; Fibromyalgia; chronic back pain; bowel obstruction; nj1 Bipolar disorder; - PSHx: 12:11 Appendectomy; section; Cholecystectomy; hysterectomy; Gastric Bypass; nj1 - Immunization history:: Client reports receiving the 2nd dose of the Covid vaccine. - Social history:: Smoking status: Patient denies any tobacco usage or history of. ROS: 11:38 Constitutional: Negative for fever, chills, and weight loss, Eyes: Negative for injury, jh7 pain, redness, and discharge, Neck: Negative for injury, pain, and swelling, Cardiovascular: Negative for chest pain, palpitations, and edema, Respiratory: Negative for shortness of breath, cough, wheezing, and pleuritic chest pain, Back: Negative for injury and pain, MS/Extremity: Negative for injury and deformity, Skin: Negative for injury, rash, and discoloration, Neuro: Negative for headache, weakness, numbness, tingling, and seizure, 11:38 Abdomen/GI: Positive for abdominal pain, nausea and vomiting, constipation, Negative for diarrhea, black/tarry stool, rectal pain, rectal bleeding, 11:38 All other systems are negative, Exam: 11:38 Head/Face: Normocephalic, atraumatic. Neck: Trachea midline, no thyromegaly or masses jh7 palpated, and no cervical lymphadenopathy. Supple, full range of motion without nuchal rigidity, or vertebral point tenderness. No Meningismus. Cardiovascular: Regular rate and rhythm with a normal S1 and S2. No gallops, murmurs, or rubs. Normal PMI, no JVD. No pulse deficits. Respiratory: Lungs have equal breath sounds bilaterally, clear to auscultation and percussion. No rales, rhonchi or wheezes noted. No increased work of breathing, no retractions or nasal flaring. Back: No spinal tenderness. No costovertebral tenderness. Full range of motion. Skin: Warm, dry with normal turgor. Normal color with no rashes, no lesions, and no evidence of cellulitis. MS/ Extremity: Pulses equal, no cyanosis. Neurovascular intact. Full, normal range of motion. Neuro: Awake and alert, GCS 15, oriented to person, place, time, and situation. Motor strength 5/5 in all extremities. Sensory grossly intact. Normal gait. 11:38 Abdomen/GI: Inspection: abdomen appears normal, Bowel sounds: normal, Palpation: moderate abdominal tenderness, in all quadrants, 11:38 Constitutional: The patient appears alert, awake, in obvious pain, jh7 Vital Signs: 12:09 BP 118 / 74; Pulse 94; Resp 20; Temp 98.3(O); Pulse Ox 100% ; Weight 56.7 kg; Height 5 nj1 ft. 2 in. ; Pain 10/10; 12:30 BP 135 / 70; Pulse 88; Resp 19; Pulse Ox 100% on R/A; me1 13:00 BP 141 / 79; Pulse 83; Resp 19; Pulse Ox 100% on R/A; me1 14:00 BP 131 / 80; Pulse 86; Resp 20; Pulse Ox 100% on R/A; me1 15:00 BP 139 / 84; Pulse 89; Resp 18; Pulse Ox 100% on R/A; me1 16:20 BP 114 / 60; Pulse 75; Resp 16; Pulse Ox 99% on R/A; me1 17:01 BP 129 / 64; Pulse 80; Resp 16; Pulse Ox 100% on R/A; me1 12:09 Body Mass Index 22.86 (56.70 kg, 157.48 cm) [facility] 12:09 Pain Scale: Adult [facility] MDM: 11:31 Patient medically screened. [facility] 14:05 Differential diagnosis: bowel obstruction, gastritis, Pyelonephritis. Data reviewed: [facility] vital signs, nurses notes, lab test result(s), radiologic studies, CT scan. Consideration of Admission/Observation Patient was admitted/placed on observation. Management of patient was discussed with the following: Hospitalist: SHREYA Curry for Dr. Hernandez. I considered the following discharge prescriptions or medication management in the emergency department Medications were administered in the Emergency Department. See MAR. Historians other than the Patient: Spouse/Significant Other: . Care significantly affected by the following chronic conditions: Hypertension. Counseling: I had a detailed discussion with the patient and/or guardian regarding the historical points, exam findings, and any diagnostic results supporting the discharge/admit diagnosis, the need for further work-up and treatment in the hospital. Response to treatment: the patient's symptoms have mildly improved after treatment. 08/23 11:42 Order name: CBC with Diff; Complete Time: 12:44 [facility] 08/23 11:42 Order name: CMP; Complete Time: 13:02 [facility] 08/23 11:42 Order name: Lipase; Complete Time: 13:02 [facility] 08/23 11:42 Order name: Urinalysis w/ reflexes; Complete Time: 13:59 [facility] 08/23 14:32 Order name: Basic Metabolic Panel [facility] 08/23 14:35 Order name: Magnesium [facility] 08/23 14:35 Order name: Phosphorus [facility] 08/23 14:35 Order name: T4 Free [facility] 08/23 14:35 Order name: Thyroid Stimulating Hormone [facility] 08/23 14:35 Order name: Urinalysis w/ reflexes [facility] 08/23 14:35 Order name: Basic Metabolic Panel [facility] 08/23 14:35 Order name: Basic Metabolic Panel [facility] 08/23 14:35 Order name: CBC with Automated Diff [facility] 08/23 14:35 Order name: CBC with Automated Diff [facility] 08/23 14:35 Order name: Lipid Profile [facility] 08/23 14:35 Order name: Lipid Profile [facility] 08/23 11:42 Order name: CT Abd/Pelvis - IV Contrast Only; Complete Time: 13:35 [facility] 08/23 11:42 Order name: IV Saline Lock; Complete Time: 12:24 7 08/23 11:42 Order name: Labs collected and sent; Complete Time: 12:24 jh7 Administered Medications: 12:31 Drug: NS 0.9% IV 1000 ml IV at 1 bolus Per protocol; 1000 mL bolus Route: IV; Rate: 1 me1 bolus; Site: left antecubital; 15:22 Follow up: IV Status: Completed infusion me1 12:31 Drug: Ondansetron IVP 4 mg IVP once; over 2 minutes Route: IVP; Site: left antecubital; me1 13:10 Follow up: Response: (VIS) Vaccine information sheet provided today. Questions and/or me1 concerns addressed. VIS edition date: May 08, 2021.; Nausea unchanged 12:31 Drug: morphine IVP or IV 4 mg IVP once over 4 mins Route: IVP; Infused Over: 4 mins; me1 Site: left antecubital; 13:09 Follow up: Response: No adverse reaction; Pain is decreased me1 12:54 CANCELLED (changed to suppositoryy): [id number] mg IVP once me1 12:54 Drug: Promethazine TN Suppository 25 mg TN once Route: TN; me1 13:10 Follow up: Response: No adverse reaction; Nausea is decreased me1 14:13 Drug: Potassium Chloride IV 20 mEq IV at 1 calculated rate once; administer over 1-2 me1 hours Route: IV; Rate: 1 calculated rate; Site: left antecubital; 16:13 Follow up: Response: No adverse reaction; IV Status: Completed infusion me1 14:13 Drug: fentaNYL (PF) IVP 50 mcg IVP once Route: IVP; Site: left antecubital; me1 15:19 Follow up: Response: No adverse reaction; Pain is decreased me1 Disposition Summary: 08/23/23 13:52 Hospitalization Ordered Notes: Hospitalization Status: Inpatient Admission [facility] Provider: Isauro Chen [facility] Condition: Fair [facility] Problem: new [facility] Symptoms: have worsened [facility] Bed/Room Type: Standard [facility] Location: Telemetry/MedSurg (Inpatient)(08/23/23 15:56) bd Room Assignment: 202(08/23/23 15:56) bd Diagnosis - Dehydration jh7 - Hypokalemia jh7 - Intractable abdominal pain with nausea and vomiting jh7 - Constipation [facility] Forms: - Medication Reconciliation Form [facility] - SBAR form [facility] - Leadership Thank You Letter [facility] Signatures: Dispatcher [employer] EDNelia Beckham Jennifer, PAINT MAKER PAINT MAKER [facility] Radha Sue, RN RN kb3 Ani Powell, RN RN nj1 Mine Childers RN RN me1 Corrections: (The following items were deleted from the chart) 11:59 11:59 The history from the nurse's notes was reviewed and I agree with what is [facility] documented. [facility] 12:01 11:38 Constitutional: This is a well developed, well nourished patient who is awake, [facility] alert, and in no acute distress. Head/Face: Normocephalic, atraumatic. Neck: Trachea midline, no thyromegaly or masses palpated, and no cervical lymphadenopathy. Supple, full range of motion without nuchal rigidity, or vertebral point tenderness. No Meningismus. Cardiovascular: Regular rate and rhythm with a normal S1 and S2. No gallops, murmurs, or rubs. Normal PMI, no JVD. No pulse deficits. Respiratory: Lungs have equal breath sounds bilaterally, clear to auscultation and percussion. No rales, rhonchi or wheezes noted. No increased work of breathing, no retractions or nasal flaring. Back: No spinal tenderness. No costovertebral tenderness. Full range of motion. Skin: Warm, dry with normal turgor. Normal color with no rashes, no lesions, and no evidence of cellulitis. MS/ Extremity: Pulses equal, no cyanosis. Neurovascular intact. Full, normal range of motion. Neuro: Awake and alert, GCS 15, oriented to person, place, time, and situation. Motor strength 5/5 in all extremities. Sensory grossly intact. Normal gait. [facility] 12:54 12:44 Promethazine IVP 25 mg IVP once ordered. [facility] me1 15:44 13:52 Telemetry/MedSurg (Inpatient) [facility] kb3 15:44 13:52 [facility] kb3 15:56 15:44 [facility] ER HOLD kb3 bd 15:56 15:44 ERHOLD- kb3 bd
[2023-08-23 13:57] LABS: Specific Gravity 1.007 (1.005-1.030); Urine Bilirubin NEGATIVE (Negative); Urine Blood Negative (Negative); Urine Clarity Clear (Clear); Urine Color Colorless (Yellow); Urine Glucose NEGATIVE (Negative); Urine Protein NEGATIVE (Negative); Urine Urobilinogen Normal (Normal)
[2023-08-23] MEDS ORDERED: FENTANYL CITR 100 MCG/2 ML ONE (14:17)
[2023-08-23] MEDS ORDERED: KCL 20 MEQ/100 mL IVPB 100 ML IV ONE (14:17)
[2023-08-23] MEDS ORDERED: ACETAMINOPHEN 325 MG TABLET PO PRN (14:27)
[2023-08-23] MEDS ORDERED: SODIUM CHLORIDE 0.9% 10ML INJ IV PRN (14:34)
[2023-08-23] MEDS ORDERED: POLYETHYL GLY 3350 17 GM/DOSE PO PRN (14:37)
--- NOTE | 2023-08-23 14:37 | P.HP ---
Certification for Inpatient Patient admitted to: Inpatient With expected LOS: >2 Midnights Patient will require the following post-hospital care: None Practitioner: I am a practitioner with admitting privileges, knowledge of patient current condition, hospital course, and medical plan of care. Services: Services provided to patient in accordance with Admission requirements found in Title 42 Section 412.3 of the Code of Federal Regulations Patient History Date of Service: 08/23/23 Reason for admission: N\\V\\Abd pain History of Present Illness: Patient is a 57-year-old female with a past medical history significant for hypertension, migraine headache, fibromyalgia, chronic back pain, bipolar disorder who presents with complaint of generalized abdominal pain onset 5 days ago. Patient rated pain as 10/10 in severity, described as sharp\\throbbing in quality. Patient reported associated signs and symptoms of nausea, vomiting, headache and constipation. Patient reported that she has not been able to have a bowel movement in 1 week and has been on laxatives. Patient denies any other signs or symptoms. Symptoms are aggravated or relieved by nothing. Patient decided to present to the hospital due to worsening symptoms. Allergies metoclopramide HCl [From Reglan] Allergy (Mild, Verified 01/05/23 08:48) Hives/Rash ropinirole HCl [From Requip] Allergy (Mild, Verified 01/05/23 08:48) Nausea/Vomiting Home Medications: Tizanidine [Zanaflex*] 4 mg PO BEDTIME PRN PRN 07/21/20 Diclofenac Sodium 50 mg PO Q8H 11/17/22 LORazepam [Ativan*] 1 mg PO BID PRN 11/17/22 Venlafaxine HCl [Effexor Xr] 225 mg PO DAILY 11/17/22 Levothyroxine [Synthroid*] 50 mcg PO [id number] 01/04/23 Pantoprazole [Protonix Tab*] 40 mg PO BEDTIME 01/04/23 Propranolol HCl 20 mg PO BID 01/04/23 hydrOXYzine HCL [Atarax] 50 mg PO BIDP PRN 01/04/23 Cholecalciferol (Vitamin D3) [Vitamin D3] 5,000 unit PO DAILY 01/05/23 Hydrocodone 10/APAP 325 [[place] 10/325*] 1 tab PO Q6HP PRN 04/13/23 Meclizine HCl [Antivert] 25 mg PO Q8HP PRN 04/13/23 Docusate [Colace Cap*] 100 mg PO BID 04/24/23 Mecobalamin [B12 Active] 3,000 mcg PO DAILY 04/24/23 Ped Multivit 43/Iron Fumarate [Flintstones Complete Chew Tab] 1 tab PO DAILY 04/24/23 Gabapentin 300 mg PO TID #90 tab 04/26/23 Ziprasidone [Geodon*] 60 mg PO BEDTIME #90 cap 04/26/23 Polyethylene Glycol 3350 [Miralax] 17 gm PO DAILY #30 packet 07/22/23 Lactulose 30 mg PO BID 08/23/23 Zolpidem Tartrate [Ambien] 10 mg PO BEDTIME PRN 08/23/23 - Past Medical/Surgical History Diabetic: No -: Intestinal blockage -: Bipolar disorder, , depression -: Fibromyalgia -: Hypertension -: Migraine headache -: IBS -: Anxiety disorder -: Insomnia -: bulging disc -: 2 csec -: hyst -: appy -: anderson -: gastric bypass -: L fractured wrist w/ plates and screws - Family History Mother -: Heart disease, Cancer Notes: cardiac stent. lung cancer - Social History Smoking Status: Never smoker Alcohol use: No CD- Drugs: No Caffeine use: Yes Place of Residence: Home Review of Systems General: Unremarkable Eyes: Unremarkable ENT: Unremarkable Respiratory: Unremarkable Cardiovascular: Unremarkable Gastrointestinal: Nausea, Vomiting, Abdominal Pain, Constipation Genitourinary: Unremarkable Musculoskeletal: Unremarkable Integumentary: Unremarkable Neurological: Other (CORADO) Lymphatics: Unremarkable Physical Examination - Physical Exam General: Alert, In no apparent distress, Oriented x3 HEENT: Atraumatic, PERRLA, Mucous membr. moist/pink, EOMI, Sclerae nonicteric Neck: Supple, 2+ carotid pulse no bruit, No LAD, Without JVD or thyroid abnormality Respiratory: Clear to auscultation bilaterally, Normal air movement Cardiovascular: No edema, Regular rate/rhythm, Normal S1 S2 Capillary refill: <2 Seconds Gastrointestinal: Normal bowel sounds, Tenderness Musculoskeletal: No clubbing, No swelling, No tenderness Integumentary: No rashes, No significant lesion, No tenderness/swelling Neurological: Normal speech, Normal tone, Normal affect Lymphatics: No axilla or inguinal lymphadenopathy - Studies Laboratory Data (last 24 hrs) 08/23/23 08/23/23 12:19 12:19 WBC 3.80 L Hgb 13.6 Hct 41.1 Plt Count 352 Sodium 142 Potassium 2.7 L BUN 8 Creatinine 0.87 Glucose 86 Total Bilirubin 0.5 AST 16 ALT 38 Alkaline Phosphatase 186 H Lipase 14 Assessment and Plan - Plan --Abdominal pain. Likely secondary to constipation. CT abdomen indicates "Previously noted colonic wall thickening has mostly resolved. Moderate colonic stool noted. No bowel obstruction". Patient placed on laxatives. Will manage pain with current medication regimen. --Nausea and vomiting. Antiemetics ordered. -- Headache\\history of migraine headache. Tylenol as needed. -- Fibromyalgia\\chronic back pain. Will manage pain with current pain medication regimen. --Hypokalemia. Replete as needed. --RAKEL. Likely related to fluid losses. Continue IV hydration. Will continue to monitor renal functions. -- GERD. Continue Protonix. --Hypothyroidism. Continue Synthroid. -- Anxiety disorder\\bipolar disorder\\ Insomnia. Continue home medications. --Hypertension. Poorly controlled. Continue home medication and hydralazine as needed. -- DVT prophylaxis with Lovenox subQ Discharge Plan: Home Plan to discharge in: 72 Hours - Advance Directives Does patient have a Living Will: No Does patient have a Durable POA for Healthcare: No - Code Status/Comfort Care Code Status Assessed: Yes Physician Review: Patient Assessed, Agree with Above Assessment and Plan Critical Care: No
[2023-08-23] MEDS ORDERED: MAGNESIUM CITRATE 300 ML BOT PO SCH (15:00)
[2023-08-23] MEDS: NA CHLORIDE 0.9% 1,000 ML IV SCH (17:10)
[2023-08-23] MEDS: DOCUSATE NA 100 MG CAP PO SCH ×2 (17:10→20:55)
[2023-08-23] MEDS: PANTOPRAZOLE 40 MG INJ IVP SCH (17:10)
[2023-08-23] MEDS: ENOXAPARIN 40 MG/0.4 ML SQ SCH (17:10)
[2023-08-23] MEDS: ONDANSETRON 4 MG/2 ML VIAL IV PRN (17:12)
[2023-08-23 17:30] VITALS: BMI 21.9
[2023-08-23] MEDS: MORPHINE 4 MG/ML SYR IV PRN ×2 (17:57→22:17)
[2023-08-23] MEDS ORDERED: INFLUENZA VACCINE (for 6+ mo) 0.5 ML DOSE IMVAC ONE (18:00)
[2023-08-23 20:52] LABS: Potassium 3.2 mEq/L (3.5-5.1)
[2023-08-23 21:09] LABS: Magnesium 2.6 mg/dL (1.6-2.4); Thyroid Stimulating Hormone 3.57 uIU/mL (0.358-3.740)
[2023-08-23] MEDS ORDERED: DIPHENHYDRAMINE 25 MG TAB/CAP PO ONE (23:18)
[2023-08-23] MEDS: HYDROCODONE/APAP 5/325 MG TAB PO PRN (23:59)
[2023-08-24] MEDS: ZOLPIDEM TARTRATE 10 MG TABLET PO PRN ×2 (01:54→23:23)
[2023-08-24] MEDS: NA CHLORIDE 0.9% 1,000 ML IV SCH ×2 (03:19→15:56)
[2023-08-24 04:34] LABS: Absolute Lymphocytes (CBC) 1.5 K/uL (0.7-4.9); Hematocrit 33.5 % (36.0-45.0); Lymphocytes % 15.4 % (15.3-44.8); MCV 91.3 fL (80-100); MPV 8.3 fL (7.6-11.3); Platelets 299 thou/uL (152-406); RBC Red Blood Cell Count 3.67 M/uL (3.86-4.86)
[2023-08-24 05:02] LABS: Potassium 2.4 mEq/L (3.5-5.1)
[2023-08-24] MEDS ORDERED: TIZANIDINE 4 MG TABLET PO PRN (05:56)
[2023-08-24] MEDS ORDERED: MECLIZINE HCL 12.5 MG TAB PO PRN (05:56)
[2023-08-24] MEDS ORDERED: hydrOXYzine HCL 25 MG TAB PO PRN (05:56)
[2023-08-24] MEDS ORDERED: LORAZEPAM 0.5 MG TABLET PO PRN (05:56)
[2023-08-24] MEDS: KCL 20 MEQ/100 mL IVPB 20 MEQ/100 ML BAG IV SCH ×3 (05:57→10:18)
[2023-08-24] MEDS: HYDROCODONE/APAP 5/325 MG TAB PO PRN ×2 (05:57→17:59)
[2023-08-24] MEDS ORDERED: HYDRALAZINE HCL 20 MG/ML VIAL IV PRN (05:59)
[2023-08-24] MEDS: LEVOTHYROXINE SOD 0.05 MG TABLET PO SCH (06:31)
[2023-08-24] MEDS: FLINTSTONES COMPLETE PO SCH (09:00)
[2023-08-24] MEDS: VITAMIN D 5,000 UNIT CAP PO SCH (10:17)
[2023-08-24] MEDS: PROPRANOLOL HCL 10 MG TAB PO SCH ×2 (10:17→19:55)
[2023-08-24] MEDS: VENLAFAXINE HCL XR 75 MG CAP PO SCH (10:18)
[2023-08-24] MEDS: GABAPENTIN 300 MG CAP PO SCH ×3 (10:18→19:55)
[2023-08-24] MEDS: CYANOCOBALAMIN 1,000 MCG TAB PO SCH (10:18)
[2023-08-24] MEDS: ASPIRIN 81 MG CHEWABLE TABLET PO SCH (10:18)
[2023-08-24] MEDS: LACTULOSE 20 GM/30 ML UCUP PO SCH ×2 (10:19→19:55)
[2023-08-24] MEDS: ENOXAPARIN 40 MG/0.4 ML SQ SCH (10:24)
[2023-08-24] MEDS: PANTOPRAZOLE 40 MG INJ IVP SCH (10:25)
[2023-08-24] MEDS: DOCUSATE NA 100 MG CAP PO SCH ×2 (10:25→19:55)
[2023-08-24] MEDS ORDERED: INFLUENZA VACCINE (for 6+ mo) 0.5 ML DOSE IMVAC ONE (12:00)
[2023-08-24] MEDS: ZIPRASIDONE 20 MG CAP PO SCH (20:31)
[2023-08-24] MEDS ORDERED: POTASSIUM CL SA 10 MEQ TAB PO ONE (22:00)
--- NOTE | 2023-08-24 23:14 | P.PN ---
Subjective Date of Service: 08/24/23 Chief Complaint: N\\V\\Abd pain Subjective: No new changes Patient continues to complain of abdominal pain. Patient indicated that she has not had a BM. Continue Supportive care. Review of Systems General: Unremarkable Eyes: Unremarkable ENT: Unremarkable Respiratory: Unremarkable Cardiovascular: Unremarkable Gastrointestinal: Abdominal Pain, Constipation Genitourinary: Unremarkable Musculoskeletal: Unremarkable Integumentary: Unremarkable Neurological: Unremarkable Lymphatics: Unremarkable Physical Examination - Vital Signs Temperature: 98.3 F Blood Pressure: 127/69 Pulse: 69 Respirations: 18 Pulse Ox (%): 97 - Physical Exam General: Alert, In no apparent distress, Oriented x3 HEENT: Atraumatic, PERRLA, EOMI Neck: Supple, JVD not distended Respiratory: Clear to auscultation bilaterally, Normal air movement Cardiovascular: No edema, Regular rate/rhythm, Normal S1 S2 Capillary refill: <2 Seconds Gastrointestinal: Normal bowel sounds, Tenderness Musculoskeletal: No clubbing, No swelling, No tenderness Integumentary: No rashes Neurological: Normal speech, Normal tone, Normal affect Lymphatics: No axilla or inguinal lymphadenopathy Assessment And Plan - Plan Interval Hx 08/24/23 Patient seen at bedside. Patient continues to complain of abdominal pain. Continue current pain medication regimen. Patient on potassium replacement supplement. Potassium consistently remains low despite replacement. Senior Analyst Programmer consulted for further management. Patient's laxative regimen changed due to persistent constipation. Continue supportive care. --Abdominal pain. Likely secondary to constipation. CT abdomen indicates "Previously noted colonic wall thickening has mostly resolved. Moderate colonic stool noted. No bowel obstruction". Patient placed on laxatives. Will manage pain with current medication regimen. --Nausea and vomiting. Antiemetics ordered. -- Headache\\history of migraine headache. Tylenol as needed. -- Fibromyalgia\\chronic back pain. Will manage pain with current pain medication regimen. --Hypokalemia. Replete as needed. --RAKEL. Likely related to fluid losses. Continue IV hydration. Will continue to monitor renal functions. -- GERD. Continue Protonix. --Hypothyroidism. Continue Synthroid. -- Anxiety disorder\\bipolar disorder\\ Insomnia. Continue home medications. --Hypertension. Poorly controlled. Continue home medication and hydralazine as needed. -- DVT prophylaxis with Lovenox subQ Discharge Plan: Home Plan to discharge in: Greater than 2 days - Code Status/Comfort Care Code Status Assessed: Yes Physician Review: Patient Assessed, Agree with Above Assessment and Plan Critical Care: No
[2023-08-25] MEDS ORDERED: LACTULOSE 20 GM/30 ML UCUP PO SCH (01:00)
[2023-08-25 02:37] LABS: Absolute Lymphocytes (CBC) 2.7 K/uL (0.7-4.9); Hematocrit 35.9 % (36.0-45.0); Lymphocytes % 51.5 % (15.3-44.8); MCV 92.7 fL (80-100); MPV 8.6 fL (7.6-11.3); Platelets 270 thou/uL (152-406); RBC Red Blood Cell Count 3.87 M/uL (3.86-4.86)
[2023-08-25 02:56] LABS: Bicarbonate 19 mEq/L (21-32); Glomerular Filtration Rate 101 ml/min (=/>90); Glucose Level 62 mg/dL (74-106); Potassium 3.2 mEq/L (3.5-5.1); Sodium Level 144 mEq/L (136-145)
[2023-08-25 03:15] LABS: BUN Blood Urea Nitrogen < 3 mg/dL (7-18)
[2023-08-25] MEDS: NA CHLORIDE 0.9% 1,000 ML IV SCH ×2 (03:30→07:00)
[2023-08-25] MEDS: HYDROCODONE/APAP 5/325 MG TAB PO PRN (04:14)
[2023-08-25] MEDS: LEVOTHYROXINE SOD 0.05 MG TABLET PO SCH (05:44)
[2023-08-25] MEDS ORDERED: POTASSIUM CL SA 10 MEQ TAB PO ONE (06:00)
[2023-08-25] MEDS: BISACODYL 10 MG RECTAL SUPP PR SCH (08:34)
[2023-08-25] MEDS: ASPIRIN 81 MG CHEWABLE TABLET PO SCH (08:34)
[2023-08-25] MEDS: VENLAFAXINE HCL XR 75 MG CAP PO SCH (08:34)
[2023-08-25] MEDS: LACTULOSE 20 GM/30 ML UCUP PO SCH ×3 (08:35→21:00)
[2023-08-25] MEDS: PROPRANOLOL HCL 10 MG TAB PO SCH ×2 (08:35→21:03)
[2023-08-25] MEDS: FLINTSTONES COMPLETE PO SCH (08:36)
[2023-08-25] MEDS: GABAPENTIN 300 MG CAP PO SCH ×3 (08:36→21:02)
[2023-08-25] MEDS: CYANOCOBALAMIN 1,000 MCG TAB PO SCH (08:36)
[2023-08-25] MEDS: VITAMIN D 5,000 UNIT CAP PO SCH (08:36)
[2023-08-25] MEDS: DOCUSATE NA 100 MG CAP PO SCH ×2 (08:48→21:02)
[2023-08-25] MEDS: PANTOPRAZOLE 40 MG INJ IVP SCH (08:48)
[2023-08-25] MEDS: ENOXAPARIN 40 MG/0.4 ML SQ SCH (08:48)
--- NOTE | 2023-08-25 13:55 | P.CNS ---
Date of Consult: 08/25/23 Reason for Consult: Recurrent, severe hypokalemia. Metab acidosis Requesting Physician: Dax Mitchell Chief Complaint: N\V\Abd pain History of Present Illness: Patient is a 57-year-old female with a past medical history significant for migraine headache, fibromyalgia per reports, chronic back pain, chronic NSAIDs use who presented with complaints of LE pain and weakness, abd pain and constipation. She also has a hx of recurrent nausea, dry heaves and weight loss she reports. She has had recurrent severe hypokalemia. She does not take K supplements at home. No diuretics listed among home meds. She denies muscle cramps or spasms but would not tolerate prolonged standing. Allergies metoclopramide HCl [From Reglan] Allergy (Mild, Verified 01/05/23 08:48) Hives/Rash ropinirole HCl [From Requip] Allergy (Mild, Verified 01/05/23 08:48) Nausea/Vomiting Home Medications: Tizanidine [Zanaflex*] 4 mg PO BEDTIME PRN PRN 07/21/20 Diclofenac Sodium 50 mg PO Q8H 11/17/22 LORazepam [Ativan*] 1 mg PO BID PRN 11/17/22 Venlafaxine HCl [Effexor Xr] 225 mg PO DAILY 11/17/22 Levothyroxine [Synthroid*] 50 mcg PO [id number] 01/04/23 Pantoprazole [Protonix Tab*] 40 mg PO BEDTIME 01/04/23 Propranolol HCl 20 mg PO BID 01/04/23 hydrOXYzine HCL [Atarax] 50 mg PO BIDP PRN 01/04/23 Cholecalciferol (Vitamin D3) [Vitamin D3] 5,000 unit PO DAILY 01/05/23 Hydrocodone 10/APAP 325 [[place] 10/325*] 1 tab PO Q6HP PRN 04/13/23 Meclizine HCl [Antivert] 25 mg PO Q8HP PRN 04/13/23 Docusate [Colace Cap*] 100 mg PO BID 04/24/23 Mecobalamin [B12 Active] 3,000 mcg PO DAILY 04/24/23 Ped Multivit 43/Iron Fumarate [Flintstones Complete Chew Tab] 1 tab PO DAILY 04/24/23 Gabapentin 300 mg PO TID #90 tab 04/26/23 Ziprasidone [Geodon*] 60 mg PO BEDTIME #90 cap 04/26/23 Polyethylene Glycol 3350 [Miralax] 17 gm PO DAILY #30 packet 07/22/23 Lactulose 20 gm PO BID 08/23/23 Zolpidem Tartrate [Ambien] 10 mg PO BEDTIME PRN 08/23/23 - Past Medical/Surgical History Diabetic: No -: Intestinal blockage -: Bipolar disorder, , depression -: Fibromyalgia -: Hypertension -: Migraine headache -: IBS -: Anxiety disorder -: Insomnia -: bulging disc -: 2 csec -: hyst -: appy -: anderson -: gastric bypass -: L fractured wrist w/ plates and screws - Family History Mother Medical History: Heart disease, Cancer Notes: cardiac stent. lung cancer - Social History Smoking Status: Unknown if ever smoked Alcohol use: No CD- Drugs: No Caffeine use: Yes Place of Residence: Home Review of Systems General: Weakness Eyes: Unremarkable ENT: Unremarkable Respiratory: Unremarkable Cardiovascular: Unremarkable Gastrointestinal: Nausea, Vomiting, Abdominal Pain Genitourinary: Unremarkable Musculoskeletal: Leg Pain Integumentary: Unremarkable Neurological: As per HPI Physical Examination Temp Pulse Resp BP Pulse Ox 97.2 F 74 16 117/67 98 08/25/23 11:42 08/25/23 11:42 08/25/23 11:42 08/25/23 11:42 08/25/23 11:42 General: Alert, In no apparent distress, Cooperative HEENT: Atraumatic, Normocephalic Neck: Supple Respiratory: Clear to auscultation bilaterally, Normal air movement Cardiovascular: Regular rate/rhythm, Normal S1 S2 Gastrointestinal: Soft and benign, Non-distended, No tenderness, No guarding Musculoskeletal: No swelling, No contractures Integumentary: No rashes, No tenderness/swelling Neurological: Normal speech, Normal tone Laboratory Data (last 24 hrs) 08/25/23 08/25/23 08/24/23 01:35 01:35 20:18 WBC 5.20 Hgb 11.6 L Hct 35.9 L Plt Count 270 Sodium 144 Potassium 3.2 L 3.1 L BUN < 3 L Creatinine 0.66 Glucose 62 L Conclusions/Impression: A/P) 1. Recurrent, severe hypokalemia that is multifactorial but in the setting of hyperchloremic metab acidosis and alkaline urine pH > 5.5 on admission raise concern for possible distal Type 1 RTA. Pt has long taken NSAIDs and there are rare reports of NSAIDs associated RTA. 2. K level now > 3.5 mmol/L post repletion, Mg level > 2.2. Will also check TTKG to assess for on going renal K wasting. 3. Persistent bicarb deficit, but pt also on hyperchloremic NS IVF. Will d/c NS IVF. Will check urine AG. Will place on sodium bicarbonate 4. No reports of kidney stones on CT. 5. Recurrent N/V/abd pain -management per IM. Some (chronic) pancreatic atrophy noted on CT Jose Lindo MD, DAVID
[2023-08-25] MEDS: SODIUM BICARB 325 MG TAB PO SCH ×2 (15:19→21:02)
--- NOTE | 2023-08-25 15:24 | P.PN ---
Subjective Date of Service: 08/25/23 Chief Complaint: N\\V\\Abd pain Subjective: Improving Patient reports Improvement in abdominal pain. Continue Supportive care. Review of Systems General: Other (Fatigue), Unremarkable Eyes: Unremarkable ENT: Unremarkable Respiratory: Unremarkable Cardiovascular: Unremarkable Gastrointestinal: Abdominal Pain Genitourinary: Unremarkable Musculoskeletal: Unremarkable Integumentary: Unremarkable Neurological: Unremarkable Lymphatics: Unremarkable Physical Examination - Vital Signs Temperature: 97.2 F Blood Pressure: 117/67 Pulse: 74 Respirations: 16 Pulse Ox (%): 98 - Physical Exam General: Alert, In no apparent distress, Cooperative HEENT: Atraumatic, PERRLA, EOMI Neck: Supple, JVD not distended Respiratory: Clear to auscultation bilaterally, Normal air movement Cardiovascular: No edema, Regular rate/rhythm, Normal S1 S2 Capillary refill: <2 Seconds Gastrointestinal: Normal bowel sounds, Tenderness Musculoskeletal: No clubbing, No tenderness Integumentary: No rashes Neurological: Normal speech, Normal tone, Normal affect Lymphatics: No axilla or inguinal lymphadenopathy - Studies Laboratory Data (last 24 hrs) 08/25/23 08/25/23 08/24/23 01:35 01:35 20:18 WBC 5.20 Hgb 11.6 L Hct 35.9 L Plt Count 270 Sodium 144 Potassium 3.2 L 3.1 L BUN < 3 L Creatinine 0.66 Glucose 62 L Assessment And Plan - Plan Interval Hx 08/25/23 Patient seen at bedside. Patient reports improvement in abdominal pain. Patient reported that she had a bowel movement yesterday and this morning. We will see scale down on her laxative regimen. Accounting Policy Consultant managing hypokalemia. Continue supportive care. 08/24/23 Patient seen at bedside. Patient continues to complain of abdominal pain. Continue current pain medication regimen. Patient on potassium replacement supplement. Potassium consistently remains low despite replacement. Accounting Policy Consultant consulted for further management. Patient's laxative regimen changed due to persistent constipation. Continue supportive care. --Abdominal pain. Likely secondary to constipation. CT abdomen indicates "Previously noted colonic wall thickening has mostly resolved. Moderate colonic stool noted. No bowel obstruction". Patient placed on laxatives. Will manage pain with current medication regimen. --Nausea and vomiting. Antiemetics ordered. -- Headache\\history of migraine headache. Tylenol as needed. -- Fibromyalgia\\chronic back pain. Will manage pain with current pain medication regimen. --Hypokalemia. Replete as needed. --RAKEL. Likely related to fluid losses. Continue IV hydration. Will continue to monitor renal functions. -- GERD. Continue Protonix. --Hypothyroidism. Continue Synthroid. -- Anxiety disorder\\bipolar disorder\\ Insomnia. Continue home medications. --Hypertension. Poorly controlled. Continue home medication and hydralazine as needed. -- DVT prophylaxis with Lovenox subQ Discharge Plan: Home Plan to discharge in: 48 Hours Physician Review: Patient Assessed, Agree with Above Assessment and Plan Critical Care: No
[2023-08-25] MEDS: ZIPRASIDONE 20 MG CAP PO SCH (21:02)
[2023-08-25] MEDS: ZOLPIDEM TARTRATE 10 MG TABLET PO PRN (23:19)
[2023-08-26] MEDS: LEVOTHYROXINE SOD 0.05 MG TABLET PO SCH (06:43)
[2023-08-26] MEDS: DOCUSATE NA 100 MG CAP PO SCH ×2 (07:14→20:57)
[2023-08-26] MEDS: BISACODYL 10 MG RECTAL SUPP PR SCH (07:15)
[2023-08-26] MEDS: CYANOCOBALAMIN 1,000 MCG TAB PO SCH (07:50)
[2023-08-26] MEDS: VITAMIN D 5,000 UNIT CAP PO SCH (07:50)
[2023-08-26] MEDS: SODIUM BICARB 325 MG TAB PO SCH ×3 (07:50→20:58)
[2023-08-26] MEDS: ENOXAPARIN 40 MG/0.4 ML SQ SCH (07:50)
[2023-08-26] MEDS: PROPRANOLOL HCL 10 MG TAB PO SCH ×2 (07:50→20:57)
[2023-08-26] MEDS: ASPIRIN 81 MG CHEWABLE TABLET PO SCH (07:51)
[2023-08-26] MEDS: GABAPENTIN 300 MG CAP PO SCH ×3 (07:51→20:58)
[2023-08-26] MEDS: LACTULOSE 20 GM/30 ML UCUP PO SCH (07:51)
[2023-08-26] MEDS: PANTOPRAZOLE 40 MG INJ IVP SCH (07:51)
[2023-08-26] MEDS: VENLAFAXINE HCL XR 75 MG CAP PO SCH (07:51)
[2023-08-26] MEDS: POTASSIUM CL SA 10 MEQ TAB PO SCH (07:52)
[2023-08-26] MEDS: FLINTSTONES COMPLETE PO SCH (09:00)
[2023-08-26] MEDS: HYDROCODONE/APAP 5/325 MG TAB PO PRN (10:42)
[2023-08-26] MEDS: ONDANSETRON 4 MG/2 ML VIAL IV PRN (10:43)
[2023-08-26 11:26] LABS: Bicarbonate 21 mEq/L (21-32); Glomerular Filtration Rate 98 ml/min (=/>90); Glucose Level 192 mg/dL (74-106); Potassium 2.9 mEq/L (3.5-5.1); Sodium Level 142 mEq/L (136-145)
[2023-08-26 11:27] LABS: BUN Blood Urea Nitrogen < 3 mg/dL (7-18)
[2023-08-26] MEDS ORDERED: POTASSIUM 25 MEQ EFFERV TAB PO ONE (11:29)
--- NOTE | 2023-08-26 14:44 | P.PN ---
Nephrology note (S) K level back down this AM to < 3 mmol/L but pt reports 4 BM yesterday after Lactulose given for constipation. Urine studies collected yesterday and reviewed (O) Vitals reviewed in the EMR General: Alert, In no apparent distress, Cooperative HEENT: Atraumatic, Normocephalic Neck: Supple Respiratory: Clear to auscultation bilaterally, Normal air movement Cardiovascular: Regular rate/rhythm, Normal S1 S2 Gastrointestinal: Soft and benign, Non-distended, No tenderness, No guarding Musculoskeletal: No sig swelling, No contractures Integumentary: No rashes, No tenderness/swelling Neurological: Normal speech, Normal tone Laboratory Data (last 24 hrs) Reviewed in the EMR Conclusions/Impression: A/P) 1. Recurrent, severe hypokalemia that is multifactorial but in the setting of hyperchloremic metab acidosis and alkaline urine pH > 5.5 on admission raised initially some concern for possible distal Type 1 RTA. Pt has long taken NSAIDs and there are rare reports of NSAIDs associated RTA. However, urine AG was negative although multiple BM yesterday after Lactulose may have skewed results so may need to repeat as OP. Also unable to check urine osmolal gap as urine urea not avail to order. 2. K level back down this AM after likely some K loss in stool however did check TTKG to assess for on going renal K wasting and while random UK is < 40 it is > 20 and TTKG was 6-7 which is > 3 and does support an element of renal wasting. Will cont KCL supplementation and will consider starting a K sparing agent 3. Persistent mild to mod bicarb deficit, but pt was also on hyperchloremic NS IVF. Did d/c NS IVF. Did place on sodium bicarbonate 4. No reports of kidney stones on CT. 5. Recurrent N/V/abd pain -management per IM. Some (chronic) pancreatic atrophy noted on CT Jose Lindo MD, DAVID
--- NOTE | 2023-08-26 15:15 | P.PN ---
Subjective Date of Service: 08/26/23 Chief Complaint: N\\V\\Abd pain Patient reports Improvement in abdominal pain. Patient tolerating diet. Continue Supportive care. Review of Systems General: Weakness Eyes: Unremarkable ENT: Unremarkable Respiratory: Unremarkable Cardiovascular: Unremarkable Gastrointestinal: Abdominal Pain Genitourinary: Unremarkable Musculoskeletal: Unremarkable Integumentary: Unremarkable Neurological: Unremarkable Lymphatics: Unremarkable Physical Examination - Vital Signs Temperature: 97.9 F Blood Pressure: 116/75 Pulse: 79 Respirations: 16 Pulse Ox (%): 100 - Physical Exam General: Alert, In no apparent distress, Oriented x3 HEENT: Atraumatic, PERRLA, EOMI Neck: Supple, JVD not distended Respiratory: Clear to auscultation bilaterally, Normal air movement Cardiovascular: No edema, Regular rate/rhythm, Normal S1 S2 Capillary refill: <2 Seconds Gastrointestinal: Normal bowel sounds, Tenderness Musculoskeletal: No clubbing, No tenderness Integumentary: No rashes Neurological: Normal speech, Normal tone, Normal affect Lymphatics: No axilla or inguinal lymphadenopathy Assessment And Plan - Plan Interval Hx 08/26/23 Patient seen with family at bedside. Patient tolerating diet. Will continue to advance diet as tolerated.. Potassium level dropped. Patient had 4 BMs yesterday. 2 Laxatives DC'd. Nephrology managing potassium levels. Continue supportive care. 08/25/23 Patient seen at bedside. Patient reports improvement in abdominal pain. Patient reported that she had a bowel movement yesterday and this morning. We will see scale down on her laxative regimen. Associate Technician managing hypokalemia. Continue supportive care. 08/24/23 Patient seen at bedside. Patient continues to complain of abdominal pain. Continue current pain medication regimen. Patient on potassium replacement supplement. Potassium consistently remains low despite replacement. Associate Technician consulted for further management. Patient's laxative regimen changed due to persistent constipation. Continue supportive care. --Abdominal pain. Likely secondary to constipation. CT abdomen indicates "Pre viously noted colonic wall thickening has mostly resolved. Moderate colonic stool noted. No bowel obstruction". Patient placed on laxatives. Will manage pain with current medication regimen. --Nausea and vomiting. Antiemetics ordered. -- Headache\\history of migraine headache. Tylenol as needed. -- Fibromyalgia\\chronic back pain. Will manage pain with current pain medication regimen. --Hypokalemia. Replete as needed. --RAKEL. Likely related to fluid losses. Continue IV hydration. Will continue to monitor renal functions. -- GERD. Continue Protonix. --Hypothyroidism. Continue Synthroid. -- Anxiety disorder\\bipolar disorder\\ Insomnia. Continue home medications. --Hypertension. Poorly controlled. Continue home medication and hydralazine as needed. -- DVT prophylaxis with Lovenox subQ Physician Review: Patient Assessed, Agree with Above Assessment and Plan
[2023-08-26] MEDS: ZIPRASIDONE 20 MG CAP PO SCH (20:57)
[2023-08-26] MEDS: ZOLPIDEM TARTRATE 10 MG TABLET PO PRN (20:59)
[2023-08-26] MEDS ORDERED: POTASSIUM CL SA 10 MEQ TAB PO ONE (21:00)
[2023-08-27 00:15] VITALS: O2SAT 98
[2023-08-27 04:15] LABS: Absolute Lymphocytes (CBC) 3.4 K/uL (0.7-4.9); Hematocrit 39.4 % (36.0-45.0); Lymphocytes % 59.7 % (15.3-44.8); MCV 91.9 fL (80-100); MPV 8.8 fL (7.6-11.3); Platelets 354 thou/uL (152-406); RBC Red Blood Cell Count 4.29 M/uL (3.86-4.86)
[2023-08-27 04:28] LABS: Potassium 3.1 mEq/L (3.5-5.1)
[2023-08-27] MEDS: MORPHINE 4 MG/ML SYR IV PRN (05:18)
[2023-08-27] MEDS: ONDANSETRON 4 MG/2 ML VIAL IV PRN (05:21)
[2023-08-27] MEDS: LEVOTHYROXINE SOD 0.05 MG TABLET PO SCH (06:16)
[2023-08-27] MEDS: PANTOPRAZOLE 40 MG INJ IVP SCH (08:54)
[2023-08-27] MEDS: CYANOCOBALAMIN 1,000 MCG TAB PO SCH (08:54)
[2023-08-27] MEDS: ASPIRIN 81 MG CHEWABLE TABLET PO SCH (08:54)
[2023-08-27] MEDS: VITAMIN D 5,000 UNIT CAP PO SCH (08:54)
[2023-08-27] MEDS: SODIUM BICARB 325 MG TAB PO SCH (08:54)
[2023-08-27] MEDS: ENOXAPARIN 40 MG/0.4 ML SQ SCH (08:54)
[2023-08-27] MEDS: VENLAFAXINE HCL XR 75 MG CAP PO SCH (08:55)
[2023-08-27] MEDS: POTASSIUM CL SA 10 MEQ TAB PO SCH (08:55)
[2023-08-27] MEDS: GABAPENTIN 300 MG CAP PO SCH ×2 (08:55→13:24)
[2023-08-27] MEDS: PROPRANOLOL HCL 10 MG TAB PO SCH (08:55)
[2023-08-27] MEDS: DOCUSATE NA 100 MG CAP PO SCH (08:56)
[2023-08-27] MEDS ORDERED: POTASSIUM CL SA 10 MEQ TAB PO ONE (09:00)
[2023-08-27] MEDS: FLINTSTONES COMPLETE PO SCH (09:00)
[2023-08-27] MEDS ORDERED: AMILORIDE HCL 5 MG TABLET PO SCH (12:30)
--- NOTE | 2023-08-27 13:31 | P.PN ---
Nephrology note (S) K level back down recurrently but pt denies any N/V/D over the past 24h, no cramps or spasms (O) Vitals reviewed in the EMR General: Alert, In no apparent distress, Cooperative HEENT: Atraumatic, Normocephalic Neck: Supple Respiratory: Clear to auscultation bilaterally, Normal air movement Cardiovascular: Regular rate/rhythm, Normal S1 S2 Gastrointestinal: Soft and benign, Non-distended, No tenderness, No guarding Musculoskeletal: No sig swelling, No contractures Integumentary: No rashes, No tenderness/swelling Neurological: Normal speech, Normal tone Laboratory Data (last 24 hrs) Reviewed in the EMR Conclusions/Impression: A/P) 1. Recurrent, severe hypokalemia that is multifactorial but in the setting of hyperchloremic metab acidosis and alkaline urine pH > 5.5 on admission raised initially some concern for possible distal Type 1 RTA. Pt has long taken NSAIDs and there are rare reports of NSAIDs associated RTA. However, urine AG was negative although multiple BM after Lactulose may have skewed results so may need to repeat as OP. Also unable to check urine osmolal gap as urine urea not avail to order. 2. K level back down yesterday AM after likely some K loss in stool however did check TTKG to assess for on going renal K wasting and while random UK is < 40 it is > 20 and TTKG was 6-7 which was > 3 and does support an element of renal wasting. Will cont KCL supplementation and will start a K sparing agent such as low dose Amiloride 2.5 mg qd 3. Persistent mild to mod bicarb deficit initially, but pt was also on hyperchloremic NS IVF. Did d/c NS IVF. Deficit now resolved and Na level > ULN, so will lower dose to 650 qd. Will encourage increased fluid intake. 4. No reports of kidney stones on CT. 5. Recurrent N/V/abd pain -management per IM. Some (chronic) pancreatic atrophy noted on CT Jose Lindo MD, DAVID
--- NOTE | 2023-08-27 15:24 | P.DS ---
Admission Date: 08/25/23 Discharge Date: 08/27/23 Disposition: ROUTINE DISCHARGE Discharge Condition: GOOD Reason for Admission: N\V\Abd pain Brief History of Present Illness: Patient is a 57-year-old female with a past medical history significant for hypertension, migraine headache, fibromyalgia, chronic back pain, bipolar disorder who presents with complaint of generalized abdominal pain onset 5 days ago. Patient rated pain as 10/10 in severity, described as sharp\throbbing in quality. Patient reported associated signs and symptoms of nausea, vomiting, headache and constipation. Patient reported that she has not been able to have a bowel movement in 1 week and has been on laxatives. Patient denies any other signs or symptoms. Symptoms are aggravated or relieved by nothing. Patient decided to present to the hospital due to worsening symptoms. Vital Signs/Physical Exam: Temp Pulse Resp BP Pulse Ox 98.0 F 63 14 128/74 99 08/27/23 11:57 08/27/23 11:57 08/27/23 11:57 08/27/23 11:57 08/27/23 11:57 Laboratory Data at Discharge: WBC 5.60 thou/uL (4.3-10.9) 08/27/23 03:51 Hgb 13.0 g/dL (12.0-15.0) 08/27/23 03:51 Hct 39.4 % (36.0-45.0) 08/27/23 03:51 Plt Count 354 thou/uL (152-406) 08/27/23 03:51 Sodium 146 mEq/L (136-145) H 08/27/23 03:51 Potassium Cancelled 08/27/23 15:00 BUN 7 mg/dL (7-18) 08/27/23 03:51 Creatinine 0.66 mg/dL (0.55-1.02) 08/27/23 03:51 Glucose 90 mg/dL (74-106) 08/27/23 03:51 Phosphorus 3.0 mg/dL (2.5-4.9) 08/23/23 20:20 Magnesium 2.6 mg/dL (1.6-2.4) H 08/23/23 20:20 Total Bilirubin 0.5 mg/dL (0.2-1.0) 08/23/23 12:19 AST 16 U/L (15-37) 08/23/23 12:19 ALT 38 U/L (13-56) 08/23/23 12:19 Alkaline Phosphatase 186 U/L (45-117) H 08/23/23 12:19 Triglycerides 81 mg/dL (<150) 08/24/23 03:04 Cholesterol 151 mg/dL (<200) 08/24/23 03:04 HDL Cholesterol 63 mg/dL (40-60) H 08/24/23 03:04 Cholesterol/HDL Ratio 2.40 08/24/23 03:04 Lipase 14 U/L (13-75) 08/23/23 12:19 Home Medications: Tizanidine [Zanaflex*] 4 mg PO BEDTIME PRN PRN 07/21/20 LORazepam [Ativan*] 1 mg PO BID PRN 11/17/22 Venlafaxine HCl [Effexor Xr] 225 mg PO DAILY 11/17/22 Levothyroxine [Synthroid*] 50 mcg PO [id number] 01/04/23 Pantoprazole [Protonix Tab*] 40 mg PO BEDTIME 01/04/23 Propranolol HCl 20 mg PO BID 01/04/23 hydrOXYzine HCL [Atarax] 50 mg PO BIDP PRN 01/04/23 Cholecalciferol (Vitamin D3) [Vitamin D3] 5,000 unit PO DAILY 01/05/23 Hydrocodone 10/APAP 325 [[place] 10/325*] 1 tab PO Q6HP PRN 04/13/23 Meclizine HCl [Antivert] 25 mg PO Q8HP PRN 04/13/23 Docusate [Colace Cap*] 100 mg PO BID 04/24/23 Mecobalamin [B12 Active] 3,000 mcg PO DAILY 04/24/23 Ped Multivit 43/Iron Fumarate [Flintstones Complete Chew Tab] 1 tab PO DAILY 04/24/23 Gabapentin 300 mg PO TID #90 tab 04/26/23 Ziprasidone [Geodon*] 60 mg PO BEDTIME #90 cap 04/26/23 Polyethylene Glycol 3350 [Miralax] 17 gm PO DAILY #30 packet 07/22/23 Lactulose 20 gm PO BID 08/23/23 Zolpidem Tartrate [Ambien] 10 mg PO BEDTIME PRN 08/23/23 Amiloride HCl [Midamor*] 2.5 mg PO DAILY 30 Days #30 08/27/23 Na Bicarb Tab [Sodium Bicarb 325 MG Tab*] 650 mg PO DAILY 30 Days #30 tab 08/27/23 Potassium Oral Tab [Klor-Con 10 mEq Tab*] 20 meq PO DAILY 30 Days #30 tab 08/27/23 New Medications: Potassium Oral Tab [Klor-Con 10 mEq Tab*] 20 meq PO DAILY 30 Days #30 tab Amiloride HCl [Midamor*] 2.5 mg PO DAILY 30 Days #30 Na Bicarb Tab [Sodium Bicarb 325 MG Tab*] 650 mg PO DAILY 30 Days #30 tab Followup: Jose Lindo [ACTIVE - CAN ADMIT] - 1 Week Davin Platt DO [Primary Care Provider] - 2-3 Days
[2023-08-27 16:02] VITALS: BP 129/71; TEMP 97.6
[2023-08-28] MEDS ORDERED: SODIUM BICARB 325 MG TAB PO SCH (09:00)
== END 2023-08-27 16:35 | disposition home or self-care (01) | DRG 641 ==
LOC: ER 11:25 → ERHOLD 15:00 → 2ND 16:20 → OBSVTOIN 08-25 07:52
PROVIDERS: ADMIT Internal Medicine Nephrology; ATTEND Internal Medicine Nephrology
DX: E87.6 Hypokalemia (principal); N17.9 Acute kidney failure, unspecified; E87.20 Acidosis, unspecified; I10 Essential (primary) hypertension; M79.7 Fibromyalgia; E86.0 Dehydration; G89.29 Other chronic pain; M54.9 Dorsalgia, unspecified; E03.9 Hypothyroidism, unspecified; G47.00 Insomnia, unspecified; K59.00 Constipation, unspecified; F31.9 Bipolar disorder, unspecified; K86.89 Other specified diseases of pancreas; E87.8 Other disorders of electrolyte and fluid balance, not elsewhere classified; K21.9 Gastro-esophageal reflux disease without esophagitis; Z88.8 Allergy status to other drugs, medicaments and biological substances; Z90.49 Acquired absence of other specified parts of digestive tract; Z98.84 Bariatric surgery status; Z90.710 Acquired absence of both cervix and uterus; Z79.890 Hormone replacement therapy; Z79.899 Other long term (current) drug therapy
CPT/HCPCS: 36415; 74177; 80048; 80053; 80061; 81003; 82435; 83690; 83735; 83935; 84100; 84132; 84300; 84439; 84443; 85025; 96361; 96365; 96366; 96375; 99285; C9113; G0378; J1650; J2405; J3010; J3480; J7030; Q9967

== ENCOUNTER 2023-10-17 23:20 | Emergency (ER) | payer MEDICARE ==
[2023-10-17] MEDS ORDERED: HALOPERIDOL LACT 5 MG/ML INJ ONE (23:42)
[2023-10-17] MEDS ORDERED: DIPHENHYDRAMINE 50 MG/ML VIAL ONE (23:42)
[2023-10-17] MEDS ORDERED: NA CHLORIDE 0.9% 1,000 ML ONE (23:43)
[2023-10-17 23:53] LABS: Absolute Lymphocytes (CBC) 3.1 K/uL (0.7-4.9); Lymphocytes % 43.2 % (15.3-44.8); MCV 92.3 fL (80-100); MPV 7.6 fL (7.6-11.3); Platelets 382 thou/uL (152-406)
[2023-10-18 00:10] LABS: Albumin 3.4 g/dL (3.4-5.0); Bilirubin Total 0.2 mg/dL (0.2-1.0)
[2023-10-18] MEDS ORDERED: HALOPERIDOL LACT 5 MG/ML INJ ONE (00:17)
[2023-10-18] MEDS ORDERED: DIPHENHYDRAMINE 50 MG/ML VIAL ONE (00:17)
[2023-10-18] MEDS ORDERED: KETAMINE HCL IN 0.9 % NACL 50 MG/5 ML SYRINGE IV ONE ×4 (00:34→03:04)
[2023-10-18 01:04] LABS: Barbiturates NEGATIVE (NEGATIVE); Benzodiazepines NEGATIVE (NEGATIVE); Cocaine NEGATIVE (NEGATIVE); METHAMPHETAM NEGATIVE (NEGATIVE); Methadone NEGATIVE (NEGATIVE); Opiates NEGATIVE (NEGATIVE); Phencyclidine NEGATIVE (NEGATIVE); THC Cannibis NEGATIVE (NEGATIVE)
[2023-10-18 01:05] LABS: Specific Gravity 1.016 (1.005-1.030); Urine Bacteria None Seen /HPF (<20); Urine Bilirubin NEGATIVE (Negative); Urine Blood Negative (Negative); Urine Clarity Clear (Clear); Urine Color Light-Yellow (Yellow); Urine Glucose NEGATIVE (Negative); Urine Protein NEGATIVE (Negative); Urine RBC <5 /HPF (None Seen); Urine Urobilinogen Normal (Normal)
[2023-10-18] MEDS ORDERED: DIAZEPAM 10 MG/2 ML INJ SYRINGE ONE (03:05)
--- NOTE | 2023-10-18 05:01 | ER ---
Nurse's Notes [facility] Name: Janice Bosch Age: 57 yrs Sex: Female : 1965 Arrival Date: 10/17/2023 Time: 23:20 Bed 19 Private MD: Diagnosis: Altered mental status, unspecified;Medication Reaction Presentation: 10/17 23:23 Chief complaint: EMS states: 57 year old female her partner reports that the patient ha1 became alter mental status after taking her home medications. she took [place], Lorazepam, Ambien, and a muscle relaxer. Coronavirus screen: Vaccine status:. Ebola Screen: No symptoms or risks identified at this time. 23:23 Method Of Arrival: EMS: [facility] ha 23:23 Initial Sepsis Screen: Does the patient meet any 2 criteria? No. Patient's initial ha1 sepsis screen is negative. Does the patient have a suspected source of infection? No. Patient's initial sepsis screen is negative. Risk Assessment: Do you want to hurt yourself or someone else? Patient reports no desire to harm self or others. Onset of symptoms was October 17, 2023. 23:23 Acuity: BONITA 3 ha1 Triage Assessment: 23:23 General: Appears comfortable, Behavior is drowsy, uncooperative. Pain: Denies pain. ha1 Neuro: Level of Consciousness is awake, lethargic, Oriented to person, Electronics Maintenance Technician are equal bilaterally Moves all extremities. Full function. Cardiovascular: Capillary refill < 3 seconds Patient's skin is warm and dry. Respiratory: Airway is patent Respiratory effort is even, unlabored, Respiratory pattern is regular, symmetrical. GI: No signs and/or symptoms were reported involving the gastrointestinal system. : No signs and/or symptoms were reported regarding the genitourinary system. Derm: Skin is pink, warm \T\ dry. Musculoskeletal: Circulation, motion, and sensation intact. Range of motion: intact in all extremities. Historical: - Allergies: 23:23 Reglan; ha1 23:23 Requip; ha1 - Home Meds: 23:23 Lorazepam 0.5 mg BID PRN [Active]; Hydroxyzine 50 mg [Active]; Zanaflex 4 mg Oral tab 2 ha1 tabs nightly [Active]; clonazepam 0.5 mg Oral tab [Active]; zolpidem 12.5 mg Oral Tablet once [Active]; [place] Carbonate Oral [Active]; propranolol 10 mg Oral tab twice a day [Active]; ziprasidone HCl 60 mg Oral cap at bedtime [Active]; venlafaxine 225 mg Oral Tablet every morning [Active]; - PMHx: 23:23 Bipolar disorder; bowel obstruction; chronic back pain; Fibromyalgia; Hypertension; ha1 ibs; Migraines; - PSHx: 23:23 Appendectomy; section; Cholecystectomy; Gastric Bypass; hysterectomy; ha1 - Immunization history:: Adult Immunizations unknown. - Social history:: Smoking status: unknown. Screenin:23 [facility] ED Fall Risk Assessment (Adult) History of falling in the last 3 months, ha1 including since admission No falls in past 3 months (0 pts) Confusion or Disorientation Yes (5 pts) Intoxicated or Sedated Yes (3 pts) Impaired Gait No (0 pts) Mobility Assist Device Used No (0 pt) Altered Elimination Yes (1 pt) Score/Fall Risk Level 3 or more points = High Risk Oriented to surroundings, Maintained a safe environment, Educated pt \T\ family on fall prevention, incl call for assistance when getting out of bed, Provided non-skid footwear, Hourly rounding (assess needs \T\ fall precautionary measures) done, Implemented a Fall Risk Plan of Care, Remained with patient while ambulating. Abuse screen: Denies threats or abuse. Denies injuries from another. Nutritional screening: No deficits noted. Tuberculosis screening: No symptoms or risk factors identified. Assessment: 23:23 Reassessment: see triage assessment. ha1 10/18 01:00 Reassessment: Patient appears in no apparent distress at this time. No changes from km8 previously documented assessment. Patient and/or family updated on plan of care and expected duration. Pain level reassessed. 02:00 General: Appears comfortable, Behavior is restless. Neuro: Level of Consciousness is ha1 awake, lethargic, Oriented to person. Derm: Skin is pink, warm \T\ dry. 03:00 General: Appears Behavior is anxious, uncooperative. Neuro: Level of Consciousness is ha1 awake, lethargic. Cardiovascular: Patient's skin is warm and dry. 03:25 Reassessment: EYES CLOSED. ha1 03:25 Respiratory: Airway is patent Trachea midline Respiratory effort is even, unlabored, ha1 Respiratory pattern is regular, symmetrical. 03:27 Reassessment: PARTNER CHASE CELL # [phone]. ha1 04:00 Reassessment:. Reassessment: No changes from previously documented assessment. Neuro: ha1 Level of Consciousness is awake. Respiratory: Airway is patent Respiratory effort is even, unlabored, Respiratory pattern is regular, symmetrical. 04:30 Reassessment: Patient and/or family updated on plan of care and expected duration. Pain ha1 level reassessed. Patient is alert, oriented x 3, equal unlabored respirations, skin warm/dry/pink. 04:57 Reassessment: Patient and/or family updated on plan of care and expected duration. Pain ha1 level reassessed. Patient is alert, oriented x 3, equal unlabored respirations, skin warm/dry/pink. 05:13 Reassessment: awaiting on transportation. ha1 05:32 General: Appears comfortable, Behavior is calm, cooperative. Neuro: Level of ha1 Consciousness is awake, alert, obeys commands, Oriented to person, place, time, situation. Vital Signs: 10/17 23:23 BP 112 / 72; Pulse 67; Resp 17 S; Temp 98.1; Pulse Ox 99% on R/A; Weight 65.77 kg; ha1 Height 5 ft. 5 in. ; 10/18 00:00 BP 105 / 73; Pulse 76; Resp 17 S; Pulse Ox 99% on R/A; ha1 00:30 BP 97 / 83; Pulse 63; Resp 16; Pulse Ox 99% on R/A; km8 01:00 BP 114 / 74; Pulse 68; Resp 18; Pulse Ox 100% on R/A; km8 02:00 BP 121 / 86; Pulse 77; Resp 17 S; Pulse Ox 100% on R/A; ha1 03:00 BP 107 / 74; Pulse 68; Resp 17 S; Pulse Ox 99% on R/A; ha1 04:00 BP 132 / 86; Pulse 66; Resp 17 S; Pulse Ox 99% on R/A; ha1 04:58 BP 125 / 75; Pulse 73; Resp 17 S; Pulse Ox 99% on R/A; ha1 10/17 23:23 Body Mass Index 24.13 (65.77 kg, 165.1 cm) [facility] ED Course: 10/17 23:23 Patient arrived in ED. ha1 23:23 Sanjana Godinez, RN is Primary Nurse. ha1 23:23 Michael Michele MD is Attending Physician. ec2 23:23 Arm band placed on right wrist. ha1 23:23 Patient has correct armband on for positive identification. Placed in gown. Bed in low ha1 position. Call light in reach. Side rails up X2. close to nurse station. 23:35 Inserted saline lock: 20 gauge in left antecubital area, using aseptic technique. Blood ha1 collected. 23:54 Triage completed. ha1 10/18 01:31 CT Head Brain wo Cont In Process Unspecified. EDMS 01:50 Foot Left 2 View XRAY In Process Unspecified. EDMS 05:00 Gino Guillen MD is Referral Physician. ec2 05:01 Provided Education on: NEED TO ORGANIZED MEDICATION IN ORGANIZER TO PREVENT MEDICATION ha1 ERROR.. 05:31 No provider procedures requiring assistance completed. IV discontinued, intact, ha1 bleeding controlled, No redness/swelling at site. Pressure dressing applied. Administered Medications: 10/17 23:45 Drug: NS 0.9% IV 1000 ml IV at 1 bolus Per protocol; 1000 mL bolus Route: IV; Rate: 1 ha1 bolus; Site: left antecubital; 10/18 01:30 Follow up: Response: No adverse reaction; IV Status: Completed infusion; IV Intake: ha1 1000ml 10/17 23:46 Drug: diphenhydrAMINE IVP 50 mg IVP once Route: IVP; Site: left antecubital; 10/18 00:15 Follow up: Response: No adverse reaction; Anxiety unchanged 10/17 23:48 Drug: Haloperidol IVP 5 mg IVP once Route: IVP; Site: left antecubital; 10/18 00:15 Follow up: Response: No adverse reaction; Anxiety unchanged 8 00:22 Drug: Haloperidol IVP 5 mg IVP once Route: IVP; Site: left antecubital; km8 00:45 Follow up: Response: No adverse reaction; Anxiety unchanged 8 00:22 Drug: diphenhydrAMINE IVP 50 mg IVP once Route: IVP; Site: left antecubital; km8 00:45 Follow up: Response: No adverse reaction; Anxiety unchanged km8 00:48 Drug: Ketamine IVP 25 mg IVP once Route: IVP; Site: left antecubital; 8 00:57 Follow up: Response: No adverse reaction; Anxiety unchanged 00:58 Drug: Ketamine IVP 50 mg IVP once Route: IVP; Site: left antecubital; 8 01:38 Follow up: Response: No adverse reaction; Anxiety unchanged 01:38 Drug: Ketamine IVP 25 mg IVP once Route: IVP; Site: left antecubital; km8 02:00 Follow up: Response: No adverse reaction; No change in condition; RASS: Restless (+1) ha1 02:08 Drug: Ketamine IVP 50 mg IVP once Route: IVP; Site: left antecubital; 02:30 Follow up: Response: No adverse reaction; No change in condition; RASS: Restless (+1) ha1 03:09 Drug: Ketamine IVP 50 mg IVP once Route: IVP; Site: left antecubital; ha1 03:30 Follow up: Response: No adverse reaction; Marked relief of symptoms; RASS: Alert and ha1 Calm (0) 03:12 Drug: Diazepam IVP 5 mg IVP once Route: IVP; Site: left antecubital; ha1 03:30 Follow up: Response: No adverse reaction; Marked relief of symptoms; Anxiety decreased; ha1 RASS: Alert and Calm (0) Medication: 00:00 VIS not applicable for this client. ha1 Intake: 01:30 IV: 1000ml; Total: 1000ml. ha1 Outcome: 05:00 Discharge ordered by . ec2 05:32 Discharged to home via wheelchair, with family, 1 05:32 Condition: stable 05:32 Discharge instructions given to patient, family, Instructed on discharge instructions, follow up and referral plans. Demonstrated understanding of instructions, follow-up care, 05:33 Patient left the ED. ha1 Signatures: Dispatcher [employer] Sanjana Nur, RN RN ha1 Michael Michele MD MD ec2 Marx, Katie, RN RN km8 Corrections: (The following items were deleted from the chart) 10/17 23:54 23:23 BP 112 / 72; Pulse 67bpm; ha1 ha1 10/18 05:05 10/17 23:23 Chief complaint: EMS states: 57 year old female her partner reports that ha1 the patient became alter mental status after taking her home medications. she took [place], Lorazepam, Ambien, and a muscle relaxer. ha1
--- NOTE | 2023-10-18 05:01 | EDPHYS ---
Physician Documentation [facility] Name: Janice Bosch Age: 57 yrs Sex: Female : 1965 Arrival Date: 10/17/2023 Time: 23:20 Bed 19 Private MD: ED Physician Michael Michele HPI: 10/17 23:26 This 57 yrs old Female presents to ER via EMS with complaints of confusion. ec2 23:26 Patient arrives today for evaluation of altered mental status. Patient reportedly was ec2 sent in by due to concern for taking additional doses of her muscle relaxer, Ambien, lorazepam. No reported injuries or falls, no reported complaints prior to 1 hour prior to arrival. Patient otherwise is reportedly normally functioning individual who is capable of making decisions and take care of herself which is not her presentation currently.. Historical: - Allergies: 23:23 Reglan; ha1 23:23 Requip; ha1 - Home Meds: 23:23 Lorazepam 0.5 mg BID PRN [Active]; Hydroxyzine 50 mg [Active]; Zanaflex 4 mg Oral tab 2 ha1 tabs nightly [Active]; clonazepam 0.5 mg Oral tab [Active]; zolpidem 12.5 mg Oral Tablet once [Active]; [place] Carbonate Oral [Active]; propranolol 10 mg Oral tab twice a day [Active]; ziprasidone HCl 60 mg Oral cap at bedtime [Active]; venlafaxine 225 mg Oral Tablet every morning [Active]; - PMHx: 23:23 Bipolar disorder; bowel obstruction; chronic back pain; Fibromyalgia; Hypertension; ha1 ibs; Migraines; - PSHx: 23:23 Appendectomy; section; Cholecystectomy; Gastric Bypass; hysterectomy; ha1 - Immunization history:: Adult Immunizations unknown. - Social history:: Smoking status: unknown. ROS: 23:26 Constitutional: as per hpi ec2 Exam: 23:26 Constitutional: GEN: NAD Head: atraumatic Eyes: EOMI Ears: External ears are ec2 normal. CV: regular rate LUNGS: no respiratory distress ABD: non-distended SKIN: no evidence of rashes MSK: no evidence of trauma NEURO: moves all extremities equally, cranial nerves II through XII intact, confused individual without focal deficit Vital Signs: 23:23 BP 112 / 72; Pulse 67; Resp 17 S; Temp 98.1; Pulse Ox 99% on R/A; Weight 65.77 kg; ha1 Height 5 ft. 5 in. ; 10/18 00:00 BP 105 / 73; Pulse 76; Resp 17 S; Pulse Ox 99% on R/A; ha1 00:30 BP 97 / 83; Pulse 63; Resp 16; Pulse Ox 99% on R/A; km8 01:00 BP 114 / 74; Pulse 68; Resp 18; Pulse Ox 100% on R/A; km8 02:00 BP 121 / 86; Pulse 77; Resp 17 S; Pulse Ox 100% on R/A; ha1 03:00 BP 107 / 74; Pulse 68; Resp 17 S; Pulse Ox 99% on R/A; ha1 04:00 BP 132 / 86; Pulse 66; Resp 17 S; Pulse Ox 99% on R/A; ha1 04:58 BP 125 / 75; Pulse 73; Resp 17 S; Pulse Ox 99% on R/A; 1 10/17 23:23 Body Mass Index 24.13 (65.77 kg, 165.1 cm) [facility] MDM: 10/17 23:23 Patient medically screened. ec2 23:26 ED course: Patient arrives today for evaluation of altered mental status. Examination ec2 remarkable for well-appearing nontoxic individual who is slightly confused who has no focal neurologic deficit present on my examination. Will obtain lab work, CT scan of the head, urine drug screen, treat the patient with Haldol as well as Benadryl and crystalloid as the patient is confused and attempting to get out of bed. Suspect medication side effect, electrolyte disturbances, possible UTI, low suspicion for intracranial brain bleed or mass. . 10/18 01:43 Data reviewed: vital signs. ED course: Patient remains very restless despite multiple ec2 doses of Benadryl and Haldol, also gave ketamine, will continue to give additional ketamine until appropriate agitation management. 03:00 ED course: CT scan of head shows no acute intracranial abnormality, foot x-ray shows ec2 fourth metatarsal fracture. Patient been ambulating on this for several days, will place patient in a orthopedic shoe.. 04:56 ED course: On reassessment patient is awake and alert and ambulatory without issue, ec2 patient is able to tolerate p.o. Patient will call a ride and be discharged home. I suspect this is all secondary to medication administration. Return precautions given.. 10/17 23:25 Order name: CBC with Diff; Complete Time: 01:00 10/17 23:25 Order name: CMP; Complete Time: 01:00 10/17 23:25 Order name: UAM; Complete Time: 01:06 10/17 23:25 Order name: UDS; Complete Time: :06 10/17 23:25 Order name: CT Head Brain wo Cont 10/18 01:36 Order name: Foot Left 2 View XRAY 2 10/17 23:25 Order name: EKG; Complete Time: 23:25 ec2 10/17 23:25 Order name: EKG - Nurse/Tech; Complete Time: 01:12 10/18 03:00 Order name: Post-op Orthopedic Shoe; Complete Time: 03:29 ec2 Administered Medications: 10/17 23:45 Drug: NS 0.9% IV 1000 ml IV at 1 bolus Per protocol; 1000 mL bolus Route: IV; Rate: 1 ha1 bolus; Site: left antecubital; 10/18 01:30 Follow up: Response: No adverse reaction; IV Status: Completed infusion; IV Intake: ha1 1000ml 10/17 23:46 Drug: diphenhydrAMINE IVP 50 mg IVP once Route: IVP; Site: left antecubital; 10/18 00:15 Follow up: Response: No adverse reaction; Anxiety unchanged 10/17 23:48 Drug: Haloperidol IVP 5 mg IVP once Route: IVP; Site: left antecubital; 10/18 00:15 Follow up: Response: No adverse reaction; Anxiety unchanged 8 00:22 Drug: Haloperidol IVP 5 mg IVP once Route: IVP; Site: left antecubital; km8 00:45 Follow up: Response: No adverse reaction; Anxiety unchanged 8 00:22 Drug: diphenhydrAMINE IVP 50 mg IVP once Route: IVP; Site: left antecubital; km8 00:45 Follow up: Response: No adverse reaction; Anxiety unchanged km8 00:48 Drug: Ketamine IVP 25 mg IVP once Route: IVP; Site: left antecubital; km8 00:57 Follow up: Response: No adverse reaction; Anxiety unchanged 00:58 Drug: Ketamine IVP 50 mg IVP once Route: IVP; Site: left antecubital; km8 01:38 Follow up: Response: No adverse reaction; Anxiety unchanged 01:38 Drug: Ketamine IVP 25 mg IVP once Route: IVP; Site: left antecubital; km8 02:00 Follow up: Response: No adverse reaction; No change in condition; RASS: Restless (+1) ha1 02:08 Drug: Ketamine IVP 50 mg IVP once Route: IVP; Site: left antecubital; km8 02:30 Follow up: Response: No adverse reaction; No change in condition; RASS: Restless (+1) ha1 03:09 Drug: Ketamine IVP 50 mg IVP once Route: IVP; Site: left antecubital; ha1 03:30 Follow up: Response: No adverse reaction; Marked relief of symptoms; RASS: Alert and ha1 Calm (0) 03:12 Drug: Diazepam IVP 5 mg IVP once Route: IVP; Site: left antecubital; ha1 03:30 Follow up: Response: No adverse reaction; Marked relief of symptoms; Anxiety decreased; ha1 RASS: Alert and Calm (0) Disposition Summary: 10/18/23 05:00 Discharge Ordered Condition: Stable ec2 Diagnosis - Altered mental status, unspecified ec2 - Medication Reaction ec2 Followup: ec2 - With: Gino Guillen MD - When: - Reason: Recheck today's complaints Discharge Instructions: - Discharge Summary Sheet ec2 Forms: - Medication Reconciliation Form ec2 - Thank You Letter ec2 - Antibiotic Education ec2 - Prescription Opioid Use ec2 - Patient Portal Instructions ec2 - Leadership Thank You Letter ec2 Signatures: Dispatcher [employer] Sanjana Nru RN RN 1 Michael Michele MD MD 2 Andressa Drummond RN RN km8
[2023-10-18 05:52] VITALS: TEMP 98.1; O2SAT 99
[2023-10-18 06:05] VITALS: BP 125/75
--- NOTE | 2023-10-19 15:45 | RAD REPORT ---
EXAM DESCRIPTION: CT Head Without Intravenous Contrast CLINICAL HISTORY: The patient is 57 years old and is Female; CONFUSED Bed Name: 19 TECHNIQUE: Axial computed tomography images of the head/brain without intravenous contrast. Sagitt al and coronal reformatted images were created and reviewed. This CT exam was performed using one o r more of the following dose reduction techniques: automated exposure control, adjustment of the mA and/or kV according to patient size, and/or use of iterative reconstruction technique. COMPARISON: 05/10/2023 CT head without contrast FINDINGS: BRAIN: No extra-axial fluid collection. No intracranial hemorrhage. No transtentorial he rniation. No focal rodríguez-white matter differentiation abnormality. MIDLINE SHIFT: None. VENTRICLES: No ventriculomegaly. BONES/JOINTS: No fracture of the calvarium or visualized facial bones. SOFT TISSUES: Unremarkable SINUSES: No masses, bony erosion or evidence of acute sinusitis. MASTOID AIR CELLS: Unremarkable as visualized. No mastoid effusion. IMPRESSION: No acute intracranial abnormality. Electronically signed by: Reyes Dodson MD 10/18/2023 01:56 AM PHILATELIC CONSULTANT Due to temporary technical issues with the PACS/Fluency reporting system, reports are being signed by the in house radiologists without review as a courtesy to insure prompt reporting. The interpreting radiologist is fully responsible for the content of the report.
--- NOTE | 2023-10-19 15:50 | RAD REPORT ---
EXAM DESCRIPTION: XR Left Foot, 2 Views CLINICAL HISTORY: The patient is 57 years old and is Female; injury Bed Name: 19 TECHNIQUE: Frontal and lateral views of the left foot. COMPARISON: No relevant prior studies available. FINDINGS: BONES/JOINTS: Incomplete oblique fracture through the midshaft of the left 1st proximal phalanx, with slight plantar apex angulation at the fracture site. Small plantar calcaneal spur noted. No additional fractures identified. SOFT TISSUES: No radiopaque foreign body. IMPRESSION: Incomplete oblique fracture through the midshaft of the left 1st proximal phalanx. Electronically signed by: Reyes Dodson MD 10/18/2023 01:58 AM MINE CAR MECHANIC Due to temporary technical issues with the PACS/Fluency reporting system, reports are being signed by the in house radiologists without review as a courtesy to insure prompt reporting. The interpreting radiologist is fully responsible for the content of the report.
--- NOTE | 2023-10-24 17:20 | EKG ---
Test Date: 2023-10-18 Test Time: 01:06:56 Cook Barbecue: [place] MEASUREMENT RESULTS: Intervals: Rate: 68 NM: 152 QRSD: 88 QT: 478 QTc: 508 Luckey: P: 70 NM: 152 QRS: -47 T: 59 INTERPRETIVE STATEMENTS: Normal sinus rhythm Left anterior fascicular block Prolonged QT Abnormal ECG Compared to ECG 04/28/2023 19:07:35 Prolonged QT interval now present ST (T wave) deviation no longer present Electronically Signed On 10-24-23 16:59:40 SUPPLY SERVICE WORKER by Lee Braga
== END 2023-10-18 05:33 | disposition home or self-care (01) ==
LOC: ER 23:20
DX: R41.82 Altered mental status, unspecified (principal); T50.905A Adverse effect of unspecified drugs, medicaments and biological substances, initial encounter; I10 Essential (primary) hypertension; M79.7 Fibromyalgia; M54.9 Dorsalgia, unspecified; G89.29 Other chronic pain; F31.9 Bipolar disorder, unspecified; Z79.899 Other long term (current) drug therapy; Z88.8 Allergy status to other drugs, medicaments and biological substances
CPT/HCPCS: 96361; 93005; 85025; 81001; 36415; 80053; 80307; 70450; 73620; 96375; 96374; 99284; J1630; J1200; J7030

== ENCOUNTER 2024-01-03 09:31 | Emergency (ER) | payer MEDICARE ==
[2024-01-03 10:17] LABS: Absolute Eosinophils 0.1 K/uL (0-0.5); Absolute Lymphocytes (CBC) 1.6 K/uL (0.7-4.9); Absolute Monocytes 0.6 K/uL (0.1-1.3); Absolute Neutrophil 4.3 K/uL (1.8-8.0); Basophils % 0.2 % (0-1.3); Eosinophils % 2.2 % (0-4.4); Hematocrit 38.1 % (36.0-45.0); Hemoglobin 12.3 g/dL (12.0-15.0); Lymphocytes % 24.4 % (15.3-44.8); MCHC 32.4 g/dL (32.0-36.0); MCV 92.7 fL (80-100); MPV 6.8 fL (7.6-11.3); Neutrophils % 64.2 % (41.7-73.7); Platelets 427 thou/uL (152-406); RBC Red Blood Cell Count 4.11 M/uL (3.86-4.86); Red Cell Distribution Width 15.1 % (12.1-15.2)
[2024-01-03 10:41] LABS: Albumin 3.1 g/dL (3.4-5.0); Albumin/Globulin Ratio 1.1 (1.1-1.8); Anion Gap 7.2 mEq/L (5.0-15.0); Bilirubin Direct 0.2 mg/dL (0-0.2); Bilirubin Indirect, Calculated 0.1 mg/dL (0.2-0.8); Bilirubin Total 0.3 mg/dL (0.2-1.0); Globulin 2.7 g/dL (2.3-3.5); Potassium 3.2 mEq/L (3.5-5.1); Protein, Total 5.8 g/dL (6.4-8.2)
--- NOTE | 2024-01-03 10:46 | RAD REPORT ---
EXAM DESCRIPTION: CT - [id number] - 01/03/2024 10:15 am CLINICAL HISTORY: Trauma, head and neck injury. fall COMPARISON: Neck Angio dated 01/03/2024; Head C Spine Mpr Wo Con dated 05/10/2023; Head C Spine Mpr Wo C on dated 04/08/2023 TECHNIQUE: Axial 5 mm thick images of the head were obtained. Axial 2 mm thick images of the cervical spine were obtained with sagittal and coronal reconstruction images generated and reviewed. All CT scans are performed using dose optimization technique as appropriate and may include automated exposure control or mA/KV adjustment according to patient size. FINDINGS: CT HEAD WITHOUT CONTRAST: No acute hemorrhage, hydrocephalus or extra-axial collection is identified.No areas of brain edema or midline shift. The paranasal sinuses and mastoids are clear.The calvarium is intact. CT CERVICAL SPINE WITHOUT CONTRAST: No fracture or subluxation.No prevertebral soft tissues swelling is identified. Mild cervical spondyl osis noted. Varying degrees of neural foraminal narrowing. No high-grade central spinal stenosis iden tified. IMPRESSION: No acute intracranial or cervical spine findings.
--- NOTE | 2024-01-03 10:48 | RAD REPORT ---
EXAM DESCRIPTION: CT - Head angio - 01/03/2024 10:19 am CLINICAL HISTORY: ams COMPARISON: Head Brain Wo Cont dated 10/18/2023; Head Brain Wo Cont dated 04/28/2023 TECHNIQUE: CT angiography of the head was performed with maximum intensity reformatted images. 3D ma ximum intensity pixel (MIP) reconstructions were created All CT scans are performed using dose optimization technique as appropriate and may include automated exposure control or mA/KV adjustment according to patient size. FINDINGS: Anterior circulation: No aneurysm or large vessel occlusion. No hemodynamically significant stenosis. No arteriovenous malf ormation identified. Posterior circulation: No aneurysm or large vessel occlusion. No hemodynamically significant stenosis. No arteriovenous malf ormation identified. IMPRESSION: No significant flow abnormality is detected.
--- NOTE | 2024-01-03 10:49 | RAD REPORT ---
EXAM DESCRIPTION: CT - Neck Angio - 01/03/2024 10:19 am CLINICAL HISTORY: ams COMPARISON: Head C Spine Mpr Wo Con dated 05/10/2023; Head C Spine Mpr Wo Con dated 04/08/2023 TECHNIQUE: CT angiography of the neck vessels was performed with maximum intensity reformatted image s. CAROTID STENOSIS REFERENCE USING NASCET CRITERIA: Mild - <50% stenosis. Moderate - 50-69% stenosis. Severe - 70-94% stenosis. Near occlusion - 95-99% stenosis. Occluded - 100% stenosis. All CT scans are performed using dose optimization technique as appropriate and may include automated exposure control or mA/KV adjustment according to patient size. FINDINGS: A left aortic arch is identified with normal three vessel configuration of the great vesse ls. No significant flow abnormality is seen of the common carotid bilaterally. No significant stenosis is identified involving the cervical segments of both internal carotid arteri es. Normal flow is seen within both vertebral arteries. IMPRESSION: No significant flow abnormality of the neck vessels is identified.
--- NOTE | 2024-01-03 10:56 | RAD REPORT ---
EXAM DESCRIPTION: RAD - Chest Single View - 01/03/2024 10:23 am CLINICAL HISTORY: fall COMPARISON: Chest Single View dated 04/28/2023; Chest Single View dated 04/13/2023; Chest Single View dated 04/08/2023; Chest Pa And Lat (2 Views) dated 07/21/2020 FINDINGS: Lines: None. Lungs: No evidence of edema or pneumonia. Pleural: No significant pleural effusions or pneumothorax. Cardiac: The heart size is within normal limits. Mediastinum: Within normal limits. Bones: No acute fractures. Other: None IMPRESSION: No acute cardiopulmonary disease.
[2024-01-03 12:53] LABS: Specific Gravity 1.023 (1.005-1.030); Sqamous Epithelial <5 /HPF (None Seen); Urine Bacteria None Seen /HPF (<20); Urine Bilirubin NEGATIVE (Negative); Urine Blood Negative (Negative); Urine Clarity Clear (Clear); Urine Color Colorless (Yellow); Urine Culture Reflex Order NOT NEEDED; Urine Glucose NEGATIVE (Negative); Urine Ketones NEGATIVE (Negative); Urine Micro Reflex YN NO BILL MICROSCOPIC; Urine Nitrite NEGATIVE (Negative); Urine Protein NEGATIVE (Negative); Urine RBC <5 /HPF (None Seen); Urine Urobilinogen Normal (Normal); Urine WBC <5 /HPF (<5)
--- NOTE | 2024-01-03 13:19 | ER ---
Nurse's Notes [facility] Name: Janice Bosch Age: 58 yrs Sex: Female : 1965 Arrival Date: 01/03/2024 Time: 09:31 Bed 8 Private MD: Diagnosis: Altered mental status, unspecified Presentation: 01/02 09:58 Chief complaint: Patient states: fell a week ago and has had tailbone pain and headache iw since then, today she fell again , felt dizzy, she uses a walker to ambulate, also has had some confusion and forgetfulness since yesterday. Coronavirus screen: At this time, the client does not indicate any symptoms associated with coronavirus-19. Ebola Screen: Patient negative for fever greater than or equal to 101.5 degrees Fahrenheit, and additional compatible Ebola Virus Disease symptoms Patient denies exposure to infectious person. Patient denies travel to an Ebola-affected area in the 21 days before illness onset. No symptoms or risks identified at this time. Initial Sepsis Screen: Does the patient meet any 2 criteria? No. Patient's initial sepsis screen is negative. Does the patient have a suspected source of infection? No. Patient's initial sepsis screen is negative. Risk Assessment: Do you want to hurt yourself or someone else? Patient reports no desire to harm self or others. Onset of symptoms was January 02, 2024. 09:58 Method Of Arrival: Wheelchair iw 09:58 Acuity: BONITA 3 iw Historical: - Allergies: 10:00 Reglan; iw 10:00 Requip; iw 10:00 Morphine; iw - Home Meds: 10:00 OxyContin Oral as needed [Active]; diclofenac sodium 50 mg oral tablet, delayed release iw (enteric coated) 2 times per day [Active]; levothyroxine 50 mcg tablet daily [Active]; ondansetron 4 mg oral Tablet,disintegrating as needed [Active]; tizanidine 4 mg oral capsule every day at bedtime [Active]; propranolol 20 mg Oral tablet nightly [Active]; meclizine 25 mg Oral tablet as needed [Active]; venlafaxine 225 mg oral Tablet, Extended Release 24 hr daily [Active]; olanzapine 5 mg oral tablet daily [Active]; lorazepam 1 mg Oral tablet as needed [Active]; zolpidem 12.5 mg Oral Tablet, ER Multiphase every day at bedtime [Active]; - PMHx: 10:00 Bipolar disorder; bowel obstruction; chronic back pain; Fibromyalgia; Hypertension; iw ibs; Migraines; - Immunization history:: Adult Immunizations. - Infectious Disease History:: Denies. - Social history:: Smoking status: unknown. Screenin:21 [facility] ED Fall Risk Assessment (Adult) History of falling in the last 3 months, ph including since admission Yes- fall prone (multiple falls) (3 pts) Confusion or Disorientation No (0 pts) Intoxicated or Sedated No (0 pts) Impaired Gait Yes (1 pt) Mobility Assist Device Used Yes (1 pt) Altered Elimination No (0 pt) Score/Fall Risk Level 0 - 2 = Low Risk Oriented to surroundings, Maintained a safe environment, Hourly rounding (assess needs \T\ fall precautionary measures) done. Abuse screen: Denies threats or abuse. Denies injuries from another. Nutritional screening: No deficits noted. Tuberculosis screening: No symptoms or risk factors identified. Assessment: 10:33 General: Appears in no apparent distress. comfortable, well groomed, Behavior is calm, ph cooperative, appropriate for age. Pain: Complains of pain in back and buttocks. Neuro: Level of Consciousness is awake, alert, obeys commands, Oriented to person, place, time, situation. Cardiovascular: Capillary refill < 3 seconds in bilateral fingers Patient's skin is warm and dry. Respiratory: Airway is patent Respiratory effort is even, labored. Derm: Skin is pink, warm \T\ dry. 11:27 Reassessment: Patient appears in no apparent distress at this time. Patient and/or ph family updated on plan of care and expected duration. Pain level reassessed. Patient is alert, oriented x 3, equal unlabored respirations, skin warm/dry/pink. Vital Signs: 09:58 BP 137 / 93; Pulse 88; Resp 16; Temp 98.1; Pulse Ox 100% on R/A; Weight 49.9 kg; Height iw 5 ft. 2 in. ; 12:58 BP 151 / 89; Pulse 78; Resp 18; Pulse Ox 99% on R/A; ph 13:24 BP 150 / 91; Pulse 76; Resp 14; Pulse Ox 100% ; ko1 09:58 Body Mass Index 20.12 (49.90 kg, 157.48 cm) ED Course: 09:33 Patient arrived in ED. rg4 09:33 Michael Michele MD is Attending Physician. ec2 10:00 Triage completed. iw 10:05 Arm band placed on. iw 10:16 CT Head C Spine In Process Unspecified. EDMS 10:17 CT Head Angio In Process Unspecified. EDMS 10:17 CT Neck Angio In Process Unspecified. EDMS 10:18 Initial lab(s) drawn, by me, held in ED. Inserted saline lock: 22 gauge in left ph antecubital area, using aseptic technique. Blood collected. 10:22 Patient has correct armband on for positive identification. Placed in gown. Bed in low ph position. Call light in reach. Side rails up X2. Provided Education on: on time for test results and use of call light. Client placed on continuous cardiac and pulse oximetry monitoring. NIBP monitoring applied. quality assurance monitor on. Door closed. Noise minimized. Warm blanket given. 10:24 XRAY Chest (1 view) In Process Unspecified. EDMS 10:40 Rosa Isela Tello, RN is Primary Nurse. ph 13:24 No provider procedures requiring assistance completed. IV discontinued, intact, ko1 bleeding controlled, No redness/swelling at site. Pressure dressing applied. Administered Medications: No medications were administered Medication: 10:22 VIS not applicable for this client. ph Outcome: 13:18 Discharge ordered by . ec2 13:31 Discharged to home via wheelchair, with family, ko1 13:31 Condition: stable 13:31 Discharge instructions given to patient, family, Instructed on discharge instructions, follow up and referral plans. Demonstrated understanding of instructions, follow-up care, 13:33 Patient left the ED. ko1 Signatures: Dispatcher [employer] Lesley Todd RN RN iw Rosa Isela Tello RN RN ph Judy Guy rg4 Melany James RN RN ko1 Michael Michele MD MD ec2
--- NOTE | 2024-01-03 13:19 | EDPHYS ---
Physician Documentation [facility] Name: Janice Bosch Age: 58 yrs Sex: Female : 1965 Arrival Date: 01/03/2024 Time: 09:31 Bed 8 Private MD: ED Physician Michael Michele HPI: 01/02 09:55 This 58 yrs old Female presents to ER via Unassigned with complaints of ec2 Headache, Trouble Talking. 09:55 Patient arrives today due to concern for altered mental status. Patient has been having ec2 bouts of confusion, multiple falls over the past couple weeks. Patient has been having some increasing forgetfulness as well as word finding difficulties ongoing for several days as well.. Historical: - Allergies: 10:00 Reglan; iw 10:00 Requip; iw 10:00 Morphine; iw - Home Meds: 10:00 OxyContin Oral as needed [Active]; diclofenac sodium 50 mg oral tablet, delayed release iw (enteric coated) 2 times per day [Active]; levothyroxine 50 mcg tablet daily [Active]; ondansetron 4 mg oral Tablet,disintegrating as needed [Active]; tizanidine 4 mg oral capsule every day at bedtime [Active]; propranolol 20 mg Oral tablet nightly [Active]; meclizine 25 mg Oral tablet as needed [Active]; venlafaxine 225 mg oral Tablet, Extended Release 24 hr daily [Active]; olanzapine 5 mg oral tablet daily [Active]; lorazepam 1 mg Oral tablet as needed [Active]; zolpidem 12.5 mg Oral Tablet, ER Multiphase every day at bedtime [Active]; - PMHx: 10:00 Bipolar disorder; bowel obstruction; chronic back pain; Fibromyalgia; Hypertension; iw ibs; Migraines; - Immunization history:: Adult Immunizations. - Infectious Disease History:: Denies. - Social history:: Smoking status: unknown. ROS: :55 Constitutional: as per hpi ec2 Exam: :55 Constitutional: GEN: NAD Head: atraumatic Eyes: EOMI Ears: External ears are ec2 normal. CV: regular rate LUNGS: no respiratory distress ABD: non-distended SKIN: no evidence of rashes MSK: no evidence of trauma NEURO: moves all extremities equally, cranial nerves II through XII intact, strength equal all 4 extremities Vital Signs: 09:58 BP 137 / 93; Pulse 88; Resp 16; Temp 98.1; Pulse Ox 100% on R/A; Weight 49.9 kg; Height iw 5 ft. 2 in. ; 12:58 BP 151 / 89; Pulse 78; Resp 18; Pulse Ox 99% on R/A; ph 13:24 BP 150 / 91; Pulse 76; Resp 14; Pulse Ox 100% ; ko1 09:58 Body Mass Index 20.12 (49.90 kg, 157.48 cm) iw MDM: 09:36 Patient medically screened. ec2 09:55 Data reviewed: vital signs. ED course: Patient arrives today due to concern for trauma ec2 status and recurrent falls and generalized weakness. Examination remarkable for well-appearing nontoxic dividual who has generalized weakness however equal throughout all extremities. Will obtain lab work, CT imaging. Evaluate for electrolyte disturbances, UTI, intracranial injury, C-spine injury.. 10:02 ED course: EG independently reviewed and interpreted by me, shows normal sinus rhythm, ec2 rate of 86, no acute ST segment elevations, intervals are nonconcerning.. 10:57 ED course: Metabolic profile shows slight hypokalemia with a potassium of 3.2. CBC is ec2 reassuring. Troponin within normal ranges. Chest x-ray shows no acute intrathoracic process. CT scan of the head shows no acute intracranial process. CT C-spine without bony fracture. CT angio of the head and neck showed no flow-limiting stenosis. . 01/02 09:55 Order name: Basic Metabolic Panel; Complete Time: 10:57 ec2 01/02 09:55 Order name: CBC with Diff; Complete Time: 10:57 ec2 01/02 09:55 Order name: Troponin HS; Complete Time: 10:57 ec2 01/02 09:55 Order name: UAM; Complete Time: 13:13 ec2 01/02 09:55 Order name: LFT's; Complete Time: 10:57 ec2 01/02 09:55 Order name: AMMONIA; Complete Time: 10:57 ec2 01/02 10:33 Order name: CREATININE WHOLE BLOOD; Complete Time: 10:57 EDMS 01/02 09:55 Order name: XRAY Chest (1 view); Complete Time: 10:57 ec2 01/02 09:55 Order name: CT Head C Spine; Complete Time: 10:57 ec2 01/02 09:55 Order name: CT Head Angio; Complete Time: 10:57 ec2 01/02 09:55 Order name: CT Neck Angio; Complete Time: 10:57 ec2 01/02 09:55 Order name: Cardiac monitoring; Complete Time: 09:57 ec2 01/02 09:55 Order name: EKG - Nurse/Tech; Complete Time: 10:41 ec2 01/02 09:55 Order name: IV Saline Lock; Complete Time: 10:41 ec2 01/02 09:55 Order name: Labs collected and sent; Complete Time: 10:41 ec2 01/02 09:55 Order name: O2 Per Protocol; Complete Time: 09:57 ec2 01/02 09:55 Order name: O2 Sat Monitoring; Complete Time: 09:57 ec2 Administered Medications: No medications were administered Disposition Summary: 01/03/24 13:18 Discharge Ordered Notes: Location: Home ec2 Condition: Stable ec2 Diagnosis - Altered mental status, unspecified ec2 Followup: ec2 - With: Private Physician - When: - Reason: Re-evaluation by your physician Discharge Instructions: - Discharge Summary Sheet ec2 - Confusion ec2 Forms: - Medication Reconciliation Form ec2 - Thank You Letter ec2 - Antibiotic Education ec2 - Prescription Opioid Use ec2 - Patient Portal Instructions ec2 - Leadership Thank You Letter ec2 Signatures: Dispatcher [employer] Lesley Todd RN Rosa Isela Ragland RN RN ph Corral, Edwin, MD MD ec2 Corrections: (The following items were deleted from the chart) 09:55 09:55 Chest Single View+RAD.RAD.BRZ ordered. EDNC EDMS 09:56 09:56 Head C Spine MPR Wo Con+CT.RAD.BRZ ordered. EDNC EDMS 09:56 09:56 Head Angio+CT.RAD.BRZ ordered. EDNC EDMS 09:56 09:56 Neck Angio+CT.RAD.BRZ ordered. EDNC EDMS 12:57 10:58 Roberts ordered. ec2 ph
[2024-01-03 19:11] VITALS: BP 150/91; TEMP 98.1; O2SAT 100
== END 2024-01-03 13:33 | disposition home or self-care (01) ==
LOC: ER 09:31
DX: R41.82 Altered mental status, unspecified (principal); I10 Essential (primary) hypertension; Z88.5 Allergy status to narcotic agent; Z88.8 Allergy status to other drugs, medicaments and biological substances
CPT/HCPCS: 85025; 81001; 80048; 36415; 82140; 82565; 80076; 84484; 70450; 72125; 70496; 70498; 71045; 99284; Q9967

== ENCOUNTER 2024-01-22 12:03 | Inpatient (IN) | payer MEDICARE ==
[2024-01-22] MEDS ORDERED: DIAZEPAM 10 MG/2 ML INJ SYRINGE ONE (12:26)
[2024-01-22] MEDS ORDERED: MECLIZINE HCL 12.5 MG TAB ONE (12:26)
[2024-01-22] MEDS ORDERED: NA CHLORIDE 0.9% 1,000 ML ONE (12:26)
[2024-01-22] MEDS ORDERED: ONDANSETRON 4 MG/2 ML VIAL ONE (12:26)
[2024-01-22 12:49] LABS: Absolute Eosinophils 0.1 K/uL (0-0.5); Absolute Lymphocytes (CBC) 1.7 K/uL (0.7-4.9); Absolute Monocytes 0.6 K/uL (0.1-1.3); Absolute Neutrophil 4.3 K/uL (1.8-8.0); Basophils % 0.4 % (0-1.3); Eosinophils % 1.9 % (0-4.4); Hematocrit 43.5 % (36.0-45.0); Hemoglobin 14.2 g/dL (12.0-15.0); Lymphocytes % 24.6 % (15.3-44.8); MCH 30.7 pg (27.0-35.0); MCHC 32.6 g/dL (32.0-36.0); MCV 94.1 fL (80-100); MPV 7.5 fL (7.6-11.3); Monocytes % 9.5 % (3.3-12.3); Neutrophils % 63.6 % (41.7-73.7); Nucleated Red Blood Cells % 0.3 % (0-0); Platelets 472 thou/uL (152-406); RBC Red Blood Cell Count 4.63 M/uL (3.86-4.86); Red Cell Distribution Width 16.9 % (12.1-15.2)
--- NOTE | 2024-01-22 12:57 | RAD REPORT ---
EXAM DESCRIPTION: CT - Head Brain Wo Cont - 01/22/2024 12:47 pm CLINICAL HISTORY: vertigo COMPARISON: Head angio dated 01/03/2024; Head Brain Wo Cont dated 10/18/2023 TECHNIQUE: All CT scans are performed using dose optimization technique as appropriate and may inclu de automated exposure control or mA/KV adjustment according to patient size. FINDINGS: No intracranial hemorrhage, hydrocephalus or extra-axial fluid collection.No areas of brai n edema or evidence of midline shift. The paranasal sinuses and mastoids are clear. The calvarium is intact. IMPRESSION: No acute intracranial abnormality.
[2024-01-22 13:13] LABS: Albumin 3.2 g/dL (3.4-5.0); Albumin/Globulin Ratio 1.1 (1.1-1.8); Anion Gap 17.7 mEq/L (5.0-15.0); Bilirubin Direct 0.4 mg/dL (0-0.2); Bilirubin Indirect, Calculated 0.5 mg/dL (0.2-0.8); Bilirubin Total 0.9 mg/dL (0.2-1.0); Globulin 2.9 g/dL (2.3-3.5); Magnesium 2.3 mg/dL (1.6-2.4); Potassium 3.7 mEq/L (3.5-5.1); Protein, Total 6.1 g/dL (6.4-8.2); Troponin High Sensitivity 4.9 pg/mL (<58.9)
--- NOTE | 2024-01-22 14:56 | EDPHYS ---
Physician Documentation [facility] Name: Janice Bosch Age: 58 yrs Sex: Female : 1965 Arrival Date: 01/22/2024 Time: 12:03 Bed 6 Private MD: ED Physician Dillon Arzola HPI: 01/21 12:45 This 58 yrs old Female presents to ER via EMS with complaints of Nausea. rt 12:46 Patient with history of vertigo presents to the ED with nausea, vomiting, vertigo for rt the past 3 days. States is worse than her typical vertigo, not adequately relieved with meclizine. Denies abdominal pain, acute complaints, symptoms are moderate severity, no other aggravating or elevating factors.. Historical: - Allergies: 12:08 Morphine; ld1 12:08 Reglan; ld1 12:08 Requip; ld1 12:06 Morphine; bp 12:06 Reglan; bp 12:06 Requip; bp - Home Meds: 12:06 clonazepam 0.5 mg Oral tab [Active]; diclofenac sodium 50 mg Oral tablet 2 times per bp day [Active]; gabapentin 600 mg Oral tab 2 tabs [Active]; Hydroxyzine 50 mg [Active]; levothyroxine 50 mcg tablet daily [Active]; lorazepam 1 mg Oral tablet as needed [Active]; [place] Carbonate Oral [Active]; meclizine 25 mg Oral tablet as needed [Active]; olanzapine 5 mg Oral tablet daily [Active]; ondansetron 4 mg Oral Tablet as needed [Active]; propranolol 20 mg Oral tablet nightly [Active]; Protonix 40 mg Oral TbEC once daily [Active]; Prozac 40 mg Oral cap 1 cap once daily [Active]; tizanidine 4 mg Oral capsule every day at bedtime [Active]; OxyContin Oral as needed [Active]; zolpidem 12.5 mg Oral Tablet every day at bedtime [Active]; ziprasidone HCl 60 mg Oral cap at bedtime [Active]; Zanaflex 4 mg Oral tab 2 tabs nightly [Active]; venlafaxine 225 mg Oral Tablet daily [Active]; - PMHx: 12:08 Bipolar disorder; bowel obstruction; Hypertension; chronic back pain; Migraines; ibs; ld1 Fibromyalgia; 12:06 Migraines; ibs; Hypertension; Fibromyalgia; chronic back pain; Bipolar disorder; bowel bp obstruction; - PSHx: 12:08 Cholecystectomy; section; Appendectomy; Gastric Bypass; hysterectomy; ld1 12:06 hysterectomy; Cholecystectomy; Gastric Bypass; section; Appendectomy; bp - Immunization history:: Adult Immunizations up to date, Adult Immunizations up to date. - Infectious Disease History:: Denies. Denies. - Social history:: Smoking status: Patient denies any tobacco usage or history of. Smoking status: Patient denies any tobacco usage or history of. - Family history:: not pertinent. ROS: 12:46 Constitutional: Negative for fever, chills, and weight loss, Cardiovascular: Negative rt for chest pain, palpitations, and edema, Respiratory: Negative for shortness of breath, cough, wheezing, and pleuritic chest pain, MS/Extremity: Negative for injury and deformity, Skin: Negative for injury, rash, and discoloration, Psych: Negative for depression, anxiety, suicide ideation, homicidal ideation, and hallucinations, 12:46 Abdomen/GI: Positive for nausea and vomiting, Negative for abdominal pain, 12:46 Neuro: Positive for dizziness, Negative for altered mental status, Exam: 12:46 Constitutional: This is a well developed, well nourished patient who is awake, alert, rt and in no acute distress. Head/Face: Normocephalic, atraumatic. Chest/axilla: Normal chest wall appearance and motion. Nontender with no deformity. No lesions are appreciated. Cardiovascular: Regular rate and rhythm with a normal S1 and S2. No gallops, murmurs, or rubs. Normal PMI, no JVD. No pulse deficits. Respiratory: Lungs have equal breath sounds bilaterally, clear to auscultation and percussion. No rales, rhonchi or wheezes noted. No increased work of breathing, no retractions or nasal flaring. Abdomen/GI: Soft, non-tender, with normal bowel sounds. No distension or tympany. No guarding or rebound. No evidence of tenderness throughout. Skin: Warm, dry with normal turgor. Normal color with no rashes, no lesions, and no evidence of cellulitis. MS/ Extremity: Pulses equal, no cyanosis. Neurovascular intact. Full, normal range of motion. 12:46 Eyes: Extraocular muscles are intact, 3-4 beats of left going nystagmus. 12:46 Neuro: Strength and sensation intact in upper and lower extremities, speech normal, no cranial nerve deficits, 12:46 ECG was reviewed by the Attending Physician. rt Vital Signs: 12:05 BP 110 / 72; Pulse 72; Resp 18; Temp 98; Pulse Ox 100% ; bp 12:32 BP 107 / 68; Pulse 69; Resp 18; Pulse Ox 100% on R/A; ld1 14:00 BP 117 / 65; Pulse 66; Resp 12; Pulse Ox 99% ; iw 15:00 BP 130 / 70; Pulse 68; Resp 13; Pulse Ox 100% ; bp 16:00 BP 136 / 61; Pulse 66; Resp 13; Pulse Ox 100% ; bp MDM: 12:12 Patient medically screened. rt 19:32 Differential diagnosis:. rt 19:32 Differential diagnosis: Peripheral vertigo, central vertigo, intractable nausea rt vomiting. Data reviewed: vital signs, nurses notes, lab test result(s), EKG, radiologic studies. Consideration of Admission/Observation Patient was admitted/placed on observation. Management of patient was discussed with the following: Hospitalist: Agrees to admit. I considered the following discharge prescriptions or medication management in the emergency department Medications were administered in the Emergency Department. See MAR. Independent interpretation of the following test(s) in the Emergency Department CT Scan: My interpretation is No intracranial hemorrhage seen on interpretation of CT scan images. Care significantly affected by the following chronic conditions: Hypertension. Counseling: I had a detailed discussion with the patient and/or guardian regarding the historical points, exam findings, and any diagnostic results supporting the discharge/admit diagnosis, lab results, radiology results, the need for further work-up and treatment in the hospital. Response to treatment: the patient's symptoms have mildly improved after treatment. 01/21 12:21 Order name: Basic Metabolic Panel; Complete Time: 13:18 rt 01/21 12:21 Order name: CBC with Diff; Complete Time: 13:18 rt 01/21 12:21 Order name: LFT's; Complete Time: 13:18 rt 01/21 12:21 Order name: Magnesium; Complete Time: 13:18 rt 01/21 12:21 Order name: Troponin HS; Complete Time: 13:18 rt 01/21 16:13 Order name: Urinalysis w/ reflexes EDMS 01/21 16:13 Order name: CBC with Automated Diff EDMS 01/21 16:13 Order name: CBC with Automated Diff EDMS 01/21 16:13 Order name: Comprehensive Metabolic Panel EDMS 01/21 16:13 Order name: Comprehensive Metabolic Panel EDMS 01/21 16:13 Order name: Lipid Profile EDMS 01/21 16:13 Order name: Lipid Profile EDMS 01/21 16:13 Order name: Magnesium EDMS 01/21 16:13 Order name: Magnesium EDMS 01/21 16:13 Order name: Phosphorus EDMS 01/21 16:13 Order name: Phosphorus EDMS 01/21 16:13 Order name: Troponin High Sensitivity EDMS 01/21 16:13 Order name: Troponin High Sensitivity EDMS 01/21 16:13 Order name: Troponin High Sensitivity EDMS 01/21 12:21 Order name: CT Head Brain wo Cont; Complete Time: 12:58 rt 01/21 12:21 Order name: EKG; Complete Time: 12:22 rt 01/21 16:13 Order name: CONS Physician Consult EDMD 01/21 12:21 Order name: Cardiac monitoring; Complete Time: 12:40 rt 01/21 12:21 Order name: EKG - Nurse/Tech; Complete Time: 12:40 rt 01/21 12:21 Order name: IV Saline Lock; Complete Time: 12:38 rt 01/21 12:21 Order name: Labs collected and sent; Complete Time: 12:38 rt 01/21 12:21 Order name: O2 Per Protocol; Complete Time: 12:24 rt 01/21 12:21 Order name: O2 Sat Monitoring; Complete Time: 12:24 rt EC:46 Rate is 69 beats/min. Rhythm is regular, Normal Sinus Rhythm with No ectopy. Left axis rt deviation noted. KS interval is normal. QRS interval is normal. QT interval is normal. No Q waves. T waves are Normal. No ST changes noted. Interpreted by me. Administered Medications: 12:38 Drug: Meclizine PO 50 mg PO once Route: PO; ld1 16:33 Follow up: Response: No adverse reaction bp 12:38 Drug: Diazepam IVP 10 mg IVP once Route: IVP; Site: right hand; ld1 16:32 Follow up: Response: No adverse reaction bp 12:38 Drug: Ondansetron IVP 4 mg IVP once; over 2 minutes Route: IVP; Site: right hand; ld1 16:32 Follow up: Response: No adverse reaction bp 12:38 Drug: NS 0.9% IV 1000 ml IV at 1 bolus Per protocol; 1000 mL bolus Route: IV; Rate: 1 ld1 bolus; Site: right hand; 16:32 Follow up: IV Status: Completed infusion; IV Intake: 1000ml bp Disposition Summary: 01/22/24 14:56 Hospitalization Ordered Notes: Hospitalization Status: Observation rt Provider: Prashanth Ziegler rt Location: Telemetry/MedSurg (observation) rt Condition: Fair rt Problem: new rt Symptoms: have improved rt Bed/Room Type: Standard rt Room Assignment: 404(01/22/24 16:22) hb Diagnosis - Intractable nausea and vomiting rt - Intractable vertigo rt - Dehydration rt - Transaminitis rt Forms: - Medication Reconciliation Form rt - SBAR form rt - Leadership Thank You Letter rt Signatures: Dispatcher [employer] Ashley Cisneros RN RN hb Zaki Lozano RN RN bp Indira Brown RN RN ld1 Dillon Arzola MD MD rt Corrections: (The following items were deleted from the chart) 16: 14:56 rt hb
--- NOTE | 2024-01-22 14:56 | ER ---
Nurse's Notes [facility] Name: Janice Bosch Age: 58 yrs Sex: Female : 1965 Arrival Date: 01/22/2024 Time: 12:03 Bed 6 Private MD: Diagnosis: Intractable nausea and vomiting;Intractable vertigo;Dehydration;Transaminitis Presentation: 01/21 12:05 Chief complaint: EMS states: N/V x3 DAYS. Coronavirus screen: At this time, the client bp does not indicate any symptoms associated with coronavirus-19. Ebola Screen: No symptoms or risks identified at this time. Initial Sepsis Screen: Does the patient meet any 2 criteria? No. Patient's initial sepsis screen is negative. Does the patient have a suspected source of infection? No. Patient's initial sepsis screen is negative. Risk Assessment: Do you want to hurt yourself or someone else? Patient reports no desire to harm self or others. Onset of symptoms is unknown. 12:05 Method Of Arrival: EMS: [facility] bp 12:05 Acuity: BONITA 3 bp Triage Assessment: 12:06 General: Appears distressed, Behavior is cooperative, appropriate for age, agitated, bp anxious. Pain: Denies pain. GI: Reports nausea. Historical: - Allergies: 12:08 Morphine; ld1 12:08 Reglan; ld1 12:08 Requip; ld1 12:06 Morphine; bp 12:06 Reglan; bp 12:06 Requip; bp - Home Meds: 12:06 clonazepam 0.5 mg Oral tab [Active]; diclofenac sodium 50 mg Oral tablet 2 times per bp day [Active]; gabapentin 600 mg Oral tab 2 tabs [Active]; Hydroxyzine 50 mg [Active]; levothyroxine 50 mcg tablet daily [Active]; lorazepam 1 mg Oral tablet as needed [Active]; [place] Carbonate Oral [Active]; meclizine 25 mg Oral tablet as needed [Active]; olanzapine 5 mg Oral tablet daily [Active]; ondansetron 4 mg Oral Tablet as needed [Active]; propranolol 20 mg Oral tablet nightly [Active]; Protonix 40 mg Oral TbEC once daily [Active]; Prozac 40 mg Oral cap 1 cap once daily [Active]; tizanidine 4 mg Oral capsule every day at bedtime [Active]; OxyContin Oral as needed [Active]; zolpidem 12.5 mg Oral Tablet every day at bedtime [Active]; ziprasidone HCl 60 mg Oral cap at bedtime [Active]; Zanaflex 4 mg Oral tab 2 tabs nightly [Active]; venlafaxine 225 mg Oral Tablet daily [Active]; - PMHx: 12:08 Bipolar disorder; bowel obstruction; Hypertension; chronic back pain; Migraines; ibs; ld1 Fibromyalgia; 12:06 Migraines; ibs; Hypertension; Fibromyalgia; chronic back pain; Bipolar disorder; bowel bp obstruction; - PSHx: 12:08 Cholecystectomy; section; Appendectomy; Gastric Bypass; hysterectomy; ld1 12:06 hysterectomy; Cholecystectomy; Gastric Bypass; section; Appendectomy; bp - Immunization history:: Adult Immunizations up to date, Adult Immunizations up to date. - Infectious Disease History:: Denies. Denies. - Social history:: Smoking status: Patient denies any tobacco usage or history of. Smoking status: Patient denies any tobacco usage or history of. - Family history:: not pertinent. Screenin:[address] [facility] ED Fall Risk Assessment (Adult) History of falling in the last 3 months, ld1 including since admission No falls in past 3 months (0 pts). Abuse screen: Denies threats or abuse. Denies injuries from another. Nutritional screening: No deficits noted. Tuberculosis screening: No symptoms or risk factors identified. Assessment: 12:32 General: Appears in no apparent distress. comfortable, Behavior is calm, cooperative, ld1 appropriate for age. Pain: Denies pain. Neuro: Level of Consciousness is awake, alert, obeys commands, Oriented to person, place, time, situation. Cardiovascular: Capillary refill < 3 seconds Patient's skin is warm and dry. Respiratory: Airway is patent Respiratory effort is even, unlabored. GI: Abdomen is flat, non-distended. GI: Reports nausea. : No signs and/or symptoms were reported regarding the genitourinary system. EENT: No signs and/or symptoms were reported regarding the EENT system. Derm: No signs and/or symptoms reported regarding the dermatologic system. Musculoskeletal: No signs and/or symptoms reported regarding the musculoskeletal system. 14:01 Reassessment: Patient appears in no apparent distress at this time. Patient is alert, iw oriented x 3, equal unlabored respirations, skin warm/dry/pink. 16:30 Reassessment: REPORT FAXED TO 4TH. bp Vital Signs: 12:05 BP 110 / 72; Pulse 72; Resp 18; Temp 98; Pulse Ox 100% ; bp 12:32 BP 107 / 68; Pulse 69; Resp 18; Pulse Ox 100% on R/A; ld1 14:00 BP 117 / 65; Pulse 66; Resp 12; Pulse Ox 99% ; iw 15:00 BP 130 / 70; Pulse 68; Resp 13; Pulse Ox 100% ; bp 16:00 BP 136 / 61; Pulse 66; Resp 13; Pulse Ox 100% ; bp ED Course: 12:04 Patient arrived in ED. bp 12:05 Triage completed. bp 12:06 Arm band placed on. bp 12:09 Dillon Arzola MD is Attending Physician. rt 12:23 Zaki Lozano, LEONID is Primary Nurse. bp 12:32 Patient has correct armband on for positive identification. Placed in gown. Bed in low ld1 position. Call light in reach. Side rails up X2. electronic device monitor on. Pulse ox on. NIBP on. Door closed. Noise minimized. Warm blanket given. 12:32 No provider procedures requiring assistance completed. ld1 12:38 Inserted saline lock: 24 gauge in right hand, using aseptic technique. Blood collected. ld1 12:40 CT Head Brain wo Cont Sent. bp 12:40 Basic Metabolic Panel Sent. bp 12:40 CBC with Diff Sent. bp 12:40 LFT's Sent. bp 12:40 Magnesium Sent. bp 12:40 Troponin HS Sent. bp 12:49 CT Head Brain wo Cont In Process Unspecified. EDMS 14:55 Prashanth Ziegler is Hospitalizing Provider. rt 16:33 Provided Education on: N/A. bp 16:33 Patient admitted, IV remains in place. bp Administered Medications: 12:38 Drug: Meclizine PO 50 mg PO once Route: PO; ld1 16:33 Follow up: Response: No adverse reaction bp 12:38 Drug: Diazepam IVP 10 mg IVP once Route: IVP; Site: right hand; ld1 16:32 Follow up: Response: No adverse reaction bp 12:38 Drug: Ondansetron IVP 4 mg IVP once; over 2 minutes Route: IVP; Site: right hand; ld1 16:32 Follow up: Response: No adverse reaction bp 12:38 Drug: NS 0.9% IV 1000 ml IV at 1 bolus Per protocol; 1000 mL bolus Route: IV; Rate: 1 ld1 bolus; Site: right hand; 16:32 Follow up: IV Status: Completed infusion; IV Intake: 1000ml bp Medication: 12:32 VIS not applicable for this client. ld1 Intake: 16:32 IV: 1000ml; Total: 1000ml. bp Outcome: 14:56 Decision to Hospitalize by Provider. rt 16:30 Condition: stable bp 16:30 Instructed on the need for admit, 17:00 Patient left the ED. bp Signatures: Dispatcher [employer] EDLesley Crews RN RN iw Zaki Lozano RN RN bp Indira Brown RN RN ld1 Dillon Arzola MD MD rt
--- NOTE | 2024-01-22 15:43 | P.HP ---
Certification for Inpatient Patient admitted to: Observation With expected LOS: <2 Midnights Patient will require the following post-hospital care: None Practitioner: I am a practitioner with admitting privileges, knowledge of patient current condition, hospital course, and medical plan of care. Services: Services provided to patient in accordance with Admission requirements found in Title 42 Section 412.3 of the Code of Federal Regulations Patient History Date of Service: 01/22/24 Reason for admission: intractable veritgo History of Present Illness: Janice Bosch is a 58 year old female with Pmhx vertigo, Bipolar disorder, bowel obstruction, Hypertension, chronic back pain, IBS, Migraines, Hypertension, Fibromyalgia, Bipolar disorder, and bowel obstruction, who presents to the ED with chief complaint of nausea, vomiting, and vertigo for the past 3 days. She reports this vertigo episode is worse than her typical vertigo. She sees Dr. Pantoja regularly for vertigo and he will be consulted for medication adjustments. Initial vitals BP 110 / 72; Pulse 72; Resp 18; Temp 98; Pulse Ox 100% Laboratory evaluation sodium 130, CO2 15, BUN and creatinine 12/1.13, GFR 56, transaminitis with AST 428, ALT 95, alk phos 544 EKG Rate is 69 beats/min. Rhythm is regular, Normal Sinus Rhythm with No ectopy. Left axis deviation noted. VA interval is normal. QRS interval is normal. QT interval is normal. No Q waves. T waves are Normal. No ST changes noted. Head CT reports "No acute intracranial abnormality." Janice will be admitted to hospitalist service for further evaluation and treatment. Allergies metoclopramide HCl [From Reglan] Allergy (Mild, Verified 01/05/23 08:48) Hives/Rash ropinirole HCl [From Requip] Allergy (Mild, Verified 01/05/23 08:48) Nausea/Vomiting Home Medications: Tizanidine [Zanaflex*] 4 mg PO BEDTIME PRN PRN 07/21/20 LORazepam [Ativan*] 1 mg PO BID PRN 11/17/22 Venlafaxine HCl [Effexor Xr] 225 mg PO DAILY 11/17/22 Levothyroxine [Synthroid*] 50 mcg PO [id number] 01/04/23 Pantoprazole [Protonix Tab*] 40 mg PO BEDTIME 01/04/23 Propranolol HCl 20 mg PO BID 01/04/23 hydrOXYzine HCL [Atarax] 50 mg PO BIDP PRN 01/04/23 Cholecalciferol (Vitamin D3) [Vitamin D3] 5,000 unit PO DAILY 01/05/23 Hydrocodone 10/APAP 325 [[place] 10/325*] 1 tab PO Q6HP PRN 04/13/23 Meclizine HCl [Antivert] 25 mg PO Q8HP PRN 04/13/23 Docusate [Colace Cap*] 100 mg PO BID 04/24/23 Mecobalamin [B12 Active] 3,000 mcg PO DAILY 04/24/23 Ped Multivit 43/Iron Fumarate [Flintstones Complete Chew Tab] 1 tab PO DAILY 04/24/23 Gabapentin 300 mg PO TID #90 tab 04/26/23 Ziprasidone [Geodon*] 60 mg PO BEDTIME #90 cap 04/26/23 Polyethylene Glycol 3350 [Miralax] 17 gm PO DAILY #30 packet 07/22/23 Lactulose 20 gm PO BID 08/23/23 Zolpidem Tartrate [Ambien] 10 mg PO BEDTIME PRN 08/23/23 Amiloride HCl 2.5 mg PO DAILY 30 Days #30 08/27/23 Na Bicarb Tab [Sodium Bicarb 325 MG Tab*] 650 mg PO DAILY 30 Days #30 tab 08/27/23 Potassium Oral Tab [Klor-Con 10 mEq Tab*] 20 meq PO DAILY 30 Days #30 tab 08/27/23 - Past Medical/Surgical History Diabetic: No -: Intestinal blockage -: Bipolar disorder, , depression -: Fibromyalgia -: Hypertension -: Migraine headache -: IBS -: Anxiety disorder -: Insomnia -: bulging disc -: vertigo -: 2 csec -: hyst -: appy -: anderson -: gastric bypass -: L fractured wrist w/ plates and screws - Family History Mother -: Heart disease, Cancer Notes: cardiac stent. lung cancer - Social History Smoking Status: Never smoker Alcohol use: No CD- Drugs: No Caffeine use: Yes Review of Systems Gastrointestinal: Nausea, Vomiting Integumentary: Other (dizziness) Physical Examination - Physical Exam General: Alert, In no apparent distress, Oriented x3, Other (uncomfortable) HEENT: Atraumatic, Normocephalic, Other (irritated sclera) Neck: Supple, JVD not distended Respiratory: Clear to auscultation bilaterally, Normal air movement Cardiovascular: No edema, Normal pulses, Regular rate/rhythm, Normal S1 S2 Capillary refill: <2 Seconds Gastrointestinal: Normal bowel sounds, Soft and benign Musculoskeletal: No swelling Integumentary: No rashes Neurological: Normal speech, Normal tone - Studies Laboratory Data (last 24 hrs) 01/22/24 01/22/24 12:40 12:40 WBC 6.70 Hgb 14.2 Hct 43.5 Plt Count 472 H Sodium 130 L Potassium 3.7 BUN 12 Creatinine 1.13 H Glucose 87 Magnesium 2.3 Total Bilirubin 0.9 AST 420 H ALT 95 H Alkaline Phosphatase 544 H Assessment and Plan - Plan Assessment and plan Intractable vertigo causing frequent falls History of migraines -Head CT reports "No acute intracranial abnormality." -EKG Rate is 69 beats/min. Rhythm is regular, Normal Sinus Rhythm with No ectopy. Left axis deviation noted. VA interval is normal. QRS interval is normal. QT interval is normal. No Q waves. T waves are Normal. No ST changes noted. -CO2 15, troponin 4.9 with serial pending -Continue home medication -Clear liquid diet -Zofran -Consult Dr. Pantoja for medication adjustments fall precaution Transaminitis Hyponatremia -AST 428, ALT 95, alk phos 544 -Sodium 130 -IV fluids given in the ED -Gentle IV fluids on the floor -Monitor labs in the a.m. including lipid panel -CT abd/pelvis ordered History of bipolar History of chronic back pain History of bowel obstruction/IBS History of fibromyalgia History hypertension -Continue home medication -supportive care DVT PPx heparin Full code LOS 2 days Discharge Plan: Home Plan to discharge in: 48 Hours - Advance Directives Does patient have a Living Will: No Does patient have a Durable POA for Healthcare: No
[2024-01-22] MEDS ORDERED: ACETAMINOPHEN 500 MG TAB PO PRN (16:04)
[2024-01-22 17:52] VITALS: BMI 19.2
--- NOTE | 2024-01-22 18:06 | RAD REPORT ---
EXAM DESCRIPTION: CTAbdomen Pelvis Wo Contrast - 01/22/2024 5:39 pm CLINICAL HISTORY: elevated liver enzymes COMPARISON: Abdomen Pelvis W Contrast dated 08/23/2023; Abdomen Pelvis W Contrast dated 07/19/20; Abdomen Pelvis W Contrast dated 04/28/2023; Abdomen Pelvis W Contrast dated 06/25/2019 TECHNIQUE: CT of the abdomen and pelvis was performed. All CT scans are performed using dose optimization technique as appropriate and may include automated exposure control or mA/KV adjustment according to patient size. FINDINGS: Lower chest: No acute abnormality. Liver: Hepatic steatosis. No focal mass. Mild intrahepatic biliary duct dilatation. Biliary: Cholecystectomy. Extrahepatic biliary duct dilatation may be related to the postcholecystect [place] state. Common bile duct measures 11 millimeters. This is similar. Stomach: Gastric bypass. Duodenum: No significant focal abnormality. Pancreas: No significant abnormality. Spleen: No significant abnormality. Adrenal: No suspicious lesions. Kidney/ureter: No hydronephrosis. No renal calculi. Retroperitoneum: No retroperitoneal adenopathy. Vascular: No aneurysm. Bowel: Large volume of formed stool within the ascending and proximal transverse colon.. Peritoneum: No ascites or free air. Bladder: Distended bladder. Reproductive: Hysterectomy. Bones: No acute fracture. Grade 2 anterolisthesis of L4 on L5 . Other: n/a IMPRESSION: 1. Cholecystectomy with similar intra and extrahepatic biliary duct dilatation compared 08/23/2023. No new findings to explain reported elevated liver enzymes. MRCP/ERCP could further evalu ate biliary ductal dilatation if clinically indicated. 2. Large volume of stool in the ascending and proximal transverse colon. No bowel obstruction.
[2024-01-22] MEDS: NA CHLORIDE 0.9% 1,000 ML IV SCH (19:23)
[2024-01-22] MEDS: MECLIZINE HCL 12.5 MG TAB PO SCH (19:25)
[2024-01-22] MEDS: HEPARIN 5000 UNIT/ML 1 ML VIAL SQ SCH (19:26)
[2024-01-22] MEDS ORDERED: HYDROCODONE/APAP 10/325 TAB PO PRN (20:20)
[2024-01-22 20:45] LABS: Sqamous Epithelial <5 /HPF (None Seen); Urine Bacteria <20 /HPF (<20); Urine Microscopic Reflex YN ORDER UMIC; Urine RBC <5 /HPF (None Seen); Urine WBC <5 /HPF (<5)
[2024-01-22 20:46] LABS: Specific Gravity 1.008 (1.005-1.030); Urine Bilirubin NEGATIVE (Negative); Urine Blood Negative (Negative); Urine Clarity Turbid (Clear); Urine Color Light-Yellow (Yellow); Urine Glucose NEGATIVE (Negative); Urine Ketones 2+ (Negative); Urine Nitrite NEGATIVE (Negative); Urine Protein NEGATIVE (Negative); Urine Urobilinogen Normal (Normal)
[2024-01-22] MEDS: MORPHINE 2 MG/ML SYR IV PRN (20:56)
[2024-01-23] MEDS: ONDANSETRON 4 MG/2 ML VIAL IV PRN ×2 (00:10→19:04)
[2024-01-23 05:35] LABS: Absolute Eosinophils 0.1 K/uL (0-0.5); Absolute Lymphocytes (CBC) 1.5 K/uL (0.7-4.9); Absolute Monocytes 0.7 K/uL (0.1-1.3); Absolute Neutrophil 4.3 K/uL (1.8-8.0); Basophils % 0.3 % (0-1.3); Eosinophils % 0.8 % (0-4.4); Hematocrit 40.2 % (36.0-45.0); Hemoglobin 13.1 g/dL (12.0-15.0); Lymphocytes % 22.2 % (15.3-44.8); MCH 30.8 pg (27.0-35.0); MCHC 32.6 g/dL (32.0-36.0); MCV 94.3 fL (80-100); MPV 7.4 fL (7.6-11.3); Monocytes % 10.8 % (3.3-12.3); Neutrophils % 65.9 % (41.7-73.7); Nucleated Red Blood Cells % 0.1 % (0-0); Platelets 443 thou/uL (152-406); RBC Red Blood Cell Count 4.26 M/uL (3.86-4.86); Red Cell Distribution Width 16.8 % (12.1-15.2)
[2024-01-23 06:01] LABS: Albumin 2.9 g/dL (3.4-5.0); Albumin/Globulin Ratio 1.1 (1.1-1.8); Anion Gap 16.3 mEq/L (5.0-15.0); Bilirubin Total 0.6 mg/dL (0.2-1.0); Globulin 2.6 g/dL (2.3-3.5); Magnesium 2.1 mg/dL (1.6-2.4); Phosphorus 3.1 mg/dL (2.5-4.9); Potassium 3.3 mEq/L (3.5-5.1); Protein, Total 5.5 g/dL (6.4-8.2)
--- NOTE | 2024-01-23 06:20 | P.PN ---
Date of Service: 01/23/24 Subjective Vertigo is much better this morning Increased nausea and excessive abdominal pain likely due to constipation per CT abdomen pelvis ROS 10 point ROS as noted above, otherwise negative Physical Exam General: AAOx3, acute distress, Other (uncomfortable) HEENT: Atraumatic, Normocephalic, Other (irritated sclera) Neck: Supple, JVD not distended Respiratory: Clear to auscultation bilaterally, Normal air movement Cardiovascular: No edema, Normal pulses, RRR, Normal S1 S2 Capillary refill: <2 Seconds Gastrointestinal: Hypoactive bowel sounds, abdominal tenderness to palpation Musculoskeletal: No swelling Integumentary: No rashes Neurological: Normal speech, Normal tone Vitals Reviewed Problem list Intractable vertigo causing frequent falls History of migraines Metobolic acidosis Hypokalemia Transaminitis Hyponatremia Constipation History of bipolar History of chronic back pain History of bowel obstruction/IBS History of fibromyalgia History hypertension Assessment and Plan Intractable vertigo causing frequent falls History of migraines -Head CT reports "No acute intracranial abnormality." -EKG Rate is 69 beats/min. Rhythm is regular, Normal Sinus Rhythm with No ectopy. Left axis deviation noted. ND interval is normal. QRS interval is normal. QT interval is normal. No Q waves. T waves are Normal. No ST changes noted. -troponin 4.9/6.1/12.7 -Continue home medication -Clear liquid diet -Zofran -Consult Dr. Pantoja for medication adjustments -fall precaution Metobolic acidosis Hypokalemia -CO2 13, K 3.3 -Na bicarb gtt -Replace potassium Transaminitis Hyponatremia Constipation -AST 125, ALT 80, alk phos 512 -Sodium 136 -IV fluids given in the ED -Gentle IV fluids on the floor -Monitor labs in the a.m. including lipid panel -CT abd/pelvis reports "1. Cholecystectomy with similar intra and extrahepatic biliary duct dilatation compared 08/23/2023. No new findings to explain reported elevated liver enzymes. MRCP/ERCP could further evaluate biliary ductal dilatation if clinically indicated.2. Large volume of stool in the ascending and proximal transverse colon. No bowel obstruction." -Glycerin suppository History of bipolar History of chronic back pain History of bowel obstruction/IBS History of fibromyalgia History hypertension -Continue home medication -supportive care DVT PPx heparin Full code LOS 2 days <Tamra Redmond - Last Filed: 01/23/24 10:24> Patient seen and examined. Plan of care discussed with Ms. Redmond. Patient with intractable nausea, intractable vertigo. Metabolic acidosis is worse. Patient suspected to have type I/II renal tubular acidosis, etiology is unclear. Nephrology consulted to assist with management. Patient's symptoms likely related to metabolic acidosis. IV bicarb replacement Replace potassium IV. Symptom management-antiemetics, meclizine. <eleazar seth - Last Filed: 01/23/24 12:40>
[2024-01-23] MEDS: D5W 1,000 ML with NA BICARB 8.4% 150 MEQ IV SCH ×2 (07:00→08:03)
[2024-01-23] MEDS: KCL 20 MEQ/100 mL IVPB 20 MEQ/100 ML BAG IV SCH (08:03)
[2024-01-23] MEDS: GLYCERIN ADULT SUPP PR ONE (11:12)
--- NOTE | 2024-01-23 11:40 | P.CNS ---
Date of Consult: 01/23/24 Reason for Consult: Acidosis/ Hypokalemia Requesting Physician: eleazar seth Chief Complaint: intractable veritgo History of Present Illness: Janice Bosch is a 58 year old female with Pmhx vertigo, Bipolar disorder, bowel obstruction, Hypertension, chronic back pain, IBS, Migraines, Hypertension, Fibromyalgia, Bipolar disorder, and bowel obstruction, who presents to the ED with chief complaint of nausea, vomiting, and vertigo for the past 3 days. She reports this vertigo episode is worse than her typical vertigo. She sees Dr. Pantoja regularly for vertigo and he will be consulted for medication adjustments. Initial vitals BP 110 / 72; Pulse 72; Resp 18; Temp 98; Pulse Ox 100% Laboratory evaluation sodium 130, CO2 15, BUN and creatinine 09/02.13, GFR 56, transaminitis with AST 428, ALT 95, alk phos 544 12:45 This 58 yrs old Female presents to ER via EMS with complaints of Nausea. rt 12:46 Patient with history of vertigo presents to the ED with nausea, vomiting, vertigo for rt the past 3 days. States is worse than her typical vertigo, not adequately relieved with meclizine. Denies abdominal pain, acute complaints, symptoms are moderate severity, no other aggravating or elevating factors.. Allergies metoclopramide HCl [From Reglan] Allergy (Mild, Verified 01/22/24 17:21) Hives/Rash ropinirole HCl [From Requip] Allergy (Mild, Verified 01/22/24 17:21) Nausea/Vomiting Home medications list reviewed: Yes Home Medications: Tizanidine [Zanaflex*] 4 mg PO TID 07/21/20 LORazepam [Ativan*] 1 mg PO BID PRN 11/17/22 Levothyroxine [Synthroid*] 50 mcg PO [id number] 01/04/23 Pantoprazole [Protonix Tab*] 40 mg PO BEDTIME 01/04/23 Propranolol HCl 20 mg PO BID 01/04/23 Cholecalciferol (Vitamin D3) [Vitamin D3] 5,000 unit PO DAILY 01/05/23 Hydrocodone 10/APAP 325 [[place] 10/325*] 1 tab PO Q6HP PRN 04/13/23 Meclizine HCl [Antivert] 25 mg PO Q8HP PRN 04/13/23 Docusate [Colace Cap*] 100 mg PO BID 04/24/23 Mecobalamin [B12 Active] 3,000 mcg PO DAILY 04/24/23 Gabapentin 300 mg PO TID #90 tab 04/26/23 Polyethylene Glycol 3350 [Miralax] 17 gm PO DAILY #30 packet 07/22/23 Lactulose 20 gm PO BID 08/23/23 Zolpidem Tartrate [Ambien] 10 mg PO BEDTIME PRN 08/23/23 Amiloride HCl 2.5 mg PO DAILY 30 Days #30 08/27/23 Na Bicarb Tab [Sodium Bicarb 325 MG Tab*] 650 mg PO DAILY 30 Days #30 tab 08/27/23 Venlafaxine HCl [Venlafaxine HCl ER] 225 mg PO DAILY 01/22/24 - Past Medical/Surgical History Diabetic: No -: Intestinal blockage -: Bipolar disorder, , depression -: Fibromyalgia -: Hypertension -: Migraine headache -: IBS -: Anxiety disorder -: Insomnia -: bulging disc -: vertigo -: 2 csec -: hyst -: appy -: andesron -: gastric bypass -: L fractured wrist w/ plates and screws - Family History Mother Medical History: Heart disease, Cancer Notes: cardiac stent. lung cancer - Social History Smoking Status: Unknown if ever smoked Alcohol use: No CD- Drugs: No Caffeine use: Yes Place of Residence: Home Review of Systems 10-point ROS is otherwise unremarkable General: Weakness, Malaise Gastrointestinal: Nausea, Vomiting Physical Examination Temp Pulse Resp BP Pulse Ox 98.1 F 104 H 16 139/65 100 01/23/24 08:00 01/23/24 08:00 01/23/24 11:11 01/23/24 08:00 01/23/24 11:11 General: Oriented x3, Cooperative, Moderate distress HEENT: Atraumatic Neck: Supple Respiratory: Clear to auscultation bilaterally Cardiovascular: No edema Gastrointestinal: Non-distended Musculoskeletal: No clubbing, No contractures Integumentary: No rashes, No cyanosis Neurological: Normal speech Laboratory Data (last 24 hrs) 01/22/24 01/22/24 12:40 12:40 WBC 6.70 Hgb 14.2 Hct 43.5 Plt Count 472 H Sodium 130 L Potassium 3.7 BUN 12 Creatinine 1.13 H Glucose 87 Magnesium 2.3 Total Bilirubin 0.9 AST 420 H ALT 95 H Alkaline Phosphatase 544 H Imagings Data: EXAM DESCRIPTION: CTAbdomen Pelvis Wo Contrast - 01/22/2024 5:39 pm CLINICAL HISTORY: elevated liver enzymes COMPARISON: Abdomen Pelvis W Contrast dated 08/23/2023; Abdomen Pelvis W Contrast dated 07/19/2023; Abdomen Pelvis W Contrast dated 04/28/2023; Abdomen Pelvis W Contrast dated 06/25/2019 TECHNIQUE: CT of the abdomen and pelvis was performed. All CT scans are performed using dose optimization technique as appropriate and may include automated exposure control or mA/KV adjustment according to patient size. FINDINGS: Lower chest: No acute abnormality. Liver: Hepatic steatosis. No focal mass. Mild intrahepatic biliary duct dilatation. Biliary: Cholecystectomy. Extrahepatic biliary duct dilatation may be related to the postcholecystectomy state. Common bile duct measures 11 millimeters. This is similar. Stomach: Gastric bypass. Duodenum: No significant focal abnormality. Pancreas: No significant abnormality. Spleen: No significant abnormality. Adrenal: No suspicious lesions. Kidney/ureter: No hydronephrosis. No renal calculi. Retroperitoneum: No retroperitoneal adenopathy. Vascular: No aneurysm. Bowel: Large volume of formed stool within the ascending and proximal transverse colon.. Peritoneum: No ascites or free air. Bladder: Distended bladder. Reproductive: Hysterectomy. Bones: No acute fracture. Grade 2 anterolisthesis of L4 on L5 . Other: n/a IMPRESSION: 1. Cholecystectomy with similar intra and extrahepatic biliary duct dilatation compared 08/23/2023. No new findings to explain reported elevated liver enzymes. MRCP/ERCP could further evaluate biliary ductal dilatation if clinically indicated. 2. Large volume of stool in the ascending and proximal transverse colon. No bowel obstruction. EXAM DESCRIPTION: CT - Head Brain Wo Cont - 01/22/2024 12:47 pm CLINICAL HISTORY: vertigo COMPARISON: Head angio dated 01/03/2024; Head Brain Wo Cont dated 10/18/2023 TECHNIQUE: All CT scans are performed using dose optimization technique as appropriate and may include automated exposure control or mA/KV adjustment according to patient size. FINDINGS: No intracranial hemorrhage, hydrocephalus or extra-axial fluid collection.No areas of brain edema or evidence of midline shift. The paranasal sinuses and mastoids are clear. The calvarium is intact. IMPRESSION: No acute intracranial abnormality. Conclusions/Impression: Hyponatremia, improving -Continue IVF RTA Metabolic Acidosis Hypokalemia -Continue IV bicarb -Start Amiloride -Check autoimmune abs Hypophosphatemia -Replete as ordered Transaminitis -Check autoimmune abs Intractable N/V with associated vertigo -Continue IVF -Zofran prn -Reglan X1 Case reviewed with Dr. Seth Thank you kindly for the consultation
[2024-01-23] MEDS ORDERED: SODIUM BICARB 325 MG TAB PO SCH (13:00)
[2024-01-23] MEDS: ONDANSETRON 4 MG/2 ML VIAL IV ONE (13:29)
[2024-01-23] MEDS: AMILORIDE HCL 5 MG TABLET PO SCH (13:29)
--- NOTE | 2024-01-23 14:21 | RAD REPORT ---
EXAM DESCRIPTION: MRI - Brain W/Wo Cont - 01/23/2024 2:10 pm CLINICAL HISTORY: vertigo Headache, nausea, vomiting drowsiness COMPARISON: Head Brain Wo Cont dated 01/22/2024; Brain Wo Cont dated 04/13/2023 TECHNIQUE: Multi-sequence, multiplanar MR imaging of the brain was performed with contrast. FINDINGS: No intracranial hemorrhage, hydrocephalus, or extra-axial fluid collection.Mild brain atro phy with minimal chronic microvascular and ischemic changes. No edema or shift of midline structures. No intracranial mass. DWI is negative for acute CVA. The midline structures are normally formed. Mastoid air cells and paranasal sinuses are clear. Post-contrast images show no abnormal enhancement to suggest tumor or infection. IMPRESSION: No acute CVA or other acute intracranial abnormality seen. No pathologic post-contrast enhancement suspected.
[2024-01-23 16:07] LABS: Anion Gap 17.6 mEq/L (5.0-15.0); Phosphorus 2.3 mg/dL (2.5-4.9); Potassium 3.6 mEq/L (3.5-5.1)
[2024-01-23] MEDS: DOCUSATE NA 100 MG CAP PO SCH (20:56)
[2024-01-23] MEDS: METOCLOPRAMIDE 10 MG/2mL INJ IV SCH (20:56)
[2024-01-23] MEDS: ZOLPIDEM TARTRATE 10 MG TABLET PO ONE (22:31)
[2024-01-23] MEDS: POTASSIUM PHOS IN 0.9 % NACL 15 MMOL/250 ML BAG IV ONE (22:31)
--- NOTE | 2024-01-23 23:58 | CON ---
Date of Consultation: 01/23/2024 Reason For Consultation: Intractable nausea and vomiting. History Of Present Illness: Ms. Bosch is a 58-year-old patient, whom I have seen in the past in clin ic for vertigo with occasional nausea and vomiting, who comes to [facility] on 01/22/2024 wi th severe nausea, vomiting, bowel obstruction, lack of bowel movement, and worsening abdominal pain. She has multiple medical problems besides what is presented including bipolar disorder, chronic back pain, migraines, hypertension, fibromyalgia. Her workup includes the liver function studies showing significant elevations in AST, ALT, and alkaline phosphatase along with a large amount of stool in h er colon. She has been refractory to Zofran, increased to 8 mg at least twice daily. She has not nicholas d a bowel movement in an extended period of time. Brain MRI done with and without contrast shows no abnormalities. She does not have significant spinning or tilting type of vertiginous symptoms at thi s point. She has no focal neurological deficits. Her laboratory studies show no evidence of a syste deep infection. She does have significant anion gap with decreased CO2, possibly related to hypervent ilation and GI related reasons. Her AST was 420, ALT 95, and alkaline phosphatase 544 on her admissi on. Cholesterol panel unremarkable, and she was mildly dehydrated with creatinine of 1.1 on admissio n, now 0.88 after hydration. Urinalysis is essentially unremarkable except for 2+ ketones. The abdo men and pelvis CT scan did identify a large amount of retained stool in the ascending and proximal tr ansverse colon with cholecystectomy noted and similar intra and extrahepatic biliary duct dilatation compared to a study done on 08/23/2023. There is no report of new findings to explain elevated liver enzymes. Radiologist suggested MR, CT, and ERCP to further evaluate biliary dilatation. Past Medical History: As noted including intestinal blockage, fibromyalgia, hypertension, migraine, anxiety, insomnia, and vertigo. Surgical History: Hysterectomy, appendectomy, cholecystectomy, gastric bypass surgery, left wrist fr acture with plates and screws placed. Allergies: METOCLOPRAMIDE AND ROPINIROLE. Medications: Tylenol 500 mg every 6 hours as needed, [place] 10/325 every 4 hours as needed, Midamor 5 mg twice daily, Colace 100 mg twice daily, heparin 5000 units subcutaneously every 8 hours, Antivert 25 mg 4 times daily, Zofran 8 mg every 12 hours and she does have 4 mg every 4 hours as needed, morp chela 2 mg every 4 hours as needed. Family History: Noncontributory. Social History: No recent alcohol, tobacco, or IV drug use. Review of Systems: Severe nausea and vomiting. Mild dizziness. No focal weakness or numbness in the face, arm, or leg. No shortness of breath. No rash. No headache. No edema in the extremities. No difficulty with n lidia pain and no fevers and chills. Physical Examination: Vital Signs: Blood pressure 144/77, pulse 84, respiratory rate 16, temperature 97.9, oxygen saturati on 99% on room air. Weight 105 pounds, height 5 feet 2 inches, BMI 19.2. General: Ms. Bosch is lying in bed. She is in significant nausea. She received some Zofran. HEENT: She is otherwise normocephalic, atraumatic. Sclerae anicteric. Oropharynx pink and moist. Neck: Supple. Chest: Clear. Heart: Regular. Extremities: Show no significant clubbing, cyanosis, or edema. Neurological: She has no focal neurological deficits on cranial nerves, motor, coordination, or sens ory. Reflexes are symmetric. Laboratory Studies: White blood cell count 6.6, hemoglobin 13.1, platelets 443. Sodium 136, potassi um 3.6, chloride 108, carbon dioxide 14, anion gap 17.6, BUN 7, creatinine 0.88, glucose 88, calcium 7.8, magnesium 2.0, phosphorus 3.2. AST decreased from 420 to 125 today and that is over 1 day. ALT decreased from 95 to 80 and the alkaline phosphatase decreased from 544 to 512, total serum protein 5.5, albumin 2.9, total cholesterol 139, LDL cholesterol 69, HDL cholesterol 46, cholesterol-HDL rati o 3.02. Urinalysis; turbid clarity, 2+ ketones, otherwise normal, and again brain MRI with and witho ut contrast normal. Assessment: Ms. Bosch is a 58-year-old patient with likely an extracranial reason for continuous sobia sea and vomiting, potentially related to issues in the liver and constipation. She has no evidence o f a stroke, tumor, or intracranial abnormality. She has no focal deficits on her examination. She d oes not appear to have a positional vertigo issue at this point. Plan: Aggressive workup of her GI related issue. May continue Zofran at high dose. Work on Luz Marina's enema to clear stool. If need be, she will be followed up by Neurology. However, at this point, robbie burgos does not appear to have an active neurological issue contributing to her symptoms. ALICIA/EDWIN Voice ID: [id number] Report ID: [id number]
[2024-01-24 05:49] LABS: Specific Gravity 1.009 (1.005-1.030); Sqamous Epithelial <5 /HPF (None Seen); Urine Bacteria <20 /HPF (<20); Urine Bilirubin NEGATIVE (Negative); Urine Blood 1+ (Negative); Urine Clarity Extremely Turbid (Clear); Urine Color Light-Yellow (Yellow); Urine Culture Reflex Order REFLEXED; Urine Glucose NEGATIVE (Negative); Urine Ketones 2+ (Negative); Urine Micro Reflex YN NO BILL MICROSCOPIC; Urine Mucus Slight /HPF (None Seen); Urine Nitrite NEGATIVE (Negative); Urine Protein TRACE (Negative); Urine RBC <5 /HPF (None Seen); Urine Urobilinogen Normal (Normal); Urine WBC Clump Rare /HPF (None Seen)
[2024-01-24 06:43] LABS: Absolute Lymphocytes (CBC) 1.2 K/uL (0.7-4.9); Absolute Monocytes 0.6 K/uL (0.1-1.3); Absolute Neutrophil 3.7 K/uL (1.8-8.0); Basophils % 0.5 % (0-1.3); Eosinophils % 0.5 % (0-4.4); Hematocrit 35.4 % (36.0-45.0); Lymphocytes % 21.2 % (15.3-44.8); MCH 31.4 pg (27.0-35.0); MCHC 33.9 g/dL (32.0-36.0); MCV 92.7 fL (80-100); MPV 7.2 fL (7.6-11.3); Monocytes % 10.2 % (3.3-12.3); Neutrophils % 67.6 % (41.7-73.7); Nucleated Red Blood Cells % 0.3 % (0-0); Platelets 387 thou/uL (152-406); RBC Red Blood Cell Count 3.82 M/uL (3.86-4.86); Red Cell Distribution Width 16.7 % (12.1-15.2)
[2024-01-24 07:05] LABS: Albumin 2.6 g/dL (3.4-5.0); Anion Gap 8.5 mEq/L (5.0-15.0); Bilirubin Total 0.6 mg/dL (0.2-1.0); Globulin 2.5 g/dL (2.3-3.5); Phosphorus 3.1 mg/dL (2.5-4.9); Protein, Total 5.1 g/dL (6.4-8.2); Uric Acid 4.6 mg/dL (2.6-6.0)
[2024-01-24 07:06] LABS: Potassium 3.5 mEq/L (3.5-5.1)
[2024-01-24 07:37] LABS: Osmolality, Serum 284 mOsm/kg (275-300)
[2024-01-24] MEDS: POTASSIUM 25 MEQ EFFERV TAB PO ONE (09:00)
[2024-01-24] MEDS: POTASSIUM CL SA 10 MEQ TAB PO ONE (10:16)
[2024-01-24] MEDS: POLYETHYL GLY 3350 17 GM/DOSE PO ONE (10:26)
--- NOTE | 2024-01-24 12:41 | P.PN ---
Date of Service: 01/24/24 Subjective Patient reports slow improvement in her vertigo symptoms Still having symptoms when moving her head On exam noted to have significant abdominal pain-reports she feels as when she has constipation Denies having a bowel movement since he been here ROS 10 point ROS as noted above, otherwise negative Physical Exam General: AAOx3, uncomfortable HEENT: Atraumatic, Normocephalic Neck: Supple, JVD not distended Respiratory: Clear to auscultation bilaterally, Normal air movement Cardiovascular: No edema, Normal pulses, RRR, Normal S1 S2 Capillary refill: <2 Seconds Gastrointestinal: Hypoactive bowel sounds, mild generalized abdominal tenderness Musculoskeletal: No swelling Integumentary: No rashes Neurological: Normal speech, Normal tone Vitals Reviewed Problem list Intractable vertigo causing frequent falls History of migraines Metobolic acidosis Hypokalemia Transaminitis Hyponatremia Constipation History of bipolar History of chronic back pain History of bowel obstruction/IBS History of fibromyalgia History hypertension Assessment and Plan Intractable vertigo causing frequent falls History of migraines CT/MRI brain negative for acute findings Neurology following, recommended increased dose of Zofran Vertigo seems to be improving slowly PT consult Metobolic acidosis Hypokalemia Hyponatremia Acidosis improved Continue IV fluids, nephrology following Monitor chemistry daily Transaminitis LFTs continue to improve Still with lower abdominal pain, mild tenderness In the right upper quadrant/epigastric tenderness Monitor LFTs daily, low threshold for additional workup including possible MRCP Constipation Still no BM after suppository Will try MiraLAX this morning Fleets enema this afternoon if still no BM History of bipolar History of chronic back pain History of bowel obstruction/IBS History of fibromyalgia History hypertension Continue home medications DVT PPx heparin Full code LOS 2 days
[2024-01-24] MEDS: FLEET ENEMA ADULT PR ONE (14:17)
--- NOTE | 2024-01-24 21:36 | P.PN ---
Date of Service: 01/24/24 Vital Signs Temp Pulse Resp BP Pulse Ox 98.9 F 113 H 16 131/60 97 01/24/24 15:57 01/24/24 15:57 01/24/24 18:23 01/24/24 15:57 01/24/24 18:23 Medications Acetaminophen (Acetaminophen 500 Mg Tab) 500 mg PO Q4HP PRN PRN Reason: Pain scale 2-4 (Mild) Hydrocodone Bitart/Acetaminophen (Hydrocodone/Apap 10/325 Tab) 1 tab PO Q4H PRN PRN Reason: Pain scale 8-10 (Severe) Amiloride HCl (Amiloride Hcl 5 Mg Tablet) 5 mg PO BIDL [facility] Last Admin: 01/24/24 16:25 Dose: 5 mg Docusate Sodium (Docusate Na 100 Mg Cap) 100 mg PO BID [facility] Last Admin: 01/24/24 20:12 Dose: 100 mg Heparin Sodium (Porcine) (Heparin 5000 Unit/Ml 1 Ml Vial) 5,000 unit SQ Q8HR [facility] Last Admin: 01/24/24 16:25 Dose: 5,000 unit Sodium Bicarbonate 150 meq/ (Dextrose/Water) 1,150 mls @ 100 mls/hr IV .[id number] [facility] Last Admin: 01/24/24 12:20 Dose: 1,150 mls Meclizine HCl (Meclizine Hcl 12.5 Mg Tab) 25 mg PO QID [facility] Last Admin: 01/24/24 20:12 Dose: 25 mg Metoclopramide HCl (Metoclopramide 10 Mg/2ml Inj) 10 mg IV 1X [facility] Last Admin: 01/23/24 20:56 Dose: Not Given Morphine Sulfate (Morphine 2 Mg/Ml Syr) 2 mg IV Q4H PRN PRN Reason: Pain scale 8-10 (Severe) Last Admin: 01/24/24 18:23 Dose: 2 mg Ondansetron HCl (Ondansetron 4 Mg/2 Ml Vial) 4 mg IV Q4H PRN PRN Reason: NAUSEA / VOMITING Last Admin: 01/23/24 12:07 Dose: 4 mg Ondansetron HCl (Ondansetron 4 Mg/2 Ml Vial) 8 mg IV BID PRN PRN Reason: NAUSEA / VOMITING Last Admin: 01/24/24 10:26 Dose: 8 mg Lab Results (last 24 hrs) 01/24/24 06:22: Serum Osmolality 284 01/24/24 06:22: Sodium 138, Potassium 3.5, Chloride 108 H, Carbon Dioxide 25, Anion Gap 8.5, BUN 7, Creatinine 0.76, Est GFR (CKD-EPI) 90, Glucose 121 H, Uric Acid 4.6, Calcium 8.0 L, Phosphorus 3.1, Magnesium 2.0, Total Bilirubin 0.6, AST 46 H, ALT 49, Alkaline Phosphatase 366 H D, Serum Total Protein 5.1 L, Albumin 2.6 L, Globulin 2.5, Albumin/Globulin Ratio 1.0 L 01/24/24 06:22: WBC 5.50, RBC 3.82 L, Hgb 12.0 D, Hct 35.4 L, MCV 92.7, MCH 31.4, MCHC 33.9, RDW 16.7 H, Plt Count 387, MPV 7.2 L, Neutrophils % 67.6, Lymphocytes % 21.2, Monocytes % 10.2, Eosinophils % 0.5, Basophils % 0.5, Absolute Neutrophils 3.7, Absolute Lymphocytes 1.2, Absolute Monocytes 0.6, Absolute Eosinophils 0.0, Absolute Basophils 0.0 01/24/24 05:15: Urine Color Light-yellow, Urine Clarity Extremely turbid H, Urine pH 7.0, Ur Specific [place] 1.009, Glucose (UA)(Auto) Negative, Urine Ketones 2+ H, Urine Blood 1+ H, Urine Nitrite Negative, Urine Bilirubin Negative, Urine Urobilinogen Normal, Ur Leukocyte Esterase 75 H, Urine RBC <5, Urine WBC 10-20 H, Urine WBC Clumps Rare, Ur Squamous Epith Cells <5, U Non- Squamous Epi Cells <5, Urine Bacteria <20, Urine Mucus Slight, Urine Culture Reflexed Reflexed, Urine Total Protein Trace H 01/24/24 05:15: Urine Osmolality 278 01/24/24 05:15: Urine Creatinine 36.0 01/24/24 05:15: Ur Random Sodium 69, Ur Random Potassium 13.0 L, Ur Random Chloride 58 H Assessment/ Plan: Nephrology No dyspnea No chest pain Persistent nausea with abdominal pain No acute events overnight Vitals, medications, blood work and imaging reviewed in the chart General: Oriented x3, Cooperative, Moderate distress HEENT: Atraumatic Neck: Supple Respiratory: Clear to auscultation bilaterally Cardiovascular: No edema Gastrointestinal: Non-distended Musculoskeletal: No clubbing, No contractures Integumentary: No rashes, No cyanosis Neurological: Normal speech Laboratory Data (last 24 hrs) 01/22/24 01/22/24 12:40 12:40 WBC 6.70 Hgb 14.2 Hct 43.5 Plt Count 472 H Sodium 130 L Potassium 3.7 BUN 12 Creatinine 1.13 H Glucose 87 Magnesium 2.3 Total Bilirubin 0.9 AST 420 H ALT 95 H Alkaline Phosphatase 544 H Imagings Data: EXAM DESCRIPTION: CTAbdomen Pelvis Wo Contrast - 01/22/2024 5:39 pm CLINICAL HISTORY: elevated liver enzymes COMPARISON: Abdomen Pelvis W Contrast dated 08/23/2023; Abdomen Pelvis W Contrast dated 07/19/2023; Abdomen Pelvis W Contrast dated 04/28/2023; Abdomen Pelvis W Contrast dated 06/25/2019 TECHNIQUE: CT of the abdomen and pelvis was performed. All CT scans are performed using dose optimization technique as appropriate and may include automated exposure control or mA/KV adjustment according to patient size. FINDINGS: Lower chest: No acute abnormality. Liver: Hepatic steatosis. No focal mass. Mild intrahepatic biliary duct dilatation. Biliary: Cholecystectomy. Extrahepatic biliary duct dilatation may be related to the postcholecystectomy state. Common bile duct measures 11 millimeters. This is similar. Stomach: Gastric bypass. Duodenum: No significant focal abnormality. Pancreas: No significant abnormality. Spleen: No significant abnormality. Adrenal: No suspicious lesions. Kidney/ureter: No hydronephrosis. No renal calculi. Retroperitoneum: No retroperitoneal adenopathy. Vascular: No aneurysm. Bowel: Large volume of formed stool within the ascending and proximal transverse colon.. Peritoneum: No ascites or free air. Bladder: Distended bladder. Reproductive: Hysterectomy. Bones: No acute fracture. Grade 2 anterolisthesis of L4 on L5 . Other: n/a IMPRESSION: 1. Cholecystectomy with similar intra and extrahepatic biliary duct dilatation compared 08/23/2023. No new findings to explain reported elevated liver enzymes. MRCP/ERCP could further evaluate biliary ductal dilatation if clinically indicated. 2. Large volume of stool in the ascending and proximal transverse colon. No bowel obstruction. EXAM DESCRIPTION: CT - Head Brain Wo Cont - 01/22/2024 12:47 pm CLINICAL HISTORY: vertigo COMPARISON: Head angio dated 01/03/2024; Head Brain Wo Cont dated 10/18/2023 TECHNIQUE: All CT scans are performed using dose optimization technique as appropriate and may include automated exposure control or mA/KV adjustment according to patient size. FINDINGS: No intracranial hemorrhage, hydrocephalus or extra-axial fluid collection.No areas of brain edema or evidence of midline shift. The paranasal sinuses and mastoids are clear. The calvarium is intact. IMPRESSION: No acute intracranial abnormality. Conclusions/Impression: Hyponatremia, improving -Continue IVF RTA Metabolic Acidosis Hypokalemia -Continue IV bicarb -Continue Amiloride -Replete potassium as ordered -Autoimmune abs pending Hypophosphatemia -Replete prn Transaminitis -Autoimmune abs Intractable N/V with associated vertigo -Continue IVF -Zofran prn -Reglan prn
[2024-01-25] MEDS: ZOLPIDEM TARTRATE 10 MG TABLET PO ONE (02:12)
[2024-01-25] MEDS: D5W 1,000 ML IV ONE (05:59)
[2024-01-25 09:39] LABS: Absolute Eosinophils 0.1 K/uL (0-0.5); Absolute Lymphocytes (CBC) 1.4 K/uL (0.7-4.9); Absolute Monocytes 0.6 K/uL (0.1-1.3); Absolute Neutrophil 3.6 K/uL (1.8-8.0); Basophils % 0.3 % (0-1.3); Hematocrit 36.1 % (36.0-45.0); Lymphocytes % 24.7 % (15.3-44.8); MCH 30.7 pg (27.0-35.0); MCHC 33.3 g/dL (32.0-36.0); MCV 92.2 fL (80-100); MPV 7.8 fL (7.6-11.3); Monocytes % 11.2 % (3.3-12.3); Neutrophils % 62.8 % (41.7-73.7); Platelets 393 thou/uL (152-406); RBC Red Blood Cell Count 3.91 M/uL (3.86-4.86); Red Cell Distribution Width 16.4 % (12.1-15.2)
[2024-01-25] MEDS: Mupirocin NASAL 2 APPL/1 GM TUBE NAS SCH (09:39)
[2024-01-25 10:01] LABS: Albumin 2.7 g/dL (3.4-5.0); Anion Gap 7.7 mEq/L (5.0-15.0); Bilirubin Total 0.7 mg/dL (0.2-1.0); Globulin 2.6 g/dL (2.3-3.5); Magnesium 2.1 mg/dL (1.6-2.4); Phosphorus 2.8 mg/dL (2.5-4.9); Potassium 2.7 mEq/L (3.5-5.1); Protein, Total 5.3 g/dL (6.4-8.2)
[2024-01-25] MEDS: POTASSIUM 25 MEQ EFFERV TAB PO ONE (10:28)
--- NOTE | 2024-01-25 11:52 | P.PN ---
Date of Service: 01/25/24 Subjective Patient reports slow improvement in her vertigo symptoms Still having symptoms when moving her head On exam noted to have significant abdominal pain-reports she feels as when she has constipation Denies having a bowel movement since he been here ROS 10 point ROS as noted above, otherwise negative Physical Exam General: AAOx3, uncomfortable HEENT: Atraumatic, Normocephalic Neck: Supple, JVD not distended Respiratory: Clear to auscultation bilaterally, Normal air movement Cardiovascular: No edema, Normal pulses, RRR, Normal S1 S2 Capillary refill: <2 Seconds Gastrointestinal: Hypoactive bowel sounds, mild generalized abdominal tenderness Musculoskeletal: No swelling Integumentary: No rashes Neurological: Normal speech, Normal tone Vitals Reviewed Problem list Intractable vertigo causing frequent falls History of migraines Metobolic acidosis Hypokalemia Transaminitis Hyponatremia Constipation History of bipolar disorder History of chronic back pain History of bowel obstruction/IBS History of fibromyalgia History hypertension Assessment and Plan Intractable vertigo causing frequent falls History of migraines CT/MRI brain negative for acute findings Neurology following, recommended increased dose of Zofran Vertigo seems to be improving slowly, still with episodes when moving head PT consult Metobolic acidosis Hypokalemia Hyponatremia Acidosis improved Continue IV fluids, nephrology following Monitor chemistry daily Potassium very low today-repleted recheck potassium this evening Transaminitis LFTs continue to improve Still with lower abdominal pain, mild tenderness In the right upper quadrant/epigastric tenderness Monitor LFTs daily, low threshold for additional workup including possible MRCP Constipation Still no BM after suppository/enema/miralax will re evaluate this afternoon as enema was early this morning consider additional stool softeners/laxatives History of bipolar disorder History of chronic back pain History of bowel obstruction/IBS History of fibromyalgia History hypertension Continue home medications DVT PPx heparin Full code LOS 2 days
[2024-01-25] MEDS: KCL 20 MEQ/100 mL IVPB 20 MEQ/100 ML BAG IV SCH (12:12)
[2024-01-25] MEDS: MORPHINE 4 MG/ML SYR IV PRN (12:23)
--- NOTE | 2024-01-25 12:23 | P.PN ---
Nephrology note (S) Still reporting abd pain, constipation, feeling poorly, curled up in bed. Latest labs discussed in detail (O) Vitals reviewed in the EMR General: Alert, In no apparent distress, Cooperative HEENT: Atraumatic, Normocephalic Neck: Supple Respiratory: Clear to auscultation bilaterally, Normal air movement Cardiovascular: Regular rate/rhythm, Normal S1 S2 Gastrointestinal: Soft and benign, Non-distended, No tenderness, No guarding Musculoskeletal: No sig swelling, No contractures Integumentary: No rashes, No tenderness/swelling Neurological: Normal speech, Normal tone Laboratory Data (last 24 hrs) Reviewed in the EMR Conclusions/Impression: A/P) 1. Recurrent, severe hypokalemia that is multifactorial but in the setting of hyperchloremic metab acidosis and alkaline urine pH > 5.5 on admission raised prev and again on this admission for the possibility of distal Type 1 RTA. Pt had prev long taken NSAIDs and there are rare reports of NSAIDs associated RTA. Urine AG positive here. 2. TTKG > 3 does support an element of renal wasting. Pt on K sparing agent, ordered PO KCL and will switch IVF to NS + KCL 3. Hyperchloremic metab acidosis as mentioned above, bicarb deficit resolved, stop bicarb drip, pt alkalotic this AM. IVF changed to NS. As OP, can resume sodium bicarb supplementation 4. No reports of kidney stones on CT. 5. Recurrent N/V/constipation/abd pain -management per IM. Jose Lindo MD, DAVID
[2024-01-25] MEDS ORDERED: NA CHLORIDE 0.9% 1,000 ML IV SCH ×2 (13:00)
[2024-01-25] MEDS: POTASSIUM CL SA 10 MEQ TAB PO ONE (13:13)
[2024-01-25 14:00] LABS: Rheumatoid Factor NEG (NEG)
[2024-01-25] MEDS: LORazepam 2 MG/ML VIAL IV ONE (14:00)
[2024-01-25] MEDS: NS KCL 20MEQ 20 MEQ/1,000 ML BAG IV SCH (14:01)
[2024-01-25 14:42] VITALS: O2SAT 96
--- NOTE | 2024-01-25 20:14 | RAD REPORT ---
EXAM DESCRIPTION: RAD - Abdomen 1 View (KUB) - 01/25/2024 6:21 pm CLINICAL HISTORY: eval for ileus/sbo COMPARISON: ABDOMEN 1 VIEW KUB dated 09/06/2014; ABDOMEN 1 VIEW KUB dated 04/26/2013; Abdomen Pelvis Wo Contrast dated 01/22/2024 TECHNIQUE: Single AP view of the abdomen. FINDINGS: No air-fluid levels, free air, or pneumatosis. Mild gaseous distention of small and large bowel in the the left hemiabdomen, with the degree of small-bowel distention by partially improved si nce the prior CT. Moderate to large volume stool retention in the ascending colon No suspicious calci fications. No significant bony abnormality. IMPRESSION: Improving small-bowel distention predominantly in the left hemiabdomen, suggesting impro ving ileus.
[2024-01-25] MEDS: LACTULOSE 20 GM/30 ML UCUP PO ONE (20:25)
[2024-01-25] MEDS: MORPHINE 2 MG/ML SYR IV PRN (20:25)
[2024-01-25] MEDS: ZOLPIDEM TARTRATE 10 MG TABLET PO PRN (21:56)
[2024-01-26 05:03] LABS: Absolute Eosinophils 0.2 K/uL (0-0.5); Absolute Monocytes 0.5 K/uL (0.1-1.3); Absolute Neutrophil 2.3 K/uL (1.8-8.0); Basophils % 0.2 % (0-1.3); Eosinophils % 3.9 % (0-4.4); Hematocrit 33.8 % (36.0-45.0); Hemoglobin 11.3 g/dL (12.0-15.0); Lymphocytes % 39.3 % (15.3-44.8); MCH 31.2 pg (27.0-35.0); MCHC 33.5 g/dL (32.0-36.0); MCV 93.2 fL (80-100); MPV 7.4 fL (7.6-11.3); Monocytes % 10.6 % (3.3-12.3); Nucleated Red Blood Cells % 0.2 % (0-0); Platelets 379 thou/uL (152-406); RBC Red Blood Cell Count 3.63 M/uL (3.86-4.86); Red Cell Distribution Width 17.4 % (12.1-15.2)
[2024-01-26 05:26] LABS: ALT/SGPT 30 U/L (13-56); AST/SGOT 21 U/L (15-37); Albumin 2.5 g/dL (3.4-5.0); Albumin/Globulin Ratio 1.1 (1.1-1.8); Alkaline Phosphatase 269 U/L (45-117); Anion Gap 6.9 mEq/L (5.0-15.0); Bicarbonate 30 mEq/L (21-32); Bilirubin Total 0.4 mg/dL (0.2-1.0); Globulin 2.3 g/dL (2.3-3.5); Glomerular Filtration Rate 96 ml/min (=/>90); Glucose Level 101 mg/dL (74-106); Magnesium 2.3 mg/dL (1.6-2.4); Phosphorus 2.2 mg/dL (2.5-4.9); Potassium 4.9 mEq/L (3.5-5.1); Protein, Total 4.8 g/dL (6.4-8.2); Sodium Level 143 mEq/L (136-145)
[2024-01-26 05:28] LABS: BUN Blood Urea Nitrogen < 3 mg/dL (7-18)
[2024-01-26] MEDS: LEVOTHYROXINE SOD 0.05 MG TABLET PO SCH (06:17)
[2024-01-26] MEDS ORDERED: LORAZEPAM 0.5 MG TABLET PO PRN (06:31)
[2024-01-26] MEDS ORDERED: SODIUM PHOSPHATE 20 MM in NA CHLORIDE 0.9% 250 ML IV SCH (09:00)
[2024-01-26] MEDS: LACTULOSE 20 GM/30 ML UCUP PO SCH (09:55)
[2024-01-26] MEDS: SODIUM BICARB 325 MG TAB PO SCH (09:56)
[2024-01-26] MEDS: PROPRANOLOL HCL 10 MG TAB PO SCH (09:56)
[2024-01-26] MEDS: GABAPENTIN 300 MG CAP PO SCH (10:01)
[2024-01-26] MEDS: CIPROFLOXACIN HCL 500 MG TAB PO SCH (10:01)
[2024-01-26] MEDS: VENLAFAXINE HCL XR 75 MG CAP PO SCH (10:02)
[2024-01-26] MEDS: SODIUM PHOSPHATE 20 MM in NA CHLORIDE 0.9% 250 ML IV ONE (13:54)
[2024-01-26] MEDS: CYCLOBENZAPRINE 10 MG TAB PO SCH (16:10)
--- NOTE | 2024-01-26 16:45 | EKG ---
Test Date: 2024-01-25 Test Time: 12:11:08 Direct Service Professional: KAREEN MEASUREMENT RESULTS: Intervals: Rate: 118 MI: 120 QRSD: 80 QT: 354 QTc: 496 [place]: P: 79 MI: 120 QRS: -57 T: 47 INTERPRETIVE STATEMENTS: Sinus tachycardia Left anterior fascicular block Nonspecific ST and T wave abnormality Abnormal ECG Compared to ECG 01/22/2024 12:37:41 Left anterior fascicular block now present ST (T wave) deviation now present Sinus rhythm no longer present Left-axis deviation no longer present Prolonged QT interval no longer present Electronically Signed On 01-26-24 16:41:57 CDT by Lee Braga
--- NOTE | 2024-01-26 17:03 | EKG ---
Test Date: 2024-01-22 Test Time: 12:37:41 Embedded Hardware Engineer: DIANN MEASUREMENT RESULTS: Intervals: Rate: 69 SC: 142 QRSD: 98 QT: 458 QTc: 490 [place]: P: 70 SC: 142 QRS: -42 T: 20 INTERPRETIVE STATEMENTS: Normal sinus rhythm Left axis deviation Prolonged QT Abnormal ECG Compared to ECG 10/18/2023 01:06:56 Left-axis deviation now present Left anterior fascicular block no longer present Electronically Signed On 01-26-24 16:47:27 CDT by Lee Braga
--- NOTE | 2024-01-26 17:28 | P.DS ---
Admission Date: 01/24/24 Discharge Date: 01/26/24 Disposition: ROUTINE DISCHARGE Discharge Condition: GOOD Reason for Admission: intractable veritgo Consultations: Nephrology-Dr. Lindo Brief History of Present Illness: Janice Bosch is a 58 year old female with Pmhx vertigo, Bipolar disorder, bowel obstruction, Hypertension, chronic back pain, IBS, Migraines, Hypertension, Fibromyalgia, Bipolar disorder, and bowel obstruction, who presents to the ED with chief complaint of nausea, vomiting, and vertigo for the past 3 days. She reports this vertigo episode is worse than her typical vertigo Hospital Course: Problem list Intractable vertigo causing frequent falls History of migraines Metobolic acidosis Hypokalemia Transaminitis Hyponatremia Constipation History of bipolar disorder History of chronic back pain History of bowel obstruction/IBS History of fibromyalgia History hypertension Patient was admitted to the hospital for vertigo, falls, metabolic acidosis, abdominal pain/constipation. She was treated with IV bicarb and had resolution of her acidosis, her vertigo was managed with Zofran, meclizine had significant improvement. She is able to ambulate well with physical therapy today. She was seen by her nephrology group who recommended resumption of her dose of amiloride 2.5 mg daily as well as sodium bicarbonate 650 mill equivalents twice daily and follow-up outpatient. Her hospital course was complicated with acute on chronic constipation, she was given MiraLAX, enemas, lactulose and was finally able to have multiple bowel movements today and is feeling better. Of note patient's LFTs were elevated on admission with AST of 420 ALT of 95 and alk phos of 544, these have trended down on day of admission her AST is 46, ALT 49 and alk phos 366 Her urine culture did return with Klebsiella pneumoniae, prescription will be sent for cefpodoxime to her pharmacy to treat her urinary tract infection. Continue other home medications as prescribed Please follow-up with nephrologyDr. Lindo in the next 1 to 2 weeks Please also follow-up with Dr. Greenfield with GI for your ongoing GI issues Vital Signs/Physical Exam: Temp Pulse Resp BP Pulse Ox 97.2 F 77 18 138/76 100 01/26/24 16:00 01/26/24 16:00 01/26/24 16:00 01/26/24 16:00 01/26/24 16:00 General: Alert, In no apparent distress, Oriented x3 HEENT: Atraumatic, PERRLA Neck: Supple, JVD not distended Respiratory: Clear to auscultation bilaterally, Normal air movement Cardiovascular: Regular rate/rhythm, Normal S1 S2 Gastrointestinal: Normal bowel sounds, No tenderness Musculoskeletal: No tenderness Integumentary: No rashes Neurological: Normal speech, Normal tone, Normal affect Laboratory Data at Discharge: WBC 5.00 thou/uL (4.3-10.9) 01/26/24 04:41 Hgb 11.3 g/dL (12.0-15.0) L 01/26/24 04:41 Hct 33.8 % (36.0-45.0) L 01/26/24 04:41 Plt Count 379 thou/uL (152-406) 01/26/24 04:41 Sodium 143 mEq/L (136-145) 01/26/24 04:41 Potassium 4.9 mEq/L (3.5-5.1) 01/26/24 04:41 BUN < 3 mg/dL (7-18) L 01/26/24 04:41 Creatinine 0.72 mg/dL (0.55-1.02) 01/26/24 04:41 Glucose 101 mg/dL (74-106) 01/26/24 04:41 Uric Acid 4.6 mg/dL (2.6-6.0) 01/24/24 06:22 Phosphorus 2.2 mg/dL (2.5-4.9) L 01/26/24 04:41 Magnesium 2.3 mg/dL (1.6-2.4) 01/26/24 04:41 Total Bilirubin 0.4 mg/dL (0.2-1.0) 01/26/24 04:41 AST 21 U/L (15-37) 01/26/24 04:41 ALT 30 U/L (13-56) 01/26/24 04:41 Alkaline Phosphatase 269 U/L (45-117) H 01/26/24 04:41 Triglycerides 121 mg/dL (<150) 01/23/24 05:20 Cholesterol 139 mg/dL (<200) 01/23/24 05:20 HDL Cholesterol 46 mg/dL (40-60) 01/23/24 05:20 Cholesterol/HDL Ratio 3.02 01/23/24 05:20 Home Medications: Tizanidine [Zanaflex*] 4 mg PO TID 07/21/20 LORazepam [Ativan*] 1 mg PO BID PRN 11/17/22 Levothyroxine [Synthroid*] 50 mcg PO [id number] 01/04/23 Pantoprazole [Protonix Tab*] 40 mg PO BEDTIME 01/04/23 Propranolol HCl 20 mg PO BID 01/04/23 Cholecalciferol (Vitamin D3) [Vitamin D3] 5,000 unit PO DAILY 01/05/23 Hydrocodone 10/APAP 325 [[place] 10/325*] 1 tab PO Q6HP PRN 04/13/23 Meclizine HCl [Antivert] 25 mg PO Q8HP PRN 04/13/23 Docusate [Colace Cap*] 100 mg PO BID 04/24/23 Mecobalamin [B12 Active] 3,000 mcg PO DAILY 04/24/23 Gabapentin 300 mg PO TID #90 tab 04/26/23 Polyethylene Glycol 3350 [Miralax] 17 gm PO DAILY #30 packet 07/22/23 Lactulose 20 gm PO BID 08/23/23 Zolpidem Tartrate [Ambien] 10 mg PO BEDTIME PRN 08/23/23 Amiloride HCl 2.5 mg PO DAILY 30 Days #30 08/27/23 Na Bicarb Tab [Sodium Bicarb 325 MG Tab*] 650 mg PO DAILY 30 Days #30 tab 08/27/23 Venlafaxine HCl [Venlafaxine HCl ER] 225 mg PO DAILY 01/22/24 Cefpodoxime Proxetil [Vantin] 200 mg PO BID 5 Days #10 tab 01/26/24 Lamotrigine [Lamictal] 150 mg PO DAILY 01/26/24 Sodium Bicarbonate 650 mg PO BID #60 tab 01/26/24 lamoTRIgine [Lamictal] 200 mg PO BEDTIME 01/26/24 New Medications: Sodium Bicarbonate 650 mg PO BID #60 tab Cefpodoxime Proxetil [Vantin] 200 mg PO BID 5 Days #10 tab Physician Discharge Instructions: Patient was admitted to the hospital for vertigo, falls, metabolic acidosis, abdominal pain/constipation. She was treated with IV bicarb and had resolution of her acidosis, her vertigo was managed with Zofran, meclizine had significant improvement. She is able to ambulate well with physical therapy today. She was seen by her nephrology group who recommended resumption of her dose of amiloride 2.5 mg daily as well as sodium bicarbonate 650 mill equivalents twice daily and follow-up outpatient. Her hospital course was complicated with acute on chronic constipation, she was given MiraLAX, enemas, lactulose and was finally able to have multiple bowel movements today and is feeling better. Of note patient's LFTs were elevated on admission with AST of 420 ALT of 95 and alk phos of 544, these have trended down on day of admission her AST is 46, ALT 49 and alk phos 366 Her urine culture did return with Klebsiella pneumoniae, prescription will be sent for cefpodoxime to her pharmacy to treat her urinary tract infection. Continue other home medications as prescribed Please follow-up with nephrologyDrSadie Lindo in the next 1 to 2 weeks Please also follow-up with Dr. Greenfield with GI for your ongoing GI issues Diet: Regular Activity: Fall precautions Followup: Jose Lindo [ACTIVE - CAN ADMIT] - 1-2 Weeks Annemarie Richter MD [Primary Care Provider] - 1-2 Weeks Time spent managing pt's care (in minutes): 35
[2024-01-26 17:38] VITALS: BP 138/76; TEMP 97.2
[2024-01-26] MEDS ORDERED: OLANZapine 10 MG TABLET PO SCH (21:00)
[2024-01-26] MEDS ORDERED: lamoTRIgine 150 MG TAB PO SCH (21:00)
[2024-01-26] MEDS ORDERED: PRIMIDONE 50 MG TAB PO SCH (21:00)
[2024-01-26] MEDS ORDERED: PANTOPRAZOLE 40MG TABLET PO SCH (21:00)
[2024-01-26] MEDS ORDERED: TIZANIDINE 4 MG TABLET PO SCH (21:00)
[2024-01-28] MEDS ORDERED: AMILORIDE HCL 5 MG TABLET PO SCH (09:00)
[2024-01-28] MEDS ORDERED: SODIUM BICARB 325 MG TAB PO SCH (09:00)
[2024-01-30 15:33] LABS: Anti-Nuclear Antibody Screen Negative (Negative)
== END 2024-01-26 18:50 | disposition home or self-care (01) | DRG 392 ==
LOC: ER 12:03 → ERHOLD 16:04 → 4TH 16:37 → OBSVTOIN 01-24 10:34
PROVIDERS: ADMIT Internal Medicine; ATTEND Hospitalist
PROC: 0T9B70Z Drainage of Bladder with Drainage Device, Via Natural or Artificial Opening (ICD-10-PCS; 2024-01-23)
PROC: 02HV33Z Insertion of Infusion Device into Superior Vena Cava, Percutaneous Approach (ICD-10-PCS; principal; 2024-01-26)
DX: K59.00 Constipation, unspecified (principal); E87.1 Hypo-osmolality and hyponatremia; E87.20 Acidosis, unspecified; N39.0 Urinary tract infection, site not specified; I10 Essential (primary) hypertension; E87.6 Hypokalemia; M79.7 Fibromyalgia; F31.9 Bipolar disorder, unspecified; G89.29 Other chronic pain; M54.9 Dorsalgia, unspecified; E86.0 Dehydration; E83.39 Other disorders of phosphorus metabolism; N25.89 Other disorders resulting from impaired renal tubular function; K58.9 Irritable bowel syndrome, unspecified; B96.1 Klebsiella pneumoniae [K. pneumoniae] as the cause of diseases classified elsewhere; R29.6 Repeated falls; R42 Dizziness and giddiness; R74.01 Elevation of levels of liver transaminase levels; R79.89 Other specified abnormal findings of blood chemistry; Z88.5 Allergy status to narcotic agent; Z88.8 Allergy status to other drugs, medicaments and biological substances; Z91.81 History of falling; Z90.49 Acquired absence of other specified parts of digestive tract; Z98.84 Bariatric surgery status; Z79.890 Hormone replacement therapy; Z79.899 Other long term (current) drug therapy; Z90.710 Acquired absence of both cervix and uterus
CPT/HCPCS: 36415; 70450; 70553; 74018; 74176; 80048; 80053; 80061; 80076; 81001; 82435; 82570; 83735; 83930; 83935; 84100; 84132; 84300; 84484; 84550; 85025; 86015; 86038; 86430; 87077; 87086; 87088; 87186; 93005; 96361; 96374; 96375; 97116; 97161; 97530; 99285; A9577; G0378; J1644; J2270; J2405; J2765; J3360; J3480; J7030; J7050; J8597